=== PATIENT | male | born 1940 | race African-American/Black ===

== ENCOUNTER 2016-12-03 15:53 | Inpatient (IN) | payer OTHER ==
[2016-12-03 15:58] VITALS: BMI 29.7
--- NOTE | 2016-12-03 16:56 | PDOC ---
Attending Attestation - Resident Resident Name: Amie Kirk - ED Attending Attestation I have performed the following: I have examined & evaluated the patient, The case was reviewed & discussed with the resident, I agree w/resident's findings & plan, Exceptions are as noted - HPI HPI: 76 yo M history CAD presents with B/L leg pain for the past ~1 week. He states that the pain was sudden onset, severe, limiting him from walking. He has been using a rolling chair in his house to get around. He denies weakness. He has numbness to the toes of both feet. Denies any trauma. No low back pain, chest pain, SOB. No prior similar symptoms. - Physicial Exam PE: GENERAL: Awake, alert, and fully oriented, in no acute distress HEAD: No signs of trauma EYES: PERRLA, EOMI, sclera anicteric, conjunctiva clear ENT: Auricles normal inspection, hearing grossly normal, nares patent, oropharynx clear without exudates. Moist mucosa NECK: Normal ROM, supple, no lymphadenopathy, JVD, or masses LUNGS: Breath sounds equal, clear to auscultation bilaterally. No wheezes, and no crackles HEART: Regular rate and rhythm, normal S1 and S2, no murmurs, rubs or gallops ABDOMEN: Soft, nontender, normoactive bowel sounds. No guarding, no rebound. No masses EXTREMITIES: Normal range of motion. Lower legs with no visible hair, +multiple varicosities visualized. Feet are tender to palpation, cool to the touch. Faint B/L DP pulses. No clubbing or cyanosis. No erythema. NEUROLOGICAL: Cranial nerves II through XII grossly intact. Normal speech, normal gait SKIN: Warm, Dry, normal turgor, no rashes or lesions noted. - Medical Decision Making Patient with prior CAD, now presents with severe leg pain, unable to ambulate. Noted to have signs of PVD/PAD. Will obtain labs, venous and arterial dopplers.
--- NOTE | 2016-12-03 17:29 | PDOC ---
History of Present Illness - General Chief Complaint: Pain Stated Complaint: BI-LATERAL LEG PAIN Time Seen by Provider: 12/03/16 16:16 History Source: Patient Exam Limitations: No Limitations - History of Present Illness Initial Comments: 12/03/16 17:29 CC: 5 day h/o B/L LE pain and difficulty ambulating Patient is a 76 y.o. male with a PMH of [place] who presents today c/o of a non- qualifiable, /10 constant B/L LE pain. Patient states he went to change his shoes on Monday, sat down and he felt B/L LE pain that has persisted since that time. Patient states he has been using a dining room chair with wheels to ambulate around his house (patient lives alone) and decided to come to the hospital today because the pain became unbearable. Patient denies any known trauma, shortness of breath, chest pain, nausea, vomiting, abdominal pain. Past surgical: s/p cardiac cath @ [facility] (04/2016) Social: (+) nicotine - 10 cigarettes daily, (+) alcohol 2-3 pints hard liquor monthly; (-) marijuana/cocaine/heroin NKDA Patient does not have established PCP Past History - Past Medical History Allergies/Adverse Reactions: Allergies Allergy/AdvReac Type Severity Reaction Status Date / Time No Known Allergies Allergy Verified 12/03/16 15:54 Home Medications: Ambulatory Orders NK [No Known Home Medication] 12/03/16 Diabetes: (BORDERLINE) HTN: (BORDERLINE) Other medical history: PT DENIES. - Psycho/Social/Smoking Cessation Hx Anxiety: No Suicidal Ideation: No Smoking History: Never smoked Have you smoked in the past 12 months: Yes If you are a former smoker, when did you quit?: 04.06.16 Information on smoking cessation initiated: No Hx Alcohol Use: No Drug/Substance Use Hx: No Substance Use Type: None Review of Systems - Review of Systems Constitutional: No: Chills, Diaphoresis, Fever, Unexplained wgt Loss HEENTM: No: Blurred Vision, Double Vision, Tinnitus, Hearing Loss Respiratory: No: Cough, Orthopnea, Shortness of Breath, Hemoptysis Cardiac (ROS): No: Chest Pain, Edema, Irregular Heart Rate, Lightheadedness, Palpitations ABD/GI: No: Constipated, Diarrhea : No: Burning, Dysuria Musculoskeletal: Yes: Muscle Pain, Muscle Weakness. No: Back Pain, Gout, Joint Pain, Neck Pain Psychiatric: No: Anxiety, Depression All Other Systems: Reviewed and Negative *Physical Exam - Vital Signs Last Vital Signs Temp Pulse Resp BP Pulse Ox 98.1 F 84 18 150/74 98 12/03/16 15:55 12/03/16 15:55 12/03/16 15:55 12/03/16 15:55 12/03/16 15:55 - Physical Exam General Appearance: Yes: Nourished, Obese HEENT: positive: EOMI, ESTEPHANIE Neck: positive: Trachea midline, Supple Respiratory/Chest: positive: Lungs Clear, Normal Breath Sounds Cardiovascular: positive: Regular Rate, S1, S2, Irregularly Irregular Gastrointestinal/Abdominal: positive: Flat, Soft Extremity: positive: Other (Weak < 2+ pedal pulses B/L; Cool LE B/L ) Integumentary: positive: Cold Neurologic: positive: Fully Oriented, Alert ED Treatment Course - LABORATORY CBC & Chemistry Diagram: 12/03/16 18:45 12/03/16 18:45 Medical Decision Making - Medical Decision Making 12/03/16 22:02 Patient is a 76 y.o. male with a PMH of MN (04/2016) and limited primary care who presents to our ED c/o 5 day h/o B/L LE pain and inability to ambulate. On PE patient's B/L LE were cool to palpation and showed weak pulses. Initial differential included vascular occlusion vs. disc herniation (less likely given no neurological deficit, no spinal tenderness). As patient had a h/o MN, cardiac work-up was also initiated with Troponin at 0.63 and EKG showing HR 98, A fib with poor R wave progression in the anterior chest leads. Arterial DVT revealed (1) R sided occlusion from proximal superficial femoral artery and (2) L sided occlusion from the distal superficial femoral artery. Patient was given a Heparin bolus and subsequent drip and admitted to inpatient medicine service, telemetry floor. *DC/Admit/Observation/Transfer Diagnosis at time of Disposition: Vascular occlusion - Discharge Dispostion Admit: Yes - Attestations Physician Attestion: 12/03/16 22:42 I, Dr. Amie Kirk, attest all medical decision making reflected in this note is under my auspices.
[2016-12-03] MEDS ORDERED: ACETAMINOPHEN 1000 MG/100 ML VIAL (NON FORMULARY) IVPB ONE (17:58)
[2016-12-03 18:52] LABS: BASOPHIL 0.6 % (0-2.0); MCH 30.9 pg (25.7-33.7); MCHC 33.5 g/dl (32.0-35.9); MEAN CELL VOLUME 92.4 fl (80-96); MEAN PLT VOLUME 8.2 fl (7.5-11.1); PLATELET COUNT 375 K/MM3 (134-434); RDW 14.9 % (11.9-15.9); WHITE BLOOD COUNT 10.7 K/mm3 (4.0-10.0)
[2016-12-03 19:18] LABS: ALBUMIN 2.8 g/dl (3.4-5.0); ALK PHOS 75 U/L (45-117); ANION GAP 6 (8-16); BILIRUBIN,TOTAL 0.4 mg/dL (0.2-1.0); CALCIUM 8.7 mg/dL (8.5-10.1); CO2 31 mmol/L (21-32); CREATININE 0.9 mg/dL (0.7-1.3); GLUCOSE,RANDOM 100 mg/dL (74-106); SGOT/AST 17 U/L (15-37); SGPT/ALT 21 U/L (12-78); TOT PROT 7.2 g/dl (6.4-8.2)
[2016-12-03 19:46] LABS: TROPONIN I 0.63 ng/ml (0.00-0.05)
[2016-12-03] MEDS ORDERED: ASPIRIN 325 MG TABLET PO ONE (19:55)
[2016-12-03] MEDS ORDERED: HEPARIN NA (PORCINE) 5,000 UNITS/ML 1ML VIAL SQ ONE (20:45)
[2016-12-03] MEDS ORDERED: ASPIRIN 325 MG TABLET ONE (20:46)
[2016-12-03] MEDS ORDERED: HEPARIN NA (PORCINE) 5,000 UNITS/ML 1ML VIAL ONE (20:50)
[2016-12-03] MEDS ORDERED: HEPARIN NA (PORCINE) 5,000 UNITS/ML 1ML VIAL IVPUSH PRN (21:10)
[2016-12-03] MEDS ORDERED: HEPARIN INFUSION - 500 ML IVPB ONE (22:01)
[2016-12-03] MEDS ORDERED: ACETAMINOPHEN INJECTION 100 ML IVPB ONE (22:01)
[2016-12-03] MEDS: HEPARIN - 25,000 UNIT in SODIUM CHLORIDE 495 ML IV SCH (22:22)
--- NOTE | 2016-12-04 00:02 | HP ---
CHIEF COMPLAINT: R leg pain PCP: Nia HISTORY OF PRESENT ILLNESS: Pt is a 76M with PMH ischemic cardiomyopathy (moderate global hypokinesis & EF 38% by echo), cardiac cath, afib who presents to ED with constant 10/10 nonradiating intense pain of the right leg from the knee to the ankle which completely prevents him from walking. Pain is not associated with time of day and has not improved with home or hospital therapy including IV tylenol, and dilaudid. Pt has a recent admission ER course was notable for: (1) leukocytosis, pos trop, LE U/S, CXR, (2)Heparin protocol, IV tylenol, ASA (3) Recent Travel: denies PAST MEDICAL HISTORY: Migraine, Hydrocele, Hernia, ischemic cardiomyopathy (moderate global hypokinesis & EF 38% by echo), cardiac cath, afib PAST SURGICAL HISTORY: as above Social History: Smokin cigarettes/day Alcohol: 1 quart vodka every 2 weeks Drugs: denies Family History: NC in father at 60 Allergies No Known Allergies Allergy (Verified 12/03/16 15:54) HOME MEDICATIONS: Home Medications Medication Instructions Recorded NK [No Known Home Medication] 12/03/16 REVIEW OF SYSTEMS CONSTITUTIONAL: Absent: fever, chills, diaphoresis, generalized weakness, malaise, loss of appetite, weight change HEENT: Absent: rhinorrhea, nasal congestion, throat pain, throat swelling, difficulty swallowing, mouth swelling, ear pain, eye pain, visual changes CARDIOVASCULAR: Absent: chest pain, syncope, palpitations, irregular heart rate, lightheadedness , peripheral edema RESPIRATORY: Absent: cough, shortness of breath, dyspnea with exertion, orthopnea, wheezing, stridor, hemoptysis GASTROINTESTINAL: Absent: abdominal pain, abdominal distension, nausea, vomiting, diarrhea, constipation, melena, hematochezia GENITOURINARY: Absent: dysuria, frequency, urgency, hesitancy, hematuria, flank pain, genital pain MUSCULOSKELETAL: right leg pain Absent: myalgia, arthralgia, joint swelling, back pain, neck pain SKIN: Absent: rash, itching, pallor HEMATOLOGIC/IMMUNOLOGIC: Absent: easy bleeding, easy bruising, lymphadenopathy, frequent infections ENDOCRINE: Absent: unexplained weight gain, unexplained weight loss, heat intolerance, cold intolerance NEUROLOGIC: right big toe tingling Absent: headache, focal weakness or paresthesias, dizziness, unsteady gait, seizure, mental status changes, bladder or bowel incontinence PSYCHIATRIC: Absent: anxiety, depression, suicidal or homicidal ideation, hallucinations. PHYSICAL EXAMINATION Vital Signs - 24 hr 12/03/16 23:38 Temperature 98.3 F Pulse Rate [ 80 Apical] Respiratory 20 Rate Blood Pressure 142/76 [Left Arm] O2 Sat by Pulse 100 Oximetry (%) GENERAL: Awake, alert, and fully oriented, in no acute distress. HEAD: Normal with no signs of trauma. EYES: Pupils equal, round and reactive to light, extraocular movements intact, sclera anicteric, conjunctiva clear. No lid lag. EARS, NOSE, THROAT: nares patent, oropharynx clear without exudates. Moist mucous membranes. NECK: Normal range of motion, supple without lymphadenopathy, JVD, or masses. LUNGS: Breath sounds equal, clear to auscultation bilaterally. No wheezes, and no crackles. No accessory muscle use. HEART: Regular rate and rhythm, normal S1 and S2 without murmur, rub or gallop. ABDOMEN: Soft, nontender, not distended, normoactive bowel sounds, no guarding, no rebound, no masses. No hepatomegaly or splenomegaly. MUSCULOSKELETAL: Normal range of motion at all joints. No bony deformities or tenderness. No CVA tenderness. UPPER EXTREMITIES: 2+ pulses, warm, well-perfused. No cyanosis. No clubbing. No peripheral edema. LOWER EXTREMITIES: pain on palpation of RLE. 1+ pulses, cool, slow capillary refill. No calf tenderness. No peripheral edema. NEUROLOGICAL: Cranial nerves II-XII intact. Normal speech. Normal gait. PSYCHIATRIC: Cooperative. Good eye contact. Appropriate mood and affect. SKIN: Warm, dry, normal turgor, no rashes or lesions noted, normal capillary refill. ASSESSMENT/PLAN: Pt is a 76M with PMH ischemic cardiomyopathy (moderate global hypokinesis & EF 38% by echo), cardiac cath, afib who presents to ED with constant 10/10 nonradiating intense pain of the right leg from the knee to the ankle which completely prevents him from walking. #Leg arterial occlusion -cold feet, diminished distal pulses -pending U/S -Heparin -Morphine -ASA -Vascular consult #Afib -Unknown duration -Cardio consult -on AC with Heparin -Echo result from Apr: moderate global hypokinesis, EF 38% #HTN -Diovan #FEN -not on fluid -lytes wnl -chol/fat controlled diet #dispo : admit to inpt tele for afib and vascular disease Kevan Sutherland MD PGY-1 Visit type - Emergency Visit Emergency Visit: No - New Patient This patient is new to me today: No - Critical Care Critical Care patient: No
[2016-12-04] MEDS: morphine CARPU-JECT 4 MG/1 ML DISP.SYRIN IVPUSH PRN ×2 (01:33→07:51)
--- NOTE | 2016-12-04 04:54 | PN ---
Teaching Attending Note Name of Resident: Kevan Sutherland ATTENDING PHYSICIAN STATEMENT I saw and evaluated the patient. I reviewed the resident's note and discussed the case with the resident. I agree with the resident's findings and plan as documented. SUBJECTIVE: 76 year old male that presents to the ED on 12/03/16 c/o inability to ambulate and secondary to right lower extremity pain that has started 2-3 days ago and now has increased in intensity to 10/10 now. It is constant and exacerbated by walking . He denies prior episodes of pain like this before. His medical history is significant for most recent hospitalization in April 2016 due to acute diastolic congestive heart failure and NSTEMI secondary to uncontrolled a flutter. At that time he underwent cardiac SHANE with cardioversion and was planned for discharge on oral anticoagulants due to high CHADS. However patient denies taking anticoagulants at this time. Initial workup during this ER visit revealed decreased LE pulses and dopplers confirmed R sided occlusion from proximal superficial femoral artery + L sided occlusion from the distal superficial femoral artery. Patient was given a Heparin bolus and subsequent drip and admitted to inpatient medicine service, telemetry. PMH A Flutter CHF HTN Smoking PAST SURGICAL HISTORY: SHANE / cardioversion Social History: Smoking: Smoke for 62 years, 1/2 ppd Alcohol: 3-4 x /month, Drugs: pt denies Family History: mother in her late 60s d/t cancer, had asthma father in his 60s, [place] brother young in a fire 2 sisters alive and well Allergies No Known Allergies Allergy (Verified 04/12/16 00:59) OBJECTIVE: Vital Signs Temperature 97.9 F 12/04/16 02:00 Pulse Rate 84 12/04/16 02:00 Respiratory Rate 20 12/04/16 02:00 Blood Pressure 118/75 12/04/16 02:00 O2 Sat by Pulse Oximetry (%) 96 12/04/16 00:24 EARS, NOSE, THROAT: nares patent, oropharynx clear without exudates. Moist mucous membranes. NECK: Normal range of motion, supple without lymphadenopathy, JVD, or masses. LUNGS: Breath sounds equal, clear to auscultation bilaterally. No wheezes, and no crackles. No accessory muscle use. HEART:irregular ABDOMEN: Soft, nontender, not distended, normoactive bowel sounds, no guarding, no rebound, no masses UPPER EXTREMITIES: 2+ pulses, warm, well-perfused. No cyanosis. No clubbing. No peripheral edema. LOWER EXTREMITIES: pain on palpation of RLE. 1+ pulses, cool, slow capillary refill. CBC, BMP 12/03/16 18:45 12/03/16 18:45 EKG - a flutter ECHO - 04/26 - severe LV hypertrophy, moderately reduced systolic function ASSESSMENT AND PLAN: 1. Acute limb ischemia - likely secondary to arterial embolus secondary to ongoing atrial flutter /afib, lack of anticoagulation therapy and possibly formation of an atrial thrombus . Peripheral arterial thrombosis is less likely . - Heparin drip was initiated in ED and will continue - reperfusion per vascular surgery ( was contacted by ER as per ED resident ) will follow - Pain control provided - ECHO 2. NSTEMI / elevated troponin - this is likely to A flutter/possible atrial thrombus however CAD/ischemia can not be excluded completely . Patient has no chest pain . Rate is controlled. There is a very low yield in " trending troponins' as it would not change the management , however it will be ordered per hospital policy . - ECHO to be repeated - cardiology evaluation - heparin drip - telemetry - coreg 3. A flutter / A fib - rate controlled. - Will need lifelong coag ( probable [id number] score between 4-5)
--- NOTE | 2016-12-04 08:17 | PN ---
Progress Note (short form) - Note Progress Note: Chief Complaint: Events noted, notes reviewed, acute onset bilateral leg discomfort with evidence of vascular occlusion, denies any chest pain or dyspnea , atypical atrial flutter/atrial fibrillation noted History of Present Illness: Seen and examined on telemetry. Full consult dictated - Current Medication List Current Medications Aspirin (Ecotrin -) 81 mg PO DAILY [facility] Carvedilol (Coreg -) 6.25 mg PO BID [facility] Heparin Sodium (Porcine) (Heparin -) 5,000 unit IVPUSH PRN PRN PRN Reason: Heparin Heparin Sodium (Porcine) 25, (000 unit/ Sodium Chloride) 500 mls @ 16 mls/hr IV TITR CHELLY; 800 UNIT/HR PRN Reason: Protocol Last Admin: 12/03/16 22:22 Dose: 16 mls/hr Morphine Sulfate (Morphine Injection -) 2 mg IVPUSH Q4H PRN PRN Reason: PAIN Last Admin: 12/04/16 07:51 Dose: 2 mg Valsartan (Diovan -) 80 mg PO DAILY [facility] Review of Systems Constitutional: denies: Chills Cardiovascular: As noted above Respiratory: denies: Cough or Sputum Production Gastrointestinal: denies: Nausea, Vomiting, Diarrhea, Constipation or Abdominal Pain Musculoskeletal: reports: Bilateral Leg Discomfort Neurological: denies: Dizziness or Headache - Objective Vital Signs: Last Vital Signs Temp Pulse Resp BP Pulse Ox 97.6 F 75 20 144/91 96 12/04/16 06:00 12/04/16 06:00 12/04/16 06:00 12/04/16 06:00 12/04/16 00:24 Intake & Output 12/01/16 12/02/16 12/03/16 12/04/16 23:59 23:59 23:59 23:59 Intake Total 112 Balance 112 Weight 225 lb 215 lb 0.8 oz Neck: Supple Negative JVD No Bruit Cardiovascular: S1 S2 Irregularly Irregular Grade 2/6 Systolic Murmur Chest: Clear to A&P Bilaterally Gastrointestinal: Soft Benign Normal Bowel Sounds Ext: No Edema No Palpable Distal Pulses 1+ Bilateral femoral Pulses Labs: CBC, BMP 12/03/16 18:45 Hepatic Panel Total Bilirubin 0.4 mg/dL (0.2-1.0) D 12/03/16 18:45 AST 17 U/L (15-37) D 12/03/16 18:45 ALT 21 U/L (12-78) D 12/03/16 18:45 Alkaline Phosphatase 75 U/L (45-117) D 12/03/16 18:45 Albumin 2.8 g/dl (3.4-5.0) L 12/03/16 18:45 Troponin, BNP 12/03/16 12/04/16 18:45 03:50 Troponin I 0.63 H* D 0.58 H Assessment/Plan ASSESSMENT: 1. Bilateral leg discomfort with evidence of vascular occlusion, most likely embolic disease related to PAF with [id number] score of 6 on Heparin currently , on no therapy at home, poor compliance with therapy administration and medical F/U 2. CAD with evidence of demand ischemic injury, non obstructive CAD on [facility] coronary angiogrpahy angina pectoris 3. LV systolic/diastolic dysfunction related to apical hypertrophic cardio- myopathy, chronic class I-II NYHA classification, compensated/euvolemic 4. Paroxysmal atypical atrial flutter/atrial tachycardia post cardioversion [id number] score of 6, recurrent arrhythmia, will require skilled nursing A/C 5. HTN 6. History of CKD 7. Poor compliance with medical therapy administration and medical F/U 8. Tobacco abuse PLAN: 1. Continue Heparin pending vascular evaluation and intervention and will require skilled nursing A/C with Coumadin or NOAC's considering the above noted presentation and [id number] score 6 2. Continue Carvedilol and titrate as tolerated 3. Continue Diovan and titrate as tolerated 4. Continue ASA 5. Add Lipitor 6. Recommend urgent vascular evaluation Dr. Nathalia Rico contacted and will evaluate the patient for urgent angiography and possible intervention 7. Counselled smoking cessation and abstinence 8. Echocardiography to evaluate LV size and function Discussed in detail with the patient Mabel Rolle MD
[2016-12-04 08:34] LABS: ALBUMIN 2.4 g/dl (3.4-5.0); ALK PHOS 65 U/L (45-117); ANION GAP 10 (8-16); BILIRUBIN,TOTAL 0.5 mg/dL (0.2-1.0); CO2 25 mmol/L (21-32); CREATININE 0.9 mg/dL (0.7-1.3); GLUCOSE,RANDOM 94 mg/dL (74-106); MAGNESIUM 2.1 mg/dL (1.8-2.4); PHOSPHOROUS 4.1 mg/dL (2.5-4.9); SGOT/AST 15 U/L (15-37); SGPT/ALT 17 U/L (12-78); TOT PROT 6.1 g/dl (6.4-8.2)
[2016-12-04] MEDS: ASPIRIN COATED 81 MG TABLET.EC PO SCH (10:51)
[2016-12-04] MEDS: CARVEDILOL 6.25 MG TABLET (FP) PO SCH ×2 (10:51→21:17)
[2016-12-04] MEDS: VALSARTAN 80 MG TABLET (UD) PO SCH (10:51)
--- NOTE | 2016-12-04 11:13 | PN ---
Physical Exam: SUBJECTIVE: Patient seen and examined. He has pain in his right lower leg, but it is less severe. OBJECTIVE: Vital Signs Period Temp Pulse Resp BP Sys/Ariza Pulse Ox Last 24 Hr 97.6 F-98.7 F 75-84 20-20 104-144/59-91 96-100 GENERAL: The patient is awake, alert, and fully oriented, in no acute distress. LUNGS: Breath sounds equal, clear to auscultation bilaterally, no wheezes, no crackles, no accessory muscle use. HEART: Irregularly irregular, (+) 2/6 systolic murmur. ABDOMEN: Soft, nontender, nondistended, normoactive bowel sounds, no guarding, no rebound, no hepatosplenomegaly, no masses. EXTREMITIES: No edema. RLE cool from mid calf distally and right foot is cold. LLE cool from distal calf to foot. PULSES: 1+ femoral B/L. B/L popliteal and B/L DP not palpable. Laboratory Results - last 24 hr 12/04/16 12/04/16 12/04/16 03:50 06:30 10:26 PTT (Actin FS) 32.3 D Sodium 140 Potassium 4.2 Chloride 105 Carbon Dioxide 25 Anion Gap 10 BUN 17 Creatinine 0.9 Creat Clearance w eGFR > 60 Random Glucose 94 Calcium 8.0 L Phosphorus 4.1 D Magnesium 2.1 Total Bilirubin 0.5 D AST 15 ALT 17 Alkaline Phosphatase 65 Troponin I 0.58 H Total Protein 6.1 L Albumin 2.4 L Active Medications Generic Name Dose Route Start Last Admin Trade Name Freq PRN Reason Stop Dose Admin Aspirin 81 mg 12/04/16 10:00 12/04/16 10:51 Ecotrin - PO 81 mg DAILY CHELLY Administration Carvedilol 6.25 mg 12/04/16 10:00 12/04/16 10:51 Coreg - PO 6.25 mg BID CHELLY Administration Heparin Sodium (Porcine) 5,000 unit 12/03/16 21:10 Heparin - IVPUSH PRN PRN Heparin Heparin Sodium (Porcine) 25, 500 mls @ 16 mls/hr 12/03/16 21:15 12/03/16 22:22 000 unit/ Sodium Chloride IV 16 mls/hr TITR CHELLY Administration Protocol 800 UNIT/HR Morphine Sulfate 2 mg 12/03/16 23:29 12/04/16 07:51 Morphine Injection - IVPUSH 2 mg Q4H PRN Administration PAIN Valsartan 80 mg 12/04/16 10:00 12/04/16 10:51 Diovan - PO 80 mg DAILY CHELLY Administration ASSESSMENT/PLAN: This is a 76 year old man with a history of hypertrophic cardiomyopathy, non- obstructive CAD, chronic systolic/diastolic HF, HTN, PAF who presented to the ER with right leg pain. 1. RLE pain secondary to PAD, possible thromboembolic disease - Vascular surgery consult appreciated - Continue heparin IV - CTA of aorta with LE runoff ordered 2. Paroxysmal atrial fibrillation/flutter - Patient now reports he did not start taking Eliquis secondary to ongoing dental work - Continue Coreg, heparin IV - Will need long-term anticoagulation - will hold off on starting oral medication in case surgery is needed 3. CAD, non-obstructive - Continue aspirin, Coreg - Lipitor started 4. Chronic systolic and diastolic heart failure - Stable - Continue Coreg, Diovan 5. Hypertrophic cardiomyopathy 6. HTN - Continue Coreg, Diovan 7. Nicotine dependence - Discussed smoking cessation Visit type - Emergency Visit Emergency Visit: Yes ED Registration Date: 12/03/16 Care time: The patient presented to the Emergency Department on the above date and was hospitalized for further evaluation of their emergent condition. - New Patient This patient is new to me today: Yes Date on this admission: 12/04/16 - Critical Care Critical Care patient: No - Discharge Referral Referred to [facility] Med P.C.: No
--- NOTE | 2016-12-04 11:22 | CONSULT ---
Consult - Past Surgical History Past Surgical History: Yes: Hernia Repair - Alcohol/Substance Use Hx Alcohol Use: Yes (SOCIALLY) History of Substance Use: reports: None - Smoking History Smoking history: Current every day smoker Have you smoked in the past 12 months: Yes Aproximately how many cigarettes per day: 10 If you are a former smoker, when did you quit?: 04.06.16 Home Medications - Allergies Allergies/Adverse Reactions: Allergies Allergy/AdvReac Type Severity Reaction Status Date / Time No Known Allergies Allergy Verified 12/03/16 15:54 - Home Medications Home Medications: Ambulatory Orders NK [No Known Home Medication] 12/03/16 Physical Exam Vital Signs: Vital Signs Temperature 97.6 F 12/04/16 06:00 Pulse Rate 75 12/04/16 06:00 Respiratory Rate 20 12/04/16 06:00 Blood Pressure 144/91 12/04/16 06:00 O2 Sat by Pulse Oximetry (%) 96 12/04/16 00:24 Labs: CBC, BMP 12/04/16 06:30 Assessment/Plan Vascular Surgery Patient is a 76 y.o. male with a PMH of [place] who presented with pain in both legs since last monday. Pt went ahead and placed nury cerda to his legs to make them feel better. He has afib, but does not take any meds for it -- because he has extensive dental work being done. He has a script for eliquis, but he never took it. Pt is a big time smoker - smoking 1/2 a pack a day for 60 years. Past surgical: s/p cardiac cath @ [facility] (04/2016) Social: (+) nicotine - 10 cigarettes daily, (+) alcohol 2-3 pints hard liquor monthly; (-) marijuana/cocaine/heroin NKDA Patient does not have established PCP Past History - Past Medical History Allergies/Adverse Reactions: Allergies Allergy/AdvReac Type Severity Reaction Status Date / Time No Known Allergies Allergy Verified 12/03/16 15:54 Home Medications: Ambulatory Orders NK [No Known Home Medication] 12/03/16 Diabetes: (BORDERLINE) HTN: (BORDERLINE) Other medical history: PT DENIES. - Psycho/Social/Smoking Cessation Hx Anxiety: No Suicidal Ideation: No Smoking History: Never smoked Have you smoked in the past 12 months: Yes If you are a former smoker, when did you quit?: 04.06.16 Information on smoking cessation initiated: No Hx Alcohol Use: No Drug/Substance Use Hx: No Substance Use Type: None PE Head - NC/AT Lung - CTA Bl Heart - RRR abd - soft,nt,nd ext - warm to distal calf, then cool. No mottling. Palpable femoral pulses. Motor and sensory intact in both limbs. A/P Acute on chronic PAD 1. Will order CTA 2. Cont IV heparin. Garrett Rico DO
[2016-12-04] MEDS ORDERED: HEPARIN NA (PORCINE) 5,000 UNITS/ML 1ML VIAL ONE (12:07)
--- NOTE | 2016-12-04 14:32 | CONS ---
DATE OF CONSULTATION: 12/04/2016 Consultation requested by hospitalist. CHIEF COMPLAINT: Bilateral leg discomfort, evaluation of cardiac arrhythmia, elevated troponin I level. A 76-year-old male of descent, with known history of coronary artery disease, nonobstructive coronary artery disease on coronary angiography April 20, 2016, angina pectoris, systolic/diastolic left ventricular dysfunction with chronic class 1 to 2 [place] [employer] classification left ventricular failure, apical hypertrophic cardiomyopathy on the above-noted cardiac catheterization, paroxysmal atypical atrial flutter, atrial tachycardia, post cardioversion, hypertensive cardiovascular disease, chronic kidney disease, who apparently took it upon himself to discontinue all therapies including anticoagulation therapy, who presented to [facility] with 4 to 5 days of bilateral leg discomfort, right greater than the left. Patient reported sudden onset of bilateral leg discomfort as noted above and, in addition, coldness. Patient was unable to ambulate. Upon arrival to the emergency room, patient was noted to have cold legs, right greater than the left, with absent distal pulses. Vascular evaluation included duplex examination, which revealed evidence of arterial occlusion bilaterally. Patient denied any chest discomfort. Patient reports dyspnea with moderate physical exertion. Patient denies any orthopnea, paroxysmal nocturnal dyspnea, or peripheral edema. Patient denies any palpitation, dizziness, lightheadedness, or syncope. Patient, in addition, in the emergency room was noted to have evidence of atrial fibrillation/atypical atrial flutter. PAST MEDICAL HISTORY: Nonobstructive coronary artery disease, angina pectoris, systolic/diastolic left ventricular dysfunction, apical hypertrophic cardiomyopathy with chronic class 1 to 2 [place] [employer] classification left ventricular failure, paroxysmal atypical atrial flutter, atrial tachycardia post cardioversion, CHADS-VASc score of 5 to 6, hypertensive cardiovascular disease, history of chronic kidney disease, hernia repair, hydrocele repair. SOCIAL HISTORY: A smoker. FAMILY HISTORY: Positive coronary artery disease. ALLERGIES: None reported. MEDICAL THERAPY AT HOME: None. As noted above, patient discontinued all therapies. REVIEW OF SYSTEMS: Head and Neck: Denies headache, photophobia, blurring of vision. Respiratory: No cough or sputum production. Cardiovascular: As noted above. Gastrointestinal: Denies nausea, vomiting, diarrhea, abdominal discomfort. Genitourinary: No symptoms reported. Musculoskeletal: Bilateral leg discomfort. PHYSICAL EXAMINATION: Vital Signs: Blood pressure is 144/91 mmHg. Pulse rate is 75 beats per minute, irregularly irregular. Head and Neck: Pupils equal, react to light and accommodation. Extraocular muscles are intact. Anicteric sclerae. Negative JVD. No bruit appreciated. Chest: Clear to auscultation and percussion. Cardiovascular: S1, S2 irregularly irregular. Grade 2/6 systolic apical murmur. Abdomen: Soft, benign. Normoactive bowel sound. Extremities: No edema. No palpable distal pulses. 1+ bilateral femoral pulses. No calf tenderness. EKG reveals atypical atrial flutter, atrial tachycardia, with left axis deviation, poor R-wave progression, and nonspecific interventricular conduction delay. Chest x-ray report was noted. Vascular studies completed. Report not available, but from the emergency room note, evidence of bilateral occlusion. CBC revealed white cell count 10.7, hemoglobin 14.4, platelet count 375. Basic metabolic profile revealed sodium 140, potassium 4.2, BUN 17, creatinine 0.7, glucose 94. CPK 282. Troponin I 0.63, repeat 0.58. ASSESSMENT: 1. Bilateral leg discomfort with evidence of bilateral vascular occlusion, most likely embolic disease related to the above-noted paroxysmal atrial flutter/fibrillation, CHADS-VASc score of 6, currently on heparin therapy, on no therapy at home. Poor compliance with therapy administration and medical followup. 2. Coronary artery disease with evidence of most likely related to the above-noted arrhythmia. History of nonobstructive coronary artery disease on right and left heart cardiac catheterization and coronary angiography, angina pectoris. 3. Left ventricular systolic/diastolic dysfunction, apical hypertrophic cardiomyopathy, with chronic class 1 to 2 [place] [employer] classification left ventricular failure, compensated/euvolemic. 4. Paroxysmal apical atrial flutter, atrial tachycardia, post cardioversion, CHADS-VASc score of 6, recurrent arrhythmia. Patient will require long-term anticoagulation. 5. Hypertensive cardiovascular disease. 6. History of chronic kidney disease. 7. Poor compliance with medical therapy administration and medical followup. 8. History of tobacco abuse. PLAN: 1. Continuation of heparin therapy, pending vascular evaluation and intervention, and will require long-term anticoagulation with Coumadin or new oral anticoagulation agent, considering the above-noted presentation and CHADS-VASc score of 6. 2. Carvedilol and titration of dosage as tolerated. 3. Diovan and titration of dosage as tolerated. 4. Aspirin. 5. Statin therapy. 6. Recommend urgent vascular evaluation. Dr. Nathalia Rico was contacted and spoken to. He will evaluate the patient for urgent angiography and possible intervention. 7. Patient was strongly counseled smoking cessation. 8. Echocardiography for evaluation of left ventricular systolic function. Thank you for the kind referral. TRACY JOSE M.D. [id number]
[2016-12-04] MEDS: HEPARIN NA (PORCINE) 5,000 UNITS/ML 1ML VIAL IVPUSH PRN (20:00)
[2016-12-04] MEDS ORDERED: morphine CARPU-JECT 2 MG/1 ML DISP.SYRIN ONE (20:19)
[2016-12-04] MEDS: morphine CARPU-JECT 2 MG/1 ML DISP.SYRIN IVPUSH PRN (20:26)
--- NOTE | 2016-12-04 20:33 | EKG ---
Test Reason : Blood Pressure : / mmHG Vent. Rate : 098 BPM Atrial Rate : 091 BPM P-R Int : 000 ms QRS Dur : 100 ms QT Int : 368 ms P-R-T Axes : 000 -64 107 degrees QTc Int : 469 ms POOR DATA QUALITY, INTERPRETATION MAY BE ADVERSELY AFFECTED ATRIAL FIBRILLATION LEFT AXIS DEVIATION INFERIOR INFARCT (CITED ON OR BEFORE 12-APR-2016) ANTERIOR INFARCT (CITED ON OR BEFORE 12-APR-2016) ABNORMAL ECG WHEN COMPARED WITH ECG OF 14-APR-2016 11:20, ATRIAL FIBRILLATION HAS REPLACED SINUS RHYTHM QUESTIONABLE CHANGE IN INITIAL FORCES OF LATERAL LEADS NONSPECIFIC T WAVE ABNORMALITY, WORSE IN LATERAL LEADS Confirmed by MILY TROTTER MD ([id number]) on 12/04/2016 8:33:28 PM Referred By: Confirmed By:MILY TROTTER MD
[2016-12-04] MEDS: HEPARIN - 25,000 UNIT in SODIUM CHLORIDE 495 ML IV SCH (21:17)
[2016-12-04] MEDS: ATORVASTATIN CA 40 MG TABLET (FP) PO SCH (21:17)
[2016-12-05] MEDS: morphine CARPU-JECT 2 MG/1 ML DISP.SYRIN IVPUSH PRN ×4 (01:04→20:44)
[2016-12-05] MEDS: HEPARIN - 25,000 UNIT in SODIUM CHLORIDE 495 ML IV SCH ×6 (02:02→23:36)
[2016-12-05] MEDS: HEPARIN NA (PORCINE) 5,000 UNITS/ML 1ML VIAL IVPUSH PRN ×3 (03:18→17:38)
[2016-12-05 07:18] LABS: MCH 30.6 pg (25.7-33.7); MCHC 33.1 g/dl (32.0-35.9); MEAN CELL VOLUME 92.4 fl (80-96); MEAN PLT VOLUME 9.2 fl (7.5-11.1); PLATELET COUNT 303 K/MM3 (134-434); RDW 14.8 % (11.9-15.9)
[2016-12-05 07:44] LABS: ANION GAP 8 (8-16); CALCIUM 7.9 mg/dL (8.5-10.1); CO2 27 mmol/L (21-32); CREATININE 0.8 mg/dL (0.7-1.3); GLUCOSE,RANDOM 90 mg/dL (74-106)
--- NOTE | 2016-12-05 08:52 | PN ---
Progress Note (short form) - Note Progress Note: VAscular Surgery awaiting official cTa read Looking at it - right sfa closed from origin, reconstitutes in tibial arteries. Left sfa closed in its mid portion and reconstitutes in tibial arteries. Will need angiogram, possible open thrombectomy. Garrett Rico DO
[2016-12-05] MEDS: CARVEDILOL 6.25 MG TABLET (FP) PO SCH ×2 (09:30→21:34)
[2016-12-05] MEDS: VALSARTAN 80 MG TABLET (UD) PO SCH (09:30)
--- NOTE | 2016-12-05 10:54 | PN ---
Progress Note, Physician Chief Complaint: Events noted Complains of left lower extremity pain History of Present Illness: Patient was seen and examined. Awake and alert. Chart was reviewed Denies chest pain, SOB or palpitations As outlined regarding lower extremity pain - Current Medication List Current Medications: Active Medications Aspirin (Ecotrin -) 81 mg PO DAILY [facility] Last Admin: 12/04/16 10:51 Dose: 81 mg Atorvastatin Calcium (Lipitor -) 40 mg PO HS [facility] Last Admin: 12/04/16 21:17 Dose: 40 mg Carvedilol (Coreg -) 6.25 mg PO BID [facility] Last Admin: 12/05/16 09:30 Dose: 6.25 mg Heparin Sodium (Porcine) (Heparin -) 5,000 unit IVPUSH PRN PRN PRN Reason: Heparin Last Admin: 12/04/16 12:12 Dose: 5,000 unit Heparin Sodium (Porcine) (Heparin -) 1,000 unit IVPUSH PRN PRN PRN Reason: Heparin Last Admin: 12/05/16 08:36 Dose: 1,000 unit Heparin Sodium (Porcine) 25, (000 unit/ Sodium Chloride) 500 mls @ 16 mls/hr IV TITR CHELLY; 800 UNIT/HR PRN Reason: Protocol Last Admin: 12/05/16 08:36 Dose: 25 mls/hr Morphine Sulfate (Morphine Injection -) 2 mg IVPUSH Q4H PRN PRN Reason: PAIN Last Admin: 12/05/16 08:40 Dose: 2 mg Pneumococcal 13-Valent Conj Vacc (Prevnar 13 Syringe -) 0.5 ml IM .ONCE ONE Stop: 12/05/16 11:01 Valsartan (Diovan -) 80 mg PO DAILY [facility] Last Admin: 12/05/16 09:30 Dose: 80 mg - Objective Vital Signs: Vital Signs Temperature 98.1 F 12/05/16 05:40 Pulse Rate 96 H 12/05/16 05:40 Respiratory Rate 20 12/05/16 05:40 Blood Pressure 125/63 12/05/16 05:40 O2 Sat by Pulse Oximetry (%) 97 12/04/16 21:00 Neck: Yes: Supple Cardiovascular: Yes: Regular Rate and Rhythm, Murmur (2/6 SM), S1, S2 Respiratory: Yes: CTA Bilaterally Gastrointestinal: Yes: Normal Bowel Sounds, Soft. No: Tenderness Extremities: Yes: Calf Tenderness, Cool Edema: No Additional Findings/Remarks: Review of Systems Constitutional: denies: Chills Cardiovascular: As noted above Respiratory: denies: Cough or Sputum Production Gastrointestinal: denies: Nausea, Vomiting, Diarrhea, Constipation or Abdominal Pain Musculoskeletal: reports: Bilateral Leg Discomfort Neurological: denies: Dizziness or Headache Labs: CBC, BMP 12/05/16 05:35 12/05/16 05:35 Problem List - Problems (1) Coronary artery disease Code(s): I25.10 - ATHSCL HEART DISEASE OF [place] CORONARY ARTERY W/O ANG PCTRS (2) Hypertrophic cardiomyopathy Code(s): I42.2 - OTHER HYPERTROPHIC CARDIOMYOPATHY (3) Vascular occlusion Code(s): I99.8 - OTHER DISORDER OF CIRCULATORY SYSTEM (4) Atrial flutter Code(s): I48.92 - UNSPECIFIED ATRIAL FLUTTER Qualifiers: Atrial flutter type: atypical Qualified Code(s): I48.4 - Atypical atrial flutter (5) HTN (hypertension) Code(s): I10 - ESSENTIAL (PRIMARY) HYPERTENSION Qualifiers: Hypertension type: essential hypertension Qualified Code(s): I10 - Essential (primary) hypertension (6) Left ventricular systolic dysfunction Code(s): I51.9 - HEART DISEASE, UNSPECIFIED Assessment/Plan 1. Bilateral leg discomfort with evidence of vascular occlusion (occlusion of SFA bilaterally) likely embolic disease related to PAF with [id number] score of 6 on Heparin currently, on no therapy at home, poor compliance 2. CAD with evidence of demand ischemic injury, non obstructive CAD on coronary angiogrpahy angina pectoris 3. LV systolic/diastolic dysfunction related to apical hypertrophic cardiomyopathy, chronic class I-II NYHA classification, compensated/euvolemic 4. Paroxysmal atypical atrial flutter/atrial tachycardia post cardioversion [id number] score of 6, recurrent arrhythmia, will require mcfp A/C 5. HTN 6. History of CKD 7. Poor compliance with medical therapy administration and medical F/U 8. Tobacco abuse PLAN: 1. Continue Heparin pending vascular evaluation and intervention and will require mcfp A/C with Coumadin or NOAC's considering the above noted presentation and [id number] score 6 2. Further vascular evaluation with angiography as per Vascular Surgery and possible thrombectomy 3. Continue Carvedilol and Diovan and titrate as tolerated 4. Continue ASA 5. Continue Lipitor 6. Counselled smoking cessation and abstinence 7. Echocardiography to evaluate LV size and function Further plans are to follow Eliel Sam MD
[2016-12-05] MEDS ORDERED: PNEUMOC 13-VAL CONJ-DIP CRM/PF 0.5 ML DISP.SYRIN IM ONE (11:00)
[2016-12-05] MEDS: ASPIRIN COATED 81 MG TABLET.EC PO SCH (11:53)
--- NOTE | 2016-12-05 18:18 | PN ---
Physical Exam: SUBJECTIVE: Patient seen and examined, EMR consulted. pt reports that pain is worse is worse today compared to yesterday, and still is located from right knee down to toes. He states that he is unable to walk due to the pain. He denies SOB, chest pain, dizziness, nausea, and emesis. OBJECTIVE: Vital Signs Period Temp Pulse Resp BP Sys/Ariza Pulse Ox Last 24 Hr 98 F-98.9 F 86-109 18-20 98-130/52-86 97-98 GENERAL: The patient is awake, alert, and fully oriented, in mild distress. HEAD: Normal with no signs of trauma. EYES: PERRL, extraocular movements intact, sclera anicteric, conjunctiva clear. No ptosis. ENT: Ears normal, nares patent, oropharynx clear without exudates, moist mucous membranes. NECK: Trachea midline, full range of motion, supple. LUNGS: Breath sounds equal, clear to auscultation bilaterally, no wheezes, no crackles, no accessory muscle use. HEART: Regular rate and rhythm, S1, S2 without murmur, rub or gallop. ABDOMEN: Soft, nontender, nondistended, normoactive bowel sounds, no guarding, no rebound, no hepatosplenomegaly, no masses. EXTREMITIES: right lower leg is colder than left leg. posterior tibial and dorsalis pedis pulses were not palpated in both feet. sensation is intact b/l, motor strength is 4/5 on the right leg, 5/5 on the left leg. Extremely tender to palpation from knee to toes on right leg. NEUROLOGICAL: Cranial nerves II through XII grossly intact. Normal speech, gait not observed. PSYCH: Normal mood, normal affect. Laboratory Results - last 24 hr 12/04/16 12/05/16 12/05/16 17:56 01:40 05:35 WBC 9.0 RBC 4.11 Hgb 12.6 D Hct 38.0 MCV 92.4 MCH 30.6 MCHC 33.1 RDW 14.8 Plt Count 303 MPV 9.2 D PTT (Actin FS) 43.0 H D 43.5 H Sodium Potassium Chloride Carbon Dioxide Anion Gap BUN Creatinine Random Glucose Calcium Troponin I 12/05/16 12/05/16 12/05/16 05:35 05:35 15:10 WBC RBC Hgb Hct MCV MCH MCHC RDW Plt Count MPV PTT (Actin FS) 48.2 H 42.1 H Sodium 139 Potassium 4.5 Chloride 104 Carbon Dioxide 27 Anion Gap 8 BUN 14 Creatinine 0.8 Random Glucose 90 Calcium 7.9 L Troponin I 0.50 H Active Medications Generic Name Dose Route Start Last Admin Trade Name Freq PRN Reason Stop Dose Admin Aspirin 81 mg 12/04/16 10:00 12/05/16 11:53 Ecotrin - PO 81 mg DAILY CHELLY Administration Atorvastatin Calcium 40 mg 12/04/16 22:00 12/04/16 21:17 Lipitor - PO 40 mg HS CHELLY Administration Carvedilol 6.25 mg 12/04/16 10:00 12/05/16 09:30 Coreg - PO 6.25 mg BID CHELLY Administration Heparin Sodium (Porcine) 5,000 unit 12/03/16 21:10 12/04/16 12:12 Heparin - IVPUSH 5,000 unit PRN PRN Administration Heparin Heparin Sodium (Porcine) 1,000 unit 12/04/16 19:54 12/05/16 17:38 Heparin - IVPUSH 1,000 unit PRN PRN Administration Heparin Heparin Sodium (Porcine) 25, 500 mls @ 16 mls/hr 12/03/16 21:15 12/05/16 17:38 000 unit/ Sodium Chloride IV 27 mls/hr TITR CHELLY Administration Protocol 800 UNIT/HR Morphine Sulfate 2 mg 12/04/16 20:20 12/05/16 17:42 Morphine Injection - IVPUSH 2 mg Q4H PRN Administration PAIN Valsartan 80 mg 12/04/16 10:00 12/05/16 09:30 Diovan - PO 80 mg DAILY [facility] Administration ASSESSMENT/PLAN: 76 year old man with a history of hypertrophic cardiomyopathy, non-obstructive CAD, chronic systolic/diastolic HF, HTN, PAF who presented to the ER with right leg pain likely secondary to thromboembolic disease. #RLE pain secondary to PAD, possible thromboembolic disease -CTA of aorta with LE runoff - Vascular surgery consult appreciated, awaiting official CTA read by radiology. Will need angiogram, possible thrombectomy romeo. - Continue heparin IV #Paroxysmal atrial fibrillation/flutter - Patient now reports he did not start taking Eliquis secondary to ongoing dental work -troponin trended down to 0.5 from 0.63 - Continue Coreg 6.25mg PO BID and valsartan 80mg PO qd - Will need long-term anticoagulation - will hold off on starting oral medication in case surgery is needed #CAD, non-obstructive - Continue aspirin 81, Coreg 6.25mg BID, atorvastatin 40mg qd #Chronic systolic and diastolic heart failure - Stable - Continue Coreg 6.25mg PO BID and valsartan 80mg PO qd #Hypertrophic cardiomyopathy -Coreg 6.25mg PO BID and valsartan 80mg PO qd #HTN - Continue Coreg 6.25mg PO BID and valsartan 80mg PO qd #Nicotine dependence - Discussed smoking cessation #FEN/GI -not on fluids -electrolytes wnl #Dispo -pending vascular -- Jono Huynh MD PGY1 Problem List - Problems (1) Coronary artery disease Code(s): I25.10 - ATHSCL HEART DISEASE OF [place] CORONARY ARTERY W/O ANG PCTRS (2) Heart failure Code(s): I50.9 - HEART FAILURE, UNSPECIFIED (3) Hypertrophic cardiomyopathy Code(s): I42.2 - OTHER HYPERTROPHIC CARDIOMYOPATHY (4) Nicotine dependence Code(s): F17.200 - NICOTINE DEPENDENCE, UNSPECIFIED, UNCOMPLICATED Visit type - Emergency Visit Emergency Visit: Yes ED Registration Date: 12/03/16 Care time: The patient presented to the Emergency Department on the above date and was hospitalized for further evaluation of their emergent condition. - New Patient This patient is new to me today: Yes Date on this admission: 12/05/16 - Critical Care Critical Care patient: No
--- NOTE | 2016-12-05 19:53 | PN ---
Teaching Attending Note Name of Resident: Jono Huynh ATTENDING PHYSICIAN STATEMENT I saw and evaluated the patient. I reviewed the resident's note and discussed the case with the resident. I agree with the resident's findings and plan as documented. SUBJECTIVE: no fever or chills, cont to have pain in R LE . no CP or SOB OBJECTIVE: NAD CV: RRR LUngs: CTAB ext: TTP to R cald , cold skin from knee down R > L. DP 0 on R , 1+ on L . nl sensation to light touch, nl range of motion in LE . no erythema A/P This is a 76 year old man with a history of hypertrophic cardiomyopathy, non- obstructive CAD, chronic systolic/diastolic HF, HTN, PAF who presented to the ER with right leg pain 1- RLE pain, due to arterial occlusion ( thrombus vs embolus ) . CTA prelim report withpossible thrombus in R common femoral artery and decreased flow on both sides. - ocnt heparin - NPO after mid night for angiogram and thrmbectomy - case d/w Dr. Rico by team 2- A fib : - cont heparin gtt - needs buttermaker AC, will discuss his options after procedure - cont coreg 3- CAD: cont ASA and statin 4- h/o chronic S/D heart failure . Euvolemic . cont to monitor . cont blanca
--- NOTE | 2016-12-05 20:03 | PN ---
Progress Note (short form) - Note Progress Note: Vascular Surgery Pt seen and examined. CTA still not read offiicially Will plan for open thrombectomy of bl lower ext romeo. Please optimize. Garrett Rico DO
[2016-12-05] MEDS: ATORVASTATIN CA 40 MG TABLET (FP) PO SCH (21:34)
[2016-12-06] MEDS: morphine CARPU-JECT 2 MG/1 ML DISP.SYRIN IVPUSH PRN (01:54)
[2016-12-06 08:22] LABS: MCH 30.6 pg (25.7-33.7); MEAN CELL VOLUME 92.6 fl (80-96); MEAN PLT VOLUME 8.9 fl (7.5-11.1); PLATELET COUNT 344 K/MM3 (134-434); RDW 14.7 % (11.9-15.9)
[2016-12-06] MEDS: HEPARIN NA (PORCINE) 5,000 UNITS/ML 1ML VIAL IVPUSH PRN (09:35)
[2016-12-06] MEDS: HEPARIN - 25,000 UNIT in SODIUM CHLORIDE 495 ML IV SCH (09:35)
[2016-12-06 09:36] LABS: ANION GAP 6 (8-16); CO2 27 mmol/L (21-32); GLUCOSE,RANDOM 80 mg/dL (74-106)
[2016-12-06 09:37] LABS: CREATININE 0.8 mg/dL (0.7-1.3); MAGNESIUM 2.1 mg/dL (1.8-2.4); PHOSPHOROUS 3.5 mg/dL (2.5-4.9)
[2016-12-06] MEDS: CARVEDILOL 6.25 MG TABLET (FP) PO SCH ×2 (09:37→22:44)
[2016-12-06] MEDS: ASPIRIN COATED 81 MG TABLET.EC PO SCH (09:37)
[2016-12-06] MEDS: VALSARTAN 80 MG TABLET (UD) PO SCH (09:37)
[2016-12-06] MEDS ORDERED: HYDROmorphone HCL CARPU-JECT 1 MG/1 ML DISP.SYRIN IVPB ONE (10:20)
--- NOTE | 2016-12-06 11:33 | PN ---
Progress Note, Physician Chief Complaint: Events noted Complains of right lower extremity pain History of Present Illness: Patient was seen and examined. Awake and alert. Chart was reviewed Denies chest pain, SOB or palpitations As outlined regarding lower extremity pain Await angiography - Current Medication List Current Medications: Active Medications Aspirin (Ecotrin -) 81 mg PO DAILY [facility] Last Admin: 12/06/16 09:37 Dose: 81 mg Atorvastatin Calcium (Lipitor -) 40 mg PO HS [facility] Last Admin: 12/05/16 21:34 Dose: 40 mg Carvedilol (Coreg -) 6.25 mg PO BID [facility] Last Admin: 12/06/16 09:37 Dose: 6.25 mg Heparin Sodium (Porcine) (Heparin -) 5,000 unit IVPUSH PRN PRN PRN Reason: Heparin Last Admin: 12/04/16 12:12 Dose: 5,000 unit Heparin Sodium (Porcine) (Heparin -) 1,000 unit IVPUSH PRN PRN PRN Reason: Heparin Last Admin: 12/06/16 09:35 Dose: 1,000 unit Heparin Sodium (Porcine) 25, (000 unit/ Sodium Chloride) 500 mls @ 16 mls/hr IV TITR CHELLY; 800 UNIT/HR PRN Reason: Protocol Last Admin: 12/06/16 09:35 Dose: 29 mls/hr Morphine Sulfate (Morphine Injection -) 2 mg IVPUSH Q4H PRN PRN Reason: PAIN Last Admin: 12/06/16 01:54 Dose: 2 mg Valsartan (Diovan -) 80 mg PO DAILY [facility] Last Admin: 12/06/16 09:37 Dose: 80 mg - Objective Vital Signs: Vital Signs Temperature 98.6 F 12/06/16 09:45 Pulse Rate 80 12/06/16 09:45 Respiratory Rate 18 12/06/16 09:45 Blood Pressure 120/86 12/06/16 09:45 O2 Sat by Pulse Oximetry (%) 96 12/05/16 20:11 Neck: Yes: Supple Cardiovascular: Yes: Regular Rate and Rhythm, S1, S2 Respiratory: Yes: CTA Bilaterally Gastrointestinal: Yes: Normal Bowel Sounds, Soft. No: Tenderness Edema: No Additional Findings/Remarks: Review of Systems Constitutional: denies: Chills Cardiovascular: As noted above Respiratory: denies: Cough or Sputum Production Gastrointestinal: denies: Nausea, Vomiting, Diarrhea, Constipation or Abdominal Pain Musculoskeletal: reports: Bilateral Leg Discomfort Neurological: denies: Dizziness or Headache Labs: CBC, BMP 12/06/16 06:05 12/06/16 06:05 Problem List - Problems (1) Coronary artery disease Code(s): I25.10 - ATHSCL HEART DISEASE OF [place] CORONARY ARTERY W/O ANG PCTRS (2) Hypertrophic cardiomyopathy Code(s): I42.2 - OTHER HYPERTROPHIC CARDIOMYOPATHY (3) Vascular occlusion Code(s): I99.8 - OTHER DISORDER OF CIRCULATORY SYSTEM (4) Atrial flutter Code(s): I48.92 - UNSPECIFIED ATRIAL FLUTTER Qualifiers: Atrial flutter type: atypical Qualified Code(s): I48.4 - Atypical atrial flutter (5) HTN (hypertension) Code(s): I10 - ESSENTIAL (PRIMARY) HYPERTENSION Qualifiers: Hypertension type: essential hypertension Qualified Code(s): I10 - Essential (primary) hypertension (6) Left ventricular systolic dysfunction Code(s): I51.9 - HEART DISEASE, UNSPECIFIED Assessment/Plan 1. Bilateral leg discomfort with evidence of vascular occlusion (occlusion of SFA bilaterally) likely embolic disease related to PAF with [id number] score of 6 on Heparin currently, on no therapy at home, poor compliance 2. CAD with evidence of demand ischemic injury, non obstructive CAD on coronary angiogrpahy angina pectoris 3. LV systolic/diastolic dysfunction related to apical hypertrophic cardiomyopathy, chronic class I-II NYHA classification, compensated/euvolemic. Cannot rule out infiltrative cardiomyopathy 4. Paroxysmal atypical atrial flutter/atrial tachycardia post cardioversion [id number] score of 6, recurrent arrhythmia, will require residential A/C 5. HTN 6. History of CKD 7. Poor compliance with medical therapy administration and medical F/U 8. Tobacco abuse PLAN: 1. Continue Heparin pending vascular evaluation and intervention and will require residential A/C with Coumadin or NOAC considering the above noted presentation and [id number] score 6 2. Further vascular evaluation with angiography as per Vascular Surgery and possible thrombectomy 3. Continue Carvedilol and Diovan and titrate as tolerated 4. Continue ASA 5. Continue Lipitor 6. Counselled smoking cessation and abstinence 7. Echocardiography report reviewed. Further plans are to follow Eliel Sam MD
--- NOTE | 2016-12-06 14:51 | PN ---
Physical Exam: SUBJECTIVE: Patient seen and examined, EMR consulted. Overnight, pt had several episodes of non-sustained V-tach and PVCs, but nurse reports that pt was asymptomatic. Vascular note from yesterday appreciated. Pt still reports the same severity of right leg pain. He denies chest pain, SOB, or any other symptom. OBJECTIVE: Vital Signs Period Temp Pulse Resp BP Sys/Ariza Pulse Ox Last 24 Hr 97.6 F-98.6 F 71-107 18-20 104-129/59-94 96-96 GENERAL: The patient is awake, alert, and fully oriented, in no acute distress. HEAD: Normal with no signs of trauma. EYES: PERRL, extraocular movements intact, sclera anicteric, conjunctiva clear. No ptosis. ENT: Ears normal, nares patent, oropharynx clear without exudates, moist mucous membranes. NECK: Trachea midline, full range of motion, supple. LUNGS: Breath sounds equal, clear to auscultation bilaterally, no wheezes, no crackles, no accessory muscle use. HEART: irregularly irregular, no murmurs, rubs, or gallops ABDOMEN: Soft, nontender, nondistended, normoactive bowel sounds, no guarding, no rebound, no hepatosplenomegaly, no masses. EXTREMITIES: RLE and LLE are warmer compared to yesterday overall. Decreased temperature palpated at mid calf and distal. Sensation and motor strength is intact in both. NEUROLOGICAL: Cranial nerves II through XII grossly intact. Normal speech, gait not observed. PSYCH: Normal mood, normal affect. SKIN: Warm, dry, normal turgor, no rashes or lesions noted Laboratory Results - last 24 hr 12/05/16 12/05/16 12/06/16 15:10 21:54 06:05 WBC 9.0 RBC 4.14 Hgb 12.7 Hct 38.4 MCV 92.6 MCH 30.6 MCHC 33.0 RDW 14.7 Plt Count 344 MPV 8.9 PTT (Actin FS) 42.1 H 70.0 H D Sodium Potassium Chloride Carbon Dioxide Anion Gap BUN Creatinine Random Glucose Calcium Phosphorus Magnesium 12/06/16 12/06/16 06:05 06:05 WBC RBC Hgb Hct MCV MCH MCHC RDW Plt Count MPV PTT (Actin FS) 49.0 H Sodium 138 Potassium 4.7 Chloride 105 Carbon Dioxide 27 Anion Gap 6 L BUN 13 Creatinine 0.8 Random Glucose 80 Calcium 8.0 L Phosphorus 3.5 Magnesium 2.1 Active Medications Generic Name Dose Route Start Last Admin Trade Name Nkechi PRN Reason Stop Dose Admin Aspirin 81 mg 12/04/16 10:00 12/06/16 09:37 Ecotrin - PO 81 mg DAILY [facility] Administration Atorvastatin Calcium 40 mg 12/04/16 22:00 12/05/16 21:34 Lipitor - PO 40 mg HS [facility] Administration Carvedilol 6.25 mg 12/04/16 10:00 12/06/16 09:37 Coreg - PO 6.25 mg BID [facility] Administration Heparin Sodium (Porcine) 5,000 unit 12/03/16 21:10 12/04/16 12:12 Heparin - IVPUSH 5,000 unit PRN PRN Administration Heparin Heparin Sodium (Porcine) 1,000 unit 12/04/16 19:54 12/06/16 09:35 Heparin - IVPUSH 1,000 unit PRN PRN Administration Heparin Heparin Sodium (Porcine) 25, 500 mls @ 16 mls/hr 12/03/16 21:15 12/06/16 09:35 000 unit/ Sodium Chloride IV 29 mls/hr TITR [facility] Administration Protocol 800 UNIT/HR Morphine Sulfate 2 mg 12/04/16 20:20 12/06/16 01:54 Morphine Injection - IVPUSH 2 mg Q4H PRN Administration PAIN Valsartan 80 mg 12/04/16 10:00 12/06/16 09:37 Diovan - PO 80 mg DAILY [facility] Administration Echo: shows severe LVH, severe left atrial enlargement, moderate MR, moderate TR. ASSESSMENT/PLAN: 76 year old man with a history of hypertrophic cardiomyopathy, non-obstructive CAD, chronic systolic/diastolic HF, HTN, PAF who presented to the ER with right leg pain likely secondary to thromboembolic disease. #RLE pain secondary to PAD, possible thromboembolic disease -CTA of aorta with LE runoff - Vascular surgery consult appreciated, awaiting official CTA read by radiology, will need angiogram, pt made NPO last night for thrombectomy today. - Continue heparin IV #Paroxysmal atrial fibrillation/flutter - Patient reported that he did not start taking Eliquis secondary to ongoing dental work -troponin trended down to 0.5 from 0.63 - Continue Coreg 6.25mg PO BID and valsartan 80mg PO qd - Will need long-term anticoagulation - will hold off on starting oral medication until after surgery. #CAD, non-obstructive - Continue aspirin 81, Coreg 6.25mg BID, atorvastatin 40mg qd #Chronic systolic and diastolic heart failure - Stable - Continue Coreg 6.25mg PO BID and valsartan 80mg PO qd #Hypertrophic cardiomyopathy -Coreg 6.25mg PO BID and valsartan 80mg PO qd #HTN - Continue Coreg 6.25mg PO BID and valsartan 80mg PO qd #Nicotine dependence - Discussed smoking cessation #FEN/GI -not on fluids -electrolytes wnl #Dispo -pending thrombectomy by vascular -- Jono Huynh MD PGY1 Problem List - Problems (1) Coronary artery disease Code(s): I25.10 - ATHSCL HEART DISEASE OF [place] CORONARY ARTERY W/O ANG PCTRS (2) Heart failure Code(s): I50.9 - HEART FAILURE, UNSPECIFIED (3) Hypertrophic cardiomyopathy Code(s): I42.2 - OTHER HYPERTROPHIC CARDIOMYOPATHY (4) Nicotine dependence Code(s): F17.200 - NICOTINE DEPENDENCE, UNSPECIFIED, UNCOMPLICATED Visit type - Emergency Visit Emergency Visit: Yes ED Registration Date: 12/03/16 Care time: The patient presented to the Emergency Department on the above date and was hospitalized for further evaluation of their emergent condition. - New Patient This patient is new to me today: No - Critical Care Critical Care patient: No
--- NOTE | 2016-12-06 15:01 | PN ---
Teaching Attending Note Name of Resident: Jono Huynh ATTENDING PHYSICIAN STATEMENT I saw and evaluated the patient. I reviewed the resident's note and discussed the case with the resident. I agree with the resident's findings and plan as documented. SUBJECTIVE: no fever ro chills, LE pain is better compared to yesterday OBJECTIVE: NAD CV: RRR Lungs: CTAB ext: TTP to R calf , warm skin on legs and slightly cold on feet today. DP absent on both sides A/P This is a 76 year old man with a history of hypertrophic cardiomyopathy, non- obstructive CAD, chronic systolic/diastolic HF, HTN, PAF who presented to the ER with right leg pain 1- RLE pain, due to arterial occlusion ( thrombus vs embolus ) . CTA prelim report with possible thrombus in R common femoral artery and decreased flow on both sides. - COnt heparin - angiogram and thrmbectomy today - intermediate AC choice to be d/w pt. will call pharmacy to figure out insurance coverage 2- A fib : - cont heparin gtt - needs technician terminal and repeater AC, will discuss his options after procedure - cont coreg 3- CAD: cont ASA and statin 4- h/o chronic S/D heart failure . Euvolemic . echo reviewed, cont to monitor . cont diovan HLOC
[2016-12-06] MEDS ORDERED: HEPARIN NA (PORCINE) 5,000 UNITS/ML 1ML VIAL ONE ×2 (15:36→18:50)
[2016-12-06] MEDS ORDERED: LIDOCAINE HCL 1%, 10 MG/ML (20ML VIAL) ONE (15:36)
[2016-12-06] MEDS ORDERED: MIDAZOLAM HCL 2 MG/2 ML SINGLE DOSE VIAL ONE ×2 (16:02→16:05)
[2016-12-06] MEDS ORDERED: ceFAZolin SODIUM 1 GM VIAL ONE (16:05)
[2016-12-06] MEDS ORDERED: PROPOFOL 20 ML ONE (16:11)
[2016-12-06] MEDS ORDERED: ceFAZolin SODIUM 1 GM VIAL IVPB ONE (16:20)
[2016-12-06] MEDS ORDERED: PHENYLEPHRINE HCL 10 MG/1 ML SINGLE DOSE VIAL ONE (16:32)
[2016-12-06] MEDS ORDERED: HEPARIN INFUSION - 500 ML IVPB ONE (18:50)
--- NOTE | 2016-12-06 18:52 | OP ---
Operative Note - Note: Operative Date: 12/06/16 Pre-Operative Diagnosis: bilateral lower extremity ischemia Operation: Open thrombectomy bilateral iliac artery, sfa, popliteal artery, tibial artery, with bilateral lower extremity angiogram Findings: embolus bilateral lower ext Embolus sent to pathology Post-Operative Diagnosis: Same as Pre-op Surgeon: Garrett Rico Anesthesia: General Estimated Blood Loss (mls): 200 Operative Report Dictated: Yes
[2016-12-06] MEDS ORDERED: HEPARIN NA (PORCINE) 5,000 UNITS/ML 1ML VIAL IVPUSH PRN ×3 (18:53→18:54)
[2016-12-06] MEDS ORDERED: HEPARIN - 25,000 UNIT in SODIUM CHLORIDE 495 ML IV SCH (19:00)
[2016-12-06] MEDS ORDERED: HYDROmorphone HCL CARPU-JECT 2 MG/1 ML DISP.SYRIN ONE (19:10)
[2016-12-06] MEDS: HYDROmorphone HCL CARPU-JECT 1 MG/1 ML DISP.SYRIN IVPUSH PRN ×4 (19:12→19:42)
[2016-12-06] MEDS ORDERED: morphine CARPU-JECT 2 MG/1 ML DISP.SYRIN IVPUSH PRN (20:01)
[2016-12-06] MEDS ORDERED: HYDROmorphone HCL CARPU-JECT 1 MG/1 ML DISP.SYRIN IVPB PRN ×2 (20:24→20:25)
[2016-12-06] MEDS ORDERED: ATORVASTATIN CA 40 MG TABLET (FP) PO SCH (22:00)
--- NOTE | 2016-12-06 22:07 | CONSULT ---
Consult Consult Specialty:: Pulmonary critical care Referred by:: Dr. Rico Reason for Consultation:: s/p bilateral thrombectomy - History of Present Illness History of Present Illness: 76 year old male with h/o [place] (04/2016), HTN, PAF not on AC who presented to ED on 12/03 ? LE pain and inability to ambulate for the past 5 days. Was found to have bilateral femoral artery occlusion, now s/p bilateral open thrombectomy and angiogram. Admitted to ICU for monitoring. Pt initially presented on 12/03 ? severe LE pain for the past 5 days. As per notes states he was given a prescription for AC (Eliquis) back in april however didnt take it given extensive dental work. Initial work up in ER revealed decreased LE pulses and dopplers confirmed R sided occlusion from proximal superficial femoral artery and L sided occlusion from the distal superficial femoral artery. He was started on heparin drip and admitted to telemetry service with vascular surgery following. Today underwent open thrombectomy of bilateral iliac artery, sfa, popliteal artery, tibial artery with bilateral lower extremity angiogram. He is now admitted to ICU for post-op monitoring. Active Medications Aspirin (Ecotrin -) 81 mg PO DAILY [facility] Atorvastatin Calcium (Lipitor -) 40 mg PO HS [facility] Carvedilol (Coreg -) 6.25 mg PO BID [facility] Heparin Sodium (Porcine) (Heparin -) 5,000 unit IVPUSH PRN PRN PRN Reason: Heparin Last Admin: 12/06/16 19:00 Dose: 5,000 unit Heparin Sodium (Porcine) (Heparin -) 1,000 unit IVPUSH PRN PRN PRN Reason: Heparin Hydromorphone HCl (Dilaudid Injection -) 1 mg IVPB Q6H PRN PRN Reason: PAIN Heparin Sodium (Porcine) 25, (000 unit/ Sodium Chloride) 500 mls @ 20 mls/hr IV TITR CHELLY; 1,000 UNIT/HR PRN Reason: Protocol Valsartan (Diovan -) 80 mg PO DAILY [facility] - Past Medical History Cardio/Vascular: Yes: AFIB, HTN, [place] - Past Surgical History Past Surgical History: Yes: Hernia Repair - Alcohol/Substance Use Hx Alcohol Use: Yes (SOCIALLY) History of Substance Use: reports: None - Smoking History Smoking history: Current every day smoker Have you smoked in the past 12 months: Yes Aproximately how many cigarettes per day: 10 If you are a former smoker, when did you quit?: 12.28.16 Home Medications - Allergies Allergies/Adverse Reactions: Allergies Allergy/AdvReac Type Severity Reaction Status Date / Time No Known Allergies Allergy Verified 12/03/16 15:54 - Home Medications Home Medications: Ambulatory Orders NK [No Known Home Medication] 12/03/16 Physical Exam Vital Signs: Vital Signs Temperature 97.9 F 12/06/16 21:40 Pulse Rate 78 12/06/16 21:40 Respiratory Rate 18 12/06/16 21:51 Blood Pressure 111/62 12/06/16 21:40 O2 Sat by Pulse Oximetry (%) 100 12/06/16 21:51 Cardiovascular: Yes: Pulse Irregular Respiratory: Yes: CTA Bilaterally Gastrointestinal: Yes: Normal Bowel Sounds, Abdomen, Obese Extremities: Yes: Calf Tenderness (Tenderness below the knee), Cool (L cooler than R) Peripheral Pulses WNL: No Neurological: Yes: Alert, Oriented Labs: CBC, BMP 12/06/16 06:05 12/06/16 06:05 Laboratory Results - last 24 hr 12/05/16 12/06/16 12/06/16 21:54 06:05 06:05 WBC 9.0 RBC 4.14 Hgb 12.7 Hct 38.4 MCV 92.6 MCH 30.6 MCHC 33.0 RDW 14.7 Plt Count 344 MPV 8.9 PTT (Actin FS) 70.0 H D 49.0 H Sodium Potassium Chloride Carbon Dioxide Anion Gap BUN Creatinine Random Glucose Calcium Phosphorus Magnesium 12/06/16 06:05 WBC RBC Hgb Hct MCV MCH MCHC RDW Plt Count MPV PTT (Actin FS) Sodium 138 Potassium 4.7 Chloride 105 Carbon Dioxide 27 Anion Gap 6 L BUN 13 Creatinine 0.8 Random Glucose 80 Calcium 8.0 L Phosphorus 3.5 Magnesium 2.1 Problem List - Problems (1) Heart failure Code(s): I50.9 - HEART FAILURE, UNSPECIFIED (2) Hypertrophic cardiomyopathy Code(s): I42.2 - OTHER HYPERTROPHIC CARDIOMYOPATHY (3) Nicotine dependence Code(s): F17.200 - NICOTINE DEPENDENCE, UNSPECIFIED, UNCOMPLICATED (4) Vascular occlusion Code(s): I99.8 - OTHER DISORDER OF CIRCULATORY SYSTEM (5) Atrial flutter Code(s): I48.92 - UNSPECIFIED ATRIAL FLUTTER Qualifiers: Atrial flutter type: atypical Qualified Code(s): I48.4 - Atypical atrial flutter (6) HTN (hypertension) Code(s): I10 - ESSENTIAL (PRIMARY) HYPERTENSION Qualifiers: Hypertension type: essential hypertension Qualified Code(s): I10 - Essential (primary) hypertension (7) NSTEMI (non-ST elevated myocardial infarction) Code(s): I21.4 - NON-ST ELEVATION (NSTEMI) MYOCARDIAL INFARCTION Assessment/Plan Assessment: 76 year old male with h/o [place] (04/2016), HTN, PAF not on AC who presented to ED on 12/03 with LE pain and inability to ambulate for the past 5 days. Was found to have bilateral femoral artery occlusion, now s/p bilateral open thrombectomy and angiogram. Admitted to ICU for monitoring. PLAN: -vascular surgery following -pain meds prn -continue heparin drip -cont aspirin -frequent vascular checks -cont antiHTN meds
[2016-12-07 06:50] LABS: ANION GAP 9 (8-16); CALCIUM 7.7 mg/dL (8.5-10.1); CO2 26 mmol/L (21-32); GLUCOSE,RANDOM 100 mg/dL (74-106)
--- NOTE | 2016-12-07 08:07 | PN ---
Progress Note (short form) - Note Progress Note: POD #1 Alert. Doing well. C/o incisional (groins) tenderness. Pain controlled well via PRN meds. States the pain in his feet has greatly diminished s/p surgery. On Heparin gtt . Denies n/v/f/c, CP or SOB. Last Vital Signs Temp Pulse Resp BP Pulse Ox 98.2 F 84 16 108/78 100 12/07/16 06:00 12/07/16 06:00 12/07/16 06:00 12/07/16 06:00 12/06/16 21:51 CBC, BMP 12/06/16 06:05 12/07/16 05:20 PE Gen: alert. nad. Abd: soft. NT. ND. LE: b/l groin incisions intact. Minimal oozing to rt dressing. No hematoma b/l. Feet/toes warm b/l. Dopplerable PT/DP b/l. Mild edema to LE b/l (most likely from re-perfusion). Problem List - Problems (1) Vascular occlusion Assessment/Plan: POD #1 s/p Open thrombectomy b/l iliac artery, sfa, popliteal artery,tibial artery, with b/l lower extremity angiogram Cont Hep gtt Cont ICU management Downgrade to floor at ICU discretion Code(s): I99.8 - OTHER DISORDER OF CIRCULATORY SYSTEM
--- NOTE | 2016-12-07 08:28 | PN ---
Progress Note, Physician Chief Complaint: Pt. comfortable, pain controlled, no anesthesia complications. - Current Medication List Current Medications: Active Medications Aspirin (Ecotrin -) 81 mg PO DAILY [facility] Atorvastatin Calcium (Lipitor -) 40 mg PO HS [facility] Last Admin: 12/06/16 22:44 Dose: 40 mg Carvedilol (Coreg -) 6.25 mg PO BID [facility]LLY Last Admin: 12/06/16 22:44 Dose: 6.25 mg Heparin Sodium (Porcine) (Heparin -) 5,000 unit IVPUSH PRN PRN PRN Reason: Heparin Last Admin: 12/06/16 19:00 Dose: 5,000 unit Heparin Sodium (Porcine) (Heparin -) 1,000 unit IVPUSH PRN PRN PRN Reason: Heparin Hydromorphone HCl (Dilaudid Injection -) 1 mg IVPB Q6H PRN PRN Reason: PAIN Heparin Sodium (Porcine) 25, (000 unit/ Sodium Chloride) 500 mls @ 20 mls/hr IV TITR CHELLY; 1,000 UNIT/HR PRN Reason: Protocol Last Admin: 12/06/16 18:55 Dose: 20 mls/hr Valsartan (Diovan -) 80 mg PO DAILY [facility] - Objective Vital Signs: Vital Signs Temperature 98.2 F 12/07/16 06:00 Pulse Rate 84 12/07/16 06:00 Respiratory Rate 16 12/07/16 06:00 Blood Pressure 108/78 12/07/16 06:00 O2 Sat by Pulse Oximetry (%) 100 12/06/16 21:51 Constitutional: Yes: Well Nourished, No Distress, Calm Neurological: Yes: WNL, Alert, Oriented ...Motor Strength: WNL Labs: CBC, BMP 12/06/16 06:05 12/07/16 05:20 Assessment/Plan POD#1 s/p Bilateral lower extremity open embolectomy. Doing well. D/C from anesthesia care.
--- NOTE | 2016-12-07 08:47 | PN ---
Physical Exam: SUBJECTIVE: Patient seen and examined by me - No complaints. No major events overnight. Denies fever, chills, CLAROS, vision changes, lightheadness, CP, SOB, abdominal pain, weakness. - Endorses mild tenderness in R foot. BL leg pain much improved post-procedure. BL LE well-perfused w/ 2+ pulses - Plan for transfer to med-surg today. - Further management per surgical team. - Hypotensive to high 80s in AM during rounds. Coreg held. 1L NS given. OBJECTIVE: Intake & Output 12/04/16 12/05/16 12/06/16 12/07/16 23:59 23:59 23:59 23:59 Intake Total 1202 1379 1674 180 Output Total 225 220 7912 400 Balance 352 429 274 -220 Weight 97.545 kg Vital Signs Period Temp Pulse Resp BP Sys/Ariza Pulse Ox Last 24 Hr 97.9 F-98.6 F 71-90 16-22 90-126/44-90 96-100 GENERAL: The patient is awake, alert, and fully oriented, in no acute distress. HEAD: Normal with no signs of trauma. Alopecia EYES: PERRL, extraocular movements intact, sclera anicteric, conjunctiva clear. No ptosis. ENT: Ears normal, nares patent, oropharynx clear without exudates, moist mucous membranes. NECK: Trachea midline, full range of motion, supple. LUNGS: Breath sounds equal, clear to auscultation bilaterally, no wheezes, no crackles, no accessory muscle use. HEART: Regular rate and rhythm, S1, S2 without murmur, rub or gallop. ABDOMEN: Soft, nontender, nondistended, normoactive bowel sounds, no guarding, no rebound, no hepatosplenomegaly, no masses. EXTREMITIES: 2+ DP, PT pulses BL. Extremities warm and well perfused NEUROLOGICAL: Cranial nerves II through XII grossly intact. Normal speech, gait not observed. Preserved sensation BL in LEs. 5/5 strength in both legs. PSYCH: Normal mood, normal affect. : Bilateral inguinal dressings at arterial puncture sites. No evidence of significant hemorrhage, hematoma or drainage. Laboratory Results - last 24 hr CBC, BMP 12/06/16 06:05 12/07/16 05:20 12/06/16 12/07/16 12/07/16 06:05 01:00 05:20 PTT (Actin FS) 65.5 H D Sodium 138 139 Potassium 4.7 5.2 H Chloride 105 104 Carbon Dioxide 27 26 Anion Gap 6 L 9 BUN 13 17 D Creatinine 0.8 1.0 D Random Glucose 80 100 D Calcium 8.0 L 7.7 L Phosphorus 3.5 Magnesium 2.1 Laboratory Results - last 24 hr 12/06/16 12/07/16 12/07/16 06:05 01:00 05:20 PTT (Actin FS) 65.5 H D Sodium 138 139 Potassium 4.7 5.2 H Chloride 105 104 Carbon Dioxide 27 26 Anion Gap 6 L 9 BUN 13 17 D Creatinine 0.8 1.0 D Random Glucose 80 100 D Calcium 8.0 L 7.7 L Phosphorus 3.5 Magnesium 2.1 Active Medications Generic Name Dose Route Start Last Admin Trade Name Freq PRN Reason Stop Dose Admin Aspirin 81 mg 12/07/16 10:00 Ecotrin - PO DAILY [facility] Atorvastatin Calcium 40 mg 12/06/16 22:00 12/06/16 22:44 Lipitor - PO 40 mg HS [facility] Administration Carvedilol 6.25 mg 12/06/16 22:00 12/06/16 22:44 Coreg - PO 6.25 mg BID [facility]LLY Administration Heparin Sodium (Porcine) 5,000 unit 12/06/16 18:53 12/06/16 19:00 Heparin - IVPUSH 5,000 unit PRN PRN Administration Heparin Heparin Sodium (Porcine) 1,000 unit 12/06/16 18:54 Heparin - IVPUSH PRN PRN Heparin Hydromorphone HCl 1 mg 12/06/16 20:25 Dilaudid Injection - IVPB Q6H PRN PAIN Heparin Sodium (Porcine) 25, 500 mls @ 20 mls/hr 12/06/16 19:00 12/06/16 18:55 000 unit/ Sodium Chloride IV 20 mls/hr TITR [facility] Administration Protocol 1,000 UNIT/HR Valsartan 80 mg 12/07/16 10:00 Diovan - PO DAILY [facility] CTA- Abdomen (12/06): IMPRESSION: Occlusive clot seen throughout the right and left SFA's, popliteal and infrapopliteal arteries with minimal flow seen in the distal right leg via the right peroneal artery and on the left via the posterior tibial artery. No appreciable flow seen to the right and left feet. Findings are suspicious for emboli versus in situ thrombi. Aneurysmal dilatation of the right and left common iliac arteries. Eccentric noncalcified thrombi in the infrarenal abdominal aorta with suggestion of ulcerated plaque. Occluded AURELIO with restitution flow in the AURELIO branches via the SMA branches. Celiac trunk and SMA with a branches are grossly patent. Renal arteries are widely patent and no renal infarcts seen. Evaluation of the spleen for infarcts is limited due to heterogeneous phase of enhancement. Splenic artery is grossly patent. 1 cm right lung base focal atelectasis versus pleural-based nodule. Follow-up CT of the chest in 3 months is suggested. Small to moderate pericardial effusion. Correlation with echocardiography is suggested. Diffuse colonic diverticulosis most extensive in the descending and sigmoid colon. Dilated CBD up to 1 cm but with no intrahepatic biliary ductal dilatation. Correlation with LFTs and bilirubin level is needed. If clinically indicated further evaluation with MRCP may be obtained. Small left inguinal fat-containing hernia with small amount of fluid in the left inguinal canal and bilateral hydrocele. Correlation with clinical history is needed. If clinically indicated further evaluation with scrotal ultrasound may be obtained. 1 cm left renal lesion measuring around 40 Hounsfield unit. This can be further evaluated with MRI without and with gadolinium. Echo (12/05): Normal LV size, severe LV concentric hypertrophy, mild LV hypokinesis. L atrium dilated. Moderate MR and TR. Mild pulm valve regurgitation. BL LE Arterial duplex (12/03): Evaluation of the right leg demonstrates no definite flow within right superficial femoral artery at the level of the proximal, mid and distal thirds. There is also no definite flow at the level of the right popliteal or posterior tibial arteries. Evaluation of the left leg demonstrates no definite flow within the distal third of the superficial femoral artery. There is also no definite flow within the popliteal or posterior tibial arteries. Impression: Bilateral arterial occlusion is seen as discussed above. ASSESSMENT/PLAN: 76 yo male w/ h/o [place] (Apr 2016), HTN, PAF (currently not on AC), who came to ED on 12/03 w/ persistent LE pain and inability to ambulate. Discovered to have bilateral femoral arterial occlusions on arterial duplex and confirmed with CTA of Ab/LEs. Now s/p bilateral thrombectomy and angiogram, currently admitted to the ICU for post-op monitoring. Pt doing well, with no complaints, endorsing significant improvement in bilateral LE pain. Still endorses mild residual pain in R foot. LEs warm and well-perfused with palpable pulses. Remaining PE unremarkable. Good pain control with Dilaudid 1mg IV Q6H. Pt hypotensive during morning rounds, coreg held, bolused 1L NS. Will trend vitals. Plan for transfer to med-surg for further care. #Neuro Dilaudid 1mg IV Q6h for pain control #Cardiac Coreg held due to hypotension. Valsartan 80 PO daily Statin 40mg PO Vascular surgery following Q4h pulse checks #Pulm O2 support with 2L NC Monitor sats Titrate to >94% sat #Heme ASA 81 mg PO Heparin gtt OOB today in PM if vascular surgery approves #Renal PO fluids Daily lytes #PPx Heparin gtt for DVT ppx FEN Fluid: Bolus 1L NS Electrolytes: Monitor lytes w/ daily BMP Nutrition: Cardiac diet Dispo: Transfer to med-surg for further management. Plan per vascular surgery team. Marco Gallo, PGY1 Plan discussed with attending, Dr. Klein Visit type - Emergency Visit Emergency Visit: No - New Patient This patient is new to me today: Yes Date on this admission: 12/07/16 - Critical Care Critical Care patient: Yes Total Critical Care Time (in minutes): 35 Critical Care Statement: The care of this patient involved high complexity decision making to prevent further life threatening deterioration of the patient 's condition and/or to evaluate & treat vital organ system(s) failure or risk of failure.
[2016-12-07] MEDS: CARVEDILOL 6.25 MG TABLET (FP) PO SCH (09:21)
[2016-12-07] MEDS ORDERED: VALSARTAN 80 MG TABLET (UD) PO SCH (10:00)
[2016-12-07] MEDS ORDERED: ASPIRIN COATED 81 MG TABLET.EC PO SCH (10:00)
[2016-12-07] MEDS ORDERED: SODIUM CHLORIDE 1,000 ML IV STA (10:50)
--- NOTE | 2016-12-07 10:51 | PN ---
Physical Exam: SUBJECTIVE: Patient seen and examined, EMR consulted. Pt underwent a b/l thrombectomy yesterday afternoon. Overnight resident performed a post-op check on pt, and found the pt to be stable with groin incision sites showing no signs of infection. No acute events overnight. Pt reports no more leg pain. He states that he just feels "like something was done to his feet." He denies SOB, chest pain, nausea, emesis, and lightheadedness. He endorses having an appetite, and states that he is urinating ok without dysuria. OBJECTIVE: Vital Signs Period Temp Pulse Resp BP Sys/Ariza Pulse Ox Last 24 Hr 97.9 F-98.7 F 71-90 16-22 86-126/44-90 97-100 GENERAL: The patient is awake, alert, and fully oriented, in no acute distress. HEAD: Normal with no signs of trauma. EYES: PERRL, extraocular movements intact, sclera anicteric, conjunctiva clear. No ptosis. ENT: Ears normal, nares patent, oropharynx clear without exudates, moist mucous membranes. NECK: Trachea midline, full range of motion, supple. LUNGS: Breath sounds equal, clear to auscultation bilaterally, no wheezes, no crackles, no accessory muscle use. HEART: Regular rate and rhythm, S1, S2 without murmur, rub or gallop. ABDOMEN: Soft, nontender, nondistended, normoactive bowel sounds, no guarding, no rebound, no hepatosplenomegaly, no masses. EXTREMITIES: bandages over both groins, non-tender to palpation. Both legs are warm to touch, feet are slightly cold but markedly warmer than yesterday. Sensory and motor function is intact in both feet and legs. Distal pulses were difficult to palpate, doppler not used. NEUROLOGICAL: Cranial nerves II through XII grossly intact. Normal speech, gait not observed. PSYCH: Normal mood, normal affect. SKIN: Warm, dry, normal turgor, no rashes or lesions noted Laboratory Results - last 24 hr 12/07/16 12/07/16 01:00 05:20 PTT (Actin FS) 65.5 H D Sodium 139 Potassium 5.2 H Chloride 104 Carbon Dioxide 26 Anion Gap 9 BUN 17 D Creatinine 1.0 D Random Glucose 100 D Calcium 7.7 L Active Medications Generic Name Dose Route Start Last Admin Trade Name Nkechi PRN Reason Stop Dose Admin Aspirin 81 mg 12/07/16 10:00 12/07/16 09:21 Ecotrin - PO 81 mg DAILY CHELLY Administration Atorvastatin Calcium 40 mg 12/06/16 22:00 12/06/16 22:44 Lipitor - PO 40 mg HS CHELLY Administration Carvedilol 6.25 mg 12/06/16 22:00 12/07/16 09:21 Coreg - PO 6.25 mg BID CHELLY Administration Heparin Sodium (Porcine) 5,000 unit 12/06/16 18:53 12/06/16 19:00 Heparin - IVPUSH 5,000 unit PRN PRN Administration Heparin Heparin Sodium (Porcine) 1,000 unit 12/06/16 18:54 Heparin - IVPUSH PRN PRN Heparin Hydromorphone HCl 1 mg 12/06/16 20:25 12/07/16 09:20 Dilaudid Injection - IVPB 1 mg Q6H PRN Administration PAIN Heparin Sodium (Porcine) 25, 500 mls @ 20 mls/hr 12/06/16 19:00 12/06/16 18:55 000 unit/ Sodium Chloride IV 20 mls/hr TITR CHELLY Administration Protocol 1,000 UNIT/HR Valsartan 80 mg 12/07/16 10:00 12/07/16 09:21 Diovan - PO 80 mg DAILY CHELLY Administration ASSESSMENT/PLAN: 76 year old man with a history of hypertrophic cardiomyopathy, non-obstructive CAD, chronic systolic/diastolic HF, HTN, PAF who presented to the ER with right leg pain found to be 2/2 PAD/thromboembolic disease, s/p b/l leg thrombectomy, currently stable and improving. #RLE pain secondary to PAD/thromboembolic disease - s/p b/l thrombectomy on 12/06 - pain control with dilaudid 1mg IV q6h PRN - Continue heparin IV - discussed risks, benefits, and different aspects of various AC drugs with pt. After considering all options, pt amenable to starting xarelto. - will touch base with vascular about best choice of AC and when to D/C pt #Paroxysmal atrial fibrillation/flutter - Patient reported that he did not start taking Eliquis secondary to ongoing dental work - Continue Coreg 6.25mg PO BID and valsartan 80mg PO qd - AC discussed with pt, will touch base with vascular as well #CAD, non-obstructive - Continue aspirin 81, Coreg 6.25mg BID, atorvastatin 40mg qd #Chronic systolic and diastolic heart failure - Stable - Continue Coreg 6.25mg PO BID and valsartan 80mg PO qd #Hypertrophic cardiomyopathy -Coreg 6.25mg PO BID and valsartan 80mg PO qd #HTN - Continue Coreg 6.25mg PO BID and valsartan 80mg PO qd #Nicotine dependence - Discussed smoking cessation #FEN/GI -not on fluids -electrolytes wnl -diabetic diet -not on GI ppx #Dispo -pending vascular -- Jono Huynh MD PGY1 Problem List - Problems (1) Coronary artery disease Code(s): I25.10 - ATHSCL HEART DISEASE OF [place] CORONARY ARTERY W/O ANG PCTRS (2) Heart failure Code(s): I50.9 - HEART FAILURE, UNSPECIFIED (3) Hypertrophic cardiomyopathy Code(s): I42.2 - OTHER HYPERTROPHIC CARDIOMYOPATHY (4) Nicotine dependence Code(s): F17.200 - NICOTINE DEPENDENCE, UNSPECIFIED, UNCOMPLICATED Visit type - Emergency Visit Emergency Visit: Yes ED Registration Date: 12/03/16 Care time: The patient presented to the Emergency Department on the above date and was hospitalized for further evaluation of their emergent condition. - New Patient This patient is new to me today: No - Critical Care Critical Care patient: No
[2016-12-07] MEDS ORDERED: INSULIN (NOVOLOG) ASPART 100 UNITS/ML 10ML VIAL ONE (11:36)
--- NOTE | 2016-12-07 11:48 | PN ---
Teaching Attending Note Name of Resident: Marco Gallo ATTENDING PHYSICIAN STATEMENT I saw and evaluated the patient. I reviewed the resident's note and discussed the case with the resident. I agree with the resident's findings and plan as documented. SUBJECTIVE: Pt seen and examined in the ICU. Denies pain, shortness of breath or chest pain. OBJECTIVE: Last Vital Signs Temp Pulse Resp BP Pulse Ox 98.7 F 80 18 86/68 100 12/07/16 10:00 12/07/16 10:00 12/07/16 10:00 12/07/16 10:00 12/07/16 08:42 Intake & Output 12/04/16 12/05/16 12/06/16 12/07/16 23:59 23:59 23:59 23:59 Intake Total 1202 1379 1674 180 Output Total 923 630 1043 400 Balance 352 429 274 -220 Weight 215 lb 0.8 oz Gen: NAD at rest Heart: RRR Lung: decreased breath sounds at the bases Abd: soft, nontender Ext: no edema, +DP CBC, BMP 12/06/16 06:05 12/07/16 05:20 Active Medications Aspirin (Ecotrin -) 81 mg PO DAILY [facility]LLY Last Admin: 12/07/16 09:21 Dose: 81 mg Atorvastatin Calcium (Lipitor -) 40 mg PO HS [facility] Last Admin: 12/06/16 22:44 Dose: 40 mg Carvedilol (Coreg -) 6.25 mg PO BID [facility] Last Admin: 12/07/16 09:21 Dose: 6.25 mg Heparin Sodium (Porcine) (Heparin -) 5,000 unit IVPUSH PRN PRN PRN Reason: Heparin Last Admin: 12/06/16 19:00 Dose: 5,000 unit Heparin Sodium (Porcine) (Heparin -) 1,000 unit IVPUSH PRN PRN PRN Reason: Heparin Hydromorphone HCl (Dilaudid Injection -) 1 mg IVPB Q6H PRN PRN Reason: PAIN Last Admin: 12/07/16 09:20 Dose: 1 mg Heparin Sodium (Porcine) 25, (000 unit/ Sodium Chloride) 500 mls @ 20 mls/hr IV TITR CHELLY; 1,000 UNIT/HR PRN Reason: Protocol Last Admin: 12/06/16 18:55 Dose: 20 mls/hr Sodium Chloride (Normal Saline -) 1,000 mls @ 1,000 mls/hr IV ASDIR STA Stop: 12/07/16 11:49 Last Admin: 12/07/16 11:14 Dose: 1,000 mls/hr Valsartan (Diovan -) 80 mg PO DAILY [facility] Last Admin: 12/07/16 09:21 Dose: 80 mg ASSESSMENT AND PLAN: SFA Occlusion/Emboli s/p angiogram/bilateral open thrombectomy Paroxysmal Atrial Fibrillation CAD LV Diastolic/Systolic Dysfunction HTN CKD Smoker - continue anticoagulation - pulse checks - ASA - smoking cessation - OOB when ok with surgery - can monitor on floor
--- NOTE | 2016-12-07 12:01 | PN ---
Progress Note, Physician Chief Complaint: Events noted Post bilateral thrombectomy Hemodynamically stable History of Present Illness: Patient was seen and examined. Awake and alert. Chart was reviewed Denies chest pain, SOB or palpitations Lower extremity warm - Current Medication List Current Medications: Active Medications Aspirin (Ecotrin -) 81 mg PO DAILY [facility] Last Admin: 12/07/16 09:21 Dose: 81 mg Atorvastatin Calcium (Lipitor -) 40 mg PO HS [facility] Last Admin: 12/06/16 22:44 Dose: 40 mg Carvedilol (Coreg -) 6.25 mg PO BID [facility] Last Admin: 12/07/16 09:21 Dose: 6.25 mg Heparin Sodium (Porcine) (Heparin -) 5,000 unit IVPUSH PRN PRN PRN Reason: Heparin Last Admin: 12/06/16 19:00 Dose: 5,000 unit Heparin Sodium (Porcine) (Heparin -) 1,000 unit IVPUSH PRN PRN PRN Reason: Heparin Hydromorphone HCl (Dilaudid Injection -) 1 mg IVPB Q6H PRN PRN Reason: PAIN Last Admin: 12/07/16 09:20 Dose: 1 mg Heparin Sodium (Porcine) 25, (000 unit/ Sodium Chloride) 500 mls @ 20 mls/hr IV TITR CHELLY; 1,000 UNIT/HR PRN Reason: Protocol Last Admin: 12/06/16 18:55 Dose: 20 mls/hr Valsartan (Diovan -) 80 mg PO DAILY [facility] Last Admin: 12/07/16 09:21 Dose: 80 mg - Objective Vital Signs: Vital Signs Temperature 98.7 F 12/07/16 10:00 Pulse Rate 88 12/07/16 11:47 Respiratory Rate 18 12/07/16 11:47 Blood Pressure 93/60 12/07/16 11:47 O2 Sat by Pulse Oximetry (%) 100 12/07/16 08:42 Neck: Yes: Supple Cardiovascular: Yes: Pulse Irregular, S1, S2 Respiratory: Yes: CTA Bilaterally Gastrointestinal: Yes: Normal Bowel Sounds, Soft. No: Tenderness Edema: No Additional Findings/Remarks: Review of Systems Constitutional: denies: Chills Cardiovascular: As noted above Respiratory: denies: Cough or Sputum Production Gastrointestinal: denies: Nausea, Vomiting, Diarrhea, Constipation or Abdominal Pain Musculoskeletal: reports: Bilateral Leg Discomfort Neurological: denies: Dizziness or Headache Labs: CBC, BMP 12/06/16 06:05 12/07/16 05:20 Problem List - Problems (1) Coronary artery disease Code(s): I25.10 - ATHSCL HEART DISEASE OF [place] CORONARY ARTERY W/O ANG PCTRS (2) Hypertrophic cardiomyopathy Code(s): I42.2 - OTHER HYPERTROPHIC CARDIOMYOPATHY (3) Vascular occlusion Code(s): I99.8 - OTHER DISORDER OF CIRCULATORY SYSTEM (4) Atrial flutter Code(s): I48.92 - UNSPECIFIED ATRIAL FLUTTER Qualifiers: Atrial flutter type: atypical Qualified Code(s): I48.4 - Atypical atrial flutter (5) HTN (hypertension) Code(s): I10 - ESSENTIAL (PRIMARY) HYPERTENSION Qualifiers: Hypertension type: essential hypertension Qualified Code(s): I10 - Essential (primary) hypertension (6) Left ventricular systolic dysfunction Code(s): I51.9 - HEART DISEASE, UNSPECIFIED Assessment/Plan 1. Bilateral leg discomfort with evidence of vascular occlusion (occlusion of SFA bilaterally) likely embolic disease related to PAF with [id number] score of 6 on Heparin currently, on no therapy at home, poor compliance s/p angiogram + bilateral thrombectomy 2. CAD with evidence of demand ischemic injury, non obstructive CAD on coronary angiogrpahy angina pectoris 3. LV systolic/diastolic dysfunction, cannot rule out infiltrative cardiomyopathy, chronic class I-II NYHA classification, compensated/euvolemic. 4. Paroxysmal atypical atrial flutter/atrial tachycardia post cardioversion [id number] score of 6, recurrent arrhythmia, will require exterminator helper A/C 5. HTN 6. History of CKD 7. Poor compliance with medical therapy administration and medical F/U 8. Tobacco abuse PLAN: 1. Continue Heparin and will require exterminator helper A/C with Coumadin or NOAC considering the above noted presentation and [id number] score 6 2. Vascular surgery follow up 3. Continue Carvedilol and Diovan and titrate as tolerated 4. Continue ASA 5. Continue Lipitor 6. Counselled smoking cessation and abstinence 7. Further cardiac evaluation can be done as outpatient Further plans are to follow Eliel Sam MD
[2016-12-07] MEDS ORDERED: PROPOFOL 100 ML ONE (13:08)
[2016-12-07] MEDS ORDERED: SODIUM CHLORIDE 1,000 ML IV SCH (13:30)
--- NOTE | 2016-12-07 13:55 | PN ---
Teaching Attending Note Name of Resident: Jono Huynh ATTENDING PHYSICIAN STATEMENT I saw and evaluated the patient. I reviewed the resident's note and discussed the case with the resident. I agree with the resident's findings and plan as documented. SUBJECTIVE: Patient is comfortable with no acute distress, no shortness of breath, no nausea or vomiting, no further lower extremity pain. OBJECTIVE: Vital Signs Temperature 98.8 F 12/07/16 13:20 Pulse Rate 85 12/07/16 13:20 Respiratory Rate 18 12/07/16 13:20 Blood Pressure 88/62 12/07/16 13:20 O2 Sat by Pulse Oximetry (%) 100 12/07/16 08:42 CBCD WBC 9.0 K/mm3 (4.0-10.0) 12/06/16 06:05 RBC 4.14 M/mm3 (4.00-5.60) 12/06/16 06:05 Hgb 12.7 GM/dL (11.7-16.9) 12/06/16 06:05 Hct 38.4 % (35.4-49) 12/06/16 06:05 MCV 92.6 fl (80-96) 12/06/16 06:05 MCHC 33.0 g/dl (32.0-35.9) 12/06/16 06:05 RDW 14.7 % (11.9-15.9) 12/06/16 06:05 Plt Count 344 K/MM3 (134-434) 12/06/16 06:05 MPV 8.9 fl (7.5-11.1) 12/06/16 06:05 CMP Sodium 139 mmol/L (136-145) 12/07/16 05:20 Potassium 5.2 mmol/L (3.5-5.1) H 12/07/16 05:20 Chloride 104 mmol/L (98-107) 12/07/16 05:20 Carbon Dioxide 26 mmol/L (21-32) 12/07/16 05:20 Anion Gap 9 (8-16) 12/07/16 05:20 BUN 17 mg/dL (7-18) D 12/07/16 05:20 Creatinine 1.0 mg/dL (0.7-1.3) D 12/07/16 05:20 Creat Clearance w eGFR > 60 (>60) 12/04/16 06:30 Random Glucose 100 mg/dL (74-106) D 12/07/16 05:20 Calcium 7.7 mg/dL (8.5-10.1) L 12/07/16 05:20 Total Bilirubin 0.5 mg/dL (0.2-1.0) D 12/04/16 06:30 AST 15 U/L (15-37) 12/04/16 06:30 ALT 17 U/L (12-78) 12/04/16 06:30 Alkaline Phosphatase 65 U/L (45-117) 12/04/16 06:30 Total Protein 6.1 g/dl (6.4-8.2) L 12/04/16 06:30 Albumin 2.4 g/dl (3.4-5.0) L 12/04/16 06:30 CARDIAC ENZYMES Creatine Kinase 282 IU/L (39-308) 12/03/16 18:45 Troponin I 0.50 ng/ml (0.00-0.05) H 12/05/16 05:35 Current Medications Generic Name Dose Route Start Last Admin Trade Name Freq PRN Reason Stop Dose Admin Aspirin 81 mg 12/07/16 10:00 12/07/16 09:21 Ecotrin - PO 81 mg DAILY CHELLY Administration Atorvastatin Calcium 40 mg 12/06/16 22:00 12/06/16 22:44 Lipitor - PO 40 mg HS CHELLY Administration Carvedilol 6.25 mg 12/06/16 22:00 12/07/16 09:21 Coreg - PO 6.25 mg BID CHELLY Administration Heparin Sodium (Porcine) 5,000 unit 12/06/16 18:53 12/06/16 19:00 Heparin - IVPUSH 5,000 unit PRN PRN Administration Heparin Heparin Sodium (Porcine) 1,000 unit 12/06/16 18:54 Heparin - IVPUSH PRN PRN Heparin Hydromorphone HCl 1 mg 12/06/16 20:25 12/07/16 09:20 Dilaudid Injection - IVPB 1 mg Q6H PRN Administration PAIN Heparin Sodium (Porcine) 25, 500 mls @ 20 mls/hr 12/06/16 19:00 12/06/16 18:55 000 unit/ Sodium Chloride IV 20 mls/hr TITR CHELLY Administration Protocol 1,000 UNIT/HR Sodium Chloride 1,000 mls @ 75 mls/hr 12/07/16 13:30 Normal Saline - IV ASDIR CHELLY Valsartan 80 mg 12/07/16 10:00 12/07/16 09:21 Diovan - PO 80 mg DAILY CHELLY Administration Home Medications Medication Instructions Recorded NK [No Known Home Medication] 12/03/16 PE: palpable pulses of lower extremities, warm to touch. rest of PE per resident's note CTA report with possible thrombus in R common femoral artery and decreased flow on both sides. ASSESSMENT AND PLAN: This is a 76 year old man with a history of hypertrophic cardiomyopathy, non- obstructive CAD, chronic systolic/diastolic HF, HTN, PAF who presented to the ER with right leg pain # Acute arterial occlusion of Right lower extremity s/p b/l thrombectomy (12/06) by Vascular DrGloria Rico , on Heparin drip. patient needs care home AC , will need to check with his pharmacy which NOac will be covered , ON IV dilaudid prn. # A fib : cont heparin gtt , on coreg continue, needs care home AC # CAD: cont ASA and statin # Hx of chronic Systolic and diastolic heart failure . Euvolemic . echo reviewed, cont to monitor . cont diovan DVT PX: heparin drip
[2016-12-07] MEDS ORDERED: HEPARIN NA (PORCINE) 5,000 UNITS/ML 1ML VIAL IVPUSH PRN ×4 (19:28)
[2016-12-07] MEDS: HYDROmorphone HCL CARPU-JECT 1 MG/1 ML DISP.SYRIN IVPB PRN (21:08)
[2016-12-07] MEDS: ATORVASTATIN CA 40 MG TABLET (FP) PO SCH (21:08)
[2016-12-07] MEDS: HEPARIN - 25,000 UNIT in SODIUM CHLORIDE 495 ML IV SCH (21:09)
[2016-12-08] MEDS: HYDROmorphone HCL CARPU-JECT 1 MG/1 ML DISP.SYRIN IVPB PRN ×4 (03:40→22:23)
[2016-12-08 07:07] LABS: MCHC 33.1 g/dl (32.0-35.9); MEAN CELL VOLUME 93.7 fl (80-96); MEAN PLT VOLUME 9.6 fl (7.5-11.1); PLATELET COUNT 307 K/MM3 (134-434); RDW 14.8 % (11.9-15.9); WHITE BLOOD COUNT 10.6 K/mm3 (4.0-10.0)
[2016-12-08 07:24] LABS: ANION GAP 9 (8-16); CALCIUM 7.7 mg/dL (8.5-10.1); CO2 25 mmol/L (21-32); GLUCOSE,RANDOM 99 mg/dL (74-106)
[2016-12-08] MEDS: ASPIRIN COATED 81 MG TABLET.EC PO SCH (09:16)
[2016-12-08] MEDS: HEPARIN - 25,000 UNIT in SODIUM CHLORIDE 495 ML IV SCH (09:24)
[2016-12-08] MEDS: VALSARTAN 80 MG TABLET (UD) PO SCH (10:00)
--- NOTE | 2016-12-08 10:23 | PN ---
Progress Note, Physician Chief Complaint: Events noted Post bilateral thrombectomy Hemodynamically stable History of Present Illness: Patient was seen and examined. Awake and alert. Chart was reviewed Denies chest pain, SOB or palpitations - Current Medication List Current Medications: Active Medications Aspirin (Ecotrin -) 81 mg PO DAILY [facility] Last Admin: 12/08/16 09:16 Dose: 81 mg Atorvastatin Calcium (Lipitor -) 40 mg PO HS [facility] Last Admin: 12/07/16 21:08 Dose: 40 mg Heparin Sodium (Porcine) (Heparin -) 5,000 unit IVPUSH PRN PRN PRN Reason: Heparin Last Admin: 12/08/16 09:25 Dose: 5,000 unit Heparin Sodium (Porcine) (Heparin -) 1,000 unit IVPUSH PRN PRN PRN Reason: Heparin Hydromorphone HCl (Dilaudid Injection -) 1 mg IVPB Q6H PRN PRN Reason: PAIN Last Admin: 12/08/16 09:31 Dose: 1 mg Heparin Sodium (Porcine) 25, (000 unit/ Sodium Chloride) 500 mls @ 20 mls/hr IV TITR CHELLY; 1,000 UNIT/HR PRN Reason: Protocol Last Admin: 12/08/16 09:24 Dose: 23 mls/hr Valsartan (Diovan -) 80 mg PO DAILY [facility] - Objective Vital Signs: Vital Signs Temperature 98 F 12/08/16 06:30 Pulse Rate 75 12/08/16 06:30 Respiratory Rate 17 12/08/16 06:30 Blood Pressure 121/55 12/08/16 06:30 O2 Sat by Pulse Oximetry (%) 100 12/07/16 19:30 Cardiovascular: Yes: Pulse Irregular, S1, S2 Respiratory: Yes: CTA Bilaterally Gastrointestinal: Yes: Normal Bowel Sounds, Soft. No: Tenderness Edema: No Additional Findings/Remarks: Review of Systems Constitutional: denies: Chills Cardiovascular: As noted above Respiratory: denies: Cough or Sputum Production Gastrointestinal: denies: Nausea, Vomiting, Diarrhea, Constipation or Abdominal Pain Musculoskeletal: reports: Bilateral Leg Discomfort Neurological: denies: Dizziness or Headache Labs: CBC, BMP 12/08/16 05:20 12/08/16 05:20 Problem List - Problems (1) Coronary artery disease Code(s): I25.10 - ATHSCL HEART DISEASE OF [place] CORONARY ARTERY W/O ANG PCTRS Qualifiers: Coronary Disease-Associated Artery/Lesion type: [place] artery [place] vs. transplanted heart: [place] heart Associated angina: without angina Qualified Code(s): I25.10 - Atherosclerotic heart disease of [place] coronary artery without angina pectoris (2) Hypertrophic cardiomyopathy Code(s): I42.2 - OTHER HYPERTROPHIC CARDIOMYOPATHY (3) Vascular occlusion Code(s): I99.8 - OTHER DISORDER OF CIRCULATORY SYSTEM (4) Atrial flutter Code(s): I48.92 - UNSPECIFIED ATRIAL FLUTTER Qualifiers: Atrial flutter type: atypical Qualified Code(s): I48.4 - Atypical atrial flutter (5) HTN (hypertension) Code(s): I10 - ESSENTIAL (PRIMARY) HYPERTENSION Qualifiers: Hypertension type: essential hypertension Qualified Code(s): I10 - Essential (primary) hypertension (6) Left ventricular systolic dysfunction Code(s): I51.9 - HEART DISEASE, UNSPECIFIED Assessment/Plan 1. Bilateral leg discomfort with evidence of vascular occlusion (occlusion of SFA bilaterally) likely embolic disease related to persistent AF with [id number] score of 6 on Heparin currently, on no therapy at home, poor compliance s/p angiogram + bilateral thrombectomy 2. CAD with evidence of demand ischemic injury, non obstructive CAD on coronary angiogrpahy angina pectoris 3. LV systolic/diastolic dysfunction, cannot rule out infiltrative cardiomyopathy, chronic class I-II NYHA classification, compensated/euvolemic. 4. Paroxysmal atypical atrial flutter/atrial tachycardia post cardioversion [id number] score of 6, recurrent arrhythmia, will require aviation medicine specialist A/C 5. HTN 6. History of CKD 7. Poor compliance with medical therapy administration and medical F/U 8. Tobacco abuse PLAN: 1. Continue Heparin and will require aviation medicine specialist A/C with Coumadin or NOAC considering the above noted presentation and [id number] score 6. Consider Eliquis 2. Vascular surgery follow up 3. Continue Carvedilol and Diovan and titrate as tolerated 4. Continue ASA 5. Continue Lipitor 6. Counselled smoking cessation and abstinence 7. Further cardiac evaluation can be done as outpatient Further plans are to follow Eliel Sam MD
[2016-12-08] MEDS ORDERED: APIXABAN 5 MG TABLET PO SCH ×2 (10:45)
--- NOTE | 2016-12-08 12:20 | PATH ---
Surgical Pathology Report Patient Name: CHRISTINE PILLAI [facility]. Rec. #: [id number] /Age/Gender: 1940 (Age: 76) / M Account: [id number] Location: [facility] PEDS/ADOL Taken: 12/06/2016 Received: 12/07/2016 Reported: 12/08/2016 Physicians: Garrett Rico Specimen(s) Received EMBOLUS Clinical History Vascular occlusion Final Diagnosis BLOOD VESSEL, SITE UNSPECIFIED, THROMBECTOMY: CLOTTED BLOOD. Electronically Signed Vitaly Gonzalez M.D. Gross Description Received in formalin labeled "embolus," is an 8.0 x 6.2 x 1.3 cm aggregate of multiple fragments of red-brown blood clot. Automobile Damage Appraiser sections are submitted in one cassette. /12/07/201612/07/2016
--- NOTE | 2016-12-08 13:01 | PN ---
Progress Note (short form) - Note Progress Note: Vascular Surgery Pt seen and examined. Bl lower ext warm. Minimal pain. Pt needs PT to ambulate Pt on xarelto for AC Garrett brewer DO
[2016-12-08] MEDS ORDERED: PT OWN MED DRAWER 7, Y5N ONE (14:39)
--- NOTE | 2016-12-08 14:39 | PN ---
Physical Exam: SUBJECTIVE: Patient seen and examined, EMR consulted. Overnight pt had mild groin pain at site of thrombectomy procedure, was given 1mg dilaudid IV and pain resolved. Pt reports no complaints this am, and he denies SOB, chest pain, or leg pain. He does endorse some new right ankle swelling. Pt states that he has not walked yet. OBJECTIVE: Vital Signs Period Temp Pulse Resp BP Sys/Ariza Pulse Ox Last 24 Hr 98 F-99.6 F 75-98 16-20 94-146/37-87 98-100 GENERAL: The patient is awake, alert, and fully oriented, in no acute distress. HEAD: Normal with no signs of trauma. EYES: PERRL, extraocular movements intact, sclera anicteric, conjunctiva clear. No ptosis. ENT: Ears normal, nares patent, oropharynx clear without exudates, moist mucous membranes. NECK: Trachea midline, full range of motion, supple. LUNGS: Breath sounds equal, clear to auscultation bilaterally, no wheezes, no crackles, no accessory muscle use. HEART: Regular rate and rhythm, S1, S2 without murmur, rub or gallop. ABDOMEN: Soft, nontender, nondistended, normoactive bowel sounds, no guarding, no rebound, no hepatosplenomegaly, no masses. EXTREMITIES: b/l approximately 8cm groin incisions closed with pancho are clean , dry, and intact without erythema or other signs of infection. both legs are warm to touch with intact motor and sensory function. Right foot and ankle demonstrates 1+ pitting edema. b/l 1+ dorsalis pedis pulses palpated. NEUROLOGICAL: Cranial nerves II through XII grossly intact. Normal speech, gait not observed. PSYCH: Normal mood, normal affect. SKIN: Warm, dry, normal turgor, no rashes or lesions noted Laboratory Results - last 24 hr 12/08/16 12/08/16 12/08/16 05:20 05:20 05:20 WBC 10.6 H RBC 3.78 L Hgb 11.7 Hct 35.4 MCV 93.7 MCH 31.0 MCHC 33.1 RDW 14.8 Plt Count 307 MPV 9.6 PTT (Actin FS) 34.4 D Sodium 139 Potassium 4.8 Chloride 105 Carbon Dioxide 25 Anion Gap 9 BUN 22 H D Creatinine 1.0 Random Glucose 99 Calcium 7.7 L Active Medications Generic Name Dose Route Start Last Admin Trade Name Enricoq PRN Reason Stop Dose Admin Aspirin 81 mg 12/08/16 10:00 12/08/16 09:16 Ecotrin - PO 81 mg DAILY CHELLY Administration Atorvastatin Calcium 40 mg 12/07/16 22:00 12/07/16 21:08 Lipitor - PO 40 mg HS CHELLY Administration Heparin Sodium (Porcine) 5,000 unit 12/07/16 19:28 12/08/16 09:25 Heparin - IVPUSH 5,000 unit PRN PRN Administration Heparin Heparin Sodium (Porcine) 1,000 unit 12/07/16 19:28 Heparin - IVPUSH PRN PRN Heparin Hydromorphone HCl 1 mg 12/07/16 19:28 12/08/16 09:31 Dilaudid Injection - IVPB 1 mg Q6H PRN Administration PAIN Heparin Sodium (Porcine) 25, 500 mls @ 20 mls/hr 12/07/16 19:28 12/08/16 09:24 000 unit/ Sodium Chloride IV 23 mls/hr TITR CHELLY Administration Protocol 1,000 UNIT/HR Rivaroxaban 20 mg 12/08/16 14:00 Xarelto - PO DAILY [facility] Valsartan 80 mg 12/08/16 10:00 Diovan - PO DAILY [facility] ASSESSMENT/PLAN: 76 year old man with a history of hypertrophic cardiomyopathy, non-obstructive CAD, chronic systolic/diastolic HF, HTN, PAF who presented to the ER with right leg pain found to be 2/2 PAD/thromboembolic disease, post-op day #2 s/p b/l leg thrombectomy, currently stable and improving. #RLE pain secondary to PAD/thromboembolic disease - s/p b/l thrombectomy on 12/06 - pain control with dilaudid 1mg IV q6h PRN - cardio agrees that xarelto is a suitable option for pt - heparin IV discontinued, xarelto started - awaiting prior authorization for xarelto to discharge pt home on it - f/u PT evaluation #Paroxysmal atrial fibrillation/flutter - Patient reported that he did not start taking Eliquis secondary to ongoing dental work - Continue Coreg 6.25mg PO BID and valsartan 80mg PO qd - xarelto started #CAD, non-obstructive - Continue aspirin 81, Coreg 6.25mg BID, atorvastatin 40mg qd #Chronic systolic and diastolic heart failure - Stable - Continue Coreg 6.25mg PO BID and valsartan 80mg PO qd #Hypertrophic cardiomyopathy -Coreg 6.25mg PO BID and valsartan 80mg PO qd #HTN - Continue Coreg 6.25mg PO BID and valsartan 80mg PO qd #Nicotine dependence - Discussed smoking cessation #FEN/GI -not on fluids -electrolytes wnl -diabetic diet -not on GI ppx #Dispo -pending PT lisha prior authorization -- Jono Huynh MD PGY1 Problem List - Problems (1) Coronary artery disease Code(s): I25.10 - ATHSCL HEART DISEASE OF [place] CORONARY ARTERY W/O ANG PCTRS Qualifiers: Coronary Disease-Associated Artery/Lesion type: [place] artery [place] vs. transplanted heart: [place] heart Associated angina: without angina Qualified Code(s): I25.10 - Atherosclerotic heart disease of [place] coronary artery without angina pectoris (2) Heart failure Code(s): I50.9 - HEART FAILURE, UNSPECIFIED (3) Hypertrophic cardiomyopathy Code(s): I42.2 - OTHER HYPERTROPHIC CARDIOMYOPATHY (4) Nicotine dependence Code(s): F17.200 - NICOTINE DEPENDENCE, UNSPECIFIED, UNCOMPLICATED Visit type - Emergency Visit Emergency Visit: Yes ED Registration Date: 12/03/16 Care time: The patient presented to the Emergency Department on the above date and was hospitalized for further evaluation of their emergent condition. - New Patient This patient is new to me today: No - Critical Care Critical Care patient: No
[2016-12-08] MEDS: RIVAROXABAN 20 MG TABLET PO SCH (15:14)
--- NOTE | 2016-12-08 18:41 | PN ---
Teaching Attending Note Name of Resident: Jono Huynh ATTENDING PHYSICIAN STATEMENT I saw and evaluated the patient. I reviewed the resident's note and discussed the case with the resident. I agree with the resident's findings and plan as documented. SUBJECTIVE: Patient is feeling better. no fever or chills. OBJECTIVE: Vital Signs Temperature 98.7 F 12/08/16 16:00 Pulse Rate 92 H 12/08/16 16:00 Respiratory Rate 17 12/08/16 16:00 Blood Pressure 99/58 12/08/16 16:00 O2 Sat by Pulse Oximetry (%) 98 12/08/16 10:00 CBCD WBC 10.6 K/mm3 (4.0-10.0) H 12/08/16 05:20 RBC 3.78 M/mm3 (4.00-5.60) L 12/08/16 05:20 Hgb 11.7 GM/dL (11.7-16.9) 12/08/16 05:20 Hct 35.4 % (35.4-49) 12/08/16 05:20 MCV 93.7 fl (80-96) 12/08/16 05:20 MCHC 33.1 g/dl (32.0-35.9) 12/08/16 05:20 RDW 14.8 % (11.9-15.9) 12/08/16 05:20 Plt Count 307 K/MM3 (134-434) 12/08/16 05:20 MPV 9.6 fl (7.5-11.1) 12/08/16 05:20 CMP Sodium 139 mmol/L (136-145) 12/08/16 05:20 Potassium 4.8 mmol/L (3.5-5.1) 12/08/16 05:20 Chloride 105 mmol/L (98-107) 12/08/16 05:20 Carbon Dioxide 25 mmol/L (21-32) 12/08/16 05:20 Anion Gap 9 (8-16) 12/08/16 05:20 BUN 22 mg/dL (7-18) H D 12/08/16 05:20 Creatinine 1.0 mg/dL (0.7-1.3) 12/08/16 05:20 Creat Clearance w eGFR > 60 (>60) 12/04/16 06:30 Random Glucose 99 mg/dL (74-106) 12/08/16 05:20 Calcium 7.7 mg/dL (8.5-10.1) L 12/08/16 05:20 Total Bilirubin 0.5 mg/dL (0.2-1.0) D 12/04/16 06:30 AST 15 U/L (15-37) 12/04/16 06:30 ALT 17 U/L (12-78) 12/04/16 06:30 Alkaline Phosphatase 65 U/L (45-117) 12/04/16 06:30 Total Protein 6.1 g/dl (6.4-8.2) L 12/04/16 06:30 Albumin 2.4 g/dl (3.4-5.0) L 12/04/16 06:30 CARDIAC ENZYMES Creatine Kinase 282 IU/L (39-308) 12/03/16 18:45 Troponin I 0.50 ng/ml (0.00-0.05) H 12/05/16 05:35 Current Medications Generic Name Dose Route Start Last Admin Trade Name Nkechi PRN Reason Stop Dose Admin Aspirin 81 mg 12/08/16 10:00 12/08/16 09:16 Ecotrin - PO 81 mg DAILY CHELLY Administration Atorvastatin Calcium 40 mg 12/07/16 22:00 12/07/16 21:08 Lipitor - PO 40 mg HS CHELLY Administration Heparin Sodium (Porcine) 5,000 unit 12/07/16 19:28 12/08/16 09:25 Heparin - IVPUSH 5,000 unit PRN PRN Administration Heparin Heparin Sodium (Porcine) 1,000 unit 12/07/16 19:28 Heparin - IVPUSH PRN PRN Heparin Hydromorphone HCl 1 mg 12/07/16 19:28 12/08/16 16:19 Dilaudid Injection - IVPB 1 mg Q6H PRN Administration PAIN Heparin Sodium (Porcine) 25, 500 mls @ 20 mls/hr 12/07/16 19:28 12/08/16 09:24 000 unit/ Sodium Chloride IV 23 mls/hr TITR CHELLY Administration Protocol 1,000 UNIT/HR Rivaroxaban 20 mg 12/08/16 14:00 12/08/16 15:14 Xarelto - PO 20 mg DAILY [facility] Administration Valsartan 80 mg 12/08/16 10:00 12/08/16 10:00 Diovan - PO Not Given DAILY [facility] Home Medications Medication Instructions Recorded Rivaroxaban [Xarelto -] 20 mg PO DAILY #30 tablet 12/08/16 PE: palpable pulses of lower extremities, warm to touch. Bl pancho of LEs site is clean rest of PE per resident's note CTA report with possible thrombus in R common femoral artery and decreased flow on both sides. ASSESSMENT AND PLAN: This is a 76 year old man with a history of hypertrophic cardiomyopathy, non- obstructive CAD, chronic systolic/diastolic HF, HTN, PAF who presented to the ER with right leg pain # Acute arterial occlusion of Right lower extremity s/p b/l thrombectomy (12/06) by Vascular Dr.Nirav Rico , will discontinue Heparin drip and start the patient on Xarelto ,patient needs mcc AC. As per Vascular to send the patient on Xarelto , his insurance covers Xarelto. # A fib : on Xarelto discontinue heparin drip , on coreg continue, needs mcc AC # CAD: cont ASA and statin # Hx of chronic Systolic and diastolic heart failure . Euvolemic . echo reviewed, cont to monitor . cont diovan DVT PX: Xarelto
[2016-12-08] MEDS: ATORVASTATIN CA 40 MG TABLET (FP) PO SCH (22:24)
[2016-12-09] MEDS: HYDROmorphone HCL CARPU-JECT 1 MG/1 ML DISP.SYRIN IVPB PRN ×2 (06:42→17:07)
--- NOTE | 2016-12-09 10:21 | PN ---
Progress Note, Physician Chief Complaint: Events noted Post bilateral thrombectomy Hemodynamically stable Not in distress History of Present Illness: Patient was seen and examined. Awake and alert. Chart was reviewed Denies chest pain, SOB or palpitations - Current Medication List Current Medications: Active Medications Aspirin (Ecotrin -) 81 mg PO DAILY [facility] Last Admin: 12/08/16 09:16 Dose: 81 mg Atorvastatin Calcium (Lipitor -) 40 mg PO HS [facility] Last Admin: 12/08/16 22:24 Dose: 40 mg Carvedilol (Coreg -) 6.25 mg PO BID [facility] Hydromorphone HCl (Dilaudid Injection -) 1 mg IVPB Q6H PRN PRN Reason: PAIN Last Admin: 12/09/16 06:42 Dose: 1 mg Rivaroxaban (Xarelto -) 20 mg PO DAILY [facility] Last Admin: 12/08/16 15:14 Dose: 20 mg Valsartan (Diovan -) 80 mg PO DAILY [facility] Last Admin: 12/08/16 10:00 Dose: Not Given - Objective Vital Signs: Vital Signs Temperature 97.7 F 12/09/16 06:00 Pulse Rate 85 12/09/16 06:00 Respiratory Rate 18 12/09/16 06:00 Blood Pressure 99/65 12/09/16 06:00 O2 Sat by Pulse Oximetry (%) 92 L 12/08/16 21:00 Neck: Yes: Supple Cardiovascular: Yes: Pulse Irregular, S1, S2 Respiratory: Yes: CTA Bilaterally Gastrointestinal: Yes: Normal Bowel Sounds, Soft. No: Tenderness Edema: No Additional Findings/Remarks: Review of Systems Constitutional: denies: Chills Cardiovascular: As noted above Respiratory: denies: Cough or Sputum Production Gastrointestinal: denies: Nausea, Vomiting, Diarrhea, Constipation or Abdominal Pain Musculoskeletal: reports: Bilateral Leg Discomfort - improved Neurological: denies: Dizziness or Headache Labs: CBC, BMP 12/08/16 05:20 12/08/16 05:20 Problem List - Problems (1) Coronary artery disease Code(s): I25.10 - ATHSCL HEART DISEASE OF [place] CORONARY ARTERY W/O ANG PCTRS Qualifiers: Coronary Disease-Associated Artery/Lesion type: [place] artery [place] vs. transplanted heart: [place] heart Associated angina: without angina Qualified Code(s): I25.10 - Atherosclerotic heart disease of [place] coronary artery without angina pectoris (2) Hypertrophic cardiomyopathy Code(s): I42.2 - OTHER HYPERTROPHIC CARDIOMYOPATHY (3) Vascular occlusion Code(s): I99.8 - OTHER DISORDER OF CIRCULATORY SYSTEM (4) Atrial flutter Code(s): I48.92 - UNSPECIFIED ATRIAL FLUTTER Qualifiers: Atrial flutter type: atypical Qualified Code(s): I48.4 - Atypical atrial flutter (5) HTN (hypertension) Code(s): I10 - ESSENTIAL (PRIMARY) HYPERTENSION Qualifiers: Hypertension type: essential hypertension Qualified Code(s): I10 - Essential (primary) hypertension (6) Left ventricular systolic dysfunction Code(s): I51.9 - HEART DISEASE, UNSPECIFIED Assessment/Plan 1. Bilateral leg discomfort with evidence of vascular occlusion (occlusion of SFA bilaterally) likely embolic disease related to persistent AF with [id number] score of 6 on no therapy at home, poor compliance s/p angiogram + bilateral thrombectomy now on Xarelto 2. CAD with evidence of demand ischemic injury, non obstructive CAD on coronary angiogrpahy angina pectoris 3. LV systolic/diastolic dysfunction, cannot rule out infiltrative cardiomyopathy, chronic class I-II NYHA classification, compensated/euvolemic. 4. Paroxysmal atypical atrial flutter/atrial tachycardia post cardioversion [id number] score of 6, recurrent arrhythmia (AF) 5. HTN 6. History of CKD 7. Poor compliance with medical therapy administration and medical F/U 8. Tobacco abuse PLAN: 1. Currently on Xarelto (as he wants once a day regimen for compliance) considering the above noted presentation and [id number] score 6. 2. Vascular surgery follow up - post op care 3. Continue Carvedilol and Diovan and titrate as tolerated 4. Continue ASA 5. Continue Lipitor 6. Counselled smoking cessation and abstinence 7. Further cardiac evaluation can be done as outpatient Further plans are to follow Eliel Sam MD
[2016-12-09] MEDS ORDERED: PT OWN MED DRAWER 7, Y5N ONE (10:53)
[2016-12-09] MEDS: ASPIRIN COATED 81 MG TABLET.EC PO SCH (10:54)
[2016-12-09] MEDS: VALSARTAN 80 MG TABLET (UD) PO SCH (10:55)
[2016-12-09] MEDS: CARVEDILOL 6.25 MG TABLET (FP) PO SCH ×2 (10:55→21:10)
[2016-12-09] MEDS: RIVAROXABAN 20 MG TABLET PO SCH (10:55)
--- NOTE | 2016-12-09 16:21 | PN ---
Physical Exam: SUBJECTIVE: Patient seen and examined. Pt was able to walk about 30 feet with PT yesterday without pain. No acute events overnight. Pt reports no new complaints. He denies SOB, chest pain, or leg pain. He states that his feet are still slightly swollen since the procedure. OBJECTIVE: Vital Signs Period Temp Pulse Resp BP Sys/Ariza Pulse Ox Last 24 Hr 97.7 F-99.3 F 78-115 16-20 95-137/50-80 92 GENERAL: The patient is awake, alert, and fully oriented, in no acute distress. HEAD: Normal with no signs of trauma. EYES: PERRL, extraocular movements intact, sclera anicteric, conjunctiva clear. No ptosis. ENT: Ears normal, nares patent, oropharynx clear without exudates, moist mucous membranes. NECK: Trachea midline, full range of motion, supple. LUNGS: Breath sounds equal, clear to auscultation bilaterally, no wheezes, no crackles, no accessory muscle use. HEART: Regular rate and rhythm, S1, S2 without murmur, rub or gallop. ABDOMEN: Soft, nontender, nondistended, normoactive bowel sounds, no guarding, no rebound, no hepatosplenomegaly, no masses. B/l groin incision sites are about 8cm with pancho, are clean, dry, and intact without signs of infection. EXTREMITIES: B/l lower extremities are warm to touch without tenderness to palpation. motor function and sensory function are normal. dorsalis pedis pulses 1+ b/l. NEUROLOGICAL: Cranial nerves II through XII grossly intact. Normal speech, gait not observed. PSYCH: Normal mood, normal affect. SKIN: Warm, dry, normal turgor, no rashes or lesions noted Laboratory Results - last 24 hr 12/08/16 12/09/16 14:45 07:00 PTT (Actin FS) 36.1 H 35.0 H Active Medications Generic Name Dose Route Start Last Admin Trade Name Freq PRN Reason Stop Dose Admin Aspirin 81 mg 12/08/16 10:12/09/16 10:54 Ecotrin - PO 81 mg DAILY CHELLY Administration Atorvastatin Calcium 40 mg 12/07/16 22:00 12/08/16 22:24 Lipitor - PO 40 mg HS CHELLY Administration Carvedilol 6.25 mg 12/09/16 10:00 12/09/16 10:55 Coreg - PO 6.25 mg BID CHELLY Administration Enoxaparin Sodium 100 mg 12/10/16 09:00 Lovenox - SQ BID [facility] Hydromorphone HCl 1 mg 12/07/16 19:28 12/09/16 06:42 Dilaudid Injection - IVPB 1 mg Q6H PRN Administration PAIN Valsartan 80 mg 12/08/16 10:00 12/09/16 10:55 Diovan - PO 80 mg DAILY [facility] Administration Warfarin Sodium 5 mg 12/09/16 18:00 Coumadin - PO DAILY@1800 [facility] ASSESSMENT/PLAN: 76 year old man with a history of hypertrophic cardiomyopathy, non-obstructive CAD, chronic systolic/diastolic HF, HTN, PAF who presented to the ER with right leg pain found to be 2/2 PAD/thromboembolic disease, post-op day #3 s/p b/l leg thrombectomy, currently stable and improving. #RLE pain secondary to PAD/thromboembolic disease - s/p b/l thrombectomy on 12/06 - pain control with dilaudid 1mg IV q6h PRN - pt's insurance does not cover xarelto or other NOACs at [facility] for [facility], so coumadin will be used for long-term AC. -consulted with cardio. coumadin 5mg started tonight and lovenox 1mg/kg BID started romeo morning. -serial INRs until therapeutic INR - f/u PT evaluation #Paroxysmal atrial fibrillation/flutter - Patient reported that he did not start taking Eliquis secondary to ongoing dental work - Continue Coreg 6.25mg PO BID and valsartan 80mg PO qd #CAD, non-obstructive - Continue aspirin 81, Coreg 6.25mg BID, atorvastatin 40mg qd #Chronic systolic and diastolic heart failure - Stable - Continue Coreg 6.25mg PO BID and valsartan 80mg PO qd #Hypertrophic cardiomyopathy -Coreg 6.25mg PO BID and valsartan 80mg PO qd #HTN - Continue Coreg 6.25mg PO BID and valsartan 80mg PO qd #Nicotine dependence - Discussed smoking cessation #FEN/GI -not on fluids -electrolytes wnl -diabetic diet -not on GI ppx #Dispo -pending PT eval and obtaining therapeutic INR for d/c on coumadin -- Jono Huynh MD PGY1 Problem List - Problems (1) Coronary artery disease Code(s): I25.10 - ATHSCL HEART DISEASE OF [place] CORONARY ARTERY W/O ANG PCTRS Qualifiers: Coronary Disease-Associated Artery/Lesion type: [place] artery [place] vs. transplanted heart: [place] heart Associated angina: without angina Qualified Code(s): I25.10 - Atherosclerotic heart disease of [place] coronary artery without angina pectoris (2) Heart failure Code(s): I50.9 - HEART FAILURE, UNSPECIFIED (3) Hypertrophic cardiomyopathy Code(s): I42.2 - OTHER HYPERTROPHIC CARDIOMYOPATHY (4) Nicotine dependence Code(s): F17.200 - NICOTINE DEPENDENCE, UNSPECIFIED, UNCOMPLICATED Visit type - Emergency Visit Emergency Visit: Yes ED Registration Date: 12/03/16 Care time: The patient presented to the Emergency Department on the above date and was hospitalized for further evaluation of their emergent condition. - New Patient This patient is new to me today: No - Critical Care Critical Care patient: No
--- NOTE | 2016-12-09 17:47 | PN ---
Teaching Attending Note Name of Resident: Jono Huynh ATTENDING PHYSICIAN STATEMENT I saw and evaluated the patient. I reviewed the resident's note and discussed the case with the resident. I agree with the resident's findings and plan as documented. SUBJECTIVE: Feeling better, legs are improving. OBJECTIVE: Vital Signs Temperature 98.9 F 12/09/16 14:00 Pulse Rate 93 H 12/09/16 15:35 Respiratory Rate 20 12/09/16 15:35 Blood Pressure 118/53 12/09/16 15:35 O2 Sat by Pulse Oximetry (%) 92 L 12/08/16 21:00 CBCD WBC 10.6 K/mm3 (4.0-10.0) H 12/08/16 05:20 RBC 3.78 M/mm3 (4.00-5.60) L 12/08/16 05:20 Hgb 11.7 GM/dL (11.7-16.9) 12/08/16 05:20 Hct 35.4 % (35.4-49) 12/08/16 05:20 MCV 93.7 fl (80-96) 12/08/16 05:20 MCHC 33.1 g/dl (32.0-35.9) 12/08/16 05:20 RDW 14.8 % (11.9-15.9) 12/08/16 05:20 Plt Count 307 K/MM3 (134-434) 12/08/16 05:20 MPV 9.6 fl (7.5-11.1) 12/08/16 05:20 CMP Sodium 139 mmol/L (136-145) 12/08/16 05:20 Potassium 4.8 mmol/L (3.5-5.1) 12/08/16 05:20 Chloride 105 mmol/L (98-107) 12/08/16 05:20 Carbon Dioxide 25 mmol/L (21-32) 12/08/16 05:20 Anion Gap 9 (8-16) 12/08/16 05:20 BUN 22 mg/dL (7-18) H D 12/08/16 05:20 Creatinine 1.0 mg/dL (0.7-1.3) 12/08/16 05:20 Creat Clearance w eGFR > 60 (>60) 12/04/16 06:30 Random Glucose 99 mg/dL (74-106) 12/08/16 05:20 Calcium 7.7 mg/dL (8.5-10.1) L 12/08/16 05:20 Total Bilirubin 0.5 mg/dL (0.2-1.0) D 12/04/16 06:30 AST 15 U/L (15-37) 12/04/16 06:30 ALT 17 U/L (12-78) 12/04/16 06:30 Alkaline Phosphatase 65 U/L (45-117) 12/04/16 06:30 Total Protein 6.1 g/dl (6.4-8.2) L 12/04/16 06:30 Albumin 2.4 g/dl (3.4-5.0) L 12/04/16 06:30 CARDIAC ENZYMES Creatine Kinase 282 IU/L (39-308) 12/03/16 18:45 Troponin I 0.50 ng/ml (0.00-0.05) H 12/05/16 05:35 Current Medications Generic Name Dose Route Start Last Admin Trade Name Nkechi PRN Reason Stop Dose Admin Aspirin 81 mg 12/08/16 10:00 12/09/16 10:54 Ecotrin - PO 81 mg DAILY [facility] Administration Atorvastatin Calcium 40 mg 12/07/16 22:00 12/08/16 22:24 Lipitor - PO 40 mg HS [facility] Administration Carvedilol 6.25 mg 12/09/16 10:00 12/09/16 10:55 Coreg - PO 6.25 mg BID [facility] Administration Enoxaparin Sodium 100 mg 12/10/16 09:00 Lovenox - SQ BID@0900,2100 [facility] Hydromorphone HCl 1 mg 12/07/16 19:28 12/09/16 17:07 Dilaudid Injection - IVPB 1 mg Q6H PRN Administration PAIN Valsartan 80 mg 12/08/16 10:00 12/09/16 10:55 Diovan - PO 80 mg DAILY [facility] Administration Warfarin Sodium 5 mg 12/09/16 18:00 Coumadin - PO DAILY@1800 [facility] Home Medications Medication Instructions Recorded Rivaroxaban [Xarelto -] 20 mg PO DAILY #30 tablet 12/08/16 PE: palpable pulses of lower extremities, warm to touch. Bl pancho of LEs site is clean rest of PE per resident's note CTA report with possible thrombus in R common femoral artery and decreased flow on both sides. ASSESSMENT AND PLAN: This is a 76 year old man with a history of hypertrophic cardiomyopathy, non- obstructive CAD, chronic systolic/diastolic HF, HTN, PAF who presented to the ER with right leg pain # Acute arterial occlusion of Right lower extremity s/p b/l thrombectomy (12/06) by Vascular Dr.Nirav Rico , will discontinue Heparin drip and start the patient on Coumadin with Lovenox bridging now since insurance is not covering the Xarelto ,patient needs long term care administrator AC. As per Vascular to send the patient home on coumadin, Lovenox to bridge # A fib : on Coumadin/lovenox , coreg continue, needs halfway AC # CAD: cont ASA and statin # Hx of chronic Systolic and diastolic heart failure . Euvolemic . echo reviewed, cont to monitor . cont diovan DVT PX: lovenox, coumadin
[2016-12-09] MEDS ORDERED: WARFARIN NA 5 MG TABLET (UD) PO SCH (18:00)
[2016-12-09] MEDS ORDERED: WARFARIN NA 5 MG TABLET (UD) PO ONE (18:00)
[2016-12-09] MEDS: ATORVASTATIN CA 40 MG TABLET (FP) PO SCH (21:10)
[2016-12-10] MEDS: HYDROmorphone HCL CARPU-JECT 1 MG/1 ML DISP.SYRIN IVPB PRN ×3 (00:23→15:36)
[2016-12-10 08:58] LABS: INR 1.44 (0.82-1.09)
[2016-12-10] MEDS: CARVEDILOL 6.25 MG TABLET (FP) PO SCH ×2 (09:16→21:19)
[2016-12-10] MEDS: ASPIRIN COATED 81 MG TABLET.EC PO SCH (09:16)
[2016-12-10] MEDS: ENOXAPARIN NA (PORCINE) 100 MG/1 ML DISP.SYRIN SQ SCH ×2 (09:16→21:19)
[2016-12-10] MEDS: VALSARTAN 80 MG TABLET (UD) PO SCH (09:17)
--- NOTE | 2016-12-10 10:50 | PN ---
Progress Note, Physician Chief Complaint: Events noted Post bilateral thrombectomy Hemodynamically stable Not in distress History of Present Illness: Patient was seen and examined. Awake and alert. Chart was reviewed Denies chest pain, SOB or palpitations - Current Medication List Current Medications: Active Medications Aspirin (Ecotrin -) 81 mg PO DAILY [facility] Last Admin: 12/10/16 09:16 Dose: 81 mg Atorvastatin Calcium (Lipitor -) 40 mg PO HS [facility] Last Admin: 12/09/16 21:10 Dose: 40 mg Carvedilol (Coreg -) 6.25 mg PO BID [facility] Last Admin: 12/10/16 09:16 Dose: 6.25 mg Enoxaparin Sodium (Lovenox -) 100 mg SQ BID@0900,2100 [facility] Last Admin: 12/10/16 09:16 Dose: 100 mg Hydromorphone HCl (Dilaudid Injection -) 1 mg IVPB Q6H PRN PRN Reason: PAIN Last Admin: 12/10/16 08:22 Dose: 1 mg Valsartan (Diovan -) 80 mg PO DAILY [facility] Last Admin: 12/10/16 09:17 Dose: 80 mg Warfarin Sodium (Coumadin -) 5 mg PO DAILY@1800 [facility] Last Admin: 12/09/16 18:20 Dose: 5 mg - Objective Vital Signs: Vital Signs Temperature 98.6 F 12/10/16 10:00 Pulse Rate 87 12/10/16 10:00 Respiratory Rate 20 12/10/16 10:00 Blood Pressure 116/75 12/10/16 10:00 O2 Sat by Pulse Oximetry (%) 92 L 12/08/16 21:00 Neck: Yes: Supple Cardiovascular: Yes: Pulse Irregular, S1, S2 Respiratory: Yes: CTA Bilaterally Gastrointestinal: Yes: Normal Bowel Sounds, Soft. No: Tenderness Edema: Yes Edema: RLE: Trace Additional Findings/Remarks: Review of Systems Constitutional: denies: Chills Cardiovascular: As noted above Respiratory: denies: Cough or Sputum Production Gastrointestinal: denies: Nausea, Vomiting, Diarrhea, Constipation or Abdominal Pain Musculoskeletal: reports: Bilateral Leg Discomfort - improved Neurological: denies: Dizziness or Headache Labs: INR, PTT INR 1.44 (0.82-1.09) H D 12/10/16 06:00 Problem List - Problems (1) Coronary artery disease Code(s): I25.10 - ATHSCL HEART DISEASE OF [place] CORONARY ARTERY W/O ANG PCTRS Qualifiers: Coronary Disease-Associated Artery/Lesion type: [place] artery [place] vs. transplanted heart: [place] heart Associated angina: without angina Qualified Code(s): I25.10 - Atherosclerotic heart disease of [place] coronary artery without angina pectoris (2) Hypertrophic cardiomyopathy Code(s): I42.2 - OTHER HYPERTROPHIC CARDIOMYOPATHY (3) Vascular occlusion Code(s): I99.8 - OTHER DISORDER OF CIRCULATORY SYSTEM (4) Atrial flutter Code(s): I48.92 - UNSPECIFIED ATRIAL FLUTTER Qualifiers: Atrial flutter type: atypical Qualified Code(s): I48.4 - Atypical atrial flutter (5) HTN (hypertension) Code(s): I10 - ESSENTIAL (PRIMARY) HYPERTENSION Qualifiers: Hypertension type: essential hypertension Qualified Code(s): I10 - Essential (primary) hypertension (6) Left ventricular systolic dysfunction Code(s): I51.9 - HEART DISEASE, UNSPECIFIED Assessment/Plan 1. Bilateral leg discomfort with evidence of vascular occlusion (occlusion of SFA bilaterally) likely embolic disease related to persistent AF with [id number] score of 6 on no therapy at home, poor compliance s/p angiogram + bilateral thrombectomy now on Xarelto 2. CAD with evidence of demand ischemic injury, non obstructive CAD on coronary angiogrpahy angina pectoris 3. LV systolic/diastolic dysfunction, cannot rule out infiltrative cardiomyopathy, chronic class I-II NYHA classification, compensated/euvolemic. 4. Paroxysmal atypical atrial flutter/atrial tachycardia post cardioversion [id number] score of 6, recurrent arrhythmia (AF) 5. HTN 6. History of CKD 7. Poor compliance with medical therapy administration and medical F/U 8. Tobacco abuse PLAN: 1. Currently on Xarelto (as he wants once a day regimen for compliance) considering the above noted presentation and [id number] score 6. 2. Vascular surgery follow up - Conitnue post op care 3. Continue Carvedilol and Diovan and titrate as tolerated 4. Continue ASA 5. Continue Lipitor 6. Counselled smoking cessation and abstinence 7. Further cardiac evaluation can be done as outpatient Further plans are to follow Eliel Sam MD
--- NOTE | 2016-12-10 17:13 | PN ---
Progress Note (short form) - Note Progress Note: Patient is doing better, with no acute distress, legs are better Vital Signs Temperature 97.5 F L 12/10/16 14:00 Pulse Rate 80 12/10/16 14:00 Respiratory Rate 18 12/10/16 14:00 Blood Pressure 137/95 12/10/16 14:00 O2 Sat by Pulse Oximetry (%) 96 12/10/16 09:00 GENERAL: The patient is awake, alert, and fully oriented, in no acute distress. HEAD: Normal with no signs of trauma. EYES: PERRL, extraocular movements intact, sclera anicteric, conjunctiva clear. ENT: Ears normal, oropharynx clear without exudates, moist mucous membranes. NECK: Trachea midline, full range of motion, supple. LUNGS: Breath sounds equal, clear to auscultation bilaterally, no wheezes, no crackles, no accessory muscle use. HEART: Regular rate and rhythm, S1, S2 without murmur, rub or gallop. ABDOMEN: Soft, nontender, nondistended, normoactive bowel sounds, no guarding, no rebound, no hepatosplenomegaly, no masses. EXTREMITIES: b/l approximately 8cm groin incisions closed with pancho are clean , dry, and intact without erythema or other signs of infection. both legs are warm to touch with intact motor and sensory function. pulses are POsitive NEUROLOGICAL: Cranial nerves II through XII grossly intact. Normal speech, gait not observed. PSYCH: Normal mood, normal affect. SKIN: Warm, dry, normal turgor, no rashes or lesions noted CBCD WBC 10.6 K/mm3 (4.0-10.0) H 12/08/16 05:20 RBC 3.78 M/mm3 (4.00-5.60) L 12/08/16 05:20 Hgb 11.7 GM/dL (11.7-16.9) 12/08/16 05:20 Hct 35.4 % (35.4-49) 12/08/16 05:20 MCV 93.7 fl (80-96) 12/08/16 05:20 MCHC 33.1 g/dl (32.0-35.9) 12/08/16 05:20 RDW 14.8 % (11.9-15.9) 12/08/16 05:20 Plt Count 307 K/MM3 (134-434) 12/08/16 05:20 MPV 9.6 fl (7.5-11.1) 12/08/16 05:20 CMP Sodium 139 mmol/L (136-145) 12/08/16 05:20 Potassium 4.8 mmol/L (3.5-5.1) 12/08/16 05:20 Chloride 105 mmol/L (98-107) 12/08/16 05:20 Carbon Dioxide 25 mmol/L (21-32) 12/08/16 05:20 Anion Gap 9 (8-16) 12/08/16 05:20 BUN 22 mg/dL (7-18) H D 12/08/16 05:20 Creatinine 1.0 mg/dL (0.7-1.3) 12/08/16 05:20 Creat Clearance w eGFR > 60 (>60) 12/04/16 06:30 Random Glucose 99 mg/dL (74-106) 12/08/16 05:20 Calcium 7.7 mg/dL (8.5-10.1) L 12/08/16 05:20 Total Bilirubin 0.5 mg/dL (0.2-1.0) D 12/04/16 06:30 AST 15 U/L (15-37) 12/04/16 06:30 ALT 17 U/L (12-78) 12/04/16 06:30 Alkaline Phosphatase 65 U/L (45-117) 12/04/16 06:30 Total Protein 6.1 g/dl (6.4-8.2) L 12/04/16 06:30 Albumin 2.4 g/dl (3.4-5.0) L 12/04/16 06:30 CARDIAC ENZYMES Creatine Kinase 282 IU/L (39-308) 12/03/16 18:45 Troponin I 0.50 ng/ml (0.00-0.05) H 12/05/16 05:35 Current Medications Generic Name Dose Route Start Last Admin Trade Name Freq PRN Reason Stop Dose Admin Aspirin 81 mg 12/08/16 10:00 12/10/16 09:16 Ecotrin - PO 81 mg DAILY [facility] Administration Atorvastatin Calcium 40 mg 12/07/16 22:00 12/09/16 21:10 Lipitor - PO 40 mg HS [facility] Administration Carvedilol 6.25 mg 12/09/16 10:00 12/10/16 09:16 Coreg - PO 6.25 mg BID [facility] Administration Enoxaparin Sodium 100 mg 12/10/16 09:00 12/10/16 09:16 Lovenox - SQ 100 mg BID@0900,2100 [facility] Administration Hydromorphone HCl 1 mg 12/07/16 19:28 12/10/16 15:36 Dilaudid Injection - IVPB 1 mg Q6H PRN Administration PAIN Valsartan 80 mg 12/08/16 10:00 12/10/16 09:17 Diovan - PO 80 mg DAILY [facility] Administration Warfarin Sodium 7.5 mg 12/10/16 18:00 Coumadin - PO 12/10/16 18:01 ONCE@1800 [facility] Medication Instructions Recorded Rivaroxaban [Xarelto -] 20 mg PO DAILY #30 tablet 12/08/16 INR 1.44 CTA report with possible thrombus in R common femoral artery and decreased flow on both sides. ASSESSMENT AND PLAN: This is a 76 year old man with a history of hypertrophic cardiomyopathy, non- obstructive CAD, chronic systolic/diastolic HF, HTN, PAF who presented to the ER with right leg pain # Acute arterial occlusion of Right lower extremity s/p b/l thrombectomy (12/06) by Vascular Dr.Nirav Rico , will discontinue Heparin drip and start the patient on coumadin with bridgening Lovenox ,patient needs nursing home AC. As per Vascular to send the patient on coumadin # A fib : on coumadin 7.5mg tonight, PT/INR daily discontinue heparin drip , on coreg continue, needs nursing home AC # CAD: cont ASA and statin # Hx of chronic Systolic and diastolic heart failure . Euvolemic . echo reviewed, cont to monitor . cont diovan DVT PX: Visit type - Emergency Visit Emergency Visit: Yes ED Registration Date: 12/03/16 Care time: The patient presented to the Emergency Department on the above date and was hospitalized for further evaluation of their emergent condition. - New Patient This patient is new to me today: No - Critical Care Critical Care patient: No
[2016-12-10] MEDS ORDERED: WARFARIN NA 7.5 MG TABLET (FP) PO ONE (18:00)
[2016-12-10] MEDS ORDERED: HYDROmorphone HCL CARPU-JECT 1 MG/1 ML DISP.SYRIN IVPB ONE (21:00)
[2016-12-10] MEDS: ATORVASTATIN CA 40 MG TABLET (FP) PO SCH (21:19)
[2016-12-11] MEDS ORDERED: HYDROmorphone HCL CARPU-JECT 1 MG/1 ML DISP.SYRIN IVPB ONE (04:00)
[2016-12-11 08:00] LABS: INR 1.42 (0.82-1.09); PROTHROMBIN TIME (PATIENT) 15.7 SEC (9.98-11.88)
[2016-12-11] MEDS: ASPIRIN COATED 81 MG TABLET.EC PO SCH (09:12)
[2016-12-11] MEDS: CARVEDILOL 6.25 MG TABLET (FP) PO SCH ×2 (09:12→21:48)
[2016-12-11] MEDS: VALSARTAN 80 MG TABLET (UD) PO SCH (09:12)
[2016-12-11] MEDS: ENOXAPARIN NA (PORCINE) 100 MG/1 ML DISP.SYRIN SQ SCH ×2 (09:12→21:47)
--- NOTE | 2016-12-11 10:19 | PN ---
Progress Note, Physician Chief Complaint: Hemodynamically stable Not in distress History of Present Illness: Patient was seen and examined. Awake and alert. Chart was reviewed Denies chest pain, SOB or palpitations - Current Medication List Current Medications: Active Medications Aspirin (Ecotrin -) 81 mg PO DAILY [facility] Last Admin: 12/11/16 09:12 Dose: 81 mg Atorvastatin Calcium (Lipitor -) 40 mg PO HS [facility] Last Admin: 12/10/16 21:19 Dose: 40 mg Carvedilol (Coreg -) 6.25 mg PO BID [facility] Last Admin: 12/11/16 09:12 Dose: 6.25 mg Enoxaparin Sodium (Lovenox -) 100 mg SQ BID@0900,2100 [facility] Last Admin: 12/11/16 09:12 Dose: 100 mg Valsartan (Diovan -) 80 mg PO DAILY [facility] Last Admin: 12/11/16 09:12 Dose: 80 mg - Objective Vital Signs: Vital Signs Temperature 97.8 F 12/11/16 09:20 Pulse Rate 70 12/11/16 09:20 Respiratory Rate 16 12/11/16 09:20 Blood Pressure 100/69 12/11/16 09:20 O2 Sat by Pulse Oximetry (%) 98 12/10/16 20:40 Cardiovascular: Yes: Pulse Irregular, S1, S2 Respiratory: Yes: CTA Bilaterally Gastrointestinal: Yes: Normal Bowel Sounds, Soft. No: Tenderness Edema: Yes Edema: RLE: Trace Additional Findings/Remarks: Review of Systems Constitutional: denies: Chills Cardiovascular: As noted above Respiratory: denies: Cough or Sputum Production Gastrointestinal: denies: Nausea, Vomiting, Diarrhea, Constipation or Abdominal Pain Musculoskeletal: reports: Bilateral Leg Discomfort - improved Neurological: denies: Dizziness or Headache Labs: INR, PTT INR 1.42 (0.82-1.09) H 12/11/16 06:30 Problem List - Problems (1) Coronary artery disease Code(s): I25.10 - ATHSCL HEART DISEASE OF [place] CORONARY ARTERY W/O ANG PCTRS Qualifiers: Coronary Disease-Associated Artery/Lesion type: [place] artery [place] vs. transplanted heart: [place] heart Associated angina: without angina Qualified Code(s): I25.10 - Atherosclerotic heart disease of [place] coronary artery without angina pectoris (2) Hypertrophic cardiomyopathy Code(s): I42.2 - OTHER HYPERTROPHIC CARDIOMYOPATHY (3) Vascular occlusion Code(s): I99.8 - OTHER DISORDER OF CIRCULATORY SYSTEM (4) Atrial flutter Code(s): I48.92 - UNSPECIFIED ATRIAL FLUTTER Qualifiers: Atrial flutter type: atypical Qualified Code(s): I48.4 - Atypical atrial flutter (5) HTN (hypertension) Code(s): I10 - ESSENTIAL (PRIMARY) HYPERTENSION Qualifiers: Hypertension type: essential hypertension Qualified Code(s): I10 - Essential (primary) hypertension (6) Left ventricular systolic dysfunction Code(s): I51.9 - HEART DISEASE, UNSPECIFIED Assessment/Plan 1. Bilateral leg discomfort with evidence of vascular occlusion (occlusion of SFA bilaterally) likely embolic disease related to persistent AF with [id number] score of 6 on no therapy at home, poor compliance s/p angiogram + bilateral thrombectomy on Xarelto 2. CAD with evidence of demand ischemic injury, non obstructive CAD on coronary angiogrpahy angina pectoris 3. LV systolic/diastolic dysfunction, cannot rule out infiltrative cardiomyopathy, chronic class I-II NYHA classification, compensated/euvolemic. 4. Paroxysmal atypical atrial flutter/atrial tachycardia post cardioversion [id number] score of 6, recurrent arrhythmia (AF) 5. HTN 6. History of CKD 7. Poor compliance with medical therapy administration and medical F/U 8. Tobacco abuse PLAN: 1. Currently on Xarelto (as he wants once a day regimen for compliance) considering the above noted presentation and [id number] score 6. 2. Vascular surgery follow up - Conitnue post op care 3. Continue Carvedilol and Diovan and titrate as tolerated 4. Continue ASA 5. Continue Lipitor 6. Counselled smoking cessation and abstinence 7. Further cardiac evaluation can be done as outpatient - consider synchronized cardioversion at some point, but can be done as outpatient Further plans are to follow Eliel Sam MD
[2016-12-11] MEDS: WARFARIN NA 10 MG TABLET (FP) PO SCH (17:06)
--- NOTE | 2016-12-11 19:00 | PN ---
Progress Note (short form) - Note Progress Note: Comfortable with no acute distress. Temperature 100 F H 12/11/16 17:43 Pulse Rate 90 12/11/16 17:43 Respiratory Rate 20 12/11/16 17:43 Blood Pressure 164/110 12/11/16 17:43 O2 Sat by Pulse Oximetry (%) 98 12/11/16 09:00 GENERAL: The patient is awake, alert, and fully oriented, in no acute distress. HEAD: Normal with no signs of trauma. EYES: PERRL, extraocular movements intact, sclera anicteric, conjunctiva clear. ENT: Ears normal, oropharynx clear without exudates, moist mucous membranes. NECK: Trachea midline, full range of motion, supple. LUNGS: Breath sounds equal, clear to auscultation bilaterally, no wheezes, no crackles, no accessory muscle use. HEART: Regular rate and rhythm, S1, S2 positive, [place] 1/6, rub or gallop. ABDOMEN: Soft, nontender, nondistended, normoactive bowel sounds, no guarding, no rebound, no hepatosplenomegaly, no masses. EXTREMITIES: b/l approximately 8cm groin incisions closed with pancho are clean , dry, and intact without erythema or other signs of infection. both legs are warm to touch with intact motor and sensory function. pulses are POsitive NEUROLOGICAL: Cranial nerves II through XII grossly intact. Normal speech, gait not observed. PSYCH: Normal mood, normal affect. SKIN: Warm, dry, normal turgor, no rashes or lesions noted CBCD WBC 10.6 K/mm3 (4.0-10.0) H 12/08/16 05:20 RBC 3.78 M/mm3 (4.00-5.60) L 12/08/16 05:20 Hgb 11.7 GM/dL (11.7-16.9) 12/08/16 05:20 Hct 35.4 % (35.4-49) 12/08/16 05:20 MCV 93.7 fl (80-96) 12/08/16 05:20 MCHC 33.1 g/dl (32.0-35.9) 12/08/16 05:20 RDW 14.8 % (11.9-15.9) 12/08/16 05:20 Plt Count 307 K/MM3 (134-434) 12/08/16 05:20 MPV 9.6 fl (7.5-11.1) 12/08/16 05:20 CMP Sodium 139 mmol/L (136-145) 12/08/16 05:20 Potassium 4.8 mmol/L (3.5-5.1) 12/08/16 05:20 Chloride 105 mmol/L (98-107) 12/08/16 05:20 Carbon Dioxide 25 mmol/L (21-32) 12/08/16 05:20 Anion Gap 9 (8-16) 12/08/16 05:20 BUN 22 mg/dL (7-18) H D 12/08/16 05:20 Creatinine 1.0 mg/dL (0.7-1.3) 12/08/16 05:20 Creat Clearance w eGFR > 60 (>60) 12/04/16 06:30 Random Glucose 99 mg/dL (74-106) 12/08/16 05:20 Calcium 7.7 mg/dL (8.5-10.1) L 12/08/16 05:20 Total Bilirubin 0.5 mg/dL (0.2-1.0) D 12/04/16 06:30 AST 15 U/L (15-37) 12/04/16 06:30 ALT 17 U/L (12-78) 12/04/16 06:30 Alkaline Phosphatase 65 U/L (45-117) 12/04/16 06:30 Total Protein 6.1 g/dl (6.4-8.2) L 12/04/16 06:30 Albumin 2.4 g/dl (3.4-5.0) L 12/04/16 06:30 CARDIAC ENZYMES Creatine Kinase 282 IU/L (39-308) 12/03/16 18:45 Troponin I 0.50 ng/ml (0.00-0.05) H 12/05/16 05:35 Current Medications Generic Name Dose Route Start Last Admin Trade Name [place] PRN Reason Stop Dose Admin Aspirin 81 mg 12/08/16 10:00 12/11/16 09:12 Ecotrin - PO 81 mg DAILY [facility] Administration Atorvastatin Calcium 40 mg 12/07/16 22:00 12/10/16 21:19 Lipitor - PO 40 mg HS [facility] Administration Carvedilol 6.25 mg 12/09/16 10:00 12/11/16 09:12 Coreg - PO 6.25 mg BID [facility] Administration Enoxaparin Sodium 100 mg 12/10/16 09:00 12/11/16 09:12 Lovenox - SQ 100 mg BID@0900,2100 [facility] Administration Tramadol HCl 25 mg 12/11/16 14:41 Ultram - PO Q6H PRN PAIN Valsartan 80 mg 12/08/16 10:00 12/11/16 09:12 Diovan - PO 80 mg DAILY [facility] Administration Warfarin Sodium 10 mg 12/11/16 18:00 12/11/16 17:06 Coumadin - PO 10 mg DAILY@1800 [facility] Administration INR 1.44-->1.42 today CTA report with possible thrombus in R common femoral artery and decreased flow on both sides. ASSESSMENT AND PLAN: This is a 76 year old man with a history of hypertrophic cardiomyopathy, non- obstructive CAD, chronic systolic/diastolic HF, HTN, PAF who presented to the ER with right leg pain # Acute arterial occlusion of Right lower extremity s/p b/l thrombectomy (12/06) by Vascular DrGloria Rico , will discontinue Heparin drip and start the patient on coumadin with bridgening Lovenox ,patient needs half-way AC. As per Vascular to send the patient home on coumadin # A fib : on coumadin 10mg tonight on Lovenox as well , PT/INR daily discontinue heparin drip , on coreg continue, needs half-way AC # CAD: cont ASA and statin # Hx of chronic Systolic and diastolic heart failure . Euvolemic . echo reviewed, cont to monitor . cont diovan DVT PX: Coumadin PT coumadin 10mg tonight daily PT/INR Visit type - Emergency Visit Emergency Visit: Yes ED Registration Date: 12/03/16 Care time: The patient presented to the Emergency Department on the above date and was hospitalized for further evaluation of their emergent condition. - New Patient This patient is new to me today: No - Critical Care Critical Care patient: No
[2016-12-11] MEDS: ATORVASTATIN CA 40 MG TABLET (FP) PO SCH (21:48)
[2016-12-11] MEDS: traMADol HCL 50 MG TABLET PO PRN (21:48)
[2016-12-11] MEDS ORDERED: PT OWN MED DRAWER 7, Y5N ONE (21:57)
[2016-12-12] MEDS: traMADol HCL 50 MG TABLET PO PRN ×2 (04:07→21:56)
[2016-12-12] MEDS: ENOXAPARIN NA (PORCINE) 100 MG/1 ML DISP.SYRIN SQ SCH ×2 (09:27→21:56)
[2016-12-12] MEDS: ASPIRIN COATED 81 MG TABLET.EC PO SCH (09:28)
[2016-12-12] MEDS: VALSARTAN 80 MG TABLET (UD) PO SCH (09:32)
[2016-12-12] MEDS: CARVEDILOL 6.25 MG TABLET (FP) PO SCH ×2 (09:32→21:56)
[2016-12-12 09:42] LABS: INR 1.86 (0.82-1.09); PROTHROMBIN TIME (PATIENT) 20.7 SEC (9.98-11.88)
--- NOTE | 2016-12-12 11:35 | PN ---
Progress Note, Physician Chief Complaint: Hemodynamically stable Not in distress History of Present Illness: Patient was seen and examined. Awake and alert. Chart was reviewed Denies chest pain, SOB or palpitations - Current Medication List Current Medications: Active Medications Aspirin (Ecotrin -) 81 mg PO DAILY [facility] Last Admin: 12/12/16 09:28 Dose: 81 mg Atorvastatin Calcium (Lipitor -) 40 mg PO HS [facility] Last Admin: 12/11/16 21:48 Dose: 40 mg Carvedilol (Coreg -) 6.25 mg PO BID [facility] Last Admin: 12/12/16 09:32 Dose: Not Given Enoxaparin Sodium (Lovenox -) 100 mg SQ BID@0900,2100 [facility] Last Admin: 12/12/16 09:27 Dose: 100 mg Tramadol HCl (Ultram -) 25 mg PO Q6H PRN PRN Reason: PAIN Last Admin: 12/12/16 04:07 Dose: 25 mg Valsartan (Diovan -) 80 mg PO DAILY [facility] Last Admin: 12/12/16 09:32 Dose: Not Given Warfarin Sodium (Coumadin -) 10 mg PO DAILY@1800 [facility] Last Admin: 12/11/16 17:06 Dose: 10 mg - Objective Vital Signs: Vital Signs Temperature 98.5 F 12/12/16 05:00 Pulse Rate 67 12/12/16 10:05 Respiratory Rate 16 12/12/16 05:00 Blood Pressure 105/56 12/12/16 05:00 O2 Sat by Pulse Oximetry (%) 95 12/12/16 10:05 Neck: Yes: Supple Cardiovascular: Yes: Pulse Irregular, S1, S2 Respiratory: Yes: CTA Bilaterally Gastrointestinal: Yes: Normal Bowel Sounds, Soft. No: Tenderness Edema: No Additional Findings/Remarks: Review of Systems Constitutional: denies: Chills Cardiovascular: As noted above Respiratory: denies: Cough or Sputum Production Gastrointestinal: denies: Nausea, Vomiting, Diarrhea, Constipation or Abdominal Pain Musculoskeletal: reports: Bilateral Leg Discomfort - improved Neurological: denies: Dizziness or Headache Labs: INR, PTT INR 1.86 (0.82-1.09) H D 12/12/16 06:00 Problem List - Problems (1) Coronary artery disease Code(s): I25.10 - ATHSCL HEART DISEASE OF [place] CORONARY ARTERY W/O ANG PCTRS Qualifiers: Coronary Disease-Associated Artery/Lesion type: [place] artery [place] vs. transplanted heart: [place] heart Associated angina: without angina Qualified Code(s): I25.10 - Atherosclerotic heart disease of [place] coronary artery without angina pectoris (2) Hypertrophic cardiomyopathy Code(s): I42.2 - OTHER HYPERTROPHIC CARDIOMYOPATHY (3) Vascular occlusion Code(s): I99.8 - OTHER DISORDER OF CIRCULATORY SYSTEM (4) Atrial flutter Code(s): I48.92 - UNSPECIFIED ATRIAL FLUTTER Qualifiers: Atrial flutter type: atypical Qualified Code(s): I48.4 - Atypical atrial flutter (5) HTN (hypertension) Code(s): I10 - ESSENTIAL (PRIMARY) HYPERTENSION Qualifiers: Hypertension type: essential hypertension Qualified Code(s): I10 - Essential (primary) hypertension (6) Left ventricular systolic dysfunction Code(s): I51.9 - HEART DISEASE, UNSPECIFIED Assessment/Plan 1. Bilateral leg discomfort with evidence of vascular occlusion (occlusion of SFA bilaterally) likely embolic disease related to persistent AF with [id number] score of 6 on no therapy at home, poor compliance s/p angiogram + bilateral thrombectomy on Xarelto 2. CAD with evidence of demand ischemic injury, non obstructive CAD on coronary angiogrpahy angina pectoris 3. LV systolic/diastolic dysfunction, cannot rule out infiltrative cardiomyopathy, chronic class I-II NYHA classification, compensated/euvolemic. 4. Paroxysmal atypical atrial flutter/atrial tachycardia post cardioversion [id number] score of 6, recurrent arrhythmia (AF) 5. HTN 6. History of CKD 7. Poor compliance with medical therapy administration and medical F/U 8. Tobacco abuse PLAN: 1. Currently on Xarelto (as he wants once a day regimen for compliance) considering the above noted presentation and [id number] score 6. 2. Post op care 3. Continue Carvedilol and Diovan and titrate as tolerated 4. Continue ASA 5. Continue Lipitor 6. Counselled smoking cessation and abstinence 7. Further cardiac evaluation can be done as outpatient - consider synchronized cardioversion at some point, but can be done as outpatient Further plans are to follow Eliel Sam MD
[2016-12-12] MEDS: WARFARIN NA 10 MG TABLET (FP) PO SCH (17:12)
--- NOTE | 2016-12-12 17:18 | PN ---
Progress Note (short form) - Note Progress Note: Comfortable with no acute distress, no shortness of breath Temperature 98.7 F 12/12/16 14:00 Pulse Rate 81 12/12/16 14:00 Respiratory Rate 18 12/12/16 14:00 Blood Pressure 106/68 12/12/16 14:00 O2 Sat by Pulse Oximetry (%) 95 12/12/16 10:05 GENERAL: The patient is awake, alert, and fully oriented, in no acute distress. HEAD: Normal with no signs of trauma. EYES: PERRL, extraocular movements intact, sclera anicteric, conjunctiva clear. ENT: Ears normal, oropharynx clear without exudates, moist mucous membranes. NECK: Trachea midline, full range of motion, supple. LUNGS: Breath sounds equal, clear to auscultation bilaterally, no wheezes, no crackles, no accessory muscle use. HEART: Regular rate and rhythm, S1, S2 without murmur, rub or gallop. ABDOMEN: Soft, nontender, nondistended, normoactive bowel sounds, no guarding, no rebound, no hepatosplenomegaly, no masses. EXTREMITIES: b/l approximately 8cm groin incisions closed with pancho are clean , dry, and intact without erythema or other signs of infection. both legs are warm to touch with intact motor and sensory function. pulses are POsitive NEUROLOGICAL: Cranial nerves II through XII grossly intact. Normal speech, gait not observed. PSYCH: Normal mood, normal affect. SKIN: Warm, dry, normal turgor, no rashes or lesions noted CBCD WBC 10.6 K/mm3 (4.0-10.0) H 12/08/16 05:20 RBC 3.78 M/mm3 (4.00-5.60) L 12/08/16 05:20 Hgb 11.7 GM/dL (11.7-16.9) 12/08/16 05:20 Hct 35.4 % (35.4-49) 12/08/16 05:20 MCV 93.7 fl (80-96) 12/08/16 05:20 MCHC 33.1 g/dl (32.0-35.9) 12/08/16 05:20 RDW 14.8 % (11.9-15.9) 12/08/16 05:20 Plt Count 307 K/MM3 (134-434) 12/08/16 05:20 MPV 9.6 fl (7.5-11.1) 12/08/16 05:20 CMP Sodium 139 mmol/L (136-145) 12/08/16 05:20 Potassium 4.8 mmol/L (3.5-5.1) 12/08/16 05:20 Chloride 105 mmol/L (98-107) 12/08/16 05:20 Carbon Dioxide 25 mmol/L (21-32) 12/08/16 05:20 Anion Gap 9 (8-16) 12/08/16 05:20 BUN 22 mg/dL (7-18) H D 12/08/16 05:20 Creatinine 1.0 mg/dL (0.7-1.3) 12/08/16 05:20 Creat Clearance w eGFR > 60 (>60) 12/04/16 06:30 Random Glucose 99 mg/dL (74-106) 12/08/16 05:20 Calcium 7.7 mg/dL (8.5-10.1) L 12/08/16 05:20 Total Bilirubin 0.5 mg/dL (0.2-1.0) D 12/04/16 06:30 AST 15 U/L (15-37) 12/04/16 06:30 ALT 17 U/L (12-78) 12/04/16 06:30 Alkaline Phosphatase 65 U/L (45-117) 12/04/16 06:30 Total Protein 6.1 g/dl (6.4-8.2) L 12/04/16 06:30 Albumin 2.4 g/dl (3.4-5.0) L 12/04/16 06:30 CARDIAC ENZYMES Creatine Kinase 282 IU/L (39-308) 12/03/16 18:45 Troponin I 0.50 ng/ml (0.00-0.05) H 12/05/16 05:35 Current Medications Generic Name Dose Route Start Last Admin Trade Name Freq PRN Reason Stop Dose Admin Aspirin 81 mg 12/08/16 10:00 12/12/16 09:28 Ecotrin - PO 81 mg DAILY CHELLY Administration Atorvastatin Calcium 40 mg 12/07/16 22:00 12/11/16 21:48 Lipitor - PO 40 mg HS CHELLY Administration Carvedilol 6.25 mg 12/09/16 10:00 12/12/16 09:32 Coreg - PO Not Given BID [facility] Enoxaparin Sodium 100 mg 12/10/16 09:00 12/12/16 09:27 Lovenox - SQ 100 mg BID@0900,2100 CHELLY Administration Tramadol HCl 25 mg 12/11/16 14:41 12/12/16 04:07 Ultram - PO 25 mg Q6H PRN Administration PAIN Valsartan 80 mg 12/08/16 10:00 12/12/16 09:32 Diovan - PO Not Given DAILY [facility] Warfarin Sodium 10 mg 12/11/16 18:00 12/12/16 17:12 Coumadin - PO 10 mg DAILY@1800 CHELLY Administration INR 1.44-->1.42 -->1.86 today CTA report with possible thrombus in R common femoral artery and decreased flow on both sides. ASSESSMENT AND PLAN: This is a 76 year old man with a history of hypertrophic cardiomyopathy, non- obstructive CAD, chronic systolic/diastolic HF, HTN, PAF who presented to the ER with right leg pain # Acute arterial occlusion of Right lower extremity s/p b/l thrombectomy (12/06) by Vascular Dr.Nirav Rico ,On lovenox sq and coumadin 10mg daily to bridge Lovenox with coumadin ,patient needs chcf AC. As per Vascular to send the patient on coumadin # A fib : on coumadin 10mg tonight, PT/INR daily off heparin drip , on coreg continue, needs chcf AC # CAD: cont ASA and statin # Hx of chronic Systolic and diastolic heart failure . Euvolemic . echo reviewed, cont to monitor . cont diovan DVT PX: Coumadin Visit type - Emergency Visit Emergency Visit: Yes ED Registration Date: 12/03/16 Care time: The patient presented to the Emergency Department on the above date and was hospitalized for further evaluation of their emergent condition. - New Patient This patient is new to me today: No - Critical Care Critical Care patient: No
[2016-12-12] MEDS: ATORVASTATIN CA 40 MG TABLET (FP) PO SCH (21:56)
[2016-12-13 07:02] LABS: MCH 30.9 pg (25.7-33.7); MCHC 33.6 g/dl (32.0-35.9); MEAN CELL VOLUME 91.9 fl (80-96); MEAN PLT VOLUME 8.4 fl (7.5-11.1); PLATELET COUNT 353 K/MM3 (134-434); RDW 14.8 % (11.9-15.9); WHITE BLOOD COUNT 8.5 K/mm3 (4.0-10.0)
--- NOTE | 2016-12-13 07:23 | PN ---
Progress Note (short form) - Note Progress Note: Chief Complaint: Events noted, notes reviewed, denies any leg discomfort, denies any chest pain or dyspnea, atypical atrial flutter/atrial fibrillation on A/C History of Present Illness: Seen and examined on telemetry. Events noted, notes reviewed, denies any leg discomfort, denies any chest pain or dyspnea, atypical atrial flutter/atrial fibrillation on A/C - Current Medication List Current Medications Aspirin (Ecotrin -) 81 mg PO DAILY [facility] Last Admin: 12/12/16 09:28 Dose: 81 mg Atorvastatin Calcium (Lipitor -) 40 mg PO HS [facility] Last Admin: 12/12/16 21:56 Dose: 40 mg Carvedilol (Coreg -) 6.25 mg PO BID [facility] Last Admin: 12/12/16 21:56 Dose: 6.25 mg Enoxaparin Sodium (Lovenox -) 100 mg SQ BID@0900,2100 [facility] Last Admin: 12/12/16 21:56 Dose: 100 mg Tramadol HCl (Ultram -) 25 mg PO Q6H PRN PRN Reason: PAIN Last Admin: 12/12/16 21:56 Dose: 25 mg Valsartan (Diovan -) 80 mg PO DAILY [facility] Last Admin: 12/12/16 09:32 Dose: Not Given Warfarin Sodium (Coumadin -) 10 mg PO DAILY@1800 [facility] Last Admin: 12/12/16 17:12 Dose: 10 mg Review of Systems Constitutional: denies: Chills Cardiovascular: As noted above Respiratory: denies: Cough or Sputum Production Gastrointestinal: denies: Nausea, Vomiting, Diarrhea, Constipation or Abdominal Pain Musculoskeletal: denies: Leg Discomfort Neurological: denies: Dizziness or Headache - Objective Vital Signs: Last Vital Signs Temp Pulse Resp BP Pulse Ox 98.1 F 83 16 110/63 95 12/13/16 06:00 12/13/16 06:00 12/13/16 06:00 12/13/16 06:00 12/12/16 21:00 Intake & Output 12/10/16 12/11/16 12/12/16 12/13/16 23:59 23:59 23:59 23:59 Intake Total 860 320 850 150 Output Total 2200 2750 2450 150 Balance -1340 -2430 -1600 0 Weight 223 lb 6.4 oz Neck: Supple Negative JVD No Bruit Cardiovascular: S1 S2 Irregularly Irregular Grade 2/6 Systolic Murmur Chest: Clear to A&P Bilaterally Gastrointestinal: Soft Benign Normal Bowel Sounds Ext: No Edema 1+ Bilateral femoral Pulses Labs: Blood test from this AM pending Assessment/Plan ASSESSMENT: 1. Bilateral leg discomfort with evidence of vascular occlusion, bilateral SFA occlusion post thrombectomy, most likely embolic disease related to PAF with [id number] score of 6 on Lovenox/Coumadin, history of poor compliance with therapy administration and medical F/U 2. CAD with evidence of demand ischemic injury, non obstructive CAD on R&c coronary angiogrpahy angina pectoris 3. LV systolic/diastolic dysfunction related to apical hypertrophic cardio- myopathy, chronic class I-II NYHA classification, compensated/euvolemic 4. Paroxysmal atypical atrial flutter/atrial tachycardia post cardioversion [id number] score of 6, recurrent arrhythmia, will require long term care administrator A/C 5. HTN 6. History of CKD 7. Poor compliance with medical therapy administration and medical F/U 8. Tobacco abuse PLAN: 1. Continue Lovenox/Coumadin and patient will require long term care administrator A/C (NOAC's deferred related to cost issue) considering the above noted presentation and [id number] score 6 2. Continue Carvedilol 3. Continue Diovan 4. Continue ASA in conjunction with Coumadin 5. Continue Lipitor 6. Counselled smoking cessation and abstinence 7. Plan to D/C home once INR is therapeutic, between 2-3 and advised F/U in the office, will consider outpatient DCCV for the above noted atrial arrhythmia after 3-4 weeks of adequate A/C Discussed in detail with the patient Mabel Rolle MD
[2016-12-13 07:28] LABS: ALBUMIN 2.3 g/dl (3.4-5.0); ANION GAP 6 (8-16); CALCIUM 8.3 mg/dL (8.5-10.1); CO2 30 mmol/L (21-32); GLUCOSE,RANDOM 94 mg/dL (74-106); PHOSPHOROUS 3.8 mg/dL (2.5-4.9); SGOT/AST 13 U/L (15-37)
[2016-12-13 07:30] LABS: ALK PHOS 65 U/L (45-117); BILIRUBIN,TOTAL 0.3 mg/dL (0.2-1.0); CREATININE 0.9 mg/dL (0.7-1.3); SGPT/ALT 20 U/L (12-78); TOT PROT 6.1 g/dl (6.4-8.2)
[2016-12-13 08:47] LABS: INR 2.71 (0.82-1.09); PROTHROMBIN TIME (PATIENT) 30.4 SEC (9.98-11.88)
[2016-12-13 08:48] VITALS: TEMP 98.7
[2016-12-13] MEDS: ENOXAPARIN NA (PORCINE) 100 MG/1 ML DISP.SYRIN SQ SCH (09:13)
[2016-12-13] MEDS: VALSARTAN 80 MG TABLET (UD) PO SCH (09:13)
[2016-12-13] MEDS: CARVEDILOL 6.25 MG TABLET (FP) PO SCH (09:13)
[2016-12-13] MEDS: ASPIRIN COATED 81 MG TABLET.EC PO SCH (09:13)
[2016-12-13] MEDS ORDERED: WARFARIN NA 5 MG TABLET (UD) PO SCH (09:19)
--- NOTE | 2016-12-13 14:00 | DS ---
Physical Exam: SUBJECTIVE: Patient seen and examined. No acute events overnight. This am, pt reports no complaints. The swelling in his feet has decreased after elevating his legs while lying down. He reports that he has been walking down the halls unassisted without any pain or problems. He denies SOB, chest pain, n/v/d/c, or dysuria. OBJECTIVE: Vital Signs Period Temp Pulse Resp BP Sys/Ariza Pulse Ox Last 24 Hr 98.1 F-98.7 F 71-92 16-18 106-118/62-73 95-98 PHYSICAL EXAM GENERAL: The patient is awake, alert, and fully oriented, in no acute distress. HEAD: Normal with no signs of trauma. EYES: PERRL, extraocular movements intact, sclera anicteric, conjunctiva clear. ENT: Ears normal, nares patent, oropharynx clear without exudates, moist mucous membranes. NECK: Trachea midline, full range of motion, supple. LUNGS: Breath sounds equal, clear to auscultation bilaterally, no wheezes, no crackles, no accessory muscle use. HEART: irregularly irregular without murmur, rub or gallop. ABDOMEN: Soft, nontender, nondistended, normoactive bowel sounds, no guarding, no rebound, no hepatosplenomegaly, no masses. EXTREMITIES: 1+ pulses, warm, well-perfused, 1+ edema in b/l ankles. NEUROLOGICAL: Cranial nerves II through XII grossly intact. Normal speech, gait not observed. PSYCH: Normal mood, normal affect. SKIN: Warm, dry, normal turgor, no rashes or lesions noted. LABS Laboratory Results - last 24 hr 12/13/16 12/13/16 12/13/16 06:30 06:30 06:30 WBC 8.5 RBC 3.84 L Hgb 11.9 Hct 35.3 L MCV 91.9 MCH 30.9 MCHC 33.6 RDW 14.8 Plt Count 353 MPV 8.4 D INR PTT (Actin FS) 38.9 H Sodium 141 Potassium 4.8 Chloride 105 Carbon Dioxide 30 Anion Gap 6 L BUN 16 D Creatinine 0.9 Creat Clearance w eGFR > 60 Random Glucose 94 Calcium 8.3 L Phosphorus 3.8 Magnesium 2.0 Total Bilirubin 0.3 D AST 13 L ALT 20 Alkaline Phosphatase 65 Total Protein 6.1 L Albumin 2.3 L 12/13/16 08:38 WBC RBC Hgb Hct MCV MCH MCHC RDW Plt Count MPV INR 2.71 H D PTT (Actin FS) Sodium Potassium Chloride Carbon Dioxide Anion Gap BUN Creatinine Creat Clearance w eGFR Random Glucose Calcium Phosphorus Magnesium Total Bilirubin AST ALT Alkaline Phosphatase Total Protein Albumin HOSPITAL COURSE: 76M w/ hx of p-afib, HTN, CAD, CHF, and hypertrophic cardiomyopathy who presented with right leg pain, was found to have b/l significant PAD/ thromboembolic disease, and underwent a b/l thrombectomy with marked improvement. Pt was to be transitioned to a NOAC, but his insurance did not cover it. Instead, pt was bridged to coumadin with lovenox. Today, pt's INR is therapeutic at 2.71, he has no complaints, his vitals are stable, he is able to ambulate without leg pain, and he is stable for discharge. Pt is being sent home on coumadin 5mg with an appointment in the [facility] coumadin clinic on 12/16/2016 and referrals to a PCP and manager of creative services. Date of Admission:12/03/16 Date of Discharge: 12/13/16 <Jono Huynh - Last Filed: 12/13/16 13:49> Physical Exam: SUBJECTIVE: Patient seen and examined Correction his appointment is at [facility] on 12/15/2016. [facility] Minutes to complete discharge: 50 <Danya Knowles - Last Filed: 12/15/16 08:44> Discharge Summary Reason For Visit: VASCULAR OCCLUSION Current Active Problems Chronic thromboembolic disease (Acute) Nicotine dependence (Acute) Vascular occlusion (Acute) Coronary artery disease (Chronic) HTN (hypertension) (Chronic) Hypertrophic cardiomyopathy (Chronic) Paroxysmal atrial fibrillation (Chronic) Peripheral arterial disease (Chronic) - Home Medications Comprehensive Discharge Medication List: Ambulatory Orders Aspirin Coated [Ecotrin -] 81 mg PO DAILY #30 tab 12/13/16 Atorvastatin Ca [Lipitor] 40 mg PO HS #30 tablet 12/13/16 Cane 1 each MC ONCE #1 each 12/13/16 Carvedilol [Coreg -] 6.25 mg PO BID #60 tablet 12/13/16 Valsartan [Diovan] 80 mg PO DAILY #30 tablet 12/13/16 Warfarin Na [Coumadin -] 5 mg PO DAILY@1800 #30 tablet 12/13/16 <Jono Huynh - Last Filed: 12/13/16 13:49> - Home Medications Comprehensive Discharge Medication List: Ambulatory Orders Aspirin Coated [Ecotrin -] 81 mg PO DAILY #30 tab 12/13/16 Atorvastatin Ca [Lipitor] 40 mg PO HS #30 tablet 12/13/16 Cane 1 each MC ONCE #1 each 12/13/16 Carvedilol [Coreg -] 6.25 mg PO BID #60 tablet 12/13/16 Valsartan [Diovan] 80 mg PO DAILY #30 tablet 12/13/16 Warfarin Na [Coumadin -] 5 mg PO DAILY@1800 #30 tablet 12/13/16 <Danya Knowles - Last Filed: 12/15/16 08:44> Condition: Improved - Instructions Diet, Activity, Other Instructions: You were found to have arterial clots in both legs, and you received a procedure called a thrombectomy to remove those clots. Because of your peripheral arterial disease and atrial fibrillation, you need half-way anticoagulation, and you were started on coumadin. You need to follow up with the coumadin clinic at [facility] to check your INR which tells us that your coumadin dosage is therapeutic. Your appointment is on 12/16 at 9am, and it is located at [address] [place] [address], 4th floor, room 460, [place] [address] ([phone]) Follow up with your new PCP, Dr. Brown on 12/15/2016 at 12pm at [facility], [address] [place] [address] ([phone]). Please see Dr. Oliver Mcginnis, a manager of creative services, within 2 weeks. Referrals: Oliver Mcginnis MD [Staff Physician] - Kesha Aguila MD [Staff Physician] - Disposition: HOME Problem List - Problems (1) Coronary artery disease Code(s): I25.10 - ATHSCL HEART DISEASE OF COUNCIL CORONARY ARTERY W/O ANG PCTRS Qualifiers: Coronary Disease-Associated Artery/Lesion type: [place] artery [place] vs. transplanted heart: [place] heart Associated angina: without angina Qualified Code(s): I25.10 - Atherosclerotic heart disease of [place] coronary artery without angina pectoris (2) Heart failure Code(s): I50.9 - HEART FAILURE, UNSPECIFIED (3) Hypertrophic cardiomyopathy Code(s): I42.2 - OTHER HYPERTROPHIC CARDIOMYOPATHY (4) Nicotine dependence Code(s): F17.200 - NICOTINE DEPENDENCE, UNSPECIFIED, UNCOMPLICATED <Jono Huynh - Last Filed: 12/13/16 13:49> This patient is new to me today: No Emergency Visit: Yes ED Registration Date: 12/03/16 Care time: The patient presented to the Emergency Department on the above date and was hospitalized for further evaluation of their emergent condition. Critical Care patient: No - Discharge Referral Referred to [facility] Med P.C.: No Physician Referral: Camden Kramer MD ([facility]) <Jono Huynh - Last Filed: 12/13/16 13:49>
[2016-12-13 14:35] VITALS: BP 117/60; PULSE 71
--- NOTE | 2016-12-13 17:05 | PN ---
Teaching Attending Note Name of Resident: Jono Huynh ATTENDING PHYSICIAN STATEMENT I saw and evaluated the patient. I reviewed the resident's note and discussed the case with the resident. I agree with the resident's findings and plan as documented. SUBJECTIVE: OBJECTIVE: Vital Signs Temperature 98.7 F 12/13/16 14:34 Pulse Rate 71 12/13/16 14:34 Respiratory Rate 18 12/13/16 14:34 Blood Pressure 117/60 12/13/16 14:34 O2 Sat by Pulse Oximetry (%) 95 12/13/16 10:37 CBCD WBC 8.5 K/mm3 (4.0-10.0) 12/13/16 06:30 RBC 3.84 M/mm3 (4.00-5.60) L 12/13/16 06:30 Hgb 11.9 GM/dL (11.7-16.9) 12/13/16 06:30 Hct 35.3 % (35.4-49) L 12/13/16 06:30 MCV 91.9 fl (80-96) 12/13/16 06:30 MCHC 33.6 g/dl (32.0-35.9) 12/13/16 06:30 RDW 14.8 % (11.9-15.9) 12/13/16 06:30 Plt Count 353 K/MM3 (134-434) 12/13/16 06:30 MPV 8.4 fl (7.5-11.1) D 12/13/16 06:30 CMP Sodium 141 mmol/L (136-145) 12/13/16 06:30 Potassium 4.8 mmol/L (3.5-5.1) 12/13/16 06:30 Chloride 105 mmol/L (98-107) 12/13/16 06:30 Carbon Dioxide 30 mmol/L (21-32) 12/13/16 06:30 Anion Gap 6 (8-16) L 12/13/16 06:30 BUN 16 mg/dL (7-18) D 12/13/16 06:30 Creatinine 0.9 mg/dL (0.7-1.3) 12/13/16 06:30 Creat Clearance w eGFR > 60 (>60) 12/13/16 06:30 Random Glucose 94 mg/dL (74-106) 12/13/16 06:30 Calcium 8.3 mg/dL (8.5-10.1) L 12/13/16 06:30 Total Bilirubin 0.3 mg/dL (0.2-1.0) D 12/13/16 06:30 AST 13 U/L (15-37) L 12/13/16 06:30 ALT 20 U/L (12-78) 12/13/16 06:30 Alkaline Phosphatase 65 U/L (45-117) 12/13/16 06:30 Total Protein 6.1 g/dl (6.4-8.2) L 12/13/16 06:30 Albumin 2.3 g/dl (3.4-5.0) L 12/13/16 06:30 CARDIAC ENZYMES Creatine Kinase 282 IU/L (39-308) 12/03/16 18:45 Troponin I 0.50 ng/ml (0.00-0.05) H 12/05/16 05:35 Home Medications Medication Instructions Recorded Aspirin Coated [Ecotrin -] 81 mg PO DAILY #30 tab 12/13/16 Atorvastatin Ca [Lipitor] 40 mg PO HS #30 tablet 12/13/16 Cane 1 each MC ONCE #1 each 12/13/16 Carvedilol [Coreg -] 6.25 mg PO BID #60 tablet 12/13/16 Valsartan [Diovan] 80 mg PO DAILY #30 tablet 12/13/16 Warfarin Na [Coumadin -] 5 mg PO DAILY@1800 #30 tablet 12/13/16 INR 1.44-->1.42 -->1.86 today CTA report with possible thrombus in R common femoral artery and decreased flow on both sides. 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 As per Vascular to send the patient on coumadin # A fib : on coumadin 10mg tonight, PT/INR daily off heparin drip , on coreg continue, needs fdc AC # CAD: cont ASA and statin # Hx of chronic Systolic and diastolic heart failure . Euvolemic . echo reviewed, cont to monitor . cont diovan DVT PX: Coumadin
--- NOTE | 2016-12-22 09:44 | OP ---
DATE OF OPERATION: 12/06/2016 PREOPERATIVE DIAGNOSIS: Bilateral lower extremity ischemia. POSTOPERATIVE DIAGNOSIS: Bilateral lower extremity ischemia. PROCEDURES: Open thrombectomy, bilateral iliac arteries, superficial femoral artery, popliteal artery, tibial artery, with bilateral lower extremity angiogram. FINDINGS: Embolus, bilateral lower extremities. Embolus sent to Pathology. SURGEON: Garrett Quiñonez DO ANESTHESIA: General. ESTIMATED BLOOD LOSS: 200 mL. INDICATIONS FOR PROCEDURE: The patient is a 76-year-old male who comes in with about a 7-to-8-day history of bilateral lower extremity pain upon walking. He claims that last Monday, he started developing some pain in his leg and that now the pain is worse, that he cannot walk anymore. He decided to come in to the hospital. Vascular Surgery was consulted. The patient was seen and examined. The patient had bilateral lower extremities that were warm, but cool below the knee. The patient had good motor and sensory function intact. It was decided that the patient would need a CTA. A CTA was performed showing that the patient has bilateral SFA disease with occlusions. The patient had an EKG performed showing that the patient does have active atrial fibrillation and the patient is not on any medications for the atrial fibrillation. It was highly suspected that the patient has bilateral lower extremity embolus from his heart and it was decided that he would need open thrombectomy. The patient understood that he would be getting two transverse incisions in each groin and we will try to get all of the clot out. The patient was consented for the procedure, understanding all risks, benefits and alternatives. DESCRIPTION OF PROCEDURE: He was then brought to the operating room. Once in the operating room, he was laid on the operating table in a supine manner and the bilateral lower extremities were prepped and draped in a sterile surgical manner and we prepped all the way up to the belly button. We then went ahead and started on the right side. Under ultrasound guidance, we then marked off our common femoral artery bifurcation and it was marked and a transverse incision was drawn above and below that efrain. We then went ahead and made a 7-cm incision using a 15 blade. The patient did receive general anesthesia. Once we made the incision, Bovie electrocautery was used and we were able to go through all the subcutaneous tissue and get down into the femoral sheath. The femoral sheath was then dissected and we dissected out our common femoral artery, SFA, profunda and vessel loops were placed around it. We then went ahead and administered 5000 units of IV heparin. We then went ahead and got proximal and distal control on our arteries. Using a number-11 blade, we made a transverse incision on the common femoral artery. We then went ahead and used a number 3 Avinash and placed the Avinash down to the knee under fluoroscopy, and when we brought the Avinash back, there was a tremendous amount of embolus and clot that was removed. We did this with three passes and then there was good backbleeding in our SFA. We opened our profunda and the profunda had good backbleeding. We then went ahead and placed a number 3 Avinash up in the iliac arteries and we were able to open the inflow as clot was removed. We then went ahead and placed a short 6-Honduran sheath into the common femoral artery and shot an angiogram of the right lower extremity showing that the patient had good blood flow down into the foot. At this point, we went ahead and using 6-0 Prolene double-arm, we did a running stitch and closed our arteriotomy. Once closed, we then opened the distal artery first and then the proximal artery and there was a good pulse in our artery. At this point, we put some wet gauze into the groin. We went ahead and moved over to the left groin and in the same manner, using ultrasound guidance, we then marked our common femoral artery bifurcation and using a skin marker, we were able to draw a vertical incision. Using a 15-blade, we then made a 7-cm incision in the left groin. Bovie electrocautery was used to control hemostasis. Using Bovie electrocautery, we were able to dissect all the way down to the femoral sheath. The femoral sheath was then dissected and we isolated the common femoral artery, the femoral artery and the SFA using vessel loops. We then went ahead and gave an additional 2000 units of IV heparin. We then went ahead and got proximal and distal control on our arteries. At this point, we then went ahead and made a transverse incision using a number-11 blade on the common femoral artery. In the same manner, we went ahead and used a number 3 Avinash and we were able to place it down under fluoroscopy all the way into the tibial vessels such as the peroneal artery and the posterior tibial artery, as well. We were able to perform thrombectomy of the tibials, the popliteal, the SFA and all the clot was removed. Multiple passes were made and we had good backbleeding in the SFA then. We then went ahead and used our number 3 Avinash and placed it up into the iliac arteries and we were able to remove embolus and clot from there, as well, and now we had good inflow. At this point, we placed a short 6-Honduran sheath into the arteriotomy and shot an angiogram of the left lower extremity and there was good flow into the foot and the blood vessels were patent. At this point, we went ahead and using a 6-0 Prolene double-arm, we made a running stitch and we closed our arteriotomy. We then opened the distal artery first and then the proximal artery and there was no bleeding. We then irrigated both groin incisions copiously. We then used 3-0 Vicryl and the subcutaneous tissue was approximated in an interrupted manner for both groins and the skin was closed with skin pancho. The areas were then dried, 4 x 4's and Tegaderms were placed. The patient tolerated the procedure with no complications. At the end of the procedure, the patient had good dopplerable DP and PT pulses. The patient was transferred to PACU in stable condition and was started on IV heparin. GARRETT QUIÑONEZ DO [id number]
== END 2016-12-13 15:12 | disposition home or self-care (01) | DRG 271 ==
LOC: JER 15:53 → JERBED 22:48 → J4W 12-04 00:12 → JICU 12-06 21:20 → J2W 12-07 17:45 → J4S 12-08 06:39
PROVIDERS: ADMIT Specialist; ATTEND Internal Medicine
PROC: 04CS0ZZ Extirpation of Matter from Left Posterior Tibial Artery, Open Approach (ICD-10-PCS; 2016-12-06)
PROC: 04CN0ZZ Extirpation of Matter from Left Popliteal Artery, Open Approach (ICD-10-PCS; 2016-12-06)
PROC: B40GYZZ Plain Radiography of Left Lower Extremity Arteries using Other Contrast (ICD-10-PCS; 2016-12-06)
PROC: B40FYZZ Plain Radiography of Right Lower Extremity Arteries using Other Contrast (ICD-10-PCS; 2016-12-06)
PROC: 04CF0ZZ Extirpation of Matter from Left Internal Iliac Artery, Open Approach (ICD-10-PCS; principal; 2016-12-06 16:30)
PROC: 04C Lower Arteries, Extirpation (ICD-10-PCS; 2016-12-06 16:30)
DX: I74.3 Embolism and thrombosis of arteries of the lower extremities (principal); I48.4 Atypical atrial flutter; I13.0 Hypertensive heart and chronic kidney disease with heart failure and stage 1 through stage 4 chronic kidney disease, or unspecified chronic kidney disease; I50.42 Chronic combined systolic (congestive) and diastolic (congestive) heart failure; I42.2 Other hypertrophic cardiomyopathy; I73.9 Peripheral vascular disease, unspecified; I25.10 Atherosclerotic heart disease of native coronary artery without angina pectoris; I25.2 Old myocardial infarction; I25.5 Ischemic cardiomyopathy; G43.909 Migraine, unspecified, not intractable, without status migrainosus; F17.210 Nicotine dependence, cigarettes, uncomplicated; N18.9 Chronic kidney disease, unspecified; Z91.14 Patient's other noncompliance with medication regimen; I48.0 Paroxysmal atrial fibrillation
CPT/HCPCS: 36415; 71020-TC; 75635-TC; 76000-TC; 80048; 80053; 82553; 83735; 84100; 84484; 85025; 85027; 85610; 85730; 88304-TC; 90670; 93005; 93010; 93306-TC; 93925-TC; 93970-TC; 94760; 97116-GP; 97161-GP; 99283-25; J1644

== ENCOUNTER 2017-04-02 19:40 | Inpatient (IN) | payer OTHER ==
--- NOTE | 2017-04-02 20:39 | PDOC ---
History of Present Illness <Lazarus Mills - Last Filed: 04/02/17 22:31> - General History Source: Patient Exam Limitations: No Limitations - History of Present Illness Initial Comments: 04/02/17 22:59 The patient is a 76 year old M hx NSTEMI, AF on coumadin, HTN, CAD, CHF, HOCM, chronic thromboembolic disease, who presents to the emergency department with allergic reaction. He reports he ate amhar[place] food from a new restaurant prior to the onset of his symptoms. Patient has bilateral swelling of the eyes after which he developed shortness of breath and activated EMS. PD arrived on the scene first and gave epi at 7:25p. EMS then transported pt to ED. Patient reports he consumed a pint and half of alcohol today. He denies any recent fevers, chills, headache or dizziness. He denies any recent nausea, vomit, diarrhea or constipation. He denies any recent chest pain. He denies any recent dysuria, frequency, urgency or hematuria. Allergies: NKA Past surgical history: None reported. Social History: Denies recreational drug use. Primary Care Physician: Dr. Kesha Barney <Mahogany Olson - Last Filed: 04/02/17 23:01> - General Stated Complaint: ALLERGIC REACTION Time Seen by Provider: 04/02/17 19:58 Past History - Past Medical History Anemia: No Asthma: No Cancer: No Cardiac Disorders: Yes (PAROXYSMAL A.FIBRILLATION/A.FLUTTER) CVA: No COPD: No CHF: No Dementia: No Diabetes: Yes (BORDERLINE) GI Disorders: No Disorders: No HTN: Yes (BORDERLINE) Hypercholesterolemia: Yes Liver Disease: No Seizures: No Thyroid Disease: No - Surgical History Abdominal Surgery: Yes (HERNIA REPAIR) Cardiac Surgery: Yes (CARDIAC CATHERIZATION/CORONARY ANGIOGRAPHY) Cholecystectomy: No Lung Surgery: No Neurologic Surgery: No Orthopedic Surgery: No - Suicide/Smoking/Psychosocial Hx Smoking History: Current every day smoker Have you smoked in the past 12 months: Yes Number of Cigarettes Smoked Daily: 10 If you are a former smoker, when did you quit?: 16 Hx Alcohol Use: Yes (SOCIALLY) Drug/Substance Use Hx: No Substance Use Type: None Hx Substance Use Treatment: No <Lazarus Mills - Last Filed: 04/02/17 22:31> <Mahogany Olson - Last Filed: 04/02/17 23:01> - Past Medical History Allergies/Adverse Reactions: Allergies Allergy/AdvReac Type Severity Reaction Status Date / Time No Known Allergies Allergy Verified 12/03/16 15:54 Home Medications: Ambulatory Orders Aspirin Coated [Ecotrin -] 81 mg PO DAILY #30 tab 12/13/16 Atorvastatin Ca [Lipitor] 40 mg PO HS #30 tablet 12/13/16 Carvedilol [Coreg -] 6.25 mg PO BID #60 tablet 12/13/16 Valsartan [Diovan] 80 mg PO DAILY #30 tablet 12/13/16 Warfarin Sodium [Jantoven] 6 mg PO DAILY 01/30/17 Review of Systems - Review of Systems Able to Perform ROS?: Yes Comments:: 04/02/17 23:00 GENERAL/CONSTITUTIONAL: No fever or chills. No weakness. HEAD, EYES, EARS, NOSE AND THROAT: +Bilateral eye swelling. No change in vision. No ear pain or discharge. No sore throat. GASTROINTESTINAL: No nausea, vomiting, diarrhea or constipation. GENITOURINARY: No dysuria, frequency, or change in urination. CARDIOVASCULAR: +Shortness of breath. No chest pain. RESPIRATORY: No cough, wheezing, or hemoptysis. MUSCULOSKELETAL: No joint or muscle swelling or pain. No neck or back pain. SKIN: No rash NEUROLOGIC: No headache, vertigo, loss of consciousness, or change in strength/ sensation. ENDOCRINE: No increased thirst. No abnormal weight change. HEMATOLOGIC/LYMPHATIC: No anemia, easy bleeding, or history of blood clots. ALLERGIC/IMMUNOLOGIC: +Allergic Reaction. All Other Systems: Reviewed and Negative <Mahogany Olson - Last Filed: 04/02/17 23:01> *Physical Exam - Vital Signs Last Vital Signs Temp Pulse Resp BP Pulse Ox 98.3 F 103 H 18 136/93 100 04/02/17 20:10 04/02/17 20:10 04/02/17 20:10 04/02/17 20:10 04/02/17 20:10 - Physical Exam Comments: 04/02/17 23:00 GENERAL: Alert in resp distress HEAD: No signs of trauma EYES: +Significant bilateral eyelid watery edema. ENT: +Mild glossal edema. Malampati II NECK: Normal ROM, supple, no lymphadenopathy, JVD, or masses LUNGS: moderate air movement, diffuse wheezing, increased WOB HEART: +Tachycardic. +Irregularly irregular heart rate of 110. Normal S1 and S2 , no murmurs, rubs or gallops ABDOMEN: Soft, nontender, normoactive bowel sounds. No guarding, no rebound. No masses EXTREMITIES: Normal range of motion, no edema. No clubbing or cyanosis. No cords , erythema, or tenderness BACK: No midline spinal tenderness in cervical/thoracic/lumbar region NEUROLOGICAL: Cranial nerves grossly intact, negative pronator drift, 5/5 strength in all 4 extremities, normal sensation to light touch in all 4 extremities. SKIN: Warm, Dry, normal turgor, +erythematous edematous wheals to sternum and forehead <Mahogany Olson - Last Filed: 04/02/17 23:01> ED Treatment Course - LABORATORY CBC & Chemistry Diagram: 04/02/17 20:42 04/02/17 20:42 - RADIOLOGY Radiology Studies Ordered: Category Date Time Status CHEST X-RAY PORTABLE* [RAD] Stat Radiology 04/02/17 20:01 Ordered <Lazarus Mills - Last Filed: 04/02/17 22:31> - LABORATORY CBC & Chemistry Diagram: 04/02/17 20:42 04/02/17 20:42 - ADDITIONAL ORDERS Additional order review: Laboratory Results 04/02/17 04/02/17 04/02/17 20:42 20:42 20:42 PT with INR 82.80 H INR 7.33 H* D PTT (Actin FS) Sodium Potassium Chloride Carbon Dioxide Anion Gap BUN Creatinine Creat Clearance w eGFR Random Glucose Calcium Magnesium Cancelled Total Bilirubin AST ALT Alkaline Phosphatase Troponin I Cancelled B-Natriuretic Peptide Total Protein Albumin Alcohol, Quantitative < 5.0 Blood Type Antibody Screen 04/02/17 04/02/17 04/02/17 20:42 20:42 20:42 PT with INR INR PTT (Actin FS) Sodium 143 Potassium 4.4 Chloride 112 H Carbon Dioxide 24 Anion Gap 7 L BUN 13 Creatinine 1.1 D Creat Clearance w eGFR > 60 Random Glucose 122 H D Calcium 7.6 L Magnesium 1.9 Total Bilirubin 0.2 D AST 16 D ALT 18 Alkaline Phosphatase 92 D Troponin I 0.59 H B-Natriuretic Peptide Cancelled 2326.12 H Total Protein 6.3 L Albumin 3.0 L D Alcohol, Quantitative Blood Type B POSITIVE Antibody Screen Negative 04/02/17 20:42 PT with INR INR PTT (Actin FS) 46.6 H Sodium Potassium Chloride Carbon Dioxide Anion Gap BUN Creatinine Creat Clearance w eGFR Random Glucose Calcium Magnesium Total Bilirubin AST ALT Alkaline Phosphatase Troponin I B-Natriuretic Peptide Total Protein Albumin Alcohol, Quantitative Blood Type Antibody Screen 04/02/17 20:42 RBC 4.46 MCV 92.8 MCHC 32.7 RDW 15.2 MPV 8.7 Neutrophils % 74.8 Lymphocytes % 18.7 Monocytes % 5.6 Eosinophils % 0.5 Basophils % 0.4 - Medications Given in the ED: ED Medications Discontinued Medications Generic Name Dose Route Start Last Admin Trade Name Freq PRN Reason Stop Dose Admin Aspirin 325 mg 04/02/17 22:22 04/02/17 22:44 Asa - PO 04/02/17 22:23 325 mg ONCE ONE Administration <Mahogany Olson - Last Filed: 04/02/17 23:01> Medical Decision Making - Critical Care Time Total Critical Care Time (minutes): 60 Critical Care Statement: The care of this patient involved high complexity decision making to prevent further life threatening deterioration of the patient 's condition and/or to evaluate & treat vital organ system(s) failure or risk of failure. - Medical Decision Making 04/02/17 20:47 76-year-old male with multiple medical problems presents with anaphylaxis status post epi. On arrival to the emergency department patient received steroids, Benadryl, Pepcid and fluids and placed on the monitor. Patient initially satting 100%, but given wheezing, respiratory distress and increased work of breathing, will give nebs and keep epi at the bedside as well as airway equipment.We'll also order a chest x-ray and send labs. 04/02/17 22:50 Lung sounds much improved after nebs and period of observation. The patient reports improvement in his shortness of breath. Lungs sound much more clear with only mild wheezing now. Labs remarkable for troponin of 0.6, upon review of EMR the patient frequently has an elevated troponin however epinephrine may have contributed to this. Patient also has an elevated BNP and chest x-ray concerning for CHF. Will admit the patient for further observation and management. Discussed the case with the admitting nurse practitioner. Case discussed in detail with admitting physician Dr. Martinez including history, physical exam and ancillary studies. Admitting physician has assumed care for the patient, will follow all pending diagnostics and will complete the evaluation and treatment. <Lazarus Mills - Last Filed: 04/02/17 22:31> *DC/Admit/Observation/Transfer - Discharge Dispostion Admit: Yes - Attestations Physician Attestion: 04/02/17 22:53 I, Dr. Lazarus Mills MD, attest that this document has been prepared under my direction and personally reviewed by me in its entirety. I further attest, that it accurately reflects all work, treatment, procedures and medical decision -making performed by me. <Lazarus Mills - Last Filed: 04/02/17 22:31> - Attestations Scribe Attestion: 04/02/17 23:01 Documentation prepared by Mahogany Olson, acting as medical laboratory technical officer for Lazarus Mills MD. <Mahogany Olson - Last Filed: 04/02/17 23:01> Diagnosis at time of Disposition: Anaphylaxis, NSTEMI (non-ST elevated myocardial infarction), Pulmonary vascular congestion - Discharge Dispostion Condition at time of disposition: Stable - Referrals Referrals: Kesha Aguila MD [Primary Care Provider] - - Patient Instructions - Post Discharge Activity
[2017-04-02 20:40] VITALS: BMI 30.3
[2017-04-02 21:13] LABS: BASO % 0.4 % (0-2.0); EOS % 0.5 % (0-4.5); HEMATOCRIT 41.4 % (35.4-49); HEMOGLOBIN 13.6 GM/dL (11.7-16.9); LYMPH % 18.7 % (8-40); MCH 30.4 pg (25.7-33.7); MCHC 32.7 g/dl (32.0-35.9); MEAN CELL VOLUME 92.8 fl (80-96); MEAN PLT VOLUME 8.7 fl (7.5-11.1); MONO % 5.6 % (3.8-10.2); NEUT % 74.8 % (42.8-82.8); PLATELET COUNT 232 K/MM3 (134-434); RBC 4.46 M/mm3 (4.00-5.60); RDW 15.2 % (11.9-15.9); WHITE BLOOD COUNT 9.2 K/mm3 (4.0-10.0)
[2017-04-02 21:30] LABS: PROTHROMBIN TIME (PATIENT) 82.8 SEC (9.98-11.88)
[2017-04-02 21:33] LABS: INR 7.33 (0.82-1.09)
[2017-04-02 21:41] LABS: ALK PHOS 92 U/L (45-117); ANION GAP 7 (8-16); BILIRUBIN,TOTAL 0.2 mg/dL (0.2-1.0); BLOOD UREA NITROGEN 13 mg/dL (7-18); CALCIUM 7.6 mg/dL (8.5-10.1); CHLORIDE 112 mmol/L (98-107); CO2 24 mmol/L (21-32); CREATININE 1.1 mg/dL (0.7-1.3); GLUCOSE,RANDOM 122 mg/dL (74-106); POTASSIUM 4.4 mmol/L (3.5-5.1); SGOT/AST 16 U/L (15-37); SGPT/ALT 18 U/L (12-78); SODIUM 143 mmol/L (136-145); TOT PROT 6.3 g/dl (6.4-8.2)
[2017-04-02 22:00] LABS: N-TERMINAL BNP 2326.12 pg/ml (5-450)
[2017-04-02 22:11] LABS: MAGNESIUM 1.9 mg/dL (1.8-2.4)
[2017-04-02] MEDS ORDERED: ASPIRIN 325 MG TABLET PO ONE (22:22)
--- NOTE | 2017-04-03 02:43 | HP ---
CHIEF COMPLAINT: Swollen Eyes, SOB PCP: Dr. Simba Steward HISTORY OF PRESENT ILLNESS: This is a 76 y/o man with a PMHx of Paroxysmal Afib (on Coumadin), Diabetes Mellitus, Ischemic Cardiomyopathy, Alcohol Abuse. Who presents to the ED with anaphylaxis after eating [place] Food- shrimp and boneless spare ribs. Patient reports having itchy eyes, and after rubbing them he noted both eyes were swollen. Patient reports having tongue and lip swelling. he called EMS, on their arrival he was given Epinehrine x1 enroute, Patient also reports being constipated then having foul smelling stools. Patient does not recall having baseline Colonoscopy. Patient denies fever, chills, dizziness, CP, N/V/D, dysuria. ER course was notable for: (1) Supratherapeutic INR 7.33 (2) NSTEMI- Troponin I 0.59 (less then baseline) (3) Anaphylaxis Protocol- Solumederol, Pepcid, Benadryl given in ED Recent Travel: None PAST MEDICAL HISTORY: See HPI PAST SURGICAL HISTORY: Hernia Repair Social History: Smoking: Cigarettes < 10/PPD greater than 60+ yrs Alcohol: Hx Alcohol Abuse- pt reports drinking socially Drugs: None Family History: Father: [place] age 60 Mother: Stroke Allergies No Known Allergies Allergy (Verified 12/03/16 15:54) HOME MEDICATIONS: Home Medications Medication Instructions Recorded Aspirin Coated [Ecotrin -] 81 mg PO DAILY #30 tab 12/13/16 Atorvastatin Ca [Lipitor] 40 mg PO HS #30 tablet 12/13/16 Carvedilol [Coreg -] 6.25 mg PO BID #60 tablet 12/13/16 Valsartan [Diovan] 80 mg PO DAILY #30 tablet 12/13/16 Warfarin Sodium [Jantoven] 6 mg PO DAILY 01/30/17 REVIEW OF SYSTEMS CONSTITUTIONAL: generalized weakness, malaise, loss of appetite, Absent: fever, chills, diaphoresis, weight change HEENT: swollen eyes, throat/tonsilar swelling Absent: rhinorrhea, nasal congestion, throat pain, throat swelling, difficulty swallowing, mouth swelling, ear pain, eye pain, visual changes CARDIOVASCULAR: Absent: chest pain, syncope, palpitations, irregular heart rate, lightheadedness , peripheral edema RESPIRATORY: Absent: cough, shortness of breath, dyspnea with exertion, orthopnea, wheezing, stridor, hemoptysis GASTROINTESTINAL: Absent: abdominal pain, abdominal distension, nausea, vomiting, diarrhea, constipation, melena, hematochezia GENITOURINARY: Absent: dysuria, frequency, urgency, hesitancy, hematuria, flank pain, genital pain MUSCULOSKELETAL: Absent: myalgia, arthralgia, joint swelling, back pain, neck pain SKIN: Absent: rash, itching, pallor HEMATOLOGIC/IMMUNOLOGIC: Absent: easy bleeding, easy bruising, lymphadenopathy, frequent infections ENDOCRINE: Absent: unexplained weight gain, unexplained weight loss, heat intolerance, cold intolerance NEUROLOGIC: Absent: headache, focal weakness or paresthesias, dizziness, unsteady gait, seizure, mental status changes, bladder or bowel incontinence PSYCHIATRIC: Absent: anxiety, depression, suicidal or homicidal ideation, hallucinations. PHYSICAL EXAMINATION Vital Signs - 24 hr 04/02/17 04/02/17 20:10 22:33 Temperature 98.3 F 97.8 F Pulse Rate 103 H Pulse Rate [ 66 Left Radial] Respiratory 18 18 Rate Blood Pressure 136/93 Blood Pressure 141/86 [Left Arm] O2 Sat by Pulse 100 100 Oximetry (%) GENERAL: Asleep but arousable, and fully oriented, in no acute distress. HEAD: Normal with no signs of trauma. EYES: Pupils equal, round and reactive to light, extraocular movements intact, sclera anicteric, conjunctiva injected. No lid lag. EARS, NOSE, THROAT: Ears normal, nares patent, oropharynx clear without exudates. Dry mucous membranes. NECK: Normal range of motion, supple without lymphadenopathy, JVD, or masses. LUNGS: Scattered diffuse wheeze bilaterally. no crackles. No accessory muscle use. HEART: Regular rate and rhythm, normal S1 and S2 without murmur, rub or gallop. ABDOMEN: Soft, nontender, not distended, normoactive bowel sounds, no guarding, no rebound, no masses. No hepatomegaly or splenomegaly. MUSCULOSKELETAL: Normal range of motion at all joints. No bony deformities or tenderness. No CVA tenderness. UPPER EXTREMITIES: 2+ pulses, warm, well-perfused. No cyanosis. No clubbing. No peripheral edema. LOWER EXTREMITIES: 2+ pulses, warm, well-perfused. No calf tenderness. +1 L>R peripheral edema. NEUROLOGICAL: Cranial nerves II-XII intact. Normal speech. Gait not observed. PSYCHIATRIC: Cooperative. Good eye contact. Appropriate mood and affect. SKIN: Warm, dry, normal turgor, no rashes or lesions noted, normal capillary refill. Laboratory Results - last 24 hr 04/02/17 04/02/17 04/02/17 20:42 20:42 20:42 WBC 9.2 RBC 4.46 Hgb 13.6 D Hct 41.4 D MCV 92.8 MCH 30.4 MCHC 32.7 RDW 15.2 Plt Count 232 D MPV 8.7 Neutrophils % 74.8 Lymphocytes % 18.7 Monocytes % 5.6 Eosinophils % 0.5 Basophils % 0.4 PT with INR INR PTT (Actin FS) 46.6 H Sodium 143 Potassium 4.4 Chloride 112 H Carbon Dioxide 24 Anion Gap 7 L BUN 13 Creatinine 1.1 D Creat Clearance w eGFR > 60 Random Glucose 122 H D Calcium 7.6 L Magnesium 1.9 Total Bilirubin 0.2 D AST 16 D ALT 18 Alkaline Phosphatase 92 D Troponin I 0.59 H B-Natriuretic Peptide 2326.12 H Total Protein 6.3 L Albumin 3.0 L D Alcohol, Quantitative Blood Type Antibody Screen 04/02/17 04/02/17 04/02/17 20:42 20:42 20:42 WBC RBC Hgb Hct MCV MCH MCHC RDW Plt Count MPV Neutrophils % Lymphocytes % Monocytes % Eosinophils % Basophils % PT with INR 82.80 H INR 7.33 H* D PTT (Actin FS) Sodium Potassium Chloride Carbon Dioxide Anion Gap BUN Creatinine Creat Clearance w eGFR Random Glucose Calcium Magnesium Total Bilirubin AST ALT Alkaline Phosphatase Troponin I B-Natriuretic Peptide Cancelled Total Protein Albumin Alcohol, Quantitative Blood Type B POSITIVE Antibody Screen Negative 04/02/17 04/02/17 20:42 20:42 WBC RBC Hgb Hct MCV MCH MCHC RDW Plt Count MPV Neutrophils % Lymphocytes % Monocytes % Eosinophils % Basophils % PT with INR INR PTT (Actin FS) Sodium Potassium Chloride Carbon Dioxide Anion Gap BUN Creatinine Creat Clearance w eGFR Random Glucose Calcium Magnesium Cancelled Total Bilirubin AST ALT Alkaline Phosphatase Troponin I Cancelled B-Natriuretic Peptide Total Protein Albumin Alcohol, Quantitative < 5.0 Blood Type Antibody Screen ASSESSMENT/PLAN: This is a 76 y/o man with a PMHx of Paroxysmal Afib/Flutter (on Coumadin), DM, Ischemic Cardiomyopathy, Alcohol Abuse. Placed in Tele Observation Anaphylaxis, NSTEMI. Plan: 1. Anaphylaxis- Possibly from Shrimp vs Sparerib ingestion vs Ethanol Abuse. Patient received Epinephrine, Solumederol, Pepcid, Benadryl, per protocol. Continue Benadryl, Pepcid, Prednisone, Continue Cardiac monitoring, O2, 2. NSTEMI- Serial Enzymes, Appreciate Cardiology Consult, Asa, EKG - Afib rate controlled. RBBB, Lateral infarct, age undetermined. 3. Supratherapeutic INR- Possibly due to Chronic Alcohol Abuse. Will Hold Coumadin, patient is not actively bleeding, no need for Vit K at this time, serial INRs. 4. A-Fib- Hold Coumadin secondary to Supratherapeutic INR, EKG- Afib rate controlled 5. Ischemic Cardiomyopathy- Continue home meds, continue to monitor and treat with interventions accordingly 6. Diabetes Mellitus- BGMs, Hold ISS secondary to NPO, for anaphylaxis will adjust when meals resumed. 7. Alcohol Abuse- ETOH level- pending, Alcohol cessation discussed with patient who is not amendable. CIWAr- 1, Librium prn 8. FEN- NS@42ml/hr, Replete lytes prn, NPO 9. DVT Prophylaxis- SCDs, no ACs- Supratherapeutic INR Code Status: Full Code Dispo: Observation Problem List - Problem (1) Anaphylaxis Code(s): T78.2XXA - ANAPHYLACTIC SHOCK, UNSPECIFIED, INITIAL ENCOUNTER (2) NSTEMI (non-ST elevated myocardial infarction) Code(s): I21.4 - NON-ST ELEVATION (NSTEMI) MYOCARDIAL INFARCTION (3) Left ventricular systolic dysfunction Code(s): I51.9 - HEART DISEASE, UNSPECIFIED (4) Coronary artery disease Code(s): I25.10 - ATHSCL HEART DISEASE OF [place] CORONARY ARTERY W/O ANG PCTRS Qualifiers: Coronary Disease-Associated Artery/Lesion type: [place] artery [place] vs. transplanted heart: [place] heart Associated angina: without angina Qualified Code(s): I25.10 - Atherosclerotic heart disease of [place] coronary artery without angina pectoris (5) HTN (hypertension) Code(s): I10 - ESSENTIAL (PRIMARY) HYPERTENSION Qualifiers: Hypertension type: essential hypertension Qualified Code(s): I10 - Essential (primary) hypertension (6) Hypertrophic cardiomyopathy Code(s): I42.2 - OTHER HYPERTROPHIC CARDIOMYOPATHY (7) Paroxysmal atrial fibrillation Code(s): I48.0 - PAROXYSMAL ATRIAL FIBRILLATION (8) DVT prophylaxis Code(s): YFP8205 - Visit type - Emergency Visit Emergency Visit: Yes ED Registration Date: 04/02/17 Care time: The patient presented to the Emergency Department on the above date and was hospitalized for further evaluation of their emergent condition. - New Patient This patient is new to me today: Yes Date on this admission: 04/03/17
[2017-04-03] MEDS ORDERED: methylPREDNISolone NA SUCC 125 MG/2 ML VIAL IVPUSH ONE (06:36)
[2017-04-03] MEDS ORDERED: SODIUM CHLORIDE 1,000 ML IV SCH (08:00)
[2017-04-03 08:36] LABS: BASO % 0.1 % (0-2.0); EOS % 0.1 % (0-4.5); HEMATOCRIT 41.7 % (35.4-49); HEMOGLOBIN 13.4 GM/dL (11.7-16.9); LYMPH % 7.6 % (8-40); MCHC 32.2 g/dl (32.0-35.9); MEAN CELL VOLUME 93.1 fl (80-96); MEAN PLT VOLUME 8.8 fl (7.5-11.1); MONO % 0.6 % (3.8-10.2); NEUT % 91.6 % (42.8-82.8); PLATELET COUNT 206 K/MM3 (134-434); RBC 4.48 M/mm3 (4.00-5.60); RDW 15.3 % (11.9-15.9); WHITE BLOOD COUNT 10.9 K/mm3 (4.0-10.0)
[2017-04-03 08:59] LABS: PROTHROMBIN TIME (PATIENT) 83.3 SEC (9.98-11.88)
[2017-04-03 09:03] LABS: MAGNESIUM 1.8 mg/dL (1.8-2.4); PHOSPHOROUS 2.5 mg/dL (2.5-4.9)
[2017-04-03 09:05] LABS: ANION GAP 12 (8-16); BLOOD UREA NITROGEN 17 mg/dL (7-18); CALCIUM 8.2 mg/dL (8.5-10.1); CHLORIDE 111 mmol/L (98-107); CO2 20 mmol/L (21-32); CREATININE 1.3 mg/dL (0.7-1.3); GLUCOSE,RANDOM 234 mg/dL (74-106); POTASSIUM 4.5 mmol/L (3.5-5.1); SODIUM 143 mmol/L (136-145)
[2017-04-03 09:06] LABS: INR 7.37 (0.82-1.09)
--- NOTE | 2017-04-03 12:02 | HOSP ---
Subjective - Review of Symptoms Events since last encounter: Patient stated that after eating [place] food started to develop swelling of the eyes with itchiness. He had food from this place before but had different food this time. Vital Signs Temperature 97.8 F 04/02/17 22:33 Pulse Rate 66 04/02/17 22:33 Respiratory Rate 18 04/02/17 22:33 Blood Pressure 141/86 04/02/17 22:33 O2 Sat by Pulse Oximetry (%) 100 04/02/17 22:33 GENERAL: The patient is awake, alert, and fully oriented, in no acute distress. HEAD: Normal with no signs of trauma. EYES: PERRL, extraocular movements intact, sclera anicteric, conjunctiva clear. eyelids are swollen bl, able to see the cornea bl ENT: Ears normal, oropharynx clear without exudates, moist mucous membranes. NECK: Trachea midline, full range of motion, supple. LUNGS: Breath sounds equal, clear to auscultation bilaterally, no wheezes, no crackles, no accessory muscle use. HEART: Regular rate and rhythm, S1, S2 , DINORAH 2/6. ABDOMEN: Soft, nontender, nondistended, normoactive bowel sounds, no guarding, no rebound, no hepatosplenomegaly, no mass APPRECIATED. EXTREMITIES: pulses are positive NEUROLOGICAL: Cranial nerves II through XII grossly intact. Normal speech, gait not observed. PSYCH: Normal mood, normal affect. SKIN: Warm, dry, normal turgor, no rashes or lesions noted CBCD WBC 10.9 K/mm3 (4.0-10.0) H 04/03/17 08:15 RBC 4.48 M/mm3 (4.00-5.60) 04/03/17 08:15 Hgb 13.4 GM/dL (11.7-16.9) 04/03/17 08:15 Hct 41.7 % (35.4-49) 04/03/17 08:15 MCV 93.1 fl (80-96) 04/03/17 08:15 MCHC 32.2 g/dl (32.0-35.9) 04/03/17 08:15 RDW 15.3 % (11.9-15.9) 04/03/17 08:15 Plt Count 206 K/MM3 (134-434) 04/03/17 08:15 MPV 8.8 fl (7.5-11.1) 04/03/17 08:15 CMP Sodium 143 mmol/L (136-145) 04/03/17 08:15 Potassium 4.5 mmol/L (3.5-5.1) 04/03/17 08:15 Chloride 111 mmol/L (98-107) H 04/03/17 08:15 Carbon Dioxide 20 mmol/L (21-32) L 04/03/17 08:15 Anion Gap 12 (8-16) 04/03/17 08:15 BUN 17 mg/dL (7-18) D 04/03/17 08:15 Creatinine 1.3 mg/dL (0.7-1.3) 04/03/17 08:15 Creat Clearance w eGFR > 60 (>60) 04/02/17 20:42 Random Glucose 234 mg/dL (74-106) H D 04/03/17 08:15 Calcium 8.2 mg/dL (8.5-10.1) L 04/03/17 08:15 Total Bilirubin 0.2 mg/dL (0.2-1.0) D 04/02/17 20:42 AST 16 U/L (15-37) D 04/02/17 20:42 ALT 18 U/L (12-78) 04/02/17 20:42 Alkaline Phosphatase 92 U/L (45-117) D 04/02/17 20:42 Total Protein 6.3 g/dl (6.4-8.2) L 04/02/17 20:42 Albumin 3.0 g/dl (3.4-5.0) L D 04/02/17 20:42 CARDIAC ENZYMES Troponin I 0.64 ng/ml (0.00-0.05) H* 04/03/17 08:15 Current Medications Generic Name Dose Route Start Last Admin Trade Name Freq PRN Reason Stop Dose Admin Aspirin 81 mg 04/03/17 10:00 Asa - PO DAILY [facility] Atorvastatin Calcium 40 mg 04/03/17 22:00 Lipitor - PO HS CHELLY Carvedilol 6.25 mg 04/03/17 22:00 Coreg - PO BID CHELLY Diphenhydramine HCl 12.5 mg 04/03/17 06:34 Benadryl Injection - IVPUSH Q4H PRN FOR ITCHING Famotidine 20 mg in 12 mls @ 144 mls/hr 04/03/17 10:00 Pepcid 20 Mg/12 Ml Push IVPUSH BID CHELLY Sodium Chloride 1,000 mls @ 42 mls/hr 04/03/17 08:00 Normal Saline - IV ASDIR CHELLY Prednisone 60 mg 04/04/17 10:00 Deltasone - PO DAILY CHELLY Valsartan 80 mg 04/03/17 12:00 Diovan - PO DAILY [facility] Home Medications Medication Instructions Recorded Aspirin Coated [Ecotrin -] 81 mg PO DAILY #30 tab 12/13/16 Atorvastatin Ca [Lipitor] 40 mg PO HS #30 tablet 12/13/16 Carvedilol [Coreg -] 6.25 mg PO BID #60 tablet 12/13/16 Valsartan [Diovan] 80 mg PO DAILY #30 tablet 12/13/16 Warfarin Sodium [Jantoven] 6 mg PO DAILY 01/30/17 PE: eyes are less swollen today rest PE per resident's note A/P: This is a 76 year old man with a history of hypertrophic cardiomyopathy, non- obstructive CAD, chronic systolic/diastolic HF, HTN, PAF who presented to the ER with right leg pain #Anaphylaxis- resolving. acute reaction post eating [place] food can't r/o food allergy, follow with Systems Engineering Manager upon discharge, to have allergy testing. on steroid, benadryl, and pepcid. eyes less swollen, no SOB UPON discharge please give prescriptions for Epipen, zantac, prednisone 40mg( 5 day supply), and benadryl #demand ischemia:trops: 0.59 --> 0.66 --> 0.64, cardio consult appreciated. Will consider DCCV after 3-4 weeks of AC continue ASA, carvedilol, valsartan, lipitor #Supratherapeutic INR continue to hold coumadin 7.37-->6.19, daily PT/INR # A-Fib rate controlled #Diabetes Mellitus on BGMs, ISS #Alcohol Abuse counselled DVT Px: Coumadin supratherapeutic INR Physical Examination Vital Signs: Vital Signs Temperature 97.8 F 04/02/17 22:33 Pulse Rate 66 04/02/17 22:33 Respiratory Rate 18 04/02/17 22:33 Blood Pressure 141/86 04/02/17 22:33 O2 Sat by Pulse Oximetry (%) 100 04/02/17 22:33 Labs: CBC, BMP 04/03/17 08:15 04/03/17 08:15
[2017-04-03] MEDS: FAMOTIDINE IV 20 MG/12 ML VIAL IVPUSH SCH ×2 (13:53→21:36)
[2017-04-03] MEDS: VALSARTAN 80 MG TABLET (UD) PO SCH (13:53)
[2017-04-03] MEDS: ASPIRIN 81 MG CHEWABLE TABLETS PO SCH (13:53)
[2017-04-03] MEDS ORDERED: VALSARTAN 80 MG TABLET (UD) ONE (13:56)
[2017-04-03] MEDS ORDERED: CARVEDILOL 12.5 MG TABLET (FP) ONE (13:56)
--- NOTE | 2017-04-03 15:26 | EKG ---
Test Reason : Blood Pressure : / mmHG Vent. Rate : 092 BPM Atrial Rate : 129 BPM P-R Int : 000 ms QRS Dur : 144 ms QT Int : 434 ms P-R-T Axes : 000 256 -23 degrees QTc Int : 536 ms SUSPECT ARM LEAD REVERSAL, INTERPRETATION ASSUMES NO REVERSAL ATRIAL FIBRILLATION RIGHT BUNDLE BRANCH BLOCK POSSIBLE LATERAL INFARCT (CITED ON OR BEFORE 12-APR-2016) ABNORMAL ECG WHEN COMPARED WITH ECG OF 03-DEC-2016 21:03, RIGHT BUNDLE BRANCH BLOCK IS NOW PRESENT CRITERIA FOR INFERIOR INFARCT ARE NO LONGER PRESENT QUESTIONABLE CHANGE IN INITIAL FORCES OF ANTEROLATERAL LEADS Confirmed by YOLA NJ MD ([id number]) on 04/03/2017 3:25:55 PM Referred By: Confirmed By:YOLA NJ MD
--- NOTE | 2017-04-03 16:37 | CON.CARD ---
Consult Consult Specialty:: Cardiology Referred by:: Hospitalist Medicine Reason for Consultation:: Afib - History of Present Illness Chief Complaint: Food allergy History of Present Illness: This is a 76 y/o man with a PMHx of Persistent Afib [id number] with peripheral arterial embolism (on Coumadin), Diabetes Mellitus, Apical Hypertrophic Cardiomyopathy, Alcohol Abuse, nonobstructive CAD who presents to the ED with anaphylaxis after eating [place] Food- shrimp and boneless spare ribs. Patient reports having itchy eyes, and after rubbing them he noted both eyes were swollen. Patient reports having tongue and lip swelling, called EMS, on their arrival he was given Epinehrine x1 enroute, and anaphylaxis protocol in ER, noted to have supratherapeutic INR 7.33. He is asymptomatic from cardiovascular standpoint and denies chest pain, dyspnea, near or true syncope, orthopnea, PND, LE edema or change in exercise capacity. - History Source History Provided By: Patient Limitations to Obtaining History: No Limitations - Past Medical History Cardio/Vascular: Yes: AFIB, HTN, [place] - Past Surgical History Past Surgical History: Yes: Hernia Repair - Alcohol/Substance Use Hx Alcohol Use: Yes (SOCIALLY) History of Substance Use: reports: None - Smoking History Smoking history: Current every day smoker Have you smoked in the past 12 months: Yes Aproximately how many cigarettes per day: 10 If you are a former smoker, when did you quit?: 04.06.16 Home Medications - Allergies Allergies/Adverse Reactions: Allergies Allergy/AdvReac Type Severity Reaction Status Date / Time No Known Allergies Allergy Verified 12/03/16 15:54 - Home Medications Home Medications: Ambulatory Orders Aspirin Coated [Ecotrin -] 81 mg PO DAILY #30 tab 12/13/16 Atorvastatin Ca [Lipitor] 40 mg PO HS #30 tablet 12/13/16 Carvedilol [Coreg -] 6.25 mg PO BID #60 tablet 12/13/16 Valsartan [Diovan] 80 mg PO DAILY #30 tablet 12/13/16 Warfarin Sodium [Jantoven] 6 mg PO DAILY 01/30/17 Review of Systems Unable to obtain ROS, reason: Eye lid sweliing Vital Signs: Vital Signs Temperature 97.8 F 04/02/17 22:33 Pulse Rate 81 04/03/17 14:27 Respiratory Rate 18 04/03/17 14:27 Blood Pressure 138/72 04/03/17 14:27 O2 Sat by Pulse Oximetry (%) 100 04/03/17 14:27 Constitutional: Yes: No Distress, Calm Neck: Yes: Supple Respiratory: Yes: Regular, Diminished Gastrointestinal: Yes: Normal Bowel Sounds, Soft Cardiovascular: Yes: Pulse Irregular JVD: No Carotid Bruit: No Heart Sounds: Yes: S1, S2 Murmur: Yes: Systolic Murmur, Grade 1 Edema: No - Other Data Labs, Other Data: CBC, BMP 04/03/17 08:15 04/03/17 08:15 INR, PTT INR 7.37 (0.82-1.09) H* 04/03/17 08:15 Troponin, BNP 04/02/17 04/02/17 04/02/17 20:42 20:42 20:42 Troponin I 0.59 H Cancelled B-Natriuretic Peptide 2326.12 H Cancelled 04/03/17 04/03/17 05:00 08:15 Troponin I 0.66 H* 0.64 H* B-Natriuretic Peptide Troponin, BNP 04/02/17 04/02/17 04/02/17 20:42 20:42 20:42 Troponin I 0.59 H Cancelled B-Natriuretic Peptide 2326.12 H Cancelled 04/03/17 04/03/17 05:00 08:15 Troponin I 0.66 H* 0.64 H* B-Natriuretic Peptide Afib @ 92 RBBB Problem List - Problems (1) Demand ischemia Code(s): I24.8 - OTHER FORMS OF ACUTE ISCHEMIC HEART DISEASE (2) Anaphylaxis Code(s): T78.2XXA - ANAPHYLACTIC SHOCK, UNSPECIFIED, INITIAL ENCOUNTER Qualifiers: Encounter type: initial encounter Qualified Code(s): T78.2XXA - Anaphylactic shock, unspecified, initial encounter (3) Chronic thromboembolic disease Code(s): I74.9 - EMBOLISM AND THROMBOSIS OF UNSPECIFIED ART[place] (4) Coronary artery disease Code(s): I25.10 - ATHSCL HEART DISEASE OF [place] CORONARY ARTERY W/O ANG PCTRS Qualifiers: Coronary Disease-Associated Artery/Lesion type: [place] artery [place] vs. transplanted heart: [place] heart Associated angina: without angina Qualified Code(s): I25.10 - Atherosclerotic heart disease of [place] coronary artery without angina pectoris (5) HTN (hypertension) Code(s): I10 - ESSENTIAL (PRIMARY) HYPERTENSION Qualifiers: Hypertension type: essential hypertension Qualified Code(s): I10 - Essential (primary) hypertension (6) Hypertrophic cardiomyopathy Code(s): I42.2 - OTHER HYPERTROPHIC CARDIOMYOPATHY (7) Peripheral arterial disease Code(s): I73.9 - PERIPHERAL VASCULAR DISEASE, UNSPECIFIED (8) Anticoagulant long-term use Code(s): Z79.01 - ASSISTED (CURRENT) USE OF ANTICOAGULANTS (9) Persistent atrial fibrillation Code(s): I48.1 - PERSISTENT ATRIAL FIBRILLATION (10) Diastolic dysfunction without heart failure Code(s): I51.9 - HEART DISEASE, UNSPECIFIED Assessment/Plan R&LHc at [facility] 04/20/2016 showing nonobstructive CAD, severe LV apical hypertrophic cardiomyopathy, mildly elevated right sided pressures, 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 1. Food anaphylaxis resolved 2. H/o bilateral SFA occlusion post thrombectomy, most likely embolic disease related to afib with [id number] score of 6, history of poor compliance with therapy administration and medical F/U 3. CAD with evidence of demand ischemic injury, non obstructive CAD on R&LHc coronary angiogrpahy angina pectoris 4. LV diastolic dysfunction related to apical hypertrophic cardiomyopathy, chronic class I-II NYHA classification, compensated/euvolemic 5. Persistent atrial fibrillation [id number] score of 6, with supratherapeutic INR 6. HTN 7. Poor compliance with medical therapy administration and medical F/U 8. Tobacco abuse PLAN: 1. Hold coumadin per INR and [id number] score 6 2. Continue Carvedilol 6.25 bid 3. Continue Diovan 80 qd 4. Continue ASA in conjunction with Coumadin 5. Continue Lipitor 40 qhs 6. Counselled smoking cessation and abstinence 7. Will consider outpatient DCCV for the above noted atrial arrhythmia after 3- 4 weeks of adequate A/C if able to arrange transportation 8. Thank you for consultative opportunity
[2017-04-03] MEDS ORDERED: CARVEDILOL 3.125 MG TABLET (FP) ONE (21:27)
[2017-04-03] MEDS ORDERED: ATORVASTATIN CA 80 MG TABLET (FP) ONE (21:28)
[2017-04-03] MEDS ORDERED: FAMOTIDINE 20 MG/50 ML IVPB 20 MG/50 ML MG IVPB ONE (21:29)
[2017-04-03] MEDS: ATORVASTATIN CA 40 MG TABLET (FP) PO SCH (21:35)
[2017-04-03] MEDS ORDERED: ATORVASTATIN CA 40 MG TABLET (FP) ONE (21:35)
[2017-04-03] MEDS: CARVEDILOL 6.25 MG TABLET (FP) PO SCH (21:36)
[2017-04-04 06:54] LABS: BASO % 0.2 % (0-2.0); EOS % 0.1 % (0-4.5); HEMATOCRIT 36.2 % (35.4-49); LYMPH % 15.3 % (8-40); MCH 30.7 pg (25.7-33.7); MCHC 33.1 g/dl (32.0-35.9); MEAN CELL VOLUME 92.6 fl (80-96); MEAN PLT VOLUME 9.1 fl (7.5-11.1); MONO % 6.5 % (3.8-10.2); NEUT % 77.9 % (42.8-82.8); PLATELET COUNT 214 K/MM3 (134-434); RBC 3.91 M/mm3 (4.00-5.60); RDW 15.2 % (11.9-15.9); WHITE BLOOD COUNT 11.8 K/mm3 (4.0-10.0)
[2017-04-04 07:22] LABS: CHLORIDE 110 mmol/L (98-107); POTASSIUM 4.8 mmol/L (3.5-5.1); SODIUM 143 mmol/L (136-145)
[2017-04-04 07:26] LABS: ALBUMIN 2.8 g/dl (3.4-5.0); ALK PHOS 76 U/L (45-117); ANION GAP 9 (8-16); BILIRUBIN,TOTAL 0.2 mg/dL (0.2-1.0); BLOOD UREA NITROGEN 21 mg/dL (7-18); CALCIUM 8.1 mg/dL (8.5-10.1); CO2 24 mmol/L (21-32); CREATININE 0.9 mg/dL (0.7-1.3); GLUCOSE,RANDOM 106 mg/dL (74-106); MAGNESIUM 1.9 mg/dL (1.8-2.4); PHOSPHOROUS 2.7 mg/dL (2.5-4.9); SGOT/AST 22 U/L (15-37); SGPT/ALT 22 U/L (12-78); TOT PROT 5.7 g/dl (6.4-8.2)
[2017-04-04] MEDS ORDERED: PT OWN MED DRAWER 7, Y5N ONE ×2 (08:33→18:55)
[2017-04-04 08:39] LABS: INR 6.19 (0.82-1.09)
--- NOTE | 2017-04-04 08:50 | PN ---
Progress Note (short form) - Note Progress Note: Chief Complaint: Events noted, notes reviewed, denies any chest pain or dyspnea , atrial flutter/atrial fibrillation persists rate controlled on A/C History of Present Illness: Seen and examined on telemetry. Events noted, notes reviewed, denies any chest pain or dyspnea, atrial flutter/atrial fibrillation persists rate controlled on A/C R&c coronary angiography performed 04/20/2016 revealed non-obstructive CAD, severe LV apical hypertrophic cardiomyopathy, mildly elevated right sided pressures/study is consistent with apical hypertrophy (spade-like) variant of hypertrophic cardiomyopathy - Current Medication List Current Medications Aspirin (Asa -) 81 mg PO DAILY [facility] Last Admin: 04/03/17 13:53 Dose: 81 mg Atorvastatin Calcium (Lipitor -) 40 mg PO HS [facility] Last Admin: 04/03/17 21:35 Dose: 40 mg Carvedilol (Coreg -) 6.25 mg PO BID [facility] Last Admin: 04/03/17 21:36 Dose: 6.25 mg Diphenhydramine HCl (Benadryl Injection -) 12.5 mg IVPUSH Q4H PRN PRN Reason: FOR ITCHING Famotidine (Pepcid 20 Mg/12 Ml Push) 20 mg in 12 mls @ 144 mls/hr IVPUSH BID [facility] Last Admin: 04/03/17 21:36 Dose: 144 mls/hr Sodium Chloride (Normal Saline -) 1,000 mls @ 42 mls/hr IV ASDIR [facility] Prednisone (Deltasone -) 60 mg PO DAILY [facility] Valsartan (Diovan -) 80 mg PO DAILY [facility] Last Admin: 04/03/17 13:53 Dose: 80 mg Review of Systems Constitutional: denies: Chills Cardiovascular: As noted above Respiratory: denies: Cough or Sputum Production Gastrointestinal: denies: Nausea, Vomiting, Diarrhea, Constipation or Abdominal Pain Musculoskeletal: No Symptoms Reported Neurological: denies: Dizziness or Headache - Objective Vital Signs: Last Vital Signs Temp Pulse Resp BP Pulse Ox 98.1 F 74 18 101/60 98 04/04/17 05:50 04/04/17 05:50 04/04/17 05:50 04/04/17 05:50 04/03/17 23:50 Intake & Output 04/01/17 04/02/17 04/03/17 04/04/17 23:59 23:59 23:59 23:59 Weight 230 lb 230 lb Neck: Supple Negative JVD No Bruit Cardiovascular: S1 S2 Irregularly Irregular Grade 2/6 Systolic Murmur Chest: Clear to A&P Bilaterally Gastrointestinal: Soft Benign Normal Bowel Sounds Ext: No Edema 1+ Bilateral femoral Pulses Labs: CBC, BMP 04/04/17 06:40 04/04/17 06:40 Assessment/Plan ASSESSMENT: 1. Food anaphylaxis resolved 2. History of bilateral SFA occlusion post thrombectomy, most likely embolic disease related to persistent atrial fibrillation with [id number] score of 6, history of poor compliance with therapy administration and medical F/U 3. CAD with evidence of demand ischemic injury, non obstructive CAD on R&LHc coronary angiogrpahy angina pectoris 4. LV diastolic dysfunction related to apical hypertrophic cardiomyopathy, chronic class I-II NYHA classification, compensated/euvolemic 5. Persistent atrial fibrillation [id number] score of 6 on Coumadin therapy, with supra-therapeutic INR 6. HTN 7. Poor compliance with medical therapy administration and medical F/U 8. Tobacco abuse PLAN: 1. Hold Coumadin as per INR and resume once INR is appropriate, therapy to be continued unless it is absolutely contraindicated considering his [id number] score of 6 2. Continue Carvedilol 3. Continue Diovan 4. Continue ASA in conjunction with Coumadin and close monitoring of CBC and INR 5. Continue Lipitor 6. Patient counselled smoking cessation and abstinence 7. Will consider outpatient DCCV for the above noted atrial arrhythmia after 3- 4 weeks of adequate A/C Discussed in detail with the patient Mabel Rolle MD
[2017-04-04] MEDS: VALSARTAN 80 MG TABLET (UD) PO SCH (09:34)
[2017-04-04] MEDS: predniSONE 20 MG TABLET (UD) PO SCH (09:34)
[2017-04-04] MEDS: ASPIRIN 81 MG CHEWABLE TABLETS PO SCH (09:34)
[2017-04-04] MEDS: CARVEDILOL 6.25 MG TABLET (FP) PO SCH ×2 (09:35→21:10)
[2017-04-04] MEDS: FAMOTIDINE IV 20 MG/12 ML VIAL IVPUSH SCH ×2 (09:39→21:10)
--- NOTE | 2017-04-04 15:37 | PN ---
Physical Exam: SUBJECTIVE: Patient seen and examined. No acute events overnight. Pt reports that his eyes are less swollen. He denies SOB, swollen tongue, pruritis, or any other subjective complaints. OBJECTIVE: Vital Signs Period Temp Pulse Resp BP Sys/Ariza Pulse Ox Last 24 Hr 97.5 F-98.1 F 64-74 18-18 101-139/60-87 98-99 GENERAL: elderly pleasant male, sitting up in NAD, AAOx3 HEENT: eyelids still swollen but decreased from yesterday, tongue and lips normal in size NECK: Trachea midline, full range of motion, supple. LUNGS: Breath sounds equal, clear to auscultation bilaterally, no wheezes, no crackles, no accessory muscle use. HEART: Regular rate and rhythm, S1, S2 without murmur, rub or gallop. ABDOMEN: Soft, nontender, nondistended, normoactive bowel sounds, no guarding, no rebound, no hepatosplenomegaly, no masses. EXTREMITIES: 2+ pulses, warm, well-perfused, no edema. NEUROLOGICAL: Cranial nerves II through XII grossly intact. Normal speech, gait not observed. PSYCH: Normal mood, normal affect. SKIN: Warm, dry, normal turgor, no rashes or lesions noted Laboratory Results - last 24 hr 04/04/17 04/04/17 04/04/17 05:47 06:40 06:40 WBC 11.8 H RBC 3.91 L Hgb 12.0 D Hct 36.2 MCV 92.6 MCH 30.7 MCHC 33.1 RDW 15.2 Plt Count 214 MPV 9.1 Neutrophils % 77.9 Lymphocytes % 15.3 D Monocytes % 6.5 D Eosinophils % 0.1 Basophils % 0.2 PT with INR INR Sodium 143 Potassium 4.8 Chloride 110 H Carbon Dioxide 24 Anion Gap 9 BUN 21 H D Creatinine 0.9 D Creat Clearance w eGFR > 60 POC Glucometer 113 Random Glucose 106 D Calcium 8.1 L Phosphorus 2.7 Magnesium 1.9 Total Bilirubin 0.2 AST 22 D ALT 22 D Alkaline Phosphatase 76 Total Protein 5.7 L Albumin 2.8 L 04/04/17 06:40 WBC RBC Hgb Hct MCV MCH MCHC RDW Plt Count MPV Neutrophils % Lymphocytes % Monocytes % Eosinophils % Basophils % PT with INR 70.00 H INR 6.19 H* Sodium Potassium Chloride Carbon Dioxide Anion Gap BUN Creatinine Creat Clearance w eGFR POC Glucometer Random Glucose Calcium Phosphorus Magnesium Total Bilirubin AST ALT Alkaline Phosphatase Total Protein Albumin Active Medications Generic Name Dose Route Start Last Admin Trade Name Enricoq PRN Reason Stop Dose Admin Aspirin 81 mg 04/03/17 10:00 04/04/17 09:34 Asa - PO 81 mg DAILY [facility] Administration Atorvastatin Calcium 40 mg 04/03/17 22:00 04/03/17 21:35 Lipitor - PO 40 mg HS [facility] Administration Carvedilol 6.25 mg 04/03/17 22:00 04/04/17 09:35 Coreg - PO 6.25 mg BID [facility] Administration Diphenhydramine HCl 12.5 mg 04/03/17 06:34 Benadryl Injection - IVPUSH Q4H PRN FOR ITCHING Famotidine 20 mg in 12 mls @ 144 mls/hr 04/03/17 10:00 04/04/17 09:39 Pepcid 20 Mg/12 Ml Push IVPUSH 144 mls/hr BID [facility] Administration Sodium Chloride 1,000 mls @ 42 mls/hr 04/03/17 08:00 04/04/17 08:06 Normal Saline - IV 42 mls/hr ASDIR [facility] Administration Prednisone 60 mg 04/04/17 10:00 04/04/17 09:34 Deltasone - PO 60 mg DAILY [facility] Administration Valsartan 80 mg 04/03/17 12:00 04/04/17 09:34 Diovan - PO 80 mg DAILY [facility] Administration ASSESSMENT/PLAN: 76M w/ hx of Paroxysmal Afib/Flutter (on Coumadin), DM, Ischemic Cardiomyopathy , and Alcohol Abuse who presented with SOB and swollen eyes after eating [place] food, found to have anaphylaxis, demand ischemia, and supratherapeutic INR. #Anaphylaxis- resolving. eyes less swollen, no SOB -likely from [place] food -continue Benadryl, Pepcid, Prednisone -Continue cardiac monitoring -discharge with prescriptions for epipen, zantac, 5 day supply of prednisone 40mg, and benadryl #demand ischemia -trops: 0.59 --> 0.66 --> 0.64 -cardio on board, recs appreciated. Will consider DCCV after 3-4 weeks of AC -continue ASA, carvedilol, valsartan, lipitor #Supratherapeutic INR -Possibly due to Chronic Alcohol Abuse -INR of 6.19 down from 7.37 -continue to hold coumadin until therapeutic INR -trend INR 4. A-Fib -Afib rate controlled #Diabetes Mellitus -BGMs -ISS #Alcohol Abuse -counselled #FEN/ppx - NS@42ml/hr - electrolytes wnl - sodium controlled diet - famotidine - pt has supratherapeutic INR on coumadin Code Status: Full Code -Jono Huynh MD PGY1 Visit type - Emergency Visit Emergency Visit: Yes ED Registration Date: 04/03/17 Care time: The patient presented to the Emergency Department on the above date and was hospitalized for further evaluation of their emergent condition. - New Patient This patient is new to me today: Yes Date on this admission: 04/04/17 - Critical Care Critical Care patient: No
[2017-04-04] MEDS: INSULIN SLIDING SCALE (NOVOLOG) 1 VIAL SQ SCH ×2 (16:55→21:15)
[2017-04-04] MEDS: ATORVASTATIN CA 40 MG TABLET (FP) PO SCH (21:10)
--- NOTE | 2017-04-04 23:22 | PN ---
Teaching Attending Note Name of Resident: Jono Huynh ATTENDING PHYSICIAN STATEMENT I saw and evaluated the patient. I reviewed the resident's note and discussed the case with the resident. I agree with the resident's findings and plan as documented. SUBJECTIVE: Patient feels better today. eyes are better. OBJECTIVE: Vital Signs Temperature 98.1 F 04/04/17 19:57 Pulse Rate 93 H 04/04/17 19:57 Respiratory Rate 18 04/04/17 19:58 Blood Pressure 117/68 04/04/17 19:57 O2 Sat by Pulse Oximetry (%) 99 04/04/17 19:58 CBCD WBC 11.8 K/mm3 (4.0-10.0) H 04/04/17 06:40 RBC 3.91 M/mm3 (4.00-5.60) L 04/04/17 06:40 Hgb 12.0 GM/dL (11.7-16.9) D 04/04/17 06:40 Hct 36.2 % (35.4-49) 04/04/17 06:40 MCV 92.6 fl (80-96) 04/04/17 06:40 MCHC 33.1 g/dl (32.0-35.9) 04/04/17 06:40 RDW 15.2 % (11.9-15.9) 04/04/17 06:40 Plt Count 214 K/MM3 (134-434) 04/04/17 06:40 MPV 9.1 fl (7.5-11.1) 04/04/17 06:40 CMP Sodium 143 mmol/L (136-145) 04/04/17 06:40 Potassium 4.8 mmol/L (3.5-5.1) 04/04/17 06:40 Chloride 110 mmol/L (98-107) H 04/04/17 06:40 Carbon Dioxide 24 mmol/L (21-32) 04/04/17 06:40 Anion Gap 9 (8-16) 04/04/17 06:40 BUN 21 mg/dL (7-18) H D 04/04/17 06:40 Creatinine 0.9 mg/dL (0.7-1.3) D 04/04/17 06:40 Creat Clearance w eGFR > 60 (>60) 04/04/17 06:40 Random Glucose 106 mg/dL (74-106) D 04/04/17 06:40 Calcium 8.1 mg/dL (8.5-10.1) L 04/04/17 06:40 Total Bilirubin 0.2 mg/dL (0.2-1.0) 04/04/17 06:40 AST 22 U/L (15-37) D 04/04/17 06:40 ALT 22 U/L (12-78) D 04/04/17 06:40 Alkaline Phosphatase 76 U/L (45-117) 04/04/17 06:40 Total Protein 5.7 g/dl (6.4-8.2) L 04/04/17 06:40 Albumin 2.8 g/dl (3.4-5.0) L 04/04/17 06:40 CARDIAC ENZYMES Troponin I 0.64 ng/ml (0.00-0.05) H* 04/03/17 08:15 Current Medications Generic Name Dose Route Start Last Admin Trade Name Freq PRN Reason Stop Dose Admin Aspirin 81 mg 04/03/17 10:00 04/04/17 09:34 Asa - PO 81 mg DAILY [facility] Administration Atorvastatin Calcium 40 mg 04/03/17 22:00 04/04/17 21:10 Lipitor - PO 40 mg HS [facility] Administration Carvedilol 6.25 mg 04/03/17 22:00 04/04/17 21:10 Coreg - PO 6.25 mg BID [facility] Administration Diphenhydramine HCl 12.5 mg 04/03/17 06:34 Benadryl Injection - IVPUSH Q4H PRN FOR ITCHING Famotidine 20 mg in 12 mls @ 144 mls/hr 04/03/17 10:00 04/04/17 21:10 Pepcid 20 Mg/12 Ml Push IVPUSH 144 mls/hr BID [facility] Administration Sodium Chloride 1,000 mls @ 42 mls/hr 04/03/17 08:00 04/04/17 08:06 Normal Saline - IV 42 mls/hr ASDIR [facility] Administration Insulin Aspart 1 vial 04/04/17 16:30 04/04/17 21:15 Novolog Vial Sliding Scale - SQ 2 units ACHS [facility] Administration Protocol Prednisone 60 mg 04/04/17 10:00 04/04/17 09:34 Deltasone - PO 60 mg DAILY [facility] Administration Valsartan 80 mg 04/03/17 12:00 04/04/17 09:34 Diovan - PO 80 mg DAILY [facility] Administration Home Medications Medication Instructions Recorded Aspirin Coated [Ecotrin -] 81 mg PO DAILY #30 tab 12/13/16 Atorvastatin Ca [Lipitor] 40 mg PO HS #30 tablet 12/13/16 Carvedilol [Coreg -] 6.25 mg PO BID #60 tablet 12/13/16 Valsartan [Diovan] 80 mg PO DAILY #30 tablet 12/13/16 Warfarin Sodium [Jantoven] 6 mg PO DAILY 01/30/17 Laboratory Tests 04/02/17 04/02/17 04/03/17 20:42 20:42 08:15 INR 7.33 H* D 7.37 H* PTT (Actin FS) 46.6 H 04/04/17 06:40 INR 6.19 H* PTT (Actin FS) PE: eyes are less swollen today rest PE per resident's note ASSESSMENT AND PLAN: This is a 76 year old man with a history of hypertrophic cardiomyopathy, non- obstructive CAD, chronic systolic/diastolic HF, HTN, PAF who presented to the ER with right leg pain #Anaphylaxis- resolving. acute reaction post eating [place] food can't r/o food allergy, follow with Coffee Taster upon discharge, to have allergy testing. on steroid, benadryl, and pepcid. eyes less swollen, no SOB UPON discharge please give prescriptions for Epipen, zantac, prednisone 40mg( 5 day supply), and benadryl #demand ischemia:trops: 0.59 --> 0.66 --> 0.64, cardio consult appreciated. Will consider DCCV after 3-4 weeks of AC continue ASA, carvedilol, valsartan, lipitor #Supratherapeutic INR continue to hold coumadin 7.37-->6.19, daily PT/INR # A-Fib rate controlled on coumadin with supratherapeutic INR , will trend it down #Diabetes Mellitus on BGMs, ISS #Alcohol Abuse counselled DVT Px: Coumadin supratherapeutic INR
[2017-04-05] MEDS: INSULIN SLIDING SCALE (NOVOLOG) 1 VIAL SQ SCH ×2 (06:32→11:55)
[2017-04-05 07:49] LABS: INR 3.27 (0.82-1.09); PROTHROMBIN TIME (PATIENT) 36.9 SEC (9.98-11.88)
[2017-04-05 07:52] LABS: HEMATOCRIT 40.5 % (35.4-49); HEMOGLOBIN 12.9 GM/dL (11.7-16.9); MCH 29.7 pg (25.7-33.7); MCHC 31.9 g/dl (32.0-35.9); MEAN CELL VOLUME 92.9 fl (80-96); PLATELET COUNT 229 K/MM3 (134-434); RBC 4.36 M/mm3 (4.00-5.60); RDW 15.2 % (11.9-15.9); WHITE BLOOD COUNT 12.3 K/mm3 (4.0-10.0)
[2017-04-05 08:12] LABS: ANION GAP 10 (8-16); BLOOD UREA NITROGEN 24 mg/dL (7-18); CALCIUM 8.3 mg/dL (8.5-10.1); CHLORIDE 109 mmol/L (98-107); CO2 25 mmol/L (21-32); GLUCOSE,RANDOM 97 mg/dL (74-106); POTASSIUM 4.7 mmol/L (3.5-5.1); SODIUM 144 mmol/L (136-145)
[2017-04-05] MEDS ORDERED: PT OWN MED DRAWER 7, Y5N ONE (09:36)
[2017-04-05] MEDS: ASPIRIN 81 MG CHEWABLE TABLETS PO SCH (09:41)
[2017-04-05] MEDS: VALSARTAN 80 MG TABLET (UD) PO SCH (09:41)
[2017-04-05] MEDS: CARVEDILOL 6.25 MG TABLET (FP) PO SCH (09:41)
[2017-04-05] MEDS: predniSONE 20 MG TABLET (UD) PO SCH (09:42)
--- NOTE | 2017-04-05 10:09 | PN ---
Progress Note, Physician History of Present Illness: Facial swelling resolved, remains in rate-controlled afib. INR decreasing. - Current Medication List Current Medications: Active Medications Aspirin (Asa -) 81 mg PO DAILY [facility] Last Admin: 04/05/17 09:41 Dose: 81 mg Atorvastatin Calcium (Lipitor -) 40 mg PO HS [facility] Last Admin: 04/04/17 21:10 Dose: 40 mg Carvedilol (Coreg -) 6.25 mg PO BID [facility] Last Admin: 04/05/17 09:41 Dose: 6.25 mg Diphenhydramine HCl (Benadryl Injection -) 12.5 mg IVPUSH Q4H PRN PRN Reason: FOR ITCHING Famotidine (Pepcid 20 Mg/12 Ml Push) 20 mg in 12 mls @ 144 mls/hr IVPUSH BID [facility] Last Admin: 04/04/17 21:10 Dose: 144 mls/hr Sodium Chloride (Normal Saline -) 1,000 mls @ 42 mls/hr IV ASDIR [facility] Last Admin: 04/04/17 08:06 Dose: 42 mls/hr Insulin Aspart (Novolog Vial Sliding Scale -) 1 vial SQ ACHS [facility] PRN Reason: Protocol Last Admin: 04/05/17 06:32 Dose: Not Given Prednisone (Deltasone -) 60 mg PO DAILY [facility] Last Admin: 04/05/17 09:42 Dose: 60 mg Valsartan (Diovan -) 80 mg PO DAILY [facility] Last Admin: 04/05/17 09:41 Dose: 80 mg - Objective Vital Signs: Vital Signs Temperature 97.7 F 04/05/17 06:00 Pulse Rate 69 04/05/17 06:00 Respiratory Rate 19 04/05/17 06:00 Blood Pressure 134/74 04/05/17 06:00 O2 Sat by Pulse Oximetry (%) 99 04/05/17 00:00 Constitutional: Yes: No Distress, Calm Neck: Yes: Supple Cardiovascular: Yes: Pulse Irregular Respiratory: Yes: Regular, CTA Bilaterally Gastrointestinal: Yes: Normal Bowel Sounds, Soft Edema: No Labs: CBC, BMP 04/05/17 05:05 04/05/17 05:05 INR, PTT INR 3.27 (0.82-1.09) H D 04/05/17 05:05 - ....Imaging EKG: Report Reviewed (Tele: Rate-controlled afib) Problem List - Problems (1) Demand ischemia Code(s): I24.8 - OTHER FORMS OF ACUTE ISCHEMIC HEART DISEASE (2) Anaphylaxis Code(s): T78.2XXA - ANAPHYLACTIC SHOCK, UNSPECIFIED, INITIAL ENCOUNTER Qualifiers: Encounter type: initial encounter Qualified Code(s): T78.2XXA - Anaphylactic shock, unspecified, initial encounter (3) Chronic thromboembolic disease Code(s): I74.9 - EMBOLISM AND THROMBOSIS OF UNSPECIFIED ARTERY (4) Coronary artery disease Code(s): I25.10 - ATHSCL HEART DISEASE OF [place] CORONARY ARTERY W/O ANG PCTRS Qualifiers: Coronary Disease-Associated Artery/Lesion type: [place] artery [place] vs. transplanted heart: [place] heart Associated angina: without angina Qualified Code(s): I25.10 - Atherosclerotic heart disease of [place] coronary artery without angina pectoris (5) HTN (hypertension) Code(s): I10 - ESSENTIAL (PRIMARY) HYPERTENSION Qualifiers: Hypertension type: essential hypertension Qualified Code(s): I10 - Essential (primary) hypertension (6) Hypertrophic cardiomyopathy Code(s): I42.2 - OTHER HYPERTROPHIC CARDIOMYOPATHY (7) Peripheral arterial disease Code(s): I73.9 - PERIPHERAL VASCULAR DISEASE, UNSPECIFIED (8) Anticoagulant long-term use Code(s): Z79.01 - FORMS DESIGNER (CURRENT) USE OF ANTICOAGULANTS (9) Persistent atrial fibrillation Code(s): I48.1 - PERSISTENT ATRIAL FIBRILLATION (10) Diastolic dysfunction without heart failure Code(s): I51.9 - HEART DISEASE, UNSPECIFIED Assessment/Plan R&LHc at [facility] 04/20/2016 showing nonobstructive CAD, severe LV apical hypertrophic cardiomyopathy, mildly elevated right sided pressures, Mynx deployed right 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 1. Food anaphylaxis resolved 2. History of bilateral SFA occlusion post thrombectomy, most likely embolic disease related to persistent atrial fibrillation with [id number] score of 6, history of poor compliance with therapy administration and medical F/U 3. CAD with evidence of demand ischemic injury, non obstructive CAD on R&LHc coronary angiogrpahy angina pectoris 4. LV diastolic dysfunction related to apical hypertrophic cardiomyopathy, chronic class I-II NYHA classification, compensated/euvolemic 5. Persistent atrial fibrillation [id number] score of 6 on Coumadin therapy, with supratherapeutic INR 6. HTN 7. Poor compliance with medical therapy administration and medical F/U 8. Tobacco abuse PLAN: 1. Resume coumadin tomorrow per INR 2-3 given [id number] score 6 2. Continue Carvedilol 6.25 bid 3. Continue Diovan 80 qd 4. Continue ASA 81 qd in conjunction with Coumadin 5. Continue Lipitor 40 qhs 6. Counselled smoking cessation and abstinence 7. Will consider outpatient DCCV for the above noted atrial arrhythmia after 3- 4 weeks of adequate A/C 8. May d/c with f/u with Dr. Sam [phone]
[2017-04-05 10:58] VITALS: BP 117/72; PULSE 76; TEMP 97.6
[2017-04-05] MEDS ORDERED: diphenhydrAMINE HCL 25 MG CAPSULE (FP) PO PRN (11:46)
[2017-04-05] MEDS: FAMOTIDINE IV 20 MG/12 ML VIAL IVPUSH SCH (11:55)
--- NOTE | 2017-04-05 15:59 | PN ---
Teaching Attending Note Name of Resident: Jono Huynh ATTENDING PHYSICIAN STATEMENT I saw and evaluated the patient. I reviewed the resident's note and discussed the case with the resident. I agree with the resident's findings and plan as documented. SUBJECTIVE: No fever or chills, denies SOB or swelling in mouth or throat. OBJECTIVE: NAD CV: irreg irreg Lung s: ACTB ext: no edema HEENT: no facial swelling , no edema in oropharynx, tongue or ubvula ASSESSMENT AND PLAN: Pleasant 76 y/o man with h/o CAD, chronic heart failure, , hypertrophic cardiomyopathy , HTN, A fib who presented with swelling in face and was found to have an allergic reaction 1- Allergic reaction possible angioedema vs anaphylaxis . possible reaction to ARB. dc valsartan cont steroids , H1, and H2 blockers x 1 more week provide with epi-pen allergy testing as out pt pt was instructed not to take ARB or ACEI as outpt 2- A fib : - cont AC - possible cardioversion as out pt - INR 3.2, will resume coumadin at a lower dose tonight . PCP called and confirmed that pt dose was increased to 9 mg from 6 . he was advised to take 6 q PM and INR in 2 days ( Monday , ) to be faxed to PC P - cont coreg 3- CAD , with trop leak: cont ASa and BB 4- HTN: cont BB and start norvasc in place of Valsartan 5- dc home . f/u with card, PCP , director learning.
[2017-04-05] MEDS ORDERED: WARFARIN NA 2 MG TABLET (UD) PO SCH (18:00)
--- NOTE | 2017-04-06 06:35 | DS ---
Physical Exam: SUBJECTIVE: Patient seen and examined No acute events overnight. Pt reports that his eyes are no longer swollen. He denies SOB, swollen tongue, pruritis, or any other subjective complaints. OBJECTIVE: Vital Signs Period Temp Pulse Resp BP Sys/Ariza Pulse Ox Last 24 Hr 97.6 F 76 18-19 117/72 99 PHYSICAL EXAM GENERAL: elderly pleasant male, sitting up in NAD, AAOx3 HEENT: eyelid swelling almost completely resolved, tongue and lips normal in size NECK: Trachea midline, full range of motion, supple. LUNGS: mild expiratory rhonchi HEART: Regular rate and rhythm, S1, S2 without murmur, rub or gallop. ABDOMEN: Soft, nontender, nondistended, normoactive bowel sounds, no guarding, no rebound, no hepatosplenomegaly, no masses. EXTREMITIES: 2+ pulses, warm, well-perfused, no edema. NEUROLOGICAL: Cranial nerves II through XII grossly intact. Normal speech, gait not observed. PSYCH: Normal mood, normal affect. SKIN: Warm, dry, normal turgor, no rashes or lesions noted LABS Laboratory Results - last 24 hr 04/05/17 04/05/17 04/05/17 05:05 05:05 05:05 WBC 12.3 H RBC 4.36 Hgb 12.9 Hct 40.5 MCV 92.9 MCH 29.7 MCHC 31.9 L RDW 15.2 Plt Count 229 MPV 9.0 PT with INR 36.90 H INR 3.27 H D Sodium 144 Potassium 4.7 Chloride 109 H Carbon Dioxide 25 Anion Gap 10 BUN 24 H Creatinine 1.0 POC Glucometer Random Glucose 97 Calcium 8.3 L 04/05/17 11:29 WBC RBC Hgb Hct MCV MCH MCHC RDW Plt Count MPV PT with INR INR Sodium Potassium Chloride Carbon Dioxide Anion Gap BUN Creatinine POC Glucometer 98 Random Glucose Calcium HOSPITAL COURSE: Date of Admission:04/03/17 Date of Discharge: 04/06/17 76M w/ hx of Paroxysmal Afib/Flutter (on Coumadin), DM, Ischemic Cardiomyopathy , and Alcohol Abuse who presented with SOB and swollen eyes after eating tajik food, found to have anaphylaxis, demand ischemia, and supratherapeutic INR. His anaphylaxis was treated with benadryl, Pepcid, Prednisone, and his symptoms resolved. His troponins peaked at 0.66. He was seen by cardio who stated that they will consider DCCV after 3-4 weeks of AC. Pt's coumadin dose was held and restarted at 6mg once INR came down. Today, pt has normal vitals, no subjective complaints, markedly improved physical exam, and is ready for discharge home. Pt instructed to continue taking benadryl, ranitidine, and prednisone for 1 more week, was given an epi- pen for the future, and told to f/u with an welfare aide. Pt instructed to avoid tajik food, and to stop taking ACEI and ARBs in future. Pt restarted on coumadin 6mg, and given a script for INR check in 2 days and told to f/u with PCP. Pt also given a glucometer and lancets, told to check his sugar levels after he finishes his prednisone, and told to go back to his PCP if his sugar levels are elevated. -Jono Huynh MD PGY1 Minutes to complete discharge: 37 Discharge Summary Reason For Visit: ANAPHYLAXIS, SC, PULMONARY VENOUS CONGES Condition: Improved - Instructions Diet, Activity, Other Instructions: You presented to the hospital with shortness of breath and swollen eyes after eating tajik food and were found to have anaphylaxis (severe allergic reaction ) and a very high INR (coumadin level). You were treated with prednisone, famotidine, and benadryl, and your eye swelling and breathing improved. Your coumadin medication was held, and your INR has decreased to an almost normal level. Continue taking all previous medications except: 1. Stop taking valsartan. Do not take any aniket inhibitors or angiotensin receptor blockers including valsartan, losartan, lisinopril, and meds from the same family 2. Start taking norvasc 10mg once a day for your hypertension 3. Continue taking benadryl 25mg twice a day for 7 days for your anaphylaxis 4. Continue taking ranitidine 150mg twice a day for 7 days for your anaphylaxis 5. Continue taking prednisone 60mg once a day for 7 days for your anaphylaxis. After that, take 40mg once a day for 3 days followed by 20mg once a day for 3 days. 6. Use an epipen if you develop any similar allergic symptoms in the future. 7. Stop taking 9mg of coumadin. Start taking 6mg of coumadin tonight . Please get your INR checked in 2 days and fax results to your PCP, Dr. Shelby. your dose might need to be changed depending on next I NR Followups: 1. Please follow up with your PCP within one week. 2. Please follow up with an welfare aide, Dr. Del Castillo, to evaluate you for any specific allergies. Avoid: Romansh food as it might have caused your anaphylactic reaction. If you develop any shortness of breath, chest pain, or any other concerning symptoms, return to the ED. Referrals: Liat Del Castillo MD [Staff Physician] - Eliel Sam MD [Staff Physician] - Kesha Aguila MD [Primary Care Provider] - Disposition: HOME - Home Medications Comprehensive Discharge Medication List: Ambulatory Orders Aspirin Coated [Ecotrin -] 81 mg PO DAILY #30 tab 12/13/16 Atorvastatin Ca [Lipitor] 40 mg PO HS #30 tablet 12/13/16 Carvedilol [Coreg -] 6.25 mg PO BID #60 tablet 12/13/16 Amlodipine Besylate [Norvasc -] 10 mg PO DAILY #30 tablet 04/05/17 Diphenhydramine HCl [Benadryl Capsule -] 25 mg PO Q12H PRN #14 capsule 04/05/17 Epinephrine [Epipen] 0.3 mg IJ ONCE #1 auto.injct 04/05/17 Lancets 1 each MC TID #20 each 04/05/17 Miscellaneous Drug Not In Syst [Outpatient Lab Test] 1 each MC ASDIR #1 misc Miscellaneous Medical Supply [Glucometer Device] 1 each SQ ASDIR #1 kit Miscellaneous Medical Supply [Glucometer Test Strips #50] 1 each SQ ASDIR #1 box 04/05/17 Prednisone 10 mg PO DAILY #17 tablet 04/05/17 Ranitidine HCl 150 mg PO BID #14 tablet 04/05/17 Warfarin Sodium [Coumadin] 6 mg PO DAILY #14 tablet 04/05/17 This patient is new to me today: No Emergency Visit: Yes ED Registration Date: 04/03/17 Care time: The patient presented to the Emergency Department on the above date and was hospitalized for further evaluation of their emergent condition. Critical Care patient: No - Discharge Referral Referred to [facility] Med P.C.: No
[2017-04-06] MEDS ORDERED: amLODIPine BESYLATE 10 MG TABLET (FP) PO SCH (10:00)
== END 2017-04-05 16:39 | disposition home or self-care (01) | DRG 916 ==
LOC: JER 19:40 → JERBED 22:53 → UNDOADMOB 23:00 → OBSVTOIN 04-03 11:58 → J4W 04-03 23:43
PROVIDERS: ADMIT Internal Medicine; ATTEND Internal Medicine
DX: T78.09XA Anaphylactic reaction due to other food products, initial encounter (principal); I48.92 Unspecified atrial flutter; I48.1 Persistent atrial fibrillation; I24.8 Other forms of acute ischemic heart disease; I50.32 Chronic diastolic (congestive) heart failure; E11.9 Type 2 diabetes mellitus without complications; I25.5 Ischemic cardiomyopathy; I25.10 Atherosclerotic heart disease of native coronary artery without angina pectoris; F10.10 Alcohol abuse, uncomplicated; I11.0 Hypertensive heart disease with heart failure; R79.1 Abnormal coagulation profile; F17.210 Nicotine dependence, cigarettes, uncomplicated
CPT/HCPCS: 36415; 71010-TC; 80048; 80053; 80061; 80307; 83036; 83721; 83735; 83880; 84100; 84484; 85025; 85027; 85610; 85730; 86850; 86900; 86901; 93005; 93010; 99285-25; G0378

== ENCOUNTER 2017-09-01 20:48 | Inpatient (IN) | payer OTHER ==
[2017-09-01] MEDS ORDERED: morphine CARPU-JECT 4 MG/1 ML DISP.SYRIN IVPUSH ONE (22:34)
--- NOTE | 2017-09-01 22:57 | PDOC ---
History of Present Illness - General History Source: Patient Exam Limitations: No Limitations - History of Present Illness Initial Comments: 09/01/17 23:51 The patient is a 77 year old male, with a significant PMH of alcohol abuse, NSTEMI, AF on coumadin, HTN, CAD, CHF, HOCM, and chronic thromboembolic disease who presents to the emergency department with pain to the left side of his body for the past three days. The patient reports the pain radiates from his toes on his left foot up to his left underarm. The patient is complaining of associated numbness and tingling to his left toes. The patient endorses difficulty ambulating secondary to his pain. Patient is argumentative and easily aggitated during examination. The patient denies chest pain, shortness of breath, headache and dizziness. Denies fever, chills, nausea, vomit, diarrhea and constipation. Denies dysuria, frequency, urgency and hematuria. Allergies: NKA Past surgical: s/p cardiac cath @ [facility] (04/2016) Social: (+) nicotine - 10 cigarettes daily, (+) alcohol 2-3 pints hard liquor monthly; (-) marijuana/cocaine/heroin <Oly Nieves - Last Filed: 09/02/17 04:03> <Bebe Gillespie - Last Filed: 09/02/17 07:52> - General Chief Complaint: Pain Stated Complaint: WEAKNESS Time Seen by Provider: 09/01/17 22:09 Past History <Oly Nieves - Last Filed: 09/02/17 04:03> - Past Medical History Anemia: No Asthma: No Cancer: No Cardiac Disorders: Yes (PAROXYSMAL A.FIBRILLATION/A.FLUTTER) CVA: No COPD: No CHF: No Dementia: No Diabetes: Yes (BORDERLINE) GI Disorders: No Disorders: No HTN: Yes (BORDERLINE) Hypercholesterolemia: Yes Liver Disease: No Seizures: No Thyroid Disease: No - Surgical History Abdominal Surgery: Yes (HERNIA REPAIR) Cardiac Surgery: Yes (CARDIAC CATHERIZATION/CORONARY ANGIOGRAPHY) Cholecystectomy: No Lung Surgery: No Neurologic Surgery: No Orthopedic Surgery: No - Suicide/Smoking/Psychosocial Hx Smoking History: Never smoked Have you smoked in the past 12 months: No Number of Cigarettes Smoked Daily: 10 If you are a former smoker, when did you quit?: 04.06.16 Information on smoking cessation initiated: No Hx Alcohol Use: No Drug/Substance Use Hx: No Substance Use Type: None Hx Substance Use Treatment: No <Bebe Gillespie - Last Filed: 09/02/17 07:52> - Past Medical History Allergies/Adverse Reactions: Allergies Allergy/AdvReac Type Severity Reaction Status Date / Time valsartan Allergy Severe Verified 09/01/17 21:18 Home Medications: Ambulatory Orders Aspirin [Aspirin EC] 81 mg PO DAILY 09/01/17 Atorvastatin Calcium 40 mg PO DAILY 09/01/17 Carvedilol 6.25 mg PO DAILY 09/01/17 Warfarin Sodium 6 mg PO DAILY 09/01/17 Review of Systems - Review of Systems Able to Perform ROS?: Yes Comments:: 09/01/17 23:52 See HPI. All other systems reviewed and unremarkable. <Oly Nieves - Last Filed: 09/02/17 04:03> *Physical Exam - Vital Signs Last Vital Signs Temp Pulse Resp BP Pulse Ox 97.8 F 82 18 104/60 97 09/01/17 21:14 09/01/17 21:14 09/01/17 21:14 09/01/17 21:14 09/01/17 21:14 - Physical Exam Comments: 09/02/17 04:03 " General Physical Exam: NAD EOMI, ESTEPHANIE MMM, OP WNL NCAT, no midline cervical tenderness RRR, nl s1/s2, no m/r/g (+) Diffuse crackles. no w/r/r Soft, NTND (+) LLE cooler than right. (+) FROM of ankles and toes (+) 1+ pitting edema of the BL lower extremities. WWP, no rash Neuro grossly intact, gait WNL, moving all 4 A&O x 3, mood/affect WNL. " <Oly Nieves - Last Filed: 09/02/17 04:03> - Vital Signs Last Vital Signs Temp Pulse Resp BP Pulse Ox 97.8 F 82 18 104/60 97 09/01/17 21:14 09/01/17 21:14 09/01/17 21:14 09/01/17 21:14 09/01/17 21:14 <Bebe Gillespie - Last Filed: 09/02/17 07:52> ED Treatment Course - LABORATORY CBC & Chemistry Diagram: 09/01/17 22:50 09/01/17 22:50 - ADDITIONAL ORDERS Additional order review: Laboratory Results 09/01/17 09/01/17 09/01/17 22:50 22:50 22:50 PT with INR 44.90 H INR 3.97 H Sodium 139 Potassium 4.8 Chloride 104 Carbon Dioxide 26 Anion Gap 9 BUN 16 D Creatinine 1.7 H D Random Glucose 92 Calcium 8.0 L Urine Color Yellow Urine Appearance Clear Urine pH 7.0 D Ur Specific [place] 1.019 Urine Protein 2+ H Urine Glucose (UA) Negative Urine Ketones Negative Urine Blood Negative Urine Nitrite Negative Urine Bilirubin Negative Urine Urobilinogen 4.0 e.u/dl Ur Leukocyte Esterase Negative Urine WBC (Auto) 2 Urine RBC (Auto) 5 Urine Mucus Rare 09/01/17 22:50 RBC 4.01 MCV 93.4 MCHC 33.1 RDW 15.0 MPV 8.7 Neutrophils % 76.0 Lymphocytes % 11.3 D Monocytes % 12.0 H D Eosinophils % 0.2 D Basophils % 0.5 - Medications Given in the ED: ED Medications Discontinued Medications Generic Name Dose Route Start Last Admin Trade Name Freq PRN Reason Stop Dose Admin Morphine Sulfate 4 mg 09/01/17 22:34 09/01/17 23:09 Morphine Injection - IVPUSH 09/01/17 22:35 4 mg ONCE ONE Administration <Oly Nieves - Last Filed: 09/02/17 04:03> - LABORATORY CBC & Chemistry Diagram: 09/01/17 22:50 09/01/17 22:50 - RADIOLOGY Radiology Studies Ordered: Category Date Time Status CHEST PA & LAT [RAD] Stat Radiology 09/01/17 22:33 Ordered <Bebe Gillespie - Last Filed: 09/02/17 07:52> Medical Decision Making - Medical Decision Making 09/02/17 02:07 77yoM hx of etoh abuse, ICM, NSTEMI, prior artieral thromboembolic disease to lower extremities presnets w/ L side pain from axilla to toes, tingling to toes on L. Prior presentations always w/ elevated troponins. - labs - ekg - pain control -reeval Laboratory Tests 09/01/17 09/01/17 09/01/17 22:50 22:50 22:50 WBC 10.8 H Hgb 12.4 Hct 37.5 Plt Count 320 D INR 3.97 H Creatinine 1.7 H D Calcium 8.0 L Troponin I B-Natriuretic Peptide Alcohol, Quantitative 09/01/17 09/01/17 22:50 22:50 WBC Hgb Hct Plt Count INR Creatinine Calcium Troponin I 0.37 H D B-Natriuretic Peptide 7675.8 H Alcohol, Quantitative < 5.0 Troponin lower than usual. BNP higher than usual Cr c/w MELITA. Pt w/ cardiac stretch and MELITA. plan for admission pt is still pending UA, CXR. 09/02/17 02:09 <Bebe Gillespie - Last Filed: 09/02/17 07:52> *DC/Admit/Observation/Transfer - Attestations Scribe Attestion: 09/01/17 23:52 Documentation prepared by Oly Nieves, acting as medical physicist for Bebe Gillespie MD. <Oly Nieves - Last Filed: 09/02/17 04:03> - Discharge Dispostion Decision to Admit order: Yes <Bebe Gillespie - Last Filed: 09/02/17 07:52> - Discharge Dispostion Condition at time of disposition: Fair - Referrals Referrals: ON STAFF,NOT [Primary Care Provider] - - Patient Instructions - Post Discharge Activity
[2017-09-01] MEDS ORDERED: morphine SULFATE 4 MG/ML VIAL ONE (23:04)
[2017-09-01 23:05] LABS: BASO % 0.5 % (0-2.0); EOS % 0.2 % (0-4.5); HEMATOCRIT 37.5 % (35.4-49); HEMOGLOBIN 12.4 GM/dL (11.7-16.9); LYMPH % 11.3 % (8-40); MCH 30.9 pg (25.7-33.7); MCHC 33.1 g/dl (32.0-35.9); MEAN CELL VOLUME 93.4 fl (80-96); MEAN PLT VOLUME 8.7 fl (7.5-11.1); PLATELET COUNT 320 K/MM3 (134-434); RBC 4.01 M/mm3 (4.00-5.60); WHITE BLOOD COUNT 10.8 K/mm3 (4.0-10.0)
[2017-09-01 23:19] LABS: URINE APPEARANCE CLEAR; URINE BILIRUBIN NEGATIVE (<2.0 mg/dL); URINE BLOOD NEGATIVE (NEGATIVE); URINE COLOR YELLOW; URINE GLUCOSE (UA) NEGATIVE (NEGATIVE); URINE KETONE NEGATIVE (NEGATIVE); URINE LEUK ESTERASE NEGATIVE (NEGATIVE); URINE NITRITE NEGATIVE (NEGATIVE); URINE UROBILINOGEN 4.0 E.U/dl mg/dL (0.2-1.0)
[2017-09-01 23:25] LABS: INR 3.97 (0.82-1.09); PROTHROMBIN TIME (PATIENT) 44.9 SEC (9.7-13.0); URINE PROTEIN 2+ (NEGATIVE)
[2017-09-01 23:30] LABS: ANION GAP 9 (8-16); BLOOD UREA NITROGEN 16 mg/dL (7-18); CHLORIDE 104 mmol/L (98-107); CO2 26 mmol/L (21-32); CREATININE 1.7 mg/dL (0.7-1.3); GLUCOSE,RANDOM 92 mg/dL (74-106); SODIUM 139 mmol/L (136-145)
[2017-09-01 23:33] LABS: POTASSIUM 4.8 mmol/L (3.5-5.1)
[2017-09-01 23:34] LABS: URINE MUCUS RARE
[2017-09-01 23:57] LABS: N-TERMINAL BNP 7675.8 pg/ml (5-450)
[2017-09-02] MEDS ORDERED: FUROSEMIDE 40 MG/4 ML INJECTABLE VIAL IVPUSH ONE (04:03)
[2017-09-02] MEDS ORDERED: FUROSEMIDE 40 MG/4 ML INJECTABLE VIAL ONE (04:15)
[2017-09-02 05:06] LABS: N-TERMINAL BNP 8969.4 pg/ml (5-450)
--- NOTE | 2017-09-02 05:57 | HP ---
CHIEF COMPLAINT: Left foot pain PCP: Not on Staff HISTORY OF PRESENT ILLNESS: Patient is a 77 year old male with a PMHx of Alcohol abuse, HTN, CAD, ischemic cardiomyopathy, Afib on coumadin, PAD who presented complaining of severe foot pain associated with leg swelling that started three days ago and significantly increased last evening to the point he was unable to tolerate the pain. Patient reports a constant 10/10 radiating to his toes with intense pain preventing him from walking. Patient otherwise denies chest pain, palpitations, shortness of breath, fever, chills, hematuria, dysuria, headache. ER course was notable for: Patient in the ED found to have MELITA of 1.7 from baseline 1.0 Recent Travel: Denies PAST MEDICAL HISTORY: Alcohol abuse, HTN, CAD, ischemic cardiomyopathy, Afib on coumadin, PVD PAST SURGICAL HISTORY: s/p cardiac cath @ [facility] (04/2016) Social History: Smokin cigarettes/day Alcohol: 2-3 pints of hard liquor Drugs: Denies Family History: Non-Contributory Allergies: valsartan Allergy (Severe, Verified 09/01/17 21:18) HOME MEDICATIONS: Home Medications Medication Instructions Recorded Aspirin [Aspirin EC] 81 mg PO DAILY 09/01/17 Atorvastatin Calcium 40 mg PO DAILY 09/01/17 Carvedilol 6.25 mg PO DAILY 09/01/17 Warfarin Sodium 6 mg PO DAILY 09/01/17 REVIEW OF SYSTEMS CONSTITUTIONAL: Absent: fever, chills, diaphoresis, generalized weakness, malaise, loss of appetite, weight change HEENT: Absent: rhinorrhea, nasal congestion, throat pain, throat swelling, difficulty swallowing, mouth swelling, ear pain, eye pain, visual changes CARDIOVASCULAR: Absent: chest pain, syncope, palpitations, irregular heart rate, lightheadedness , peripheral edema RESPIRATORY: Absent: cough, shortness of breath, dyspnea with exertion, orthopnea, wheezing, stridor, hemoptysis GASTROINTESTINAL: Absent: abdominal pain, abdominal distension, nausea, vomiting, diarrhea, constipation, melena, hematochezia GENITOURINARY: Absent: dysuria, frequency, urgency, hesitancy, hematuria, flank pain, genital pain MUSCULOSKELETAL: Left leg pain Absent: myalgia, arthralgia, joint swelling, back pain, neck pain SKIN: Erythema of the left foot Absent: rash, itching, pallor HEMATOLOGIC/IMMUNOLOGIC: Absent: easy bleeding, easy bruising, lymphadenopathy, frequent infections ENDOCRINE: Absent: unexplained weight gain, unexplained weight loss, heat intolerance, cold intolerance NEUROLOGIC: Absent: headache, focal weakness or paresthesias, dizziness, unsteady gait, seizure, mental status changes, bladder or bowel incontinence PSYCHIATRIC: Absent: anxiety, depression, suicidal or homicidal ideation, hallucinations. PHYSICAL EXAMINATION Vital Signs - 24 hr 09/01/17 21:14 Temperature 97.8 F Pulse Rate 82 Respiratory 18 Rate Blood Pressure 104/60 O2 Sat by Pulse 97 Oximetry (%) GENERAL: Awake, alert, and fully oriented, in no mild painful distress. HEAD: Normal with no signs of trauma. EYES: Pupils equal, round and reactive to light, extraocular movements intact, sclera anicteric, conjunctiva clear. ENT: Moist mucous membranes. NECK: No JVD LUNGS: Breath sounds equal, clear to auscultation bilaterally. No wheezes, and no crackles. No accessory muscle use. HEART: Regular rate and irregularly irregular rhythm, normal S1 and S2 with 2/6 Systolic Murmur ABDOMEN: Soft, nontender, not distended, normoactive bowel sounds, no guarding. MUSCULOSKELETAL: No CVA tenderness. LOWER EXTREMITIES: Erythema of medial aspect in the dorsal aspect of the left foot. LLE cooler than right. 1+ pulses of left posterior tibial. 2+ pulses of right posterior tibial. Unable to assess pulses of left dp due to severe TTP. No peripheral edema. NEUROLOGICAL: Cranial nerves II-XII intact. Normal speech. Motor strength 5/5 bilaterally with sensory intact. PSYCHIATRIC: Cooperative. Good eye contact. Appropriate mood and affect. Laboratory Results - last 24 hr CBC, BMP 09/01/17 22:50 09/01/17 22:50 Laboratory Tests 09/01/17 09/01/17 09/02/17 22:50 22:50 04:25 INR 3.97 H PTT (Actin FS) 38.6 H Troponin I 0.39 H B-Natriuretic Peptide 8969.40 H ASSESSMENT/PLAN: Patient is a 77 year old male who presented to the ED with severe left foot pain , swelling, and erythema. Patient found to have MELITA with Bilateral LE duplex pending. Patient admitted for further monitoring and management. LLE Pain -Possible Cellulitis rule out Limb Ischemia -B/L Duplex of LE -Xray of the foot ordered -Unable to do CTA due to MELITA -Vascular consult placed -IV Ceftriaxone 1gm ordered daily -IV NS @83mls/hr -CK levels ordered -Morphine 2mg IVP Q4H PRN for pain control Supratherapeutic INR -INR 3.97 -Repeat INR -Hold Warfarin PAD with History of Right LLE Arterial Occlusion -Continue home ASA 81mg daily -Continue Lipitor 40mg hs MELITA -Likely pre-renal -1.7 today from 1.0 on 03/2017 -IV Fluids with NS @83mls/hr -Urine electrolytes ordered -Hold nephrotoxic meds -Renally dose medications -Continue to monitor BMP Paroxysmal atypical atrial flutter/atrial tachycardia -S/P cardioversion -[id number] score of 6 on detention AC -Will hold Warfarin due to supratherapeutic Warfarin -Monitor INR -Continue Carvedilol 6.25mg daily CAD -Continue ASA 81mg -Continue Coreg 6.25mg -Continue Lipitor 40mg LV systolic/diastolic dysfunction with Chronic Hypertrophic Cardiomyopathy Class I-II NYHA classification -Continue Coreg 6.25mg -Will need to confirm med rec as patient was on Valsartan previous admissions. However, patient currently MELITA and will not resume. HTN -Continue Coreg 6.25mg PO daily -Continue to monitor BP Alcohol Abuse -CIWA 0 -In no praveena rhodes -Will continue to monitor for any alcohol withdrawal symptoms Nicotine dependence -Nicotine Patch 17mg td daily F/E/N -IV NS @83mlshr -Electrolytes wnl -NPO incase for vascular procedure Prophylaxis -High risk. Supratherapeutic INR. Hold warfarin -No GI required Disposition -Full code -Duplex pending Visit type - Emergency Visit Emergency Visit: Yes ED Registration Date: 09/02/17 Care time: The patient presented to the Emergency Department on the above date and was hospitalized for further evaluation of their emergent condition. - New Patient This patient is new to me today: Yes Date on this admission: 09/02/17 - Critical Care Critical Care patient: No Hospitalist Screening - Colonoscopy Questionnaire Colonoscopy Questionnaire: Colonoscopy Questionnaire - Patient: 50 - 75 years old and never had a screening colonoscopy: Unknown History of colon or rectal polyps, or CA: Unknown History of IBD, Crohn's disease or UC: Unknown History of abdominal radiation therapy as a child: Unknown - Relative: 1 with colon or rectal CA, or polyps at age 60 or younger: Unknown Colon or rectal CA diagnosed at age 45 or younger: Unknown Multiple relatives with colon or rectal CA: Unknown - Outcome: Screening Result: Negative Screen
--- NOTE | 2017-09-02 06:14 | PN ---
Teaching Attending Note Name of Resident: Mandy Aldana ATTENDING PHYSICIAN STATEMENT I saw and evaluated the patient. I reviewed the resident's note and discussed the case with the resident. I agree with the resident's findings and plan as documented. SUBJECTIVE: OBJECTIVE: ASSESSMENT AND PLAN: this is a 77 y/o male patient presented to the ER with leg swelling and pain in the left leg, according to the patient this tends to occur from time to time, he stated that the pain can be worse and more swelling than today. patient was noted to have MELITA with his symptoms. being admitted for med/surg for the management of the lower ext pain possible cellulits vs chronic limb ischemia. plan: patient with suprathrepeutic INR - hold warfarin for today repeat INR tomorrow doppler of the lower ext X-Ray of the foot vascular consult Creatinine Kinase level start ceftriaxone daily IVF hydration for MELITA c/w medication
[2017-09-02] MEDS: SODIUM CHLORIDE 1,000 ML IV SCH ×2 (06:32→11:58)
[2017-09-02] MEDS ORDERED: ACETAMINOPHEN 325 MG TABLET (FP) PO ONE (08:18)
[2017-09-02] MEDS ORDERED: ACETAMINOPHEN 325 MG TABLET (FP) ONE (08:25)
[2017-09-02 08:51] LABS: HEMATOCRIT 36.4 % (35.4-49); MCH 30.6 pg (25.7-33.7); MEAN CELL VOLUME 92.8 fl (80-96); MEAN PLT VOLUME 8.2 fl (7.5-11.1); PLATELET COUNT 293 K/MM3 (134-434); RBC 3.92 M/mm3 (4.00-5.60); RDW 15.1 % (11.9-15.9); WHITE BLOOD COUNT 14.5 K/mm3 (4.0-10.0)
--- NOTE | 2017-09-02 08:53 | EKG ---
Test Reason : Blood Pressure : / mmHG Vent. Rate : 093 BPM Atrial Rate : 322 BPM P-R Int : 000 ms QRS Dur : 142 ms QT Int : 418 ms P-R-T Axes : 000 252 047 degrees QTc Int : 519 ms SUSPECT ARM LEAD REVERSAL, INTERPRETATION ASSUMES NO REVERSAL ATRIAL FLUTTER WITH VARIABLE A-V BLOCK RIGHT BUNDLE BRANCH BLOCK ABNORMAL ECG WHEN COMPARED WITH ECG OF 02-APR-2017 21:35, ATRIAL FLUTTER HAS REPLACED ATRIAL FIBRILLATION BORDERLINE CRITERIA FOR LATERAL INFARCT ARE NO LONGER PRESENT NONSPECIFIC T WAVE ABNORMALITY NO LONGER EVIDENT IN ANTERIOR LEADS Confirmed by DC WEBB, ESTEBAN ([id number]) on 09/02/2017 8:53:48 AM Referred By: Confirmed By:ESTEBAN IRWIN MD
[2017-09-02 09:06] LABS: PROTHROMBIN TIME (PATIENT) 46.9 SEC (9.7-13.0)
[2017-09-02 09:10] LABS: INR 4.15 (0.82-1.09)
[2017-09-02 09:18] LABS: ANION GAP 7 (8-16); BLOOD UREA NITROGEN 18 mg/dL (7-18); CALCIUM 7.5 mg/dL (8.5-10.1); CHLORIDE 108 mmol/L (98-107); CO2 25 mmol/L (21-32); GLUCOSE,RANDOM 86 mg/dL (74-106); POTASSIUM 4.3 mmol/L (3.5-5.1); SODIUM 140 mmol/L (136-145)
[2017-09-02 09:21] LABS: CREATININE 1.9 mg/dL (0.7-1.3)
[2017-09-02] MEDS ORDERED: CARVEDILOL 3.125 MG TABLET (FP) ONE (09:26)
[2017-09-02] MEDS ORDERED: ATORVASTATIN CA 40 MG TABLET (FP) ONE (09:27)
[2017-09-02] MEDS ORDERED: CEFTRIAXONE 1 GM/50 ML BAG ONE (09:27)
[2017-09-02] MEDS ORDERED: ASPIRIN COATED 81 MG TABLET.EC ONE (09:27)
[2017-09-02] MEDS: ATORVASTATIN CA 40 MG TABLET (FP) PO SCH (09:43)
[2017-09-02] MEDS: CARVEDILOL 6.25 MG TABLET (FP) PO SCH (09:43)
[2017-09-02] MEDS: ASPIRIN COATED 81 MG TABLET.EC PO SCH (09:43)
[2017-09-02] MEDS ORDERED: CEFTRIAXONE 1 GM in DEXTROSE 5%-WATER - 50 ML IVPB SCH (10:00)
[2017-09-02] MEDS: NICOTINE 14 MG/24 HOURS TOPICAL PATCH TD SCH (11:41)
[2017-09-02] MEDS ORDERED: WARFARIN NA 3 MG TABLET PO SCH (18:00)
--- NOTE | 2017-09-02 18:39 | HOSP ---
Subjective - Review of Symptoms Subjective: evaluated pt who is complaining of L foot pain. progressively worsening over the past week. worse on exertion. noted some swelling and came to the ER. states medications have been changing frequently and get confused with his medications but states he take coumadin 1.5mg MWF and 1mg on the rest of the days. Current Medications Generic Name Dose Route Start Last Admin Trade Name Nkechi PRN Reason Stop Dose Admin Aspirin 81 mg 09/02/17 10:00 09/02/17 09:43 Ecotrin - PO 81 mg DAILY CHELLY Administration Atorvastatin Calcium 40 mg 09/02/17 10:00 09/02/17 09:43 Lipitor - PO 40 mg DAILY CHELLY Administration Carvedilol 6.25 mg 09/02/17 10:00 09/02/17 09:43 Coreg - PO 6.25 mg DAILY CHELLY Administration Ceftriaxone Sodium 1 gm/ 50 mls @ 200 mls/hr 09/02/17 10:00 09/02/17 09:43 Dextrose IVPB 200 mls/hr DAILY CHELLY Administration Protocol Sodium Chloride 1,000 mls @ 100 mls/hr 09/02/17 18:30 Normal Saline - IV ASDIR CHELLY Morphine Sulfate 2 mg 09/02/17 06:38 Morphine Sulfate IVPUSH Q4H PRN PAIN LEVEL 4 - 6 Nicotine 14 mg 09/02/17 10:00 09/02/17 11:41 Nicoderm Patch - TD Not Given DAILY CHELLY Last Vital Signs Temp Pulse Resp BP Pulse Ox 98.7 F 97 H 20 122/77 98 09/02/17 18:05 09/02/17 18:05 09/02/17 18:05 09/02/17 18:05 09/02/17 14:05 General NAD Extremities L foot is exquisitely tender to light touch, both feet are cold. unable to appreciate pulses on either foot. R groin pulse palpable. L groin barely palpable CBCD WBC 14.5 K/mm3 (4.0-10.0) H D 09/02/17 08:25 RBC 3.92 M/mm3 (4.00-5.60) L 09/02/17 08:25 Hgb 12.0 GM/dL (11.7-16.9) 09/02/17 08:25 Hct 36.4 % (35.4-49) 09/02/17 08:25 MCV 92.8 fl (80-96) 09/02/17 08:25 MCHC 33.0 g/dl (32.0-35.9) 09/02/17 08:25 RDW 15.1 % (11.9-15.9) 09/02/17 08:25 Plt Count 293 K/MM3 (134-434) 09/02/17 08:25 MPV 8.2 fl (7.5-11.1) 09/02/17 08:25 CMP Sodium 140 mmol/L (136-145) 09/02/17 08:25 Potassium 4.3 mmol/L (3.5-5.1) 09/02/17 08:25 Chloride 108 mmol/L (98-107) H 09/02/17 08:25 Carbon Dioxide 25 mmol/L (21-32) 09/02/17 08:25 Anion Gap 7 (8-16) L 09/02/17 08:25 BUN 18 mg/dL (7-18) 09/02/17 08:25 Creatinine 1.9 mg/dL (0.7-1.3) H 09/02/17 08:25 Calcium 7.5 mg/dL (8.5-10.1) L 09/02/17 08:25 A/P 77yo M with PMH continuous ETOH abuse, HTN, CAD, Afib on coumadin, PAD s/p B /L thrombectomy 2016 presented to the ER for L foot pain 1. Acute L foot pain- concern for ischemia. foot is cold, tender without pulse on doppler. unable to obtain CTA due to MELITA. will obtain arterial and vascular doppler. pt has supratherapeutic INR. spoke with Dr Rico who is aware and will see patient int he AM. was started on Ceftriaxone for suspected cellulitis but have low suspicion at this time. will cont for the time being 2. MELITA- normal baseline kidney function. will increase IVF, monitor respiratory status closely. check Ulytes, Ucr 3. Elevated troponin- likely due to MELITA. flat trend of troponin 0.37, 0.35. no cardiac workup indicated at this time 4. Supratherapeutic INR- will hold coumadin. monitor INR daily. start heparin gtt once <2 if surgery is necessary 5. SIRS- with possible cellulitis (Tm 100.6 with leukocytosis). likely reactive however will treat at this time. switch ceftriaxone to clindamycin. monitor. consider stopping if there is ischemia 6. DVT ppx- elevated INR Physical Examination Vital Signs: Vital Signs Temperature 98.7 F 09/02/17 18:05 Pulse Rate 97 H 09/02/17 18:05 Respiratory Rate 20 09/02/17 18:05 Blood Pressure 122/77 09/02/17 18:05 O2 Sat by Pulse Oximetry (%) 98 09/02/17 14:05 Labs: CBC, BMP 09/02/17 08:25 09/02/17 08:25
[2017-09-02] MEDS: ACETAMINOPHEN 325 MG TABLET (FP) PO PRN (21:29)
[2017-09-02 21:55] LABS: BASO % 0.6 % (0-2.0); EOS % 0.3 % (0-4.5); HEMATOCRIT 34.2 % (35.4-49); HEMOGLOBIN 11.3 GM/dL (11.7-16.9); LYMPH % 10.1 % (8-40); MCH 30.6 pg (25.7-33.7); MCHC 32.9 g/dl (32.0-35.9); MEAN CELL VOLUME 92.7 fl (80-96); MEAN PLT VOLUME 8.5 fl (7.5-11.1); PLATELET COUNT 308 K/MM3 (134-434); RBC 3.69 M/mm3 (4.00-5.60); RDW 15.2 % (11.9-15.9); WHITE BLOOD COUNT 14.3 K/mm3 (4.0-10.0)
[2017-09-02 22:21] LABS: ALBUMIN 2.2 g/dl (3.4-5.0); ANION GAP 7 (8-16); BILIRUBIN,TOTAL 0.6 mg/dL (0.2-1.0); BLOOD UREA NITROGEN 22 mg/dL (7-18); CALCIUM 7.3 mg/dL (8.5-10.1); CHLORIDE 108 mmol/L (98-107); CO2 25 mmol/L (21-32); CREATININE 1.9 mg/dL (0.7-1.3); GLUCOSE,RANDOM 85 mg/dL (74-106); POTASSIUM 4.2 mmol/L (3.5-5.1); SGOT/AST 85 U/L (15-37); SGPT/ALT 70 U/L (12-78); SODIUM 140 mmol/L (136-145)
[2017-09-02 22:22] LABS: ALK PHOS 73 U/L (45-117)
[2017-09-02 22:30] LABS: PROTHROMBIN TIME (PATIENT) 55.2 SEC (9.7-13.0)
[2017-09-02 22:33] LABS: ACTIVATED PTT 39.9 SECONDS (26.9-34.4)
[2017-09-02 22:36] LABS: INR 4.88 (0.82-1.09)
[2017-09-03] MEDS: CLINDAMYCIN 300 MG PREMIX IVPB 300 MG/50 ML BAG IVPB SCH ×4 (01:19→17:48)
[2017-09-03] MEDS: SODIUM CHLORIDE 1,000 ML IV SCH ×4 (01:19→20:44)
[2017-09-03] MEDS: ACETAMINOPHEN 325 MG TABLET (FP) PO PRN ×2 (02:31→16:48)
[2017-09-03 07:50] LABS: BASO % 0.3 % (0-2.0); EOS % 0.2 % (0-4.5); HEMATOCRIT 32.7 % (35.4-49); LYMPH % 8.4 % (8-40); MCH 31.2 pg (25.7-33.7); MCHC 33.5 g/dl (32.0-35.9); MEAN CELL VOLUME 93.2 fl (80-96); MEAN PLT VOLUME 8.5 fl (7.5-11.1); NEUT % 79.1 % (42.8-82.8); PLATELET COUNT 266 K/MM3 (134-434); RBC 3.51 M/mm3 (4.00-5.60); RDW 15.3 % (11.9-15.9); WHITE BLOOD COUNT 14.7 K/mm3 (4.0-10.0)
[2017-09-03 08:10] LABS: PROTHROMBIN TIME (PATIENT) 57.4 SEC (9.7-13.0)
[2017-09-03 08:22] LABS: INR 5.08 (0.82-1.09)
--- NOTE | 2017-09-03 08:41 | PN ---
Teaching Attending Note Name of Resident: Jazzmine Forde ATTENDING PHYSICIAN STATEMENT I saw and evaluated the patient. I reviewed the resident's note and discussed the case with the resident. I agree with the resident's findings and plan as documented. SUBJECTIVE:states L foot pain is better than yesterday. refuses to walk on it in fear of causing pain. denies CP, SOB, fever, chills, cough, N/V/C/D OBJECTIVE: Last Vital Signs Temp Pulse Resp BP Pulse Ox 98.9 F 97 H 20 113/61 95 09/03/17 06:00 09/03/17 06:00 09/03/17 06:00 09/03/17 06:00 09/02/17 21:00 Refused my physical exam as he was already examined today General NAD ASSESSMENT AND PLAN: 77yo M with PMH continuous ETOH abuse, HTN, CAD, Afib on coumadin, PAD s/p B/L thrombectomy 2016 presented to the ER for L foot pain 1. Acute L foot pain- concern for ischemia.awaiting arterial dopplers. will need CTA once renal function improves. spoke with vascular surgery and no intervention at this time awaiting imaging studies and for INR to trend down. will keep Clinda for cellulitis although low suspicion. 2. SEpsis due to suspected cellulitis- Tm 101.1. sepsis workup sent. will f/u. possible cellulitis on admission and on clindamycin will cont for now until Cx reported. will likely stop in 24-48H if no repeat fevers and leukcoytosis improves. 3. MELITA- normal baseline kidney function. Fena 0.24. slow trend down. will monitor for now. if no improvement by tomorrow will consider nephro consult. cont IVF for hydration 4. Elevated troponin- likely due to MELITA. flat trend of troponin 0.37, 0.35. no cardiac workup indicated at this time 5. Supratherapeutic INR- he last took medications day of admission (monday) took 9mg. INR trending up. will cont hold at this time. will wait on giving vitamin K in setting of afib 6. DVT ppx- elevated INR
--- NOTE | 2017-09-03 08:47 | PN ---
Progress Note (short form) - Note Progress Note: Vascular surgery Pt seen and examined. Complains of left lower ext pain for over a month. The pain is off and on. Last november pt had bl lower ext open thrombectomy due to embolus. Pt was in afib. Pt now on AC with INR of 5. Cr is 1.9 yest. On physical exam bl lower ext with motor and sensory intact. Pt sitting up in bed having breakfast. Both legs are warm. No palpable pulses. Will get doppler to check pulses. Pt will need imaging - pt being hydrated to bring Cr down. Once normal can do angiogram or cta. Also INR is 5, will need to bring down before any intervention. Left leg is stable. will follow Garrett brewer DO
[2017-09-03 08:59] LABS: CHLORIDE 110 mmol/L (98-107); POTASSIUM 4.2 mmol/L (3.5-5.1); SODIUM 142 mmol/L (136-145)
[2017-09-03 09:13] LABS: ANION GAP 10 (8-16); BLOOD UREA NITROGEN 22 mg/dL (7-18); CALCIUM 7.1 mg/dL (8.5-10.1); CO2 22 mmol/L (21-32); CREATININE 1.8 mg/dL (0.7-1.3); GLUCOSE,RANDOM 78 mg/dL (74-106)
[2017-09-03] MEDS: CARVEDILOL 6.25 MG TABLET (FP) PO SCH (10:23)
[2017-09-03] MEDS: ATORVASTATIN CA 40 MG TABLET (FP) PO SCH (10:23)
[2017-09-03] MEDS: ASPIRIN COATED 81 MG TABLET.EC PO SCH (10:24)
[2017-09-03] MEDS: NICOTINE 14 MG/24 HOURS TOPICAL PATCH TD SCH (10:24)
[2017-09-03 11:42] LABS: URINE APPEARANCE CLEAR; URINE BILIRUBIN NEGATIVE (<2.0 mg/dL); URINE BLOOD 1+ (NEGATIVE); URINE COLOR YELLOW; URINE GLUCOSE (UA) NEGATIVE (NEGATIVE); URINE KETONE TRACE (NEGATIVE); URINE LEUK ESTERASE NEGATIVE (NEGATIVE); URINE NITRITE NEGATIVE (NEGATIVE); URINE PROTEIN 1+ (NEGATIVE); URINE UROBILINOGEN 4.0 E.U/dl mg/dL (0.2-1.0)
[2017-09-03 11:44] LABS: URINE BACTERIA FEW /hpf (NONE SEEN); URINE MUCUS RARE
--- NOTE | 2017-09-03 14:01 | PN ---
Physical Exam: SUBJECTIVE: Patient seen and examined at home. Overnight, pt febrile to 101 F - received Tylenol x 1. Today, pt eating breakfast, states that the pain in his L foot is the same as yesterday. Denies CLAROS, fever, chills, SOB, chest pain or pressure, or changes in urinary or bowel function. OBJECTIVE: Vital Signs Period Temp Pulse Resp BP Sys/Ariza Pulse Ox Last 24 Hr 98.7 F-101.1 F 90-101 18-20 110-123/61-77 95-98 GENERAL: Pleasant. awake, alert, and fully oriented, in no acute distress. HEAD: Normal with no signs of trauma. EYES: PERRL, extraocular movements intact, sclera anicteric, conjunctiva clear. ENT: Ears normal, nares patent, oropharynx clear without exudates, moist mucous membranes NECK: Trachea midline, supple. LUNGS: decreased breath sounds, clear to auscultation bilaterally, no wheezes, no crackles, no accessory muscle use. HEART: Regular rate and rhythm, S1, S2 without murmur, rub or gallop. ABDOMEN: Soft, nontender, nondistended, normoactive bowel sounds, no guarding LOWER EXTREMITIES: unable to appreciate dp or pt pulses in lower extremities. + cool, without edema. +L foot-mottled with discoloration, diffusely TTP - increased in forefoot. Difficult to assess ROM and motor strength d/t foot pain NEUROLOGICAL: Cranial nerves II through XII grossly intact. Normal speech. Gait not observed PSYCH: Normal mood, normal affect. SKIN: Warm, dry, normal turgor, no rashes or lesions noted Laboratory Results - last 24 hr 09/02/17 09/02/17 09/02/17 13:25 21:19 21:19 WBC 14.3 H RBC 3.69 L Hgb 11.3 L Hct 34.2 L MCV 92.7 MCH 30.6 MCHC 32.9 RDW 15.2 Plt Count 308 MPV 8.5 Neutrophils % 76.0 Lymphocytes % 10.1 Monocytes % 13.0 H Eosinophils % 0.3 Basophils % 0.6 Nucleated RBC % 0 PT with INR 55.20 H INR 4.88 H* PTT (Actin FS) 39.9 H Sodium Ur Random Sodium 61 Ur Random Potassium 87.1 Ur Random Chloride 84 Urine Creatinine 345.0 09/02/17 09/02/17 09/03/17 21:19 21:19 06:00 WBC 14.7 H RBC 3.51 L Hgb 11.0 L Hct 32.7 L MCV 93.2 MCH 31.2 MCHC 33.5 RDW 15.3 Plt Count 266 MPV 8.5 Neutrophils % 79.1 Lymphocytes % 8.4 Monocytes % 12.0 H Eosinophils % 0.2 Basophils % 0.3 Nucleated RBC % 0 Sodium 140 Potassium 4.2 Chloride 108 H Carbon Dioxide 25 Anion Gap 7 L BUN 22 H D Creatinine 1.9 H Creat Clearance w eGFR 34.37 Random Glucose 85 Lactic Acid 1.0 Calcium 7.3 L Total Bilirubin 0.6 D AST 85 H D ALT 70 D Alkaline Phosphatase 73 Total Protein 6.0 L Albumin 2.2 L D Urine Color Urine Creatinine 09/03/17 09/03/17 09/03/17 06:00 06:00 10:30 Nucleated RBC % PT with INR 57.40 H INR 5.08 H* PTT (Actin FS) Sodium 142 Potassium 4.2 Chloride 110 H Carbon Dioxide 22 Anion Gap 10 BUN 22 H Creatinine 1.8 H Creat Clearance w eGFR Random Glucose 78 Lactic Acid Calcium 7.1 L Albumin Urine Color Yellow Urine Appearance Clear Urine pH 6.0 Ur Specific [place] 1.021 Urine Protein 1+ H Urine Glucose (UA) Negative Urine Ketones Trace H Urine Blood 1+ H Urine Nitrite Negative Urine Bilirubin Negative Urine Urobilinogen 4.0 e.u/dl Ur Leukocyte Esterase Negative Urine WBC (Auto) 3 Urine RBC (Auto) 9 Urine Bacteria Few Urine Mucus Rare Active Medications Generic Name Dose Route Start Last Admin Trade Name Nkechi PRN Reason Stop Dose Admin Acetaminophen 650 mg 09/02/17 20:32 09/03/17 02:31 Tylenol - PO 650 mg Q6H PRN Administration FEVER Aspirin 81 mg 09/02/17 10:00 09/03/17 10:24 Ecotrin - PO 81 mg DAILY CHELLY Administration Atorvastatin Calcium 40 mg 09/02/17 10:00 09/03/17 10:23 Lipitor - PO 40 mg DAILY CHELLY Administration Carvedilol 6.25 mg 09/02/17 10:00 09/03/17 10:23 Coreg - PO 6.25 mg DAILY CHELLY Administration Sodium Chloride 1,000 mls @ 100 mls/hr 09/02/17 18:30 09/03/17 01:32 Normal Saline - IV 100 mls/hr ASDIR CHELLY Administration Clindamycin Phosphate 300 mg in 50 mls @ 100 mls/hr 09/03/17 02:00 09/03/17 10:23 Cleocin 300 Mg Premix Ivpb IVPB 100 mls/hr Q8H-IV CHELLY Administration Protocol Morphine Sulfate 2 mg 09/02/17 06:38 Morphine Sulfate IVPUSH Q4H PRN PAIN LEVEL 4 - 6 Nicotine 14 mg 09/02/17 10:00 09/03/17 10:24 Nicoderm Patch - TD Not Given DAILY CHELLY IMAGING -09/02/17: Duplex, arterial duplex lower ext: no evidence of DVT in both lower extremities. compared to prior b/l lower extremity duplex arterial US from , in the RLE there is now normal triphasic waveform in the common femoral artery, superficial femoral, popliteal, posterior tibial a. atheromatous plaques are present throughout. in the LLE, there is normal triphasic waveform in L common femoral a. there is no definite flow within the L superficial femoral, popliteal, and posterior tibial a. consistent with occlusion. diffuse atheromatous plaques are present throughout. -09/02/17: CXR: since prior study 09/02/17, new congestive changes with persistently elevated L hemidiaphragm and some bibasilar atelctatic/ infiltrative changes with the L more affected than the R. there may be some L fluid. correlation recommended. -09/02/17: L foot XR: pes planus deformity, exostosis/degenertive change of navicular bone. bunion formation of 1st MTP with extenive arthritic changes. the toes are partially flexed with arthritic changes. no sign of calcaneal spurring. blastic changes are not seen. there appears to be a hypodene/cystic change at the base of the proximal phalynx of the 2nd metatarsal. correlation recommended. if symptoms persist, further imaging and ortho consultation may be needed. Microbiology -09/03/17: urine cx- pending -09/03/17: blood cx - pending ASSESSMENT/PLAN: 77 y/o M with PMH alcohol abuse, HTN, CAD, afib (on coumadin), PAD s/p thrombectomy 2016, who presented to the ED with acute L foot pain. Pt admitted for acute L foot pain, r/o ischemia. #Acute L foot pain, r/o ischemia -pt without palpable pt, dp pulses in lower extremities -duplex, arterial duplex lower extremities: no definite flow within the L superficial femoral, popliteal, posterior tibial a -consistent with occlusion -will get CTA once MELITA resolves and INR trends down; currently Cr 1.8 (from 1.9) , INR 5.08 -Vascular- Dr. Rico; no intervention until above #Possible cellulitis -currently with white count (14.7 from 14.3), trending up. with mild tachy 97HR -continue clinda 300mg q8h (Today is Day 1) -F/u ucx, blood cx #MELITA likely 2/2 prerenal -FEna 0.2 -Continue IVF 100 cc/hr -Continue to monitor; once normalizes can undergo CTA #Supratherapeutic INR -Has been trending up; 4.88>5.08 -expect will take 2-3 days before comes down -will not use vit K at this time as no sign active bleeding, and INR not >9 -additionally, as pt with afib do not want to reverse quickly or will increase chance of clot #F/E/N Encourage PO intake Continue to follow lytes Low Na controlled diet #PPX -Supratherapeutic INR #Dispo -cont'd monitoring on med surg -await normalization INR, MELITA before CTA and vascular intervention. Visit type - Emergency Visit Emergency Visit: No - New Patient This patient is new to me today: Yes Date on this admission: 09/03/17 - Critical Care Critical Care patient: No
[2017-09-03] MEDS ORDERED: PT OWN MED DRAWER 7, Y5N ONE (16:47)
[2017-09-03] MEDS: morphine SULFATE 4 MG/ML VIAL IVPUSH PRN (19:28)
[2017-09-04] MEDS: CLINDAMYCIN 300 MG PREMIX IVPB 300 MG/50 ML BAG IVPB SCH (01:05)
[2017-09-04] MEDS: morphine SULFATE 4 MG/ML VIAL IVPUSH PRN ×3 (01:13→23:52)
[2017-09-04] MEDS: ACETAMINOPHEN 325 MG TABLET (FP) PO PRN (02:32)
[2017-09-04 07:45] LABS: BASO % 0.3 % (0-2.0); EOS % 0.9 % (0-4.5); HEMATOCRIT 30.4 % (35.4-49); LYMPH % 10.7 % (8-40); MCH 30.7 pg (25.7-33.7); MEAN CELL VOLUME 93.2 fl (80-96); MEAN PLT VOLUME 8.9 fl (7.5-11.1); NEUT % 77.1 % (42.8-82.8); PLATELET COUNT 264 K/MM3 (134-434); RBC 3.26 M/mm3 (4.00-5.60); RDW 15.3 % (11.9-15.9)
[2017-09-04 07:51] LABS: CHLORIDE 110 mmol/L (98-107); POTASSIUM 4.4 mmol/L (3.5-5.1); SODIUM 141 mmol/L (136-145)
[2017-09-04 08:00] LABS: ANION GAP 8 (8-16); BLOOD UREA NITROGEN 21 mg/dL (7-18); CO2 23 mmol/L (21-32); CREATININE 1.6 mg/dL (0.7-1.3); GLUCOSE,RANDOM 86 mg/dL (74-106)
--- NOTE | 2017-09-04 08:44 | PN ---
Progress Note (short form) - Note Progress Note: continues to haev L foot pain but controlled iwth pain medication. denies Cp, SOB, fever, chills, N/V/C/D or cough Current Medications Generic Name Dose Route Start Last Admin Trade Name Freq PRN Reason Stop Dose Admin Acetaminophen 650 mg 09/02/17 20:32 09/04/17 02:32 Tylenol - PO 650 mg Q6H PRN Administration FEVER Aspirin 81 mg 09/02/17 10:00 09/03/17 10:24 Ecotrin - PO 81 mg DAILY CHELLY Administration Atorvastatin Calcium 40 mg 09/02/17 10:00 09/03/17 10:23 Lipitor - PO 40 mg DAILY CHELLY Administration Carvedilol 6.25 mg 09/02/17 10:00 09/03/17 10:23 Coreg - PO 6.25 mg DAILY CHELLY Administration Sodium Chloride 1,000 mls @ 100 mls/hr 09/02/17 18:30 09/03/17 20:44 Normal Saline - IV Not Given ASDIR CHELLY Clindamycin Phosphate 300 mg in 50 mls @ 100 mls/hr 09/03/17 02:00 09/04/17 01:05 Cleocin 300 Mg Premix Ivpb IVPB 100 mls/hr Q8H-IV CHELLY Administration Protocol Morphine Sulfate 2 mg 09/02/17 06:38 09/04/17 01:13 Morphine Sulfate IVPUSH 2 mg Q4H PRN Administration PAIN LEVEL 4 - 6 Nicotine 14 mg 09/02/17 10:00 09/03/17 10:24 Nicoderm Patch - TD Not Given DAILY [facility] Last Vital Signs Temp Pulse Resp BP Pulse Ox 99.4 F 90 20 106/62 98 09/04/17 06:00 09/04/17 06:00 09/04/17 06:00 09/04/17 06:00 09/03/17 21:00 General NAD CV S1 S2+ Lungs CTA B/L no wheezng/rales/rhonchi Abdomen soft NT/ND obese Extremities LLE cool, unable to palpate pulse, tender foot CBCD WBC 12.0 K/mm3 (4.0-10.0) H 09/04/17 07:00 RBC 3.26 M/mm3 (4.00-5.60) L 09/04/17 07:00 Hgb 10.0 GM/dL (11.7-16.9) L 09/04/17 07:00 Hct 30.4 % (35.4-49) L 09/04/17 07:00 MCV 93.2 fl (80-96) 09/04/17 07:00 MCHC 33.0 g/dl (32.0-35.9) 09/04/17 07:00 RDW 15.3 % (11.9-15.9) 09/04/17 07:00 Plt Count 264 K/MM3 (134-434) 09/04/17 07:00 MPV 8.9 fl (7.5-11.1) 09/04/17 07:00 CMP Sodium 141 mmol/L (136-145) 09/04/17 07:00 Potassium 4.4 mmol/L (3.5-5.1) 09/04/17 07:00 Chloride 110 mmol/L (98-107) H 09/04/17 07:00 Carbon Dioxide 23 mmol/L (21-32) 09/04/17 07:00 Anion Gap 8 (8-16) 09/04/17 07:00 BUN 21 mg/dL (7-18) H 09/04/17 07:00 Creatinine 1.6 mg/dL (0.7-1.3) H 09/04/17 07:00 Creat Clearance w eGFR 34.37 (>60) 09/02/17 21:19 Calcium 7.0 mg/dL (8.5-10.1) L 09/04/17 07:00 Total Bilirubin 0.6 mg/dL (0.2-1.0) D 09/02/17 21:19 AST 85 U/L (15-37) H D 09/02/17 21:19 ALT 70 U/L (12-78) D 09/02/17 21:19 Alkaline Phosphatase 73 U/L (45-117) 09/02/17 21:19 Total Protein 6.0 g/dl (6.4-8.2) L 09/02/17 21:19 Albumin 2.2 g/dl (3.4-5.0) L D 09/02/17 21:19 ASSESSMENT AND PLAN: 77yo M with PMH continuous ETOH abuse, HTN, CAD, Afib on coumadin, PAD s/p B/L thrombectomy 2016 presented to the ER for L foot pain 1. Acute L foot pain- arterial doppler showing obstruction in superficial femoral. popliteal and posterior tibial. INR supratherapeutic yesterday awaiting todays labs. will need intervention by Vascular. will await plans. 2. SEpsis due to suspected cellulitis- afebrile. low suspicon for cellulitis. will d/c abx. monitor off abx. 3. MELITA- normal baseline kidney function. Fena 0.24. slowly trend down. monitor breathing status while on IVF. avoid nephrotoxic medications 4. Elevated troponin- likely due to MELITA. flat trend of troponin 0.37, 0.35. no cardiac workup indicated at this time 5. Supratherapeutic INR- he last took medications day of admission (monday) took 9mg. awaiting INR level today. concern giving vitamin K. consider hematology workup to determine why pt is developing blockage while anticoagulated. will need to call PMD to evaluate if has had periods of subtherapeutic iNR. 6. DVT ppx- elevated INR Visit type - Emergency Visit Emergency Visit: Yes ED Registration Date: 09/02/17 Care time: The patient presented to the Emergency Department on the above date and was hospitalized for further evaluation of their emergent condition. - New Patient This patient is new to me today: No - Critical Care Critical Care patient: No - Discharge Referral Referred to [facility] Med P.C.: No
[2017-09-04 09:28] LABS: PROTHROMBIN TIME (PATIENT) 48.4 SEC (9.7-13.0)
[2017-09-04 09:45] LABS: INR 4.28 (0.82-1.09)
[2017-09-04] MEDS: ATORVASTATIN CA 40 MG TABLET (FP) PO SCH (10:14)
[2017-09-04] MEDS: ASPIRIN COATED 81 MG TABLET.EC PO SCH (10:14)
[2017-09-04] MEDS: NICOTINE 14 MG/24 HOURS TOPICAL PATCH TD SCH ×2 (10:14→10:25)
[2017-09-04] MEDS: CARVEDILOL 6.25 MG TABLET (FP) PO SCH (10:14)
--- NOTE | 2017-09-04 12:33 | PN ---
Progress Note (short form) - Note Progress Note: Vascular Surgery Arterial study reviewed. Left leg occlusion of sfa. Cr is 1.6 INR - 4.28 Pt will probably need angiogram of left lower ext. Cont to hydrate to bring Cr down. INR coming down . Garrett Rico DO
[2017-09-04] MEDS: SODIUM CHLORIDE 1,000 ML IV SCH (15:26)
[2017-09-05] MEDS: SODIUM CHLORIDE 1,000 ML IV SCH ×3 (01:54→18:17)
[2017-09-05] MEDS: morphine SULFATE 4 MG/ML VIAL IVPUSH PRN ×2 (06:44→20:09)
[2017-09-05 08:22] LABS: BASO % 0.3 % (0-2.0); EOS % 0.9 % (0-4.5); HEMATOCRIT 31.7 % (35.4-49); HEMOGLOBIN 10.4 GM/dL (11.7-16.9); LYMPH % 14.2 % (8-40); MCH 30.7 pg (25.7-33.7); MCHC 32.8 g/dl (32.0-35.9); MEAN CELL VOLUME 93.5 fl (80-96); MEAN PLT VOLUME 8.6 fl (7.5-11.1); MONO % 11.1 % (3.8-10.2); NEUT % 73.5 % (42.8-82.8); PLATELET COUNT 287 K/MM3 (134-434); RBC 3.39 M/mm3 (4.00-5.60); RDW 15.7 % (11.9-15.9); WHITE BLOOD COUNT 9.2 K/mm3 (4.0-10.0)
[2017-09-05 08:39] LABS: INR 2.58 (0.82-1.09); PROTHROMBIN TIME (PATIENT) 29.1 SEC (9.7-13.0)
[2017-09-05 08:51] LABS: CHLORIDE 109 mmol/L (98-107); POTASSIUM 4.4 mmol/L (3.5-5.1); SODIUM 141 mmol/L (136-145)
[2017-09-05 09:04] LABS: ANION GAP 8 (8-16); BLOOD UREA NITROGEN 18 mg/dL (7-18); CALCIUM 7.4 mg/dL (8.5-10.1); CO2 24 mmol/L (21-32); CREATININE 1.5 mg/dL (0.7-1.3); GLUCOSE,RANDOM 84 mg/dL (74-106)
[2017-09-05] MEDS: ATORVASTATIN CA 40 MG TABLET (FP) PO SCH (09:24)
[2017-09-05] MEDS: ASPIRIN COATED 81 MG TABLET.EC PO SCH (09:24)
[2017-09-05] MEDS: CARVEDILOL 6.25 MG TABLET (FP) PO SCH (09:25)
[2017-09-05] MEDS: NICOTINE 14 MG/24 HOURS TOPICAL PATCH TD SCH (09:25)
--- NOTE | 2017-09-05 12:05 | PN ---
Progress Note (short form) - Note Progress Note: VAscular Surgery Pt seen and examined. INR is 2.58. Please start IV heparin once INR falls below 2. Creatinine today is 1.5. Slowly coming down. Once both values are normal, will proceed for angiogram. Garrett Rico DO
--- NOTE | 2017-09-05 16:01 | PN ---
Physical Exam: SUBJECTIVE: Patient seen and examined at bedside. Overnight, pt received morphine for lower extremity pain. This AM, pt drowsy and confused, unaware of his location. Otherwise denies CLAROS, fever, chills, SOB, or changes in urinary or bowel function. OBJECTIVE: Vital Signs Period Temp Pulse Resp BP Sys/Ariza Pulse Ox Last 24 Hr 97.8 F-98.9 F 64-102 16-20 133-139/63-78 96 GENERAL: The patient is sitting comfortably in bed. AAOx2 (self, time). In no acute distress HEAD: Normal with no signs of trauma. EYES: PERRL, extraocular movements intact, sclera anicteric, conjunctiva clear. ENT: Ears normal, nares patent, oropharynx clear without exudates, moist mucous membranes. NECK: Trachea midline, supple. LUNGS: Breath sounds equal, clear to auscultation bilaterally, no wheezes, no crackles, no accessory muscle use. HEART: Regular rate and rhythm- in sinus, S1, S2 without murmur, rub or gallop. ABDOMEN: Soft, nontender, nondistended, normoactive bowel sounds, no guarding, no rebound EXTREMITIES: no dp, or pt pulses appreciable, +cool to touch, without edema. + LLE- mottled - juan in forefoot. +diffusely TTP NEUROLOGICAL: Cranial nerves II through XII grossly intact. Normal speech PSYCH: Normal mood, normal affect. SKIN: Warm, dry, normal turgor Laboratory Results - last 24 hr 09/05/17 09/05/17 09/05/17 06:43 06:43 06:43 WBC 9.2 RBC 3.39 L Hgb 10.4 L Hct 31.7 L MCV 93.5 MCH 30.7 MCHC 32.8 RDW 15.7 Plt Count 287 MPV 8.6 Neutrophils % 73.5 Lymphocytes % 14.2 D Monocytes % 11.1 H Eosinophils % 0.9 Basophils % 0.3 Nucleated RBC % 0 PT with INR 29.10 H INR 2.58 H D Sodium 141 Potassium 4.4 Chloride 109 H Carbon Dioxide 24 Anion Gap 8 BUN 18 Creatinine 1.5 H Random Glucose 84 Calcium 7.4 L Active Medications Generic Name Dose Route Start Last Admin Trade Name Freq PRN Reason Stop Dose Admin Acetaminophen 650 mg 09/02/17 20:32 09/04/17 02:32 Tylenol - PO 650 mg Q6H PRN Administration FEVER Aspirin 81 mg 09/02/17 10:00 09/05/17 09:24 Ecotrin - PO 81 mg DAILY CHELLY Administration Atorvastatin Calcium 40 mg 09/02/17 10:00 09/05/17 09:24 Lipitor - PO 40 mg DAILY CHELLY Administration Carvedilol 6.25 mg 09/02/17 10:00 09/05/17 09:25 Coreg - PO 6.25 mg DAILY CHELLY Administration Sodium Chloride 1,000 mls @ 100 mls/hr 09/02/17 18:30 09/05/17 07:45 Normal Saline - IV 100 mls/hr ASDIR CHELLY Administration Morphine Sulfate 2 mg 09/02/17 06:38 09/05/17 06:44 Morphine Sulfate IVPUSH 2 mg Q4H PRN Administration PAIN LEVEL 4 - 6 Nicotine 14 mg 09/02/17 10:00 09/05/17 09:25 Nicoderm Patch - TD Not Given DAILY [facility] -09/02/17: Duplex, arterial duplex lower ext: no evidence of DVT in both lower extremities. compared to prior b/l lower extremity duplex arterial US from , in the RLE there is now normal triphasic waveform in the common femoral artery, superficial femoral, popliteal, posterior tibial a. atheromatous plaques are present throughout. in the LLE, there is normal triphasic waveform in L common femoral a. there is no definite flow within the L superficial femoral, popliteal, and posterior tibial a. consistent with occlusion. diffuse atheromatous plaques are present throughout. -09/02/17: CXR: since prior study 09/02/17, new congestive changes with persistently elevated L hemidiaphragm and some bibasilar atelctatic/ infiltrative changes with the L more affected than the R. there may be some L fluid. correlation recommended. -09/02/17: L foot XR: pes planus deformity, exostosis/degenerative change of navicular bone. bunion formation of 1st MTP with extenive arthritic changes. the toes are partially flexed with arthritic changes. no sign of calcaneal spurring. blastic changes are not seen. there appears to be a hypodene/cystic change at the base of the proximal phalynx of the 2nd metatarsal. correlation recommended. if symptoms persist, further imaging and ortho consultation may be needed. Microbiology 09/03/17 10:30 Urine - Urine Clean Catch Urine Culture - Final NO GROWTH OBTAINED 09/02/17 21:40 Blood - Peripheral Venous Blood Culture - Preliminary NO GROWTH OBTAINED AFTER 48 HOURS, INCUBATION TO CONTINUE FOR 3 DAYS. 09/02/17 21:19 Blood - Peripheral Venous Blood Culture - Preliminary NO GROWTH OBTAINED AFTER 48 HOURS, INCUBATION TO CONTINUE FOR 3 DAYS. ASSESSMENT/PLAN: 77 y/o M with PMH alcohol abuse, HTN, CAD, afib (on coumadin), PAD s/p thrombectomy 2016, who presented to the ED with acute L foot pain. Pt admitted for acute L foot pain, r/o ischemia. #Acute L foot pain, r/o ischemia -pt without palpable pt, dp pulses in lower extremities -duplex, arterial duplex lower extremities: no definite flow within the L superficial femoral, popliteal, posterior tibial a -consistent with occlusion -will get CTA once MELITA resolves and INR trends down; currently Cr 1.5 (from 1.6) , INR 2.58 -will start hep gtt once INR <2 -Vascular- Dr. Rico #Possible cellulitis -improved white count (9.2-WNL from 12) -received clinda -currently monitoring off abx -ucx, blood cx - NGTD #MELITA likely 2/2 prerenal -FEna 0.2 -Continue IVF 100 cc/hr -Continue to monitor; once normalizes can undergo CTA. -slowly trending down #Supratherapeutic INR- improving -Has improved gradually; currently 2.58. Follow level tomorrow -will not use vit K at this time as no sign active bleeding, and INR not >9 -additionally, as pt with afib do not want to reverse quickly or will increase chance of clot #F/E/N Encourage PO intake Continue to follow lytes Low Na controlled diet #PPX -Supratherapeutic INR #Dispo -cont'd monitoring on med surg -await normalization INR, MELITA before CTA and vascular intervention. Visit type - Emergency Visit Emergency Visit: No - New Patient This patient is new to me today: No - Critical Care Critical Care patient: No
--- NOTE | 2017-09-05 16:44 | PN ---
Teaching Attending Note Name of Resident: Jazzmine Forde ATTENDING PHYSICIAN STATEMENT I saw and evaluated the patient. I reviewed the resident's note and discussed the case with the resident. I agree with the resident's findings and plan as documented. SUBJECTIVE: Pain in left foot is controlled. OBJECTIVE: Vital Signs Period Temp Pulse Resp BP Sys/Ariza Pulse Ox Last 24 Hr 97.8 F-98.9 F 64-102 16-20 133-139/63-78 96 HEART: Irregular LUNGS: Clear ABDOMEN: Soft, non-tender, non-distended, normal BS EXTREMITIES: Left foot swollen, cold and tender. Right foot cool. Laboratory Results - last 24 hr 09/05/17 09/05/17 09/05/17 06:43 06:43 06:43 WBC 9.2 RBC 3.39 L Hgb 10.4 L Hct 31.7 L MCV 93.5 MCH 30.7 MCHC 32.8 RDW 15.7 Plt Count 287 MPV 8.6 Neutrophils % 73.5 Lymphocytes % 14.2 D Monocytes % 11.1 H Eosinophils % 0.9 Basophils % 0.3 Nucleated RBC % 0 PT with INR 29.10 H INR 2.58 H D Sodium 141 Potassium 4.4 Chloride 109 H Carbon Dioxide 24 Anion Gap 8 BUN 18 Creatinine 1.5 H Random Glucose 84 Calcium 7.4 L Current Medications Generic Name Dose Route Start Last Admin Trade Name Freq PRN Reason Stop Dose Admin Acetaminophen 650 mg 09/02/17 20:32 09/04/17 02:32 Tylenol - PO 650 mg Q6H PRN Administration FEVER Aspirin 81 mg 09/02/17 10:00 09/05/17 09:24 Ecotrin - PO 81 mg DAILY CHELLY Administration Atorvastatin Calcium 40 mg 09/02/17 10:00 09/05/17 09:24 Lipitor - PO 40 mg DAILY CHELLY Administration Carvedilol 6.25 mg 09/02/17 10:00 09/05/17 09:25 Coreg - PO 6.25 mg DAILY CHELLY Administration Sodium Chloride 1,000 mls @ 100 mls/hr 09/02/17 18:30 09/05/17 07:45 Normal Saline - IV 100 mls/hr ASDIR CHELLY Administration Morphine Sulfate 2 mg 09/02/17 06:38 09/05/17 06:44 Morphine Sulfate IVPUSH 2 mg Q4H PRN Administration PAIN LEVEL 4 - 6 Nicotine 14 mg 09/02/17 10:00 09/05/17 09:25 Nicoderm Patch - TD Not Given DAILY [facility] ASSESSMENT AND PLAN: This is a 77 year old man with a history of alcohol abuse, HTN, CAD, atrial fib , PAD who presented to the ED with left foot pain. 1. PAD with left foot ischemia - Arterial duplex shows occlusion of left SFA, popliteal artery, PORCELAIN SLUSHER - Plan for angiogram once INR and creatinine improve 2. SIRS secondary to left foot ischemia - No evidence of sepsis 3. Acute kidney injury - Improving - Continue IV fluid - Continue to monitor creatinine 4. CAD with elevated troponin - No chest pain, SOB - Continue aspirin, Coreg, Lipitor - Cardiology evaluation prior to invasive procedures/surgery 5. Permanent atrial fibrillation - Continue Coreg - Coumadin held secondary to high INR/planned procedure - Start heparin IV drip if when INR < 2.0 6. HTN - Continue Coreg 7. Nicotine dependence - Continue nicotine patch 8. History of alcohol abuse
[2017-09-06] MEDS: morphine SULFATE 4 MG/ML VIAL IVPUSH PRN ×3 (04:20→23:04)
[2017-09-06 07:28] LABS: BASO % 0.4 % (0-2.0); EOS % 0.7 % (0-4.5); HEMATOCRIT 31.1 % (35.4-49); HEMOGLOBIN 10.5 GM/dL (11.7-16.9); LYMPH % 13.5 % (8-40); MCH 31.4 pg (25.7-33.7); MCHC 33.7 g/dl (32.0-35.9); MEAN CELL VOLUME 93.1 fl (80-96); MEAN PLT VOLUME 8.4 fl (7.5-11.1); MONO % 10.6 % (3.8-10.2); NEUT % 74.8 % (42.8-82.8); PLATELET COUNT 321 K/MM3 (134-434); RBC 3.34 M/mm3 (4.00-5.60); RDW 15.4 % (11.9-15.9); WHITE BLOOD COUNT 9.4 K/mm3 (4.0-10.0)
[2017-09-06 07:57] LABS: CHLORIDE 110 mmol/L (98-107); SODIUM 141 mmol/L (136-145)
[2017-09-06 08:08] LABS: ANION GAP 7 (8-16); BLOOD UREA NITROGEN 16 mg/dL (7-18); CALCIUM 7.8 mg/dL (8.5-10.1); CO2 24 mmol/L (21-32); CREATININE 1.3 mg/dL (0.7-1.3); GLUCOSE,RANDOM 90 mg/dL (74-106); MAGNESIUM 2.2 mg/dL (1.8-2.4); PHOSPHOROUS 3.3 mg/dL (2.5-4.9)
--- NOTE | 2017-09-06 09:46 | CON.CARD ---
Consult Consult Specialty:: Cardiology Referred by:: Hospitalist Medicine Reason for Consultation:: Pre-procedural cardiovascular evaluation - History of Present Illness Chief Complaint: Left LE pain and swelling History of Present Illness: This is a 77 y/o man with a PMHx of Persistent Aflutter [id number] with peripheral arterial embolism (on Coumadin) with supratherapeutic INR, Diabetes Mellitus, Apical Hypertrophic Cardiomyopathy, Alcohol Abuse, nonobstructive CAD h/o anaphylaxis after eating [employer]- shrimp and boneless spare ribs presented for intermittent LLE pain. He is asymptomatic from cardiovascular standpoint and denies chest pain, dyspnea, near or true syncope, orthopnea, PND , or edema, exercise capacity limited by left claudication. Noted with INR 5, Cr 1.9, imaging shows left SFA occlusion, without DVT bilaterally. - History Source History Provided By: Patient Limitations to Obtaining History: No Limitations - Past Medical History Cardio/Vascular: Yes: AFIB, HTN, ND - Past Surgical History Past Surgical History: Yes: Hernia Repair - Alcohol/Substance Use Hx Alcohol Use: Yes (Social Drinker) History of Substance Use: reports: None - Smoking History Smoking history: Current some day smoker Have you smoked in the past 12 months: Yes Aproximately how many cigarettes per day: 10 If you are a former smoker, when did you quit?: 04.06.16 Home Medications - Allergies Allergies/Adverse Reactions: Allergies Allergy/AdvReac Type Severity Reaction Status Date / Time valsartan Allergy Severe Verified 09/01/17 21:18 - Home Medications Home Medications: Ambulatory Orders Aspirin [Aspirin EC] 81 mg PO DAILY 09/01/17 Atorvastatin Calcium 40 mg PO DAILY 09/01/17 Carvedilol 6.25 mg PO DAILY 09/01/17 Warfarin Sodium 6 mg PO DAILY 09/01/17 Albuterol Sulfate Inhaler - [Ventolin HFA Inhaler -] 90 mcg PO QID PRN 09/02/17 Fluticasone/Vilanterol [Breo Ellipta 200-25 Mcg INH] 1 each IH DAILY 09/02/17 Ipratropium/Albuterol Sulfate [Combivent Respimat Inhal [place]] 4 gm IH QID 09/02 Review of Systems - Review of Systems Musculoskeletal: reports: Extremity Pain (Left lower extremity) Vital Signs: Vital Signs Temperature 98.2 F 09/06/17 06:59 Pulse Rate 84 09/06/17 06:59 Respiratory Rate 20 09/06/17 06:59 Blood Pressure 113/60 09/06/17 06:59 O2 Sat by Pulse Oximetry (%) 96 09/05/17 21:00 Constitutional: Yes: No Distress, Calm Neck: Yes: Supple Respiratory: Yes: Regular, CTA Bilaterally Gastrointestinal: Yes: Normal Bowel Sounds, Soft Cardiovascular: Yes: Regular Rate and Rhythm JVD: No Carotid Bruit: No Heart Sounds: Yes: S1, S2 Edema: No - Other Data Labs, Other Data: CBC, BMP 09/06/17 06:00 09/06/17 06:00 INR, PTT INR 2.58 (0.82-1.09) H D 09/05/17 06:43 Aflutter @ 93 RBBB Ejection Fraction %: LVEF > or = 40 % Imaging - Results Chest X-ray: Report Reviewed (NAD) Ultrasound: Report Reviewed (Left SFA occlusion, no DVT bilaterally) Problem List - Problems (1) Pre-procedural cardiovascular examination Code(s): Z01.810 - ENCOUNTER FOR PREPROCEDURAL CARDIOVASCULAR EXAMINATION (2) [id number] kidney injury Code(s): N17.9 - ACUTE KIDNEY FAILURE, UNSPECIFIED; N18.9 - CHRONIC KIDNEY DISEASE, UNSPECIFIED Qualifiers: Chronic kidney disease stage: stage 2 (mild) (3) Demand ischemia Code(s): I24.8 - OTHER FORMS OF ACUTE ISCHEMIC HEART DISEASE (4) Anticoagulant long-term use Code(s): Z79.01 - EMPLOYEE BENEFITS MANAGER (CURRENT) USE OF ANTICOAGULANTS (5) Coronary artery disease Code(s): I25.10 - ATHSCL HEART DISEASE OF [place] CORONARY ARTERY W/O ANG PCTRS Qualifiers: Coronary Disease-Associated Artery/Lesion type: [place] artery [place] vs. transplanted heart: [place] heart Associated angina: without angina Qualified Code(s): I25.10 - Atherosclerotic heart disease of [place] coronary artery without angina pectoris (6) Diastolic dysfunction without heart failure Code(s): I51.9 - HEART DISEASE, UNSPECIFIED (7) HTN (hypertension) Code(s): I10 - ESSENTIAL (PRIMARY) HYPERTENSION Qualifiers: Hypertension type: essential hypertension Qualified Code(s): I10 - Essential (primary) hypertension (8) Hypertrophic cardiomyopathy Code(s): I42.2 - OTHER HYPERTROPHIC CARDIOMYOPATHY (9) Peripheral arterial disease Code(s): I73.9 - PERIPHERAL VASCULAR DISEASE, UNSPECIFIED (10) Atrial flutter Code(s): I48.92 - UNSPECIFIED ATRIAL FLUTTER Qualifiers: Atrial flutter type: typical Qualified Code(s): I48.3 - Typical atrial flutter (11) Vascular occlusion Code(s): I99.8 - OTHER DISORDER OF CIRCULATORY SYSTEM Assessment/Plan R&LHc at [facility] 04/20/2016 showing nonobstructive CAD, severe LV apical hypertrophic cardiomyopathy, mildly elevated right sided pressures, Mynx deployed right HYDRO STATION OPERATOR access site. 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 1. PAD with left limb ischemia referable to SFA occlusion 2. History of bilateral SFA occlusion post thrombectomy, most likely embolic disease related to persistent atrial fibrillation with [id number] score of 6, history of poor compliance with therapy administration and medical F/U 3. CAD with demand ischemic injury, non obstructive CAD on R&LHc coronary angiogrpahy angina pectoris 4. LV diastolic dysfunction related to apical hypertrophic cardiomyopathy, chronic class I-II NYHA classification, compensated/euvolemic 5. Persistent atrial flutter [id number] score of 6 on Coumadin therapy, with therapeutic INR 6. HTN 7. Acute on CKD improving 8. Poor compliance with medical therapy administration and medical F/U 9. Tobacco abuse 10. H/o food anaphylaxis PLAN: 1. Given cardiac cath 04/20/2016 showing nonobstructive CAD without new sxs suggestive of acute coronary syndrome, decompensated CHF or malignant arrhythmia , may proceed with endovascular and open peripheral intervention as clinically warranted without further testing once INR and Cr acceptable. 2. Hold coumadin pre-procedure, but resume once post-op hemostasis assured given [id number] score 6, start heparin gtt once INR<2.0 3. Increase Carvedilol 6.25 bid 4. Judicious hydration and hold Diovan 80 qd pending renal fxn stabilization 5. Hold ASA 81 qd pre-procedure, but resume once post-op hemostasis assured 6. Continue Lipitor 40 qhs 7. Counselled smoking cessation and abstinence 8. Will consider outpatient DCCV for the above noted atrial arrhythmia after 3- 4 weeks of adequate A/C 9. Thank you for consultative opportunity
[2017-09-06 11:03] LABS: INR 1.79 (0.82-1.09); PROTHROMBIN TIME (PATIENT) 20.2 SEC (9.7-13.0)
[2017-09-06] MEDS: NICOTINE 14 MG/24 HOURS TOPICAL PATCH TD SCH (11:54)
[2017-09-06] MEDS: ATORVASTATIN CA 40 MG TABLET (FP) PO SCH (11:54)
[2017-09-06] MEDS: ASPIRIN COATED 81 MG TABLET.EC PO SCH (11:54)
[2017-09-06] MEDS: CARVEDILOL 6.25 MG TABLET (FP) PO SCH ×2 (11:56→22:04)
[2017-09-06] MEDS ORDERED: HEPARIN NA (PORCINE) 5,000 UNITS/ML 1ML VIAL IVPUSH PRN (12:01)
[2017-09-06] MEDS ORDERED: HEPARIN - 25,000 UNIT in SODIUM CHLORIDE 495 ML IV SCH (12:15)
--- NOTE | 2017-09-06 15:47 | PN ---
Progress Note (short form) - Note Progress Note: 77M h/o occlusion of the left SFA, seen at bedside. Pt complaining of Left leg pain. CBC, BMP 09/06/17 06:00 09/06/17 06:00 Last Vital Signs Temp Pulse Resp BP Pulse Ox 98.4 F 101 H 18 135/72 96 09/06/17 15:14 09/06/17 15:14 09/06/17 15:14 09/06/17 15:14 09/05/17 21:00 PE: Pt refused physical exam. Problem List - Problems (1) Demand ischemia Assessment/Plan: Plan -INR down to 1.[address] on heparin for anticoagulation. Creat 1.6 -will attempt to schedule pt for angiogram tomorrow or monday. - Will discuss with Dr. Rico Code(s): I24.8 - OTHER FORMS OF ACUTE ISCHEMIC HEART DISEASE
--- NOTE | 2017-09-06 16:07 | PN ---
Teaching Attending Note Name of Resident: Jazzmine Forde ATTENDING PHYSICIAN STATEMENT I saw and evaluated the patient. I reviewed the resident's note and discussed the case with the resident. I agree with the resident's findings and plan as documented. SUBJECTIVE:refused interview and exam ASSESSMENT AND PLAN: 77 y/o man with h/o PAD, CAD, HTN, hypertrophic cardiomyopathy, b/l SFA occlsion s/p thrombectomy, A fib, non compliance and other medical problems who presented with foot painand was found to have L LE arterial occlusion 1- acute Limb ischemia : L SFA , popliteal, and posterior tibial arteries occlusion . unfortunately refused exam -INR 1,.7 . start heparin gtt . - Cr NL. needs angiogram. vascular notified 2- MELITA: likely prerenal, might have some degree of CKD. - cr improved with IVF - monitor and cont IVF 3- A fib : cont coreg and heparin gtt . f/u wit card as out pt 4- CAD: last cath with non obstructive disease . -cont lipitpr , asa and coreg 5-Nicotine dependence : cont patch dispo : OC
[2017-09-06] MEDS: HEPARIN SOD,PORK IN 0.45% NACL 25,000 UNITS/500 ML INFUS.BAG IVPB SCH (16:51)
[2017-09-06] MEDS: SODIUM CHLORIDE 1,000 ML IV SCH ×2 (16:53→22:00)
--- NOTE | 2017-09-06 17:01 | PN ---
Progress Note (short form) - Note Progress Note: Vascular surgery Will do Left lower ext angiogram on monday afternoon. Cont IV heparin. Cr coming down nicely. Garrett Rico DO
--- NOTE | 2017-09-06 18:03 | PN ---
Physical Exam: SUBJECTIVE: Patient seen and examined at bedside. No acute events overnight. This AM, pt lethargic and confused. However, without physical complaint. Denies CLAROS, fever, chills, SOB, chest pain or pressure, or changes in urinary or bowel function. OBJECTIVE: Vital Signs Period Temp Pulse Resp BP Sys/Ariza Pulse Ox Last 24 Hr 98.2 F-98.7 F 84-101 16-20 113-145/60-76 96 GENERAL: The patient is lethargic. AAOx2 (self and place), in no acute distress. HEAD: Normal with no signs of trauma. EYES: PERRL, extraocular movements intact, sclera anicteric, conjunctiva clear. ENT: Ears normal, nares patent, oropharynx clear without exudates, moist mucous membranes. NECK: Trachea midline, supple. LUNGS: Breath sounds equal, clear to auscultation bilaterally, no wheezes, no crackles, no accessory muscle use. HEART: Regular rate and rhythm- sinus, S1, S2 without murmur, rub or gallop. ABDOMEN: Soft, nontender, nondistended, normoactive bowel sounds, no guarding EXTREMITIES: LLE - unable to appreciate dp or pt pulses. Mottled LLE, tender forefoot- unchanged. 1+ pulses dp, pt RLE, however faint. NEUROLOGICAL: Cranial nerves II through XII grossly intact. PSYCH: Confused SKIN: Warm, dry, normal turgor Laboratory Results - last 24 hr 09/06/17 09/06/17 09/06/17 06:00 06:00 09:50 WBC 9.4 RBC 3.34 L Hgb 10.5 L Hct 31.1 L MCV 93.1 MCH 31.4 MCHC 33.7 RDW 15.4 Plt Count 321 MPV 8.4 Neutrophils % 74.8 Lymphocytes % 13.5 Monocytes % 10.6 H Eosinophils % 0.7 Basophils % 0.4 Nucleated RBC % 0 PT with INR 20.20 H INR 1.79 H D Sodium 141 Potassium 5.0 Chloride 110 H Carbon Dioxide 24 Anion Gap 7 L BUN 16 Creatinine 1.3 Random Glucose 90 Calcium 7.8 L Phosphorus 3.3 D Magnesium 2.2 Active Medications Generic Name Dose Route Start Last Admin Trade Name Freq PRN Reason Stop Dose Admin Acetaminophen 650 mg 09/02/17 20:32 09/04/17 02:32 Tylenol - PO 650 mg Q6H PRN Administration FEVER Aspirin 81 mg 09/02/17 10:00 09/06/17 11:54 Ecotrin - PO 81 mg DAILY CHELLY Administration Atorvastatin Calcium 40 mg 09/02/17 10:00 09/06/17 11:54 Lipitor - PO 40 mg DAILY CHELLY Administration Carvedilol 6.25 mg 09/06/17 22:00 Coreg - PO BID CHELLY Heparin Sodium (Porcine) 1,000 unit 09/06/17 12:01 Heparin - IVPUSH PRN PRN Heparin Heparin Sodium (Porcine) 5,000 unit 09/06/17 12:01 Heparin - IVPUSH PRN PRN Heparin Sodium Chloride 1,000 mls @ 100 mls/hr 09/02/17 18:30 09/06/17 16:53 Normal Saline - IV 100 mls/hr ASDIR CHELLY Administration HEPARIN SOD,PORK IN 0.45% NACL 25,000 units in 500 mls @ 20 mls/hr 09/06/17 12 :23 09/06/17 16:51 Heparin-1/2ns 25,000 Units/500 IVPB 1,000 unit/hr TITR CHELLY 20 mls/hr Administration Protocol 1,000 UNIT/HR Morphine Sulfate 2 mg 09/02/17 06:38 09/06/17 12:13 Morphine Sulfate IVPUSH 2 mg Q4H PRN Administration PAIN LEVEL 4 - 6 Nicotine 14 mg 09/02/17 10:00 09/06/17 11:54 Nicoderm Patch - TD 14 mg DAILY CHELLY Administration IMAGING -09/02/17: Duplex, arterial duplex lower ext: no evidence of DVT in both lower extremities. compared to prior b/l lower extremity duplex arterial US from , in the RLE there is now normal triphasic waveform in the common femoral artery, superficial femoral, popliteal, posterior tibial a. atheromatous plaques are present throughout. in the LLE, there is normal triphasic waveform in L common femoral a. there is no definite flow within the L superficial femoral, popliteal, and posterior tibial a. consistent with occlusion. diffuse atheromatous plaques are present throughout. -09/02/17: CXR: since prior study 09/02/17, new congestive changes with persistently elevated L hemidiaphragm and some bibasilar atelctatic/ infiltrative changes with the L more affected than the R. there may be some L fluid. correlation recommended. -09/02/17: L foot XR: pes planus deformity, exostosis/degenerative change of navicular bone. bunion formation of 1st MTP with extenive arthritic changes. the toes are partially flexed with arthritic changes. no sign of calcaneal spurring. blastic changes are not seen. there appears to be a hypodene/cystic change at the base of the proximal phalynx of the 2nd metatarsal. correlation recommended. if symptoms persist, further imaging and ortho consultation may be needed. Microbiology 09/03/17 10:30 Urine - Urine Clean Catch Urine Culture - Final NO GROWTH OBTAINED 09/02/17 21:40 Blood - Peripheral Venous Blood Culture - Preliminary NO GROWTH OBTAINED AFTER 48 HOURS, INCUBATION TO CONTINUE FOR 3 DAYS. 09/02/17 21:19 Blood - Peripheral Venous Blood Culture - Preliminary NO GROWTH OBTAINED AFTER 48 HOURS, INCUBATION TO CONTINUE FOR 3 DAYS. ASSESSMENT/PLAN: 77 y/o M with PMH alcohol abuse, HTN, CAD, afib (on coumadin), PAD s/p thrombectomy 2016, who presented to the ED with acute L foot pain. Pt admitted for acute L foot pain, r/o ischemia. #Acute L foot pain, r/o ischemia -pt without palpable pt, dp pulses in lower extremities -duplex, arterial duplex lower extremities: no definite flow within the L superficial femoral, popliteal, posterior tibial a -consistent with occlusion -INR 1.79; started on hep gtt (09/06/17) -Continue to follow INR, PTT -improving MELITA, recent Cr 1.3 -as per cardio, before procedure hold diovan, coumadin, aspirin 81mg -D/w Dr. Rico; will go for CTA, procedure - Monday afternoon #MELITA likely 2/2 prerenal -FEna 0.2 -Continue IVF 100 cc/hr -Continue to monitor; once normalizes can undergo CTA. -trending down; recent Cr 1.3 #Afib - currently in sinus -continue coreg 6.25mg PO BID -F/u with cardiology as outpt #HLD -Continue lipitor 40mg PO qd -F/u lipid panel #Smoking cessation -Continue nicotine patch 14mg TD daily #Supratherapeutic INR-resolved #Possible cellulitis-resolved -received clinda -currently monitoring off abx -ucx, blood cx - NGTD #F/E/N Encourage PO intake Continue to follow lytes Low Na controlled diet #PPX -DVT: on hep gtt #Dispo -cont'd monitoring on med surg -for vascular intervention - Monday -will need outpatient DC cardioversion 3-4 weeks after on a/c -as well as cardio f/u Visit type - Emergency Visit Emergency Visit: No - New Patient This patient is new to me today: No - Critical Care Critical Care patient: No
[2017-09-07] MEDS: morphine SULFATE 4 MG/ML VIAL IVPUSH PRN ×2 (03:12→17:11)
[2017-09-07 07:09] LABS: CHLORIDE 110 mmol/L (98-107); POTASSIUM 5.4 mmol/L (3.5-5.1); SODIUM 141 mmol/L (136-145)
[2017-09-07 07:20] LABS: ANION GAP 4 (8-16); CALCIUM 7.7 mg/dL (8.5-10.1); CHOLESTEROL 76 mg/dL (50-200); CO2 27 mmol/L (21-32); CREATININE 1.3 mg/dL (0.7-1.3); GLUCOSE,RANDOM 94 mg/dL (74-106); HDL CHOLESTEROL 23 mg/dL (40-60); MAGNESIUM 2.1 mg/dL (1.8-2.4); PHOSPHOROUS 3.5 mg/dL (2.5-4.9); TRIGLYCERIDES 120 mg/dL (35-160)
[2017-09-07 07:29] LABS: BLOOD UREA NITROGEN 14 mg/dL (7-18)
--- NOTE | 2017-09-07 09:15 | PN ---
Progress Note, Physician History of Present Illness: Awaiting LLE angio for left CLI now that INR and Cr acceptable. - Current Medication List Current Medications: Active Medications Acetaminophen (Tylenol -) 650 mg PO Q6H PRN PRN Reason: FEVER Last Admin: 09/04/17 02:32 Dose: 650 mg Aspirin (Ecotrin -) 81 mg PO DAILY [facility] Last Admin: 09/06/17 11:54 Dose: 81 mg Atorvastatin Calcium (Lipitor -) 40 mg PO DAILY [facility] Last Admin: 09/06/17 11:54 Dose: 40 mg Carvedilol (Coreg -) 6.25 mg PO BID [facility] Last Admin: 09/06/17 22:04 Dose: 6.25 mg Heparin Sodium (Porcine) (Heparin -) 1,000 unit IVPUSH PRN PRN PRN Reason: Heparin Heparin Sodium (Porcine) (Heparin -) 5,000 unit IVPUSH PRN PRN PRN Reason: Heparin Sodium Chloride (Normal Saline -) 1,000 mls @ 100 mls/hr IV ASDIR [facility] Last Admin: 09/06/17 22:00 Dose: Not Given HEPARIN SOD,PORK IN 0.45% NACL (Heparin-1/2ns 25,000 Units/500) 25,000 units in 500 mls @ 20 mls/hr IVPB TITR [facility]; Protocol Last Admin: 09/06/17 16:51 Dose: 1,000 unit/hr, 20 mls/hr Morphine Sulfate (Morphine Sulfate) 2 mg IVPUSH Q4H PRN PRN Reason: PAIN LEVEL 4 - 6 Last Admin: 09/07/17 03:12 Dose: 2 mg Nicotine (Nicoderm Patch -) 14 mg TD DAILY [facility] Last Admin: 09/06/17 11:54 Dose: 14 mg - Objective Vital Signs: Vital Signs Temperature 97.9 F 09/07/17 06:00 Pulse Rate 90 09/07/17 06:00 Respiratory Rate 18 09/07/17 06:00 Blood Pressure 110/60 09/07/17 06:00 O2 Sat by Pulse Oximetry (%) 96 09/06/17 21:00 Constitutional: Yes: No Distress, Calm Neck: Yes: Supple Cardiovascular: Yes: Pulse Irregular Respiratory: Yes: Regular, CTA Bilaterally Gastrointestinal: Yes: Normal Bowel Sounds, Soft Edema: No Labs: CBC, BMP 09/06/17 06:00 09/07/17 06:20 INR, PTT INR 1.79 (0.82-1.09) H D 09/06/17 09:50 Problem List - Problems (1) Pre-procedural cardiovascular examination Code(s): Z01.810 - ENCOUNTER FOR PREPROCEDURAL CARDIOVASCULAR EXAMINATION (2) Oignb-yf-vwcuejr kidney injury Code(s): N17.9 - ACUTE KIDNEY FAILURE, UNSPECIFIED; N18.9 - CHRONIC KIDNEY DISEASE, UNSPECIFIED Qualifiers: Chronic kidney disease stage: stage 2 (mild) (3) Demand ischemia Code(s): I24.8 - OTHER FORMS OF ACUTE ISCHEMIC HEART DISEASE (4) Anticoagulant long-term use Code(s): Z79.01 - PHARMACOLOGY PROFESSOR (CURRENT) USE OF ANTICOAGULANTS (5) Coronary artery disease Code(s): I25.10 - ATHSCL HEART DISEASE OF [place] CORONARY ARTERY W/O ANG PCTRS Qualifiers: Coronary Disease-Associated Artery/Lesion type: [place] artery [place] vs. transplanted heart: [place] heart Associated angina: without angina Qualified Code(s): I25.10 - Atherosclerotic heart disease of [place] coronary artery without angina pectoris (6) Diastolic dysfunction without heart failure Code(s): I51.9 - HEART DISEASE, UNSPECIFIED (7) HTN (hypertension) Code(s): I10 - ESSENTIAL (PRIMARY) HYPERTENSION Qualifiers: Hypertension type: essential hypertension Qualified Code(s): I10 - Essential (primary) hypertension (8) Hypertrophic cardiomyopathy Code(s): I42.2 - OTHER HYPERTROPHIC CARDIOMYOPATHY (9) Peripheral arterial disease Code(s): I73.9 - PERIPHERAL VASCULAR DISEASE, UNSPECIFIED (10) Atrial flutter Code(s): I48.92 - UNSPECIFIED ATRIAL FLUTTER Qualifiers: Atrial flutter type: typical Qualified Code(s): I48.3 - Typical atrial flutter (11) Vascular occlusion Code(s): I99.8 - OTHER DISORDER OF CIRCULATORY SYSTEM Assessment/Plan R&LHc at [facility] 04/20/2016 showing nonobstructive CAD, severe LV apical hypertrophic cardiomyopathy, mildly elevated right sided pressures, Mynx deployed right DEMI CHEF access site. 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 1. PAD with left limb ischemia referable to SFA occlusion 2. History of bilateral SFA occlusion post thrombectomy, most likely embolic disease related to persistent atrial fibrillation with [id number] score of 6, history of poor compliance with therapy administration and medical F/U 3. CAD with demand ischemic injury, non [facility] angina pector[facility] 4. LV diastolic dysfunction related to apical hypertrophic cardiomyopathy, chronic class I-II NYHA classification, compensated/euvolemic 5. Persistent atrial flutter [id number] score of 6 on Coumadin therapy, with subtherapeutic INR 6. HTN 7. Acute on CKD improving 8. Poor compliance with medical therapy administration and medical F/U 9. Tobacco abuse 10. H/o food anaphylaxis PLAN: 1. Given cardiac cath 04/20/2016 showing nonobstructive CAD without new sxs suggestive of acute coronary syndrome, decompensated CHF or malignant arrhythmia , may proceed with endovascular and open peripheral intervention as clinically warranted without further testing now that INR and Cr acceptable. 2. Hold coumadin pre-procedure, but resume once post-op hemostasis assured given [id number] score 6, placed on heparin gtt with INR<2.0 3. Continue Carvedilol 6.25 bid 4. Judicious hydration and hold Diovan 80 qd pending renal fxn stabilization 5. Continue ASA 81 qd 6. Continue Lipitor 40 qhs 7. Counselled smoking cessation and abstinence 8. Will consider outpatient DCCV for the above noted atrial arrhythmia after 3- 4 weeks of adequate A/C
[2017-09-07 09:58] LABS: INR 1.46 (0.82-1.09); PROTHROMBIN TIME (PATIENT) 16.5 SEC (9.7-13.0)
[2017-09-07] MEDS: ATORVASTATIN CA 40 MG TABLET (FP) PO SCH (11:10)
[2017-09-07] MEDS: CARVEDILOL 6.25 MG TABLET (FP) PO SCH ×2 (11:10→21:02)
[2017-09-07] MEDS: NICOTINE 14 MG/24 HOURS TOPICAL PATCH TD SCH (11:10)
[2017-09-07] MEDS: ASPIRIN COATED 81 MG TABLET.EC PO SCH (11:10)
--- NOTE | 2017-09-07 12:29 | PN ---
Teaching Attending Note Name of Resident: Jazzmine Forde ATTENDING PHYSICIAN STATEMENT I saw and evaluated the patient. I reviewed the resident's note and discussed the case with the resident. I agree with the resident's findings and plan as documented. patient Refused interview and exam again today ASSESSMENT AND PLAN: 77 y/o man with h/o PAD, CAD, HTN, hypertrophic cardiomyopathy, b/l SFA occlsion s/p thrombectomy, A fib, non compliance and other medical problems who presented with foot pain and was found to have L LE arterial occlusion 1- Acute Limb ischemia : L SFA , popliteal, and posterior tibial arteries occlusion . Continue to refuse exam - INR 1.4. cont heparin gtt - Cr NL. - angio to left LE tomorrow - LDl 51. connt lipitor 2- MELITA: likely prerenal, might have some degree of CKD. - cr improved with IVF. cont 3- A fib : cont coreg and heparin gtt . f/u wit card as out pt 4- CAD: last cath with non obstructive disease . -cont lipitpr , asa and coreg 5-Nicotine dependence : cont patch dispo : HLOC
[2017-09-07 13:11] LABS: ANION GAP 6 (8-16); BLOOD UREA NITROGEN 14 mg/dL (7-18); CALCIUM 7.9 mg/dL (8.5-10.1); CHLORIDE 108 mmol/L (98-107); CO2 26 mmol/L (21-32); GLUCOSE,RANDOM 95 mg/dL (74-106); SODIUM 140 mmol/L (136-145)
[2017-09-07 13:13] LABS: CREATININE 1.2 mg/dL (0.7-1.3)
[2017-09-07] MEDS: HEPARIN NA (PORCINE) 5,000 UNITS/ML 1ML VIAL IVPUSH PRN ×2 (15:05→23:42)
--- NOTE | 2017-09-07 15:49 | PN ---
Physical Exam: SUBJECTIVE: Patient seen and examined at bedside. Overnight, pt with mood swings. As per nurse, pt acting bizarre, ripping out IV and handing it to her. Today, pt continues to be confused. States that his LLE pain is unchanged. Denies CLAROS, fever, chills, SOB, chest pain or pressure, or changes in urinary or bowel function. OBJECTIVE: Vital Signs Period Temp Pulse Resp BP Sys/Ariza Pulse Ox Last 24 Hr 97.9 F-98.2 F 70-96 16-18 110-140/60-84 96 GENERAL: The patient is sitting comfortably. awake, alert, and fully oriented, in no acute distress. HEAD: Normal with no signs of trauma. EYES: PERRL, extraocular movements intact, sclera anicteric, conjunctiva clear. ENT: Ears normal, nares patent, oropharynx clear without exudates, moist mucous membranes. NECK: Trachea midline, supple. LUNGS: Breath sounds equal, clear to auscultation bilaterally, no wheezes, no crackles, no accessory muscle use. HEART: Regular rate and rhythm, S1, S2 without murmur, rub or gallop. ABDOMEN: Soft, nontender, nondistended, normoactive bowel sounds, no guarding, no rebound EXTREMITIES: without palpable LLE pulses, +LLE-mottled, painful forefoot. would not allow ROM NEUROLOGICAL: Cranial nerves II through XII grossly intact. Normal speech PSYCH: confused SKIN: Warm, dry, normal turgor, no rashes or lesions noted Laboratory Results - last 24 hr 09/07/17 09/07/17 09/07/17 06:20 09:15 10:28 PT with INR 16.50 H INR 1.46 H PTT (Actin FS) 41.7 H Sodium 141 Potassium 5.4 H Chloride 110 H Carbon Dioxide 27 Anion Gap 4 L BUN 14 Creatinine 1.3 Random Glucose 94 Calcium 7.7 L Phosphorus 3.5 Magnesium 2.1 Triglycerides 120 D Cholesterol 76 D Total LDL Cholesterol 51 D HDL Cholesterol 23 L D 09/07/17 12:20 PT with INR Sodium 140 Potassium 5.0 Chloride 108 H Carbon Dioxide 26 Anion Gap 6 L BUN 14 Creatinine 1.2 Random Glucose 95 Calcium 7.9 L Phosphorus HDL Cholesterol Active Medications Generic Name Dose Route Start Last Admin Trade Name Freq PRN Reason Stop Dose Admin Acetaminophen 650 mg 09/02/17 20:32 09/04/17 02:32 Tylenol - PO 650 mg Q6H PRN Administration FEVER Aspirin 81 mg 09/02/17 10:00 09/07/17 11:10 Ecotrin - PO 81 mg DAILY [facility] Administration Atorvastatin Calcium 40 mg 09/02/17 10:00 09/07/17 11:10 Lipitor - PO 40 mg DAILY [facility] Administration Carvedilol 6.25 mg 09/06/17 22:00 09/07/17 11:10 Coreg - PO 6.25 mg BID [facility] Administration Heparin Sodium (Porcine) 1,000 unit 09/06/17 12:01 09/07/17 15:05 Heparin - IVPUSH 1,000 unit PRN PRN Administration Heparin Heparin Sodium (Porcine) 5,000 unit 09/06/17 12:01 Heparin - IVPUSH PRN PRN Heparin Sodium Chloride 1,000 mls @ 100 mls/hr 09/02/17 18:30 09/06/17 22:00 Normal Saline - IV Not Given ASDIR [facility] HEPARIN SOD,PORK IN 0.45% NACL 25,000 units in 500 mls @ 20 mls/hr 09/06/17 12 :23 09/06/17 16:51 Heparin-1/2ns 25,000 Units/500 IVPB 1,000 unit/hr TITR CHELLY 20 mls/hr Administration Protocol 1,000 UNIT/HR Morphine Sulfate 2 mg 09/02/17 06:38 09/07/17 03:12 Morphine Sulfate IVPUSH 2 mg Q4H PRN Administration PAIN LEVEL 4 - 6 Nicotine 14 mg 09/02/17 10:00 09/07/17 11:10 Nicoderm Patch - TD Not Given DAILY [facility] IMAGING -09/02/17: Duplex, arterial duplex lower ext: no evidence of DVT in both lower extremities. compared to prior b/l lower extremity duplex arterial US from , in the RLE there is now normal triphasic waveform in the common femoral artery, superficial femoral, popliteal, posterior tibial a. atheromatous plaques are present throughout. in the LLE, there is normal triphasic waveform in L common femoral a. there is no definite flow within the L superficial femoral, popliteal, and posterior tibial a. consistent with occlusion. diffuse atheromatous plaques are present throughout. -09/02/17: CXR: since prior study 09/02/17, new congestive changes with persistently elevated L hemidiaphragm and some bibasilar atelctatic/ infiltrative changes with the L more affected than the R. there may be some L fluid. correlation recommended. -09/02/17: L foot XR: pes planus deformity, exostosis/degenerative change of navicular bone. bunion formation of 1st MTP with extenive arthritic changes. the toes are partially flexed with arthritic changes. no sign of calcaneal spurring. blastic changes are not seen. there appears to be a hypodene/cystic change at the base of the proximal phalynx of the 2nd metatarsal. correlation recommended. if symptoms persist, further imaging and ortho consultation may be needed. Microbiology 09/03/17 10:30 Urine - Urine Clean Catch Urine Culture - Final NO GROWTH OBTAINED 09/02/17 21:40 Blood - Peripheral Venous Blood Culture - Preliminary NO GROWTH OBTAINED AFTER 96 HOURS, INCUBATION TO CONTINUE FOR 1 DAYS. 09/02/17 21:19 Blood - Peripheral Venous Blood Culture - Preliminary NO GROWTH OBTAINED AFTER 96 HOURS, INCUBATION TO CONTINUE FOR 1 DAYS. ASSESSMENT/PLAN: 77 y/o M with PMH alcohol abuse, HTN, CAD, afib (on coumadin), PAD s/p thrombectomy 2016, who presented to the ED with acute L foot pain. Pt admitted for acute L foot pain, r/o ischemia. #Acute L foot pain, r/o ischemia -pt without palpable pt, dp pulses in lower extremities -duplex, arterial duplex lower extremities: no definite flow within the L superficial femoral, popliteal, posterior tibial a -consistent with occlusion -current INR 1.46; on hep gtt (started 09/06/17) -Continue to follow INR, PTT -improving MELITA, recent Cr 1.3 -as per cardio, before procedure hold diovan, coumadin, aspirin 81mg -D/w Dr. Rico; will go for CTA, procedure - Monday afternoon #MELITA likely 2/2 prerenal -FEna 0.2 -Continue IVF 100 cc/hr -Continue to monitor; once normalizes can undergo CTA. -trending down; recent Cr 1.2 #Hyperkalemia- resolving -Initial K 5.4, has improved to 5 -will continue to monitor level #Afib - currently in sinus -continue coreg 6.25mg PO BID -F/u with cardiology as outpt #HLD -Continue lipitor 40mg PO qd #Smoking cessation -Continue nicotine patch 14mg TD daily #Supratherapeutic INR-resolved #Possible cellulitis-resolved -received clinda -currently monitoring off abx -ucx, blood cx - NGTD #F/E/N Encourage PO intake Continue to follow lytes Low Na controlled diet #PPX -DVT: on hep gtt #Dispo -cont'd monitoring on med surg -for vascular intervention - Monday afternoon -will need outpatient DC cardioversion 3-4 weeks after on a/c -as well as cardio f/u Visit type - Emergency Visit Emergency Visit: No - New Patient This patient is new to me today: No - Critical Care Critical Care patient: No
[2017-09-07] MEDS: HEPARIN - 25,000 UNIT in SODIUM CHLORIDE 495 ML IV SCH (17:55)
[2017-09-07] MEDS: SODIUM CHLORIDE 1,000 ML IV SCH (21:02)
[2017-09-08] MEDS: morphine SULFATE 4 MG/ML VIAL IVPUSH PRN (03:33)
[2017-09-08] MEDS: SODIUM CHLORIDE 1,000 ML IV SCH ×3 (04:20→16:35)
[2017-09-08 06:59] LABS: HEMATOCRIT 31.9 % (35.4-49); HEMOGLOBIN 10.6 GM/dL (11.7-16.9); MCH 31.2 pg (25.7-33.7); MCHC 33.1 g/dl (32.0-35.9); MEAN CELL VOLUME 94.1 fl (80-96); MEAN PLT VOLUME 8.5 fl (7.5-11.1); PLATELET COUNT 309 K/MM3 (134-434); RBC 3.39 M/mm3 (4.00-5.60); RDW 15.7 % (11.9-15.9)
[2017-09-08 07:17] LABS: ANION GAP 6 (8-16); BLOOD UREA NITROGEN 15 mg/dL (7-18); CALCIUM 7.9 mg/dL (8.5-10.1); CHLORIDE 110 mmol/L (98-107); CO2 24 mmol/L (21-32); CREATININE 1.2 mg/dL (0.7-1.3); GLUCOSE,RANDOM 83 mg/dL (74-106); SODIUM 140 mmol/L (136-145)
[2017-09-08] MEDS: HEPARIN SOD,PORK IN 0.45% NACL 25,000 UNITS/500 ML INFUS.BAG IVPB SCH (10:05)
[2017-09-08] MEDS: ASPIRIN COATED 81 MG TABLET.EC PO SCH (10:07)
[2017-09-08] MEDS: CARVEDILOL 6.25 MG TABLET (FP) PO SCH ×2 (10:07→21:20)
[2017-09-08] MEDS: ATORVASTATIN CA 40 MG TABLET (FP) PO SCH (10:08)
[2017-09-08] MEDS: NICOTINE 14 MG/24 HOURS TOPICAL PATCH TD SCH ×2 (10:08)
[2017-09-08 10:10] LABS: INR 1.4 (0.82-1.09); PROTHROMBIN TIME (PATIENT) 15.8 SEC (9.7-13.0)
--- NOTE | 2017-09-08 11:13 | PN ---
Progress Note, Physician History of Present Illness: Awaiting LLE angio for left CLI now that INR and Cr acceptable. - Current Medication List Current Medications: Active Medications Acetaminophen (Tylenol -) 650 mg PO Q6H PRN PRN Reason: FEVER Last Admin: 09/04/17 02:32 Dose: 650 mg Aspirin (Ecotrin -) 81 mg PO DAILY [facility] Last Admin: 09/08/17 10:07 Dose: 81 mg Atorvastatin Calcium (Lipitor -) 40 mg PO DAILY [facility] Last Admin: 09/08/17 10:08 Dose: 40 mg Carvedilol (Coreg -) 6.25 mg PO BID [facility] Last Admin: 09/08/17 10:07 Dose: 6.25 mg Heparin Sodium (Porcine) (Heparin -) 1,000 unit IVPUSH PRN PRN PRN Reason: Heparin Last Admin: 09/07/17 23:42 Dose: 1,000 unit Heparin Sodium (Porcine) (Heparin -) 5,000 unit IVPUSH PRN PRN PRN Reason: Heparin Sodium Chloride (Normal Saline -) 1,000 mls @ 100 mls/hr IV ASDIR [facility] Last Admin: 09/08/17 04:20 Dose: 100 mls/hr Heparin Sodium (Porcine) 25, (000 unit/ Sodium Chloride) 500 mls @ 20 mls/hr IV TITR CHELLY; Protocol Last Titration: 09/08/17 07:39 Dose: 1,300 unit/hr, 26 mls/hr Morphine Sulfate (Morphine Sulfate) 2 mg IVPUSH Q4H PRN PRN Reason: PAIN LEVEL 4 - 6 Last Admin: 09/08/17 03:33 Dose: 2 mg Nicotine (Nicoderm Patch -) 14 mg TD DAILY [facility] Last Admin: 09/08/17 10:08 Dose: Not Given - Objective Vital Signs: Vital Signs Temperature 98.8 F 09/08/17 10:00 Pulse Rate 85 09/08/17 10:00 Respiratory Rate 20 09/08/17 10:00 Blood Pressure 138/77 09/08/17 10:00 O2 Sat by Pulse Oximetry (%) 96 09/06/17 21:00 Constitutional: Yes: No Distress, Calm, Thin Neck: Yes: Supple Cardiovascular: Yes: Regular Rate and Rhythm Respiratory: Yes: Regular, CTA Bilaterally Gastrointestinal: Yes: Normal Bowel Sounds, Soft Edema: No Labs: CBC, BMP 09/08/17 06:10 09/08/17 06:10 INR, PTT INR 1.40 (0.82-1.09) H 09/08/17 09:30 Problem List - Problems (1) Pre-procedural cardiovascular examination Code(s): Z01.810 - ENCOUNTER FOR PREPROCEDURAL CARDIOVASCULAR EXAMINATION (2) [id number] kidney injury Code(s): N17.9 - ACUTE KIDNEY FAILURE, UNSPECIFIED; N18.9 - CHRONIC KIDNEY DISEASE, UNSPECIFIED Qualifiers: Chronic kidney disease stage: stage 2 (mild) (3) Demand ischemia Code(s): I24.8 - OTHER FORMS OF ACUTE ISCHEMIC HEART DISEASE (4) Anticoagulant long-term use Code(s): Z79.01 - DETENTION (CURRENT) USE OF ANTICOAGULANTS (5) Coronary artery disease Code(s): I25.10 - ATHSCL HEART DISEASE OF [place] CORONARY ARTERY W/O ANG PCTRS Qualifiers: Coronary Disease-Associated Artery/Lesion type: [place] artery [place] vs. transplanted heart: [place] heart Associated angina: without angina Qualified Code(s): I25.10 - Atherosclerotic heart disease of [place] coronary artery without angina pectoris (6) Diastolic dysfunction without heart failure Code(s): I51.9 - HEART DISEASE, UNSPECIFIED (7) HTN (hypertension) Code(s): I10 - ESSENTIAL (PRIMARY) HYPERTENSION Qualifiers: Hypertension type: essential hypertension Qualified Code(s): I10 - Essential (primary) hypertension (8) Hypertrophic cardiomyopathy Code(s): I42.2 - OTHER HYPERTROPHIC CARDIOMYOPATHY (9) Peripheral arterial disease Code(s): I73.9 - PERIPHERAL VASCULAR DISEASE, UNSPECIFIED (10) Atrial flutter Code(s): I48.92 - UNSPECIFIED ATRIAL FLUTTER Qualifiers: Atrial flutter type: typical Qualified Code(s): I48.3 - Typical atrial flutter (11) Vascular occlusion Code(s): I99.8 - OTHER DISORDER OF CIRCULATORY SYSTEM Assessment/Plan R&LHc at [facility] 04/20/2016 showing nonobstructive CAD, severe LV apical hypertrophic cardiomyopathy, mildly elevated right sided pressures, Mynx deployed right COM WRITER access site. 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 1. PAD with left limb ischemia referable to SFA occlusion 2. History of bilateral SFA occlusion post thrombectomy, most likely embolic disease related to persistent atrial fibrillation with [id number] score of 6, history of poor compliance with therapy administration and medical F/U 3. CAD with demand ischemic injury, non obstructive CAD on R&c coronary angiogrpahy angina pectoris 4. LV diastolic dysfunction related to apical hypertrophic cardiomyopathy, chronic class I-II NYHA classification, compensated/euvolemic 5. Persistent atrial flutter [id number] score of 6 on Coumadin therapy, with subtherapeutic INR 6. HTN 7. Acute on CKD improving 8. Poor compliance with medical therapy administration and medical F/U 9. Tobacco abuse 10. H/o food anaphylaxis PLAN: 1. Given cardiac cath 04/20/2016 showing nonobstructive CAD without new sxs suggestive of acute coronary syndrome, decompensated CHF or malignant arrhythmia , may proceed with endovascular and open peripheral intervention as clinically warranted without further testing now that INR and Cr acceptable. 2. Hold coumadin pre-procedure, but resume once post-op hemostasis assured given [id number] score 6, placed on heparin gtt with INR<2.0 3. Continue Carvedilol 6.25 bid 4. Judicious hydration and hold Diovan 80 qd pending renal fxn stabilization 5. Continue ASA 81 qd 6. Continue Lipitor 40 qhs 7. Counselled smoking cessation and abstinence 8. Will consider outpatient DCCV for the above noted atrial arrhythmia after 3- 4 weeks of adequate A/C
[2017-09-08] MEDS: HEPARIN - 25,000 UNIT in SODIUM CHLORIDE 495 ML IV SCH ×2 (13:57→16:35)
[2017-09-08] MEDS ORDERED: HEPARIN NA (PORCINE) 5,000 UNITS/ML 1ML VIAL ONE (14:02)
[2017-09-08] MEDS ORDERED: LIDOCAINE HCL 1%, 10 MG/ML (20ML VIAL) ONE (14:02)
[2017-09-08] MEDS ORDERED: MIDAZOLAM HCL 2 MG/2 ML SINGLE DOSE VIAL ONE ×2 (14:59)
[2017-09-08] MEDS ORDERED: ceFAZolin SODIUM 1 GM VIAL ONE (15:05)
[2017-09-08] MEDS ORDERED: ceFAZolin SODIUM 1 GM VIAL IVPB ONE (15:06)
--- NOTE | 2017-09-08 15:10 | PN ---
Teaching Attending Note Name of Resident: Jazzmine Forde ATTENDING PHYSICIAN STATEMENT I saw and evaluated the patient. I reviewed the resident's note and discussed the case with the resident. I agree with the resident's findings and plan as documented. Refused my interview and exam today again OBJECTIVE: 77 y/o man with h/o PAD, CAD, HTN, hypertrophic cardiomyopathy, b/l SFA occlsion s/p thrombectomy, A fib, non compliance and other medical problems who presented with foot pain and was found to have L LE arterial occlusion 1- Acute Limb ischemia : L SFA , popliteal, and posterior tibial arteries occlusion . Continue to refuse exam - for Angiogram today - cont lipitor. - when OK with surgery, will resume heparin and bridge to coumadin 2- MELITA: likely prerenal, might have some degree of CKD. - cr improved with IVF. cont for now especially with contrast administration today 3- A fib : cont coreg and heparin gtt . f/u wit card as out pt 4- CAD: last cath with non obstructive disease . -cont lipitpr , asa and coreg 5-Nicotine dependence : cont patch dispo : HLOC
[2017-09-08] MEDS ORDERED: LIDOCAINE HCL 1%, 10 MG/ML (20ML VIAL) INF ONE (15:14)
[2017-09-08] MEDS ORDERED: HEPARIN INFUSION - 25,000 UNITS/500 ML INFUS.BAG IVPB ONE (15:57)
[2017-09-08] MEDS ORDERED: PROPOFOL 20 ML ONE ×2 (16:00→16:40)
[2017-09-08] MEDS ORDERED: ALTEPLASE 50MG 25 MG in SODIUM CHLORIDE 250 ML IVPB ONE ×2 (16:15→17:44)
[2017-09-08] MEDS ORDERED: ONDANSETRON 4 MG/2 ML VIAL IVPUSH PRN ×2 (16:51→17:44)
[2017-09-08] MEDS ORDERED: oxyCODONE HCL 5 MG TABLET PO PRN ×2 (16:51→17:44)
[2017-09-08] MEDS ORDERED: PROMETHAZINE HCL 25 MG/1 ML VIAL IVPB PRN ×2 (16:51→17:44)
[2017-09-08] MEDS ORDERED: LACTATED RINGERS SOLUTION 1,000 ML IV SCH ×2 (17:00→17:44)
--- NOTE | 2017-09-08 17:00 | OP ---
Operative Note - Note: Operative Date: 09/08/17 Pre-Operative Diagnosis: LLE ischemia Operation: Aortogram, LLE angiogram, Thrombolysis Findings: thrombosis LLe Post-Operative Diagnosis: Same as Pre-op Surgeon: Garrett Rico Anesthesia: Fractional Estimated Blood Loss (mls): 150 Operative Report Dictated: Yes
[2017-09-08] MEDS ORDERED: morphine SULFATE 4 MG/ML VIAL IVPUSH PRN (17:44)
[2017-09-08] MEDS ORDERED: ACETAMINOPHEN 325 MG TABLET (FP) PO PRN (17:44)
[2017-09-08] MEDS ORDERED: PT OWN MED DRAWER 7, Y5N ONE (18:51)
--- NOTE | 2017-09-08 18:56 | PN ---
Physical Exam: SUBJECTIVE: Patient seen and examined at bedside. Overnight, pt requesting morphine for pain. This AM, pt with continued LLE pain that is unchanged. Went to OR today with Dr. Rico; pt with extensive clot, received tPA and hep gtt simultaneously while in PACU. Will return to OR tomorrow for continued procedure. OBJECTIVE: Vital Signs Period Temp Pulse Resp BP Sys/Ariza Pulse Ox Last 24 Hr 96.0 F-98.8 F 78-98 12-20 131-160/74-93 96-100 Examination from AM: GENERAL: The patient is awake,confused, in no acute distress. HEAD: Normal with no signs of trauma. EYES: PERRL, extraocular movements intact, sclera anicteric, conjunctiva clear. ENT: Ears normal, nares patent, oropharynx clear without exudates NECK: Trachea midline, supple. LUNGS: Breath sounds equal, clear to auscultation bilaterally HEART: Regular rate and rhythm- in sinus, S1, S2 without murmur, rub or gallop. ABDOMEN: Soft, nontender, nondistended, normoactive bowel sounds EXTREMITIES: non palpable LLE dp pulse, +LLE mottled- increased pain in forefoot NEUROLOGICAL: would not permit assessment PSYCH: Normal mood, normal affect. SKIN: Warm, dry, normal turgor, no rashes or lesions Laboratory Results - last 24 hr 09/07/17 09/08/17 09/08/17 22:30 06:10 06:10 WBC 9.0 RBC 3.39 L Hgb 10.6 L Hct 31.9 L MCV 94.1 MCH 31.2 MCHC 33.1 RDW 15.7 Plt Count 309 MPV 8.5 PT with INR INR PTT (Actin FS) 44.6 H 46.3 H Sodium 09/08/17 09/08/17 09/08/17 06:10 09:30 12:50 RDW PT with INR 15.80 H INR 1.40 H PTT (Actin FS) 55.5 H Sodium 140 Potassium 5.0 Chloride 110 H Carbon Dioxide 24 Anion Gap 6 L BUN 15 Creatinine 1.2 Random Glucose 83 Calcium 7.9 L Active Medications Generic Name Dose Route Start Last Admin Trade Name Freq PRN Reason Stop Dose Admin Acetaminophen 650 mg 09/08/17 17:44 Tylenol - PO Q6H PRN FEVER Aspirin 81 mg 09/09/17 10:00 Ecotrin - PO DAILY [facility] Atorvastatin Calcium 40 mg 09/09/17 22:00 Lipitor - PO HS [facility] Carvedilol 6.25 mg 09/08/17 22:00 Coreg - PO BID [facility] Chlorhexidine Gluconate 1 applic 09/08/17 22:00 Hibiclens For Decolonization - TP HS [facility] Alteplase, Recombinant 25 mg/ 250 mls @ 250 mls/hr 09/08/17 17:44 Sodium Chloride IVPB 09/08/17 18:43 ONCE ONE Lactated Ringer's 1,000 mls @ 75 mls/hr 09/08/17 17:44 Lactated Ringers Solution IV ASDIR [facility] Morphine Sulfate 2 mg 09/08/17 17:44 Morphine Sulfate IVPUSH Q4H PRN PAIN LEVEL 6-10 Mupirocin 1 applic 09/08/17 22:00 Bactroban Ointment (For Decolonization) - NS 09/13/17 21:59 BID [facility] Nicotine 14 mg 09/09/17 10:00 Nicoderm Patch - TD DAILY [facility] Ondansetron HCl 4 mg 09/08/17 17:44 Zofran Injection IVPUSH 09/09/17 03:00 Q6H PRN NAUSEA AND/OR VOMITING Oxycodone HCl 5 mg 09/08/17 17:44 Roxicodone - PO 09/09/17 16:50 Q4H PRN PAIN LEVEL 1-5 Promethazine HCl 12.5 mg 09/08/17 17:44 Phenergan Injection - IVPB 09/09/17 03:00 Q6H PRN NAUSEA-FOR RESCUE AFTER 15 MIN IMAGING -09/02/17: Duplex, arterial duplex lower ext: no evidence of DVT in both lower extremities. compared to prior b/l lower extremity duplex arterial US from , in the RLE there is now normal triphasic waveform in the common femoral artery, superficial femoral, popliteal, posterior tibial a. atheromatous plaques are present throughout. in the LLE, there is normal triphasic waveform in L common femoral a. there is no definite flow within the L superficial femoral, popliteal, and posterior tibial a. consistent with occlusion. diffuse atheromatous plaques are present throughout. -09/02/17: CXR: since prior study 09/02/17, new congestive changes with persistently elevated L hemidiaphragm and some bibasilar atelctatic/ infiltrative changes with the L more affected than the R. there may be some L fluid. correlation recommended. -09/02/17: L foot XR: pes planus deformity, exostosis/degenerative change of navicular bone. bunion formation of 1st MTP with extenive arthritic changes. the toes are partially flexed with arthritic changes. no sign of calcaneal spurring. blastic changes are not seen. there appears to be a hypodene/cystic change at the base of the proximal phalynx of the 2nd metatarsal. correlation recommended. if symptoms persist, further imaging and ortho consultation may be needed. Microbiology 09/03/17 10:30 Urine - Urine Clean Catch Urine Culture - Final NO GROWTH OBTAINED 09/02/17 21:40 Blood - Peripheral Venous Blood Culture - Preliminary NO GROWTH OBTAINED AFTER 96 HOURS, INCUBATION TO CONTINUE FOR 1 DAYS. 09/02/17 21:19 Blood - Peripheral Venous Blood Culture - Preliminary NO GROWTH OBTAINED AFTER 96 HOURS, INCUBATION TO CONTINUE FOR 1 DAYS. ASSESSMENT/PLAN: 77 y/o M with PMH alcohol abuse, HTN, CAD, afib (on coumadin), PAD s/p thrombectomy 2016, who presented to the ED with acute L foot pain. Pt admitted for acute L foot pain, r/o ischemia. #Acute L foot pain, r/o ischemia -PO Day 0 s/p aortogram, LLE angiogram, thrombolysis -extensive clot needed continuation of hep gtt (started 09/06/17) and tPA -to return to OR tomorrow for procedure -when stable and approved by vasc, will bridge with coumadin -Continue to follow INR, PTT -d/w Dr. Rico #MELITA likely 2/2 prerenal -FEna 0.2 -Continue IV LR 75cc/hr -received contrast for procedure #Hyperkalemia- resolved #Afib - currently in sinus -continue coreg 6.25mg PO BID -F/u with cardiology as outpt #HLD -Continue lipitor 40mg PO qd #Smoking cessation -Continue nicotine patch 14mg TD daily #Supratherapeutic INR-resolved #Possible cellulitis-resolved -received clinda -currently monitoring off abx -ucx, blood cx - NGTD #F/E/N LR 75 cc/hr Continue to follow surya NPO for procedure tomorrow #PPX hep gtt/tPA #Dispo -continued monitoring post-op ICU -will need outpatient DC cardioversion 3-4 weeks after on a/c -as well as cardio f/u Visit type - Emergency Visit Emergency Visit: No - New Patient This patient is new to me today: No - Critical Care Critical Care patient: Yes Total Critical Care Time (in minutes): 45 Critical Care Statement: The care of this patient involved high complexity decision making to prevent further life threatening deterioration of the patient 's condition and/or to evaluate & treat vital organ system(s) failure or risk of failure.
[2017-09-08] MEDS: MUPIROCIN 2% TOPICAL OINTMENT FOR DECOLONIZATION NS SCH (21:20)
[2017-09-08] MEDS ORDERED: CHLORHEXIDINE GLUCONATE 4% CLEANSER FOR DECOLONIZATION TP SCH (22:00)
[2017-09-08 23:57] LABS: HEMATOCRIT 30.5 % (35.4-49); HEMOGLOBIN 10.1 GM/dL (11.7-16.9); MCH 30.5 pg (25.7-33.7); MCHC 33.1 g/dl (32.0-35.9); MEAN CELL VOLUME 92.3 fl (80-96); MEAN PLT VOLUME 8.5 fl (7.5-11.1); PLATELET COUNT 306 K/MM3 (134-434); RBC 3.31 M/mm3 (4.00-5.60); RDW 15.6 % (11.9-15.9); WHITE BLOOD COUNT 11.4 K/mm3 (4.0-10.0)
[2017-09-09 00:34] LABS: INR 1.35 (0.82-1.09); PROTHROMBIN TIME (PATIENT) 15.3 SEC (9.7-13.0)
[2017-09-09 00:36] LABS: ACTIVATED PTT 30.2 SECONDS (26.9-34.4)
[2017-09-09 01:07] LABS: ALBUMIN 2.1 g/dl (3.4-5.0); ALK PHOS 113 U/L (45-117); ANION GAP 12 (8-16); BILIRUBIN,TOTAL 0.5 mg/dL (0.2-1.0); BLOOD UREA NITROGEN 16 mg/dL (7-18); CALCIUM 7.9 mg/dL (8.5-10.1); CHLORIDE 110 mmol/L (98-107); CO2 19 mmol/L (21-32); CREATININE 1.1 mg/dL (0.7-1.3); GLUCOSE,RANDOM 70 mg/dL (74-106); SGOT/AST 27 U/L (15-37); SGPT/ALT 42 U/L (12-78); SODIUM 141 mmol/L (136-145); TOT PROT 6.3 g/dl (6.4-8.2)
[2017-09-09 07:48] LABS: HEMOGLOBIN 10.5 GM/dL (11.7-16.9); MCH 30.7 pg (25.7-33.7); MCHC 32.8 g/dl (32.0-35.9); MEAN CELL VOLUME 93.6 fl (80-96); MEAN PLT VOLUME 8.9 fl (7.5-11.1); PLATELET COUNT 257 K/MM3 (134-434); RBC 3.41 M/mm3 (4.00-5.60); RDW 15.8 % (11.9-15.9); WHITE BLOOD COUNT 11.3 K/mm3 (4.0-10.0)
[2017-09-09 07:54] LABS: CHLORIDE 109 mmol/L (98-107); SODIUM 139 mmol/L (136-145)
[2017-09-09] MEDS ORDERED: HEPARIN NA (PORCINE) 5,000 UNITS/ML 1ML VIAL ONE ×2 (08:00→09:09)
[2017-09-09] MEDS ORDERED: LIDOCAINE HCL 1%, 10 MG/ML (20ML VIAL) ONE (08:00)
[2017-09-09 08:11] LABS: ALBUMIN 2.1 g/dl (3.4-5.0); ALK PHOS 109 U/L (45-117); ANION GAP 9 (8-16); BILIRUBIN,TOTAL 0.6 mg/dL (0.2-1.0); BLOOD UREA NITROGEN 16 mg/dL (7-18); CALCIUM 7.6 mg/dL (8.5-10.1); CO2 21 mmol/L (21-32); CREATININE 1.2 mg/dL (0.7-1.3); GLUCOSE,RANDOM 68 mg/dL (74-106); SGPT/ALT 37 U/L (12-78); TOT PROT 6.3 g/dl (6.4-8.2)
--- NOTE | 2017-09-09 08:15 | PN ---
Teaching Attending Note Name of Resident: Mandy Aldana ATTENDING PHYSICIAN STATEMENT I saw and evaluated the patient. I reviewed the resident's note and discussed the case with the resident. I agree with the resident's findings and plan as documented. SUBJECTIVE: No fever or chills, L foot pain is better , denies SOB OBJECTIVE: NAD , cooperative today CV; RRR Lungs: CTAB LE : warm feet. TTP over L forefoot , won't allow L toes exam. DP 1+ on left, non palpable on R. PT not palpable on both sides dry small wound on L dorsal foot ASSESSMENT AND PLAN: 77 y/o man with h/o PAD, CAD, HTN, hypertrophic cardiomyopathy, b/l SFA occlsion s/p thrombectomy, A fib, non compliance and other medical problems who presented with foot pain and was found to have L LE arterial occlusion 1- Acute Limb ischemia: L SFA , popliteal, and posterior tibial arteries occlusion/thrombosis . s/p angio and now on TPA infusion and heprain gtt - cont TPA and heparin and ASA - cont lipitor - vascular f/u 2- MELITA: likely prerenal, might have some degree of CKD. - monitor renal function after IV dye 3- A fib : cont coreg and heparin gtt. f/u wit card as out pt 4- CAD: last cath with non obstructive disease . -cont lipitpr , asa and coreg 5-Nicotine dependence : cont patch dispo : ICU monitoring Critical Care Total Critical Care Time (in minutes): 30 Critical Care Statement: The care of this patient involved high complexity decision making to prevent further life threatening deterioration of the patient 's condition and/or to evaluate & treat vital organ system(s) failure or risk of failure.
[2017-09-09 08:18] LABS: POTASSIUM 5.1 mmol/L (3.5-5.1)
[2017-09-09] MEDS ORDERED: PROMETHAZINE HCL 25 MG/1 ML VIAL IVPUSH PRN ×2 (08:18→10:20)
[2017-09-09] MEDS ORDERED: ONDANSETRON 4 MG/2 ML VIAL IVPUSH PRN ×2 (08:18→10:20)
[2017-09-09 08:19] LABS: SGOT/AST 26 U/L (15-37)
[2017-09-09 08:22] LABS: INR 1.48 (0.82-1.09); PROTHROMBIN TIME (PATIENT) 16.7 SEC (9.7-13.0)
[2017-09-09] MEDS ORDERED: MIDAZOLAM HCL 2 MG/2 ML SINGLE DOSE VIAL ONE (08:28)
[2017-09-09] MEDS ORDERED: PROPOFOL 20 ML ONE (08:29)
[2017-09-09] MEDS ORDERED: LACTATED RINGERS SOLUTION 1,000 ML IV SCH ×2 (08:30→10:20)
[2017-09-09] MEDS ORDERED: SODIUM CHLORIDE 0.9% P/F 10 ML VIAL IJ ONE (09:03)
[2017-09-09] MEDS ORDERED: ceFAZolin SODIUM 1 GM VIAL ONE (09:03)
[2017-09-09] MEDS ORDERED: LIDOCAINE HCL 1%, 10 MG/ML (20ML VIAL) INF ONE ×2 (09:04)
[2017-09-09] MEDS ORDERED: HEPARIN NA (PORCINE) 5,000 UNITS/ML 1ML VIAL SQ ONE ×2 (09:06)
--- NOTE | 2017-09-09 09:23 | PN ---
Physical Exam: SUBJECTIVE: Patient seen and examined by me at bedside. Overnight patient was combative and pulling out his IV lines, as per nurse. Patient states his Left leg pain is better than yesterday but still requires pain control. Otherwise, patient denies fever, chills, nausea, vomiting, chest pain, palpitations, shortness of breath, abdominal pain, acute vision changes, dysuria, hematuria. OBJECTIVE: Vital Signs Period Temp Pulse Resp BP Sys/Ariza Pulse Ox Last 24 Hr 96.0 F-98.8 F 76-98 12-20 122-160/71-106 96-100 GENERAL: The patient is awake,confused, in no acute distress. EYES: Sclera anicteric, conjunctiva clear. LUNGS: Breath sounds equal, clear to auscultation bilaterally HEART: Regular rate and rhythm- in sinus, S1, S2 without murmur, rub or gallop. ABDOMEN: Soft, nontender, nondistended, normoactive bowel sounds EXTREMITIES: non palpable LLE dp pulse or pt, +LLE erythema of the dorsal aspect of the foot with TTP Laboratory Results - last 24 hr CBC, BMP 09/09/17 07:00 09/09/17 07:00 09/09/17 09/09/17 07:00 07:00 INR 1.48 H PTT (Actin FS) 32.2 Fibrinogen 205.0 L D Active Medications Generic Name Dose Route Start Last Admin Trade Name Freq PRN Reason Stop Dose Admin Acetaminophen 650 mg 09/08/17 17:44 09/08/17 21:14 Tylenol - PO 650 mg Q6H PRN Administration FEVER Aspirin 81 mg 09/09/17 10:00 Ecotrin - PO DAILY CHELLY Atorvastatin Calcium 40 mg 09/09/17 22:00 Lipitor - PO HS [facility] Carvedilol 6.25 mg 09/08/17 22:00 09/08/17 21:20 Coreg - PO 6.25 mg BID CHELLY Administration Chlorhexidine Gluconate 1 applic 09/08/17 22:00 09/08/17 21:15 Hibiclens For Decolonization - TP 1 applic HS [facility] Administration Fentanyl 50 mcg 09/09/17 08:18 Sublimaze Injection - IVPUSH [id number] PRN PAIN-PACU ORDER X 4 DOSES ONLY Alteplase, Recombinant 25 mg/ 250 mls @ 10 mls/hr 09/08/17 17:44 09/08/17 21: 20 Sodium Chloride IVPB 09/09/17 18:43 Not Given ONCE ONE Lactated Ringer's 1,000 mls @ 125 mls/hr 09/09/17 08:30 Lactated Ringers Solution IV ASDIR [facility] Morphine Sulfate 2 mg 09/08/17 17:44 09/08/17 22:28 Morphine Sulfate IVPUSH 2 mg Q4H PRN Administration PAIN LEVEL 6-10 Mupirocin 1 applic 09/08/17 22:00 09/08/17 21:20 Bactroban Ointment (For Decolonization) - NS 09/13/17 21:59 1 applic BID [facility] Administration Nicotine 14 mg 09/09/17 10:00 Nicoderm Patch - TD DAILY [facility] Ondansetron HCl 4 mg 09/09/17 08:18 Zofran Injection IVPUSH Q6H PRN NAUSEA AND/OR VOMITING Oxycodone HCl 5 mg 09/08/17 17:44 09/08/17 21:14 Roxicodone - PO 09/09/17 16:50 5 mg Q4H PRN Administration PAIN LEVEL 1-5 Promethazine HCl 12.5 mg 09/09/17 08:18 Phenergan Injection - IVPUSH Q6H PRN NAUSEA-FOR RESCUE AFTER 15 MIN IMAGING -09/02/17: Duplex, arterial duplex lower ext: no evidence of DVT in both lower extremities. compared to prior b/l lower extremity duplex arterial US from , in the RLE there is now normal triphasic waveform in the common femoral artery, superficial femoral, popliteal, posterior tibial a. atheromatous plaques are present throughout. in the LLE, there is normal triphasic waveform in L common femoral a. there is no definite flow within the L superficial femoral, popliteal, and posterior tibial a. consistent with occlusion. diffuse atheromatous plaques are present throughout. -09/02/17: CXR: since prior study 09/02/17, new congestive changes with persistently elevated L hemidiaphragm and some bibasilar atelctatic/ infiltrative changes with the L more affected than the R. there may be some L fluid. correlation recommended. -09/02/17: L foot XR: pes planus deformity, exostosis/degenerative change of navicular bone. bunion formation of 1st MTP with extenive arthritic changes. the toes are partially flexed with arthritic changes. no sign of calcaneal spurring. blastic changes are not seen. there appears to be a hypodene/cystic change at the base of the proximal phalynx of the 2nd metatarsal. correlation recommended. if symptoms persist, further imaging and ortho consultation may be needed. Microbiology 09/03/17 10:30 Urine - Urine Clean Catch Urine Culture - Final NO GROWTH OBTAINED 09/02/17 21:40 Blood - Peripheral Venous Blood Culture - Preliminary NO GROWTH OBTAINED AFTER 96 HOURS, INCUBATION TO CONTINUE FOR 1 DAYS. 09/02/17 21:19 Blood - Peripheral Venous Blood Culture - Preliminary NO GROWTH OBTAINED AFTER 96 HOURS, INCUBATION TO CONTINUE FOR 1 DAYS. ASSESSMENT/PLAN: 77 y/o M with PMH alcohol abuse, HTN, CAD, afib (on coumadin), PAD s/p thrombectomy 2016, who presented to the ED with acute L foot pain. Pt admitted for acute L foot pain, r/o ischemia. #Acute Left Limb Ischemia -PO Day 1 s/p aortogram, LLE angiogram, thrombolysis. -In the OR today for LLE angiogram, SFA angioplasty with stent placement. -Continue with Heparin drip and begin bridging with coumadin tonight with 7.5mg PO -Continue to follow INR, PTT #MELITA likely 2/2 prerenal- Resolved -Discontinue LR due to slightly elevated Potassium. Will give NS @75mls/hr -Continue to monitor BMP #Hyperkalemia- resolved #Afib - currently in sinus -continue coreg 6.25mg PO BID -F/u with cardiology as outpt #HLD -Continue lipitor 40mg PO qd #Smoking cessation -Continue nicotine patch 14mg TD daily #Supratherapeutic INR-resolved #Possible cellulitis-resolved -received clinda -currently monitoring off abx -ucx, blood cx - NGTD #F/E/N NS @75 cc/hr Continue to follow lytes Diabetic sodium controlled diet #PPX hep gtt/tPA #Dispo -S/P LLE angiogram, SFA angioplasty with stent placement. Will need to bridge with heparin and coumadin -Full Code Visit type - Emergency Visit Emergency Visit: Yes ED Registration Date: 09/02/17 Care time: The patient presented to the Emergency Department on the above date and was hospitalized for further evaluation of their emergent condition. - New Patient This patient is new to me today: Yes Date on this admission: 09/09/17 - Critical Care Critical Care patient: Yes Total Critical Care Time (in minutes): 45 Critical Care Statement: The care of this patient involved high complexity decision making to prevent further life threatening deterioration of the patient 's condition and/or to evaluate & treat vital organ system(s) failure or risk of failure.
[2017-09-09] MEDS ORDERED: HEPARIN NA (PORCINE) 5,000 UNITS/ML 1ML VIAL IVPUSH PRN (09:41)
--- NOTE | 2017-09-09 09:44 | OP ---
Operative Note - Note: Operative Date: 09/09/17 Pre-Operative Diagnosis: LLE thrombosis, ischemia Operation: LLE angiogram, SFA angioplasty with stent placement. Findings: PT runoff Post-Operative Diagnosis: Same as Pre-op Surgeon: Garrett Rico Anesthesia: Fractional Estimated Blood Loss (mls): 30 Operative Report Dictated: Yes
[2017-09-09] MEDS ORDERED: ASPIRIN COATED 81 MG TABLET.EC PO SCH (10:00)
[2017-09-09] MEDS ORDERED: NICOTINE 14 MG/24 HOURS TOPICAL PATCH TD SCH (10:00)
[2017-09-09] MEDS ORDERED: oxyCODONE HCL 5 MG TABLET PO PRN (10:20)
[2017-09-09] MEDS ORDERED: ACETAMINOPHEN 325 MG TABLET (FP) PO PRN (10:20)
[2017-09-09] MEDS ORDERED: SODIUM CHLORIDE 1,000 ML IV SCH ×2 (12:30→12:32)
[2017-09-09] MEDS: HEPARIN SOD,PORK IN 0.45% NACL 25,000 UNITS/500 ML INFUS.BAG IVPB SCH (13:22)
--- NOTE | 2017-09-09 15:05 | PN ---
Progress Note, Physician Chief Complaint: Events noted Feels better History of Present Illness: Patient was seen and examined. Awake and alert. Chart was reviewed Denies chest pain, SOB or palpitations Post vascular intervention hemodynamically stable - Current Medication List Current Medications: Active Medications Acetaminophen (Tylenol -) 650 mg PO Q6H PRN PRN Reason: FEVER Aspirin (Ecotrin -) 81 mg PO DAILY [facility] Atorvastatin Calcium (Lipitor -) 40 mg PO HS [facility] Carvedilol (Coreg -) 6.25 mg PO BID [facility] Chlorhexidine Gluconate (Hibiclens For Decolonization -) 1 applic TP HS [facility] Fentanyl (Sublimaze Injection -) 50 mcg IVPUSH [id number] PRN PRN Reason: PAIN-PACU ORDER X 4 DOSES ONLY Heparin Sodium (Porcine) (Heparin -) 1,000 unit IVPUSH PRN PRN PRN Reason: Heparin Heparin Sodium (Porcine) (Heparin -) 5,000 unit IVPUSH PRN PRN PRN Reason: Heparin HEPARIN SOD,PORK IN 0.45% NACL (Heparin-1/2ns 25,000 Units/500) 25,000 units in 500 mls @ 20 mls/hr IVPB TITR [facility]; Protocol Last Admin: 09/09/17 13:22 Dose: 1,000 units/hr, 20 mls/hr Sodium Chloride (Normal Saline -) 1,000 mls @ 100 mls/hr IV ASDIR [facility] Last Admin: 09/09/17 13:19 Dose: 100 mls/hr Morphine Sulfate (Morphine Injection -) 2 mg IVPUSH Q4H PRN PRN Reason: PAIN LEVEL 6-10 Mupirocin (Bactroban Ointment (For Decolonization) -) 1 applic NS BID [facility] Stop: 09/13/17 21:59 Nicotine (Nicoderm Patch -) 14 mg TD DAILY [facility] Ondansetron HCl (Zofran Injection) 4 mg IVPUSH Q6H PRN PRN Reason: NAUSEA AND/OR VOMITING Oxycodone HCl (Roxicodone -) 5 mg PO Q4H PRN PRN Reason: PAIN LEVEL 1-5 Stop: 09/09/17 16:50 Promethazine HCl (Phenergan Injection -) 12.5 mg IVPUSH Q6H PRN PRN Reason: NAUSEA-FOR RESCUE AFTER 15 MIN Warfarin Sodium (Coumadin -) 7.5 mg PO DAILY@1800 [facility]LLY - Objective Vital Signs: Vital Signs Temperature 97.2 F L 09/09/17 12:10 Pulse Rate 103 H 09/09/17 12:10 Respiratory Rate 22 09/09/17 12:10 Blood Pressure 142/92 09/09/17 12:10 O2 Sat by Pulse Oximetry (%) 98 09/09/17 12:10 Eyes: Yes: PERRL HENT: Yes: Atraumatic Neck: Yes: Supple Cardiovascular: Yes: Tachycardia, Pulse Irregular, S1, S2 Respiratory: Yes: Diminished Gastrointestinal: Yes: Normal Bowel Sounds, Soft. No: Tenderness Edema: Yes Labs: CBC, BMP 09/09/17 07:00 09/09/17 07:00 INR, PTT INR 1.48 (0.82-1.09) H 09/09/17 07:00 Fibrinogen 205.0 mg/dL (238-498) L D 09/09/17 07:00 Problem List - Problems (1) [id number] kidney injury Code(s): N17.9 - ACUTE KIDNEY FAILURE, UNSPECIFIED; N18.9 - CHRONIC KIDNEY DISEASE, UNSPECIFIED Qualifiers: Chronic kidney disease stage: stage 2 (mild) (2) Demand ischemia Code(s): I24.8 - OTHER FORMS OF ACUTE ISCHEMIC HEART DISEASE (3) Coronary artery disease Code(s): I25.10 - ATHSCL HEART DISEASE OF [place] CORONARY ARTERY W/O ANG PCTRS Qualifiers: Coronary Disease-Associated Artery/Lesion type: [place] artery [place] vs. transplanted heart: [place] heart Associated angina: without angina Qualified Code(s): I25.10 - Atherosclerotic heart disease of [place] coronary artery without angina pectoris (4) Diastolic dysfunction without heart failure Code(s): I51.9 - HEART DISEASE, UNSPECIFIED (5) HTN (hypertension) Code(s): I10 - ESSENTIAL (PRIMARY) HYPERTENSION Qualifiers: Hypertension type: essential hypertension Qualified Code(s): I10 - Essential (primary) hypertension (6) Hypertrophic cardiomyopathy Code(s): I42.2 - OTHER HYPERTROPHIC CARDIOMYOPATHY (7) Left ventricular systolic dysfunction Code(s): I51.9 - HEART DISEASE, UNSPECIFIED (8) Nicotine dependence Code(s): F17.200 - NICOTINE DEPENDENCE, UNSPECIFIED, UNCOMPLICATED (9) Paroxysmal atrial fibrillation Code(s): I48.0 - PAROXYSMAL ATRIAL FIBRILLATION (10) Peripheral arterial disease Code(s): I73.9 - PERIPHERAL VASCULAR DISEASE, UNSPECIFIED (11) Atrial flutter Code(s): I48.92 - UNSPECIFIED ATRIAL FLUTTER Qualifiers: Atrial flutter type: typical Qualified Code(s): I48.3 - Typical atrial flutter (12) Pulmonary vascular congestion Code(s): R09.89 - OTH SYMPTOMS AND SIGNS INVOLVING THE CIRC AND RESP SYSTEMS Assessment/Plan 1. PAD with left limb ischemia referable to SFA occlusion 2. History of bilateral SFA occlusion post thrombectomy, most likely embolic disease related to persistent atrial fibrillation with [id number] score of 6, history of poor compliance with therapy administration and medical follow up 3. CAD with demand ischemic injury, non obstructive CAD [facility] coronary angiogrpahy angina pectoris 4. LV diastolic dysfunction related to apical hypertrophic cardiomyopathy, chronic class I-II NYHA classification, compensated/euvolemic 5. Persistent atrial flutter [id number] score of 6 on Coumadin therapy, with subtherapeutic INR 6. HTN 7. Acute on CKD improving 8. Poor compliance with medical therapy administration and medical F/U 9. Tobacco abuse PLAN: 1. Continue current medical therapy 2. Resume Coumadin once post-op hemostasis assured given [id number] score 6, placed on heparin gtt bridge 3. Continue Carvedilol 6.25 bid 4. Judicious hydration and hold Diovan 80 qd pending renal function stabilization 5. Continue ASA 81 qd 6. Continue Lipitor 40 qhs 7. Consider outpatient DCCV for the above noted atrial arrhythmia once clinically stabilized. Patient was advised to follow up in office (previously been to office) Further plans are to follow. Patient was seen, counseled and examined for 35 minutes Eliel Sam MD
[2017-09-09] MEDS: HEPARIN NA (PORCINE) 5,000 UNITS/ML 1ML VIAL IVPUSH PRN ×2 (17:06→23:47)
[2017-09-09] MEDS: WARFARIN NA 7.5 MG TABLET (FP) PO SCH (17:39)
[2017-09-09] MEDS: MUPIROCIN 2% TOPICAL OINTMENT FOR DECOLONIZATION NS SCH ×2 (19:43→21:56)
[2017-09-09] MEDS: CARVEDILOL 6.25 MG TABLET (FP) PO SCH ×2 (19:44→21:57)
[2017-09-09] MEDS: ATORVASTATIN CA 40 MG TABLET (FP) PO SCH (21:55)
[2017-09-09] MEDS: CHLORHEXIDINE GLUCONATE 4% CLEANSER FOR DECOLONIZATION TP SCH (21:56)
[2017-09-09] MEDS ORDERED: ATORVASTATIN CA 40 MG TABLET (FP) PO SCH (22:00)
[2017-09-10] MEDS: HEPARIN SOD,PORK IN 0.45% NACL 25,000 UNITS/500 ML INFUS.BAG IVPB SCH ×2 (01:57→11:08)
--- NOTE | 2017-09-10 08:29 | PN ---
Progress Note (short form) - Note Progress Note: Anesthesia Post op Pt seen and examined S:alert and awake O: Vital Signs Temperature 98.3 F 09/09/17 20:52 Pulse Rate 94 H 09/09/17 20:52 Respiratory Rate 20 09/09/17 20:52 Blood Pressure 143/83 09/09/17 20:52 O2 Sat by Pulse Oximetry (%) 97 09/09/17 21:00 CBC, BMP 09/09/17 07:00 09/09/17 07:00 A/P: Current Active Problems Ahahb-ls-wyaslwf kidney injury (Acute) Pre-procedural cardiovascular examination (Acute) s/p Aniogram angioplast left LE Doing well post op Continue current care Castillo Nicholson MD
[2017-09-10 08:42] LABS: HEMATOCRIT 29.2 % (35.4-49); HEMOGLOBIN 9.8 GM/dL (11.7-16.9); MCHC 33.4 g/dl (32.0-35.9); MEAN CELL VOLUME 92.9 fl (80-96); MEAN PLT VOLUME 8.3 fl (7.5-11.1); PLATELET COUNT 282 K/MM3 (134-434); RBC 3.14 M/mm3 (4.00-5.60); RDW 15.4 % (11.9-15.9); WHITE BLOOD COUNT 8.4 K/mm3 (4.0-10.0)
[2017-09-10 09:06] LABS: ANION GAP 7 (8-16); BLOOD UREA NITROGEN 16 mg/dL (7-18); CALCIUM 7.5 mg/dL (8.5-10.1); CHLORIDE 110 mmol/L (98-107); CO2 24 mmol/L (21-32); CREATININE 1.5 mg/dL (0.7-1.3); GLUCOSE,RANDOM 86 mg/dL (74-106); POTASSIUM 4.7 mmol/L (3.5-5.1); SODIUM 141 mmol/L (136-145)
[2017-09-10] MEDS: NICOTINE 14 MG/24 HOURS TOPICAL PATCH TD SCH (09:06)
[2017-09-10] MEDS: CARVEDILOL 6.25 MG TABLET (FP) PO SCH ×2 (09:06→21:40)
[2017-09-10] MEDS: morphine CARPU-JECT 2 MG/1 ML DISP.SYRIN IVPUSH PRN ×2 (09:06→20:20)
[2017-09-10] MEDS: ASPIRIN COATED 81 MG TABLET.EC PO SCH (09:06)
[2017-09-10 09:29] LABS: INR 1.4 (0.82-1.09); PROTHROMBIN TIME (PATIENT) 15.8 SEC (9.7-13.0)
[2017-09-10] MEDS: MUPIROCIN 2% TOPICAL OINTMENT FOR DECOLONIZATION NS SCH ×2 (11:03→21:21)
[2017-09-10] MEDS: HEPARIN NA (PORCINE) 5,000 UNITS/ML 1ML VIAL IVPUSH PRN (11:11)
--- NOTE | 2017-09-10 16:34 | PN ---
Progress Note (short form) - Note Progress Note: Subjective: no fever or chills , pain in L foot but improved Objective: Vital Signs: Last Vital Signs Temp Pulse Resp BP Pulse Ox 98.3 F 110 H 18 121/72 97 09/09/17 20:52 09/10/17 13:00 09/10/17 13:00 09/10/17 13:00 09/10/17 09:00 Laboratory Results - last 24 hr 09/09/17 09/09/17 09/10/17 16:15 21:40 06:00 WBC RBC Hgb Hct MCV MCH MCHC RDW Plt Count MPV PT with INR 15.80 H INR 1.40 H PTT (Actin FS) 46.6 H D 44.2 H Sodium Potassium Chloride Carbon Dioxide Anion Gap BUN Creatinine Random Glucose Calcium 09/10/17 09/10/17 09/10/17 06:30 06:30 06:30 WBC 8.4 RBC 3.14 L Hgb 9.8 L Hct 29.2 L MCV 92.9 MCH 31.0 MCHC 33.4 RDW 15.4 Plt Count 282 MPV 8.3 PT with INR INR PTT (Actin FS) 41.1 H Sodium 141 Potassium 4.7 Chloride 110 H Carbon Dioxide 24 Anion Gap 7 L BUN 16 Creatinine 1.5 H D Random Glucose 86 D Calcium 7.5 L 09/10/17 15:15 WBC RBC Hgb Hct MCV MCH MCHC RDW Plt Count MPV PT with INR INR PTT (Actin FS) 57.3 H D Sodium Potassium Chloride Carbon Dioxide Anion Gap BUN Creatinine Random Glucose Calcium Physical Exam: NAD, cooperative today CV; RRR Lungs: CTAB LE : warm feet. TTP over L forefoot , erythema on anterior dorsal aspect of L fot . DP 1+ on left, 1+ on R . PT not palpable on both sides ASSESSMENT AND PLAN: 77 y/o man with h/o PAD, CAD, HTN, hypertrophic cardiomyopathy, b/l SFA occlsion s/p thrombectomy, A fib, non compliance and other medical problems who presented with foot pain and was found to have L LE arterial occlusion 1- Acute Limb ischemia: L SFA , popliteal, and posterior tibial arteries occlusion/thrombosis. s/p angio and TPA -cont heparin gtt and coumadin bridge - cont ASA - cont lipitor - vascular f/u 2- MELITA: concern for development of JENNY - increase IVF to 125 cc/hr - if renal function cont to worsen then will consult renal 3- A fib : cont coreg and heparin gtt. f/u wit card as out pt 4- CAD: last cath with non obstructive disease . -cont lipitpr , asa and coreg 5-Nicotine dependence : cont patch Dispo: HLOC Visit type - Emergency Visit Emergency Visit: Yes ED Registration Date: 09/02/17 Care time: The patient presented to the Emergency Department on the above date and was hospitalized for further evaluation of their emergent condition. - New Patient This patient is new to me today: No - Critical Care Critical Care patient: No
[2017-09-10] MEDS ORDERED: PT OWN MED DRAWER 7, Y5N ONE (17:54)
[2017-09-10] MEDS: WARFARIN NA 7.5 MG TABLET (FP) PO SCH (18:01)
[2017-09-10] MEDS: SODIUM CHLORIDE 1,000 ML IV SCH (18:37)
[2017-09-10] MEDS: CHLORHEXIDINE GLUCONATE 4% CLEANSER FOR DECOLONIZATION TP SCH (21:21)
[2017-09-10] MEDS: ATORVASTATIN CA 40 MG TABLET (FP) PO SCH (21:40)
[2017-09-11] MEDS: HEPARIN SOD,PORK IN 0.45% NACL 25,000 UNITS/500 ML INFUS.BAG IVPB SCH ×3 (01:00→18:44)
[2017-09-11] MEDS: SODIUM CHLORIDE 1,000 ML IV SCH ×2 (02:30→18:12)
[2017-09-11 08:25] LABS: HEMATOCRIT 30.8 % (35.4-49); HEMOGLOBIN 10.4 GM/dL (11.7-16.9); MCH 31.2 pg (25.7-33.7); MCHC 33.6 g/dl (32.0-35.9); MEAN CELL VOLUME 92.8 fl (80-96); MEAN PLT VOLUME 8.2 fl (7.5-11.1); PLATELET COUNT 333 K/MM3 (134-434); RBC 3.32 M/mm3 (4.00-5.60); RDW 15.7 % (11.9-15.9); WHITE BLOOD COUNT 8.3 K/mm3 (4.0-10.0)
[2017-09-11 08:43] LABS: INR 1.35 (0.82-1.09); PROTHROMBIN TIME (PATIENT) 15.3 SEC (9.7-13.0)
[2017-09-11 09:03] LABS: ANION GAP 5 (8-16); BLOOD UREA NITROGEN 12 mg/dL (7-18); CALCIUM 7.6 mg/dL (8.5-10.1); CHLORIDE 111 mmol/L (98-107); CO2 27 mmol/L (21-32); GLUCOSE,RANDOM 96 mg/dL (74-106); POTASSIUM 4.8 mmol/L (3.5-5.1); SODIUM 143 mmol/L (136-145)
[2017-09-11 09:04] LABS: CREATININE 1.4 mg/dL (0.7-1.3)
[2017-09-11] MEDS ORDERED: PT OWN MED DRAWER 7, Y5N ONE (10:47)
[2017-09-11] MEDS: MUPIROCIN 2% TOPICAL OINTMENT FOR DECOLONIZATION NS SCH ×2 (10:55→22:00)
[2017-09-11] MEDS: CARVEDILOL 6.25 MG TABLET (FP) PO SCH ×2 (10:55→21:59)
[2017-09-11] MEDS: ASPIRIN COATED 81 MG TABLET.EC PO SCH (10:56)
[2017-09-11] MEDS: NICOTINE 14 MG/24 HOURS TOPICAL PATCH TD SCH (10:57)
--- NOTE | 2017-09-11 11:17 | PN ---
Progress Note, Physician History of Present Illness: LLE ischemic discomfort improved post left SFA STEAMFITTER and stent. - Current Medication List Current Medications: Active Medications Acetaminophen (Tylenol -) 650 mg PO Q6H PRN PRN Reason: FEVER Aspirin (Ecotrin -) 81 mg PO DAILY [facility] Last Admin: 09/11/17 10:56 Dose: 81 mg Atorvastatin Calcium (Lipitor -) 40 mg PO HS [facility] Last Admin: 09/10/17 21:40 Dose: 40 mg Carvedilol (Coreg -) 6.25 mg PO BID [facility] Last Admin: 09/11/17 10:55 Dose: 6.25 mg Chlorhexidine Gluconate (Hibiclens For Decolonization -) 1 applic TP HS [facility] Last Admin: 09/10/17 21:21 Dose: Not Given Fentanyl (Sublimaze Injection -) 50 mcg IVPUSH [id number] PRN PRN Reason: PAIN-PACU ORDER X 4 DOSES ONLY Heparin Sodium (Porcine) (Heparin -) 1,000 unit IVPUSH PRN PRN PRN Reason: Heparin Last Admin: 09/10/17 11:11 Dose: 1,000 unit Heparin Sodium (Porcine) (Heparin -) 5,000 unit IVPUSH PRN PRN PRN Reason: Heparin HEPARIN SOD,PORK IN 0.45% NACL (Heparin-1/2ns 25,000 Units/500) 25,000 units in 500 mls @ 20 mls/hr IVPB TITR [facility]; Protocol Last Admin: 09/11/17 09:00 Dose: 1,300 units/hr, 26 mls/hr Sodium Chloride (Normal Saline -) 1,000 mls @ 125 mls/hr IV ASDIR [facility] Last Admin: 09/11/17 02:30 Dose: 125 mls/hr Morphine Sulfate (Morphine Injection -) 2 mg IVPUSH Q4H PRN PRN Reason: PAIN LEVEL 6-10 Last Admin: 09/10/17 20:20 Dose: 2 mg Mupirocin (Bactroban Ointment (For Decolonization) -) 1 applic NS BID [facility] Stop: 09/13/17 21:59 Last Admin: 09/11/17 10:55 Dose: Not Given Nicotine (Nicoderm Patch -) 14 mg TD DAILY [facility] Last Admin: 09/11/17 10:57 Dose: Not Given Ondansetron HCl (Zofran Injection) 4 mg IVPUSH Q6H PRN PRN Reason: NAUSEA AND/OR VOMITING Promethazine HCl (Phenergan Injection -) 12.5 mg IVPUSH Q6H PRN PRN Reason: NAUSEA-FOR RESCUE AFTER 15 MIN Warfarin Sodium (Coumadin -) 7.5 mg PO DAILY@1800 [facility] Last Admin: 09/10/17 18:01 Dose: 7.5 mg - Objective Vital Signs: Vital Signs Temperature 97.6 F 09/11/17 06:00 Pulse Rate 77 09/11/17 06:00 Respiratory Rate 20 09/11/17 06:00 Blood Pressure 152/84 09/11/17 06:00 O2 Sat by Pulse Oximetry (%) 98 09/10/17 21:00 Constitutional: Yes: No Distress, Calm, Thin Neck: Yes: Supple Cardiovascular: Yes: Regular Rate and Rhythm Respiratory: Yes: Regular, Diminished Gastrointestinal: Yes: Normal Bowel Sounds, Soft Edema: No Labs: CBC, BMP 09/11/17 07:42 09/11/17 07:42 INR, PTT INR 1.35 (0.82-1.09) H 09/11/17 07:26 Fibrinogen 205.0 mg/dL (238-498) L D 09/09/17 07:00 Problem List - Problems (1) Bbdxp-fo-frtrmmi kidney injury Code(s): N17.9 - ACUTE KIDNEY FAILURE, UNSPECIFIED; N18.9 - CHRONIC KIDNEY DISEASE, UNSPECIFIED Qualifiers: Chronic kidney disease stage: stage 2 (mild) (2) Demand ischemia Code(s): I24.8 - OTHER FORMS OF ACUTE ISCHEMIC HEART DISEASE (3) Anticoagulant long-term use Code(s): Z79.01 - HALFWAY (CURRENT) USE OF ANTICOAGULANTS (4) Coronary artery disease Code(s): I25.10 - ATHSCL HEART DISEASE OF [place] CORONARY ARTERY W/O ANG PCTRS Qualifiers: Coronary Disease-Associated Artery/Lesion type: [place] artery [place] vs. transplanted heart: [place] heart Associated angina: without angina Qualified Code(s): I25.10 - Atherosclerotic heart disease of [place] coronary artery without angina pectoris (5) Diastolic dysfunction without heart failure Code(s): I51.9 - HEART DISEASE, UNSPECIFIED (6) HTN (hypertension) Code(s): I10 - ESSENTIAL (PRIMARY) HYPERTENSION Qualifiers: Hypertension type: essential hypertension Qualified Code(s): I10 - Essential (primary) hypertension (7) Hypertrophic cardiomyopathy Code(s): I42.2 - OTHER HYPERTROPHIC CARDIOMYOPATHY (8) Peripheral arterial disease Code(s): I73.9 - PERIPHERAL VASCULAR DISEASE, UNSPECIFIED [facility] showing nonobstructive CAD, severe LV apical hypertrophic cardiomyopathy, mildly elevated right sided pressures, Mynx deployed right LITHOGRAPHIC STRIPPER access site. 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 1. PAD with left limb ischemia referable to SFA occlusion s/p STEAMFITTER and stent 2. History of bilateral SFA occlusion post thrombectomy, most likely embolic disease related to persistent atrial fibrillation with [id number] score of 6, history of poor compliance with therapy administration and medical F/U 3. CAD with demand ischemic injury, non obstructive CAD on R&LHc coronary angiogrpahy angina pectoris 4. LV diastolic dysfunction related to apical hypertrophic cardiomyopathy, chronic class I-II NYHA classification, compensated/euvolemic 5. Persistent atrial flutter [id number] score of 6 on Coumadin therapy, with subtherapeutic INR 6. HTN 7. Acute on CKD improving 8. Poor compliance with medical therapy administration and medical F/U 9. Tobacco abuse 10. H/o food anaphylaxis PLAN: 1. Resumed coumadin post-procedure given [id number] score 6, placed on heparin gtt with INR<2.0 2. Continue Carvedilol 6.25 bid 3. Judicious hydration and hold Diovan 80 qd pending renal fxn stabilization 4. Continue ASA 81 qd 5. Continue Lipitor 40 qhs 6. Counselled smoking cessation and abstinence 7. Will consider outpatient DCCV for the above noted atrial arrhythmia after 3- 4 weeks of adequate A/C
[2017-09-11 16:13] VITALS: BMI 28.3
--- NOTE | 2017-09-11 17:49 | PN ---
Teaching Attending Note Name of Resident: Jazzmine Forde ATTENDING PHYSICIAN STATEMENT I saw and evaluated the patient. I reviewed the resident's note and discussed the case with the resident. I agree with the resident's findings and plan as documented. SUBJECTIVE: No fever or chills. No SOB. minimal pain in foot OBJECTIVE: NAD, cooperative today , allowed exam CV; RRR Lungs: CTAB LE : warm feet. TTP over L forefoot , erythema on anterior dorsal aspect of L foot . DP was not felt . PT not palpable on both sides ASSESSMENT AND PLAN: 77 y/o man with h/o PAD, CAD, HTN, hypertrophic cardiomyopathy, b/l SFA occlsion s/p thrombectomy, A fib, non compliance and other medical problems who presented with foot pain and was found to have L LE arterial occlusion 1- Acute Limb ischemia: L SFA , popliteal, and posterior tibial arteries occlusion/thrombosis. s/p angio and TPA - cont heparin gtt and coumadin bridge - cont ASA - cont lipitor - vascular f/u 2- MELITA: concern JENNY - Cont increased IVF 125 cc/hr - Stable renal function . cont to hold ARB 3- A fib: cont coreg and heparin gtt. f/u wit card as out pt 4- CAD: last cath with non obstructive disease . -cont lipitor, asa and coreg 5-Nicotine dependence: cont patch Dispo: OC
[2017-09-11] MEDS: WARFARIN NA 7.5 MG TABLET (FP) PO SCH (18:07)
--- NOTE | 2017-09-11 18:43 | PN ---
Physical Exam: SUBJECTIVE: Patient seen and examined at bedside. Overnight, pt c/o pain, received morphine 2mg x 1 . Continued on heparin gtt. Pt in good spirits. Denies CLAROS, fever, chills, or changes in urinary or bowel function. OBJECTIVE: Vital Signs Period Temp Pulse Resp BP Sys/Ariza Pulse Ox Last 24 Hr 97.4 F-97.6 F 77-91 20-20 143-153/71-89 95-98 GENERAL: The patient is resting comfortably in bed. awake, alert, and fully oriented, in no acute distress. HEAD: Normal with no signs of trauma. EYES: PERRL, extraocular movements intact, sclera anicteric, conjunctiva clear. ENT: Ears normal, nares patent NECK: Trachea midline, supple. LUNGS: Breath sounds equal, clear to auscultation bilaterally, no wheezes, no crackles, no accessory muscle use. HEART: Regular rate and rhythm-in sinus, S1, S2 without murmur, rub or gallop. ABDOMEN: Soft, nontender, nondistended, normoactive bowel sounds, no guarding EXTREMITIES: 1+ dorsalis pedis pulse LLE, with increased erythema and swelling in forefoot. 1+ dorsalis pedis RLE NEUROLOGICAL: Cranial nerves II through XII grossly intact. with decreased ROM in LLE 2/2 pain PSYCH: Positive mood, normal affect. SKIN: Warm, dry, normal turgor Laboratory Results - last 24 hr 09/11/17 09/11/17 09/11/17 07:26 07:42 07:42 WBC 8.3 RBC 3.32 L Hgb 10.4 L Hct 30.8 L MCV 92.8 MCH 31.2 MCHC 33.6 RDW 15.7 Plt Count 333 MPV 8.2 PT with INR 15.30 H INR 1.35 H PTT (Actin FS) 55.6 H Potassium Calcium 09/11/17 07:42 PTT (Actin FS) Sodium 143 Potassium 4.8 Chloride 111 H Carbon Dioxide 27 Anion Gap 5 L BUN 12 D Creatinine 1.4 H Random Glucose 96 Calcium 7.6 L Active Medications Generic Name Dose Route Start Last Admin Trade Name Freq PRN Reason Stop Dose Admin Acetaminophen 650 mg 09/09/17 10:20 Tylenol - PO Q6H PRN FEVER Aspirin 81 mg 09/10/17 10:00 09/11/17 10:56 Ecotrin - PO 81 mg DAILY [facility] Administration Atorvastatin Calcium 40 mg 09/09/17 22:00 09/10/17 21:40 Lipitor - PO 40 mg HS [facility] Administration Carvedilol 6.25 mg 09/09/17 22:00 09/11/17 10:55 Coreg - PO 6.25 mg BID [facility] Administration Chlorhexidine Gluconate 1 applic 09/09/17 22:00 09/10/17 21:21 Hibiclens For Decolonization - TP Not Given HS [facility] Fentanyl 50 mcg 09/09/17 10:20 Sublimaze Injection - IVPUSH [id number] PRN PAIN-PACU ORDER X 4 DOSES ONLY Heparin Sodium (Porcine) 1,000 unit 09/09/17 09:41 09/10/17 11:11 Heparin - IVPUSH 1,000 unit PRN PRN Administration Heparin Heparin Sodium (Porcine) 5,000 unit 09/09/17 09:41 Heparin - IVPUSH PRN PRN Heparin HEPARIN SOD,PORK IN 0.45% NACL 25,000 units in 500 mls @ 20 mls/hr 09/09/17 09 :45 09/11/17 09:00 Heparin-1/2ns 25,000 Units/500 IVPB 1,300 units/hr TITR [facility] 26 mls/hr Administration Protocol 1,000 UNITS/HR Sodium Chloride 1,000 mls @ 125 mls/hr 09/10/17 16:45 09/11/17 18:12 Normal Saline - IV 125 mls/hr ASDIR [facility] Administration Morphine Sulfate 2 mg 09/09/17 10:20 09/10/17 20:20 Morphine Injection - IVPUSH 2 mg Q4H PRN Administration PAIN LEVEL 6-10 Mupirocin 1 applic 09/09/17 22:00 09/11/17 10:55 Bactroban Ointment (For Decolonization) - NS 09/13/17 21:59 Not Given BID [facility] Nicotine 14 mg 09/10/17 10:00 09/11/17 10:57 Nicoderm Patch - TD Not Given DAILY [facility] Ondansetron HCl 4 mg 09/09/17 10:20 Zofran Injection IVPUSH Q6H PRN NAUSEA AND/OR VOMITING Promethazine HCl 12.5 mg 09/09/17 10:20 Phenergan Injection - IVPUSH Q6H PRN NAUSEA-FOR RESCUE AFTER 15 MIN Warfarin Sodium 7.5 mg 09/09/17 18:00 09/11/17 18:07 Coumadin - PO 7.5 mg DAILY@1800 [facility] Administration IMAGING -09/02/17: Duplex, arterial duplex lower ext: no evidence of DVT in both lower extremities. compared to prior b/l lower extremity duplex arterial US from , in the RLE there is now normal triphasic waveform in the common femoral artery, superficial femoral, popliteal, posterior tibial a. atheromatous plaques are present throughout. in the LLE, there is normal triphasic waveform in L common femoral a. there is no definite flow within the L superficial femoral, popliteal, and posterior tibial a. consistent with occlusion. diffuse atheromatous plaques are present throughout. -09/02/17: CXR: since prior study 09/02/17, new congestive changes with persistently elevated L hemidiaphragm and some bibasilar atelctatic/ infiltrative changes with the L more affected than the R. there may be some L fluid. correlation recommended. -09/02/17: L foot XR: pes planus deformity, exostosis/degenerative change of navicular bone. bunion formation of 1st MTP with extenive arthritic changes. the toes are partially flexed with arthritic changes. no sign of calcaneal spurring. blastic changes are not seen. there appears to be a hypodene/cystic change at the base of the proximal phalynx of the 2nd metatarsal. correlation recommended. if symptoms persist, further imaging and ortho consultation may be needed. Microbiology 09/03/17 10:30 Urine - Urine Clean Catch Urine Culture - Final NO GROWTH OBTAINED 09/02/17 21:40 Blood - Peripheral Venous Blood Culture - Final NO GROWTH AFTER 5 DAYS INCUBATION 09/02/17 21:19 Blood - Peripheral Venous Blood Culture - Final NO GROWTH AFTER 5 DAYS INCUBATION ASSESSMENT/PLAN: 77 y/o M with PMH alcohol abuse, HTN, CAD, afib (on coumadin), PAD s/p thrombectomy 2016, who presented to the ED with acute L foot pain. Pt admitted for acute L foot pain, r/o ischemia. #Acute L foot pain, r/o ischemia -s/p tPA, aortogram, LLE angiogram, thrombolysis -extensive clot needed continuation of hep gtt (started 09/06/17) and tPA -on hep gtt, bridging with coumadin 7.5mg PO qd -INR sub-therapeutic 1.35. -Continue asa 81, lipitor 40mg PO qd -Continue to follow INR, PTT -d/w Dr. Rico #MELITA likely 2/2 prerenal -Continue IV NS 125 cc/hr -may be able to decrease tomorrow -received contrast for procedure x 2 #Hyperkalemia- resolved #Afib - currently in sinus -continue coreg 6.25mg PO BID -F/u with cardiology as outpt #HLD -Continue lipitor 40mg PO qd #Smoking cessation -Continue nicotine patch 14mg TD daily #Supratherapeutic INR-resolved #Possible cellulitis-resolved -received clinda -currently monitoring off abx -ucx, blood cx - NGTD #F/E/N IV NS 125 cc/hr Continue to follow lytes diabetic/sodium controlled diet #PPX s/p tPA bridging hep gtt, coumadin #Dispo -continued monitoring med-surg -will need outpatient DC cardioversion 3-4 weeks after on a/c -as well as cardio f/u Visit type - Emergency Visit Emergency Visit: No - New Patient This patient is new to me today: No - Critical Care Critical Care patient: No
[2017-09-11] MEDS: morphine CARPU-JECT 2 MG/1 ML DISP.SYRIN IVPUSH PRN (19:07)
[2017-09-11] MEDS: ATORVASTATIN CA 40 MG TABLET (FP) PO SCH (21:59)
[2017-09-11] MEDS: CHLORHEXIDINE GLUCONATE 4% CLEANSER FOR DECOLONIZATION TP SCH (22:00)
[2017-09-12 07:33] LABS: HEMATOCRIT 29.8 % (35.4-49); HEMOGLOBIN 10.1 GM/dL (11.7-16.9); MCH 31.4 pg (25.7-33.7); MCHC 33.8 g/dl (32.0-35.9); MEAN CELL VOLUME 92.8 fl (80-96); MEAN PLT VOLUME 8.3 fl (7.5-11.1); PLATELET COUNT 321 K/MM3 (134-434); RBC 3.21 M/mm3 (4.00-5.60); RDW 15.5 % (11.9-15.9)
[2017-09-12 08:03] LABS: ANION GAP 6 (8-16); BLOOD UREA NITROGEN 11 mg/dL (7-18); CALCIUM 7.5 mg/dL (8.5-10.1); CHLORIDE 111 mmol/L (98-107); CO2 25 mmol/L (21-32); CREATININE 1.3 mg/dL (0.7-1.3); GLUCOSE,RANDOM 91 mg/dL (74-106); MAGNESIUM 1.9 mg/dL (1.8-2.4); PHOSPHOROUS 3.5 mg/dL (2.5-4.9); POTASSIUM 4.3 mmol/L (3.5-5.1); SODIUM 142 mmol/L (136-145)
[2017-09-12 09:46] LABS: INR 1.65 (0.82-1.09); PROTHROMBIN TIME (PATIENT) 18.7 SEC (9.7-13.0)
--- NOTE | 2017-09-12 10:02 | PN ---
Progress Note, Physician Chief Complaint: Events noted Feels better Not in distress History of Present Illness: Patient was seen and examined. Awake and alert. Chart was reviewed Denies chest pain, SOB or palpitations Post vascular intervention left SFA stent, hemodynamically stable - Current Medication List Current Medications: Active Medications Acetaminophen (Tylenol -) 650 mg PO Q6H PRN PRN Reason: FEVER Aspirin (Ecotrin -) 81 mg PO DAILY [facility] Last Admin: 09/11/17 10:56 Dose: 81 mg Atorvastatin Calcium (Lipitor -) 40 mg PO HS [facility] Last Admin: 09/11/17 21:59 Dose: 40 mg Carvedilol (Coreg -) 6.25 mg PO BID [facility] Last Admin: 09/11/17 21:59 Dose: 6.25 mg Chlorhexidine Gluconate (Hibiclens For Decolonization -) 1 applic TP HS [facility] Last Admin: 09/11/17 22:00 Dose: Not Given Fentanyl (Sublimaze Injection -) 50 mcg IVPUSH [id number] PRN PRN Reason: PAIN-PACU ORDER X 4 DOSES ONLY Heparin Sodium (Porcine) (Heparin -) 1,000 unit IVPUSH PRN PRN PRN Reason: Heparin Last Admin: 09/10/17 11:11 Dose: 1,000 unit Heparin Sodium (Porcine) (Heparin -) 5,000 unit IVPUSH PRN PRN PRN Reason: Heparin HEPARIN SOD,PORK IN 0.45% NACL (Heparin-1/2ns 25,000 Units/500) 25,000 units in 500 mls @ 20 mls/hr IVPB TITR [facility]; Protocol Last Admin: 09/11/17 18:44 Dose: 1,300 units/hr, 26 mls/hr Sodium Chloride (Normal Saline -) 1,000 mls @ 125 mls/hr IV ASDIR [facility] Last Admin: 09/11/17 18:12 Dose: 125 mls/hr Morphine Sulfate (Morphine Injection -) 2 mg IVPUSH Q4H PRN PRN Reason: PAIN LEVEL 6-10 Last Admin: 09/11/17 19:07 Dose: 2 mg Mupirocin (Bactroban Ointment (For Decolonization) -) 1 applic NS BID [facility] Stop: 09/13/17 21:59 Last Admin: 09/11/17 22:00 Dose: Not Given Nicotine (Nicoderm Patch -) 14 mg TD DAILY [facility] Last Admin: 09/11/17 10:57 Dose: Not Given Ondansetron HCl (Zofran Injection) 4 mg IVPUSH Q6H PRN PRN Reason: NAUSEA AND/OR VOMITING Promethazine HCl (Phenergan Injection -) 12.5 mg IVPUSH Q6H PRN PRN Reason: NAUSEA-FOR RESCUE AFTER 15 MIN Warfarin Sodium (Coumadin -) 7.5 mg PO DAILY@1800 [facility] Last Admin: 09/11/17 18:07 Dose: 7.5 mg - Objective Vital Signs: Vital Signs Temperature 98.0 F 09/12/17 06:25 Pulse Rate 98 H 09/12/17 06:25 Respiratory Rate 20 09/12/17 06:25 Blood Pressure 144/98 09/12/17 06:25 O2 Sat by Pulse Oximetry (%) 98 09/11/17 21:00 Eyes: Yes: PERRL HENT: Yes: Atraumatic Neck: Yes: Supple Cardiovascular: Yes: Pulse Irregular, Murmur (SM), S1, S2 Respiratory: Yes: CTA Bilaterally Gastrointestinal: Yes: Normal Bowel Sounds, Soft. No: Tenderness Edema: No Labs: CBC, BMP 09/12/17 06:30 09/12/17 06:20 INR, PTT INR 1.65 (0.82-1.09) H 09/12/17 06:30 Fibrinogen 205.0 mg/dL (238-498) L D 09/09/17 07:00 Problem List - Problems (1) Nxvin-ob-eadihvw kidney injury Code(s): N17.9 - ACUTE KIDNEY FAILURE, UNSPECIFIED; N18.9 - CHRONIC KIDNEY DISEASE, UNSPECIFIED Qualifiers: Chronic kidney disease stage: stage 2 (mild) (2) Demand ischemia Code(s): I24.8 - OTHER FORMS OF ACUTE ISCHEMIC HEART DISEASE (3) Coronary artery disease Code(s): I25.10 - ATHSCL HEART DISEASE OF [place] CORONARY ARTERY W/O ANG PCTRS Qualifiers: Coronary Disease-Associated Artery/Lesion type: [place] artery [place] vs. transplanted heart: [place] heart Associated angina: without angina Qualified Code(s): I25.10 - Atherosclerotic heart disease of [place] coronary artery without angina pectoris (4) Diastolic dysfunction without heart failure Code(s): I51.9 - HEART DISEASE, UNSPECIFIED (5) HTN (hypertension) Code(s): I10 - ESSENTIAL (PRIMARY) HYPERTENSION Qualifiers: Hypertension type: essential hypertension Qualified Code(s): I10 - Essential (primary) hypertension (6) Hypertrophic cardiomyopathy Code(s): I42.2 - OTHER HYPERTROPHIC CARDIOMYOPATHY (7) Left ventricular systolic dysfunction Code(s): I51.9 - HEART DISEASE, UNSPECIFIED (8) Nicotine dependence Code(s): F17.200 - NICOTINE DEPENDENCE, UNSPECIFIED, UNCOMPLICATED (9) Paroxysmal atrial fibrillation Code(s): I48.0 - PAROXYSMAL ATRIAL FIBRILLATION (10) Peripheral arterial disease Code(s): I73.9 - PERIPHERAL VASCULAR DISEASE, UNSPECIFIED (11) Atrial flutter Code(s): I48.92 - UNSPECIFIED ATRIAL FLUTTER Qualifiers: Atrial flutter type: typical Qualified Code(s): I48.3 - Typical atrial flutter (12) Pulmonary vascular congestion Code(s): R09.89 - OTH SYMPTOMS AND SIGNS INVOLVING THE CIRC AND RESP SYSTEMS Assessment/Plan 1. PAD with left limb ischemia referable to SFA occlusion 2. History of bilateral SFA occlusion post thrombectomy, most likely embolic disease related to persistent atrial fibrillation with [id number] score of 6, history of poor compliance with therapy administration and medical follow up 3. CAD with demand ischemic injury, non obstructive CAD [facility] coronary angiogrpahy angina pectoris 4. LV diastolic dysfunction related to apical hypertrophic cardiomyopathy, chronic class I-II NYHA classification, compensated/euvolemic 5. Persistent atrial flutter [id number] score of 6 on Coumadin therapy, with subtherapeutic INR 6. HTN 7. Acute on CKD improving 8. Poor compliance with medical therapy administration and medical F/U 9. Tobacco abuse PLAN: 1. Continue current medical therapy 2. Coumadin per INR 3. Continue Carvedilol 6.25 bid 4. Restart Diovan 80 qd pending renal function stabilization 5. Continue ASA 81 qd 6. Continue Lipitor 40 qhs 7. Consider outpatient DCCV for the above noted atrial arrhythmia once clinically stabilized. Patient was advised to follow up in office (previously been to office) 8. PT Further plans are to follow. Eliel Sam MD
[2017-09-12] MEDS: CARVEDILOL 6.25 MG TABLET (FP) PO SCH ×2 (10:28→21:00)
[2017-09-12] MEDS: ASPIRIN COATED 81 MG TABLET.EC PO SCH (10:28)
[2017-09-12] MEDS: HEPARIN SOD,PORK IN 0.45% NACL 25,000 UNITS/500 ML INFUS.BAG IVPB SCH (10:28)
[2017-09-12] MEDS: NICOTINE 14 MG/24 HOURS TOPICAL PATCH TD SCH (10:29)
[2017-09-12] MEDS: MUPIROCIN 2% TOPICAL OINTMENT FOR DECOLONIZATION NS SCH ×2 (10:29→21:01)
[2017-09-12] MEDS ORDERED: morphine SULFATE 4 MG/ML VIAL IVPUSH PRN (10:37)
[2017-09-12] MEDS ORDERED: SODIUM CHLORIDE 1,000 ML IV SCH (17:44)
--- NOTE | 2017-09-12 17:45 | PN ---
Teaching Attending Note Name of Resident: Jazzmine Forde ATTENDING PHYSICIAN STATEMENT I saw and evaluated the patient. I reviewed the resident's note and discussed the case with the resident. I agree with the resident's findings and plan as documented. SUBJECTIVE: Refused exam and interview ASSESSMENT AND PLAN: 77 y/o man with h/o PAD, CAD, HTN, hypertrophic cardiomyopathy, b/l SFA occlsion s/p thrombectomy, A fib, non compliance and other medical problems who presented with foot pain and was found to have L LE arterial occlusion 1- Acute Limb ischemia: L SFA , popliteal, and posterior tibial arteries occlusion/thrombosis. s/p angio and TPA - cont heparin gtt and coumadin bridge . give 10 mg of coumadin today then 7.5 again tomorrow - cont ASA - cont lipitor - vascular f/u 2- MELITA: concern JENNY - Cr improved - cont to hold ARB for now . - decrease IVF . 3- A fib: cont coreg and heparin gtt. f/u wit card as out pt 4- CAD: last cath with non obstructive disease . -cont lipitor, asa and coreg 5-Nicotine dependence: cont patch Dispo: HLOC
[2017-09-12] MEDS ORDERED: WARFARIN NA 2.5 MG TABLET (FP) PO ONE (18:00)
[2017-09-12] MEDS ORDERED: PT OWN MED DRAWER 7, Y5N ONE (18:54)
[2017-09-12] MEDS: WARFARIN NA 7.5 MG TABLET (FP) PO SCH (18:56)
[2017-09-12] MEDS: SODIUM CHLORIDE 1,000 ML IV SCH (19:31)
--- NOTE | 2017-09-12 20:27 | PN ---
Physical Exam: SUBJECTIVE: Patient seen and examined at bedside. Overnight, pt received morphine for pain. Today, pt in good spirits. States that the erythema in his L foot is improving. With better ROM. Denies CLAROS, fever, chills, SOB, or changes in urinary or bowel function. OBJECTIVE: Vital Signs Period Temp Pulse Resp BP Sys/Ariza Pulse Ox Last 24 Hr 97.8 F-98.2 F 84-104 18-20 138-154/90-102 98-98 GENERAL: The patient is in good spirits. awake, alert, and fully oriented, in no acute distress. HEAD: Normal with no signs of trauma. EYES: PERRL, extraocular movements intact, sclera anicteric, conjunctiva clear. ENT: Ears normal, nares patent, oropharynx clear without exudates, moist mucous membranes. NECK: Trachea midline, supple. LUNGS: Breath sounds equal, clear to auscultation bilaterally, no wheezes, no crackles, no accessory muscle use. HEART: Regular rate and rhythm-in sinus. S1, S2 without murmur, rub or gallop. ABDOMEN: Soft, nontender, nondistended, normoactive bowel sounds, no guarding EXTREMITIES: 1+ dorsalis pedis pulses appreciated b/l. +L foot- improved erythema, ROM. still with dark discoloration, nail changes NEUROLOGICAL: Cranial nerves II through XII grossly intact. PSYCH: Normal mood, normal affect. SKIN: Warm, dry, normal turgor Laboratory Results - last 24 hr 09/12/17 09/12/17 09/12/17 06:20 06:30 06:30 WBC 9.0 RBC 3.21 L Hgb 10.1 L Hct 29.8 L MCV 92.8 MCH 31.4 MCHC 33.8 RDW 15.5 Plt Count 321 MPV 8.3 INR PTT (Actin FS) 62.7 H Sodium 142 Potassium 4.3 Chloride 111 H Carbon Dioxide 25 Anion Gap 6 L BUN 11 Creatinine 1.3 Random Glucose 91 Calcium 7.5 L Phosphorus 3.5 Magnesium 1.9 09/12/17 06:30 MPV PT with INR 18.70 H INR 1.65 H Random Glucose Active Medications Generic Name Dose Route Start Last Admin Trade Name Freq PRN Reason Stop Dose Admin Acetaminophen 650 mg 09/09/17 10:20 Tylenol - PO Q6H PRN FEVER Aspirin 81 mg 09/10/17 10:00 09/12/17 10:28 Ecotrin - PO 81 mg DAILY [facility] Administration Atorvastatin Calcium 40 mg 09/09/17 22:00 09/11/17 21:59 Lipitor - PO 40 mg HS [facility] Administration Carvedilol 6.25 mg 09/09/17 22:00 09/12/17 10:28 Coreg - PO 6.25 mg BID [facility] Administration Chlorhexidine Gluconate 1 applic 09/09/17 22:00 09/11/17 22:00 Hibiclens For Decolonization - TP Not Given HS [facility] Fentanyl 50 mcg 09/09/17 10:20 Sublimaze Injection - IVPUSH [id number] PRN PAIN-PACU ORDER X 4 DOSES ONLY Heparin Sodium (Porcine) 1,000 unit 09/09/17 09:41 09/10/17 11:11 Heparin - IVPUSH 1,000 unit PRN PRN Administration Heparin Heparin Sodium (Porcine) 5,000 unit 09/09/17 09:41 Heparin - IVPUSH PRN PRN Heparin HEPARIN SOD,PORK IN 0.45% NACL 25,000 units in 500 mls @ 20 mls/hr 09/09/17 09 :45 09/12/17 10:28 Heparin-1/2ns 25,000 Units/500 IVPB Not Given TITR [facility] Protocol 1,000 UNITS/HR Sodium Chloride 1,000 mls @ 75 mls/hr 09/12/17 17:44 09/12/17 18:56 Normal Saline - IV 75 mls/hr ASDIR [facility] Administration Morphine Sulfate 2 mg 09/12/17 10:37 Morphine Sulfate IVPUSH Q6H PRN Mupirocin 1 applic 09/09/17 22:00 09/12/17 10:29 Bactroban Ointment (For Decolonization) - NS 09/13/17 21:59 Not Given BID [facility] Nicotine 14 mg 09/10/17 10:00 09/12/17 10:29 Nicoderm Patch - TD Not Given DAILY [facility] Ondansetron HCl 4 mg 09/09/17 10:20 Zofran Injection IVPUSH Q6H PRN NAUSEA AND/OR VOMITING Promethazine HCl 12.5 mg 09/09/17 10:20 Phenergan Injection - IVPUSH Q6H PRN NAUSEA-FOR RESCUE AFTER 15 MIN Warfarin Sodium 7.5 mg 09/09/17 18:00 09/12/17 18:56 Coumadin - PO 7.5 mg DAILY@1800 [facility] Administration IMAGING -09/02/17: Duplex, arterial duplex lower ext: no evidence of DVT in both lower extremities. compared to prior b/l lower extremity duplex arterial US from , in the RLE there is now normal triphasic waveform in the common femoral artery, superficial femoral, popliteal, posterior tibial a. atheromatous plaques are present throughout. in the LLE, there is normal triphasic waveform in L common femoral a. there is no definite flow within the L superficial femoral, popliteal, and posterior tibial a. consistent with occlusion. diffuse atheromatous plaques are present throughout. -09/02/17: CXR: since prior study 09/02/17, new congestive changes with persistently elevated L hemidiaphragm and some bibasilar atelctatic/ infiltrative changes with the L more affected than the R. there may be some L fluid. correlation recommended. -09/02/17: L foot XR: pes planus deformity, exostosis/degenerative change of navicular bone. bunion formation of 1st MTP with extenive arthritic changes. the toes are partially flexed with arthritic changes. no sign of calcaneal spurring. blastic changes are not seen. there appears to be a hypodene/cystic change at the base of the proximal phalynx of the 2nd metatarsal. correlation recommended. if symptoms persist, further imaging and ortho consultation may be needed. Microbiology 09/03/17 10:30 Urine - Urine Clean Catch Urine Culture - Final NO GROWTH OBTAINED 09/02/17 21:40 Blood - Peripheral Venous Blood Culture - Final NO GROWTH AFTER 5 DAYS INCUBATION 09/02/17 21:19 Blood - Peripheral Venous Blood Culture - Final NO GROWTH AFTER 5 DAYS INCUBATION ASSESSMENT/PLAN: 77 y/o M with PMH alcohol abuse, HTN, CAD, afib (on coumadin), PAD s/p thrombectomy 2016, who presented to the ED with acute L foot pain. Pt admitted for acute L foot pain, r/o ischemia. #Acute L foot pain, r/o ischemia -s/p tPA, aortogram, LLE angiogram, thrombolysis -extensive clot needed continuation of hep gtt (started 09/06/17) and tPA -on hep gtt, bridging with coumadin 7.5mg PO qd. -will add additional dose coumadin 2.5mg PO x1 tonight -INR sub-therapeutic 1.65, however gradual trend up -Continue asa 81, lipitor 40mg PO qd -Continue to follow INR, PTT -d/w Dr. Rico #MELITA likely 2/2 prerenal -Continue IV NS 75 cc/hr -received contrast for procedure x 2 -Cr improved 1.3 #Hyperkalemia- resolved #Afib - currently in sinus -continue coreg 6.25mg PO BID -F/u with cardiology as outpt #HLD -Continue lipitor 40mg PO qd #Smoking cessation -Continue nicotine patch 14mg TD daily #Supratherapeutic INR-resolved #Possible cellulitis-resolved -received clinda -currently monitoring off abx -ucx, blood cx - NGTD #F/E/N IV NS 75 cc/hr Continue to follow lytes diabetic/sodium controlled diet #PPX s/p tPA bridging hep gtt, coumadin #Dispo -continued monitoring med-surg . awaiting improvement INR -has been refusing PT -will need outpatient DC cardioversion 3-4 weeks after on a/c -as well as cardio f/u Visit type - Emergency Visit Emergency Visit: No - New Patient This patient is new to me today: No - Critical Care Critical Care patient: No - Discharge Referral Referred to [facility] Med P.C.: No
[2017-09-12] MEDS: CHLORHEXIDINE GLUCONATE 4% CLEANSER FOR DECOLONIZATION TP SCH (21:01)
[2017-09-12] MEDS: ATORVASTATIN CA 40 MG TABLET (FP) PO SCH (21:01)
[2017-09-13 07:00] LABS: CHLORIDE 112 mmol/L (98-107); POTASSIUM 4.7 mmol/L (3.5-5.1); SODIUM 142 mmol/L (136-145)
[2017-09-13 07:28] LABS: HEMATOCRIT 30.1 % (35.4-49); MCH 31.1 pg (25.7-33.7); MCHC 33.4 g/dl (32.0-35.9); MEAN CELL VOLUME 93.3 fl (80-96); MEAN PLT VOLUME 8.6 fl (7.5-11.1); PLATELET COUNT 320 K/MM3 (134-434); RBC 3.23 M/mm3 (4.00-5.60); RDW 15.8 % (11.9-15.9); WHITE BLOOD COUNT 10.4 K/mm3 (4.0-10.0)
[2017-09-13 07:32] LABS: ANION GAP 8 (8-16); BLOOD UREA NITROGEN 13 mg/dL (7-18); CALCIUM 7.9 mg/dL (8.5-10.1); CO2 22 mmol/L (21-32); CREATININE 1.3 mg/dL (0.7-1.3); GLUCOSE,RANDOM 96 mg/dL (74-106)
--- NOTE | 2017-09-13 09:31 | OP ---
DATE OF OPERATION: 09/09/2017 PREOPERATIVE DIAGNOSIS: Left lower extremity ischemia. POSTOPERATIVE DIAGNOSIS: Left lower extremity ischemia. PROCEDURE: Left lower extremity angiogram, superficial femoral artery angioplasty with stent placement. SURGEON: Garrett Quiñonez DO ANESTHESIA: Fractional. BLOOD LOSS: 50 mL. The patient is a 77-year-old male who came in with left lower extremity ischemia. He had restarted thrombolysis the day before and now comes in for a thrombolysis check. Patient's entire foot is nice and warm with palpable DP and PT pulses and it was decided now the patient needs an angiogram and to take the catheters out. Patient was consented for the procedure understanding all risks, benefits and alternatives. He was then taken to the operating room. Once in the operating room he was laid on the operating table in the supine manner and the area of the left and right groin was prepped and draped in a sterile surgical manner. Using Betadine we were able to prep the catheters in a sterile surgical manner. We then went ahead and placed a 0.035 floppy guidewire into our Ekos catheter and the Ekos catheter was removed. We then shot an angiogram of the left lower extremity via hand injection showing that the common femoral artery, the profunda and the SFA are patent. The mid to distal SFA has an 80% stenosis. The distal SFA is patent. The popliteal artery is patent and the patient's main runoff is via his PTRE going right into his foot. At this point we administered 5000 units of IV heparin to the patient. We went ahead and used a 6 x 8 LifeStent, placed a 6 x 8 LifeStent and ballooned it in place using a 5 x 8 Ultraverse balloon. Completion angiogram now showed that the SFA was now patent, there was no recoil and there was good brisk flow down into the foot. At this point we brought our sheath up and over and StarClose device was successfully deployed in the right common femoral artery. Pressure was held for 5 minutes. After there was no bleeding. The area was wet and dried and Dermabond was placed. Patient tolerated the procedure with no complication. Patient transferred to PACU in stable condition where patient has good dopplerable DP and PT pulses. GARRETT QUIÑONEZ DO [employer]/[id number]
[2017-09-13 09:46] LABS: INR 2.27 (0.82-1.09); PROTHROMBIN TIME (PATIENT) 25.6 SEC (9.7-13.0)
[2017-09-13] MEDS: ASPIRIN COATED 81 MG TABLET.EC PO SCH (11:24)
[2017-09-13] MEDS: NICOTINE 14 MG/24 HOURS TOPICAL PATCH TD SCH (11:25)
[2017-09-13] MEDS: MUPIROCIN 2% TOPICAL OINTMENT FOR DECOLONIZATION NS SCH (11:25)
[2017-09-13] MEDS: CARVEDILOL 6.25 MG TABLET (FP) PO SCH ×2 (11:25→21:40)
--- NOTE | 2017-09-13 11:26 | PN ---
Teaching Attending Note Name of Resident: Jazzmine Forde ATTENDING PHYSICIAN STATEMENT I saw and evaluated the patient. I reviewed the resident's note and discussed the case with the resident. I agree with the resident's findings and plan as documented. SUBJECTIVE: Patient is feeling better. No fever or chills, OBJECTIVE: Vital Signs Temperature 97.9 F 09/13/17 06:00 Pulse Rate 83 09/13/17 06:00 Respiratory Rate 20 09/13/17 06:00 Blood Pressure 154/92 09/13/17 06:00 O2 Sat by Pulse Oximetry (%) 98 09/12/17 21:00 CBCD WBC 10.4 K/mm3 (4.0-10.0) H 09/13/17 06:00 RBC 3.23 M/mm3 (4.00-5.60) L 09/13/17 06:00 Hgb 10.0 GM/dL (11.7-16.9) L 09/13/17 06:00 Hct 30.1 % (35.4-49) L 09/13/17 06:00 MCV 93.3 fl (80-96) 09/13/17 06:00 MCHC 33.4 g/dl (32.0-35.9) 09/13/17 06:00 RDW 15.8 % (11.9-15.9) 09/13/17 06:00 Plt Count 320 K/MM3 (134-434) 09/13/17 06:00 MPV 8.6 fl (7.5-11.1) 09/13/17 06:00 CMP Sodium 142 mmol/L (136-145) 09/13/17 06:00 Potassium 4.7 mmol/L (3.5-5.1) 09/13/17 06:00 Chloride 112 mmol/L (98-107) H 09/13/17 06:00 Carbon Dioxide 22 mmol/L (21-32) 09/13/17 06:00 Anion Gap 8 (8-16) 09/13/17 06:00 BUN 13 mg/dL (7-18) 09/13/17 06:00 Creatinine 1.3 mg/dL (0.7-1.3) 09/13/17 06:00 Creat Clearance w eGFR 58.40 (>60) 09/09/17 07:00 Random Glucose 96 mg/dL (74-106) 09/13/17 06:00 Calcium 7.9 mg/dL (8.5-10.1) L 09/13/17 06:00 Total Bilirubin 0.6 mg/dL (0.2-1.0) 09/09/17 07:00 AST 26 U/L (15-37) 09/09/17 07:00 ALT 37 U/L (12-78) 09/09/17 07:00 Alkaline Phosphatase 109 U/L (45-117) 09/09/17 07:00 Total Protein 6.3 g/dl (6.4-8.2) L 09/09/17 07:00 Albumin 2.1 g/dl (3.4-5.0) L 09/09/17 07:00 CARDIAC ENZYMES Creatine Kinase 227 IU/L (39-308) 09/01/17 22:50 Troponin I 0.35 ng/ml (0.00-0.05) H 09/02/17 08:25 Current Medications Generic Name Dose Route Start Last Admin Trade Name Freq PRN Reason Stop Dose Admin Acetaminophen 650 mg 09/09/17 10:20 09/12/17 21:01 Tylenol - PO 650 mg Q6H PRN Administration FEVER Aspirin 81 mg 09/10/17 10:00 09/13/17 11:24 Ecotrin - PO 81 mg DAILY [facility] Administration Atorvastatin Calcium 40 mg 09/09/17 22:00 09/12/17 21:01 Lipitor - PO 40 mg HS [facility] Administration Carvedilol 6.25 mg 09/09/17 22:00 09/13/17 11:25 Coreg - PO 6.25 mg BID [facility] Administration Chlorhexidine Gluconate 1 applic 09/09/17 22:00 09/12/17 21:01 Hibiclens For Decolonization - TP Not Given HS [facility] Fentanyl 50 mcg 09/09/17 10:20 Sublimaze Injection - IVPUSH [id number] PRN PAIN-PACU ORDER X 4 DOSES ONLY Heparin Sodium (Porcine) 1,000 unit 09/09/17 09:41 09/10/17 11:11 Heparin - IVPUSH 1,000 unit PRN PRN Administration Heparin Heparin Sodium (Porcine) 5,000 unit 09/09/17 09:41 Heparin - IVPUSH PRN PRN Heparin HEPARIN SOD,PORK IN 0.45% NACL 25,000 units in 500 mls @ 20 mls/hr 09/09/17 09 :45 09/12/17 10:28 Heparin-1/2ns 25,000 Units/500 IVPB Not Given TITR [facility] Protocol 1,000 UNITS/HR Sodium Chloride 1,000 mls @ 75 mls/hr 09/12/17 17:44 09/12/17 18:56 Normal Saline - IV 75 mls/hr ASDIR [facility] Administration Morphine Sulfate 2 mg 09/12/17 10:37 Morphine Sulfate IVPUSH Q6H PRN PAIN LEVEL 7 - 10 Mupirocin 1 applic 09/09/17 22:00 09/13/17 11:25 Bactroban Ointment (For Decolonization) - NS 09/13/17 21:59 Not Given BID [facility] Nicotine 14 mg 09/10/17 10:00 09/13/17 11:25 Nicoderm Patch - TD Not Given DAILY [facility] Ondansetron HCl 4 mg 09/09/17 10:20 Zofran Injection IVPUSH Q6H PRN NAUSEA AND/OR VOMITING Promethazine HCl 12.5 mg 09/09/17 10:20 Phenergan Injection - IVPUSH Q6H PRN NAUSEA-FOR RESCUE AFTER 15 MIN Warfarin Sodium 7.5 mg 09/09/17 18:00 09/12/17 18:56 Coumadin - PO 7.5 mg DAILY@1800 [facility] Administration Home Medications Medication Instructions Recorded Aspirin [Aspirin EC] 81 mg PO DAILY 09/01/17 Atorvastatin Calcium 40 mg PO DAILY 09/01/17 Carvedilol 6.25 mg PO DAILY 09/01/17 Warfarin Sodium 6 mg PO DAILY 09/01/17 Albuterol Sulfate Inhaler - 90 mcg PO QID PRN 09/02/17 [Ventolin HFA Inhaler -] Fluticasone/Vilanterol [Breo 1 each IH DAILY 09/02/17 Ellipta 200-25 Mcg INH] Ipratropium/Albuterol Sulfate 4 gm IH QID 09/02/17 [Combivent Respimat Inhal [place]] PE: per resident's note ASSESSMENT AND PLAN: Patient is a 77 y/o man with h/o PAD, CAD, HTN, hypertrophic cardiomyopathy, b/ l SFA occlsion s/p thrombectomy, A fib, non compliance who presented with foot pain and was found to have L LE arterial occlusion # Acute Limb ischemia: L SFA , popliteal, and posterior tibial arteries occlusion/thrombosis s/p angio and TPA , On heparin gtt and coumadin bridge , INR 2.29 today , will give 7.5mg today. cont ASA . Lipitor . is on the case # MELITA: Cr improved , continue to hold ARB for now . # A fib: cont coreg and heparin gtt. f/u wit card as out pt # CAD: last cath with non obstructive disease .continue Lipitor/asa and coreg #-Nicotine dependence: cont patch Dispo: HLOC
[2017-09-13] MEDS: HEPARIN SOD,PORK IN 0.45% NACL 25,000 UNITS/500 ML INFUS.BAG IVPB SCH (12:30)
--- NOTE | 2017-09-13 13:52 | PN ---
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 - Current Medication List Current Medications: Active Medications Acetaminophen (Tylenol -) 650 mg PO Q6H PRN PRN Reason: FEVER Last Admin: 09/12/17 21:01 Dose: 650 mg Aspirin (Ecotrin -) 81 mg PO DAILY [facility] Last Admin: 09/13/17 11:24 Dose: 81 mg Atorvastatin Calcium (Lipitor -) 40 mg PO HS [facility] Last Admin: 09/12/17 21:01 Dose: 40 mg Carvedilol (Coreg -) 6.25 mg PO BID [facility] Last Admin: 09/13/17 11:25 Dose: 6.25 mg Chlorhexidine Gluconate (Hibiclens For Decolonization -) 1 applic TP [facility] Last Admin: 09/12/17 21:01 Dose: Not Given Fentanyl (Sublimaze Injection -) 50 mcg IVPUSH [id number] PRN PRN Reason: PAIN-PACU ORDER X 4 DOSES ONLY Heparin Sodium (Porcine) (Heparin -) 1,000 unit IVPUSH PRN PRN PRN Reason: Heparin Last Admin: 09/10/17 11:11 Dose: 1,000 unit Heparin Sodium (Porcine) (Heparin -) 5,000 unit IVPUSH PRN PRN PRN Reason: Heparin HEPARIN SOD,PORK IN 0.45% NACL (Heparin-1/2ns 25,000 Units/500) 25,000 units in 500 mls @ 20 mls/hr IVPB TITR [facility]; Protocol Last Admin: 09/13/17 12:30 Dose: 1,300 units/hr, 26 mls/hr Sodium Chloride (Normal Saline -) 1,000 mls @ 75 mls/hr IV ASDIR [facility] Last Admin: 09/12/17 18:56 Dose: 75 mls/hr Morphine Sulfate (Morphine Sulfate) 2 mg IVPUSH Q6H PRN PRN Reason: PAIN LEVEL 7 - 10 Mupirocin (Bactroban Ointment (For Decolonization) -) 1 applic NS BID [facility] Stop: 09/13/17 21:59 Last Admin: 09/13/17 11:25 Dose: Not Given Nicotine (Nicoderm Patch -) 14 mg TD DAILY [facility] Last Admin: 09/13/17 11:25 Dose: Not Given Ondansetron HCl (Zofran Injection) 4 mg IVPUSH Q6H PRN PRN Reason: NAUSEA AND/OR VOMITING Promethazine HCl (Phenergan Injection -) 12.5 mg IVPUSH Q6H PRN PRN Reason: NAUSEA-FOR RESCUE AFTER 15 MIN Warfarin Sodium (Coumadin -) 7.5 mg PO DAILY@1800 [facility] Last Admin: 09/12/17 18:56 Dose: 7.5 mg - Objective Vital Signs: Vital Signs Temperature 98.6 F 09/13/17 13:17 Pulse Rate 101 H 09/13/17 13:17 Respiratory Rate 18 09/13/17 13:17 Blood Pressure 144/97 09/13/17 13:17 O2 Sat by Pulse Oximetry (%) 98 09/12/17 21:00 Constitutional: Yes: No Distress, Calm Neck: Yes: Supple Cardiovascular: Yes: Regular Rate and Rhythm Respiratory: Yes: Regular, CTA Bilaterally Gastrointestinal: Yes: Normal Bowel Sounds, Soft Edema: Yes Edema: LLE: Trace, RLE: Trace Labs: CBC, BMP 09/13/17 06:00 09/13/17 06:00 INR, PTT INR 2.27 (0.82-1.09) H D 09/13/17 06:00 Fibrinogen 205.0 mg/dL (238-498) L D 09/09/17 07:00 Problem List - Problems (1) [id number] kidney injury Code(s): N17.9 - ACUTE KIDNEY FAILURE, UNSPECIFIED; N18.9 - CHRONIC KIDNEY DISEASE, UNSPECIFIED Qualifiers: Chronic kidney disease stage: stage 2 (mild) (2) Demand ischemia Code(s): I24.8 - OTHER FORMS OF ACUTE ISCHEMIC HEART DISEASE (3) Anticoagulant long-term use Code(s): Z79.01 - GROUP HOME (CURRENT) USE OF ANTICOAGULANTS (4) Coronary artery disease Code(s): I25.10 - ATHSCL HEART DISEASE OF [place] CORONARY ARTERY W/O ANG PCTRS Qualifiers: Coronary Disease-Associated Artery/Lesion type: hoh artery [place] vs. transplanted heart: hoh heart Associated angina: without angina Qualified Code(s): I25.10 - Atherosclerotic heart disease of hoh coronary artery without angina pectoris (5) Diastolic dysfunction without heart failure Code(s): I51.9 - HEART DISEASE, UNSPECIFIED (6) HTN (hypertension) Code(s): I10 - ESSENTIAL (PRIMARY) HYPERTENSION Qualifiers: Hypertension type: essential hypertension Qualified Code(s): I10 - Essential (primary) hypertension (7) Hypertrophic cardiomyopathy Code(s): I42.2 - OTHER HYPERTROPHIC CARDIOMYOPATHY (8) Peripheral arterial disease Code(s): I73.9 - PERIPHERAL VASCULAR DISEASE, UNSPECIFIED Assessment/Plan R&LHc at [facility] 04/20/2016 showing nonobstructive CAD, severe LV apical hypertrophic cardiomyopathy, mildly elevated right sided pressures, Mynx deployed right TAX REPRESENTATIVE access site. 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 1. PAD with left limb ischemia referable to SFA occlusion s/p RIM TURNING MACHINE OPERATOR and stent 2. History of bilateral SFA occlusion post thrombectomy, most likely embolic disease related to persistent atrial fibrillation with [id number] score of 6, history of poor compliance with therapy administration and medical F/U 3. CAD with demand ischemic injury, non obstructive CAD on R&LHc coronary angiogrpahy angina pectoris 4. LV diastolic dysfunction related to apical hypertrophic cardiomyopathy, chronic class I-II NYHA classification, compensated/euvolemic 5. Persistent atrial flutter [id number] score of 6 on Coumadin therapy, with therapeutic INR 6. HTN 7. Acute on CKD improving 8. Poor compliance with medical therapy administration and medical F/U 9. Tobacco abuse PLAN: 1. Coumadin per INR, d/c heparin gtt 2. Continue Carvedilol 6.25 bid 3. Continue ASA 81 qd 4. Continue Lipitor 40 qhs 5. Consider outpatient DCCV for the above noted atrial arrhythmia once clinically stabilized. Patient was advised to follow up in office (previously been to office) 6. D/c planning
--- NOTE | 2017-09-13 14:30 | PN ---
Physical Exam: SUBJECTIVE: Patient seen and examined at bedside. Overnight, pt refusing physical therapy. Today, pt in good spirits. Very pleasant, compliant with physical exam. Denies CLAROS, fever, or chills. OBJECTIVE: Vital Signs Period Temp Pulse Resp BP Sys/Ariza Pulse Ox Last 24 Hr 97.5 F-98.6 F 54-106 18-20 144-154/87-97 98 GENERAL: Very pleasant today. awake, alert, and fully oriented, in no acute distress. HEAD: Normal with no signs of trauma. EYES: PERRL, extraocular movements intact, sclera anicteric, conjunctiva clear. ENT: Ears normal, nares patent, oropharynx clear without exudates NECK: Trachea midline, supple. LUNGS: Breath sounds equal, clear to auscultation bilaterally, no wheezes, no crackles, no accessory muscle use. HEART: Regular rate and rhythm, S1, S2-in sinus without murmur, rub or gallop. ABDOMEN: Soft, nontender, nondistended, normoactive bowel sounds, no guarding, no rebound EXTREMITIES: 1+ dp pulses bilaterally. Improved L foot- less erythema, less edema. 1+ dp pulse more appreciable today . +psoriatic rash medially. NEUROLOGICAL: Cranial nerves II through XII grossly intact. Normal speech PSYCH: Normal mood, normal affect. SKIN: Warm, dry, normal turgor Laboratory Results - last 24 hr 09/13/17 09/13/17 09/13/17 06:00 06:00 06:00 WBC 10.4 H RBC 3.23 L Hgb 10.0 L Hct 30.1 L MCV 93.3 MCH 31.1 MCHC 33.4 RDW 15.8 Plt Count 320 MPV 8.6 PT with INR INR PTT (Actin FS) 71.5 H Sodium 142 Potassium 4.7 Chloride 112 H Carbon Dioxide 22 Anion Gap 8 BUN 13 Creatinine 1.3 Random Glucose 96 Calcium 7.9 L 09/13/17 06:00 MPV PT with INR 25.60 H INR 2.27 H D Creatinine Active Medications Generic Name Dose Route Start Last Admin Trade Name Freq PRN Reason Stop Dose Admin Acetaminophen 650 mg 09/09/17 10:20 09/12/17 21:01 Tylenol - PO 650 mg Q6H PRN Administration FEVER Aspirin 81 mg 09/10/17 10:00 09/13/17 11:24 Ecotrin - PO 81 mg DAILY [facility] Administration Atorvastatin Calcium 40 mg 09/09/17 22:00 09/12/17 21:01 Lipitor - PO 40 mg HS [facility] Administration Carvedilol 6.25 mg 09/09/17 22:00 09/13/17 11:25 Coreg - PO 6.25 mg BID [facility] Administration Chlorhexidine Gluconate 1 applic 09/09/17 22:00 09/12/17 21:01 Hibiclens For Decolonization - TP Not Given HS [facility] Fentanyl 50 mcg 09/09/17 10:20 Sublimaze Injection - IVPUSH [id number] PRN PAIN-PACU ORDER X 4 DOSES ONLY Sodium Chloride 1,000 mls @ 75 mls/hr 09/12/17 17:44 09/12/17 18:56 Normal Saline - IV 75 mls/hr ASDIR [facility] Administration Morphine Sulfate 2 mg 09/12/17 10:37 Morphine Sulfate IVPUSH Q6H PRN PAIN LEVEL 7 - 10 Mupirocin 1 applic 09/09/17 22:00 09/13/17 11:25 Bactroban Ointment (For Decolonization) - NS 09/13/17 21:59 Not Given BID [facility] Nicotine 14 mg 09/10/17 10:00 09/13/17 11:25 Nicoderm Patch - TD Not Given DAILY [facility] Ondansetron HCl 4 mg 09/09/17 10:20 Zofran Injection IVPUSH Q6H PRN NAUSEA AND/OR VOMITING Promethazine HCl 12.5 mg 09/09/17 10:20 Phenergan Injection - IVPUSH Q6H PRN NAUSEA-FOR RESCUE AFTER 15 MIN Warfarin Sodium 7.5 mg 09/09/17 18:00 09/12/17 18:56 Coumadin - PO 7.5 mg DAILY@1800 [facility] Administration IMAGING -09/02/17: Duplex, arterial duplex lower ext: no evidence of DVT in both lower extremities. compared to prior b/l lower extremity duplex arterial US from , in the RLE there is now normal triphasic waveform in the common femoral artery, superficial femoral, popliteal, posterior tibial a. atheromatous plaques are present throughout. in the LLE, there is normal triphasic waveform in L common femoral a. there is no definite flow within the L superficial femoral, popliteal, and posterior tibial a. consistent with occlusion. diffuse atheromatous plaques are present throughout. -09/02/17: CXR: since prior study 09/02/17, new congestive changes with persistently elevated L hemidiaphragm and some bibasilar atelctatic/ infiltrative changes with the L more affected than the R. there may be some L fluid. correlation recommended. -09/02/17: L foot XR: pes planus deformity, exostosis/degenerative change of navicular bone. bunion formation of 1st MTP with extenive arthritic changes. the toes are partially flexed with arthritic changes. no sign of calcaneal spurring. blastic changes are not seen. there appears to be a hypodene/cystic change at the base of the proximal phalynx of the 2nd metatarsal. correlation recommended. if symptoms persist, further imaging and ortho consultation may be needed. Microbiology 09/03/17 10:30 Urine - Urine Clean Catch Urine Culture - Final NO GROWTH OBTAINED 09/02/17 21:40 Blood - Peripheral Venous Blood Culture - Final NO GROWTH AFTER 5 DAYS INCUBATION 09/02/17 21:19 Blood - Peripheral Venous Blood Culture - Final NO GROWTH AFTER 5 DAYS INCUBATION ASSESSMENT/PLAN: 77 y/o M with PMH alcohol abuse, HTN, CAD, afib (on coumadin), PAD s/p thrombectomy 2016, who presented to the ED with acute L foot pain. Pt admitted for acute L foot pain, r/o ischemia. #Acute L foot pain, r/o ischemia -s/p tPA, aortogram, LLE angiogram, thrombolysis -extensive clot needed continuation of hep gtt (started 09/06/17) and tPA -on hep gtt, bridging with coumadin 7.5mg PO qd. -received additional dose coumadin 2.5mg PO yesterday (09/12) -INR improved from 1.65 to 2.27* -will need consistent level, to prevent additional clot develop -Continue asa 81, lipitor 40mg PO qd -Continue to follow INR, PTT -d/w Dr. Rico #MELITA likely 2/2 prerenal -Continue IV NS 75 cc/hr -received contrast for procedure x 2 -Cr improved to 1.3 #Hyperkalemia- resolved #Afib - currently in sinus -continue coreg 6.25mg PO BID -aspirin 81mg PO qd -F/u with cardiology as outpt #HLD -Continue lipitor 40mg PO qd #Smoking cessation -Continue nicotine patch 14mg TD daily #Supratherapeutic INR-resolved #Possible cellulitis-resolved -received clinda -currently monitoring off abx -ucx, blood cx - NGTD #F/E/N IV NS 75 cc/hr Continue to follow lytes diabetic/sodium controlled diet #PPX s/p tPA bridging hep gtt, coumadin #Dispo -continued monitoring med-surg . improved INR, will need consistent stabilization prior to d/c -has been refusing PT -will need to speak to tomorrow about VNS -will need outpatient DC cardioversion 3-4 weeks after on a/c -at home coumadin dose is 6mg -as well as cardio f/u Visit type - Emergency Visit Emergency Visit: No - New Patient This patient is new to me today: No - Critical Care Critical Care patient: No
[2017-09-13] MEDS ORDERED: amLODIPine BESYLATE 5 MG TABLET (FP) PO ONE (18:10)
[2017-09-13] MEDS ORDERED: PT OWN MED DRAWER 7, Y5N ONE (18:32)
[2017-09-13] MEDS: WARFARIN NA 7.5 MG TABLET (FP) PO SCH (18:40)
[2017-09-13] MEDS: CHLORHEXIDINE GLUCONATE 4% CLEANSER FOR DECOLONIZATION TP SCH (21:40)
[2017-09-13] MEDS: ATORVASTATIN CA 40 MG TABLET (FP) PO SCH (21:40)
[2017-09-14 07:57] LABS: BASO % 0.3 % (0-2.0); EOS % 0.3 % (0-4.5); HEMATOCRIT 30.2 % (35.4-49); LYMPH % 17.3 % (8-40); MCHC 33.3 g/dl (32.0-35.9); MEAN PLT VOLUME 8.5 fl (7.5-11.1); MONO % 6.7 % (3.8-10.2); NEUT % 75.4 % (42.8-82.8); PLATELET COUNT 320 K/MM3 (134-434); RBC 3.24 M/mm3 (4.00-5.60); RDW 15.8 % (11.9-15.9); WHITE BLOOD COUNT 11.1 K/mm3 (4.0-10.0)
[2017-09-14 08:12] LABS: CHLORIDE 110 mmol/L (98-107); POTASSIUM 4.6 mmol/L (3.5-5.1); SODIUM 141 mmol/L (136-145)
[2017-09-14 08:23] LABS: ANION GAP 9 (8-16); BLOOD UREA NITROGEN 15 mg/dL (7-18); CALCIUM 8.2 mg/dL (8.5-10.1); CO2 22 mmol/L (21-32); CREATININE 1.3 mg/dL (0.7-1.3); GLUCOSE,RANDOM 88 mg/dL (74-106); MAGNESIUM 1.9 mg/dL (1.8-2.4); PHOSPHOROUS 3.1 mg/dL (2.5-4.9)
[2017-09-14 08:30] LABS: INR 3.27 (0.82-1.09)
--- NOTE | 2017-09-14 09:17 | PN ---
Teaching Attending Note Name of Resident: Jazzmine Forde ATTENDING PHYSICIAN STATEMENT I saw and evaluated the patient. I reviewed the resident's note and discussed the case with the resident. I agree with the resident's findings and plan as documented. SUBJECTIVE: Patient wants to go home. No fever or chills, no shortness of breath. OBJECTIVE: Vital Signs Temperature 99 F 09/14/17 06:00 Pulse Rate 86 09/14/17 06:00 Respiratory Rate 20 09/14/17 06:00 Blood Pressure 119/95 09/14/17 06:00 O2 Sat by Pulse Oximetry (%) 98 09/13/17 21:00 CBCD WBC 11.1 K/mm3 (4.0-10.0) H 09/14/17 06:20 RBC 3.24 M/mm3 (4.00-5.60) L 09/14/17 06:20 Hgb 10.0 GM/dL (11.7-16.9) L 09/14/17 06:20 Hct 30.2 % (35.4-49) L 09/14/17 06:20 MCV 93.0 fl (80-96) 09/14/17 06:20 MCHC 33.3 g/dl (32.0-35.9) 09/14/17 06:20 RDW 15.8 % (11.9-15.9) 09/14/17 06:20 Plt Count 320 K/MM3 (134-434) 09/14/17 06:20 MPV 8.5 fl (7.5-11.1) 09/14/17 06:20 CMP Sodium 141 mmol/L (136-145) 09/14/17 06:20 Potassium 4.6 mmol/L (3.5-5.1) 09/14/17 06:20 Chloride 110 mmol/L (98-107) H 09/14/17 06:20 Carbon Dioxide 22 mmol/L (21-32) 09/14/17 06:20 Anion Gap 9 (8-16) 09/14/17 06:20 BUN 15 mg/dL (7-18) 09/14/17 06:20 Creatinine 1.3 mg/dL (0.7-1.3) 09/14/17 06:20 Creat Clearance w eGFR 58.40 (>60) 09/09/17 07:00 Random Glucose 88 mg/dL (74-106) 09/14/17 06:20 Calcium 8.2 mg/dL (8.5-10.1) L 09/14/17 06:20 Total Bilirubin 0.6 mg/dL (0.2-1.0) 09/09/17 07:00 AST 26 U/L (15-37) 09/09/17 07:00 ALT 37 U/L (12-78) 09/09/17 07:00 Alkaline Phosphatase 109 U/L (45-117) 09/09/17 07:00 Total Protein 6.3 g/dl (6.4-8.2) L 09/09/17 07:00 Albumin 2.1 g/dl (3.4-5.0) L 09/09/17 07:00 CARDIAC ENZYMES Creatine Kinase 227 IU/L (39-308) 09/01/17 22:50 Troponin I 0.35 ng/ml (0.00-0.05) H 09/02/17 08:25 Current Medications Generic Name Dose Route Start Last Admin Trade Name Freq PRN Reason Stop Dose Admin Acetaminophen 650 mg 09/09/17 10:20 09/12/17 21:01 Tylenol - PO 650 mg Q6H PRN Administration FEVER Aspirin 81 mg 09/10/17 10:00 09/13/17 11:24 Ecotrin - PO 81 mg DAILY [facility] Administration Atorvastatin Calcium 40 mg 09/09/17 22:00 09/13/17 21:40 Lipitor - PO 40 mg HS [facility] Administration Carvedilol 6.25 mg 09/09/17 22:00 09/13/17 21:40 Coreg - PO 6.25 mg BID [facility] Administration Chlorhexidine Gluconate 1 applic 09/09/17 22:00 09/13/17 21:40 Hibiclens For Decolonization - TP Not Given HS [facility] Fentanyl 50 mcg 09/09/17 10:20 Sublimaze Injection - IVPUSH [id number] PRN PAIN-PACU ORDER X 4 DOSES ONLY Morphine Sulfate 2 mg 09/12/17 10:37 Morphine Sulfate IVPUSH Q6H PRN PAIN LEVEL 7 - 10 Nicotine 14 mg 09/10/17 10:00 09/13/17 11:25 Nicoderm Patch - TD Not Given DAILY [facility] Ondansetron HCl 4 mg 09/09/17 10:20 Zofran Injection IVPUSH Q6H PRN NAUSEA AND/OR VOMITING Promethazine HCl 12.5 mg 09/09/17 10:20 Phenergan Injection - IVPUSH Q6H PRN NAUSEA-FOR RESCUE AFTER 15 MIN Warfarin Sodium 7.5 mg 09/09/17 18:00 09/13/17 18:40 Coumadin - PO 7.5 mg DAILY@1800 [facility] Administration Home Medications Medication Instructions Recorded Aspirin [Aspirin EC] 81 mg PO DAILY 09/01/17 Atorvastatin Calcium 40 mg PO DAILY 09/01/17 Carvedilol 6.25 mg PO DAILY 09/01/17 Warfarin Sodium 6 mg PO DAILY 09/01/17 Albuterol Sulfate Inhaler - 90 mcg PO QID PRN 09/02/17 [Ventolin HFA Inhaler -] Fluticasone/Vilanterol [Breo 1 each IH DAILY 09/02/17 Ellipta 200-25 Mcg INH] Ipratropium/Albuterol Sulfate 4 gm IH QID 09/02/17 [Combivent Respimat Inhal [place]] Laboratory Tests 04/02/17 04/02/17 04/03/17 20:42 20:42 08:15 INR 7.33 H* D 7.37 H* PTT (Actin FS) 46.6 H 04/04/17 09/11/17 09/12/17 06:40 07:26 06:30 INR 6.19 H* 1.35 H 1.65 H PTT (Actin FS) 09/13/17 09/14/17 06:00 06:20 INR 2.27 H D 3.27 H D PTT (Actin FS) PE: per resident's note ASSESSMENT AND PLAN: Patient is a 77 y/o man with h/o PAD, CAD, HTN, hypertrophic cardiomyopathy, b/ l SFA occlsion s/p thrombectomy, A fib, non compliance who presented with foot pain and was found to have L LE arterial occlusion # Acute Limb ischemia: L SFA , popliteal, and posterior tibial arteries occlusion/thrombosis s/p angio and TPA ,off heparin gtt and INR is 3.27, discussed with , will repeat INR in am , patient will see him in the office and start him on Xarelto since it's covered by his insurance. Patient start the medication if INR below 3.0. Will switch to xarelto since patient has a compliance issue. # MELITA: Cr improved , will continue ARB . # A fib: cont coreg and will place him on Xarelto # CAD: last cath with non obstructive disease .continue Lipitor/asa and coreg #-Nicotine dependence: cont patch patient will follow up with in am , and check his INR if below 3.o will give him an Rx for Xarelto.
[2017-09-14] MEDS: CARVEDILOL 6.25 MG TABLET (FP) PO SCH (10:06)
[2017-09-14] MEDS: NICOTINE 14 MG/24 HOURS TOPICAL PATCH TD SCH (10:06)
[2017-09-14] MEDS: ASPIRIN COATED 81 MG TABLET.EC PO SCH (10:06)
--- NOTE | 2017-09-14 11:48 | PN ---
Progress Note, Physician History of Present Illness: LLE ischemic discomfort improved post left SFA MERCHANDISING LEAD and stent. - Current Medication List Current Medications: Active Medications Acetaminophen (Tylenol -) 650 mg PO Q6H PRN PRN Reason: FEVER Last Admin: 09/12/17 21:01 Dose: 650 mg Aspirin (Ecotrin -) 81 mg PO DAILY [facility] Last Admin: 09/14/17 10:06 Dose: 81 mg Atorvastatin Calcium (Lipitor -) 40 mg PO [facility] Last Admin: 09/13/17 21:40 Dose: 40 mg Carvedilol (Coreg -) 6.25 mg PO BID [facility] Last Admin: 09/14/17 10:06 Dose: 6.25 mg Chlorhexidine Gluconate (Hibiclens For Decolonization -) 1 applic TP [facility] Last Admin: 09/13/17 21:40 Dose: Not Given Fentanyl (Sublimaze Injection -) 50 mcg IVPUSH [id number] PRN PRN Reason: PAIN-PACU ORDER X 4 DOSES ONLY Morphine Sulfate (Morphine Sulfate) 2 mg IVPUSH Q6H PRN PRN Reason: PAIN LEVEL 7 - 10 Nicotine (Nicoderm Patch -) 14 mg TD DAILY [facility] Last Admin: 09/14/17 10:06 Dose: Not Given Ondansetron HCl (Zofran Injection) 4 mg IVPUSH Q6H PRN PRN Reason: NAUSEA AND/OR VOMITING Promethazine HCl (Phenergan Injection -) 12.5 mg IVPUSH Q6H PRN PRN Reason: NAUSEA-FOR RESCUE AFTER 15 MIN Warfarin Sodium (Coumadin -) 7.5 mg PO DAILY@1800 [facility] Last Admin: 09/13/17 18:40 Dose: 7.5 mg - Objective Vital Signs: Vital Signs Temperature 99 F 09/14/17 06:00 Pulse Rate 86 09/14/17 06:00 Respiratory Rate 20 09/14/17 06:00 Blood Pressure 119/95 09/14/17 06:00 O2 Sat by Pulse Oximetry (%) 98 09/13/17 21:00 Constitutional: Yes: No Distress, Calm Neck: Yes: Supple Cardiovascular: Yes: Pulse Irregular Respiratory: Yes: Regular, CTA Bilaterally Gastrointestinal: Yes: Normal Bowel Sounds, Soft Edema: No Labs: CBC, BMP 09/14/17 06:20 09/14/17 06:20 INR, PTT INR 3.27 (0.82-1.09) H D 09/14/17 06:20 Fibrinogen 205.0 mg/dL (238-498) L D 09/09/17 07:00 Problem List - Problems (1) [id number] kidney injury Code(s): N17.9 - ACUTE KIDNEY FAILURE, UNSPECIFIED; N18.9 - CHRONIC KIDNEY DISEASE, UNSPECIFIED Qualifiers: Chronic kidney disease stage: stage 2 (mild) (2) Demand ischemia Code(s): I24.8 - OTHER FORMS OF ACUTE ISCHEMIC HEART DISEASE (3) Anticoagulant long-term use Code(s): Z79.01 - [place] (CURRENT) USE OF ANTICOAGULANTS (4) Coronary artery disease Code(s): I25.10 - ATHSCL HEART DISEASE OF [place] CORONARY ARTERY W/O ANG PCTRS Qualifiers: Coronary Disease-Associated Artery/Lesion type: [place] artery [place] vs. transplanted heart: [place] heart Associated angina: without angina Qualified Code(s): I25.10 - Atherosclerotic heart disease of [place] coronary artery without angina pectoris (5) Diastolic dysfunction without heart failure Code(s): I51.9 - HEART DISEASE, UNSPECIFIED (6) HTN (hypertension) Code(s): I10 - ESSENTIAL (PRIMARY) HYPERTENSION Qualifiers: Hypertension type: essential hypertension Qualified Code(s): I10 - Essential (primary) hypertension (7) Hypertrophic cardiomyopathy Code(s): I42.2 - OTHER HYPERTROPHIC CARDIOMYOPATHY (8) Peripheral arterial disease Code(s): I73.9 - PERIPHERAL VASCULAR DISEASE, UNSPECIFIED Assessment/Plan R&LHc at [facility] 04/20/2016 showing nonobstructive CAD, severe LV apical hypertrophic cardiomyopathy, mildly elevated right sided pressures, Mynx deployed right SET UP INSPECTOR access site. 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 1. PAD with left limb ischemia referable to SFA occlusion s/p MERCHANDISING LEAD and stent 2. History of bilateral SFA occlusion post thrombectomy, most likely embolic disease related to persistent atrial fibrillation with [id number] score of 6, history of poor compliance with therapy administration and medical F/U 3. CAD with demand ischemic injury, non obstructive CAD on R&LHc coronary angiogrpahy angina pectoris 4. LV diastolic dysfunction related to apical hypertrophic cardiomyopathy, chronic class I-II NYHA classification, compensated/euvolemic 5. Persistent atrial flutter [id number] score of 6 on Coumadin therapy, with supratherapeutic INR 6. HTN 7. Acute on CKD improving 8. Poor compliance with medical therapy administration and medical F/U 9. Tobacco abuse PLAN: 1. D/w primary team, plan to change from Coumadin to Xarelto 20 qd once INR<3.0 2. Continue Carvedilol 6.25 bid 3. Continue ASA 81 qd 4. Continue Lipitor 40 qhs 5. Consider outpatient DCCV for the above noted atrial arrhythmia once clinically stabilized. Patient was advised to follow up in office (previously been to office) 6. D/c planning
[2017-09-14 13:47] VITALS: BP 121/63; PULSE 90; TEMP 98.6
--- NOTE | 2017-09-14 15:33 | DS ---
Physical Exam: SUBJECTIVE: Patient seen and examined at bedside. Overnight, pt with elevated BP (154/109) thus received norvasc 5mg PO x 1. Today, pt in good spirits, without complaint. OOB in chair, talking with neighbor. Discharge plan discussed at length with Mr. Patterson, expressed verbal understanding. OBJECTIVE: Vital Signs Period Temp Pulse Resp BP Sys/Ariza Pulse Ox Last 24 Hr 98.3 F-99 F 86-105 18-20 119-154/63-109 98-98 PHYSICAL EXAM GENERAL: The patient is OOB in a chair, awake, alert, and fully oriented, in no acute distress. Talking with neighbor HEAD: Normal with no signs of trauma. EYES: PERRL, extraocular movements intact, sclera anicteric, conjunctiva clear. ENT: Ears normal, nares patent, oropharynx clear without exudates, moist mucous membranes. NECK: Trachea midline, supple. LUNGS: Breath sounds equal, clear to auscultation bilaterally, no wheezes, no crackles, no accessory muscle use. +Increased expiratory phase HEART: Regular rate and rhythm-in sinus , S1, S2 without murmur, rub or gallop. ABDOMEN: Soft, nontender, nondistended, normoactive bowel sounds, no guarding, no rebound EXTREMITIES: 1+ b/l dp pulses. improved edema, erythema in L foot. +psoriatic rash-medial, instep NEUROLOGICAL: Cranial nerves II through XII grossly intact. Able to rosas, invert ankle PSYCH: Positive mood, normal affect. SKIN: Warm, dry, normal turgor LABS PTT TREND 09/01/17 09/02/17 09/02/17 22:50 08:25 21:19 PTT (Actin FS) 38.6 H 41.6 H 39.9 H 09/07/17 09/07/17 09/08/17 10:28 22:30 06:10 PTT (Actin FS) 41.7 H 44.6 H 46.3 H 09/08/17 09/08/17 09/09/17 12:50 23:00 07:00 PTT (Actin FS) 55.5 H 30.2 D 32.2 09/09/17 09/09/17 09/10/17 16:15 21:40 06:30 PTT (Actin FS) 46.6 H D 44.2 H 41.1 H 09/10/17 09/10/17 09/11/17 15:15 16:50 07:42 PTT (Actin FS) 57.3 H D 55.3 H 55.6 H 09/12/17 09/13/17 09/14/17 06:30 06:00 06:20 PTT (Actin FS) 62.7 H 71.5 H 35.2 H D INR TREND 09/01/17 09/02/17 09/02/17 22:50 08:25 21:19 INR 3.97 H 4.15 H* 4.88 H* 09/03/17 09/04/17 09/05/17 06:00 08:55 06:43 INR 5.08 H* 4.28 H* 2.58 H D 09/06/17 09/07/17 09/08/17 09:50 09:15 09:30 INR 1.79 H D 1.46 H 1.40 H 09/09/17 09/10/17 09/11/17 07:00 06:00 07:26 INR 1.48 H 1.40 H 1.35 H 09/12/17 09/13/17 09/14/17 06:30 06:00 06:20 INR 1.65 H 2.27 H D 3.27 H D CBC TREND 09/03/17 09/04/17 09/05/17 06:00 07:00 06:43 WBC 14.7 H 12.0 H 9.2 Hgb 11.0 L 10.0 L 10.4 L Hct 32.7 L 30.4 L 31.7 L RDW Plt Count 266 264 287 09/09/17 09/10/17 09/13/17 07:00 06:30 06:00 WBC 11.3 H 8.4 10.4 H Hgb 10.5 L 9.8 L 10.0 L Hct 32.0 L 29.2 L 30.1 L RDW 15.8 15.8 Plt Count 282 09/14/17 06:20 WBC 11.1 H Hgb 10.0 L Hct 30.2 L RDW 15.8 Plt Count RENAL FUNCTION 09/01/17 09/02/17 09/02/17 22:50 08:25 21:19 BUN 16 D 18 22 H D Creatinine 1.7 H D 1.9 H 1.9 H 0527/18 05/28/18 05/29/18 06:00 07:00 06:43 BUN 22 H 21 H 18 Creatinine 1.8 H 1.6 H 1.5 H 09/07/17 09/07/17 09/08/17 06:20 12:20 06:10 BUN 14 14 15 Creatinine 1.3 1.2 1.2 09/09/17 09/09/17 09/10/17 00:20 07:00 06:30 BUN 16 16 16 Creatinine 1.1 1.2 1.5 H D 09/11/17 09/12/17 09/14/17 07:42 06:20 06:20 BUN 12 D 11 15 Creatinine 1.4 H 1.3 1.3 URINE/MISCELLANEOUS 09/01/17 09/03/17 22:50 10:30 Urine Protein 1+ H Urine Glucose (UA) Negative Urine Ketones Trace H Urine Blood 1+ H Urine Nitrite Negative Ur Leukocyte Esterase Negative Alcohol, Quantitative < 5.0 IMAGING -09/02/17: Duplex, arterial duplex lower ext: no evidence of DVT in both lower extremities. compared to prior b/l lower extremity duplex arterial US from , in the RLE there is now normal triphasic waveform in the common femoral artery, superficial femoral, popliteal, posterior tibial a. atheromatous plaques are present throughout. in the LLE, there is normal triphasic waveform in L common femoral a. there is no definite flow within the L superficial femoral, popliteal, and posterior tibial a. consistent with occlusion. diffuse atheromatous plaques are present throughout. -09/02/17: CXR: since prior study 09/02/17, new congestive changes with persistently elevated L hemidiaphragm and some bibasilar atelctatic/ infiltrative changes with the L more affected than the R. there may be some L fluid. correlation recommended. -09/02/17: L foot XR: pes planus deformity, exostosis/degenerative change of navicular bone. bunion formation of 1st MTP with extenive arthritic changes. the toes are partially flexed with arthritic changes. no sign of calcaneal spurring. blastic changes are not seen. there appears to be a hypodene/cystic change at the base of the proximal phalynx of the 2nd metatarsal. correlation recommended. if symptoms persist, further imaging and ortho consultation may be needed. Microbiology 09/03/17 10:30 Urine - Urine Clean Catch Urine Culture - Final NO GROWTH OBTAINED 09/02/17 21:40 Blood - Peripheral Venous Blood Culture - Final NO GROWTH AFTER 5 DAYS INCUBATION 09/02/17 21:19 Blood - Peripheral Venous Blood Culture - Final NO GROWTH AFTER 5 DAYS INCUBATION Procedures -09/08/17: Pre-operative diagnosis: LLE ischemia. Operation: Aortogram, LLE angiogram, thrombolysis. Findings: Thrombosis LLE. Surgeon: Dr. Garrett Rico -09/09/17: Pre-operative diagnosis: LLE thrombosis, ischemia. Operation: LLE angiogram, SFA Angioplasty with stent placement. Surgeon: Dr. Garrett Rico HOSPITAL COURSE: Date of Admission:09/02/17 Date of Discharge: 09/14/17 Admit diagnosis: Acute L foot pain r/o ischemia 77 y/o male with a PMH of Alcohol abuse, HTN, CAD, ischemic cardiomyopathy, Afib on coumadin 6mg , PAD who presented to the ED c/o severe L foot pain. As per pt, on admission, pain was associated with edema that started three days prior. During this time, he described the pain as 10/10, and radiating to his toes. Pain was so severe that he has had trouble ambulating. Pt admitted for acute L foot pain, r/o ischemia. While pt was hospitalized, he was managed for the following: Acute L foot pain, r/o ischemia While in the hospital, d/t patient's decreased posterior tibial and dorsalis pedis pulses in L foot, as well as erythema and edema in the area, he underwent arterial duplex which revealed: no evidence of DVT in both lower extremities. in the LLE, no definite flow within the L superficial femoral, popliteal, and posterior tibial a. consistent with occlusion. Pt was seen by vascular and medicine teams, and placed on heparin gtt. He also received tPA for thrombolysis , as pt was found to have an extensive clot in LLE. Pt was subsequently bridged with coumadin, 7.5mg PO qd and his INR was followed daily. When supratherapeutic , it was held. On discharge, pt with INR of 3.27. Discussed at length with patient, importance of checking INR tomorrow morning (09/15/17) at hospital on first floor. Given prescription for lab. Pt will check INR and see Dr. Rico for follow-up in order to authorize pick-up of xarelto 20mg qd, which patient will be switched to. Instructions clearly written in packet, discussed with patient, and pharmacy ([facility]) called, d/w pharmacist at length. Pager number given for follow-up. During this time, pt will also continue on aspirin 81mg PO qd, and lipitor 40mg PO qd. Acute kidney injury likely 2/2 prerenal causes During his hospitalization, pt's Creatinine was found to be elevated reaching a max of 1.9. As pt underwent two procedures with contrast, he was given sufficient IVF to avoid contrast induced nephropathy. Initially he was placed on IV NS 125 cc/hr, however this was later reduced to 75 cc/hr. Day prior to discharge, pt removed his IV and was thus encouraged PO intake. His Creatinine improved to 1.3 on d/c. Atrial fibrillation Patient was seen by the cardiology team, and was continued on coreg 6.25mg PO BID, aspirin 81mg PO qd and will need to follow up as an outpatient. Pt will likely need DC conversion 3-4 weeks after he is on anticoagulation. Possible cellulitis, LLE Upon admission, pt was thought to have cellulitis due to his lower extremity's presentation of erythema, edema. He received clindamycin, however it was discontinued shortly after. Urine cx and blood cx were negative for growth. Minutes to complete discharge: 50 Discharge Summary Reason For Visit: PERIPHERAL ARTERIAL DISEASE Current Active Problems Rajpt-qw-euiabgn kidney injury (Acute) Pre-procedural cardiovascular examination (Acute) Vascular occlusion (Acute) Condition: Fair - Instructions Diet, Activity, Other Instructions: You were in the hospital because you had pain in your left foot. You had imaging tests done which showed that you had a clot in your left leg. Specifically, the clot blocked blood flow to the left superficial femoral, popliteal, and posterior tibial arteries in your leg. You had a procedure done with the vascular surgeon, Dr. Rico for this reason to help blood flow. Your visit you were seen by the vascular surgery, medicine, and cardiology teams. Procedures -On September 09, 2017, you had a procedure called a Left leg angiogram, with superficial femoral artery angioplasty with stent placement. this was done with your vascular surgeon, Dr. Rico. Labs VERY IMPORTANT: You must have your INR checked tomorrow (09/15/17). This can be done on the 1st Floor of the hospital in the registration center. If you are unsure, please go to Dr. Rico's office on floor 5. (located at [address]). We will give you a prescription for this. This must be done tomorrow to check your INR level and see if it is high. Medications -You may continue your home medications. -Please note the following important change: -Coumadin/Warfarin has been stopped -continue the following medications: -Aspirin 81mg daily -Lipitor 40mg daily at night -Coreg 6.25mg twice a day -Nicotine patch apply daily -Albuterol and Breo inhalers -You must have your INR checked tomorrow morning. Then you will be started on Xarelto 20 mg daily. This is a new blood thinner medication. However you must NOT start this medication until you have your INR checked tomorrow, and see Dr. Rico. Follow-up -Please follow up with Dr. Garrett Rico tomorrow, 09/15/17 9AM. -You must have your INR checked tomorrow morning -only after you are cleared by Dr. Rico, THEN you will start xarelto 20mg daily. -Please also follow-up with your heart doctor, Dr. Sam in 1 week. He saw you while you were in the hospital. -Please also follow up with Dr. [place] at the [facility] on Monday09/19/17 to follow up. We hope you feel better soon. Good luck Referrals: Lake Denton MD [Staff Physician] - 09/19/17 10:00 am Eliel Sam MD [Staff Physician] - 1 Week Garrett Rico MD [Non Staff, Medical] - 09/15/17 9:00 am Disposition: HOME - Home Medications Comprehensive Discharge Medication List: Ambulatory Orders Aspirin [Aspirin EC] 81 mg PO DAILY 09/01/17 Atorvastatin Calcium 40 mg PO DAILY 09/01/17 Albuterol Sulfate Inhaler - [Ventolin HFA Inhaler -] 90 mcg PO QID PRN 09/02/17 Fluticasone/Vilanterol [Breo Ellipta 200-25 Mcg INH] 1 each IH DAILY 09/02/17 Ipratropium/Albuterol Sulfate [Combivent Respimat 20-100 Mcg] 4 gm IH QID Carvedilol [Coreg -] 6.25 mg PO BID #60 tablet 09/14/17 Miscellaneous Drug Not In Syst [Outpatient Lab Test] 1 each ASDIR #1 misc 10/25 Nicotine Patch [Nicoderm Patch -] 14 mg TD DAILY 30 Days #30 patch 09/14/17 Rivaroxaban [Xarelto -] 20 mg PO DAILY #30 tablet 09/14/17 This patient is new to me today: No Emergency Visit: No Critical Care patient: No - Discharge Referral Referred to [facility] No
== END 2017-09-14 15:57 | disposition home or self-care (01) | DRG 253 ==
LOC: SUPCPDRO 20:48 → JER 20:48 → JERBED 09-02 07:52 → J8W 09-02 10:06 → JICU 09-08 18:36 → J8W 09-09 11:17
PROVIDERS: ADMIT Internal Medicine; ATTEND Internal Medicine
PROC: 3E03317 Introduction of Other Thrombolytic into Peripheral Vein, Percutaneous Approach (ICD-10-PCS; 2017-09-09)
PROC: B40DYZZ Plain Radiography of Aorta and Bilateral Lower Extremity Arteries using Other Contrast (ICD-10-PCS; 2017-09-09)
PROC: 047L3DZ Dilation of Left Femoral Artery with Intraluminal Device, Percutaneous Approach (ICD-10-PCS; principal; 2017-09-09 08:09)
DX: I74.3 Embolism and thrombosis of arteries of the lower extremities (principal); N17.9 Acute kidney failure, unspecified; L03.116 Cellulitis of left lower limb; I48.92 Unspecified atrial flutter; I42.2 Other hypertrophic cardiomyopathy; I73.9 Peripheral vascular disease, unspecified; F10.10 Alcohol abuse, uncomplicated; I25.10 Atherosclerotic heart disease of native coronary artery without angina pectoris; R79.1 Abnormal coagulation profile; I12.9 Hypertensive chronic kidney disease with stage 1 through stage 4 chronic kidney disease, or unspecified chronic kidney disease; N18.9 Chronic kidney disease, unspecified; E87.5 Hyperkalemia; Z72.0 Tobacco use
CPT/HCPCS: 36415; 71045-TC-FY; 73630-TC-LT; 76000-TC-FY; 80048; 80053; 80061; 80307; 81003; 81015; 82436; 82550; 82553; 82570; 83605; 83721; 83735; 83880; 84100; 84133; 84300; 84484; 85025; 85027; 85384; 85610; 85730; 87040; 87086; 93005; 93010; 93926-TC; 93970-TC; 94760; 97161-GP; 99283-25; J1644; J2997; J7030

== ENCOUNTER 2018-01-21 18:29 | Inpatient (IN) | payer OTHER ==
[2018-01-21] MEDS ORDERED: SODIUM CHLORIDE 0.9% 1000 ML INFUS.BAG IV STA (19:24)
--- NOTE | 2018-01-21 19:28 | PDOC ---
Attending Attestation - HPI HPI: 01/21/18 19:40 The patient is a 77 year old male, with a significant past medical history of htn, atrial fibrillation, CAD, PVD (s/p thrombectomy, s/p popliteal stent, currently taking Xarelto and last admitted in November), who presents to the emergency department with weakness and nausea while walking in the store today. He states he has never experienced these symptoms in the past. The patient denies chest pain, shortness of breath, headache and dizziness. The patient denies fever, chills, nausea, vomit, diarrhea and constipation. The patient denies dysuria, frequency, urgency and hematuria. Allergies: Valsartan Past surgical history: multiple vascular Sx Social history: former smoker, reports ETOH use PCP - Dr. Zully Serna - Medical Decision Making 01/21/18 19:40 Documentation prepared by Tuyet Swanson, acting as medical accounts receivable specialist for Destini Sam MD <Tuyet Swanson - Last Filed: 01/21/18 19:40> - Resident Resident Name: Saray Chavarria - ED Attending Attestation I have performed the following: I have examined & evaluated the patient, The case was reviewed & discussed with the resident, I agree w/resident's findings & plan, Exceptions are as noted - Physicial Exam PE: GENERAL: Awake, alert, and fully oriented, in no acute distress HEAD: No signs of trauma EYES: PERRLA, EOMI, sclera anicteric, conjunctiva clear ENT: Auricles normal inspection, hearing grossly normal, nares patent, oropharynx clear without exudates. Dry mucosa NECK: Normal ROM, supple, no lymphadenopathy, JVD, or masses LUNGS: Breath sounds equal, clear to auscultation bilaterally. No wheezes, and no crackles HEART: Regular rate and rhythm, normal S1 and S2, no murmurs, rubs or gallops ABDOMEN: Soft, nontender, normoactive bowel sounds. No guarding, no rebound. No masses EXTREMITIES: Normal range of motion, no edema. No clubbing or cyanosis. No cords, erythema, or tenderness NEUROLOGICAL: Cranial nerves II through XII grossly intact. Normal speech. Motor and sensation intact. SKIN: Cool, Dry, normal turgor, no rashes or lesions noted. - Medical Decision Making Pt found to have hypothermia, unknown etiology. Sepsis protocol initiated, will place under radha hugger. Will plan for admission. <Destini Sam - Last Filed: 01/21/18 21:21>
--- NOTE | 2018-01-21 19:37 | PDOC ---
History of Present Illness - General Chief Complaint: Weakness Stated Complaint: WEAKNESS Time Seen by Provider: 01/21/18 18:56 History Source: Patient Exam Limitations: No Limitations - History of Present Illness Initial Comments: 01/21/18 19:25 This is a 77 YOM with h/o CAD, HTN, HLD, paroxysmal A-fib, MELITA (baseline Cr 1.2) , PVD distal left foot ischemia (admitted here in 11/2017), left popliteal artery stenting with multiple prior occlusions of stent, nonadherence to medications for this, also EtOH use and prior smoker, who p/w new onset nausea and weakness on exertion today which he denies ever having experienced before. He explains that he was shopping in the grocery store and had to stop multiple times because of the weakness. The store management called 911 because they thought he needed medical attention. EMS measured his BP to be hypotensive but he was a/ox4 for them. The patient denies any recent f/c, vomiting, diarrhea, constipation, black/bloody stool, white stool, headache, vision change, SOB, wheezing, cough, chest pain, abdominal pain, dysuria, hematuria, or other symptoms. Past History - Past Medical History Allergies/Adverse Reactions: Allergies Allergy/AdvReac Type Severity Reaction Status Date / Time valsartan Allergy Severe Verified 01/21/18 18:52 Home Medications: Ambulatory Orders Aspirin Coated [Ecotrin -] 81 mg PO DAILY #30 tablet.ec 10/19/17 Atorvastatin Ca [Lipitor] 40 mg PO HS #30 tablet 10/19/17 Carvedilol [Coreg -] 6.25 mg PO BID #60 tablet 10/19/17 Rivaroxaban [Xarelto -] 20 mg PO DAILY@1800 #30 tablet 10/19/17 Aspirin [ASA -] 1 tab PO DAILY 11/27/17 Anemia: No Asthma: Yes Cancer: No Cardiac Disorders: Yes (PAROXYSMAL A.FIBRILLATION/A.FLUTTER) COPD: No Diabetes: Yes (BORDERLINE) HTN: Yes (BORDERLINE) Hypercholesterolemia: Yes - Surgical History Abdominal Surgery: Yes (HERNIA REPAIR) Cardiac Surgery: Yes (CARDIAC CATHERIZATION/CORONARY ANGIOGRAPHY) Orthopedic Surgery: Yes (Bone marrow biopsy) - Immunization History Immunization Up to Date: Yes - Suicide/Smoking/Psychosocial Hx Smoking History: Former smoker Have you smoked in the past 12 months: No Number of Cigarettes Smoked Daily: 10 If you are a former smoker, when did you quit?: 12.28.16 Information on smoking cessation initiated: No 'Breaking Loose' booklet given: 09/02/17 Hx Alcohol Use: No Drug/Substance Use Hx: No Substance Use Type: None Hx Substance Use Treatment: No Review of Systems - Review of Systems Able to Perform ROS?: Yes Comments:: 01/21/18 19:45 GEN: generalized weakness, malaise, no fever, chills, change in activity level, unintentional weight change, loss of appetite, or difficulty sleeping HEENT: no ear pain, congestion, sore throat, rhinorrhea, nosebleed, vision change, or eye pain CV: no chest pain, palpitations, lightheadedess, or syncope RESP: no cough, wheezing, or SOB GI: nausea, no vomiting, diarrhea, constipation, black/bloody stool, abdominal pain, or appetite change : no dysuria, hematuria, frequency, incontinence, retention, pruritis, bleeding, or discharge MSK: weakness, no joint swelling, limping, joint pain, or muscle pain NEURO: no headaches, seizures, or head trauma PSYCH: no insomnia, or depression SKIN: no jaundice, rashes, cuts, bruises, scars, or lesions *Physical Exam - Vital Signs Last Vital Signs Temp Pulse Resp BP Pulse Ox 95.6 F L 79 18 94/64 98 01/21/18 18:49 01/21/18 18:49 01/21/18 18:49 01/21/18 18:49 01/21/18 18:49 01/21/18 19:47 GENERAL: nontoxic appearing, A/Ox4, no acute distress, speaking in full sentences with some speech latency, otherwise answers questions appropriately, + sense of humor HEENT: Poor dentition, PERRLA, EOMI, moist mucous membranes, no posterior pharyngeal erythema, no tonsillar swelling or exudates, no cervical lymphadenopathy NECK: No midline ttp, no spinal stepoff or deformity, full ROM, supple CARDIOVASCULAR: Regular rate and rhythm, normal S1S2, no MGR, capillary refill < 2 seconds, thorax with normal temperature but extremities are cool and clammy ( BLE worse than BUE) Chest wall: Normal appearance, no rash, no bruising, no costal stepoff or deformity, nontender to compression LUNGS/RESPIRATORY: No respiratory distress, normal and symmetric chest movements during respirations, lungs CTA bilaterally, equal breath sounds, no cyanosis, no nail clubbing GI/ABDOMEN: Normal symmetric appearance, normoactive bowel sounds, soft, no tenderness to palpation, no midline pulsatile masses, no palpated organomegaly : No CVA tenderness BACK: No midline ttp or stepoff or deformity of thoracic or lumbar spine EXTREMITIES: DP pulses not palpable, bilateral feet cold but equally so, no LE edema SKIN: Dry, no pallor, no jaundice, no bruising, no rash, no skin breakdown, no cuts, no lesions, no ulcers NEUROLOGICAL: GCS 15, CN II-XII grossly intact, gait not tested, moving all extremities, 5/5 strength proximally and distally, no facial droop, no decreased sensation (including toes with full sensation and able to wiggle all digits) Heart Score/ECG Review #1 01/21/18 19:04 A-fib, rate of 80, with RBBB, no ischemic ST-T changes ED Treatment Course - LABORATORY CBC & Chemistry Diagram: 01/21/18 20:15 01/21/18 20:15 - RADIOLOGY Radiology Studies Ordered: Category Date Time Status CHEST X-RAY PORTABLE* [RAD] Stat Radiology 01/21/18 19:24 Ordered Medical Decision Making - Medical Decision Making Pt p/w nausea, fatigue, generalized weakness; EMS noted hypotension. Initial Vital Signs Temp Pulse Resp BP Pulse Ox 95.6 F L 79 18 94/64 98 01/21/18 18:49 01/21/18 18:49 01/21/18 18:49 01/21/18 18:49 01/21/18 18:49 Exam: As noted in Physical Exam section. DDX IBNLT: sepss, anemia (e.g. from GIB, menorrhagia, other blood loss), hypothyroidism, hyperparathyroidism, Parkinsons disease, CVA, HIV, cancer (juan [employer] neoplasm), medications/drugs (any sedative e.g. EtOH or withdrawal from a stimulant, methyldopa, clonidine, beta blockers, Haldol, prochlorperaine, metocloperamide, long-term steroid use, IFN-alpha), psychiatric (depression, dysthymia, bipolar disorder, adjustment disorder with depressed mood, premenstrual dysphoric disorder). W/U ordered: EKG CXR Labs as noted below TX ordered: IVF EKG: Reviewed; results as noted in ECG Review section. CXR: Nothing acute on my preliminary read. Patient unable to give urine sample at this time. Laboratory Tests 01/21/18 01/21/18 01/21/18 20:15 20:15 20:15 WBC 4.6 RBC 3.83 L Hgb 11.8 Hct 34.5 L D MCV 90.2 MCH 30.8 MCHC 34.1 RDW 16.5 H Plt Count 294 MPV 8.8 Absolute Neuts (auto) 3.4 Neutrophils % 74.2 Lymphocytes % 19.3 Monocytes % 5.7 Eosinophils % 0.4 Basophils % 0.4 Nucleated RBC % 0 PT with INR 37.50 H INR 3.14 H PTT (Actin FS) 31.5 VBG pH 7.40 POC VBG pCO2 29.6 L POC VBG pO2 110.0 H Mixed VBG HCO3 18.2 L Sodium Potassium Chloride Carbon Dioxide Anion Gap BUN Creatinine Creat Clearance w eGFR Random Glucose Lactic Acid Calcium Total Bilirubin AST ALT Alkaline Phosphatase Creatine Kinase CK-MB (CK-2) Troponin I Total Protein Albumin 01/21/18 01/21/18 01/21/18 20:15 20:15 20:15 WBC RBC Hgb Hct MCV MCH MCHC RDW Plt Count MPV Absolute Neuts (auto) Neutrophils % Lymphocytes % Monocytes % Eosinophils % Basophils % Nucleated RBC % PT with INR INR PTT (Actin FS) VBG pH POC VBG pCO2 POC VBG pO2 Mixed VBG HCO3 Sodium 135 L Potassium 4.8 Chloride 110 H Carbon Dioxide 19 L Anion Gap 6 L BUN 31 H Creatinine 2.2 H Creat Clearance w eGFR 29.02 Random Glucose 104 Lactic Acid 1.1 Calcium 10.2 H Total Bilirubin 0.3 AST 19 ALT 14 Alkaline Phosphatase 69 Creatine Kinase 116 CK-MB (CK-2) 4.8 H Troponin I 0.23 H Total Protein 11.0 H Albumin 2.0 L Reassessment: Patient states feels unchanged, mild nausea. Repeat exam unchanged. Patient still unable to give UA sample; now drinking PO fluids as well as IVF. 01/21/18 21:02 The Pt is unsafe for discharge at this time. They require further hospital observation, workup, and treatment. PCP is Dr. Serna; goes to hospitalist now. Microblog sent to [facility] for admission. Blank Decision to Admit order is placed per ED protocol. 01/21/18 23:12 Blank decision to Admit corrected with Dr. Serna's name at Rowena Charles's recommendation. *DC/Admit/Observation/Transfer Diagnosis at time of Disposition: Generalized weakness, Hypoalbuminemia Yowra-hr-kjoilns kidney injury Qualifiers: Acute renal failure type: unspecified Chronic kidney disease stage: unspecified stage Qualified Code(s): N17.9 - Acute kidney failure, unspecified - Discharge Dispostion Condition at time of disposition: Guarded Decision to Admit order: Yes - Referrals Referrals: Zully Serna MD [Primary Care Provider] - - Patient Instructions - Post Discharge Activity
[2018-01-21 20:29] LABS: BASO % 0.4 % (0-2.0); EOS % 0.4 % (0-4.5); HEMATOCRIT 34.5 % (35.4-49); HEMOGLOBIN 11.8 GM/dL (11.7-16.9); LYMPH % 19.3 % (8-40); MCH 30.8 pg (25.7-33.7); MCHC 34.1 g/dl (32.0-35.9); MEAN CELL VOLUME 90.2 fl (80-96); MEAN PLT VOLUME 8.8 fl (7.5-11.1); MONO % 5.7 % (3.8-10.2); NEUT % 74.2 % (42.8-82.8); PLATELET COUNT 294 K/MM3 (134-434); RBC 3.83 M/mm3 (4.00-5.60); RDW 16.5 % (11.9-15.9); WHITE BLOOD COUNT 4.6 K/mm3 (4.0-10.0)
[2018-01-21 20:34] LABS: VENOUS PC02 29.6 mmHg (38-52); VENOUS PH 7.4 (7.32-7.42)
[2018-01-21 20:41] LABS: INR 3.14 (0.83-1.09); PROTHROMBIN TIME (PATIENT) 37.5 SEC (9.7-13.0)
[2018-01-21 20:44] LABS: ACTIVATED PTT 31.5 SECONDS (25.2-36.5)
[2018-01-21 20:54] LABS: ALK PHOS 69 U/L (45-117); ANION GAP 6 MMOL/L (8-16); BILIRUBIN,TOTAL 0.3 mg/dL (0.2-1); BLOOD UREA NITROGEN 31 mg/dL (7-18); CALCIUM 10.2 mg/dL (8.5-10.1); CHLORIDE 110 mmol/L (98-107); CO2 19 mmol/L (21-32); CREATININE 2.2 mg/dL (0.55-1.3); GLUCOSE,RANDOM 104 mg/dL (74-106); POTASSIUM 4.8 mmol/L (3.5-5.1); SGOT/AST 19 U/L (15-37); SGPT/ALT 14 U/L (13-61); SODIUM 135 mmol/L (136-145)
--- NOTE | 2018-01-21 23:24 | HP ---
CHIEF COMPLAINT: Weakness PCP: Dr. Serna HISTORY OF PRESENT ILLNESS: 77 year-old male with a PMH significant for HTN, HLD, CAD, paroxysmal A-fib on Xarelto, PVD with recent left arterial occlusion with stent placement, CKD. Presents to ED today with complaint of nausea and weakness. Patient was shopping in a grocery store and had to stop multiple times because of weakness. Store management called 911. EMS reportedly found patient hypotensive. Patient denies headache, cough, fever, sweats, chills; denies vomiting, diarrhea; denies chest pain, SOB, palpitations. No bleeding episodes. ER course was notable for: (1) T 95.0, repeat 95.6, BP 94/64, p79, RR 18, SpO2 98% room air (2) BUN 31/Cr 2.2 (baseline 1.2) (3) Corrected calcium 11.8 Recent Travel: No PAST MEDICAL HISTORY: Hypertension Hyperlipidemia Coronary artery disease Ischemic cardiomyopathy Paroxysmal atrial fibrillation Peripheral vascular disease PAST SURGICAL HISTORY: Left popliteal artery stenting (11/2017) Social History: Smoking: quit 2015 Alcohol: yes Drugs: denies Family History: Allergies valsartan Allergy (Severe, Verified 01/21/18 18:52) HOME MEDICATIONS: Home Medications Medication Instructions Recorded Aspirin Coated [Ecotrin -] 81 mg PO DAILY #30 tablet.ec 10/19/17 Atorvastatin Ca [Lipitor] 40 mg PO HS #30 tablet 10/19/17 Carvedilol [Coreg -] 6.25 mg PO BID #60 tablet 10/19/17 Rivaroxaban [Xarelto -] 20 mg PO DAILY@1800 #30 tablet 10/19/17 Aspirin [ASA -] 1 tab PO DAILY 11/27/17 REVIEW OF SYSTEMS CONSTITUTIONAL: +Weakness Absent: fever, chills, diaphoresis, generalized weakness, malaise, loss of appetite, weight change HEENT: Absent: rhinorrhea, nasal congestion, throat pain, throat swelling, difficulty swallowing, mouth swelling, ear pain, eye pain, visual changes CARDIOVASCULAR: Absent: chest pain, syncope, palpitations, irregular heart rate, lightheadedness , peripheral edema RESPIRATORY: Absent: cough, shortness of breath, dyspnea with exertion, orthopnea, wheezing, stridor, hemoptysis GASTROINTESTINAL: +Nausea Absent: abdominal pain, abdominal distension, nausea, vomiting, diarrhea, constipation, melena, hematochezia GENITOURINARY: Absent: dysuria, frequency, urgency, hesitancy, hematuria, flank pain, genital pain MUSCULOSKELETAL: Absent: myalgia, arthralgia, joint swelling, back pain, neck pain SKIN: Absent: rash, itching, pallor HEMATOLOGIC/IMMUNOLOGIC: Absent: easy bleeding, easy bruising, lymphadenopathy, frequent infections ENDOCRINE: Absent: unexplained weight gain, unexplained weight loss, heat intolerance, cold intolerance NEUROLOGIC: Absent: headache, focal weakness or paresthesias, dizziness, unsteady gait, seizure, mental status changes, bladder or bowel incontinence PSYCHIATRIC: Absent: anxiety, depression, suicidal or homicidal ideation, hallucinations. PHYSICAL EXAMINATION Vital Signs - 24 hr 01/21/18 01/21/18 18:49 19:00 Temperature 95.6 F L Pulse Rate 79 Respiratory 18 Rate Blood Pressure 94/64 O2 Sat by Pulse 98 100 Oximetry (%) GENERAL: Awake, alert, and fully oriented, in no acute distress. Poor dentition. HEAD: Normal with no signs of trauma. EYES: Pupils equal, round and reactive to light, extraocular movements intact, sclera anicteric, conjunctiva clear. No lid lag. EARS, NOSE, THROAT: Ears normal, nares patent, oropharynx clear without exudates. Moist mucous membranes. NECK: Normal range of motion, supple without lymphadenopathy, JVD, or masses. LUNGS: Breath sounds equal, clear to auscultation bilaterally. No wheezes, and no crackles. No accessory muscle use. HEART: Regular rate and rhythm, normal S1 and S2 without murmur, rub or gallop. ABDOMEN: Soft, nontender, not distended, normoactive bowel sounds, no guarding, no rebound, no masses. No hepatomegaly or splenomegaly. MUSCULOSKELETAL: Normal range of motion at all joints. No bony deformities or tenderness. No CVA tenderness. UPPER EXTREMITIES: 2+ pulses, warm, well-perfused. No cyanosis. No clubbing. No peripheral edema. LOWER EXTREMITIES: 2+ pulses, warm, well-perfused. No calf tenderness. No peripheral edema. NEUROLOGICAL: Cranial nerves II-XII intact. Normal speech. Normal gait. PSYCHIATRIC: Cooperative. Good eye contact. Appropriate mood and affect. Laboratory Results - last 24 hr 01/21/18 01/21/18 01/21/18 20:15 20:15 20:15 WBC 4.6 RBC 3.83 L Hgb 11.8 Hct 34.5 L D MCV 90.2 MCH 30.8 MCHC 34.1 RDW 16.5 H Plt Count 294 MPV 8.8 Absolute Neuts (auto) 3.4 Neutrophils % 74.2 Lymphocytes % 19.3 Monocytes % 5.7 Eosinophils % 0.4 Basophils % 0.4 Nucleated RBC % 0 PT with INR 37.50 H INR 3.14 H PTT (Actin FS) 31.5 VBG pH 7.40 POC VBG pCO2 29.6 L POC VBG pO2 110.0 H Mixed VBG HCO3 18.2 L Sodium Potassium Chloride Carbon Dioxide Anion Gap BUN Creatinine Creat Clearance w eGFR Random Glucose Lactic Acid Calcium Total Bilirubin AST ALT Alkaline Phosphatase Creatine Kinase CK-MB (CK-2) Troponin I Total Protein Albumin Blood Type Antibody Screen 01/21/18 01/21/18 01/21/18 20:15 20:15 20:15 WBC RBC Hgb Hct MCV MCH MCHC RDW Plt Count MPV Absolute Neuts (auto) Neutrophils % Lymphocytes % Monocytes % Eosinophils % Basophils % Nucleated RBC % PT with INR INR PTT (Actin FS) VBG pH POC VBG pCO2 POC VBG pO2 Mixed VBG HCO3 Sodium 135 L Potassium 4.8 Chloride 110 H Carbon Dioxide 19 L Anion Gap 6 L BUN 31 H Creatinine 2.2 H Creat Clearance w eGFR 29.02 Random Glucose 104 Lactic Acid 1.1 Calcium 10.2 H Total Bilirubin 0.3 AST 19 ALT 14 Alkaline Phosphatase 69 Creatine Kinase 116 CK-MB (CK-2) 4.8 H Troponin I Total Protein 11.0 H Albumin 2.0 L Blood Type B POSITIVE Antibody Screen Negative 01/21/18 20:15 WBC RBC Hgb Hct MCV MCH MCHC RDW Plt Count MPV Absolute Neuts (auto) Neutrophils % Lymphocytes % Monocytes % Eosinophils % Basophils % Nucleated RBC % PT with INR INR PTT (Actin FS) VBG pH POC VBG pCO2 POC VBG pO2 Mixed VBG HCO3 Sodium Potassium Chloride Carbon Dioxide Anion Gap BUN Creatinine Creat Clearance w eGFR Random Glucose Lactic Acid Calcium Total Bilirubin AST ALT Alkaline Phosphatase Creatine Kinase CK-MB (CK-2) Troponin I 0.23 H Total Protein Albumin Blood Type Antibody Screen ASSESSMENT/PLAN 77 year-old male with a PMH significant for HTN, HLD, CAD, diastolic HF, persistent afib on Xarelto, PVD with recent left arterial occlusion with stent placement, CKD. Admitted for hypothermia, MELITA. Hypothermia --no other SIRS criteria met --radha culver in ED and temp improved to 97.5 MELITA Azotemia --Cr 2.2 on admission, baseline 1.2 --NS x 3L ordered in ED, ongoing infusion --not on home diuretics, indication of heavy NSAID use on previous admission --renal consult Hypercalcemia --IV fluids Hypertension --presently hypotensive --hold home carvedilol --IV fluids Persistent atrial fibrillation --tele monitoring --daily ECGs --rate controlled but monitor closely while off carvedilol --h/o poor compliance with medications --continue Xarelto Coronary artery disease --R&LHc at [facility] 04/20/2016 showing nonobstructive CAD, severe LV apical hypertrophic cardiomyopathy, mildly elevated right sided pressures --continue ASA, statin Peripheral arterial disease --h/o limb ischemia and embolism --recent stent --US to r/o DVT LV diastolic dysfunction --not on diuretics DVT prophylaxis: on Xarelto Visit type - Emergency Visit Emergency Visit: Yes ED Registration Date: 01/21/18 Care time: The patient presented to the Emergency Department on the above date and was hospitalized for further evaluation of their emergent condition. - New Patient This patient is new to me today: Yes Date on this admission: 01/22/18 - Critical Care Critical Care patient: No
[2018-01-21] MEDS ORDERED: SODIUM CHLORIDE 1,000 ML IV STA (23:34)
[2018-01-22 02:18] VITALS: BMI 25.7
[2018-01-22] MEDS ORDERED: ASPIRIN 81 MG CHEWABLE TABLETS PO SCH (10:00)
--- NOTE | 2018-01-22 10:16 | EKG ---
Test Reason : Blood Pressure : / mmHG Vent. Rate : 080 BPM Atrial Rate : 092 BPM P-R Int : 000 ms QRS Dur : 156 ms QT Int : 448 ms P-R-T Axes : 000 239 026 degrees QTc Int : 516 ms ATRIAL FIBRILLATION RIGHT BUNDLE BRANCH BLOCK SEPTAL INFARCT (CITED ON OR BEFORE 12-APR-2016) SUGGEST LEAD REVERSAL ABNORMAL ECG WHEN COMPARED WITH ECG OF 15-OCT-2017 23:57, UNCHANGED FROM PREVIOUS ECG Confirmed by ENMA WEBB, FOX ([id number]) on 01/22/2018 10:16:32 AM Referred By: Confirmed By:FOX NORWOOD MD
[2018-01-22] MEDS ORDERED: DEXTROSE 5%-NORMAL SALINE 1,000 ML IV SCH (12:00)
--- NOTE | 2018-01-22 12:04 | CONSULT ---
Consult Consult Specialty:: Nephrology ( kailey/ Paul) Referred by:: Dr. stacy Reason for Consultation:: Hypercalcemia - History of Present Illness History of Present Illness: 77 year-old male with a PMH significant for HTN, HLD, CAD, ischemic cardiomyopathy, paroxysmal A-fib on Xarelto, PVD with recent left arterial occlusion with stent placement, CKD, and ETOH abuse. Presented to ED today with complaints of nausea and weakness. Patient was shopping in a grocery store and had to stop multiple times because of weakness. Store management called 911. Patient denies headache, cough, Fever, Sweats, Chills; Denies vomiting, Diarrhea ; Denies chest pain, SOB, Palpitations. - History Source History Provided By: Patient - Past Medical History Cardio/Vascular: Yes: AFIB, HTN, NH Gastrointestinal: No: GI Bleed, Irritable Bowel Disease, Ulcerative Colitis Renal/: No: Renal Inusuff, Cancer, Hematuria, Hemodialysis - Past Surgical History Past Surgical History: Yes: Hernia Repair - Alcohol/Substance Use Hx Alcohol Use: No History of Substance Use: reports: None - Smoking History Smoking history: Former smoker Have you smoked in the past 12 months: No Aproximately how many cigarettes per day: 10 If you are a former smoker, when did you quit?: 04.06.16 Home Medications - Allergies Allergies/Adverse Reactions: Allergies Allergy/AdvReac Type Severity Reaction Status Date / Time valsartan Allergy Severe Verified 01/21/18 18:52 - Home Medications Home Medications: Ambulatory Orders Aspirin Coated [Ecotrin -] 81 mg PO DAILY #30 tablet.ec 10/19/17 Atorvastatin Ca [Lipitor] 40 mg PO HS #30 tablet 10/19/17 Carvedilol [Coreg -] 6.25 mg PO BID #60 tablet 10/19/17 Rivaroxaban [Xarelto -] 20 mg PO DAILY@1800 #30 tablet 10/19/17 Aspirin [ASA -] 1 tab PO DAILY 11/27/17 Review of Systems - Review of Systems Constitutional: reports: Weakness Eyes: denies: Double Vision HENT: denies: Difficult Swallowing Neck: reports: Stiffness. denies: Decreased ROM Respiratory: denies: Exercise Intolerance Gastrointestinal: denies: Abdominal Pain, Bloating, Indigestion Genitourinary: denies: Burning Musculoskeletal: reports: Back Pain, Extremity Pain Neurological: reports: Dizziness Physical Exam Vital Signs: Vital Signs Temperature 98.4 F 01/22/18 05:27 Pulse Rate 73 01/22/18 05:27 Respiratory Rate 18 01/22/18 09:00 Blood Pressure 109/53 L 01/22/18 05:27 O2 Sat by Pulse Oximetry (%) 100 01/22/18 09:00 Constitutional: Yes: No Distress, Anxious Eyes: Yes: Conjunctiva Clear HENT: Yes: Normocephalic Neck: Yes: Trachea Midline Cardiovascular: Yes: Pulse Irregular, S1, S2 Respiratory: Yes: CTA Bilaterally, Diminished Gastrointestinal: Yes: Normal Bowel Sounds, Soft Renal/: No: Anuria, Bladder Distention, CVA Tenderness - Left, CVA Tenderness - Right, Hematuria Edema: No Labs: CBC, BMP 01/21/18 20:15 01/21/18 20:15 Problem List - Problems (1) Hypercalcemia Code(s): E83.52 - HYPERCALCEMIA (2) Paraproteinemia Code(s): D89.2 - HYPERGAMMAGLOBULINEMIA, UNSPECIFIED (3) Generalized weakness Code(s): R53.1 - WEAKNESS (4) Hypoalbuminemia Code(s): E88.09 - OTH DISORDERS OF PLASMA-PROTEIN METABOLISM, NEC (5) Paroxysmal atrial fibrillation Code(s): I48.0 - PAROXYSMAL ATRIAL FIBRILLATION Assessment/Plan 77 year-old male with a PMH significant for HTN, HLD, CAD, ischemic cardiomyopathy, paroxysmal A-fib on Xarelto, PVD with recent left arterial occlusion with stent placement, CKD, and ETOH abuse. Presents to ED today with complaint of nausea and weakness. The patient has Hypercalcemia, the etiology of which needs to be defined. Patient has Hyperproteinemia, Hypoalbuminemia and Hyperglobulinemia, with low anion gap. This along side Hypercalcemia suggests paraproteinemia, (Possible multiple myeloma). Also noted is nemia. Will give cautious IV hydratio. Basic w/u as ordered. Should consider Heme/ Onc eval. Will monitor the Renal/ electrolyte profile with you. Thanks again.
--- NOTE | 2018-01-22 14:32 | CON.CARD ---
Consult Consult Specialty:: Cardiology Referred by:: Hospitalist Reason for Consultation:: Afib h/o thromboembolism, demand ischemia - History of Present Illness Chief Complaint: Nausea, weakness, near syncope History of Present Illness: This is a 77 y/o man with a PMHx of Persistent Afib [id number] with recurrent peripheral arterial embolism due to previous noncompliance with Xarelto due to lack of social support, Diabetes Mellitus, Apical Hypertrophic Cardiomyopathy, Alcohol Abuse, nonobstructive CAD h/o anaphylaxis after eating [place] Food- shrimp and boneless spare ribs presented for weakness, nausea w/o emesis, near without true syncope, flushing without diaphoresis and MELITA. He is asymptomatic from cardiovascular standpoint and denies chest pain, dyspnea, orthopnea, PND, or edema, exercise capacity limited by left claudication. Last seen in office , sxs improving with IV hydration. - History Source History Provided By: Patient Limitations to Obtaining History: No Limitations - Past Medical History Cardio/Vascular: Yes: AFIB, HTN, MA Gastrointestinal: No: GI Bleed, Irritable Bowel Disease, Ulcerative Colitis Renal/: No: Renal Inusuff, Cancer, Hematuria, Hemodialysis - Past Surgical History Past Surgical History: Yes: Hernia Repair - Alcohol/Substance Use Hx Alcohol Use: No History of Substance Use: reports: None - Smoking History Smoking history: Former smoker Have you smoked in the past 12 months: No Aproximately how many cigarettes per day: 10 If you are a former smoker, when did you quit?: 04.06.16 Home Medications - Allergies Allergies/Adverse Reactions: Allergies Allergy/AdvReac Type Severity Reaction Status Date / Time valsartan Allergy Severe Verified 01/21/18 18:52 - Home Medications Home Medications: Ambulatory Orders Aspirin Coated [Ecotrin -] 81 mg PO DAILY #30 tablet.ec 10/19/17 Atorvastatin Ca [Lipitor] 40 mg PO HS #30 tablet 10/19/17 Carvedilol [Coreg -] 6.25 mg PO BID #60 tablet 10/19/17 Rivaroxaban [Xarelto -] 20 mg PO DAILY@1800 #30 tablet 10/19/17 Aspirin [ASA -] 1 tab PO DAILY 11/27/17 Family Disease History - Family Disease History Family History: Unremarkable Review of Systems - Review of Systems Constitutional: reports: Weakness HENT: reports: No Symptoms Neck: reports: No Symptoms Cardiovascular: reports: No Symptoms Respiratory: reports: No Symptoms Gastrointestinal: reports: No Symptoms Genitourinary: reports: No Symptoms Musculoskeletal: reports: No Symptoms Integumentary: reports: No Symptoms Neurological: reports: Dizziness, Incoordination Endocrine: reports: No Symptoms Vital Signs: Vital Signs Temperature 98.4 F 01/22/18 05:27 Pulse Rate 73 01/22/18 05:27 Respiratory Rate 18 01/22/18 09:00 Blood Pressure 109/53 L 01/22/18 05:27 O2 Sat by Pulse Oximetry (%) 100 01/22/18 09:00 Constitutional: Yes: No Distress, Calm Neck: Yes: Supple Respiratory: Yes: Regular, CTA Bilaterally Gastrointestinal: Yes: Normal Bowel Sounds, Soft Cardiovascular: Yes: Regular Rate and Rhythm JVD: No Carotid Bruit: No Heart Sounds: Yes: S1, S2 Murmur: Yes: Systolic Murmur, Grade 2 Edema: No - Other Data Labs, Other Data: CBC, BMP 01/21/18 20:15 01/21/18 20:15 INR, PTT INR 3.14 (0.83-1.09) H 01/21/18 20:15 Troponin, BNP 01/21/18 01/22/18 20:15 12:28 Troponin I 0.23 H 0.21 H Troponin, BNP 01/21/18 01/22/18 20:15 12:28 Troponin I 0.23 H 0.21 H Afib @ 80 RBBB Echo: Report Reviewed Ejection Fraction %: LVEF > or = 40 % Imaging - Results Chest X-ray: Report Reviewed (NAD) Problem List - Problems (1) Tavdd-mi-dfqfyyu kidney injury Code(s): N17.9 - ACUTE KIDNEY FAILURE, UNSPECIFIED; N18.9 - CHRONIC KIDNEY DISEASE, UNSPECIFIED Qualifiers: Acute renal failure type: unspecified Chronic kidney disease stage: unspecified stage Qualified Code(s): N17.9 - Acute kidney failure, unspecified ; N18.9 - Chronic kidney disease, unspecified (2) Hypercalcemia Code(s): E83.52 - HYPERCALCEMIA (3) Demand ischemia Code(s): I24.8 - OTHER FORMS OF ACUTE ISCHEMIC HEART DISEASE (4) Nonadherence to medication Code(s): Z91.14 - PATIENT'S OTHER NONCOMPLIANCE WITH MEDICATION REGIMEN (5) Persistent atrial fibrillation Code(s): I48.1 - PERSISTENT ATRIAL FIBRILLATION (6) Anticoagulant long-term use Code(s): Z79.01 - STRATEGIC SOURCING SPECIALIST (CURRENT) USE OF ANTICOAGULANTS (7) Coronary artery disease Code(s): I25.10 - ATHSCL HEART DISEASE OF [place] CORONARY ARTERY W/O ANG PCTRS Qualifiers: Coronary Disease-Associated Artery/Lesion type: [place] artery [place] vs. transplanted heart: [place] heart Associated angina: without angina Qualified Code(s): I25.10 - Atherosclerotic heart disease of [place] coronary artery without angina pectoris (8) Diastolic dysfunction without heart failure Code(s): I51.9 - HEART DISEASE, UNSPECIFIED (9) Hypertrophic cardiomyopathy Code(s): I42.2 - OTHER HYPERTROPHIC CARDIOMYOPATHY (10) Peripheral arterial disease Code(s): I73.9 - PERIPHERAL VASCULAR DISEASE, UNSPECIFIED (11) Atrial flutter Code(s): I48.92 - UNSPECIFIED ATRIAL FLUTTER Qualifiers: Atrial flutter type: typical Qualified Code(s): I48.3 - Typical atrial flutter (12) Vasovagal near syncope Code(s): R55 - SYNCOPE AND COLLAPSE Assessment/Plan R&LHc at [facility] 04/20/2016 showing nonobstructive CAD, severe LV apical hypertrophic cardiomyopathy, mildly elevated right sided pressures, Mynx deployed right NAPPING MACHINE OPERATOR access site. 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 Echocardiogram: 10/18/2017 Mod cLVH, severe PURVI, mod TR RVSP 50-60 mmHg, mod- severe MR 1. Vasovagal near syncope with typical prodromal sxs 2. Acute on CKD (pre-renal) 3. History of bilateral SFA occlusion post thrombectomy, referable to embolic disease related to persistent atrial fibrillation with [id number] score of 6, history of poor compliance with anticoagulation and medical F/U 4. Non obstructive CAD on R&LHc coronary angiography 5. LV diastolic dysfunction related to apical hypertrophic cardiomyopathy, subendocardial ischemia, compensated/euvolemic 6. Persistent atrial fibrillation [id number] score of 6 on Xarelto 20 qd 8. Labile HTN 9. Poor compliance with medical therapy administration and medical F/U 10. Tobacco abuse 11. Hypercalcemia, paraproteinemia-> possible multiple myeloma PLAN: 1. Continue Xarelto 20 qd, Lipitor 40 qd and d/c concomitant ASA 81 qd, trops downtrending 2. Resume Carvedilol 6.25 bid as hemodynamics tolerate 3. Consider outpatient DCCV for the above noted atrial arrhythmia once clinically stabilized and compliance with anticoagulation is assured. Patient was advised to follow up in office [phone] (previously been to office) 4. Hematology input 5. Judicious IVF with monitor renal recovery 6. Thank you for consultative opportunity
[2018-01-22] MEDS ORDERED: DEXTROSE 5%-NORMAL SALINE 250 ML IV SCH (15:30)
[2018-01-22] MEDS: RIVAROXABAN 20 MG TABLET PO SCH (17:17)
[2018-01-22] MEDS ORDERED: CARVEDILOL 6.25 MG TABLET (FP) PO SCH (22:00)
[2018-01-22] MEDS: ATORVASTATIN CA 40 MG TABLET (FP) PO SCH (22:05)
--- NOTE | 2018-01-23 07:12 | PN ---
Progress Note, Physician Chief Complaint: AWAKE ALERT EVENTS AND NOTES REVIEWED DENIES CHEST PAIN OR SOB LOW BP - Current Medication List Current Medications: Active Medications Atorvastatin Calcium (Lipitor -) 40 mg PO HS [facility] Last Admin: 01/22/18 22:05 Dose: 40 mg Carvedilol (Coreg -) 6.25 mg PO BID [facility] Last Admin: 01/22/18 22:05 Dose: Not Given Dextrose/Sodium Chloride (D5-Ns -) 250 mls @ 250 mls/hr IV ASDIR [facility] Last Admin: 01/22/18 15:30 Dose: 250 mls/hr Rivaroxaban (Xarelto -) 20 mg PO DAILY@1800 [facility] Last Admin: 01/22/18 17:17 Dose: 20 mg - Objective Vital Signs: Vital Signs Temperature 98.4 F 01/23/18 02:00 Pulse Rate 77 01/23/18 02:00 Respiratory Rate 20 01/23/18 02:00 Blood Pressure 102/72 01/23/18 02:00 O2 Sat by Pulse Oximetry (%) 100 01/22/18 21:00 Constitutional: Yes: Mild Distress Eyes: Yes: WNL HENT: Yes: WNL Neck: Yes: WNL Cardiovascular: Yes: Pulse Irregular Respiratory: Yes: WNL Gastrointestinal: Yes: WNL Genitourinary: Yes: WNL Musculoskeletal: Yes: WNL Extremities: Yes: WNL Edema: No Peripheral Pulses WNL: Yes Integumentary: Yes: WNL Wound/Incision: Yes: Clean/Dry Neurological: Yes: WNL ...Motor Strength: WNL Psychiatric: Yes: WNL Labs: CBC, BMP 01/21/18 20:15 INR, PTT INR 3.14 (0.83-1.09) H 01/21/18 20:15 Problem List - Problems (1) History of ETOH abuse Code(s): Z87.898 - PERSONAL HISTORY OF OTHER SPECIFIED CONDITIONS (2) Nfdey-zb-ubvnztj kidney injury Code(s): N17.9 - ACUTE KIDNEY FAILURE, UNSPECIFIED; N18.9 - CHRONIC KIDNEY DISEASE, UNSPECIFIED Qualifiers: Acute renal failure type: unspecified Chronic kidney disease stage: unspecified stage Qualified Code(s): N17.9 - Acute kidney failure, unspecified ; N18.9 - Chronic kidney disease, unspecified (3) Generalized weakness Code(s): R53.1 - WEAKNESS (4) Vasovagal near syncope Code(s): R55 - SYNCOPE AND COLLAPSE (5) Artery occlusion Code(s): I70.90 - UNSPECIFIED ATHEROSCLEROSIS (6) Diastolic dysfunction without heart failure Code(s): I51.9 - HEART DISEASE, UNSPECIFIED (7) Atrial flutter Code(s): I48.92 - UNSPECIFIED ATRIAL FLUTTER Qualifiers: Atrial flutter type: typical Qualified Code(s): I48.3 - Typical atrial flutter Assessment/Plan CARDIO AND RENAL EVAL IVF BOLUS 250CC D5/NS FOR LOW BP HOLD BP MEDS FOR SBP LESS THAN 110MMHG CHECK LABS PT EVAL FALL RISKS ETOH USE HAS BEEN LESS PER PATIENT
[2018-01-23 08:10] LABS: ALBUMIN 1.5 g/dl (3.4-5.0); ALK PHOS 59 U/L (45-117); ANION GAP 7 MMOL/L (8-16); BILIRUBIN,TOTAL 0.2 mg/dL (0.2-1); BLOOD UREA NITROGEN 24 mg/dL (7-18); CALCIUM 9.3 mg/dL (8.5-10.1); CHLORIDE 113 mmol/L (98-107); CO2 21 mmol/L (21-32); CREATININE 1.9 mg/dL (0.55-1.3); GLUCOSE,RANDOM 82 mg/dL (74-106); PHOSPHOROUS 4.3 mg/dL (2.5-4.9); POTASSIUM 4.6 mmol/L (3.5-5.1); SGOT/AST 22 U/L (15-37); SGPT/ALT 17 U/L (13-61); SODIUM 141 mmol/L (136-145); TOT PROT 9.4 g/dl (6.4-8.2)
[2018-01-23] MEDS ORDERED: DEXTROSE 5%-NORMAL SALINE 1,000 ML IV SCH (09:30)
[2018-01-23 11:35] LABS: BASO % 0.6 % (0-2.0); EOS % 1.4 % (0-4.5); HEMATOCRIT 29.1 % (35.4-49); HEMOGLOBIN 9.8 GM/dL (11.7-16.9); LYMPH % 35.7 % (8-40); MCH 30.3 pg (25.7-33.7); MCHC 33.7 g/dl (32.0-35.9); MEAN CELL VOLUME 90.1 fl (80-96); MEAN PLT VOLUME 9.3 fl (7.5-11.1); MONO % 4.7 % (3.8-10.2); NEUT % 57.6 % (42.8-82.8); PLATELET COUNT 242 K/MM3 (134-434); RBC 3.23 M/mm3 (4.00-5.60); RDW 16.8 % (11.9-15.9); WHITE BLOOD COUNT 4.2 K/mm3 (4.0-10.0)
[2018-01-23 13:33] LABS: ROULEAU 2+
--- NOTE | 2018-01-23 16:57 | ECHO ---
Name: CHRISTINE PILLAI Exam:Adult Echocardiogram Study Date: 01/23/2018 10:42 AM Age: 77 yrs Reason For Study: SYNCOPE Height: 73 in Weight: 195 lb BSA: 2.1 m2 MMode/2D Measurements & Calculations IVSd: 1.3 cm Ao root diam: 3.0 cm LVIDd: 5.1 cm LA dimension: 5.6 cm LVIDs: 4.0 cm LVPWd: 1.0 cm EDV(Teich): 123.8 ml TAPSE: 2.2 cm ESV(Teich): 70.0 ml RV S Kristopher: 12.3 cm/sec Doppler Measurements & Calculations MV E max kristopher: 109.0 cm/sec Ao V2 max: 155.0 cm/sec MV A max kristopher: 32.1 cm/sec Ao max P.6 mmHg MV E/A: 3.4 MV dec time: 0.12 sec LV V1 max P.2 mmHg MR max kristopher: 336.0 cm/sec LV V1 max: 74.8 cm/sec MR max P.2 mmHg TR max kristopher: 244.4 cm/sec PI end-d kristopher: 129.2 cm/sec TR max P.3 mmHg Med Peak E' Kristopher: 4.8 cm/sec Med E/e': 22.5 Lat Peak E' Kristopher: 10.1 cm/sec Lat E/e': 10.8 Left Ventricle The left ventricle is normal in size. Mild upper septal hypertrophy. The left ventricle is hyperdynam ic. LVEF = 75%. Diastolic dysfunction, Grade II, consistent with elevated left atrial pressure. Right Ventricle The right ventricle is normal in size and function. Atria The left atrium is severely dilated. Right atrial size is normal. Mitral Valve There is moderate mitral annular calcification. There is moderate mitral valve thickening. There is m oderate to severe mitral regurgitation. Tricuspid Valve The tricuspid valve is not well visualized, but is grossly normal. There is moderate tricuspid regurg itation. Right ventricular systolic pressure is elevated at 34 mmhg. Aortic Valve There is moderate aortic sclerosis.;. Pulmonic Valve The pulmonic valve is not well visualized. Great Vessels The aortic root is normal size. Pericardium/Pleura There is no pericardial effusion. Interpretation Summary The left ventricle is normal in size. Mild upper septal hypertrophy. The left ventricle is hyperdynam ic. LVEF = 75%. The right ventricle is normal in size and function. The left atrium is severely dilated. Right atrial size is normal. There is moderate aortic sclerosis. There is moderate mitral annular calcification. There is moderate mitral valve thickening. There is m oderate to severe mitral regurgitation. The tricuspid valve is not well visualized, but is grossly normal. There is moderate tricuspid regurg itation. MD Gardenia Lombardo 01/23/2018 04:57 PM
--- NOTE | 2018-01-23 17:10 | PN ---
Progress Note, Physician Chief Complaint: AWAKE ALERT DENIES CHEST PAIN LOW BP TODAY - Current Medication List Current Medications: Active Medications Atorvastatin Calcium (Lipitor -) 40 mg PO HS [facility] Last Admin: 01/22/18 22:05 Dose: 40 mg Carvedilol (Coreg -) 3.75 mg PO BID [facility] Dextrose/Sodium Chloride (D5-Ns -) 1,000 mls @ 100 mls/hr IV ASDIR [facility] Last Admin: 01/23/18 10:28 Dose: 100 mls/hr Rivaroxaban (Xarelto -) 20 mg PO DAILY@1800 [facility] Last Admin: 01/22/18 17:17 Dose: 20 mg - Objective Vital Signs: Vital Signs Temperature 98.0 F 01/23/18 14:33 Pulse Rate 72 01/23/18 14:33 Respiratory Rate 20 01/23/18 14:33 Blood Pressure 127/66 01/23/18 14:33 O2 Sat by Pulse Oximetry (%) 100 01/23/18 09:00 Constitutional: Yes: Mild Distress Eyes: Yes: WNL HENT: Yes: WNL Neck: Yes: WNL Cardiovascular: Yes: Pulse Irregular Respiratory: Yes: WNL Gastrointestinal: Yes: WNL Genitourinary: Yes: WNL Musculoskeletal: Yes: WNL Extremities: Yes: WNL Edema: No Peripheral Pulses WNL: Yes Integumentary: Yes: WNL Wound/Incision: Yes: Clean/Dry Neurological: Yes: WNL ...Motor Strength: WNL Psychiatric: Yes: WNL Labs: CBC, BMP 01/23/18 06:00 01/23/18 06:00 INR, PTT INR 3.14 (0.83-1.09) H 01/21/18 20:15 Problem List - Problems (1) History of ETOH abuse Code(s): Z87.898 - PERSONAL HISTORY OF OTHER SPECIFIED CONDITIONS (2) Dyyrv-ap-ienjsmt kidney injury Code(s): N17.9 - ACUTE KIDNEY FAILURE, UNSPECIFIED; N18.9 - CHRONIC KIDNEY DISEASE, UNSPECIFIED Qualifiers: Acute renal failure type: unspecified Chronic kidney disease stage: unspecified stage Qualified Code(s): N17.9 - Acute kidney failure, unspecified ; N18.9 - Chronic kidney disease, unspecified (3) Generalized weakness Code(s): R53.1 - WEAKNESS (4) Vasovagal near syncope Code(s): R55 - SYNCOPE AND COLLAPSE (5) Artery occlusion Code(s): I70.90 - UNSPECIFIED ATHEROSCLEROSIS (6) Diastolic dysfunction without heart failure Code(s): I51.9 - HEART DISEASE, UNSPECIFIED (7) Atrial flutter Code(s): I48.92 - UNSPECIFIED ATRIAL FLUTTER Qualifiers: Atrial flutter type: typical Qualified Code(s): I48.3 - Typical atrial flutter Assessment/Plan CARDIO AND RENAL EVAL COREG REDUCED TO 3.375MG BID HOLD BP MEDS FOR SBP LESS THAN 110MMHG CHECK LABS PT EVAL FALL RISKS ETOH USE HAS BEEN LESS PER PATIENT
[2018-01-23] MEDS: RIVAROXABAN 20 MG TABLET PO SCH (17:43)
--- NOTE | 2018-01-23 18:06 | PN ---
Progress Note (short form) - Note Progress Note: Renal follow up for MELITA Pt seen and examined at the bedside no acute complaints no sob, cp, abd pain, N/V/D Vital Signs Temperature 98.0 F 01/23/18 14:33 Pulse Rate 72 01/23/18 14:33 Respiratory Rate 20 01/23/18 14:33 Blood Pressure 127/66 01/23/18 14:33 O2 Sat by Pulse Oximetry (%) 100 01/23/18 09:00 Intake & Output 01/20/18 01/21/18 01/22/18 01/23/18 23:59 23:59 23:59 23:59 Intake Total 1000 1200 200 Output Total 600 Balance 1000 600 200 Weight 88.677 kg 88.451 kg NAD awake and alert RRR CTA soft NT/ND No Le edema CBC, BMP 01/23/18 06:00 01/23/18 06:00 Laboratory Tests 01/23/18 01/23/18 06:00 06:00 Uric Acid 11.0 H Phosphorus 4.3 PTH Intact Pending Current Medications Atorvastatin Calcium (Lipitor -) 40 mg PO HS [facility] Last Admin: 01/22/18 22:05 Dose: 40 mg Carvedilol (Coreg -) 3.75 mg PO BID [facility] Dextrose/Sodium Chloride (D5-Ns -) 1,000 mls @ 100 mls/hr IV ASDIR [facility] Last Admin: 01/23/18 10:28 Dose: 100 mls/hr Rivaroxaban (Xarelto -) 20 mg PO DAILY@1800 [facility] Last Admin: 01/23/18 17:43 Dose: 20 mg 77 year-old male with a PMH significant for HTN, HLD, CAD, ischemic cardiomyopathy, paroxysmal A-fib on Xarelto, PVD with recent left arterial occlusion with stent placement, CKD, and ETOH abuse Presented with complaint of nausea and weakness. #MELITA #Hypercalcemia #Elevated serum protein levels with anemia #Hypertension Renal function slightly improved Ca levels stable continue isotonic saline at present rate SPEP, PTH pending Heme/Oncology consult BP at goal on coreg alone THank you Will follow Mack Miller DO
[2018-01-23] MEDS: ATORVASTATIN CA 40 MG TABLET (FP) PO SCH (21:53)
[2018-01-24 07:49] LABS: HEMATOCRIT 29.4 % (35.4-49); HEMOGLOBIN 9.5 GM/dL (11.7-16.9); MCH 29.3 pg (25.7-33.7); MCHC 32.4 g/dl (32.0-35.9); MEAN CELL VOLUME 90.5 fl (80-96); MEAN PLT VOLUME 8.7 fl (7.5-11.1); PLATELET COUNT 239 K/MM3 (134-434); RBC 3.25 M/mm3 (4.00-5.60); RDW 16.9 % (11.9-15.9); WHITE BLOOD COUNT 4.3 K/mm3 (4.0-10.0)
[2018-01-24 08:02] LABS: ANION GAP 6 MMOL/L (8-16); BLOOD UREA NITROGEN 20 mg/dL (7-18); CALCIUM 9.4 mg/dL (8.5-10.1); CHLORIDE 113 mmol/L (98-107); CO2 23 mmol/L (21-32); CREATININE 1.6 mg/dL (0.55-1.3); GLUCOSE,RANDOM 105 mg/dL (74-106); MAGNESIUM 1.5 mg/dL (1.8-2.4); POTASSIUM 4.7 mmol/L (3.5-5.1); SODIUM 142 mmol/L (136-145)
[2018-01-24] MEDS ORDERED: CARVEDILOL 6.25 MG TABLET (FP) PO SCH (10:00)
[2018-01-24 13:59] VITALS: BP 105/66; PULSE 81; TEMP 97.8
--- NOTE | 2018-01-24 14:19 | PN ---
Progress Note, Physician History of Present Illness: Weakness, nausea w/o emesis, near without true syncope, flushing without diaphoresis and acute on CKD improving with IV hydration. - Current Medication List Current Medications: Active Medications Atorvastatin Calcium (Lipitor -) 40 mg PO HS [facility] Last Admin: 01/23/18 21:53 Dose: 40 mg Carvedilol (Coreg -) 6.25 mg PO BID [facility] Last Admin: 01/24/18 11:38 Dose: 6.25 mg Dextrose/Sodium Chloride (D5-Ns -) 1,000 mls @ 100 mls/hr IV ASDIR [facility] Last Admin: 01/23/18 10:28 Dose: 100 mls/hr Rivaroxaban (Xarelto -) 20 mg PO DAILY@1800 [facility] Last Admin: 01/23/18 17:43 Dose: 20 mg - Objective Vital Signs: Vital Signs Temperature 97.8 F 01/24/18 13:57 Pulse Rate 81 01/24/18 13:57 Respiratory Rate 18 01/24/18 13:57 Blood Pressure 105/66 01/24/18 13:57 O2 Sat by Pulse Oximetry (%) 97 01/24/18 09:00 Constitutional: Yes: No Distress, Calm, Thin Neck: Yes: Supple Cardiovascular: Yes: Pulse Irregular, Murmur (2/6 SM) Respiratory: Yes: Regular, Diminished, On Nasal O2 Gastrointestinal: Yes: Normal Bowel Sounds, Soft Edema: No Labs: CBC, BMP 01/24/18 06:45 01/24/18 06:30 INR, PTT INR 3.14 (0.83-1.09) H 01/21/18 20:15 Problem List - Problems (1) Bwzdk-oc-vxakveb kidney injury Code(s): N17.9 - ACUTE KIDNEY FAILURE, UNSPECIFIED; N18.9 - CHRONIC KIDNEY DISEASE, UNSPECIFIED Qualifiers: Acute renal failure type: unspecified Chronic kidney disease stage: unspecified stage Qualified Code(s): N17.9 - Acute kidney failure, unspecified ; N18.9 - Chronic kidney disease, unspecified (2) Hypercalcemia Code(s): E83.52 - HYPERCALCEMIA (3) Demand ischemia Code(s): I24.8 - OTHER FORMS OF ACUTE ISCHEMIC HEART DISEASE (4) Nonadherence to medication Code(s): Z91.14 - PATIENT'S OTHER NONCOMPLIANCE WITH MEDICATION REGIMEN (5) Persistent atrial fibrillation Code(s): I48.1 - PERSISTENT ATRIAL FIBRILLATION (6) Anticoagulant long-term use Code(s): Z79.01 - HALF-WAY (CURRENT) USE OF ANTICOAGULANTS (7) Coronary artery disease Code(s): I25.10 - ATHSCL HEART DISEASE OF [place] CORONARY ARTERY W/O ANG PCTRS Qualifiers: Coronary Disease-Associated Artery/Lesion type: [place] artery [place] vs. transplanted heart: [place] heart Associated angina: without angina Qualified Code(s): I25.10 - Atherosclerotic heart disease of [place] coronary artery without angina pectoris (8) Diastolic dysfunction without heart failure Code(s): I51.9 - HEART DISEASE, UNSPECIFIED (9) Hypertrophic cardiomyopathy Code(s): I42.2 - OTHER HYPERTROPHIC CARDIOMYOPATHY (10) Peripheral arterial disease Code(s): I73.9 - PERIPHERAL VASCULAR DISEASE, UNSPECIFIED (11) Atrial flutter Code(s): I48.92 - UNSPECIFIED ATRIAL FLUTTER Qualifiers: Atrial flutter type: typical Qualified Code(s): I48.3 - Typical atrial flutter (12) Vasovagal near syncope Code(s): R55 - SYNCOPE AND COLLAPSE Assessment/Plan R&LHc at [facility] 04/20/2016 showing nonobstructive CAD, severe LV apical hypertrophic cardiomyopathy, mildly elevated right sided pressures, Mynx deployed right RIP/MOULD OPERATOR access site. 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 Echocardiogram: 10/18/2017 Mod cLVH, severe PURVI, mod TR RVSP 50-60 mmHg, mod- severe MR Echocardiogram: 01/23/2018 Normal LV size with hyperdynamic LVEF 75%, mild BSH, normal RV size and fxn, severe LAE, mod-severe MR, mod TR 1. Vasovagal near syncope with typical prodromal sxs 2. Acute on CKD (pre-renal) improving 3. History of bilateral SFA occlusion post thrombectomy, referable to embolic disease related to persistent atrial fibrillation with [id number] score of 6, history of poor compliance with anticoagulation and medical F/U 4. Non obstructive CAD on R&LHc coronary angiography 5. LV diastolic dysfunction related to apical hypertrophic cardiomyopathy, subendocardial ischemia, compensated/euvolemic 6. Persistent atrial fibrillation [id number] score of 6 on Xarelto 20 qd 7. Labile HTN 8. Poor compliance with medical therapy administration and medical F/U 9. Tobacco abuse 10. Hypercalcemia, paraproteinemia-> possible multiple myeloma PLAN: 1. Continue Xarelto 20 qd, Lipitor 40 qd and d/c concomitant ASA 81 qd, trops downtrending 2. Continue Carvedilol 6.25 bid as hemodynamics tolerate 3. Consider outpatient DCCV for the above noted atrial arrhythmia once clinically stabilized and compliance with anticoagulation is assured. Patient was advised to follow up in office [phone] (previously been to office) 4. Hematology input, SPEP, UPEP pending 5. Judicious IVF with monitor renal recovery
--- NOTE | 2018-01-24 16:08 | DS ---
Physical Examination Vital Signs: Vital Signs Temperature 97.8 F 01/24/18 13:57 Pulse Rate 81 01/24/18 13:57 Respiratory Rate 18 01/24/18 13:57 Blood Pressure 105/66 01/24/18 13:57 O2 Sat by Pulse Oximetry (%) 97 01/24/18 09:00 Constitutional: Yes: No Distress Eyes: Yes: WNL HENT: Yes: WNL Neck: Yes: WNL Cardiovascular: Yes: Pulse Irregular Respiratory: Yes: WNL Gastrointestinal: Yes: WNL Renal/: Yes: WNL Musculoskeletal: Yes: WNL Extremities: Yes: WNL Edema: No Peripheral Pulses WNL: Yes Integumentary: Yes: WNL Wound/Incision: Yes: Clean/Dry Neurological: Yes: WNL ...Motor Strength: WNL Psychiatric: Yes: WNL Labs: CBC, BMP 01/24/18 06:45 01/24/18 06:30 Discharge Summary Reason For Visit: ACUTE RENAL FAILURE WEAKNESS Current Active Problems Lknel-qi-thaprxo kidney injury (Acute) Generalized weakness (Acute) History of ETOH abuse (Acute) Hypercalcemia (Acute) Hypoalbuminemia (Acute) Paraproteinemia (Acute) Vasovagal near syncope (Acute) Procedures: Principal: VASCULAR WORKUP Hospital Course: ADMITTED WORKUP NEGATIVE FOR VASCULAR STUDY, CARDIO EVAL COMPLETE, F/U OUTPATIENT Condition: Guarded - Instructions Diet, Activity, Other Instructions: LOW SALT SEE DR HAWTHORNE IN 1 WEEK Referrals: Zully Hawthorne MD [Primary Care Provider] - Disposition: VNS/HOME HEALTH CARE - Home Medications Comprehensive Discharge Medication List: Ambulatory Orders Atorvastatin Ca [Lipitor] 40 mg PO HS #30 tablet 10/19/17 Carvedilol [Coreg -] 6.25 mg PO BID #60 tablet 10/19/17 Rivaroxaban [Xarelto -] 20 mg PO DAILY@1800 #30 tablet 10/19/17 Carvedilol [Coreg -] 6.25 mg PO BID #60 tablet 01/24/18
[2018-01-24] MEDS: RIVAROXABAN 20 MG TABLET PO SCH (17:23)
--- NOTE | 2018-01-24 17:50 | PN ---
Progress Note (short form) - Note Progress Note: Renal follow up for MELITA Pt seen and examined at the bedside no acute complaints no sob, cp, abd pain, N/V/D feels well off IVF Vital Signs Temperature 97.8 F 01/24/18 13:57 Pulse Rate 81 01/24/18 13:57 Respiratory Rate 18 01/24/18 13:57 Blood Pressure 105/66 01/24/18 13:57 O2 Sat by Pulse Oximetry (%) 97 01/24/18 09:00 Intake & Output 01/21/18 01/22/18 01/23/18 01/24/18 23:59 23:59 23:59 23:59 Intake Total 1000 1200 1000 1100 Output Total 600 600 200 Balance 1000 600 400 900 Weight 88.677 kg 88.451 kg NAD awake and alert RRR CTA soft NT/ND No Le edema CBC, BMP 01/24/18 06:45 01/24/18 06:30 Current Medications Atorvastatin Calcium (Lipitor -) 40 mg PO HS [facility] Last Admin: 01/23/18 21:53 Dose: 40 mg Carvedilol (Coreg -) 6.25 mg PO BID [facility] Last Admin: 01/24/18 11:38 Dose: 6.25 mg Dextrose/Sodium Chloride (D5-Ns -) 1,000 mls @ 100 mls/hr IV ASDIR REPLACED [facility] Last Admin: 01/23/18 10:28 Dose: 100 mls/hr Rivaroxaban (Xarelto -) 20 mg PO DAILY@1800 [facility] Last Admin: 01/24/18 17:23 Dose: 20 mg 77 year-old male with a PMH significant for HTN, HLD, CAD, ischemic cardiomyopathy, paroxysmal A-fib on Xarelto, PVD with recent left arterial occlusion with stent placement, CKD, and ETOH abuse Presented with complaint of nausea and weakness. #MELITA #Hypercalcemia #Elevated serum protein levels with anemia #Hypertension Renal function improved Corrected Ca is 11.4 tolerating oral intake SPEP results pending stable for discharge with outpatient follow up if pt is able to tolerate oral diet Mack Miller DO
== END 2018-01-24 18:30 | disposition home health service (06) | DRG 683 ==
LOC: JER 18:29 → JERBED 21:05 → J7W 01-22 01:42
PROVIDERS: ADMIT Family Medicine; ATTEND Family Medicine
DX: N17.9 Acute kidney failure, unspecified (principal); I48.1 Persistent atrial fibrillation; I42.2 Other hypertrophic cardiomyopathy; J45.901 Unspecified asthma with (acute) exacerbation; I48.92 Unspecified atrial flutter; I50.32 Chronic diastolic (congestive) heart failure; I13.0 Hypertensive heart and chronic kidney disease with heart failure and stage 1 through stage 4 chronic kidney disease, or unspecified chronic kidney disease; I25.5 Ischemic cardiomyopathy; Z91.11 Patient's noncompliance with dietary regimen; N18.9 Chronic kidney disease, unspecified; I48.0 Paroxysmal atrial fibrillation; R73.03 Prediabetes; R68.0 Hypothermia, not associated with low environmental temperature; I45.10 Unspecified right bundle-branch block; Z79.01 Long term (current) use of anticoagulants; I25.10 Atherosclerotic heart disease of native coronary artery without angina pectoris; E83.52 Hypercalcemia; E78.5 Hyperlipidemia, unspecified; I73.9 Peripheral vascular disease, unspecified; Z98.61 Coronary angioplasty status; Z87.891 Personal history of nicotine dependence
CPT/HCPCS: 36415; 71045-TC-FY; 80048; 80053; 82310; 82550; 82553; 82570; 82803; 83605; 83735; 83935; 83970; 84100; 84155; 84156; 84165; 84300; 84439; 84443; 84480; 84481; 84484; 84550; 85025; 85027; 85610; 85730; 86850; 86900; 86901; 87040; 93005; 93010; 93306-TC; 93970-TC; 97116-GP; 97161-GP; 99285-25; J7030

== ENCOUNTER 2018-02-06 16:21 | Inpatient (IN) | payer OTHER ==
--- NOTE | 2018-02-06 16:57 | PDOC ---
History of Present Illness - General Chief Complaint: SIRS, Suspected/Possible Stated Complaint: AMS Time Seen by Provider: 02/06/18 16:37 History Source: EMS, Old Records Exam Limitations: Clinical Condition - History of Present Illness Initial Comments: 02/06/18 16:55 Pt is a 77yo m with PMH of Afib (on Xarelto), CAD, CKD, HTN, HLD, PVD with stent placement L foot BIBA for AMS. EMS was called by neighbors because mail had been piling up. EMS entered the home and noticed house was cold and not well kept, pt was laying on his bed with just a jacket on, oriented only to self. EMS noticed pt had a hospital band on from 2 weeks ago. Old records indicate pt was dc from this hospital on January 24. Pt is unable to answer questions. PMD: Kareem PMH: see hpi PSH: Meds: Allergies: valsartan Past History - Past Medical History Allergies/Adverse Reactions: Allergies Allergy/AdvReac Type Severity Reaction Status Date / Time valsartan Allergy Severe Verified 02/06/18 16:47 Home Medications: Ambulatory Orders Atorvastatin Ca [Lipitor] 40 mg PO HS #30 tablet 10/19/17 Rivaroxaban [Xarelto -] 20 mg PO DAILY@1800 #30 tablet 10/19/17 Carvedilol [Coreg -] 6.25 mg PO BID #60 tablet 01/24/18 Anemia: No Asthma: Yes Cancer: No Cardiac Disorders: Yes (PAROXYSMAL A.FIBRILLATION/A.FLUTTER) COPD: No Diabetes: Yes (BORDERLINE) HTN: Yes (BORDERLINE) Hypercholesterolemia: Yes - Surgical History Abdominal Surgery: Yes (HERNIA REPAIR) Cardiac Surgery: Yes (CARDIAC CATHERIZATION/CORONARY ANGIOGRAPHY) Orthopedic Surgery: Yes (Bone marrow biopsy) - Immunization History Immunization Up to Date: Yes - Suicide/Smoking/Psychosocial Hx Smoking History: Former smoker Have you smoked in the past 12 months: No Number of Cigarettes Smoked Daily: 10 If you are a former smoker, when did you quit?: 04.06.16 Information on smoking cessation initiated: No 'Breaking Loose' booklet given: 09/02/17 Hx Alcohol Use: No Drug/Substance Use Hx: No Substance Use Type: None Hx Substance Use Treatment: No Review of Systems - Review of Systems Able to Perform ROS?: No *Physical Exam - Vital Signs Last Vital Signs Temp Pulse Resp BP Pulse Ox 96.8 F L 130 H 20 190/169 H 90 L 02/06/18 16:43 02/06/18 16:43 02/06/18 16:43 02/06/18 16:43 02/06/18 16:43 - Physical Exam General Appearance: Yes: Disheveled, Moderate Distress, Cachetic HEENT: positive: EOMI, ESTEPHANIE, TMs Normal, Pharynx Normal, Hearing Grossly Normal , Other (dry mucousal membranes, bad dentition). negative: Nasal Congestion, Rhinorrhea Neck: positive: Trachea midline, Supple. negative: Carotid bruit, Lymphadenopathy (R), Lymphadenopathy (L) Respiratory/Chest: positive: Decreased Breath Sounds, Other (unable to fully evaluate, pt lying down, not taking in deep breaths when asked to). negative: Respiratory Distress Cardiovascular: positive: Tachycardia, Irregularly Irregular. negative: Edema, JVD, Murmur Vascular Pulses: Carotid (R): 2+, Carotid (L): 2+, Dorsalis-Pedis (R): 1+, Doralis-Pedis (L): 1+ Gastrointestinal/Abdominal: positive: Normal Bowel Sounds, Soft. negative: Distended, Guarding, Rebound, Tenderness, Hernia Male Genitalia: positive: normal genitalia. negative: testicular mass Musculoskeletal: positive: Other (R ankle tender to palpation). negative: CVA Tenderness Extremity: positive: Normal Capillary Refill, Swelling (R foot), Erythema (R ankle). negative: Cyanosis, Delayed Capillary Refill, Pedal Edema Integumentary: positive: Normal Color, Dry, Warm, Erythema (R ankle), Cold. negative: Pale, Clammy, Petechiae, Rash, Bruising Neurologic: positive: carry out clerk II-XII NML intact, Alert, Normal Response, Motor Strength 5/5, Responsive. negative: Fully Oriented (AOx1), Sensory Deficit ED Treatment Course - LABORATORY CBC & Chemistry Diagram: 02/06/18 17:02 02/06/18 18:00 - RADIOLOGY Radiology Studies Ordered: Category Date Time Status HEAD CT WITHOUT CONTRAST [CT] Stat CT Scan 02/06/18 16:37 Ordered CHEST X-RAY PORTABLE* [RAD] Stat Radiology 02/06/18 16:36 Ordered Medical Decision Making - Medical Decision Making 02/06/18 17:10 Pt is a 77yo m with PMH of Afib (on Xarelto), CAD, HTN, HLD, PVD BIBA for AMS. Last known well at discharge on January 24, 2018 Vitals: rectal 96.3, 120s hr, BP 196/165? PE: R foot tenderness, AOx1, responding to commands. Not answering questions. GCS 15 EMS- BGL 95, AOx1, Afib rvr with pvc. DDx: stroke, sepsis, uti, cellulitis elevated hr, low body temp...sirs? workup started. Angel hugger placed. repeat bp 103/86. will give fluids (pt looks dehydrated) CT head ordered. unknown down time. bgl ordered. CT head negative for pathology. Labs significant for Cr 2.8, Trop 0.8, CKMB 13.7, CK 409, Ca10.9, Hgb 10.6 (baseline) UA 2+ blood 4RBC. most likely melita from rhabdo with demand ischemia. Pt started on fluids. Given 3 liters total. Started on vanc and zosyn. R ankle xray done. Xray shows possible consolidation in R mid lung field or just vascularity. Xray ankle no fracture. Will admit pt for melita with rhabdo, cellulitis, afib rvr. Possible artery occlusion from PVD? however low suspicion bc pt can move toes, feels warm, 1+ pulses. *DC/Admit/Observation/Transfer Diagnosis at time of Disposition: MELITA (acute kidney injury), Atrial fibrillation with RVR Hypothermia Qualifiers: Encounter type: initial encounter Qualified Code(s): T68.XXXA - Hypothermia, initial encounter Cellulitis Qualifiers: Site of cellulitis: extremity Site of cellulitis of extremity: lower extremity Laterality: right Qualified Code(s): L03.115 - Cellulitis of right lower limb - Discharge Dispostion Condition at time of disposition: Good Decision to Admit order: Yes - Referrals - Patient Instructions - Post Discharge Activity
[2018-02-06] MEDS ORDERED: SODIUM CHLORIDE 1,000 ML IV STA ×3 (17:01→19:26)
[2018-02-06 17:17] LABS: BASO % 0.2 % (0-2.0); EOS % 0.6 % (0-4.5); HEMATOCRIT 31.6 % (35.4-49); HEMOGLOBIN 10.6 GM/dL (11.7-16.9); LYMPH % 24.4 % (8-40); MCH 30.3 pg (25.7-33.7); MCHC 33.5 g/dl (32.0-35.9); MEAN CELL VOLUME 90.4 fl (80-96); MONO % 4.2 % (3.8-10.2); NEUT % 70.6 % (42.8-82.8); PLATELET COUNT 301 K/MM3 (134-434); RDW 16.5 % (11.9-15.9); WHITE BLOOD COUNT 4.1 K/mm3 (4.0-10.0)
[2018-02-06 17:19] LABS: VENOUS PH 7.38 (7.32-7.42)
[2018-02-06 17:20] LABS: VENOUS PC02 42.3 mmHg (38-52); VENOUS PO2 23.3 mmHg (28-48)
[2018-02-06 17:41] LABS: INR 1.33 (0.83-1.09); PROTHROMBIN TIME (PATIENT) 15.7 SEC (9.7-13.0)
[2018-02-06 17:44] LABS: ACTIVATED PTT 22.3 SECONDS (25.2-36.5)
[2018-02-06 17:51] LABS: URINE APPEARANCE CLEAR; URINE BILIRUBIN NEGATIVE (<2.0 mg/dL); URINE COLOR YELLOW; URINE GLUCOSE (UA) NEGATIVE (NEGATIVE); URINE KETONE NEGATIVE (NEGATIVE); URINE LEUK ESTERASE NEGATIVE (NEGATIVE); URINE NITRITE NEGATIVE (NEGATIVE); URINE PROTEIN NEGATIVE (NEGATIVE); URINE UROBILINOGEN NEGATIVE mg/dL (0.2-1.0)
--- NOTE | 2018-02-06 17:58 | PDOC ---
Attending Attestation - Resident Resident Name: Elli Orellana - ED Attending Attestation I have performed the following: I have examined & evaluated the patient, The case was reviewed & discussed with the resident, I agree w/resident's findings & plan, Exceptions are as noted - HPI HPI: 02/06/18 17:56 77-year-old male brought in by ambulance from his residence. A neighbor saw his mail was collecting outside his residence and became concerned and called for help. EMS reports the patient was found in bed wearing only a sweater and the apartment appeared seem to be unheated. This 77-year-old male had been admitted to our hospital from January 21 the Jan 24 for acute renal failure. Past medical history of A. fib on Xalato, coronary artery disease, chronic kidney failure, peripheral vascular disease, hypertension. 02/06/18 18:02 - Physicial Exam PE: 02/06/18 17:59 Tall, thin 77-year-old male who appears dehydrated and frail. Head normocephalic, atraumatic, no evidence of scalp lacerations. Very dry mucous membranes Neck supple Lungs no crackles appreciated CVS tachycardia Abdomen is flat Extremities there is no edema, he has pain in his feet. Skin tenting due to dehydration. neuro . He is able to move his extremities ,patient is alert only to self - Medical Decision Making 02/06/18 19:29 CAT scan of the head did not show any acute intracranial pathology. EKG is tachycardic with A. fib. His prior history of A. fib UA negative for infection Comparing his renal function tests 11 days ago. He now has acute renal failure with a BUN about 60 and a creatinine of 2.8. He has a positive troponin of 0.8 Impression dehydration/acute renal insufficiency, positive troponin Admitted to telemetry
[2018-02-06 18:00] LABS: EPI CELLS RARE /HPF (FEW); URINE MUCUS RARE
[2018-02-06 18:04] LABS: PLATELET ESTIMATE ADEQUATE
[2018-02-06 19:19] LABS: ALBUMIN 1.4 g/dl (3.4-5.0); ALK PHOS 54 U/L (45-117); ANION GAP 7 MMOL/L (8-16); BILIRUBIN,TOTAL 0.3 mg/dL (0.2-1); CALCIUM 10.9 mg/dL (8.5-10.1); CHLORIDE 115 mmol/L (98-107); CO2 19 mmol/L (21-32); CREATININE 2.8 mg/dL (0.55-1.3); GLUCOSE,RANDOM 97 mg/dL (74-106); POTASSIUM 4.2 mmol/L (3.5-5.1); SGOT/AST 29 U/L (15-37); SGPT/ALT 11 U/L (13-61); SODIUM 140 mmol/L (136-145)
[2018-02-06 19:20] LABS: BLOOD UREA NITROGEN 67 mg/dL (7-18); TOT PROT 12.1 g/dl (6.4-8.2)
[2018-02-06] MEDS ORDERED: VANCOMYCIN 1 GRAM (PRE-DOCKED) 1,000 MG/250 ML BAG IVPB ONE ×2 (20:15→20:29)
[2018-02-06] MEDS ORDERED: PIPERACILLIN/TAZOB 3.375 GM 3.375 GM in DEXTROSE 5%-WATER - 50 ML IVPB ONE (20:15)
[2018-02-06] MEDS ORDERED: PIPERACILLIN/TAZOB 3.375 GM 3.375 GM/50 ML BAG IVPB ONE (20:29)
--- NOTE | 2018-02-06 21:45 | HP ---
CHIEF COMPLAINT: altered mental status PCP: HISTORY OF PRESENT ILLNESS: Patient is not responsive upon my encounter and history obtained from chart review, and discussion with ED resident. Patient is a 77 year old male with history of Afib on xarelto, coronary artery disease, chronic kidney disease, hypertension, hyperlipidemia, peripheral vascular disease s/p arterial stent in left lower extremity, alcohol abuse, and medication noncompliance presents after being found non responsive at home. Patient was noted to be found with hospital band still on his arm. He was sleeping in bed, wearing a sweater. Upon my encounter, he is alert only to name. Believes he is currently in [facility]. Unable to follow commands. ER course was notable for: (1) CT head, Chest Xray (2) UA (3) troponin 0.80 PAST MEDICAL HISTORY: Afib on xarelto, coronary artery disease, chronic kidney disease, hypertension, hyperlipidemia, peripheral vascular disease s/p arterial stent in left lower extremity, alcohol abuse, PAST SURGICAL HISTORY: Social History: Smoking: former smoker Alcohol: history of alcohol abuse Drugs: unable to obtain Family History: unable to obtain Allergies valsartan Allergy (Severe, Verified 02/06/18 16:47) HOME MEDICATIONS: Home Medications Medication Instructions Recorded Atorvastatin Ca [Lipitor] 40 mg PO HS #30 tablet 10/19/17 Carvedilol [Coreg -] 6.25 mg PO BID #60 tablet 10/19/17 Rivaroxaban [Xarelto -] 20 mg PO DAILY@1800 #30 tablet 10/19/17 Carvedilol [Coreg -] 6.25 mg PO BID #60 tablet 01/24/18 REVIEW OF SYSTEMS Unable to obtain due to patient nonresponsiveness. PHYSICAL EXAMINATION Vital Signs - 24 hr 02/06/18 02/06/18 02/06/18 16:36 16:43 17:45 Temperature 96.9 F L 96.8 F L Pulse Rate 140 H Pulse Rate [ 130 H 120 H Apical] Respiratory 20 20 16 Rate Blood Pressure 190/169 H Blood Pressure 103/82 99/43 L [Right Arm] O2 Sat by Pulse 96 96 97 Oximetry (%) 02/06/18 02/06/18 02/06/18 18:36 18:43 19:56 Temperature 97.4 F L Pulse Rate 120 H Pulse Rate [ 110 H 110 H Apical] Respiratory 16 Rate Blood Pressure Blood Pressure 103/68 103/82 [Right Arm] O2 Sat by Pulse 98 100 100 Oximetry (%) 02/06/18 20:14 Temperature 97.6 F Pulse Rate Pulse Rate [ 110 H Apical] Respiratory 18 Rate Blood Pressure Blood Pressure 103/62 [Right Arm] O2 Sat by Pulse 98 Oximetry (%) GENERAL: Thin male, temporal wasting, poorly groomed, with overgrown, dirty finger and toe nails. Somnolent. Alert only to name. HEAD: Normal with no signs of trauma. No Farias's sign appreciated. EYES: Pupils equal, round and reactive to light. Sclera anicteric, conjunctiva clear b/l. Patient unable to comply with extraocular eye movements, however moves both eyes to track. EARS, NOSE, THROAT: Oral mucosa dry, poor dentition, with numerous missing teeth. NECK: Supple without lymphadenopathy LUNGS: Poor inspiratory effort b/l with crackles auscultated in right lower lung base. No wheezing appreciated. Left lung clear to auscultation. HEART: Irregular rate and rhythm. Normal S1 and S2 auscultated without murmur, rub or gallop. ABDOMEN: Soft, nontender, not distended. Hypoactive bowel sounds X4 quadrants. No guarding, no rebound tendernes. No hepatomegaly or splenomegaly palpated or percussed. UPPER EXTREMITIES: 2+ radial pulses b/l, warm, well-perfused. LOWER EXTREMITIES: Unable to appreciated DP pulses B/L. 1+ posterior tibialis pulses appreciated b/l. Right lower extremity erythematous, warm, and swollen, compared to right NEUROLOGICAL: Unable to assess motion, strength as patient not responding to commands. Good muscle tone b/l upper and lower extremities. SKIN: Dry, cracking skin noted in b/l lower extremities, and between toes. Laboratory Results - last 24 hr 02/06/18 02/06/18 02/06/18 17:02 17:02 17:02 WBC 4.1 RBC 3.50 L Hgb 10.6 L Hct 31.6 L MCV 90.4 MCH 30.3 MCHC 33.5 RDW 16.5 H Plt Count 301 D MPV 9.0 Absolute Neuts (auto) 2.9 Neutrophils % 70.6 D Neutrophils % (Manual) 74.0 D Band Neutrophils % 2.0 Lymphocytes % 24.4 D Lymphocytes % (Manual) 18.0 D Monocytes % 4.2 Monocytes % (Manual) 2 L Eosinophils % 0.6 Eosinophils % (Manual) 0.0 D Basophils % 0.2 Basophils % (Manual) 0.0 Myelocytes % (Man) 2 D Nucleated RBC % 2 H Platelet Estimate Adequate PT with INR 15.70 H INR 1.33 H PTT (Actin FS) 22.3 L VBG pH POC VBG pCO2 POC VBG pO2 Mixed VBG HCO3 Sodium Potassium Chloride Carbon Dioxide Anion Gap BUN Creatinine Creat Clearance w eGFR Random Glucose Lactic Acid Calcium Total Bilirubin AST ALT Alkaline Phosphatase Creatine Kinase Creatine Kinase Index CK-MB (CK-2) Troponin I Total Protein Albumin Urine Color Yellow Urine Appearance Clear Urine pH 5.0 Ur Specific Isabella 1.018 Urine Protein Negative Urine Glucose (UA) Negative Urine Ketones Negative Urine Blood 2+ H Urine Nitrite Negative Urine Bilirubin Negative Urine Urobilinogen Negative Ur Leukocyte Esterase Negative Urine WBC (Auto) <1 Urine RBC (Auto) 4 Ur Epithelial Cells Rare Urine Mucus Rare Blood Type Antibody Screen 02/06/18 02/06/18 02/06/18 17:02 17:02 17:02 WBC RBC Hgb Hct MCV MCH MCHC RDW Plt Count MPV Absolute Neuts (auto) Neutrophils % Neutrophils % (Manual) Band Neutrophils % Lymphocytes % Lymphocytes % (Manual) Monocytes % Monocytes % (Manual) Eosinophils % Eosinophils % (Manual) Basophils % Basophils % (Manual) Myelocytes % (Man) Nucleated RBC % Platelet Estimate PT with INR INR PTT (Actin FS) VBG pH 7.38 POC VBG pCO2 42.3 D POC VBG pO2 23.3 L D Mixed VBG HCO3 24.5 Sodium Cancelled Potassium Cancelled Chloride Cancelled Carbon Dioxide Cancelled Anion Gap Cancelled BUN Cancelled Creatinine Cancelled Creat Clearance w eGFR Cancelled Random Glucose Cancelled Lactic Acid 2.0 Calcium Cancelled Total Bilirubin Cancelled AST Cancelled ALT Cancelled Alkaline Phosphatase Cancelled Creatine Kinase Cancelled Creatine Kinase Index CK-MB (CK-2) Cancelled Troponin I Total Protein Cancelled Albumin Cancelled Urine Color Urine Appearance Urine pH Ur Specific Isabella Urine Protein Urine Glucose (UA) Urine Ketones Urine Blood Urine Nitrite Urine Bilirubin Urine Urobilinogen Ur Leukocyte Esterase Urine WBC (Auto) Urine RBC (Auto) Ur Epithelial Cells Urine Mucus Blood Type Antibody Screen 02/06/18 02/06/18 02/06/18 17:02 17:02 18:00 WBC RBC Hgb Hct MCV MCH MCHC RDW Plt Count MPV Absolute Neuts (auto) Neutrophils % Neutrophils % (Manual) Band Neutrophils % Lymphocytes % Lymphocytes % (Manual) Monocytes % Monocytes % (Manual) Eosinophils % Eosinophils % (Manual) Basophils % Basophils % (Manual) Myelocytes % (Man) Nucleated RBC % Platelet Estimate PT with INR INR PTT (Actin FS) VBG pH POC VBG pCO2 POC VBG pO2 Mixed VBG HCO3 Sodium 140 Potassium 4.2 Chloride 115 H Carbon Dioxide 19 L Anion Gap 7 L BUN 67 H Creatinine 2.8 H Creat Clearance w eGFR 21.97 Random Glucose 97 Lactic Acid Calcium 10.9 H Total Bilirubin 0.3 AST 29 ALT 11 L Alkaline Phosphatase 54 Creatine Kinase 409 H Creatine Kinase Index 3.3 CK-MB (CK-2) 13.7 H Troponin I Cancelled 0.80 H* Total Protein 12.1 H Albumin 1.4 L Urine Color Urine Appearance Urine pH Ur Specific Isabella Urine Protein Urine Glucose (UA) Urine Ketones Urine Blood Urine Nitrite Urine Bilirubin Urine Urobilinogen Ur Leukocyte Esterase Urine WBC (Auto) Urine RBC (Auto) Ur Epithelial Cells Urine Mucus Blood Type Cancelled Antibody Screen Cancelled ASSESSMENT/PLAN: Patient is a 77 year old male with history of Afib on xarelto, coronary artery disease, chronic kidney disease, hypertension, hyperlipidemia, peripheral vascular disease s/p arterial stent in left lower extremity, alcohol abuse, and medication noncompliance presents after being found non responsive at home. Altered mental status -Unclear etiology. May be secondary to toxic metabolic encephalopathy as patient has history of alcohol abuse. Uncertain last alcoholic drink. -CT head showed no acute intracranial pathology -IV normal saline at 125mL/ hour -[facility] protocol -Thiamine -Folate -F/U urine toxicology -F/U blood alcohol level Hypercalcemia -Prior admission had begun workup for multiple myeloma (KARISHMA M-spike 4.7) -Patient receiving IV normal saline -Will continue fluids as discussed with nephrology (Dr. Howard). -F/U ionized calcium -Consider hematology-oncology consult Troponinemia -Likely secondary to demand ischemia as patient was dehydrated, hypovolemic -Troponin 0.80. Will trend -EKG showed -F/U cardiology consult (Dr. Hightower) Acute on chronic kidney injury -Cr 2.8 (1.6 on prior discharge earlier this month). Baseline Cr. at approx 1.3 -May be secondary to dehydration -Patient receiving IV normal saline -F/U nephrology consult (Dr. Howard) Afib (CHADSVASC 6) -Reinstate home medication Xarelto 20mg History peripheral vascular disease s/p arterial stent in left lower extremity -Patient's right lower extremity erythematous, with poor pulses -Duplex arterial and venous ultrasound of right lower extremity -F/U official read of xray right lower extremity done in ED -Vascular surgery consult (Dr. Rico) Coronary artery disease -Continue Aspirin 81mg -Continue Lipitor 40mg FEN -IV normal saline at 125mL/ hour -Hypecalcemia. 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 - New Patient This patient is new to me today: Yes Date on this admission: 02/07/18 - Critical Care Critical Care patient: No
--- NOTE | 2018-02-06 21:53 | PN ---
Teaching Attending Note Name of Resident: Tasia Valentin ATTENDING PHYSICIAN STATEMENT I saw and evaluated the patient. I reviewed the resident's note and discussed the case with the resident. I agree with the resident's findings and plan as documented. SUBJECTIVE: Patient is a 77 y/o AAM with a PMH significant for Persistent AFib (on xarelto, Coreg, CHADSVASC 6), PAD (s/p stenting LLE 4 months ago), Alcohol Abuse, suspected myeloma (due to paraproteinemia and M spike, SPEP/UPEP results not yet found), hypertrophic CM (apical), diastolic dysfunction, Nonobstructive CAD (2017 cath done at [facility]), tobacco abuse, multiple admissions to our service in the past year. His history has been complicated by documented noncompliance. He presents today via EMS with altered mental status after being found down at his home by EMS after his neighbor found mail piling up, etc. He was brought to the ER and was arousable and following commands but not answering questions appropriately and is altered and cannot provide any acurate history; I am told he was still wearing his wristband from his last discharge. He was found to be hypothermic and tachycardic with a marked hypercalcemia and an MELITA. This is similar to his prior presentation when he was found to be hypercalcemic ( discharged with Ca of 11 corrected) and hypothermic. ER was concerned for possible cellulitis given the findings on his lower extremity (R) with redness and covered him broadly, recieved fluids. Being admitted to the medicine service. Thank you for allowing us to take part in the ongoing care of your patient. 10 sys ROS couldn't be completed due to mentation Social history significant for h/o EtOH abuse, tobacco abuse FH could not be confirmed with patient PMH and PSH discussed OBJECTIVE: VS, labs, and imaging all personally reviewed NAD, resting in bed, confused, orientated to self Tachycardic with irregular rhythm no isabela mgr Lungs CTAB with sym expansion NT ND +BS x4 quads CN2-12 grossly intact, no FND, altered, follows basic commands but easily confused, no confabulation Normal muscle tone, reddish discoloration over distal RLE, near global onchyomycosis CXR today without any obvious disease Old vascular studies reviewed; he does have diffuse athrosclerotic plaques throughout his RLE 6 months ago KARISHMA M-spike 01/22 @ 4.7 with elevated serum protein and low albumin; I haven't been able to find the results of SPEP and UPEP Troponin, CK, and CKMB are elevated today ASSESSMENT AND PLAN: Patient is a 77 y/o AAM with stated PMH who presents to ER with AMS after being found down at home; he is being admitted to medicine for a variety of reasons including AMS, hypercalcemia, elevated troponin, NAGMA, tachycardia, profound dehydration, MELITA. 1) AMS -Likely multifactoral; must r/o EtOH intoxication so checking EtOH level. Checking EtOH level. Placing on CIWA. Giving thiamine/folate. Hypercalcemia likely could be playing a role so we will treat. -No FND but was not excellent neuro exam due to underlying AMS. If he improves will reattempt as he has been off of his Xarelto likely given his elevated CHADSVASC2 he is a stroke risk; if any concern for CVA will consult neurology and obtain MRI, etc. He is moving all 4 extemities now without any obvious CN defects or sensory changes; CT negative. -Neuro checks, seizure precautions. -Some difficulty swallowing on his own with bedside swallow; plan on swallow study in AM. Assist with PO medications. 2) Hypercalcemia -Corrects to 13 range given albumin; recurring problem. Concern for multiple myeloma in the past given M-Olegario. SPEP and UPEP documented as pending; was unable to find the results at this juncture but will continue to search/request OP records. -Consulting nephrology; hydrating with NS @ 125cc/hr -Monitor Calcium levels; check ionized calcium. 3) PAD, likely worsening -Known severe PAD s/p LLE stenting now with RLE skin changes suspect for worsening PAD. Checking ultrasound of RLE to see if worsening disease; if it is then will plan to consult vascular. He does have palpable pulses, etc. 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 Has had this issue before. Nephrology has been consulted and will defer management to their service ultimately. Monitor BMP and UOP. 5) Elevated Troponin -Trend and monitor on telemetry; consult CV. No date for last stress test; was cathed in 2017 at [facility] but do not have the report (was aparently R and L heart cath). We will obtain the old records and followup with CV recommendations. 6) Hypertrophic CM -Known; nonacute. Careful management with fluids and control BP. OP followup with CV. 7) Diastolic Dysfunction -Per above 8) Nonobstructing CAD -Consider adding ASA prior to DC -Continue statin, BB -Positive troponin likely demand, but please refer to that section for further details. 9) Tobacco Abuse -Watch Engine Operator when clinically appropriate 10) Alcohol Abuse -Unknown last drink; some notes say he was actually using less than he was in the past. We will check an alcohol level and place on CIWA. Thiamine and folate to be given to avoid any Wernicke-Korsakoff 11) Suspected MM -Elucidate the status of SPEP/UPEP and involve oncology if need be; need to obtain old records. 12) Persistent Afib with RVR -Known dx with CV=6; noncompliant with tx. Placing back on home meds. Tachycardia observed not likely sepsis-more likely him not using his BB and fluid depletion. Titrate BB as needed. -Please refer to #1 regarding AMS and CVA risk 13) RLE Reddness -RO worsening PAD 14) Hypoalbuminemia -Chronic; will plan to monitor CMP and check prealbumin. Full Code
[2018-02-06] MEDS: THIAMINE HCL 100 MG TABLET (FP) PO SCH (22:30)
[2018-02-06] MEDS: FOLIC ACID 1 MG TABLET (FP) PO SCH (22:30)
[2018-02-06] MEDS: RIVAROXABAN 20 MG TABLET PO STA (22:30)
[2018-02-07] MEDS: THIAMINE HCL 100 MG TABLET (FP) PO SCH ×2 (00:54→11:36)
[2018-02-07] MEDS: RIVAROXABAN 20 MG TABLET PO STA (00:55)
[2018-02-07] MEDS: FOLIC ACID 1 MG TABLET (FP) PO SCH ×3 (01:08→11:36)
[2018-02-07 01:12] LABS: BASO % 0.3 % (0-2.0); HEMATOCRIT 29.2 % (35.4-49); HEMOGLOBIN 9.7 GM/dL (11.7-16.9); LYMPH % 28.1 % (8-40); MCHC 33.1 g/dl (32.0-35.9); MEAN CELL VOLUME 90.7 fl (80-96); MONO % 8.6 % (3.8-10.2); PLATELET COUNT 236 K/MM3 (134-434); RBC 3.22 M/mm3 (4.00-5.60); RDW 16.6 % (11.9-15.9); WHITE BLOOD COUNT 3.7 K/mm3 (4.0-10.0)
[2018-02-07] MEDS: SODIUM CHLORIDE 1,000 ML IV SCH ×2 (01:14→21:45)
[2018-02-07 01:35] LABS: ALBUMIN 1.4 g/dl (3.4-5.0); ALK PHOS 53 U/L (45-117); ANION GAP 4 MMOL/L (8-16); BILIRUBIN,TOTAL 0.4 mg/dL (0.2-1); BLOOD UREA NITROGEN 66 mg/dL (7-18); CALCIUM 10.6 mg/dL (8.5-10.1); CHLORIDE 114 mmol/L (98-107); CO2 23 mmol/L (21-32); GLUCOSE,RANDOM 94 mg/dL (74-106); POTASSIUM 4.2 mmol/L (3.5-5.1); SGOT/AST 30 U/L (15-37); SGPT/ALT 10 U/L (13-61); SODIUM 142 mmol/L (136-145); TOT PROT 11.4 g/dl (6.4-8.2)
[2018-02-07] MEDS ORDERED: chlordiazePOXIDE HCL 25 MG CAPSULE PO PRN (02:25)
[2018-02-07] MEDS ORDERED: SODIUM CHLORIDE 250 ML IV STA (02:27)
[2018-02-07 03:24] LABS: ANISOCYTOSIS 2+; MACROCYTOSIS 0; PLATELET ESTIMATE NORMAL
[2018-02-07] MEDS: chlordiazePOXIDE HCL 25 MG CAPSULE PO SCH ×3 (05:35→17:12)
[2018-02-07 06:47] LABS: BASO % 0.4 % (0-2.0); EOS % 1.1 % (0-4.5); HEMATOCRIT 26.7 % (35.4-49); HEMOGLOBIN 8.8 GM/dL (11.7-16.9); MCH 29.8 pg (25.7-33.7); MCHC 32.9 g/dl (32.0-35.9); MEAN CELL VOLUME 90.6 fl (80-96); MEAN PLT VOLUME 8.7 fl (7.5-11.1); MONO % 4.4 % (3.8-10.2); NEUT % 59.1 % (42.8-82.8); PLATELET COUNT 219 K/MM3 (134-434); RBC 2.95 M/mm3 (4.00-5.60); RDW 16.2 % (11.9-15.9); WHITE BLOOD COUNT 3.4 K/mm3 (4.0-10.0)
[2018-02-07 07:35] LABS: ALBUMIN 1.3 g/dl (3.4-5.0); ALK PHOS 50 U/L (45-117); ANION GAP 5 MMOL/L (8-16); BILIRUBIN,TOTAL 0.3 mg/dL (0.2-1); BLOOD UREA NITROGEN 65 mg/dL (7-18); CALCIUM 10.6 mg/dL (8.5-10.1); CHLORIDE 118 mmol/L (98-107); CO2 21 mmol/L (21-32); GLUCOSE,RANDOM 78 mg/dL (74-106); MAGNESIUM 2.4 mg/dL (1.8-2.4); POTASSIUM 4.3 mmol/L (3.5-5.1); SGOT/AST 31 U/L (15-37); SGPT/ALT 10 U/L (13-61); SODIUM 143 mmol/L (136-145); TOT PROT 10.7 g/dl (6.4-8.2)
--- NOTE | 2018-02-07 08:01 | PN ---
Progress Note, Physician Chief Complaint: EVENTS AND NOTES REVIEWED PATIENT IN BED UNABLE TO FOLLOW COMMANDS CONFUSED - Current Medication List Current Medications: Active Medications Chlordiazepoxide HCl (Librium -) 50 mg PO [id number] [facility] Stop: 02/07/18 23:01 Last Admin: 02/07/18 05:35 Dose: 50 mg Chlordiazepoxide HCl (Librium -) 25 mg PO [id number] [facility] Stop: 02/08/18 23:01 Chlordiazepoxide HCl (Librium -) 15 mg PO [id number] [facility] Stop: 02/09/18 23:01 Chlordiazepoxide HCl (Librium -) 25 mg PO Q4H PRN PRN Reason: WITHDRAWAL(CONT SUBST) Stop: 02/10/18 02:24 Chlordiazepoxide HCl (Librium -) 10 mg PO [id number] [facility] Stop: 02/10/18 23:01 Folic Acid (Folic Acid -) 1 mg PO DAILY [facility] Last Admin: 02/07/18 01:09 Dose: 1 mg Sodium Chloride (Normal Saline -) 1,000 mls @ 125 mls/hr IV ASDIR [facility] Last Admin: 02/07/18 01:14 Dose: 125 mls/hr Thiamine HCl (Vitamin B1 -) 100 mg PO DAILY [facility] Last Admin: 02/07/18 00:54 Dose: 100 mg - Objective Vital Signs: Vital Signs Temperature 97.3 F L 02/07/18 05:44 Pulse Rate 106 H 02/07/18 05:44 Respiratory Rate 18 02/07/18 05:44 Blood Pressure 111/58 L 02/07/18 05:44 O2 Sat by Pulse Oximetry (%) 94 L 02/07/18 00:15 Constitutional: Yes: Mild Distress Eyes: Yes: Other HENT: Yes: WNL Neck: Yes: WNL Cardiovascular: Yes: Pulse Irregular Respiratory: Yes: CTA Bilaterally, On Nasal O2 Gastrointestinal: Yes: Normal Bowel Sounds, Soft Genitourinary: Yes: Incontinence Musculoskeletal: Yes: Muscle Weakness Extremities: Yes: WNL Edema: No Peripheral Pulses WNL: Yes Integumentary: Yes: WNL Wound/Incision: Yes: Clean/Dry Neurological: Yes: Confusion ...Motor Strength: LLE, RLE Psychiatric: Yes: Other Labs: CBC, BMP 02/07/18 06:00 02/07/18 06:00 INR, PTT INR 1.33 (0.83-1.09) H 02/06/18 17:02 Problem List - Problems (1) MELITA (acute kidney injury) Code(s): N17.9 - ACUTE KIDNEY FAILURE, UNSPECIFIED (2) Atrial fibrillation with RVR Code(s): I48.91 - UNSPECIFIED ATRIAL FIBRILLATION (3) Hyperlipidemia Code(s): E78.5 - HYPERLIPIDEMIA, UNSPECIFIED Qualifiers: Hyperlipidemia type: pure hypercholesterolemia Qualified Code(s): E78.00 - Pure hypercholesterolemia, unspecified; E78.0 - Pure hypercholesterolemia (4) Hypothermia Code(s): T68.XXXA - HYPOTHERMIA, INITIAL ENCOUNTER Qualifiers: Encounter type: initial encounter Qualified Code(s): T68.XXXA - Hypothermia , initial encounter (5) Jdqtu-by-ntfhlss kidney injury Code(s): N17.9 - ACUTE KIDNEY FAILURE, UNSPECIFIED; N18.9 - CHRONIC KIDNEY DISEASE, UNSPECIFIED Qualifiers: Acute renal failure type: unspecified Chronic kidney disease stage: unspecified stage Qualified Code(s): N17.9 - Acute kidney failure, unspecified ; N18.9 - Chronic kidney disease, unspecified (6) Generalized weakness Code(s): R53.1 - WEAKNESS (7) History of ETOH abuse Code(s): Z87.898 - PERSONAL HISTORY OF OTHER SPECIFIED CONDITIONS (8) Hypercalcemia Code(s): E83.52 - HYPERCALCEMIA (9) Hypertrophic cardiomyopathy Code(s): I42.2 - OTHER HYPERTROPHIC CARDIOMYOPATHY (10) Toxic metabolic encephalopathy Code(s): G92 - TOXIC ENCEPHALOPATHY (11) Sepsis Code(s): A41.9 - SEPSIS, UNSPECIFIED ORGANISM Assessment/Plan SUSPECT HYPERCALCEMIA WITH UNDERLINE SEPSIS ID CONSULT IV ABX RENAL WORKUP/IVF IV THIAMINE/FOLIC ACID/MVI PT EVAL NEURO CHECKS OOB TO CHAIR/FALL PRECATIONS NEUROLOG WORKUP CT HEAD NEG X 1
--- NOTE | 2018-02-07 09:35 | CON.CARD ---
Consult Consult Specialty:: Cardiology Referred by:: Hospitalist Medicine Reason for Consultation:: afib h/o thromboembolism - History of Present Illness Chief Complaint: Altered mental status History of Present Illness: This is a 77 y/o man with a PMHx of Persistent Afib [id number] with recurrent peripheral arterial embolism due to previous noncompliance with Xarelto due to lack of social support, Diabetes Mellitus, Apical Hypertrophic Cardiomyopathy, Alcohol Abuse, nonobstructive CAD h/o anaphylaxis after eating [place] Food- shrimp and boneless spare ribs, suspected myeloma (due to paraproteinemia and M spike, SPEP/UPEP results not yet found), recent admission for vasovagal near syncope and MELITA presented with altered mental status after being found down at his home by EMS after his neighbor found mail piling up, etc. He was brought to the ER and was arousable and following commands but not answering questions appropriately and is altered and cannot provide any acurate history; I am told he was still wearing his wristband from his last discharge. He was found to be hypothermic and tachycardic with a marked hypercalcemia and MELITA. This is similar to his prior presentation when he was found to be hypercalcemic ( discharged with Ca of 11 corrected) and hypothermic. ER was concerned for possible cellulitis given the findings on his lower extremity (R) with redness and covered him broadly, recieved fluids. Cannot provide history. - History Source History Provided By: Medical Record Limitations to Obtaining History: Clinical Condition - Past Medical History Cardio/Vascular: Yes: AFIB, HTN, [place] - Past Surgical History Past Surgical History: Yes: Hernia Repair - Alcohol/Substance Use Hx Alcohol Use: Yes History of Substance Use: reports: None - Smoking History Smoking history: Former smoker Have you smoked in the past 12 months: No Aproximately how many cigarettes per day: 10 If you are a former smoker, when did you quit?: 04.06.16 Home Medications - Allergies Allergies/Adverse Reactions: Allergies Allergy/AdvReac Type Severity Reaction Status Date / Time valsartan Allergy Severe Verified 02/06/18 16:47 - Home Medications Home Medications: Ambulatory Orders Atorvastatin Ca [Lipitor] 40 mg PO HS #30 tablet 10/19/17 Rivaroxaban [Xarelto -] 20 mg PO DAILY@1800 #30 tablet 10/19/17 Carvedilol [Coreg -] 6.25 mg PO BID #60 tablet 01/24/18 Vital Signs: Vital Signs Temperature 96.5 F L 02/07/18 09:31 Pulse Rate 100 H 02/07/18 09:31 Respiratory Rate 20 02/07/18 09:31 Blood Pressure 118/64 02/07/18 09:31 O2 Sat by Pulse Oximetry (%) 94 L 02/07/18 00:15 Constitutional: Yes: No Distress, Calm, Thin Neck: Yes: Supple Respiratory: Yes: Regular, Diminished, On Nasal O2 Gastrointestinal: Yes: Soft, Hypoactive Bowel Sounds Cardiovascular: Yes: Tachycardia, Pulse Irregular JVD: No Carotid Bruit: No Heart Sounds: Yes: S1, S2 Murmur: Yes: Systolic Murmur, Grade 2 Edema: No - Other Data Labs, Other Data: CBC, BMP 02/07/18 06:00 02/07/18 06:00 INR, PTT INR 1.33 (0.83-1.09) H 02/06/18 17:02 Troponin, BNP 02/06/18 02/06/18 02/07/18 17:02 18:00 00:55 Troponin I Cancelled 0.80 H* 0.74 H* 02/07/18 06:00 Troponin I 0.77 H* Troponin, BNP 02/06/18 02/06/18 02/07/18 17:02 18:00 00:55 Troponin I Cancelled 0.80 H* 0.74 H* 02/07/18 06:00 Troponin I 0.77 H* EKG: Afib @ 124 Imaging - Results Chest X-ray: Report Reviewed (NAD) Cat Scan: Report Reviewed (HCT: No bleed) Problem List - Problems (1) Atrial fibrillation with RVR Code(s): I48.91 - UNSPECIFIED ATRIAL FIBRILLATION (2) Vvyqo-cx-xpfodea kidney injury Code(s): N17.9 - ACUTE KIDNEY FAILURE, UNSPECIFIED; N18.9 - CHRONIC KIDNEY DISEASE, UNSPECIFIED Qualifiers: Acute renal failure type: unspecified Chronic kidney disease stage: unspecified stage Qualified Code(s): N17.9 - Acute kidney failure, unspecified ; N18.9 - Chronic kidney disease, unspecified (3) Demand ischemia Code(s): I24.8 - OTHER FORMS OF ACUTE ISCHEMIC HEART DISEASE (4) Hypercalcemia Code(s): E83.52 - HYPERCALCEMIA (5) Nonadherence to medication Code(s): Z91.14 - PATIENT'S OTHER NONCOMPLIANCE WITH MEDICATION REGIMEN (6) Paraproteinemia Code(s): D89.2 - HYPERGAMMAGLOBULINEMIA, UNSPECIFIED (7) Anticoagulant long-term use Code(s): Z79.01 - SHELTER (CURRENT) USE OF ANTICOAGULANTS (8) Chronic thromboembolic disease Code(s): I74.9 - EMBOLISM AND THROMBOSIS OF UNSPECIFIED ARTERY (9) Coronary artery disease Code(s): I25.10 - ATHSCL HEART DISEASE OF [place] CORONARY ARTERY W/O ANG PCTRS Qualifiers: Coronary Disease-Associated Artery/Lesion type: [place] artery [place] vs. transplanted heart: [place] heart Associated angina: without angina Qualified Code(s): I25.10 - Atherosclerotic heart disease of [place] coronary artery without angina pectoris (10) Diastolic dysfunction without heart failure Code(s): I51.9 - HEART DISEASE, UNSPECIFIED (11) HTN (hypertension) Code(s): I10 - ESSENTIAL (PRIMARY) HYPERTENSION Qualifiers: Hypertension type: essential hypertension Qualified Code(s): I10 - Essential (primary) hypertension (12) Hypertrophic cardiomyopathy Code(s): I42.2 - OTHER HYPERTROPHIC CARDIOMYOPATHY (13) Hyperlipidemia Code(s): E78.5 - HYPERLIPIDEMIA, UNSPECIFIED Qualifiers: Hyperlipidemia type: pure hypercholesterolemia Qualified Code(s): E78.00 - Pure hypercholesterolemia, unspecified; E78.0 - Pure hypercholesterolemia Assessment/Plan R&LHc at [facility] 04/20/2016 showing nonobstructive CAD, severe LV apical hypertrophic cardiomyopathy, mildly elevated right sided pressures, Mynx deployed right [employer]POR[employer] access site. 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 Echocardiogram: 10/18/2017 Mod cLVH, severe PURVI, mod TR RVSP 50-60 mmHg, mod- severe MR Echocardiogram: 01/23/2018 Normal LV size with hyperdynamic LVEF 75%, mild BSH, normal RV size and fxn, severe LAE, mod-severe MR, mod TR 1. Toxic metabolic encephelopathy, r/o CVA while off NOAC, r/o sepsis 2. Acute on CKD (pre-renal) 3. Hypercalcemia, paraproteinemia-> possible multiple myeloma 3. History of bilateral SFA occlusion post thrombectomy, referable to embolic disease related to persistent atrial fibrillation with [id number] score of 6, history of poor compliance with anticoagulation and medical F/U 4. Non obstructive CAD on R&c coronary angiography with demand ischemia 5. LV diastolic dysfunction related to apical hypertrophic cardiomyopathy, subendocardial ischemia, compensated/euvolemic 6. Persistent atrial fibrillation [id number] score of 6 on Xarelto 20 qd 7. Labile HTN 8. Poor compliance with medical therapy administration and medical F/U 9. Tobacco abuse 10. ETOH dependence PLAN: 1. Continue Lipitor 40 qd and decrease Xarelto 15 qd (renal dosing), trops downtrending 2. Continue Carvedilol 6.25 bid as hemodynamics tolerate 3. Hematology input, SPEP, UPEP pending 4. Judicious IVF with monitor renal recovery, renal input pending 5. Empiric abx course pending C&S, undergoing Librum detox 6. Thank you for consultative opportunity
--- NOTE | 2018-02-07 09:58 | CONSULT ---
Admitting History and Physical - Primary Care Physician PCP: Mary Dickey - Admission History of Present Illness: Patient is a 77 year old male with history of Afib on xarelto, coronary artery disease, chronic kidney disease, hypertension, hyperlipidemia, peripheral vascular disease s/p arterial stent in left lower extremity, alcohol abuse, and medication noncompliance presents after being found non responsive at home. CT head showed no acute intracranial pathology Hypercalcemia -workup for suspected multiple myeloma \ This is my first consult with this pt. History Source: Medical Record Limitations to Obtaining History: Clinical Condition - Past Medical History Cardiovascular: Yes: AFIB, HTN, [place] - Past Surgical History Past Surgical History: Yes: Hernia Repair - Smoking History Smoking history: Former smoker Have you smoked in the past 12 months: No Aproximately how many cigarettes per day: 10 If you are a former smoker, when did you quit?: 04.06.16 - Alcohol/Substance Use Hx Alcohol Use: Yes History of Substance Use: reports: None History - Admission Reason For Visit: ACUTE KIDNEY INJURY/CELLULITIS/HYPOTHERMIA - Diagnostics X-ray: Report Reviewed CT Scan: Report Reviewed - General Mental Status: Confused (Phonating. Occasional unintelligible words. Poor eye contact. Eyes open but not visually tracking.), Flat Affect Attention: Profound Impairment Ability to Follow Directions: Poor - Hearing Hearing: Normal Hearing Aide: No With Patient: No Speech Evaluation - Communication Primary Language: [place] Communication: Yes: Non-Communicable Oral Expression Ability: Yes: Non-Verbal (vocal, occasional unintelligible words ) - Speech Production Able to Make Needs Known: Yes: Severely Impaired Intelligibility: Yes: Severely Impaired - Speech Characteristics Voice Loudness: Mildly Soft/Quiet Voice Pitch: Yes: Normal Voice Phonatory-based Quality: Yes: Normal Speech Pattern: Impaired Nasal Resonance: Normal - Language/Auditory Comprehension Observation: Able to respond to yes/no queries: No, Comprehends Conversational Speech: No - Language/Verbal Expression Able to Respond to Simple Queries: Yes: Severely Impaired Able to Communicate Wants and Needs: Yes: Severely Impaired Functional Communication Status: Yes: Severely Impaired - Swallow Evaluation/Bedside Assessment Current Nutritional Intake: NPO Oral Secretions: Yes: WFL Dentition: Yes: Adequate Facial Symmetry at Rest: Symmetrical Laryngeal Movement: Labored,delay initiation Labial Seal: Impaired Bilaterally Oral Prep Time: Increased A-P Transit: Impaired Timing of Swallow: Delayed Coughing/Throat Clear: No Change in Voice: No Recommendations - Speech Evaluation, Impression/Plan Impression: Eyes open, phonating, not visually tracking or establishing eye contact. Close lips around spoon with applesauce but no posterior transit of the bolus. Delayed swallow eliocited with sip of thin water without responsive cough. Presently at high risk of aspiration due to severe cognitive deficits, awake but unaware of environment around him. - Dysphagia Impressions/Plan Swallowing Skills: Impaired Dysphagia Impressions: Risk of Aspiration *Silent aspiration: cannot be R/O at bedside - Recommendations Diet Consistency: NPO, Other (NPO including medication, if possible. If neccessary, crush meds and give in small amount of nectar thick.) Liquids: NPO
[2018-02-07] MEDS ORDERED: FOLIC ACID INJECTION - 1 MG, THIAMINE HCL 100 MG, MULTIVIT INJECTION ADULT 10 ML in SOD... IVPB ONE (10:45)
[2018-02-07] MEDS: CARVEDILOL 6.25 MG TABLET (FP) PO SCH ×2 (11:36→21:43)
--- NOTE | 2018-02-07 11:39 | PN ---
Progress Note (short form) - Note Progress Note: ID Consult dictated Altered mental status ? secondary to hypercalcemia Ca++ 10.6 with albumin 1.3 R/O toxic metabolic encephalopathy Renal failure Lactic acidosis Await c/s Obtain flu swab Empiric ceftriaxone + stat dose vancomycin
[2018-02-07] MEDS ORDERED: PT OWN MED DRAWER 7, Y5N ONE (11:58)
--- NOTE | 2018-02-07 12:03 | EKG ---
Test Reason : Blood Pressure : / mmHG Vent. Rate : 124 BPM Atrial Rate : 089 BPM P-R Int : 000 ms QRS Dur : 148 ms QT Int : 390 ms P-R-T Axes : 000 254 068 degrees QTc Int : 560 ms ATRIAL FIBRILLATION WITH RAPID VENTRICULAR RESPONSE WITH PREMATURE VENTRICULAR OR ABERRANTLY CONDUCTED COMPLEXES RIGHT BUNDLE BRANCH BLOCK ABNORMAL ECG WHEN COMPARED WITH ECG OF 21-JAN-2018 19:04, VENT. RATE HAS INCREASED BY 44 BPM CRITERIA FOR SEPTAL INFARCT ARE NO LONGER PRESENT Confirmed by ESTEBAN IRWIN MD ([id number]) on 02/07/2018 12:02:48 PM Referred By: Confirmed By:ESTEBAN IRWIN MD
--- NOTE | 2018-02-07 12:16 | CONSULT ---
Consult - text type - Consultation Consultation Note: Renal Consult for MELITA This is a 77 year old gentleman with hx of CKD, Afib on A/C, CAD, CKD, Hypertension, Hyperlipidemia, PVD who presented with AMS/Confusion and found to have MELITA. Pt was brought into the ER by EMS after his neighbors became concerned about him. Pt is awake but lethargic. Making urine in diaper as per nurse. Denies any pain, sob, N/V/D or dysuria. CT head was negative. On Statin at home as per EMR records. No REYNOLD/ARB noted. Unknown if pt was using NSAIDs. No recent contrast exposure. PMHx: as above Allergies: NKDA Family Hx: NC Social Hx: no T/A/D ROS: as per HPI, limited by clinical status Home Medications Medication Instructions Recorded Atorvastatin Ca [Lipitor] 40 mg PO HS #30 tablet 10/19/17 Rivaroxaban [Xarelto -] 20 mg PO DAILY@1800 #30 tablet 10/19/17 Carvedilol [Coreg -] 6.25 mg PO BID #60 tablet 01/24/18 Vital Signs Temperature 96.5 F L 02/07/18 09:31 Pulse Rate 100 H 02/07/18 09:31 Respiratory Rate 20 02/07/18 09:31 Blood Pressure 118/64 02/07/18 09:31 O2 Sat by Pulse Oximetry (%) 94 L 02/07/18 00:15 Intake & Output 02/04/18 02/05/18 02/06/18 02/07/18 23:59 23:59 23:59 23:59 Intake Total 2250 2625 Output Total 300 Balance 1950 2625 Weight 72.575 kg 75.296 kg NAD lethargic but responsive to questions RRR, no M/R CTA, no rales or wheeze soft NT/ND, no bladder distension no LE edema, clubbing or cyanosis CBC, BMP 02/07/18 06:00 02/07/18 06:00 Laboratory Tests 02/06/18 02/07/18 02/07/18 18:00 00:55 06:00 Creatinine 2.8 H 3.0 H 3.0 H Current Medications Atorvastatin Calcium (Lipitor -) 40 mg PO HS [facility] Carvedilol (Coreg -) 6.25 mg PO BID [facility] Last Admin: 02/07/18 11:36 Dose: Not Given Chlordiazepoxide HCl (Librium -) 50 mg PO [id number] [facility] Stop: 02/07/18 23:01 Last Admin: 02/07/18 11:37 Dose: Not Given Chlordiazepoxide HCl (Librium -) 25 mg PO [id number] [facility] Stop: 02/08/18 23:01 Chlordiazepoxide HCl (Librium -) 15 mg PO [id number] [facility] Stop: 02/09/18 23:01 Chlordiazepoxide HCl (Librium -) 25 mg PO Q4H PRN PRN Reason: WITHDRAWAL(CONT SUBST) Stop: 02/10/18 02:24 Chlordiazepoxide HCl (Librium -) 10 mg PO [id number] [facility] Stop: 02/10/18 23:01 Folic Acid (Folic Acid -) 1 mg PO DAILY [facility] Last Admin: 02/07/18 11:36 Dose: Not Given Sodium Chloride (Normal Saline -) 1,000 mls @ 125 mls/hr IV ASDIR [facility] Last Admin: 02/07/18 01:14 Dose: 125 mls/hr Folic Acid 1 mg/ Thiamine HCl 100 mg/ Multivitamins/Minerals 10 ml/ Sodium Chloride 1,000 mls @ 125 mls/hr IVPB ONCE ONE Stop: 02/07/18 18:44 Ceftriaxone Sodium 1 gm/ (Dextrose) 50 mls @ 100 mls/hr IVPB DAILY [facility]; Protocol Vancomycin HCl (Vancomycin (Pre-Docked)) 1,000 mg in 250 mls @ 166.667 mls/hr IVPB Q24H [facility]; Protocol Rivaroxaban (Xarelto -) 15 mg PO DAILY@1800 [facility] Thiamine HCl (Vitamin B1 -) 100 mg PO DAILY [facility] Last Admin: 02/07/18 11:36 Dose: Not Given 77 year old gentleman with hx of CKD, Afib on A/C, CAD, CKD, Hypertension, Hyperlipidemia, PVD who presented with AMS/Confusion and found to have MELITA. #MELITA r/o pigment injury vs. obstruction vs. ATN #AMS of unclear etiology #? hx of ETOH abuse #Anemia #Hypercalcemia Check Urine studies for FeNa, UPCR Check Kidney and Bladder US to r/o obstruction Check CPK levels to r/o rhabodmyolysis Corrected Ca a 12.7, continue IVF, check PTH levels Check iron stuides and trend cbc, no acute need for transfusion at this time Check Methanol levels, ethylene gylcol levels, LDH, Haptoglobin continue supportive care no acute need for ASSISTANT SUPERINTENDENT FOR CURRICULUM Trend renal function and electrolytes dose all meds for CrCl < 15 Thank you Will follow Mack Miller DO
[2018-02-07] MEDS ORDERED: DEXTROSE 5%-WATER - 50 ML IVPB ONE (12:27)
[2018-02-07] MEDS ORDERED: cefTRIAXone SODIUM 1 GM VIAL ONE (12:27)
[2018-02-07] MEDS: CEFTRIAXONE 1 GM in DEXTROSE 5%-WATER - 50 ML IVPB SCH (12:35)
--- NOTE | 2018-02-07 13:03 | CONS ---
DATE OF CONSULTATION: 02/07/2018 HISTORY OF PRESENT ILLNESS: The patient is a 77-year-old male evaluated for possible sepsis. He was recently admitted to [facility] where he was undergoing evaluation for possible multiple myeloma. At that time, he was found to have hypercalcemia. He was now admitted to the hospital on February 06, 2018, after being found at home confused. EMS was called as neighbors noted that he had a large amount of mail accumulating at his residence. They found him at home in bed, confused. He was brought to the emergency room where he was noted to be hypothermic, tachycardic, and in acute renal failure. He was also noted to have a serum calcium at 10.6 with an albumin of 1.3. Concern was raised over the possibility of possible sepsis in light of altered mental status, hypothermia, and leukopenia. At the present time, he is awake, but he is confused. He offers no complaints. No reports of shaking chills, labored breathing, cough, sputum production, vomiting, diarrhea, or grossly purulent urine. PAST MEDICAL HISTORY: Atrial fibrillation, coronary artery disease, hyperlipidemia, hypertension, peripheral vascular disease, possible multiple myeloma. PAST SURGICAL HISTORY: Status post left lower extremity stent. ALLERGIES: To VALSARTAN. MEDICATIONS: Include Lipitor, Coreg, Xarelto. SOCIAL HISTORY: He resides at home, is a former smoker. SYSTEMS REVIEW: Neurologic: Positive for altered mental status. Cardiac: Positive for atrial fibrillation. No chest pain or palpitations. Respiratory: Negative for labored breathing or cough. Gastrointestinal: Negative for vomiting or diarrhea. Genitourinary: Positive for renal failure. LABORATORY DATA: White count 3.4, 59% neutrophils, 35% lymphocytes, 4% monocytes, hematocrit 26.7, platelet count 219. BUN 65, creatinine 3.0, lactic acid 2.4. Blood and urine cultures are pending. Urinalysis less than 1 white cell. Chest x-ray negative for acute infiltrate. PHYSICAL EXAMINATION: General: He is awake, but he is confused, supine in bed. Vital signs: Temperature 96.5, blood pressure 118/64, pulse 100 and regular, respirations 20 per minute. HEENT: Sclerae anicteric. Heart: Heart sounds S1, S2. Lungs: Grossly clear. Poor inspiratory effort. Abdomen: Soft. No tenderness elicited. No mass, rebound, or rigidity. Extremities: 1+ edema. There is hyperemia of the distal right lower extremity. However, it is not warm or tender to touch. IMPRESSION: 1. Altered mental status, possible secondary to hypercalcemia. 2. Rule out toxic metabolic encephalopathy. 3. Renal failure. 4. Lactic acidosis. PLAN: Will obtain influenza swab in light of leukopenia to rule out influenza, obtain blood cultures, empiric antibiotic coverage in this patient with renal failure with ceftriaxone and stat dose vancomycin, would treat hypercalcemia as corrected value likely much higher than the reported value of 10.6, await culture results. Will follow. Thank you for the kind referral. ORVILLE BONDS M.D. MACIEJ/[id number]
[2018-02-07 13:38] LABS: LDH 325 U/L (87-246)
--- NOTE | 2018-02-07 14:26 | CON.NEURO ---
Consult Consult Specialty:: NEUROLOGY-DEVEN [facility]BB Reason for Consultation:: Altered Mental Status - History of Present Illness History of Present Illness: his is a 77 y/o man with a PMHx of Persistent Afib [id number] with recurrent peripheral arterial embolism due to previous noncompliance with Xarelto due to lack of social support, Diabetes Mellitus, Apical Hypertrophic Cardiomyopathy, Alcohol Abuse, nonobstructive CAD h/o anaphylaxis after eating [place] Food- shrimp and boneless spare ribs, suspected myeloma (due to paraproteinemia and M spike, SPEP/UPEP results not yet found), recent admission for vasovagal near syncope and MELITA presented with altered mental status after being found down at his home by EMS after his neighbor found mail piling up, etc. He was brought to the ER and was arousable and following commands but not answering questions appropriately and is altered and cannot provide any acurate history; I am told he was still wearing his wristband from his last discharge. He was found to be hypothermic and tachycardic with a marked hypercalcemia and MELIAT. This is similar to his prior presentation when he was found to be hypercalcemic ( discharged with Ca of 11 corrected) and hypothermic. ER was concerned for possible cellulitis given the findings on his lower extremity (R) with redness and covered him broadly, recieved fluids. Cannot provide history, responds better today than yesterday, he turns head towards examiner, follows simple commands. - Past Medical History Cardio/Vascular: Yes: AFIB, HTN, AL - Past Surgical History Past Surgical History: Yes: Hernia Repair - Alcohol/Substance Use Hx Alcohol Use: Yes History of Substance Use: reports: None - Smoking History Smoking history: Former smoker Have you smoked in the past 12 months: No Aproximately how many cigarettes per day: 10 If you are a former smoker, when did you quit?: 04.06.16 Home Medications - Allergies Allergies/Adverse Reactions: Allergies Allergy/AdvReac Type Severity Reaction Status Date / Time valsartan Allergy Severe Verified 02/06/18 16:47 - Home Medications Home Medications: Ambulatory Orders Atorvastatin Ca [Lipitor] 40 mg PO HS #30 tablet 10/19/17 Rivaroxaban [Xarelto -] 20 mg PO DAILY@1800 #30 tablet 10/19/17 Carvedilol [Coreg -] 6.25 mg PO BID #60 tablet 01/24/18 Physical Exam-Neuro Vital Signs: Vital Signs Temperature 96.5 F L 02/07/18 09:31 Pulse Rate 100 H 02/07/18 09:31 Respiratory Rate 20 02/07/18 09:31 Blood Pressure 118/64 02/07/18 09:31 O2 Sat by Pulse Oximetry (%) 94 L 02/07/18 09:00 Labs: CBC, BMP 02/07/18 06:00 02/07/18 06:00 INR, PTT INR 1.33 (0.83-1.09) H 02/06/18 17:02 - Neuro Exam Level Of Consciousness: Yes: Stuporous (Opens eyes to loud voice, turns head towards examiner, follows 1 step commands) Eyes: Yes: PERRL Speech: Garbled Mini Mental Exam: Stuporous DTR's: 1+ Left Bicep, 1+ Right Bicep, 1+ Left Tricep, 1+ Right Tricep, 1+ Left Brachioradialis, 1+ Right Brachioradialis Babinski: Absent Response to light touch: Normal (Withdraws both arms more than legs to pain, unable to test brest of sensory modalities) Motor Strength: 1/5: Left Leg, Right Leg, 5/5: Left Arm, Right Arm Gait: Deferred Imaging - Results Cat Scan: Report Reviewed (Without acute abn.) Assessment/Plan This is a 77 year old gentleman with hx of CKD, Afib on A/C, CAD, CKD, Hypertension, Hyperlipidemia, PVD who presented with AMS/Confusion and found to have MELITA. Pt was brought into the ER by EMS after his neighbors became concerned about him. Pt is awake but lethargic, follows c1 step commands, he has 1/5 strength in both legs. He appears to be encephalopathic due to metabolic abn. ?infection.Pt. is moving arms well but legs are weak, likely due to gen. weakness/encephalopathic state but if weakness persists with improved metabolic state need to consider bilat frontal lobe ischemia. Will follow patient and will repeat CT head tomorroiw if not improved. Thank you, Ladi Kuo MD
--- NOTE | 2018-02-07 14:42 | PN ---
Progress Note (short form) - Note Progress Note: surgery 77yo male well known to the vascular surgery team with pmhx of CKD, Afib on A/C , CAD, CKD, Hypertension, Hyperlipidemia, recurrent peripheral arterial embolism due to previous noncompliance with Xarelto with previous history of b/ l LE angioplasty/thrombectomy/thrombolysis with stent Left LE 08/2017, Diabetes Mellitus, Apical Hypertrophic Cardiomyopathy, Alcohol Abuse who presented with AMS/Confusion and found to have MELITA. Patient rousble but does not respond to questions. Vital Signs Temp 96.5 F L 02/07/18 09:31 Pulse 100 H 02/07/18 09:31 Resp 20 02/07/18 09:31 BP 118/64 02/07/18 09:31 Pulse Ox 94 L 02/07/18 09:00 Intake & Output 02/06/18 02/07/18 02/07/18 23:59 11:59 23:59 Intake Total 2250 2625 Output Total 300 Balance 1950 2625 Weight 160 lb 166 lb Intake: IV 2000 2625 Normal Saline - 1,000 ml 1000 @ 1000 mls/hr IV ASDIR STA Rx#:[id number] Normal Saline - 1,000 ml 1000 @ 1000 mls/hr IV ASDIR [facility] Rx#:[id number] Normal Saline - 250 ml @ 2625 250 mls/hr IV ASDIR [facility] Rx#:[id number] IVPB 250 Output: Urine 300 Straight Cath 300 Other: Voiding Method Diaper # Unmeasured Voids Void 2 Bowel Movement No Height 5 ft 1 in 6 ft Body Mass Index (BMI) 30.2 22.5 Weight Measurement Method Patient Lift Scale Weight Measurement Method Estimated by Staff CBC, BMP 02/07/18 06:00 02/07/18 06:00 B/L LE arterial Dopplers revealed interval development of prominently dimished flow of the right superficial femoral, popliteal and posterior tibial artery. PE: Patient rousable but does not respond to questions. Unlabored resp on RA Right LE with palpable popliteal pulse, mild erythema/ early cellulitis over ankle and foot. No lesions or evidence of skin breakdown. Leg and foot warm to touch with dopplerable PT at bedside. COmpartments soft, supple and tender to palpation throughout Left LE warm to touch, compartments soft, supple and tender to palpation throughout. Dopplerable DP and PT pulse (Afib noted) Problem List - Problems (1) Peripheral arterial disease Assessment/Plan: 77 yo with PAD in the setting of multiple co-morbidities and non-compliance with dopplerable pulses, no evidence for vascular intervention at this time. 1) Continue Anticoagulation with Xarelto as ordered 2) OOB as tolerated 3) F/U AMS work up 4) Vascular to follow Evaluation and plan discussed with Dr Rico. Code(s): I73.9 - PERIPHERAL VASCULAR DISEASE, UNSPECIFIED
[2018-02-07] MEDS ORDERED: RIVAROXABAN 15 MG TABLET PO SCH (18:00)
[2018-02-07] MEDS: VANCOMYCIN 1 GRAM (PRE-DOCKED) 1,000 MG/250 ML BAG IVPB SCH (21:43)
[2018-02-07] MEDS ORDERED: ATORVASTATIN CA 40 MG TABLET (FP) PO SCH (22:00)
[2018-02-08] MEDS: SODIUM CHLORIDE 1,000 ML IV SCH (00:01)
[2018-02-08] MEDS: chlordiazePOXIDE HCL 25 MG CAPSULE PO SCH (00:05)
[2018-02-08] MEDS ORDERED: chlordiazePOXIDE HCL 25 MG CAPSULE PO SCH (05:00)
--- NOTE | 2018-02-08 05:42 | PN ---
Progress Note (short form) - Note Progress Note: PATIENT FAILED SWALLOW EVAL REPEAT TEST WHEN MORE ALERT CHANGING MEDS TO IV Problem List - Problems (1) MELITA (acute kidney injury) Code(s): N17.9 - ACUTE KIDNEY FAILURE, UNSPECIFIED (2) Atrial fibrillation with RVR Code(s): I48.91 - UNSPECIFIED ATRIAL FIBRILLATION (3) Hyperlipidemia Code(s): E78.5 - HYPERLIPIDEMIA, UNSPECIFIED Qualifiers: Hyperlipidemia type: pure hypercholesterolemia Qualified Code(s): E78.00 - Pure hypercholesterolemia, unspecified; E78.0 - Pure hypercholesterolemia (4) Hypothermia Code(s): T68.XXXA - HYPOTHERMIA, INITIAL ENCOUNTER Qualifiers: Encounter type: initial encounter Qualified Code(s): T68.XXXA - Hypothermia , initial encounter (5) Iydra-df-ydvwuau kidney injury Code(s): N17.9 - ACUTE KIDNEY FAILURE, UNSPECIFIED; N18.9 - CHRONIC KIDNEY DISEASE, UNSPECIFIED Qualifiers: Acute renal failure type: unspecified Chronic kidney disease stage: unspecified stage Qualified Code(s): N17.9 - Acute kidney failure, unspecified ; N18.9 - Chronic kidney disease, unspecified (6) Generalized weakness Code(s): R53.1 - WEAKNESS (7) History of ETOH abuse Code(s): Z87.898 - PERSONAL HISTORY OF OTHER SPECIFIED CONDITIONS (8) Hypercalcemia Code(s): E83.52 - HYPERCALCEMIA (9) Hypertrophic cardiomyopathy Code(s): I42.2 - OTHER HYPERTROPHIC CARDIOMYOPATHY (10) Toxic metabolic encephalopathy Code(s): G92 - TOXIC ENCEPHALOPATHY (11) Sepsis Code(s): A41.9 - SEPSIS, UNSPECIFIED ORGANISM
[2018-02-08] MEDS ORDERED: HEPARIN NA (PORCINE) 5,000 UNITS/ML 1ML VIAL IVPUSH PRN ×2 (05:44)
[2018-02-08] MEDS ORDERED: ACETAMINOPHEN 650 MG SUPP.RECT PR PRN (05:44)
[2018-02-08 06:45] LABS: HEMATOCRIT 25.5 % (35.4-49); HEMOGLOBIN 8.3 GM/dL (11.7-16.9); MCH 29.4 pg (25.7-33.7); MCHC 32.4 g/dl (32.0-35.9); MEAN CELL VOLUME 90.7 fl (80-96); MEAN PLT VOLUME 8.7 fl (7.5-11.1); PLATELET COUNT 199 K/MM3 (134-434); RBC 2.81 M/mm3 (4.00-5.60); RDW 16.2 % (11.9-15.9); WHITE BLOOD COUNT 3.3 K/mm3 (4.0-10.0)
[2018-02-08] MEDS: HEPARIN INFUSION - 25,000 UNITS/500 ML INFUS.BAG IVPB SCH (07:04)
[2018-02-08] MEDS: METOPROLOL TARTRATE 5 MG/5 ML VIAL IVPUSH SCH ×3 (07:11→22:07)
--- NOTE | 2018-02-08 08:09 | PN ---
Progress Note (short form) - Note Progress Note: Vascular Surgery: PT with altered mental status. Vital Signs Period Temp Pulse Resp BP Sys/Ariza Pulse Ox Last 24 Hr 96.5 F-97.6 F 85-104 18-20 100-119/54-65 94-94 GEN: Arousable and responds to pain Lower ext: bilateral DP pulses and feet warm. CBC, BMP 02/08/18 06:00 02/07/18 06:00 A/p: 77 yo male admitted with AMS with a history of PVD No evidence of acute ischemia, pt placed on IV heparin because he isn't able to eat because of his altered mental status. Follow PTT as per protocol for IV heparin
--- NOTE | 2018-02-08 09:44 | PN ---
Progress Note, Physician History of Present Illness: Sensorium still altered, oral intake held, switched to IV meds. - Current Medication List Current Medications: Active Medications Acetaminophen (Tylenol Suppository -) 650 mg [place] Q6H PRN PRN Reason: FEVER Atorvastatin Calcium (Lipitor -) 40 mg PO HS [facility] Last Admin: 02/07/18 21:44 Dose: Not Given Heparin Sodium (Porcine) (Heparin -) 1,000 unit IVPUSH PRN PRN PRN Reason: Heparin Heparin Sodium (Porcine) (Heparin -) 5,000 unit IVPUSH PRN PRN PRN Reason: Heparin Sodium Chloride (Normal Saline -) 1,000 mls @ 125 mls/hr IV ASDIR [facility] Last Admin: 02/08/18 00:01 Dose: 125 mls/hr Ceftriaxone Sodium 1 gm/ (Dextrose) 50 mls @ 100 mls/hr IVPB DAILY [facility]; Protocol Last Admin: 02/07/18 12:35 Dose: 100 mls/hr Vancomycin HCl (Vancomycin (Pre-Docked)) 1,000 mg in 250 mls @ 166.667 mls/hr IVPB Q24H [facility]; Protocol Last Admin: 02/07/18 21:43 Dose: 166.667 mls/hr Heparin Sodium/Dextrose (Heparin Infusion -) 25,000 units in 500 mls @ 16 mls/ hr IVPB TITR [facility]; Protocol Last Admin: 02/08/18 07:04 Dose: 800 unit/hr, 16 mls/hr Metoprolol Tartrate (Lopressor Injection -) 5 mg IVPUSH Q8H [facility] Last Admin: 02/08/18 07:11 Dose: 5 mg Thiamine HCl (Vitamin B1 -) 100 mg PO DAILY [facility] Last Admin: 02/07/18 11:36 Dose: Not Given - Objective Vital Signs: Vital Signs Temperature 97.8 F 02/08/18 08:45 Pulse Rate 94 H 02/08/18 08:45 Respiratory Rate 20 02/08/18 08:45 Blood Pressure 112/53 L 02/08/18 08:45 O2 Sat by Pulse Oximetry (%) 94 L 02/07/18 21:00 Constitutional: Yes: No Distress, Calm, Thin Neck: Yes: Supple Cardiovascular: Yes: Pulse Irregular, Murmur (2/6 SM) Respiratory: Yes: Regular, Diminished, On Nasal O2 Gastrointestinal: Yes: Soft, Hypoactive Bowel Sounds Edema: No Labs: CBC, BMP 02/08/18 06:00 INR, PTT INR 1.33 (0.83-1.09) H 02/06/18 17:02 - ....Imaging Ultrasound: Report Reviewed (No hydro) EKG: Report Reviewed (Tele: Maria Luz rosales KINDRA) Problem List - Problems (1) Atrial fibrillation with RVR Code(s): I48.91 - UNSPECIFIED ATRIAL FIBRILLATION (2) Hixsu-aa-[id number] kidney injury Code(s): N17.9 - ACUTE KIDNEY FAILURE, UNSPECIFIED; N18.9 - CHRONIC KIDNEY DISEASE, UNSPECIFIED Qualifiers: Acute renal failure type: unspecified Chronic kidney disease stage: unspecified stage Qualified Code(s): N17.9 - Acute kidney failure, unspecified ; N18.9 - Chronic kidney disease, unspecified (3) Demand ischemia Code(s): I24.8 - OTHER FORMS OF ACUTE ISCHEMIC HEART DISEASE (4) Hypercalcemia Code(s): E83.52 - HYPERCALCEMIA (5) Nonadherence to medication Code(s): Z91.14 - PATIENT'S OTHER NONCOMPLIANCE WITH MEDICATION REGIMEN (6) Paraproteinemia Code(s): D89.2 - HYPERGAMMAGLOBULINEMIA, UNSPECIFIED (7) Anticoagulant long-term use Code(s): Z79.01 - MARINE ENGINE MECHANIC (CURRENT) USE OF ANTICOAGULANTS (8) Chronic thromboembolic disease Code(s): I74.9 - EMBOLISM AND THROMBOSIS OF UNSPECIFIED ARTERY (9) Coronary artery disease Code(s): I25.10 - ATHSCL HEART DISEASE OF [place] CORONARY ARTERY W/O ANG PCTRS Qualifiers: Coronary Disease-Associated Artery/Lesion type: [place] artery [place] vs. transplanted heart: [place] heart Associated angina: without angina Qualified Code(s): I25.10 - Atherosclerotic heart disease of [place] coronary artery without angina pectoris (10) Diastolic dysfunction without heart failure Code(s): I51.9 - HEART DISEASE, UNSPECIFIED (11) HTN (hypertension) Code(s): I10 - ESSENTIAL (PRIMARY) HYPERTENSION Qualifiers: Hypertension type: essential hypertension Qualified Code(s): I10 - Essential (primary) hypertension (12) Hypertrophic cardiomyopathy Code(s): I42.2 - OTHER HYPERTROPHIC CARDIOMYOPATHY (13) Hyperlipidemia Code(s): E78.5 - HYPERLIPIDEMIA, UNSPECIFIED Qualifiers: Hyperlipidemia type: pure hypercholesterolemia Qualified Code(s): E78.00 - Pure hypercholesterolemia, unspecified; E78.0 - Pure hypercholesterolemia Assessment/Plan R&LHc at [facility] 04/20/2016 showing nonobstructive CAD, severe LV apical hypertrophic cardiomyopathy, mildly elevated right sided pressures, Mynx deployed right RUG WEAVER access site. 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 Echocardiogram: 10/18/2017 Mod cLVH, severe PURVI, mod TR RVSP 50-60 mmHg, mod- severe MR Echocardiogram: 01/23/2018 Normal LV size with hyperdynamic LVEF 75%, mild BSH, normal RV size and fxn, severe LAE, mod-severe MR, mod TR 1. Toxic metabolic encephelopathy, r/o CVA while off NOAC, r/o sepsis 2. Acute on CKD (pre-renal) 3. Hypercalcemia, paraproteinemia-> possible multiple myeloma 3. History of bilateral SFA occlusion post thrombectomy, referable to embolic disease related to persistent atrial fibrillation with [id number] score of 6, history of poor compliance with anticoagulation and medical F/U 4. Non obstructive CAD on R&LHc coronary angiography with demand ischemia 5. LV diastolic dysfunction related to apical hypertrophic cardiomyopathy, subendocardial ischemia, compensated/euvolemic 6. Persistent atrial fibrillation [id number] score of 6 on Xarelto 20 qd 7. Labile HTN 8. Poor compliance with medical therapy administration and medical F/U 9. Tobacco abuse 10. ETOH dependence PLAN: 1. Heparin gtt for now while off Xarelto 15 qd (renal dosing) 2. IV Lopressor as hemodynamics tolerate 3. Hematology input, SPEP, UPEP pending 4. Judicious IVF with monitor renal recovery, renal input appreciated, check PTH , ruled out obstructive uropathy 5. Empiric abx course pending C&S
[2018-02-08] MEDS: THIAMINE HCL 100 MG TABLET (FP) PO SCH (09:46)
[2018-02-08] MEDS ORDERED: cefTRIAXone SODIUM 1 GM VIAL ONE (09:47)
[2018-02-08] MEDS ORDERED: PT OWN MED DRAWER 7, Y5N ONE (09:47)
[2018-02-08] MEDS ORDERED: DEXTROSE 5%-WATER - 50 ML IVPB ONE (09:47)
[2018-02-08] MEDS: CEFTRIAXONE 1 GM in DEXTROSE 5%-WATER - 50 ML IVPB SCH (09:51)
[2018-02-08 09:55] LABS: ALBUMIN 1.2 g/dl (3.4-5.0); ALK PHOS 46 U/L (45-117); ANION GAP 8 MMOL/L (8-16); BILIRUBIN,TOTAL 0.4 mg/dL (0.2-1); BLOOD UREA NITROGEN 60 mg/dL (7-18); CALCIUM 10.3 mg/dL (8.5-10.1); CHLORIDE 120 mmol/L (98-107); CO2 19 mmol/L (21-32); CREATININE 2.8 mg/dL (0.55-1.3); GLUCOSE,RANDOM 64 mg/dL (74-106); POTASSIUM 4.2 mmol/L (3.5-5.1); SGOT/AST 64 U/L (15-37); SGPT/ALT 14 U/L (13-61); SODIUM 147 mmol/L (136-145); TOT PROT 10.7 g/dl (6.4-8.2)
--- NOTE | 2018-02-08 12:42 | PN ---
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 Pt is lethargic but responds to his name with slight improved sensorium. Stil not establishing eye contact/visually tracking. Vision? Attempted to respond to questions a little more today eg NO but limited and repeatedly falls back to sleep. Swallow reassessed with poor bilabial closure or oral transit. However, swallow was brisk with sip of water. My concern is risk of aspiration due to impaired mental status. Defer PO for now. Consider Clinimix if not medically contraindicated?
--- NOTE | 2018-02-08 13:17 | PN ---
Progress Note, Physician Chief Complaint: The patient seen in the bed. Quite lethargic and confused. IV fluids infusing. History of Present Illness: This is a 77 year old gentleman with hx of CKD, Afib on A/C, CAD, CKD, Hypertension, Hyperlipidemia, PVD who presented with AMS/Confusion and found to have MELITA. The patient was seen to have hypercalcemia. Etiology to be determined. Urine output not measured. - Current Medication List Current Medications: Active Medications Acetaminophen (Tylenol Suppository -) 650 mg [place] Q6H PRN PRN Reason: FEVER Atorvastatin Calcium (Lipitor -) 40 mg PO HS [facility] Last Admin: 02/07/18 21:44 Dose: Not Given Heparin Sodium (Porcine) (Heparin -) 1,000 unit IVPUSH PRN PRN PRN Reason: Heparin Heparin Sodium (Porcine) (Heparin -) 5,000 unit IVPUSH PRN PRN PRN Reason: Heparin Sodium Chloride (Normal Saline -) 1,000 mls @ 125 mls/hr IV ASDIR [facility] Last Admin: 02/08/18 00:01 Dose: 125 mls/hr Ceftriaxone Sodium 1 gm/ (Dextrose) 50 mls @ 100 mls/hr IVPB DAILY [facility]; Protocol Last Admin: 02/08/18 09:51 Dose: 100 mls/hr Vancomycin HCl (Vancomycin (Pre-Docked)) 1,000 mg in 250 mls @ 166.667 mls/hr IVPB Q24H [facility]; Protocol Last Admin: 02/07/18 21:43 Dose: 166.667 mls/hr Heparin Sodium/Dextrose (Heparin Infusion -) 25,000 units in 500 mls @ 16 mls/ hr IVPB TITR [facility]; Protocol Last Admin: 02/08/18 07:04 Dose: 800 unit/hr, 16 mls/hr Metoprolol Tartrate (Lopressor Injection -) 5 mg IVPUSH Q8H [facility] Last Admin: 02/08/18 07:11 Dose: 5 mg Thiamine HCl (Vitamin B1 -) 100 mg PO DAILY [facility] Last Admin: 02/08/18 09:46 Dose: Not Given - Objective Vital Signs: Vital Signs Temperature 97.8 F 02/08/18 08:45 Pulse Rate 94 H 02/08/18 08:45 Respiratory Rate 20 02/08/18 08:45 Blood Pressure 112/53 L 02/08/18 08:45 O2 Sat by Pulse Oximetry (%) 94 L 02/07/18 21:00 Constitutional: Yes: No Distress, Pallor Eyes: Yes: Conjunctiva Clear HENT: Yes: Atraumatic Neck: Yes: Trachea Midline Cardiovascular: Yes: S1, S2 Respiratory: Yes: Diminished, Poor Air Entry Gastrointestinal: Yes: Soft Edema: No Neurological: Yes: Confusion, Lethargy Labs: CBC, BMP 02/08/18 06:00 02/08/18 06:00 INR, PTT INR 1.33 (0.83-1.09) H 02/06/18 17:02 Assessment/Plan This is a 77 year old gentleman with hx of CKD, Afib on A/C, CAD, CKD, Hypertension, Hyperlipidemia, PVD who presented with AMS/Confusion and found to have MELITA. The patient has Hypercalcemia, Hypoalbuminemia, and Anemia. A triad of these findings should alert one to rule out paraproteinemia. Malignant Hypercalcemia needs to be ruled out. ? heme / Onc eval. Tendency for Hypernatremia. Will start on IV 1/2 NS infusion. Will monitor the renal/ electrolyte profile. Thank you. Juliann New MD
[2018-02-08] MEDS: DEXTROSE 5%-0.45% SALINE 1,000 ML IV SCH (14:36)
--- NOTE | 2018-02-08 16:18 | PN ---
Progress Note, Physician Chief Complaint: confusion History of Present Illness: 77 y/o man with a PMHx of Persistent Afib [id number] with recurrent peripheral arterial embolism due to previous noncompliance with Xarelto due to lack of social support, Diabetes Mellitus, Apical Hypertrophic Cardiomyopathy, Alcohol Abuse, nonobstructive CAD h/o anaphylaxis after eating [place] Food- shrimp and boneless spare ribs, suspected myeloma (due to paraproteinemia and M spike, SPEP/UPEP results not yet found), recent admission for vasovagal near syncope and MELITA presented with altered mental status after being found down at his home by EMS after his neighbor found mail piling up, etc. He was brought to the ER and was arousable and following commands but not answering questions appropriately and is altered and cannot provide any acurate history; I am told he was still wearing his wristband from his last discharge. He was found to be hypothermic and tachycardic with a marked hypercalcemia and MELITA. This is similar to his prior presentation when he was found to be hypercalcemic ( discharged with Ca of 11 corrected) and hypothermic. His Ca is even more off this time. - Current Medication List Current Medications: Active Medications Acetaminophen (Tylenol Suppository -) 650 mg [place] Q6H PRN PRN Reason: FEVER Atorvastatin Calcium (Lipitor -) 40 mg PO HS [facility] Last Admin: 02/07/18 21:44 Dose: Not Given Heparin Sodium (Porcine) (Heparin -) 1,000 unit IVPUSH PRN PRN PRN Reason: Heparin Heparin Sodium (Porcine) (Heparin -) 5,000 unit IVPUSH PRN PRN PRN Reason: Heparin Last Admin: 02/08/18 15:15 Dose: 5,000 unit Ceftriaxone Sodium 1 gm/ (Dextrose) 50 mls @ 100 mls/hr IVPB DAILY [facility]; Protocol Last Admin: 02/08/18 09:51 Dose: 100 mls/hr Vancomycin HCl (Vancomycin (Pre-Docked)) 1,000 mg in 250 mls @ 166.667 mls/hr IVPB Q24H [facility]; Protocol Last Admin: 02/07/18 21:43 Dose: 166.667 mls/hr Heparin Sodium/Dextrose (Heparin Infusion -) 25,000 units in 500 mls @ 16 mls/ hr IVPB TITR [facility]; Protocol Last Titration: 02/08/18 15:16 Dose: 950 unit/hr, 19 mls/hr Dextrose/Sodium Chloride (D5-1/2ns -) 1,000 mls @ 125 mls/hr IV ASDIR [facility] Last Admin: 02/08/18 14:36 Dose: 125 mls/hr Metoprolol Tartrate (Lopressor Injection -) 5 mg IVPUSH Q8H [facility] Last Admin: 02/08/18 14:37 Dose: 5 mg Thiamine HCl (Vitamin B1 -) 100 mg PO DAILY [facility] Last Admin: 02/08/18 09:46 Dose: Not Given - Objective Vital Signs: Vital Signs Temperature 96.8 F L 02/08/18 14:34 Pulse Rate 95 H 02/08/18 14:37 Respiratory Rate 20 02/08/18 14:34 Blood Pressure 111/55 L 02/08/18 14:37 O2 Sat by Pulse Oximetry (%) 94 L 02/07/18 21:00 Neurological: Yes: Other (Lying in bed, eyes closed but will open to vigorous stimulation though difficult to maintain arousal. he me appears symmetric in his face. Moves limbs symmetrically though doesn't follow commands consistently.) Labs: CBC, BMP 02/08/18 06:00 02/08/18 06:00 INR, PTT INR 1.33 (0.83-1.09) H 02/06/18 17:02 Problem List - Problems (1) MELITA (acute kidney injury) Code(s): N17.9 - ACUTE KIDNEY FAILURE, UNSPECIFIED (2) Atrial fibrillation with RVR Code(s): I48.91 - UNSPECIFIED ATRIAL FIBRILLATION (3) Cellulitis Code(s): L03.90 - CELLULITIS, UNSPECIFIED Qualifiers: Site of cellulitis: extremity Site of cellulitis of extremity: lower extremity Laterality: right Qualified Code(s): L03.115 - Cellulitis of right lower limb (4) Hyperlipidemia Code(s): E78.5 - HYPERLIPIDEMIA, UNSPECIFIED Qualifiers: Hyperlipidemia type: pure hypercholesterolemia Qualified Code(s): E78.00 - Pure hypercholesterolemia, unspecified; E78.0 - Pure hypercholesterolemia (5) Hypothermia Code(s): T68.XXXA - HYPOTHERMIA, INITIAL ENCOUNTER Qualifiers: Encounter type: initial encounter Qualified Code(s): T68.XXXA - Hypothermia , initial encounter (6) Sepsis Code(s): A41.9 - SEPSIS, UNSPECIFIED ORGANISM (7) Toxic metabolic encephalopathy Code(s): G92 - TOXIC ENCEPHALOPATHY (8) Nojje-ab-ekudubx kidney injury Code(s): N17.9 - ACUTE KIDNEY FAILURE, UNSPECIFIED; N18.9 - CHRONIC KIDNEY DISEASE, UNSPECIFIED Qualifiers: Acute renal failure type: unspecified Chronic kidney disease stage: unspecified stage Qualified Code(s): N17.9 - Acute kidney failure, unspecified ; N18.9 - Chronic kidney disease, unspecified Assessment/Plan This still looks like metabolic encephalopathy much more than structural. As calcium corrects, will watch for improvement and if none seen consider repeat imaging.
[2018-02-08 16:31] LABS: METHANOL, BLOOD Negative % (0.000-0.010)
--- NOTE | 2018-02-08 16:38 | PN ---
Progress Note, Physician History of Present Illness: Lethargic Poorly responsive Afebrile Leukopenic Blood c/s prelim no growth Flu swab negative - Current Medication List Current Medications: Active Medications Acetaminophen (Tylenol Suppository -) 650 mg RI Q6H PRN PRN Reason: FEVER Atorvastatin Calcium (Lipitor -) 40 mg PO HS [facility] Last Admin: 02/07/18 21:44 Dose: Not Given Heparin Sodium (Porcine) (Heparin -) 1,000 unit IVPUSH PRN PRN PRN Reason: Heparin Heparin Sodium (Porcine) (Heparin -) 5,000 unit IVPUSH PRN PRN PRN Reason: Heparin Last Admin: 02/08/18 15:15 Dose: 5,000 unit Ceftriaxone Sodium 1 gm/ (Dextrose) 50 mls @ 100 mls/hr IVPB DAILY [facility]; Protocol Last Admin: 02/08/18 09:51 Dose: 100 mls/hr Vancomycin HCl (Vancomycin (Pre-Docked)) 1,000 mg in 250 mls @ 166.667 mls/hr IVPB Q24H [facility]; Protocol Last Admin: 02/07/18 21:43 Dose: 166.667 mls/hr Heparin Sodium/Dextrose (Heparin Infusion -) 25,000 units in 500 mls @ 16 mls/ hr IVPB TITR [facility]; Protocol Last Titration: 02/08/18 15:16 Dose: 950 unit/hr, 19 mls/hr Dextrose/Sodium Chloride (D5-1/2ns -) 1,000 mls @ 125 mls/hr IV ASDIR [facility] Last Admin: 02/08/18 14:36 Dose: 125 mls/hr Metoprolol Tartrate (Lopressor Injection -) 5 mg IVPUSH Q8H [facility] Last Admin: 02/08/18 14:37 Dose: 5 mg Thiamine HCl (Vitamin B1 -) 100 mg PO DAILY [facility] Last Admin: 02/08/18 09:46 Dose: Not Given - Objective Vital Signs: Vital Signs Temperature 96.8 F L 02/08/18 14:34 Pulse Rate 95 H 02/08/18 14:37 Respiratory Rate 20 02/08/18 14:34 Blood Pressure 111/55 L 02/08/18 14:37 O2 Sat by Pulse Oximetry (%) 94 L 02/07/18 21:00 Constitutional: Yes: No Distress Eyes: Yes: Conjunctiva Clear Cardiovascular: Yes: Regular Rate and Rhythm, S1, S2 Respiratory: Yes: Diminished Gastrointestinal: Yes: Normal Bowel Sounds, Soft. No: Tenderness Edema: No Labs: CBC, BMP 02/08/18 06:00 02/08/18 06:00 INR, PTT INR 1.33 (0.83-1.09) H 02/06/18 17:02 Assessment/Plan ? Toxic metabolic encephalopathy Hypercalcemia Leukopenia Renal failure Await c/s Continue empiric ceftriaxone
--- NOTE | 2018-02-08 21:40 | PN ---
Progress Note, Physician Chief Complaint: AWAKE CONFUSED A&O X 0 - Current Medication List Current Medications: Active Medications Acetaminophen (Tylenol Suppository -) 650 mg GA Q6H PRN PRN Reason: FEVER Atorvastatin Calcium (Lipitor -) 40 mg PO HS [facility] Last Admin: 02/07/18 21:44 Dose: Not Given Heparin Sodium (Porcine) (Heparin -) 1,000 unit IVPUSH PRN PRN PRN Reason: Heparin Heparin Sodium (Porcine) (Heparin -) 5,000 unit IVPUSH PRN PRN PRN Reason: Heparin Last Admin: 02/08/18 15:15 Dose: 5,000 unit Ceftriaxone Sodium 1 gm/ (Dextrose) 50 mls @ 100 mls/hr IVPB DAILY [facility]; Protocol Last Admin: 02/08/18 09:51 Dose: 100 mls/hr Vancomycin HCl (Vancomycin (Pre-Docked)) 1,000 mg in 250 mls @ 166.667 mls/hr IVPB Q24H [facility]; Protocol Last Admin: 02/07/18 21:43 Dose: 166.667 mls/hr Heparin Sodium/Dextrose (Heparin Infusion -) 25,000 units in 500 mls @ 16 mls/ hr IVPB TITR [facility]; Protocol Last Titration: 02/08/18 15:16 Dose: 950 unit/hr, 19 mls/hr Dextrose/Sodium Chloride (D5-1/2ns -) 1,000 mls @ 125 mls/hr IV ASDIR [facility] Last Admin: 02/08/18 14:36 Dose: 125 mls/hr Metoprolol Tartrate (Lopressor Injection -) 5 mg IVPUSH Q8H [facility] Last Admin: 02/08/18 14:37 Dose: 5 mg Thiamine HCl (Vitamin B1 -) 100 mg PO DAILY [facility] Last Admin: 02/08/18 09:46 Dose: Not Given - Objective Vital Signs: Vital Signs Temperature 97.2 F L 02/08/18 17:39 Pulse Rate 89 02/08/18 17:39 Respiratory Rate 18 02/08/18 17:39 Blood Pressure 123/77 02/08/18 17:39 O2 Sat by Pulse Oximetry (%) 94 L 02/08/18 09:00 Constitutional: Yes: Mild Distress Eyes: Yes: Other HENT: Yes: WNL Neck: Yes: WNL Cardiovascular: Yes: WNL Respiratory: Yes: WNL Gastrointestinal: Yes: Soft, Other Genitourinary: Yes: Incontinence Musculoskeletal: Yes: Muscle Weakness Extremities: Yes: WNL Edema: Yes Edema: LLE: Trace, RLE: Trace Peripheral Pulses WNL: Yes Integumentary: Yes: WNL Wound/Incision: Yes: Clean/Dry Neurological: Yes: Confusion, Pre-Existing Deficit, Weakness ...Motor Strength: LLE, RLE Psychiatric: Yes: Agitated Labs: CBC, BMP 02/08/18 06:00 02/08/18 06:00 INR, PTT INR 1.33 (0.83-1.09) H 02/06/18 17:02 Problem List - Problems (1) MELITA (acute kidney injury) Code(s): N17.9 - ACUTE KIDNEY FAILURE, UNSPECIFIED (2) Atrial fibrillation with RVR Code(s): I48.91 - UNSPECIFIED ATRIAL FIBRILLATION (3) Hyperlipidemia Code(s): E78.5 - HYPERLIPIDEMIA, UNSPECIFIED Qualifiers: Hyperlipidemia type: pure hypercholesterolemia Qualified Code(s): E78.00 - Pure hypercholesterolemia, unspecified; E78.0 - Pure hypercholesterolemia (4) Hypothermia Code(s): T68.XXXA - HYPOTHERMIA, INITIAL ENCOUNTER Qualifiers: Encounter type: initial encounter Qualified Code(s): T68.XXXA - Hypothermia , initial encounter (5) [id number]-[id number] kidney injury Code(s): N17.9 - ACUTE KIDNEY FAILURE, UNSPECIFIED; N18.9 - CHRONIC KIDNEY DISEASE, UNSPECIFIED Qualifiers: Acute renal failure type: unspecified Chronic kidney disease stage: unspecified stage Qualified Code(s): N17.9 - Acute kidney failure, unspecified ; N18.9 - Chronic kidney disease, unspecified (6) Generalized weakness Code(s): R53.1 - WEAKNESS (7) History of ETOH abuse Code(s): Z87.898 - PERSONAL HISTORY OF OTHER SPECIFIED CONDITIONS (8) Hypercalcemia Code(s): E83.52 - HYPERCALCEMIA (9) Hypertrophic cardiomyopathy Code(s): I42.2 - OTHER HYPERTROPHIC CARDIOMYOPATHY (10) Toxic metabolic encephalopathy Code(s): G92 - TOXIC ENCEPHALOPATHY (11) Sepsis Code(s): A41.9 - SEPSIS, UNSPECIFIED ORGANISM Assessment/Plan NEUROLOGY WORKUP IN PROGRESS WILL NEED LP PER NEURO DYSPHAGIA NPO OOB TO CHAIR WITH ASSIST PT EVAL CORRECT CA+ RENAL EVAL SPEECH PATHOLOGY IVF CANGE MEDS TO IV ON HEPARIN IV STOP ELIQUIS FOR NOW UNTIL ABLE TO SWALLOW
[2018-02-08] MEDS: VANCOMYCIN 1 GRAM (PRE-DOCKED) 1,000 MG/250 ML BAG IVPB SCH (21:43)
[2018-02-09] MEDS: DEXTROSE 5%-0.45% SALINE 1,000 ML IV SCH (01:59)
[2018-02-09] MEDS ORDERED: chlordiazePOXIDE 5 MG CAPSULE PO SCH (05:00)
[2018-02-09] MEDS: HEPARIN INFUSION - 25,000 UNITS/500 ML INFUS.BAG IVPB SCH (05:56)
[2018-02-09] MEDS: METOPROLOL TARTRATE 5 MG/5 ML VIAL IVPUSH SCH ×3 (05:56→22:04)
[2018-02-09] MEDS ORDERED: FOLIC ACID INJECTION - 1 MG, THIAMINE HCL 100 MG, MULTIVIT INJECTION ADULT 10 ML in SOD... IVPB ONE (08:39)
--- NOTE | 2018-02-09 08:40 | PN ---
Progress Note, Physician Chief Complaint: AWAKE CONFUSED STILL NO NEW EVENTS OVERNIGHT - Current Medication List Current Medications: Active Medications Acetaminophen (Tylenol Suppository -) 650 mg [place] Q6H PRN PRN Reason: FEVER Atorvastatin Calcium (Lipitor -) 40 mg PO HS [facility] Last Admin: 02/07/18 21:44 Dose: Not Given Heparin Sodium (Porcine) (Heparin -) 1,000 unit IVPUSH PRN PRN PRN Reason: Heparin Heparin Sodium (Porcine) (Heparin -) 5,000 unit IVPUSH PRN PRN PRN Reason: Heparin Last Admin: 02/08/18 15:15 Dose: 5,000 unit Ceftriaxone Sodium 1 gm/ (Dextrose) 50 mls @ 100 mls/hr IVPB DAILY [facility]; Protocol Last Admin: 02/08/18 09:51 Dose: 100 mls/hr Vancomycin HCl (Vancomycin (Pre-Docked)) 1,000 mg in 250 mls @ 166.667 mls/hr IVPB Q24H [facility]; Protocol Last Admin: 02/08/18 21:43 Dose: 166.667 mls/hr Heparin Sodium/Dextrose (Heparin Infusion -) 25,000 units in 500 mls @ 16 mls/ hr IVPB TITR [facility]; Protocol Last Admin: 02/09/18 05:56 Dose: 950 unit/hr, 19 mls/hr Folic Acid 1 mg/ Thiamine HCl 100 mg/ Multivitamins/Minerals 10 ml/ Sodium Chloride 1,000 mls @ 125 mls/hr IVPB ONCE ONE Stop: 02/09/18 16:38 Amino Acids (Clinimix -) 1,000 mls @ 84 mls/hr IV Q12H [facility] Metoprolol Tartrate (Lopressor Injection -) 5 mg IVPUSH Q8H [facility] Last Admin: 02/09/18 05:56 Dose: 5 mg Thiamine HCl (Vitamin B1 -) 100 mg PO DAILY [facility] Last Admin: 02/08/18 09:46 Dose: Not Given - Objective Vital Signs: Vital Signs Temperature 98.0 F 02/09/18 05:55 Pulse Rate 87 02/09/18 05:56 Respiratory Rate 18 02/09/18 05:55 Blood Pressure 130/83 02/09/18 05:56 O2 Sat by Pulse Oximetry (%) 99 02/08/18 21:00 Constitutional: Yes: Mild Distress Eyes: Yes: Other Cardiovascular: Yes: Pulse Irregular Respiratory: Yes: On Nasal O2, Rhonchi Genitourinary: Yes: Incontinence Musculoskeletal: Yes: Muscle Weakness Extremities: Yes: Other Edema: No Peripheral Pulses WNL: Yes Integumentary: Yes: WNL Wound/Incision: Yes: Clean/Dry Neurological: Yes: Confusion, Weakness, Other ...Motor Strength: LLE, RLE Psychiatric: Yes: Agitated, Other Labs: CBC, BMP 02/08/18 06:00 INR, PTT INR 1.33 (0.83-1.09) H 02/06/18 17:02 Problem List - Problems (1) MELITA (acute kidney injury) Code(s): N17.9 - ACUTE KIDNEY FAILURE, UNSPECIFIED (2) Atrial fibrillation with RVR Code(s): I48.91 - UNSPECIFIED ATRIAL FIBRILLATION (3) Hyperlipidemia Code(s): E78.5 - HYPERLIPIDEMIA, UNSPECIFIED Qualifiers: Hyperlipidemia type: pure hypercholesterolemia Qualified Code(s): E78.00 - Pure hypercholesterolemia, unspecified; E78.0 - Pure hypercholesterolemia (4) Hypothermia Code(s): T68.XXXA - HYPOTHERMIA, INITIAL ENCOUNTER Qualifiers: Encounter type: initial encounter Qualified Code(s): T68.XXXA - Hypothermia , initial encounter (5) [id number] kidney injury Code(s): N17.9 - ACUTE KIDNEY FAILURE, UNSPECIFIED; N18.9 - CHRONIC KIDNEY DISEASE, UNSPECIFIED Qualifiers: Acute renal failure type: unspecified Chronic kidney disease stage: unspecified stage Qualified Code(s): N17.9 - Acute kidney failure, unspecified ; N18.9 - Chronic kidney disease, unspecified (6) Generalized weakness Code(s): R53.1 - WEAKNESS (7) History of ETOH abuse Code(s): Z87.898 - PERSONAL HISTORY OF OTHER SPECIFIED CONDITIONS (8) Hypercalcemia Code(s): E83.52 - HYPERCALCEMIA (9) Hypertrophic cardiomyopathy Code(s): I42.2 - OTHER HYPERTROPHIC CARDIOMYOPATHY (10) Toxic metabolic encephalopathy Code(s): G92 - TOXIC ENCEPHALOPATHY (11) Sepsis Code(s): A41.9 - SEPSIS, UNSPECIFIED ORGANISM Assessment/Plan NPO STILL UNTIL MORE ALERT NEUROLOGICALLY CLINIMIX STARTED MONITOR CA+ LEVELS PT EVAL IV BANAN BAG FOR POSSIBLE WERNICKES ENCEPHALOPATHY VERSUS TOXIC METABOLIC ENCEPHALOPATHY NEURO AND CARDIO EVAL HEPARIN IV FOR AC AFIB SWALLOW EVAL
[2018-02-09] MEDS: AMINO ACIDS 4.25%/D5W 1,000 ML IV SCH ×2 (09:00→22:04)
[2018-02-09] MEDS ORDERED: DEXTROSE 5%-WATER - 50 ML IVPB ONE (09:47)
[2018-02-09] MEDS ORDERED: cefTRIAXone SODIUM 1 GM VIAL ONE (09:47)
[2018-02-09 10:15] LABS: ALBUMIN 1.3 g/dl (3.4-5.0); ALK PHOS 59 U/L (45-117); ANION GAP 7 MMOL/L (8-16); BILIRUBIN,TOTAL 0.3 mg/dL (0.2-1); BLOOD UREA NITROGEN 51 mg/dL (7-18); CALCIUM 10.3 mg/dL (8.5-10.1); CHLORIDE 116 mmol/L (98-107); CO2 20 mmol/L (21-32); CREATININE 2.8 mg/dL (0.55-1.3); GLUCOSE,RANDOM 131 mg/dL (74-106); POTASSIUM 4.3 mmol/L (3.5-5.1); SGOT/AST 64 U/L (15-37); SGPT/ALT 17 U/L (13-61); SODIUM 143 mmol/L (136-145); TOT PROT 12.1 g/dl (6.4-8.2)
--- NOTE | 2018-02-09 10:19 | PN ---
Progress Note, SCARRER - Note Progress Note: Selected Entries 02/08/18 02/08/18 02/08/18 01:42 05:39 08:45 Supper Temperature 97.6 F 97.4 F L 97.8 F 02/08/18 02/08/18 02/08/18 14:34 17:39 23:15 Supper NPO Temperature 96.8 F L 97.2 F L 02/09/18 02/09/18 02:00 05:55 Supper Temperature 98.3 F 98.0 F Laboratory Tests 02/07/18 02/08/18 00:55 06:00 WBC 3.7 L 3.3 L Immediately arousable to his name. Speaking but imprecise with impaired intelligibilty. Following commands to lift arm. Right arm seems weaker than left but difficult to determine. Upper airway congestion/ cough. Continue NPO for now. Monitor neuro/Pulmonary status. Elevate HOB/Suction, if neccessary/Mouth care.
[2018-02-09] MEDS: CEFTRIAXONE 1 GM in DEXTROSE 5%-WATER - 50 ML IVPB SCH (10:47)
[2018-02-09] MEDS: THIAMINE HCL 100 MG TABLET (FP) PO SCH (10:49)
--- NOTE | 2018-02-09 12:09 | PN ---
Progress Note, Physician History of Present Illness: Sensorium still altered, oral intake held, continuing on IV meds and Clinimix. - Current Medication List Current Medications: Active Medications Acetaminophen (Tylenol Suppository -) 650 mg SD Q6H PRN PRN Reason: FEVER Atorvastatin Calcium (Lipitor -) 40 mg PO HS [facility] Last Admin: 02/07/18 21:44 Dose: Not Given Heparin Sodium (Porcine) (Heparin -) 1,000 unit IVPUSH PRN PRN PRN Reason: Heparin Heparin Sodium (Porcine) (Heparin -) 5,000 unit IVPUSH PRN PRN PRN Reason: Heparin Last Admin: 02/08/18 15:15 Dose: 5,000 unit Ceftriaxone Sodium 1 gm/ (Dextrose) 50 mls @ 100 mls/hr IVPB DAILY [facility]; Protocol Last Admin: 02/09/18 10:47 Dose: 100 mls/hr Vancomycin HCl (Vancomycin (Pre-Docked)) 1,000 mg in 250 mls @ 166.667 mls/hr IVPB Q24H [facility]; Protocol Last Admin: 02/08/18 21:43 Dose: 166.667 mls/hr Heparin Sodium/Dextrose (Heparin Infusion -) 25,000 units in 500 mls @ 16 mls/ hr IVPB TITR [facility]; Protocol Last Titration: 02/09/18 11:30 Dose: 950 unit/hr, 19 mls/hr Folic Acid 1 mg/ Thiamine HCl 100 mg/ Multivitamins/Minerals 10 ml/ Sodium Chloride 1,000 mls @ 125 mls/hr IVPB ONCE ONE Stop: 02/09/18 16:38 Amino Acids (Clinimix -) 1,000 mls @ 84 mls/hr IV Q12H [facility] Last Admin: 02/09/18 09:00 Dose: 84 mls/hr Metoprolol Tartrate (Lopressor Injection -) 5 mg IVPUSH Q8H [facility] Last Admin: 02/09/18 05:56 Dose: 5 mg Thiamine HCl (Vitamin B1 -) 100 mg PO DAILY [facility] Last Admin: 02/09/18 10:49 Dose: Not Given - Objective Vital Signs: Vital Signs Temperature 97.4 F L 02/09/18 10:00 Pulse Rate 114 H 02/09/18 10:00 Respiratory Rate 18 02/09/18 10:00 Blood Pressure 129/60 02/09/18 10:00 O2 Sat by Pulse Oximetry (%) 99 02/08/18 21:00 Constitutional: Yes: No Distress, Calm, Thin Neck: Yes: Supple Cardiovascular: Yes: Regular Rate and Rhythm Respiratory: Yes: Regular, Diminished, On Nasal O2 Gastrointestinal: Yes: Soft, Hypoactive Bowel Sounds Edema: No Labs: CBC, BMP 02/08/18 06:00 02/09/18 08:00 INR, PTT INR 1.33 (0.83-1.09) H 02/06/18 17:02 - ....Imaging EKG: Report Reviewed (Rate-controlled afib) Problem List - Problems (1) Atrial fibrillation with RVR Code(s): I48.91 - UNSPECIFIED ATRIAL FIBRILLATION (2) Djypg-ym-[id number] kidney injury Code(s): N17.9 - ACUTE KIDNEY FAILURE, UNSPECIFIED; N18.9 - CHRONIC KIDNEY DISEASE, UNSPECIFIED Qualifiers: Acute renal failure type: unspecified Chronic kidney disease stage: unspecified stage Qualified Code(s): N17.9 - Acute kidney failure, unspecified ; N18.9 - Chronic kidney disease, unspecified (3) Demand ischemia Code(s): I24.8 - OTHER FORMS OF ACUTE ISCHEMIC HEART DISEASE (4) Hypercalcemia Code(s): E83.52 - HYPERCALCEMIA (5) Nonadherence to medication Code(s): Z91.14 - PATIENT'S OTHER NONCOMPLIANCE WITH MEDICATION REGIMEN (6) Paraproteinemia Code(s): D89.2 - HYPERGAMMAGLOBULINEMIA, UNSPECIFIED (7) Anticoagulant long-term use Code(s): Z79.01 - [employer]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 transplanted heart: [place] heart Associated angina: without angina Qualified Code(s): I25.10 - Atherosclerotic heart disease of [place] coronary artery without angina pectoris (10) Diastolic dysfunction without heart failure Code(s): I51.9 - HEART DISEASE, UNSPECIFIED (11) HTN (hypertension) Code(s): I10 - ESSENTIAL (PRIMARY) HYPERTENSION Qualifiers: Hypertension type: essential hypertension Qualified Code(s): I10 - Essential (primary) hypertension (12) Hypertrophic cardiomyopathy Code(s): I42.2 - OTHER HYPERTROPHIC CARDIOMYOPATHY (13) Hyperlipidemia Code(s): E78.5 - HYPERLIPIDEMIA, UNSPECIFIED Qualifiers: Hyperlipidemia type: pure hypercholesterolemia Qualified Code(s): E78.00 - Pure hypercholesterolemia, unspecified; E78.0 - Pure hypercholesterolemia Assessment/Plan R&LHc at [facility] 04/20/2016 showing nonobstructive CAD, severe LV apical hypertrophic cardiomyopathy, mildly elevated right sided pressures, Mynx deployed right CONDUCTOR AND ENGINEER access site. 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 Echocardiogram: 10/18/2017 Mod cLVH, severe PURVI, mod TR RVSP 50-60 mmHg, mod- severe MR Echocardiogram: 01/23/2018 Normal LV size with hyperdynamic LVEF 75%, mild BSH, normal RV size and fxn, severe LAE, mod-severe MR, mod TR 1. Toxic metabolic encephelopathy, r/o CVA while off NOAC, r/o sepsis 2. Acute on CKD (pre-renal) 3. Hypercalcemia, paraproteinemia-> possible multiple myeloma 3. History of bilateral SFA occlusion post thrombectomy, referable to embolic disease related to persistent atrial fibrillation with [id number] score of 6, history of poor compliance with anticoagulation and medical F/U 4. Non obstructive CAD on R&LHc coronary angiography with demand ischemia 5. LV diastolic dysfunction related to apical hypertrophic cardiomyopathy, subendocardial ischemia, compensated/euvolemic 6. Persistent atrial fibrillation [id number] score of 6 on Xarelto 20 qd 7. Labile HTN 8. Poor compliance with medical therapy administration and medical F/U 9. Tobacco abuse 10. ETOH dependence PLAN: 1. Heparin gtt for now while off Xarelto 15 qd (renal dosing) 2. IV Lopressor as hemodynamics tolerate 3. Hematology input, SPEP, UPEP pending 4. Judicious Clinimix with monitor renal recovery, renal input appreciated, check PTH, ruled out obstructive uropathy 5. Empiric abx course pending C&S 6. NGT for enteral feeds if prolonged NPO
--- NOTE | 2018-02-09 15:28 | PN ---
Progress Note, Physician Chief Complaint: confusion History of Present Illness: 77 y/o man with a PMHx of Persistent Afib [id number] with recurrent peripheral arterial embolism due to previous noncompliance with Xarelto due to lack of social support, Diabetes Mellitus, Apical Hypertrophic Cardiomyopathy, Alcohol Abuse, nonobstructive CAD h/o anaphylaxis after eating [employer]- shrimp and boneless spare ribs, suspected myeloma (due to paraproteinemia and M spike, SPEP/UPEP results not yet found), recent admission for vasovagal near syncope and MELITA presented with altered mental status after being found down at his home by EMS after his neighbor found mail piling up, etc. He was brought to the ER and was arousable and following commands but not answering questions appropriately and is altered and cannot provide any acurate history; I am told he was still wearing his wristband from his last discharge. He was found to be hypothermic and tachycardic with a marked hypercalcemia and MELITA. This is similar to his prior presentation when he was found to be hypercalcemic ( discharged with Ca of 11 corrected) and hypothermic. His Ca is even more off this time. - Current Medication List Current Medications: Active Medications Acetaminophen (Tylenol Suppository -) 650 mg RI Q6H PRN PRN Reason: FEVER Heparin Sodium (Porcine) (Heparin -) 1,000 unit IVPUSH PRN PRN PRN Reason: Heparin Heparin Sodium (Porcine) (Heparin -) 5,000 unit IVPUSH PRN PRN PRN Reason: Heparin Last Admin: 02/08/18 15:15 Dose: 5,000 unit Ceftriaxone Sodium 1 gm/ (Dextrose) 50 mls @ 100 mls/hr IVPB DAILY [facility]; Protocol Last Admin: 02/09/18 10:47 Dose: 100 mls/hr Vancomycin HCl (Vancomycin (Pre-Docked)) 1,000 mg in 250 mls @ 166.667 mls/hr IVPB Q24H [facility]; Protocol Last Admin: 02/08/18 21:43 Dose: 166.667 mls/hr Heparin Sodium/Dextrose (Heparin Infusion -) 25,000 units in 500 mls @ 16 mls/ hr IVPB TITR [facility]; Protocol Last Titration: 02/09/18 11:30 Dose: 950 unit/hr, 19 mls/hr Folic Acid 1 mg/ Thiamine HCl 100 mg/ Multivitamins/Minerals 10 ml/ Sodium Chloride 1,000 mls @ 125 mls/hr IVPB ONCE ONE Stop: 02/09/18 16:38 Last Admin: 02/09/18 13:40 Dose: 125 mls/hr Amino Acids (Clinimix -) 1,000 mls @ 84 mls/hr IV Q12H [facility] Last Admin: 02/09/18 09:00 Dose: 84 mls/hr Metoprolol Tartrate (Lopressor Injection -) 5 mg IVPUSH Q8H [facility] Last Admin: 02/09/18 05:56 Dose: 5 mg Thiamine HCl (Vitamin B1 -) 100 mg PO DAILY [facility] Last Admin: 02/09/18 10:49 Dose: Not Given - Objective Vital Signs: Vital Signs Temperature 97.8 F 02/09/18 14:09 Pulse Rate 110 H 02/09/18 14:09 Respiratory Rate 18 02/09/18 14:09 Blood Pressure 125/92 02/09/18 14:09 O2 Sat by Pulse Oximetry (%) 99 02/08/18 21:00 Neurological: Yes: Other (confused, moves extremities equally) Labs: CBC, BMP 02/08/18 06:00 02/09/18 08:00 INR, PTT INR 1.33 (0.83-1.09) H 02/06/18 17:02 Problem List - Problems (1) MELITA (acute kidney injury) Code(s): N17.9 - ACUTE KIDNEY FAILURE, UNSPECIFIED (2) Atrial fibrillation with RVR Code(s): I48.91 - UNSPECIFIED ATRIAL FIBRILLATION (3) Cellulitis Code(s): L03.90 - CELLULITIS, UNSPECIFIED Qualifiers: Site of cellulitis: extremity Site of cellulitis of extremity: lower extremity Laterality: right Qualified Code(s): L03.115 - Cellulitis of right lower limb (4) Hyperlipidemia Code(s): E78.5 - HYPERLIPIDEMIA, UNSPECIFIED Qualifiers: Hyperlipidemia type: pure hypercholesterolemia Qualified Code(s): E78.00 - Pure hypercholesterolemia, unspecified; E78.0 - Pure hypercholesterolemia (5) Hypothermia Code(s): T68.XXXA - HYPOTHERMIA, INITIAL ENCOUNTER Qualifiers: Encounter type: initial encounter Qualified Code(s): T68.XXXA - Hypothermia , initial encounter (6) Sepsis Code(s): A41.9 - SEPSIS, UNSPECIFIED ORGANISM (7) Toxic metabolic encephalopathy Code(s): G92 - TOXIC ENCEPHALOPATHY (8) Eyiia-il-aamysaq kidney injury Code(s): N17.9 - ACUTE KIDNEY FAILURE, UNSPECIFIED; N18.9 - CHRONIC KIDNEY DISEASE, UNSPECIFIED Qualifiers: Acute renal failure type: unspecified Chronic kidney disease stage: unspecified stage Qualified Code(s): N17.9 - Acute kidney failure, unspecified ; N18.9 - Chronic kidney disease, unspecified Assessment/Plan This still looks like metabolic encephalopathy much more than structural. As calcium corrects, will watch for improvement and if none seen consider repeat imaging.
--- NOTE | 2018-02-09 16:16 | PN ---
Progress Note (short form) - Note Progress Note: Renal follow up for Hypercalcemia/MELITA Pt seen and examined at the bedside awake but lethagic and not answering questions Corrected Ca ~12 this am on Clinimix IV Vital Signs Temperature 97.8 F 02/09/18 14:09 Pulse Rate 110 H 02/09/18 14:09 Respiratory Rate 18 02/09/18 14:09 Blood Pressure 125/92 02/09/18 14:09 O2 Sat by Pulse Oximetry (%) 99 02/09/18 09:00 Intake & Output 02/06/18 02/07/18 02/08/18 02/09/18 23:59 23:59 23:59 23:59 Intake Total 2250 4375 1700 2300 Output Total 300 Balance 1950 4375 1700 2300 Weight 72.575 kg 75.296 kg NAD lethargic RRR CTA no LE edema CBC, BMP 02/08/18 06:00 02/09/18 08:00 Current Medications Acetaminophen (Tylenol Suppository -) 650 mg DC Q6H PRN PRN Reason: FEVER Heparin Sodium (Porcine) (Heparin -) 1,000 unit IVPUSH PRN PRN PRN Reason: Heparin Heparin Sodium (Porcine) (Heparin -) 5,000 unit IVPUSH PRN PRN PRN Reason: Heparin Last Admin: 02/08/18 15:15 Dose: 5,000 unit Ceftriaxone Sodium 1 gm/ (Dextrose) 50 mls @ 100 mls/hr IVPB DAILY [facility]; Protocol Last Admin: 02/09/18 10:47 Dose: 100 mls/hr Vancomycin HCl (Vancomycin (Pre-Docked)) 1,000 mg in 250 mls @ 166.667 mls/hr IVPB Q24H [facility]; Protocol Last Admin: 02/08/18 21:43 Dose: 166.667 mls/hr Heparin Sodium/Dextrose (Heparin Infusion -) 25,000 units in 500 mls @ 16 mls/ hr IVPB TITR [facility]; Protocol Last Titration: 02/09/18 11:30 Dose: 950 unit/hr, 19 mls/hr Folic Acid 1 mg/ Thiamine HCl 100 mg/ Multivitamins/Minerals 10 ml/ Sodium Chloride 1,000 mls @ 125 mls/hr IVPB ONCE ONE Stop: 02/09/18 16:38 Last Admin: 02/09/18 13:40 Dose: 125 mls/hr Amino Acids (Clinimix -) 1,000 mls @ 84 mls/hr IV Q12H [facility] Last Admin: 02/09/18 09:00 Dose: 84 mls/hr Metoprolol Tartrate (Lopressor Injection -) 5 mg IVPUSH Q8H [facility] Last Admin: 02/09/18 05:56 Dose: 5 mg Thiamine HCl (Vitamin B1 -) 100 mg PO DAILY [facility] Last Admin: 02/09/18 10:49 Dose: Not Given 77 year old gentleman with hx of CKD, Afib on A/C, CAD, CKD, Hypertension, Hyperlipidemia, PVD who presented with AMS/Confusion and found to have MELITA. #MELITA (FeNa was 2.1% indicating tubular injury, US showed no stones or obstruction) #AMS of unclear etiology (metabolic encephalopathy) #Anemia #Hypercalcemia of Malignancy (PTH is low) US showed no obstruction Renal function w/o improvement despite IVF Ca remains unchanged (corrected ~12) On IVF (Clinimix), Trend Ca Check stat BMP now given confusion Check PTHrp and Vit D levels Likely hypercalcemia of malignancy if Ca does not improve will need to treat with Calcitonin (no bisphosphates given MELITA) no acute indiction for SUPPLY CH[employer] TECH but if Ca levels and mental status does not improve may need to consider Trend renal function and electrolytes dose all meds for CrCl < 15 Mack Miller DO
[2018-02-09 19:42] LABS: ANION GAP 7 MMOL/L (8-16); BLOOD UREA NITROGEN 44 mg/dL (7-18); CALCIUM 8.7 mg/dL (8.5-10.1); CHLORIDE 121 mmol/L (98-107); CO2 16 mmol/L (21-32); CREATININE 2.2 mg/dL (0.55-1.3); GLUCOSE,RANDOM 130 mg/dL (74-106); SODIUM 144 mmol/L (136-145)
[2018-02-09] MEDS: VANCOMYCIN 1 GRAM (PRE-DOCKED) 1,000 MG/250 ML BAG IVPB SCH (22:04)
[2018-02-10] MEDS ORDERED: chlordiazePOXIDE HCL 10 MG CAPSULE PO SCH (05:00)
[2018-02-10] MEDS: METOPROLOL TARTRATE 5 MG/5 ML VIAL IVPUSH SCH ×3 (05:46→21:20)
[2018-02-10] MEDS: HEPARIN INFUSION - 25,000 UNITS/500 ML INFUS.BAG IVPB SCH (05:49)
--- NOTE | 2018-02-10 08:48 | PN ---
Progress Note (short form) - Note Progress Note: Renal follow up for Hypercalcemia/MELITA Pt seen and examined at the bedside remains lethargic opens eyes to verbal stimuli but not answering questions no overnight events on IVF Vital Signs Temperature 97.7 F 02/10/18 02:00 Pulse Rate 89 02/10/18 05:46 Respiratory Rate 20 02/10/18 02:00 Blood Pressure 113/57 L 02/10/18 05:46 O2 Sat by Pulse Oximetry (%) 99 02/09/18 21:00 Intake & Output 02/07/18 02/08/18 02/09/18 02/10/18 23:59 23:59 23:59 23:59 Intake Total 4375 1700 2300 478 Balance 4375 1700 2300 478 Weight 75.296 kg NAD Dry MM Neck supple RRR Dec BS, no rales no LE edema CBC, BMP 02/09/18 17:45 Laboratory Tests 02/06/18 02/06/18 02/07/18 17:02 18:00 06:00 Calcium 10.6 H Creatine Kinase 409 H Ur Specific [place] 1.018 Urine Blood 2+ H Urine WBC (Auto) <1 Urine RBC (Auto) 4 KARISHMA M-Olegario 02/09/18 02/09/18 08:00 17:45 Calcium 8.7 Creatine Kinase Ur Specific [place] Urine Blood Urine WBC (Auto) Urine RBC (Auto) KARISHMA M-Olegario Pending Current Medications Acetaminophen (Tylenol Suppository -) 650 mg [place] Q6H PRN PRN Reason: FEVER Heparin Sodium (Porcine) (Heparin -) 1,000 unit IVPUSH PRN PRN PRN Reason: Heparin Heparin Sodium (Porcine) (Heparin -) 5,000 unit IVPUSH PRN PRN PRN Reason: Heparin Last Admin: 02/08/18 15:15 Dose: 5,000 unit Ceftriaxone Sodium 1 gm/ (Dextrose) 50 mls @ 100 mls/hr IVPB DAILY [facility]; Protocol Last Admin: 02/09/18 10:47 Dose: 100 mls/hr Vancomycin HCl (Vancomycin (Pre-Docked)) 1,000 mg in 250 mls @ 166.667 mls/hr IVPB Q24H [facility]; Protocol Last Admin: 02/09/18 22:04 Dose: 166.667 mls/hr Heparin Sodium/Dextrose (Heparin Infusion -) 25,000 units in 500 mls @ 16 mls/ hr IVPB TITR [facility]; Protocol Last Admin: 02/10/18 05:49 Dose: 950 unit/hr, 19 mls/hr Amino Acids (Clinimix -) 1,000 mls @ 84 mls/hr IV Q12H [facility] Last Admin: 02/09/18 22:04 Dose: Not Given Metoprolol Tartrate (Lopressor Injection -) 5 mg IVPUSH Q8H [facility] Last Admin: 02/10/18 05:46 Dose: 5 mg Thiamine HCl (Vitamin B1 -) 100 mg PO DAILY ON LICENSE OF [facility] Last Admin: 02/09/18 10:49 Dose: Not Given 77 year old gentleman with hx of CKD, Afib on A/C, CAD, CKD, Hypertension, Hyperlipidemia, PVD who presented with AMS/Confusion and found to have MELITA. #MELITA (FeNa was 2.1% indicating tubular injury, US showed no stones or obstruction) #AMS of unclear etiology (metabolic encephalopathy) #Anemia #Hypercalcemia of Malignancy (PTH is low) Todays labs pending renal function unchanged as of yesterday Corrected Ca as of yesterday evening was 11.1, unlikely that alone would cause AMS to this degree will trend renal function and electrolytes if no change in MS can consider [employer] to access for clinical improvement Mack Miller DO
[2018-02-10 08:49] LABS: HEMATOCRIT 26.8 % (35.4-49); HEMOGLOBIN 9.3 GM/dL (11.7-16.9); MCH 31.8 pg (25.7-33.7); MCHC 34.8 g/dl (32.0-35.9); MEAN CELL VOLUME 91.4 fl (80-96); MEAN PLT VOLUME 9.3 fl (7.5-11.1); PLATELET COUNT 235 K/MM3 (134-434); RBC 2.94 M/mm3 (4.00-5.60); RDW 16.4 % (11.9-15.9); WHITE BLOOD COUNT 3.9 K/mm3 (4.0-10.0)
[2018-02-10 09:43] LABS: ANION GAP 6 MMOL/L (8-16); BLOOD UREA NITROGEN 47 mg/dL (7-18); CHLORIDE 116 mmol/L (98-107); CO2 21 mmol/L (21-32); CREATININE 2.5 mg/dL (0.55-1.3); GLUCOSE,RANDOM 106 mg/dL (74-106); POTASSIUM 4.6 mmol/L (3.5-5.1); SODIUM 142 mmol/L (136-145)
[2018-02-10] MEDS ORDERED: cefTRIAXone SODIUM 1 GM VIAL ONE (09:43)
[2018-02-10] MEDS ORDERED: DEXTROSE 5%-WATER - 50 ML IVPB ONE (09:43)
[2018-02-10] MEDS: AMINO ACIDS 4.25%/D5W 1,000 ML IV SCH (09:58)
[2018-02-10] MEDS: THIAMINE HCL 100 MG TABLET (FP) PO SCH (09:59)
[2018-02-10] MEDS: CEFTRIAXONE 1 GM in DEXTROSE 5%-WATER - 50 ML IVPB SCH (09:59)
--- NOTE | 2018-02-10 10:01 | PN ---
Progress Note, Physician - Current Medication List Current Medications: Active Medications Acetaminophen (Tylenol Suppository -) 650 mg [place] Q6H PRN PRN Reason: FEVER Heparin Sodium (Porcine) (Heparin -) 1,000 unit IVPUSH PRN PRN PRN Reason: Heparin Heparin Sodium (Porcine) (Heparin -) 5,000 unit IVPUSH PRN PRN PRN Reason: Heparin Last Admin: 02/08/18 15:15 Dose: 5,000 unit Ceftriaxone Sodium 1 gm/ (Dextrose) 50 mls @ 100 mls/hr IVPB DAILY [facility]; Protocol Last Admin: 02/10/18 09:59 Dose: 100 mls/hr Vancomycin HCl (Vancomycin (Pre-Docked)) 1,000 mg in 250 mls @ 166.667 mls/hr IVPB Q24H [facility]; Protocol Last Admin: 02/09/18 22:04 Dose: 166.667 mls/hr Heparin Sodium/Dextrose (Heparin Infusion -) 25,000 units in 500 mls @ 16 mls/ hr IVPB TITR [facility]; Protocol Last Admin: 02/10/18 05:49 Dose: 950 unit/hr, 19 mls/hr Amino Acids (Clinimix -) 1,000 mls @ 84 mls/hr IV Q12H [facility] Last Admin: 02/10/18 09:58 Dose: 84 mls/hr Metoprolol Tartrate (Lopressor Injection -) 5 mg IVPUSH Q8H [facility] Last Admin: 02/10/18 05:46 Dose: 5 mg Thiamine HCl (Vitamin B1 -) 100 mg PO DAILY [facility] Last Admin: 02/10/18 09:59 Dose: Not Given - Objective Vital Signs: Vital Signs Temperature 97.7 F 02/10/18 02:00 Pulse Rate 89 02/10/18 05:46 Respiratory Rate 20 02/10/18 02:00 Blood Pressure 113/57 L 02/10/18 05:46 O2 Sat by Pulse Oximetry (%) 99 02/09/18 21:00 Labs: CBC, BMP 02/10/18 06:10 02/10/18 08:47 INR, PTT INR 1.33 (0.83-1.09) H 02/06/18 17:02 Problem List - Problems (1) Toxic metabolic encephalopathy Assessment/Plan: -Unclear etiology. May be secondary to toxic metabolic encephalopathy as patient has history of alcohol abuse. Uncertain last alcoholic drink. -CT head showed no acute intracranial pathology -IVF-Clinimex -Thiamine -Folate Code(s): G92 - TOXIC ENCEPHALOPATHY (2) Cellulitis Assessment/Plan: -Ceftriaxone Code(s): L03.90 - CELLULITIS, UNSPECIFIED Qualifiers: Site of cellulitis: extremity Site of cellulitis of extremity: lower extremity Laterality: right Qualified Code(s): L03.115 - Cellulitis of right lower limb (3) Sepsis Assessment/Plan: Microbiology 02/06/18 17:02 Blood - Peripheral Venous Blood Culture - Preliminary NO GROWTH OBTAINED AFTER 72 HOURS, INCUBATION TO CONTINUE FOR 2 DAYS. 02/06/18 17:02 Blood - Peripheral Venous Blood Culture - Preliminary NO GROWTH OBTAINED AFTER 72 HOURS, INCUBATION TO CONTINUE FOR 2 DAYS. 02/06/18 17:02 Urine - Urine - Catheterized Urine Culture - Final NO GROWTH OBTAINED 02/07/18 19:15 Nasopharyngeal Swab Influenza Types A,B Antigen - Final 02/07/18 19:15 Nasopharyngeal Swab - Final Code(s): A41.9 - SEPSIS, UNSPECIFIED ORGANISM (4) Artery occlusion Assessment/Plan: -Patient's right lower extremity erythematous, with poor pulses -Duplex arterial and venous ultrasound of right lower extremity -Vascular surgery consult (Dr. Rico) Code(s): I70.90 - UNSPECIFIED ATHEROSCLEROSIS (5) Hypercalcemia Assessment/Plan: -Prior admission had begun workup for multiple myeloma (KARISHMA M-spike 4.7) -Patient receiving IVF -Will continue fluids as discussed with nephrology (Dr. Howard). -F/U ionized calcium -Consider hematology-oncology consult Code(s): E83.52 - HYPERCALCEMIA (6) Paroxysmal atrial fibrillation Assessment/Plan: -Heparin drip -tele Code(s): I48.0 - PAROXYSMAL ATRIAL FIBRILLATION (7) MELITA (acute kidney injury) Assessment/Plan: -Cr 2.8 (1.6 on prior discharge earlier this month). Baseline Cr. at approx 1.3 -May be secondary to dehydration -Patient receiving IV -F/U nephrology consult (Dr. Howard) Code(s): N17.9 - ACUTE KIDNEY FAILURE, UNSPECIFIED Assessment/Plan Patient is a 77 year old male with history of Afib on xarelto, coronary artery disease, chronic kidney disease, hypertension, hyperlipidemia, peripheral vascular disease s/p arterial stent in left lower extremity, alcohol abuse, and medication noncompliance presents after being found non responsive at home. Altered mental status -Unclear etiology. May be secondary to toxic metabolic encephalopathy as patient has history of alcohol abuse. Uncertain last alcoholic drink. -CT head showed no acute intracranial pathology -IV normal saline at 125mL/ hour -[facility] protocol -Thiamine -Folate -F/U urine toxicology -F/U blood alcohol level Hypercalcemia -Prior admission had begun workup for multiple myeloma (KARISHMA M-spike 4.7) -Patient receiving IV normal saline -Will continue fluids as discussed with nephrology (Dr. Howard). -F/U ionized calcium -Consider hematology-oncology consult Troponinemia -Likely secondary to demand ischemia as patient was dehydrated, hypovolemic -Troponin 0.80. Will trend -EKG showed -F/U cardiology consult (Dr. Hightower) Acute on chronic kidney injury -Cr 2.8 (1.6 on prior discharge earlier this month). Baseline Cr. at approx 1.3 -May be secondary to dehydration -Patient receiving IV normal saline -F/U nephrology consult (Dr. Howard) Afib (CHADSVASC 6) -Reinstate home medication Xarelto 20mg History peripheral vascular disease s/p arterial stent in left lower extremity -Patient's right lower extremity erythematous, with poor pulses -Duplex arterial and venous ultrasound of right lower extremity -F/U official read of xray right lower extremity done in ED -Vascular surgery consult (Dr. Rico) Coronary artery disease -Continue Aspirin 81mg -Continue Lipitor 40mg
[2018-02-10] MEDS: VANCOMYCIN 1 GRAM (PRE-DOCKED) 1,000 MG/250 ML BAG IVPB SCH (20:12)
[2018-02-11] MEDS: AMINO ACIDS 4.25%/D5W 1,000 ML IV SCH ×3 (05:33→21:32)
[2018-02-11] MEDS: HEPARIN INFUSION - 25,000 UNITS/500 ML INFUS.BAG IVPB SCH (05:33)
[2018-02-11] MEDS: METOPROLOL TARTRATE 5 MG/5 ML VIAL IVPUSH SCH ×3 (05:34→21:32)
[2018-02-11 07:35] LABS: BASO % 0.6 % (0-2.0); EOS % 1.4 % (0-4.5); HEMATOCRIT 27.3 % (35.4-49); HEMOGLOBIN 9.3 GM/dL (11.7-16.9); LYMPH % 26.8 % (8-40); MCH 31.6 pg (25.7-33.7); MEAN PLT VOLUME 8.7 fl (7.5-11.1); MONO % 4.6 % (3.8-10.2); NEUT % 66.6 % (42.8-82.8); PLATELET COUNT 203 K/MM3 (134-434); RBC 2.93 M/mm3 (4.00-5.60); RDW 16.6 % (11.9-15.9); WHITE BLOOD COUNT 3.2 K/mm3 (4.0-10.0)
--- NOTE | 2018-02-11 08:08 | PN ---
Progress Note (short form) - Note Progress Note: Renal follow up for Hypercalcemia/MELITA Pt seen and examined at the bedside still remains lethargic opens eyes to verbal stimuli but not talking no overnight events on IVF Vital Signs Temperature 98.6 F 02/11/18 05:30 Pulse Rate 94 H 02/11/18 05:34 Respiratory Rate 22 H 02/11/18 05:30 Blood Pressure 121/76 02/11/18 05:34 O2 Sat by Pulse Oximetry (%) 98 02/10/18 20:59 Intake & Output 02/08/18 02/09/18 02/10/18 02/11/18 23:59 23:59 23:59 22:59 Intake Total 1700 2300 1856 1236 Balance 1700 2300 1856 1236 NAD Lethargic RRR Dec BS no rales no LE edema CBC, BMP 02/11/18 06:30 02/11/18 06:30 Laboratory Tests 02/11/18 06:30 Calcium 10.2 H Phosphorus 4.5 Magnesium 1.8 Acetaminophen (Tylenol Suppository -) 650 mg [place] Q6H PRN PRN Reason: FEVER Heparin Sodium (Porcine) (Heparin -) 1,000 unit IVPUSH PRN PRN PRN Reason: Heparin Heparin Sodium (Porcine) (Heparin -) 5,000 unit IVPUSH PRN PRN PRN Reason: Heparin Last Admin: 02/08/18 15:15 Dose: 5,000 unit Ceftriaxone Sodium 1 gm/ (Dextrose) 50 mls @ 100 mls/hr IVPB DAILY [facility]; Protocol Last Admin: 02/10/18 09:59 Dose: 100 mls/hr Vancomycin HCl (Vancomycin (Pre-Docked)) 1,000 mg in 250 mls @ 166.667 mls/hr IVPB Q24H [facility]; Protocol Last Admin: 02/10/18 20:12 Dose: 166.667 mls/hr Heparin Sodium/Dextrose (Heparin Infusion -) 25,000 units in 500 mls @ 16 mls/ hr IVPB TITR [facility]; Protocol Last Admin: 02/11/18 05:33 Dose: 950 unit/hr, 19 mls/hr Amino Acids (Clinimix -) 1,000 mls @ 84 mls/hr IV Q12H [facility] Last Admin: 02/11/18 05:33 Dose: 84 mls/hr Metoprolol Tartrate (Lopressor Injection -) 5 mg IVPUSH Q8H [facility] Last Admin: 02/11/18 05:34 Dose: 5 mg Thiamine HCl (Vitamin B1 -) 100 mg PO DAILY [facility] Last Admin: 02/10/18 09:59 Dose: Not Given 77 year old gentleman with hx of CKD, Afib on A/C, CAD, CKD, Hypertension, Hyperlipidemia, PVD who presented with AMS/Confusion and found to have MELITA. #MELITA (FeNa was 2.1% indicating tubular injury, US showed no stones or obstruction) #AMS of unclear etiology (metabolic encephalopathy) #Anemia #Hypercalcemia of Malignancy (PTH is low) #Hyperdense lesion on US of the kidney Renal function w/o significant improvement despite IVF for several days no hydronephrosis seen on US but pt with mild urinary retention, will insert francois today and monitor clinical response Corrected Ca today is 12.6, given continues AMS/Lethargy will give IM calcitonin today and monitor serum Ca continue IVF for now Continue Abx as per ID supportive care no acute indication for [employer] but Ca is not responsive to medical management may need to consider [employer] Mack Miller DO
[2018-02-11 08:37] LABS: ANION GAP 4 MMOL/L (8-16); BLOOD UREA NITROGEN 54 mg/dL (7-18); CALCIUM 10.2 mg/dL (8.5-10.1); CHLORIDE 112 mmol/L (98-107); CO2 20 mmol/L (21-32); CREATININE 2.3 mg/dL (0.55-1.3); GLUCOSE,RANDOM 108 mg/dL (74-106); MAGNESIUM 1.8 mg/dL (1.8-2.4); PHOSPHOROUS 4.5 mg/dL (2.5-4.9); POTASSIUM 4.1 mmol/L (3.5-5.1); SODIUM 137 mmol/L (136-145)
[2018-02-11] MEDS ORDERED: DEXTROSE 5%-WATER - 50 ML IVPB ONE (08:59)
[2018-02-11] MEDS ORDERED: cefTRIAXone SODIUM 1 GM VIAL ONE (08:59)
[2018-02-11] MEDS: CEFTRIAXONE 1 GM in DEXTROSE 5%-WATER - 50 ML IVPB SCH (09:27)
[2018-02-11] MEDS: THIAMINE HCL 100 MG TABLET (FP) PO SCH (09:28)
[2018-02-11 10:44] LABS: CORRECTED WBC 2.88 K/mm3
[2018-02-11 10:57] LABS: ROULEAU 2+
[2018-02-11] MEDS: CALCITONIN - SALMON SYNTHETIC 400 UNIT/2 ML VIAL SQ SCH ×2 (11:48→22:03)
--- NOTE | 2018-02-11 12:30 | PN ---
Progress Note, Physician History of Present Illness: STILL LETHARGIC - Current Medication List Current Medications: Active Medications Acetaminophen (Tylenol Suppository -) 650 mg [place] Q6H PRN PRN Reason: FEVER Calcitonin (Miacalcin Injection -) 300 unit SQ BID [facility] Stop: 02/11/18 22:01 Last Admin: 02/11/18 11:48 Dose: 300 unit Heparin Sodium (Porcine) (Heparin -) 1,000 unit IVPUSH PRN PRN PRN Reason: Heparin Heparin Sodium (Porcine) (Heparin -) 5,000 unit IVPUSH PRN PRN PRN Reason: Heparin Last Admin: 02/08/18 15:15 Dose: 5,000 unit Ceftriaxone Sodium 1 gm/ (Dextrose) 50 mls @ 100 mls/hr IVPB DAILY [facility]; Protocol Last Admin: 02/11/18 09:27 Dose: 100 mls/hr Vancomycin HCl (Vancomycin (Pre-Docked)) 1,000 mg in 250 mls @ 166.667 mls/hr IVPB Q24H [facility]; Protocol Last Admin: 02/10/18 20:12 Dose: 166.667 mls/hr Heparin Sodium/Dextrose (Heparin Infusion -) 25,000 units in 500 mls @ 16 mls/ hr IVPB TITR [facility]; Protocol Last Admin: 02/11/18 05:33 Dose: 950 unit/hr, 19 mls/hr Amino Acids (Clinimix -) 1,000 mls @ 84 mls/hr IV Q12H [facility] Last Admin: 02/11/18 09:27 Dose: 84 mls/hr Metoprolol Tartrate (Lopressor Injection -) 5 mg IVPUSH Q8H [facility] Last Admin: 02/11/18 05:34 Dose: 5 mg Thiamine HCl (Vitamin B1 -) 100 mg PO DAILY [facility] Last Admin: 02/11/18 09:28 Dose: Not Given - Objective Vital Signs: Vital Signs Temperature 98.1 F 02/11/18 09:48 Pulse Rate 90 02/11/18 09:48 Respiratory Rate 20 02/11/18 09:48 Blood Pressure 133/79 02/11/18 09:48 O2 Sat by Pulse Oximetry (%) 98 02/10/18 20:59 Cardiovascular: Yes: S1, S2 Respiratory: Yes: Diminished, On Nasal O2, Rhonchi Gastrointestinal: Yes: Normal Bowel Sounds, Soft Neurological: Yes: Lethargy, Weakness Labs: CBC, BMP 02/11/18 06:30 02/11/18 06:30 INR, PTT INR 1.33 (0.83-1.09) H 02/06/18 17:02 Problem List - Problems (1) Toxic metabolic encephalopathy Code(s): G92 - TOXIC ENCEPHALOPATHY (2) Cellulitis Code(s): L03.90 - CELLULITIS, UNSPECIFIED Qualifiers: Site of cellulitis: extremity Site of cellulitis of extremity: lower extremity Laterality: right Qualified Code(s): L03.115 - Cellulitis of right lower limb (3) Sepsis Code(s): A41.9 - SEPSIS, UNSPECIFIED ORGANISM (4) Artery occlusion Code(s): I70.90 - UNSPECIFIED ATHEROSCLEROSIS (5) Hypercalcemia Code(s): E83.52 - HYPERCALCEMIA (6) Paroxysmal atrial fibrillation Code(s): I48.0 - PAROXYSMAL ATRIAL FIBRILLATION (7) MELITA (acute kidney injury) Code(s): N17.9 - ACUTE KIDNEY FAILURE, UNSPECIFIED Assessment/Plan Patient is a 77 year old male with history of Afib on xarelto, coronary artery disease, chronic kidney disease, hypertension, hyperlipidemia, peripheral vascular disease s/p arterial stent in left lower extremity, alcohol abuse, and medication noncompliance presents after being found non responsive at home. Altered mental status -Unclear etiology. May be secondary to toxic metabolic encephalopathy as patient has history of alcohol abuse. Uncertain last alcoholic drink. -CT head showed no acute intracranial pathology--REPEAT TODAY NO CHANGE -IVF -Thiamine -Folate -nEYROLOGY fOLLOW UP -eeg Hypercalcemia -Prior admission had begun workup for multiple myeloma (KARISHMA M-spike 4.7) -Patient receiving IV normal saline -Will continue fluids as discussed with nephrology (Dr. Howard). -F/U ionized calcium -hematology-oncology consult Troponinemia -Likely secondary to demand ischemia as patient was dehydrated, hypovolemic -Troponin 0.80. -EKG showed -F/U cardiology consult (Dr. Hightower) Acute on chronic kidney injury -Cr 2.8 (1.6 on prior discharge earlier this month). Baseline Cr. at approx 1.3 -May be secondary to dehydration -Patient receiving IV normal saline -F/U nephrology consult (Dr. Howard) Afib (CHADSVASC 6) -Reinstate home medication Xarelto 20mg History peripheral vascular disease s/p arterial stent in left lower extremity -Patient's right lower extremity erythematous, with poor pulses -Duplex arterial--PAD - and venous ultrasound of right lower extremity-NEG FOR DVT -Vascular surgery consult (Dr. Rico) Coronary artery disease -Continue Aspirin 81mg -Continue Lipitor 40mg
--- NOTE | 2018-02-11 15:32 | PN ---
Progress Note, Physician History of Present Illness: Sensorium still altered, oral intake held, continuing on IV meds and Clinimix. - Current Medication List Current Medications: Active Medications Acetaminophen (Tylenol Suppository -) 650 mg [place] Q6H PRN PRN Reason: FEVER Calcitonin (Miacalcin Injection -) 300 unit SQ BID [facility] Stop: 02/11/18 22:01 Last Admin: 02/11/18 11:48 Dose: 300 unit Heparin Sodium (Porcine) (Heparin -) 1,000 unit IVPUSH PRN PRN PRN Reason: Heparin Heparin Sodium (Porcine) (Heparin -) 5,000 unit IVPUSH PRN PRN PRN Reason: Heparin Last Admin: 02/08/18 15:15 Dose: 5,000 unit Ceftriaxone Sodium 1 gm/ (Dextrose) 50 mls @ 100 mls/hr IVPB DAILY [facility]; Protocol Last Admin: 02/11/18 09:27 Dose: 100 mls/hr Vancomycin HCl (Vancomycin (Pre-Docked)) 1,000 mg in 250 mls @ 166.667 mls/hr IVPB Q24H [facility]; Protocol Last Admin: 02/10/18 20:12 Dose: 166.667 mls/hr Heparin Sodium/Dextrose (Heparin Infusion -) 25,000 units in 500 mls @ 16 mls/ hr IVPB TITR [facility]; Protocol Last Admin: 02/11/18 05:33 Dose: 950 unit/hr, 19 mls/hr Amino Acids (Clinimix -) 1,000 mls @ 84 mls/hr IV Q12H [facility] Last Admin: 02/11/18 09:27 Dose: 84 mls/hr Metoprolol Tartrate (Lopressor Injection -) 5 mg IVPUSH Q8H [facility] Last Admin: 02/11/18 14:22 Dose: 5 mg Thiamine HCl (Vitamin B1 -) 100 mg PO DAILY [facility] Last Admin: 02/11/18 09:28 Dose: Not Given - Objective Vital Signs: Vital Signs Temperature 98.2 F 02/11/18 13:30 Pulse Rate 92 H 02/11/18 14:22 Respiratory Rate 18 02/11/18 13:30 Blood Pressure 114/65 02/11/18 14:22 O2 Sat by Pulse Oximetry (%) 97 02/11/18 09:00 Constitutional: Yes: No Distress, Calm, Cachectic, Thin Neck: Yes: Supple Cardiovascular: Yes: Pulse Irregular, Murmur (2/6 SM) Respiratory: Yes: Regular, Diminished, On Nasal O2 Gastrointestinal: Yes: Soft, Hypoactive Bowel Sounds Edema: No Neurological: Yes: Lethargy Labs: CBC, BMP 02/11/18 06:30 02/11/18 06:30 INR, PTT INR 1.33 (0.83-1.09) H 02/06/18 17:02 - ....Imaging EKG: Report Reviewed (Tele: Rate-controlled afib) Problem List - Problems (1) Atrial fibrillation with RVR Code(s): I48.91 - UNSPECIFIED ATRIAL FIBRILLATION (2) [id number] kidney injury Code(s): N17.9 - ACUTE KIDNEY FAILURE, UNSPECIFIED; N18.9 - CHRONIC KIDNEY DISEASE, UNSPECIFIED Qualifiers: Acute renal failure type: unspecified Chronic kidney disease stage: unspecified stage Qualified Code(s): N17.9 - Acute kidney failure, unspecified ; N18.9 - Chronic kidney disease, unspecified (3) Demand ischemia Code(s): I24.8 - OTHER FORMS OF ACUTE ISCHEMIC HEART DISEASE (4) Hypercalcemia Code(s): E83.52 - HYPERCALCEMIA (5) Nonadherence to medication Code(s): Z91.14 - PATIENT'S OTHER NONCOMPLIANCE WITH MEDICATION REGIMEN (6) Paraproteinemia Code(s): D89.2 - HYPERGAMMAGLOBULINEMIA, UNSPECIFIED (7) Anticoagulant long-term use Code(s): Z79.01 - SNF (CURRENT) USE OF ANTICOAGULANTS (8) Chronic thromboembolic disease Code(s): I74.9 - EMBOLISM AND THROMBOSIS OF UNSPECIFIED ARTERY (9) Coronary artery disease Code(s): I25.10 - ATHSCL HEART DISEASE OF [place] CORONARY ARTERY W/O ANG PCTRS Qualifiers: Coronary Disease-Associated Artery/Lesion type: [place] artery [place] vs. transplanted heart: [place] heart Associated angina: without angina Qualified Code(s): I25.10 - Atherosclerotic heart disease of [place] coronary artery without angina pectoris (10) Diastolic dysfunction without heart failure Code(s): I51.9 - HEART DISEASE, UNSPECIFIED (11) HTN (hypertension) Code(s): I10 - ESSENTIAL (PRIMARY) HYPERTENSION Qualifiers: Hypertension type: essential hypertension Qualified Code(s): I10 - Essential (primary) hypertension (12) Hypertrophic cardiomyopathy Code(s): I42.2 - OTHER HYPERTROPHIC CARDIOMYOPATHY (13) Hyperlipidemia Code(s): E78.5 - HYPERLIPIDEMIA, UNSPECIFIED Qualifiers: Hyperlipidemia type: pure hypercholesterolemia Qualified Code(s): E78.00 - Pure hypercholesterolemia, unspecified; E78.0 - Pure hypercholesterolemia Assessment/Plan R&LHc at [facility] 04/20/2016 showing nonobstructive CAD, severe LV apical hypertrophic cardiomyopathy, mildly elevated right sided pressures, Mynx deployed right [employer] access site. 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 Echocardiogram: 10/18/2017 Mod cLVH, severe PURVI, mod TR RVSP 50-60 mmHg, mod- severe MR Echocardiogram: 01/23/2018 Normal LV size with hyperdynamic LVEF 75%, mild BSH, normal RV size and fxn, severe LAE, mod-severe MR, mod TR 1. Toxic metabolic encephelopathy, r/o CVA while off NOAC, r/o sepsis 2. Acute on CKD (pre-renal) resolving 3. Hypercalcemia, paraproteinemia-> possible multiple myeloma 4. History of bilateral SFA occlusion post thrombectomy, referable to embolic disease related to persistent atrial fibrillation with [id number] score of 6, history of poor compliance with anticoagulation and medical F/U 5. Non obstructive CAD on R&LHc coronary angiography with demand ischemia 6. LV diastolic dysfunction related to apical hypertrophic cardiomyopathy, subendocardial ischemia, compensated/euvolemic 7. Persistent atrial fibrillation [id number] score of 6 on Xarelto 20 qd 8. Labile HTN 9. Poor compliance with medical therapy administration and medical F/U 10. Tobacco abuse 11. ETOH dependence PLAN: 1. Heparin gtt for now while off Xarelto 15 qd (renal dosing) 2. IV Lopressor as hemodynamics tolerate 3. Hematology input, SPEP, UPEP pending 4. Judicious Clinimix with monitor renal recovery, renal input appreciated, check PTH, ruled out obstructive uropathy 5. Empiric abx course pending C&S 6. NGT for enteral feeds if prolonged NPO 7. Calcitonin per renal
[2018-02-11] MEDS: VANCOMYCIN 1 GRAM (PRE-DOCKED) 1,000 MG/250 ML BAG IVPB SCH (20:13)
[2018-02-12] MEDS: HEPARIN INFUSION - 25,000 UNITS/500 ML INFUS.BAG IVPB SCH ×2 (01:35→05:56)
[2018-02-12] MEDS: METOPROLOL TARTRATE 5 MG/5 ML VIAL IVPUSH SCH ×3 (05:55→22:38)
[2018-02-12] MEDS: AMINO ACIDS 4.25%/D5W 1,000 ML IV SCH ×2 (05:56→10:06)
[2018-02-12 07:29] LABS: BASO % 0.5 % (0-2.0); EOS % 1.1 % (0-4.5); MCH 32.1 pg (25.7-33.7); MCHC 35.8 g/dl (32.0-35.9); MEAN CELL VOLUME 89.7 fl (80-96); NEUT % 70.4 % (42.8-82.8); PLATELET COUNT 217 K/MM3 (134-434); RBC 2.79 M/mm3 (4.00-5.60); RDW 15.7 % (11.9-15.9); WHITE BLOOD COUNT 4.4 K/mm3 (4.0-10.0)
[2018-02-12 08:28] LABS: ALK PHOS 62 U/L (45-117); ANION GAP 7 MMOL/L (8-16); BILIRUBIN,TOTAL 0.3 mg/dL (0.2-1); BLOOD UREA NITROGEN 55 mg/dL (7-18); CALCIUM 9.5 mg/dL (8.5-10.1); CHLORIDE 110 mmol/L (98-107); CO2 19 mmol/L (21-32); GLUCOSE,RANDOM 104 mg/dL (74-106); MAGNESIUM 1.8 mg/dL (1.8-2.4); PHOSPHOROUS 3.5 mg/dL (2.5-4.9); POTASSIUM 4.1 mmol/L (3.5-5.1); SGOT/AST 39 U/L (15-37); SGPT/ALT 17 U/L (13-61); SODIUM 136 mmol/L (136-145); TOT PROT 10.9 g/dl (6.4-8.2)
[2018-02-12] MEDS ORDERED: cefTRIAXone SODIUM 1 GM VIAL ONE (09:54)
[2018-02-12] MEDS ORDERED: DEXTROSE 5%-WATER - 50 ML IVPB ONE ×2 (09:54→18:37)
[2018-02-12] MEDS: CEFTRIAXONE 1 GM in DEXTROSE 5%-WATER - 50 ML IVPB SCH (10:06)
[2018-02-12] MEDS: THIAMINE HCL 100 MG TABLET (FP) PO SCH (10:07)
--- NOTE | 2018-02-12 10:14 | PN ---
Progress Note, Physician History of Present Illness: Sensorium still altered, somnolent, oral intake held, continuing on IV meds and Clinimix. - Current Medication List Current Medications: Active Medications Acetaminophen (Tylenol Suppository -) 650 mg [place] Q6H PRN PRN Reason: FEVER Heparin Sodium (Porcine) (Heparin -) 1,000 unit IVPUSH PRN PRN PRN Reason: Heparin Heparin Sodium (Porcine) (Heparin -) 5,000 unit IVPUSH PRN PRN PRN Reason: Heparin Last Admin: 02/08/18 15:15 Dose: 5,000 unit Ceftriaxone Sodium 1 gm/ (Dextrose) 50 mls @ 100 mls/hr IVPB DAILY [facility]; Protocol Last Admin: 02/12/18 10:06 Dose: 100 mls/hr Vancomycin HCl (Vancomycin (Pre-Docked)) 1,000 mg in 250 mls @ 166.667 mls/hr IVPB Q24H [facility]; Protocol Last Admin: 02/11/18 20:13 Dose: 166.667 mls/hr Heparin Sodium/Dextrose (Heparin Infusion -) 25,000 units in 500 mls @ 16 mls/ hr IVPB TITR [facility]; Protocol Last Admin: 02/12/18 05:56 Dose: Not Given Amino Acids (Clinimix -) 1,000 mls @ 84 mls/hr IV Q12H [facility] Last Admin: 02/12/18 10:06 Dose: Not Given Metoprolol Tartrate (Lopressor Injection -) 5 mg IVPUSH Q8H [facility] Last Admin: 02/12/18 05:55 Dose: 5 mg Thiamine HCl (Vitamin B1 -) 100 mg PO DAILY [facility] Last Admin: 02/12/18 10:07 Dose: Not Given - Objective Vital Signs: Vital Signs Temperature 98.9 F 02/12/18 06:04 Pulse Rate 101 H 02/12/18 06:04 Respiratory Rate 18 02/12/18 06:04 Blood Pressure 133/79 02/12/18 06:04 O2 Sat by Pulse Oximetry (%) 98 02/11/18 21:00 Constitutional: Yes: No Distress, Calm, Thin Neck: Yes: Supple Cardiovascular: Yes: Pulse Irregular Respiratory: Yes: Regular, Diminished, On Nasal O2 Gastrointestinal: Yes: Soft, Hypoactive Bowel Sounds Edema: No Labs: CBC, BMP 02/12/18 06:35 02/12/18 06:35 INR, PTT INR 1.33 (0.83-1.09) H 02/06/18 17:02 - ....Imaging EKG: Report Reviewed (Tele: Rate-controlled afib) Problem List - Problems (1) Atrial fibrillation with RVR Code(s): I48.91 - UNSPECIFIED ATRIAL FIBRILLATION (2) Apmpq-bp-ltrmite kidney injury Code(s): N17.9 - ACUTE KIDNEY FAILURE, UNSPECIFIED; N18.9 - CHRONIC KIDNEY DISEASE, UNSPECIFIED Qualifiers: Acute renal failure type: unspecified Chronic kidney disease stage: unspecified stage Qualified Code(s): N17.9 - Acute kidney failure, unspecified ; N18.9 - Chronic kidney disease, unspecified (3) Demand ischemia Code(s): I24.8 - OTHER FORMS OF ACUTE ISCHEMIC HEART DISEASE (4) Hypercalcemia Code(s): E83.52 - HYPERCALCEMIA (5) Nonadherence to medication Code(s): Z91.14 - PATIENT'S OTHER NONCOMPLIANCE WITH MEDICATION REGIMEN (6) Paraproteinemia Code(s): D89.2 - HYPERGAMMAGLOBULINEMIA, UNSPECIFIED (7) Anticoagulant long-term use Code(s): Z79.01 - SENIOR CARE (CURRENT) USE OF ANTICOAGULANTS (8) Chronic thromboembolic disease Code(s): I74.9 - EMBOLISM AND THROMBOSIS OF UNSPECIFIED ARTERY (9) Coronary artery disease Code(s): I25.10 - ATHSCL HEART DISEASE OF [place] CORONARY ARTERY W/O ANG PCTRS Qualifiers: Coronary Disease-Associated Artery/Lesion type: [place] artery [place] vs. transplanted heart: [place] heart Associated angina: without angina Qualified Code(s): I25.10 - Atherosclerotic heart disease of [place] coronary artery without angina pectoris (10) Diastolic dysfunction without heart failure Code(s): I51.9 - HEART DISEASE, UNSPECIFIED (11) HTN (hypertension) Code(s): I10 - ESSENTIAL (PRIMARY) HYPERTENSION Qualifiers: Hypertension type: essential hypertension Qualified Code(s): I10 - Essential (primary) hypertension (12) Hypertrophic cardiomyopathy Code(s): I42.2 - OTHER HYPERTROPHIC CARDIOMYOPATHY (13) Hyperlipidemia Code(s): E78.5 - HYPERLIPIDEMIA, UNSPECIFIED Qualifiers: Hyperlipidemia type: pure hypercholesterolemia Qualified Code(s): E78.00 - Pure hypercholesterolemia, unspecified; E78.0 - Pure hypercholesterolemia Assessment/Plan R&LHc at [facility] 04/20/2016 showing nonobstructive CAD, severe LV apical hypertrophic cardiomyopathy, mildly elevated right sided pressures, Mynx deployed right [employer] [place] [employer] access site. 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 Echocardiogram: 10/18/2017 Mod cLVH, severe PURVI, mod TR RVSP 50-60 mmHg, mod- severe MR Echocardiogram: 01/23/2018 Normal LV size with hyperdynamic LVEF 75%, mild BSH, normal RV size and fxn, severe LAE, mod-severe MR, mod TR 1. Toxic metabolic encephelopathy, r/o CVA while off NOAC, r/o sepsis 2. Acute on CKD (pre-renal) resolving 3. Hypercalcemia, paraproteinemia-> possible multiple myeloma 4. History of bilateral SFA occlusion post thrombectomy, referable to embolic disease related to persistent atrial fibrillation with [id number] score of 6, history of poor compliance with anticoagulation and medical F/U 5. Non obstructive CAD on R&LHc coronary angiography with demand ischemia 6. LV diastolic dysfunction related to apical hypertrophic cardiomyopathy, subendocardial ischemia, compensated/euvolemic 7. Persistent atrial fibrillation [id number] score of 6 on Xarelto 20 qd 8. Labile HTN 9. Poor compliance with medical therapy administration and medical F/U 10. Tobacco abuse 11. ETOH dependence PLAN: 1. Heparin gtt for now while off Xarelto 15 qd (renal dosing) 2. IV Lopressor as hemodynamics tolerate 3. Hematology input, SPEP, UPEP pending 4. Judicious Clinimix with monitor renal recovery, renal input appreciated, check PTH, ruled out obstructive uropathy 5. Empiric abx course pending C&S 6. NGT for enteral feeds as prolonged NPO 7. Calcitonin per renal
--- NOTE | 2018-02-12 10:43 | CONSULT ---
Consult Consult Specialty:: Heme/Onc Referred by:: Dr. Serna Reason for Consultation:: Hypercalcemia - History of Present Illness Chief Complaint: sent to hospital for MELITA History of Present Illness: 77M PMH of A fb CAD CKD HTn HLD PVD s/p arterial stent history of alcohol abuse presents to the hospital after neighbors found patient down. Patiet was recently discharged form the hospital and was found with hospital wristband on per chart. Patient is awake but not responding and history could not be taken. Heme/Onc consulted for hypercalcemia and concern for multiple myelom. Patient had an observed M spike on last admission and hyperproteinemia on SPEP. patient also presents with acute on chronic kidney injury. FeNa 2.1% consistent with tubular injury. Hypercalcemia treated with calcitonin by nephrology - History Source History Provided By: Medical Record Limitations to Obtaining History: Unresponsive - Past Medical History Cardio/Vascular: Yes: AFIB, HTN, OK Renal/: Yes: Renal Failure, Renal Inusuff Additional Medical History: peripheral arterial diseases/p stent in LLE - Past Surgical History Past Surgical History: Yes: Hernia Repair - Alcohol/Substance Use Hx Alcohol Use: Yes History of Substance Use: reports: None - Smoking History Smoking history: Former smoker Have you smoked in the past 12 months: No Aproximately how many cigarettes per day: 10 If you are a former smoker, when did you quit?: 04.06.16 Home Medications - Allergies Allergies/Adverse Reactions: Allergies Allergy/AdvReac Type Severity Reaction Status Date / Time valsartan Allergy Severe Verified 02/06/18 16:47 - Home Medications Home Medications: Ambulatory Orders Atorvastatin Ca [Lipitor] 40 mg PO HS #30 tablet 10/19/17 Rivaroxaban [Xarelto -] 20 mg PO DAILY@1800 #30 tablet 10/19/17 Carvedilol [Coreg -] 6.25 mg PO BID #60 tablet 01/24/18 Family Disease History - Family Disease History Family History: Unable to Obtain Review of Systems Findings/Remarks: Patient altered and unresponsive Physical Exam Vital Signs: Vital Signs Temperature 98.9 F 02/12/18 06:04 Pulse Rate 101 H 02/12/18 06:04 Respiratory Rate 18 02/12/18 06:04 Blood Pressure 133/79 02/12/18 06:04 O2 Sat by Pulse Oximetry (%) 98 02/11/18 21:00 Constitutional: Yes: Other (lying in bed. mouth breathing. eyes open. does not respond to verbal stimuli. Responds to painful stimulus.) Eyes: Yes: PERRL, Other (senile arcus blaterally) HENT: Yes: Atraumatic, Normocephalic, Other (dry mouth) Neck: Yes: Supple, Trachea Midline. No: Lymphadenopathy Cardiovascular: Yes: Pulse Irregular Respiratory: Yes: CTA Bilaterally Gastrointestinal: Yes: Normal Bowel Sounds, Soft Musculoskeletal: Yes: Other (no inguinal lymphadenopathy) Edema: No Neurological: Yes: Other (sensation in tact given grimacing when touching all extremities. able to move arms sponatenously. Moves lower extremities-moves his legs away from painful stimuli. Does not follow commands. Lying in bed with eyes spontaneously opening and closing.) Labs: CBC, BMP 02/12/18 06:35 02/12/18 06:35 Imaging - Results Chest X-ray: Report Reviewed, Image Reviewed X-ray: Report Reviewed, Image Reviewed Cat Scan: Report Reviewed, Image Reviewed Ultrasound: Report Reviewed Assessment/Plan 77M with multiple medical problems presents to the hospital after being found down by neighbors found to have MELITA and hypercalcemia with altered mental status. Problem List: Altered mental status toxic metabolic encephalopathy Hypercalcemia likely from malignancy MELITA on CKD History of alcohol abuse HTN HLD CAD Afib diastolic dysfunction troponinemia Hypertrophic cardiomypoathy (apical) Plan: concern for multiple myeloma given hypercalcemia worsening renal failure and hyperproteinemia on last SPEP Corrected calcium today is 11.9-treated with calcitonin by npehrology no bisphosphonates given kidney failure SPEP sent Will send UPEP Will send [place]/lambda light chains Will send immunoglobulins IgG IgA IgM Will order bone (metastatic) survey and if negative will get Bone scan. Of note Bone scan may not show any lesions if it is from multiple myeloma but will sold solid tumors Can consider MRI of C/T/L spine if patient stops moving lower extremities or concern for lytic lesions of the spine. At this time the patient is moving his lower extremities so will hold off for now. PTH, PTHrP, Vit D pending SPEP pending Will follow - thak you for this consult
--- NOTE | 2018-02-12 11:13 | PN ---
Progress Note (short form) - Note Progress Note: Renal follow up for Hypercalcemia/MELITA Pt seen and examined at the bedside awakens to verbal stimuli but lethagic no noticable change in MS from yesterday to today no overnight events on Clinimix no fever, chills pt is non-oliguric and voiding with catheter Vital Signs Temperature 98.9 F 02/12/18 06:04 Pulse Rate 101 H 02/12/18 06:04 Respiratory Rate 18 02/12/18 06:04 Blood Pressure 133/79 02/12/18 06:04 O2 Sat by Pulse Oximetry (%) 98 02/11/18 21:00 Intake & Output 02/10/18 02/11/18 02/11/18 02/12/18 00:59 00:59 23:59 23:59 Intake Total 1318 Output Total 1800 Balance -482 NAD neck supple RRR DEc BS, no overt rales No Le edema no bladder distension CBC, BMP 02/12/18 06:35 02/12/18 06:35 Laboratory Tests 02/12/18 02/12/18 06:35 06:35 MCV 89.7 Calcium 9.5 Phosphorus 3.5 Magnesium 1.8 Albumin 1.0 L Current Medications Acetaminophen (Tylenol Suppository -) 650 mg [place] Q6H PRN PRN Reason: FEVER Heparin Sodium (Porcine) (Heparin -) 1,000 unit IVPUSH PRN PRN PRN Reason: Heparin Heparin Sodium (Porcine) (Heparin -) 5,000 unit IVPUSH PRN PRN PRN Reason: Heparin Last Admin: 02/08/18 15:15 Dose: 5,000 unit Ceftriaxone Sodium 1 gm/ (Dextrose) 50 mls @ 100 mls/hr IVPB DAILY [facility]; Protocol Last Admin: 02/12/18 10:06 Dose: 100 mls/hr Vancomycin HCl (Vancomycin (Pre-Docked)) 1,000 mg in 250 mls @ 166.667 mls/hr IVPB Q24H [facility]; Protocol Last Admin: 02/11/18 20:13 Dose: 166.667 mls/hr Heparin Sodium/Dextrose (Heparin Infusion -) 25,000 units in 500 mls @ 16 mls/ hr IVPB TITR [facility]; Protocol Last Admin: 02/12/18 05:56 Dose: Not Given Amino Acids (Clinimix -) 1,000 mls @ 84 mls/hr IV Q12H [facility] Last Admin: 02/12/18 10:06 Dose: Not Given Metoprolol Tartrate (Lopressor Injection -) 5 mg IVPUSH Q8H [facility] Last Admin: 02/12/18 05:55 Dose: 5 mg Thiamine HCl (Vitamin B1 -) 100 mg PO DAILY [facility] Last Admin: 02/12/18 10:07 Dose: Not Given 77 year old gentleman with hx of CKD, Afib on A/C, CAD, CKD, Hypertension, Hyperlipidemia, PVD who presented with AMS/Confusion and found to have MELITA. #MELITA (FeNa was 2.1% indicating tubular injury, US showed no stones or obstruction) #AMS of unclear etiology (metabolic encephalopathy) #Anemia #Hypercalcemia of Malignancy (PTH is low) #Hyperdense lesion on US of the kidney Renal function with mild improvement thus far Pt is non-oliguric with catheter in place do no suspect that renal insufficiency to this degree would be cause in mental status changes Corrected Ca today is 11.9, s/p calcitionin x 2 yesterday no change in MS with mild improvement in Ca high suspicion for malignancy given hypercalcemia with low pth, elevated protein levels Oncology to see pt today SPEP is pending prognosis remains guarded Check CXR today Mack Miller DO
--- NOTE | 2018-02-12 11:33 | PN ---
Progress Note, Physician Chief Complaint: AMS Unresponsiveness History of Present Illness: NAD still lethargic, unarousable - Current Medication List Current Medications: Active Medications Acetaminophen (Tylenol Suppository -) 650 mg [place] Q6H PRN PRN Reason: FEVER Heparin Sodium (Porcine) (Heparin -) 1,000 unit IVPUSH PRN PRN PRN Reason: Heparin Heparin Sodium (Porcine) (Heparin -) 5,000 unit IVPUSH PRN PRN PRN Reason: Heparin Last Admin: 02/08/18 15:15 Dose: 5,000 unit Ceftriaxone Sodium 1 gm/ (Dextrose) 50 mls @ 100 mls/hr IVPB DAILY [facility]; Protocol Last Admin: 02/12/18 10:06 Dose: 100 mls/hr Vancomycin HCl (Vancomycin (Pre-Docked)) 1,000 mg in 250 mls @ 166.667 mls/hr IVPB Q24H [facility]; Protocol Last Admin: 02/11/18 20:13 Dose: 166.667 mls/hr Heparin Sodium/Dextrose (Heparin Infusion -) 25,000 units in 500 mls @ 16 mls/ hr IVPB TITR [facility]; Protocol Last Admin: 02/12/18 05:56 Dose: Not Given Amino Acids (Clinimix -) 1,000 mls @ 84 mls/hr IV Q12H [facility] Last Admin: 02/12/18 10:06 Dose: Not Given Metoprolol Tartrate (Lopressor Injection -) 5 mg IVPUSH Q8H [facility] Last Admin: 02/12/18 05:55 Dose: 5 mg Thiamine HCl (Vitamin B1 -) 100 mg PO DAILY [facility] Last Admin: 02/12/18 10:07 Dose: Not Given - Objective Vital Signs: Vital Signs Temperature 98.9 F 02/12/18 06:04 Pulse Rate 101 H 02/12/18 06:04 Respiratory Rate 18 02/12/18 06:04 Blood Pressure 133/79 02/12/18 06:04 O2 Sat by Pulse Oximetry (%) 98 02/11/18 21:00 Constitutional: Yes: Well Nourished, No Distress, Calm Cardiovascular: Yes: Pulse Irregular Respiratory: Yes: Regular Gastrointestinal: Yes: Normal Bowel Sounds, Soft Musculoskeletal: Yes: WNL Extremities: Yes: WNL Edema: No Peripheral Pulses WNL: Yes Neurological: Yes: Lethargy Labs: CBC, BMP 02/12/18 06:35 02/12/18 06:35 INR, PTT INR 1.33 (0.83-1.09) H 02/06/18 17:02 Problem List - Problems (1) MELITA (acute kidney injury) Assessment/Plan: -Nephrology on board -IVF -Cr Improving -monitor trend -U/S renal/bladder unremarkable Code(s): N17.9 - ACUTE KIDNEY FAILURE, UNSPECIFIED (2) Atrial fibrillation with RVR Assessment/Plan: -On heparin drip -rate controlled -cardiology on board -Tele monitor Code(s): I48.91 - UNSPECIFIED ATRIAL FIBRILLATION (3) Sepsis Assessment/Plan: -upon admission -ID on board -Cultures: Microbiology 02/06/18 17:02 Blood - Peripheral Venous Blood Culture - Final NO GROWTH AFTER 5 DAYS INCUBATION 02/06/18 17:02 Blood - Peripheral Venous Blood Culture - Final NO GROWTH AFTER 5 DAYS INCUBATION 02/06/18 17:02 Urine - Urine - Catheterized Urine Culture - Final NO GROWTH OBTAINED 02/07/18 19:15 Nasopharyngeal Swab Influenza Types A,B Antigen - Final 02/07/18 19:15 Nasopharyngeal Swab - Final -On IV ceftriaxone Code(s): A41.9 - SEPSIS, UNSPECIFIED ORGANISM (4) Toxic metabolic encephalopathy Code(s): G92 - TOXIC ENCEPHALOPATHY (5) Altered mental status Assessment/Plan: -CT head x 2 negative -Seen by Neurology -MRI brain? -Cultures so far negative -Still on IVF Code(s): R41.82 - ALTERED MENTAL STATUS, UNSPECIFIED (6) Anemia Assessment/Plan: chronic, at baseline -Check stool OB -Iron profile, B12, thyroid profile Code(s): D64.9 - ANEMIA, UNSPECIFIED
--- NOTE | 2018-02-12 11:57 | PN ---
Progress Note, GERIATRICIAN - Note Progress Note: On 02/09 Pt was immediately arousable to his name. Speaking but imprecise with impaired intelligibility. Following commands to lift arm. Right arm seems weaker than left but difficult to determine. Upper airway congestion/ cough. Today, more lethargic, non vocal/non verbal, eyes open at times but poor eye contact. Mouth breathing. Oral dryness. Pulling foot away from me when assessing. Head CT 02/11 no acute stroke Laboratory Tests 02/12/18 06:35 WBC 4.4 f/u Neurology. Consider NGT feedings?
[2018-02-12 14:18] LABS: ANISOCYTOSIS 1+; CORRECTED WBC 3.96 K/mm3; MACROCYTOSIS 0; PLATELET ESTIMATE NORMAL; ROULEAU 1+
[2018-02-12] MEDS ORDERED: FUROSEMIDE 100 MG/10 ML INJECTABLE VIAL IVPB ONE (16:19)
[2018-02-12] MEDS ORDERED: FUROSEMIDE 40 MG/4 ML INJECTABLE VIAL ONE (16:19)
--- NOTE | 2018-02-12 16:36 | RAPID ---
<Rock Cunningham - Last Filed: 02/13/18 16:11> Physical Examination Vital Signs: Vital Signs Temperature 99.2 F 02/12/18 14:00 Pulse Rate 104 H 02/12/18 14:00 Respiratory Rate 21 H 02/12/18 14:00 Blood Pressure 125/82 02/12/18 14:00 O2 Sat by Pulse Oximetry (%) 94 L 02/12/18 09:00 Labs: CBC, BMP 02/12/18 06:35 02/12/18 06:35 Rapid Response - Rapid Response Assessment: At 16:14 rapid response was called for Pt. that was already non-repsonsive on admission but now found to be desaturating. Pt. was on Clinimix 84ml/hr. V/S at that time BP: 145/88 HR:147, O2 sat 87%. Pt. was bag masked until Anesthesia arrived. Pt. intubated at 16:31. 80mg Lasix was pushed. ABG, CXR, EKG, Trops ordered. Pt. already on Ceftriaxone and Vancomycin. PE. Lungs were bibasilar crackles before intubation, and tachycardic. After intubation bilateral breath sounds were heard. Pt. after intubation VS BP: 84/52 HR: 100, O2: 94. Pt. transferred to ICU. <Nas Gerard - Last Filed: 02/13/18 16:20> Physical Examination Vital Signs: Findings/Remarks: of notw when arrived to room, patient was unresponsive . it was reported by RN that patient was not responsive since admission . Labs: CBC, BMP 02/13/18 05:30 02/13/18 05:30 Critical Care Total Critical Care Time (in minutes): 40 Critical Care Statement: The care of this patient involved high complexity decision making to prevent further life threatening deterioration of the patient 's condition and/or to evaluate & treat vital organ system(s) failure or risk of failure.
--- NOTE | 2018-02-12 16:48 | PROC ---
Intubation - Intubation Reason for Intubation: Respiratory Insufficiency Time of Intubation: 16:20 Intubation Method: orotracheal Blade used: Mac (3) Tube Size (cm): 8.0 Tube position @ lip (cm): 21 Tube position confirmed by: Direct visualization, CO2 detector, Chest x-ray ( CXR pending), Breath sounds Breath Sounds after Intubation: left greater than right (but improved after adjustment of tube) Post Intubation Xray: Yes (pending) Remarks: Anesthesiology STAT Called re. pt. with respiratory deterioration. Pt. also with decreased responsiveness and reported suspicion of aspiration . Admitted with respiratory compromise and decreased mental status. Pt. positioned in bed. BMV assumed, SpO2 improved to 100% with assistance. Propofol 50mg IV, followed by Succinylcholine 100mg IV. MAC 3 with grade 2 view after copious secretions suctioned. ETT passed with ease. Color change seen with carboximeter. VSS.
--- NOTE | 2018-02-12 16:52 | CONSULT ---
Consult - text type - Consultation Consultation Note: This is a 77 year old gentleman with hx of CKD, Afib on A/C, CAD, CKD, Hypertension, Hyperlipidemia, PVD who presented with AMS/Confusion and found to have MELITA. Pt was brought into the ER by EMS after his neighbors became concerned about him. CT head was negative Being managed for hypercalcemia/MELITA/? pneumonia He was desaturating and in resp. disteress and was intubated PMHx: as above Allergies: NKDA Home Medications Medication Instructions Recorded Atorvastatin Ca [Lipitor] 40 mg PO HS #30 tablet 10/19/17 Rivaroxaban [Xarelto -] 20 mg PO DAILY@1800 #30 tablet 10/19/17 Carvedilol [Coreg -] 6.25 mg PO BID #60 tablet 01/24/18 Last Vital Signs Temp Pulse Resp BP Pulse Ox 98.1 F 106 H 18 96/70 100 02/12/18 20:00 02/12/18 20:00 02/12/18 20:35 02/12/18 20:00 02/12/18 17:26 Intubated Unresponsive CTA, no rales or wheeze soft NT/ND no LE edema, clubbing or cyanosis Abnormal Lab Results 02/12/18 02/12/18 02/12/18 06:35 06:35 06:35 RBC 2.79 L Hgb 9.0 L Hct 25.0 L RDW Monocytes % Monocytes % (Manual) Myelocytes % (Man) Nucleated RBC % 9 H Metamyelocytes 4 H D PT with INR INR PTT (Actin FS) 64.4 H ABG pH ABG pO2 at Pt Temp ABG HCO3 ABG O2 Sat (Measured) ABG Base Excess Sodium Chloride 110 H Carbon Dioxide 19 L Anion Gap 7 L BUN 55 H Creatinine 2.0 H Random Glucose Lactic Acid Phosphorus Ferritin AST 39 H Troponin I Total Protein 10.9 H Albumin 1.0 L 02/12/18 02/12/18 02/12/18 12:55 16:36 16:40 RBC 3.04 L Hgb 9.7 L Hct 27.8 L RDW 16.0 H Monocytes % 2.9 L Monocytes % (Manual) 0 L D Myelocytes % (Man) 3 H D Nucleated RBC % 8 H Metamyelocytes PT with INR INR PTT (Actin FS) ABG pH ABG pO2 at Pt Temp ABG HCO3 ABG O2 Sat (Measured) ABG Base Excess Sodium Chloride Carbon Dioxide Anion Gap BUN Creatinine Random Glucose Lactic Acid 2.1 H Phosphorus Ferritin 610.5 H AST Troponin I Total Protein Albumin 02/12/18 02/12/18 02/12/18 16:40 16:40 18:00 RBC Hgb Hct RDW Monocytes % Monocytes % (Manual) Myelocytes % (Man) Nucleated RBC % Metamyelocytes PT with INR 18.60 H INR 1.57 H PTT (Actin FS) 64.8 H ABG pH 7.29 L ABG pO2 at Pt Temp 323.0 H* ABG HCO3 17.8 L ABG O2 Sat (Measured) 99.4 H ABG Base Excess -7.7 L Sodium 132 L Chloride 108 H Carbon Dioxide 19 L Anion Gap 5 L BUN 59 H Creatinine 2.2 H Random Glucose 143 H Lactic Acid Phosphorus 5.1 H Ferritin AST 48 H Troponin I 0.55 H Total Protein 12.2 H Albumin 1.2 L Active Medications Generic Name Dose Route Start Last Admin Trade Name Freq PRN Reason Stop Dose Admin Acetaminophen 650 mg 02/08/18 05:44 02/12/18 18:10 Tylenol Suppository - MA 650 mg Q6H PRN Administration FEVER Heparin Sodium (Porcine) 1,000 unit 02/08/18 05:44 Heparin - IVPUSH PRN PRN Heparin Heparin Sodium (Porcine) 5,000 unit 02/08/18 05:44 02/08/18 15:15 Heparin - IVPUSH 5,000 unit PRN PRN Administration Heparin Ceftriaxone Sodium 1 gm/ 50 mls @ 100 mls/hr 02/07/18 11:45 02/12/18 10:06 Dextrose IVPB 100 mls/hr DAILY [facility] Administration Protocol Vancomycin HCl 1,000 mg in 250 mls @ 166.667 mls/hr 02/07/18 20:00 02/12/18 20:25 Vancomycin (Pre-Docked) IVPB 166.667 mls/hr Q24H [facility] Administration Protocol Heparin Sodium/Dextrose 25,000 units in 500 mls @ 16 mls/hr 02/08/18 05:45 05:56 Heparin Infusion - IVPB Not Given TITR [facility] Protocol 800 UNIT/HR Metoprolol Tartrate 5 mg 02/08/18 05:45 02/12/18 13:15 Lopressor Injection - IVPUSH 5 mg Q8H [facility] Administration Thiamine HCl 100 mg 02/06/18 22:12 02/12/18 10:07 Vitamin B1 - PO Not Given DAILY [facility] A/P 77 year old gentleman with hx of CKD, Afib on A/C, CAD, CKD, Hypertension, Hyperlipidemia, PVD who presented with AMS/Confusion and found to have MELITA. acute desaturation Clinical picture concerning for paraproteinemia check SFLCA/Quant. Imunoglobulins/SIFE/UPEP zometa for hypercalcemia concern for hyperviscosity causing altered mental status Total protein 12/albumin [address] Walker. PAtient has no family listed on chart will arrange for plasmaexchange Discussed with [facility] and house staff
[2018-02-12 17:02] LABS: BASO % 0.3 % (0-2.0); HEMATOCRIT 27.8 % (35.4-49); HEMOGLOBIN 9.7 GM/dL (11.7-16.9); LYMPH % 32.7 % (8-40); MCH 31.8 pg (25.7-33.7); MCHC 34.8 g/dl (32.0-35.9); MEAN CELL VOLUME 91.5 fl (80-96); MEAN PLT VOLUME 8.7 fl (7.5-11.1); MONO % 2.9 % (3.8-10.2); NEUT % 63.1 % (42.8-82.8); PLATELET COUNT 254 K/MM3 (134-434); RBC 3.04 M/mm3 (4.00-5.60); WHITE BLOOD COUNT 5.1 K/mm3 (4.0-10.0)
--- NOTE | 2018-02-12 17:22 | PN ---
Teaching Attending Note Name of Resident: Sebastián Oneil ATTENDING PHYSICIAN STATEMENT I saw and evaluated the patient. I reviewed the resident's note and discussed the case with the resident. I agree with the resident's findings and plan as documented. SUBJECTIVE: Patient seen and examined in the ICU. Clinical deterioration on the medical floor requiring intubation and mechanical ventilation. No pressors. Suspicion of hyperviscosity syndrome. Intake & Output 02/10/18 02/11/18 02/11/18 02/12/18 00:59 00:59 23:59 23:59 Intake Total 1318 Output Total 2600 Balance -1282 Last Vital Signs Temp Pulse Resp BP Pulse Ox 98.8 F 106 H 24 H 134/87 95 02/12/18 17:05 02/12/18 17:05 02/12/18 17:21 02/12/18 17:05 02/12/18 17:21 Active Medications Acetaminophen (Tylenol Suppository -) 650 mg ND Q6H PRN PRN Reason: FEVER Heparin Sodium (Porcine) (Heparin -) 1,000 unit IVPUSH PRN PRN PRN Reason: Heparin Heparin Sodium (Porcine) (Heparin -) 5,000 unit IVPUSH PRN PRN PRN Reason: Heparin Last Admin: 02/08/18 15:15 Dose: 5,000 unit Ceftriaxone Sodium 1 gm/ (Dextrose) 50 mls @ 100 mls/hr IVPB DAILY [facility]; Protocol Last Admin: 02/12/18 10:06 Dose: 100 mls/hr Vancomycin HCl (Vancomycin (Pre-Docked)) 1,000 mg in 250 mls @ 166.667 mls/hr IVPB Q24H [facility]; Protocol Last Admin: 02/11/18 20:13 Dose: 166.667 mls/hr Heparin Sodium/Dextrose (Heparin Infusion -) 25,000 units in 500 mls @ 16 mls/ hr IVPB TITR [facility]; Protocol Last Admin: 02/12/18 05:56 Dose: Not Given Amino Acids (Clinimix -) 1,000 mls @ 84 mls/hr IV Q12H [facility] Last Admin: 02/12/18 10:06 Dose: Not Given Metoprolol Tartrate (Lopressor Injection -) 5 mg IVPUSH Q8H [facility] Last Admin: 02/12/18 13:15 Dose: 5 mg Thiamine HCl (Vitamin B1 -) 100 mg PO DAILY [facility] Last Admin: 02/12/18 10:07 Dose: Not Given Constitutional: Yes: Intubated and sedated Cardiovascular: Yes: Pulse Irregular, AFib Respiratory: Yes: Intubated and sedated Gastrointestinal: Yes: Normal Bowel Sounds, Soft Musculoskeletal: Yes: WNL Extremities: Yes: WNL Edema: No Peripheral Pulses WNL: Yes Neurological: Yes: Sedated Labs: Laboratory Results - last 24 hr 02/07/18 02/12/18 02/12/18 13:00 06:35 06:35 WBC 4.4 Corrected WBC (auto) 3.96 RBC 2.79 L Hgb 9.0 L Hct 25.0 L MCV 89.7 MCH 32.1 MCHC 35.8 RDW 15.7 Plt Count 217 MPV 9.0 Absolute Neuts (auto) 3.1 Neutrophils % 70.4 Neutrophils % (Manual) 50.5 Band Neutrophils % 6.2 Lymphocytes % 24.0 Lymphocytes % (Manual) 28.9 Monocytes % 4.0 Monocytes % (Manual) 7 Eosinophils % 1.1 Eosinophils % (Manual) 1.1 Basophils % 0.5 Basophils % (Manual) 0.0 Myelocytes % (Man) 1 Promyelocytes % (Man) 0 Blast Cells % (Manual) 0 Nucleated RBC % 9 H Metamyelocytes 4 H D Hypochromia 0 Platelet Estimate Normal Platelet Comment Present Polychromasia 1+ Poikilocytosis 1+ Anisocytosis 1+ Microcytosis 1+ Macrocytosis 0 Rouleaux 1+ PT with INR INR PTT (Actin FS) 64.4 H Sodium Potassium Chloride Carbon Dioxide Anion Gap BUN Creatinine Creat Clearance w eGFR Random Glucose Lactic Acid Calcium Phosphorus Magnesium Ferritin Total Bilirubin AST ALT Alkaline Phosphatase Total Protein Albumin Vitamin B12 Ethylene Glycol None detected 02/12/18 02/12/18 02/12/18 06:35 12:55 16:36 WBC Corrected WBC (auto) RBC Hgb Hct MCV MCH MCHC RDW Plt Count MPV Absolute Neuts (auto) Neutrophils % Neutrophils % (Manual) Band Neutrophils % Lymphocytes % Lymphocytes % (Manual) Monocytes % Monocytes % (Manual) Eosinophils % Eosinophils % (Manual) Basophils % Basophils % (Manual) Myelocytes % (Man) Promyelocytes % (Man) Blast Cells % (Manual) Nucleated RBC % Metamyelocytes Hypochromia Platelet Estimate Platelet Comment Polychromasia Poikilocytosis Anisocytosis Microcytosis Macrocytosis Rouleaux PT with INR INR PTT (Actin FS) Sodium 136 Potassium 4.1 Chloride 110 H Carbon Dioxide 19 L Anion Gap 7 L BUN 55 H Creatinine 2.0 H Creat Clearance w eGFR 32.39 Random Glucose 104 Lactic Acid 2.1 H Calcium 9.5 Phosphorus 3.5 Magnesium 1.8 Ferritin 610.5 H Total Bilirubin 0.3 AST 39 H ALT 17 Alkaline Phosphatase 62 Total Protein 10.9 H Albumin 1.0 L Vitamin B12 431 Ethylene Glycol 02/12/18 02/12/18 16:40 16:40 WBC 5.1 Corrected WBC (auto) RBC 3.04 L Hgb 9.7 L Hct 27.8 L MCV 91.5 MCH 31.8 MCHC 34.8 RDW 16.0 H Plt Count 254 MPV 8.7 Absolute Neuts (auto) 3.2 Neutrophils % 63.1 Neutrophils % (Manual) Band Neutrophils % Lymphocytes % 32.7 D Lymphocytes % (Manual) Monocytes % 2.9 L Monocytes % (Manual) Eosinophils % 1.0 Eosinophils % (Manual) Basophils % 0.3 Basophils % (Manual) Myelocytes % (Man) Promyelocytes % (Man) Blast Cells % (Manual) Nucleated RBC % 8 H Metamyelocytes Hypochromia Platelet Estimate Platelet Comment Polychromasia Poikilocytosis Anisocytosis Microcytosis Macrocytosis Rouleaux PT with INR 18.60 H INR 1.57 H PTT (Actin FS) 64.8 H Sodium Potassium Chloride Carbon Dioxide Anion Gap BUN Creatinine Creat Clearance w eGFR Random Glucose Lactic Acid Calcium Phosphorus Magnesium Ferritin Total Bilirubin AST ALT Alkaline Phosphatase Total Protein Albumin Vitamin B12 Ethylene Glycol Problem List Acute Respiratory Failure R/O Aspiration MELITA (acute kidney injury) R/O Hyperviscosity Atrial Fibrillation with RVR R/O Sepsis AMS Anemia PLAN: AC Mode of vent Check ABG Follow Calcium: will be given Zometa AC Strict I & O D/C Clinimix Daily sedation vacation ABX coverage Rate control May need Plasmapheresis Dr Walker Critical care time spent in reviewing chart, evaluating patient and formulating plan - 36 minutes.
[2018-02-12 17:24] LABS: INR 1.57 (0.83-1.09); PROTHROMBIN TIME (PATIENT) 18.6 SEC (9.7-13.0)
[2018-02-12 17:26] LABS: ACTIVATED PTT 64.8 SECONDS (25.2-36.5)
[2018-02-12 18:02] LABS: ALBUMIN 1.2 g/dl (3.4-5.0); ALK PHOS 74 U/L (45-117); ANION GAP 5 MMOL/L (8-16); BILIRUBIN,TOTAL 0.2 mg/dL (0.2-1); BLOOD UREA NITROGEN 59 mg/dL (7-18); CALCIUM 9.4 mg/dL (8.5-10.1); CHLORIDE 108 mmol/L (98-107); CO2 19 mmol/L (21-32); CREATININE 2.2 mg/dL (0.55-1.3); GLUCOSE,RANDOM 143 mg/dL (74-106); MAGNESIUM 1.8 mg/dL (1.8-2.4); PHOSPHOROUS 5.1 mg/dL (2.5-4.9); POTASSIUM 5.1 mmol/L (3.5-5.1); SGOT/AST 48 U/L (15-37); SGPT/ALT 19 U/L (13-61); SODIUM 132 mmol/L (136-145); TOT PROT 12.2 g/dl (6.4-8.2)
[2018-02-12] MEDS ORDERED: PIPERACILLIN/TAZOB 2.25 GM 2.25 GM in DEXTROSE 5%-WATER - 50 ML IVPB ONE (18:06)
--- NOTE | 2018-02-12 18:07 | CONSULT ---
Consultation: CONSULT REQUEST: We have been asked to medically evaluate this patient for respiratory inssuficiency and oxygen desaturation. HISTORY OF PRESENT ILLNESS: Patient is intubated and not alert. History obtained from chart review. 77 yo m w a hx of A-Fib w RVR, Acute on chronic kidney injury, CAD w stents, hypercalcemia, medication non-adherence, paraproteinemia, thromboembolic disease , diastolic heart dysfunction without failure, HTN, HLD, hypertrophic cardiomyopathy is here after a rapid response. He was on the floors when it was noticed that he has respiratory insufficiency and was desaturating. REVIEW OF SYSTEMS: Unable to obtain due to clinical condition. PHYSICAL EXAMINATION Vital Signs - 24 hr 02/11/18 02/11/18 02/12/18 21:00 21:32 02:00 Temperature 97.9 F Pulse Rate 85 90 Respiratory 18 18 Rate Blood Pressure 147/76 107/71 O2 Sat by Pulse 98 Oximetry (%) 02/12/18 02/12/18 02/12/18 05:55 06:04 09:00 Temperature 98.9 F Pulse Rate 101 H 101 H Respiratory 18 21 H Rate Blood Pressure 133/79 133/79 O2 Sat by Pulse 94 L Oximetry (%) 02/12/18 02/12/18 02/12/18 10:00 13:15 14:00 Temperature 99 F 99.2 F Pulse Rate 91 H 104 H 104 H Respiratory 21 H 21 H Rate Blood Pressure 111/72 125/82 125/82 O2 Sat by Pulse Oximetry (%) 02/12/18 02/12/18 02/12/18 17:05 17:21 17:26 Temperature 98.8 F Pulse Rate 106 H Respiratory 26 H 24 H Rate Blood Pressure 134/87 O2 Sat by Pulse 95 100 Oximetry (%) GENERAL: Intubated in respiratory distress. HEAD: Normal with no signs of trauma. EYES: Pupils equal, round and reactive to light, sclera anicteric, conjunctiva clear. EARS, NOSE, THROAT: Ears normal, nares patent, oropharynx clear without exudates. Moist mucous membranes. NECK: Supple without lymphadenopathy, no JVD, or masses. LUNGS: Diffuse wheezes and rales bilaterally in both lung rodriguez. Abdominal breathing and significant accessory muscle use. HEART: tachycardic rate and irregular rhythm. ABDOMEN: Soft, normoactive bowel sounds, no guarding, no rebound, no masses. No hepatomegaly or splenomegaly. MUSCULOSKELETAL: Normal range of motion at all joints. No bony deformities or tenderness. UPPER EXTREMITIES: 2+ pulses, warm, well-perfused. No cyanosis. No clubbing. Cap refill <2 seconds. No peripheral edema. LOWER EXTREMITIES: 2+ pulses, warm, well-perfused. No calf tenderness. No peripheral edema. NEUROLOGICAL: Normoreflexic. ESTEPHANIE. SKIN: Warm, diaphoretic, normal turgor, no rashes or lesions noted. Laboratory Results - last 24 hr 02/07/18 02/12/18 02/12/18 13:00 06:35 06:35 WBC 4.4 Corrected WBC (auto) 3.96 RBC 2.79 L Hgb 9.0 L Hct 25.0 L MCV 89.7 MCH 32.1 MCHC 35.8 RDW 15.7 Plt Count 217 MPV 9.0 Absolute Neuts (auto) 3.1 Neutrophils % 70.4 Neutrophils % (Manual) 50.5 Band Neutrophils % 6.2 Lymphocytes % 24.0 Lymphocytes % (Manual) 28.9 Monocytes % 4.0 Monocytes % (Manual) 7 Eosinophils % 1.1 Eosinophils % (Manual) 1.1 Basophils % 0.5 Basophils % (Manual) 0.0 Myelocytes % (Man) 1 Promyelocytes % (Man) 0 Blast Cells % (Manual) 0 Nucleated RBC % 9 H Metamyelocytes 4 H D Hypochromia 0 Platelet Estimate Normal Platelet Comment Present Polychromasia 1+ Poikilocytosis 1+ Anisocytosis 1+ Microcytosis 1+ Macrocytosis 0 Rouleaux 1+ PT with INR INR PTT (Actin FS) 64.4 H Sodium Potassium Chloride Carbon Dioxide Anion Gap BUN Creatinine Creat Clearance w eGFR Random Glucose Lactic Acid Calcium Phosphorus Magnesium Ferritin Total Bilirubin AST ALT Alkaline Phosphatase Total Protein Albumin Vitamin B12 Ethylene Glycol None detected 02/12/18 02/12/18 02/12/18 06:35 12:55 16:36 WBC Corrected WBC (auto) RBC Hgb Hct MCV MCH MCHC RDW Plt Count MPV Absolute Neuts (auto) Neutrophils % Neutrophils % (Manual) Band Neutrophils % Lymphocytes % Lymphocytes % (Manual) Monocytes % Monocytes % (Manual) Eosinophils % Eosinophils % (Manual) Basophils % Basophils % (Manual) Myelocytes % (Man) Promyelocytes % (Man) Blast Cells % (Manual) Nucleated RBC % Metamyelocytes Hypochromia Platelet Estimate Platelet Comment Polychromasia Poikilocytosis Anisocytosis Microcytosis Macrocytosis Rouleaux PT with INR INR PTT (Actin FS) Sodium 136 Potassium 4.1 Chloride 110 H Carbon Dioxide 19 L Anion Gap 7 L BUN 55 H Creatinine 2.0 H Creat Clearance w eGFR 32.39 Random Glucose 104 Lactic Acid 2.1 H Calcium 9.5 Phosphorus 3.5 Magnesium 1.8 Ferritin 610.5 H Total Bilirubin 0.3 AST 39 H ALT 17 Alkaline Phosphatase 62 Total Protein 10.9 H Albumin 1.0 L Vitamin B12 431 Ethylene Glycol 02/12/18 02/12/18 16:40 16:40 WBC 5.1 Corrected WBC (auto) RBC 3.04 L Hgb 9.7 L Hct 27.8 L MCV 91.5 MCH 31.8 MCHC 34.8 RDW 16.0 H Plt Count 254 MPV 8.7 Absolute Neuts (auto) 3.2 Neutrophils % 63.1 Neutrophils % (Manual) Band Neutrophils % Lymphocytes % 32.7 D Lymphocytes % (Manual) Monocytes % 2.9 L Monocytes % (Manual) Eosinophils % 1.0 Eosinophils % (Manual) Basophils % 0.3 Basophils % (Manual) Myelocytes % (Man) Promyelocytes % (Man) Blast Cells % (Manual) Nucleated RBC % 8 H Metamyelocytes Hypochromia Platelet Estimate Platelet Comment Polychromasia Poikilocytosis Anisocytosis Microcytosis Macrocytosis Rouleaux PT with INR 18.60 H INR 1.57 H PTT (Actin FS) 64.8 H Sodium Potassium Chloride Carbon Dioxide Anion Gap BUN Creatinine Creat Clearance w eGFR Random Glucose Lactic Acid Calcium Phosphorus Magnesium Ferritin Total Bilirubin AST ALT Alkaline Phosphatase Total Protein Albumin Vitamin B12 Ethylene Glycol Active Medications Generic Name Dose Route Start Last Admin Trade Name Freq PRN Reason Stop Dose Admin Acetaminophen 650 mg 02/08/18 05:44 Tylenol Suppository - [place] Q6H PRN FEVER Heparin Sodium (Porcine) 1,000 unit 02/08/18 05:44 Heparin - IVPUSH PRN PRN Heparin Heparin Sodium (Porcine) 5,000 unit 02/08/18 05:44 02/08/18 15:15 Heparin - IVPUSH 5,000 unit PRN PRN Administration Heparin Ceftriaxone Sodium 1 gm/ 50 mls @ 100 mls/hr 02/07/18 11:45 02/12/18 10:06 Dextrose IVPB 100 mls/hr DAILY [facility] Administration Protocol Vancomycin HCl 1,000 mg in 250 mls @ 166.667 mls/hr 02/07/18 20:00 02/11/18 20:13 Vancomycin (Pre-Docked) IVPB 166.667 mls/hr Q24H [facility] Administration Protocol Heparin Sodium/Dextrose 25,000 units in 500 mls @ 16 mls/hr 02/08/18 05:45 05:56 Heparin Infusion - IVPB Not Given TITR [facility] Protocol 800 UNIT/HR Amino Acids 1,000 mls @ 84 mls/hr 02/09/18 08:45 02/12/18 10:06 Clinimix - IV Not Given Q12H [facility] Metoprolol Tartrate 5 mg 02/08/18 05:45 02/12/18 13:15 Lopressor Injection - IVPUSH 5 mg Q8H [facility] Administration Thiamine HCl 100 mg 02/06/18 22:12 02/12/18 10:07 Vitamin B1 - PO Not Given DAILY [facility] ASSESSMENT/PLAN: Assessment: 77 yo m w a hx of A-Fib w RVR, Acute on chronic kidney injury, CAD w stents, hypercalcemia, medication non-adherence, paraproteinemia, thromboembolic disease, diastolic heart dysfunction without failure, HTN, HLD, hypertrophic cardiomyopathy is here after a rapid response. He was on the floors when it was noticed that he has respiratory insufficiency and was desaturating. - He has been receiving vancomycin and Ceftriaxone. - Temperature rectally is 101 He is tachycardic, has diffuse rales/rhonchi and wheezes, and a very irregular tachycardic rhythm. Highest on the DD includes PNA vs other infection vs PNA resistant to vanc and ceftriaxone vs heart failure vs pulmonary edema vs Afib w RVR. Plan: ID consult, Step up Abx coverage to zosyn, Chest Xray, blood + urine cultures, lasix, Acetaminophen for fever and then re-assess. Plan: ID: - Rectal temp of 101 despite ceftriaxone and vancomycin. - Rales/Ronchi/wheezes heard on Lung auscultation - CXR shows pulmonary infiltrate, possible PNA vs empyema vs paramnemonic effusion - Stepping up Abx coverage to zosyn - Will call Dr. Pace Cardio: - Afib w RVR: Patient is receiving metoprolol 5 mg Q8H - diastolic dysfunction + hypertrophic cardiomyopathy - CAD with multiple stents Pulm: - Intubated - b/l diffuse wheezes/ronchi/rales - infiltrate on CXR: Will step up Abx to Zosyn - Received 80 Mg lasix today Renal: - Acute on Chronic kidney injury - BUN: 59 Cr:2.2. possibly Pre-renal etiology. Neuro: - Patient is not alert or oriented. He responds to painful stimuli. - Head CT showed no acute pathology Heme/Onc: - Patient has hypercalcemia - Paraproteinemia - Possible Multiple Myeloma: SPEP and UPEP sent. Pending results. Endo: - Hypercalcemia - Glucose wnl - Parathyroid hormone sent F/E/N: F: No standing fluids due to fluid overload in lungs E: Hypercalcemia. Will replete lytes PRN. N: Patient was receiving Clinimix. Will DC for now and make patient NPO during acute febrile illness/exacerbation Code Status: Full Code Dispo: We will continue to follow the patient. Thank you for this consultative opportunity. Visit type - Emergency Visit Emergency Visit: Yes ED Registration Date: 02/06/18 Care time: The patient presented to the Emergency Department on the above date and was hospitalized for further evaluation of their emergent condition. - New Patient This patient is new to me today: Yes Date on this admission: 02/12/18 - Critical Care Critical Care patient: Yes Total Critical Care Time (in minutes): 36 Critical Care Statement: The care of this patient involved high complexity decision making to prevent further life threatening deterioration of the patient 's condition and/or to evaluate & treat vital organ system(s) failure or risk of failure.
[2018-02-12 18:32] LABS: PLATELET ESTIMATE ADEQUATE
[2018-02-12 18:33] LABS: ARTERIAL BLOOD GAS BASE EXCESS -7.7 meq/l (-2-2); ARTERIAL BLOOD GAS PCO2 38.4 mmHg (35-45); ARTERIAL BLOOD GAS pH 7.29 (7.35-7.45)
[2018-02-12 18:34] LABS: ALLENS TEST POSITIVE; ARTERIAL BLD GAS O2 SATURATION 99.4 % (90-98.9)
[2018-02-12] MEDS ORDERED: PIPERACILLIN/TAZOBACTAM 2.25 GM VIAL IVPB ONE (18:37)
[2018-02-12] MEDS: VANCOMYCIN 1 GRAM (PRE-DOCKED) 1,000 MG/250 ML BAG IVPB SCH (20:25)
[2018-02-12] MEDS ORDERED: ZOLEDRONIC ACID 3 MG in SODIUM CHLORIDE 100 ML IVPB ONE (21:04)
[2018-02-12] MEDS ORDERED: PT OWN MED DRAWER 7, Y5N ONE (21:17)
[2018-02-12] MEDS ORDERED: ALBUMIN HUMAN 5% 500 ML IV SOLUTION IVPB ONE (22:45)
[2018-02-13 00:36] LABS: URINE APPEARANCE SLCLOUDY; URINE BILIRUBIN NEGATIVE (<2.0 mg/dL); URINE COLOR LTYELLOW; URINE GLUCOSE (UA) NEGATIVE (NEGATIVE); URINE KETONE NEGATIVE (NEGATIVE); URINE LEUK ESTERASE NEGATIVE (NEGATIVE); URINE NITRITE NEGATIVE (NEGATIVE); URINE PROTEIN NEGATIVE (NEGATIVE); URINE UROBILINOGEN NEGATIVE mg/dL (0.2-1.0)
[2018-02-13 00:38] LABS: EPI CELLS RARE /HPF (FEW); URINE BACTERIA FEW /hpf (NONE SEEN); URINE HYALINE CAST 17 /lpf; URINE MUCUS RARE
[2018-02-13] MEDS ORDERED: ALBUMIN HUMAN 5% 250 ML IV SOLUTION IVPB ONE (02:15)
[2018-02-13] MEDS: METOPROLOL TARTRATE 5 MG/5 ML VIAL IVPUSH SCH ×5 (05:45→21:40)
[2018-02-13] MEDS: HEPARIN INFUSION - 25,000 UNITS/500 ML INFUS.BAG IVPB SCH (05:47)
[2018-02-13 06:07] LABS: SERUM IRON SATURATION 29 % (15-55); TOTAL IRON BINDING CAPACITY 173 ug/dL (250-450); UIBC 123 ug/dL (111-343)
[2018-02-13 06:11] LABS: BASO % 0.3 % (0-2.0); EOS % 0.8 % (0-4.5); HEMATOCRIT 27.3 % (35.4-49); HEMOGLOBIN 9.5 GM/dL (11.7-16.9); LYMPH % 23.2 % (8-40); MCH 31.2 pg (25.7-33.7); MCHC 34.7 g/dl (32.0-35.9); MEAN CELL VOLUME 89.9 fl (80-96); MEAN PLT VOLUME 9.2 fl (7.5-11.1); MONO % 4.9 % (3.8-10.2); NEUT % 70.8 % (42.8-82.8); PLATELET COUNT 156 K/MM3 (134-434); RBC 3.04 M/mm3 (4.00-5.60); RDW 16.1 % (11.9-15.9)
[2018-02-13 06:32] LABS: INR 1.81 (0.83-1.09); PROTHROMBIN TIME (PATIENT) 21.5 SEC (9.7-13.0)
--- NOTE | 2018-02-13 06:37 | PN ---
Progress Note (short form) - Note Progress Note: Chief Complaint: Events noted, notes reviewed, remains intubated, remains in atrial fibrillation on A/C with Heparin History of Present Illness: Seen and examined in the ICU. Events noted, notes reviewed, remains intubated, remains in atrial fibrillation on A/C with Heparin [facility] coronary angiography performed 04/20/2016 revealed non-obstructive CAD, severe LV apical hypertrophic cardiomyopathy, mildly elevated right sided pressures/study is consistent with apical hypertrophy (spade-like) variant of hypertrophic cardiomyopathy Echocardiography dated 10/18/2017 Mod cLVH, severe PURVI, moderate TR RVSP 50-60 mmHg, moderate-severe MR Echocardiography dated 01/23/2018 Normal LV size with hyperdynamic LVEF 75%, mild BSH, normal RV size and function, severe LAE, moderate-severe MR, mod TR - Current Medication List Current Medications Acetaminophen (Tylenol Suppository -) 650 mg [place] Q6H PRN PRN Reason: FEVER Last Admin: 02/12/18 18:10 Dose: 650 mg Diphenhydramine HCl (Benadryl Injection -) 25 mg IVPB ONCE PRN PRN Reason: DURING PLASMAPHERESIS Stop: 02/13/18 08:00 Heparin Sodium (Porcine) (Heparin -) 1,000 unit IVPUSH PRN PRN PRN Reason: Heparin Heparin Sodium (Porcine) (Heparin -) 5,000 unit IVPUSH PRN PRN PRN Reason: Heparin Last Admin: 02/08/18 15:15 Dose: 5,000 unit Ceftriaxone Sodium 1 gm/ (Dextrose) 50 mls @ 100 mls/hr IVPB DAILY [facility]; Protocol Last Admin: 02/12/18 10:06 Dose: 100 mls/hr Vancomycin HCl (Vancomycin (Pre-Docked)) 1,000 mg in 250 mls @ 166.667 mls/hr IVPB Q24H [facility]; Protocol Last Admin: 02/12/18 20:25 Dose: 166.667 mls/hr Heparin Sodium/Dextrose (Heparin Infusion -) 25,000 units in 500 mls @ 16 mls/ hr IVPB TITR [facility]; Protocol Last Admin: 02/13/18 05:47 Dose: 950 unit/hr, 19 mls/hr Metoprolol Tartrate (Lopressor Injection -) 5 mg IVPUSH TID [facility] Last Admin: 02/13/18 06:55 Dose: 5 mg Thiamine HCl (Vitamin B1 -) 100 mg PO DAILY [facility] Last Admin: 02/12/18 10:07 Dose: Not Given Review of Systems Unable to obtain - Objective Vital Signs: Last Vital Signs Temp Pulse Resp BP Pulse Ox 98.4 F 100 H 18 126/80 99 02/13/18 06:00 02/13/18 06:55 02/13/18 06:00 02/13/18 06:55 02/13/18 02:46 Intake & Output 02/11/18 02/11/18 02/12/18 02/13/18 00:59 23:59 23:59 23:59 Intake Total 1744 209 Output Total 3100 900 Balance -1356 -691 Weight 178 lb 12.8 oz Neck: Supple Negative JVD No Bruit Cardiovascular: S1 S2 Irregularly Irregular Grade 2/6 Systolic Murmur Apical Chest: Scattered Rhonchi Bilaterally Gastrointestinal: Soft Benign Normal Bowel Sounds Ext: No Edema 1+ Bilateral femoral Pulses Labs: CBC, BMP 02/13/18 05:30 BMP pending INR, PTT INR 1.81 (0.83-1.09) H 02/13/18 05:30 Hepatic Panel Total Bilirubin 0.2 mg/dL (0.2-1) 02/12/18 16:40 AST 48 U/L (15-37) H 02/12/18 16:40 ALT 19 U/L (13-61) 02/12/18 16:40 Alkaline Phosphatase 74 U/L (45-117) 02/12/18 16:40 Albumin 1.2 g/dl (3.4-5.0) L 02/12/18 16:40 Assessment/Plan ASSESSMENT: 1. Acute hypoxic respiratory failure, possible pneumonia other differential diagnosis includes possible PTE 2. Toxic metabolic encephelopathy, rule out CVA while off DOAC, possible sepsis syndrome 3. Acute on CKD 4. Hypercalcemia, paraproteinemia, possible multiple myeloma 5. 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 CAD with evidence of demand ischemic injury, non obstructive CAD on [facility] coronary angiogrpahy angina pectoris 7. 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 Persistent atrial fibrillation [id number] score of 6 currently on Heparin therapy 9. HTN 10. Poor compliance with medical therapy administration and medical F/U 11. Tobacco abuse PLAN: 1. Continue Heparin pending extubation at which point resume Xarelto, therapy to be continued indefinitely unless it is absolutely contraindicated considering his [id number] score of 6 2. Continue IV Lopressor and initiate PO/NGT therapy at 25 mg twice daily 3. Antibiotics as per the primary team 4. Ventilator management as per the ICU team Mabel Rolle MD
[2018-02-13 07:20] LABS: ARTERIAL BLOOD GAS PCO2 28.9 mmHg (35-45); ARTERIAL BLOOD GAS pH 7.35 (7.35-7.45)
[2018-02-13 07:21] LABS: ARTERIAL BLD GAS O2 SATURATION 98.8 % (90-98.9); ARTERIAL BLOOD GAS BASE EXCESS -8.6 meq/l (-2-2)
[2018-02-13 07:38] LABS: ALLENS TEST POSITIVE
[2018-02-13 07:58] LABS: ALBUMIN 3.3 g/dl (3.4-5.0); ALK PHOS 39 U/L (45-117); ANION GAP 10 MMOL/L (8-16); BILIRUBIN,TOTAL 0.7 mg/dL (0.2-1); BLOOD UREA NITROGEN 61 mg/dL (7-18); CALCIUM 9.6 mg/dL (8.5-10.1); CHLORIDE 113 mmol/L (98-107); CO2 15 mmol/L (21-32); CREATININE 2.2 mg/dL (0.55-1.3); GLUCOSE,RANDOM 74 mg/dL (74-106); MAGNESIUM 1.7 mg/dL (1.8-2.4); PHOSPHOROUS 5.4 mg/dL (2.5-4.9); POTASSIUM 4.5 mmol/L (3.5-5.1); SGOT/AST 41 U/L (15-37); SGPT/ALT 17 U/L (13-61); SODIUM 139 mmol/L (136-145); TOT PROT 8.3 g/dl (6.4-8.2)
--- NOTE | 2018-02-13 08:40 | PN ---
Progress Note (short form) - Note Progress Note: Patient seen and examined Evets of last evening noted Underwent apheresis. Nurses describe some lower extremity movement , but I have not witnessed this. Remains somewhat obtunded Last Vital Signs Temp Pulse Resp BP Pulse Ox 98.4 F 87 22 H 112/71 99 02/13/18 06:00 02/13/18 08:00 02/13/18 08:14 02/13/18 08:00 02/13/18 08:13 HEENT: [place], EOM Intact Oropharynx: intubated Cor: atrial fib Lungs: scattered rhonchi Abd: Soft, Normal bowel sounds, No organomegaly Ext:No significant edema Skin: No rashes, Integument intact, heel pads CBC, BMP 02/13/18 05:30 02/13/18 05:30 INR, PTT INR 1.81 (0.83-1.09) H 02/13/18 05:30 Abnormal Lab Results 02/09/18 02/12/18 02/12/18 08:00 06:35 12:55 RBC Hgb Hct RDW Monocytes % Monocytes % (Manual) Myelocytes % (Man) Nucleated RBC % Metamyelocytes 4 H D PT with INR INR PTT (Actin FS) ABG pH ABG pCO2 at Pt Temp ABG pO2 at Pt Temp ABG HCO3 ABG O2 Sat (Measured) ABG O2 Content ABG Base Excess Sodium Chloride Carbon Dioxide Anion Gap BUN Creatinine Random Glucose Lactic Acid Phosphorus Magnesium TIBC 173 L Ferritin AST Alkaline Phosphatase Troponin I Total Protein Total Protein (PEP) 11.9 H Albumin Albumin (PEP) 2.3 L Globulin 9.6 H Albumin/Globulin Ratio 0.2 L Urine Blood KARISHMA M-Olegario 6.8 H 02/12/18 02/12/18 02/12/18 12:55 16:36 16:40 RBC 3.04 L Hgb 9.7 L Hct 27.8 L RDW 16.0 H Monocytes % 2.9 L Monocytes % (Manual) 0 L D Myelocytes % (Man) 3 H D Nucleated RBC % 8 H Metamyelocytes PT with INR INR PTT (Actin FS) ABG pH ABG pCO2 at Pt Temp ABG pO2 at Pt Temp ABG HCO3 ABG O2 Sat (Measured) ABG O2 Content ABG Base Excess Sodium Chloride Carbon Dioxide Anion Gap BUN Creatinine Random Glucose Lactic Acid 2.1 H Phosphorus Magnesium TIBC Ferritin 610.5 H AST Alkaline Phosphatase Troponin I Total Protein Total Protein (PEP) Albumin Albumin (PEP) Globulin Albumin/Globulin Ratio Urine Blood [facility] M-Olegario 02/12/18 02/12/18 02/12/18 16:40 16:40 18:00 RBC Hgb Hct RDW Monocytes % Monocytes % (Manual) Myelocytes % (Man) Nucleated RBC % Metamyelocytes PT with INR 18.60 H INR 1.57 H PTT (Actin FS) 64.8 H ABG pH 7.29 L ABG pCO2 at Pt Temp ABG pO2 at Pt Temp 323.0 H* ABG HCO3 17.8 L ABG O2 Sat (Measured) 99.4 H ABG O2 Content ABG Base Excess -7.7 L Sodium 132 L Chloride 108 H Carbon Dioxide 19 L Anion Gap 5 L BUN 59 H Creatinine 2.2 H Random Glucose 143 H Lactic Acid Phosphorus 5.1 H Magnesium TIBC Ferritin AST 48 H Alkaline Phosphatase Troponin I 0.55 H Total Protein 12.2 H Total Protein (PEP) Albumin 1.2 L Albumin (PEP) Globulin Albumin/Globulin Ratio Urine Blood [facility] M-Olegario 02/12/18 02/13/18 02/13/18 23:04 05:30 05:30 RBC 3.04 L Hgb 9.5 L Hct 27.3 L RDW 16.1 H Monocytes % Monocytes % (Manual) Myelocytes % (Man) Nucleated RBC % 11 H* Metamyelocytes PT with INR INR PTT (Actin FS) ABG pH ABG pCO2 at Pt Temp ABG pO2 at Pt Temp ABG HCO3 ABG O2 Sat (Measured) ABG O2 Content ABG Base Excess Sodium Chloride 113 H Carbon Dioxide 15 L Anion Gap BUN 61 H Creatinine 2.2 H Random Glucose Lactic Acid Phosphorus 5.4 H Magnesium 1.7 L TIBC Ferritin AST 41 H Alkaline Phosphatase 39 L Troponin I Total Protein 8.3 H Total Protein (PEP) Albumin 3.3 L Albumin (PEP) Globulin Albumin/Globulin Ratio Urine Blood 2+ H KARISHMA M-Olegario 02/13/18 02/13/18 05:30 06:00 RBC Hgb Hct RDW Monocytes % Monocytes % (Manual) Myelocytes % (Man) Nucleated RBC % Metamyelocytes PT with INR 21.50 H INR 1.81 H PTT (Actin FS) ABG pH ABG pCO2 at Pt Temp 28.9 L D ABG pO2 at Pt Temp 158.0 H* D ABG HCO3 15.5 L ABG O2 Sat (Measured) ABG O2 Content 14.8 L ABG Base Excess -8.6 L Sodium Chloride Carbon Dioxide Anion Gap BUN Creatinine Random Glucose Lactic Acid Phosphorus Magnesium TIBC Ferritin AST Alkaline Phosphatase Troponin I Total Protein Total Protein (PEP) Albumin Albumin (PEP) Globulin Albumin/Globulin Ratio Urine Blood KARISHMA M-Olegario Current Medications Generic Name Dose Route Start Last Admin Trade Name Freq PRN Reason Stop Dose Admin Acetaminophen 650 mg 02/08/18 05:44 02/12/18 18:10 Tylenol Suppository - MO 650 mg Q6H PRN Administration FEVER Heparin Sodium (Porcine) 1,000 unit 02/08/18 05:44 Heparin - IVPUSH PRN PRN Heparin Heparin Sodium (Porcine) 5,000 unit 02/08/18 05:44 02/08/18 15:15 Heparin - IVPUSH 5,000 unit PRN PRN Administration Heparin Ceftriaxone Sodium 1 gm/ 50 mls @ 100 mls/hr 02/07/18 11:45 02/12/18 10:06 Dextrose IVPB 100 mls/hr DAILY [facility] Administration Protocol Vancomycin HCl 1,000 mg in 250 mls @ 166.667 mls/hr 02/07/18 20:00 02/12/18 20:25 Vancomycin (Pre-Docked) IVPB 166.667 mls/hr Q24H [facility] Administration Protocol Heparin Sodium/Dextrose 25,000 units in 500 mls @ 16 mls/hr 02/08/18 05:45 05:47 Heparin Infusion - IVPB 950 unit/hr TITR [facility] 19 mls/hr Administration Protocol 800 UNIT/HR Magnesium Sulfate 2 gm 02/13/18 08:45 Magnesium Sulfate IVPB 02/13/18 08:46 ONCE ONE Metoprolol Tartrate 5 mg 02/13/18 06:45 02/13/18 06:55 Lopressor Injection - IVPUSH 5 mg TID [facility] Administration Thiamine HCl 100 mg 02/06/18 22:12 02/12/18 10:07 Vitamin B1 - PO Not Given DAILY [facility] Impression: Acute hypoxic respiratory failure s/p intubation Obtundation ? sepsis with ? aspiration and pulmonary infiltrates on antibiotics MELITA/CKD PVD- sp thrombectomy Atrial fibrillation LV diastolic dysfunction Hypercalcemia- treated with zometa ? HYPERVISCOSITY as etiology for obtundation with superimposed hypercalcemia and sepsis contributing Plan: I have contacted the blood center and arranged for a second apheresis tomorrow. In interim- antibiotics per ID, Heparin for Atrial fib Monitor Mag, Phos, Ca++, lytes Consider catheter for apheresis ( will need to hold a/c for this) The left shift with normoblasts in the peripheral blood can be seen in severe hypoxemia, overwhelming sepsis or an infiltrative bone marrow disorder. Awaiting protein studies and light chain studies for possible diagnosis of myeloma.
[2018-02-13] MEDS ORDERED: cefTRIAXone SODIUM 1 GM VIAL ONE (08:43)
[2018-02-13] MEDS ORDERED: DEXTROSE 5%-WATER - 50 ML IVPB ONE ×4 (08:43→20:34)
[2018-02-13] MEDS ORDERED: MAGNESIUM SULF 50% (8.12 MEQ/2 ML-1 GM VIAL) IVPB ONE (08:45)
[2018-02-13] MEDS: THIAMINE HCL 100 MG TABLET (FP) PO SCH (09:03)
[2018-02-13] MEDS: CEFTRIAXONE 1 GM in DEXTROSE 5%-WATER - 50 ML IVPB SCH (09:03)
[2018-02-13 09:54] LABS: ANISOCYTOSIS 0; MACROCYTOSIS 0
[2018-02-13 10:23] LABS: CORRECTED WBC 4.34 K/mm3; WHITE BLOOD COUNT 4.9 K/mm3 (4.0-10.0)
[2018-02-13 10:24] LABS: PLATELET ESTIMATE ADEQUATE
--- NOTE | 2018-02-13 10:50 | PN ---
Progress Note, Physician History of Present Illness: Transferred to ICU after Rapid Response Intubated on mechanical ventilation Opens eyes to calling name Komal thompson 101.2 Apheresis performed - Current Medication List Current Medications: Active Medications Acetaminophen (Tylenol Suppository -) 650 mg NC Q6H PRN PRN Reason: FEVER Last Admin: 02/12/18 18:10 Dose: 650 mg Heparin Sodium (Porcine) (Heparin -) 1,000 unit IVPUSH PRN PRN PRN Reason: Heparin Heparin Sodium (Porcine) (Heparin -) 5,000 unit IVPUSH PRN PRN PRN Reason: Heparin Last Admin: 02/08/18 15:15 Dose: 5,000 unit Ceftriaxone Sodium 1 gm/ (Dextrose) 50 mls @ 100 mls/hr IVPB DAILY [facility]; Protocol Last Admin: 02/13/18 09:03 Dose: 100 mls/hr Vancomycin HCl (Vancomycin (Pre-Docked)) 1,000 mg in 250 mls @ 166.667 mls/hr IVPB Q24H [facility]; Protocol Last Admin: 02/12/18 20:25 Dose: 166.667 mls/hr Heparin Sodium/Dextrose (Heparin Infusion -) 25,000 units in 500 mls @ 16 mls/ hr IVPB TITR [facility]; Protocol Last Admin: 02/13/18 05:47 Dose: 950 unit/hr, 19 mls/hr Metoprolol Tartrate (Lopressor Injection -) 5 mg IVPUSH TID [facility] Last Admin: 02/13/18 06:55 Dose: 5 mg Thiamine HCl (Vitamin B1 -) 100 mg PO DAILY [facility] Last Admin: 02/13/18 09:03 Dose: Not Given - Objective Vital Signs: Vital Signs Temperature 98.6 F 02/13/18 10:03 Pulse Rate 85 02/13/18 10:03 Respiratory Rate 21 H 02/13/18 10:03 Blood Pressure 119/70 02/13/18 10:03 O2 Sat by Pulse Oximetry (%) 99 02/13/18 08:13 Constitutional: Yes: No Distress Cardiovascular: Yes: Regular Rate and Rhythm, S1, S2 Respiratory: Yes: Mechanically Ventilated Gastrointestinal: Yes: Normal Bowel Sounds, Soft. No: Tenderness Edema: No Labs: CBC, BMP 02/13/18 05:30 02/13/18 05:30 INR, PTT INR 1.81 (0.83-1.09) H 02/13/18 05:30 Fibrinogen 246.0 mg/dL (238-498) 02/13/18 05:30 Assessment/Plan Respiratory failure RLL pneumonia Toxic metabolic encephalopathy Hypercalcemia Renal failure Suspected myeloma Repeat BC obtained Obtain suctioned sputum c/s Broaden antimicrobial coverage- zosyn
--- NOTE | 2018-02-13 11:38 | PN ---
Progress Note (short form) - Note Progress Note: Renal follow up for Hypercalcemia/MELITA Pt seen and examined in the ICU chart reviewed, yesterday afternoons events noted s/p plasmapharesis last night pt on vent now, responsive to physical stimuli but not following instructions making urine via francois Vital Signs Temperature 98.6 F 02/13/18 10:03 Pulse Rate 85 02/13/18 10:03 Respiratory Rate 21 H 02/13/18 10:03 Blood Pressure 119/70 02/13/18 10:03 O2 Sat by Pulse Oximetry (%) 99 02/13/18 08:13 Intake & Output 02/11/18 02/11/18 02/12/18 02/13/18 00:59 23:59 23:59 23:59 Intake Total 1744 209 Output Total 3100 900 Balance -1356 -621 Weight 81.102 kg NAD on vent via ET tube neck supple, no JVD RRR, No M/R Dec BS, no rales soft NT/ND no LE edema francois in place CBC, BMP 02/13/18 05:30 02/13/18 05:30 Current Medications Acetaminophen (Tylenol Suppository -) 650 mg SD Q6H PRN PRN Reason: FEVER Last Admin: 02/12/18 18:10 Dose: 650 mg Heparin Sodium (Porcine) (Heparin -) 1,000 unit IVPUSH PRN PRN PRN Reason: Heparin Heparin Sodium (Porcine) (Heparin -) 5,000 unit IVPUSH PRN PRN PRN Reason: Heparin Last Admin: 02/08/18 15:15 Dose: 5,000 unit Vancomycin HCl (Vancomycin (Pre-Docked)) 1,000 mg in 250 mls @ 166.667 mls/hr IVPB Q24H [facility]; Protocol Last Admin: 02/12/18 20:25 Dose: 166.667 mls/hr Heparin Sodium/Dextrose (Heparin Infusion -) 25,000 units in 500 mls @ 16 mls/ hr IVPB TITR [facility]; Protocol Last Admin: 02/13/18 05:47 Dose: 950 unit/hr, 19 mls/hr Piperacillin Sod/Tazobactam (Sod 2.25 gm/ Dextrose) 50 mls @ 100 mls/hr IVPB Q8H-IV [facility]; Protocol Metoprolol Tartrate (Lopressor Injection -) 5 mg IVPUSH TID [facility] Last Admin: 02/13/18 06:55 Dose: 5 mg Thiamine HCl (Vitamin B1 -) 100 mg PO DAILY [facility] Last Admin: 02/13/18 09:03 Dose: Not Given 77 year old gentleman with hx of CKD, Afib on A/C, CAD, CKD, Hypertension, Hyperlipidemia, PVD who presented with AMS/Confusion and found to have MELITA. #MELITA (FeNa was 2.1% indicating tubular injury, US showed no stones or obstruction, UA w/o protein but UPCR ~0.5 indicating non-albumin proteinuria) #AMS of unclear etiology (metabolic encephalopathy) #Anemia #Hypercalcemia of Malignancy (PTH is low) #Hyperdense lesion on US of the kidney #Normal anion gap metabolic acidosis Renal function unchanged, pt is non-oliguric at the present time pt appears to be evolemic keep MAP > 65 s/p Zometa yesterday for hypercalcmeia continue plasmapharesis for suspected hyperviscosity Trend serum bicarb Q12h, ususally pt develop metabolic alkalosis with pharesis continue supportive care Mack Miller DO
--- NOTE | 2018-02-13 11:47 | PN ---
Teaching Attending Note Name of Resident: Sebastián Oneil ATTENDING PHYSICIAN STATEMENT I saw and evaluated the patient. I reviewed the resident's note and discussed the case with the resident. I agree with the resident's findings and plan as documented. SUBJECTIVE: Patient seen and examined in the ICU. Remains intubated and sedated. S/P Plasmapheresis last night. Today appears to be grimacing to pain. Intake & Output 02/11/18 02/11/18 02/12/18 02/13/18 00:59 23:59 23:59 23:59 Intake Total 1744 209 Output Total 3100 900 Balance -1356 -691 Weight 178 lb 12.8 oz Last Vital Signs Temp Pulse Resp BP Pulse Ox 98.6 F 85 21 H 119/70 99 02/13/18 10:03 02/13/18 10:03 02/13/18 10:03 02/13/18 10:03 02/13/18 08:13 Active Medications Acetaminophen (Tylenol Suppository -) 650 mg SC Q6H PRN PRN Reason: FEVER Last Admin: 02/12/18 18:10 Dose: 650 mg Heparin Sodium (Porcine) (Heparin -) 1,000 unit IVPUSH PRN PRN PRN Reason: Heparin Heparin Sodium (Porcine) (Heparin -) 5,000 unit IVPUSH PRN PRN PRN Reason: Heparin Last Admin: 02/08/18 15:15 Dose: 5,000 unit Vancomycin HCl (Vancomycin (Pre-Docked)) 1,000 mg in 250 mls @ 166.667 mls/hr IVPB Q24H CHELLY; Protocol Last Admin: 02/12/18 20:25 Dose: 166.667 mls/hr Heparin Sodium/Dextrose (Heparin Infusion -) 25,000 units in 500 mls @ 16 mls/ hr IVPB TITR CHELLY; Protocol Last Admin: 02/13/18 05:47 Dose: 950 unit/hr, 19 mls/hr Piperacillin Sod/Tazobactam (Sod 2.25 gm/ Dextrose) 50 mls @ 100 mls/hr IVPB Q8H-IV CHELLY; Protocol Metoprolol Tartrate (Lopressor Injection -) 5 mg IVPUSH TID CHELLY Last Admin: 02/13/18 06:55 Dose: 5 mg Thiamine HCl (Vitamin B1 -) 100 mg PO DAILY CHELLY Last Admin: 02/13/18 09:03 Dose: Not Given Constitutional: Yes: Intubated and sedated Cardiovascular: Yes: Pulse Irregular, AFib Respiratory: Yes: Intubated and sedated Gastrointestinal: Yes: Normal Bowel Sounds, Soft Musculoskeletal: Yes: WNL Extremities: Yes: WNL Edema: No Peripheral Pulses WNL: Yes Neurological: Yes: Sedated Labs: Laboratory Results - last 24 hr 02/07/18 02/09/18 02/12/18 13:00 08:00 06:35 WBC Corrected WBC (auto) 3.96 RBC Hgb Hct MCV MCH MCHC RDW Plt Count MPV Absolute Neuts (auto) Neutrophils % Neutrophils % (Manual) 50.5 Band Neutrophils % 6.2 Lymphocytes % Lymphocytes % (Manual) 28.9 Monocytes % Monocytes % (Manual) 7 Eosinophils % Eosinophils % (Manual) 1.1 Basophils % Basophils % (Manual) 0.0 Myelocytes % (Man) 1 Promyelocytes % (Man) 0 Blast Cells % (Manual) 0 Nucleated RBC % Metamyelocytes 4 H D Hypochromia 0 Platelet Estimate Normal Platelet Comment Present Polychromasia 1+ Poikilocytosis 1+ Anisocytosis 1+ Microcytosis 1+ Macrocytosis 0 Rouleaux 1+ PT with INR INR PTT (Actin FS) Fibrinogen Anticoagulation Therapy Puncture Site ABG pH ABG pCO2 at Pt Temp ABG pO2 at Pt Temp ABG HCO3 ABG O2 Sat (Measured) ABG O2 Content ABG Base Excess Vinny Test O2 Delivery Device Oxygen Flow Rate Vent Mode Vent Rate Mechanical Rate PEEP Pressure Support Vent Sodium Potassium Chloride Carbon Dioxide Anion Gap BUN Creatinine Creat Clearance w eGFR Random Glucose Lactic Acid Calcium Phosphorus Magnesium Iron TIBC Iron Saturation Ferritin Total Bilirubin AST ALT Alkaline Phosphatase Troponin I Total Protein Total Protein (PEP) 11.9 H Albumin Albumin (PEP) 2.3 L Globulin 9.6 H Albumin/Globulin Ratio 0.2 L Beta Globulins 1.0 Vitamin B12 TSH Urine Color Urine Appearance Urine pH Ur Specific [place] Urine Protein Urine Glucose (UA) Urine Ketones Urine Blood Urine Nitrite Urine Bilirubin Urine Urobilinogen Ur Leukocyte Esterase Urine WBC (Auto) Urine RBC (Auto) Ur Epithelial Cells Urine Bacteria Hyaline Casts Urine Mucus Ethylene Glycol None detected KARISHMA M-Olegario 6.8 H Blood Type Antibody Screen 02/12/18 02/12/18 02/12/18 12:55 12:55 16:36 WBC Corrected WBC (auto) RBC Hgb Hct MCV MCH MCHC RDW Plt Count MPV Absolute Neuts (auto) Neutrophils % Neutrophils % (Manual) Band Neutrophils % Lymphocytes % Lymphocytes % (Manual) Monocytes % Monocytes % (Manual) Eosinophils % Eosinophils % (Manual) Basophils % Basophils % (Manual) Myelocytes % (Man) Promyelocytes % (Man) Blast Cells % (Manual) Nucleated RBC % Metamyelocytes Hypochromia Platelet Estimate Platelet Comment Polychromasia Poikilocytosis Anisocytosis Microcytosis Macrocytosis Rouleaux PT with INR INR PTT (Actin FS) Fibrinogen Anticoagulation Therapy Puncture Site ABG pH ABG pCO2 at Pt Temp ABG pO2 at Pt Temp ABG HCO3 ABG O2 Sat (Measured) ABG O2 Content ABG Base Excess Vinny Test O2 Delivery Device Oxygen Flow Rate Vent Mode Vent Rate Mechanical Rate PEEP Pressure Support Vent Sodium Potassium Chloride Carbon Dioxide Anion Gap BUN Creatinine Creat Clearance w eGFR Random Glucose Lactic Acid 2.1 H Calcium Phosphorus Magnesium Iron 50 TIBC 173 L Iron Saturation 29 Ferritin 610.5 H Total Bilirubin AST ALT Alkaline Phosphatase Troponin I Total Protein Total Protein (PEP) Albumin Albumin (PEP) Globulin Albumin/Globulin Ratio Beta Globulins Vitamin B12 431 TSH Urine Color Urine Appearance Urine pH Ur Specific [place] Urine Protein Urine Glucose (UA) Urine Ketones Urine Blood Urine Nitrite Urine Bilirubin Urine Urobilinogen Ur Leukocyte Esterase Urine WBC (Auto) Urine RBC (Auto) Ur Epithelial Cells Urine Bacteria Hyaline Casts Urine Mucus Ethylene Glycol KARISHMA M-Olegario Blood Type Antibody Screen 02/12/18 02/12/18 02/12/18 16:40 16:40 16:40 WBC 5.1 Corrected WBC (auto) RBC 3.04 L Hgb 9.7 L Hct 27.8 L MCV 91.5 MCH 31.8 MCHC 34.8 RDW 16.0 H Plt Count 254 MPV 8.7 Absolute Neuts (auto) 3.2 Neutrophils % 63.1 Neutrophils % (Manual) 50.0 Band Neutrophils % 11.0 Lymphocytes % 32.7 D Lymphocytes % (Manual) 30.0 Monocytes % 2.9 L Monocytes % (Manual) 0 L D Eosinophils % 1.0 Eosinophils % (Manual) 0.0 D Basophils % 0.3 Basophils % (Manual) 0.0 Myelocytes % (Man) 3 H D Promyelocytes % (Man) Blast Cells % (Manual) Nucleated RBC % 8 H Metamyelocytes 2 D Hypochromia Platelet Estimate Adequate Platelet Comment Polychromasia Poikilocytosis Anisocytosis Microcytosis Macrocytosis Rouleaux PT with INR INR PTT (Actin FS) Fibrinogen Anticoagulation Therapy Puncture Site ABG pH ABG pCO2 at Pt Temp ABG pO2 at Pt Temp ABG HCO3 ABG O2 Sat (Measured) ABG O2 Content ABG Base Excess Vinny Test O2 Delivery Device Oxygen Flow Rate Vent Mode Vent Rate Mechanical Rate PEEP Pressure Support Vent Sodium 132 L Potassium 5.1 Chloride 108 H Carbon Dioxide 19 L Anion Gap 5 L BUN 59 H Creatinine 2.2 H Creat Clearance w eGFR 29.02 Random Glucose 143 H Lactic Acid Calcium 9.4 Phosphorus 5.1 H Magnesium 1.8 Iron TIBC Iron Saturation Ferritin Total Bilirubin 0.2 AST 48 H ALT 19 Alkaline Phosphatase 74 Troponin I 0.55 H Total Protein 12.2 H Total Protein (PEP) Albumin 1.2 L Albumin (PEP) Globulin Albumin/Globulin Ratio Beta Globulins Vitamin B12 TSH Urine Color Urine Appearance Urine pH Ur Specific [place] Urine Protein Urine Glucose (UA) Urine Ketones Urine Blood Urine Nitrite Urine Bilirubin Urine Urobilinogen Ur Leukocyte Esterase Urine WBC (Auto) Urine RBC (Auto) Ur Epithelial Cells Urine Bacteria Hyaline Casts Urine Mucus Ethylene Glycol KARISHMA M-Olegario Blood Type B POSITIVE Antibody Screen Negative 02/12/18 02/12/18 02/12/18 16:40 18:00 23:04 WBC Corrected WBC (auto) RBC Hgb Hct MCV MCH MCHC RDW Plt Count MPV Absolute Neuts (auto) Neutrophils % Neutrophils % (Manual) Band Neutrophils % Lymphocytes % Lymphocytes % (Manual) Monocytes % Monocytes % (Manual) Eosinophils % Eosinophils % (Manual) Basophils % Basophils % (Manual) Myelocytes % (Man) Promyelocytes % (Man) Blast Cells % (Manual) Nucleated RBC % Metamyelocytes Hypochromia Platelet Estimate Platelet Comment Polychromasia Poikilocytosis Anisocytosis Microcytosis Macrocytosis Rouleaux PT with INR 18.60 H INR 1.57 H PTT (Actin FS) 64.8 H Fibrinogen Anticoagulation Therapy No Result Required. Puncture Site Right radial ABG pH 7.29 L ABG pCO2 at Pt Temp 38.4 ABG pO2 at Pt Temp 323.0 H* ABG HCO3 17.8 L ABG O2 Sat (Measured) 99.4 H ABG O2 Content 15.0 ABG Base Excess -7.7 L Vinny Test Positive O2 Delivery Device No Result Required. Oxygen Flow Rate 100 Vent Mode Vo/ac Vent Rate 12 Mechanical Rate No Result Required. PEEP 8.0 Pressure Support Vent No Result Required. Sodium Potassium Chloride Carbon Dioxide Anion Gap BUN Creatinine Creat Clearance w eGFR Random Glucose Lactic Acid Calcium Phosphorus Magnesium Iron TIBC Iron Saturation Ferritin Total Bilirubin AST ALT Alkaline Phosphatase Troponin I Total Protein Total Protein (PEP) Albumin Albumin (PEP) Globulin Albumin/Globulin Ratio Beta Globulins Vitamin B12 TSH Urine Color Ltyellow Urine Appearance Slcloudy Urine pH 5.0 Ur Specific [place] 1.010 Urine Protein Negative Urine Glucose (UA) Negative Urine Ketones Negative Urine Blood 2+ H Urine Nitrite Negative Urine Bilirubin Negative Urine Urobilinogen Negative Ur Leukocyte Esterase Negative Urine WBC (Auto) 5 Urine RBC (Auto) 9 Ur Epithelial Cells Rare Urine Bacteria Few Hyaline Casts 17 Urine Mucus Rare Ethylene Glycol KARISHMA M-Olegario Blood Type Antibody Screen 02/13/18 02/13/18 02/13/18 05:30 05:30 05:30 WBC 4.9 Corrected WBC (auto) 4.34 RBC 3.04 L Hgb 9.5 L Hct 27.3 L MCV 89.9 MCH 31.2 MCHC 34.7 RDW 16.1 H Plt Count 156 D MPV 9.2 Absolute Neuts (auto) 2.9 Neutrophils % 70.8 Neutrophils % (Manual) 53.0 Band Neutrophils % 7.0 Lymphocytes % 23.2 D Lymphocytes % (Manual) 31.0 Monocytes % 4.9 Monocytes % (Manual) 2 L D Eosinophils % 0.8 Eosinophils % (Manual) 2.0 D Basophils % 0.3 Basophils % (Manual) 0.0 Myelocytes % (Man) 2 D Promyelocytes % (Man) 0 Blast Cells % (Manual) 0 Nucleated RBC % 13 H* Metamyelocytes 3 H D Hypochromia 0 Platelet Estimate Adequate Platelet Comment Polychromasia 0 Poikilocytosis 0 Anisocytosis 0 Microcytosis 0 Macrocytosis 0 Rouleaux PT with INR INR PTT (Actin FS) 76.8 H Fibrinogen Anticoagulation Therapy Puncture Site ABG pH ABG pCO2 at Pt Temp ABG pO2 at Pt Temp ABG HCO3 ABG O2 Sat (Measured) ABG O2 Content ABG Base Excess Vinny Test O2 Delivery Device Oxygen Flow Rate Vent Mode Vent Rate Mechanical Rate PEEP Pressure Support Vent Sodium 139 Potassium 4.5 Chloride 113 H Carbon Dioxide 15 L Anion Gap 10 BUN 61 H Creatinine 2.2 H Creat Clearance w eGFR 29.02 Random Glucose 74 Lactic Acid Calcium 9.6 Phosphorus 5.4 H Magnesium 1.7 L Iron TIBC Iron Saturation Ferritin Total Bilirubin 0.7 AST 41 H ALT 17 Alkaline Phosphatase 39 L Troponin I Total Protein 8.3 H Total Protein (PEP) Albumin 3.3 L Albumin (PEP) Globulin Albumin/Globulin Ratio Beta Globulins Vitamin B12 TSH 1.94 D Urine Color Urine Appearance Urine pH Ur Specific [place] Urine Protein Urine Glucose (UA) Urine Ketones Urine Blood Urine Nitrite Urine Bilirubin Urine Urobilinogen Ur Leukocyte Esterase Urine WBC (Auto) Urine RBC (Auto) Ur Epithelial Cells Urine Bacteria Hyaline Casts Urine Mucus Ethylene Glycol KARISHMA M-Olegario Blood Type Antibody Screen 02/13/18 02/13/18 02/13/18 05:30 05:30 06:00 WBC Corrected WBC (auto) RBC Hgb Hct MCV MCH MCHC RDW Plt Count MPV Absolute Neuts (auto) Neutrophils % Neutrophils % (Manual) Band Neutrophils % Lymphocytes % Lymphocytes % (Manual) Monocytes % Monocytes % (Manual) Eosinophils % Eosinophils % (Manual) Basophils % Basophils % (Manual) Myelocytes % (Man) Promyelocytes % (Man) Blast Cells % (Manual) Nucleated RBC % Metamyelocytes Hypochromia Platelet Estimate Platelet Comment Polychromasia Poikilocytosis Anisocytosis Microcytosis Macrocytosis Rouleaux PT with INR 21.50 H INR 1.81 H PTT (Actin FS) Fibrinogen 246.0 Anticoagulation Therapy No Result Required. Puncture Site Right radial ABG pH 7.35 ABG pCO2 at Pt Temp 28.9 L D ABG pO2 at Pt Temp 158.0 H* D ABG HCO3 15.5 L ABG O2 Sat (Measured) 98.8 ABG O2 Content 14.8 L ABG Base Excess -8.6 L Ivnny Test Positive O2 Delivery Device Vent Oxygen Flow Rate 40% Vent Mode No Result Required. Vent Rate 12 Mechanical Rate No Result Required. PEEP 5.0 Pressure Support Vent 500 Sodium Potassium Chloride Carbon Dioxide Anion Gap BUN Creatinine Creat Clearance w eGFR Random Glucose Lactic Acid Calcium Phosphorus Magnesium Iron TIBC Iron Saturation Ferritin Total Bilirubin AST ALT Alkaline Phosphatase Troponin I Total Protein Total Protein (PEP) Albumin Albumin (PEP) Globulin Albumin/Globulin Ratio Beta Globulins Vitamin B12 TSH Urine Color Urine Appearance Urine pH Ur Specific [place] Urine Protein Urine Glucose (UA) Urine Ketones Urine Blood Urine Nitrite Urine Bilirubin Urine Urobilinogen Ur Leukocyte Esterase Urine WBC (Auto) Urine RBC (Auto) Ur Epithelial Cells Urine Bacteria Hyaline Casts Urine Mucus Ethylene Glycol KARISHMA M-Olegario Blood Type Antibody Screen 02/13/18 08:00 WBC Corrected WBC (auto) RBC Hgb Hct MCV MCH MCHC RDW Plt Count MPV Absolute Neuts (auto) Neutrophils % Neutrophils % (Manual) Band Neutrophils % Lymphocytes % Lymphocytes % (Manual) Monocytes % Monocytes % (Manual) Eosinophils % Eosinophils % (Manual) Basophils % Basophils % (Manual) Myelocytes % (Man) Promyelocytes % (Man) Blast Cells % (Manual) Nucleated RBC % Metamyelocytes Hypochromia Platelet Estimate Platelet Comment Polychromasia Poikilocytosis Anisocytosis Microcytosis Macrocytosis Rouleaux PT with INR INR PTT (Actin FS) Fibrinogen Anticoagulation Therapy Puncture Site ABG pH ABG pCO2 at Pt Temp ABG pO2 at Pt Temp ABG HCO3 ABG O2 Sat (Measured) ABG O2 Content ABG Base Excess Vinny Test O2 Delivery Device Oxygen Flow Rate Vent Mode Vent Rate Mechanical Rate PEEP Pressure Support Vent Sodium Potassium Chloride Carbon Dioxide Anion Gap BUN Creatinine Creat Clearance w eGFR Random Glucose Lactic Acid 0.9 Calcium Phosphorus Magnesium Iron TIBC Iron Saturation Ferritin Total Bilirubin AST ALT Alkaline Phosphatase Troponin I Total Protein Total Protein (PEP) Albumin Albumin (PEP) Globulin Albumin/Globulin Ratio Beta Globulins Vitamin B12 TSH Urine Color Urine Appearance Urine pH Ur Specific [place] Urine Protein Urine Glucose (UA) Urine Ketones Urine Blood Urine Nitrite Urine Bilirubin Urine Urobilinogen Ur Leukocyte Esterase Urine WBC (Auto) Urine RBC (Auto) Ur Epithelial Cells Urine Bacteria Hyaline Casts Urine Mucus Ethylene Glycol KARISHMA M-Olegario Blood Type Antibody Screen Problem List Acute Respiratory Failure R/O Aspiration MELITA (acute kidney injury) R/O Hyperviscosity Atrial Fibrillation with RVR R/O Sepsis AMS Anemia (?) Apical PTX PLAN: AC Mode of vent PEEP 0 for now AC Strict I & O Monitor CXR Daily sedation vacation ABX coverage Rate control Plasmapheresis per Heme Start enteral feeds Dr Walker Critical care time spent in reviewing chart, evaluating patient and formulating plan - 36 minutes.
--- NOTE | 2018-02-13 12:06 | EKG ---
Test Reason : Blood Pressure : / mmHG Vent. Rate : 087 BPM Atrial Rate : 288 BPM P-R Int : 000 ms QRS Dur : 146 ms QT Int : 404 ms P-R-T Axes : 000 270 070 degrees QTc Int : 486 ms ATRIAL FIBRILLATION RIGHT BUNDLE BRANCH BLOCK SEPTAL INFARCT , AGE UNDETERMINED POSSIBLE LATERAL INFARCT , AGE UNDETERMINED ABNORMAL ECG Confirmed by MD SHEILA, ROSALBA ([id number]) on 02/13/2018 12:05:52 PM Referred By: JAYNE MCCLOUD Confirmed By:ROSALBA SOSA MD
[2018-02-13] MEDS ORDERED: PIPERACILLIN/TAZOBACTAM 2.25 GM VIAL IVPB ONE ×3 (12:22→20:34)
[2018-02-13] MEDS: PIPERACILLIN/TAZOB 2.25 GM 2.25 GM in DEXTROSE 5%-WATER - 50 ML IVPB SCH ×3 (12:25→17:25)
--- NOTE | 2018-02-13 13:41 | PN ---
Physical Exam: SUBJECTIVE: Patient seen and examined at bedside. He remains intubated and sedated. He received plasmapharesis overnight. Yesterday he had an elevated rectal temp to 101 despite being on vanc and ceftriaxone. His Abx coverage was escalated to Zosyn. OBJECTIVE: Vital Signs Period Temp Pulse Resp BP Sys/Ariza Pulse Ox Last 24 Hr 98.1 F-101.2 F 85-110 14-26 96-134/70-87 95-100 GENERAL: Intubated and sedated. HEAD: Normal with no signs of trauma. EYES: Pupils equal, round and reactive to light, sclera anicteric, conjunctiva clear. EARS, NOSE, THROAT: Ears normal, nares patent, oropharynx clear without exudates. Moist mucous membranes. NECK: Supple without lymphadenopathy, no JVD, or masses. LUNGS: Diffuse wheezes and rales bilaterally in both lung rodriguez. No accessory muscle use. HEART: regular rate and irregular rhythm. ABDOMEN: Soft, normoactive bowel sounds, no guarding, no rebound, no masses. No hepatomegaly or splenomegaly. MUSCULOSKELETAL: Normal range of motion at all joints. No bony deformities or tenderness. UPPER EXTREMITIES: 2+ pulses, warm, well-perfused. No cyanosis. No clubbing. Cap refill <2 seconds. No peripheral edema. LOWER EXTREMITIES: 2+ pulses, warm, well-perfused. No calf tenderness. No peripheral edema. NEUROLOGICAL: Normoreflexic. ESTEPHANIE. SKIN: Warm, diaphoretic, normal turgor, no rashes or lesions noted. Laboratory Results - last 24 hr 02/07/18 02/09/18 02/12/18 13:00 08:00 06:35 WBC Corrected WBC (auto) 3.96 RBC Hgb Hct MCV MCH MCHC RDW Plt Count MPV Absolute Neuts (auto) Neutrophils % Neutrophils % (Manual) 50.5 Band Neutrophils % 6.2 Lymphocytes % Lymphocytes % (Manual) 28.9 Monocytes % Monocytes % (Manual) 7 Eosinophils % Eosinophils % (Manual) 1.1 Basophils % Basophils % (Manual) 0.0 Myelocytes % (Man) 1 Promyelocytes % (Man) 0 Blast Cells % (Manual) 0 Nucleated RBC % Metamyelocytes 4 H D Hypochromia 0 Platelet Estimate Normal Platelet Comment Present Polychromasia 1+ Poikilocytosis 1+ Anisocytosis 1+ Microcytosis 1+ Macrocytosis 0 Rouleaux 1+ PT with INR INR PTT (Actin FS) Fibrinogen Anticoagulation Therapy Puncture Site ABG pH ABG pCO2 at Pt Temp ABG pO2 at Pt Temp ABG HCO3 ABG O2 Sat (Measured) ABG O2 Content ABG Base Excess Vinny Test O2 Delivery Device Oxygen Flow Rate Vent Mode Vent Rate Mechanical Rate PEEP Pressure Support Vent Sodium Potassium Chloride Carbon Dioxide Anion Gap BUN Creatinine Creat Clearance w eGFR Random Glucose Lactic Acid Calcium Phosphorus Magnesium Iron TIBC Iron Saturation Ferritin Total Bilirubin AST ALT Alkaline Phosphatase Troponin I Total Protein Total Protein (PEP) 11.9 H Albumin Albumin (PEP) 2.3 L Globulin 9.6 H Albumin/Globulin Ratio 0.2 L Beta Globulins 1.0 Vitamin B12 TSH Urine Color Urine Appearance Urine pH Ur Specific Lynn Urine Protein Urine Glucose (UA) Urine Ketones Urine Blood Urine Nitrite Urine Bilirubin Urine Urobilinogen Ur Leukocyte Esterase Urine WBC (Auto) Urine RBC (Auto) Ur Epithelial Cells Urine Bacteria Hyaline Casts Urine Mucus Ethylene Glycol None detected KARISHMA M-Olegario 6.8 H Blood Type Antibody Screen 02/12/18 02/12/18 02/12/18 12:55 12:55 16:36 WBC Corrected WBC (auto) RBC Hgb Hct MCV MCH MCHC RDW Plt Count MPV Absolute Neuts (auto) Neutrophils % Neutrophils % (Manual) Band Neutrophils % Lymphocytes % Lymphocytes % (Manual) Monocytes % Monocytes % (Manual) Eosinophils % Eosinophils % (Manual) Basophils % Basophils % (Manual) Myelocytes % (Man) Promyelocytes % (Man) Blast Cells % (Manual) Nucleated RBC % Metamyelocytes Hypochromia Platelet Estimate Platelet Comment Polychromasia Poikilocytosis Anisocytosis Microcytosis Macrocytosis Rouleaux PT with INR INR PTT (Actin FS) Fibrinogen Anticoagulation Therapy Puncture Site ABG pH ABG pCO2 at Pt Temp ABG pO2 at Pt Temp ABG HCO3 ABG O2 Sat (Measured) ABG O2 Content ABG Base Excess Vinny Test O2 Delivery Device Oxygen Flow Rate Vent Mode Vent Rate Mechanical Rate PEEP Pressure Support Vent Sodium Potassium Chloride Carbon Dioxide Anion Gap BUN Creatinine Creat Clearance w eGFR Random Glucose Lactic Acid 2.1 H Calcium Phosphorus Magnesium Iron 50 TIBC 173 L Iron Saturation 29 Ferritin 610.5 H Total Bilirubin AST ALT Alkaline Phosphatase Troponin I Total Protein Total Protein (PEP) Albumin Albumin (PEP) Globulin Albumin/Globulin Ratio Beta Globulins Vitamin B12 431 TSH Urine Color Urine Appearance Urine pH Ur Specific Lynn Urine Protein Urine Glucose (UA) Urine Ketones Urine Blood Urine Nitrite Urine Bilirubin Urine Urobilinogen Ur Leukocyte Esterase Urine WBC (Auto) Urine RBC (Auto) Ur Epithelial Cells Urine Bacteria Hyaline Casts Urine Mucus Ethylene Glycol KARISHMA M-Olegario Blood Type Antibody Screen 02/12/18 02/12/18 02/12/18 16:40 16:40 16:40 WBC 5.1 Corrected WBC (auto) RBC 3.04 L Hgb 9.7 L Hct 27.8 L MCV 91.5 MCH 31.8 MCHC 34.8 RDW 16.0 H Plt Count 254 MPV 8.7 Absolute Neuts (auto) 3.2 Neutrophils % 63.1 Neutrophils % (Manual) 50.0 Band Neutrophils % 11.0 Lymphocytes % 32.7 D Lymphocytes % (Manual) 30.0 Monocytes % 2.9 L Monocytes % (Manual) 0 L D Eosinophils % 1.0 Eosinophils % (Manual) 0.0 D Basophils % 0.3 Basophils % (Manual) 0.0 Myelocytes % (Man) 3 H D Promyelocytes % (Man) Blast Cells % (Manual) Nucleated RBC % 8 H Metamyelocytes 2 D Hypochromia Platelet Estimate Adequate Platelet Comment Polychromasia Poikilocytosis Anisocytosis Microcytosis Macrocytosis Rouleaux PT with INR INR PTT (Actin FS) Fibrinogen Anticoagulation Therapy Puncture Site ABG pH ABG pCO2 at Pt Temp ABG pO2 at Pt Temp ABG HCO3 ABG O2 Sat (Measured) ABG O2 Content ABG Base Excess Vinny Test O2 Delivery Device Oxygen Flow Rate Vent Mode Vent Rate Mechanical Rate PEEP Pressure Support Vent Sodium 132 L Potassium 5.1 Chloride 108 H Carbon Dioxide 19 L Anion Gap 5 L BUN 59 H Creatinine 2.2 H Creat Clearance w eGFR 29.02 Random Glucose 143 H Lactic Acid Calcium 9.4 Phosphorus 5.1 H Magnesium 1.8 Iron TIBC Iron Saturation Ferritin Total Bilirubin 0.2 AST 48 H ALT 19 Alkaline Phosphatase 74 Troponin I 0.55 H Total Protein 12.2 H Total Protein (PEP) Albumin 1.2 L Albumin (PEP) Globulin Albumin/Globulin Ratio Beta Globulins Vitamin B12 TSH Urine Color Urine Appearance Urine pH Ur Specific Lynn Urine Protein Urine Glucose (UA) Urine Ketones Urine Blood Urine Nitrite Urine Bilirubin Urine Urobilinogen Ur Leukocyte Esterase Urine WBC (Auto) Urine RBC (Auto) Ur Epithelial Cells Urine Bacteria Hyaline Casts Urine Mucus Ethylene Glycol KARISHMA M-Olegario Blood Type B POSITIVE Antibody Screen Negative 02/12/18 02/12/18 02/12/18 16:40 18:00 23:04 WBC Corrected WBC (auto) RBC Hgb Hct MCV MCH MCHC RDW Plt Count MPV Absolute Neuts (auto) Neutrophils % Neutrophils % (Manual) Band Neutrophils % Lymphocytes % Lymphocytes % (Manual) Monocytes % Monocytes % (Manual) Eosinophils % Eosinophils % (Manual) Basophils % Basophils % (Manual) Myelocytes % (Man) Promyelocytes % (Man) Blast Cells % (Manual) Nucleated RBC % Metamyelocytes Hypochromia Platelet Estimate Platelet Comment Polychromasia Poikilocytosis Anisocytosis Microcytosis Macrocytosis Rouleaux PT with INR 18.60 H INR 1.57 H PTT (Actin FS) 64.8 H Fibrinogen Anticoagulation Therapy No Result Required. Puncture Site Right radial ABG pH 7.29 L ABG pCO2 at Pt Temp 38.4 ABG pO2 at Pt Temp 323.0 H* ABG HCO3 17.8 L ABG O2 Sat (Measured) 99.4 H ABG O2 Content 15.0 ABG Base Excess -7.7 L Vinny Test Positive O2 Delivery Device No Result Required. Oxygen Flow Rate 100 Vent Mode Vo/ac Vent Rate 12 Mechanical Rate No Result Required. PEEP 8.0 Pressure Support Vent No Result Required. Sodium Potassium Chloride Carbon Dioxide Anion Gap BUN Creatinine Creat Clearance w eGFR Random Glucose Lactic Acid Calcium Phosphorus Magnesium Iron TIBC Iron Saturation Ferritin Total Bilirubin AST ALT Alkaline Phosphatase Troponin I Total Protein Total Protein (PEP) Albumin Albumin (PEP) Globulin Albumin/Globulin Ratio Beta Globulins Vitamin B12 TSH Urine Color Ltyellow Urine Appearance Slcloudy Urine pH 5.0 Ur Specific Lynn 1.010 Urine Protein Negative Urine Glucose (UA) Negative Urine Ketones Negative Urine Blood 2+ H Urine Nitrite Negative Urine Bilirubin Negative Urine Urobilinogen Negative Ur Leukocyte Esterase Negative Urine WBC (Auto) 5 Urine RBC (Auto) 9 Ur Epithelial Cells Rare Urine Bacteria Few Hyaline Casts 17 Urine Mucus Rare Ethylene Glycol KARISHMA M-Olegario Blood Type Antibody Screen 02/13/18 02/13/18 02/13/18 05:30 05:30 05:30 WBC 4.9 Corrected WBC (auto) 4.34 RBC 3.04 L Hgb 9.5 L Hct 27.3 L MCV 89.9 MCH 31.2 MCHC 34.7 RDW 16.1 H Plt Count 156 D MPV 9.2 Absolute Neuts (auto) 2.9 Neutrophils % 70.8 Neutrophils % (Manual) 53.0 Band Neutrophils % 7.0 Lymphocytes % 23.2 D Lymphocytes % (Manual) 31.0 Monocytes % 4.9 Monocytes % (Manual) 2 L D Eosinophils % 0.8 Eosinophils % (Manual) 2.0 D Basophils % 0.3 Basophils % (Manual) 0.0 Myelocytes % (Man) 2 D Promyelocytes % (Man) 0 Blast Cells % (Manual) 0 Nucleated RBC % 13 H* Metamyelocytes 3 H D Hypochromia 0 Platelet Estimate Adequate Platelet Comment Polychromasia 0 Poikilocytosis 0 Anisocytosis 0 Microcytosis 0 Macrocytosis 0 Rouleaux PT with INR INR PTT (Actin FS) 76.8 H Fibrinogen Anticoagulation Therapy Puncture Site ABG pH ABG pCO2 at Pt Temp ABG pO2 at Pt Temp ABG HCO3 ABG O2 Sat (Measured) ABG O2 Content ABG Base Excess Vinny Test O2 Delivery Device Oxygen Flow Rate Vent Mode Vent Rate Mechanical Rate PEEP Pressure Support Vent Sodium 139 Potassium 4.5 Chloride 113 H Carbon Dioxide 15 L Anion Gap 10 BUN 61 H Creatinine 2.2 H Creat Clearance w eGFR 29.02 Random Glucose 74 Lactic Acid Calcium 9.6 Phosphorus 5.4 H Magnesium 1.7 L Iron TIBC Iron Saturation Ferritin Total Bilirubin 0.7 AST 41 H ALT 17 Alkaline Phosphatase 39 L Troponin I Total Protein 8.3 H Total Protein (PEP) Albumin 3.3 L Albumin (PEP) Globulin Albumin/Globulin Ratio Beta Globulins Vitamin B12 TSH 1.94 D Urine Color Urine Appearance Urine pH Ur Specific Lynn Urine Protein Urine Glucose (UA) Urine Ketones Urine Blood Urine Nitrite Urine Bilirubin Urine Urobilinogen Ur Leukocyte Esterase Urine WBC (Auto) Urine RBC (Auto) Ur Epithelial Cells Urine Bacteria Hyaline Casts Urine Mucus Ethylene Glycol KARISHMA M-Olegario Blood Type Antibody Screen 02/13/18 02/13/18 02/13/18 05:30 05:30 06:00 WBC Corrected WBC (auto) RBC Hgb Hct MCV MCH MCHC RDW Plt Count MPV Absolute Neuts (auto) Neutrophils % Neutrophils % (Manual) Band Neutrophils % Lymphocytes % Lymphocytes % (Manual) Monocytes % Monocytes % (Manual) Eosinophils % Eosinophils % (Manual) Basophils % Basophils % (Manual) Myelocytes % (Man) Promyelocytes % (Man) Blast Cells % (Manual) Nucleated RBC % Metamyelocytes Hypochromia Platelet Estimate Platelet Comment Polychromasia Poikilocytosis Anisocytosis Microcytosis Macrocytosis Rouleaux PT with INR 21.50 H INR 1.81 H PTT (Actin FS) Fibrinogen 246.0 Anticoagulation Therapy No Result Required. Puncture Site Right radial ABG pH 7.35 ABG pCO2 at Pt Temp 28.9 L D ABG pO2 at Pt Temp 158.0 H* D ABG HCO3 15.5 L ABG O2 Sat (Measured) 98.8 ABG O2 Content 14.8 L ABG Base Excess -8.6 L Vinny Test Positive O2 Delivery Device Vent Oxygen Flow Rate 40% Vent Mode No Result Required. Vent Rate 12 Mechanical Rate No Result Required. PEEP 5.0 Pressure Support Vent 500 Sodium Potassium Chloride Carbon Dioxide Anion Gap BUN Creatinine Creat Clearance w eGFR Random Glucose Lactic Acid Calcium Phosphorus Magnesium Iron TIBC Iron Saturation Ferritin Total Bilirubin AST ALT Alkaline Phosphatase Troponin I Total Protein Total Protein (PEP) Albumin Albumin (PEP) Globulin Albumin/Globulin Ratio Beta Globulins Vitamin B12 TSH Urine Color Urine Appearance Urine pH Ur Specific Lynn Urine Protein Urine Glucose (UA) Urine Ketones Urine Blood Urine Nitrite Urine Bilirubin Urine Urobilinogen Ur Leukocyte Esterase Urine WBC (Auto) Urine RBC (Auto) Ur Epithelial Cells Urine Bacteria Hyaline Casts Urine Mucus Ethylene Glycol KARISHMA M-Olegario Blood Type Antibody Screen 02/13/18 08:00 WBC Corrected WBC (auto) RBC Hgb Hct MCV MCH MCHC RDW Plt Count MPV Absolute Neuts (auto) Neutrophils % Neutrophils % (Manual) Band Neutrophils % Lymphocytes % Lymphocytes % (Manual) Monocytes % Monocytes % (Manual) Eosinophils % Eosinophils % (Manual) Basophils % Basophils % (Manual) Myelocytes % (Man) Promyelocytes % (Man) Blast Cells % (Manual) Nucleated RBC % Metamyelocytes Hypochromia Platelet Estimate Platelet Comment Polychromasia Poikilocytosis Anisocytosis Microcytosis Macrocytosis Rouleaux PT with INR INR PTT (Actin FS) Fibrinogen Anticoagulation Therapy Puncture Site ABG pH ABG pCO2 at Pt Temp ABG pO2 at Pt Temp ABG HCO3 ABG O2 Sat (Measured) ABG O2 Content ABG Base Excess Vinny Test O2 Delivery Device Oxygen Flow Rate Vent Mode Vent Rate Mechanical Rate PEEP Pressure Support Vent Sodium Potassium Chloride Carbon Dioxide Anion Gap BUN Creatinine Creat Clearance w eGFR Random Glucose Lactic Acid 0.9 Calcium Phosphorus Magnesium Iron TIBC Iron Saturation Ferritin Total Bilirubin AST ALT Alkaline Phosphatase Troponin I Total Protein Total Protein (PEP) Albumin Albumin (PEP) Globulin Albumin/Globulin Ratio Beta Globulins Vitamin B12 TSH Urine Color Urine Appearance Urine pH Ur Specific Lynn Urine Protein Urine Glucose (UA) Urine Ketones Urine Blood Urine Nitrite Urine Bilirubin Urine Urobilinogen Ur Leukocyte Esterase Urine WBC (Auto) Urine RBC (Auto) Ur Epithelial Cells Urine Bacteria Hyaline Casts Urine Mucus Ethylene Glycol KARISHMA M-Olegario Blood Type Antibody Screen Active Medications Generic Name Dose Route Start Last Admin Trade Name Freq PRN Reason Stop Dose Admin Acetaminophen 650 mg 02/08/18 05:44 02/12/18 18:10 Tylenol Suppository - [place] 650 mg Q6H PRN Administration FEVER Heparin Sodium (Porcine) 1,000 unit 02/08/18 05:44 Heparin - IVPUSH PRN PRN Heparin Heparin Sodium (Porcine) 5,000 unit 02/08/18 05:44 02/08/18 15:15 Heparin - IVPUSH 5,000 unit PRN PRN Administration Heparin Vancomycin HCl 1,000 mg in 250 mls @ 166.667 mls/hr 02/07/18 20:00 02/12/18 20:25 Vancomycin (Pre-Docked) IVPB 166.667 mls/hr Q24H CHELLY Administration Protocol Heparin Sodium/Dextrose 25,000 units in 500 mls @ 16 mls/hr 02/08/18 05:45 12:14 Heparin Infusion - IVPB 900 unit/hr TITR CHELLY 18 mls/hr Titration Protocol 800 UNIT/HR Piperacillin Sod/Tazobactam 50 mls @ 100 mls/hr 02/13/18 11:00 02/13/18 12:48 Sod 2.25 gm/ Dextrose IVPB 100 mls/hr Q8H-IV CHELLY Administration Protocol Metoprolol Tartrate 5 mg 02/13/18 06:45 02/13/18 06:55 Lopressor Injection - IVPUSH 5 mg TID CHELLY Administration Thiamine HCl 100 mg 02/06/18 22:12 02/13/18 09:03 Vitamin B1 - PO Not Given DAILY CHELLY ASSESSMENT/PLAN: Assessment: Patient was febrile yesterday so we escalated the Abx coverage to Zosyn. CXR showed a small apical pneumothorax - We turned off the PEEP on the vent. The question remains whether his respiratory insufficiency yesterday occurred secondary to an infectious process likely from the lung or whether this is cardio/pulmonary in origin. Patient will continue to receive plasmapharesis and antibiotics. We will do daily sedation vacations to assess his mental status. Plan: ID: - Rectal temp of 101 despite ceftriaxone and vancomycin. - Rales/Ronchi/wheezes heard on Lung auscultation - CXR shows pulmonary infiltrate, possible PNA vs empyema vs paramnemonic effusion - Stepping up Abx coverage to zosyn - ID on board Cardio: - Afib w RVR: Patient is receiving metoprolol 5 mg Q8H - diastolic dysfunction + hypertrophic cardiomyopathy - CAD with multiple stents Pulm: - Intubated - Patient has a small apical pneumothorax. Will Trend w serial Xrays. No invasive treatment indicated at the present time. - b/l diffuse wheezes/ronchi - infiltrate on CXR: Will step up Abx to Zosyn - No lasix today Renal: - Acute on Chronic kidney injury - BUN: 61 Cr:2.2. possibly Pre-renal etiology. Unchanged much since yesterday. - Renal consulted and on board. - Patient received plasmapharesis overnight. Will continue to receive for hyperviscosity. Neuro: - Patient is not alert or oriented. He responds to painful stimuli. - Head CT showed no acute pathology Heme/Onc: - Patient received plasmapharesis today. Will get again tomorrow. - Patient has hypercalcemia - Paraproteinemia - Possible Multiple Myeloma: SPEP and UPEP sent. Pending results. Endo: - Hypercalcemia - Glucose wnl - Parathyroid hormone WNL - parathyroid hormone like protein pending. F/E/N: F: No standing fluids due to fluid overload in lungs E: Mag low. Repleted. N: We inserted an NG tube and will give patient tube feeds. Code Status: Full Code Dispo: Patient will continue to receive ICU level care Visit type - Emergency Visit Emergency Visit: Yes ED Registration Date: 02/06/18 Care time: The patient presented to the Emergency Department on the above date and was hospitalized for further evaluation of their emergent condition. - New Patient This patient is new to me today: No - Critical Care Critical Care patient: Yes Total Critical Care Time (in minutes): 36 Critical Care Statement: The care of this patient involved high complexity decision making to prevent further life threatening deterioration of the patient 's condition and/or to evaluate & treat vital organ system(s) failure or risk of failure.
--- NOTE | 2018-02-13 17:31 | PN ---
Progress Note, Physician Chief Complaint: AMS Unresponsiveness History of Present Illness: Intubated yesterday On mechanical vent Underwent apheresis. - Current Medication List Current Medications: Active Medications Acetaminophen (Tylenol Suppository -) 650 mg UT Q6H PRN PRN Reason: FEVER Last Admin: 02/12/18 18:10 Dose: 650 mg Acetaminophen (Ofirmev Injection -) 1,000 mg IVPB Q6H PRN PRN Reason: FEVER Heparin Sodium (Porcine) (Heparin -) 1,000 unit IVPUSH PRN PRN PRN Reason: Heparin Heparin Sodium (Porcine) (Heparin -) 5,000 unit IVPUSH PRN PRN PRN Reason: Heparin Last Admin: 02/08/18 15:15 Dose: 5,000 unit Vancomycin HCl (Vancomycin (Pre-Docked)) 1,000 mg in 250 mls @ 166.667 mls/hr IVPB Q24H CHELLY; Protocol Last Admin: 02/12/18 20:25 Dose: 166.667 mls/hr Heparin Sodium/Dextrose (Heparin Infusion -) 25,000 units in 500 mls @ 16 mls/ hr IVPB TITR CHELLY; Protocol Last Titration: 02/13/18 12:14 Dose: 900 unit/hr, 18 mls/hr Piperacillin Sod/Tazobactam (Sod 2.25 gm/ Dextrose) 50 mls @ 100 mls/hr IVPB Q8H-IV CHELLY; Protocol Last Admin: 02/13/18 17:25 Dose: 100 mls/hr Metoprolol Tartrate (Lopressor Injection -) 5 mg IVPUSH TID [facility] Last Admin: 02/13/18 14:42 Dose: 5 mg Thiamine HCl (Vitamin B1 -) 100 mg PO DAILY [facility] Last Admin: 02/13/18 09:03 Dose: Not Given - Objective Vital Signs: Vital Signs Temperature 99.7 F H 02/13/18 14:36 Pulse Rate 95 H 02/13/18 16:00 Respiratory Rate 25 H 02/13/18 16:00 Blood Pressure 116/64 02/13/18 16:00 O2 Sat by Pulse Oximetry (%) 99 02/13/18 08:13 Constitutional: Yes: Well Nourished, No Distress, Calm Cardiovascular: Yes: Regular Rate and Rhythm Respiratory: Yes: Mechanically Ventilated Genitourinary: Yes: Brenner Present Edema: No Peripheral Pulses WNL: Yes Neurological: Yes: Other (sedated) Labs: CBC, BMP 02/13/18 05:30 02/13/18 05:30 INR, PTT INR 1.81 (0.83-1.09) H 02/13/18 05:30 Fibrinogen 246.0 mg/dL (238-498) 02/13/18 05:30 Problem List - Problems (1) MELITA (acute kidney injury) Assessment/Plan: -Nephrology on board -IVF -Cr Improving -monitor trend -U/S renal/bladder unremarkable Code(s): N17.9 - ACUTE KIDNEY FAILURE, UNSPECIFIED (2) Atrial fibrillation with RVR Assessment/Plan: -On heparin drip -rate controlled -cardiology on board -Tele monitor Code(s): I48.91 - UNSPECIFIED ATRIAL FIBRILLATION (3) Sepsis Assessment/Plan: -upon admission -ID on board -Cultures: Microbiology 02/06/18 17:02 Blood - Peripheral Venous Blood Culture - Final NO GROWTH AFTER 5 DAYS INCUBATION 02/06/18 17:02 Blood - Peripheral Venous Blood Culture - Final NO GROWTH AFTER 5 DAYS INCUBATION 02/06/18 17:02 Urine - Urine - Catheterized Urine Culture - Final NO GROWTH OBTAINED 02/07/18 19:15 Nasopharyngeal Swab Influenza Types A,B Antigen - Final 02/07/18 19:15 Nasopharyngeal Swab - Final -On IV Zosyn and Vanco Code(s): A41.9 - SEPSIS, UNSPECIFIED ORGANISM (4) Toxic metabolic encephalopathy Code(s): G92 - TOXIC ENCEPHALOPATHY (5) Altered mental status Assessment/Plan: -CT head x 2 negative -Seen by Neurology -Cultures so far negative -Still on IVF Code(s): R41.82 - ALTERED MENTAL STATUS, UNSPECIFIED (6) Anemia Assessment/Plan: chronic, at baseline -Check stool OB-pending -Iron profile, B12, thyroid profile unremarkable Code(s): D64.9 - ANEMIA, UNSPECIFIED Assessment/Plan see problem list
[2018-02-13] MEDS: ACETAMINOPHEN 1000 MG/100 ML VIAL (NON FORMULARY) IVPB PRN (17:45)
[2018-02-13 19:08] LABS: ANION GAP 10 MMOL/L (8-16); BLOOD UREA NITROGEN 60 mg/dL (7-18); CALCIUM 9.6 mg/dL (8.5-10.1); CHLORIDE 113 mmol/L (98-107); CO2 16 mmol/L (21-32); CREATININE 2.4 mg/dL (0.55-1.3); GLUCOSE,RANDOM 83 mg/dL (74-106); POTASSIUM 4.5 mmol/L (3.5-5.1); SODIUM 139 mmol/L (136-145)
[2018-02-13] MEDS: VANCOMYCIN 1 GRAM (PRE-DOCKED) 1,000 MG/250 ML BAG IVPB SCH (20:37)
[2018-02-14] MEDS: ACETAMINOPHEN 1000 MG/100 ML VIAL (NON FORMULARY) IVPB PRN ×2 (00:35→13:41)
[2018-02-14] MEDS: PIPERACILLIN/TAZOB 2.25 GM 2.25 GM in DEXTROSE 5%-WATER - 50 ML IVPB SCH ×3 (02:09→18:17)
[2018-02-14] MEDS: METOPROLOL TARTRATE 5 MG/5 ML VIAL IVPUSH SCH ×3 (05:55→21:29)
[2018-02-14] MEDS: HEPARIN INFUSION - 25,000 UNITS/500 ML INFUS.BAG IVPB SCH (05:55)
[2018-02-14 06:24] LABS: BASO % 0.5 % (0-2.0); CORRECTED WBC 3.54 K/mm3; EOS % 1.7 % (0-4.5); HEMATOCRIT 27.9 % (35.4-49); HEMOGLOBIN 9.1 GM/dL (11.7-16.9); MCH 29.4 pg (25.7-33.7); MCHC 32.7 g/dl (32.0-35.9); MEAN CELL VOLUME 89.7 fl (80-96); MEAN PLT VOLUME 9.3 fl (7.5-11.1); MONO % 4.8 % (3.8-10.2); PLATELET COUNT 148 K/MM3 (134-434); RBC 3.11 M/mm3 (4.00-5.60)
[2018-02-14] MEDS ORDERED: ALBUMIN HUMAN 5% 500 ML IV SOLUTION IVPB ONE (07:00)
[2018-02-14 07:14] LABS: ARTERIAL BLD GAS O2 SATURATION 96.4 % (90-98.9); ARTERIAL BLOOD GAS BASE EXCESS -6.6 meq/l (-2-2); ARTERIAL BLOOD GAS PCO2 32.4 mmHg (35-45); ARTERIAL BLOOD GAS PO2 97.9 mmHg (70-100); ARTERIAL BLOOD GAS pH 7.35 (7.35-7.45)
[2018-02-14 07:51] LABS: ALBUMIN 2.3 g/dl (3.4-5.0); ALK PHOS 86 U/L (45-117); ANION GAP 8 MMOL/L (8-16); BILIRUBIN,TOTAL 0.4 mg/dL (0.2-1); BLOOD UREA NITROGEN 58 mg/dL (7-18); CHLORIDE 111 mmol/L (98-107); CO2 18 mmol/L (21-32); CREATININE 2.4 mg/dL (0.55-1.3); GLUCOSE,RANDOM 128 mg/dL (74-106); MAGNESIUM 2.2 mg/dL (1.8-2.4); PHOSPHOROUS 5.1 mg/dL (2.5-4.9); POTASSIUM 4.1 mmol/L (3.5-5.1); SGOT/AST 123 U/L (15-37); SGPT/ALT 49 U/L (13-61); SODIUM 137 mmol/L (136-145); TOT PROT 9.2 g/dl (6.4-8.2)
[2018-02-14 08:06] LABS: IGA IMMUNOGLOBULIN 13 mg/dL (61-437); IGM IMMUNOGLOBULIN <5 mg/dL (15-143)
[2018-02-14 08:06] LABS: IGA IMMUNOGLOBULIN 7 mg/dL (61-437); IGM IMMUNOGLOBULIN <5 mg/dL (15-143)
[2018-02-14] MEDS ORDERED: PIPERACILLIN/TAZOBACTAM 2.25 GM VIAL IVPB ONE ×2 (09:16→17:40)
[2018-02-14] MEDS ORDERED: DEXTROSE 5%-WATER - 50 ML IVPB ONE ×2 (09:17→17:40)
[2018-02-14] MEDS: THIAMINE HCL 100 MG TABLET (FP) PO SCH (09:23)
--- NOTE | 2018-02-14 10:03 | PN ---
Progress Note (short form) - Note Progress Note: Patient seen and examined at bedside in the ICU Intubated and sedated failed IV access for pharesis. [facility] to return later today after access achieved Spiked fever last night on ABx for RLL pneumonia Vital Signs Temp 99.4 F 02/14/18 08:00 Pulse 95 H 02/14/18 08:00 Resp 18 02/14/18 08:08 BP 108/68 02/14/18 08:00 Pulse Ox 100 02/14/18 07:14 Intake & Output 02/13/18 02/13/18 02/14/18 11:59 23:59 11:59 Intake Total 209 880 496 Output Total 900 1500 400 Balance -691 -620 96 Weight 81.102 kg 81.391 kg Intake: IV 209 200 216 HEPARIN INFUSION - 25,000 209 200 216 units In 500 ml @ 800 UNIT/HR 16 mls/hr IVPB TITR [facility] Rx#:[id number] IVPB 650 50 Tube Feeding 20 150 Tube Irrigant 10 80 Output: Urine 900 1500 400 Brenner 900 1500 400 Other: Voiding Method Indwelling Catheter Indwelling Catheter Indwelling Catheter Bowel Movement No Yes # Bowel Movements 1 Body Mass Index (BMI) 24.1 Weight Measurement Method Built in Bedscale Built in Bedscale PE: Lying in bed intubated opens eyes to name. yesterday was able to very weakly squeeze my hand with his left Dry mucous membranes. Poor dentition PERRL Irregular No murmur soft non tender non distended no lower extremity edema 02/13/18 02/13/18 02/14/18 05:30 17:50 05:30 WBC 4.9 4.0 Corrected WBC (auto) 4.34 3.54 RBC 3.11 L Hgb 9.1 L Hct 27.9 L MCV 89.7 MCHC 32.7 RDW 16.0 H Plt Count 148 Neutrophils % 79.0 Lymphocytes % 14.0 D Monocytes % 4.8 Eosinophils % 1.7 D Basophils % 0.5 Sodium 139 Potassium 4.5 Chloride 113 H Carbon Dioxide 16 L Anion Gap 10 BUN 60 H Creatinine 2.4 H 02/14/18 05:30 WBC Corrected WBC (auto) RBC Hgb Hct MCV MCHC RDW Plt Count Neutrophils % Lymphocytes % Monocytes % Eosinophils % Basophils % Sodium 137 Potassium 4.1 Chloride 111 H Carbon Dioxide 18 L Anion Gap 8 BUN 58 H Creatinine 2.4 H 02/12/18 19:45 Blood Culture - Preliminary Blood - Peripheral Venous NO GROWTH OBTAINED AFTER 24 HOURS, INCUBATION TO CONTINUE FOR 4 DAYS. 02/12/18 19:20 Blood Culture - Preliminary Blood - Peripheral Venous NO GROWTH OBTAINED AFTER 24 HOURS, INCUBATION TO CONTINUE FOR 4 DAYS. 02/13/18 14:30 Gram Stain - Pending Sputum - Endotrachea Suction/Ventilator Sputum Culture - Pending 02/13/18 14:30 Legionella Antigen - Pending Urine - Urine Brenner Streptococcus pneumoniae Antigen (M - Pending 02/06/18 17:02 Blood Culture - Final Blood - Peripheral Venous NO GROWTH AFTER 5 DAYS INCUBATION 02/06/18 17:02 Blood Culture - Final Blood - Peripheral Venous NO GROWTH AFTER 5 DAYS INCUBATION 02/06/18 17:02 Urine Culture - Final Urine - Urine - Catheterized NO GROWTH OBTAINED 02/07/18 19:15 Influenza Types A,B Antigen - Final Nasopharyngeal Swab - Final 77M with multiple medical problems presents to the hospital after being found down by neighbors found to have MELITA and hypercalcemia with altered mental status. 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 Pharesis to be done today will establish central line access with a shiley SPEP noted total protein and globulins elevated [place]/lambda light chains-pending M spike elevated elevated at 6.8 previously 4.7 Will send immunoglobulins IgG IgA IgM-IgG elevated rest of immunoglobulins pending bone (metastatic) survey and if negative will get Bone scan.- when acute issues resolved Of note Bone scan may not show any lesions if it is from multiple myeloma but will sold solid tumors Can consider MRI of C/T/L spine if patient stops moving lower extremities or concern for lytic lesions of the spine. At this time the patient is moving his lower extremities so will hold off for now. PTH, PTHrP pending Vit D pending low ABx per ID Thank you for this consult
--- NOTE | 2018-02-14 10:23 | PN ---
Progress Note, Physician Chief Complaint: PATIENT ASLEEP COMFIRTABLE CONFUSED STILL - Current Medication List Current Medications: Active Medications Acetaminophen (Tylenol Suppository -) 650 mg ME Q6H PRN PRN Reason: FEVER Last Admin: 02/12/18 18:10 Dose: 650 mg Acetaminophen (Ofirmev Injection -) 1,000 mg IVPB Q6H PRN PRN Reason: FEVER Last Admin: 02/14/18 00:35 Dose: 1,000 mg Heparin Sodium (Porcine) (Heparin -) 1,000 unit IVPUSH PRN PRN PRN Reason: Heparin Heparin Sodium (Porcine) (Heparin -) 5,000 unit IVPUSH PRN PRN PRN Reason: Heparin Last Admin: 02/08/18 15:15 Dose: 5,000 unit Vancomycin HCl (Vancomycin (Pre-Docked)) 1,000 mg in 250 mls @ 166.667 mls/hr IVPB Q24H [facility]; Protocol Last Admin: 02/13/18 20:37 Dose: 166.667 mls/hr Heparin Sodium/Dextrose (Heparin Infusion -) 25,000 units in 500 mls @ 16 mls/ hr IVPB TITR [facility]; Protocol Last Titration: 02/14/18 07:08 Dose: 0 unit/hr, 0 mls/hr Piperacillin Sod/Tazobactam (Sod 2.25 gm/ Dextrose) 50 mls @ 100 mls/hr IVPB Q8H-IV [facility]; Protocol Last Admin: 02/14/18 09:22 Dose: 100 mls/hr Metoprolol Tartrate (Lopressor Injection -) 5 mg IVPUSH TID [facility] Last Admin: 02/14/18 05:55 Dose: 5 mg Thiamine HCl (Vitamin B1 -) 100 mg PO DAILY [facility] Last Admin: 02/14/18 09:23 Dose: 100 mg - Objective Vital Signs: Vital Signs Temperature 99.4 F 02/14/18 08:00 Pulse Rate 95 H 02/14/18 08:00 Respiratory Rate 16 02/14/18 10:10 Blood Pressure 108/68 02/14/18 08:00 O2 Sat by Pulse Oximetry (%) 100 02/14/18 07:14 Constitutional: Yes: Mild Distress Eyes: Yes: WNL HENT: Yes: WNL Neck: Yes: WNL Cardiovascular: Yes: Pulse Irregular Respiratory: Yes: Diminished, On Nasal O2 Gastrointestinal: Yes: Soft Genitourinary: Yes: Incontinence Musculoskeletal: Yes: Muscle Weakness Edema: Yes Integumentary: Yes: Other Neurological: Yes: Confusion, Pre-Existing Deficit ...Motor Strength: LLE, RLE Psychiatric: Yes: Other Labs: CBC, BMP 02/14/18 05:30 02/14/18 05:30 INR, PTT INR 1.81 (0.83-1.09) H 02/13/18 05:30 Fibrinogen 246.0 mg/dL (238-498) 02/13/18 05:30 Problem List - Problems (1) MELITA (acute kidney injury) Code(s): N17.9 - ACUTE KIDNEY FAILURE, UNSPECIFIED (2) Atrial fibrillation with RVR Code(s): I48.91 - UNSPECIFIED ATRIAL FIBRILLATION (3) Hyperlipidemia Code(s): E78.5 - HYPERLIPIDEMIA, UNSPECIFIED Qualifiers: Hyperlipidemia type: pure hypercholesterolemia Qualified Code(s): E78.00 - Pure hypercholesterolemia, unspecified; E78.0 - Pure hypercholesterolemia (4) Hypothermia Code(s): T68.XXXA - HYPOTHERMIA, INITIAL ENCOUNTER Qualifiers: Encounter type: initial encounter Qualified Code(s): T68.XXXA - Hypothermia , initial encounter (5) Cefmm-wo-gyvnsdv kidney injury Code(s): N17.9 - ACUTE KIDNEY FAILURE, UNSPECIFIED; N18.9 - CHRONIC KIDNEY DISEASE, UNSPECIFIED Qualifiers: Acute renal failure type: unspecified Chronic kidney disease stage: unspecified stage Qualified Code(s): N17.9 - Acute kidney failure, unspecified ; N18.9 - Chronic kidney disease, unspecified (6) Generalized weakness Code(s): R53.1 - WEAKNESS (7) History of ETOH abuse Code(s): Z87.898 - PERSONAL HISTORY OF OTHER SPECIFIED CONDITIONS (8) Hypercalcemia Code(s): E83.52 - HYPERCALCEMIA (9) Hypertrophic cardiomyopathy Code(s): I42.2 - OTHER HYPERTROPHIC CARDIOMYOPATHY (10) Toxic metabolic encephalopathy Code(s): G92 - TOXIC ENCEPHALOPATHY (11) Sepsis Code(s): A41.9 - SEPSIS, UNSPECIFIED ORGANISM Assessment/Plan TOXIC METABOLIC ENCEPHALOPATHY NEURO AND CARDIO EVAL HEPARIN IV FOR AC AFIB SWALLOW EVAL WITH DYSPHAGIA PRECAUTIONS MONITOR RENAL FUNCTION STILL WEAK/AT FALL RISKS NEURO CHECKS PT/SNF WHEN EATING AND MORE MEDICALLY STABLE FREQUENT TURNING
[2018-02-14 11:18] LABS: ACANTHOCYTES 0; ANISOCYTOSIS 0; HELMET CELLS 0; HOWELL-JOLLY BODIES 0; MACROCYTOSIS 0; OVALOCYTE 0; ROULEAU 0; SICKELED CELLS 0; TARGET CELLS 0; TEAR DROP CELLS 0; TOXIC GRANULATION 0
--- NOTE | 2018-02-14 11:24 | PN ---
Progress Note (short form) - Note Progress Note: Renal follow up for Hypercalcemia/MELITA Pt seen and examined in the ICU Vital Signs Temperature 99.4 F 02/14/18 08:00 Pulse Rate 96 H 02/14/18 10:00 Respiratory Rate 16 02/14/18 10:10 Blood Pressure 123/89 02/14/18 10:00 O2 Sat by Pulse Oximetry (%) 100 02/14/18 07:14 Intake & Output 02/11/18 02/12/18 02/13/18 02/14/18 23:59 23:59 23:59 23:59 Intake Total 1744 1089 496 Output Total 3100 2400 400 Balance -1356 -1311 96 Weight 81.102 kg 81.391 kg CBC, BMP 02/14/18 05:30 02/14/18 05:30 Laboratory Tests 02/12/18 02/13/18 02/14/18 23:04 05:30 05:30 MCV 89.7 Phosphorus Magnesium 1.7 L Albumin 3.3 L Urine Protein Negative Urine Blood 2+ H 02/14/18 05:30 MCV Phosphorus 5.1 H Magnesium 2.2 Albumin 2.3 L Urine Protein Urine Blood Current Medications Acetaminophen (Tylenol Suppository -) 650 mg MN Q6H PRN PRN Reason: FEVER Last Admin: 02/12/18 18:10 Dose: 650 mg Acetaminophen (Ofirmev Injection -) 1,000 mg IVPB Q6H PRN PRN Reason: FEVER Last Admin: 02/14/18 00:35 Dose: 1,000 mg Heparin Sodium (Porcine) (Heparin -) 1,000 unit IVPUSH PRN PRN PRN Reason: Heparin Heparin Sodium (Porcine) (Heparin -) 5,000 unit IVPUSH PRN PRN PRN Reason: Heparin Last Admin: 02/08/18 15:15 Dose: 5,000 unit Vancomycin HCl (Vancomycin (Pre-Docked)) 1,000 mg in 250 mls @ 166.667 mls/hr IVPB Q24H [facility]; Protocol Last Admin: 02/13/18 20:37 Dose: 166.667 mls/hr Heparin Sodium/Dextrose (Heparin Infusion -) 25,000 units in 500 mls @ 16 mls/ hr IVPB TITR [facility]; Protocol Last Titration: 02/14/18 07:08 Dose: 0 unit/hr, 0 mls/hr Piperacillin Sod/Tazobactam (Sod 2.25 gm/ Dextrose) 50 mls @ 100 mls/hr IVPB Q8H-IV [facility]; Protocol Last Admin: 02/14/18 09:22 Dose: 100 mls/hr Metoprolol Tartrate (Lopressor Injection -) 5 mg IVPUSH TID [facility] Last Admin: 02/14/18 05:55 Dose: 5 mg Thiamine HCl (Vitamin B1 -) 100 mg PO DAILY [facility] Last Admin: 02/14/18 09:23 Dose: 100 mg 77 year old gentleman with hx of CKD, Afib on A/C, CAD, CKD, Hypertension, Hyperlipidemia, PVD who presented with AMS/Confusion and found to have MELITA. #MELITA (FeNa was 2.1% indicating tubular injury, US showed no stones or obstruction, UA w/o protein but UPCR ~0.5 indicating non-albumin proteinuria) #AMS of unclear etiology (metabolic encephalopathy) #Anemia #Hypercalcemia of Malignancy (PTH is low) #Hyperdense lesion on US of the kidney #Normal anion gap metabolic acidosis Mack Miller DO
[2018-02-14 11:39] LABS: PLATELET ESTIMATE ADEQUATE
--- NOTE | 2018-02-14 11:40 | PN ---
Progress Note, Physician History of Present Illness: Intubated on mechanical ventilation Opens eyes to calling name Remains febrile Repeat BC no growth - Current Medication List Current Medications: Active Medications Acetaminophen (Tylenol Suppository -) 650 mg VT Q6H PRN PRN Reason: FEVER Last Admin: 02/12/18 18:10 Dose: 650 mg Acetaminophen (Ofirmev Injection -) 1,000 mg IVPB Q6H PRN PRN Reason: FEVER Last Admin: 02/14/18 00:35 Dose: 1,000 mg Heparin Sodium (Porcine) (Heparin -) 1,000 unit IVPUSH PRN PRN PRN Reason: Heparin Heparin Sodium (Porcine) (Heparin -) 5,000 unit IVPUSH PRN PRN PRN Reason: Heparin Last Admin: 02/08/18 15:15 Dose: 5,000 unit Vancomycin HCl (Vancomycin (Pre-Docked)) 1,000 mg in 250 mls @ 166.667 mls/hr IVPB Q24H [facility]; Protocol Last Admin: 02/13/18 20:37 Dose: 166.667 mls/hr Heparin Sodium/Dextrose (Heparin Infusion -) 25,000 units in 500 mls @ 16 mls/ hr IVPB TITR [facility]; Protocol Last Titration: 02/14/18 07:08 Dose: 0 unit/hr, 0 mls/hr Piperacillin Sod/Tazobactam (Sod 2.25 gm/ Dextrose) 50 mls @ 100 mls/hr IVPB Q8H-IV [facility]; Protocol Last Admin: 02/14/18 09:22 Dose: 100 mls/hr Fentanyl 500 mcg/ Dextrose 100 mls @ 5 mls/hr IVPB TITR [facility] Metoprolol Tartrate (Lopressor Injection -) 5 mg IVPUSH TID [facility] Last Admin: 02/14/18 05:55 Dose: 5 mg Thiamine HCl (Vitamin B1 -) 100 mg PO DAILY [facility] Last Admin: 02/14/18 09:23 Dose: 100 mg - Objective Vital Signs: Vital Signs Temperature 99.4 F 02/14/18 08:00 Pulse Rate 96 H 02/14/18 10:00 Respiratory Rate 16 02/14/18 10:10 Blood Pressure 123/89 02/14/18 10:00 O2 Sat by Pulse Oximetry (%) 100 02/14/18 07:14 Constitutional: Yes: No Distress Cardiovascular: Yes: Regular Rate and Rhythm, S1, S2 Respiratory: Yes: Mechanically Ventilated Gastrointestinal: Yes: Normal Bowel Sounds, Soft. No: Tenderness Edema: No Labs: CBC, BMP 02/14/18 05:30 02/14/18 05:30 INR, PTT INR 1.81 (0.83-1.09) H 02/13/18 05:30 Fibrinogen 246.0 mg/dL (238-498) 02/13/18 05:30 Assessment/Plan Respiratory failure RLL pneumonia Toxic metabolic encephalopathy Hypercalcemia Renal failure Suspected myeloma Repeat BC pending Suctioned sputum c/s, urine legionella ag obtained Continue broad spectrum antimicrobial coverage- zosyn
[2018-02-14] MEDS ORDERED: fentaNYL CITRATE 250 MCG/5 ML VIAL ONE (11:54)
[2018-02-14] MEDS: FENTANYL INJECTION 500 MCG in DEXTROSE 5%-WATER - 90 ML IVPB SCH (11:59)
--- NOTE | 2018-02-14 12:18 | PN ---
Teaching Attending Note Name of Resident: Sebastián Oneil ATTENDING PHYSICIAN STATEMENT I saw and evaluated the patient. I reviewed the resident's note and discussed the case with the resident. I agree with the resident's findings and plan as documented. SUBJECTIVE: Pt seen and examined in the ICU. Remains intubated, poorly responsive off sedation. Tachypneic on volume assist control. OBJECTIVE: Vital Signs Period Temp Pulse Resp BP Sys/Ariza Pulse Ox Last 24 Hr 99.4 F-101.8 F 78-119 14-26 95-123/64-89 99-100 Intake & Output 02/11/18 02/12/18 02/13/18 02/14/18 23:59 23:59 23:59 23:59 Intake Total 1744 1089 496 Output Total 3100 2400 400 Balance -1356 -1311 96 Weight 81.102 kg 81.391 kg Gen: intubated, poorly responsive, tachypneic Heart: tachycardic, irregular Lung: decreased breath sounds at the bases Abd: soft, nontender Ext: no edema CBC, BMP 02/14/18 05:30 02/14/18 05:30 Active Medications Acetaminophen (Tylenol Suppository -) 650 mg VA Q6H PRN PRN Reason: FEVER Last Admin: 02/12/18 18:10 Dose: 650 mg Acetaminophen (Ofirmev Injection -) 1,000 mg IVPB Q6H PRN PRN Reason: FEVER Last Admin: 02/14/18 00:35 Dose: 1,000 mg Heparin Sodium (Porcine) (Heparin -) 1,000 unit IVPUSH PRN PRN PRN Reason: Heparin Heparin Sodium (Porcine) (Heparin -) 5,000 unit IVPUSH PRN PRN PRN Reason: Heparin Last Admin: 02/08/18 15:15 Dose: 5,000 unit Vancomycin HCl (Vancomycin (Pre-Docked)) 1,000 mg in 250 mls @ 166.667 mls/hr IVPB Q24H [facility]; Protocol Last Admin: 02/13/18 20:37 Dose: 166.667 mls/hr Heparin Sodium/Dextrose (Heparin Infusion -) 25,000 units in 500 mls @ 16 mls/ hr IVPB TITR [facility]; Protocol Last Titration: 02/14/18 07:08 Dose: 0 unit/hr, 0 mls/hr Piperacillin Sod/Tazobactam (Sod 2.25 gm/ Dextrose) 50 mls @ 100 mls/hr IVPB Q8H-IV [facility]; Protocol Last Admin: 02/14/18 09:22 Dose: 100 mls/hr Fentanyl 500 mcg/ Dextrose 100 mls @ 5 mls/hr IVPB TITR [facility]; Protocol Last Admin: 02/14/18 11:59 Dose: 25 mcg/hr, 5 mls/hr Metoprolol Tartrate (Lopressor Injection -) 5 mg IVPUSH Q8H [facility] Pantoprazole Sodium (Protonix Iv) 40 mg IVPUSH DAILY [facility] Thiamine HCl (Vitamin B1 -) 100 mg PO DAILY [facility] Last Admin: 02/14/18 09:23 Dose: 100 mg ASSESSMENT AND PLAN: Acute Hypoxic Respiratory Failure Altered Mental Status Pneumonia r/o Multiple Myeloma Hypercalcemia Acute on Chronic Renal Failure Metabolic Acidosis LV Diastolic Dysfunction Atrial Fibrillation CAD +Troponins likely Demand Ischemia PAD Hyperlipidemia HTN - continue antibiotics - f/u cultures - plasmapharesis per oncology, will place catheter - f/u blood viscosity - f/u pending serologies - s/p Zometa, monitor calcium level - rate control - continue anticoagulation - minimize sedation to assess mental status but start low dose fentanyl given labored breathing - not a candidate for weaning at this time - enteral feeds - DVT/GI prophylaxis - continue ICU monitoring critical care time spent in reviewing chart, evaluating patient and formulating plan 35 min
--- NOTE | 2018-02-14 13:03 | PROC ---
Central Line Insertion Indication: Poor Venous Access Risks and Benefits Explained: Yes Consent on Chart: Yes Central Line: Dialysis Cath, Tri Lumen Anesthesia: 1% Lidocaine Sterile Technique: Yes Ultrasound Guided Assistance: Yes Position: Right Internal Jugular Post Insertion: Yes: Bilateral Chest Expansion, Chest X-Ray Ordered Sterile Dressing Applied: Yes
--- NOTE | 2018-02-14 13:08 | PN ---
Progress Note (short form) - Note Progress Note: Renal follow up for Hypercalcemia/MELITA Pt seen and examined in the ICU on vent no overnight event making urine Vital Signs Temperature 99.4 F 02/14/18 08:00 Pulse Rate 96 H 02/14/18 10:00 Respiratory Rate 16 02/14/18 10:10 Blood Pressure 123/89 02/14/18 10:00 O2 Sat by Pulse Oximetry (%) 100 02/14/18 07:14 Intake & Output 02/11/18 02/12/18 02/13/18 02/14/18 23:59 23:59 23:59 23:59 Intake Total 1744 1089 496 Output Total 3100 2400 400 Balance -1356 -1311 96 Weight 81.102 kg 81.391 kg NAD on vent via ET Tube RRR Dec BS, Course BS No Le edema CBC, BMP 02/14/18 05:30 02/14/18 05:30 Laboratory Tests 02/12/18 02/13/18 02/14/18 23:04 05:30 05:30 MCV 89.7 Phosphorus Magnesium 1.7 L Albumin 3.3 L Urine Protein Negative Urine Blood 2+ H 02/14/18 05:30 MCV Phosphorus 5.1 H Magnesium 2.2 Albumin 2.3 L Urine Protein Urine Blood Current Medications Acetaminophen (Tylenol Suppository -) 650 mg ND Q6H PRN PRN Reason: FEVER Last Admin: 02/12/18 18:10 Dose: 650 mg Acetaminophen (Ofirmev Injection -) 1,000 mg IVPB Q6H PRN PRN Reason: FEVER Last Admin: 02/14/18 00:35 Dose: 1,000 mg Heparin Sodium (Porcine) (Heparin -) 1,000 unit IVPUSH PRN PRN PRN Reason: Heparin Heparin Sodium (Porcine) (Heparin -) 5,000 unit IVPUSH PRN PRN PRN Reason: Heparin Last Admin: 02/08/18 15:15 Dose: 5,000 unit Vancomycin HCl (Vancomycin (Pre-Docked)) 1,000 mg in 250 mls @ 166.667 mls/hr IVPB Q24H [facility]; Protocol Last Admin: 02/13/18 20:37 Dose: 166.667 mls/hr Heparin Sodium/Dextrose (Heparin Infusion -) 25,000 units in 500 mls @ 16 mls/ hr IVPB TITR [facility]; Protocol Last Titration: 02/14/18 07:08 Dose: 0 unit/hr, 0 mls/hr Piperacillin Sod/Tazobactam (Sod 2.25 gm/ Dextrose) 50 mls @ 100 mls/hr IVPB Q8H-IV [facility]; Protocol Last Admin: 02/14/18 09:22 Dose: 100 mls/hr Metoprolol Tartrate (Lopressor Injection -) 5 mg IVPUSH TID [facility] Last Admin: 02/14/18 05:55 Dose: 5 mg Thiamine HCl (Vitamin B1 -) 100 mg PO DAILY [facility] Last Admin: 02/14/18 09:23 Dose: 100 mg 77 year old gentleman with hx of CKD, Afib on A/C, CAD, CKD, Hypertension, Hyperlipidemia, PVD who presented with AMS/Confusion and found to have MELITA. #MELITA (FeNa was 2.1% indicating tubular injury, US showed no stones or obstruction, UA w/o protein but UPCR ~0.5 indicating non-albumin proteinuria) #AMS of unclear etiology (metabolic encephalopathy) #Anemia #Hypercalcemia of Malignancy (PTH is low) #Hyperdense lesion on US of the kidney #Normal anion gap metabolic acidosis Renal function unchanged and pt is making urine no volume overload, metabolic acidosis to warrent [facility] continue plasmaexchange as per Heme Trend renal function and electrolytes keep MAP > 65 Hgb stable, GI follow up f/u pathology regarding biopsy from EGD Urology consult for Renal Lesion Trend serum bicarb goal > 20 Mack Miller DO
[2018-02-14] MEDS: PANTOPRAZOLE SODIUM 40 MG VIAL IVPUSH SCH (13:16)
--- NOTE | 2018-02-14 14:58 | PN ---
Physical Exam: SUBJECTIVE: Patient seen and examined at bedside. He remains intubated and sedated. A central line was placed in the Right IJ for access and so that plasmapharesis can take place. He spiked a fever overnight which responded to tylenol. OBJECTIVE: Vital Signs Period Temp Pulse Resp BP Sys/Ariza Pulse Ox Last 24 Hr 99.4 F-101.8 F 78-119 14-26 95-123/64-89 99-100 GENERAL: Intubated and sedated. HEAD: Normal with no signs of trauma. EYES: Pupils equal, round and reactive to light, sclera anicteric, conjunctiva clear. EARS, NOSE, THROAT: Ears normal, nares patent, oropharynx clear without exudates. Moist mucous membranes. NECK: Supple without lymphadenopathy, no JVD, or masses. LUNGS: Diffuse wheezes and rales bilaterally in both lung rodriguez. No accessory muscle use. HEART: regular rate and irregular rhythm. ABDOMEN: Soft, normoactive bowel sounds, no guarding, no rebound, no masses. No hepatomegaly or splenomegaly. MUSCULOSKELETAL: Normal range of motion at all joints. No bony deformities or tenderness. UPPER EXTREMITIES: 2+ pulses, warm, well-perfused. No cyanosis. No clubbing. Cap refill <2 seconds. No peripheral edema. LOWER EXTREMITIES: 2+ pulses, warm, well-perfused. No calf tenderness. No peripheral edema. NEUROLOGICAL: Normoreflexic. ESTEPHANIE. SKIN: Warm, diaphoretic, normal turgor, no rashes or lesions noted. Laboratory Results - last 24 hr 02/12/18 02/12/18 02/13/18 21:45 21:45 05:30 WBC Corrected WBC (auto) RBC Hgb Hct MCV MCH MCHC RDW Plt Count MPV Absolute Neuts (auto) Neutrophils % Neutrophils % (Manual) Band Neutrophils % Lymphocytes % Lymphocytes % (Manual) Monocytes % Monocytes % (Manual) Eosinophils % Eosinophils % (Manual) Basophils % Basophils % (Manual) Myelocytes % (Man) Promyelocytes % (Man) Blast Cells % (Manual) Nucleated RBC % Metamyelocytes Hypochromia Toxic Granulation Dohle Bodies Platelet Estimate Polychromasia Poikilocytosis Basophilic Stippling Anisocytosis Microcytosis Macrocytosis Spherocytes Sickle Cells Target Cells Tear Drop Cells Ovalocytes Stomatocytes Helmet Cells Foote-Orick Bodies [place] Rings Rose Marie Cells Acanthocytes (Spur) Rouleaux Fragmented RBCs Schistocytes PTT (Actin FS) Puncture Site ABG pH ABG pCO2 at Pt Temp ABG pO2 at Pt Temp ABG HCO3 ABG O2 Sat (Measured) ABG O2 Content ABG Base Excess Vinny Test Oxygen Flow Rate Vent Rate PEEP Sodium Potassium Chloride Carbon Dioxide Anion Gap BUN Creatinine Creat Clearance w eGFR Random Glucose Lactic Acid Calcium Phosphorus Magnesium Total Bilirubin AST ALT Alkaline Phosphatase Total Protein Albumin Vancomycin Pre-Dose IgG 6954 H 6294 H 3159 H IgA 13 L 7 L IgM <5 L <5 L 02/13/18 02/13/18 02/13/18 05:30 17:50 17:50 WBC Corrected WBC (auto) RBC Hgb Hct MCV MCH MCHC RDW Plt Count MPV Absolute Neuts (auto) Neutrophils % Neutrophils % (Manual) Band Neutrophils % Lymphocytes % Lymphocytes % (Manual) Monocytes % Monocytes % (Manual) Eosinophils % Eosinophils % (Manual) Basophils % Basophils % (Manual) Myelocytes % (Man) Promyelocytes % (Man) Blast Cells % (Manual) Nucleated RBC % Metamyelocytes Hypochromia Toxic Granulation Dohle Bodies Platelet Estimate Polychromasia Poikilocytosis Basophilic Stippling Anisocytosis Microcytosis Macrocytosis Spherocytes Sickle Cells Target Cells Tear Drop Cells Ovalocytes Stomatocytes Helmet Cells Foote-Orick Bodies [place] Rings Xenia Cells Acanthocytes (Spur) Rouleaux Fragmented RBCs Schistocytes PTT (Actin FS) Puncture Site ABG pH ABG pCO2 at Pt Temp ABG pO2 at Pt Temp ABG HCO3 ABG O2 Sat (Measured) ABG O2 Content ABG Base Excess Vinny Test Oxygen Flow Rate Vent Rate PEEP Sodium 139 Potassium 4.5 Chloride 113 H Carbon Dioxide 16 L Anion Gap 10 BUN 60 H Creatinine 2.4 H Creat Clearance w eGFR 26.25 Random Glucose 83 Lactic Acid Calcium 9.6 Phosphorus Magnesium Total Bilirubin AST ALT Alkaline Phosphatase Total Protein Albumin Vancomycin Pre-Dose 23.0 IgG 3009 H IgA IgM 02/13/18 02/14/18 02/14/18 17:50 05:30 05:30 WBC 4.0 Corrected WBC (auto) 3.54 RBC 3.11 L Hgb 9.1 L Hct 27.9 L MCV 89.7 MCH 29.4 MCHC 32.7 RDW 16.0 H Plt Count 148 MPV 9.3 Absolute Neuts (auto) 3.1 Neutrophils % 79.0 Neutrophils % (Manual) 68.4 D Band Neutrophils % 5.3 Lymphocytes % 14.0 D Lymphocytes % (Manual) 12.6 D Monocytes % 4.8 Monocytes % (Manual) 6 D Eosinophils % 1.7 D Eosinophils % (Manual) 1.1 Basophils % 0.5 Basophils % (Manual) 0.0 Myelocytes % (Man) 2 Promyelocytes % (Man) 0 Blast Cells % (Manual) 0 Nucleated RBC % 13 H* Metamyelocytes 2 D Hypochromia 0 Toxic Granulation 0 Dohle Bodies 0 Platelet Estimate Adequate Polychromasia 0 Poikilocytosis 0 Basophilic Stippling 0 Anisocytosis 0 Microcytosis 0 Macrocytosis 0 Spherocytes 0 Sickle Cells 0 Target Cells 0 Tear Drop Cells 0 Ovalocytes 0 Stomatocytes 0 Helmet Cells 0 Foote-Orick Bodies 0 [place]et Rings 0 Xenia Cells 0 Acanthocytes (Spur) 0 Rouleaux 0 Fragmented RBCs 0 Schistocytes 0 PTT (Actin FS) 93.0 H Puncture Site ABG pH ABG pCO2 at Pt Temp ABG pO2 at Pt Temp ABG HCO3 ABG O2 Sat (Measured) ABG O2 Content ABG Base Excess Vinny Test Oxygen Flow Rate Vent Rate PEEP Sodium Potassium Chloride Carbon Dioxide Anion Gap BUN Creatinine Creat Clearance w eGFR Random Glucose Lactic Acid 1.3 Calcium Phosphorus Magnesium Total Bilirubin AST ALT Alkaline Phosphatase Total Protein Albumin Vancomycin Pre-Dose IgG IgA IgM 02/14/18 02/14/18 05:30 06:00 WBC Corrected WBC (auto) RBC Hgb Hct MCV MCH MCHC RDW Plt Count MPV Absolute Neuts (auto) Neutrophils % Neutrophils % (Manual) Band Neutrophils % Lymphocytes % Lymphocytes % (Manual) Monocytes % Monocytes % (Manual) Eosinophils % Eosinophils % (Manual) Basophils % Basophils % (Manual) Myelocytes % (Man) Promyelocytes % (Man) Blast Cells % (Manual) Nucleated RBC % Metamyelocytes Hypochromia Toxic Granulation Dohle Bodies Platelet Estimate Polychromasia Poikilocytosis Basophilic Stippling Anisocytosis Microcytosis Macrocytosis Spherocytes Sickle Cells Target Cells Tear Drop Cells Ovalocytes Stomatocytes Helmet Cells Foote-Orick Bodies [place] Rings Rose Marie Cells Acanthocytes (Spur) Rouleaux Fragmented RBCs Schistocytes PTT (Actin FS) Puncture Site Right radial ABG pH 7.35 ABG pCO2 at Pt Temp 32.4 L ABG pO2 at Pt Temp 97.9 D ABG HCO3 17.5 L ABG O2 Sat (Measured) 96.4 ABG O2 Content 16.4 ABG Base Excess -6.6 L Vinny Test No Result Required. Oxygen Flow Rate 30 Vent Rate 12 PEEP 0.0 Sodium 137 Potassium 4.1 Chloride 111 H Carbon Dioxide 18 L Anion Gap 8 BUN 58 H Creatinine 2.4 H Creat Clearance w eGFR 26.25 Random Glucose 128 H Lactic Acid Calcium 9.0 Phosphorus 5.1 H Magnesium 2.2 Total Bilirubin 0.4 AST 123 H ALT 49 Alkaline Phosphatase 86 Total Protein 9.2 H Albumin 2.3 L Vancomycin Pre-Dose IgG IgA IgM Active Medications Generic Name Dose Route Start Last Admin Trade Name Freq PRN Reason Stop Dose Admin Acetaminophen 650 mg 02/08/18 05:44 02/12/18 18:10 Tylenol Suppository - [place] 650 mg Q6H PRN Administration FEVER Acetaminophen 1,000 mg 02/13/18 17:04 02/14/18 13:41 Ofirmev Injection - IVPB 1,000 mg Q6H PRN Administration FEVER Heparin Sodium (Porcine) 1,000 unit 02/08/18 05:44 Heparin - IVPUSH PRN PRN Heparin Heparin Sodium (Porcine) 5,000 unit 02/08/18 05:44 02/08/18 15:15 Heparin - IVPUSH 5,000 unit PRN PRN Administration Heparin Vancomycin HCl 1,000 mg in 250 mls @ 166.667 mls/hr 02/07/18 20:00 02/13/18 20:37 Vancomycin (Pre-Docked) IVPB 166.667 mls/hr Q24H CHELLY Administration Protocol Heparin Sodium/Dextrose 25,000 units in 500 mls @ 16 mls/hr 02/08/18 05:45 07:08 Heparin Infusion - IVPB 0 unit/hr TITR CHELLY 0 mls/hr Titration Protocol 800 UNIT/HR Piperacillin Sod/Tazobactam 50 mls @ 100 mls/hr 02/13/18 11:00 02/14/18 09:22 Sod 2.25 gm/ Dextrose IVPB 100 mls/hr Q8H-IV CHELLY Administration Protocol Fentanyl 500 mcg/ Dextrose 100 mls @ 5 mls/hr 02/14/18 11:45 02/14/18 11:59 IVPB 25 mcg/hr TITR CHELLY 5 mls/hr Administration Protocol 25 MCG/HR Metoprolol Tartrate 5 mg 02/14/18 12:00 02/14/18 13:18 Lopressor Injection - IVPUSH 5 mg Q8H CHELLY Administration Pantoprazole Sodium 40 mg 02/14/18 12:00 02/14/18 13:16 Protonix Iv IVPUSH 40 mg DAILY CHELLY Administration Thiamine HCl 100 mg 02/06/18 22:12 02/14/18 09:23 Vitamin B1 - PO 100 mg DAILY CHELLY Administration ASSESSMENT/PLAN: Assessment: Patient was febrile yesterday so we escalated the Abx coverage to Zosyn. CXR showed a small apical pneumothorax - We turned off the PEEP on the vent. The question remains whether his respiratory insufficiency yesterday occurred secondary to an infectious process likely from the lung or whether this is cardio/pulmonary in origin. Patient will continue to receive plasmapharesis and antibiotics. We will do daily sedation vacations to assess his mental status. Will continue to trend pneumothorax with serial Xrays. If Pneumo expands we will place a chest tube. Plan: ID: - Rales/Ronchi/wheezes heard on Lung auscultation - CXR shows pulmonary infiltrate, possible PNA vs empyema vs paramnemonic effusion - Abx coverage to zosyn - ID on board Cardio: - Afib w RVR: Patient is receiving metoprolol 5 mg Q8H - diastolic dysfunction + hypertrophic cardiomyopathy - CAD with multiple stents - Cardio consulted and on board. Pulm: - Intubated - Patient has a small apical pneumothorax. Will Trend w serial Xrays. - +/- chest tube - b/l diffuse wheezes/ronchi - infiltrate on CXR: Will step up Abx to Zosyn - No lasix today Renal: - Acute on Chronic kidney injury - BUN: 58 Cr:2.4. possibly Pre-renal etiology. Unchanged much since yesterday. - Renal consulted and on board. - Patient receiving plasmapharesis now. Neuro: - Patient is not alert or oriented. He responds to painful stimuli. - Head CT showed no acute pathology Heme/Onc: - Patient received plasmapharesis today. Will get again tomorrow. - Patient has hypercalcemia - Paraproteinemia - Possible Multiple Myeloma, SPEP and UPEP suggestive. + M spike. Endo: - Hypercalcemia - Glucose wnl - Parathyroid hormone WNL - parathyroid hormone like protein pending. F/E/N: F: No standing fluids due to fluid overload in lungs E: Mag low. Repleted. N: tube feeds. Code Status: Full Code Dispo: Patient will continue to receive ICU level care Visit type - Emergency Visit Emergency Visit: Yes ED Registration Date: 02/06/18 Care time: The patient presented to the Emergency Department on the above date and was hospitalized for further evaluation of their emergent condition. - New Patient This patient is new to me today: No - Critical Care Critical Care patient: Yes Total Critical Care Time (in minutes): 36 Critical Care Statement: The care of this patient involved high complexity decision making to prevent further life threatening deterioration of the patient 's condition and/or to evaluate & treat vital organ system(s) failure or risk of failure.
[2018-02-14] MEDS ORDERED: MAGNESIUM SULF 50% (8.12 MEQ/2 ML-1 GM VIAL) IVPB ONE (15:30)
[2018-02-14 17:04] LABS: BASO % 0.3 % (0-2.0); EOS % 1.4 % (0-4.5); HEMATOCRIT 28.5 % (35.4-49); HEMOGLOBIN 9.5 GM/dL (11.7-16.9); LYMPH % 20.5 % (8-40); MCH 30.2 pg (25.7-33.7); MCHC 33.5 g/dl (32.0-35.9); MEAN CELL VOLUME 90.2 fl (80-96); MEAN PLT VOLUME 9.2 fl (7.5-11.1); MONO % 3.4 % (3.8-10.2); NEUT % 74.4 % (42.8-82.8); PLATELET COUNT 130 K/MM3 (134-434); RBC 3.16 M/mm3 (4.00-5.60); RDW 15.7 % (11.9-15.9); WHITE BLOOD COUNT 4.5 K/mm3 (4.0-10.0)
[2018-02-14 17:19] LABS: INR 2.07 (0.83-1.09); PROTHROMBIN TIME (PATIENT) 24.6 SEC (9.7-13.0)
[2018-02-14 17:33] LABS: ANISOCYTOSIS 1+; PLATELET ESTIMATE DECREASED
[2018-02-14 17:42] LABS: ACTIVATED PTT 186.4 SECONDS (25.2-36.5)
[2018-02-14 17:48] LABS: CREATININE 2.1 mg/dL (0.55-1.3)
[2018-02-14 17:49] LABS: ALBUMIN 3.6 g/dl (3.4-5.0)
[2018-02-14] MEDS ORDERED: SODIUM CHLORIDE 250 ML IV STA ×2 (17:49→18:03)
--- NOTE | 2018-02-14 18:20 | PN ---
Progress Note, Physician History of Present Illness: Poorly responsive off sedation on vent, undergoing apheresis for possible hyperviscosity syndrome. - Current Medication List Current Medications: Active Medications Acetaminophen (Tylenol Suppository -) 650 mg NV Q6H PRN PRN Reason: FEVER Last Admin: 02/12/18 18:10 Dose: 650 mg Acetaminophen (Ofirmev Injection -) 1,000 mg IVPB Q6H PRN PRN Reason: FEVER Last Admin: 02/14/18 13:41 Dose: 1,000 mg Heparin Sodium (Porcine) (Heparin -) 1,000 unit IVPUSH PRN PRN PRN Reason: Heparin Heparin Sodium (Porcine) (Heparin -) 5,000 unit IVPUSH PRN PRN PRN Reason: Heparin Last Admin: 02/08/18 15:15 Dose: 5,000 unit Heparin Sodium (Porcine) (Hep-Lock -) 5 ml IVPUSH PRN PRN PRN Reason: Heparin Vancomycin HCl (Vancomycin (Pre-Docked)) 1,000 mg in 250 mls @ 166.667 mls/hr IVPB Q24H CHELLY; Protocol Last Admin: 02/13/18 20:37 Dose: 166.667 mls/hr Heparin Sodium/Dextrose (Heparin Infusion -) 25,000 units in 500 mls @ 16 mls/ hr IVPB TITR CHELLY; Protocol Last Titration: 02/14/18 13:00 Dose: 800 unit/hr, 16 mls/hr Piperacillin Sod/Tazobactam (Sod 2.25 gm/ Dextrose) 50 mls @ 100 mls/hr IVPB Q8H-IV CHELLY; Protocol Last Admin: 02/14/18 18:17 Dose: 100 mls/hr Fentanyl 500 mcg/ Dextrose 100 mls @ 5 mls/hr IVPB TITR CHELLY; Protocol Last Admin: 02/14/18 11:59 Dose: 25 mcg/hr, 5 mls/hr Sodium Chloride (Normal Saline -) 250 mls @ 250 mls/hr IV ASDIR STA Stop: 02/14/18 18:48 Last Admin: 02/14/18 18:16 Dose: 250 mls/hr Sodium Chloride (Normal Saline -) 250 mls @ 250 mls/hr IV ASDIR STA Stop: 02/14/18 19:02 Metoprolol Tartrate (Lopressor Injection -) 5 mg IVPUSH Q8H CHELLY Last Admin: 02/14/18 13:18 Dose: 5 mg Pantoprazole Sodium (Protonix Iv) 40 mg IVPUSH DAILY [facility] Last Admin: 02/14/18 13:16 Dose: 40 mg Thiamine HCl (Vitamin B1 -) 100 mg PO DAILY [facility] Last Admin: 02/14/18 09:23 Dose: 100 mg - Objective Vital Signs: Vital Signs Temperature 99.4 F 02/14/18 08:00 Pulse Rate 91 H 02/14/18 14:00 Respiratory Rate 17 02/14/18 15:20 Blood Pressure 92/58 L 02/14/18 14:00 O2 Sat by Pulse Oximetry (%) 100 02/14/18 07:14 Cardiovascular: Yes: Pulse Irregular Respiratory: Yes: Intubated, Mechanically Ventilated, Rhonchi Gastrointestinal: Yes: Soft, Hypoactive Bowel Sounds Edema: No Neurological: Yes: Unresponsive Labs: CBC, BMP 02/14/18 16:20 02/14/18 16:20 INR, PTT INR 2.07 (0.83-1.09) H 02/14/18 16:20 Fibrinogen 134.0 mg/dL (238-498) L D 02/14/18 16:20 Problem List - Problems (1) Atrial fibrillation with RVR Code(s): I48.91 - UNSPECIFIED ATRIAL FIBRILLATION (2) Ijlfz-tp-haotviv kidney injury Code(s): N17.9 - ACUTE KIDNEY FAILURE, UNSPECIFIED; N18.9 - CHRONIC KIDNEY DISEASE, UNSPECIFIED Qualifiers: Acute renal failure type: unspecified Chronic kidney disease stage: unspecified stage Qualified Code(s): N17.9 - Acute kidney failure, unspecified ; N18.9 - Chronic kidney disease, unspecified (3) Demand ischemia Code(s): I24.8 - OTHER FORMS OF ACUTE ISCHEMIC HEART DISEASE (4) Hypercalcemia Code(s): E83.52 - HYPERCALCEMIA (5) Nonadherence to medication Code(s): Z91.14 - PATIENT'S OTHER NONCOMPLIANCE WITH MEDICATION REGIMEN (6) Paraproteinemia Code(s): D89.2 - HYPERGAMMAGLOBULINEMIA, UNSPECIFIED (7) Anticoagulant long-term use Code(s): Z79.01 - SPECTRAL SCIENTIST (CURRENT) USE OF ANTICOAGULANTS (8) Chronic thromboembolic disease Code(s): I74.9 - EMBOLISM AND THROMBOSIS OF UNSPECIFIED ARTERY (9) Coronary artery disease Code(s): I25.10 - ATHSCL HEART DISEASE OF [place] CORONARY ARTERY W/O ANG PCTRS Qualifiers: Coronary Disease-Associated Artery/Lesion type: [place] artery [place] vs. transplanted heart: [place] heart Associated angina: without angina Qualified Code(s): I25.10 - Atherosclerotic heart disease of [place] coronary artery without angina pectoris (10) Diastolic dysfunction without heart failure Code(s): I51.9 - HEART DISEASE, UNSPECIFIED (11) HTN (hypertension) Code(s): I10 - ESSENTIAL (PRIMARY) HYPERTENSION Qualifiers: Hypertension type: essential hypertension Qualified Code(s): I10 - Essential (primary) hypertension (12) Hypertrophic cardiomyopathy Code(s): I42.2 - OTHER HYPERTROPHIC CARDIOMYOPATHY (13) Hyperlipidemia Code(s): E78.5 - HYPERLIPIDEMIA, UNSPECIFIED Qualifiers: Hyperlipidemia type: pure hypercholesterolemia Qualified Code(s): E78.00 - Pure hypercholesterolemia, unspecified; E78.0 - Pure hypercholesterolemia Assessment/Plan R&LHc at [facility] 04/20/2016 showing nonobstructive CAD, severe LV apical hypertrophic cardiomyopathy, mildly elevated right sided pressures, Mynx deployed right [employer] access site. 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 Echocardiogram: 10/18/2017 Mod cLVH, severe PURVI, mod TR RVSP 50-60 mmHg, mod- severe MR Echocardiogram: 01/23/2018 Normal LV size with hyperdynamic LVEF 75%, mild BSH, normal RV size and fxn, severe LAE, mod-severe MR, mod TR 1. Acute hypoxic respiratory failure, possible pneumonia other differential diagnosis includes possible PTE 2. Toxic metabolic encephelopathy, possible hyperviscosity syndrome, sepsis 2. Acute on CKD (pre-renal) 3. Hypercalcemia, paraproteinemia-> possible multiple myeloma 4. History of bilateral SFA occlusion post thrombectomy, referable to embolic disease related to persistent atrial fibrillation with [id number] score of 6, history of poor compliance with anticoagulation and medical F/U 5. Non obstructive CAD on R&LHc coronary angiography with demand ischemia 6. LV diastolic dysfunction related to apical hypertrophic cardiomyopathy, subendocardial ischemia, compensated/euvolemic 7. Persistent atrial fibrillation [id number] score of 6 on Xarelto 20 qd 8. Labile HTN 9. Poor compliance with medical therapy administration and medical F/U 10. Tobacco abuse 11. ETOH dependence PLAN: 1. Heparin gtt for now while off Xarelto 15 qd (renal dosing) 2. IV Lopressor as hemodynamics tolerate 3. Plasmapharesis per hematology input 4. s/p Zometa, monitor calcium level, check PTH, ruled out obstructive uropathy 5. Empiric abx course pending C&S 6. NGT for enteral feeds as prolonged NPO 7. Ventilator management
[2018-02-14 18:47] LABS: ALK PHOS 51 U/L (45-117); ANION GAP 12 MMOL/L (8-16); BILIRUBIN,TOTAL 0.5 mg/dL (0.2-1); BLOOD UREA NITROGEN 55 mg/dL (7-18); CALCIUM 7.7 mg/dL (8.5-10.1); CHLORIDE 114 mmol/L (98-107); CO2 17 mmol/L (21-32); GLUCOSE,RANDOM 87 mg/dL (74-106); MAGNESIUM 1.9 mg/dL (1.8-2.4); PHOSPHOROUS 3.6 mg/dL (2.5-4.9); POTASSIUM 4.2 mmol/L (3.5-5.1); SGOT/AST 53 U/L (15-37); SGPT/ALT 31 U/L (13-61); SODIUM 143 mmol/L (136-145); TOT PROT 7.2 g/dl (6.4-8.2)
[2018-02-14] MEDS: VANCOMYCIN 1 GRAM (PRE-DOCKED) 1,000 MG/250 ML BAG IVPB SCH (21:32)
[2018-02-15 00:11] LABS: FREE KAPPA,SERUM 2808.8 mg/L (3.3-19.4)
[2018-02-15] MEDS: PIPERACILLIN/TAZOB 2.25 GM 2.25 GM in DEXTROSE 5%-WATER - 50 ML IVPB SCH ×3 (01:33→17:01)
[2018-02-15] MEDS: ACETAMINOPHEN 1000 MG/100 ML VIAL (NON FORMULARY) IVPB PRN (01:55)
[2018-02-15] MEDS: METOPROLOL TARTRATE 5 MG/5 ML VIAL IVPUSH SCH ×3 (05:37→21:02)
[2018-02-15 05:55] LABS: BASO % 0.2 % (0-2.0); EOS % 1.7 % (0-4.5); HEMATOCRIT 27.2 % (35.4-49); LYMPH % 20.9 % (8-40); MCH 29.7 pg (25.7-33.7); MCHC 33.1 g/dl (32.0-35.9); MEAN CELL VOLUME 89.9 fl (80-96); MEAN PLT VOLUME 9.1 fl (7.5-11.1); MONO % 3.8 % (3.8-10.2); NEUT % 73.4 % (42.8-82.8); PLATELET COUNT 117 K/MM3 (134-434); RBC 3.03 M/mm3 (4.00-5.60); RDW 16.4 % (11.9-15.9); WHITE BLOOD COUNT 4.8 K/mm3 (4.0-10.0)
[2018-02-15 06:17] LABS: ALBUMIN 2.9 g/dl (3.4-5.0); ALK PHOS 91 U/L (45-117); ANION GAP 7 MMOL/L (8-16); BILIRUBIN,TOTAL 0.4 mg/dL (0.2-1); BLOOD UREA NITROGEN 52 mg/dL (7-18); CALCIUM 7.6 mg/dL (8.5-10.1); CHLORIDE 114 mmol/L (98-107); CO2 19 mmol/L (21-32); CREATININE 2.2 mg/dL (0.55-1.3); GLUCOSE,RANDOM 110 mg/dL (74-106); PHOSPHOROUS 3.1 mg/dL (2.5-4.9); POTASSIUM 4.4 mmol/L (3.5-5.1); SGOT/AST 74 U/L (15-37); SGPT/ALT 41 U/L (13-61); SODIUM 140 mmol/L (136-145); TOT PROT 7.5 g/dl (6.4-8.2)
[2018-02-15] MEDS ORDERED: HEPARIN NA (PORCINE) 5,000 UNITS/ML 1ML VIAL IVPUSH PRN ×2 (06:38)
[2018-02-15 06:52] LABS: ARTERIAL BLD GAS O2 SATURATION 97.9 % (90-98.9); ARTERIAL BLOOD GAS BASE EXCESS -8.7 meq/l (-2-2); ARTERIAL BLOOD GAS PCO2 32.2 mmHg (35-45); ARTERIAL BLOOD GAS pH 7.32 (7.35-7.45)
[2018-02-15 07:24] LABS: ALLENS TEST POSITIVE
[2018-02-15] MEDS ORDERED: PIPERACILLIN/TAZOBACTAM 2.25 GM VIAL IVPB ONE ×3 (07:24→20:59)
[2018-02-15] MEDS ORDERED: DEXTROSE 5%-WATER - 50 ML IVPB ONE ×3 (07:25→20:59)
[2018-02-15] MEDS ORDERED: fentaNYL CITRATE 250 MCG/5 ML VIAL ONE (07:26)
[2018-02-15] MEDS: FENTANYL INJECTION 500 MCG in DEXTROSE 5%-WATER - 90 ML IVPB SCH ×2 (07:58→20:57)
[2018-02-15] MEDS: THIAMINE HCL 100 MG TABLET (FP) PO SCH (09:01)
[2018-02-15] MEDS: PANTOPRAZOLE SODIUM 40 MG VIAL IVPUSH SCH (09:01)
[2018-02-15] MEDS: HEPARIN INFUSION - 25,000 UNITS/500 ML INFUS.BAG IVPB SCH ×2 (09:39→16:35)
[2018-02-15 10:22] LABS: ACANTHOCYTES 0; ANISOCYTOSIS 0; HELMET CELLS 0; HOWELL-JOLLY BODIES 0; MACROCYTOSIS 0; OVALOCYTE 0; PLATELET ESTIMATE DECREASED; ROULEAU 0; SICKELED CELLS 0; TARGET CELLS 0; TEAR DROP CELLS 0; TOXIC GRANULATION 0
--- NOTE | 2018-02-15 10:39 | PN ---
Progress Note (short form) - Note Progress Note: Patient seen and examined at bedside in the ICU Intubated and sedated s/p Right IJ Trialysis catheter for apharesis Tmax 100.5 at 2pm yesterday 100.1 overnight Vital Signs Temp 96.8 F L 02/15/18 10:13 Pulse 90 02/15/18 10:13 Resp 13 02/15/18 10:13 BP 101/64 02/15/18 10:13 Pulse Ox 100 02/15/18 08:59 Intake & Output 02/14/18 02/14/18 02/15/18 11:59 23:59 11:59 Intake Total 496 1591 1061 Output Total 400 1250 850 Balance 96 341 211 Weight 81.391 kg 80.853 kg Intake: IV 216 661 126 HEPARIN INFUSION - 25,000 216 126 91 units In 500 ml @ 800 UNIT/HR 16 mls/hr IVPB TITR CEHLLY Rx#:[id number] Normal Saline - 250 ml @ 250 250 mls/hr IV ASDIR STA Rx#:[id number] Normal Saline - 250 ml @ 250 250 mls/hr IV ASDIR STA Rx#:[id number] Sublimaze Injection - 500 35 35 Mcg In D5w - 90 ml @ 25 MCG/HR 5 mls/hr IVPB TITR CHELLY Rx#:[id number] IVPB 50 450 250 Tube Feeding 150 360 315 Tube Irrigant 80 120 370 Output: Urine 400 1250 850 Brenner 400 1250 850 Other: Voiding Method Indwelling Catheter Indwelling Catheter Indwelling Catheter Bowel Movement Yes No # Bowel Movements 1 Weight Measurement Method [facility] PE: Lying in bed intubated opens eyes to name. Able to turn head to the direction that his name is being called. Spontaneously moving his arms Dry mucous membranes. Poor dentition PERRL senile arcus bilaterally Irregular No murmur soft non tender non distended no lower extremity edema 02/14/18 02/14/18 02/14/18 16:20 16:20 16:20 WBC 4.5 RBC 3.16 L Hgb 9.5 L Hct 28.5 L MCV 90.2 MCHC 33.5 RDW 15.7 Plt Count 130 L Neutrophils % 74.4 Lymphocytes % 20.5 D Monocytes % 3.4 L Eosinophils % 1.4 Basophils % 0.3 INR 2.07 H Sodium 143 Potassium 4.2 Chloride 114 H Carbon Dioxide 17 L Anion Gap 12 BUN 55 H Creatinine 2.1 H 02/15/18 02/15/18 05:30 05:30 WBC 4.8 RBC 3.03 L Hgb 9.0 L Hct 27.2 L MCV 89.9 MCHC 33.1 RDW 16.4 H Plt Count 117 L Neutrophils % 73.4 Lymphocytes % 20.9 Monocytes % 3.8 Eosinophils % 1.7 Basophils % 0.2 INR Sodium 140 Potassium 4.4 Chloride 114 H Carbon Dioxide 19 L Anion Gap 7 L BUN 52 H Creatinine 2.2 H 02/12/18 19:45 Blood Culture - Preliminary Blood - Peripheral Venous NO GROWTH OBTAINED AFTER 48 HOURS, INCUBATION TO CONTINUE FOR 3 DAYS. 02/12/18 19:20 Blood Culture - Preliminary Blood - Peripheral Venous NO GROWTH OBTAINED AFTER 48 HOURS, INCUBATION TO CONTINUE FOR 3 DAYS. 02/13/18 14:30 Gram Stain - Final Sputum - Endotrachea Suction/Ventilator Sputum Culture - Pending 02/13/18 14:30 Legionella Antigen - Final Urine - Urine Brenner Streptococcus pneumoniae Antigen (M - Final 02/06/18 17:02 Blood Culture - Final Blood - Peripheral Venous NO GROWTH AFTER 5 DAYS INCUBATION 02/06/18 17:02 Blood Culture - Final Blood - Peripheral Venous NO GROWTH AFTER 5 DAYS INCUBATION 02/06/18 17:02 Urine Culture - Final Urine - Urine - Catheterized NO GROWTH OBTAINED 02/07/18 19:15 Influenza Types A,B Antigen - Final Nasopharyngeal Swab - Final 77M with multiple medical problems presents to the hospital after being found down by neighbors found to have MELITA and hypercalcemia with altered mental status. Problem List: Altered mental status toxic metabolic encephalopathy Hypercalcemia likely from malignancy MELITA on CKD History of alcohol abuse HTN HLD CAD Afib diastolic dysfunction troponinemia Hypertrophic cardiomypoathy (apical) sepsis secondary to RLL pneumonia acute hypoxemic respiratory failure Vitamin D deficiency Plan: concern for multiple myeloma given hypercalcemia worsening renal failure and hyperproteinemia on last SPEP Calcium WNL today Patient has apharesis done yesterday for a total of 2 pharesis SPEP noted total protein and globulins elevated [place]/lambda light chains-noted [place]/Lambda ratio > 100 consistent with Multiple myeloma M spike elevated elevated at 6.8 previously 4.7 Will send immunoglobulins IgG IgA IgM-IgG again today. Baseline Immunoglobulins done at time of rapid repsonse second set shows decreased of IgG from abou7 grams to about 3 grams after first pharesis. will send third set now to see trend. Will send ammonia level to r/o another cause of altered mental status bone (metastatic) survey and if negative will get Bone scan.- when acute issues resolved Of note Bone scan may not show any lesions if it is from multiple myeloma but will sold solid tumors Can consider MRI of C/T/L spine if patient stops moving lower extremities or concern for lytic lesions of the spine. At this time the patient is moving his lower extremities so will hold off for now. PTH-borderline low appropriate given hypercalcemia, PTHrP low Vit D low ABx per ID Thank you for this consult
--- NOTE | 2018-02-15 11:33 | PN ---
Progress Note (short form) - Note Progress Note: Renal follow up for Hypercalcemia/MELITA Pt seen and examined in the ICU on vent off sedation reponds to physical stimuli no overnight events last plasmaphareiss was yesterday Vital Signs Temperature 96.8 F L 02/15/18 10:13 Pulse Rate 90 02/15/18 10:13 Respiratory Rate 13 02/15/18 10:13 Blood Pressure 101/64 02/15/18 10:13 O2 Sat by Pulse Oximetry (%) 100 02/15/18 08:59 Intake & Output 02/12/18 02/13/18 02/14/18 02/15/18 23:59 23:59 23:59 23:59 Intake Total 1744 1089 2087 1061 Output Total 3100 2400 1650 850 Balance -1356 -1311 437 211 Weight 81.102 kg 81.391 kg 80.853 kg NAD on vent via ET Tube RRR Dec BS, Course BS No Le edema CBC, BMP 02/15/18 05:30 02/15/18 05:30 Laboratory Tests 02/15/18 05:30 Calcium 7.6 L Albumin 2.9 L Current Medications Acetaminophen (Tylenol Suppository -) 650 mg MS Q6H PRN PRN Reason: FEVER Last Admin: 02/12/18 18:10 Dose: 650 mg Heparin Sodium (Porcine) (Hep-Lock -) 5 ml IVPUSH PRN PRN PRN Reason: Heparin Heparin Sodium (Porcine) (Heparin -) 1,000 unit IVPUSH PRN PRN PRN Reason: Heparin Heparin Sodium (Porcine) (Heparin -) 5,000 unit IVPUSH PRN PRN PRN Reason: Heparin Vancomycin HCl (Vancomycin (Pre-Docked)) 1,000 mg in 250 mls @ 166.667 mls/hr IVPB Q24H [facility]; Protocol Last Admin: 02/14/18 21:32 Dose: 166.667 mls/hr Piperacillin Sod/Tazobactam (Sod 2.25 gm/ Dextrose) 50 mls @ 100 mls/hr IVPB Q8H-IV [facility]; Protocol Last Admin: 02/15/18 09:01 Dose: 100 mls/hr Fentanyl 500 mcg/ Dextrose 100 mls @ 5 mls/hr IVPB TITR [facility]; Protocol Last Admin: 02/15/18 07:58 Dose: 25 mcg/hr, 5 mls/hr Heparin Sodium/Dextrose (Heparin Infusion -) 25,000 units in 500 mls @ 20 mls/ hr IVPB TITR [facility]; Protocol Last Admin: 02/15/18 09:39 Dose: Not Given Metoprolol Tartrate (Lopressor Injection -) 5 mg IVPUSH Q8H [facility] Last Admin: 02/15/18 05:37 Dose: Not Given Pantoprazole Sodium (Protonix Iv) 40 mg IVPUSH DAILY [facility] Last Admin: 02/15/18 09:01 Dose: 40 mg Thiamine HCl (Vitamin B1 -) 100 mg PO DAILY [facility] Last Admin: 02/15/18 09:01 Dose: 100 mg 77 year old gentleman with hx of CKD, Afib on A/C, CAD, CKD, Hypertension, Hyperlipidemia, PVD who presented with AMS/Confusion and found to have MELITA. #MELITA ATN vs. 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 tubular injury, US showed no stones or obstruction, UA w/o protein but UPCR ~0.5 indicating non- albumin proteinuria) #AMS of unclear etiology (metabolic encephalopathy) #Anemia #Hypercalcemia of Malignancy (PTH is low) #Hyperdense lesion on US of the kidney #Normal anion gap metabolic acidosis Renal function stable at pt is non-oliguric no overt acidosis, hyperkalemia or fluid overload continue plasmapharesis as per Heme serum Ca is now improved supportive care Mack Miller DO
--- NOTE | 2018-02-15 12:51 | PN ---
Teaching Attending Note Name of Resident: Sebastián Oneil ATTENDING PHYSICIAN STATEMENT I saw and evaluated the patient. I reviewed the resident's note and discussed the case with the resident. I agree with the resident's findings and plan as documented. SUBJECTIVE: Patient seen and examined in the ICU. Remains intubated and sedated. Tolerating Plasmapheresis (last was yesterday). Appears to be grimacing to pain. Intake & Output 02/12/18 02/13/18 02/14/18 02/15/18 23:59 23:59 23:59 23:59 Intake Total 1744 1089 2087 1061 Output Total 3100 2400 1650 850 Balance -1356 -1311 437 211 Weight 178 lb 12.8 oz 179 lb 7 oz 178 lb 4 oz Last Vital Signs Temp Pulse Resp BP Pulse Ox 96.8 F L 90 13 101/64 100 02/15/18 10:13 02/15/18 10:13 02/15/18 10:13 02/15/18 10:13 02/15/18 08:59 Active Medications Acetaminophen (Tylenol Suppository -) 650 mg MS Q6H PRN PRN Reason: FEVER Last Admin: 02/12/18 18:10 Dose: 650 mg Heparin Sodium (Porcine) (Hep-Lock -) 5 ml IVPUSH PRN PRN PRN Reason: Heparin Heparin Sodium (Porcine) (Heparin -) 1,000 unit IVPUSH PRN PRN PRN Reason: Heparin Heparin Sodium (Porcine) (Heparin -) 5,000 unit IVPUSH PRN PRN PRN Reason: Heparin Vancomycin HCl (Vancomycin (Pre-Docked)) 1,000 mg in 250 mls @ 166.667 mls/hr IVPB Q24H [facility]; Protocol Last Admin: 02/14/18 21:32 Dose: 166.667 mls/hr Piperacillin Sod/Tazobactam (Sod 2.25 gm/ Dextrose) 50 mls @ 100 mls/hr IVPB Q8H-IV [facility]; Protocol Last Admin: 02/15/18 09:01 Dose: 100 mls/hr Fentanyl 500 mcg/ Dextrose 100 mls @ 5 mls/hr IVPB TITR [facility]; Protocol Last Admin: 02/15/18 07:58 Dose: 25 mcg/hr, 5 mls/hr Heparin Sodium/Dextrose (Heparin Infusion -) 25,000 units in 500 mls @ 20 mls/ hr IVPB TITR [facility]; Protocol Last Admin: 02/15/18 09:39 Dose: Not Given Metoprolol Tartrate (Lopressor Injection -) 5 mg IVPUSH Q8H [facility] Last Admin: 02/15/18 05:37 Dose: Not Given Pantoprazole Sodium (Protonix Iv) 40 mg IVPUSH DAILY [facility] Last Admin: 02/15/18 09:01 Dose: 40 mg Thiamine HCl (Vitamin B1 -) 100 mg PO DAILY [facility] Last Admin: 02/15/18 09:01 Dose: 100 mg Constitutional: Yes: Intubated and sedated Cardiovascular: Yes: Pulse Irregular, AFib Respiratory: Yes: Intubated and sedated Gastrointestinal: Yes: Normal Bowel Sounds, Soft Musculoskeletal: Yes: WNL Extremities: Yes: WNL Edema: No Peripheral Pulses WNL: Yes Neurological: Yes: Sedated Labs: Laboratory Results - last 24 hr 02/10/18 02/12/18 02/13/18 06:10 16:25 05:30 WBC RBC Hgb Hct MCV MCH MCHC RDW Plt Count MPV Absolute Neuts (auto) Total Counted Neutrophils % Neutrophils % (Manual) Band Neutrophils % Lymphocytes % Lymphocytes % (Manual) Monocytes % Monocytes % (Manual) Eosinophils % Eosinophils % (Manual) Basophils % Basophils % (Manual) Myelocytes % (Man) Promyelocytes % (Man) Blast Cells % (Manual) Nucleated RBC % Metamyelocytes Hypochromia Toxic Granulation Dohle Bodies Platelet Estimate Platelet Comment Polychromasia Poikilocytosis Basophilic Stippling Anisocytosis Microcytosis Macrocytosis Spherocytes Sickle Cells Target Cells Tear Drop Cells Ovalocytes Stomatocytes Helmet Cells [place] Bodies Commodore Rings Rose Marie Cells Acanthocytes (Spur) Rouleaux Fragmented RBCs Schistocytes PT with INR INR PTT (Actin FS) Fibrinogen Anticoagulation Therapy Puncture Site ABG pH ABG pCO2 at Pt Temp ABG pO2 at Pt Temp ABG HCO3 ABG O2 Sat (Measured) ABG O2 Content ABG Base Excess Vinny Test O2 Delivery Device Oxygen Flow Rate Vent Mode Vent Rate Mechanical Rate PEEP Pressure Support Vent Sodium Potassium Chloride Carbon Dioxide Anion Gap BUN Creatinine Creat Clearance w eGFR Random Glucose Calcium Phosphorus Magnesium Total Bilirubin AST ALT Alkaline Phosphatase Ammonia Troponin I Total Protein Albumin PTH Related Protein < 2.0 IgG Cancelled IgA IgM Free [place] LC, Quant 2808.8 H Free Lambda LC, Quant 6.4 Free [place]/Lambda Ratio 438.88 H 02/14/18 02/14/18 02/14/18 16:20 16:20 16:20 WBC 4.5 RBC 3.16 L Hgb 9.5 L Hct 28.5 L MCV 90.2 MCH 30.2 MCHC 33.5 RDW 15.7 Plt Count 130 L MPV 9.2 Absolute Neuts (auto) 3.3 Total Counted 100 Neutrophils % 74.4 Neutrophils % (Manual) 73.0 Band Neutrophils % 9.0 Lymphocytes % 20.5 D Lymphocytes % (Manual) 22.0 D Monocytes % 3.4 L Monocytes % (Manual) 7 Eosinophils % 1.4 Eosinophils % (Manual) Basophils % 0.3 Basophils % (Manual) Myelocytes % (Man) Promyelocytes % (Man) Blast Cells % (Manual) Nucleated RBC % 4 H Metamyelocytes 2 Hypochromia 1+ Toxic Granulation Dohle Bodies Platelet Estimate Decreased Platelet Comment No clumping noted Polychromasia 1+ Poikilocytosis Basophilic Stippling Anisocytosis 1+ Microcytosis Macrocytosis Spherocytes Sickle Cells Target Cells Tear Drop Cells Ovalocytes Stomatocytes Helmet Cells [place] Bodies Commodore Rings Gabbs Cells Acanthocytes (Spur) Rouleaux Fragmented RBCs Schistocytes PT with INR 24.60 H INR 2.07 H PTT (Actin FS) 186.4 H Fibrinogen 134.0 L D Anticoagulation Therapy Puncture Site ABG pH ABG pCO2 at Pt Temp ABG pO2 at Pt Temp ABG HCO3 ABG O2 Sat (Measured) ABG O2 Content ABG Base Excess Vinny Test O2 Delivery Device Oxygen Flow Rate Vent Mode Vent Rate Mechanical Rate PEEP Pressure Support Vent Sodium Potassium Chloride Carbon Dioxide Anion Gap BUN Creatinine Creat Clearance w eGFR Random Glucose Calcium Phosphorus Magnesium Total Bilirubin AST ALT Alkaline Phosphatase Ammonia Troponin I Total Protein Albumin PTH Related Protein IgG IgA IgM Free [place] LC, Quant Free Lambda LC, Quant Free [place]/Lambda Ratio 02/14/18 02/14/18 02/15/18 16:20 18:45 02:40 WBC RBC Hgb Hct MCV MCH MCHC RDW Plt Count MPV Absolute Neuts (auto) Total Counted Neutrophils % Neutrophils % (Manual) Band Neutrophils % Lymphocytes % Lymphocytes % (Manual) Monocytes % Monocytes % (Manual) Eosinophils % Eosinophils % (Manual) Basophils % Basophils % (Manual) Myelocytes % (Man) Promyelocytes % (Man) Blast Cells % (Manual) Nucleated RBC % Metamyelocytes Hypochromia Toxic Granulation Dohle Bodies Platelet Estimate Platelet Comment Polychromasia Poikilocytosis Basophilic Stippling Anisocytosis Microcytosis Macrocytosis Spherocytes Sickle Cells Target Cells Tear Drop Cells Ovalocytes Stomatocytes Helmet Cells [place] Bodies Commodore Rings Gabbs Cells Acanthocytes (Spur) Rouleaux Fragmented RBCs Schistocytes PT with INR INR PTT (Actin FS) 103.0 H 73.9 H Fibrinogen Anticoagulation Therapy Puncture Site ABG pH ABG pCO2 at Pt Temp ABG pO2 at Pt Temp ABG HCO3 ABG O2 Sat (Measured) ABG O2 Content ABG Base Excess Vinny Test O2 Delivery Device Oxygen Flow Rate Vent Mode Vent Rate Mechanical Rate PEEP Pressure Support Vent Sodium 143 Potassium 4.2 Chloride 114 H Carbon Dioxide 17 L Anion Gap 12 BUN 55 H Creatinine 2.1 H Creat Clearance w eGFR 30.62 Random Glucose 87 Calcium 7.7 L Phosphorus 3.6 Magnesium 1.9 Total Bilirubin 0.5 AST 53 H ALT 31 Alkaline Phosphatase 51 Ammonia Troponin I Total Protein 7.2 Albumin 3.6 PTH Related Protein IgG IgA IgM Free [place] LC, Quant Free Lambda LC, Quant Free [place]/Lambda Ratio 02/15/18 02/15/18 02/15/18 05:30 05:30 05:30 WBC 4.8 RBC 3.03 L Hgb 9.0 L Hct 27.2 L MCV 89.9 MCH 29.7 MCHC 33.1 RDW 16.4 H Plt Count 117 L MPV 9.1 Absolute Neuts (auto) 3.5 Total Counted Neutrophils % 73.4 Neutrophils % (Manual) 72.6 Band Neutrophils % 3.2 Lymphocytes % 20.9 Lymphocytes % (Manual) 11.6 D Monocytes % 3.8 Monocytes % (Manual) 3 L Eosinophils % 1.7 Eosinophils % (Manual) 4.2 D Basophils % 0.2 Basophils % (Manual) 1.0 D Myelocytes % (Man) 0 D Promyelocytes % (Man) 0 Blast Cells % (Manual) 0 Nucleated RBC % 5 H Metamyelocytes 1 D Hypochromia 0 Toxic Granulation 0 Dohle Bodies 0 Platelet Estimate Decreased Platelet Comment Polychromasia 0 Poikilocytosis 0 Basophilic Stippling 0 Anisocytosis 0 Microcytosis 0 Macrocytosis 0 Spherocytes 0 Sickle Cells 0 Target Cells 0 Tear Drop Cells 0 Ovalocytes 0 Stomatocytes 0 Helmet Cells 0 [place] Bodies 0 Commodore Rings 0 Gabbs Cells 0 Acanthocytes (Spur) 0 Rouleaux 0 Fragmented RBCs 0 Schistocytes 0 PT with INR INR PTT (Actin FS) Fibrinogen Anticoagulation Therapy Puncture Site ABG pH ABG pCO2 at Pt Temp ABG pO2 at Pt Temp ABG HCO3 ABG O2 Sat (Measured) ABG O2 Content ABG Base Excess Vinny Test O2 Delivery Device Oxygen Flow Rate Vent Mode Vent Rate Mechanical Rate PEEP Pressure Support Vent Sodium 140 Potassium 4.4 Chloride 114 H Carbon Dioxide 19 L Anion Gap 7 L BUN 52 H Creatinine 2.2 H Creat Clearance w eGFR 29.02 Random Glucose 110 H Calcium 7.6 L Phosphorus 3.1 Magnesium 2.0 Total Bilirubin 0.4 AST 74 H ALT 41 Alkaline Phosphatase 91 Ammonia Troponin I 0.28 H Total Protein 7.5 Albumin 2.9 L PTH Related Protein IgG IgA IgM Free [place] LC, Quant Free Lambda LC, Quant Free [place]/Lambda Ratio 02/15/18 02/15/18 02/15/18 05:30 06:00 10:51 WBC RBC Hgb Hct MCV MCH MCHC RDW Plt Count MPV Absolute Neuts (auto) Total Counted Neutrophils % Neutrophils % (Manual) Band Neutrophils % Lymphocytes % Lymphocytes % (Manual) Monocytes % Monocytes % (Manual) Eosinophils % Eosinophils % (Manual) Basophils % Basophils % (Manual) Myelocytes % (Man) Promyelocytes % (Man) Blast Cells % (Manual) Nucleated RBC % Metamyelocytes Hypochromia Toxic Granulation Dohle Bodies Platelet Estimate Platelet Comment Polychromasia Poikilocytosis Basophilic Stippling Anisocytosis Microcytosis Macrocytosis Spherocytes Sickle Cells Target Cells Tear Drop Cells Ovalocytes Stomatocytes Helmet Cells [place] Bodies Commodore Rings Rose Marie Cells Acanthocytes (Spur) Rouleaux Fragmented RBCs Schistocytes PT with INR INR PTT (Actin FS) 70.3 H Fibrinogen Anticoagulation Therapy No Result Required. Puncture Site Right radial ABG pH 7.32 L ABG pCO2 at Pt Temp 32.2 L ABG pO2 at Pt Temp 110.0 H ABG HCO3 16.2 L ABG O2 Sat (Measured) 97.9 ABG O2 Content 7.6 L* ABG Base Excess -8.7 L Vinny Test Positive O2 Delivery Device No Result Required. Oxygen Flow Rate Yes Vent Mode No Result Required. Vent Rate No Result Required. Mechanical Rate No Result Required. PEEP 0.0 Pressure Support Vent No Result Required. Sodium Potassium Chloride Carbon Dioxide Anion Gap BUN Creatinine Creat Clearance w eGFR Random Glucose Calcium Phosphorus Magnesium Total Bilirubin AST ALT Alkaline Phosphatase Ammonia 91.13 H Troponin I Total Protein Albumin PTH Related Protein IgG IgA IgM Free [place] LC, Quant Free Lambda LC, Quant Free [place]/Lambda Ratio 02/15/18 02/15/18 10:51 10:51 WBC RBC Hgb Hct MCV MCH MCHC RDW Plt Count MPV Absolute Neuts (auto) Total Counted Neutrophils % Neutrophils % (Manual) Band Neutrophils % Lymphocytes % Lymphocytes % (Manual) Monocytes % Monocytes % (Manual) Eosinophils % Eosinophils % (Manual) Basophils % Basophils % (Manual) Myelocytes % (Man) Promyelocytes % (Man) Blast Cells % (Manual) Nucleated RBC % Metamyelocytes Hypochromia Toxic Granulation Dohle Bodies Platelet Estimate Platelet Comment Polychromasia Poikilocytosis Basophilic Stippling Anisocytosis Microcytosis Macrocytosis Spherocytes Sickle Cells Target Cells Tear Drop Cells Ovalocytes Stomatocytes Helmet Cells [place] Bodies Commodore Rings Rose Marie Cells Acanthocytes (Spur) Rouleaux Fragmented RBCs Schistocytes PT with INR INR PTT (Actin FS) Fibrinogen Anticoagulation Therapy Puncture Site ABG pH ABG pCO2 at Pt Temp ABG pO2 at Pt Temp ABG HCO3 ABG O2 Sat (Measured) ABG O2 Content ABG Base Excess Vinny Test O2 Delivery Device Oxygen Flow Rate Vent Mode Vent Rate Mechanical Rate PEEP Pressure Support Vent Sodium Potassium Chloride Carbon Dioxide Anion Gap BUN Creatinine Creat Clearance w eGFR Random Glucose Calcium Phosphorus Magnesium Total Bilirubin AST ALT Alkaline Phosphatase Ammonia Troponin I Total Protein Albumin PTH Related Protein IgG Cancelled Cancelled IgA Cancelled IgM Cancelled Free [place] LC, Quant Free Lambda LC, Quant Free [place]/Lambda Ratio Problem List Acute Respiratory Failure R/O Aspiration MELITA (acute kidney injury) R/O Hyperviscosity Atrial Fibrillation with RVR R/O Sepsis AMS Anemia (?) Apical PTX: does not appear to have a PTX on CXR today PLAN: AC Mode of vent Would add PEEP 5 cm H2O AC Strict I & O Monitor CXR Daily sedation vacation ABX coverage Rate control Plasmapheresis per Heme Start enteral feeds Dr Walker Critical care time spent in reviewing chart, evaluating patient and formulating plan - 36 minutes.
[2018-02-15] MEDS ORDERED: BENZOIN/ALOE VERA/STORAX/TOLU 58 ML BOTTLE ONE (14:44)
--- NOTE | 2018-02-15 17:29 | PN ---
Physical Exam: SUBJECTIVE: Patient seen and examined at bedside. He had a few runs of V-Tach overnight but reverts to irregular sinus. There was no pneumothorax seen on CXR today. We took the patient off sedation today to assess his mental status. He opens his eyes, and turns towards people entering the room. No fevers overnight. OBJECTIVE: Vital Signs Period Temp Pulse Resp BP Sys/Ariza Pulse Ox Last 24 Hr 96.8 F-100.1 F 80-120 12-26 80-116/49-80 100-100 GENERAL: Intubated and not sedated. patient is awake but not alert. HEAD: Normal with no signs of trauma. EYES: Pupils equal, round and reactive to light, sclera anicteric, conjunctiva clear. EARS, NOSE, THROAT: Ears normal, nares patent, oropharynx clear without exudates. Moist mucous membranes. NECK: Supple without lymphadenopathy, no JVD, or masses. LUNGS: Diffuse wheezes bilaterally in both lung rodriguez. No accessory muscle use. HEART: regular rate and irregular rhythm. ABDOMEN: Soft, normoactive bowel sounds, no guarding, no rebound, no masses. No hepatomegaly or splenomegaly. MUSCULOSKELETAL: No bony deformities. UPPER EXTREMITIES: 2+ pulses, warm, well-perfused. No cyanosis. No clubbing. Cap refill <2 seconds. No peripheral edema. LOWER EXTREMITIES: 2+ pulses, warm, well-perfused. No peripheral edema. NEUROLOGICAL: Normoreflexic. ESTEPHANIE. SKIN: Warm, diaphoretic, normal turgor, no rashes or lesions noted. Laboratory Results - last 24 hr 02/10/18 02/12/18 02/13/18 06:10 16:25 05:30 WBC RBC Hgb Hct MCV MCH MCHC RDW Plt Count MPV Absolute Neuts (auto) Total Counted Neutrophils % Neutrophils % (Manual) Band Neutrophils % Lymphocytes % Lymphocytes % (Manual) Monocytes % Monocytes % (Manual) Eosinophils % Eosinophils % (Manual) Basophils % Basophils % (Manual) Myelocytes % (Man) Promyelocytes % (Man) Blast Cells % (Manual) Nucleated RBC % Metamyelocytes Hypochromia Toxic Granulation Dohle Bodies Platelet Estimate Platelet Comment Polychromasia Poikilocytosis Basophilic Stippling Anisocytosis Microcytosis Macrocytosis Spherocytes Sickle Cells Target Cells Tear Drop Cells Ovalocytes Stomatocytes Helmet Cells Foote-Lemitar Bodies Drybranch Rings Linch Cells Acanthocytes (Spur) Rouleaux Fragmented RBCs Schistocytes PT with INR INR PTT (Actin FS) Fibrinogen Anticoagulation Therapy Puncture Site ABG pH ABG pCO2 at Pt Temp ABG pO2 at Pt Temp ABG HCO3 ABG O2 Sat (Measured) ABG O2 Content ABG Base Excess Vinny Test O2 Delivery Device Oxygen Flow Rate Vent Mode Vent Rate Mechanical Rate PEEP Pressure Support Vent Sodium Potassium Chloride Carbon Dioxide Anion Gap BUN Creatinine Creat Clearance w eGFR Random Glucose Calcium Phosphorus Magnesium Total Bilirubin AST ALT Alkaline Phosphatase Ammonia Troponin I Total Protein Albumin PTH Related Protein < 2.0 IgG Cancelled IgA IgM Free [place] LC, Quant 2808.8 H Free Lambda LC, Quant 6.4 Free [place]/Lambda Ratio 438.88 H 02/14/18 02/14/18 02/14/18 16:20 16:20 16:20 WBC RBC Hgb Hct MCV MCH MCHC RDW Plt Count MPV Absolute Neuts (auto) Total Counted 100 Neutrophils % Neutrophils % (Manual) 73.0 Band Neutrophils % 9.0 Lymphocytes % Lymphocytes % (Manual) 22.0 D Monocytes % Monocytes % (Manual) 7 Eosinophils % Eosinophils % (Manual) Basophils % Basophils % (Manual) Myelocytes % (Man) Promyelocytes % (Man) Blast Cells % (Manual) Nucleated RBC % Metamyelocytes 2 Hypochromia 1+ Toxic Granulation Dohle Bodies Platelet Estimate Decreased Platelet Comment No clumping noted Polychromasia 1+ Poikilocytosis Basophilic Stippling Anisocytosis 1+ Microcytosis Macrocytosis Spherocytes Sickle Cells Target Cells Tear Drop Cells Ovalocytes Stomatocytes Helmet Cells Foote-Lemitar Bodies Drybranch Rings Rose Marie Cells Acanthocytes (Spur) Rouleaux Fragmented RBCs Schistocytes PT with INR 24.60 H INR 2.07 H PTT (Actin FS) 186.4 H Fibrinogen 134.0 L D Anticoagulation Therapy Puncture Site ABG pH ABG pCO2 at Pt Temp ABG pO2 at Pt Temp ABG HCO3 ABG O2 Sat (Measured) ABG O2 Content ABG Base Excess Vinny Test O2 Delivery Device Oxygen Flow Rate Vent Mode Vent Rate Mechanical Rate PEEP Pressure Support Vent Sodium Potassium Chloride Carbon Dioxide Anion Gap BUN Creatinine Creat Clearance w eGFR Random Glucose Calcium Phosphorus Magnesium Total Bilirubin AST ALT Alkaline Phosphatase Ammonia Troponin I Total Protein Albumin PTH Related Protein IgG IgA IgM Free [place] LC, Quant Free Lambda LC, Quant Free [place]/Lambda Ratio 02/14/18 02/14/18 02/15/18 16:20 18:45 02:40 WBC RBC Hgb Hct MCV MCH MCHC RDW Plt Count MPV Absolute Neuts (auto) Total Counted Neutrophils % Neutrophils % (Manual) Band Neutrophils % Lymphocytes % Lymphocytes % (Manual) Monocytes % Monocytes % (Manual) Eosinophils % Eosinophils % (Manual) Basophils % Basophils % (Manual) Myelocytes % (Man) Promyelocytes % (Man) Blast Cells % (Manual) Nucleated RBC % Metamyelocytes Hypochromia Toxic Granulation Dohle Bodies Platelet Estimate Platelet Comment Polychromasia Poikilocytosis Basophilic Stippling Anisocytosis Microcytosis Macrocytosis Spherocytes Sickle Cells Target Cells Tear Drop Cells Ovalocytes Stomatocytes Helmet Cells Foote-Lemitar Bodies Drybranch Rings Rose Marie Cells Acanthocytes (Spur) Rouleaux Fragmented RBCs Schistocytes PT with INR INR PTT (Actin FS) 103.0 H 73.9 H Fibrinogen Anticoagulation Therapy Puncture Site ABG pH ABG pCO2 at Pt Temp ABG pO2 at Pt Temp ABG HCO3 ABG O2 Sat (Measured) ABG O2 Content ABG Base Excess Vinny Test O2 Delivery Device Oxygen Flow Rate Vent Mode Vent Rate Mechanical Rate PEEP Pressure Support Vent Sodium 143 Potassium 4.2 Chloride 114 H Carbon Dioxide 17 L Anion Gap 12 BUN 55 H Creatinine 2.1 H Creat Clearance w eGFR 30.62 Random Glucose 87 Calcium 7.7 L Phosphorus 3.6 Magnesium 1.9 Total Bilirubin 0.5 AST 53 H ALT 31 Alkaline Phosphatase 51 Ammonia Troponin I Total Protein 7.2 Albumin 3.6 PTH Related Protein IgG IgA IgM Free [place] LC, Quant Free Lambda LC, Quant Free [place]/Lambda Ratio 02/15/18 02/15/18 02/15/18 05:30 05:30 05:30 WBC 4.8 RBC 3.03 L Hgb 9.0 L Hct 27.2 L MCV 89.9 MCH 29.7 MCHC 33.1 RDW 16.4 H Plt Count 117 L MPV 9.1 Absolute Neuts (auto) 3.5 Total Counted Neutrophils % 73.4 Neutrophils % (Manual) 72.6 Band Neutrophils % 3.2 Lymphocytes % 20.9 Lymphocytes % (Manual) 11.6 D Monocytes % 3.8 Monocytes % (Manual) 3 L Eosinophils % 1.7 Eosinophils % (Manual) 4.2 D Basophils % 0.2 Basophils % (Manual) 1.0 D Myelocytes % (Man) 0 D Promyelocytes % (Man) 0 Blast Cells % (Manual) 0 Nucleated RBC % 5 H Metamyelocytes 1 D Hypochromia 0 Toxic Granulation 0 Dohle Bodies 0 Platelet Estimate Decreased Platelet Comment Polychromasia 0 Poikilocytosis 0 Basophilic Stippling 0 Anisocytosis 0 Microcytosis 0 Macrocytosis 0 Spherocytes 0 Sickle Cells 0 Target Cells 0 Tear Drop Cells 0 Ovalocytes 0 Stomatocytes 0 Helmet Cells 0 Foote-Lemitar Bodies 0 Drybranch Rings 0 Linch Cells 0 Acanthocytes (Spur) 0 Rouleaux 0 Fragmented RBCs 0 Schistocytes 0 PT with INR INR PTT (Actin FS) Fibrinogen Anticoagulation Therapy Puncture Site ABG pH ABG pCO2 at Pt Temp ABG pO2 at Pt Temp ABG HCO3 ABG O2 Sat (Measured) ABG O2 Content ABG Base Excess Vinny Test O2 Delivery Device Oxygen Flow Rate Vent Mode Vent Rate Mechanical Rate PEEP Pressure Support Vent Sodium 140 Potassium 4.4 Chloride 114 H Carbon Dioxide 19 L Anion Gap 7 L BUN 52 H Creatinine 2.2 H Creat Clearance w eGFR 29.02 Random Glucose 110 H Calcium 7.6 L Phosphorus 3.1 Magnesium 2.0 Total Bilirubin 0.4 AST 74 H ALT 41 Alkaline Phosphatase 91 Ammonia Troponin I 0.28 H Total Protein 7.5 Albumin 2.9 L PTH Related Protein IgG IgA IgM Free [place] LC, Quant Free Lambda LC, Quant Free [place]/Lambda Ratio 02/15/18 02/15/18 02/15/18 05:30 06:00 10:51 WBC RBC Hgb Hct MCV MCH MCHC RDW Plt Count MPV Absolute Neuts (auto) Total Counted Neutrophils % Neutrophils % (Manual) Band Neutrophils % Lymphocytes % Lymphocytes % (Manual) Monocytes % Monocytes % (Manual) Eosinophils % Eosinophils % (Manual) Basophils % Basophils % (Manual) Myelocytes % (Man) Promyelocytes % (Man) Blast Cells % (Manual) Nucleated RBC % Metamyelocytes Hypochromia Toxic Granulation Dohle Bodies Platelet Estimate Platelet Comment Polychromasia Poikilocytosis Basophilic Stippling Anisocytosis Microcytosis Macrocytosis Spherocytes Sickle Cells Target Cells Tear Drop Cells Ovalocytes Stomatocytes Helmet Cells Foote-Lemitar Bodies Drybranch Rings Rose Marie Cells Acanthocytes (Spur) Rouleaux Fragmented RBCs Schistocytes PT with INR INR PTT (Actin FS) 70.3 H Fibrinogen Anticoagulation Therapy No Result Required. Puncture Site Right radial ABG pH 7.32 L ABG pCO2 at Pt Temp 32.2 L ABG pO2 at Pt Temp 110.0 H ABG HCO3 16.2 L ABG O2 Sat (Measured) 97.9 ABG O2 Content 7.6 L* ABG Base Excess -8.7 L Vinny Test Positive O2 Delivery Device No Result Required. Oxygen Flow Rate Yes Vent Mode No Result Required. Vent Rate No Result Required. Mechanical Rate No Result Required. PEEP 0.0 Pressure Support Vent No Result Required. Sodium Potassium Chloride Carbon Dioxide Anion Gap BUN Creatinine Creat Clearance w eGFR Random Glucose Calcium Phosphorus Magnesium Total Bilirubin AST ALT Alkaline Phosphatase Ammonia 91.13 H Troponin I Total Protein Albumin PTH Related Protein IgG IgA IgM Free [place] LC, Quant Free Lambda LC, Quant Free [place]/Lambda Ratio 02/15/18 02/15/18 10:51 10:51 WBC RBC Hgb Hct MCV MCH MCHC RDW Plt Count MPV Absolute Neuts (auto) Total Counted Neutrophils % Neutrophils % (Manual) Band Neutrophils % Lymphocytes % Lymphocytes % (Manual) Monocytes % Monocytes % (Manual) Eosinophils % Eosinophils % (Manual) Basophils % Basophils % (Manual) Myelocytes % (Man) Promyelocytes % (Man) Blast Cells % (Manual) Nucleated RBC % Metamyelocytes Hypochromia Toxic Granulation Dohle Bodies Platelet Estimate Platelet Comment Polychromasia Poikilocytosis Basophilic Stippling Anisocytosis Microcytosis Macrocytosis Spherocytes Sickle Cells Target Cells Tear Drop Cells Ovalocytes Stomatocytes Helmet Cells Foote-Lemitar Bodies Drybranch Rings Rose Marie Cells Acanthocytes (Spur) Rouleaux Fragmented RBCs Schistocytes PT with INR INR PTT (Actin FS) Fibrinogen Anticoagulation Therapy Puncture Site ABG pH ABG pCO2 at Pt Temp ABG pO2 at Pt Temp ABG HCO3 ABG O2 Sat (Measured) ABG O2 Content ABG Base Excess Vinny Test O2 Delivery Device Oxygen Flow Rate Vent Mode Vent Rate Mechanical Rate PEEP Pressure Support Vent Sodium Potassium Chloride Carbon Dioxide Anion Gap BUN Creatinine Creat Clearance w eGFR Random Glucose Calcium Phosphorus Magnesium Total Bilirubin AST ALT Alkaline Phosphatase Ammonia Troponin I Total Protein Albumin PTH Related Protein IgG Cancelled Cancelled IgA Cancelled IgM Cancelled Free [place] LC, Quant Free Lambda LC, Quant Free [place]/Lambda Ratio Active Medications Generic Name Dose Route Start Last Admin Trade Name Freq PRN Reason Stop Dose Admin Acetaminophen 650 mg 02/08/18 05:44 02/12/18 18:10 Tylenol Suppository - VT 650 mg Q6H PRN Administration FEVER Heparin Sodium (Porcine) 5 ml 02/14/18 15:26 Hep-Lock - IVPUSH PRN PRN Heparin Heparin Sodium (Porcine) 1,000 unit 02/15/18 06:38 Heparin - IVPUSH PRN PRN Heparin Heparin Sodium (Porcine) 5,000 unit 02/15/18 06:38 Heparin - IVPUSH PRN PRN Heparin Vancomycin HCl 1,000 mg in 250 mls @ 166.667 mls/hr 02/07/18 20:00 02/14/18 21:32 Vancomycin (Pre-Docked) IVPB 166.667 mls/hr Q24H CHELLY Administration Protocol Piperacillin Sod/Tazobactam 50 mls @ 100 mls/hr 02/13/18 11:00 02/15/18 17:01 Sod 2.25 gm/ Dextrose IVPB 100 mls/hr Q8H-IV CHELLY Administration Protocol Fentanyl 500 mcg/ Dextrose 100 mls @ 5 mls/hr 02/14/18 11:45 02/15/18 07:58 IVPB 25 mcg/hr TITR CHELLY 5 mls/hr Administration Protocol 25 MCG/HR Heparin Sodium/Dextrose 25,000 units in 500 mls @ 20 mls/hr 02/15/18 06:45 16:35 Heparin Infusion - IVPB 650 units/hr TITR CHELLY 13 mls/hr Administration Protocol 1,000 UNITS/HR Metoprolol Tartrate 5 mg 02/14/18 12:00 02/15/18 13:00 Lopressor Injection - IVPUSH 5 mg Q8H CHELLY Administration Pantoprazole Sodium 40 mg 02/14/18 12:00 02/15/18 09:01 Protonix Iv IVPUSH 40 mg DAILY CHELLY Administration Thiamine HCl 100 mg 02/06/18 22:12 02/15/18 09:01 Vitamin B1 - PO 100 mg DAILY CHELLY Administration ASSESSMENT/PLAN: Assessment: Patient will continue to receive plasmapharesis and antibiotics. We will do daily sedation vacations to assess his mental status. He experienced multiple runs of V-Tach overnight. Plan: ID: - wheezes heard on Lung auscultation - CXR shows pulmonary infiltrate, possible PNA vs empyema vs paramnemonic effusion - Abx coverage to zosyn and Vanc - ID on board Cardio: - Sporadically goes in and out of V-Tach - Will let Cards know. - Afib w RVR: Patient is receiving metoprolol 5 mg Q8H - diastolic dysfunction + hypertrophic cardiomyopathy - CAD with multiple stents - Cardio consulted and on board. Pulm: - Intubated - No pneumothorax - increasing Peep to 5 - b/l diffuse wheezes - infiltrate on CXR: Will step up Abx to Zosyn and Vanc - No lasix today Renal: - Acute on Chronic kidney injury - BUN: 58 Cr:2.4. possibly Pre-renal etiology. Unchanged much since yesterday. - Renal consulted and on board. - Patient received plasmapharesis yesterday. Neuro: - Patient is not alert or oriented. He responds to painful stimuli. - Head CT showed no acute pathology Heme/Onc: - Patient received plasmapharesis yesterday. Will get again tomorrow. - Patient has hypercalcemia - Paraproteinemia - Possible Multiple Myeloma, SPEP and UPEP suggestive. - [place]/Lambda ratio > 100 consistent with Multiple myeloma - M spike elevated elevated at 6.8 previously 4.7 Endo: - Hypercalcemia - Glucose wnl - Parathyroid hormone WNL - PTH-borderline low appropriate given hypercalcemia, PTHrP low F/E/N: F: No standing fluids due to fluid overload in lungs E: Mag low. Repleted. N: tube feeds. Code Status: Full Code Dispo: Patient will continue to receive ICU level care Visit type - Emergency Visit Emergency Visit: Yes ED Registration Date: 02/06/18 Care time: The patient presented to the Emergency Department on the above date and was hospitalized for further evaluation of their emergent condition. - New Patient This patient is new to me today: No - Critical Care Critical Care patient: Yes Total Critical Care Time (in minutes): 36 Critical Care Statement: The care of this patient involved high complexity decision making to prevent further life threatening deterioration of the patient 's condition and/or to evaluate & treat vital organ system(s) failure or risk of failure.
--- NOTE | 2018-02-15 18:45 | PN ---
Progress Note, Physician Chief Complaint: AMS Unresponsiveness History of Present Illness: Intubated yesterday On mechanical vent Underwent apheresis. - Current Medication List Current Medications: Active Medications Acetaminophen (Tylenol Suppository -) 650 mg ND Q6H PRN PRN Reason: FEVER Last Admin: 02/12/18 18:10 Dose: 650 mg Heparin Sodium (Porcine) (Hep-Lock -) 5 ml IVPUSH PRN PRN PRN Reason: Heparin Heparin Sodium (Porcine) (Heparin -) 1,000 unit IVPUSH PRN PRN PRN Reason: Heparin Heparin Sodium (Porcine) (Heparin -) 5,000 unit IVPUSH PRN PRN PRN Reason: Heparin Vancomycin HCl (Vancomycin (Pre-Docked)) 1,000 mg in 250 mls @ 166.667 mls/hr IVPB Q24H CHELLY; Protocol Last Admin: 02/14/18 21:32 Dose: 166.667 mls/hr Piperacillin Sod/Tazobactam (Sod 2.25 gm/ Dextrose) 50 mls @ 100 mls/hr IVPB Q8H-IV CHELLY; Protocol Last Admin: 02/15/18 17:01 Dose: 100 mls/hr Fentanyl 500 mcg/ Dextrose 100 mls @ 5 mls/hr IVPB TITR CHELLY; Protocol Last Admin: 02/15/18 07:58 Dose: 25 mcg/hr, 5 mls/hr Heparin Sodium/Dextrose (Heparin Infusion -) 25,000 units in 500 mls @ 20 mls/ hr IVPB TITR CHELLY; Protocol Last Admin: 02/15/18 16:35 Dose: 650 units/hr, 13 mls/hr Metoprolol Tartrate (Lopressor Injection -) 5 mg IVPUSH Q8H CHELLY Last Admin: 02/15/18 13:00 Dose: 5 mg Pantoprazole Sodium (Protonix Iv) 40 mg IVPUSH DAILY CHELLY Last Admin: 02/15/18 09:01 Dose: 40 mg Thiamine HCl (Vitamin B1 -) 100 mg PO DAILY CHELLY Last Admin: 02/15/18 09:01 Dose: 100 mg - Objective Vital Signs: Vital Signs Temperature 100 F H 02/15/18 18:00 Pulse Rate 92 H 02/15/18 18:00 Respiratory Rate 17 02/15/18 18:00 Blood Pressure 105/63 02/15/18 18:00 O2 Sat by Pulse Oximetry (%) 100 02/15/18 08:59 Labs: CBC, BMP 02/15/18 05:30 02/15/18 05:30 INR, PTT INR 2.07 (0.83-1.09) H 02/14/18 16:20 Fibrinogen 134.0 mg/dL (238-498) L D 02/14/18 16:20 Problem List - Problems (1) MELITA (acute kidney injury) Code(s): N17.9 - ACUTE KIDNEY FAILURE, UNSPECIFIED (2) Atrial fibrillation with RVR Code(s): I48.91 - UNSPECIFIED ATRIAL FIBRILLATION (3) Sepsis Code(s): A41.9 - SEPSIS, UNSPECIFIED ORGANISM (4) Toxic metabolic encephalopathy Code(s): G92 - TOXIC ENCEPHALOPATHY (5) Altered mental status Code(s): R41.82 - ALTERED MENTAL STATUS, UNSPECIFIED (6) Anemia Code(s): D64.9 - ANEMIA, UNSPECIFIED
[2018-02-15] MEDS: VANCOMYCIN 1 GRAM (PRE-DOCKED) 1,000 MG/250 ML BAG IVPB SCH (21:02)
--- NOTE | 2018-02-15 23:50 | PN ---
Progress Note (short form) - Note Progress Note: Patient seen and examined Feels well Last Vital Signs Temp Pulse Resp BP Pulse Ox 99.6 F 109 H 18 96/56 L 100 02/16/18 02:00 02/16/18 06:06 02/16/18 06:39 02/16/18 06:06 02/15/18 20:33 Cor: RSR, No murmurs, No gallops Lungs: Clear to P&A Abd: Soft, Normal bowel sounds, No organomegaly Ext:No significant edema Labs/Meds reviewed A/P 77 year old gentleman with hx of CKD, Afib on A/C, CAD, CKD, Hypertension, Hyperlipidemia, PVD who presented with AMS/Confusion and found to have MELITA/ hypercalcemia/anemia acute desaturation Clinical picture concerning for paraproteinemia SFLCA --Hurley chains--2000s/ratio 438 IgG > 7grams IgM < 5 ? hyperviscosity due to paraproteinemia serum viscosity pending will repeat session no. 3 pheresis tomorrow monitor coags/fibrinogen/cbc/cmp
[2018-02-16 00:12] LABS: FREE KAPPA,SERUM 3135.8 mg/L (3.3-19.4)
[2018-02-16] MEDS: PIPERACILLIN/TAZOB 2.25 GM 2.25 GM in DEXTROSE 5%-WATER - 50 ML IVPB SCH ×3 (01:47→17:27)
[2018-02-16 06:02] LABS: BASO % 0.3 % (0-2.0); EOS % 1.7 % (0-4.5); HEMOGLOBIN 8.4 GM/dL (11.7-16.9); LYMPH % 22.7 % (8-40); MCH 30.3 pg (25.7-33.7); MCHC 33.8 g/dl (32.0-35.9); MEAN CELL VOLUME 89.8 fl (80-96); MEAN PLT VOLUME 9.4 fl (7.5-11.1); MONO % 2.8 % (3.8-10.2); NEUT % 72.5 % (42.8-82.8); PLATELET COUNT 127 K/MM3 (134-434); RBC 2.78 M/mm3 (4.00-5.60); RDW 16.1 % (11.9-15.9); WHITE BLOOD COUNT 5.2 K/mm3 (4.0-10.0)
[2018-02-16] MEDS: METOPROLOL TARTRATE 5 MG/5 ML VIAL IVPUSH SCH (06:06)
[2018-02-16 06:42] LABS: ARTERIAL BLD GAS O2 SATURATION 97.8 % (90-98.9); ARTERIAL BLOOD GAS BASE EXCESS -6.3 meq/l (-2-2); ARTERIAL BLOOD GAS PCO2 37.7 mmHg (35-45); ARTERIAL BLOOD GAS pH 7.32 (7.35-7.45)
[2018-02-16 06:42] LABS: ALBUMIN 2.4 g/dl (3.4-5.0); ALK PHOS 146 U/L (45-117); ANION GAP 5 MMOL/L (8-16); BILIRUBIN,TOTAL 0.3 mg/dL (0.2-1); BLOOD UREA NITROGEN 47 mg/dL (7-18); CALCIUM 7.2 mg/dL (8.5-10.1); CHLORIDE 113 mmol/L (98-107); CO2 22 mmol/L (21-32); CREATININE 2.1 mg/dL (0.55-1.3); GLUCOSE,RANDOM 123 mg/dL (74-106); PHOSPHOROUS 2.1 mg/dL (2.5-4.9); POTASSIUM 4.1 mmol/L (3.5-5.1); SGOT/AST 62 U/L (15-37); SGPT/ALT 45 U/L (13-61); SODIUM 140 mmol/L (136-145); TOT PROT 8.2 g/dl (6.4-8.2)
[2018-02-16] MEDS: HEPARIN INFUSION - 25,000 UNITS/500 ML INFUS.BAG IVPB SCH (06:48)
[2018-02-16 06:49] LABS: ALLENS TEST POSITIVE
[2018-02-16 07:02] LABS: INR 1.28 (0.83-1.09); PROTHROMBIN TIME (PATIENT) 15.2 SEC (9.7-13.0)
[2018-02-16] MEDS ORDERED: SODIUM PHOSPHATE - 15 MM in SODIUM CHLORIDE 250 ML IVPB ONE (07:08)
--- NOTE | 2018-02-16 07:31 | PN ---
Progress Note, Physician Chief Complaint: INTUBATED SEDATED EVENTS AND NOTES REVIEWED - Current Medication List Current Medications: Active Medications Acetaminophen (Tylenol Suppository -) 650 mg WA Q6H PRN PRN Reason: FEVER Last Admin: 02/12/18 18:10 Dose: 650 mg Heparin Sodium (Porcine) (Hep-Lock -) 5 ml IVPUSH PRN PRN PRN Reason: Heparin Heparin Sodium (Porcine) (Heparin -) 1,000 unit IVPUSH PRN PRN PRN Reason: Heparin Heparin Sodium (Porcine) (Heparin -) 5,000 unit IVPUSH PRN PRN PRN Reason: Heparin Vancomycin HCl (Vancomycin (Pre-Docked)) 1,000 mg in 250 mls @ 166.667 mls/hr IVPB Q24H CHELLY; Protocol Last Admin: 02/15/18 21:02 Dose: 166.667 mls/hr Piperacillin Sod/Tazobactam (Sod 2.25 gm/ Dextrose) 50 mls @ 100 mls/hr IVPB Q8H-IV CHELLY; Protocol Last Admin: 02/16/18 01:47 Dose: 100 mls/hr Fentanyl 500 mcg/ Dextrose 100 mls @ 5 mls/hr IVPB TITR CHELLY; Protocol Last Admin: 02/15/18 20:57 Dose: Not Given Heparin Sodium/Dextrose (Heparin Infusion -) 25,000 units in 500 mls @ 20 mls/ hr IVPB TITR CHELLY; Protocol Last Admin: 02/16/18 06:48 Dose: Not Given Sodium Phosphate 15 mm/ Sodium (Chloride) 255 mls @ 62.5 mls/hr IVPB ONCE ONE Stop: 02/16/18 11:12 Metoprolol Tartrate (Lopressor Injection -) 5 mg IVPUSH Q8H [facility] Last Admin: 02/16/18 06:06 Dose: Not Given Pantoprazole Sodium (Protonix Iv) 40 mg IVPUSH DAILY [facility] Last Admin: 02/15/18 09:01 Dose: 40 mg Thiamine HCl (Vitamin B1 -) 100 mg PO DAILY [facility] Last Admin: 02/15/18 09:01 Dose: 100 mg - Objective Vital Signs: Vital Signs Temperature 99.6 F 02/16/18 02:00 Pulse Rate 109 H 02/16/18 06:06 Respiratory Rate 18 02/16/18 06:39 Blood Pressure 96/56 L 02/16/18 06:06 O2 Sat by Pulse Oximetry (%) 100 02/15/18 20:33 Constitutional: Yes: Other Cardiovascular: Yes: Tachycardia Respiratory: Yes: Mechanically Ventilated Gastrointestinal: Yes: Soft Genitourinary: Yes: Brenner Present Musculoskeletal: Yes: Muscle Weakness Extremities: Yes: Other Edema: Yes Integumentary: Yes: WNL Wound/Incision: Yes: Dressing Dry and Intact Neurological: Yes: Pre-Existing Deficit ...Motor Strength: LLE, RLE Psychiatric: Yes: Other Labs: CBC, BMP 02/16/18 05:30 02/16/18 05:30 INR, PTT INR 1.28 (0.83-1.09) H 02/16/18 05:30 Fibrinogen 134.0 mg/dL (238-498) L D 02/14/18 16:20 Problem List - Problems (1) MELITA (acute kidney injury) Code(s): N17.9 - ACUTE KIDNEY FAILURE, UNSPECIFIED (2) Atrial fibrillation with RVR Code(s): I48.91 - UNSPECIFIED ATRIAL FIBRILLATION (3) Hyperlipidemia Code(s): E78.5 - HYPERLIPIDEMIA, UNSPECIFIED Qualifiers: Hyperlipidemia type: pure hypercholesterolemia Qualified Code(s): E78.00 - Pure hypercholesterolemia, unspecified; E78.0 - Pure hypercholesterolemia (4) Hypothermia Code(s): T68.XXXA - HYPOTHERMIA, INITIAL ENCOUNTER Qualifiers: Encounter type: initial encounter Qualified Code(s): T68.XXXA - Hypothermia , initial encounter (5) Lxogz-iv-yoyctac kidney injury Code(s): N17.9 - ACUTE KIDNEY FAILURE, UNSPECIFIED; N18.9 - CHRONIC KIDNEY DISEASE, UNSPECIFIED Qualifiers: Acute renal failure type: unspecified Chronic kidney disease stage: unspecified stage Qualified Code(s): N17.9 - Acute kidney failure, unspecified ; N18.9 - Chronic kidney disease, unspecified (6) Generalized weakness Code(s): R53.1 - WEAKNESS (7) History of ETOH abuse Code(s): Z87.898 - PERSONAL HISTORY OF OTHER SPECIFIED CONDITIONS (8) Hypercalcemia Code(s): E83.52 - HYPERCALCEMIA (9) Hypertrophic cardiomyopathy Code(s): I42.2 - OTHER HYPERTROPHIC CARDIOMYOPATHY (10) Toxic metabolic encephalopathy Code(s): G92 - TOXIC ENCEPHALOPATHY (11) Sepsis Code(s): A41.9 - SEPSIS, UNSPECIFIED ORGANISM Assessment/Plan INTUBATED AND SEDATED WEAN OFF TOLERATED TOXIC METABOLIC ENCEPHALOPATHY NEURO AND CARDIO EVAL HEPARIN IV FOR AC AFIB SWALLOW EVAL WITH DYSPHAGIA PRECAUTIONS MONITOR RENAL FUNCTION STILL WEAK/AT FALL RISKS NEURO CHECKS PT/SNF WHEN EATING AND MORE MEDICALLY STABLE FREQUENT TURNING
[2018-02-16 08:06] LABS: IGA IMMUNOGLOBULIN 13 mg/dL (61-437); IGM IMMUNOGLOBULIN 6 mg/dL (15-143)
[2018-02-16] MEDS ORDERED: PIPERACILLIN/TAZOBACTAM 2.25 GM VIAL IVPB ONE ×3 (09:20→21:59)
[2018-02-16] MEDS ORDERED: DEXTROSE 5%-WATER - 50 ML IVPB ONE ×3 (09:21→21:59)
[2018-02-16] MEDS: THIAMINE HCL 100 MG TABLET (FP) PO SCH (09:26)
[2018-02-16] MEDS: PANTOPRAZOLE SODIUM 40 MG VIAL IVPUSH SCH (09:26)
--- NOTE | 2018-02-16 09:48 | PN ---
Progress Note (short form) - Note Progress Note: Patient seen and examined Remains intubated Lethargic, non responsive , with withdrawl to painful stimuli Last Vital Signs Temp Pulse Resp BP Pulse Ox 99.6 F 104 H 18 96/59 L 98 02/16/18 02:00 02/16/18 08:00 02/16/18 08:54 02/16/18 08:00 02/16/18 08:54 HEENT: [place], EOM Intact,arcus Oropharynx: ET tube Cor: irregular Lungs: Clear to P&A Abd: Soft, Normal bowel sounds, No organomegaly Ext:No significant edemaheel pads Skin: No rashes, Integument intact CBC, BMP 02/16/18 05:30 02/16/18 05:30 Current Medications Generic Name Dose Route Start Last Admin Trade Name Freq PRN Reason Stop Dose Admin Acetaminophen 650 mg 02/08/18 05:44 02/12/18 18:10 Tylenol Suppository - SD 650 mg Q6H PRN Administration FEVER Allopurinol 100 mg 02/16/18 10:00 Zyloprim - PO BID [facility] Heparin Sodium (Porcine) 5 ml 02/14/18 15:26 Hep-Lock - IVPUSH PRN PRN Heparin Heparin Sodium (Porcine) 1,000 unit 02/15/18 06:38 Heparin - IVPUSH PRN PRN Heparin Heparin Sodium (Porcine) 5,000 unit 02/15/18 06:38 Heparin - IVPUSH PRN PRN Heparin Vancomycin HCl 1,000 mg in 250 mls @ 166.667 mls/hr 02/07/18 20:00 02/15/18 21:02 Vancomycin (Pre-Docked) IVPB 166.667 mls/hr Q24H [facility] Administration Protocol Piperacillin Sod/Tazobactam 50 mls @ 100 mls/hr 02/13/18 11:00 02/16/18 09:26 Sod 2.25 gm/ Dextrose IVPB 100 mls/hr Q8H-IV [facility] Administration Protocol Fentanyl 500 mcg/ Dextrose 100 mls @ 5 mls/hr 02/14/18 11:45 02/15/18 20:57 IVPB Not Given TITR [facility] Protocol 25 MCG/HR Heparin Sodium/Dextrose 25,000 units in 500 mls @ 20 mls/hr 02/15/18 06:45 06:48 Heparin Infusion - IVPB Not Given TITR [facility] Protocol 1,000 UNITS/HR Sodium Phosphate 15 mm/ Sodium 255 mls @ 62.5 mls/hr 02/16/18 07:08 Chloride IVPB 02/16/18 11:12 ONCE ONE Lactulose 20 gm 02/16/18 09:38 Cephulac (Oral Use) PO 02/16/18 09:39 TID STA Metoprolol Tartrate 5 mg 02/14/18 12:00 02/16/18 06:06 Lopressor Injection - IVPUSH Not Given Q8H [facility] Pantoprazole Sodium 40 mg 02/14/18 12:00 02/16/18 09:26 Protonix Iv IVPUSH 40 mg DAILY [facility] Administration Thiamine HCl 100 mg 02/06/18 22:12 02/16/18 09:26 Vitamin B1 - PO 100 mg DAILY [facility] Administration Impression: Patient fulfills new criteria for multiple myeloma with free kappa/ free lambda light chain ratio of 432 (>100 is diagnostic of myeloma) Patient has had decrease in paraprotein IgG from > 6700---> 3100 with pheresis High free kappa levels may be contributing to renal insufficiency Unusual unexplained phenomenon of myeloma and hypercalcemia with elevated blood level of ammonia not associated with liver disease. ( Patients ammonia level is 91) Plan Continue pheresis -Lowereing of IgG noted. IgG is typically monomeric and unusually associated with hyperviscosity. Await results The pheresis may be contributing to treating myeloma kidney. Will plan to begin decadron next few days after initiation of allopurinol. Will begin lactulose for elevated ammonia.
[2018-02-16 10:00] LABS: URIC ACID 6.4 mg/dL (2.6-7.2)
[2018-02-16] MEDS: ALLOPURINOL 100 MG TABLET (FP) PO SCH ×2 (10:41→22:00)
[2018-02-16] MEDS: LACTULOSE 20 GM/30 ML UDC (FOR ORAL USE ONLY) PO SCH ×3 (10:41→22:02)
[2018-02-16 11:33] LABS: ANISOCYTOSIS 1+; MACROCYTOSIS 0; PLATELET ESTIMATE NORMAL
--- NOTE | 2018-02-16 11:48 | PN ---
Teaching Attending Note Name of Resident: Sebastián Oneil ATTENDING PHYSICIAN STATEMENT I saw and evaluated the patient. I reviewed the resident's note and discussed the case with the resident. I agree with the resident's findings and plan as documented. SUBJECTIVE: Patient seen and examined in the ICU. Remains intubated and sedated. RN for Plasmapheresis at the bedside. Minimally responsive to pain. Intake & Output 02/13/18 02/14/18 02/15/18 02/16/18 23:59 23:59 23:59 23:59 Intake Total 1089 2087 1792 1126 Output Total 2400 1650 1800 600 Balance -1311 437 -8 526 Weight 178 lb 12.8 oz 179 lb 7 oz 178 lb 4 oz 177 lb 1 oz Last Vital Signs Temp Pulse Resp BP Pulse Ox 99.6 F 104 H 21 H 96/59 L 98 02/16/18 02:00 02/16/18 08:00 02/16/18 11:16 02/16/18 08:00 02/16/18 08:54 Active Medications Acetaminophen (Tylenol Suppository -) 650 mg HI Q6H PRN PRN Reason: FEVER Last Admin: 02/12/18 18:10 Dose: 650 mg Albumin Human (Albutein) 162.5 gm IVPB ONCE ONE Stop: 02/16/18 12:01 Allopurinol (Zyloprim -) 100 mg PO BID [facility] Last Admin: 02/16/18 10:41 Dose: 100 mg Diphenhydramine HCl (Benadryl Injection -) 25 mg IVPB ONCE PRN PRN Reason: DURING PLASMAPHERESIS Heparin Sodium (Porcine) (Hep-Lock -) 5 ml IVPUSH PRN PRN PRN Reason: Heparin Heparin Sodium (Porcine) (Heparin -) 1,000 unit IVPUSH PRN PRN PRN Reason: Heparin Heparin Sodium (Porcine) (Heparin -) 5,000 unit IVPUSH PRN PRN PRN Reason: Heparin Vancomycin HCl (Vancomycin (Pre-Docked)) 1,000 mg in 250 mls @ 166.667 mls/hr IVPB Q24H [facility]; Protocol Last Admin: 02/15/18 21:02 Dose: 166.667 mls/hr Piperacillin Sod/Tazobactam (Sod 2.25 gm/ Dextrose) 50 mls @ 100 mls/hr IVPB Q8H-IV [facility]; Protocol Last Admin: 02/16/18 09:26 Dose: 100 mls/hr Fentanyl 500 mcg/ Dextrose 100 mls @ 5 mls/hr IVPB TITR [facility]; Protocol Last Admin: 02/15/18 20:57 Dose: Not Given Heparin Sodium/Dextrose (Heparin Infusion -) 25,000 units in 500 mls @ 20 mls/ hr IVPB TITR [facility]; Protocol Last Admin: 02/16/18 06:48 Dose: Not Given Lactulose (Cephulac (Oral Use)) 20 gm PO TID [facility] Last Admin: 02/16/18 10:41 Dose: 20 gm Metoprolol Tartrate (Lopressor Injection -) 5 mg IVPUSH Q8H [facility] Last Admin: 02/16/18 06:06 Dose: Not Given Pantoprazole Sodium (Protonix Iv) 40 mg IVPUSH DAILY [facility] Last Admin: 02/16/18 09:26 Dose: 40 mg Thiamine HCl (Vitamin B1 -) 100 mg PO DAILY [facility] Last Admin: 02/16/18 09:26 Dose: 100 mg Constitutional: Yes: Intubated and sedated Cardiovascular: Yes: Pulse Irregular, AFib Respiratory: Yes: Intubated and sedated Gastrointestinal: Yes: Normal Bowel Sounds, Soft Musculoskeletal: Yes: WNL Extremities: Yes: WNL Edema: No Peripheral Pulses WNL: Yes Neurological: Yes: Sedated Labs: Laboratory Results - last 24 hr 02/12/18 02/12/18 02/15/18 16:25 21:45 10:51 WBC RBC Hgb Hct MCV MCH MCHC RDW Plt Count MPV Absolute Neuts (auto) Neutrophils % Lymphocytes % Monocytes % Eosinophils % Basophils % Nucleated RBC % PT with INR INR PTT (Actin FS) Fibrinogen Puncture Site ABG pH ABG pCO2 at Pt Temp ABG pO2 at Pt Temp ABG HCO3 ABG O2 Sat (Measured) ABG O2 Content ABG Base Excess Vinny Test O2 Delivery Device Oxygen Flow Rate Vent Rate PEEP Pressure Support Vent Sodium Potassium Chloride Carbon Dioxide Anion Gap BUN Creatinine Creat Clearance w eGFR Random Glucose Lactic Acid Uric Acid Calcium Phosphorus Magnesium Total Bilirubin AST ALT Alkaline Phosphatase Troponin I B-Natriuretic Peptide Total Protein Albumin IgG 6770 H Cancelled IgA 13 L Cancelled IgM 6 L Cancelled Free [place] LC, Quant 3135.8 H Free Lambda LC, Quant 5.7 Free [place]/Lambda Ratio 550.14 H Blood Type Antibody Screen 02/15/18 02/16/18 02/16/18 10:51 05:30 05:30 WBC 5.2 RBC 2.78 L Hgb 8.4 L Hct 25.0 L MCV 89.8 MCH 30.3 MCHC 33.8 RDW 16.1 H Plt Count 127 L MPV 9.4 Absolute Neuts (auto) 3.8 Neutrophils % 72.5 Lymphocytes % 22.7 Monocytes % 2.8 L Eosinophils % 1.7 Basophils % 0.3 Nucleated RBC % 4 H PT with INR INR PTT (Actin FS) Fibrinogen Puncture Site ABG pH ABG pCO2 at Pt Temp ABG pO2 at Pt Temp ABG HCO3 ABG O2 Sat (Measured) ABG O2 Content ABG Base Excess Vinny Test O2 Delivery Device Oxygen Flow Rate Vent Rate PEEP Pressure Support Vent Sodium 140 Potassium 4.1 Chloride 113 H Carbon Dioxide 22 Anion Gap 5 L BUN 47 H Creatinine 2.1 H Creat Clearance w eGFR 30.62 Random Glucose 123 H Lactic Acid Uric Acid 6.4 Calcium 7.2 L Phosphorus 2.1 L Magnesium 2.0 Total Bilirubin 0.3 AST 62 H ALT 45 Alkaline Phosphatase 146 H Troponin I 0.27 H B-Natriuretic Peptide 7658.0 H Total Protein 8.2 Albumin 2.4 L IgG Cancelled IgA IgM Free [place] LC, Quant Free Lambda LC, Quant Free [place]/Lambda Ratio Blood Type Antibody Screen 02/16/18 02/16/18 02/16/18 05:30 05:30 05:30 WBC RBC Hgb Hct MCV MCH MCHC RDW Plt Count MPV Absolute Neuts (auto) Neutrophils % Lymphocytes % Monocytes % Eosinophils % Basophils % Nucleated RBC % PT with INR 15.20 H INR 1.28 H PTT (Actin FS) Fibrinogen 293.0 D Puncture Site ABG pH ABG pCO2 at Pt Temp ABG pO2 at Pt Temp ABG HCO3 ABG O2 Sat (Measured) ABG O2 Content ABG Base Excess Vinny Test O2 Delivery Device Oxygen Flow Rate Vent Rate PEEP Pressure Support Vent Sodium Potassium Chloride Carbon Dioxide Anion Gap BUN Creatinine Creat Clearance w eGFR Random Glucose Lactic Acid 0.7 Uric Acid Calcium Phosphorus Magnesium Total Bilirubin AST ALT Alkaline Phosphatase Troponin I B-Natriuretic Peptide Total Protein Albumin IgG IgA IgM Free [place] LC, Quant Free Lambda LC, Quant Free [place]/Lambda Ratio Blood Type Antibody Screen 02/16/18 02/16/18 02/16/18 05:30 05:30 06:15 WBC RBC Hgb Hct MCV MCH MCHC RDW Plt Count MPV Absolute Neuts (auto) Neutrophils % Lymphocytes % Monocytes % Eosinophils % Basophils % Nucleated RBC % PT with INR INR PTT (Actin FS) 62.0 H Fibrinogen Puncture Site Right radial ABG pH 7.32 L ABG pCO2 at Pt Temp 37.7 ABG pO2 at Pt Temp 110.0 H ABG HCO3 18.7 L ABG O2 Sat (Measured) 97.8 ABG O2 Content 12.1 L ABG Base Excess -6.3 L Vinny Test Positive O2 Delivery Device Vent Oxygen Flow Rate 30 Vent Rate 12 PEEP 5.0 Pressure Support Vent 500 Sodium Potassium Chloride Carbon Dioxide Anion Gap BUN Creatinine Creat Clearance w eGFR Random Glucose Lactic Acid Uric Acid Cancelled Calcium Phosphorus Magnesium Total Bilirubin AST ALT Alkaline Phosphatase Troponin I B-Natriuretic Peptide Total Protein Albumin IgG IgA IgM Free [place] LC, Quant Free Lambda LC, Quant Free [place]/Lambda Ratio Blood Type Antibody Screen 02/16/18 09:11 WBC RBC Hgb Hct MCV MCH MCHC RDW Plt Count MPV Absolute Neuts (auto) Neutrophils % Lymphocytes % Monocytes % Eosinophils % Basophils % Nucleated RBC % PT with INR INR PTT (Actin FS) Fibrinogen Puncture Site ABG pH ABG pCO2 at Pt Temp ABG pO2 at Pt Temp ABG HCO3 ABG O2 Sat (Measured) ABG O2 Content ABG Base Excess Vinny Test O2 Delivery Device Oxygen Flow Rate Vent Rate PEEP Pressure Support Vent Sodium Potassium Chloride Carbon Dioxide Anion Gap BUN Creatinine Creat Clearance w eGFR Random Glucose Lactic Acid Uric Acid Calcium Phosphorus Magnesium Total Bilirubin AST ALT Alkaline Phosphatase Troponin I B-Natriuretic Peptide Total Protein Albumin IgG IgA IgM Free [place] LC, Quant Free Lambda LC, Quant Free [place]/Lambda Ratio Blood Type B POSITIVE Antibody Screen Negative Problem List Acute Respiratory Failure Suspected Aspiration MELITA (acute kidney injury) R/O Hyperviscosity Atrial Fibrillation with RVR R/O Sepsis AMS Anemia (?) Apical PTX: does not appear to have a PTX on CXR today PLAN: AC Mode of vent PEEP 5 cm H2O AC Strict I & O Monitor CXR Daily sedation vacation ABX coverage Rate control Plasmapheresis per Heme Enteral feeds Dr Walker Critical care time spent in reviewing chart, evaluating patient and formulating plan - 36 minutes.
--- NOTE | 2018-02-16 11:49 | PN ---
Progress Note, Physician History of Present Illness: Intubated on mechanical ventilation Opens eyes to calling name Low grade temp Receiving pheresis Repeat BC no growth - Current Medication List Current Medications: Active Medications Acetaminophen (Tylenol Suppository -) 650 mg ME Q6H PRN PRN Reason: FEVER Last Admin: 02/12/18 18:10 Dose: 650 mg Albumin Human (Albutein) 162.5 gm IVPB ONCE ONE Stop: 02/16/18 12:01 Allopurinol (Zyloprim -) 100 mg PO BID [facility] Last Admin: 02/16/18 10:41 Dose: 100 mg Diphenhydramine HCl (Benadryl Injection -) 25 mg IVPB ONCE PRN PRN Reason: DURING PLASMAPHERESIS Heparin Sodium (Porcine) (Hep-Lock -) 5 ml IVPUSH PRN PRN PRN Reason: Heparin Heparin Sodium (Porcine) (Heparin -) 1,000 unit IVPUSH PRN PRN PRN Reason: Heparin Heparin Sodium (Porcine) (Heparin -) 5,000 unit IVPUSH PRN PRN PRN Reason: Heparin Vancomycin HCl (Vancomycin (Pre-Docked)) 1,000 mg in 250 mls @ 166.667 mls/hr IVPB Q24H [facility]; Protocol Last Admin: 02/15/18 21:02 Dose: 166.667 mls/hr Piperacillin Sod/Tazobactam (Sod 2.25 gm/ Dextrose) 50 mls @ 100 mls/hr IVPB Q8H-IV [facility]; Protocol Last Admin: 02/16/18 09:26 Dose: 100 mls/hr Fentanyl 500 mcg/ Dextrose 100 mls @ 5 mls/hr IVPB TITR [facility]; Protocol Last Admin: 02/15/18 20:57 Dose: Not Given Heparin Sodium/Dextrose (Heparin Infusion -) 25,000 units in 500 mls @ 20 mls/ hr IVPB TITR [facility]; Protocol Last Admin: 02/16/18 06:48 Dose: Not Given Lactulose (Cephulac (Oral Use)) 20 gm PO TID [facility] Last Admin: 02/16/18 10:41 Dose: 20 gm Metoprolol Tartrate (Lopressor Injection -) 5 mg IVPUSH Q8H [facility] Last Admin: 02/16/18 06:06 Dose: Not Given Pantoprazole Sodium (Protonix Iv) 40 mg IVPUSH DAILY [facility] Last Admin: 02/16/18 09:26 Dose: 40 mg Thiamine HCl (Vitamin B1 -) 100 mg PO DAILY [facility] Last Admin: 02/16/18 09:26 Dose: 100 mg - Objective Vital Signs: Vital Signs Temperature 99.6 F 02/16/18 02:00 Pulse Rate 104 H 02/16/18 08:00 Respiratory Rate 21 H 02/16/18 11:16 Blood Pressure 96/59 L 02/16/18 08:00 O2 Sat by Pulse Oximetry (%) 98 02/16/18 08:54 Constitutional: Yes: No Distress Eyes: Yes: Conjunctiva Clear Cardiovascular: Yes: Regular Rate and Rhythm, S1, S2 Respiratory: Yes: Mechanically Ventilated Gastrointestinal: Yes: Normal Bowel Sounds, Soft. No: Tenderness Edema: No Labs: CBC, BMP 02/16/18 05:30 02/16/18 05:30 INR, PTT INR 1.28 (0.83-1.09) H 02/16/18 05:30 Fibrinogen 293.0 mg/dL (238-498) D 02/16/18 05:30 Assessment/Plan Respiratory failure RLL pneumonia Toxic metabolic encephalopathy Hypercalcemia Renal failure Suspected myeloma Hyperviscosity syndrome Continue broad spectrum antimicrobial coverage- zosyn Ventilatory support Apheresis
[2018-02-16] MEDS ORDERED: ALBUMIN HUMAN 5% 500 ML IV SOLUTION IVPB ONE (12:00)
--- NOTE | 2018-02-16 12:24 | PN ---
Progress Note, Physician Chief Complaint: The patient seen in the ICU. Intubated,a nd vent supported. Poorly responsive, except for minimal response to calling names. Maintains good urine output. IV fluids well tolerated. History of Present Illness: This is a 77 year old gentleman with hx of CKD, Afib on A/C, CAD, CKD, Hypertension, Hyperlipidemia, PVD who presented with AMS/Confusion and found to have MELITA. - Current Medication List Current Medications: Active Medications Acetaminophen (Tylenol Suppository -) 650 mg CA Q6H PRN PRN Reason: FEVER Last Admin: 02/12/18 18:10 Dose: 650 mg Allopurinol (Zyloprim -) 100 mg PO BID [facility] Last Admin: 02/16/18 10:41 Dose: 100 mg Diphenhydramine HCl (Benadryl Injection -) 25 mg IVPB ONCE PRN PRN Reason: DURING PLASMAPHERESIS Heparin Sodium (Porcine) (Hep-Lock -) 5 ml IVPUSH PRN PRN PRN Reason: Heparin Heparin Sodium (Porcine) (Heparin -) 1,000 unit IVPUSH PRN PRN PRN Reason: Heparin Heparin Sodium (Porcine) (Heparin -) 5,000 unit IVPUSH PRN PRN PRN Reason: Heparin Vancomycin HCl (Vancomycin (Pre-Docked)) 1,000 mg in 250 mls @ 166.667 mls/hr IVPB Q24H [facility]; Protocol Last Admin: 02/15/18 21:02 Dose: 166.667 mls/hr Piperacillin Sod/Tazobactam (Sod 2.25 gm/ Dextrose) 50 mls @ 100 mls/hr IVPB Q8H-IV [facility]; Protocol Last Admin: 02/16/18 09:26 Dose: 100 mls/hr Fentanyl 500 mcg/ Dextrose 100 mls @ 5 mls/hr IVPB TITR [facility]; Protocol Last Admin: 02/15/18 20:57 Dose: Not Given Heparin Sodium/Dextrose (Heparin Infusion -) 25,000 units in 500 mls @ 20 mls/ hr IVPB TITR [facility]; Protocol Last Admin: 02/16/18 06:48 Dose: Not Given Lactulose (Cephulac (Oral Use)) 20 gm PO TID [facility] Last Admin: 02/16/18 10:41 Dose: 20 gm Metoprolol Tartrate (Lopressor Injection -) 5 mg IVPUSH Q8H [facility] Last Admin: 02/16/18 06:06 Dose: Not Given Pantoprazole Sodium (Protonix Iv) 40 mg IVPUSH DAILY [facility] Last Admin: 02/16/18 09:26 Dose: 40 mg Thiamine HCl (Vitamin B1 -) 100 mg PO DAILY [facility] Last Admin: 02/16/18 09:26 Dose: 100 mg - Objective Vital Signs: Vital Signs Temperature 99.6 F 02/16/18 10:00 Pulse Rate 116 H 02/16/18 12:00 Respiratory Rate 18 02/16/18 12:00 Blood Pressure 118/70 02/16/18 12:00 O2 Sat by Pulse Oximetry (%) 98 02/16/18 08:54 Constitutional: Yes: Pallor, Other (Poorly responsive) Eyes: Yes: Conjunctiva Clear HENT: Yes: Atraumatic Neck: Yes: Trachea Midline Cardiovascular: Yes: Pulse Irregular, S1, S2 Respiratory: Yes: CTA Bilaterally, Diminished, Mechanically Ventilated Gastrointestinal: Yes: Normal Bowel Sounds, Soft Edema: No Neurological: Yes: Unresponsive Labs: CBC, BMP 02/16/18 05:30 02/16/18 05:30 INR, PTT INR 1.28 (0.83-1.09) H 02/16/18 05:30 Fibrinogen 293.0 mg/dL (238-498) D 02/16/18 05:30 Problem List - Problems (1) Multiple myeloma Code(s): C90.00 - MULTIPLE MYELOMA NOT HAVING ACHIEVED REMISSION (2) MELITA (acute kidney injury) Code(s): N17.9 - ACUTE KIDNEY FAILURE, UNSPECIFIED (3) Altered mental status Code(s): R41.82 - ALTERED MENTAL STATUS, UNSPECIFIED (4) Anemia Code(s): D64.9 - ANEMIA, UNSPECIFIED (5) Atrial fibrillation with RVR Code(s): I48.91 - UNSPECIFIED ATRIAL FIBRILLATION (6) Cellulitis Code(s): L03.90 - CELLULITIS, UNSPECIFIED Qualifiers: Site of cellulitis: extremity Site of cellulitis of extremity: lower extremity Laterality: right Qualified Code(s): L03.115 - Cellulitis of right lower limb (7) Hyperlipidemia Code(s): E78.5 - HYPERLIPIDEMIA, UNSPECIFIED Qualifiers: Hyperlipidemia type: pure hypercholesterolemia Qualified Code(s): E78.00 - Pure hypercholesterolemia, unspecified; E78.0 - Pure hypercholesterolemia (8) Sepsis Code(s): A41.9 - SEPSIS, UNSPECIFIED ORGANISM (9) Hypercalcemia Code(s): E83.52 - HYPERCALCEMIA Assessment/Plan This is a 77 year old gentleman with hx of CKD, Afib on A/C, CAD, CKD, Hypertension, Hyperlipidemia, PVD who presented with AMS/Confusion and found to have MELITA. The patient has IgG Myeloma, getting plasmapheresis. Serum Calcium in much better range. Renal functions slowly improving. The patient's mental status remains essentially unchanged, and not easily explained. ? Anoxic encephalopathy Discussed with Dr. Mcginnis. Concur with the current management. Will follow with you. Thank you. Little New MD
--- NOTE | 2018-02-16 12:58 | PN ---
Physical Exam: SUBJECTIVE: Patient seen and examined at bedside. He had sporadic runs of V- Tach overnight again. He remains intubated but not sedated. He is receiving fentanyl for pain control. Patient has no meaningful communication. Patient is receiving plasmapharesis today. Sister Clara Mobley: [phone] - She is in [place] - She says they use to speak on a monthly basis. Last time they spoke was in the summer time. OBJECTIVE: Vital Signs Period Temp Pulse Resp BP Sys/Ariza Pulse Ox Last 24 Hr 98.7 F-100.6 F 82-120 14-26 90-119/56-80 98-100 GENERAL: The patient is awake but not alert or oriented. He does not speak or squeeze my hands. HEAD: Normal with no signs of trauma. EYES: PERRL, sclera anicteric. ENT: Ears normal, nares patent, moist mucous membranes. NECK: Trachea midline. LUNGS: bilateral diffuse rhonchi HEART: tachycardic rate and irregular rhythm. S1, S2 without murmur, rub or gallop. ABDOMEN: Soft, nondistended, normoactive bowel sounds, no masses. EXTREMITIES: 2+ pulses, warm, well-perfused, no edema. NEUROLOGICAL: Cannot assess due to clinical condition. SKIN: Warm, dry, normal turgor. Scattered ulcers on both legs and feet. Laboratory Results - last 24 hr 02/12/18 02/12/18 02/16/18 16:25 21:45 05:30 WBC 5.2 RBC 2.78 L Hgb 8.4 L Hct 25.0 L MCV 89.8 MCH 30.3 MCHC 33.8 RDW 16.1 H Plt Count 127 L MPV 9.4 Absolute Neuts (auto) 3.8 Neutrophils % 72.5 Neutrophils % (Manual) 74.2 Band Neutrophils % 2.1 Lymphocytes % 22.7 Lymphocytes % (Manual) 16.5 D Monocytes % 2.8 L Monocytes % (Manual) 3 L Eosinophils % 1.7 Eosinophils % (Manual) 3.1 Basophils % 0.3 Basophils % (Manual) 0.0 Myelocytes % (Man) 0 Promyelocytes % (Man) 0 Blast Cells % (Manual) 0 Nucleated RBC % 4 H Metamyelocytes 1 Hypochromia 0 Platelet Estimate Normal Polychromasia 1+ Poikilocytosis 0 Anisocytosis 1+ Microcytosis 1+ Macrocytosis 0 PT with INR INR PTT (Actin FS) Fibrinogen Puncture Site ABG pH ABG pCO2 at Pt Temp ABG pO2 at Pt Temp ABG HCO3 ABG O2 Sat (Measured) ABG O2 Content ABG Base Excess Vinny Test O2 Delivery Device Oxygen Flow Rate Vent Rate PEEP Pressure Support Vent Sodium Potassium Chloride Carbon Dioxide Anion Gap BUN Creatinine Creat Clearance w eGFR Random Glucose Lactic Acid Uric Acid Calcium Phosphorus Magnesium Total Bilirubin AST ALT Alkaline Phosphatase Troponin I B-Natriuretic Peptide Total Protein Albumin IgG 6770 H IgA 13 L IgM 6 L Free [place] LC, Quant 3135.8 H Free Lambda LC, Quant 5.7 Free [place]/Lambda Ratio 550.14 H Blood Type Antibody Screen 02/16/18 02/16/18 02/16/18 05:30 05:30 05:30 WBC RBC Hgb Hct MCV MCH MCHC RDW Plt Count MPV Absolute Neuts (auto) Neutrophils % Neutrophils % (Manual) Band Neutrophils % Lymphocytes % Lymphocytes % (Manual) Monocytes % Monocytes % (Manual) Eosinophils % Eosinophils % (Manual) Basophils % Basophils % (Manual) Myelocytes % (Man) Promyelocytes % (Man) Blast Cells % (Manual) Nucleated RBC % Metamyelocytes Hypochromia Platelet Estimate Polychromasia Poikilocytosis Anisocytosis Microcytosis Macrocytosis PT with INR 15.20 H INR 1.28 H PTT (Actin FS) Fibrinogen Puncture Site ABG pH ABG pCO2 at Pt Temp ABG pO2 at Pt Temp ABG HCO3 ABG O2 Sat (Measured) ABG O2 Content ABG Base Excess Vinny Test O2 Delivery Device Oxygen Flow Rate Vent Rate PEEP Pressure Support Vent Sodium 140 Potassium 4.1 Chloride 113 H Carbon Dioxide 22 Anion Gap 5 L BUN 47 H Creatinine 2.1 H Creat Clearance w eGFR 30.62 Random Glucose 123 H Lactic Acid 0.7 Uric Acid 6.4 Calcium 7.2 L Phosphorus 2.1 L Magnesium 2.0 Total Bilirubin 0.3 AST 62 H ALT 45 Alkaline Phosphatase 146 H Troponin I 0.27 H B-Natriuretic Peptide 7658.0 H Total Protein 8.2 Albumin 2.4 L IgG IgA IgM Free [place] LC, Quant Free Lambda LC, Quant Free [place]/Lambda Ratio Blood Type Antibody Screen 02/16/18 02/16/18 02/16/18 05:30 05:30 05:30 WBC RBC Hgb Hct MCV MCH MCHC RDW Plt Count MPV Absolute Neuts (auto) Neutrophils % Neutrophils % (Manual) Band Neutrophils % Lymphocytes % Lymphocytes % (Manual) Monocytes % Monocytes % (Manual) Eosinophils % Eosinophils % (Manual) Basophils % Basophils % (Manual) Myelocytes % (Man) Promyelocytes % (Man) Blast Cells % (Manual) Nucleated RBC % Metamyelocytes Hypochromia Platelet Estimate Polychromasia Poikilocytosis Anisocytosis Microcytosis Macrocytosis PT with INR INR PTT (Actin FS) 62.0 H Fibrinogen 293.0 D Puncture Site ABG pH ABG pCO2 at Pt Temp ABG pO2 at Pt Temp ABG HCO3 ABG O2 Sat (Measured) ABG O2 Content ABG Base Excess Vinny Test O2 Delivery Device Oxygen Flow Rate Vent Rate PEEP Pressure Support Vent Sodium Potassium Chloride Carbon Dioxide Anion Gap BUN Creatinine Creat Clearance w eGFR Random Glucose Lactic Acid Uric Acid Cancelled Calcium Phosphorus Magnesium Total Bilirubin AST ALT Alkaline Phosphatase Troponin I B-Natriuretic Peptide Total Protein Albumin IgG IgA IgM Free [place] LC, Quant Free Lambda LC, Quant Free [place]/Lambda Ratio Blood Type Antibody Screen 02/16/18 02/16/18 06:15 09:11 WBC RBC Hgb Hct MCV MCH MCHC RDW Plt Count MPV Absolute Neuts (auto) Neutrophils % Neutrophils % (Manual) Band Neutrophils % Lymphocytes % Lymphocytes % (Manual) Monocytes % Monocytes % (Manual) Eosinophils % Eosinophils % (Manual) Basophils % Basophils % (Manual) Myelocytes % (Man) Promyelocytes % (Man) Blast Cells % (Manual) Nucleated RBC % Metamyelocytes Hypochromia Platelet Estimate Polychromasia Poikilocytosis Anisocytosis Microcytosis Macrocytosis PT with INR INR PTT (Actin FS) Fibrinogen Puncture Site Right radial ABG pH 7.32 L ABG pCO2 at Pt Temp 37.7 ABG pO2 at Pt Temp 110.0 H ABG HCO3 18.7 L ABG O2 Sat (Measured) 97.8 ABG O2 Content 12.1 L ABG Base Excess -6.3 L Vinny Test Positive O2 Delivery Device Vent Oxygen Flow Rate 30 Vent Rate 12 PEEP 5.0 Pressure Support Vent 500 Sodium Potassium Chloride Carbon Dioxide Anion Gap BUN Creatinine Creat Clearance w eGFR Random Glucose Lactic Acid Uric Acid Calcium Phosphorus Magnesium Total Bilirubin AST ALT Alkaline Phosphatase Troponin I B-Natriuretic Peptide Total Protein Albumin IgG IgA IgM Free [place] LC, Quant Free Lambda LC, Quant Free [place]/Lambda Ratio Blood Type B POSITIVE Antibody Screen Negative Active Medications Generic Name Dose Route Start Last Admin Trade Name Freq PRN Reason Stop Dose Admin Acetaminophen 650 mg 02/08/18 05:44 02/12/18 18:10 Tylenol Suppository - ID 650 mg Q6H PRN Administration FEVER Allopurinol 100 mg 02/16/18 10:00 02/16/18 10:41 Zyloprim - PO 100 mg BID CHELLY Administration Diphenhydramine HCl 25 mg 02/16/18 12:00 Benadryl Injection - IVPB ONCE PRN DURING PLASMAPHERESIS Heparin Sodium (Porcine) 5 ml 02/14/18 15:26 Hep-Lock - IVPUSH PRN PRN Heparin Heparin Sodium (Porcine) 1,000 unit 02/15/18 06:38 Heparin - IVPUSH PRN PRN Heparin Heparin Sodium (Porcine) 5,000 unit 02/15/18 06:38 Heparin - IVPUSH PRN PRN Heparin Vancomycin HCl 1,000 mg in 250 mls @ 166.667 mls/hr 02/07/18 20:00 02/15/18 21:02 Vancomycin (Pre-Docked) IVPB 166.667 mls/hr Q24H CHELLY Administration Protocol Piperacillin Sod/Tazobactam 50 mls @ 100 mls/hr 02/13/18 11:00 02/16/18 09:26 Sod 2.25 gm/ Dextrose IVPB 100 mls/hr Q8H-IV CHELLY Administration Protocol Fentanyl 500 mcg/ Dextrose 100 mls @ 5 mls/hr 02/14/18 11:45 02/15/18 20:57 IVPB Not Given TITR CHELLY Protocol 25 MCG/HR Heparin Sodium/Dextrose 25,000 units in 500 mls @ 20 mls/hr 02/15/18 06:45 06:48 Heparin Infusion - IVPB Not Given TITR [facility]LLY Protocol 1,000 UNITS/HR Lactulose 20 gm 02/16/18 09:38 02/16/18 10:41 Cephulac (Oral Use) PO 20 gm TID CHELLY Administration Metoprolol Tartrate 5 mg 02/14/18 12:00 02/16/18 06:06 Lopressor Injection - IVPUSH Not Given Q8H CHELLY Pantoprazole Sodium 40 mg 02/14/18 12:00 02/16/18 09:26 Protonix Iv IVPUSH 40 mg DAILY [facility] Administration Thiamine HCl 100 mg 02/06/18 22:12 02/16/18 09:26 Vitamin B1 - PO 100 mg DAILY CHELLY Administration ASSESSMENT/PLAN: Assessment: Patient receiving plasmapharesis currently. During sedation vacation today patient's mental status was unimpressive. He was not alert, oriented, or responsive. He experienced multiple runs of V-Tach overnight. Consulted Cards who recommended re-starting patient on PO Lopressor 25 mg BID. Got hold of the patient's Sister Clara Mobley: [phone] to discuss goals of care. Plan: ID: - Rhonchi heard on Lung auscultation - CXR shows pulmonary infiltrate, possible PNA vs empyema vs paramnemonic effusion - Abx coverage with zosyn and Vanc - ID on board Cardio: - Sporadically goes in and out of V-Tach - Will let Cards know. - Cards recommends restarting Lopressor 25 mg BID PO - Afib w RVR: Patient is receiving metoprolol 5 mg PRN - diastolic dysfunction + hypertrophic cardiomyopathy - CAD with multiple stents - Cardio consulted and on board. Pulm: - Intubated - No pneumothorax - increasing Peep to 5 - b/l diffuse rhonchi - infiltrate on CXR: Abx- Zosyn and Vanc - No lasix today Renal: - Acute on Chronic kidney injury - BUN: 47 Cr:2.1. possibly Pre-renal etiology. Unchanged much since yesterday. - Renal consulted and on board. - Patient receiving plasmapharesis today. Neuro: - Patient is not alert or oriented. He responds to painful stimuli. - Head CT showed no acute pathology Heme/Onc: - Patient receiving plasmapharesis today. - Patient has hypercalcemia - Paraproteinemia - Probable Multiple Myeloma, SPEP and UPEP suggestive. - Patient fulfills new criteria for multiple myeloma with free kappa/ free lambda light chain ratio of 432 (>100 is diagnostic of myeloma) - [place]/Lambda ratio > 100 consistent with Multiple myeloma - M spike elevated elevated at 6.8 previously 4.7 Endo: - Hypercalcemia - Glucose wnl - Parathyroid hormone WNL - PTH-borderline low appropriate given hypercalcemia, PTHrP low F/E/N: F: No standing fluids due to fluid overload in lungs E: Will replete lytes PRN N: tube feeds. Code Status: Full Code Dispo: Patient will continue to receive ICU level care Visit type - Emergency Visit Emergency Visit: Yes ED Registration Date: 02/06/18 Care time: The patient presented to the Emergency Department on the above date and was hospitalized for further evaluation of their emergent condition. - New Patient This patient is new to me today: No - Critical Care Critical Care patient: Yes Total Critical Care Time (in minutes): 36 Critical Care Statement: The care of this patient involved high complexity decision making to prevent further life threatening deterioration of the patient 's condition and/or to evaluate & treat vital organ system(s) failure or risk of failure.
[2018-02-16] MEDS: METOPROLOL TARTRATE 25 MG TABLET (FP) PO SCH ×2 (13:37→22:00)
[2018-02-16] MEDS ORDERED: PT OWN MED DRAWER 7, Y5N ONE (13:39)
[2018-02-16] MEDS ORDERED: fentaNYL CITRATE 250 MCG/5 ML VIAL ONE (13:47)
[2018-02-16] MEDS: FENTANYL INJECTION 500 MCG in DEXTROSE 5%-WATER - 90 ML IVPB SCH (14:04)
--- NOTE | 2018-02-16 14:52 | PN ---
Progress Note, Physician History of Present Illness: Poorly responsive off sedation on vent, underwent apheresis for possible hyperviscosity syndrome, rapid afib resumed on lopressor and heparin gtt. - Current Medication List Current Medications: Active Medications Acetaminophen (Tylenol Suppository -) 650 mg DE Q6H PRN PRN Reason: FEVER Last Admin: 02/12/18 18:10 Dose: 650 mg Allopurinol (Zyloprim -) 100 mg PO BID CHELLY Last Admin: 02/16/18 10:41 Dose: 100 mg Diphenhydramine HCl (Benadryl Injection -) 25 mg IVPB ONCE PRN PRN Reason: DURING PLASMAPHERESIS Heparin Sodium (Porcine) (Hep-Lock -) 5 ml IVPUSH PRN PRN PRN Reason: Heparin Heparin Sodium (Porcine) (Heparin -) 1,000 unit IVPUSH PRN PRN PRN Reason: Heparin Heparin Sodium (Porcine) (Heparin -) 5,000 unit IVPUSH PRN PRN PRN Reason: Heparin Vancomycin HCl (Vancomycin (Pre-Docked)) 1,000 mg in 250 mls @ 166.667 mls/hr IVPB Q24H CHELLY; Protocol Last Admin: 02/15/18 21:02 Dose: 166.667 mls/hr Piperacillin Sod/Tazobactam (Sod 2.25 gm/ Dextrose) 50 mls @ 100 mls/hr IVPB Q8H-IV CHELLY; Protocol Last Admin: 02/16/18 09:26 Dose: 100 mls/hr Fentanyl 500 mcg/ Dextrose 100 mls @ 5 mls/hr IVPB TITR CHELLY; Protocol Last Admin: 02/16/18 14:04 Dose: 50 mcg/hr, 10 mls/hr Heparin Sodium/Dextrose (Heparin Infusion -) 25,000 units in 500 mls @ 20 mls/ hr IVPB TITR CHELLY; Protocol Last Admin: 02/16/18 06:48 Dose: Not Given Lactulose (Cephulac (Oral Use)) 20 gm PO TID CHELLY Last Admin: 02/16/18 13:37 Dose: 20 gm Metoprolol Tartrate (Lopressor -) 25 mg PO BID CHELLY Last Admin: 02/16/18 13:37 Dose: 25 mg Metoprolol Tartrate (Lopressor Injection -) 5 mg IVPUSH Q8H PRN PRN Reason: TACHYCARDIA Pantoprazole Sodium (Protonix Iv) 40 mg IVPUSH DAILY [facility] Last Admin: 02/16/18 09:26 Dose: 40 mg Thiamine HCl (Vitamin B1 -) 100 mg PO DAILY [facility] Last Admin: 02/16/18 09:26 Dose: 100 mg - Objective Vital Signs: Vital Signs Temperature 99.2 F 02/16/18 14:00 Pulse Rate 108 H 02/16/18 14:00 Respiratory Rate 18 02/16/18 14:00 Blood Pressure 119/82 02/16/18 14:00 O2 Sat by Pulse Oximetry (%) 98 02/16/18 08:54 Cardiovascular: Yes: Tachycardia, Pulse Irregular, Murmur (2/6 SM) Respiratory: Yes: Intubated, Mechanically Ventilated, Rhonchi Gastrointestinal: Yes: Normal Bowel Sounds, Soft Edema: No Labs: CBC, BMP 02/16/18 05:30 02/16/18 05:30 INR, PTT INR 1.28 (0.83-1.09) H 02/16/18 05:30 Fibrinogen 293.0 mg/dL (238-498) D 02/16/18 05:30 - ....Imaging Chest X-ray: Report Reviewed (Left base infiltrate) EKG: Report Reviewed (Tele: Rate-controlled afib) Problem List - Problems (1) Atrial fibrillation with RVR Code(s): I48.91 - UNSPECIFIED ATRIAL FIBRILLATION (2) [id number] kidney injury Code(s): N17.9 - ACUTE KIDNEY FAILURE, UNSPECIFIED; N18.9 - CHRONIC KIDNEY DISEASE, UNSPECIFIED Qualifiers: Acute renal failure type: unspecified Chronic kidney disease stage: unspecified stage Qualified Code(s): N17.9 - Acute kidney failure, unspecified ; N18.9 - Chronic kidney disease, unspecified (3) Demand ischemia Code(s): I24.8 - OTHER FORMS OF ACUTE ISCHEMIC HEART DISEASE (4) Hypercalcemia Code(s): E83.52 - HYPERCALCEMIA (5) Nonadherence to medication Code(s): Z91.14 - PATIENT'S OTHER NONCOMPLIANCE WITH MEDICATION REGIMEN (6) Paraproteinemia Code(s): D89.2 - HYPERGAMMAGLOBULINEMIA, UNSPECIFIED (7) Anticoagulant long-term use Code(s): Z79.01 - [employer] (CURRENT) USE OF ANTICOAGULANTS (8) Chronic thromboembolic disease Code(s): I74.9 - EMBOLISM AND THROMBOSIS OF UNSPECIFIED ARTERY (9) Coronary artery disease Code(s): I25.10 - ATHSCL HEART DISEASE OF [place] CORONARY ARTERY W/O ANG PCTRS Qualifiers: Coronary Disease-Associated Artery/Lesion type: [place] artery [place] vs. transplanted heart: [place] heart Associated angina: without angina Qualified Code(s): I25.10 - Atherosclerotic heart disease of [place] coronary artery without angina pectoris (10) Diastolic dysfunction without heart failure Code(s): I51.9 - HEART DISEASE, UNSPECIFIED (11) HTN (hypertension) Code(s): I10 - ESSENTIAL (PRIMARY) HYPERTENSION Qualifiers: Hypertension type: essential hypertension Qualified Code(s): I10 - Essential (primary) hypertension (12) Hypertrophic cardiomyopathy Code(s): I42.2 - OTHER HYPERTROPHIC CARDIOMYOPATHY (13) Hyperlipidemia Code(s): E78.5 - HYPERLIPIDEMIA, UNSPECIFIED Qualifiers: Hyperlipidemia type: pure hypercholesterolemia Qualified Code(s): E78.00 - Pure hypercholesterolemia, unspecified; E78.0 - Pure hypercholesterolemia (14) Multiple myeloma Code(s): C90.00 - MULTIPLE MYELOMA NOT HAVING ACHIEVED REMISSION Qualifiers: Multiple myeloma remission status: not in remission Qualified Code(s): C90.00 - Multiple myeloma not having achieved remission Assessment/Plan R&LHc at [facility] 04/20/2016 showing nonobstructive CAD, severe LV apical hypertrophic cardiomyopathy, mildly elevated right sided pressures, Mynx deployed right [employer]CH access site. 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 Echocardiogram: 10/18/2017 Mod cLVH, severe PURVI, mod TR RVSP 50-60 mmHg, mod- severe MR Echocardiogram: 01/23/2018 Normal LV size with hyperdynamic LVEF 75%, mild BSH, normal RV size and fxn, severe LAE, mod-severe MR, mod TR 1. Acute hypoxic respiratory failure, susoected asoiration pneumonia other differential diagnosis includes possible PTE 2. Toxic metabolic encephelopathy, possible hyperviscosity syndrome, sepsis 2. Acute on CKD (suspect myeloma kidney) 3. Hypercalcemia, paraproteinemia-> confirmed multiple myeloma, hyperviscosity syndrome 4. History of bilateral SFA occlusion post thrombectomy, referable to embolic disease related to persistent atrial fibrillation with [id number] score of 6, history of poor compliance with anticoagulation and medical F/U 5. Non obstructive CAD on R&LHc coronary angiography with demand ischemia 6. LV diastolic dysfunction related to apical hypertrophic cardiomyopathy, subendocardial ischemia, compensated/euvolemic 7. Persistent atrial fibrillation with RVR [id number] score of 6 on heparin gtt 8. Labile HTN 9. Poor compliance with medical therapy administration and medical F/U 10. Tobacco abuse 11. ETOH dependence PLAN: 1. Heparin gtt for now while off Xarelto 15 qd (renal dosing) 2. Resume Lopressor 25 bid as hemodynamics tolerate 3. Plasmapharesis per hematology input 4. s/p Zometa, monitor calcium level, ruled out obstructive uropathy 5. Empiric abx course pending C&S 6. Enteral feeds, lactulose for hyperammonemia, monitor ammonia levels 7. Ventilator management
[2018-02-16] MEDS: VANCOMYCIN 1 GRAM (PRE-DOCKED) 1,000 MG/250 ML BAG IVPB SCH (22:00)
[2018-02-17 00:08] LABS: TOTAL PROTEIN, URINE 39.3 mg/dL (Not Estab.)
[2018-02-17] MEDS ORDERED: fentaNYL CITRATE 250 MCG/5 ML VIAL ONE ×2 (00:47→20:45)
[2018-02-17] MEDS ORDERED: DEXTROSE 5%-WATER - 50 ML IVPB ONE ×3 (02:50→17:44)
[2018-02-17] MEDS ORDERED: PIPERACILLIN/TAZOBACTAM 2.25 GM VIAL IVPB ONE ×3 (02:50→17:44)
[2018-02-17] MEDS: PIPERACILLIN/TAZOB 2.25 GM 2.25 GM in DEXTROSE 5%-WATER - 50 ML IVPB SCH ×3 (02:52→18:09)
[2018-02-17] MEDS: HEPARIN INFUSION - 25,000 UNITS/500 ML INFUS.BAG IVPB SCH (04:07)
[2018-02-17] MEDS: LACTULOSE 20 GM/30 ML UDC (FOR ORAL USE ONLY) PO SCH ×3 (05:27→22:31)
[2018-02-17 06:16] LABS: BASO % 0.4 % (0-2.0); EOS % 1.9 % (0-4.5); HEMATOCRIT 24.3 % (35.4-49); HEMOGLOBIN 7.9 GM/dL (11.7-16.9); LYMPH % 17.5 % (8-40); MCH 29.4 pg (25.7-33.7); MCHC 32.7 g/dl (32.0-35.9); MEAN CELL VOLUME 89.9 fl (80-96); MEAN PLT VOLUME 9.5 fl (7.5-11.1); MONO % 2.9 % (3.8-10.2); NEUT % 77.3 % (42.8-82.8); PLATELET COUNT 118 K/MM3 (134-434); RDW 16.3 % (11.9-15.9)
[2018-02-17 06:33] LABS: ARTERIAL BLD GAS O2 SATURATION 94.1 % (90-98.9); ARTERIAL BLOOD GAS BASE EXCESS -7.8 meq/l (-2-2); ARTERIAL BLOOD GAS PCO2 39.2 mmHg (35-45); ARTERIAL BLOOD GAS PO2 75.3 mmHg (70-100); ARTERIAL BLOOD GAS pH 7.28 (7.35-7.45)
[2018-02-17 06:47] LABS: ALK PHOS 116 U/L (45-117); ANION GAP 6 MMOL/L (8-16); BILIRUBIN,TOTAL 0.2 mg/dL (0.2-1); BLOOD UREA NITROGEN 43 mg/dL (7-18); CHLORIDE 115 mmol/L (98-107); CO2 19 mmol/L (21-32); CREATININE 2.1 mg/dL (0.55-1.3); GLUCOSE,RANDOM 112 mg/dL (74-106); PHOSPHOROUS 2.7 mg/dL (2.5-4.9); POTASSIUM 4.2 mmol/L (3.5-5.1); SGOT/AST 51 U/L (15-37); SGPT/ALT 37 U/L (13-61); SODIUM 140 mmol/L (136-145); TOT PROT 7.2 g/dl (6.4-8.2)
[2018-02-17 06:55] LABS: CALCIUM 6.6 mg/dL (8.5-10.1)
[2018-02-17 07:09] LABS: ALLENS TEST POSITIVE
[2018-02-17] MEDS ORDERED: CALCIUM GLUCONATE 10% - 1,000 MG/10 ML VIAL IVPB ONE (07:32)
[2018-02-17 08:04] LABS: ACANTHOCYTES 1+; ANISOCYTOSIS 2+; PLATELET ESTIMATE SLT DECREASE
--- NOTE | 2018-02-17 08:16 | PN ---
Progress Note, Physician Chief Complaint: INTUBATED STILL IN ICU NO NEW EVENTS OVERNIGHT - Current Medication List Current Medications: Active Medications Acetaminophen (Tylenol Suppository -) 650 mg [place] Q6H PRN PRN Reason: FEVER Last Admin: 02/12/18 18:10 Dose: 650 mg Allopurinol (Zyloprim -) 100 mg PO BID [facility] Last Admin: 02/16/18 22:00 Dose: 100 mg Diphenhydramine HCl (Benadryl Injection -) 25 mg IVPB ONCE PRN PRN Reason: DURING PLASMAPHERESIS Heparin Sodium (Porcine) (Hep-Lock -) 5 ml IVPUSH PRN PRN PRN Reason: Heparin Heparin Sodium (Porcine) (Heparin -) 1,000 unit IVPUSH PRN PRN PRN Reason: Heparin Heparin Sodium (Porcine) (Heparin -) 5,000 unit IVPUSH PRN PRN PRN Reason: Heparin Vancomycin HCl (Vancomycin (Pre-Docked)) 1,000 mg in 250 mls @ 166.667 mls/hr IVPB Q24H [facility]LLY; Protocol Last Admin: 02/16/18 22:00 Dose: 166.667 mls/hr Piperacillin Sod/Tazobactam (Sod 2.25 gm/ Dextrose) 50 mls @ 100 mls/hr IVPB Q8H-IV CHELLY; Protocol Last Admin: 02/17/18 02:52 Dose: 100 mls/hr Fentanyl 500 mcg/ Dextrose 100 mls @ 5 mls/hr IVPB TITR CHELLY; Protocol Last Admin: 02/16/18 14:04 Dose: 50 mcg/hr, 10 mls/hr Heparin Sodium/Dextrose (Heparin Infusion -) 25,000 units in 500 mls @ 20 mls/ hr IVPB TITR CHELLY; Protocol Last Admin: 02/17/18 04:07 Dose: 650 units/hr, 13 mls/hr Lactulose (Cephulac (Oral Use)) 20 gm PO TID CHELLY Last Admin: 02/17/18 05:27 Dose: 20 gm Metoprolol Tartrate (Lopressor -) 25 mg PO BID [facility] Last Admin: 02/16/18 22:00 Dose: 25 mg Metoprolol Tartrate (Lopressor Injection -) 5 mg IVPUSH Q8H PRN PRN Reason: TACHYCARDIA Pantoprazole Sodium (Protonix Iv) 40 mg IVPUSH DAILY [facility] Last Admin: 02/16/18 09:26 Dose: 40 mg Thiamine HCl (Vitamin B1 -) 100 mg PO DAILY [facility] Last Admin: 02/16/18 09:26 Dose: 100 mg - Objective Vital Signs: Vital Signs Temperature 99.9 F H 02/17/18 06:00 Pulse Rate 92 H 02/17/18 08:00 Respiratory Rate 16 02/17/18 08:00 Blood Pressure 98/60 02/17/18 08:00 O2 Sat by Pulse Oximetry (%) 98 02/16/18 20:48 Eyes: Yes: Other HENT: Yes: WNL Neck: Yes: WNL Cardiovascular: Yes: Pulse Irregular Respiratory: Yes: Diminished, Mechanically Ventilated Gastrointestinal: Yes: Normal Bowel Sounds, Soft Genitourinary: Yes: [place] Present Musculoskeletal: Yes: Muscle Weakness Extremities: Yes: Other Edema: Yes Integumentary: Yes: WNL Wound/Incision: Yes: Dressing Dry and Intact Neurological: Yes: Confusion, Pre-Existing Deficit ...Motor Strength: LLE, RLE Psychiatric: Yes: Other Labs: CBC, BMP 02/17/18 05:30 02/17/18 05:30 INR, PTT INR 1.28 (0.83-1.09) H 02/16/18 05:30 Fibrinogen 293.0 mg/dL (238-498) D 02/16/18 05:30 Problem List - Problems (1) MELITA (acute kidney injury) Code(s): N17.9 - ACUTE KIDNEY FAILURE, UNSPECIFIED (2) Atrial fibrillation with RVR Code(s): I48.91 - UNSPECIFIED ATRIAL FIBRILLATION (3) Hyperlipidemia Code(s): E78.5 - HYPERLIPIDEMIA, UNSPECIFIED Qualifiers: Hyperlipidemia type: pure hypercholesterolemia Qualified Code(s): E78.00 - Pure hypercholesterolemia, unspecified; E78.0 - Pure hypercholesterolemia (4) Hypothermia Code(s): T68.XXXA - HYPOTHERMIA, INITIAL ENCOUNTER Qualifiers: Encounter type: initial encounter Qualified Code(s): T68.XXXA - Hypothermia , initial encounter (5) [id number] kidney injury Code(s): N17.9 - ACUTE KIDNEY FAILURE, UNSPECIFIED; N18.9 - CHRONIC KIDNEY DISEASE, UNSPECIFIED Qualifiers: Acute renal failure type: unspecified Chronic kidney disease stage: unspecified stage Qualified Code(s): N17.9 - Acute kidney failure, unspecified ; N18.9 - Chronic kidney disease, unspecified (6) Generalized weakness Code(s): R53.1 - WEAKNESS (7) History of ETOH abuse Code(s): Z87.898 - PERSONAL HISTORY OF OTHER SPECIFIED CONDITIONS (8) Hypercalcemia Code(s): E83.52 - HYPERCALCEMIA (9) Hypertrophic cardiomyopathy Code(s): I42.2 - OTHER HYPERTROPHIC CARDIOMYOPATHY (10) Toxic metabolic encephalopathy Code(s): G92 - TOXIC ENCEPHALOPATHY (11) Sepsis Code(s): A41.9 - SEPSIS, UNSPECIFIED ORGANISM (12) Respiratory failure Code(s): J96.90 - RESPIRATORY FAILURE, UNSP, UNSP W HYPOXIA OR HYPERCAPNIA Assessment/Plan INTUBATED AND SEDATED WEAN OFF TOLERATED TOXIC METABOLIC ENCEPHALOPATHY NEURO AND CARDIO EVAL HEPARIN IV FOR AC AFIB SWALLOW EVAL WITH DYSPHAGIA PRECAUTIONS MONITOR RENAL FUNCTION STILL WEAK/AT FALL RISKS NEURO CHECKS PT/SNF WHEN EATING AND MORE MEDICALLY STABLE FREQUENT TURNING
[2018-02-17] MEDS: METOPROLOL TARTRATE 25 MG TABLET (FP) PO SCH ×2 (09:09→22:31)
[2018-02-17] MEDS: THIAMINE HCL 100 MG TABLET (FP) PO SCH (09:09)
[2018-02-17] MEDS: ALLOPURINOL 100 MG TABLET (FP) PO SCH ×2 (09:09→22:32)
[2018-02-17] MEDS: PANTOPRAZOLE SODIUM 40 MG VIAL IVPUSH SCH (09:09)
--- NOTE | 2018-02-17 09:40 | PN ---
Progress Note, Physician Chief Complaint: Events noted Remains on mechanical ventilation History of Present Illness: Patient was seen and examined in ICU. Remains on vent support. Chart was reviewed - Current Medication List Current Medications: Active Medications Acetaminophen (Tylenol Suppository -) 650 mg [place] Q6H PRN PRN Reason: FEVER Last Admin: 02/12/18 18:10 Dose: 650 mg Allopurinol (Zyloprim -) 100 mg PO BID CHELLY Last Admin: 02/17/18 09:09 Dose: 100 mg Diphenhydramine HCl (Benadryl Injection -) 25 mg IVPB ONCE PRN PRN Reason: DURING PLASMAPHERESIS Heparin Sodium (Porcine) (Hep-Lock -) 5 ml IVPUSH PRN PRN PRN Reason: Heparin Heparin Sodium (Porcine) (Heparin -) 1,000 unit IVPUSH PRN PRN PRN Reason: Heparin Heparin Sodium (Porcine) (Heparin -) 5,000 unit IVPUSH PRN PRN PRN Reason: Heparin Vancomycin HCl (Vancomycin (Pre-Docked)) 1,000 mg in 250 mls @ 166.667 mls/hr IVPB Q24H [facility]; Protocol Last Admin: 02/16/18 22:00 Dose: 166.667 mls/hr Piperacillin Sod/Tazobactam (Sod 2.25 gm/ Dextrose) 50 mls @ 100 mls/hr IVPB Q8H-IV CHELLY; Protocol Last Admin: 02/17/18 09:09 Dose: 100 mls/hr Fentanyl 500 mcg/ Dextrose 100 mls @ 5 mls/hr IVPB TITR CHE[facility]; Protocol Last Admin: 02/16/18 14:04 Dose: 50 mcg/hr, 10 mls/hr Heparin Sodium/Dextrose (Heparin Infusion -) 25,000 units in 500 mls @ 20 mls/ hr IVPB TITR CHE[facility]; Protocol Last Admin: 02/17/18 04:07 Dose: 650 units/hr, 13 mls/hr Lactulose (Cephulac (Oral Use)) 20 gm PO TID [facility] Last Admin: 02/17/18 05:27 Dose: 20 gm Metoprolol Tartrate (Lopressor -) 25 mg PO BID [facility] Last Admin: 02/17/18 09:09 Dose: 25 mg Metoprolol Tartrate (Lopressor Injection -) 5 mg IVPUSH Q8H PRN PRN Reason: TACHYCARDIA Pantoprazole Sodium (Protonix Iv) 40 mg IVPUSH DAILY [facility] Last Admin: 02/17/18 09:09 Dose: 40 mg Thiamine HCl (Vitamin B1 -) 100 mg PO DAILY [facility] Last Admin: 02/17/18 09:09 Dose: 100 mg - Objective Vital Signs: Vital Signs Temperature 99.9 F H 02/17/18 06:00 Pulse Rate 92 H 02/17/18 08:00 Respiratory Rate 16 02/17/18 08:00 Blood Pressure 98/60 02/17/18 08:00 O2 Sat by Pulse Oximetry (%) 98 02/16/18 20:48 Cardiovascular: Yes: Pulse Irregular, S1, S2 Respiratory: Yes: Mechanically Ventilated Gastrointestinal: Yes: Normal Bowel Sounds, Soft. No: Tenderness Edema: No Labs: CBC, BMP 02/17/18 05:30 02/17/18 05:30 INR, PTT INR 1.28 (0.83-1.09) H 02/16/18 05:30 Fibrinogen 293.0 mg/dL (238-498) D 02/16/18 05:30 - ....Imaging Chest X-ray: Report Reviewed (ET tube in place and congestive changes) Problem List - Problems (1) Anemia Code(s): D64.9 - ANEMIA, UNSPECIFIED (2) Hyperlipidemia Code(s): E78.5 - HYPERLIPIDEMIA, UNSPECIFIED Qualifiers: Hyperlipidemia type: pure hypercholesterolemia Qualified Code(s): E78.00 - Pure hypercholesterolemia, unspecified; E78.0 - Pure hypercholesterolemia (3) Multiple myeloma Code(s): C90.00 - MULTIPLE MYELOMA NOT HAVING ACHIEVED REMISSION Qualifiers: Multiple myeloma remission status: not in remission Qualified Code(s): C90.00 - Multiple myeloma not having achieved remission (4) Respiratory failure Code(s): J96.90 - RESPIRATORY FAILURE, UNSP, UNSP W HYPOXIA OR HYPERCAPNIA (5) Sepsis Code(s): A41.9 - SEPSIS, UNSPECIFIED ORGANISM (6) Toxic metabolic encephalopathy Code(s): G92 - TOXIC ENCEPHALOPATHY (7) Tjwkj-wf-slnejmt kidney injury Code(s): N17.9 - ACUTE KIDNEY FAILURE, UNSPECIFIED; N18.9 - CHRONIC KIDNEY DISEASE, UNSPECIFIED Qualifiers: Acute renal failure type: unspecified Chronic kidney disease stage: unspecified stage Qualified Code(s): N17.9 - Acute kidney failure, unspecified ; N18.9 - Chronic kidney disease, unspecified (8) Demand ischemia Code(s): I24.8 - OTHER FORMS OF ACUTE ISCHEMIC HEART DISEASE (9) History of ETOH abuse Code(s): Z87.898 - PERSONAL HISTORY OF OTHER SPECIFIED CONDITIONS (10) Nonadherence to medication Code(s): Z91.14 - PATIENT'S OTHER NONCOMPLIANCE WITH MEDICATION REGIMEN (11) Paraproteinemia Code(s): D89.2 - HYPERGAMMAGLOBULINEMIA, UNSPECIFIED (12) Persistent atrial fibrillation Code(s): I48.1 - PERSISTENT ATRIAL FIBRILLATION (13) Chronic thromboembolic disease Code(s): I74.9 - EMBOLISM AND THROMBOSIS OF UNSPECIFIED ARTERY (14) Coronary artery disease Code(s): I25.10 - ATHSCL HEART DISEASE OF [place] CORONARY ARTERY W/O ANG PCTRS Qualifiers: Coronary Disease-Associated Artery/Lesion type: [place] artery [place] vs. transplanted heart: [place] heart Associated angina: without angina Qualified Code(s): I25.10 - Atherosclerotic heart disease of [place] coronary artery without angina pectoris (15) Diastolic dysfunction without heart failure Code(s): I51.9 - HEART DISEASE, UNSPECIFIED (16) HTN (hypertension) Code(s): I10 - ESSENTIAL (PRIMARY) HYPERTENSION Qualifiers: Hypertension type: essential hypertension Qualified Code(s): I10 - Essential (primary) hypertension (17) Hypertrophic cardiomyopathy Code(s): I42.2 - OTHER HYPERTROPHIC CARDIOMYOPATHY (18) Left ventricular systolic dysfunction Code(s): I51.9 - HEART DISEASE, UNSPECIFIED Assessment/Plan 1. Acute hypoxic respiratory failure, suspect aspiration pneumonia 2. Toxic metabolic encephalopathy, possible hyperviscosity syndrome and sepsis 2. Acute on CKD 3. Hypercalcemia, paraproteinemia confirmed multiple myeloma, hyperviscosity syndrome 4. History of bilateral SFA occlusion post thrombectomy, referable to embolic disease related to persistent atrial fibrillation 5. Non obstructive CAD on R&L heart cath/coronary angiography with demand ischemia 6. LV diastolic dysfunction related to apical hypertrophic cardiomyopathy, subendocardial ischemia, compensated/euvolemic 7. Persistent atrial fibrillation with RVR [id number] score of 6 on heparin gtt 8. Labile HTN 9. Poor compliance with medical therapy administration and medical F/U 10. ETOH dependence PLAN: 1. Heparin drip for now while off Xarelto 15 qd (renal dosing) 2. Resume Lopressor 25 bid as hemodynamics tolerate 3. Plasmapharesis per hematology input 4. Empiric antibiotic course 5. Enteral feeds, lactulose for hyperammonemia and monitor ammonia levels 6. Ventilator management as per Critical Care team Guarded Eliel Sam MD
--- NOTE | 2018-02-17 10:11 | PN ---
Teaching Attending Note Name of Resident: Sebastián Oneil ATTENDING PHYSICIAN STATEMENT I saw and evaluated the patient. I reviewed the resident's note and discussed the case with the resident. I agree with the resident's findings and plan as documented. SUBJECTIVE: Patient seen and examined in the ICU. Remains intubated. Off sedation and very poor mental status. Intermittently grimacing to pain. No pressors. CXR: no gross change in LLL infiltrate and effusion Intake & Output 02/14/18 02/15/18 02/16/18 02/17/18 23:59 23:59 23:59 23:59 Intake Total 2087 1792 2958 561 Output Total 1650 1800 1450 750 Balance 437 -8 1508 -189 Weight 179 lb 7 oz 178 lb 4 oz 177 lb 1 oz 180 lb 1 oz Last Vital Signs Temp Pulse Resp BP Pulse Ox 98.1 F 83 14 96/60 98 02/17/18 10:00 02/17/18 10:00 02/17/18 10:00 02/17/18 10:00 02/16/18 20:48 Active Medications Acetaminophen (Tylenol Suppository -) 650 mg OH Q6H PRN PRN Reason: FEVER Last Admin: 02/12/18 18:10 Dose: 650 mg Allopurinol (Zyloprim -) 100 mg PO BID CHELLY Last Admin: 02/17/18 09:09 Dose: 100 mg Diphenhydramine HCl (Benadryl Injection -) 25 mg IVPB ONCE PRN PRN Reason: DURING PLASMAPHERESIS Heparin Sodium (Porcine) (Hep-Lock -) 5 ml IVPUSH PRN PRN PRN Reason: Heparin Heparin Sodium (Porcine) (Heparin -) 1,000 unit IVPUSH PRN PRN PRN Reason: Heparin Heparin Sodium (Porcine) (Heparin -) 5,000 unit IVPUSH PRN PRN PRN Reason: Heparin Vancomycin HCl (Vancomycin (Pre-Docked)) 1,000 mg in 250 mls @ 166.667 mls/hr IVPB Q24H [facility]; Protocol Last Admin: 02/16/18 22:00 Dose: 166.667 mls/hr Piperacillin Sod/Tazobactam (Sod 2.25 gm/ Dextrose) 50 mls @ 100 mls/hr IVPB Q8H-IV [facility]; Protocol Last Admin: 02/17/18 09:09 Dose: 100 mls/hr Fentanyl 500 mcg/ Dextrose 100 mls @ 5 mls/hr IVPB TITR CHELLY; Protocol Last Admin: 02/16/18 14:04 Dose: 50 mcg/hr, 10 mls/hr Heparin Sodium/Dextrose (Heparin Infusion -) 25,000 units in 500 mls @ 20 mls/ hr IVPB TITR CHELLY; Protocol Last Admin: 02/17/18 04:07 Dose: 650 units/hr, 13 mls/hr Lactulose (Cephulac (Oral Use)) 20 gm PO TID [facility] Last Admin: 02/17/18 05:27 Dose: 20 gm Metoprolol Tartrate (Lopressor -) 25 mg PO BID [facility] Last Admin: 02/17/18 09:09 Dose: 25 mg Metoprolol Tartrate (Lopressor Injection -) 5 mg IVPUSH Q8H PRN PRN Reason: TACHYCARDIA Pantoprazole Sodium (Protonix Iv) 40 mg IVPUSH DAILY [facility] Last Admin: 02/17/18 09:09 Dose: 40 mg Thiamine HCl (Vitamin B1 -) 100 mg PO DAILY [facility] Last Admin: 02/17/18 09:09 Dose: 100 mg Constitutional: Yes: Intubated, not sedated, minimally responsive Cardiovascular: Yes: Pulse Irregular, AFib Respiratory: Yes: Intubated and sedated, basilar rhonhci Left > Right Gastrointestinal: Yes: Normal Bowel Sounds, Soft Musculoskeletal: Yes: WNL Extremities: Yes: WNL Edema: No Peripheral Pulses WNL: Yes Neurological: Yes: Minimally responsive Labs: Laboratory Results - last 24 hr 02/12/18 02/16/18 02/16/18 10:32 05:30 09:11 WBC RBC Hgb Hct MCV MCH MCHC RDW Plt Count MPV Absolute Neuts (auto) Total Counted Neutrophils % Neutrophils % (Manual) 74.2 Band Neutrophils % 2.1 Lymphocytes % Lymphocytes % (Manual) 16.5 D Monocytes % Monocytes % (Manual) 3 L Eosinophils % Eosinophils % (Manual) 3.1 Basophils % Basophils % (Manual) 0.0 Myelocytes % (Man) 0 Promyelocytes % (Man) 0 Blast Cells % (Manual) 0 Nucleated RBC % Metamyelocytes 1 Hypochromia 0 Platelet Estimate Normal Platelet Comment Polychromasia 1+ Poikilocytosis 0 Anisocytosis 1+ Microcytosis 1+ Macrocytosis 0 Acanthocytes (Spur) Fragmented RBCs PTT (Actin FS) Puncture Site ABG pH ABG pCO2 at Pt Temp ABG pO2 at Pt Temp ABG HCO3 ABG O2 Sat (Measured) ABG O2 Content ABG Base Excess Vinny Test O2 Delivery Device Oxygen Flow Rate Vent Rate Mechanical Rate PEEP Pressure Support Vent Sodium Potassium Chloride Carbon Dioxide Anion Gap BUN Creatinine Creat Clearance w eGFR Random Glucose Uric Acid Calcium Phosphorus Magnesium Total Bilirubin AST ALT Alkaline Phosphatase Total Protein Albumin Oefqb-4-Txzgvgwbs (%) 1.5 Igfqk-3-Slgvobzba (%) 5.5 Beta Globulins (%) 11.4 Gamma Globulins (%) 64.9 M-Olegario % Comment: Urine Total Protein 39.3 Urine PEP Interpret 16.7 Ref Test Comments Blood Type B POSITIVE Antibody Screen Negative 02/17/18 02/17/18 02/17/18 05:30 05:30 05:30 WBC 5.0 RBC 2.70 L Hgb 7.9 L Hct 24.3 L MCV 89.9 MCH 29.4 MCHC 32.7 RDW 16.3 H Plt Count 118 L MPV 9.5 Absolute Neuts (auto) 3.9 Total Counted 100 Neutrophils % 77.3 Neutrophils % (Manual) 70.0 Band Neutrophils % 6.0 Lymphocytes % 17.5 D Lymphocytes % (Manual) 20.0 D Monocytes % 2.9 L Monocytes % (Manual) Eosinophils % 1.9 Eosinophils % (Manual) Basophils % 0.4 Basophils % (Manual) Myelocytes % (Man) Promyelocytes % (Man) Blast Cells % (Manual) Nucleated RBC % 7 H Metamyelocytes 1 Hypochromia 1+ Platelet Estimate Slt decrease Platelet Comment No clotting detected Polychromasia 2+ Poikilocytosis Anisocytosis 2+ Microcytosis Macrocytosis Acanthocytes (Spur) 1+ Fragmented RBCs Occasional PTT (Actin FS) 81.9 H Puncture Site ABG pH ABG pCO2 at Pt Temp ABG pO2 at Pt Temp ABG HCO3 ABG O2 Sat (Measured) ABG O2 Content ABG Base Excess Vinny Test O2 Delivery Device Oxygen Flow Rate Vent Rate Mechanical Rate PEEP Pressure Support Vent Sodium 140 Potassium 4.2 Chloride 115 H Carbon Dioxide 19 L Anion Gap 6 L BUN 43 H Creatinine 2.1 H Creat Clearance w eGFR 30.62 Random Glucose 112 H Uric Acid 6.0 Calcium 6.6 L* Phosphorus 2.7 Magnesium 2.0 Total Bilirubin 0.2 AST 51 H ALT 37 Alkaline Phosphatase 116 Total Protein 7.2 Albumin 3.0 L Ficjk-8-Hsmrktjtf (%) Wewqh-4-Fxfylmzkz (%) Beta Globulins (%) Gamma Globulins (%) M-Olegario % Urine Total Protein Urine PEP Interpret Ref Test Comments Blood Type Antibody Screen 02/17/18 06:05 WBC RBC Hgb Hct MCV MCH MCHC RDW Plt Count MPV Absolute Neuts (auto) Total Counted Neutrophils % Neutrophils % (Manual) Band Neutrophils % Lymphocytes % Lymphocytes % (Manual) Monocytes % Monocytes % (Manual) Eosinophils % Eosinophils % (Manual) Basophils % Basophils % (Manual) Myelocytes % (Man) Promyelocytes % (Man) Blast Cells % (Manual) Nucleated RBC % Metamyelocytes Hypochromia Platelet Estimate Platelet Comment Polychromasia Poikilocytosis Anisocytosis Microcytosis Macrocytosis Acanthocytes (Spur) Fragmented RBCs PTT (Actin FS) Puncture Site Right radial ABG pH 7.28 L ABG pCO2 at Pt Temp 39.2 ABG pO2 at Pt Temp 75.3 D ABG HCO3 17.8 L ABG O2 Sat (Measured) 94.1 ABG O2 Content 10.8 L ABG Base Excess -7.8 L Vinny Test Positive O2 Delivery Device Mech vent Oxygen Flow Rate 30% Vent Rate 14 Mechanical Rate Yes PEEP 5.0 Pressure Support Vent 500 Sodium Potassium Chloride Carbon Dioxide Anion Gap BUN Creatinine Creat Clearance w eGFR Random Glucose Uric Acid Calcium Phosphorus Magnesium Total Bilirubin AST ALT Alkaline Phosphatase Total Protein Albumin Vkgmq-7-Yetntupmd (%) Nfudb-9-Aadpagzrh (%) Beta Globulins (%) Gamma Globulins (%) M-Olegario % Urine Total Protein Urine PEP Interpret Ref Test Comments Blood Type Antibody Screen Problem List Acute Respiratory Failure Suspected Aspiration MELITA (acute kidney injury) Low suspicion for Hyperviscosity Atrial Fibrillation with RVR AMS Anemia No PTX on CXR PLAN: AC Mode of vent PEEP 5 cm H2O Continue AC Strict I & O Monitor CXR Monitor off sedation ABX coverage Rate control Plasmapheresis per Heme Enteral feeds SBTs as tolerated: Need to discuss GOC with family as he may need a Trach Dr Walker Critical care time spent in reviewing chart, evaluating patient and formulating plan - 36 minutes.
--- NOTE | 2018-02-17 11:07 | PN ---
Physical Exam: SUBJECTIVE: Patient seen and examined at bedside. He is intubated and not sedated. Despite no sedation he is barely responsive. He does not respond to sound or sternal rub. He does respond to R sided briggs pressure. Spoke with his sister at length yesterday. Will continue to speak with her regarding goals of care. Sister Clara Mobley: [phone] - She is in [place] - She says they use to speak on a monthly basis. Last time they spoke was in the summer time. OBJECTIVE: Vital Signs Period Temp Pulse Resp BP Sys/Ariza Pulse Ox Last 24 Hr 98.1 F-99.9 F 68-116 13-21 93-119/59-82 98 GENERAL: The patient is not sedated, not awake, not alert, and not oriented. HEAD: Normal with no signs of trauma. EYES: PERRL, sclera anicteric, conjunctiva clear. ENT: Ears normal, nares patent, moist mucous membranes NECK: Trachea midline. LUNGS: bilateral rhonchi HEART: Regular rate and rhythm, S1, S2 without murmur, rub or gallop. ABDOMEN: Soft, nondistended. EXTREMITIES: 2+ pulses, warm, well-perfused, no edema, scattered ulcers. NEUROLOGICAL: Cannot assess SKIN: Warm, dry, normal turgor, scattered ulcers on the legs Laboratory Results - last 24 hr 02/12/18 02/16/18 02/16/18 10:32 05:30 09:11 WBC RBC Hgb Hct MCV MCH MCHC RDW Plt Count MPV Absolute Neuts (auto) Total Counted Neutrophils % Neutrophils % (Manual) 74.2 Band Neutrophils % 2.1 Lymphocytes % Lymphocytes % (Manual) 16.5 D Monocytes % Monocytes % (Manual) 3 L Eosinophils % Eosinophils % (Manual) 3.1 Basophils % Basophils % (Manual) 0.0 Myelocytes % (Man) 0 Promyelocytes % (Man) 0 Blast Cells % (Manual) 0 Nucleated RBC % Metamyelocytes 1 Hypochromia 0 Platelet Estimate Normal Platelet Comment Polychromasia 1+ Poikilocytosis 0 Anisocytosis 1+ Microcytosis 1+ Macrocytosis 0 Acanthocytes (Spur) Fragmented RBCs PTT (Actin FS) Puncture Site ABG pH ABG pCO2 at Pt Temp ABG pO2 at Pt Temp ABG HCO3 ABG O2 Sat (Measured) ABG O2 Content ABG Base Excess Vinny Test O2 Delivery Device Oxygen Flow Rate Vent Rate Mechanical Rate PEEP Pressure Support Vent Sodium Potassium Chloride Carbon Dioxide Anion Gap BUN Creatinine Creat Clearance w eGFR Random Glucose Uric Acid Calcium Phosphorus Magnesium Total Bilirubin AST ALT Alkaline Phosphatase Total Protein Albumin Wjjcr-4-Bodharptq (%) 1.5 Ldvjn-4-Ucqflzygf (%) 5.5 Beta Globulins (%) 11.4 Gamma Globulins (%) 64.9 M-Olegario % Comment: Urine Total Protein 39.3 Urine PEP Interpret 16.7 Ref Test Comments Blood Type B POSITIVE Antibody Screen Negative 02/17/18 02/17/18 02/17/18 05:30 05:30 05:30 WBC 5.0 RBC 2.70 L Hgb 7.9 L Hct 24.3 L MCV 89.9 MCH 29.4 MCHC 32.7 RDW 16.3 H Plt Count 118 L MPV 9.5 Absolute Neuts (auto) 3.9 Total Counted 100 Neutrophils % 77.3 Neutrophils % (Manual) 70.0 Band Neutrophils % 6.0 Lymphocytes % 17.5 D Lymphocytes % (Manual) 20.0 D Monocytes % 2.9 L Monocytes % (Manual) Eosinophils % 1.9 Eosinophils % (Manual) Basophils % 0.4 Basophils % (Manual) Myelocytes % (Man) Promyelocytes % (Man) Blast Cells % (Manual) Nucleated RBC % 7 H Metamyelocytes 1 Hypochromia 1+ Platelet Estimate Slt decrease Platelet Comment No clotting detected Polychromasia 2+ Poikilocytosis Anisocytosis 2+ Microcytosis Macrocytosis Acanthocytes (Spur) 1+ Fragmented RBCs Occasional PTT (Actin FS) 81.9 H Puncture Site ABG pH ABG pCO2 at Pt Temp ABG pO2 at Pt Temp ABG HCO3 ABG O2 Sat (Measured) ABG O2 Content ABG Base Excess Vinny Test O2 Delivery Device Oxygen Flow Rate Vent Rate Mechanical Rate PEEP Pressure Support Vent Sodium 140 Potassium 4.2 Chloride 115 H Carbon Dioxide 19 L Anion Gap 6 L BUN 43 H Creatinine 2.1 H Creat Clearance w eGFR 30.62 Random Glucose 112 H Uric Acid 6.0 Calcium 6.6 L* Phosphorus 2.7 Magnesium 2.0 Total Bilirubin 0.2 AST 51 H ALT 37 Alkaline Phosphatase 116 Total Protein 7.2 Albumin 3.0 L Sindn-7-Nvlgocgqm (%) Twjcf-5-Kngxovzrl (%) Beta Globulins (%) Gamma Globulins (%) M-Olegario % Urine Total Protein Urine PEP Interpret Ref Test Comments Blood Type Antibody Screen 02/17/18 06:05 WBC RBC Hgb Hct MCV MCH MCHC RDW Plt Count MPV Absolute Neuts (auto) Total Counted Neutrophils % Neutrophils % (Manual) Band Neutrophils % Lymphocytes % Lymphocytes % (Manual) Monocytes % Monocytes % (Manual) Eosinophils % Eosinophils % (Manual) Basophils % Basophils % (Manual) Myelocytes % (Man) Promyelocytes % (Man) Blast Cells % (Manual) Nucleated RBC % Metamyelocytes Hypochromia Platelet Estimate Platelet Comment Polychromasia Poikilocytosis Anisocytosis Microcytosis Macrocytosis Acanthocytes (Spur) Fragmented RBCs PTT (Actin FS) Puncture Site Right radial ABG pH 7.28 L ABG pCO2 at Pt Temp 39.2 ABG pO2 at Pt Temp 75.3 D ABG HCO3 17.8 L ABG O2 Sat (Measured) 94.1 ABG O2 Content 10.8 L ABG Base Excess -7.8 L Vinny Test Positive O2 Delivery Device Mech vent Oxygen Flow Rate 30% Vent Rate 14 Mechanical Rate Yes PEEP 5.0 Pressure Support Vent 500 Sodium Potassium Chloride Carbon Dioxide Anion Gap BUN Creatinine Creat Clearance w eGFR Random Glucose Uric Acid Calcium Phosphorus Magnesium Total Bilirubin AST ALT Alkaline Phosphatase Total Protein Albumin Usnlj-1-Zgyaikqlj (%) Dlzoa-8-Fvmxkaohn (%) Beta Globulins (%) Gamma Globulins (%) M-Olegario % Urine Total Protein Urine PEP Interpret Ref Test Comments Blood Type Antibody Screen Active Medications Generic Name Dose Route Start Last Admin Trade Name Nkechi PRN Reason Stop Dose Admin Acetaminophen 650 mg 02/08/18 05:44 02/12/18 18:10 Tylenol Suppository - [place] 650 mg Q6H PRN Administration FEVER Allopurinol 100 mg 02/16/18 10:00 02/17/18 09:09 Zyloprim - PO 100 mg BID [facility]LLY Administration Diphenhydramine HCl 25 mg 02/16/18 12:00 Benadryl Injection - IVPB ONCE PRN DURING PLASMAPHERESIS Heparin Sodium (Porcine) 5 ml 02/14/18 15:26 Hep-Lock - IVPUSH PRN PRN Heparin Heparin Sodium (Porcine) 1,000 unit 02/15/18 06:38 Heparin - IVPUSH PRN PRN Heparin Heparin Sodium (Porcine) 5,000 unit 02/15/18 06:38 Heparin - IVPUSH PRN PRN Heparin Vancomycin HCl 1,000 mg in 250 mls @ 166.667 mls/hr 02/07/18 20:00 02/16/18 22:00 Vancomycin (Pre-Docked) IVPB 166.667 mls/hr Q24H [facility] Administration Protocol Piperacillin Sod/Tazobactam 50 mls @ 100 mls/hr 02/13/18 11:00 02/17/18 09:09 Sod 2.25 gm/ Dextrose IVPB 100 mls/hr Q8H-IV [facility] Administration Protocol Fentanyl 500 mcg/ Dextrose 100 mls @ 5 mls/hr 02/14/18 11:45 02/16/18 14:04 IVPB 50 mcg/hr TITR [facility] 10 mls/hr Administration Protocol 25 MCG/HR Heparin Sodium/Dextrose 25,000 units in 500 mls @ 20 mls/hr 02/15/18 06:45 04:07 Heparin Infusion - IVPB 650 units/hr TITR [facility] 13 mls/hr Administration Protocol 1,000 UNITS/HR Lactulose 20 gm 02/16/18 09:38 02/17/18 05:27 Cephulac (Oral Use) PO 20 gm TID [facility] Administration Metoprolol Tartrate 25 mg 02/16/18 13:15 02/17/18 09:09 Lopressor - PO 25 mg BID [facility] Administration Metoprolol Tartrate 5 mg 02/16/18 13:04 Lopressor Injection - IVPUSH Q8H PRN TACHYCARDIA Pantoprazole Sodium 40 mg 02/14/18 12:00 02/17/18 09:09 Protonix Iv IVPUSH 40 mg DAILY [facility] Administration Thiamine HCl 100 mg 02/06/18 22:12 02/17/18 09:09 Vitamin B1 - PO 100 mg DAILY [facility] Administration ASSESSMENT/PLAN: Assessment: During sedation vacation today patient's mental status was unimpressive. He was not alert, oriented, or responsive. He experienced multiple runs of V-Tach overnight. Consulted Cards who recommended re-starting patient on PO Lopressor 25 mg BID. Got hold of the patient's Sister Clara Mobley: [phone] to discuss goals of care. Will discuss his DNR/DNI status. Speak about possible Trach tube. Plan: ID: - Rhonchi heard on Lung auscultation - CXR shows pulmonary infiltrate, possible PNA vs empyema vs paramnemonic effusion - Abx coverage with zosyn and Vanc - ID on board Cardio: - Sporadically goes in and out of V-Tach - Cards recommends restarting Lopressor 25 mg BID PO - Afib w RVR: Patient is receiving metoprolol 5 mg PRN - diastolic dysfunction + hypertrophic cardiomyopathy - CAD with multiple stents - Cardio consulted and on board. Pulm: - Intubated - No pneumothorax - increasing Peep to 5 - b/l diffuse rhonchi - infiltrate on CXR: Abx- Zosyn and Vanc - No lasix today Renal: - Acute on Chronic kidney injury - BUN: 43 Cr:2.1. possibly Pre-renal etiology. Unchanged much since yesterday. - Renal consulted and on board. - Patient received plasmapharesis yesterday. Neuro: - Patient is not alert or oriented. He responds to painful stimuli. - Head CT showed no acute pathology Heme/Onc: - Patient received plasmapharesis yesterday. - Patient has hypocalcemia today - Will replete. - Paraproteinemia - Probable Multiple Myeloma, SPEP and UPEP suggestive. - Patient fulfills new criteria for multiple myeloma with free kappa/ free lambda light chain ratio of 432 (>100 is diagnostic of myeloma) - [place]/Lambda ratio > 100 consistent with Multiple myeloma - M spike elevated elevated at 6.8 previously 4.7 Endo: - Hypocalcemia - Glucose wnl - Parathyroid hormone WNL - PTH-borderline low appropriate given hypercalcemia, PTHrP low F/E/N: F: No standing fluids due to fluid overload in lungs E: Will replete lytes PRN N: tube feeds. Code Status: Full Code Dispo: Patient will continue to receive ICU level care Visit type - Emergency Visit Emergency Visit: Yes ED Registration Date: 02/06/18 Care time: The patient presented to the Emergency Department on the above date and was hospitalized for further evaluation of their emergent condition. - New Patient This patient is new to me today: No - Critical Care Critical Care patient: Yes Total Critical Care Time (in minutes): 36 Critical Care Statement: The care of this patient involved high complexity decision making to prevent further life threatening deterioration of the patient 's condition and/or to evaluate & treat vital organ system(s) failure or risk of failure.
--- NOTE | 2018-02-17 11:10 | PN ---
Progress Note, Physician History of Present Illness: Intubated on mechanical ventilation Opens eyes to calling name Low grade temWBC WNL Sputum c/s NLF - Current Medication List Current Medications: Active Medications Acetaminophen (Tylenol Suppository -) 650 mg OR Q6H PRN PRN Reason: FEVER Last Admin: 02/12/18 18:10 Dose: 650 mg Allopurinol (Zyloprim -) 100 mg PO BID [facility] Last Admin: 02/17/18 09:09 Dose: 100 mg Diphenhydramine HCl (Benadryl Injection -) 25 mg IVPB ONCE PRN PRN Reason: DURING PLASMAPHERESIS Heparin Sodium (Porcine) (Hep-Lock -) 5 ml IVPUSH PRN PRN PRN Reason: Heparin Heparin Sodium (Porcine) (Heparin -) 1,000 unit IVPUSH PRN PRN PRN Reason: Heparin Heparin Sodium (Porcine) (Heparin -) 5,000 unit IVPUSH PRN PRN PRN Reason: Heparin Vancomycin HCl (Vancomycin (Pre-Docked)) 1,000 mg in 250 mls @ 166.667 mls/hr IVPB Q24H [facility]; Protocol Last Admin: 02/16/18 22:00 Dose: 166.667 mls/hr Piperacillin Sod/Tazobactam (Sod 2.25 gm/ Dextrose) 50 mls @ 100 mls/hr IVPB Q8H-IV [facility]; Protocol Last Admin: 02/17/18 09:09 Dose: 100 mls/hr Fentanyl 500 mcg/ Dextrose 100 mls @ 5 mls/hr IVPB TITR [facility]; Protocol Last Admin: 02/16/18 14:04 Dose: 50 mcg/hr, 10 mls/hr Heparin Sodium/Dextrose (Heparin Infusion -) 25,000 units in 500 mls @ 20 mls/ hr IVPB TITR [facility]; Protocol Last Admin: 02/17/18 04:07 Dose: 650 units/hr, 13 mls/hr Lactulose (Cephulac (Oral Use)) 20 gm PO TID [facility] Last Admin: 02/17/18 05:27 Dose: 20 gm Metoprolol Tartrate (Lopressor -) 25 mg PO BID [facility] Last Admin: 02/17/18 09:09 Dose: 25 mg Metoprolol Tartrate (Lopressor Injection -) 5 mg IVPUSH Q8H PRN PRN Reason: TACHYCARDIA Pantoprazole Sodium (Protonix Iv) 40 mg IVPUSH DAILY [facility] Last Admin: 02/17/18 09:09 Dose: 40 mg Thiamine HCl (Vitamin B1 -) 100 mg PO DAILY [facility] Last Admin: 02/17/18 09:09 Dose: 100 mg - Objective Vital Signs: Vital Signs Temperature 98.1 F 02/17/18 10:00 Pulse Rate 83 02/17/18 10:00 Respiratory Rate 14 02/17/18 10:00 Blood Pressure 96/60 02/17/18 10:00 O2 Sat by Pulse Oximetry (%) 98 02/16/18 20:48 Constitutional: Yes: No Distress Eyes: Yes: Conjunctiva Clear Cardiovascular: Yes: Regular Rate and Rhythm, S1, S2 Respiratory: Yes: Mechanically Ventilated Gastrointestinal: Yes: Normal Bowel Sounds, Soft. No: Tenderness Edema: No Labs: CBC, BMP 02/17/18 05:30 02/17/18 05:30 INR, PTT INR 1.28 (0.83-1.09) H 02/16/18 05:30 Fibrinogen 293.0 mg/dL (238-498) D 02/16/18 05:30 Assessment/Plan Respiratory failure RLL pneumonia Toxic metabolic encephalopathy Hypercalcemia Renal failure Myeloma Hyperviscosity syndrome Continue broad spectrum antimicrobial coverage- zosyn Ventilatory support Apheresis
--- NOTE | 2018-02-17 12:09 | PN ---
Progress Note (short form) - Note Progress Note: Patient seen and examined Remains intubated Lethargic, non responsive , with withdrawl to painful stimuli Vital Signs Period Temp Pulse Resp BP Sys/Ariza Pulse Ox Last 24 Hr 98.1 F-99.9 F 68-108 13-20 93-119/59-82 98 HEENT: [place], EOM Intact,arcus Oropharynx: ET tube Cor: irregular Lungs: Clear to P&A Abd: Soft, Normal bowel sounds, No organomegaly Ext:No significant edemaheel pads Skin: No rashes, Integument intact CBC, BMP 02/17/18 05:30 02/17/18 05:30 Active Medications Generic Name Dose Route Start Last Admin Trade Name Freq PRN Reason Stop Dose Admin Acetaminophen 650 mg 02/08/18 05:44 02/12/18 18:10 Tylenol Suppository - LA 650 mg Q6H PRN Administration FEVER Allopurinol 100 mg 02/16/18 10:00 02/17/18 09:09 Zyloprim - PO 100 mg BID [facility] Administration Diphenhydramine HCl 25 mg 02/16/18 12:00 Benadryl Injection - IVPB ONCE PRN DURING PLASMAPHERESIS Heparin Sodium (Porcine) 5 ml 02/14/18 15:26 Hep-Lock - IVPUSH PRN PRN Heparin Heparin Sodium (Porcine) 1,000 unit 02/15/18 06:38 Heparin - IVPUSH PRN PRN Heparin Heparin Sodium (Porcine) 5,000 unit 02/15/18 06:38 Heparin - IVPUSH PRN PRN Heparin Vancomycin HCl 1,000 mg in 250 mls @ 166.667 mls/hr 02/07/18 20:00 02/16/18 22:00 Vancomycin (Pre-Docked) IVPB 166.667 mls/hr Q24H [facility] Administration Protocol Piperacillin Sod/Tazobactam 50 mls @ 100 mls/hr 02/13/18 11:00 02/17/18 09:09 Sod 2.25 gm/ Dextrose IVPB 100 mls/hr Q8H-IV [facility] Administration Protocol Fentanyl 500 mcg/ Dextrose 100 mls @ 5 mls/hr 02/14/18 11:45 02/16/18 14:04 IVPB 50 mcg/hr TITR [facility] 10 mls/hr Administration Protocol 25 MCG/HR Heparin Sodium/Dextrose 25,000 units in 500 mls @ 20 mls/hr 02/15/18 06:45 04:07 Heparin Infusion - IVPB 650 units/hr TITR [facility] 13 mls/hr Administration Protocol 1,000 UNITS/HR Lactulose 20 gm 02/16/18 09:38 02/17/18 05:27 Cephulac (Oral Use) PO 20 gm TID [facility] Administration Metoprolol Tartrate 25 mg 02/16/18 13:15 02/17/18 09:09 Lopressor - PO 25 mg BID [facility] Administration Metoprolol Tartrate 5 mg 02/16/18 13:04 Lopressor Injection - IVPUSH Q8H PRN TACHYCARDIA Pantoprazole Sodium 40 mg 02/14/18 12:00 02/17/18 09:09 Protonix Iv IVPUSH 40 mg DAILY [facility] Administration Thiamine HCl 100 mg 02/06/18 22:12 02/17/18 09:09 Vitamin B1 - PO 100 mg DAILY [facility] Administration Impression: Patient fulfills new criteria for multiple myeloma with free kappa/ free lambda light chain ratio of 432 (>100 is diagnostic of myeloma) Patient has had decrease in paraprotein IgG from > 6700---> 3100 with pheresis High free kappa levels may be contributing to renal insufficiency Unusual unexplained phenomenon of myeloma and hypercalcemia with elevated blood level of ammonia not associated with liver disease. ( Patients ammonia level is 91) Plan Continue pheresis -Lowereing of IgG noted. IgG is typically monomeric and unusually associated with hyperviscosity. Await results The pheresis may be contributing to treating myeloma kidney. Start dexamethasone 10 mg iv (equivalent to prednisone 60) q day along with PPI will also recommned acyclovir iv prophylaxis (even though mostly associated with bortezomib treatment) Will begin lactulose for elevated ammonia.
--- NOTE | 2018-02-17 12:20 | PN ---
Progress Note, Physician Chief Complaint: The patient seen in the ICU. Intubated, and vent supported. Patient remains poorly responsive. Maintains good urine output. IV fluids well tolerated. History of Present Illness: This is a 77 year old gentleman with hx of CKD, Afib on A/C, CAD, CKD, Hypertension, Hyperlipidemia, PVD who presented with AMS/Confusion and found to have MELITA. The patient is intubated and supported by mechanical vent. In ICU. Poorly responsive - Current Medication List Current Medications: Active Medications Acetaminophen (Tylenol Suppository -) 650 mg NM Q6H PRN PRN Reason: FEVER Last Admin: 02/12/18 18:10 Dose: 650 mg Allopurinol (Zyloprim -) 100 mg PO BID [facility] Last Admin: 02/17/18 09:09 Dose: 100 mg Diphenhydramine HCl (Benadryl Injection -) 25 mg IVPB ONCE PRN PRN Reason: DURING PLASMAPHERESIS Heparin Sodium (Porcine) (Hep-Lock -) 5 ml IVPUSH PRN PRN PRN Reason: Heparin Heparin Sodium (Porcine) (Heparin -) 1,000 unit IVPUSH PRN PRN PRN Reason: Heparin Heparin Sodium (Porcine) (Heparin -) 5,000 unit IVPUSH PRN PRN PRN Reason: Heparin Vancomycin HCl (Vancomycin (Pre-Docked)) 1,000 mg in 250 mls @ 166.667 mls/hr IVPB Q24H [facility]; Protocol Last Admin: 02/16/18 22:00 Dose: 166.667 mls/hr Piperacillin Sod/Tazobactam (Sod 2.25 gm/ Dextrose) 50 mls @ 100 mls/hr IVPB Q8H-IV [facility]; Protocol Last Admin: 02/17/18 09:09 Dose: 100 mls/hr Fentanyl 500 mcg/ Dextrose 100 mls @ 5 mls/hr IVPB TITR [facility]; Protocol Last Admin: 02/16/18 14:04 Dose: 50 mcg/hr, 10 mls/hr Heparin Sodium/Dextrose (Heparin Infusion -) 25,000 units in 500 mls @ 20 mls/ hr IVPB TITR [facility]; Protocol Last Admin: 02/17/18 04:07 Dose: 650 units/hr, 13 mls/hr Lactulose (Cephulac (Oral Use)) 20 gm PO TID [facility] Last Admin: 02/17/18 05:27 Dose: 20 gm Metoprolol Tartrate (Lopressor -) 25 mg PO BID [facility] Last Admin: 02/17/18 09:09 Dose: 25 mg Metoprolol Tartrate (Lopressor Injection -) 5 mg IVPUSH Q8H PRN PRN Reason: TACHYCARDIA Pantoprazole Sodium (Protonix Iv) 40 mg IVPUSH DAILY [facility] Last Admin: 02/17/18 09:09 Dose: 40 mg Thiamine HCl (Vitamin B1 -) 100 mg PO DAILY [facility] Last Admin: 02/17/18 09:09 Dose: 100 mg - Objective Vital Signs: Vital Signs Temperature 98.1 F 02/17/18 10:00 Pulse Rate 83 02/17/18 10:00 Respiratory Rate 16 02/17/18 11:43 Blood Pressure 96/60 02/17/18 10:00 O2 Sat by Pulse Oximetry (%) 98 02/16/18 20:48 Neck: Yes: Trachea Midline Cardiovascular: Yes: Tachycardia, S1, S2 Respiratory: Yes: Diminished, Mechanically Ventilated, Rales, Rhonchi Gastrointestinal: Yes: Normal Bowel Sounds Genitourinary: Yes: Brenner Present. No: CVA Tenderness - Left, CVA Tenderness - Right Edema: No Neurological: Yes: Unresponsive Labs: CBC, BMP 02/17/18 05:30 02/17/18 05:30 INR, PTT INR 1.28 (0.83-1.09) H 02/16/18 05:30 Fibrinogen 293.0 mg/dL (238-498) D 02/16/18 05:30 Problem List - Problems (1) Multiple myeloma Code(s): C90.00 - MULTIPLE MYELOMA NOT HAVING ACHIEVED REMISSION Qualifiers: Qualified Code(s): C90.00 - Multiple myeloma not having achieved remission (2) MELITA (acute kidney injury) Code(s): N17.9 - ACUTE KIDNEY FAILURE, UNSPECIFIED (3) Altered mental status Code(s): R41.82 - ALTERED MENTAL STATUS, UNSPECIFIED (4) Anemia Code(s): D64.9 - ANEMIA, UNSPECIFIED (5) Atrial fibrillation with RVR Code(s): I48.91 - UNSPECIFIED ATRIAL FIBRILLATION (6) Cellulitis Code(s): L03.90 - CELLULITIS, UNSPECIFIED Qualifiers: Qualified Code(s): L03.115 - Cellulitis of right lower limb (7) Hyperlipidemia Code(s): E78.5 - HYPERLIPIDEMIA, UNSPECIFIED Qualifiers: Qualified Code(s): E78.00 - Pure hypercholesterolemia, unspecified; E78.0 - Pure hypercholesterolemia (8) Sepsis Code(s): A41.9 - SEPSIS, UNSPECIFIED ORGANISM (9) Hypercalcemia Code(s): E83.52 - HYPERCALCEMIA Assessment/Plan This is a 77 year old gentleman with hx of CKD, Afib on A/C, CAD, CKD, Hypertension, Hyperlipidemia, PVD who presented with AMS/Confusion and found to have MELITA. The patient has IgG Myeloma, getting plasmapheresis. Serum Calcium had dropped to 6.6. Received Calcium supplements today. Renal functions stable. The patient's mental status remains essentially unchanged, and not easily explained. ? Anoxic encephalopathy Discussed with Dr. Mcginnis. Concur with the current management. Will monitor the renal/ elctrolyte profile. Thank you. Juliann New MD
[2018-02-17] MEDS: DEXAMETHASONE SOD PHOSPHATE 10 MG/1 ML VIAL IVPUSH SCH ×2 (13:05→22:31)
[2018-02-17] MEDS: FENTANYL INJECTION 500 MCG in DEXTROSE 5%-WATER - 90 ML IVPB SCH ×2 (13:10→22:41)
[2018-02-17] MEDS ORDERED: ACETAMINOPHEN 325 MG TABLET (FP) ONE (14:13)
[2018-02-17] MEDS: VANCOMYCIN 1 GRAM (PRE-DOCKED) 1,000 MG/250 ML BAG IVPB SCH (19:52)
[2018-02-18] MEDS: CHLORHEXIDINE GLUCONATE 0.12% 15ML CUP MM SCH ×3 (00:34→21:20)
[2018-02-18] MEDS ORDERED: DEXTROSE 5%-WATER - 50 ML IVPB ONE ×2 (02:37→09:30)
[2018-02-18] MEDS ORDERED: PIPERACILLIN/TAZOBACTAM 2.25 GM VIAL IVPB ONE ×2 (02:37→09:30)
[2018-02-18] MEDS: PIPERACILLIN/TAZOB 2.25 GM 2.25 GM in DEXTROSE 5%-WATER - 50 ML IVPB SCH ×2 (02:42→09:43)
[2018-02-18] MEDS ORDERED: fentaNYL CITRATE 250 MCG/5 ML VIAL ONE ×2 (04:21→14:13)
[2018-02-18] MEDS: LACTULOSE 20 GM/30 ML UDC (FOR ORAL USE ONLY) PO SCH ×3 (06:10→21:30)
[2018-02-18 06:12] LABS: ARTERIAL BLD GAS O2 SATURATION 99.3 % (90-98.9); ARTERIAL BLOOD GAS BASE EXCESS -9.2 meq/l (-2-2); ARTERIAL BLOOD GAS PCO2 45.4 mmHg (35-45); ARTERIAL BLOOD GAS pH 7.21 (7.35-7.45)
[2018-02-18] MEDS: FENTANYL INJECTION 500 MCG in DEXTROSE 5%-WATER - 90 ML IVPB SCH ×2 (06:15→15:34)
[2018-02-18 06:37] LABS: ALLENS TEST POSITIVE
[2018-02-18 06:40] LABS: BASO % 0.4 % (0-2.0); EOS % 0.3 % (0-4.5); HEMATOCRIT 23.7 % (35.4-49); HEMOGLOBIN 7.9 GM/dL (11.7-16.9); LYMPH % 17.5 % (8-40); MCH 30.1 pg (25.7-33.7); MCHC 33.2 g/dl (32.0-35.9); MEAN CELL VOLUME 90.6 fl (80-96); MEAN PLT VOLUME 9.2 fl (7.5-11.1); MONO % 2.3 % (3.8-10.2); NEUT % 79.5 % (42.8-82.8); PLATELET COUNT 134 K/MM3 (134-434); RBC 2.62 M/mm3 (4.00-5.60); WHITE BLOOD COUNT 8.3 K/mm3 (4.0-10.0)
[2018-02-18 06:49] LABS: INR 1.36 (0.83-1.09); PROTHROMBIN TIME (PATIENT) 16.1 SEC (9.7-13.0)
[2018-02-18 08:01] LABS: ALBUMIN 2.6 g/dl (3.4-5.0); ALK PHOS 145 U/L (45-117); ANION GAP 9 MMOL/L (8-16); BILIRUBIN,TOTAL 0.7 mg/dL (0.2-1); BLOOD UREA NITROGEN 52 mg/dL (7-18); CHLORIDE 114 mmol/L (98-107); CO2 19 mmol/L (21-32); CREATININE 2.7 mg/dL (0.55-1.3); GLUCOSE,RANDOM 174 mg/dL (74-106); MAGNESIUM 2.4 mg/dL (1.8-2.4); PHOSPHOROUS 3.8 mg/dL (2.5-4.9); POTASSIUM 4.8 mmol/L (3.5-5.1); SGOT/AST 54 U/L (15-37); SGPT/ALT 45 U/L (13-61); SODIUM 141 mmol/L (136-145); TOT PROT 8.2 g/dl (6.4-8.2)
[2018-02-18 08:15] LABS: CALCIUM 6.5 mg/dL (8.5-10.1)
--- NOTE | 2018-02-18 08:39 | PN ---
Progress Note, Physician Chief Complaint: AMS Unresponsiveness Respiratory failure History of Present Illness: remains Intubated On mechanical vent remains sedated - Current Medication List Current Medications: Active Medications Acetaminophen (Tylenol Suppository -) 650 mg IA Q6H PRN PRN Reason: FEVER Last Admin: 02/12/18 18:10 Dose: 650 mg Acetaminophen (Tylenol -) 650 mg PO Q6H PRN PRN Reason: PAIN LEVEL 1 - 3 Allopurinol (Zyloprim -) 100 mg PO BID [facility] [place] Last Admin: 02/17/18 22:32 Dose: 100 mg Calcium Gluconate (Calcium Gluconate 10% -) 1,000 mg IVPB ONCE ONE Stop: 02/18/18 08:25 Chlorhexidine Gluconate (Peridex -) 15 ml MM BID [facility] [place] Last Admin: 02/18/18 00:34 Dose: 15 ml Dexamethasone Sodium Phosphate (Decadron Injection -) 10 mg IVPUSH BID [facility] Last Admin: 02/17/18 22:31 Dose: 10 mg Diphenhydramine HCl (Benadryl Injection -) 25 mg IVPB ONCE PRN PRN Reason: DURING PLASMAPHERESIS Heparin Sodium (Porcine) (Hep-Lock -) 5 ml IVPUSH PRN PRN PRN Reason: Heparin Heparin Sodium (Porcine) (Heparin -) 1,000 unit IVPUSH PRN PRN PRN Reason: Heparin Heparin Sodium (Porcine) (Heparin -) 5,000 unit IVPUSH PRN PRN PRN Reason: Heparin Vancomycin HCl (Vancomycin (Pre-Docked)) 1,000 mg in 250 mls @ 166.667 mls/hr IVPB Q24H [facility]; Protocol Last Admin: 02/17/18 19:52 Dose: 166.667 mls/hr Piperacillin Sod/Tazobactam (Sod 2.25 gm/ Dextrose) 50 mls @ 100 mls/hr IVPB Q8H-IV [facility]; Protocol Last Admin: 02/18/18 02:42 Dose: 100 mls/hr Fentanyl 500 mcg/ Dextrose 100 mls @ 5 mls/hr IVPB TITR [facility]; Protocol Last Admin: 02/18/18 06:15 Dose: 100 mcg/hr, 20 mls/hr Heparin Sodium/Dextrose (Heparin Infusion -) 25,000 units in 500 mls @ 20 mls/ hr IVPB TITR [facility]; Protocol Last Admin: 02/17/18 04:07 Dose: 650 units/hr, 13 mls/hr Lactulose (Cephulac (Oral Use)) 20 gm PO TID [facility] [place] Last Admin: 02/18/18 06:10 Dose: 20 gm Metoprolol Tartrate (Lopressor -) 25 mg PO BID [facility] [place] Last Admin: 02/17/18 22:31 Dose: 25 mg Metoprolol Tartrate (Lopressor Injection -) 5 mg IVPUSH Q8H PRN PRN Reason: TACHYCARDIA Pantoprazole Sodium (Protonix Iv) 40 mg IVPUSH DAILY [facility] [place] Last Admin: 02/17/18 09:09 Dose: 40 mg Thiamine HCl (Vitamin B1 -) 100 mg PO DAILY [facility] [place] Last Admin: 02/17/18 09:09 Dose: 100 mg - Objective Vital Signs: Vital Signs Temperature 98.7 F 02/18/18 06:00 Pulse Rate 69 02/18/18 08:00 Respiratory Rate 14 02/18/18 08:00 Blood Pressure 85/61 L 02/18/18 08:00 O2 Sat by Pulse Oximetry (%) 98 02/17/18 22:00 Constitutional: Yes: Well Nourished, No Distress, Calm Cardiovascular: Yes: Regular Rate and Rhythm Respiratory: Yes: Mechanically Ventilated, Rhonchi Gastrointestinal: Yes: Normal Bowel Sounds, Soft Genitourinary: Yes: Brenner Present Musculoskeletal: Yes: WNL Extremities: Yes: WNL Edema: No Peripheral Pulses WNL: Yes Neurological: Yes: Other (sedated) Labs: CBC, BMP 02/18/18 06:00 02/18/18 06:00 INR, PTT INR 1.36 (0.83-1.09) H 02/18/18 06:00 Fibrinogen 290.0 mg/dL (238-498) 02/18/18 06:00 Problem List - Problems (1) MELITA (acute kidney injury) Assessment/Plan: -Nephrology on board -Cr stable -monitor trend -U/S renal/bladder unremarkable Code(s): N17.9 - ACUTE KIDNEY FAILURE, UNSPECIFIED (2) Atrial fibrillation with RVR Assessment/Plan: -On heparin drip -rate controlled -cardiology on board -Tele monitor Code(s): I48.91 - UNSPECIFIED ATRIAL FIBRILLATION (3) Sepsis Assessment/Plan: -upon admission -ID on board -Cultures: Microbiology 02/12/18 19:45 Blood - Peripheral Venous Blood Culture - Final NO GROWTH AFTER 5 DAYS INCUBATION 02/12/18 19:20 Blood - Peripheral Venous Blood Culture - Final NO GROWTH AFTER 5 DAYS INCUBATION 02/13/18 14:30 Sputum - Endotrachea Suction/Ventilator Gram Stain - Final 02/13/18 14:30 Sputum - Endotrachea Suction/Ventilator Sputum Culture - Preliminary Non Lactose Fermenting Gnb 02/13/18 14:30 Urine - Urine Brenner Legionella Antigen - Final 02/13/18 14:30 Urine - Urine Brenner Streptococcus pneumoniae Antigen (M - Final 02/06/18 17:02 Blood - Peripheral Venous Blood Culture - Final NO GROWTH AFTER 5 DAYS INCUBATION 02/06/18 17:02 Blood - Peripheral Venous Blood Culture - Final NO GROWTH AFTER 5 DAYS INCUBATION 02/06/18 17:02 Urine - Urine - Catheterized Urine Culture - Final NO GROWTH OBTAINED 02/07/18 19:15 Nasopharyngeal Swab Influenza Types A,B Antigen - Final 02/07/18 19:15 Nasopharyngeal Swab - Final -On IV Zosyn and Vanco Code(s): A41.9 - SEPSIS, UNSPECIFIED ORGANISM (4) Toxic metabolic encephalopathy Code(s): G92 - TOXIC ENCEPHALOPATHY (5) Altered mental status Assessment/Plan: -CT head x 2 negative -Seen by Neurology -multifactorial Code(s): R41.82 - ALTERED MENTAL STATUS, UNSPECIFIED (6) Anemia Assessment/Plan: chronic, at baseline -Check stool OB-pending -Iron profile, B12, thyroid profile unremarkable -monitor trend -Transfuse only if Hg <7.0 to avoid fluid overload as he is chronically anemic Code(s): D64.9 - ANEMIA, UNSPECIFIED
[2018-02-18] MEDS ORDERED: CALCIUM GLUCONATE 10% - 1,000 MG/10 ML VIAL IVPB ONE (09:00)
--- NOTE | 2018-02-18 09:43 | PN ---
Progress Note, Physician Chief Complaint: The patient seen in the ICU. has profuse diarrhea. Possibly related to the Lactulose. Intubated, and vent supported. Patient remains poorly responsive. Very minimal response to pain. Maintains good urine output. IV fluids well tolerated. History of Present Illness: This is a 77 year old gentleman with hx of CKD, Afib on A/C, CAD, CKD, Hypertension, Hyperlipidemia, PVD who presented with AMS/Confusion and found to have MELITA. The patient is intubated and supported by mechanical vent. In ICU. Poorly responsive - Current Medication List Current Medications: Active Medications Acetaminophen (Tylenol Suppository -) 650 mg SC Q6H PRN PRN Reason: FEVER Last Admin: 02/12/18 18:10 Dose: 650 mg Acetaminophen (Tylenol -) 650 mg PO Q6H PRN PRN Reason: PAIN LEVEL 1 - 3 Allopurinol (Zyloprim -) 100 mg PO BID [facility] Last Admin: 02/17/18 22:32 Dose: 100 mg Chlorhexidine Gluconate (Peridex -) 15 ml MM BID [facility] Last Admin: 02/18/18 00:34 Dose: 15 ml Cholecalciferol (Vitamin D3 -) 1,000 unit PO DAILY [facility] Dexamethasone Sodium Phosphate (Decadron Injection -) 10 mg IVPUSH BID [facility] Last Admin: 02/17/18 22:31 Dose: 10 mg Diphenhydramine HCl (Benadryl Injection -) 25 mg IVPB ONCE PRN PRN Reason: DURING PLASMAPHERESIS Ergocalciferol (Drisdol Oral Solution -) 8,000 units PO DAILY [facility] Stop: 02/24/18 08:37 Heparin Sodium (Porcine) (Hep-Lock -) 5 ml IVPUSH PRN PRN PRN Reason: Heparin Heparin Sodium (Porcine) (Heparin -) 1,000 unit IVPUSH PRN PRN PRN Reason: Heparin Heparin Sodium (Porcine) (Heparin -) 5,000 unit IVPUSH PRN PRN PRN Reason: Heparin Vancomycin HCl (Vancomycin (Pre-Docked)) 1,000 mg in 250 mls @ 166.667 mls/hr IVPB Q24H [facility]; Protocol Last Admin: 02/17/18 19:52 Dose: 166.667 mls/hr Piperacillin Sod/Tazobactam (Sod 2.25 gm/ Dextrose) 50 mls @ 100 mls/hr IVPB Q8H-IV [facility]; Protocol Last Admin: 02/18/18 02:42 Dose: 100 mls/hr Fentanyl 500 mcg/ Dextrose 100 mls @ 5 mls/hr IVPB TITR [facility]; Protocol Last Admin: 02/18/18 06:15 Dose: 100 mcg/hr, 20 mls/hr Heparin Sodium/Dextrose (Heparin Infusion -) 25,000 units in 500 mls @ 20 mls/ hr IVPB TITR [facility]; Protocol Last Admin: 02/17/18 04:07 Dose: 650 units/hr, 13 mls/hr Lactulose (Cephulac (Oral Use)) 20 gm PO TID [facility] Last Admin: 02/18/18 06:10 Dose: 20 gm Metoprolol Tartrate (Lopressor -) 25 mg PO BID [facility] Last Admin: 02/17/18 22:31 Dose: 25 mg Metoprolol Tartrate (Lopressor Injection -) 5 mg IVPUSH Q8H PRN PRN Reason: TACHYCARDIA Pantoprazole Sodium (Protonix Iv) 40 mg IVPUSH DAILY [facility] Last Admin: 02/17/18 09:09 Dose: 40 mg Thiamine HCl (Vitamin B1 -) 100 mg PO DAILY [facility] Last Admin: 02/17/18 09:09 Dose: 100 mg - Objective Vital Signs: Vital Signs Temperature 98.7 F 02/18/18 06:00 Pulse Rate 69 02/18/18 08:00 Respiratory Rate 14 02/18/18 08:00 Blood Pressure 85/61 L 02/18/18 08:00 O2 Sat by Pulse Oximetry (%) 98 02/18/18 08:45 Constitutional: Yes: Pallor Cardiovascular: Yes: Tachycardia, S1, S2 Respiratory: Yes: CTA Bilaterally, Diminished, Rhonchi Gastrointestinal: Yes: Hyperactive Bowel Sounds. No: Palpable Mass Edema: No Neurological: Yes: Unresponsive Labs: CBC, BMP 02/18/18 06:00 02/18/18 06:00 INR, PTT INR 1.36 (0.83-1.09) H 02/18/18 06:00 Fibrinogen 290.0 mg/dL (238-498) 02/18/18 06:00 Problem List - Problems (1) Multiple myeloma Code(s): C90.00 - MULTIPLE MYELOMA NOT HAVING ACHIEVED REMISSION Qualifiers: Multiple myeloma remission status: not in remission Qualified Code(s): C90.00 - Multiple myeloma not having achieved remission (2) MELITA (acute kidney injury) Code(s): N17.9 - ACUTE KIDNEY FAILURE, UNSPECIFIED (3) Altered mental status Code(s): R41.82 - ALTERED MENTAL STATUS, UNSPECIFIED (4) Anemia Code(s): D64.9 - ANEMIA, UNSPECIFIED (5) Atrial fibrillation with RVR Code(s): I48.91 - UNSPECIFIED ATRIAL FIBRILLATION (6) Cellulitis Code(s): L03.90 - CELLULITIS, UNSPECIFIED Qualifiers: Site of cellulitis: extremity Site of cellulitis of extremity: lower extremity Laterality: right Qualified Code(s): L03.115 - Cellulitis of right lower limb (7) Hyperlipidemia Code(s): E78.5 - HYPERLIPIDEMIA, UNSPECIFIED Qualifiers: Hyperlipidemia type: pure hypercholesterolemia Qualified Code(s): E78.00 - Pure hypercholesterolemia, unspecified; E78.0 - Pure hypercholesterolemia (8) Sepsis Code(s): A41.9 - SEPSIS, UNSPECIFIED ORGANISM (9) Hypercalcemia Code(s): E83.52 - HYPERCALCEMIA Assessment/Plan This is a 77 year old gentleman with hx of CKD, Afib on A/C, CAD, CKD, Hypertension, Hyperlipidemia, PVD who presented with AMS/Confusion and found to have MELITA. The patient has IgG Myeloma, treated with Plasmapheresis. Serum Calcium had dropped to 6.5. Received Calcium supplements today also. has progressive hyperchloremic Metabolic acidosis, most leikely related to the diarrhea. if Sodium Bicarb supplements are given, should consider large amounts of Calcium supplemets, to avoid sudden and severe hypocalcemia, to avoid tetany and seizure. The patient's mental status not easily explained. ? Anoxic encephalopathy Will monitor the renal/ elctrolyte profile. Thank you. Juliann New MD
[2018-02-18] MEDS: THIAMINE HCL 100 MG TABLET (FP) PO SCH (09:44)
[2018-02-18] MEDS: METOPROLOL TARTRATE 25 MG TABLET (FP) PO SCH ×2 (09:44→21:30)
[2018-02-18] MEDS: ALLOPURINOL 100 MG TABLET (FP) PO SCH ×2 (09:44→21:20)
[2018-02-18] MEDS ORDERED: PT OWN MED DRAWER 7, Y5N ONE ×3 (09:46→20:56)
[2018-02-18] MEDS: DEXAMETHASONE SOD PHOSPHATE 10 MG/1 ML VIAL IVPUSH SCH ×2 (09:47→21:19)
[2018-02-18] MEDS: PANTOPRAZOLE SODIUM 40 MG VIAL IVPUSH SCH (09:48)
--- NOTE | 2018-02-18 10:04 | PN ---
Teaching Attending Note Name of Resident: Shun Quick ATTENDING PHYSICIAN STATEMENT I saw and evaluated the patient. I reviewed the resident's note and discussed the case with the resident. I agree with the resident's findings and plan as documented. SUBJECTIVE: Patient seen and examined in the ICU. Remains intubated. Off sedation and minimally responsive. Intermittently grimacing to pain. No pressors. CXR: poor film quality / left base excluded Intake & Output 02/15/18 02/16/18 02/17/18 02/18/18 23:59 23:59 23:59 23:59 Intake Total 1792 2958 1630 1292 Output Total 1800 1450 1225 175 Balance -8 4960 337 6216 Weight 178 lb 4 oz 177 lb 1 oz 180 lb 1 oz 182 lb 3 oz Last Vital Signs Temp Pulse Resp BP Pulse Ox 98.7 F 45 L 14 85/61 L 100 02/18/18 06:00 02/18/18 09:42 02/18/18 09:40 02/18/18 08:00 02/18/18 09:42 Active Medications Acetaminophen (Tylenol Suppository -) 650 mg [place] Q6H PRN PRN Reason: FEVER Last Admin: 02/12/18 18:10 Dose: 650 mg Acetaminophen (Tylenol -) 650 mg PO Q6H PRN PRN Reason: PAIN LEVEL 1 - 3 Allopurinol (Zyloprim -) 100 mg PO BID [facility] Last Admin: 02/18/18 09:44 Dose: 100 mg Chlorhexidine Gluconate (Peridex -) 15 ml MM BID [facility] Last Admin: 02/18/18 09:44 Dose: 15 ml Cholecalciferol (Vitamin D3 -) 1,000 unit PO DAILY [facility] Dexamethasone Sodium Phosphate (Decadron Injection -) 10 mg IVPUSH BID [facility] Last Admin: 02/18/18 09:47 Dose: 10 mg Diphenhydramine HCl (Benadryl Injection -) 25 mg IVPB ONCE PRN PRN Reason: DURING PLASMAPHERESIS Ergocalciferol (Drisdol Oral Solution -) 8,000 units PO DAILY [facility] Stop: 02/24/18 08:37 Heparin Sodium (Porcine) (Hep-Lock -) 5 ml IVPUSH PRN PRN PRN Reason: Heparin Heparin Sodium (Porcine) (Heparin -) 1,000 unit IVPUSH PRN PRN PRN Reason: Heparin Heparin Sodium (Porcine) (Heparin -) 5,000 unit IVPUSH PRN PRN PRN Reason: Heparin Vancomycin HCl (Vancomycin (Pre-Docked)) 1,000 mg in 250 mls @ 166.667 mls/hr IVPB Q24H [facility]; Protocol Last Admin: 02/17/18 19:52 Dose: 166.667 mls/hr Piperacillin Sod/Tazobactam (Sod 2.25 gm/ Dextrose) 50 mls @ 100 mls/hr IVPB Q8H-IV [facility]; Protocol Last Admin: 02/18/18 09:43 Dose: 100 mls/hr Fentanyl 500 mcg/ Dextrose 100 mls @ 5 mls/hr IVPB TITR [facility]; Protocol Last Admin: 02/18/18 06:15 Dose: 100 mcg/hr, 20 mls/hr Heparin Sodium/Dextrose (Heparin Infusion -) 25,000 units in 500 mls @ 20 mls/ hr IVPB TITR [facility]; Protocol Last Titration: 02/18/18 09:57 Dose: 500 units/hr, 10 mls/hr Lactulose (Cephulac (Oral Use)) 20 gm PO TID [facility] Last Admin: 02/18/18 06:10 Dose: 20 gm Metoprolol Tartrate (Lopressor -) 25 mg PO BID [facility] Last Admin: 02/18/18 09:44 Dose: 25 mg Metoprolol Tartrate (Lopressor Injection -) 5 mg IVPUSH Q8H PRN PRN Reason: TACHYCARDIA Pantoprazole Sodium (Protonix Iv) 40 mg IVPUSH DAILY [facility] Last Admin: 02/18/18 09:48 Dose: 40 mg Thiamine HCl (Vitamin B1 -) 100 mg PO DAILY [facility] Last Admin: 02/18/18 09:44 Dose: 100 mg Constitutional: Yes: Intubated, not sedated, minimally responsive Cardiovascular: Yes: Pulse Irregular, AFib Respiratory: Yes: Intubated and sedated, basilar rhonhci Left > Right Gastrointestinal: Yes: Normal Bowel Sounds, Soft Musculoskeletal: Yes: WNL Extremities: Yes: WNL Edema: No Peripheral Pulses WNL: Yes Neurological: Yes: Minimally responsive Labs: Laboratory Results - last 24 hr 02/16/18 02/18/18 02/18/18 05:30 06:00 06:00 WBC RBC Hgb Hct MCV MCH MCHC RDW Plt Count MPV Absolute Neuts (auto) Neutrophils % Lymphocytes % Monocytes % Eosinophils % Basophils % Nucleated RBC % PT with INR 16.10 H INR 1.36 H PTT (Actin FS) 87.7 H Fibrinogen Puncture Site ABG pH ABG pCO2 at Pt Temp ABG pO2 at Pt Temp ABG HCO3 ABG O2 Sat (Measured) ABG O2 Content ABG Base Excess Vinny Test O2 Delivery Device Oxygen Flow Rate Vent Mode Vent Rate Mechanical Rate PEEP Pressure Support Vent Sodium Potassium Chloride Carbon Dioxide Anion Gap BUN Creatinine Creat Clearance w eGFR Random Glucose Lactic Acid Calcium Phosphorus Magnesium Total Bilirubin AST ALT Alkaline Phosphatase Troponin I Total Protein Albumin IgG 3581 H 02/18/18 02/18/18 02/18/18 06:00 06:00 06:00 WBC 8.3 RBC 2.62 L Hgb 7.9 L Hct 23.7 L MCV 90.6 MCH 30.1 MCHC 33.2 RDW 17.0 H Plt Count 134 MPV 9.2 Absolute Neuts (auto) 6.6 Neutrophils % 79.5 Lymphocytes % 17.5 Monocytes % 2.3 L Eosinophils % 0.3 D Basophils % 0.4 Nucleated RBC % 2 H PT with INR INR PTT (Actin FS) Fibrinogen 290.0 Puncture Site ABG pH ABG pCO2 at Pt Temp ABG pO2 at Pt Temp ABG HCO3 ABG O2 Sat (Measured) ABG O2 Content ABG Base Excess Vinny Test O2 Delivery Device Oxygen Flow Rate Vent Mode Vent Rate Mechanical Rate PEEP Pressure Support Vent Sodium 141 Potassium 4.8 Chloride 114 H Carbon Dioxide 19 L Anion Gap 9 BUN 52 H Creatinine 2.7 H Creat Clearance w eGFR 22.91 Random Glucose 174 H Lactic Acid Calcium 6.5 L* Phosphorus 3.8 Magnesium 2.4 Total Bilirubin 0.7 AST 54 H ALT 45 Alkaline Phosphatase 145 H Troponin I 0.19 H Total Protein 8.2 Albumin 2.6 L IgG 02/18/18 02/18/18 06:00 06:00 WBC RBC Hgb Hct MCV MCH MCHC RDW Plt Count MPV Absolute Neuts (auto) Neutrophils % Lymphocytes % Monocytes % Eosinophils % Basophils % Nucleated RBC % PT with INR INR PTT (Actin FS) Fibrinogen Puncture Site Right radial ABG pH 7.21 L* ABG pCO2 at Pt Temp 45.4 H ABG pO2 at Pt Temp 390.0 H* D ABG HCO3 17.6 L ABG O2 Sat (Measured) 99.3 H ABG O2 Content 13.3 L ABG Base Excess -9.2 L Vinny Test Positive O2 Delivery Device Vent Oxygen Flow Rate 100% Vent Mode A/c Vent Rate 14 Mechanical Rate Yes PEEP 5.0 Pressure Support Vent 500 Sodium Potassium Chloride Carbon Dioxide Anion Gap BUN Creatinine Creat Clearance w eGFR Random Glucose Lactic Acid 0.7 Calcium Phosphorus Magnesium Total Bilirubin AST ALT Alkaline Phosphatase Troponin I Total Protein Albumin IgG Problem List Acute Respiratory Failure Suspected Aspiration MELITA (acute kidney injury) Low suspicion for Hyperviscosity Atrial Fibrillation with RVR AMS Anemia No PTX on CXR PLAN: AC Mode of vent PEEP 5 cm H2O Continue AC Strict I & O Monitor CXR Monitor off sedation ABX coverage Rate control Plasmapheresis per Heme Enteral feeds SBTs as tolerated: Need to discuss GOC with family as he may need a Trach versus compassionate extubation Dr Walker Critical care time spent in reviewing chart, evaluating patient and formulating plan - 36 minutes.
--- NOTE | 2018-02-18 10:32 | PN ---
Progress Note, Physician Chief Complaint: Events noted Remains on mechanical ventilation History of Present Illness: Patient was seen and examined in ICU. Remains on vent support. Chart was reviewed - Current Medication List Current Medications: Active Medications Acetaminophen (Tylenol Suppository -) 650 mg [place] Q6H PRN PRN Reason: FEVER Last Admin: 02/12/18 18:10 Dose: 650 mg Acetaminophen (Tylenol -) 650 mg PO Q6H PRN PRN Reason: PAIN LEVEL 1 - 3 Allopurinol (Zyloprim -) 100 mg PO BID [facility] Last Admin: 02/18/18 09:44 Dose: 100 mg Chlorhexidine Gluconate (Peridex -) 15 ml MM BID [facility] Last Admin: 02/18/18 09:44 Dose: 15 ml Cholecalciferol (Vitamin D3 -) 1,000 unit PO DAILY [facility] Dexamethasone Sodium Phosphate (Decadron Injection -) 10 mg IVPUSH BID [facility] Last Admin: 02/18/18 09:47 Dose: 10 mg Diphenhydramine HCl (Benadryl Injection -) 25 mg IVPB ONCE PRN PRN Reason: DURING PLASMAPHERESIS Ergocalciferol (Drisdol Oral Solution -) 8,000 units PO DAILY [facility] Stop: 02/24/18 08:37 Heparin Sodium (Porcine) (Hep-Lock -) 5 ml IVPUSH PRN PRN PRN Reason: Heparin Heparin Sodium (Porcine) (Heparin -) 1,000 unit IVPUSH PRN PRN PRN Reason: Heparin Heparin Sodium (Porcine) (Heparin -) 5,000 unit IVPUSH PRN PRN PRN Reason: Heparin Vancomycin HCl (Vancomycin (Pre-Docked)) 1,000 mg in 250 mls @ 166.667 mls/hr IVPB Q24H [facility]; Protocol Last Admin: 02/17/18 19:52 Dose: 166.667 mls/hr Piperacillin Sod/Tazobactam (Sod 2.25 gm/ Dextrose) 50 mls @ 100 mls/hr IVPB Q8H-IV [facility]; Protocol Last Admin: 02/18/18 09:43 Dose: 100 mls/hr Fentanyl 500 mcg/ Dextrose 100 mls @ 5 mls/hr IVPB TITR [facility]; Protocol Last Admin: 02/18/18 06:15 Dose: 100 mcg/hr, 20 mls/hr Heparin Sodium/Dextrose (Heparin Infusion -) 25,000 units in 500 mls @ 20 mls/ hr IVPB TITR [facility]; Protocol Last Titration: 02/18/18 09:57 Dose: 500 units/hr, 10 mls/hr Lactulose (Cephulac (Oral Use)) 20 gm PO TID [facility] Last Admin: 02/18/18 06:10 Dose: 20 gm Metoprolol Tartrate (Lopressor -) 25 mg PO BID [facility] Last Admin: 02/18/18 09:44 Dose: 25 mg Metoprolol Tartrate (Lopressor Injection -) 5 mg IVPUSH Q8H PRN PRN Reason: TACHYCARDIA Pantoprazole Sodium (Protonix Iv) 40 mg IVPUSH DAILY [facility] Last Admin: 02/18/18 09:48 Dose: 40 mg Thiamine HCl (Vitamin B1 -) 100 mg PO DAILY [facility] Last Admin: 02/18/18 09:44 Dose: 100 mg - Objective Vital Signs: Vital Signs Temperature 98.4 F 02/18/18 10:00 Pulse Rate 70 02/18/18 10:00 Respiratory Rate 14 02/18/18 10:00 Blood Pressure 90/60 02/18/18 10:00 O2 Sat by Pulse Oximetry (%) 100 02/18/18 09:42 HENT: Yes: Atraumatic Neck: Yes: Supple Cardiovascular: Yes: Pulse Irregular, S1, S2 Respiratory: Yes: Diminished, Mechanically Ventilated Gastrointestinal: Yes: Normal Bowel Sounds, Soft. No: Tenderness Edema: No Labs: CBC, BMP 02/18/18 06:00 02/18/18 06:00 INR, PTT INR 1.36 (0.83-1.09) H 02/18/18 06:00 Fibrinogen 290.0 mg/dL (238-498) 02/18/18 06:00 - ....Imaging Chest X-ray: Pending Problem List - Problems (1) Anemia Code(s): D64.9 - ANEMIA, UNSPECIFIED (2) Atrial fibrillation with RVR Code(s): I48.91 - UNSPECIFIED ATRIAL FIBRILLATION (3) Hyperlipidemia Code(s): E78.5 - HYPERLIPIDEMIA, UNSPECIFIED Qualifiers: Hyperlipidemia type: pure hypercholesterolemia Qualified Code(s): E78.00 - Pure hypercholesterolemia, unspecified; E78.0 - Pure hypercholesterolemia (4) Multiple myeloma Code(s): C90.00 - MULTIPLE MYELOMA NOT HAVING ACHIEVED REMISSION Qualifiers: Multiple myeloma remission status: not in remission Qualified Code(s): C90.00 - Multiple myeloma not having achieved remission (5) Toxic metabolic encephalopathy Code(s): G92 - TOXIC ENCEPHALOPATHY (6) [id number] kidney injury Code(s): N17.9 - ACUTE KIDNEY FAILURE, UNSPECIFIED; N18.9 - CHRONIC KIDNEY DISEASE, UNSPECIFIED Qualifiers: Acute renal failure type: unspecified Chronic kidney disease stage: unspecified stage Qualified Code(s): N17.9 - Acute kidney failure, unspecified ; N18.9 - Chronic kidney disease, unspecified (7) Demand ischemia Code(s): I24.8 - OTHER FORMS OF ACUTE ISCHEMIC HEART DISEASE (8) History of ETOH abuse Code(s): Z87.898 - PERSONAL HISTORY OF OTHER SPECIFIED CONDITIONS (9) Paraproteinemia Code(s): D89.2 - HYPERGAMMAGLOBULINEMIA, UNSPECIFIED (10) Persistent atrial fibrillation Code(s): I48.1 - PERSISTENT ATRIAL FIBRILLATION (11) Chronic thromboembolic disease Code(s): I74.9 - EMBOLISM AND THROMBOSIS OF UNSPECIFIED ARTERY (12) Coronary artery disease Code(s): I25.10 - ATHSCL HEART DISEASE OF [place] CORONARY ARTERY W/O ANG PCTRS Qualifiers: Coronary Disease-Associated Artery/Lesion type: [place] artery [place] vs. transplanted heart: [place] heart Associated angina: without angina Qualified Code(s): I25.10 - Atherosclerotic heart disease of [place] coronary artery without angina pectoris (13) Diastolic dysfunction without heart failure Code(s): I51.9 - HEART DISEASE, UNSPECIFIED (14) HTN (hypertension) Code(s): I10 - ESSENTIAL (PRIMARY) HYPERTENSION Qualifiers: Hypertension type: essential hypertension Qualified Code(s): I10 - Essential (primary) hypertension (15) Hypertrophic cardiomyopathy Code(s): I42.2 - OTHER HYPERTROPHIC CARDIOMYOPATHY (16) Left ventricular systolic dysfunction Code(s): I51.9 - HEART DISEASE, UNSPECIFIED Assessment/Plan 1. Acute hypoxic respiratory failure, suspect aspiration pneumonia 2. Toxic metabolic encephalopathy, possible hyperviscosity syndrome and sepsis 2. Acute on CKD 3. Hypercalcemia, paraproteinemia confirmed multiple myeloma, hyperviscosity syndrome 4. History of bilateral SFA occlusion post thrombectomy, referable to embolic disease related to persistent atrial fibrillation 5. Non obstructive CAD on R&L heart cath/coronary angiography with demand ischemia 6. LV diastolic dysfunction related to apical hypertrophic cardiomyopathy, subendocardial ischemia, compensated/euvolemic 7. Persistent atrial fibrillation with RVR [id number] score of 6 on heparin gtt 8. Labile HTN 9. Poor compliance with medical therapy administration and medical F/U 10. ETOH dependence PLAN: 1. Heparin drip for now while off Xarelto 15 qd (renal dosing) 2. Lopressor 25 BID as hemodynamics tolerate 3. Plasmapharesis per hematology input 4. Empiric antibiotic course 5. Enteral feeds, monitor ammonia levels 6. Ventilator management as per Critical Care team Guarded Eliel Sam MD
[2018-02-18 10:52] LABS: ANISOCYTOSIS 2+; MACROCYTOSIS 1+; PLATELET ESTIMATE DECREASED; TEAR DROP CELLS 1+
--- NOTE | 2018-02-18 11:08 | PN ---
Progress Note (short form) - Note Progress Note: Patient seen and examined Remains intubated Lethargic, non responsive , with withdrawl to painful stimuli Vital Signs Period Temp Pulse Resp BP Sys/Ariza Pulse Ox Last 24 Hr 98.4 F-102 F 45-122 14-27 85-125/60-75 98-100 Oropharynx: ET tube Ext:No significant edemaheel pads Skin: No rashes, Integument intact CBC, BMP 02/18/18 06:00 02/18/18 06:00 Active Medications Generic Name Dose Route Start Last Admin Trade Name Freq PRN Reason Stop Dose Admin Acetaminophen 650 mg 02/08/18 05:44 02/12/18 18:10 Tylenol Suppository - IN 650 mg Q6H PRN Administration FEVER Acetaminophen 650 mg 02/17/18 14:09 Tylenol - PO Q6H PRN PAIN LEVEL 1 - 3 Allopurinol 100 mg 02/16/18 10:00 02/18/18 09:44 Zyloprim - PO 100 mg BID [facility] Administration Chlorhexidine Gluconate 15 ml 02/17/18 23:45 02/18/18 09:44 Peridex - MM 15 ml BID [facility] Administration Cholecalciferol 1,000 unit 02/25/18 10:00 Vitamin D3 - PO DAILY [facility] Dexamethasone Sodium Phosphate 10 mg 02/17/18 12:15 02/18/18 09:47 Decadron Injection - IVPUSH 10 mg BID [facility] Administration Diphenhydramine HCl 25 mg 02/16/18 12:00 Benadryl Injection - IVPB ONCE PRN DURING PLASMAPHERESIS Ergocalciferol 8,000 units 02/18/18 10:00 Drisdol Oral Solution - PO 02/24/18 08:37 DAILY [facility] Heparin Sodium (Porcine) 5 ml 02/14/18 15:26 Hep-Lock - IVPUSH PRN PRN Heparin Heparin Sodium (Porcine) 1,000 unit 02/15/18 06:38 Heparin - IVPUSH PRN PRN Heparin Heparin Sodium (Porcine) 5,000 unit 02/15/18 06:38 Heparin - IVPUSH PRN PRN Heparin Vancomycin HCl 1,000 mg in 250 mls @ 166.667 mls/hr 02/07/18 20:00 02/17/18 19:52 Vancomycin (Pre-Docked) IVPB 166.667 mls/hr Q24H [facility] Administration Protocol Piperacillin Sod/Tazobactam 50 mls @ 100 mls/hr 02/13/18 11:00 02/18/18 09:43 Sod 2.25 gm/ Dextrose IVPB 100 mls/hr Q8H-IV [facility] Administration Protocol Fentanyl 500 mcg/ Dextrose 100 mls @ 5 mls/hr 02/14/18 11:45 02/18/18 06:15 IVPB 100 mcg/hr TITR [facility] 20 mls/hr Administration Protocol 25 MCG/HR Heparin Sodium/Dextrose 25,000 units in 500 mls @ 20 mls/hr 02/15/18 06:45 09:57 Heparin Infusion - IVPB 500 units/hr TITR [facility] 10 mls/hr Titration Protocol 1,000 UNITS/HR Lactulose 20 gm 02/16/18 09:38 02/18/18 06:10 Cephulac (Oral Use) PO 20 gm TID [facility] Administration Metoprolol Tartrate 25 mg 02/16/18 13:15 02/18/18 09:44 Lopressor - PO 25 mg BID [facility] Administration Metoprolol Tartrate 5 mg 02/16/18 13:04 Lopressor Injection - IVPUSH Q8H PRN TACHYCARDIA Pantoprazole Sodium 40 mg 02/14/18 12:00 02/18/18 09:48 Protonix Iv IVPUSH 40 mg DAILY [facility] Administration Thiamine HCl 100 mg 02/06/18 22:12 02/18/18 09:44 Vitamin B1 - PO 100 mg DAILY [facility] Administration Impression: Patient fulfills new criteria for multiple myeloma with free kappa/ free lambda light chain ratio of 432 (>100 is diagnostic of myeloma) Patient has had decrease in paraprotein IgG from > 6700---> 3100 with pheresis High free kappa levels may be contributing to renal insufficiency Unusual unexplained phenomenon of myeloma and hypercalcemia with elevated blood level of ammonia not associated with liver disease. ( Patients ammonia level is 91) Plan More plasmapheresis is unlikely to be helpful IgG is typically monomeric and unusually associated with hyperviscosity. Await results Started dexamethasone 10 mg iv (equivalent to prednisone 60) q day along with PPI. Continue for 4 days as pulse dex and see whether there is improvement if not probably had anoxic brain injury will also recommned acyclovir iv prophylaxis (even though mostly associated with bortezomib treatment)
--- NOTE | 2018-02-18 11:10 | PN ---
Progress Note, Physician History of Present Illness: Intubated on mechanical ventilation Opens eyes to tactile stimulus but does not make eye contact Temp 102 yesterday Sputum c/s (R) xanthomonas - Current Medication List Current Medications: Active Medications Acetaminophen (Tylenol Suppository -) 650 mg [place] Q6H PRN PRN Reason: FEVER Last Admin: 02/12/18 18:10 Dose: 650 mg Acetaminophen (Tylenol -) 650 mg PO Q6H PRN PRN Reason: PAIN LEVEL 1 - 3 Allopurinol (Zyloprim -) 100 mg PO BID [facility] Last Admin: 02/18/18 09:44 Dose: 100 mg Chlorhexidine Gluconate (Peridex -) 15 ml MM BID [facility] Last Admin: 02/18/18 09:44 Dose: 15 ml Cholecalciferol (Vitamin D3 -) 1,000 unit PO DAILY [facility] Dexamethasone Sodium Phosphate (Decadron Injection -) 10 mg IVPUSH BID [facility] Last Admin: 02/18/18 09:47 Dose: 10 mg Diphenhydramine HCl (Benadryl Injection -) 25 mg IVPB ONCE PRN PRN Reason: DURING PLASMAPHERESIS Ergocalciferol (Drisdol Oral Solution -) 8,000 units PO DAILY [facility] Stop: 02/24/18 08:37 Heparin Sodium (Porcine) (Hep-Lock -) 5 ml IVPUSH PRN PRN PRN Reason: Heparin Heparin Sodium (Porcine) (Heparin -) 1,000 unit IVPUSH PRN PRN PRN Reason: Heparin Heparin Sodium (Porcine) (Heparin -) 5,000 unit IVPUSH PRN PRN PRN Reason: Heparin Vancomycin HCl (Vancomycin (Pre-Docked)) 1,000 mg in 250 mls @ 166.667 mls/hr IVPB Q24H [facility]; Protocol Last Admin: 02/17/18 19:52 Dose: 166.667 mls/hr Piperacillin Sod/Tazobactam (Sod 2.25 gm/ Dextrose) 50 mls @ 100 mls/hr IVPB Q8H-IV [facility]; Protocol Last Admin: 02/18/18 09:43 Dose: 100 mls/hr Fentanyl 500 mcg/ Dextrose 100 mls @ 5 mls/hr IVPB TITR [facility]; Protocol Last Admin: 02/18/18 06:15 Dose: 100 mcg/hr, 20 mls/hr Heparin Sodium/Dextrose (Heparin Infusion -) 25,000 units in 500 mls @ 20 mls/ hr IVPB TITR [facility]; Protocol Last Titration: 02/18/18 09:57 Dose: 500 units/hr, 10 mls/hr Lactulose (Cephulac (Oral Use)) 20 gm PO TID [facility] Last Admin: 02/18/18 06:10 Dose: 20 gm Metoprolol Tartrate (Lopressor -) 25 mg PO BID [facility] Last Admin: 02/18/18 09:44 Dose: 25 mg Metoprolol Tartrate (Lopressor Injection -) 5 mg IVPUSH Q8H PRN PRN Reason: TACHYCARDIA Pantoprazole Sodium (Protonix Iv) 40 mg IVPUSH DAILY [facility] Last Admin: 02/18/18 09:48 Dose: 40 mg Thiamine HCl (Vitamin B1 -) 100 mg PO DAILY [facility] Last Admin: 02/18/18 09:44 Dose: 100 mg - Objective Vital Signs: Vital Signs Temperature 98.4 F 02/18/18 10:00 Pulse Rate 70 02/18/18 10:00 Respiratory Rate 14 02/18/18 10:00 Blood Pressure 90/60 02/18/18 10:00 O2 Sat by Pulse Oximetry (%) 100 02/18/18 09:42 Constitutional: Yes: No Distress Eyes: Yes: Conjunctiva Clear Cardiovascular: Yes: Regular Rate and Rhythm, S1, S2 Respiratory: Yes: Mechanically Ventilated Gastrointestinal: Yes: Normal Bowel Sounds, Soft. No: Tenderness Edema: No Labs: CBC, BMP 02/18/18 06:00 02/18/18 06:00 INR, PTT INR 1.36 (0.83-1.09) H 02/18/18 06:00 Fibrinogen 290.0 mg/dL (238-498) 02/18/18 06:00 Assessment/Plan Respiratory failure RLL pneumonia Toxic metabolic encephalopathy Hypercalcemia Renal failure Myeloma Hyperviscosity syndrome Will switch antibiotic to cover sputum isolate, adjusted for renal failure Avoid quinolone with prolonged QT Ventilatory support
--- NOTE | 2018-02-18 12:14 | PN ---
Physical Exam: SUBJECTIVE: Patient seen and examined patient on bed off from sedation didn't respond to pain full stimuli but opened his eyes a little bit on sternal rub. OBJECTIVE: Vital Signs Period Temp Pulse Resp BP Sys/Ariza Pulse Ox Last 24 Hr 98.4 F-102 F 45-122 14-27 85-125/60-75 98-100 GENERAL: intubated, not on sedation, HEAD: Normal with no signs of trauma. EYES: PERRL, sclera anicteric, conjunctiva clear. NECK: Trachea midline. LUNGS: bilateral rhonchi HEART: Regular rate and rhythm, S1, S2 normal ABDOMEN: Soft, nondistended. EXTREMITIES: 2+ pulses, warm, well-perfused, no edema, scattered ulcers. SKIN: Warm, dry, Laboratory Results - last 24 hr 02/16/18 02/18/18 02/18/18 05:30 06:00 06:00 WBC RBC Hgb Hct MCV MCH MCHC RDW Plt Count MPV Absolute Neuts (auto) Neutrophils % Neutrophils % (Manual) Band Neutrophils % Lymphocytes % Lymphocytes % (Manual) Monocytes % Monocytes % (Manual) Eosinophils % Eosinophils % (Manual) Basophils % Basophils % (Manual) Myelocytes % (Man) Promyelocytes % (Man) Blast Cells % (Manual) Nucleated RBC % Metamyelocytes Hypochromia Platelet Estimate Polychromasia Poikilocytosis Anisocytosis Microcytosis Macrocytosis Spherocytes Tear Drop Cells [place] Cells PT with INR 16.10 H INR 1.36 H PTT (Actin FS) 87.7 H Fibrinogen Puncture Site ABG pH ABG pCO2 at Pt Temp ABG pO2 at Pt Temp ABG HCO3 ABG O2 Sat (Measured) ABG O2 Content ABG Base Excess Vinny Test O2 Delivery Device Oxygen Flow Rate Vent Mode Vent Rate Mechanical Rate PEEP Pressure Support Vent Sodium Potassium Chloride Carbon Dioxide Anion Gap BUN Creatinine Creat Clearance w eGFR Random Glucose Lactic Acid Calcium Phosphorus Magnesium Total Bilirubin AST ALT Alkaline Phosphatase Troponin I Total Protein Albumin IgG 3581 H 02/18/18 02/18/18 02/18/18 06:00 06:00 06:00 WBC 8.3 RBC 2.62 L Hgb 7.9 L Hct 23.7 L MCV 90.6 MCH 30.1 MCHC 33.2 RDW 17.0 H Plt Count 134 MPV 9.2 Absolute Neuts (auto) 6.6 Neutrophils % 79.5 Neutrophils % (Manual) 76.8 Band Neutrophils % 3.0 Lymphocytes % 17.5 Lymphocytes % (Manual) 11.1 D Monocytes % 2.3 L Monocytes % (Manual) 3 L Eosinophils % 0.3 D Eosinophils % (Manual) 3.1 Basophils % 0.4 Basophils % (Manual) 0.0 Myelocytes % (Man) 1 D Promyelocytes % (Man) 0 Blast Cells % (Manual) 0 Nucleated RBC % 2 H Metamyelocytes 0 D Hypochromia 0 Platelet Estimate Decreased Polychromasia 2+ Poikilocytosis 0 Anisocytosis 2+ Microcytosis 1+ Macrocytosis 1+ Spherocytes 2+ Tear Drop Cells 1+ [place] Cells 1+ PT with INR INR PTT (Actin FS) Fibrinogen 290.0 Puncture Site ABG pH ABG pCO2 at Pt Temp ABG pO2 at Pt Temp ABG HCO3 ABG O2 Sat (Measured) ABG O2 Content ABG Base Excess Vinny Test O2 Delivery Device Oxygen Flow Rate Vent Mode Vent Rate Mechanical Rate PEEP Pressure Support Vent Sodium 141 Potassium 4.8 Chloride 114 H Carbon Dioxide 19 L Anion Gap 9 BUN 52 H Creatinine 2.7 H Creat Clearance w eGFR 22.91 Random Glucose 174 H Lactic Acid Calcium 6.5 L* Phosphorus 3.8 Magnesium 2.4 Total Bilirubin 0.7 AST 54 H ALT 45 Alkaline Phosphatase 145 H Troponin I 0.19 H Total Protein 8.2 Albumin 2.6 L IgG 02/18/18 02/18/18 06:00 06:00 WBC RBC Hgb Hct MCV MCH MCHC RDW Plt Count MPV Absolute Neuts (auto) Neutrophils % Neutrophils % (Manual) Band Neutrophils % Lymphocytes % Lymphocytes % (Manual) Monocytes % Monocytes % (Manual) Eosinophils % Eosinophils % (Manual) Basophils % Basophils % (Manual) Myelocytes % (Man) Promyelocytes % (Man) Blast Cells % (Manual) Nucleated RBC % Metamyelocytes Hypochromia Platelet Estimate Polychromasia Poikilocytosis Anisocytosis Microcytosis Macrocytosis Spherocytes Tear Drop Cells [place] Cells PT with INR INR PTT (Actin FS) Fibrinogen Puncture Site Right radial ABG pH 7.21 L* ABG pCO2 at Pt Temp 45.4 H ABG pO2 at Pt Temp 390.0 H* D ABG HCO3 17.6 L ABG O2 Sat (Measured) 99.3 H ABG O2 Content 13.3 L ABG Base Excess -9.2 L Vinny Test Positive O2 Delivery Device Vent Oxygen Flow Rate 100% Vent Mode A/c Vent Rate 14 Mechanical Rate Yes PEEP 5.0 Pressure Support Vent 500 Sodium Potassium Chloride Carbon Dioxide Anion Gap BUN Creatinine Creat Clearance w eGFR Random Glucose Lactic Acid 0.7 Calcium Phosphorus Magnesium Total Bilirubin AST ALT Alkaline Phosphatase Troponin I Total Protein Albumin IgG Active Medications Generic Name Dose Route Start Last Admin Trade Name Freq PRN Reason Stop Dose Admin Acetaminophen 650 mg 02/08/18 05:44 02/12/18 18:10 Tylenol Suppository - [place] 650 mg Q6H PRN Administration FEVER Acetaminophen 650 mg 02/17/18 14:09 Tylenol - PO Q6H PRN PAIN LEVEL 1 - 3 Allopurinol 100 mg 02/16/18 10:00 02/18/18 09:44 Zyloprim - PO 100 mg BID [facility] Administration Chlorhexidine Gluconate 15 ml 02/17/18 23:45 02/18/18 09:44 Peridex - MM 15 ml BID [facility] Administration Cholecalciferol 1,000 unit 02/25/18 10:00 Vitamin D3 - PO DAILY [facility] Dexamethasone Sodium Phosphate 10 mg 02/17/18 12:15 02/18/18 09:47 Decadron Injection - IVPUSH 10 mg BID [facility] Administration Diphenhydramine HCl 25 mg 02/16/18 12:00 Benadryl Injection - IVPB ONCE PRN DURING PLASMAPHERESIS Ergocalciferol 8,000 units 02/18/18 10:00 Drisdol Oral Solution - PO 02/24/18 08:37 DAILY [facility] Heparin Sodium (Porcine) 5 ml 02/14/18 15:26 Hep-Lock - IVPUSH PRN PRN Heparin Heparin Sodium (Porcine) 1,000 unit 02/15/18 06:38 Heparin - IVPUSH PRN PRN Heparin Heparin Sodium (Porcine) 5,000 unit 02/15/18 06:38 Heparin - IVPUSH PRN PRN Heparin Fentanyl 500 mcg/ Dextrose 100 mls @ 5 mls/hr 02/14/18 11:45 02/18/18 09:00 IVPB 25 mcg/hr TITR [facility] 5 mls/hr Titration Protocol 25 MCG/HR Heparin Sodium/Dextrose 25,000 units in 500 mls @ 20 mls/hr 02/15/18 06:45 09:57 Heparin Infusion - IVPB 500 units/hr TITR [facility] 10 mls/hr Titration Protocol 1,000 UNITS/HR Ceftazidime 1 gm/ Dextrose 50 mls @ 200 mls/hr 02/18/18 12:00 IVPB DAILY [facility] Protocol Lactulose 20 gm 02/16/18 09:38 02/18/18 06:10 Cephulac (Oral Use) PO 20 gm TID [facility] Administration Metoprolol Tartrate 25 mg 02/16/18 13:15 02/18/18 09:44 Lopressor - PO 25 mg BID [facility] Administration Metoprolol Tartrate 5 mg 02/16/18 13:04 Lopressor Injection - IVPUSH Q8H PRN TACHYCARDIA Pantoprazole Sodium 40 mg 02/14/18 12:00 02/18/18 09:48 Protonix Iv IVPUSH 40 mg DAILY [facility] Administration Thiamine HCl 100 mg 02/06/18 22:12 02/18/18 09:44 Vitamin B1 - PO 100 mg DAILY [facility] Administration ASSESSMENT/PLAN: Problem List Low suspicion for Hyperviscosity Atrial Fibrillation with RVR AMS Acute Respiratory Failure Suspected Aspiration MELITA (acute kidney injury) Anemia No PTX on CXR PLAN: On ventilator support AC mode- PEEP 5 cm H2O Monitor vitals monitor intake - output repeat cxr in am repeat abg in am Monitor off sedation ABX coverage as per ID Rate control Plasmapheresis per Heme Enteral feeds protonix for gi prophylaxis Visit type - Emergency Visit Emergency Visit: Yes ED Registration Date: 02/06/18 Care time: The patient presented to the Emergency Department on the above date and was hospitalized for further evaluation of their emergent condition. - New Patient This patient is new to me today: Yes Date on this admission: 02/19/18 - Critical Care Critical Care patient: Yes Total Critical Care Time (in minutes): 45 Critical Care Statement: The care of this patient involved high complexity decision making to prevent further life threatening deterioration of the patient 's condition and/or to evaluate & treat vital organ system(s) failure or risk of failure.
[2018-02-18] MEDS ORDERED: PROPOFOL 1,000,000 MCG/100 ML VIAL ONE (14:13)
[2018-02-18] MEDS: HEPARIN INFUSION - 25,000 UNITS/500 ML INFUS.BAG IVPB SCH (15:31)
[2018-02-18] MEDS: PROPOFOL 1,000,000 MCG/100 ML VIAL IVPB SCH (15:35)
[2018-02-18] MEDS: ERGOCALCIFEROL 8,000 UNITS/ML DROPSBTL PO SCH ×2 (16:45→17:13)
[2018-02-18] MEDS: CEFTAZIDIME PENTAHYDRATE 1 GM in DEXTROSE 5%-WATER - 50 ML IVPB SCH (17:12)
[2018-02-19] MEDS ORDERED: fentaNYL CITRATE 250 MCG/5 ML VIAL ONE ×2 (04:33→23:40)
[2018-02-19 06:02] LABS: BASO % 0.2 % (0-2.0); EOS % 0.1 % (0-4.5); HEMATOCRIT 20.8 % (35.4-49); LYMPH % 13.2 % (8-40); MCHC 33.6 g/dl (32.0-35.9); MEAN CELL VOLUME 89.2 fl (80-96); MEAN PLT VOLUME 9.4 fl (7.5-11.1); MONO % 3.9 % (3.8-10.2); NEUT % 82.6 % (42.8-82.8); PLATELET COUNT 143 K/MM3 (134-434); RBC 2.33 M/mm3 (4.00-5.60); RDW 16.9 % (11.9-15.9); WHITE BLOOD COUNT 8.3 K/mm3 (4.0-10.0)
[2018-02-19] MEDS: FENTANYL INJECTION 500 MCG in DEXTROSE 5%-WATER - 90 ML IVPB SCH ×2 (06:26→21:04)
[2018-02-19] MEDS: LACTULOSE 20 GM/30 ML UDC (FOR ORAL USE ONLY) PO SCH ×3 (06:26→21:17)
[2018-02-19 06:31] LABS: ALBUMIN 2.3 g/dl (3.4-5.0); ALK PHOS 127 U/L (45-117); ANION GAP 7 MMOL/L (8-16); BILIRUBIN,TOTAL 0.2 mg/dL (0.2-1); BLOOD UREA NITROGEN 67 mg/dL (7-18); CHLORIDE 112 mmol/L (98-107); CO2 20 mmol/L (21-32); CREATININE 2.8 mg/dL (0.55-1.3); GLUCOSE,RANDOM 180 mg/dL (74-106); POTASSIUM 4.5 mmol/L (3.5-5.1); SGOT/AST 39 U/L (15-37); SGPT/ALT 45 U/L (13-61); SODIUM 139 mmol/L (136-145); TOT PROT 8.3 g/dl (6.4-8.2)
[2018-02-19 06:51] LABS: CALCIUM 6.4 mg/dL (8.5-10.1)
[2018-02-19] MEDS ORDERED: CALCIUM GLUCONATE 10% - 1,000 MG/10 ML VIAL IVPB ONE (08:14)
[2018-02-19 08:26] LABS: MAGNESIUM 2.5 mg/dL (1.8-2.4); PHOSPHOROUS 3.5 mg/dL (2.5-4.9)
[2018-02-19] MEDS ORDERED: PT OWN MED DRAWER 7, Y5N ONE (09:01)
[2018-02-19] MEDS: PROPOFOL 1,000,000 MCG/100 ML VIAL IVPB SCH ×2 (09:17→21:05)
[2018-02-19] MEDS: PANTOPRAZOLE SODIUM 40 MG VIAL IVPUSH SCH (09:18)
[2018-02-19] MEDS: CHLORHEXIDINE GLUCONATE 0.12% 15ML CUP MM SCH ×2 (09:18→21:17)
[2018-02-19] MEDS: ERGOCALCIFEROL 8,000 UNITS/ML DROPSBTL PO SCH (09:19)
[2018-02-19] MEDS: DEXAMETHASONE SOD PHOSPHATE 10 MG/1 ML VIAL IVPUSH SCH ×2 (09:20→21:17)
[2018-02-19] MEDS: METOPROLOL TARTRATE 25 MG TABLET (FP) PO SCH ×2 (09:21→21:17)
[2018-02-19] MEDS: ALLOPURINOL 100 MG TABLET (FP) PO SCH ×2 (09:22→21:17)
[2018-02-19] MEDS: THIAMINE HCL 100 MG TABLET (FP) PO SCH (09:22)
[2018-02-19] MEDS: CEFTAZIDIME PENTAHYDRATE 1 GM in DEXTROSE 5%-WATER - 50 ML IVPB SCH (09:30)
--- NOTE | 2018-02-19 09:49 | PN ---
Progress Note, Physician - Current Medication List Current Medications: Active Medications Acetaminophen (Tylenol Suppository -) 650 mg NC Q6H PRN PRN Reason: FEVER Last Admin: 02/12/18 18:10 Dose: 650 mg Acetaminophen (Tylenol -) 650 mg PO Q6H PRN PRN Reason: PAIN LEVEL 1 - 3 Allopurinol (Zyloprim -) 100 mg PO BID [facility] Last Admin: 02/19/18 09:22 Dose: 100 mg Chlorhexidine Gluconate (Peridex -) 15 ml MM BID [facility] Last Admin: 02/19/18 09:18 Dose: 15 ml Cholecalciferol (Vitamin D3 -) 1,000 unit PO DAILY [facility] Dexamethasone Sodium Phosphate (Decadron Injection -) 10 mg IVPUSH BID [facility] Last Admin: 02/19/18 09:20 Dose: 10 mg Diphenhydramine HCl (Benadryl Injection -) 25 mg IVPB ONCE PRN PRN Reason: DURING PLASMAPHERESIS Ergocalciferol (Drisdol Oral Solution -) 8,000 units PO DAILY [facility] Stop: 02/24/18 08:37 Last Admin: 02/19/18 09:19 Dose: 8,000 units Heparin Sodium (Porcine) (Hep-Lock -) 5 ml IVPUSH PRN PRN PRN Reason: Heparin Heparin Sodium (Porcine) (Heparin -) 1,000 unit IVPUSH PRN PRN PRN Reason: Heparin Heparin Sodium (Porcine) (Heparin -) 5,000 unit IVPUSH PRN PRN PRN Reason: Heparin Fentanyl 500 mcg/ Dextrose 100 mls @ 5 mls/hr IVPB TITR [facility]; Protocol Last Admin: 02/19/18 06:26 Dose: 25 mcg/hr, 5 mls/hr Heparin Sodium/Dextrose (Heparin Infusion -) 25,000 units in 500 mls @ 20 mls/ hr IVPB TITR [facility]; Protocol Last Admin: 02/18/18 15:31 Dose: 500 units/hr, 10 mls/hr Ceftazidime 1 gm/ Dextrose 50 mls @ 200 mls/hr IVPB DAILY [facility]; Protocol Last Admin: 02/19/18 09:30 Dose: 200 mls/hr Propofol (Diprivan -) 1,000,000 mcg in 100 mls @ 2.479 mls/hr IVPB TITR [facility]; Protocol Last Admin: 02/19/18 09:17 Dose: 7 mcg/kg/min, 3.471 mls/hr Lactulose (Cephulac (Oral Use)) 20 gm PO TID [facility] Last Admin: 02/19/18 06:26 Dose: 20 gm Metoprolol Tartrate (Lopressor -) 25 mg PO BID [facility] Last Admin: 02/19/18 09:21 Dose: Not Given Metoprolol Tartrate (Lopressor Injection -) 5 mg IVPUSH Q8H PRN PRN Reason: TACHYCARDIA Pantoprazole Sodium (Protonix Iv) 40 mg IVPUSH DAILY [facility] Last Admin: 02/19/18 09:18 Dose: 40 mg Thiamine HCl (Vitamin B1 -) 100 mg PO DAILY [facility] Last Admin: 02/19/18 09:22 Dose: 100 mg - Objective Vital Signs: Vital Signs Temperature 98.2 F 02/19/18 06:00 Pulse Rate 84 02/19/18 08:29 Respiratory Rate 14 02/19/18 08:42 Blood Pressure 106/66 02/19/18 08:00 O2 Sat by Pulse Oximetry (%) 97 02/19/18 08:42 Cardiovascular: Yes: S1 Respiratory: Yes: Mechanically Ventilated Gastrointestinal: Yes: Normal Bowel Sounds, Soft Neurological: Yes: Unresponsive (on sedation) Labs: CBC, BMP 02/19/18 05:30 02/19/18 05:30 INR, PTT INR 1.36 (0.83-1.09) H 02/18/18 06:00 Fibrinogen 290.0 mg/dL (238-498) 02/18/18 06:00 Problem List - Problems (1) Toxic metabolic encephalopathy Code(s): G92 - TOXIC ENCEPHALOPATHY (2) Cellulitis Code(s): L03.90 - CELLULITIS, UNSPECIFIED Qualifiers: Site of cellulitis: extremity Site of cellulitis of extremity: lower extremity Laterality: right Qualified Code(s): L03.115 - Cellulitis of right lower limb (3) Sepsis Code(s): A41.9 - SEPSIS, UNSPECIFIED ORGANISM (4) Artery occlusion Code(s): I70.90 - UNSPECIFIED ATHEROSCLEROSIS (5) Hypercalcemia Code(s): E83.52 - HYPERCALCEMIA (6) Paroxysmal atrial fibrillation Code(s): I48.0 - PAROXYSMAL ATRIAL FIBRILLATION (7) MELITA (acute kidney injury) Code(s): N17.9 - ACUTE KIDNEY FAILURE, UNSPECIFIED Assessment/Plan - Problems (1) MELITA (acute kidney injury) Assessment/Plan: -Nephrology on board -Cr stable -monitor trend -U/S renal/bladder unremarkable Code(s): N17.9 - ACUTE KIDNEY FAILURE, UNSPECIFIED (2) Atrial fibrillation with RVR Assessment/Plan: -On heparin drip -rate controlled -cardiology on board -Tele monitor Code(s): I48.91 - UNSPECIFIED ATRIAL FIBRILLATION (3) Sepsis Assessment/Plan: -upon admission -ID on board -Cultures: Microbiology 02/12/18 19:45 Blood - Peripheral Venous Blood Culture - Final NO GROWTH AFTER 5 DAYS INCUBATION 02/12/18 19:20 Blood - Peripheral Venous Blood Culture - Final NO GROWTH AFTER 5 DAYS INCUBATION 02/13/18 14:30 Sputum - Endotrachea Suction/Ventilator Gram Stain - Final 02/13/18 14:30 Sputum - Endotrachea Suction/Ventilator Sputum Culture - Preliminary Non Lactose Fermenting Gnb 02/13/18 14:30 Urine - Urine Brenner Legionella Antigen - Final 02/13/18 14:30 Urine - Urine Brenner Streptococcus pneumoniae Antigen (M - Final 02/06/18 17:02 Blood - Peripheral Venous Blood Culture - Final NO GROWTH AFTER 5 DAYS INCUBATION 02/06/18 17:02 Blood - Peripheral Venous Blood Culture - Final NO GROWTH AFTER 5 DAYS INCUBATION 02/06/18 17:02 Urine - Urine - Catheterized Urine Culture - Final NO GROWTH OBTAINED 02/07/18 19:15 Nasopharyngeal Swab Influenza Types A,B Antigen - Final 02/07/18 19:15 Nasopharyngeal Swab - Final -On IV Zosyn and Vanco Code(s): A41.9 - SEPSIS, UNSPECIFIED ORGANISM (4) Toxic metabolic encephalopathy Code(s): G92 - TOXIC ENCEPHALOPATHY (5) Altered mental status Assessment/Plan: -CT head x 2 negative -Seen by Neurology -multifactorial Code(s): R41.82 - ALTERED MENTAL STATUS, UNSPECIFIED (6) Anemia Assessment/Plan: chronic, at baseline -Check stool OB-pending -Iron profile, B12, thyroid profile unremarkable -monitor trend -Transfuse only if Hg <7.0 to avoid fluid overload as he is chronically anemic Code(s): D64.9 - ANEMIA, UNSPECIFIED
--- NOTE | 2018-02-19 10:02 | PN ---
Progress Note, Physician History of Present Illness: Poorly responsive off sedation on vent, rate-controlled afib resumed on lopressor and heparin gtt. - Current Medication List Current Medications: Active Medications Acetaminophen (Tylenol Suppository -) 650 mg [place] Q6H PRN PRN Reason: FEVER Last Admin: 02/12/18 18:10 Dose: 650 mg Acetaminophen (Tylenol -) 650 mg PO Q6H PRN PRN Reason: PAIN LEVEL 1 - 3 Allopurinol (Zyloprim -) 100 mg PO BID [facility] Last Admin: 02/19/18 09:22 Dose: 100 mg Chlorhexidine Gluconate (Peridex -) 15 ml MM BID [facility] Last Admin: 02/19/18 09:18 Dose: 15 ml Cholecalciferol (Vitamin D3 -) 1,000 unit PO DAILY [facility] Dexamethasone Sodium Phosphate (Decadron Injection -) 10 mg IVPUSH BID [facility] Last Admin: 02/19/18 09:20 Dose: 10 mg Diphenhydramine HCl (Benadryl Injection -) 25 mg IVPB ONCE PRN PRN Reason: DURING PLASMAPHERESIS Ergocalciferol (Drisdol Oral Solution -) 8,000 units PO DAILY [facility] Stop: 02/24/18 08:37 Last Admin: 02/19/18 09:19 Dose: 8,000 units Heparin Sodium (Porcine) (Hep-Lock -) 5 ml IVPUSH PRN PRN PRN Reason: Heparin Heparin Sodium (Porcine) (Heparin -) 1,000 unit IVPUSH PRN PRN PRN Reason: Heparin Heparin Sodium (Porcine) (Heparin -) 5,000 unit IVPUSH PRN PRN PRN Reason: Heparin Fentanyl 500 mcg/ Dextrose 100 mls @ 5 mls/hr IVPB TITR [facility]; Protocol Last Admin: 02/19/18 06:26 Dose: 25 mcg/hr, 5 mls/hr Heparin Sodium/Dextrose (Heparin Infusion -) 25,000 units in 500 mls @ 20 mls/ hr IVPB TITR [facility]; Protocol Last Admin: 02/18/18 15:31 Dose: 500 units/hr, 10 mls/hr Ceftazidime 1 gm/ Dextrose 50 mls @ 200 mls/hr IVPB DAILY [facility]; Protocol Last Admin: 02/19/18 09:30 Dose: 200 mls/hr Propofol (Diprivan -) 1,000,000 mcg in 100 mls @ 2.479 mls/hr IVPB TITR [facility]; Protocol Last Admin: 02/19/18 09:17 Dose: 7 mcg/kg/min, 3.471 mls/hr Lactulose (Cephulac (Oral Use)) 20 gm PO TID [facility] Last Admin: 02/19/18 06:26 Dose: 20 gm Metoprolol Tartrate (Lopressor -) 25 mg PO BID [facility] Last Admin: 02/19/18 09:21 Dose: Not Given Metoprolol Tartrate (Lopressor Injection -) 5 mg IVPUSH Q8H PRN PRN Reason: TACHYCARDIA Pantoprazole Sodium (Protonix Iv) 40 mg IVPUSH DAILY [facility] Last Admin: 02/19/18 09:18 Dose: 40 mg Thiamine HCl (Vitamin B1 -) 100 mg PO DAILY [facility] Last Admin: 02/19/18 09:22 Dose: 100 mg - Objective Vital Signs: Vital Signs Temperature 98.2 F 02/19/18 06:00 Pulse Rate 84 02/19/18 08:29 Respiratory Rate 14 02/19/18 08:42 Blood Pressure 106/66 02/19/18 08:00 O2 Sat by Pulse Oximetry (%) 97 02/19/18 08:42 Constitutional: Yes: No Distress, Calm Neck: Yes: Supple Cardiovascular: Yes: Pulse Irregular, Murmur (2/6 SM) Respiratory: Yes: Intubated, Mechanically Ventilated, Rhonchi Gastrointestinal: Yes: Normal Bowel Sounds, Soft Edema: No Labs: CBC, BMP 02/19/18 05:30 02/19/18 05:30 INR, PTT INR 1.36 (0.83-1.09) H 02/18/18 06:00 Fibrinogen 290.0 mg/dL (238-498) 02/18/18 06:00 - ....Imaging Chest X-ray: Report Reviewed (Stable changes) EKG: Report Reviewed (Tele: Afib) Problem List - Problems (1) Atrial fibrillation with RVR Code(s): I48.91 - UNSPECIFIED ATRIAL FIBRILLATION (2) [id number] kidney injury Code(s): N17.9 - ACUTE KIDNEY FAILURE, UNSPECIFIED; N18.9 - CHRONIC KIDNEY DISEASE, UNSPECIFIED Qualifiers: Acute renal failure type: unspecified Chronic kidney disease stage: unspecified stage Qualified Code(s): N17.9 - Acute kidney failure, unspecified ; N18.9 - Chronic kidney disease, unspecified (3) Demand ischemia Code(s): I24.8 - OTHER FORMS OF ACUTE ISCHEMIC HEART DISEASE (4) Hypercalcemia Code(s): E83.52 - HYPERCALCEMIA (5) Nonadherence to medication Code(s): Z91.14 - PATIENT'S OTHER NONCOMPLIANCE WITH MEDICATION REGIMEN (6) Paraproteinemia Code(s): D89.2 - HYPERGAMMAGLOBULINEMIA, UNSPECIFIED (7) Anticoagulant long-term use Code(s): Z79.01 - [facility]FP (CURRENT) USE OF ANTICOAGULANTS (8) Chronic thromboembolic disease Code(s): I74.9 - EMBOLISM AND THROMBOSIS OF UNSPECIFIED ARTERY (9) Coronary artery disease Code(s): I25.10 - ATHSCL HEART DISEASE OF [place] CORONARY ARTERY W/O ANG PCTRS Qualifiers: Coronary Disease-Associated Artery/Lesion type: [place] artery [place] vs. transplanted heart: [place] heart Associated angina: without angina Qualified Code(s): I25.10 - Atherosclerotic heart disease of [place] coronary artery without angina pectoris (10) Diastolic dysfunction without heart failure Code(s): I51.9 - HEART DISEASE, UNSPECIFIED (11) HTN (hypertension) Code(s): I10 - ESSENTIAL (PRIMARY) HYPERTENSION Qualifiers: Hypertension type: essential hypertension Qualified Code(s): I10 - Essential (primary) hypertension (12) Hypertrophic cardiomyopathy Code(s): I42.2 - OTHER HYPERTROPHIC CARDIOMYOPATHY (13) Hyperlipidemia Code(s): E78.5 - HYPERLIPIDEMIA, UNSPECIFIED Qualifiers: Hyperlipidemia type: pure hypercholesterolemia Qualified Code(s): E78.00 - Pure hypercholesterolemia, unspecified; E78.0 - Pure hypercholesterolemia (14) Multiple myeloma Code(s): C90.00 - MULTIPLE MYELOMA NOT HAVING ACHIEVED REMISSION Qualifiers: Multiple myeloma remission status: not in remission Qualified Code(s): C90.00 - Multiple myeloma not having achieved remission Assessment/Plan R&LHc at [facility] 04/20/2016 showing nonobstructive CAD, severe LV apical hypertrophic cardiomyopathy, mildly elevated right sided pressures, Mynx deployed right [employer]Y [employer]ISTANT access site. 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 Echocardiogram: 10/18/2017 Mod cLVH, severe PURVI, mod TR RVSP 50-60 mmHg, mod- severe MR Echocardiogram: 01/23/2018 Normal LV size with hyperdynamic LVEF 75%, mild BSH, normal RV size and fxn, severe LAE, mod-severe MR, mod TR 1. Acute hypoxic respiratory failure, suspected aspiration pneumonia 2. Toxic metabolic encephelopathy, possible hyperviscosity syndrome, sepsis 3. Acute on CKD (suspect myeloma kidney) 4. Hypercalcemia, paraproteinemia, anemia-> confirmed multiple myeloma, hyperviscosity syndrome 5. History of bilateral SFA occlusion post thrombectomy, referable to embolic disease related to persistent atrial fibrillation with [id number] score of 6, history of poor compliance with anticoagulation and medical F/U 6. Non obstructive CAD on R&c coronary angiography with demand ischemia 7. LV diastolic dysfunction related to apical hypertrophic cardiomyopathy, subendocardial ischemia, compensated/euvolemic 8. Persistent atrial fibrillation with RVR [id number] score of 6 on heparin gtt 9. Labile HTN 10. Poor compliance with medical therapy administration and medical F/U 11. Tobacco abuse 12. ETOH dependence PLAN: 1. Heparin gtt for now while off Xarelto 15 qd (renal dosing) 2. Lopressor 25 bid as hemodynamics tolerate 3. Post plasmapharesis per hematology input 4. Empiric renal-dosed abx course pending C&S 5. Enteral feeds, lactulose for hyperammonemia, monitor ammonia levels 6. Ventilator management, wean off sedation, considering GOC
--- NOTE | 2018-02-19 10:06 | PN ---
Progress Note, Physician Chief Complaint: The patient seen in the ICU. Still with diarrhea. Possibly related to the Lactulose. Intubated, and vent supported. Patient remains poorly responsive. Minimal response to pain. Maintains good urine output. IV fluids well tolerated. History of Present Illness: This is a 77 year old gentleman with hx of CKD, Afib on A/C, CAD, CKD, Hypertension, Hyperlipidemia, PVD who presented with AMS/Confusion and found to have MELITA. The patient is intubated and supported by mechanical vent. In ICU. Poorly responsive. received plasmapheresis, Calcium supplemets. - Current Medication List Current Medications: Active Medications Acetaminophen (Tylenol Suppository -) 650 mg SD Q6H PRN PRN Reason: FEVER Last Admin: 02/12/18 18:10 Dose: 650 mg Acetaminophen (Tylenol -) 650 mg PO Q6H PRN PRN Reason: PAIN LEVEL 1 - 3 Allopurinol (Zyloprim -) 100 mg PO BID [facility] Last Admin: 02/19/18 09:22 Dose: 100 mg Chlorhexidine Gluconate (Peridex -) 15 ml MM BID [facility] Last Admin: 02/19/18 09:18 Dose: 15 ml Cholecalciferol (Vitamin D3 -) 1,000 unit PO DAILY [facility] Dexamethasone Sodium Phosphate (Decadron Injection -) 10 mg IVPUSH BID [facility] Last Admin: 02/19/18 09:20 Dose: 10 mg Diphenhydramine HCl (Benadryl Injection -) 25 mg IVPB ONCE PRN PRN Reason: DURING PLASMAPHERESIS Ergocalciferol (Drisdol Oral Solution -) 8,000 units PO DAILY [facility] Stop: 02/24/18 08:37 Last Admin: 02/19/18 09:19 Dose: 8,000 units Heparin Sodium (Porcine) (Hep-Lock -) 5 ml IVPUSH PRN PRN PRN Reason: Heparin Heparin Sodium (Porcine) (Heparin -) 1,000 unit IVPUSH PRN PRN PRN Reason: Heparin Heparin Sodium (Porcine) (Heparin -) 5,000 unit IVPUSH PRN PRN PRN Reason: Heparin Fentanyl 500 mcg/ Dextrose 100 mls @ 5 mls/hr IVPB TITR [facility]; Protocol Last Admin: 02/19/18 06:26 Dose: 25 mcg/hr, 5 mls/hr Heparin Sodium/Dextrose (Heparin Infusion -) 25,000 units in 500 mls @ 20 mls/ hr IVPB TITR [facility]; Protocol Last Admin: 02/18/18 15:31 Dose: 500 units/hr, 10 mls/hr Ceftazidime 1 gm/ Dextrose 50 mls @ 200 mls/hr IVPB DAILY [facility]; Protocol Last Admin: 02/19/18 09:30 Dose: 200 mls/hr Propofol (Diprivan -) 1,000,000 mcg in 100 mls @ 2.479 mls/hr IVPB TITR [facility]; Protocol Last Admin: 02/19/18 09:17 Dose: 7 mcg/kg/min, 3.471 mls/hr Lactulose (Cephulac (Oral Use)) 20 gm PO TID [facility] Last Admin: 02/19/18 06:26 Dose: 20 gm Metoprolol Tartrate (Lopressor -) 25 mg PO BID [facility] Last Admin: 02/19/18 09:21 Dose: Not Given Metoprolol Tartrate (Lopressor Injection -) 5 mg IVPUSH Q8H PRN PRN Reason: TACHYCARDIA Pantoprazole Sodium (Protonix Iv) 40 mg IVPUSH DAILY [facility] Last Admin: 02/19/18 09:18 Dose: 40 mg Thiamine HCl (Vitamin B1 -) 100 mg PO DAILY [facility] Last Admin: 02/19/18 09:22 Dose: 100 mg - Objective Vital Signs: Vital Signs Temperature 98.2 F 02/19/18 06:00 Pulse Rate 84 02/19/18 08:29 Respiratory Rate 14 02/19/18 08:42 Blood Pressure 106/66 02/19/18 08:00 O2 Sat by Pulse Oximetry (%) 97 02/19/18 08:42 HENT: Yes: Atraumatic Neck: Yes: Trachea Midline Cardiovascular: Yes: Tachycardia, S1, S2 Respiratory: Yes: CTA Bilaterally, Rhonchi Gastrointestinal: Yes: Soft. No: Distention Neurological: Yes: Unresponsive Labs: CBC, BMP 02/19/18 05:30 02/19/18 05:30 INR, PTT INR 1.36 (0.83-1.09) H 02/18/18 06:00 Fibrinogen 290.0 mg/dL (238-498) 02/18/18 06:00 Problem List - Problems (1) Multiple myeloma Code(s): C90.00 - MULTIPLE MYELOMA NOT HAVING ACHIEVED REMISSION Qualifiers: Multiple myeloma remission status: not in remission Qualified Code(s): C90.00 - Multiple myeloma not having achieved remission (2) MELITA (acute kidney injury) Code(s): N17.9 - ACUTE KIDNEY FAILURE, UNSPECIFIED (3) Altered mental status Code(s): R41.82 - ALTERED MENTAL STATUS, UNSPECIFIED (4) Anemia Code(s): D64.9 - ANEMIA, UNSPECIFIED (5) Atrial fibrillation with RVR Code(s): I48.91 - UNSPECIFIED ATRIAL FIBRILLATION (6) Cellulitis Code(s): L03.90 - CELLULITIS, UNSPECIFIED Qualifiers: Site of cellulitis: extremity Site of cellulitis of extremity: lower extremity Laterality: right Qualified Code(s): L03.115 - Cellulitis of right lower limb (7) Hyperlipidemia Code(s): E78.5 - HYPERLIPIDEMIA, UNSPECIFIED Qualifiers: Hyperlipidemia type: pure hypercholesterolemia Qualified Code(s): E78.00 - Pure hypercholesterolemia, unspecified; E78.0 - Pure hypercholesterolemia (8) Sepsis Code(s): A41.9 - SEPSIS, UNSPECIFIED ORGANISM (9) Hypercalcemia Code(s): E83.52 - HYPERCALCEMIA Assessment/Plan This is a 77 year old gentleman with hx of CKD, Afib on A/C, CAD, CKD, Hypertension, Hyperlipidemia, PVD who presented with AMS/Confusion and found to have MELITA. The patient has IgG Myeloma. Serum Calcium had dropped to 6.5. Received Calcium supplements today also. Has progressive hyperchloremic Metabolic acidosis, most leikely related to the diarrhea. if Sodium Bicarb supplements are given, should consider large amounts of Calcium supplemets, to avoid sudden and severe hypocalcemia, to avoid tetany and seizure. Should consider Discontinuing Lactulose. The patient's mental status not easily explained. ? Most likely Anoxic encephalopathy. Will monitor the renal/ elctrolyte profile. Thank you. Juliann New MD
--- NOTE | 2018-02-19 11:15 | PN ---
Progress Note, Physician History of Present Illness: Intubated on mechanical ventilation Opens eyes to tactile stimulus but does not make eye contact Temps down Afebrile Repeat BC no growth Sputum c/s (R) xanthomonas - Current Medication List Current Medications: Active Medications Acetaminophen (Tylenol Suppository -) 650 mg [place] Q6H PRN PRN Reason: FEVER Last Admin: 02/12/18 18:10 Dose: 650 mg Acetaminophen (Tylenol -) 650 mg PO Q6H PRN PRN Reason: PAIN LEVEL 1 - 3 Allopurinol (Zyloprim -) 100 mg PO BID [facility] Last Admin: 02/19/18 09:22 Dose: 100 mg Chlorhexidine Gluconate (Peridex -) 15 ml MM BID [facility] Last Admin: 02/19/18 09:18 Dose: 15 ml Cholecalciferol (Vitamin D3 -) 1,000 unit PO DAILY [facility] Dexamethasone Sodium Phosphate (Decadron Injection -) 10 mg IVPUSH BID [facility] Last Admin: 02/19/18 09:20 Dose: 10 mg Diphenhydramine HCl (Benadryl Injection -) 25 mg IVPB ONCE PRN PRN Reason: DURING PLASMAPHERESIS Ergocalciferol (Drisdol Oral Solution -) 8,000 units PO DAILY [facility] Stop: 02/24/18 08:37 Last Admin: 02/19/18 09:19 Dose: 8,000 units Heparin Sodium (Porcine) (Hep-Lock -) 5 ml IVPUSH PRN PRN PRN Reason: Heparin Heparin Sodium (Porcine) (Heparin -) 1,000 unit IVPUSH PRN PRN PRN Reason: Heparin Heparin Sodium (Porcine) (Heparin -) 5,000 unit IVPUSH PRN PRN PRN Reason: Heparin Fentanyl 500 mcg/ Dextrose 100 mls @ 5 mls/hr IVPB TITR [facility]; Protocol Last Admin: 02/19/18 06:26 Dose: 25 mcg/hr, 5 mls/hr Heparin Sodium/Dextrose (Heparin Infusion -) 25,000 units in 500 mls @ 20 mls/ hr IVPB TITR [facility]; Protocol Last Admin: 02/18/18 15:31 Dose: 500 units/hr, 10 mls/hr Ceftazidime 1 gm/ Dextrose 50 mls @ 200 mls/hr IVPB DAILY [facility]; Protocol Last Admin: 02/19/18 09:30 Dose: 200 mls/hr Propofol (Diprivan -) 1,000,000 mcg in 100 mls @ 2.479 mls/hr IVPB TITR [facility]; Protocol Last Admin: 02/19/18 09:17 Dose: 7 mcg/kg/min, 3.471 mls/hr Lactulose (Cephulac (Oral Use)) 20 gm PO TID [facility] Last Admin: 02/19/18 06:26 Dose: 20 gm Metoprolol Tartrate (Lopressor -) 25 mg PO BID [facility] Last Admin: 02/19/18 09:21 Dose: Not Given Metoprolol Tartrate (Lopressor Injection -) 5 mg IVPUSH Q8H PRN PRN Reason: TACHYCARDIA Pantoprazole Sodium (Protonix Iv) 40 mg IVPUSH DAILY [facility] Last Admin: 02/19/18 09:18 Dose: 40 mg Thiamine HCl (Vitamin B1 -) 100 mg PO DAILY [facility] Last Admin: 02/19/18 09:22 Dose: 100 mg - Objective Vital Signs: Vital Signs Temperature 98.2 F 02/19/18 06:00 Pulse Rate 84 02/19/18 08:29 Respiratory Rate 14 02/19/18 08:42 Blood Pressure 106/66 02/19/18 08:00 O2 Sat by Pulse Oximetry (%) 97 02/19/18 08:42 Constitutional: Yes: No Distress Cardiovascular: Yes: Regular Rate and Rhythm, S1, S2 Respiratory: Yes: Mechanically Ventilated Gastrointestinal: Yes: Normal Bowel Sounds, Soft. No: Tenderness Edema: Yes Labs: CBC, BMP 02/19/18 05:30 02/19/18 05:30 INR, PTT INR 1.36 (0.83-1.09) H 02/18/18 06:00 Fibrinogen 290.0 mg/dL (238-498) 02/18/18 06:00 Assessment/Plan Respiratory failure RLL pneumonia Toxic metabolic encephalopathy Hypercalcemia Renal failure Myeloma Hyperviscosity syndrome Continue ceftazidime, adjusted for renal failure Ventilatory support
[2018-02-19 11:43] LABS: ANISOCYTOSIS 2+; MACROCYTOSIS 2+; PLATELET ESTIMATE DECREASED; TEAR DROP CELLS 1+
[2018-02-19] MEDS ORDERED: FUROSEMIDE 40 MG/4 ML INJECTABLE VIAL IVPUSH ONE (12:09)
--- NOTE | 2018-02-19 12:27 | PN ---
Teaching Attending Note Name of Resident: Sebastián Oneil ATTENDING PHYSICIAN STATEMENT I saw and evaluated the patient. I reviewed the resident's note and discussed the case with the resident. I agree with the resident's findings and plan as documented. SUBJECTIVE: Pt seen and examined in the ICU. Remains intubated, poorly responsive off sedation. Good tidal volumes on CPAP/PS but some accessory muscle use. OBJECTIVE: Vital Signs Period Temp Pulse Resp BP Sys/Ariza Pulse Ox Last 24 Hr 98.2 F-98.8 F 74-92 12-21 94-117/52-71 97-100 Intake & Output 02/16/18 02/17/18 02/18/18 02/19/18 23:59 23:59 23:59 23:59 Intake Total 2958 1630 2542 1003 Output Total 1450 1225 375 500 Balance 2665 189 6697 503 Weight 80.314 kg 81.675 kg 82.639 kg 83.971 kg Gen: intubated, poorly responsive, tachypneic Heart: RRR Lung: bilateral rhonchi Abd: soft, nontender Ext: no edema CBC, BMP 02/19/18 05:30 02/19/18 05:30 Active Medications Acetaminophen (Tylenol Suppository -) 650 mg [place] Q6H PRN PRN Reason: FEVER Last Admin: 02/12/18 18:10 Dose: 650 mg Acetaminophen (Tylenol -) 650 mg PO Q6H PRN PRN Reason: PAIN LEVEL 1 - 3 Allopurinol (Zyloprim -) 100 mg PO BID [facility] Last Admin: 02/19/18 09:22 Dose: 100 mg Chlorhexidine Gluconate (Peridex -) 15 ml MM BID [facility] Last Admin: 02/19/18 09:18 Dose: 15 ml Cholecalciferol (Vitamin D3 -) 1,000 unit PO DAILY [facility] Dexamethasone Sodium Phosphate (Decadron Injection -) 10 mg IVPUSH BID [facility] Last Admin: 02/19/18 09:20 Dose: 10 mg Diphenhydramine HCl (Benadryl Injection -) 25 mg IVPB ONCE PRN PRN Reason: DURING PLASMAPHERESIS Ergocalciferol (Drisdol Oral Solution -) 8,000 units PO DAILY [facility] Stop: 02/24/18 08:37 Last Admin: 02/19/18 09:19 Dose: 8,000 units Furosemide (Lasix Injection -) 60 mg IVPUSH ONCE ONE Stop: 02/19/18 12:10 Heparin Sodium (Porcine) (Hep-Lock -) 5 ml IVPUSH PRN PRN PRN Reason: Heparin Heparin Sodium (Porcine) (Heparin -) 1,000 unit IVPUSH PRN PRN PRN Reason: Heparin Heparin Sodium (Porcine) (Heparin -) 5,000 unit IVPUSH PRN PRN PRN Reason: Heparin Fentanyl 500 mcg/ Dextrose 100 mls @ 5 mls/hr IVPB TITR [facility]; Protocol Last Admin: 02/19/18 06:26 Dose: 25 mcg/hr, 5 mls/hr Heparin Sodium/Dextrose (Heparin Infusion -) 25,000 units in 500 mls @ 20 mls/ hr IVPB TITR [facility]; Protocol Last Admin: 02/18/18 15:31 Dose: 500 units/hr, 10 mls/hr Ceftazidime 1 gm/ Dextrose 50 mls @ 200 mls/hr IVPB DAILY [facility]; Protocol Last Admin: 02/19/18 09:30 Dose: 200 mls/hr Propofol (Diprivan -) 1,000,000 mcg in 100 mls @ 2.479 mls/hr IVPB TITR [facility]; Protocol Last Admin: 02/19/18 09:17 Dose: 7 mcg/kg/min, 3.471 mls/hr Lactulose (Cephulac (Oral Use)) 20 gm PO TID [facility] Last Admin: 02/19/18 06:26 Dose: 20 gm Metoprolol Tartrate (Lopressor -) 25 mg PO BID [facility] Last Admin: 02/19/18 09:21 Dose: Not Given Metoprolol Tartrate (Lopressor Injection -) 5 mg IVPUSH Q8H PRN PRN Reason: TACHYCARDIA Pantoprazole Sodium (Protonix Iv) 40 mg IVPUSH DAILY [facility] Last Admin: 02/19/18 09:18 Dose: 40 mg Thiamine HCl (Vitamin B1 -) 100 mg PO DAILY [facility] Last Admin: 02/19/18 09:22 Dose: 100 mg ASSESSMENT AND PLAN: Acute Hypoxic Respiratory Failure Altered Mental Status Pneumonia Multiple Myeloma Acute on Chronic Renal Failure Metabolic Acidosis LV Diastolic Dysfunction Atrial Fibrillation CAD +Troponins likely Demand Ischemia PAD Hyperlipidemia HTN - continue antibiotics - decadron per oncology - lasix today - monitor urine output, creatinine - replete lytes - rate control - continue anticoagulation - minimize sedation to assess mental status - spontaneous breathing trials as tolerated but would not extubate until mental status improved - enteral feeds - DVT/GI prophylaxis - continue ICU monitoring critical care time spent in reviewing chart, evaluating patient and formulating plan 35 min
--- NOTE | 2018-02-19 13:17 | PN ---
Progress Note (short form) - Note Progress Note: Patient seen and examined at bedside in the ICU Intubated mental status minimal to no improvement Vital Signs Temperature 98.2 F 02/19/18 06:00 Pulse Rate 84 02/19/18 08:29 Respiratory Rate 13 02/19/18 11:10 Blood Pressure 106/66 02/19/18 08:00 O2 Sat by Pulse Oximetry (%) 97 02/19/18 08:42 Intake & Output 02/18/18 02/19/18 02/19/18 23:59 11:59 23:59 Intake Total 1250 1003 Output Total 200 500 Balance 1050 503 Weight 83.971 kg Intake: IV 190 263 #20 RAC 02/18/18 57 DIPRIVAN - 1,000,000 mcg 10 35 In 100 ml @ 5 MCG/KG/MIN 2.479 mls/hr IVPB TITR [facility] Rx#:[id number] HEPARIN INFUSION - 25,000 120 114 units In 500 ml @ 1,000 UNITS/HR 20 mls/hr IVPB TITR [facility] Rx#:[id number] Sublimaze Injection - 500 60 57 Mcg In D5w - 90 ml @ 25 MCG/HR 5 mls/hr IVPB TITR [facility] Rx#:[id number] IVPB 300 Tube Feeding 540 540 Tube Irrigant 220 200 Output: Urine 200 500 Brenner 200 500 Other: Voiding Method Indwelling Catheter Indwelling Catheter Bowel Movement Yes Yes # Bowel Movements 3 2 Body Mass Index (BMI) 25.0 Weight Measurement Method Built in [facility] PE: Lying in bed intubated. Tries to open eyes to name. Less responsive overall from last Poor dentition PERRL senile arcus bilaterally Irregular No murmur soft non tender non distended 02/14/18 02/14/18 02/14/18 16:20 16:20 16:20 WBC 4.5 RBC 3.16 L Hgb 9.5 L Hct 28.5 L MCV 90.2 MCHC 33.5 RDW 15.7 Plt Count 130 L Neutrophils % 74.4 Lymphocytes % 20.5 D Monocytes % 3.4 L Eosinophils % 1.4 Basophils % 0.3 INR 2.07 H Sodium 143 Potassium 4.2 Chloride 114 H Carbon Dioxide 17 L Anion Gap 12 BUN 55 H Creatinine 2.1 H 02/15/18 02/15/18 05:30 05:30 WBC 4.8 RBC 3.03 L Hgb 9.0 L Hct 27.2 L MCV 89.9 MCHC 33.1 RDW 16.4 H Plt Count 117 L Neutrophils % 73.4 Lymphocytes % 20.9 Monocytes % 3.8 Eosinophils % 1.7 Basophils % 0.2 INR Sodium 140 Potassium 4.4 Chloride 114 H Carbon Dioxide 19 L Anion Gap 7 L BUN 52 H Creatinine 2.2 H 02/12/18 19:45 Blood Culture - Preliminary Blood - Peripheral Venous NO GROWTH OBTAINED AFTER 48 HOURS, INCUBATION TO CONTINUE FOR 3 DAYS. 02/12/18 19:20 Blood Culture - Preliminary Blood - Peripheral Venous NO GROWTH OBTAINED AFTER 48 HOURS, INCUBATION TO CONTINUE FOR 3 DAYS. 02/13/18 14:30 Gram Stain - Final Sputum - Endotrachea Suction/Ventilator Sputum Culture - Pending 02/13/18 14:30 Legionella Antigen - Final Urine - Urine Brenner Streptococcus pneumoniae Antigen (M - Final 02/06/18 17:02 Blood Culture - Final Blood - Peripheral Venous NO GROWTH AFTER 5 DAYS INCUBATION 02/06/18 17:02 Blood Culture - Final Blood - Peripheral Venous NO GROWTH AFTER 5 DAYS INCUBATION 02/06/18 17:02 Urine Culture - Final Urine - Urine - Catheterized NO GROWTH OBTAINED 02/07/18 19:15 Influenza Types A,B Antigen - Final Nasopharyngeal Swab - Final 77M with multiple medical problems presents to the hospital after being found down by neighbors found to have MELITA and hypercalcemia with altered mental status. Problem List: Altered mental status toxic metabolic encephalopathy Hypercalcemia likely from malignancy MELITA on CKD History of alcohol abuse HTN HLD CAD Afib diastolic dysfunction troponinemia Hypertrophic cardiomypoathy (apical) sepsis secondary to RLL pneumonia acute hypoxemic respiratory failure Vitamin D deficiency multiple myeloma Plan: Calcium WNL today Patient s/p pharesis SPEP noted total protein and globulins elevated Luis Lopez/lambda light chains-noted Luis Lopez/Lambda ratio > 100 consistent with Multiple myeloma M spike elevated elevated at 6.8 previously 4.7 . Baseline Immunoglobulins done at time of rapid repsonse second set shows decreased of IgG from about grams to about 3 grams after first pharesis. bone (metastatic) survey and if negative will get Bone scan.- when acute issues resolved Of note Bone scan may not show any lesions if it is from multiple myeloma but will sold solid tumors Can consider MRI of C/T/L spine if patient stops moving lower extremities or concern for lytic lesions of the spine. At this time the patient is moving his lower extremities so will hold off for now. PTH-borderline low appropriate given hypercalcemia, PTHrP low Vit D low ABx per ID replete calcium per ICU Palliative consult to discuss goals of care with family Thank you for this consult
--- NOTE | 2018-02-19 14:16 | PN ---
Physical Exam: SUBJECTIVE: Patient seen and examined at bedside. No acute events overnight. Spoke with Dr. Suero and the Onc team, we will hold plasmapharesis today. Patient remains intubated and despite being off sedation has a poor mental status. Spoke with his sister at length yesterday. Will continue to speak with her regarding goals of care. Sister Clara Mobley: [phone] - She is in [place] - She says they use to speak on a monthly basis. Last time they spoke was in the summer time. OBJECTIVE: Vital Signs Period Temp Pulse Resp BP Sys/Ariza Pulse Ox Last 24 Hr 98.2 F-98.8 F 74-92 12-21 94-117/52-71 97-100 GENERAL: The patient is intubated, not sedated, awake and poorly responsive, not alert, and not oriented. HEAD: Normal with no signs of trauma. EYES: PERRL, sclera anicteric, conjunctiva clear. ENT: Ears normal, nares patent, dry mucous membranes NECK: Trachea midline. LUNGS: bilateral diffuse rhonchi HEART: Regular rate and irregular rhythm. ABDOMEN: Soft, nondistended. EXTREMITIES: 2+ pulses, warm, well-perfused, no edema, scattered ulcers. NEUROLOGICAL: Cannot assess secondary to clinical condition. SKIN: Warm, dry, normal turgor, scattered ulcers on the legs Laboratory Results - last 24 hr 02/16/18 02/18/18 02/19/18 09:11 15:00 05:30 WBC RBC Hgb Hct MCV MCH MCHC RDW Plt Count MPV Absolute Neuts (auto) Neutrophils % Neutrophils % (Manual) Band Neutrophils % Lymphocytes % Lymphocytes % (Manual) Monocytes % Monocytes % (Manual) Eosinophils % Eosinophils % (Manual) Basophils % Basophils % (Manual) Myelocytes % (Man) Promyelocytes % (Man) Blast Cells % (Manual) Nucleated RBC % Metamyelocytes Hypochromia Platelet Estimate Polychromasia Poikilocytosis Basophilic Stippling Anisocytosis Microcytosis Macrocytosis Tear Drop Cells PTT (Actin FS) 75.6 H Sodium Potassium Chloride Carbon Dioxide Anion Gap BUN Creatinine Creat Clearance w eGFR Random Glucose Calcium Phosphorus Magnesium Total Bilirubin AST ALT Alkaline Phosphatase Total Protein Albumin Random Vancomycin 29.7 H Blood Type B POSITIVE Antibody Screen Negative Crossmatch See Detail 02/19/18 02/19/18 02/19/18 05:30 05:30 05:30 WBC 8.3 RBC 2.33 L Hgb 7.0 L Hct 20.8 L MCV 89.2 MCH 30.0 MCHC 33.6 RDW 16.9 H Plt Count 143 MPV 9.4 Absolute Neuts (auto) 6.9 Neutrophils % 82.6 Neutrophils % (Manual) 72.4 Band Neutrophils % 4.1 Lymphocytes % 13.2 D Lymphocytes % (Manual) 16.3 D Monocytes % 3.9 Monocytes % (Manual) 3 L Eosinophils % 0.1 Eosinophils % (Manual) 0.0 D Basophils % 0.2 Basophils % (Manual) 0.0 Myelocytes % (Man) 0 D Promyelocytes % (Man) 0 Blast Cells % (Manual) 0 Nucleated RBC % 2 H Metamyelocytes 3 H D Hypochromia 2+ Platelet Estimate Decreased Polychromasia 2+ Poikilocytosis 0 Basophilic Stippling 2+ Anisocytosis 2+ Microcytosis 1+ Macrocytosis 2+ Tear Drop Cells 1+ PTT (Actin FS) 56.2 H Sodium 139 Potassium 4.5 Chloride 112 H Carbon Dioxide 20 L Anion Gap 7 L BUN 67 H Creatinine 2.8 H Creat Clearance w eGFR 21.97 Random Glucose 180 H Calcium 6.4 L* Phosphorus 3.5 Magnesium 2.5 H Total Bilirubin 0.2 AST 39 H ALT 45 Alkaline Phosphatase 127 H Total Protein 8.3 H Albumin 2.3 L Random Vancomycin Blood Type Antibody Screen Crossmatch Active Medications Generic Name Dose Route Start Last Admin Trade Name Freq PRN Reason Stop Dose Admin Acetaminophen 650 mg 02/08/18 05:44 02/12/18 18:10 Tylenol Suppository - SC 650 mg Q6H PRN Administration FEVER Acetaminophen 650 mg 02/17/18 14:09 Tylenol - PO Q6H PRN PAIN LEVEL 1 - 3 Allopurinol 100 mg 02/16/18 10:00 02/19/18 09:22 Zyloprim - PO 100 mg BID [facility] Administration Chlorhexidine Gluconate 15 ml 02/17/18 23:45 02/19/18 09:18 Peridex - MM 15 ml BID [facility] Administration Cholecalciferol 1,000 unit 02/25/18 10:00 Vitamin D3 - PO DAILY [facility] Dexamethasone Sodium Phosphate 10 mg 02/17/18 12:15 11/12/18 09:20 Decadron Injection - IVPUSH 10 mg BID [facility] Administration Diphenhydramine HCl 25 mg 02/16/18 12:00 Benadryl Injection - IVPB ONCE PRN DURING PLASMAPHERESIS Ergocalciferol 8,000 units 02/18/18 10:00 02/19/18 09:19 Drisdol Oral Solution - PO 02/24/18 08:37 8,000 units DAILY [facility] Administration Heparin Sodium (Porcine) 5 ml 02/14/18 15:26 Hep-Lock - IVPUSH PRN PRN Heparin Heparin Sodium (Porcine) 1,000 unit 02/15/18 06:38 Heparin - IVPUSH PRN PRN Heparin Heparin Sodium (Porcine) 5,000 unit 02/15/18 06:38 Heparin - IVPUSH PRN PRN Heparin Fentanyl 500 mcg/ Dextrose 100 mls @ 5 mls/hr 02/14/18 11:45 02/19/18 06:26 IVPB 25 mcg/hr TITR [facility] 5 mls/hr Administration Protocol 25 MCG/HR Heparin Sodium/Dextrose 25,000 units in 500 mls @ 20 mls/hr 02/15/18 06:45 15:31 Heparin Infusion - IVPB 500 units/hr TITR [facility] 10 mls/hr Administration Protocol 1,000 UNITS/HR Ceftazidime 1 gm/ Dextrose 50 mls @ 200 mls/hr 02/18/18 12:00 02/19/18 09:30 IVPB 200 mls/hr DAILY [facility] Administration Protocol Propofol 1,000,000 mcg in 100 mls @ 2.479 mls/hr 02/18/18 13:45 02/19/18 09: 17 Diprivan - IVPB 7 mcg/kg/min TITR [facility] 3.471 mls/hr Administration Protocol 5 MCG/KG/MIN Lactulose 20 gm 02/16/18 09:38 02/19/18 06:26 Cephulac (Oral Use) PO 20 gm TID [facility] Administration Metoprolol Tartrate 25 mg 02/16/18 13:15 02/19/18 09:21 Lopressor - PO Not Given BID [facility] Metoprolol Tartrate 5 mg 02/16/18 13:04 Lopressor Injection - IVPUSH Q8H PRN TACHYCARDIA Pantoprazole Sodium 40 mg 02/14/18 12:00 02/19/18 09:18 Protonix Iv IVPUSH 40 mg DAILY [facility] Administration Thiamine HCl 100 mg 02/06/18 22:12 02/19/18 09:22 Vitamin B1 - PO 100 mg DAILY [facility] Administration ASSESSMENT/PLAN: Assessment: During sedation vacation today patient's mental status was unimpressive. He was not alert, oriented, or responsive. Got hold of the patient's Sister Clara Mobley: [phone] to discuss goals of care. Will discuss his DNR/DNI status. Speak about possible Trach tube. Patient has a daughter named Swathi Patient also has a son Savage (Named after father) - Unknown how to get in touch with them. Consult placed to palliative care and social services to help locate and get hold of children. - Spoke with Dr. mejia today (Covering for Dr. Kuo) He will come assess the patient tomorrow morning. Plan: ID: - Rhonchi heard on Lung auscultation - CXR shows pulmonary infiltrate, possible PNA vs empyema vs paramnemonic effusion - Abx coverage switched to ceftazidime. - ID on board Cardio: - Sporadically goes in and out of V-Tach - Cards recommends restarting Lopressor 25 mg BID PO - Afib w RVR: Patient is receiving metoprolol 5 mg PRN - diastolic dysfunction + hypertrophic cardiomyopathy - CAD with multiple stents - Cardio consulted and on board. Pulm: - Intubated - Patient has b/l pleural effusions. - Giving 60 of lasix today. - No pneumothorax - b/l diffuse rhonchi - infiltrate on CXR: Abx- ceftazidime Renal: - Acute on Chronic kidney injury - BUN: 67 Cr:2.8. Pre-renal etiology. - Renal consulted and on board. - Not receiving plasmapharesis today. Neuro: - Patient is not alert or oriented. He responds to painful stimuli. - Head CT showed no acute pathology - Spoke with Dr. mejia today (Covering for Dr. Kuo) He will come assess the patient tomorrow morning. Heme/Onc: - Patient's Hb dropped to 7. Transfusing 1 unit of PRBC today. - Patient not receiving plasmapharesis today. - Patient has hypocalcemia today - Will replete. - Paraproteinemia - Probable Multiple Myeloma, SPEP and UPEP suggestive. - Patient fulfills new criteria for multiple myeloma with free kappa/ free lambda light chain ratio of 432 (>100 is diagnostic of myeloma) - Burna/Lambda ratio > 100 consistent with Multiple myeloma - M spike elevated elevated at 6.8 previously 4.7 Endo: - Hypocalcemia - Glucose wnl - Parathyroid hormone WNL - PTH-borderline low appropriate given hypercalcemia, PTHrP low F/E/N: F: No standing fluids due to fluid overload in lungs E: Will replete lytes PRN N: tube feeds. Code Status: Full Code Dispo: Patient will continue to receive ICU level care Visit type - Emergency Visit Emergency Visit: Yes ED Registration Date: 02/06/18 Care time: The patient presented to the Emergency Department on the above date and was hospitalized for further evaluation of their emergent condition. - New Patient This patient is new to me today: No - Critical Care Critical Care patient: Yes Total Critical Care Time (in minutes): 36 Critical Care Statement: The care of this patient involved high complexity decision making to prevent further life threatening deterioration of the patient 's condition and/or to evaluate & treat vital organ system(s) failure or risk of failure.
[2018-02-19 18:49] LABS: BASO % 0.3 % (0-2.0); EOS % 0.2 % (0-4.5); HEMATOCRIT 21.8 % (35.4-49); HEMOGLOBIN 7.4 GM/dL (11.7-16.9); LYMPH % 12.6 % (8-40); MCH 30.3 pg (25.7-33.7); MEAN CELL VOLUME 89.1 fl (80-96); MEAN PLT VOLUME 9.6 fl (7.5-11.1); MONO % 4.5 % (3.8-10.2); NEUT % 82.4 % (42.8-82.8); PLATELET COUNT 161 K/MM3 (134-434); RBC 2.45 M/mm3 (4.00-5.60); RDW 16.4 % (11.9-15.9); WHITE BLOOD COUNT 7.7 K/mm3 (4.0-10.0)
[2018-02-19 19:26] LABS: ALBUMIN 2.2 g/dl (3.4-5.0); ALK PHOS 121 U/L (45-117); ANION GAP 6 MMOL/L (8-16); BILIRUBIN,TOTAL 0.3 mg/dL (0.2-1); BLOOD UREA NITROGEN 74 mg/dL (7-18); CHLORIDE 114 mmol/L (98-107); CO2 20 mmol/L (21-32); CREATININE 2.9 mg/dL (0.55-1.3); GLUCOSE,RANDOM 116 mg/dL (74-106); POTASSIUM 4.6 mmol/L (3.5-5.1); SGOT/AST 48 U/L (15-37); SGPT/ALT 54 U/L (13-61); SODIUM 140 mmol/L (136-145); TOT PROT 8.6 g/dl (6.4-8.2)
[2018-02-19 19:35] LABS: CALCIUM 6.5 mg/dL (8.5-10.1)
[2018-02-19 19:54] LABS: PLATELET ESTIMATE ADEQUATE
[2018-02-19] MEDS: HEPARIN INFUSION - 25,000 UNITS/500 ML INFUS.BAG IVPB SCH (21:03)
--- NOTE | 2018-02-19 22:00 | PN ---
Progress Note (short form) - Note Progress Note: Patient seen and examined Feels well Last Vital Signs Temp Pulse Resp BP Pulse Ox 99.6 F 109 H 18 96/56 L 100 02/16/18 02:00 02/16/18 06:06 02/16/18 06:39 02/16/18 06:06 02/15/18 20:33 Cor: RSR, No murmurs, No gallops Lungs: Clear to P&A Abd: Soft, Normal bowel sounds, No organomegaly Ext:No significant edema Labs/Meds reviewed A/P 77 year old gentleman with hx of CKD, Afib on A/C, CAD, CKD, Hypertension, Hyperlipidemia, PVD who presented with AMS/Confusion and found to have MELITA/ hypercalcemia/anemia acute desaturation Clinical picture concerning for myeloma SFLCA --[place] chains--2000s/ratio 438 IgG > 7grams IgM < 5 ? hyperviscosity due to paraproteinemia serum viscosity pending No improvement in mental status Holding pheresis On dexamethasone 20mg daily since 02/17 palliative care consult neurology follow up
[2018-02-20 05:51] LABS: BASO % 0.2 % (0-2.0); EOS % 0.1 % (0-4.5); HEMATOCRIT 24.4 % (35.4-49); HEMOGLOBIN 8.1 GM/dL (11.7-16.9); LYMPH % 12.5 % (8-40); MCH 29.9 pg (25.7-33.7); MCHC 33.3 g/dl (32.0-35.9); MEAN CELL VOLUME 89.6 fl (80-96); MEAN PLT VOLUME 9.1 fl (7.5-11.1); MONO % 5.1 % (3.8-10.2); NEUT % 82.1 % (42.8-82.8); PLATELET COUNT 177 K/MM3 (134-434); RBC 2.73 M/mm3 (4.00-5.60); RDW 16.3 % (11.9-15.9)
[2018-02-20] MEDS: FENTANYL INJECTION 500 MCG in DEXTROSE 5%-WATER - 90 ML IVPB SCH ×3 (06:32→20:47)
[2018-02-20] MEDS: LACTULOSE 20 GM/30 ML UDC (FOR ORAL USE ONLY) PO SCH ×3 (06:32→21:02)
--- NOTE | 2018-02-20 06:40 | PN ---
Progress Note (short form) - Note Progress Note: Chief Complaint: Events noted, notes reviewed, remains intubated, remains in atrial fibrillation on A/C with Heparin History of Present Illness: Seen and examined in the ICU. Events noted, notes reviewed, remains intubated, remains in atrial fibrillation on A/C with Heparin B-Blockers not administered due to hypotension [facility] performed 04/20/2016 revealed non-obstructive CAD, severe LV apical hypertrophic cardiomyopathy, mildly elevated right sided pressures/study is consistent with apical hypertrophy (spade-like) variant of hypertrophic cardiomyopathy Echocardiography dated 10/18/2017 Mod cLVH, severe PURVI, moderate TR RVSP 50-60 mmHg, moderate-severe MR Echocardiography dated 01/23/2018 Normal LV size with hyperdynamic LVEF 75%, mild BSH, normal RV size and function, severe LAE, moderate-severe MR, mod TR - Current Medication List Current Medications Acetaminophen (Tylenol Suppository -) 650 mg UT Q6H PRN PRN Reason: FEVER Last Admin: 02/12/18 18:10 Dose: 650 mg Acetaminophen (Tylenol -) 650 mg PO Q6H PRN PRN Reason: PAIN LEVEL 1 - 3 Allopurinol (Zyloprim -) 100 mg PO BID [facility] Last Admin: 02/19/18 21:17 Dose: 100 mg Chlorhexidine Gluconate (Peridex -) 15 ml MM BID [facility] Last Admin: 02/19/18 21:17 Dose: 15 ml Cholecalciferol (Vitamin D3 -) 1,000 unit PO DAILY [facility] Dexamethasone Sodium Phosphate (Decadron Injection -) 10 mg IVPUSH BID [facility] Last Admin: 02/19/18 21:17 Dose: 10 mg Diphenhydramine HCl (Benadryl Injection -) 25 mg IVPB ONCE PRN PRN Reason: DURING PLASMAPHERESIS Ergocalciferol (Drisdol Oral Solution -) 8,000 units PO DAILY [facility] Stop: 02/24/18 08:37 Last Admin: 02/19/18 09:19 Dose: 8,000 units Heparin Sodium (Porcine) (Hep-Lock -) 5 ml IVPUSH PRN PRN PRN Reason: Heparin Heparin Sodium (Porcine) (Heparin -) 1,000 unit IVPUSH PRN PRN PRN Reason: Heparin Heparin Sodium (Porcine) (Heparin -) 5,000 unit IVPUSH PRN PRN PRN Reason: Heparin Fentanyl 500 mcg/ Dextrose 100 mls @ 5 mls/hr IVPB TITR [facility]; Protocol Last Admin: 02/20/18 06:32 Dose: 50 mcg/hr, 10 mls/hr Heparin Sodium/Dextrose (Heparin Infusion -) 25,000 units in 500 mls @ 20 mls/ hr IVPB TITR [facility]; Protocol Last Admin: 02/19/18 21:03 Dose: Not Given Ceftazidime 1 gm/ Dextrose 50 mls @ 200 mls/hr IVPB DAILY [facility]; Protocol Last Admin: 02/19/18 09:30 Dose: 200 mls/hr Propofol (Diprivan -) 1,000,000 mcg in 100 mls @ 2.479 mls/hr IVPB TITR [facility]; Protocol Last Admin: 02/19/18 21:05 Dose: Not Given Lactulose (Cephulac (Oral Use)) 20 gm PO TID [facility] Last Admin: 02/20/18 06:32 Dose: 20 gm Metoprolol Tartrate (Lopressor -) 25 mg PO BID [facility] Last Admin: 02/19/18 21:17 Dose: Not Given Metoprolol Tartrate (Lopressor Injection -) 5 mg IVPUSH Q8H PRN PRN Reason: TACHYCARDIA Pantoprazole Sodium (Protonix Iv) 40 mg IVPUSH DAILY [facility] Last Admin: 02/19/18 09:18 Dose: 40 mg Thiamine HCl (Vitamin B1 -) 100 mg PO DAILY [facility] Last Admin: 02/19/18 09:22 Dose: 100 mg Review of Systems Unable to obtain - Objective Vital Signs: Last Vital Signs Temp Pulse Resp BP Pulse Ox 99.2 F 88 14 115/75 100 02/20/18 06:00 02/20/18 06:00 02/20/18 06:00 02/20/18 06:00 02/19/18 19:12 Intake & Output 02/17/18 02/18/18 02/19/18 02/20/18 23:59 23:59 23:59 23:59 Intake Total 1630 2542 2064 986 Output Total 1112 255 4543 300 Balance 405 2167 1064 686 Weight 180 lb 1 oz 182 lb 3 oz 185 lb 2 oz 185 lb Neck: Supple Negative JVD No Bruit Cardiovascular: S1 S2 Irregularly Irregular Grade 2/6 Systolic Murmur Apical Chest: Scattered Rhonchi Bilaterally Gastrointestinal: Soft Benign Normal Bowel Sounds Ext: No Edema 1+ Bilateral femoral Pulses Labs: ABG Results ABG pH 7.21 (7.35-7.45) L* 02/18/18 06:00 ABG pCO2 at Pt Temp 45.4 mmHg (35-45) H 02/18/18 06:00 ABG pO2 at Pt Temp 390.0 mmHg (70-100) H* D 02/18/18 06:00 ABG HCO3 17.6 meq/L (22-26) L 02/18/18 06:00 ABG O2 Sat (Measured) 99.3 % (90-98.9) H 02/18/18 06:00 ABG O2 Content 13.3 % vol (15-22) L 02/18/18 06:00 ABG Base Excess -9.2 meq/l (-2-2) L 02/18/18 06:00 CBC, BMP 02/20/18 05:10 BMP pending from this AM Hepatic Panel Total Bilirubin 0.3 mg/dL (0.2-1) 02/19/18 18:00 AST 48 U/L (15-37) H 02/19/18 18:00 ALT 54 U/L (13-61) 02/19/18 18:00 Alkaline Phosphatase 121 U/L (45-117) H 02/19/18 18:00 Albumin 2.2 g/dl (3.4-5.0) L 02/19/18 18:00 INR, PTT INR 1.36 (0.83-1.09) H 02/18/18 06:00 Fibrinogen 290.0 mg/dL (238-498) 02/18/18 06:00 Assessment/Plan ASSESSMENT: 1. Acute hypoxic respiratory failure, suspected aspiration pneumonia 2. Toxic metabolic encephelopathy, rule out CVA while off DOAC's, probable sepsis syndrome 3. Acute on CKD 4. Paraproteinemia, possible multiple myeloma 5. 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 CAD with evidence of demand ischemic injury, non obstructive CAD on R&[facility] coronary angiogrpahy angina pectoris 7. 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 Persistent atrial fibrillation [id number] score of 6 currently on Heparin therapy 9. HTN 10. Anemia 11. Poor compliance with medical therapy administration and medical F/U 12. Tobacco abuse 13. ETOH dependence PLAN: 1. Continue Heparin with caution and close monitoring of CBC/Hg, maintain Hg equal or > 8.0, pending extubation at which point resume Xarelto, therapy to be continued indefinitely unless it is absolutely contraindicated considering his [id number] score of 6 2. Continue Lopressor via NGT and hold if SBP equal or < 8.0 3. Antibiotics as per the primary team 4. Ventilator management as per the ICU team Mabel Rolle MD
[2018-02-20 07:03] LABS: ARTERIAL BLD GAS O2 SATURATION 96.3 % (90-98.9); ARTERIAL BLOOD GAS PCO2 41.7 mmHg (35-45); ARTERIAL BLOOD GAS PO2 92.8 mmHg (70-100); ARTERIAL BLOOD GAS pH 7.28 (7.35-7.45)
[2018-02-20 07:14] LABS: ALLENS TEST POSITIVE
[2018-02-20 07:55] LABS: ALBUMIN 2.2 g/dl (3.4-5.0); ALK PHOS 129 U/L (45-117); ANION GAP 5 MMOL/L (8-16); BILIRUBIN,TOTAL 0.2 mg/dL (0.2-1); BLOOD UREA NITROGEN 79 mg/dL (7-18); CHLORIDE 113 mmol/L (98-107); CO2 21 mmol/L (21-32); GLUCOSE,RANDOM 148 mg/dL (74-106); MAGNESIUM 2.6 mg/dL (1.8-2.4); PHOSPHOROUS 5.7 mg/dL (2.5-4.9); POTASSIUM 4.7 mmol/L (3.5-5.1); SGOT/AST 77 U/L (15-37); SGPT/ALT 67 U/L (13-61); SODIUM 139 mmol/L (136-145); TOT PROT 9.5 g/dl (6.4-8.2)
[2018-02-20 08:16] LABS: CALCIUM 6.7 mg/dL (8.5-10.1)
--- NOTE | 2018-02-20 08:37 | PN ---
Physical Exam: SUBJECTIVE: Patient seen and examined at bedside. He remains intubated and sedated. The sedation was stopped at 8:30 AM for a sedation vacation and so we can assess his mental status. No acute events overnight. - Slight worsening of Kidney function today. BUN: 79, Cr: 3.0 During the patient's sedation vacation yesterday he was on CPAP mode of the vent for ~ 5 hours without any respiratory difficulty and was consistently pulling tidal volumes greater than 700 and he was not tachypneic. We did not extubate him because we do not have a good grasp on his mental status and capabilities. Neurology was consulted yesterday and will come and visit the patient today. Palliative care consulted yesterday. I spoke with hsi sister Pauly antony who states that the patient has a son and daughter in the area. I placed a health and social care teacher consult to help obtain information about the son and daughter to try and move forward with a plan for advanced directives for the patient. OBJECTIVE: Vital Signs Period Temp Pulse Resp BP Sys/Ariza Pulse Ox Last 24 Hr 98.6 F-99.2 F 80-100 13-18 84-115/59-78 97-100 GENERAL: The patient is intubated and sedated. HEAD: Normal with no signs of trauma. EYES: PERRL, sclera anicteric, conjunctiva clear. ENT: Ears normal, nares patent, dry mucous membranes NECK: Trachea midline. LUNGS: bilateral diffuse rhonchi HEART: Regular rate and irregular rhythm. ABDOMEN: Soft, nondistended. EXTREMITIES: 2+ pulses, warm, well-perfused, no edema, scattered ulcers. NEUROLOGICAL: Cannot assess secondary to clinical condition. SKIN: Warm, dry, normal turgor, scattered ulcers on the legs Laboratory Results - last 24 hr 02/16/18 02/19/18 02/19/18 09:11 05:30 05:30 WBC RBC Hgb Hct MCV MCH MCHC RDW Plt Count MPV Absolute Neuts (auto) Neutrophils % Neutrophils % (Manual) 72.4 Band Neutrophils % 4.1 Lymphocytes % Lymphocytes % (Manual) 16.3 D Monocytes % Monocytes % (Manual) 3 L Eosinophils % Eosinophils % (Manual) 0.0 D Basophils % Basophils % (Manual) 0.0 Myelocytes % (Man) 0 D Promyelocytes % (Man) 0 Blast Cells % (Manual) 0 Nucleated RBC % Metamyelocytes 3 H D Hypochromia 2+ Platelet Estimate Decreased Polychromasia 2+ Poikilocytosis 0 Basophilic Stippling 2+ Anisocytosis 2+ Microcytosis 1+ Macrocytosis 2+ Tear Drop Cells 1+ PTT (Actin FS) Puncture Site ABG pH ABG pCO2 at Pt Temp ABG pO2 at Pt Temp ABG HCO3 ABG O2 Sat (Measured) ABG O2 Content ABG Base Excess Vinny Test O2 Delivery Device Oxygen Flow Rate Vent Rate Mechanical Rate PEEP Pressure Support Vent Sodium Potassium Chloride Carbon Dioxide Anion Gap BUN Creatinine Creat Clearance w eGFR Random Glucose Calcium Phosphorus 3.5 Magnesium 2.5 H Total Bilirubin AST ALT Alkaline Phosphatase Ammonia Total Protein Albumin Blood Type B POSITIVE Antibody Screen Negative Crossmatch See Detail 02/19/18 02/19/18 02/19/18 18:00 18:00 18:00 WBC 7.7 RBC 2.45 L Hgb 7.4 L Hct 21.8 L MCV 89.1 MCH 30.3 MCHC 34.0 RDW 16.4 H Plt Count 161 MPV 9.6 Absolute Neuts (auto) 6.3 Neutrophils % 82.4 Neutrophils % (Manual) 75.0 Band Neutrophils % 3.0 Lymphocytes % 12.6 Lymphocytes % (Manual) 14.0 Monocytes % 4.5 Monocytes % (Manual) 8 D Eosinophils % 0.2 D Eosinophils % (Manual) Basophils % 0.3 Basophils % (Manual) Myelocytes % (Man) Promyelocytes % (Man) Blast Cells % (Manual) Nucleated RBC % 3 H Metamyelocytes Hypochromia 1+ Platelet Estimate Adequate Polychromasia Poikilocytosis Basophilic Stippling Anisocytosis Microcytosis Macrocytosis Tear Drop Cells PTT (Actin FS) Puncture Site ABG pH ABG pCO2 at Pt Temp ABG pO2 at Pt Temp ABG HCO3 ABG O2 Sat (Measured) ABG O2 Content ABG Base Excess Vinny Test O2 Delivery Device Oxygen Flow Rate Vent Rate Mechanical Rate PEEP Pressure Support Vent Sodium 140 Potassium 4.6 Chloride 114 H Carbon Dioxide 20 L Anion Gap 6 L BUN 74 H Creatinine 2.9 H Creat Clearance w eGFR 21.10 Random Glucose 116 H Calcium 6.5 L* Phosphorus Magnesium Total Bilirubin 0.3 AST 48 H ALT 54 Alkaline Phosphatase 121 H Ammonia 90.40 H Total Protein 8.6 H Albumin 2.2 L Blood Type Antibody Screen Crossmatch 02/20/18 02/20/18 02/20/18 05:10 05:10 05:10 WBC 9.0 RBC 2.73 L Hgb 8.1 L Hct 24.4 L MCV 89.6 MCH 29.9 MCHC 33.3 RDW 16.3 H Plt Count 177 MPV 9.1 Absolute Neuts (auto) 7.4 Neutrophils % 82.1 Neutrophils % (Manual) Band Neutrophils % Lymphocytes % 12.5 Lymphocytes % (Manual) Monocytes % 5.1 Monocytes % (Manual) Eosinophils % 0.1 Eosinophils % (Manual) Basophils % 0.2 Basophils % (Manual) Myelocytes % (Man) Promyelocytes % (Man) Blast Cells % (Manual) Nucleated RBC % 3 H Metamyelocytes Hypochromia Platelet Estimate Polychromasia Poikilocytosis Basophilic Stippling Anisocytosis Microcytosis Macrocytosis Tear Drop Cells PTT (Actin FS) 55.9 H Puncture Site ABG pH ABG pCO2 at Pt Temp ABG pO2 at Pt Temp ABG HCO3 ABG O2 Sat (Measured) ABG O2 Content ABG Base Excess Vinny Test O2 Delivery Device Oxygen Flow Rate Vent Rate Mechanical Rate PEEP Pressure Support Vent Sodium 139 Potassium 4.7 Chloride 113 H Carbon Dioxide 21 Anion Gap 5 L BUN 79 H Creatinine 3.0 H Creat Clearance w eGFR 20.29 Random Glucose 148 H Calcium 6.7 L* Phosphorus 5.7 H Magnesium 2.6 H Total Bilirubin 0.2 AST 77 H ALT 67 H Alkaline Phosphatase 129 H Ammonia Total Protein 9.5 H Albumin 2.2 L Blood Type Antibody Screen Crossmatch 02/20/18 06:00 WBC RBC Hgb Hct MCV MCH MCHC RDW Plt Count MPV Absolute Neuts (auto) Neutrophils % Neutrophils % (Manual) Band Neutrophils % Lymphocytes % Lymphocytes % (Manual) Monocytes % Monocytes % (Manual) Eosinophils % Eosinophils % (Manual) Basophils % Basophils % (Manual) Myelocytes % (Man) Promyelocytes % (Man) Blast Cells % (Manual) Nucleated RBC % Metamyelocytes Hypochromia Platelet Estimate Polychromasia Poikilocytosis Basophilic Stippling Anisocytosis Microcytosis Macrocytosis Tear Drop Cells PTT (Actin FS) Puncture Site Right radial ABG pH 7.28 L ABG pCO2 at Pt Temp 41.7 ABG pO2 at Pt Temp 92.8 D ABG HCO3 18.8 L ABG O2 Sat (Measured) 96.3 ABG O2 Content 11.3 L ABG Base Excess -7.0 L Vinny Test Positive O2 Delivery Device Mech vent Oxygen Flow Rate 40 Vent Rate 14 Mechanical Rate Y PEEP 5.0 Pressure Support Vent 500 Sodium Potassium Chloride Carbon Dioxide Anion Gap BUN Creatinine Creat Clearance w eGFR Random Glucose Calcium Phosphorus Magnesium Total Bilirubin AST ALT Alkaline Phosphatase Ammonia Total Protein Albumin Blood Type Antibody Screen Crossmatch Active Medications Generic Name Dose Route Start Last Admin Trade Name Freq PRN Reason Stop Dose Admin Acetaminophen 650 mg 02/08/18 05:44 02/12/18 18:10 Tylenol Suppository - SD 650 mg Q6H PRN Administration FEVER Acetaminophen 650 mg 02/17/18 14:09 Tylenol - PO Q6H PRN PAIN LEVEL 1 - 3 Allopurinol 100 mg 02/16/18 10:00 02/19/18 21:17 Zyloprim - PO 100 mg BID [facility] Administration Calcium Gluconate 1,000 mg 02/20/18 08:18 Calcium Gluconate 10% - IVPB 02/20/18 08:19 ONCE ONE Chlorhexidine Gluconate 15 ml 02/17/18 23:45 02/19/18 21:17 Peridex - MM 15 ml BID CHELLY Administration Cholecalciferol 1,000 unit 02/25/18 10:00 Vitamin D3 - PO DAILY [facility] Dexamethasone Sodium Phosphate 10 mg 02/17/18 12:15 02/19/18 21:17 Decadron Injection - IVPUSH 10 mg BID [facility] Administration Diphenhydramine HCl 25 mg 02/16/18 12:00 Benadryl Injection - IVPB ONCE PRN DURING PLASMAPHERESIS Ergocalciferol 8,000 units 02/18/18 10:00 02/19/18 09:19 Drisdol Oral Solution - PO 02/24/18 08:37 8,000 units DAILY [facility] Administration Heparin Sodium (Porcine) 5 ml 02/14/18 15:26 Hep-Lock - IVPUSH PRN PRN Heparin Heparin Sodium (Porcine) 1,000 unit 02/15/18 06:38 Heparin - IVPUSH PRN PRN Heparin Heparin Sodium (Porcine) 5,000 unit 02/15/18 06:38 Heparin - IVPUSH PRN PRN Heparin Fentanyl 500 mcg/ Dextrose 100 mls @ 5 mls/hr 02/14/18 11:45 02/20/18 06:32 IVPB 50 mcg/hr TITR CHELLY 10 mls/hr Administration Protocol 25 MCG/HR Heparin Sodium/Dextrose 25,000 units in 500 mls @ 20 mls/hr 02/15/18 06:45 21:03 Heparin Infusion - IVPB Not Given TITR CHELLY Protocol 1,000 UNITS/HR Ceftazidime 1 gm/ Dextrose 50 mls @ 200 mls/hr 02/18/18 12:00 02/19/18 09:30 IVPB 200 mls/hr DAILY [facility] Administration Protocol Propofol 1,000,000 mcg in 100 mls @ 2.479 mls/hr 02/18/18 13:45 02/19/18 21: 05 Diprivan - IVPB Not Given TITR [facility] Protocol 5 MCG/KG/MIN Lactulose 20 gm 02/16/18 09:38 02/20/18 06:32 Cephulac (Oral Use) PO 20 gm TID [facility] Administration Metoprolol Tartrate 5 mg 02/16/18 13:04 Lopressor Injection - IVPUSH Q8H PRN TACHYCARDIA Metoprolol Tartrate 25 mg 02/20/18 10:00 Lopressor - PO BID [facility] Pantoprazole Sodium 40 mg 02/14/18 12:00 02/19/18 09:18 Protonix Iv IVPUSH 40 mg DAILY [facility] Administration Thiamine HCl 100 mg 02/06/18 22:12 02/19/18 09:22 Vitamin B1 - PO 100 mg DAILY [facility] Administration ASSESSMENT/PLAN: Assessment: Not much has changed since yesterday. He was able to tolerate CPAP mode of the vent for 5 hours without any respiratory distress. He was not tachypneic, and was consistently pulling tidal volumes greater than 700. We did not extubate because we couldn't assess his mental status. Patient has a daughter named Swathi Patient also has a son Savage (Named after father) - Unknown how to get in touch with them. - tray worker consult placed. Trying to get hold of children - Neuro consult placed. (Dr. Mejia will come today) - Palliative care consult placed Plan: ID: - Rhonchi heard on Lung auscultation - CXR shows pulmonary infiltrate, possible PNA vs empyema vs paramnemonic effusion - Abx coverage switched to ceftazidime. - ID on board Cardio: - Sporadically goes in and out of V-Tach - Cards recommends restarting Lopressor 25 mg BID PO - Afib w RVR: Patient is receiving metoprolol 5 mg PRN - diastolic dysfunction + hypertrophic cardiomyopathy - CAD with multiple stents - Cardio consulted and on board. Pulm: - Intubated - Patient has b/l pleural effusions. - Giving 60 of lasix today. - No pneumothorax - b/l diffuse rhonchi - infiltrate on CXR: Abx- ceftazidime Renal: - Acute on Chronic kidney injury - BUN: 79 Cr:3.0. Pre-renal etiology. - Renal consulted and on board. Neuro: - Patient is not alert or oriented. He occasionally responds to painful stimuli. - Head CT showed no acute pathology - Dr. mejia (Covering for Dr. Kuo) will come assess the patient. Heme/Onc: - Patient's Hb dropped to 7 two days prior. Transfused 1 unit of PRBC. Today hb up to 8.1 - Will transfuse tp keep hb > 8 - Patient not receiving plasmapharesis today. - Patient has hypocalcemia today - Will replete. - Paraproteinemia - Probable Multiple Myeloma, SPEP and UPEP suggestive. - Patient fulfills new criteria for multiple myeloma with free kappa/ free lambda light chain ratio of 432 (>100 is diagnostic of myeloma) - Picacho/Lambda ratio > 100 consistent with Multiple myeloma - M spike elevated elevated at 6.8 previously 4.7 Endo: - Hypocalcemia - Glucose wnl - Parathyroid hormone WNL - PTH-borderline low appropriate given hypercalcemia, PTHrP low F/E/N: F: No standing fluids due to fluid overload in lungs E: Will replete lytes PRN N: tube feeds. Code Status: Full Code - Continue speaking with family for goals of care. Dispo: Patient will continue to receive ICU level care Visit type - Emergency Visit Emergency Visit: Yes ED Registration Date: 02/06/18 Care time: The patient presented to the Emergency Department on the above date and was hospitalized for further evaluation of their emergent condition. - New Patient This patient is new to me today: No - Critical Care Critical Care patient: Yes Total Critical Care Time (in minutes): 36 Critical Care Statement: The care of this patient involved high complexity decision making to prevent further life threatening deterioration of the patient 's condition and/or to evaluate & treat vital organ system(s) failure or risk of failure.
[2018-02-20] MEDS ORDERED: CALCIUM GLUCONATE 10% - 1,000 MG/10 ML VIAL IVPB ONE (08:45)
--- NOTE | 2018-02-20 09:24 | PN ---
Progress Note, Physician - Current Medication List Current Medications: Active Medications Acetaminophen (Tylenol Suppository -) 650 mg OK Q6H PRN PRN Reason: FEVER Last Admin: 02/12/18 18:10 Dose: 650 mg Acetaminophen (Tylenol -) 650 mg PO Q6H PRN PRN Reason: PAIN LEVEL 1 - 3 Allopurinol (Zyloprim -) 100 mg PO BID [facility] Last Admin: 02/19/18 21:17 Dose: 100 mg Chlorhexidine Gluconate (Peridex -) 15 ml MM BID [facility] Last Admin: 02/19/18 21:17 Dose: 15 ml Cholecalciferol (Vitamin D3 -) 1,000 unit PO DAILY [facility] Dexamethasone Sodium Phosphate (Decadron Injection -) 10 mg IVPUSH BID [facility] Last Admin: 02/19/18 21:17 Dose: 10 mg Diphenhydramine HCl (Benadryl Injection -) 25 mg IVPB ONCE PRN PRN Reason: DURING PLASMAPHERESIS Ergocalciferol (Drisdol Oral Solution -) 8,000 units PO DAILY [facility] Stop: 02/24/18 08:37 Last Admin: 02/19/18 09:19 Dose: 8,000 units Heparin Sodium (Porcine) (Hep-Lock -) 5 ml IVPUSH PRN PRN PRN Reason: Heparin Heparin Sodium (Porcine) (Heparin -) 1,000 unit IVPUSH PRN PRN PRN Reason: Heparin Heparin Sodium (Porcine) (Heparin -) 5,000 unit IVPUSH PRN PRN PRN Reason: Heparin Fentanyl 500 mcg/ Dextrose 100 mls @ 5 mls/hr IVPB TITR CHELLY; Protocol Last Admin: 02/20/18 06:32 Dose: 50 mcg/hr, 10 mls/hr Heparin Sodium/Dextrose (Heparin Infusion -) 25,000 units in 500 mls @ 20 mls/ hr IVPB TITR CHELLY; Protocol Last Admin: 02/19/18 21:03 Dose: Not Given Ceftazidime 1 gm/ Dextrose 50 mls @ 200 mls/hr IVPB DAILY [facility]; Protocol Last Admin: 02/19/18 09:30 Dose: 200 mls/hr Propofol (Diprivan -) 1,000,000 mcg in 100 mls @ 2.479 mls/hr IVPB TITR CHELLY; Protocol Last Admin: 02/19/18 21:05 Dose: Not Given Lactulose (Cephulac (Oral Use)) 20 gm PO TID [facility] Last Admin: 02/20/18 06:32 Dose: 20 gm Metoprolol Tartrate (Lopressor Injection -) 5 mg IVPUSH Q8H PRN PRN Reason: TACHYCARDIA Metoprolol Tartrate (Lopressor -) 25 mg PO BID [facility] Pantoprazole Sodium (Protonix Iv) 40 mg IVPUSH DAILY [facility] Last Admin: 02/19/18 09:18 Dose: 40 mg Thiamine HCl (Vitamin B1 -) 100 mg PO DAILY [facility] Last Admin: 02/19/18 09:22 Dose: 100 mg - Objective Vital Signs: Vital Signs Temperature 99.2 F 02/20/18 06:00 Pulse Rate 88 02/20/18 06:00 Respiratory Rate 16 02/20/18 06:30 Blood Pressure 115/75 02/20/18 06:00 O2 Sat by Pulse Oximetry (%) 100 02/19/18 19:12 Cardiovascular: Yes: S1, S2 Respiratory: Yes: Mechanically Ventilated Gastrointestinal: Yes: Normal Bowel Sounds, Soft Labs: CBC, BMP 02/20/18 05:10 02/20/18 05:10 INR, PTT INR 1.36 (0.83-1.09) H 02/18/18 06:00 Fibrinogen 290.0 mg/dL (238-498) 02/18/18 06:00 Problem List - Problems (1) Toxic metabolic encephalopathy Code(s): G92 - TOXIC ENCEPHALOPATHY (2) Cellulitis Code(s): L03.90 - CELLULITIS, UNSPECIFIED Qualifiers: Site of cellulitis: extremity Site of cellulitis of extremity: lower extremity Laterality: right Qualified Code(s): L03.115 - Cellulitis of right lower limb (3) Sepsis Code(s): A41.9 - SEPSIS, UNSPECIFIED ORGANISM (4) Artery occlusion Code(s): I70.90 - UNSPECIFIED ATHEROSCLEROSIS (5) Hypercalcemia Code(s): E83.52 - HYPERCALCEMIA (6) Paroxysmal atrial fibrillation Code(s): I48.0 - PAROXYSMAL ATRIAL FIBRILLATION (7) MELITA (acute kidney injury) Code(s): N17.9 - ACUTE KIDNEY FAILURE, UNSPECIFIED Assessment/Plan - Problems (1) MELITA (acute kidney injury) Assessment/Plan: -Nephrology on board -Cr stable -monitor trend -U/S renal/bladder unremarkable Code(s): N17.9 - ACUTE KIDNEY FAILURE, UNSPECIFIED (2) Atrial fibrillation with RVR Assessment/Plan: -On heparin drip -rate controlled -cardiology on board -Tele monitor Code(s): I48.91 - UNSPECIFIED ATRIAL FIBRILLATION (3) Sepsis Assessment/Plan: -upon admission -ID on board -Cultures: Microbiology 02/12/18 19:45 Blood - Peripheral Venous Blood Culture - Final NO GROWTH AFTER 5 DAYS INCUBATION 02/12/18 19:20 Blood - Peripheral Venous Blood Culture - Final NO GROWTH AFTER 5 DAYS INCUBATION 02/13/18 14:30 Sputum - Endotrachea Suction/Ventilator Gram Stain - Final 02/13/18 14:30 Sputum - Endotrachea Suction/Ventilator Sputum Culture - Preliminary Non Lactose Fermenting Gnb 02/13/18 14:30 Urine - Urine Brenner Legionella Antigen - Final 02/13/18 14:30 Urine - Urine Brenner Streptococcus pneumoniae Antigen (M - Final 02/06/18 17:02 Blood - Peripheral Venous Blood Culture - Final NO GROWTH AFTER 5 DAYS INCUBATION 02/06/18 17:02 Blood - Peripheral Venous Blood Culture - Final NO GROWTH AFTER 5 DAYS INCUBATION 02/06/18 17:02 Urine - Urine - Catheterized Urine Culture - Final NO GROWTH OBTAINED 02/07/18 19:15 Nasopharyngeal Swab Influenza Types A,B Antigen - Final 02/07/18 19:15 Nasopharyngeal Swab - Final -On IV Zosyn and Vanco Code(s): A41.9 - SEPSIS, UNSPECIFIED ORGANISM (4) Toxic metabolic encephalopathy Code(s): G92 - TOXIC ENCEPHALOPATHY (5) Altered mental status Assessment/Plan: -CT head x 2 negative -Seen by Neurology -multifactorial Code(s): R41.82 - ALTERED MENTAL STATUS, UNSPECIFIED (6) Anemia Assessment/Plan: chronic, at baseline -Check stool OB-pending -Iron profile, B12, thyroid profile unremarkable -monitor trend -Transfuse only if Hg <7.0 to avoid fluid overload as he is chronically anemic Code(s): D64.9 - ANEMIA, UNSPECIFIED
[2018-02-20] MEDS ORDERED: PT OWN MED DRAWER 7, Y5N ONE ×2 (10:44→10:56)
[2018-02-20] MEDS: DEXAMETHASONE SOD PHOSPHATE 10 MG/1 ML VIAL IVPUSH SCH ×2 (10:48→21:02)
[2018-02-20] MEDS: THIAMINE HCL 100 MG TABLET (FP) PO SCH (10:48)
[2018-02-20] MEDS: METOPROLOL TARTRATE 25 MG TABLET (FP) PO SCH ×2 (10:48→21:02)
[2018-02-20] MEDS: CEFTAZIDIME PENTAHYDRATE 1 GM in DEXTROSE 5%-WATER - 50 ML IVPB SCH (10:48)
[2018-02-20] MEDS: ERGOCALCIFEROL 8,000 UNITS/ML DROPSBTL PO SCH (10:58)
[2018-02-20] MEDS: CHLORHEXIDINE GLUCONATE 0.12% 15ML CUP MM SCH ×2 (10:59→21:03)
[2018-02-20] MEDS: ALLOPURINOL 100 MG TABLET (FP) PO SCH ×2 (10:59→21:02)
[2018-02-20] MEDS: PANTOPRAZOLE SODIUM 40 MG VIAL IVPUSH SCH (10:59)
--- NOTE | 2018-02-20 11:10 | PN ---
Teaching Attending Note Name of Resident: Sebastián Oneil ATTENDING PHYSICIAN STATEMENT I saw and evaluated the patient. I reviewed the resident's note and discussed the case with the resident. I agree with the resident's findings and plan as documented. SUBJECTIVE: Pt seen and examined in the ICU. Remains intubated, poorly responsive. Attempts to open eyes when stimulated. OBJECTIVE: Vital Signs Period Temp Pulse Resp BP Sys/Ariza Pulse Ox Last 24 Hr 98.6 F-99.5 F 80-118 -18 84-122/59-85 97-100 Intake & Output 02/17/18 02/18/18 02/19/18 02/20/18 23:59 23:59 23:59 23:59 Intake Total 1630 2542 2064 986 Output Total 5762 237 9221 300 Balance 405 2167 1064 686 Weight 81.675 kg 82.639 kg 83.971 kg 83.915 kg Gen: intubated, poorly responsive Heart: tachycardic, irregular Lung: scattered rhonchi Abd: soft, nontender Ext: no edema CBC, BMP 02/20/18 05:10 02/20/18 05:10 Active Medications Acetaminophen (Tylenol Suppository -) 650 mg UT Q6H PRN PRN Reason: FEVER Last Admin: 02/12/18 18:10 Dose: 650 mg Acetaminophen (Tylenol -) 650 mg PO Q6H PRN PRN Reason: PAIN LEVEL 1 - 3 Allopurinol (Zyloprim -) 100 mg PO BID [facility] Last Admin: 02/20/18 10:59 Dose: 100 mg Chlorhexidine Gluconate (Peridex -) 15 ml MM BID [facility] Last Admin: 02/20/18 10:59 Dose: 15 ml Cholecalciferol (Vitamin D3 -) 1,000 unit PO DAILY [facility] Dexamethasone Sodium Phosphate (Decadron Injection -) 10 mg IVPUSH BID [facility] Last Admin: 02/20/18 10:48 Dose: 10 mg Diphenhydramine HCl (Benadryl Injection -) 25 mg IVPB ONCE PRN PRN Reason: DURING PLASMAPHERESIS Ergocalciferol (Drisdol Oral Solution -) 8,000 units PO DAILY [facility] Stop: 02/24/18 08:37 Last Admin: 02/20/18 10:58 Dose: 8,000 units Heparin Sodium (Porcine) (Hep-Lock -) 5 ml IVPUSH PRN PRN PRN Reason: Heparin Heparin Sodium (Porcine) (Heparin -) 1,000 unit IVPUSH PRN PRN PRN Reason: Heparin Heparin Sodium (Porcine) (Heparin -) 5,000 unit IVPUSH PRN PRN PRN Reason: Heparin Fentanyl 500 mcg/ Dextrose 100 mls @ 5 mls/hr IVPB TITR [facility]; Protocol Last Admin: 02/20/18 06:32 Dose: 50 mcg/hr, 10 mls/hr Heparin Sodium/Dextrose (Heparin Infusion -) 25,000 units in 500 mls @ 20 mls/ hr IVPB TITR [facility]; Protocol Last Admin: 02/19/18 21:03 Dose: Not Given Ceftazidime 1 gm/ Dextrose 50 mls @ 200 mls/hr IVPB DAILY [facility]; Protocol Last Admin: 02/20/18 10:48 Dose: 200 mls/hr Propofol (Diprivan -) 1,000,000 mcg in 100 mls @ 2.479 mls/hr IVPB TITR [facility]; Protocol Last Admin: 02/19/18 21:05 Dose: Not Given Lactulose (Cephulac (Oral Use)) 20 gm PO TID [facility] Last Admin: 02/20/18 06:32 Dose: 20 gm Metoprolol Tartrate (Lopressor Injection -) 5 mg IVPUSH Q8H PRN PRN Reason: TACHYCARDIA Metoprolol Tartrate (Lopressor -) 25 mg PO BID [facility] Last Admin: 02/20/18 10:48 Dose: 25 mg Pantoprazole Sodium (Protonix Iv) 40 mg IVPUSH DAILY [facility] Last Admin: 02/20/18 10:59 Dose: 40 mg Thiamine HCl (Vitamin B1 -) 100 mg PO DAILY [facility] Last Admin: 02/20/18 10:48 Dose: 100 mg ASSESSMENT AND PLAN: Acute Hypoxic Respiratory Failure Altered Mental Status Metabolic Encephalopathy Pneumonia Multiple Myeloma Acute on Chronic Renal Failure Metabolic Acidosis LV Diastolic Dysfunction Atrial Fibrillation CAD +Troponins likely Demand Ischemia PAD Hyperlipidemia HTN - continue antibiotics - decadron per oncology - lasix today - monitor urine output, creatinine - replete lytes - rate control - continue anticoagulation - minimize sedation to assess mental status - spontaneous breathing trials as tolerated but would not extubate until mental status improved - enteral feeds - DVT/GI prophylaxis - continue discussions regarding goals of care, may need tracheostomy - palliative care eval - continue ICU monitoring critical care time spent in reviewing chart, evaluating patient and formulating plan 35 min
--- NOTE | 2018-02-20 13:25 | PN ---
Progress Note (short form) - Note Progress Note: Patient seen and examined at bedside in the ICU Intubated off propofol and fentanyl since 9am tolerating CPAP- no tachycardia or tachypnea on CPAP Vital Signs Temperature 99.8 F H 02/20/18 12:00 Pulse Rate 95 H 02/20/18 12:00 Respiratory Rate 16 02/20/18 12:00 Blood Pressure 110/74 02/20/18 12:00 O2 Sat by Pulse Oximetry (%) 100 02/20/18 10:15 Intake & Output 02/18/18 02/19/18 02/19/18 23:59 11:59 23:59 Intake Total 1250 1003 Output Total 200 500 Balance 1050 503 Weight 83.971 kg Intake: IV 190 263 #20 RAC 02/18/18 57 DIPRIVAN - 1,000,000 mcg 10 35 In 100 ml @ 5 MCG/KG/MIN 2.479 mls/hr IVPB TITR [facility] Rx#:[id number] HEPARIN INFUSION - 25,000 120 114 units In 500 ml @ 1,000 UNITS/HR 20 mls/hr IVPB TITR [facility] Rx#:[id number] Sublimaze Injection - 500 60 57 Mcg In D5w - 90 ml @ 25 MCG/HR 5 mls/hr IVPB TITR [facility] Rx#:[id number] IVPB 300 Tube Feeding 540 540 Tube Irrigant 220 200 Output: Urine 200 500 Brenner 200 500 Other: Voiding Method Indwelling Catheter Indwelling Catheter Bowel Movement Yes Yes # Bowel Movements 3 2 Body Mass Index (BMI) 25.0 Weight Measurement Method Built in [facility] PE: Lying in bed intubated. Tries to open eyes to name. Less responsive from yesterday propofol held Poor dentition PERRL senile arcus bilaterally Irregular No murmur soft non tender non distended 02/19/18 02/19/18 02/20/18 18:00 18:00 05:10 WBC 7.7 9.0 RBC 2.45 L 2.73 L Hgb 7.4 L 8.1 L Hct 21.8 L 24.4 L MCV 89.1 89.6 MCHC 34.0 33.3 RDW 16.4 H 16.3 H Plt Count 161 177 Neutrophils % 82.4 82.1 Lymphocytes % 12.6 12.5 Monocytes % 4.5 5.1 Eosinophils % 0.2 D 0.1 Basophils % 0.3 0.2 Sodium 140 Potassium 4.6 Chloride 114 H Carbon Dioxide 20 L Anion Gap 6 L BUN 74 H Creatinine 2.9 H 02/20/18 05:10 WBC RBC Hgb Hct MCV MCHC RDW Plt Count Neutrophils % Lymphocytes % Monocytes % Eosinophils % Basophils % Sodium 139 Potassium 4.7 Chloride 113 H Carbon Dioxide 21 Anion Gap 5 L BUN 79 H Creatinine 3.0 H 02/17/18 15:00 Blood Culture - Preliminary Blood - Peripheral Venous NO GROWTH OBTAINED AFTER 48 HOURS, INCUBATION TO CONTINUE FOR 3 DAYS. 02/17/18 14:00 Blood Culture - Preliminary Blood - Central Line NO GROWTH OBTAINED AFTER 48 HOURS, INCUBATION TO CONTINUE FOR 3 DAYS. 02/13/18 14:30 Gram Stain - Final Sputum - Endotrachea Suction/Ventilator Sputum Culture - Final Stenotrophomon.(X.)Maltophilia 02/12/18 19:45 Blood Culture - Final Blood - Peripheral Venous NO GROWTH AFTER 5 DAYS INCUBATION 02/12/18 19:20 Blood Culture - Final Blood - Peripheral Venous NO GROWTH AFTER 5 DAYS INCUBATION 02/13/18 14:30 Legionella Antigen - Final Urine - Urine Brenner Streptococcus pneumoniae Antigen (M - Final 02/06/18 17:02 Blood Culture - Final Blood - Peripheral Venous NO GROWTH AFTER 5 DAYS INCUBATION 02/06/18 17:02 Blood Culture - Final Blood - Peripheral Venous NO GROWTH AFTER 5 DAYS INCUBATION 02/06/18 17:02 Urine Culture - Final Urine - Urine - Catheterized NO GROWTH OBTAINED 02/07/18 19:15 Influenza Types A,B Antigen - Final Nasopharyngeal Swab - Final 77M with multiple medical problems presents to the hospital after being found down by neighbors found to have MELITA and hypercalcemia with altered mental status. Problem List: Altered mental status toxic metabolic encephalopathy Hypercalcemia likely from malignancy MELITA on CKD History of alcohol abuse HTN HLD CAD Afib diastolic dysfunction troponinemia Hypertrophic cardiomypoathy (apical) sepsis secondary to RLL pneumonia acute hypoxemic respiratory failure Vitamin D deficiency multiple myeloma Plan: Calcium WNL today Patient s/p pharesis x2 SPEP noted total protein and globulins elevated Bethel/lambda light chains-noted Bethel/Lambda ratio > 100 consistent with Multiple myeloma M spike elevated elevated at 6.8 previously 4.7 . Baseline Immunoglobulins done at time of rapid repsonse second set shows decreased of IgG from about 5 grams to about 3 grams after first pharesis. bone (metastatic) survey and if negative will get Bone scan.- when acute issues resolved Of note Bone scan may not show any lesions if it is from multiple myeloma but will sold solid tumors Can consider MRI of C/T/L spine if patient stops moving lower extremities or concern for lytic lesions of the spine. At this time the patient is moving his lower extremities so will hold off for now. PTH-borderline low appropriate given hypercalcemia, PTHrP low Vit D low ABx per ID replete calcium per ICU Palliative consult to discuss goals of care with family-Pending Thank you for this consult
--- NOTE | 2018-02-20 13:32 | CON.NEURO ---
Consult Consult Specialty:: Neurology Referred by:: Dr. Serna Reason for Consultation:: Unresponsive - History of Present Illness Chief Complaint: Unresponsive History of Present Illness: 77 y/o man with a PMHx of Persistent Afib [id number] with recurrent peripheral arterial embolism due to previous noncompliance with Xarelto due to lack of social support, Diabetes Mellitus, Apical Hypertrophic Cardiomyopathy, Alcohol Abuse, nonobstructive CAD h/o anaphylaxis after eating Persian Food- shrimp and boneless spare ribs, suspected myeloma (due to paraproteinemia and M spike, SPEP/UPEP results not yet found), recent admission for vasovagal near syncope and MELITA presented with altered mental status after being found down at his home by EMS after his neighbor found mail piling up, etc. He was brought to the ER and was arousable and following commands but not answering questions appropriately and is altered and cannot provide any acurate history; I am told he was still wearing his wristband from his last discharge. He was found to be hypothermic and tachycardic with a marked hypercalcemia and MELITA. This is similar to his prior presentation when he was found to be hypercalcemic ( discharged with Ca of 11 corrected) and hypothermic. His Ca is even more off this time. Hospital course significant for confirmation of multiple myeloma diagnosis, respiratory crisis and intubation, and further decline of mental status. Also noted was hypercalcemia and hyperammonemia felt to non-hepatic in origin. Despite lactulose therapy, though, ammonia level has only fallen from 91 to 90. We are now called back because of failure to wake up and in fact worsening mentation. - History Source History Provided By: Medical Record Limitations to Obtaining History: Clinical Condition - Past Medical History Cardio/Vascular: Yes: AFIB, HTN, MN Renal/: Yes: Renal Failure, Renal Inusuff Additional Medical History: peripheral arterial diseases/p stent in LLE - Past Surgical History Past Surgical History: Yes: Hernia Repair - Alcohol/Substance Use Hx Alcohol Use: Yes History of Substance Use: reports: None - Smoking History Smoking history: Former smoker Have you smoked in the past 12 months: No Aproximately how many cigarettes per day: 10 If you are a former smoker, when did you quit?: 04.06.16 Home Medications - Allergies Allergies/Adverse Reactions: Allergies Allergy/AdvReac Type Severity Reaction Status Date / Time valsartan Allergy Severe Verified 02/06/18 16:47 - Home Medications Home Medications: Ambulatory Orders Atorvastatin Ca [Lipitor] 40 mg PO HS #30 tablet 10/19/17 Rivaroxaban [Xarelto -] 20 mg PO DAILY@1800 #30 tablet 10/19/17 Carvedilol [Coreg -] 6.25 mg PO BID #60 tablet 01/24/18 Physical Exam-Neuro Vital Signs: Vital Signs Temperature 99.8 F H 02/20/18 12:00 Pulse Rate 95 H 02/20/18 12:00 Respiratory Rate 16 02/20/18 12:00 Blood Pressure 110/74 02/20/18 12:00 O2 Sat by Pulse Oximetry (%) 100 02/20/18 10:15 Constitutional: Yes: Cachectic, Other (on ventilator) Labs: CBC, BMP 02/20/18 05:10 02/20/18 05:10 INR, PTT INR 1.36 (0.83-1.09) H 02/18/18 06:00 Fibrinogen 290.0 mg/dL (238-498) 02/18/18 06:00 - Neuro Exam Level Of Consciousness: Yes: Comatose Eyes: Yes: ESTEPHANIE (dolls eyes intact, positive corneals bilaterally ) Speech: Other (intubated and unresponsive to vocal or tactile stimuli) Motor Strength: 0/5: Left Arm, Right Arm, Left Leg, Right Leg (no spontaneous movements and none elicited by noxiuos stimuli) Imaging - Results Cat Scan: Report Reviewed, Image Reviewed (02/16 no focal large lesions,) Problem List - Problems (1) MELITA (acute kidney injury) Code(s): N17.9 - ACUTE KIDNEY FAILURE, UNSPECIFIED (2) Atrial fibrillation with RVR Code(s): I48.91 - UNSPECIFIED ATRIAL FIBRILLATION (3) Cellulitis Code(s): L03.90 - CELLULITIS, UNSPECIFIED Qualifiers: Qualified Code(s): L03.115 - Cellulitis of right lower limb (4) Hyperlipidemia Code(s): E78.5 - HYPERLIPIDEMIA, UNSPECIFIED Qualifiers: Qualified Code(s): E78.00 - Pure hypercholesterolemia, unspecified; E78.0 - Pure hypercholesterolemia (5) Hypothermia Code(s): T68.XXXA - HYPOTHERMIA, INITIAL ENCOUNTER Qualifiers: Qualified Code(s): T68.XXXA - Hypothermia, initial encounter (6) Sepsis Code(s): A41.9 - SEPSIS, UNSPECIFIED ORGANISM (7) Toxic metabolic encephalopathy Code(s): G92 - TOXIC ENCEPHALOPATHY (8) [id number]-nomqhxd kidney injury Code(s): N17.9 - ACUTE KIDNEY FAILURE, UNSPECIFIED; N18.9 - CHRONIC KIDNEY DISEASE, UNSPECIFIED Qualifiers: Qualified Code(s): N17.9 - Acute kidney failure, unspecified; N18.9 - Chronic kidney disease, unspecified Assessment/Plan This still looks like metabolic encephalopathy much more than structural. His calcium remains low, and despite lactulose, his ammonia level is still quite high. Would push lactulose to maintain diarrhea, and see if this helps. Thanks.
--- NOTE | 2018-02-20 15:30 | PN ---
Progress Note (short form) - Note Progress Note: Renal follow up for Hypercalcemia/MELITA Pt seen and examined in the ICU remains intubated no change in clinical status making urine via francois Vital Signs Temperature 100.4 F H 02/20/18 14:00 Pulse Rate 95 H 02/20/18 12:00 Respiratory Rate 21 H 02/20/18 14:08 Blood Pressure 126/81 02/20/18 14:00 O2 Sat by Pulse Oximetry (%) 100 02/20/18 10:15 Intake & Output 02/17/18 02/18/18 02/19/18 02/20/18 23:59 23:59 23:59 23:59 Intake Total 1630 2542 2064 986 Output Total 0361 013 0650 300 Balance 405 2167 1064 686 Weight 81.675 kg 82.639 kg 83.971 kg 83.915 kg NAD on vent via ET tube RRR Dec BS, no rales no Le edema CBC, BMP 02/20/18 05:10 02/20/18 05:10 Laboratory Tests 02/20/18 05:10 Calcium 6.7 L* Phosphorus 5.7 H Magnesium 2.6 H Albumin 2.2 L Current Medications Acetaminophen (Tylenol Suppository -) 650 mg AR Q6H PRN PRN Reason: FEVER Last Admin: 02/12/18 18:10 Dose: 650 mg Acetaminophen (Tylenol -) 650 mg PO Q6H PRN PRN Reason: PAIN LEVEL 1 - 3 Allopurinol (Zyloprim -) 100 mg PO BID [facility] Last Admin: 02/20/18 10:59 Dose: 100 mg Chlorhexidine Gluconate (Peridex -) 15 ml MM BID [facility] Last Admin: 02/20/18 10:59 Dose: 15 ml Cholecalciferol (Vitamin D3 -) 1,000 unit PO DAILY [facility] Dexamethasone Sodium Phosphate (Decadron Injection -) 10 mg IVPUSH BID [facility] Last Admin: 02/20/18 10:48 Dose: 10 mg Diphenhydramine HCl (Benadryl Injection -) 25 mg IVPB ONCE PRN PRN Reason: DURING PLASMAPHERESIS Ergocalciferol (Drisdol Oral Solution -) 8,000 units PO DAILY [facility] Stop: 02/24/18 08:37 Last Admin: 02/20/18 10:58 Dose: 8,000 units Heparin Sodium (Porcine) (Hep-Lock -) 5 ml IVPUSH PRN PRN PRN Reason: Heparin Heparin Sodium (Porcine) (Heparin -) 1,000 unit IVPUSH PRN PRN PRN Reason: Heparin Heparin Sodium (Porcine) (Heparin -) 5,000 unit IVPUSH PRN PRN PRN Reason: Heparin Fentanyl 500 mcg/ Dextrose 100 mls @ 5 mls/hr IVPB TITR [facility]; Protocol Last Admin: 02/20/18 06:32 Dose: 50 mcg/hr, 10 mls/hr Heparin Sodium/Dextrose (Heparin Infusion -) 25,000 units in 500 mls @ 20 mls/ hr IVPB TITR [facility]; Protocol Last Admin: 02/19/18 21:03 Dose: Not Given Ceftazidime 1 gm/ Dextrose 50 mls @ 200 mls/hr IVPB DAILY [facility]; Protocol Last Admin: 02/20/18 10:48 Dose: 200 mls/hr Propofol (Diprivan -) 1,000,000 mcg in 100 mls @ 2.479 mls/hr IVPB TITR [facility]; Protocol Last Admin: 02/19/18 21:05 Dose: Not Given Lactulose (Cephulac (Oral Use)) 20 gm PO TID [facility] Last Admin: 02/20/18 06:32 Dose: 20 gm Metoprolol Tartrate (Lopressor Injection -) 5 mg IVPUSH Q8H PRN PRN Reason: TACHYCARDIA Metoprolol Tartrate (Lopressor -) 25 mg PO BID [facility] Last Admin: 02/20/18 10:48 Dose: 25 mg Pantoprazole Sodium (Protonix Iv) 40 mg IVPUSH DAILY [facility] Last Admin: 02/20/18 10:59 Dose: 40 mg Thiamine HCl (Vitamin B1 -) 100 mg PO DAILY [facility] Last Admin: 02/20/18 10:48 Dose: 100 mg 77 year old gentleman with hx of CKD, Afib on A/C, CAD, CKD, Hypertension, Hyperlipidemia, PVD who presented with AMS/Confusion and found to have MELITA. #MELITA ATN vs. 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 tubular injury, US showed no stones or obstruction, UA w/o protein but UPCR ~0.5 indicating non- albumin proteinuria) #AMS of unclear etiology (metabolic encephalopathy) #Anemia #Hypercalcemia of Malignancy (PTH is low) #Hyperdense lesion on US of the kidney #Normal anion gap metabolic acidosis Renal function stable at this time and pt remains non-oliguric at this time no indication for COMPENSATION AND BENEFITS ANALYST at the present time s/p plasmapharesis for hyperviscocity per Heme on IV steroids Prognosis remains poor given lack of improvement in mental status Continue vent support trend renal function and electrolytes daily can consider d/c priscila Jackson DO
[2018-02-20] MEDS ORDERED: ROCURONIUM BROMIDE 50 MG/5 ML VIAL IVPUSH ONE (16:30)
--- NOTE | 2018-02-20 16:45 | PROC ---
Intubation - Intubation Reason for Intubation: Other (Air leak from old ET tube cuff noted, requiring placement of new tube.) Time of Intubation: 16:35 Intubation Method: orotracheal Blade used: bougie Tube Size (cm): 8.0 Tube position @ lip (cm): 24 Tube position confirmed by: CO2 detector, Breath sounds Breath Sounds after Intubation: right greater than left Post Intubation Xray: Yes Remarks: Air leak from ET tube cuff noted, requiring placement of new tube. Anesthesia called to assist w/ reintubation w/ use of bougie. Tube size 8mm inserted to 24cm at the lip. Tube position confirmed by b/l breath sounds (R side >L side) and CO2 detector. CXR ordered.
[2018-02-20] MEDS: PROPOFOL 1,000,000 MCG/100 ML VIAL IVPB SCH (17:00)
[2018-02-20] MEDS: HEPARIN INFUSION - 25,000 UNITS/500 ML INFUS.BAG IVPB SCH (20:47)
[2018-02-21] MEDS ORDERED: fentaNYL CITRATE 250 MCG/5 ML VIAL ONE (01:23)
[2018-02-21] MEDS: FENTANYL INJECTION 500 MCG in DEXTROSE 5%-WATER - 90 ML IVPB SCH ×2 (04:29→11:47)
[2018-02-21] MEDS: LACTULOSE 20 GM/30 ML UDC (FOR ORAL USE ONLY) PO SCH ×3 (05:28→21:25)
[2018-02-21 05:54] LABS: ALLENS TEST POSITIVE; ARTERIAL BLD GAS O2 SATURATION 95.6 % (90-98.9); ARTERIAL BLOOD GAS BASE EXCESS -6.4 meq/l (-2-2); ARTERIAL BLOOD GAS PCO2 35.2 mmHg (35-45); ARTERIAL BLOOD GAS PO2 85.3 mmHg (70-100); ARTERIAL BLOOD GAS pH 7.34 (7.35-7.45)
[2018-02-21 06:13] LABS: BASO % 0.4 % (0-2.0); EOS % 0.1 % (0-4.5); HEMATOCRIT 24.4 % (35.4-49); HEMOGLOBIN 8.1 GM/dL (11.7-16.9); LYMPH % 12.2 % (8-40); MCH 29.9 pg (25.7-33.7); MEAN CELL VOLUME 90.6 fl (80-96); MEAN PLT VOLUME 9.1 fl (7.5-11.1); MONO % 3.1 % (3.8-10.2); NEUT % 84.2 % (42.8-82.8); PLATELET COUNT 199 K/MM3 (134-434); RBC 2.69 M/mm3 (4.00-5.60); RDW 16.9 % (11.9-15.9); WHITE BLOOD COUNT 7.4 K/mm3 (4.0-10.0)
[2018-02-21 07:10] LABS: ALK PHOS 159 U/L (45-117); ANION GAP 8 MMOL/L (8-16); BILIRUBIN,TOTAL 0.3 mg/dL (0.2-1); BLOOD UREA NITROGEN 89 mg/dL (7-18); CHLORIDE 114 mmol/L (98-107); CO2 19 mmol/L (21-32); CREATININE 2.8 mg/dL (0.55-1.3); GLUCOSE,RANDOM 158 mg/dL (74-106); MAGNESIUM 2.7 mg/dL (1.8-2.4); PHOSPHOROUS 5.1 mg/dL (2.5-4.9); POTASSIUM 5.1 mmol/L (3.5-5.1); SGOT/AST 171 U/L (15-37); SGPT/ALT 210 U/L (13-61); SODIUM 142 mmol/L (136-145); TOT PROT 10.1 g/dl (6.4-8.2)
[2018-02-21 07:39] LABS: CALCIUM 6.4 mg/dL (8.5-10.1)
[2018-02-21] MEDS: ACETAMINOPHEN 325 MG TABLET (FP) PO PRN (09:23)
[2018-02-21] MEDS: METOPROLOL TARTRATE 25 MG TABLET (FP) PO SCH (09:24)
[2018-02-21] MEDS: ALLOPURINOL 100 MG TABLET (FP) PO SCH ×2 (09:24→21:25)
[2018-02-21] MEDS: HEPARIN INFUSION - 25,000 UNITS/500 ML INFUS.BAG IVPB SCH (09:24)
[2018-02-21] MEDS: PANTOPRAZOLE SODIUM 40 MG VIAL IVPUSH SCH (09:25)
[2018-02-21] MEDS: CHLORHEXIDINE GLUCONATE 0.12% 15ML CUP MM SCH ×2 (09:25→21:26)
[2018-02-21] MEDS: DEXAMETHASONE SOD PHOSPHATE 10 MG/1 ML VIAL IVPUSH SCH ×2 (09:25→21:26)
[2018-02-21] MEDS: THIAMINE HCL 100 MG TABLET (FP) PO SCH (09:25)
--- NOTE | 2018-02-21 09:41 | PN ---
Progress Note, Physician - Current Medication List Current Medications: Active Medications Acetaminophen (Tylenol Suppository -) 650 mg AR Q6H PRN PRN Reason: FEVER Last Admin: 02/12/18 18:10 Dose: 650 mg Acetaminophen (Tylenol -) 650 mg PO Q6H PRN PRN Reason: PAIN LEVEL 1 - 3 Last Admin: 02/21/18 09:23 Dose: 650 mg Allopurinol (Zyloprim -) 100 mg PO BID [facility] Last Admin: 02/21/18 09:24 Dose: 100 mg Calcium Gluconate (Calcium Gluconate 10% -) 1,000 mg IVPB ONCE ONE Stop: 02/21/18 09:46 Chlorhexidine Gluconate (Peridex -) 15 ml MM BID [facility] Last Admin: 02/21/18 09:25 Dose: 15 ml Cholecalciferol (Vitamin D3 -) 1,000 unit PO DAILY [facility] Dexamethasone Sodium Phosphate (Decadron Injection -) 10 mg IVPUSH BID [facility] Last Admin: 02/21/18 09:25 Dose: 10 mg Diphenhydramine HCl (Benadryl Injection -) 25 mg IVPB ONCE PRN PRN Reason: DURING PLASMAPHERESIS Ergocalciferol (Drisdol Oral Solution -) 8,000 units PO DAILY [facility] Stop: 02/24/18 08:37 Last Admin: 02/20/18 10:58 Dose: 8,000 units Heparin Sodium (Porcine) (Hep-Lock -) 5 ml IVPUSH PRN PRN PRN Reason: Heparin Heparin Sodium (Porcine) (Heparin -) 1,000 unit IVPUSH PRN PRN PRN Reason: Heparin Heparin Sodium (Porcine) (Heparin -) 5,000 unit IVPUSH PRN PRN PRN Reason: Heparin Fentanyl 500 mcg/ Dextrose 100 mls @ 5 mls/hr IVPB TITR [facility]; Protocol Last Admin: 02/21/18 04:29 Dose: 25 mcg/hr, 5 mls/hr Heparin Sodium/Dextrose (Heparin Infusion -) 25,000 units in 500 mls @ 20 mls/ hr IVPB TITR [facility]; Protocol Last Admin: 02/21/18 09:24 Dose: Not Given Ceftazidime 1 gm/ Dextrose 50 mls @ 200 mls/hr IVPB DAILY [facility]; Protocol Last Admin: 02/20/18 10:48 Dose: 200 mls/hr Propofol (Diprivan -) 1,000,000 mcg in 100 mls @ 2.479 mls/hr IVPB TITR [facility]; Protocol Last Admin: 02/20/18 17:00 Dose: 7 mcg/kg/min, 3.471 mls/hr Lactulose (Cephulac (Oral Use)) 20 gm PO TID [facility] Last Admin: 02/21/18 05:28 Dose: 20 gm Metoprolol Tartrate (Lopressor Injection -) 5 mg IVPUSH Q8H PRN PRN Reason: TACHYCARDIA Metoprolol Tartrate (Lopressor -) 50 mg PO BID [facility] Pantoprazole Sodium (Protonix Iv) 40 mg IVPUSH DAILY [facility] Last Admin: 02/21/18 09:25 Dose: 40 mg Thiamine HCl (Vitamin B1 -) 100 mg PO DAILY [facility] Last Admin: 02/21/18 09:25 Dose: 100 mg - Objective Vital Signs: Vital Signs Temperature 100.7 F H 02/21/18 08:00 Pulse Rate 123 H 02/21/18 08:00 Respiratory Rate 19 02/21/18 09:15 Blood Pressure 134/77 02/21/18 08:00 O2 Sat by Pulse Oximetry (%) 98 02/21/18 08:00 Cardiovascular: Yes: S1, S2 Respiratory: Yes: Regular, CTA Bilaterally Gastrointestinal: Yes: Normal Bowel Sounds, Soft Labs: CBC, BMP 02/21/18 05:30 02/21/18 05:30 INR, PTT INR 1.36 (0.83-1.09) H 02/18/18 06:00 Fibrinogen 290.0 mg/dL (238-498) 02/18/18 06:00 Problem List - Problems (1) Toxic metabolic encephalopathy Code(s): G92 - TOXIC ENCEPHALOPATHY (2) Cellulitis Code(s): L03.90 - CELLULITIS, UNSPECIFIED Qualifiers: Site of cellulitis: extremity Site of cellulitis of extremity: lower extremity Laterality: right Qualified Code(s): L03.115 - Cellulitis of right lower limb (3) Sepsis Code(s): A41.9 - SEPSIS, UNSPECIFIED ORGANISM (4) Artery occlusion Code(s): I70.90 - UNSPECIFIED ATHEROSCLEROSIS (5) Hypercalcemia Code(s): E83.52 - HYPERCALCEMIA (6) Paroxysmal atrial fibrillation Code(s): I48.0 - PAROXYSMAL ATRIAL FIBRILLATION (7) MELITA (acute kidney injury) Code(s): N17.9 - ACUTE KIDNEY FAILURE, UNSPECIFIED Assessment/Plan - Problems (1) MELITA (acute kidney injury) Assessment/Plan: -Nephrology on board -Cr stable -monitor trend -U/S renal/bladder unremarkable Code(s): N17.9 - ACUTE KIDNEY FAILURE, UNSPECIFIED (2) Atrial fibrillation with RVR Assessment/Plan: -On heparin drip -rate controlled -cardiology on board -Tele monitor Code(s): I48.91 - UNSPECIFIED ATRIAL FIBRILLATION (3) Sepsis Assessment/Plan: -upon admission -ID on board -Cultures: Microbiology 02/12/18 19:45 Blood - Peripheral Venous Blood Culture - Final NO GROWTH AFTER 5 DAYS INCUBATION 02/12/18 19:20 Blood - Peripheral Venous Blood Culture - Final NO GROWTH AFTER 5 DAYS INCUBATION 02/13/18 14:30 Sputum - Endotrachea Suction/Ventilator Gram Stain - Final 02/13/18 14:30 Sputum - Endotrachea Suction/Ventilator Sputum Culture - Preliminary Non Lactose Fermenting Gnb 02/13/18 14:30 Urine - Urine Brenner Legionella Antigen - Final 02/13/18 14:30 Urine - Urine Brenner Streptococcus pneumoniae Antigen (M - Final 02/06/18 17:02 Blood - Peripheral Venous Blood Culture - Final NO GROWTH AFTER 5 DAYS INCUBATION 02/06/18 17:02 Blood - Peripheral Venous Blood Culture - Final NO GROWTH AFTER 5 DAYS INCUBATION 02/06/18 17:02 Urine - Urine - Catheterized Urine Culture - Final NO GROWTH OBTAINED 02/07/18 19:15 Nasopharyngeal Swab Influenza Types A,B Antigen - Final 02/07/18 19:15 Nasopharyngeal Swab - Final -On IV Zosyn and Vanco Code(s): A41.9 - SEPSIS, UNSPECIFIED ORGANISM (4) Toxic metabolic encephalopathy Code(s): G92 - TOXIC ENCEPHALOPATHY (5) Respiratory Failure Assessment/Plan: -On vent -pulm on case -Trach Code(s): R41.82 - ALTERED MENTAL STATUS, UNSPECIFIED (6) Anemia Assessment/Plan: chronic, at baseline -Check stool OB-pending -Iron profile, B12, thyroid profile unremarkable -monitor trend -Transfuse only if Hg <7.0 to avoid fluid overload as he is chronically anemic Code(s): D64.9 - ANEMIA, UNSPECIFIED
[2018-02-21] MEDS ORDERED: CALCIUM GLUCONATE 10% - 1,000 MG/10 ML VIAL IVPB ONE (09:45)
--- NOTE | 2018-02-21 10:57 | PN ---
Progress Note, Physician History of Present Illness: Poorly responsive on vent, persistent afib with RVR on lopressor and heparin gtt. - Current Medication List Current Medications: Active Medications Acetaminophen (Tylenol Suppository -) 650 mg [place] Q6H PRN PRN Reason: FEVER Last Admin: 02/12/18 18:10 Dose: 650 mg Acetaminophen (Tylenol -) 650 mg PO Q6H PRN PRN Reason: PAIN LEVEL 1 - 3 Last Admin: 02/21/18 09:23 Dose: 650 mg Allopurinol (Zyloprim -) 100 mg PO BID [facility] Last Admin: 02/21/18 09:24 Dose: 100 mg Chlorhexidine Gluconate (Peridex -) 15 ml MM BID [facility] Last Admin: 02/21/18 09:25 Dose: 15 ml Cholecalciferol (Vitamin D3 -) 1,000 unit PO DAILY [facility] Dexamethasone Sodium Phosphate (Decadron Injection -) 10 mg IVPUSH BID [facility] Last Admin: 02/21/18 09:25 Dose: 10 mg Diphenhydramine HCl (Benadryl Injection -) 25 mg IVPB ONCE PRN PRN Reason: DURING PLASMAPHERESIS Ergocalciferol (Drisdol Oral Solution -) 8,000 units PO DAILY [facility] Stop: 02/24/18 08:37 Last Admin: 02/20/18 10:58 Dose: 8,000 units Heparin Sodium (Porcine) (Hep-Lock -) 5 ml IVPUSH PRN PRN PRN Reason: Heparin Heparin Sodium (Porcine) (Heparin -) 1,000 unit IVPUSH PRN PRN PRN Reason: Heparin Heparin Sodium (Porcine) (Heparin -) 5,000 unit IVPUSH PRN PRN PRN Reason: Heparin Fentanyl 500 mcg/ Dextrose 100 mls @ 5 mls/hr IVPB TITR [facility]; Protocol Last Admin: 02/21/18 04:29 Dose: 25 mcg/hr, 5 mls/hr Heparin Sodium/Dextrose (Heparin Infusion -) 25,000 units in 500 mls @ 20 mls/ hr IVPB TITR [facility]; Protocol Last Admin: 02/21/18 09:24 Dose: Not Given Ceftazidime 1 gm/ Dextrose 50 mls @ 200 mls/hr IVPB DAILY [facility]; Protocol Last Admin: 02/20/18 10:48 Dose: 200 mls/hr Propofol (Diprivan -) 1,000,000 mcg in 100 mls @ 2.479 mls/hr IVPB TITR [facility]; Protocol Last Admin: 02/20/18 17:00 Dose: 7 mcg/kg/min, 3.471 mls/hr Lactulose (Cephulac (Oral Use)) 20 gm PO TID [facility] Last Admin: 02/21/18 05:28 Dose: 20 gm Metoprolol Tartrate (Lopressor Injection -) 5 mg IVPUSH Q8H PRN PRN Reason: TACHYCARDIA Metoprolol Tartrate (Lopressor -) 50 mg PO BID [facility] Pantoprazole Sodium (Protonix Iv) 40 mg IVPUSH DAILY [facility] Last Admin: 02/21/18 09:25 Dose: 40 mg Thiamine HCl (Vitamin B1 -) 100 mg PO DAILY [facility] Last Admin: 02/21/18 09:25 Dose: 100 mg - Objective Vital Signs: Vital Signs Temperature 100.9 F H 02/21/18 10:00 Pulse Rate 105 H 02/21/18 10:00 Respiratory Rate 23 H 02/21/18 10:00 Blood Pressure 129/81 02/21/18 10:00 O2 Sat by Pulse Oximetry (%) 98 02/21/18 08:00 Constitutional: Yes: No Distress, Calm Neck: Yes: Supple Cardiovascular: Yes: Tachycardia, Pulse Irregular Respiratory: Yes: Intubated, Mechanically Ventilated Gastrointestinal: Yes: Normal Bowel Sounds, Soft Edema: No Labs: CBC, BMP 02/21/18 05:30 02/21/18 05:30 INR, PTT INR 1.36 (0.83-1.09) H 02/18/18 06:00 Fibrinogen 290.0 mg/dL (238-498) 02/18/18 06:00 - ....Imaging Chest X-ray: Report Reviewed (Dense left base) EKG: Report Reviewed (Tele: Rapid afib) Problem List - Problems (1) Atrial fibrillation with RVR Code(s): I48.91 - UNSPECIFIED ATRIAL FIBRILLATION (2) [id number] kidney injury Code(s): N17.9 - ACUTE KIDNEY FAILURE, UNSPECIFIED; N18.9 - CHRONIC KIDNEY DISEASE, UNSPECIFIED Qualifiers: Acute renal failure type: unspecified Chronic kidney disease stage: unspecified stage Qualified Code(s): N17.9 - Acute kidney failure, unspecified ; N18.9 - Chronic kidney disease, unspecified (3) Demand ischemia Code(s): I24.8 - OTHER FORMS OF ACUTE ISCHEMIC HEART DISEASE (4) Hypercalcemia Code(s): E83.52 - HYPERCALCEMIA (5) Nonadherence to medication Code(s): Z91.14 - PATIENT'S OTHER NONCOMPLIANCE WITH MEDICATION REGIMEN (6) Paraproteinemia Code(s): D89.2 - HYPERGAMMAGLOBULINEMIA, UNSPECIFIED (7) Anticoagulant long-term use Code(s): Z79.01 - REFINERY OPERATOR ASSISTANT (CURRENT) USE OF ANTICOAGULANTS (8) Chronic thromboembolic disease Code(s): I74.9 - EMBOLISM AND THROMBOSIS OF UNSPECIFIED ARTERY (9) Coronary artery disease Code(s): I25.10 - ATHSCL HEART DISEASE OF [place] CORONARY ARTERY W/O ANG PCTRS Qualifiers: Coronary Disease-Associated Artery/Lesion type: [place] artery [place] vs. transplanted heart: [place] heart Associated angina: without angina Qualified Code(s): I25.10 - Atherosclerotic heart disease of [place] coronary artery without angina pectoris (10) Diastolic dysfunction without heart failure Code(s): I51.9 - HEART DISEASE, UNSPECIFIED (11) HTN (hypertension) Code(s): I10 - ESSENTIAL (PRIMARY) HYPERTENSION Qualifiers: Hypertension type: essential hypertension Qualified Code(s): I10 - Essential (primary) hypertension (12) Hypertrophic cardiomyopathy Code(s): I42.2 - OTHER HYPERTROPHIC CARDIOMYOPATHY (13) Hyperlipidemia Code(s): E78.5 - HYPERLIPIDEMIA, UNSPECIFIED Qualifiers: Hyperlipidemia type: pure hypercholesterolemia Qualified Code(s): E78.00 - Pure hypercholesterolemia, unspecified; E78.0 - Pure hypercholesterolemia (14) Multiple myeloma Code(s): C90.00 - MULTIPLE MYELOMA NOT HAVING ACHIEVED REMISSION Qualifiers: Multiple myeloma remission status: not in remission Qualified Code(s): C90.00 - Multiple myeloma not having achieved remission Assessment/Plan R&LHc at [facility] 04/20/2016 showing nonobstructive CAD, severe LV apical hypertrophic cardiomyopathy, mildly elevated right sided pressures, Mynx deployed right BELLPERSON access site. 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 Echocardiogram: 10/18/2017 Mod cLVH, severe PURVI, mod TR RVSP 50-60 mmHg, mod- severe MR Echocardiogram: 01/23/2018 Normal LV size with hyperdynamic LVEF 75%, mild BSH, normal RV size and fxn, severe LAE, mod-severe MR, mod TR 1. Acute hypoxic respiratory failure, suspected aspiration pneumonia 2. Toxic metabolic encephelopathy, possible hyperviscosity syndrome, sepsis 3. Acute on CKD (suspect myeloma kidney) 4. Hypercalcemia, paraproteinemia, anemia-> confirmed multiple myeloma, hyperviscosity syndrome 5. History of bilateral SFA occlusion post thrombectomy, referable to embolic disease related to persistent atrial fibrillation with [id number] score of 6, history of poor compliance with anticoagulation and medical F/U 6. Non obstructive CAD on R&LHc coronary angiography with demand ischemia 7. LV diastolic dysfunction related to apical hypertrophic cardiomyopathy, subendocardial ischemia, compensated/euvolemic 8. Persistent atrial fibrillation with RVR [id number] score of 6 on heparin gtt 9. Labile HTN 10. Poor compliance with medical therapy administration and medical F/U 11. Tobacco abuse 12. ETOH dependence PLAN: 1. Heparin gtt for now while off Xarelto 15 qd (renal dosing) 2. Increased Lopressor 50 bid as hemodynamics tolerate with IV Lopressor as needed for rate-control 3. Empiric renal-dosed abx course pending C&S 4. Enteral feeds, lactulose for hyperammonemia, monitor ammonia levels 5. Ventilator management, wean off sedation, IV steroids with GI protection
--- NOTE | 2018-02-21 10:59 | PN ---
Progress Note (short form) - Note Progress Note: Renal follow up for Hypercalcemia/MELITA Pt seen and examined in the ICU on Vent Febrile this am making urine via francois on 40% FiO2 Vital Signs Temperature 100.9 F H 02/21/18 10:00 Pulse Rate 105 H 02/21/18 10:00 Respiratory Rate 23 H 02/21/18 10:00 Blood Pressure 129/81 02/21/18 10:00 O2 Sat by Pulse Oximetry (%) 98 02/21/18 08:00 Intake & Output 02/18/18 02/19/18 02/20/18 02/21/18 23:59 23:59 23:59 23:59 Intake Total 2542 2064 1377 960 Output Total 375 1000 1000 400 Balance 2167 1064 377 560 Weight 82.639 kg 83.971 kg 83.915 kg 83.518 kg NAD sedated on vent RRR DEc Bs, no rales soft NT/ND no LE edema CBC, BMP 02/21/18 05:30 02/21/18 05:30 Laboratory Tests 02/21/18 05:30 Calcium 6.4 L* Phosphorus 5.1 H Magnesium 2.7 H Albumin 2.0 L Current Medications Acetaminophen (Tylenol Suppository -) 650 mg [place] Q6H PRN PRN Reason: FEVER Last Admin: 02/12/18 18:10 Dose: 650 mg Acetaminophen (Tylenol -) 650 mg PO Q6H PRN PRN Reason: PAIN LEVEL 1 - 3 Last Admin: 02/21/18 09:23 Dose: 650 mg Allopurinol (Zyloprim -) 100 mg PO BID [facility] Last Admin: 02/21/18 09:24 Dose: 100 mg Chlorhexidine Gluconate (Peridex -) 15 ml MM BID [facility] Last Admin: 02/21/18 09:25 Dose: 15 ml Cholecalciferol (Vitamin D3 -) 1,000 unit PO DAILY [facility] Dexamethasone Sodium Phosphate (Decadron Injection -) 10 mg IVPUSH BID [facility] Last Admin: 02/21/18 09:25 Dose: 10 mg Diphenhydramine HCl (Benadryl Injection -) 25 mg IVPB ONCE PRN PRN Reason: DURING PLASMAPHERESIS Ergocalciferol (Drisdol Oral Solution -) 8,000 units PO DAILY [facility] Stop: 02/24/18 08:37 Last Admin: 02/20/18 10:58 Dose: 8,000 units Heparin Sodium (Porcine) (Hep-Lock -) 5 ml IVPUSH PRN PRN PRN Reason: Heparin Heparin Sodium (Porcine) (Heparin -) 1,000 unit IVPUSH PRN PRN PRN Reason: Heparin Heparin Sodium (Porcine) (Heparin -) 5,000 unit IVPUSH PRN PRN PRN Reason: Heparin Fentanyl 500 mcg/ Dextrose 100 mls @ 5 mls/hr IVPB TITR [facility]; Protocol Last Admin: 02/21/18 04:29 Dose: 25 mcg/hr, 5 mls/hr Heparin Sodium/Dextrose (Heparin Infusion -) 25,000 units in 500 mls @ 20 mls/ hr IVPB TITR [facility]; Protocol Last Admin: 02/21/18 09:24 Dose: Not Given Ceftazidime 1 gm/ Dextrose 50 mls @ 200 mls/hr IVPB DAILY [facility]; Protocol Last Admin: 02/20/18 10:48 Dose: 200 mls/hr Propofol (Diprivan -) 1,000,000 mcg in 100 mls @ 2.479 mls/hr IVPB TITR [facility]; Protocol Last Admin: 02/20/18 17:00 Dose: 7 mcg/kg/min, 3.471 mls/hr Lactulose (Cephulac (Oral Use)) 20 gm PO TID [facility] Last Admin: 02/21/18 05:28 Dose: 20 gm Metoprolol Tartrate (Lopressor Injection -) 5 mg IVPUSH Q8H PRN PRN Reason: TACHYCARDIA Metoprolol Tartrate (Lopressor -) 50 mg PO BID [facility] Pantoprazole Sodium (Protonix Iv) 40 mg IVPUSH DAILY [facility] Last Admin: 02/21/18 09:25 Dose: 40 mg Thiamine HCl (Vitamin B1 -) 100 mg PO DAILY [facility] Last Admin: 02/21/18 09:25 Dose: 100 mg 77 year old gentleman with hx of CKD, Afib on A/C, CAD, CKD, Hypertension, Hyperlipidemia, PVD who presented with AMS/Confusion and found to have MELITA. #MELITA ATN vs. 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 tubular injury, US showed no stones or obstruction, UA w/o protein but UPCR ~0.5 indicating non- albumin proteinuria) #AMS (metabolic encephalopathy) #Anemia #Hypercalcemia of Malignancy (PTH is low) #Hyperdense lesion on US of the kidney #Normal anion gap metabolic acidosis Renal function stbale at this time, no indication for GUIDE SETTER Corrected serum Ca is now WNL Oncology following, on IV decadron Trend serum bicarb, if persistently less then 20 would restart oral sodium bicarb Continue vent support prognosis is poor Mack Miller DO
[2018-02-21] MEDS: METOPROLOL TARTRATE 50 MG TABLET (FP) PO SCH ×2 (11:00→21:25)
[2018-02-21] MEDS: ERGOCALCIFEROL 8,000 UNITS/ML DROPSBTL PO SCH (11:00)
[2018-02-21] MEDS: CEFTAZIDIME PENTAHYDRATE 1 GM in DEXTROSE 5%-WATER - 50 ML IVPB SCH (11:00)
[2018-02-21] MEDS ORDERED: PT OWN MED DRAWER 7, Y5N ONE (11:19)
[2018-02-21 11:37] LABS: ACANTHOCYTES 0; ANISOCYTOSIS 0; HELMET CELLS 0; HOWELL-JOLLY BODIES 0; MACROCYTOSIS 0; OVALOCYTE 0; PLATELET ESTIMATE NORMAL; ROULEAU 0; SICKELED CELLS 0; TARGET CELLS 0; TEAR DROP CELLS 0; TOXIC GRANULATION 0
--- NOTE | 2018-02-21 11:45 | PN ---
Teaching Attending Note Name of Resident: Sebastián Oneil ATTENDING PHYSICIAN STATEMENT I saw and evaluated the patient. I reviewed the resident's note and discussed the case with the resident. I agree with the resident's findings and plan as documented. SUBJECTIVE: Pt seen and examined in the ICU. Reintubated yesterday due to cuff leak. Remains poorly responsive off sedation. Febrile overnight. OBJECTIVE: Vital Signs Period Temp Pulse Resp BP Sys/Ariza Pulse Ox Last 24 Hr 99.2 F-100.9 F 87-123 14-23 97-134/68-81 97-98 Intake & Output 02/18/18 02/19/18 02/20/18 02/21/18 23:59 23:59 23:59 23:59 Intake Total 2542 2064 1377 960 Output Total 375 1000 1000 400 Balance 2167 1064 377 560 Weight 82.639 kg 83.971 kg 83.915 kg 83.518 kg Gen: intubated, poorly responsive, tachypneic Heart: irregular Lung: scattered rhonchi Abd: soft, nontender Ext: no edema CBC, BMP 02/21/18 05:30 02/21/18 05:30 Active Medications Acetaminophen (Tylenol Suppository -) 650 mg [place] Q6H PRN PRN Reason: FEVER Last Admin: 02/12/18 18:10 Dose: 650 mg Acetaminophen (Tylenol -) 650 mg PO Q6H PRN PRN Reason: PAIN LEVEL 1 - 3 Last Admin: 02/21/18 09:23 Dose: 650 mg Allopurinol (Zyloprim -) 100 mg PO BID [facility] Last Admin: 02/21/18 09:24 Dose: 100 mg Chlorhexidine Gluconate (Peridex -) 15 ml MM BID [facility] Last Admin: 02/21/18 09:25 Dose: 15 ml Cholecalciferol (Vitamin D3 -) 1,000 unit PO DAILY [facility] Dexamethasone Sodium Phosphate (Decadron Injection -) 10 mg IVPUSH BID [facility] Last Admin: 02/21/18 09:25 Dose: 10 mg Diphenhydramine HCl (Benadryl Injection -) 25 mg IVPB ONCE PRN PRN Reason: DURING PLASMAPHERESIS Ergocalciferol (Drisdol Oral Solution -) 8,000 units PO DAILY [facility] Stop: 02/24/18 08:37 Last Admin: 02/21/18 11:00 Dose: 8,000 units Heparin Sodium (Porcine) (Hep-Lock -) 5 ml IVPUSH PRN PRN PRN Reason: Heparin Heparin Sodium (Porcine) (Heparin -) 1,000 unit IVPUSH PRN PRN PRN Reason: Heparin Heparin Sodium (Porcine) (Heparin -) 5,000 unit IVPUSH PRN PRN PRN Reason: Heparin Fentanyl 500 mcg/ Dextrose 100 mls @ 5 mls/hr IVPB TITR [facility]; Protocol Last Admin: 02/21/18 04:29 Dose: 25 mcg/hr, 5 mls/hr Heparin Sodium/Dextrose (Heparin Infusion -) 25,000 units in 500 mls @ 20 mls/ hr IVPB TITR [facility]; Protocol Last Admin: 02/21/18 09:24 Dose: Not Given Ceftazidime 1 gm/ Dextrose 50 mls @ 200 mls/hr IVPB DAILY [facility]; Protocol Last Admin: 02/21/18 11:00 Dose: 200 mls/hr Propofol (Diprivan -) 1,000,000 mcg in 100 mls @ 2.479 mls/hr IVPB TITR [facility]; Protocol Last Admin: 02/20/18 17:00 Dose: 7 mcg/kg/min, 3.471 mls/hr Lactulose (Cephulac (Oral Use)) 20 gm PO TID [facility] Last Admin: 02/21/18 05:28 Dose: 20 gm Metoprolol Tartrate (Lopressor Injection -) 5 mg IVPUSH Q8H PRN PRN Reason: TACHYCARDIA Metoprolol Tartrate (Lopressor -) 50 mg PO BID [facility] Last Admin: 02/21/18 11:00 Dose: 25 mg Pantoprazole Sodium (Protonix Iv) 40 mg IVPUSH DAILY [facility] Last Admin: 02/21/18 09:25 Dose: 40 mg Thiamine HCl (Vitamin B1 -) 100 mg PO DAILY [facility] Last Admin: 02/21/18 09:25 Dose: 100 mg ASSESSMENT AND PLAN: Acute Hypoxic Respiratory Failure Altered Mental Status Metabolic Encephalopathy Pneumonia Multiple Myeloma Acute on Chronic Renal Failure Metabolic Acidosis LV Diastolic Dysfunction Atrial Fibrillation CAD +Troponins likely Demand Ischemia PAD Hyperlipidemia HTN - continue antibiotics - reculture - d/c central line - decadron per oncology - lasix as needed - monitor urine output, creatinine - rate control - continue anticoagulation - minimize sedation to assess mental status - spontaneous breathing trials as tolerated but would not extubate until mental status improved - enteral feeds - DVT/GI prophylaxis - continue discussions regarding goals of care, will likely need tracheostomy - palliative care eval - continue ICU monitoring critical care time spent in reviewing chart, evaluating patient and formulating plan 35 min
[2018-02-21] MEDS: ENOXAPARIN NA (PORCINE) 80 MG/0.8 ML DISP.SYRIN SQ SCH (12:33)
[2018-02-21] MEDS: PROPOFOL 1,000,000 MCG/100 ML VIAL IVPB SCH ×2 (12:44→21:25)
--- NOTE | 2018-02-21 13:35 | PN ---
Physical Exam: SUBJECTIVE: Patient seen and examined at bedside. There was air leak in his ET tube last night so they took it out and put in a new ET tube with a bougie. Otherwise no acute events overnight. Patient remains to not have a meaningful mental status. Still no word from daughter or son in the area regarding advanced directives and whether or not to do a trach. OBJECTIVE: Vital Signs Period Temp Pulse Resp BP Sys/Ariza Pulse Ox Last 24 Hr 99.2 F-101.6 F 87-123 14-23 97-134/68-81 97-98 GENERAL: The patient is intubated and sedated. HEAD: Normal with no signs of trauma. EYES: PERRL, sclera anicteric, conjunctiva clear. ENT: Ears normal, nares patent, dry mucous membranes NECK: Trachea midline. LUNGS: bilateral diffuse rhonchi HEART: Regular rate and irregular rhythm. ABDOMEN: Soft, nondistended. EXTREMITIES: 2+ pulses, warm, well-perfused, no edema, scattered ulcers. NEUROLOGICAL: Cannot assess secondary to clinical condition. SKIN: Warm, dry, normal turgor, scattered ulcers on the legs Laboratory Results - last 24 hr 02/21/18 02/21/18 02/21/18 05:30 05:30 05:30 WBC 7.4 RBC 2.69 L Hgb 8.1 L Hct 24.4 L MCV 90.6 MCH 29.9 MCHC 33.0 RDW 16.9 H Plt Count 199 MPV 9.1 Absolute Neuts (auto) 6.3 Neutrophils % 84.2 H Neutrophils % (Manual) 78.1 Band Neutrophils % 3.1 Lymphocytes % 12.2 Lymphocytes % (Manual) 11.5 Monocytes % 3.1 L Monocytes % (Manual) 1 L Eosinophils % 0.1 Eosinophils % (Manual) 0.0 Basophils % 0.4 Basophils % (Manual) 0.0 Myelocytes % (Man) 1 Promyelocytes % (Man) 0 Blast Cells % (Manual) 0 Nucleated RBC % 6 H Metamyelocytes 4 H D Hypochromia 0 Toxic Granulation 0 Dohle Bodies 0 Platelet Estimate Normal Platelet Comment Present Polychromasia 0 Poikilocytosis 0 Basophilic Stippling 0 Anisocytosis 0 Microcytosis 0 Macrocytosis 0 Spherocytes 0 Sickle Cells 0 Target Cells 0 Tear Drop Cells 0 Ovalocytes 0 Stomatocytes 0 Helmet Cells 0 Foote-Dorr Bodies 0 Goodman Rings 0 Breeding Cells 0 Acanthocytes (Spur) 0 Rouleaux 0 Fragmented RBCs 0 Schistocytes 0 PTT (Actin FS) 57.6 H Puncture Site ABG pH ABG pCO2 at Pt Temp ABG pO2 at Pt Temp ABG HCO3 ABG O2 Sat (Measured) ABG O2 Content ABG Base Excess Vinny Test O2 Delivery Device Oxygen Flow Rate Vent Mode Vent Rate Mechanical Rate PEEP Pressure Support Vent Sodium 142 Potassium 5.1 Chloride 114 H Carbon Dioxide 19 L Anion Gap 8 BUN 89 H Creatinine 2.8 H Creat Clearance w eGFR 21.97 Random Glucose 158 H Lactic Acid Calcium 6.4 L* Phosphorus 5.1 H Magnesium 2.7 H Total Bilirubin 0.3 AST 171 H ALT 210 H Alkaline Phosphatase 159 H Ammonia Total Protein 10.1 H Albumin 2.0 L 02/21/18 02/21/18 02/21/18 05:30 06:00 09:58 WBC RBC Hgb Hct MCV MCH MCHC RDW Plt Count MPV Absolute Neuts (auto) Neutrophils % Neutrophils % (Manual) Band Neutrophils % Lymphocytes % Lymphocytes % (Manual) Monocytes % Monocytes % (Manual) Eosinophils % Eosinophils % (Manual) Basophils % Basophils % (Manual) Myelocytes % (Man) Promyelocytes % (Man) Blast Cells % (Manual) Nucleated RBC % Metamyelocytes Hypochromia Toxic Granulation Dohle Bodies Platelet Estimate Platelet Comment Polychromasia Poikilocytosis Basophilic Stippling Anisocytosis Microcytosis Macrocytosis Spherocytes Sickle Cells Target Cells Tear Drop Cells Ovalocytes Stomatocytes Helmet Cells Foote-Dorr Bodies Goodman Rings [place] Cells Acanthocytes (Spur) Rouleaux Fragmented RBCs Schistocytes PTT (Actin FS) Puncture Site Left radial ABG pH 7.34 L ABG pCO2 at Pt Temp 35.2 ABG pO2 at Pt Temp 85.3 ABG HCO3 18.3 L ABG O2 Sat (Measured) 95.6 ABG O2 Content 11.3 L ABG Base Excess -6.4 L Vinny Test Positive O2 Delivery Device Mech vent Oxygen Flow Rate 40 Vent Mode A/c Vent Rate 14 Mechanical Rate Yes PEEP 5.0 Pressure Support Vent 500 Sodium Potassium Chloride Carbon Dioxide Anion Gap BUN Creatinine Creat Clearance w eGFR Random Glucose Lactic Acid 1.2 Calcium Phosphorus Magnesium Total Bilirubin AST ALT Alkaline Phosphatase Ammonia 83.50 H Total Protein Albumin Active Medications Generic Name Dose Route Start Last Admin Trade Name Freq PRN Reason Stop Dose Admin Acetaminophen 650 mg 02/08/18 05:44 02/12/18 18:10 Tylenol Suppository - [place] 650 mg Q6H PRN Administration FEVER Acetaminophen 650 mg 02/17/18 14:09 02/21/18 09:23 Tylenol - PO 650 mg Q6H PRN Administration PAIN LEVEL 1 - 3 Allopurinol 100 mg 02/16/18 10:00 02/21/18 09:24 Zyloprim - PO 100 mg BID CHELLY Administration Chlorhexidine Gluconate 15 ml 02/17/18 23:45 02/21/18 09:25 Peridex - MM 15 ml BID CHELLY Administration Cholecalciferol 1,000 unit 02/25/18 10:00 Vitamin D3 - PO DAILY CHELLY Dexamethasone Sodium Phosphate 10 mg 02/17/18 12:15 02/21/18 09:25 Decadron Injection - IVPUSH 10 mg BID CHELLY Administration Diphenhydramine HCl 25 mg 02/16/18 12:00 Benadryl Injection - IVPB ONCE PRN DURING PLASMAPHERESIS Enoxaparin Sodium 80 mg 02/21/18 12:00 02/21/18 12:33 Lovenox - SQ 80 mg DAILY CHELLY Administration Ergocalciferol 8,000 units 02/18/18 10:00 02/21/18 11:00 Drisdol Oral Solution - PO 02/24/18 08:37 8,000 units DAILY CHELLY Administration Heparin Sodium (Porcine) 1,000 unit 02/15/18 06:38 Heparin - IVPUSH PRN PRN Heparin Fentanyl 500 mcg/ Dextrose 100 mls @ 5 mls/hr 02/14/18 11:45 02/21/18 11:47 IVPB Not Given TITR CHELLY Protocol 25 MCG/HR Ceftazidime 1 gm/ Dextrose 50 mls @ 200 mls/hr 02/18/18 12:00 02/21/18 11:00 IVPB 200 mls/hr DAILY CHELLY Administration Protocol Propofol 1,000,000 mcg in 100 mls @ 2.479 mls/hr 02/18/18 13:45 02/21/18 12: 44 Diprivan - IVPB 10 mcg/kg/min TITR CHLELY 4.958 mls/hr Administration Protocol 5 MCG/KG/MIN Lactulose 20 gm 02/16/18 09:38 02/21/18 05:28 Cephulac (Oral Use) PO 20 gm TID CHELLY Administration Metoprolol Tartrate 5 mg 02/16/18 13:04 Lopressor Injection - IVPUSH Q8H PRN TACHYCARDIA Metoprolol Tartrate 50 mg 02/21/18 09:40 02/21/18 11:00 Lopressor - PO 25 mg BID CHELLY Administration Pantoprazole Sodium 40 mg 02/14/18 12:00 02/21/18 09:25 Protonix Iv IVPUSH 40 mg DAILY CHELLY Administration Thiamine HCl 100 mg 02/06/18 22:12 02/21/18 09:25 Vitamin B1 - PO 100 mg DAILY CHELLY Administration ASSESSMENT/PLAN: Assessment: Not much has changed since yesterday. ET tube replaced. Patient has a daughter named Swathi Patient also has a son Savage (Named after father) - Unknown how to get in touch with them. - drop board worker consult placed. Trying to get hold of children - Palliative care on the case Plan: ID: - Rhonchi heard on Lung auscultation - CXR shows pulmonary infiltrate, possible PNA vs empyema vs paramnemonic effusion - Abx coverage switched to ceftazidime. - ID on board Cardio: - Sporadically goes in and out of V-Tach - Cards recommends restarting Lopressor 25 mg BID PO - Afib w RVR: Patient is receiving metoprolol 5 mg PRN - diastolic dysfunction + hypertrophic cardiomyopathy - CAD with multiple stents - Cardio consulted and on board. Pulm: - Intubated - Patient has b/l pleural effusions. - Giving 60 of lasix today. - No pneumothorax - b/l diffuse rhonchi - infiltrate on CXR: Abx- ceftazidime Renal: - Acute on Chronic kidney injury - BUN: 89 Cr:2.8. Pre-renal etiology. - Renal consulted and on board. Neuro: - Patient is not alert or oriented. He occasionally responds to painful stimuli. - Head CT showed no acute pathology - Dr. mejia (Covering for Dr. Kuo) will come assess the patient. - Ammonia elevated - Patient receiving lactulose Heme/Onc: - Hb today was 8.1 - Will transfuse tp keep hb > 8 - Patient not receiving plasmapharesis today. - Patient has hypocalcemia today - Will replete. - Paraproteinemia - Probable Multiple Myeloma, SPEP and UPEP suggestive. - Patient fulfills new criteria for multiple myeloma with free kappa/ free lambda light chain ratio of 432 (>100 is diagnostic of myeloma) - [place]/Lambda ratio > 100 consistent with Multiple myeloma - M spike elevated elevated at 6.8 previously 4.7 Endo: - Hypocalcemia - Glucose wnl - Parathyroid hormone WNL - PTH-borderline low appropriate given hypercalcemia, PTHrP low F/E/N: F: No standing fluids due to fluid overload in lungs E: Will replete lytes PRN N: tube feeds. Code Status: Full Code - Continue speaking with family for goals of care. - Patient will likely need a trach Dispo: Patient will continue to receive ICU level care Visit type - Emergency Visit Emergency Visit: Yes ED Registration Date: 02/06/18 Care time: The patient presented to the Emergency Department on the above date and was hospitalized for further evaluation of their emergent condition. - New Patient This patient is new to me today: No - Critical Care Critical Care patient: Yes Total Critical Care Time (in minutes): 36 Critical Care Statement: The care of this patient involved high complexity decision making to prevent further life threatening deterioration of the patient 's condition and/or to evaluate & treat vital organ system(s) failure or risk of failure.
--- NOTE | 2018-02-21 22:16 | PN ---
Progress Note (short form) - Note Progress Note: PATIENT SEEN AND EXAMINED Remains intubated and poorly responsive Despite plamapheresis, correction of CA++, lactulose for elevated NH3, antibiotics for infection, patients mental status has not appreciably improved. Last Vital Signs Temp Pulse Resp BP Pulse Ox 100.3 F H 92 H 21 H 135/82 98 02/21/18 20:00 02/21/18 22:00 02/21/18 22:00 02/21/18 22:00 02/21/18 20:39 Intubated Lungs relatively clear anteriorly Cor -irregular Abd- soft Ext- no significant edema CBC, BMP 02/21/18 05:30 02/21/18 05:30 Current Medications Generic Name Dose Route Start Last Admin Trade Name Freq PRN Reason Stop Dose Admin Acetaminophen 650 mg 02/08/18 05:44 02/12/18 18:10 Tylenol Suppository - [place] 650 mg Q6H PRN Administration FEVER Acetaminophen 650 mg 02/17/18 14:09 02/21/18 09:23 Tylenol - PO 650 mg Q6H PRN Administration PAIN LEVEL 1 - 3 Allopurinol 100 mg 02/16/18 10:00 02/21/18 21:25 Zyloprim - PO 100 mg BID CHELLY Administration Chlorhexidine Gluconate 15 ml 02/17/18 23:45 02/21/18 21:26 Peridex - MM 15 ml BID CHELLY Administration Cholecalciferol 1,000 unit 02/25/18 10:00 Vitamin D3 - PO DAILY CHELLY Dexamethasone Sodium Phosphate 10 mg 02/17/18 12:15 02/21/18 21:26 Decadron Injection - IVPUSH 10 mg BID CHELLY Administration Diphenhydramine HCl 25 mg 02/16/18 12:00 Benadryl Injection - IVPB ONCE PRN DURING PLASMAPHERESIS Enoxaparin Sodium 80 mg 02/21/18 12:00 02/21/18 12:33 Lovenox - SQ 80 mg DAILY CHELLY Administration Ergocalciferol 8,000 units 02/18/18 10:00 02/21/18 11:00 Drisdol Oral Solution - PO 02/24/18 08:37 8,000 units DAILY CHELLY Administration Heparin Sodium (Porcine) 1,000 unit 02/15/18 06:38 Heparin - IVPUSH PRN PRN Heparin Fentanyl 500 mcg/ Dextrose 100 mls @ 5 mls/hr 02/14/18 11:45 02/21/18 11:47 IVPB Not Given TITR CHELLY Protocol 25 MCG/HR Ceftazidime 1 gm/ Dextrose 50 mls @ 200 mls/hr 02/18/18 12:00 02/21/18 11:00 IVPB 200 mls/hr DAILY CHELLY Administration Protocol Propofol 1,000,000 mcg in 100 mls @ 2.479 mls/hr 02/18/18 13:45 02/21/18 21: 25 Diprivan - IVPB 10 mcg/kg/min TITR CHELLY 4.958 mls/hr Administration Protocol 5 MCG/KG/MIN Lactulose 20 gm 02/16/18 09:38 02/21/18 21:25 Cephulac (Oral Use) PO 20 gm TID CHELLY Administration Metoprolol Tartrate 5 mg 02/16/18 13:04 Lopressor Injection - IVPUSH Q8H PRN TACHYCARDIA Metoprolol Tartrate 50 mg 02/21/18 09:40 02/21/18 21:25 Lopressor - PO 50 mg BID CHELLY Administration Pantoprazole Sodium 40 mg 02/14/18 12:00 02/21/18 09:25 Protonix Iv IVPUSH 40 mg DAILY CHELLY Administration Thiamine HCl 100 mg 02/06/18 22:12 02/21/18 09:25 Vitamin B1 - PO 100 mg DAILY CHELLY Administration Impression: AMS Ventilatory failure Febrile/pneumonia Multiple myeloma MELITA/CKD DVT prophylaxis Completing course of high dose steroids without significant response to therapy. Unless neurology has a treatable cause of mental status changes, Not unreasonable to have discussions re: GOC.
[2018-02-22] MEDS: PROPOFOL 1,000,000 MCG/100 ML VIAL IVPB SCH ×2 (05:38→21:14)
[2018-02-22] MEDS: LACTULOSE 20 GM/30 ML UDC (FOR ORAL USE ONLY) PO SCH ×3 (05:38→21:15)
[2018-02-22 06:12] LABS: BASO % 0.2 % (0-2.0); EOS % 0.1 % (0-4.5); HEMATOCRIT 24.6 % (35.4-49); HEMOGLOBIN 8.2 GM/dL (11.7-16.9); LYMPH % 11.2 % (8-40); MCH 30.1 pg (25.7-33.7); MCHC 33.1 g/dl (32.0-35.9); MEAN CELL VOLUME 90.8 fl (80-96); MEAN PLT VOLUME 8.8 fl (7.5-11.1); MONO % 4.1 % (3.8-10.2); NEUT % 84.4 % (42.8-82.8); PLATELET COUNT 214 K/MM3 (134-434); RBC 2.71 M/mm3 (4.00-5.60); RDW 16.9 % (11.9-15.9); WHITE BLOOD COUNT 8.9 K/mm3 (4.0-10.0)
[2018-02-22 06:27] LABS: INR 1.28 (0.83-1.09); PROTHROMBIN TIME (PATIENT) 15.1 SEC (9.7-13.0)
[2018-02-22 06:28] LABS: ARTERIAL BLD GAS O2 SATURATION 96.3 % (90-98.9); ARTERIAL BLOOD GAS BASE EXCESS -6.4 meq/l (-2-2); ARTERIAL BLOOD GAS PCO2 41.7 mmHg (35-45); ARTERIAL BLOOD GAS pH 7.29 (7.35-7.45)
--- NOTE | 2018-02-22 06:31 | PN ---
Progress Note (short form) - Note Progress Note: Patient's daughter Mark Pillai called. Reports she was unaware her father was hospitalized and that she has not spoken to him in three years due to a fall out after her brother was killed. 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 She states he does not have a and the next of kin would be her. Patient states her dad is full code and is to have everything done. Reports she is very emotional and would be coming in 02/22/18 to speak to the attendings, manager case management, social work, and palliative care team. Patient currently lives in [place] MARK PILLAI TELEPHONE NUMBER : [phone]
[2018-02-22 06:51] LABS: ALLENS TEST POSITIVE
[2018-02-22 07:53] LABS: ALBUMIN 1.9 g/dl (3.4-5.0); ALK PHOS 188 U/L (45-117); ANION GAP 5 MMOL/L (8-16); BILIRUBIN,TOTAL 0.3 mg/dL (0.2-1); BLOOD UREA NITROGEN 98 mg/dL (7-18); CHLORIDE 114 mmol/L (98-107); CO2 22 mmol/L (21-32); CREATININE 2.6 mg/dL (0.55-1.3); GLUCOSE,RANDOM 217 mg/dL (74-106); PHOSPHOROUS 5.4 mg/dL (2.5-4.9); POTASSIUM 5.3 mmol/L (3.5-5.1); SGOT/AST 678 U/L (15-37); SGPT/ALT 604 U/L (13-61); SODIUM 140 mmol/L (136-145); TOT PROT 10.4 g/dl (6.4-8.2)
[2018-02-22 08:37] LABS: CALCIUM 6.5 mg/dL (8.5-10.1)
[2018-02-22] MEDS ORDERED: PT OWN MED DRAWER 7, Y5N ONE (09:27)
[2018-02-22] MEDS: CEFTAZIDIME PENTAHYDRATE 1 GM in DEXTROSE 5%-WATER - 50 ML IVPB SCH (09:39)
[2018-02-22] MEDS: ENOXAPARIN NA (PORCINE) 80 MG/0.8 ML DISP.SYRIN SQ SCH (09:40)
[2018-02-22] MEDS: METOPROLOL TARTRATE 50 MG TABLET (FP) PO SCH ×2 (09:41→21:15)
[2018-02-22] MEDS: ALLOPURINOL 100 MG TABLET (FP) PO SCH ×2 (09:41→21:16)
[2018-02-22] MEDS: DEXAMETHASONE SOD PHOSPHATE 10 MG/1 ML VIAL IVPUSH SCH ×2 (09:41→21:15)
[2018-02-22] MEDS: THIAMINE HCL 100 MG TABLET (FP) PO SCH (09:41)
[2018-02-22] MEDS: PANTOPRAZOLE SODIUM 40 MG VIAL IVPUSH SCH (09:41)
[2018-02-22] MEDS: ERGOCALCIFEROL 8,000 UNITS/ML DROPSBTL PO SCH (09:42)
[2018-02-22] MEDS: CHLORHEXIDINE GLUCONATE 0.12% 15ML CUP MM SCH ×2 (09:42→21:16)
[2018-02-22] MEDS ORDERED: fentaNYL CITRATE 250 MCG/5 ML VIAL ONE (10:02)
--- NOTE | 2018-02-22 10:31 | PN ---
Progress Note, Physician Chief Complaint: patient is sedated and intubated on heparin drip - Current Medication List Current Medications: Active Medications Acetaminophen (Tylenol Suppository -) 650 mg [place] Q6H PRN PRN Reason: FEVER Last Admin: 02/12/18 18:10 Dose: 650 mg Acetaminophen (Tylenol -) 650 mg PO Q6H PRN PRN Reason: PAIN LEVEL 1 - 3 Last Admin: 02/21/18 09:23 Dose: 650 mg Allopurinol (Zyloprim -) 100 mg PO BID [facility] Last Admin: 02/22/18 09:41 Dose: 100 mg Chlorhexidine Gluconate (Peridex -) 15 ml MM BID [facility] Last Admin: 02/22/18 09:42 Dose: 15 ml Cholecalciferol (Vitamin D3 -) 1,000 unit PO DAILY [facility] Dexamethasone Sodium Phosphate (Decadron Injection -) 10 mg IVPUSH BID [facility] Last Admin: 02/22/18 09:41 Dose: 10 mg Diphenhydramine HCl (Benadryl Injection -) 25 mg IVPB ONCE PRN PRN Reason: DURING PLASMAPHERESIS Enoxaparin Sodium (Lovenox -) 80 mg SQ DAILY [facility] Last Admin: 02/22/18 09:40 Dose: 80 mg Ergocalciferol (Drisdol Oral Solution -) 8,000 units PO DAILY [facility] Stop: 02/24/18 08:37 Last Admin: 02/22/18 09:42 Dose: 8,000 units Fentanyl 500 mcg/ Dextrose 100 mls @ 5 mls/hr IVPB TITR [facility]; Protocol Last Admin: 02/21/18 11:47 Dose: Not Given Ceftazidime 1 gm/ Dextrose 50 mls @ 200 mls/hr IVPB DAILY [facility]; Protocol Last Admin: 02/22/18 09:39 Dose: 200 mls/hr Propofol (Diprivan -) 1,000,000 mcg in 100 mls @ 2.479 mls/hr IVPB TITR [facility]; Protocol Last Admin: 02/22/18 05:38 Dose: Not Given Lactulose (Cephulac (Oral Use)) 20 gm PO TID [facility] Last Admin: 02/22/18 05:38 Dose: 20 gm Metoprolol Tartrate (Lopressor Injection -) 5 mg IVPUSH Q8H PRN PRN Reason: TACHYCARDIA Metoprolol Tartrate (Lopressor -) 50 mg PO BID [facility] Last Admin: 02/22/18 09:41 Dose: 50 mg Pantoprazole Sodium (Protonix Iv) 40 mg IVPUSH DAILY [facility] Last Admin: 02/22/18 09:41 Dose: 40 mg Thiamine HCl (Vitamin B1 -) 100 mg PO DAILY [facility] Last Admin: 02/22/18 09:41 Dose: 100 mg - Objective Vital Signs: Vital Signs Temperature 98 F 02/22/18 10:00 Pulse Rate 96 H 02/22/18 10:00 Respiratory Rate 16 02/22/18 10:00 Blood Pressure 118/77 02/22/18 10:00 O2 Sat by Pulse Oximetry (%) 98 02/21/18 20:39 HENT: Yes: Other Neck: Yes: Other (intubated) Cardiovascular: Yes: Regular Rate and Rhythm, S1, S2 Respiratory: Yes: Mechanically Ventilated Gastrointestinal: Yes: Normal Bowel Sounds, Soft Labs: CBC, BMP 02/22/18 05:30 02/22/18 05:30 INR, PTT INR 1.28 (0.83-1.09) H 02/22/18 05:30 Fibrinogen 290.0 mg/dL (238-498) 02/18/18 06:00 Problem List - Problems (1) Elevated LFTs Assessment/Plan: ultrasound of liver noted suggestive of acalculous cholecystitis, will get GI consult Code(s): R94.5 - ABNORMAL RESULTS OF LIVER FUNCTION STUDIES (2) MELITA (acute kidney injury) Assessment/Plan: bun/cr is better from 2.8 to 2.6 serum bicarb is now 22 corrected calcium Code(s): N17.9 - ACUTE KIDNEY FAILURE, UNSPECIFIED (3) Atrial fibrillation with RVR Assessment/Plan: heparin drip cardiac monitor technician rate control with metoprolol Code(s): I48.91 - UNSPECIFIED ATRIAL FIBRILLATION (4) Respiratory failure Assessment/Plan: intubated propofol/fentanyl Code(s): J96.90 - RESPIRATORY FAILURE, UNSP, UNSP W HYPOXIA OR HYPERCAPNIA (5) Toxic metabolic encephalopathy Assessment/Plan: Microbiology 02/21/18 11:20 Urine - Urine Brenner Urine Culture - Final NO GROWTH OBTAINED 02/13/18 14:30 Urine - Urine Brenner Legionella Antigen - Final 02/13/18 14:30 Urine - Urine Brenner Streptococcus pneumoniae Antigen (M - Final 02/13/18 14:30 Sputum - Endotrachea Suction/Ventilator Gram Stain - Final 02/13/18 14:30 Sputum - Endotrachea Suction/Ventilator Sputum Culture - Final Stenotrophomon.(X.)Maltophilia 02/21/18 09:58 Blood - Peripheral Venous Blood Culture - Preliminary NO GROWTH OBTAINED AFTER 24 HOURS, INCUBATION TO CONTINUE FOR 4 DAYS. 02/21/18 09:50 Blood - Peripheral Venous Blood Culture - Preliminary NO GROWTH OBTAINED AFTER 24 HOURS, INCUBATION TO CONTINUE FOR 4 DAYS. 02/17/18 15:00 Blood - Peripheral Venous Blood Culture - Preliminary NO GROWTH OBTAINED AFTER 96 HOURS, INCUBATION TO CONTINUE FOR 1 DAYS. 02/17/18 14:00 Blood - Central Line Blood Culture - Preliminary NO GROWTH OBTAINED AFTER 96 HOURS, INCUBATION TO CONTINUE FOR 1 DAYS. afebrile normal WBC repeat cultures as above on ceftazidime - Code(s): G92 - TOXIC ENCEPHALOPATHY (6) Altered mental status Assessment/Plan: maybe secondary to toxic metabolic encephalopathy neurology consult appreciated on lactulose TID still persistently elevated Nh3 level on steroid as well dexamethasone - no improvement in mental status s/p plasmapheresis dvt ppx lovenox Code(s): R41.82 - ALTERED MENTAL STATUS, UNSPECIFIED
--- NOTE | 2018-02-22 11:48 | PN ---
Progress Note (short form) - Note Progress Note: Renal follow up for Hypercalcemia/MELITA Pt seen and examined at the bedside on Vent via ET tube no overnight events making urine via francois no overt change in clinical status Vital Signs Temperature 98 F 02/22/18 10:00 Pulse Rate 96 H 02/22/18 10:00 Respiratory Rate 16 02/22/18 10:00 Blood Pressure 118/77 02/22/18 10:00 O2 Sat by Pulse Oximetry (%) 98 02/21/18 20:39 Intake & Output 02/19/18 02/20/18 02/21/18 02/22/18 23:59 23:59 23:59 23:59 Intake Total 2064 1377 960 860 Output Total 1000 1000 1325 350 Balance 1064 377 -365 510 Weight 83.971 kg 83.915 kg 83.518 kg 80.938 kg NAD on Vent RRR Dec BS, no rales no LE edema CBC, BMP 02/22/18 05:30 02/22/18 05:30 Current Medications Acetaminophen (Tylenol Suppository -) 650 mg [place] Q6H PRN PRN Reason: FEVER Last Admin: 02/12/18 18:10 Dose: 650 mg Acetaminophen (Tylenol -) 650 mg PO Q6H PRN PRN Reason: PAIN LEVEL 1 - 3 Last Admin: 02/21/18 09:23 Dose: 650 mg Allopurinol (Zyloprim -) 100 mg PO BID [facility] Last Admin: 02/22/18 09:41 Dose: 100 mg Chlorhexidine Gluconate (Peridex -) 15 ml MM BID [facility] Last Admin: 02/22/18 09:42 Dose: 15 ml Cholecalciferol (Vitamin D3 -) 1,000 unit PO DAILY [facility] Dexamethasone Sodium Phosphate (Decadron Injection -) 10 mg IVPUSH BID [facility] Last Admin: 02/22/18 09:41 Dose: 10 mg Diphenhydramine HCl (Benadryl Injection -) 25 mg IVPB ONCE PRN PRN Reason: DURING PLASMAPHERESIS Enoxaparin Sodium (Lovenox -) 80 mg SQ DAILY [facility] Last Admin: 02/22/18 09:40 Dose: 80 mg Ergocalciferol (Drisdol Oral Solution -) 8,000 units PO DAILY [facility] Stop: 02/24/18 08:37 Last Admin: 02/22/18 09:42 Dose: 8,000 units Fentanyl 500 mcg/ Dextrose 100 mls @ 5 mls/hr IVPB TITR [facility]; Protocol Last Admin: 02/21/18 11:47 Dose: Not Given Ceftazidime 1 gm/ Dextrose 50 mls @ 200 mls/hr IVPB DAILY [facility]; Protocol Last Admin: 02/22/18 09:39 Dose: 200 mls/hr Propofol (Diprivan -) 1,000,000 mcg in 100 mls @ 2.479 mls/hr IVPB TITR [facility]; Protocol Last Admin: 02/22/18 05:38 Dose: Not Given Lactulose (Cephulac (Oral Use)) 20 gm PO TID [facility] Last Admin: 02/22/18 05:38 Dose: 20 gm Metoprolol Tartrate (Lopressor Injection -) 5 mg IVPUSH Q8H PRN PRN Reason: TACHYCARDIA Metoprolol Tartrate (Lopressor -) 50 mg PO BID [facility] Last Admin: 02/22/18 09:41 Dose: 50 mg Metronidazole (Flagyl -) 500 mg PO TID [facility] Stop: 02/23/18 13:59 Pantoprazole Sodium (Protonix Iv) 40 mg IVPUSH DAILY [facility] Last Admin: 02/22/18 09:41 Dose: 40 mg Rifaximin (Xifaxan -) 550 mg PO BID [facility] Thiamine HCl (Vitamin B1 -) 100 mg PO DAILY [facility] Last Admin: 02/22/18 09:41 Dose: 100 mg 77 year old gentleman with hx of CKD, Afib on A/C, CAD, CKD, Hypertension, Hyperlipidemia, PVD who presented with AMS/Confusion and found to have MELITA. #MELITA ATN vs. 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 tubular injury, US showed no stones or obstruction, UA w/o protein but UPCR ~0.5 indicating non- albumin proteinuria) #AMS #Newly diagnosed multiple myloma #Anemia #Hypercalcemia of Malignancy (PTH is low) #Hyperdense lesion on US of the kidney #Normal anion gap metabolic acidosis Renal function essentially unchanged, BUN rising but likely due to steroids no acute indication for TRUST MANAGER ASSISTANT at this time continue supportive care, keep MAP > 65 Trend urine output Trend H/H, transfuse as per ICU parameters prognosis is poor Mack Miller DO
--- NOTE | 2018-02-22 11:55 | PN ---
Teaching Attending Note Name of Resident: Sebastián Oneil ATTENDING PHYSICIAN STATEMENT I saw and evaluated the patient. I reviewed the resident's note and discussed the case with the resident. I agree with the resident's findings and plan as documented. SUBJECTIVE: Pt seen and examined in the ICU. Remains intubated, sedated. Febrile overnight with rising LFTs. Abdominal ultrasound showing distended gall bladder with thickened wall. Contact made with daughter yesterday who states she will come visit today. OBJECTIVE: Vital Signs Period Temp Pulse Resp BP Sys/Ariza Pulse Ox Last 24 Hr 98 F-101.6 F 90-110 15- 100-135/71-94 98 Intake & Output 02/19/18 02/20/18 02/21/18 02/22/18 23:59 23:59 23:59 23:59 Intake Total 2064 1377 960 860 Output Total 1000 1000 1325 350 Balance 1064 377 -365 510 Weight 83.971 kg 83.915 kg 83.518 kg 80.938 kg Gen: intubated, sedated Heart: irregular Lung: scattered rhonchi Abd: soft, nontender Ext: no edema CBC, BMP 02/22/18 05:30 02/22/18 05:30 Active Medications Acetaminophen (Tylenol Suppository -) 650 mg [place] Q6H PRN PRN Reason: FEVER Last Admin: 02/12/18 18:10 Dose: 650 mg Acetaminophen (Tylenol -) 650 mg PO Q6H PRN PRN Reason: PAIN LEVEL 1 - 3 Last Admin: 02/21/18 09:23 Dose: 650 mg Allopurinol (Zyloprim -) 100 mg PO BID [facility] Last Admin: 02/22/18 09:41 Dose: 100 mg Chlorhexidine Gluconate (Peridex -) 15 ml MM BID [facility] Last Admin: 02/22/18 09:42 Dose: 15 ml Cholecalciferol (Vitamin D3 -) 1,000 unit PO DAILY [facility] Dexamethasone Sodium Phosphate (Decadron Injection -) 10 mg IVPUSH BID [facility] Last Admin: 02/22/18 09:41 Dose: 10 mg Diphenhydramine HCl (Benadryl Injection -) 25 mg IVPB ONCE PRN PRN Reason: DURING PLASMAPHERESIS Enoxaparin Sodium (Lovenox -) 80 mg SQ DAILY [facility] Last Admin: 02/22/18 09:40 Dose: 80 mg Ergocalciferol (Drisdol Oral Solution -) 8,000 units PO DAILY [facility] Stop: 02/24/18 08:37 Last Admin: 02/22/18 09:42 Dose: 8,000 units Fentanyl 500 mcg/ Dextrose 100 mls @ 5 mls/hr IVPB TITR [facility]; Protocol Last Admin: 02/21/18 11:47 Dose: Not Given Ceftazidime 1 gm/ Dextrose 50 mls @ 200 mls/hr IVPB DAILY [facility]; Protocol Last Admin: 02/22/18 09:39 Dose: 200 mls/hr Propofol (Diprivan -) 1,000,000 mcg in 100 mls @ 2.479 mls/hr IVPB TITR [facility]; Protocol Last Admin: 02/22/18 05:38 Dose: Not Given Lactulose (Cephulac (Oral Use)) 20 gm PO TID [facility] Last Admin: 02/22/18 05:38 Dose: 20 gm Metoprolol Tartrate (Lopressor Injection -) 5 mg IVPUSH Q8H PRN PRN Reason: TACHYCARDIA Metoprolol Tartrate (Lopressor -) 50 mg PO BID [facility] Last Admin: 02/22/18 09:41 Dose: 50 mg Metronidazole (Flagyl -) 500 mg PO TID [facility] Stop: 02/23/18 13:59 Pantoprazole Sodium (Protonix Iv) 40 mg IVPUSH DAILY [facility] Last Admin: 02/22/18 09:41 Dose: 40 mg Rifaximin (Xifaxan -) 550 mg PO BID [facility] Thiamine HCl (Vitamin B1 -) 100 mg PO DAILY [facility] Last Admin: 02/22/18 09:41 Dose: 100 mg ASSESSMENT AND PLAN: Acute Hypoxic Respiratory Failure Altered Mental Status Metabolic Encephalopathy Pneumonia Acalculous Cholecystitis Multiple Myeloma Acute on Chronic Renal Failure Metabolic Acidosis LV Diastolic Dysfunction Atrial Fibrillation CAD +Troponins likely Demand Ischemia PAD Hyperlipidemia HTN - continue antibiotics - f/u cultures - GI eval for cholecystitis - trend LFTs - decadron per oncology - monitor urine output, creatinine - rate control - continue anticoagulation - minimize sedation to assess mental status - spontaneous breathing trials as tolerated but would not extubate until mental status improved - hold enteral feeds - DVT/GI prophylaxis - continue discussions regarding goals of care, will likely need tracheostomy - palliative care on board - continue ICU monitoring - poor overall prognosis critical care time spent in reviewing chart, evaluating patient and formulating plan 35 min
--- NOTE | 2018-02-22 12:13 | PN ---
Progress Note, Physician History of Present Illness: Poorly responsive on vent, rate-controlled persistent afib on lopressor and heparin gtt. - Current Medication List Current Medications: Active Medications Acetaminophen (Tylenol Suppository -) 650 mg [place] Q6H PRN PRN Reason: FEVER Last Admin: 02/12/18 18:10 Dose: 650 mg Acetaminophen (Tylenol -) 650 mg PO Q6H PRN PRN Reason: PAIN LEVEL 1 - 3 Last Admin: 02/21/18 09:23 Dose: 650 mg Allopurinol (Zyloprim -) 100 mg PO BID [facility] Last Admin: 02/22/18 09:41 Dose: 100 mg Chlorhexidine Gluconate (Peridex -) 15 ml MM BID [facility] Last Admin: 02/22/18 09:42 Dose: 15 ml Cholecalciferol (Vitamin D3 -) 1,000 unit PO DAILY [facility] Dexamethasone Sodium Phosphate (Decadron Injection -) 10 mg IVPUSH BID [facility] Last Admin: 02/22/18 09:41 Dose: 10 mg Diphenhydramine HCl (Benadryl Injection -) 25 mg IVPB ONCE PRN PRN Reason: DURING PLASMAPHERESIS Enoxaparin Sodium (Lovenox -) 80 mg SQ DAILY [facility] Last Admin: 02/22/18 09:40 Dose: 80 mg Ergocalciferol (Drisdol Oral Solution -) 8,000 units PO DAILY [facility] Stop: 02/24/18 08:37 Last Admin: 02/22/18 09:42 Dose: 8,000 units Fentanyl 500 mcg/ Dextrose 100 mls @ 5 mls/hr IVPB TITR [facility]; Protocol Last Admin: 02/21/18 11:47 Dose: Not Given Ceftazidime 1 gm/ Dextrose 50 mls @ 200 mls/hr IVPB DAILY [facility]; Protocol Last Admin: 02/22/18 09:39 Dose: 200 mls/hr Propofol (Diprivan -) 1,000,000 mcg in 100 mls @ 2.479 mls/hr IVPB TITR [facility]; Protocol Last Admin: 02/22/18 05:38 Dose: Not Given Lactulose (Cephulac (Oral Use)) 20 gm PO TID [facility] Last Admin: 02/22/18 05:38 Dose: 20 gm Metoprolol Tartrate (Lopressor Injection -) 5 mg IVPUSH Q8H PRN PRN Reason: TACHYCARDIA Metoprolol Tartrate (Lopressor -) 50 mg PO BID [facility] Last Admin: 02/22/18 09:41 Dose: 50 mg Metronidazole (Flagyl -) 500 mg PO TID [facility] Stop: 02/23/18 13:59 Pantoprazole Sodium (Protonix Iv) 40 mg IVPUSH DAILY [facility] Last Admin: 02/22/18 09:41 Dose: 40 mg Rifaximin (Xifaxan -) 550 mg PO BID [facility] Thiamine HCl (Vitamin B1 -) 100 mg PO DAILY [facility] Last Admin: 02/22/18 09:41 Dose: 100 mg - Objective Vital Signs: Vital Signs Temperature 98 F 02/22/18 10:00 Pulse Rate 96 H 02/22/18 10:00 Respiratory Rate 16 02/22/18 10:00 Blood Pressure 118/77 02/22/18 10:00 O2 Sat by Pulse Oximetry (%) 98 02/21/18 20:39 Constitutional: Yes: No Distress, Calm Neck: Yes: Supple Cardiovascular: Yes: Pulse Irregular, Murmur (2/6 SM) Respiratory: Yes: Intubated, Mechanically Ventilated Gastrointestinal: Yes: Normal Bowel Sounds, Soft Edema: No Labs: CBC, BMP 02/22/18 05:30 02/22/18 05:30 INR, PTT INR 1.28 (0.83-1.09) H 02/22/18 05:30 Fibrinogen 290.0 mg/dL (238-498) 02/18/18 06:00 - ....Imaging Chest X-ray: Report Reviewed (Increased ABDELRAHMAN infiltrate) Ultrasound: Report Reviewed (Acalculous cholecystitis) EKG: Report Reviewed (Tele: Afib) Problem List - Problems (1) Atrial fibrillation with RVR Code(s): I48.91 - UNSPECIFIED ATRIAL FIBRILLATION (2) [id number] kidney injury Code(s): N17.9 - ACUTE KIDNEY FAILURE, UNSPECIFIED; N18.9 - CHRONIC KIDNEY DISEASE, UNSPECIFIED Qualifiers: Acute renal failure type: unspecified Chronic kidney disease stage: unspecified stage Qualified Code(s): N17.9 - Acute kidney failure, unspecified ; N18.9 - Chronic kidney disease, unspecified (3) Demand ischemia Code(s): I24.8 - OTHER FORMS OF ACUTE ISCHEMIC HEART DISEASE (4) Hypercalcemia Code(s): E83.52 - HYPERCALCEMIA (5) Nonadherence to medication Code(s): Z91.14 - PATIENT'S OTHER NONCOMPLIANCE WITH MEDICATION REGIMEN (6) Paraproteinemia Code(s): D89.2 - HYPERGAMMAGLOBULINEMIA, UNSPECIFIED (7) Anticoagulant long-term use Code(s): Z79.01 - ACID DIPPER (CURRENT) USE OF ANTICOAGULANTS (8) Chronic thromboembolic disease Code(s): I74.9 - EMBOLISM AND THROMBOSIS OF UNSPECIFIED ARTERY (9) Coronary artery disease Code(s): I25.10 - ATHSCL HEART DISEASE OF [place] CORONARY ARTERY W/O ANG PCTRS Qualifiers: Coronary Disease-Associated Artery/Lesion type: [place] artery [place] vs. transplanted heart: [place] heart Associated angina: without angina Qualified Code(s): I25.10 - Atherosclerotic heart disease of [place] coronary artery without angina pectoris (10) Diastolic dysfunction without heart failure Code(s): I51.9 - HEART DISEASE, UNSPECIFIED (11) HTN (hypertension) Code(s): I10 - ESSENTIAL (PRIMARY) HYPERTENSION Qualifiers: Hypertension type: essential hypertension Qualified Code(s): I10 - Essential (primary) hypertension (12) Hypertrophic cardiomyopathy Code(s): I42.2 - OTHER HYPERTROPHIC CARDIOMYOPATHY (13) Hyperlipidemia Code(s): E78.5 - HYPERLIPIDEMIA, UNSPECIFIED Qualifiers: Hyperlipidemia type: pure hypercholesterolemia Qualified Code(s): E78.00 - Pure hypercholesterolemia, unspecified; E78.0 - Pure hypercholesterolemia (14) Multiple myeloma Code(s): C90.00 - MULTIPLE MYELOMA NOT HAVING ACHIEVED REMISSION Qualifiers: Multiple myeloma remission status: not in remission Qualified Code(s): C90.00 - Multiple myeloma not having achieved remission (15) Acalculous cholecystitis Code(s): K81.9 - CHOLECYSTITIS, UNSPECIFIED Assessment/Plan R&LHc at [facility] 04/20/2016 showing nonobstructive CAD, severe LV apical hypertrophic cardiomyopathy, mildly elevated right sided pressures, Mynx deployed right [employer] access site. 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 Echocardiogram: 10/18/2017 Mod cLVH, severe PURVI, mod TR RVSP 50-60 mmHg, mod- severe MR Echocardiogram: 01/23/2018 Normal LV size with hyperdynamic LVEF 75%, mild BSH, normal RV size and fxn, severe LAE, mod-severe MR, mod TR 1. Acute hypoxic respiratory failure, suspected aspiration pneumonia 2. Toxic metabolic encephelopathy, possible hyperviscosity syndrome, sepsis 3. Acute on CKD (suspect myeloma kidney) 4. Hypercalcemia, paraproteinemia, anemia-> confirmed multiple myeloma, hyperviscosity syndrome 5. History of bilateral SFA occlusion post thrombectomy, referable to embolic disease related to persistent atrial fibrillation with [id number] score of 6, history of poor compliance with anticoagulation and medical F/U 6. Non obstructive CAD on R&LHc coronary angiography with demand ischemia 7. LV diastolic dysfunction related to apical hypertrophic cardiomyopathy, subendocardial ischemia, compensated/euvolemic 8. Persistent atrial fibrillation with RVR [id number] score of 6 on heparin gtt 9. Labile HTN 10. Acalculous Cholecystitis PLAN: 1. Lovenox for now while off Xarelto 15 qd (renal dosing) 2. Continue Lopressor 50 bid as hemodynamics tolerate with IV Lopressor as needed for rate-control 3. Empiric renal-dosed abx course pending C&S 4. Enteral feeds, lactulose for hyperammonemia, monitor ammonia levels 5. Ventilator management, wean off sedation, IV steroids with GI protection 6. Consider cholecystotomy decompression per GI recs
--- NOTE | 2018-02-22 13:41 | PN ---
Physical Exam: SUBJECTIVE: Patient seen and examined at bedside. He remains intubated and sedated. He was febrile ysterday to 101.6. US was performed and showed a thickened gallbladder wall, pericholecystic fluid, which likely represents acalculous cholecystitis. There was also mild dilatation of the CBD but that might be normal for age. Patient's ammonia was elevated today to 97.05 despite being on lactulose. LFTs are also elevated. ALT: 604. AST: 678. Patient's oldest daughter called the hospital and said she did not know that her father was hospitalized. She states she is the next of kin and said she will come visit him in the hospital today. She said he is full code and all supportive measures should be performed. OBJECTIVE: Vital Signs Period Temp Pulse Resp BP Sys/Ariza Pulse Ox Last 24 Hr 98 F-100.7 F 90-110 15-21 100-135/71-94 98 GENERAL: The patient is intubated and sedated. HEAD: Normal with no signs of trauma. EYES: PERRL, sclera anicteric. ENT: Ears normal, nares patent, dry mucous membranes NECK: Trachea midline. LUNGS: bilateral diffuse rhonchi HEART: Tachycardic rate and irregular rhythm. ABDOMEN: Soft, nondistended. EXTREMITIES: 2+ pulses, warm, well-perfused, no edema, scattered ulcers. NEUROLOGICAL: Cannot assess secondary to clinical condition. SKIN: Warm, dry, normal turgor, scattered ulcers on the legs Laboratory Results - last 24 hr 02/12/18 02/16/18 02/21/18 16:00 09:11 12:30 WBC RBC Hgb Hct MCV MCH MCHC RDW Plt Count MPV Absolute Neuts (auto) Neutrophils % Lymphocytes % Monocytes % Eosinophils % Basophils % Nucleated RBC % Blood Viscosity 4.0 H PT with INR INR Anticoagulation Therapy Puncture Site ABG pH ABG pCO2 at Pt Temp ABG pO2 at Pt Temp ABG HCO3 ABG O2 Sat (Measured) ABG O2 Content ABG Base Excess Vinny Test O2 Delivery Device Oxygen Flow Rate Vent Mode Vent Rate Mechanical Rate PEEP Pressure Support Vent Sodium Potassium Chloride Carbon Dioxide Anion Gap BUN Creatinine Creat Clearance w eGFR Random Glucose Lactic Acid Calcium Phosphorus Magnesium Total Bilirubin AST ALT Alkaline Phosphatase Ammonia Troponin I Total Protein Albumin Stool Occult Blood Negative Blood Type B POSITIVE Antibody Screen Negative Crossmatch See Detail 02/22/18 02/22/18 02/22/18 05:30 05:30 05:30 WBC RBC Hgb Hct MCV MCH MCHC RDW Plt Count MPV Absolute Neuts (auto) Neutrophils % Lymphocytes % Monocytes % Eosinophils % Basophils % Nucleated RBC % Blood Viscosity PT with INR 15.10 H INR 1.28 H Anticoagulation Therapy Puncture Site ABG pH ABG pCO2 at Pt Temp ABG pO2 at Pt Temp ABG HCO3 ABG O2 Sat (Measured) ABG O2 Content ABG Base Excess Vinny Test O2 Delivery Device Oxygen Flow Rate Vent Mode Vent Rate Mechanical Rate PEEP Pressure Support Vent Sodium 140 Potassium 5.3 H Chloride 114 H Carbon Dioxide 22 Anion Gap 5 L BUN 98 H Creatinine 2.6 H Creat Clearance w eGFR 23.93 Random Glucose 217 H Lactic Acid Calcium 6.5 L* Phosphorus 5.4 H Magnesium 3.0 H Total Bilirubin 0.3 AST 678 H ALT 604 H Alkaline Phosphatase 188 H Ammonia 97.05 H Troponin I Total Protein 10.4 H Albumin 1.9 L Stool Occult Blood Blood Type Antibody Screen Crossmatch 02/22/18 02/22/18 02/22/18 05:30 05:30 05:30 WBC 8.9 RBC 2.71 L Hgb 8.2 L Hct 24.6 L MCV 90.8 MCH 30.1 MCHC 33.1 RDW 16.9 H Plt Count 214 MPV 8.8 Absolute Neuts (auto) 7.5 Neutrophils % 84.4 H Lymphocytes % 11.2 Monocytes % 4.1 Eosinophils % 0.1 Basophils % 0.2 Nucleated RBC % 10 H Blood Viscosity PT with INR INR Anticoagulation Therapy Puncture Site ABG pH ABG pCO2 at Pt Temp ABG pO2 at Pt Temp ABG HCO3 ABG O2 Sat (Measured) ABG O2 Content ABG Base Excess Vinny Test O2 Delivery Device Oxygen Flow Rate Vent Mode Vent Rate Mechanical Rate PEEP Pressure Support Vent Sodium Potassium Chloride Carbon Dioxide Anion Gap BUN Creatinine Creat Clearance w eGFR Random Glucose Lactic Acid 1.2 Calcium Phosphorus Magnesium Total Bilirubin AST ALT Alkaline Phosphatase Ammonia Troponin I 0.47 H Total Protein Albumin Stool Occult Blood Blood Type Antibody Screen Crossmatch 02/22/18 05:50 WBC RBC Hgb Hct MCV MCH MCHC RDW Plt Count MPV Absolute Neuts (auto) Neutrophils % Lymphocytes % Monocytes % Eosinophils % Basophils % Nucleated RBC % Blood Viscosity PT with INR INR Anticoagulation Therapy No Result Required. Puncture Site Right radial ABG pH 7.29 L ABG pCO2 at Pt Temp 41.7 ABG pO2 at Pt Temp 94.0 ABG HCO3 19.3 L ABG O2 Sat (Measured) 96.3 ABG O2 Content 14.3 L ABG Base Excess -6.4 L Vinny Test Positive O2 Delivery Device Mech vent Oxygen Flow Rate 40 Vent Mode A/c prvc Vent Rate 14 Mechanical Rate No Result Required. PEEP 5.0 Pressure Support Vent 500 Sodium Potassium Chloride Carbon Dioxide Anion Gap BUN Creatinine Creat Clearance w eGFR Random Glucose Lactic Acid Calcium Phosphorus Magnesium Total Bilirubin AST ALT Alkaline Phosphatase Ammonia Troponin I Total Protein Albumin Stool Occult Blood Blood Type Antibody Screen Crossmatch Active Medications Generic Name Dose Route Start Last Admin Trade Name Freq PRN Reason Stop Dose Admin Acetaminophen 650 mg 02/08/18 05:44 02/12/18 18:10 Tylenol Suppository - [place] 650 mg Q6H PRN Administration FEVER Acetaminophen 650 mg 02/17/18 14:09 02/21/18 09:23 Tylenol - PO 650 mg Q6H PRN Administration PAIN LEVEL 1 - 3 Allopurinol 100 mg 02/16/18 10:00 02/22/18 09:41 Zyloprim - PO 100 mg BID [facility] Administration Chlorhexidine Gluconate 15 ml 02/17/18 23:45 02/22/18 09:42 Peridex - MM 15 ml BID [facility] Administration Cholecalciferol 1,000 unit 02/25/18 10:00 Vitamin D3 - PO DAILY [facility] Dexamethasone Sodium Phosphate 10 mg 02/17/18 12:15 02/22/18 09:41 Decadron Injection - IVPUSH 10 mg BID [facility] Administration Diphenhydramine HCl 25 mg 02/16/18 12:00 Benadryl Injection - IVPB ONCE PRN DURING PLASMAPHERESIS Enoxaparin Sodium 80 mg 02/21/18 12:00 02/22/18 09:40 Lovenox - SQ 80 mg DAILY [facility] Administration Ergocalciferol 8,000 units 02/18/18 10:00 02/22/18 09:42 Drisdol Oral Solution - PO 02/24/18 08:37 8,000 units DAILY [facility] Administration Fentanyl 500 mcg/ Dextrose 100 mls @ 5 mls/hr 02/14/18 11:45 02/21/18 11:47 IVPB Not Given TITR [facility] Protocol 25 MCG/HR Ceftazidime 1 gm/ Dextrose 50 mls @ 200 mls/hr 02/18/18 12:00 02/22/18 09:39 IVPB 200 mls/hr DAILY [facility] Administration Protocol Propofol 1,000,000 mcg in 100 mls @ 2.479 mls/hr 02/18/18 13:45 02/22/18 05: 38 Diprivan - IVPB Not Given TITR [facility] Protocol 5 MCG/KG/MIN Lactulose 20 gm 02/16/18 09:38 02/22/18 05:38 Cephulac (Oral Use) PO 20 gm TID [facility] Administration Metoprolol Tartrate 5 mg 02/16/18 13:04 Lopressor Injection - IVPUSH Q8H PRN TACHYCARDIA Metoprolol Tartrate 50 mg 02/21/18 09:40 02/22/18 09:41 Lopressor - PO 50 mg BID [facility] Administration Metronidazole 500 mg 02/22/18 14:00 Flagyl - PO 02/23/18 13:59 TID [facility] Pantoprazole Sodium 40 mg 02/14/18 12:00 02/22/18 09:41 Protonix Iv IVPUSH 40 mg DAILY [facility] Administration Rifaximin 550 mg 02/22/18 22:00 Xifaxan - PO BID [facility] Thiamine HCl 100 mg 02/06/18 22:12 02/22/18 09:41 Vitamin B1 - PO 100 mg DAILY [facility] Administration ASSESSMENT/PLAN: He was febrile yesterday to 101.6. US was performed and showed a thickened gallbladder wall, pericholecystic fluid, which likely represents acalculous cholecystitis. There was also mild dilatation of the CBD but that might be normal for age. Patient's ammonia was elevated today to 97.05 despite being on lactulose. LFTs are also elevated. ALT: 604. AST: 678. Patient's oldest daughter called the hospital and said she did not know that her father was hospitalized. She states she is the next of kin and said she will come visit him in the hospital today. She said he is full code and all supportive measures should be performed. - We have added rifaximin given the elevated ammonia level despite lactulose. - Started patient on Flagyl, in addition to his ceftazidime as a result of his acalculous cholecystitis. - Spoke with ID - they are on board with new ABx additions. - GI consult placed (Dr. Bennett). Spoke with him on phone. Recommendations appreciated. - We will start holding off lovenox tomorrow in case patient needs operation. - Asking oncology how long they want to continue decadron as it is likely contributing to his MELITA. - Palliative care on the case Plan: ID: - Rhonchi heard on Lung auscultation - CXR shows pulmonary infiltrate in the left upper lobe - Abx coverage switched to ceftazidime. - ID on board - Added flagyl for acalculous cholecystitis - Added rifaximin for elevated ammonia level Cardio: - Sporadically goes in and out of V-Tach - Cards recommends restarting Lopressor 25 mg BID PO - Afib w RVR: Patient is receiving metoprolol 5 mg PRN - diastolic dysfunction + hypertrophic cardiomyopathy - CAD with multiple stents - Cardio consulted and on board. Pulm: - Intubated - Patient has b/l pleural effusions. - Giving 60 of lasix today. - No pneumothorax - b/l diffuse rhonchi - infiltrate on CXR: Abx- ceftazidime Renal: - Acute on Chronic kidney injury - BUN: 98 Cr:2.6. Pre-renal etiology. - Renal consulted and on board. Neuro: - Patient is not alert or oriented. - Head CT showed no acute pathology - Neuro consulted and on board. (Dr. Kuo + Dr. mejia) - Ammonia elevated - Patient receiving lactulose - We added rifaximin to the medication regimen today for elevated ammonia. Heme/Onc: - Hb today was 8.2 - Will transfuse tp keep hb > 8 - Patient not receiving plasmapharesis today. - Patient has hypocalcemia today - Will replete. - Paraproteinemia - Patient fulfills new criteria for multiple myeloma with free kappa/ free lambda light chain ratio of 432 (>100 is diagnostic of myeloma) - [place]/Lambda ratio > 100 consistent with Multiple myeloma - M spike elevated elevated at 6.8 previously 4.7 Endo: - Hypocalcemia - Glucose wnl - Parathyroid hormone WNL - PTH-borderline low appropriate given hypercalcemia, PTHrP low Prophylaxis: - Will stop lovenox tomorrow - Protonix F/E/N: F: No standing fluids due to fluid overload in lungs E: Will replete lytes PRN N: tube feeds. Code Status: Full Code - Continue speaking with family for goals of care. - Patient will likely need a trach Dispo: Patient will continue to receive ICU level care Visit type - Emergency Visit Emergency Visit: Yes ED Registration Date: 02/06/18 Care time: The patient presented to the Emergency Department on the above date and was hospitalized for further evaluation of their emergent condition. - New Patient This patient is new to me today: No - Critical Care Critical Care patient: Yes Total Critical Care Time (in minutes): 36 Critical Care Statement: The care of this patient involved high complexity decision making to prevent further life threatening deterioration of the patient 's condition and/or to evaluate & treat vital organ system(s) failure or risk of failure.
[2018-02-22 14:39] LABS: ACANTHOCYTES 0; ANISOCYTOSIS 0; HELMET CELLS 0; HOWELL-JOLLY BODIES 0; MACROCYTOSIS 0; OVALOCYTE 0; PLATELET ESTIMATE NORMAL; ROULEAU 0; SICKELED CELLS 0; TARGET CELLS 0; TEAR DROP CELLS 0; TOXIC GRANULATION 0
[2018-02-22] MEDS: FENTANYL INJECTION 500 MCG in DEXTROSE 5%-WATER - 90 ML IVPB SCH (15:03)
[2018-02-22] MEDS: metroNIDAZOLE 250 MG TABLET PO SCH ×2 (15:03→21:15)
[2018-02-22] MEDS ORDERED: ACETAMINOPHEN 650 MG SUPP.RECT RC PRN (15:54)
[2018-02-22] MEDS: ACETAMINOPHEN 325 MG TABLET (FP) PO PRN (16:36)
--- NOTE | 2018-02-22 17:39 | CON.GI ---
Consult Consult Specialty:: GI Referred by:: Dr Serna - History of Present Illness History of Present Illness: &7 y/o male was asked to be seen because of severe hepatocellular injury. Patient has multiple medical problems including multiple myeloma, hyperviscosity syndrome, metabolic encephalopathy, Respiratory failure, Pneumonia, sepsis CKD was noted to have severe elevation of his liver enzymes. There were no reports of abdomnal pain. The abdominal ultrasound revealed possible acalculaous cholecystits and top normal CBD. - Past Medical History Cardio/Vascular: Yes: AFIB, HTN, [place] Renal/: Yes: Renal Failure, Renal Inusuff Additional Medical History: peripheral arterial diseases/p stent in LLE - Past Surgical History Past Surgical History: Yes: Hernia Repair - Alcohol/Substance Use Hx Alcohol Use: Yes History of Substance Use: reports: None - Smoking History Smoking history: Former smoker Have you smoked in the past 12 months: No Aproximately how many cigarettes per day: 10 If you are a former smoker, when did you quit?: 04.06.16 Home Medications - Allergies Allergies/Adverse Reactions: Allergies Allergy/AdvReac Type Severity Reaction Status Date / Time valsartan Allergy Severe Verified 02/06/18 16:47 - Home Medications Home Medications: Ambulatory Orders Atorvastatin Ca [Lipitor] 40 mg PO HS #30 tablet 10/19/17 Rivaroxaban [Xarelto -] 20 mg PO DAILY@1800 #30 tablet 10/19/17 Carvedilol [Coreg -] 6.25 mg PO BID #60 tablet 01/24/18 Review of Systems Unable to obtain ROS, reason: --intubated Physical Exam-GI Vital Signs: Vital Signs Temperature 98 F 02/22/18 10:00 Pulse Rate 110 H 02/22/18 14:00 Respiratory Rate 17 02/22/18 16:06 Blood Pressure 111/76 02/22/18 14:00 O2 Sat by Pulse Oximetry (%) 98 02/21/18 20:39 Constitutional: Yes: No Distress Eyes: Yes: Conjunctiva Clear HENT: Yes: Atraumatic Neck: Yes: Supple Cardiovascular: Yes: Regular Rate and Rhythm Respiratory: Yes: CTA Bilaterally ...Palpate: Yes: Soft. No: Firm/Rigid, Guarding, Hepatomegaly, Mass, Pulsatile Mass, Splenomegaly, Tenderness Labs: CBC, BMP 02/22/18 05:30 02/22/18 05:30 INR, PTT INR 1.28 (0.83-1.09) H 02/22/18 05:30 Fibrinogen 290.0 mg/dL (238-498) 02/18/18 06:00 Current Medications Generic Name Dose Route Start Last Admin Trade Name Freq PRN Reason Stop Dose Admin Acetaminophen 650 mg 02/17/18 14:09 02/23/18 06:36 Tylenol - PO 650 mg Q6H PRN Administration PAIN LEVEL 1 - 3 Acetaminophen 650 mg 02/22/18 15:54 Tylenol Suppository - RC Q6H PRN FEVER Allopurinol 100 mg 02/16/18 10:00 02/23/18 09:02 Zyloprim - PO 100 mg BID [facility] Administration Chlorhexidine Gluconate 15 ml 02/17/18 23:45 02/23/18 09:03 Peridex - MM 15 ml BID [facility] Administration Cholecalciferol 1,000 unit 02/25/18 10:00 Vitamin D3 - PO DAILY [facility] Dexamethasone Sodium Phosphate 10 mg 02/17/18 12:15 02/23/18 09:03 Decadron Injection - IVPUSH 10 mg BID [facility] Administration Diphenhydramine HCl 25 mg 02/16/18 12:00 Benadryl Injection - IVPB ONCE PRN DURING PLASMAPHERESIS Ergocalciferol 8,000 units 02/18/18 10:00 02/23/18 09:02 Drisdol Oral Solution - PO 02/24/18 08:37 8,000 units DAILY [facility] Administration Fentanyl 500 mcg/ Dextrose 100 mls @ 5 mls/hr 02/14/18 11:45 02/22/18 15:03 IVPB 25 mcg/hr TITR [facility] 5 mls/hr Administration Protocol 25 MCG/HR Ceftazidime 1 gm/ Dextrose 50 mls @ 200 mls/hr 02/18/18 12:00 02/23/18 09:01 IVPB 200 mls/hr DAILY [facility] Administration Protocol Propofol 1,000,000 mcg in 100 mls @ 2.479 mls/hr 02/18/18 13:45 02/22/18 21: 14 Diprivan - IVPB 10 mcg/kg/min TITR [facility] 4.958 mls/hr Administration Protocol 5 MCG/KG/MIN Vancomycin HCl 1,000 mg in 250 mls @ 166.667 mls/hr 02/23/18 11:15 Vancomycin (Pre-Docked) IVPB 02/23/18 12:44 ONCE ONE Protocol Lactulose 20 gm 02/16/18 09:38 02/23/18 05:48 Cephulac (Oral Use) PO 20 gm TID [facility] Administration Metoprolol Tartrate 5 mg 02/16/18 13:04 Lopressor Injection - IVPUSH Q8H PRN TACHYCARDIA Metoprolol Tartrate 75 mg 02/23/18 08:30 02/23/18 09:02 Lopressor - PO 75 mg BID [facility] Administration Metronidazole 500 mg 02/22/18 14:00 02/23/18 05:48 Flagyl - PO 02/23/18 13:59 500 mg TID [facility] Administration Pantoprazole Sodium 40 mg 02/14/18 12:00 02/23/18 09:04 Protonix Iv IVPUSH 40 mg DAILY [facility] Administration Rifaximin 550 mg 02/22/18 22:00 02/23/18 09:02 Xifaxan - PO 550 mg BID [facility] Administration Thiamine HCl 100 mg 02/06/18 22:12 02/23/18 09:02 Vitamin B1 - PO 100 mg DAILY [facility] Administration Problem List - Problems (1) Elevated LFTs Assessment/Plan: most likely secondary to ischemic hepatits which is multifactorial including sepsis, episodes of hypotension and hyperviscosity syndrome R> keep well hydrated keep MAP greater than 60 patieint with poor prognosis Code(s): R94.5 - ABNORMAL RESULTS OF LIVER FUNCTION STUDIES (2) Acalculous cholecystitis Assessment/Plan: R> will need consulation with IR to evaluate as patient is high risk for any procedure Code(s): K81.9 - CHOLECYSTITIS, UNSPECIFIED
--- NOTE | 2018-02-22 19:50 | PN ---
Progress Note, Physician History of Present Illness: Intubated on mechanical ventilation Poorly responsive Temps down Repeat BC no growth Sputum c/s (R) xanthomonas - Current Medication List Current Medications: Active Medications Acetaminophen (Tylenol -) 650 mg PO Q6H PRN PRN Reason: PAIN LEVEL 1 - 3 Last Admin: 02/22/18 16:36 Dose: 650 mg Acetaminophen (Tylenol Suppository -) 650 mg RC Q6H PRN PRN Reason: FEVER Allopurinol (Zyloprim -) 100 mg PO BID [facility] Last Admin: 02/22/18 09:41 Dose: 100 mg Chlorhexidine Gluconate (Peridex -) 15 ml MM BID [facility] Last Admin: 02/22/18 09:42 Dose: 15 ml Cholecalciferol (Vitamin D3 -) 1,000 unit PO DAILY [facility] Dexamethasone Sodium Phosphate (Decadron Injection -) 10 mg IVPUSH BID [facility] Last Admin: 02/22/18 09:41 Dose: 10 mg Diphenhydramine HCl (Benadryl Injection -) 25 mg IVPB ONCE PRN PRN Reason: DURING PLASMAPHERESIS Ergocalciferol (Drisdol Oral Solution -) 8,000 units PO DAILY [facility] Stop: 02/24/18 08:37 Last Admin: 02/22/18 09:42 Dose: 8,000 units Fentanyl 500 mcg/ Dextrose 100 mls @ 5 mls/hr IVPB TITR [facility]; Protocol Last Admin: 02/22/18 15:03 Dose: 25 mcg/hr, 5 mls/hr Ceftazidime 1 gm/ Dextrose 50 mls @ 200 mls/hr IVPB DAILY [facility]; Protocol Last Admin: 02/22/18 09:39 Dose: 200 mls/hr Propofol (Diprivan -) 1,000,000 mcg in 100 mls @ 2.479 mls/hr IVPB TITR [facility]; Protocol Last Admin: 02/22/18 05:38 Dose: Not Given Lactulose (Cephulac (Oral Use)) 20 gm PO TID [facility] Last Admin: 02/22/18 15:03 Dose: 20 gm Metoprolol Tartrate (Lopressor Injection -) 5 mg IVPUSH Q8H PRN PRN Reason: TACHYCARDIA Metoprolol Tartrate (Lopressor -) 50 mg PO BID [facility] Last Admin: 02/22/18 09:41 Dose: 50 mg Metronidazole (Flagyl -) 500 mg PO TID [facility] Stop: 02/23/18 13:59 Last Admin: 02/22/18 15:03 Dose: 500 mg Pantoprazole Sodium (Protonix Iv) 40 mg IVPUSH DAILY [facility] Last Admin: 02/22/18 09:41 Dose: 40 mg Rifaximin (Xifaxan -) 550 mg PO BID [facility] Thiamine HCl (Vitamin B1 -) 100 mg PO DAILY [facility] Last Admin: 02/22/18 09:41 Dose: 100 mg - Objective Vital Signs: Vital Signs Temperature 100.2 F H 02/22/18 16:00 Pulse Rate 109 H 02/22/18 18:00 Respiratory Rate 17 02/22/18 18:35 Blood Pressure 116/66 02/22/18 18:00 O2 Sat by Pulse Oximetry (%) 98 02/21/18 20:39 Constitutional: Yes: No Distress Cardiovascular: Yes: Regular Rate and Rhythm, S1, S2 Respiratory: Yes: Mechanically Ventilated Gastrointestinal: Yes: Normal Bowel Sounds, Soft Labs: CBC, BMP 02/22/18 05:30 02/22/18 05:30 INR, PTT INR 1.28 (0.83-1.09) H 02/22/18 05:30 Fibrinogen 290.0 mg/dL (238-498) 02/18/18 06:00 Assessment/Plan Respiratory failure RLL pneumonia Acalculus Cholecystitis Toxic metabolic encephalopathy Hypercalcemia Renal failure Myeloma Hyperviscosity syndrome Continue ceftazidime/flagyl, adjusted for renal failure Ventilatory support
[2018-02-22] MEDS: RIFAXIMIN 550 MG TABLET (UD) PO SCH (21:16)
[2018-02-23] MEDS: LACTULOSE 20 GM/30 ML UDC (FOR ORAL USE ONLY) PO SCH ×3 (05:48→21:04)
[2018-02-23] MEDS: metroNIDAZOLE 250 MG TABLET PO SCH (05:48)
[2018-02-23] MEDS: ALBUTEROL SO4 0.083% IH SOL 2.5 MG/3 ML VIAL.NEB. NEB SCH ×7 (06:30→18:52)
[2018-02-23] MEDS: ACETAMINOPHEN 325 MG TABLET (FP) PO PRN ×2 (06:36→16:25)
[2018-02-23 06:41] LABS: BASO % 0.4 % (0-2.0); EOS % 0.1 % (0-4.5); HEMATOCRIT 25.9 % (35.4-49); HEMOGLOBIN 8.5 GM/dL (11.7-16.9); MCH 29.7 pg (25.7-33.7); MCHC 32.7 g/dl (32.0-35.9); MEAN CELL VOLUME 90.9 fl (80-96); MEAN PLT VOLUME 9.5 fl (7.5-11.1); MONO % 2.6 % (3.8-10.2); NEUT % 87.9 % (42.8-82.8); PLATELET COUNT 231 K/MM3 (134-434); RBC 2.85 M/mm3 (4.00-5.60); RDW 17.5 % (11.9-15.9)
[2018-02-23 08:05] LABS: ALBUMIN 1.8 g/dl (3.4-5.0); ALK PHOS 163 U/L (45-117); ANION GAP 6 MMOL/L (8-16); BILIRUBIN,TOTAL 0.3 mg/dL (0.2-1); CHLORIDE 120 mmol/L (98-107); CO2 20 mmol/L (21-32); CREATININE 2.9 mg/dL (0.55-1.3); GLUCOSE,RANDOM 128 mg/dL (74-106); MAGNESIUM 3.2 mg/dL (1.8-2.4); PHOSPHOROUS 5.4 mg/dL (2.5-4.9); SGOT/AST 333 U/L (15-37); SGPT/ALT 572 U/L (13-61); SODIUM 145 mmol/L (136-145); TOT PROT 10.8 g/dl (6.4-8.2)
[2018-02-23 08:14] LABS: BLOOD UREA NITROGEN 109 mg/dL (7-18); CALCIUM 6.3 mg/dL (8.5-10.1)
[2018-02-23] MEDS ORDERED: SODIUM POLYSTYRENE SULFONATE 15 GM/60 ML BOTTLE PO ONE (08:45)
--- NOTE | 2018-02-23 08:49 | EKG ---
Test Reason : Blood Pressure : / mmHG Vent. Rate : 096 BPM Atrial Rate : 115 BPM P-R Int : 000 ms QRS Dur : 138 ms QT Int : 322 ms P-R-T Axes : 000 -80 079 degrees QTc Int : 406 ms ATRIAL FIBRILLATION RIGHT BUNDLE BRANCH BLOCK LEFT ANTERIOR FASCICULAR BLOCK BIFASCICULAR BLOCK ABNORMAL ECG Confirmed by ORVILLE HINES MD ([id number]) on 02/23/2018 8:48:48 AM Referred By: Confirmed By:ORVILLE HINES MD
[2018-02-23] MEDS ORDERED: PT OWN MED DRAWER 7, Y5N ONE (08:52)
[2018-02-23] MEDS ORDERED: CALCIUM GLUCONATE 10% - 1,000 MG/10 ML VIAL IVPB ONE (09:00)
[2018-02-23] MEDS: CEFTAZIDIME PENTAHYDRATE 1 GM in DEXTROSE 5%-WATER - 50 ML IVPB SCH (09:01)
[2018-02-23] MEDS: METOPROLOL TARTRATE 50 MG TABLET (FP) PO SCH ×2 (09:02→21:05)
[2018-02-23] MEDS: ERGOCALCIFEROL 8,000 UNITS/ML DROPSBTL PO SCH (09:02)
[2018-02-23] MEDS: THIAMINE HCL 100 MG TABLET (FP) PO SCH (09:02)
[2018-02-23] MEDS: ALLOPURINOL 100 MG TABLET (FP) PO SCH ×2 (09:02→21:07)
[2018-02-23] MEDS: RIFAXIMIN 550 MG TABLET (UD) PO SCH ×2 (09:02→21:08)
[2018-02-23] MEDS: DEXAMETHASONE SOD PHOSPHATE 10 MG/1 ML VIAL IVPUSH SCH (09:03)
[2018-02-23] MEDS: CHLORHEXIDINE GLUCONATE 0.12% 15ML CUP MM SCH ×2 (09:03→21:05)
[2018-02-23] MEDS: PANTOPRAZOLE SODIUM 40 MG VIAL IVPUSH SCH (09:04)
[2018-02-23 10:19] LABS: ANISOCYTOSIS 3+; MACROCYTOSIS 1+; PLATELET ESTIMATE NORMAL; ROULEAU 3+; TARGET CELLS 1+
--- NOTE | 2018-02-23 10:32 | PN ---
Progress Note, Physician History of Present Illness: Intubated on mechanical ventilation Poorly responsive low grade temps Repeat BC no growth Sputum c/s normal cristopher WBC WNL No LFTs today - Current Medication List Current Medications: Active Medications Acetaminophen (Tylenol -) 650 mg PO Q6H PRN PRN Reason: PAIN LEVEL 1 - 3 Last Admin: 02/23/18 06:36 Dose: 650 mg Acetaminophen (Tylenol Suppository -) 650 mg RC Q6H PRN PRN Reason: FEVER Allopurinol (Zyloprim -) 100 mg PO BID [facility] Last Admin: 02/23/18 09:02 Dose: 100 mg Chlorhexidine Gluconate (Peridex -) 15 ml MM BID [facility] Last Admin: 02/23/18 09:03 Dose: 15 ml Cholecalciferol (Vitamin D3 -) 1,000 unit PO DAILY [facility] Dexamethasone Sodium Phosphate (Decadron Injection -) 10 mg IVPUSH BID [facility] Last Admin: 02/23/18 09:03 Dose: 10 mg Diphenhydramine HCl (Benadryl Injection -) 25 mg IVPB ONCE PRN PRN Reason: DURING PLASMAPHERESIS Ergocalciferol (Drisdol Oral Solution -) 8,000 units PO DAILY [facility] Stop: 02/24/18 08:37 Last Admin: 02/23/18 09:02 Dose: 8,000 units Fentanyl 500 mcg/ Dextrose 100 mls @ 5 mls/hr IVPB TITR [facility]; Protocol Last Admin: 02/22/18 15:03 Dose: 25 mcg/hr, 5 mls/hr Ceftazidime 1 gm/ Dextrose 50 mls @ 200 mls/hr IVPB DAILY [facility]; Protocol Last Admin: 02/23/18 09:01 Dose: 200 mls/hr Propofol (Diprivan -) 1,000,000 mcg in 100 mls @ 2.479 mls/hr IVPB TITR [facility]; Protocol Last Admin: 02/22/18 21:14 Dose: 10 mcg/kg/min, 4.958 mls/hr Lactulose (Cephulac (Oral Use)) 20 gm PO TID [facility] Last Admin: 02/23/18 05:48 Dose: 20 gm Metoprolol Tartrate (Lopressor Injection -) 5 mg IVPUSH Q8H PRN PRN Reason: TACHYCARDIA Metoprolol Tartrate (Lopressor -) 75 mg PO BID [facility] Last Admin: 02/23/18 09:02 Dose: 75 mg Metronidazole (Flagyl -) 500 mg PO TID [facility] Stop: 02/23/18 13:59 Last Admin: 02/23/18 05:48 Dose: 500 mg Pantoprazole Sodium (Protonix Iv) 40 mg IVPUSH DAILY [facility] Last Admin: 02/23/18 09:04 Dose: 40 mg Rifaximin (Xifaxan -) 550 mg PO BID [facility] Last Admin: 02/23/18 09:02 Dose: 550 mg Thiamine HCl (Vitamin B1 -) 100 mg PO DAILY [facility] Last Admin: 02/23/18 09:02 Dose: 100 mg - Objective Vital Signs: Vital Signs Temperature 99.6 F 02/23/18 06:00 Pulse Rate 105 H 02/23/18 10:04 Respiratory Rate 15 02/23/18 10:04 Blood Pressure 125/77 02/23/18 08:00 O2 Sat by Pulse Oximetry (%) 99 02/23/18 10:04 Constitutional: Yes: No Distress Cardiovascular: Yes: Regular Rate and Rhythm, S1, S2 Respiratory: Yes: Mechanically Ventilated Gastrointestinal: Yes: Normal Bowel Sounds, Soft. No: Tenderness Labs: CBC, BMP 02/23/18 05:30 02/23/18 07:00 INR, PTT INR 1.28 (0.83-1.09) H 02/22/18 05:30 Fibrinogen 290.0 mg/dL (238-498) 02/18/18 06:00 Assessment/Plan Respiratory failure RLL pneumonia Acalculus Cholecystitis Toxic metabolic encephalopathy Hypercalcemia Renal failure Myeloma Hyperviscosity syndrome Continue ceftazidime/flagyl, adjusted for renal failure Redose vancomycin Ventilatory support Prognosis poor
[2018-02-23 10:42] LABS: WHITE BLOOD COUNT 12.3 K/mm3 (4.0-10.0)
[2018-02-23 10:43] LABS: CORRECTED WBC 10.42 K/mm3
[2018-02-23] MEDS ORDERED: VANCOMYCIN 1 GRAM (PRE-DOCKED) 1,000 MG/250 ML BAG IVPB ONE (11:15)
[2018-02-23] MEDS ORDERED: VANCOMYCIN 1,000 MG in DEXTROSE 5%-WATER - 250 ML IVPB ONE (11:15)
--- NOTE | 2018-02-23 11:57 | PN ---
Progress Note (short form) - Note Progress Note: Renal follow up for Hypercalcemia/MELITA Pt seen and examined in the ICU on the Vent, FiO2 40% sedated making urine via francois Vital Signs Temperature 100.3 F H 02/23/18 10:00 Pulse Rate 105 H 02/23/18 10:04 Respiratory Rate 15 02/23/18 11:47 Blood Pressure 127/83 02/23/18 10:00 O2 Sat by Pulse Oximetry (%) 99 02/23/18 11:47 Intake & Output 02/20/18 02/21/18 02/22/18 02/23/18 23:59 23:59 23:59 23:59 Intake Total 5621 905 0139 130 Output Total 1000 1325 650 800 Balance 377 -365 640 -670 Weight 83.915 kg 83.518 kg 80.938 kg 80.541 kg NAD on Vent via ET tube tachycardic, no M/R Dec Bs, no rales no LE edema CBC, BMP 02/23/18 05:30 02/23/18 07:00 Current Medications Acetaminophen (Tylenol -) 650 mg PO Q6H PRN PRN Reason: PAIN LEVEL 1 - 3 Last Admin: 02/23/18 06:36 Dose: 650 mg Acetaminophen (Tylenol Suppository -) 650 mg RC Q6H PRN PRN Reason: FEVER Allopurinol (Zyloprim -) 100 mg PO BID [facility] Last Admin: 02/23/18 09:02 Dose: 100 mg Chlorhexidine Gluconate (Peridex -) 15 ml MM BID [facility] Last Admin: 02/23/18 09:03 Dose: 15 ml Cholecalciferol (Vitamin D3 -) 1,000 unit PO DAILY [facility] Dexamethasone Sodium Phosphate (Decadron Injection -) 10 mg IVPUSH BID [facility] Last Admin: 02/23/18 09:03 Dose: 10 mg Diphenhydramine HCl (Benadryl Injection -) 25 mg IVPB ONCE PRN PRN Reason: DURING PLASMAPHERESIS Ergocalciferol (Drisdol Oral Solution -) 8,000 units PO DAILY [facility] Stop: 02/24/18 08:37 Last Admin: 02/23/18 09:02 Dose: 8,000 units Fentanyl 500 mcg/ Dextrose 100 mls @ 5 mls/hr IVPB TITR [facility]; Protocol Last Admin: 02/22/18 15:03 Dose: 25 mcg/hr, 5 mls/hr Ceftazidime 1 gm/ Dextrose 50 mls @ 200 mls/hr IVPB DAILY [facility]; Protocol Last Admin: 02/23/18 09:01 Dose: 200 mls/hr Propofol (Diprivan -) 1,000,000 mcg in 100 mls @ 2.479 mls/hr IVPB TITR [facility]; Protocol Last Admin: 02/22/18 21:14 Dose: 10 mcg/kg/min, 4.958 mls/hr Vancomycin HCl (Vancomycin (Pre-Docked)) 1,000 mg in 250 mls @ 166.667 mls/hr IVPB ONCE ONE; Protocol Stop: 02/23/18 12:44 Lactulose (Cephulac (Oral Use)) 20 gm PO TID [facility] Last Admin: 02/23/18 05:48 Dose: 20 gm Metoprolol Tartrate (Lopressor Injection -) 5 mg IVPUSH Q8H PRN PRN Reason: TACHYCARDIA Metoprolol Tartrate (Lopressor -) 75 mg PO BID [facility] Last Admin: 02/23/18 09:02 Dose: 75 mg Metronidazole (Flagyl -) 500 mg PO TID [facility] Stop: 02/23/18 13:59 Last Admin: 02/23/18 05:48 Dose: 500 mg Pantoprazole Sodium (Protonix Iv) 40 mg IVPUSH DAILY [facility] Last Admin: 02/23/18 09:04 Dose: 40 mg Rifaximin (Xifaxan -) 550 mg PO BID [facility] Last Admin: 02/23/18 09:02 Dose: 550 mg Thiamine HCl (Vitamin B1 -) 100 mg PO DAILY [facility] Last Admin: 02/23/18 09:02 Dose: 100 mg 77 year old gentleman with hx of CKD, Afib on A/C, CAD, CKD, Hypertension, Hyperlipidemia, PVD who presented with AMS/Confusion and found to have MELITA. #MELITA ATN vs. 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 tubular injury, US showed no stones or obstruction, UA w/o protein but UPCR ~0.5 indicating non- albumin proteinuria) #AMS #Newly diagnosed multiple myloma #Anemia #Hypercalcemia of Malignancy (PTH is low) #Hyperdense lesion on US of the kidney #Normal anion gap metabolic acidosis #Hyperkalemia (r/o tumor lysis) Renal function stable at this time, BUN high due to steroids no acute need for [employer] at this time K trending up, underlying tumor lysis needs to be ruled out as pt with elevated K, Phos and low Ca s/p kayexalate this am repeat K this afternoon Check uric acid levels to eval for TLS, also check CK levels to r/o propofol infusion syndrome pt is on decadron IV for myloma continue vent support prognosis is poor family meeting to be held today pt is not a candidate for [employer] given significant co-morbid conditions and poor overall prognosis Mack Miller DO
--- NOTE | 2018-02-23 12:16 | PN ---
Progress Note, Physician - Current Medication List Current Medications: Active Medications Acetaminophen (Tylenol -) 650 mg PO Q6H PRN PRN Reason: PAIN LEVEL 1 - 3 Last Admin: 02/23/18 06:36 Dose: 650 mg Acetaminophen (Tylenol Suppository -) 650 mg RC Q6H PRN PRN Reason: FEVER Allopurinol (Zyloprim -) 100 mg PO BID [facility] Last Admin: 02/23/18 09:02 Dose: 100 mg Chlorhexidine Gluconate (Peridex -) 15 ml MM BID [facility] Last Admin: 02/23/18 09:03 Dose: 15 ml Cholecalciferol (Vitamin D3 -) 1,000 unit PO DAILY [facility] Dexamethasone Sodium Phosphate (Decadron Injection -) 10 mg IVPUSH BID [facility] Last Admin: 02/23/18 09:03 Dose: 10 mg Diphenhydramine HCl (Benadryl Injection -) 25 mg IVPB ONCE PRN PRN Reason: DURING PLASMAPHERESIS Ergocalciferol (Drisdol Oral Solution -) 8,000 units PO DAILY [facility] Stop: 02/24/18 08:37 Last Admin: 02/23/18 09:02 Dose: 8,000 units Fentanyl 500 mcg/ Dextrose 100 mls @ 5 mls/hr IVPB TITR [facility]; Protocol Last Admin: 02/22/18 15:03 Dose: 25 mcg/hr, 5 mls/hr Ceftazidime 1 gm/ Dextrose 50 mls @ 200 mls/hr IVPB DAILY [facility]; Protocol Last Admin: 02/23/18 09:01 Dose: 200 mls/hr Propofol (Diprivan -) 1,000,000 mcg in 100 mls @ 2.479 mls/hr IVPB TITR [facility]; Protocol Last Admin: 02/22/18 21:14 Dose: 10 mcg/kg/min, 4.958 mls/hr Vancomycin HCl (Vancomycin (Pre-Docked)) 1,000 mg in 250 mls @ 166.667 mls/hr IVPB ONCE ONE; Protocol Stop: 02/23/18 12:44 Lactulose (Cephulac (Oral Use)) 20 gm PO TID [facility] Last Admin: 02/23/18 05:48 Dose: 20 gm Metoprolol Tartrate (Lopressor Injection -) 5 mg IVPUSH Q8H PRN PRN Reason: TACHYCARDIA Metoprolol Tartrate (Lopressor -) 75 mg PO BID [facility] Last Admin: 02/23/18 09:02 Dose: 75 mg Metronidazole (Flagyl -) 500 mg PO TID [facility] Stop: 02/23/18 13:59 Last Admin: 02/23/18 05:48 Dose: 500 mg Pantoprazole Sodium (Protonix Iv) 40 mg IVPUSH DAILY [facility] Last Admin: 02/23/18 09:04 Dose: 40 mg Rifaximin (Xifaxan -) 550 mg PO BID [facility] Last Admin: 02/23/18 09:02 Dose: 550 mg Thiamine HCl (Vitamin B1 -) 100 mg PO DAILY [facility] Last Admin: 02/23/18 09:02 Dose: 100 mg - Objective Vital Signs: Vital Signs Temperature 100.3 F H 02/23/18 10:00 Pulse Rate 105 H 02/23/18 10:04 Respiratory Rate 16 02/23/18 11:59 Blood Pressure 127/83 02/23/18 10:00 O2 Sat by Pulse Oximetry (%) 99 02/23/18 11:47 Cardiovascular: Yes: S1, S2 Respiratory: Yes: Mechanically Ventilated, Rhonchi Gastrointestinal: Yes: Normal Bowel Sounds, Soft Labs: CBC, BMP 02/23/18 05:30 02/23/18 07:00 INR, PTT INR 1.28 (0.83-1.09) H 02/22/18 05:30 Fibrinogen 290.0 mg/dL (238-498) 02/18/18 06:00 Problem List - Problems (1) Toxic metabolic encephalopathy Code(s): G92 - TOXIC ENCEPHALOPATHY (2) Cellulitis Code(s): L03.90 - CELLULITIS, UNSPECIFIED Qualifiers: Site of cellulitis: extremity Site of cellulitis of extremity: lower extremity Laterality: right Qualified Code(s): L03.115 - Cellulitis of right lower limb (3) Sepsis Code(s): A41.9 - SEPSIS, UNSPECIFIED ORGANISM (4) Artery occlusion Code(s): I70.90 - UNSPECIFIED ATHEROSCLEROSIS (5) Hypercalcemia Code(s): E83.52 - HYPERCALCEMIA (6) Paroxysmal atrial fibrillation Code(s): I48.0 - PAROXYSMAL ATRIAL FIBRILLATION (7) MELITA (acute kidney injury) Code(s): N17.9 - ACUTE KIDNEY FAILURE, UNSPECIFIED Assessment/Plan - Problems (1) Elevated LFTs Assessment/Plan: ultrasound of liver noted suggestive of acalculous cholecystitis, will get GI consult--D/W DR SOUZA PROBABLY ISCHEMIC DOES NOT RECOMMEND DRAINAGE AT THIS TIME Code(s): R94.5 - ABNORMAL RESULTS OF LIVER FUNCTION STUDIES (2) MELITA (acute kidney injury) Assessment/Plan: bun/cr is better from 2.8 to 2.6 serum bicarb is now 22 corrected calcium Code(s): N17.9 - ACUTE KIDNEY FAILURE, UNSPECIFIED (3) Atrial fibrillation with RVR Assessment/Plan: heparin drip quality assurance monitor chassis rate control with metoprolol Code(s): I48.91 - UNSPECIFIED ATRIAL FIBRILLATION (4) Respiratory failure Assessment/Plan: intubated propofol/fentanyl Code(s): J96.90 - RESPIRATORY FAILURE, UNSP, UNSP W HYPOXIA OR HYPERCAPNIA (5) Toxic metabolic encephalopathy Assessment/Plan: Microbiology 02/21/18 11:20 Urine - Urine Brenner Urine Culture - Final NO GROWTH OBTAINED 02/13/18 14:30 Urine - Urine Brenner Legionella Antigen - Final 02/13/18 14:30 Urine - Urine Brenner Streptococcus pneumoniae Antigen (M - Final 02/13/18 14:30 Sputum - Endotrachea Suction/Ventilator Gram Stain - Final 02/13/18 14:30 Sputum - Endotrachea Suction/Ventilator Sputum Culture - Final Stenotrophomon.(X.)Maltophilia 02/21/18 09:58 Blood - Peripheral Venous Blood Culture - Preliminary NO GROWTH OBTAINED AFTER 24 HOURS, INCUBATION TO CONTINUE FOR 4 DAYS. 02/21/18 09:50 Blood - Peripheral Venous Blood Culture - Preliminary NO GROWTH OBTAINED AFTER 24 HOURS, INCUBATION TO CONTINUE FOR 4 DAYS. 02/17/18 15:00 Blood - Peripheral Venous Blood Culture - Preliminary NO GROWTH OBTAINED AFTER 96 HOURS, INCUBATION TO CONTINUE FOR 1 DAYS. 02/17/18 14:00 Blood - Central Line Blood Culture - Preliminary NO GROWTH OBTAINED AFTER 96 HOURS, INCUBATION TO CONTINUE FOR 1 DAYS. afebrile normal WBC repeat cultures as above on ceftazidime - Code(s): G92 - TOXIC ENCEPHALOPATHY (6) Altered mental status Assessment/Plan: maybe secondary to toxic metabolic encephalopathy neurology consult appreciated on lactulose TID still persistently elevated Nh3 level on steroid as well dexamethasone - no improvement in mental status s/p plasmapheresis dvt ppx lovenox Code(s): R41.82 - ALTERED MENTAL STATUS, UNSPECIFIED
[2018-02-23] MEDS: PROPOFOL 1,000,000 MCG/100 ML VIAL IVPB SCH (12:25)
[2018-02-23] MEDS ORDERED: fentaNYL CITRATE 250 MCG/5 ML VIAL ONE (12:28)
[2018-02-23] MEDS: FENTANYL INJECTION 500 MCG in DEXTROSE 5%-WATER - 90 ML IVPB SCH (12:29)
--- NOTE | 2018-02-23 13:52 | PN ---
Teaching Attending Note Name of Resident: Bola Griffith ATTENDING PHYSICIAN STATEMENT I saw and evaluated the patient. I reviewed the resident's note and discussed the case with the resident. I agree with the resident's findings and plan as documented. SUBJECTIVE: Patient seen and examined in the ICU. Remains intubated, sedated on propofol. Intermittent fever. No gross change in overall mental status. OBJECTIVE: Intake & Output 02/20/18 02/21/18 02/22/18 02/23/18 23:59 23:59 23:59 23:59 Intake Total 6440 785 8199 130 Output Total 1000 1325 650 800 Balance 377 -172 640 -670 Weight 185 lb 184 lb 2 oz 178 lb 7 oz 177 lb 9 oz Last Vital Signs Temp Pulse Resp BP Pulse Ox 100.3 F H 117 H 24 H 113/87 99 02/23/18 10:00 02/23/18 12:00 02/23/18 12:00 02/23/18 12:00 02/23/18 11:47 Active Medications Acetaminophen (Tylenol -) 650 mg PO Q6H PRN PRN Reason: PAIN LEVEL 1 - 3 Last Admin: 02/23/18 06:36 Dose: 650 mg Acetaminophen (Tylenol Suppository -) 650 mg RC Q6H PRN PRN Reason: FEVER Allopurinol (Zyloprim -) 100 mg PO BID [facility] Last Admin: 02/23/18 09:02 Dose: 100 mg Chlorhexidine Gluconate (Peridex -) 15 ml MM BID [facility] Last Admin: 02/23/18 09:03 Dose: 15 ml Cholecalciferol (Vitamin D3 -) 1,000 unit PO DAILY [facility] Dexamethasone Sodium Phosphate (Decadron Injection -) 10 mg IVPUSH BID [facility] Last Admin: 02/23/18 09:03 Dose: 10 mg Diphenhydramine HCl (Benadryl Injection -) 25 mg IVPB ONCE PRN PRN Reason: DURING PLASMAPHERESIS Ergocalciferol (Drisdol Oral Solution -) 8,000 units PO DAILY [facility] Stop: 02/24/18 08:37 Last Admin: 02/23/18 09:02 Dose: 8,000 units Fentanyl 500 mcg/ Dextrose 100 mls @ 5 mls/hr IVPB TITR [facility]; Protocol Last Admin: 02/23/18 12:29 Dose: 25 mcg/hr, 5 mls/hr Ceftazidime 1 gm/ Dextrose 50 mls @ 200 mls/hr IVPB DAILY [facility]; Protocol Last Admin: 02/23/18 09:01 Dose: 200 mls/hr Propofol (Diprivan -) 1,000,000 mcg in 100 mls @ 2.479 mls/hr IVPB TITR [facility]; Protocol Last Admin: 02/23/18 12:25 Dose: 10 mcg/kg/min, 4.958 mls/hr Lactulose (Cephulac (Oral Use)) 20 gm PO TID [facility] Last Admin: 02/23/18 05:48 Dose: 20 gm Metoprolol Tartrate (Lopressor Injection -) 5 mg IVPUSH Q8H PRN PRN Reason: TACHYCARDIA Metoprolol Tartrate (Lopressor -) 75 mg PO BID [facility] Last Admin: 02/23/18 09:02 Dose: 75 mg Metronidazole (Flagyl -) 500 mg PO TID [facility] Stop: 02/23/18 13:59 Last Admin: 02/23/18 05:48 Dose: 500 mg Pantoprazole Sodium (Protonix Iv) 40 mg IVPUSH DAILY [facility] Last Admin: 02/23/18 09:04 Dose: 40 mg Rifaximin (Xifaxan -) 550 mg PO BID [facility] Last Admin: 02/23/18 09:02 Dose: 550 mg Thiamine HCl (Vitamin B1 -) 100 mg PO DAILY [facility] Last Admin: 02/23/18 09:02 Dose: 100 mg Gen: intubated, sedated Heart: irregular Lung: scattered rhonchi Abd: soft, nontender Ext: no edema Laboratory Results - last 24 hr 02/22/18 02/23/18 02/23/18 05:30 05:30 05:30 WBC 12.3 H Corrected WBC (auto) 10.42 RBC 2.85 L Hgb 8.5 L Hct 25.9 L MCV 90.9 MCH 29.7 MCHC 32.7 RDW 17.5 H Plt Count 231 MPV 9.5 Absolute Neuts (auto) 8.9 H Neutrophils % 87.9 H Neutrophils % (Manual) 75.0 78.1 Band Neutrophils % 5.2 6.3 Lymphocytes % 9.0 Lymphocytes % (Manual) 14.6 D 6.2 L D Monocytes % 2.6 L Monocytes % (Manual) 3 L D 4 Eosinophils % 0.1 Eosinophils % (Manual) 0.0 0.0 Basophils % 0.4 Basophils % (Manual) 0.0 1.0 D Myelocytes % (Man) 2 D 0 D Promyelocytes % (Man) 0 0 Blast Cells % (Manual) 0 0 Nucleated RBC % 18 H* Metamyelocytes 0 D 4 H D Hypochromia 0 0 Toxic Granulation 0 Dohle Bodies 0 Platelet Estimate Normal Normal Platelet Comment Present Polychromasia 0 3+ Poikilocytosis 0 1+ Basophilic Stippling 0 2+ Anisocytosis 0 3+ Microcytosis 0 3+ Macrocytosis 0 1+ Spherocytes 0 Sickle Cells 0 Target Cells 0 1+ Tear Drop Cells 0 Ovalocytes 0 Stomatocytes 0 Helmet Cells 0 Foote-[place] Bodies 0 [place] Rings 0 [place] Cells 0 Acanthocytes (Spur) 0 Rouleaux 0 3+ Fragmented RBCs 0 Schistocytes 0 Sodium Cancelled Potassium Cancelled Chloride Cancelled Carbon Dioxide Cancelled Anion Gap Cancelled BUN Cancelled Creatinine Cancelled Creat Clearance w eGFR Cancelled Random Glucose Cancelled Lactic Acid Calcium Cancelled Phosphorus Cancelled Magnesium Cancelled Total Bilirubin Cancelled AST Cancelled ALT Cancelled Alkaline Phosphatase Cancelled Troponin I Cancelled Total Protein Cancelled Albumin Cancelled 02/23/18 02/23/18 05:30 07:00 WBC Corrected WBC (auto) RBC Hgb Hct MCV MCH MCHC RDW Plt Count MPV Absolute Neuts (auto) Neutrophils % Neutrophils % (Manual) Band Neutrophils % Lymphocytes % Lymphocytes % (Manual) Monocytes % Monocytes % (Manual) Eosinophils % Eosinophils % (Manual) Basophils % Basophils % (Manual) Myelocytes % (Man) Promyelocytes % (Man) Blast Cells % (Manual) Nucleated RBC % Metamyelocytes Hypochromia Toxic Granulation Dohle Bodies Platelet Estimate Platelet Comment Polychromasia Poikilocytosis Basophilic Stippling Anisocytosis Microcytosis Macrocytosis Spherocytes Sickle Cells Target Cells Tear Drop Cells Ovalocytes Stomatocytes Helmet Cells Foote-Milo Bodies [place] Rings [place] Cells Acanthocytes (Spur) Rouleaux Fragmented RBCs Schistocytes Sodium 145 Potassium 6.0 H Chloride 120 H Carbon Dioxide 20 L Anion Gap 6 L BUN 109 H* Creatinine 2.9 H Creat Clearance w eGFR 21.10 Random Glucose 128 H Lactic Acid 1.2 Calcium 6.3 L* Phosphorus 5.4 H Magnesium 3.2 H Total Bilirubin 0.3 AST 333 H ALT 572 H Alkaline Phosphatase 163 H Troponin I 0.69 H* Total Protein 10.8 H Albumin 1.8 L ASSESSMENT AND PLAN: Acute Hypoxic Respiratory Failure Altered Mental Status Metabolic Encephalopathy Pneumonia Acalculous Cholecystitis Multiple Myeloma Acute on Chronic Renal Failure Metabolic Acidosis LV Diastolic Dysfunction Atrial Fibrillation CAD +Troponins likely Demand Ischemia PAD Hyperlipidemia HTN - continue antibiotics per ID - GI eval for cholecystitis - trend LFTs - monitor urine output, creatinine - rate control - continue anticoagulation - minimize sedation to assess mental status - spontaneous breathing trials as tolerated - DVT/GI prophylaxis - continue discussions regarding goals of care: Compassionate extubation versus Tracheostomy - palliative care involved - continue ICU monitoring - grave overall prognosis Dr Walker Critical care time spent in reviewing chart, evaluating patient and formulating plan 35 min
--- NOTE | 2018-02-23 14:44 | PN ---
Progress Note, Physician History of Present Illness: Poorly responsive on vent, rapid persistent afib on lopressor and heparin gtt. - Current Medication List Current Medications: Active Medications Acetaminophen (Tylenol -) 650 mg PO Q6H PRN PRN Reason: PAIN LEVEL 1 - 3 Last Admin: 02/23/18 06:36 Dose: 650 mg Acetaminophen (Tylenol Suppository -) 650 mg RC Q6H PRN PRN Reason: FEVER Allopurinol (Zyloprim -) 100 mg PO BID [facility] Last Admin: 02/23/18 09:02 Dose: 100 mg Chlorhexidine Gluconate (Peridex -) 15 ml MM BID [facility] Last Admin: 02/23/18 09:03 Dose: 15 ml Cholecalciferol (Vitamin D3 -) 1,000 unit PO DAILY [facility] Dexamethasone Sodium Phosphate (Decadron Injection -) 10 mg IVPUSH BID [facility] Last Admin: 02/23/18 09:03 Dose: 10 mg Diphenhydramine HCl (Benadryl Injection -) 25 mg IVPB ONCE PRN PRN Reason: DURING PLASMAPHERESIS Ergocalciferol (Drisdol Oral Solution -) 8,000 units PO DAILY [facility] Stop: 02/24/18 08:37 Last Admin: 02/23/18 09:02 Dose: 8,000 units Fentanyl 500 mcg/ Dextrose 100 mls @ 5 mls/hr IVPB TITR [facility]; Protocol Last Admin: 02/23/18 12:29 Dose: 25 mcg/hr, 5 mls/hr Ceftazidime 1 gm/ Dextrose 50 mls @ 200 mls/hr IVPB DAILY [facility]; Protocol Last Admin: 02/23/18 09:01 Dose: 200 mls/hr Propofol (Diprivan -) 1,000,000 mcg in 100 mls @ 2.479 mls/hr IVPB TITR [facility]; Protocol Last Admin: 02/23/18 12:25 Dose: 10 mcg/kg/min, 4.958 mls/hr Lactulose (Cephulac (Oral Use)) 20 gm PO TID [facility] Last Admin: 02/23/18 14:39 Dose: 20 gm Metoprolol Tartrate (Lopressor Injection -) 5 mg IVPUSH Q8H PRN PRN Reason: TACHYCARDIA Metoprolol Tartrate (Lopressor -) 75 mg PO BID [facility] Last Admin: 02/23/18 09:02 Dose: 75 mg Pantoprazole Sodium (Protonix Iv) 40 mg IVPUSH DAILY [facility] Last Admin: 02/23/18 09:04 Dose: 40 mg Rifaximin (Xifaxan -) 550 mg PO BID [facility] Last Admin: 02/23/18 09:02 Dose: 550 mg Thiamine HCl (Vitamin B1 -) 100 mg PO DAILY [facility] Last Admin: 02/23/18 09:02 Dose: 100 mg - Objective Vital Signs: Vital Signs Temperature 100.3 F H 02/23/18 10:00 Pulse Rate 117 H 02/23/18 12:00 Respiratory Rate 16 02/23/18 14:38 Blood Pressure 113/87 02/23/18 12:00 O2 Sat by Pulse Oximetry (%) 99 02/23/18 11:47 Constitutional: Yes: No Distress, Calm, Thin Neck: Yes: Supple Cardiovascular: Yes: Tachycardia, Pulse Irregular Respiratory: Yes: Intubated, Mechanically Ventilated Gastrointestinal: Yes: Normal Bowel Sounds, Soft Edema: No Labs: CBC, BMP 02/23/18 05:30 02/23/18 07:00 INR, PTT INR 1.28 (0.83-1.09) H 02/22/18 05:30 Fibrinogen 290.0 mg/dL (238-498) 02/18/18 06:00 - ....Imaging Chest X-ray: Report Reviewed (Improved left hemithorax) EKG: Report Reviewed (Afib @ 96 RBBB), Image Reviewed Problem List - Problems (1) Atrial fibrillation with RVR Code(s): I48.91 - UNSPECIFIED ATRIAL FIBRILLATION (2) [id number] kidney injury Code(s): N17.9 - ACUTE KIDNEY FAILURE, UNSPECIFIED; N18.9 - CHRONIC KIDNEY DISEASE, UNSPECIFIED Qualifiers: Acute renal failure type: unspecified Chronic kidney disease stage: unspecified stage Qualified Code(s): N17.9 - Acute kidney failure, unspecified ; N18.9 - Chronic kidney disease, unspecified (3) Demand ischemia Code(s): I24.8 - OTHER FORMS OF ACUTE ISCHEMIC HEART DISEASE (4) Hypercalcemia Code(s): E83.52 - HYPERCALCEMIA (5) Nonadherence to medication Code(s): Z91.14 - PATIENT'S OTHER NONCOMPLIANCE WITH MEDICATION REGIMEN (6) Paraproteinemia Code(s): D89.2 - HYPERGAMMAGLOBULINEMIA, UNSPECIFIED (7) Anticoagulant long-term use Code(s): Z79.01 - [facility] (CURRENT) USE OF ANTICOAGULANTS (8) Chronic thromboembolic disease Code(s): I74.9 - EMBOLISM AND THROMBOSIS OF UNSPECIFIED ARTERY (9) Coronary artery disease Code(s): I25.10 - ATHSCL HEART DISEASE OF [place] CORONARY ARTERY W/O ANG PCTRS Qualifiers: Coronary Disease-Associated Artery/Lesion type: [place] artery [place] vs. transplanted heart: [place] heart Associated angina: without angina Qualified Code(s): I25.10 - Atherosclerotic heart disease of [place] coronary artery without angina pectoris (10) Diastolic dysfunction without heart failure Code(s): I51.9 - HEART DISEASE, UNSPECIFIED (11) HTN (hypertension) Code(s): I10 - ESSENTIAL (PRIMARY) HYPERTENSION Qualifiers: Hypertension type: essential hypertension Qualified Code(s): I10 - Essential (primary) hypertension (12) Hypertrophic cardiomyopathy Code(s): I42.2 - OTHER HYPERTROPHIC CARDIOMYOPATHY (13) Hyperlipidemia Code(s): E78.5 - HYPERLIPIDEMIA, UNSPECIFIED Qualifiers: Hyperlipidemia type: pure hypercholesterolemia Qualified Code(s): E78.00 - Pure hypercholesterolemia, unspecified; E78.0 - Pure hypercholesterolemia (14) Multiple myeloma Code(s): C90.00 - MULTIPLE MYELOMA NOT HAVING ACHIEVED REMISSION Qualifiers: Multiple myeloma remission status: not in remission Qualified Code(s): C90.00 - Multiple myeloma not having achieved remission (15) Acalculous cholecystitis Code(s): K81.9 - CHOLECYSTITIS, UNSPECIFIED Assessment/Plan R[facility]LHc at [facility] 04/20/2016 showing nonobstructive CAD, severe LV apical hypertrophic cardiomyopathy, mildly elevated right sided pressures, Mynx deployed right [employer] access site. 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 Echocardiogram: 10/18/2017 Mod cLVH, severe PURVI, mod TR RVSP 50-60 mmHg, mod- severe MR Echocardiogram: 01/23/2018 Normal LV size with hyperdynamic LVEF 75%, mild BSH, normal RV size and fxn, severe LAE, mod-severe MR, mod TR 1. Acute hypoxic respiratory failure, suspected aspiration pneumonia 2. Toxic metabolic encephelopathy, possible hyperviscosity syndrome, sepsis 3. Acute on CKD (suspect myeloma kidney) 4. Hypercalcemia, paraproteinemia, anemia-> confirmed multiple myeloma, hyperviscosity syndrome 5. History of bilateral SFA occlusion post thrombectomy, referable to embolic disease related to persistent atrial fibrillation with [id number] score of 6, history of poor compliance with anticoagulation and medical F/U 6. Non obstructive CAD on R&LHc coronary angiography with demand ischemia 7. LV diastolic dysfunction related to apical hypertrophic cardiomyopathy, subendocardial ischemia, compensated/euvolemic 8. Persistent atrial fibrillation with RVR [id number] score of 6 on heparin gtt 9. Labile HTN 10. Acalculous Cholecystitis 11. Ischemic hepatitis PLAN: 1. Lovenox for now while off Xarelto 15 qd (renal dosing) 2. Uptitrated Lopressor 75 bid as hemodynamics tolerate with IV Lopressor as needed for rate-control 3. Empiric renal-dosed abx course pending C&S 4. Enteral feeds, lactulose for hyperammonemia, monitor ammonia levels 5. Ventilator management, wean off sedation, IV steroids with GI protection 6. Consider IR cholecystotomy decompression per GI recs 7. Trend LFTs
--- NOTE | 2018-02-23 14:54 | PN ---
Physical Exam: SUBJECTIVE: Patient seen and examined in the ICU. Remains intubated and sedated. Intermittent fever. No gross change in overall mental status. GOC/ family meeting today w/ daughter. OBJECTIVE: Vital Signs Period Temp Pulse Resp BP Sys/Ariza Pulse Ox Last 24 Hr 98.6 F-100.3 F 92-127 14-24 111-127/66-87 98-99 GENERAL: The patient is intubated and sedated. HEAD: NCAT EYES: sclera anicteric. ENT: Ears normal, nares patent, dry mucous membranes NECK: Trachea midline. LUNGS: bilateral diffuse rhonchi HEART: Tachycardic rate and irregular rhythm. ABDOMEN: Soft, nondistended. EXTREMITIES: 2+ pulses, warm, well-perfused, no edema, scattered ulcers. NEUROLOGICAL: Cannot assess secondary to clinical condition. SKIN: Warm, dry, normal turgor, scattered ulcers on the legs Laboratory Results - last 24 hr 02/22/18 02/23/18 02/23/18 05:30 05:30 05:30 WBC 12.3 H Corrected WBC (auto) 10.42 RBC 2.85 L Hgb 8.5 L Hct 25.9 L MCV 90.9 MCH 29.7 MCHC 32.7 RDW 17.5 H Plt Count 231 MPV 9.5 Absolute Neuts (auto) 8.9 H Neutrophils % 87.9 H Neutrophils % (Manual) 75.0 78.1 Band Neutrophils % 5.2 6.3 Lymphocytes % 9.0 Lymphocytes % (Manual) 14.6 D 6.2 L D Monocytes % 2.6 L Monocytes % (Manual) 3 L D 4 Eosinophils % 0.1 Eosinophils % (Manual) 0.0 0.0 Basophils % 0.4 Basophils % (Manual) 0.0 1.0 D Myelocytes % (Man) 2 D 0 D Promyelocytes % (Man) 0 0 Blast Cells % (Manual) 0 0 Nucleated RBC % 18 H* Metamyelocytes 0 D 4 H D Hypochromia 0 0 Toxic Granulation 0 Dohle Bodies 0 Platelet Estimate Normal Normal Platelet Comment Present Polychromasia 0 3+ Poikilocytosis 0 1+ Basophilic Stippling 0 2+ Anisocytosis 0 3+ Microcytosis 0 3+ Macrocytosis 0 1+ Spherocytes 0 Sickle Cells 0 Target Cells 0 1+ Tear Drop Cells 0 Ovalocytes 0 Stomatocytes 0 Helmet Cells 0 [place] Bodies 0 [place] Rings 0 [place] Cells 0 Acanthocytes (Spur) 0 Rouleaux 0 3+ Fragmented RBCs 0 Schistocytes 0 Sodium Cancelled Potassium Cancelled Chloride Cancelled Carbon Dioxide Cancelled Anion Gap Cancelled BUN Cancelled Creatinine Cancelled Creat Clearance w eGFR Cancelled Random Glucose Cancelled Lactic Acid Calcium Cancelled Phosphorus Cancelled Magnesium Cancelled Total Bilirubin Cancelled AST Cancelled ALT Cancelled Alkaline Phosphatase Cancelled Troponin I Cancelled Total Protein Cancelled Albumin Cancelled 02/23/18 02/23/18 05:30 07:00 WBC Corrected WBC (auto) RBC Hgb Hct MCV MCH MCHC RDW Plt Count MPV Absolute Neuts (auto) Neutrophils % Neutrophils % (Manual) Band Neutrophils % Lymphocytes % Lymphocytes % (Manual) Monocytes % Monocytes % (Manual) Eosinophils % Eosinophils % (Manual) Basophils % Basophils % (Manual) Myelocytes % (Man) Promyelocytes % (Man) Blast Cells % (Manual) Nucleated RBC % Metamyelocytes Hypochromia Toxic Granulation Dohle Bodies Platelet Estimate Platelet Comment Polychromasia Poikilocytosis Basophilic Stippling Anisocytosis Microcytosis Macrocytosis Spherocytes Sickle Cells Target Cells Tear Drop Cells Ovalocytes Stomatocytes Helmet Cells Foote-[place] Bodies [place] Rings [place] Cells Acanthocytes (Spur) Rouleaux Fragmented RBCs Schistocytes Sodium 145 Potassium 6.0 H Chloride 120 H Carbon Dioxide 20 L Anion Gap 6 L BUN 109 H* Creatinine 2.9 H Creat Clearance w eGFR 21.10 Random Glucose 128 H Lactic Acid 1.2 Calcium 6.3 L* Phosphorus 5.4 H Magnesium 3.2 H Total Bilirubin 0.3 AST 333 H ALT 572 H Alkaline Phosphatase 163 H Troponin I 0.69 H* Total Protein 10.8 H Albumin 1.8 L Active Medications Generic Name Dose Route Start Last Admin Trade Name Freq PRN Reason Stop Dose Admin Acetaminophen 650 mg 02/17/18 14:09 02/23/18 06:36 Tylenol - PO 650 mg Q6H PRN Administration PAIN LEVEL 1 - 3 Acetaminophen 650 mg 02/22/18 15:54 Tylenol Suppository - RC Q6H PRN FEVER Allopurinol 100 mg 02/16/18 10:00 02/23/18 09:02 Zyloprim - PO 100 mg BID [facility] Administration Chlorhexidine Gluconate 15 ml 02/17/18 23:45 02/23/18 09:03 Peridex - MM 15 ml BID [facility] Administration Cholecalciferol 1,000 unit 02/25/18 10:00 Vitamin D3 - PO DAILY [facility] Dexamethasone Sodium Phosphate 10 mg 02/17/18 12:15 02/23/18 09:03 Decadron Injection - IVPUSH 10 mg BID [facility] Administration Diphenhydramine HCl 25 mg 02/16/18 12:00 Benadryl Injection - IVPB ONCE PRN DURING PLASMAPHERESIS Ergocalciferol 8,000 units 02/18/18 10:00 02/23/18 09:02 Drisdol Oral Solution - PO 02/24/18 08:37 8,000 units DAILY [facility] Administration Fentanyl 500 mcg/ Dextrose 100 mls @ 5 mls/hr 02/14/18 11:45 02/23/18 12:29 IVPB 25 mcg/hr TITR [facility] 5 mls/hr Administration Protocol 25 MCG/HR Ceftazidime 1 gm/ Dextrose 50 mls @ 200 mls/hr 02/18/18 12:00 02/23/18 09:01 IVPB 200 mls/hr DAILY [facility] Administration Protocol Propofol 1,000,000 mcg in 100 mls @ 2.479 mls/hr 02/18/18 13:45 02/23/18 12: 25 Diprivan - IVPB 10 mcg/kg/min TITR [facility] 4.958 mls/hr Administration Protocol 5 MCG/KG/MIN Lactulose 20 gm 02/16/18 09:38 02/23/18 05:48 Cephulac (Oral Use) PO 20 gm TID [facility] Administration Metoprolol Tartrate 5 mg 02/16/18 13:04 Lopressor Injection - IVPUSH Q8H PRN TACHYCARDIA Metoprolol Tartrate 75 mg 02/23/18 08:30 02/23/18 09:02 Lopressor - PO 75 mg BID [facility] Administration Pantoprazole Sodium 40 mg 02/14/18 12:00 02/23/18 09:04 Protonix Iv IVPUSH 40 mg DAILY [facility] Administration Rifaximin 550 mg 02/22/18 22:00 02/23/18 09:02 Xifaxan - PO 550 mg BID [facility] Administration Thiamine HCl 100 mg 02/06/18 22:12 02/23/18 09:02 Vitamin B1 - PO 100 mg DAILY [facility] Administration ASSESSMENT/PLAN: 77 yo m PMH of A-Fib, Acute on chronic kidney injury, CAD w stents, hypercalcemia, medication non-adherence, paraproteinemia, thromboembolic disease , diastolic heart dysfunction without failure, HTN, HLD, hypertrophic cardiomyopathy is here after a rapid response. He was on the floors when it was noticed that he has respiratory insufficiency and was desaturating, requiring ICU monitoring. GI: metabolic encephalopathy -ammonia was elevated yesterday to 97.05 despite being on lactulose. -LFTs are also elevated but downtrended today. transamintitis most likely secondary to ischemic hepatits which is multifactorial including sepsis, episodes of hypotension and hyperviscosity syndrome. -c/w rifaximin for elevated ammonia level acalculous cholecystitis? US shows thickened gallbladder wall, pericholecystic fluid, suspicious for acalculous cholecystitis. There was also mild dilatation of the CBD but that might be normal for age. -Spoke w/ IR, who feel image does not represent acalculous cholecystitisand does not require any IR drainage -will dc flagyl, ID on board ID: continues to spike fevers - Rhonchi heard on Lung auscultation - CXR shows pulmonary infiltrate in the left upper lobe - c/w ceftazidime. - ID on board - c/w rifaximin for elevated ammonia level -Spoke w/ IR, who feel image does not represent acalculous cholecystitisand does not require any IR drainage -will dc flagyl, ID on board Cardio: - Sporadically goes in and out of V-Tach - increase Lopressor to 75 mg BID PO - Afib w RVR: Patient is receiving IV metoprolol 5 mg PRN - diastolic dysfunction + hypertrophic cardiomyopathy - CAD with multiple stents - Cardio consulted and on board. Pulm: - Intubated - Patient has b/l pleural effusions. - s/p 60 of lasix yesterday. - No pneumothorax - b/l diffuse rhonchi - infiltrate on CXR: Abx- ceftazidime Renal: - Acute on Chronic kidney injury - BUN: 109 Cr:2.9. Pre-renal etiology. - Renal consulted and on board. Neuro: - Patient is not alert or oriented. - Head CT showed no acute pathology - Neuro consulted and on board. (Dr. Kuo + Dr. mejia) - Ammonia elevated - Patient receiving lactulose - c/w rifaximin for elevated ammonia. Heme/Onc: - Hb today was 8.5 - Will transfuse to keep hb > 8 - Patient not receiving plasmapharesis today. - Paraproteinemia - Patient fulfills new criteria for multiple myeloma with free kappa/ free lambda light chain ratio of 432 (>100 is diagnostic of myeloma) - [place]/Lambda ratio > 100 consistent with Multiple myeloma - M spike elevated elevated at 6.8 previously 4.7 -c/w decadron for now per oncology although likely contributing to his MELITA, will reasses after family meeting/GOC Endo: - Parathyroid hormone WNL - PTH-borderline low appropriate given hypercalcemia, PTHrP low Prophylaxis: - heparin gtt - Protonix F/E/N: F: No standing fluids due to fluid overload in lungs E: Will replete lytes PRN N: tube feeds. Code Status: Full Code - GOC/family meeting today w/ daughter. - Patient will likely need a trach Dispo: Patient will continue to receive ICU level care Visit type - Emergency Visit Emergency Visit: Yes ED Registration Date: 02/06/18 Care time: The patient presented to the Emergency Department on the above date and was hospitalized for further evaluation of their emergent condition. - New Patient This patient is new to me today: Yes Date on this admission: 02/23/18 - Critical Care Critical Care patient: Yes Total Critical Care Time (in minutes): 40 Critical Care Statement: The care of this patient involved high complexity decision making to prevent further life threatening deterioration of the patient 's condition and/or to evaluate & treat vital organ system(s) failure or risk of failure.
[2018-02-23] MEDS ORDERED: HEPARIN NA (PORCINE) 5,000 UNITS/ML 1ML VIAL IVPUSH PRN ×2 (15:20)
[2018-02-23] MEDS: HEPARIN - 25,000 UNIT in SODIUM CHLORIDE 495 ML IV SCH (16:35)
[2018-02-23 17:05] LABS: ANION GAP 7 MMOL/L (8-16); CHLORIDE 121 mmol/L (98-107); CO2 17 mmol/L (21-32); GLUCOSE,RANDOM 147 mg/dL (74-106); SODIUM 145 mmol/L (136-145)
[2018-02-23 17:06] LABS: CALCIUM 6.6 mg/dL (8.5-10.1); POTASSIUM 6.1 mmol/L (3.5-5.1)
[2018-02-23 17:08] LABS: BLOOD UREA NITROGEN 118 mg/dL (7-18)
[2018-02-23] MEDS ORDERED: BISMUTH SUBSALICYLATE 262 MG/15 ML BTL PO ONE (17:08)
[2018-02-23] MEDS ORDERED: DEXTROSE 50%-WATER 25 GM/50 ML DISP.SYRIN ONE (17:15)
[2018-02-23 17:46] LABS: URIC ACID 8.4 mg/dL (2.6-7.2)
[2018-02-23] MEDS ORDERED: METOPROLOL TARTRATE 5 MG/5 ML VIAL ONE (17:50)
[2018-02-23] MEDS ORDERED: CALCIUM CHLORIDE 1 GM/10 ML *DISP.SYRIN ONE (17:50)
[2018-02-23] MEDS: INSULIN REGULAR HUMAN 100 UNITS/ML *VIAL IVPUSH ONE ×2 (18:01→18:04)
[2018-02-23] MEDS: DEXTROSE 50%-WATER 25 GM/50 ML DISP.SYRIN IVPUSH ONE ×2 (18:02→18:04)
[2018-02-23] MEDS: SODIUM CHLORIDE 1,000 ML IV SCH ×2 (18:02→18:04)
[2018-02-23] MEDS: SODIUM POLYSTYRENE SULFONATE 15 GM/60 ML BOTTLE PO ONE ×2 (18:02→18:04)
[2018-02-23] MEDS: SODIUM CHLORIDE 250 ML IV STA ×2 (18:02→18:04)
[2018-02-23] MEDS: CALCIUM GLUCONATE 10% - 1,000 MG/10 ML VIAL IVPUSH ONE ×2 (18:03)
[2018-02-23] MEDS ORDERED: ACETAMINOPHEN 1000 MG/100 ML VIAL (NON FORMULARY) IVPB ONE (19:45)
--- NOTE | 2018-02-23 20:13 | PN ---
Progress Note (short form) - Note Progress Note: Patient seen and examined Intubated Unresponsive Last Vital Signs Temp Pulse Resp BP Pulse Ox 101 F H 124 H 17 138/74 99 02/23/18 18:00 02/23/18 18:02 02/23/18 18:32 02/23/18 18:02 02/23/18 11:47 Cor: RSR, No murmurs, No gallops Lungs: Clear to P&A Abd: Soft, Normal bowel sounds, No organomegaly Ext:No significant edema Abnormal Lab Results 02/23/18 02/23/18 02/23/18 05:30 07:00 16:05 WBC 12.3 H RBC 2.85 L Hgb 8.5 L Hct 25.9 L RDW 17.5 H Absolute Neuts (auto) 8.9 H Neutrophils % 87.9 H Lymphocytes % (Manual) 6.2 L D Monocytes % 2.6 L Nucleated RBC % 18 H* Metamyelocytes 4 H D PTT (Actin FS) Potassium 6.0 H 6.1 H* Chloride 120 H 121 H Carbon Dioxide 20 L 17 L Anion Gap 6 L 7 L BUN 109 H* 118 H* Creatinine 2.9 H 3.0 H Random Glucose 128 H 147 H Uric Acid 8.4 H Calcium 6.3 L* 6.6 L* Phosphorus 5.4 H Magnesium 3.2 H AST 333 H ALT 572 H Alkaline Phosphatase 163 H CK-MB (CK-2) 7.3 H Troponin I 0.69 H* 0.71 H* Total Protein 10.8 H Albumin 1.8 L 02/23/18 16:05 WBC RBC Hgb Hct RDW Absolute Neuts (auto) Neutrophils % Lymphocytes % (Manual) Monocytes % Nucleated RBC % Metamyelocytes PTT (Actin FS) 19.2 L Potassium Chloride Carbon Dioxide Anion Gap BUN Creatinine Random Glucose Uric Acid Calcium Phosphorus Magnesium AST ALT Alkaline Phosphatase CK-MB (CK-2) Troponin I Total Protein Albumin A/P 77 year old gentleman with hx of CKD, Afib on A/C, CAD, CKD, Hypertension, Hyperlipidemia, PVD who presented with AMS/Confusion and found to have MELITA/ hypercalcemia/anemia SFLCA --[place] chains--2000s/ratio 438 IgG > 7grams IgM < 5 myeloma renal failure altered mental status fevers overall poor prognosis
[2018-02-23 22:49] LABS: ALBUMIN 1.6 g/dl (3.4-5.0); ALK PHOS 125 U/L (45-117); ANION GAP 7 MMOL/L (8-16); BILIRUBIN,TOTAL 0.4 mg/dL (0.2-1); CHLORIDE 122 mmol/L (98-107); CO2 18 mmol/L (21-32); CREATININE 3.1 mg/dL (0.55-1.3); GLUCOSE,RANDOM 172 mg/dL (74-106); SGOT/AST 168 U/L (15-37); SGPT/ALT 433 U/L (13-61); SODIUM 147 mmol/L (136-145); TOT PROT 9.7 g/dl (6.4-8.2)
[2018-02-23 22:51] LABS: BLOOD UREA NITROGEN 121 mg/dL (7-18); POTASSIUM 6.2 mmol/L (3.5-5.1)
[2018-02-23 22:52] LABS: CALCIUM 6.5 mg/dL (8.5-10.1)
--- NOTE | 2018-02-23 22:58 | PN ---
Progress Note (short form) - Note Progress Note: Potassium rising discussed with dr dejesus and dr garcia started on IV fluid. will give him anti hyperkalemic treatment. albuterol, kaxylate, insulin with d50, guillaume gluconate.
[2018-02-23] MEDS ORDERED: FUROSEMIDE 40 MG/4 ML INJECTABLE VIAL IVPUSH ONE (23:15)
[2018-02-23] MEDS: SODIUM BICARBONATE 8.4% - 75 MEQ in SODIUM CHLORIDE 0.45% 1,000 ML IV SCH (23:25)
[2018-02-24] MEDS: PROPOFOL 1,000,000 MCG/100 ML VIAL IVPB SCH (00:05)
[2018-02-24 06:21] LABS: BASO % 0.4 % (0-2.0); EOS % 0.1 % (0-4.5); HEMATOCRIT 20.7 % (35.4-49); LYMPH % 10.7 % (8-40); MCH 30.2 pg (25.7-33.7); MCHC 33.4 g/dl (32.0-35.9); MEAN CELL VOLUME 90.5 fl (80-96); MONO % 4.4 % (3.8-10.2); NEUT % 84.4 % (42.8-82.8); PLATELET COUNT 212 K/MM3 (134-434); RBC 2.28 M/mm3 (4.00-5.60); RDW 16.8 % (11.9-15.9); WHITE BLOOD COUNT 8.7 K/mm3 (4.0-10.0)
[2018-02-24] MEDS: LACTULOSE 20 GM/30 ML UDC (FOR ORAL USE ONLY) PO SCH ×3 (06:31→21:43)
[2018-02-24 06:33] LABS: ALBUMIN 1.5 g/dl (3.4-5.0); ALK PHOS 114 U/L (45-117); ANION GAP 5 MMOL/L (8-16); BILIRUBIN,TOTAL 0.3 mg/dL (0.2-1); CHLORIDE 123 mmol/L (98-107); CO2 21 mmol/L (21-32); CREATININE 2.9 mg/dL (0.55-1.3); GLUCOSE,RANDOM 115 mg/dL (74-106); POTASSIUM 5.4 mmol/L (3.5-5.1); SGOT/AST 107 U/L (15-37); SGPT/ALT 383 U/L (13-61); SODIUM 150 mmol/L (136-145); TOT PROT 9.8 g/dl (6.4-8.2)
[2018-02-24 06:45] LABS: BLOOD UREA NITROGEN 111 mg/dL (7-18); CALCIUM 6.2 mg/dL (8.5-10.1)
[2018-02-24 06:56] LABS: ARTERIAL BLD GAS O2 SATURATION 98.3 % (90-98.9); ARTERIAL BLOOD GAS BASE EXCESS -2.8 meq/l (-2-2); ARTERIAL BLOOD GAS PCO2 33.8 mmHg (35-45); ARTERIAL BLOOD GAS pH 7.41 (7.35-7.45)
[2018-02-24 06:58] LABS: ALLENS TEST POSITIVE
[2018-02-24 07:14] LABS: HEMOGLOBIN 6.9 GM/dL (11.7-16.9)
--- NOTE | 2018-02-24 07:27 | PN ---
Progress Note (short form) - Note Progress Note: Renal follow up for Hypercalcemia/MELITA Pt seen and examined at the bedside on Vent, sedated making urine via francois no pressers required on IVF Vital Signs Temperature 97.8 F 02/24/18 06:00 Pulse Rate 101 H 02/24/18 07:05 Respiratory Rate 15 02/24/18 07:05 Blood Pressure 96/54 L 02/24/18 06:00 O2 Sat by Pulse Oximetry (%) 99 02/24/18 07:05 Intake & Output 02/21/18 02/22/18 02/23/18 02/24/18 23:59 23:59 23:59 23:59 Intake Total 960 1290 910 800 Output Total 7020 057 5776 500 Balance -365 640 -790 300 Weight 83.518 kg 80.938 kg 80.541 kg 80.541 kg NAD, sedated ET tube in place tachycardic, No M/R Dec Bs soft NT/ND No LE edema francois in place CBC, BMP 02/24/18 05:30 02/24/18 05:30 Laboratory Tests 02/24/18 05:30 Calcium 6.2 L* Phosphorus 5.0 H Magnesium 3.0 H Albumin 1.5 L Current Medications Acetaminophen (Tylenol -) 650 mg PO Q6H PRN PRN Reason: PAIN LEVEL 1 - 3 Last Admin: 02/23/18 16:25 Dose: 650 mg Acetaminophen (Tylenol Suppository -) 650 mg RC Q6H PRN PRN Reason: FEVER Allopurinol (Zyloprim -) 100 mg PO BID [facility] Last Admin: 02/23/18 21:07 Dose: 100 mg Chlorhexidine Gluconate (Peridex -) 15 ml MM BID [facility] Last Admin: 02/23/18 21:05 Dose: 15 ml Cholecalciferol (Vitamin D3 -) 1,000 unit PO DAILY [facility] Diphenhydramine HCl (Benadryl Injection -) 25 mg IVPB ONCE PRN PRN Reason: DURING PLASMAPHERESIS Ergocalciferol (Drisdol Oral Solution -) 8,000 units PO DAILY [facility] Stop: 02/24/18 08:37 Last Admin: 02/23/18 09:02 Dose: 8,000 units Heparin Sodium (Porcine) (Heparin -) 1,000 unit IVPUSH PRN PRN PRN Reason: Heparin Heparin Sodium (Porcine) (Heparin -) 5,000 unit IVPUSH PRN PRN PRN Reason: Heparin Ceftazidime 1 gm/ Dextrose 50 mls @ 200 mls/hr IVPB DAILY [facility]; Protocol Last Admin: 02/23/18 09:01 Dose: 200 mls/hr Heparin Sodium (Porcine) 25, (000 unit/ Sodium Chloride) 500 mls @ 20 mls/hr IV TITR [facility]; Protocol Last Admin: 02/23/18 16:35 Dose: 1,000 unit/hr, 20 mls/hr Sodium Bicarbonate 75 meq/ (Sodium Chloride) 1,075 mls @ 100 mls/hr IV Q10H [facility] Last Admin: 02/23/18 23:25 Dose: 100 mls/hr Lactulose (Cephulac (Oral Use)) 20 gm PO TID [facility] Last Admin: 02/24/18 06:31 Dose: 20 gm Metoprolol Tartrate (Lopressor Injection -) 5 mg IVPUSH Q8H PRN PRN Reason: TACHYCARDIA Metoprolol Tartrate (Lopressor -) 75 mg PO BID [facility] Last Admin: 02/23/18 21:05 Dose: 75 mg Pantoprazole Sodium (Protonix Iv) 40 mg IVPUSH DAILY [facility] Last Admin: 02/23/18 09:04 Dose: 40 mg Rifaximin (Xifaxan -) 550 mg PO BID [facility] Last Admin: 02/23/18 21:08 Dose: 550 mg Thiamine HCl (Vitamin B1 -) 100 mg PO DAILY [facility] Last Admin: 02/23/18 09:02 Dose: 100 mg 77 year old gentleman with hx of CKD, Afib on A/C, CAD, CKD, Hypertension, Hyperlipidemia, PVD who presented with AMS/Confusion and found to have MELITA. #MELITA ATN vs. 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 tubular injury, US showed no stones or obstruction, UA w/o protein but UPCR ~0.5 indicating non- albumin proteinuria) #AMS #Newly diagnosed multiple myloma #Anemia #Hypercalcemia of Malignancy (PTH is low) #Hyperdense lesion on US of the kidney #Normal anion gap metabolic acidosis #Hyperkalemia (r/o tumor lysis) Hyperkalemia mildly improved would continue moderate IVF with bicarb to move K intracellular and increae distal dilivery of sodium to promote potassium excretion Trend serum K, Ca Q6h If corrected Ca < 7.5 would discontinue bicarb Keep MAP > 65 Prognosis is very poor and THREAD SINGER would not signficnatly extend life or improve quality of life given co-morbid conditions Heme Follow up, steroids being held at this time Transfuse PRBC as per ICU protocol Mack Miller DO
--- NOTE | 2018-02-24 08:07 | PN ---
Progress Note (short form) - Note Progress Note: PULM/CCM SUBJECTIVE: Patient seen and examined in the ICU. -Crit slow drop on hep gtt, no overt signs of bleeding -mental status remains poor -family gathering to discuss palliative extubation vs trach, updated but undecided at this time OBJECTIVE: Vital Signs Temp 97.8 F 02/24/18 06:00 Pulse 101 H 02/24/18 07:05 Resp 15 02/24/18 07:05 BP 96/54 L 02/24/18 06:00 Pulse Ox 99 02/24/18 07:05 Intake & Output 02/23/18 02/23/18 02/24/18 11:59 23:59 11:59 Intake Total 130 780 800 Output Total 800 900 500 Balance -670 -120 300 Weight 80.541 kg 80.541 kg Intake: IV 70 410 550 DIPRIVAN - 1,000,000 mcg 35 60 60 In 100 ml @ 5 MCG/KG/MIN 2.479 mls/hr IVPB TITR [facility] Rx#:[id number] Heparin - 25,000 Unit In 40 240 Normal Saline - 495 ml @ 1,000 UNIT/HR 20 mls/hr IV TITR [facility] Rx#: [id number] Normal Saline - 250 ml @ 250 250 250 mls/hr IV ASDIR STA Rx#:[id number] Sublimaze Injection - 500 35 60 Mcg In D5w - 90 ml @ 25 MCG/HR 5 mls/hr IVPB TITR [facility] Rx#:[id number] IVPB 250 250 Tube Irrigant 60 120 Output: Urine 800 900 500 Brenner 800 900 500 Other: Voiding Method Indwelling Catheter Incontinent Bowel Movement Yes No No # Bowel Movements 1 1 Body Mass Index (BMI) 24.1 Weight Measurement Method [facility] Active Medications Acetaminophen (Tylenol -) 650 mg PO Q6H PRN PRN Reason: PAIN LEVEL 1 - 3 Last Admin: 02/23/18 16:25 Dose: 650 mg Acetaminophen (Tylenol Suppository -) 650 mg RC Q6H PRN PRN Reason: FEVER Allopurinol (Zyloprim -) 100 mg PO BID [facility] Last Admin: 02/23/18 21:07 Dose: 100 mg Chlorhexidine Gluconate (Peridex -) 15 ml MM BID [facility] Last Admin: 02/23/18 21:05 Dose: 15 ml Cholecalciferol (Vitamin D3 -) 1,000 unit PO DAILY [facility] Diphenhydramine HCl (Benadryl Injection -) 25 mg IVPB ONCE PRN PRN Reason: DURING PLASMAPHERESIS Ergocalciferol (Drisdol Oral Solution -) 8,000 units PO DAILY [facility] Stop: 02/24/18 08:37 Last Admin: 02/23/18 09:02 Dose: 8,000 units Heparin Sodium (Porcine) (Heparin -) 1,000 unit IVPUSH PRN PRN PRN Reason: Heparin Heparin Sodium (Porcine) (Heparin -) 5,000 unit IVPUSH PRN PRN PRN Reason: Heparin Ceftazidime 1 gm/ Dextrose 50 mls @ 200 mls/hr IVPB DAILY [facility]; Protocol Last Admin: 02/23/18 09:01 Dose: 200 mls/hr Heparin Sodium (Porcine) 25, (000 unit/ Sodium Chloride) 500 mls @ 20 mls/hr IV TITR [facility]; Protocol Last Admin: 02/23/18 16:35 Dose: 1,000 unit/hr, 20 mls/hr Sodium Bicarbonate 75 meq/ (Sodium Chloride) 1,075 mls @ 100 mls/hr IV Q10H [facility] Last Admin: 02/23/18 23:25 Dose: 100 mls/hr Lactulose (Cephulac (Oral Use)) 20 gm PO TID [facility] Last Admin: 02/24/18 06:31 Dose: 20 gm Metoprolol Tartrate (Lopressor Injection -) 5 mg IVPUSH Q8H PRN PRN Reason: TACHYCARDIA Metoprolol Tartrate (Lopressor -) 75 mg PO BID [facility] Last Admin: 02/23/18 21:05 Dose: 75 mg Pantoprazole Sodium (Protonix Iv) 40 mg IVPUSH DAILY [facility] Last Admin: 02/23/18 09:04 Dose: 40 mg Rifaximin (Xifaxan -) 550 mg PO BID [facility] Last Admin: 02/23/18 21:08 Dose: 550 mg Thiamine HCl (Vitamin B1 -) 100 mg PO DAILY [facility] Last Admin: 02/23/18 09:02 Dose: 100 mg Gen: intubated, poorly responsive Heart: irregular Lung: scattered rhonchi Abd: soft, nontender Ext: no edema Laboratory Results - last 24 hr 02/23/18 02/23/1802/23/18 16:05 16:05 22:00 WBC RBC Hgb Hct MCV MCH MCHC RDW Plt Count MPV Absolute Neuts (auto) Neutrophils % Lymphocytes % Monocytes % Eosinophils % Basophils % Nucleated RBC % PTT (Actin FS) 19.2 L Puncture Site ABG pH ABG pCO2 at Pt Temp ABG pO2 at Pt Temp ABG HCO3 ABG O2 Sat (Measured) ABG O2 Content ABG Base Excess Vinny Test Oxygen Flow Rate Vent Mode Vent Rate PEEP Pressure Support Vent Sodium 145 Potassium 6.1 H* Cancelled Chloride 121 H Carbon Dioxide 17 L Anion Gap 7 L BUN 118 H* Creatinine 3.0 H Creat Clearance w eGFR 20.29 Random Glucose 147 H Uric Acid 8.4 H Calcium 6.6 L* Phosphorus Magnesium Total Bilirubin AST ALT Alkaline Phosphatase Ammonia Creatine Kinase 187 Creatine Kinase Index 3.9 CK-MB (CK-2) 7.3 H Troponin I 0.71 H* Total Protein Albumin Blood Type Antibody Screen Crossmatch 02/23/18 02/23/18 02/24/18 22:00 22:00 05:30 WBC 8.7 RBC 2.28 L Hgb 6.9 L* Hct 20.7 L D MCV 90.5 MCH 30.2 MCHC 33.4 RDW 16.8 H Plt Count 212 MPV 9.0 Absolute Neuts (auto) 7.3 Neutrophils % 84.4 H Lymphocytes % 10.7 Monocytes % 4.4 Eosinophils % 0.1 Basophils % 0.4 Nucleated RBC % 4 H PTT (Actin FS) 69.4 H Puncture Site ABG pH ABG pCO2 at Pt Temp ABG pO2 at Pt Temp ABG HCO3 ABG O2 Sat (Measured) ABG O2 Content ABG Base Excess Vinny Test Oxygen Flow Rate Vent Mode Vent Rate PEEP Pressure Support Vent Sodium 147 H Potassium 6.2 H* Chloride 122 H Carbon Dioxide 18 L Anion Gap 7 L BUN 121 H* Creatinine 3.1 H Creat Clearance w eGFR 19.53 Random Glucose 172 H Uric Acid Calcium 6.5 L* Phosphorus Magnesium Total Bilirubin 0.4 AST 168 H ALT 433 H Alkaline Phosphatase 125 H Ammonia Creatine Kinase Creatine Kinase Index CK-MB (CK-2) Troponin I Total Protein 9.7 H Albumin 1.6 L Blood Type Antibody Screen Crossmatch 02/24/18 02/24/18 02/24/18 05:30 05:30 06:15 WBC RBC Hgb Hct MCV MCH MCHC RDW Plt Count MPV Absolute Neuts (auto) Neutrophils % Lymphocytes % Monocytes % Eosinophils % Basophils % Nucleated RBC % PTT (Actin FS) Puncture Site Right radial ABG pH 7.41 ABG pCO2 at Pt Temp 33.8 L ABG pO2 at Pt Temp 118.0 H D ABG HCO3 20.9 L ABG O2 Sat (Measured) 98.3 ABG O2 Content 10.4 L ABG Base Excess -2.8 L Vinny Test Positive Oxygen Flow Rate 40 Vent Mode A/cprvc Vent Rate 14 PEEP 5.0 Pressure Support Vent 500 Sodium 150 H Potassium 5.4 H Chloride 123 H Carbon Dioxide 21 Anion Gap 5 L BUN 111 H* Creatinine 2.9 H Creat Clearance w eGFR 21.10 Random Glucose 115 H Uric Acid Calcium 6.2 L* Phosphorus 5.0 H Magnesium 3.0 H Total Bilirubin 0.3 AST 107 H ALT 383 H Alkaline Phosphatase 114 Ammonia 62.00 H Creatine Kinase Creatine Kinase Index CK-MB (CK-2) Troponin I Total Protein 9.8 H Albumin 1.5 L Blood Type Antibody Screen Crossmatch 02/24/18 08:05 WBC RBC Hgb Hct MCV MCH MCHC RDW Plt Count MPV Absolute Neuts (auto) Neutrophils % Lymphocytes % Monocytes % Eosinophils % Basophils % Nucleated RBC % PTT (Actin FS) Puncture Site ABG pH ABG pCO2 at Pt Temp ABG pO2 at Pt Temp ABG HCO3 ABG O2 Sat (Measured) ABG O2 Content ABG Base Excess Vinny Test Oxygen Flow Rate Vent Mode Vent Rate PEEP Pressure Support Vent Sodium Potassium Chloride Carbon Dioxide Anion Gap BUN Creatinine Creat Clearance w eGFR Random Glucose Uric Acid Calcium Phosphorus Magnesium Total Bilirubin AST ALT Alkaline Phosphatase Ammonia Creatine Kinase Creatine Kinase Index CK-MB (CK-2) Troponin I Total Protein Albumin Blood Type B POSITIVE Antibody Screen Negative Crossmatch See Detail ASSESSMENT AND PLAN: Acute Hypoxic Respiratory Failure Altered Mental Status Metabolic Encephalopathy Pneumonia Acalculous Cholecystitis Multiple Myeloma Acute on Chronic Renal Failure Metabolic Acidosis LV Diastolic Dysfunction Atrial Fibrillation CAD +Troponins likely Demand Ischemia PAD Hyperlipidemia HTN - continue antibiotics per ID - GI eval for cholecystitis, no indication for intervention at this time - trend LFTs - monitor urine output, creatinine - rate control - continue anticoagulation - minimize sedation to assess mental status - spontaneous breathing trials as tolerated - DVT/GI prophylaxis - continue discussions regarding goals of care: Compassionate extubation versus Tracheostomy - palliative care involved - continue ICU monitoring - grave overall prognosis, poor mental status, renal failure, resp failure Sal[facility] 35min CCT
[2018-02-24] MEDS ORDERED: PT OWN MED DRAWER 7, Y5N ONE (09:12)
[2018-02-24] MEDS: THIAMINE HCL 100 MG TABLET (FP) PO SCH (09:13)
[2018-02-24] MEDS: CEFTAZIDIME PENTAHYDRATE 1 GM in DEXTROSE 5%-WATER - 50 ML IVPB SCH (09:13)
[2018-02-24] MEDS: METOPROLOL TARTRATE 50 MG TABLET (FP) PO SCH ×2 (09:13→21:44)
[2018-02-24] MEDS: PANTOPRAZOLE SODIUM 40 MG VIAL IVPUSH SCH (09:13)
[2018-02-24] MEDS: ALLOPURINOL 100 MG TABLET (FP) PO SCH ×2 (09:13→21:45)
[2018-02-24] MEDS: RIFAXIMIN 550 MG TABLET (UD) PO SCH ×2 (09:13→21:44)
[2018-02-24] MEDS: CHLORHEXIDINE GLUCONATE 0.12% 15ML CUP MM SCH ×2 (09:13→21:44)
--- NOTE | 2018-02-24 11:47 | PN ---
Progress Note, Physician History of Present Illness: Poorly responsive on vent, rapid persistent afib overnight on lopressor and heparin gtt. Family by bedside. - Current Medication List Current Medications: Active Medications Acetaminophen (Tylenol -) 650 mg PO Q6H PRN PRN Reason: PAIN LEVEL 1 - 3 Last Admin: 02/23/18 16:25 Dose: 650 mg Acetaminophen (Tylenol Suppository -) 650 mg RC Q6H PRN PRN Reason: FEVER Allopurinol (Zyloprim -) 100 mg PO BID [facility] Last Admin: 02/24/18 09:13 Dose: 100 mg Chlorhexidine Gluconate (Peridex -) 15 ml MM BID [facility] Last Admin: 02/24/18 09:13 Dose: 15 ml Cholecalciferol (Vitamin D3 -) 1,000 unit PO DAILY [facility] Diphenhydramine HCl (Benadryl Injection -) 25 mg IVPB ONCE PRN PRN Reason: DURING PLASMAPHERESIS Heparin Sodium (Porcine) (Heparin -) 1,000 unit IVPUSH PRN PRN PRN Reason: Heparin Heparin Sodium (Porcine) (Heparin -) 5,000 unit IVPUSH PRN PRN PRN Reason: Heparin Ceftazidime 1 gm/ Dextrose 50 mls @ 200 mls/hr IVPB DAILY [facility]; Protocol Last Admin: 02/24/18 09:13 Dose: 200 mls/hr Heparin Sodium (Porcine) 25, (000 unit/ Sodium Chloride) 500 mls @ 20 mls/hr IV TITR [facility]; Protocol Last Admin: 02/23/18 16:35 Dose: 1,000 unit/hr, 20 mls/hr Sodium Bicarbonate 75 meq/ (Sodium Chloride) 1,075 mls @ 100 mls/hr IV Q10H [facility] Last Admin: 02/23/18 23:25 Dose: 100 mls/hr Lactulose (Cephulac (Oral Use)) 20 gm PO TID [facility] Last Admin: 02/24/18 06:31 Dose: 20 gm Metoprolol Tartrate (Lopressor Injection -) 5 mg IVPUSH Q8H PRN PRN Reason: TACHYCARDIA Metoprolol Tartrate (Lopressor -) 75 mg PO BID [facility] Last Admin: 02/24/18 09:13 Dose: Not Given Pantoprazole Sodium (Protonix Iv) 40 mg IVPUSH DAILY [facility] Last Admin: 02/24/18 09:13 Dose: 40 mg Rifaximin (Xifaxan -) 550 mg PO BID [facility] Last Admin: 02/24/18 09:13 Dose: 550 mg Thiamine HCl (Vitamin B1 -) 100 mg PO DAILY [facility] Last Admin: 02/24/18 09:13 Dose: 100 mg - Objective Vital Signs: Vital Signs Temperature 97.6 F 02/24/18 10:00 Pulse Rate 99 H 02/24/18 10:00 Respiratory Rate 16 02/24/18 10:00 Blood Pressure 115/79 02/24/18 10:00 O2 Sat by Pulse Oximetry (%) 100 02/24/18 09:00 Constitutional: Yes: No Distress, Calm, Thin Neck: Yes: Supple Cardiovascular: Yes: Tachycardia, Pulse Irregular Respiratory: Yes: Intubated, Mechanically Ventilated, Rhonchi Gastrointestinal: Yes: Soft, Hypoactive Bowel Sounds Edema: No Labs: CBC, BMP 02/24/18 05:30 02/24/18 05:30 INR, PTT INR 1.28 (0.83-1.09) H 02/22/18 05:30 Fibrinogen 290.0 mg/dL (238-498) 02/18/18 06:00 - ....Imaging Chest X-ray: Report Reviewed (Stable) Problem List - Problems (1) Atrial fibrillation with RVR Code(s): I48.91 - UNSPECIFIED ATRIAL FIBRILLATION (2) [id number] kidney injury Code(s): N17.9 - ACUTE KIDNEY FAILURE, UNSPECIFIED; N18.9 - CHRONIC KIDNEY DISEASE, UNSPECIFIED Qualifiers: Acute renal failure type: unspecified Chronic kidney disease stage: unspecified stage Qualified Code(s): N17.9 - Acute kidney failure, unspecified ; N18.9 - Chronic kidney disease, unspecified (3) Demand ischemia Code(s): I24.8 - OTHER FORMS OF ACUTE ISCHEMIC HEART DISEASE (4) Hypercalcemia Code(s): E83.52 - HYPERCALCEMIA (5) Nonadherence to medication Code(s): Z91.14 - PATIENT'S OTHER NONCOMPLIANCE WITH MEDICATION REGIMEN (6) Paraproteinemia Code(s): D89.2 - HYPERGAMMAGLOBULINEMIA, UNSPECIFIED (7) Anticoagulant long-term use Code(s): Z79.01 - [employer] (CURRENT) USE OF ANTICOAGULANTS (8) Chronic thromboembolic disease Code(s): I74.9 - EMBOLISM AND THROMBOSIS OF UNSPECIFIED ARTERY (9) Coronary artery disease Code(s): I25.10 - ATHSCL HEART DISEASE OF [place] CORONARY ARTERY W/O ANG PCTRS Qualifiers: Coronary Disease-Associated Artery/Lesion type: [place] artery [place] vs. transplanted heart: [place] heart Associated angina: without angina Qualified Code(s): I25.10 - Atherosclerotic heart disease of [place] coronary artery without angina pectoris (10) Diastolic dysfunction without heart failure Code(s): I51.9 - HEART DISEASE, UNSPECIFIED (11) HTN (hypertension) Code(s): I10 - ESSENTIAL (PRIMARY) HYPERTENSION Qualifiers: Hypertension type: essential hypertension Qualified Code(s): I10 - Essential (primary) hypertension (12) Hypertrophic cardiomyopathy Code(s): I42.2 - OTHER HYPERTROPHIC CARDIOMYOPATHY (13) Hyperlipidemia Code(s): E78.5 - HYPERLIPIDEMIA, UNSPECIFIED Qualifiers: Hyperlipidemia type: pure hypercholesterolemia Qualified Code(s): E78.00 - Pure hypercholesterolemia, unspecified; E78.0 - Pure hypercholesterolemia (14) Multiple myeloma Code(s): C90.00 - MULTIPLE MYELOMA NOT HAVING ACHIEVED REMISSION Qualifiers: Multiple myeloma remission status: not in remission Qualified Code(s): C90.00 - Multiple myeloma not having achieved remission (15) Acalculous cholecystitis Code(s): K81.9 - CHOLECYSTITIS, UNSPECIFIED Assessment/Plan R&LHc at [facility] 04/20/2016 showing nonobstructive CAD, severe LV apical hypertrophic cardiomyopathy, mildly elevated right sided pressures, Mynx deployed right FIELD [employer] access site. 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 Echocardiogram: 10/18/2017 Mod cLVH, severe PURVI, mod TR RVSP 50-60 mmHg, mod- severe MR Echocardiogram: 01/23/2018 Normal LV size with hyperdynamic LVEF 75%, mild BSH, normal RV size and fxn, severe LAE, mod-severe MR, mod TR 1. Acute hypoxic respiratory failure, suspected aspiration pneumonia 2. Toxic metabolic encephelopathy, possible hyperviscosity syndrome, sepsis 3. Acute on CKD (suspect myeloma kidney) 4. Hypercalcemia, paraproteinemia, anemia-> confirmed multiple myeloma, hyperviscosity syndrome 5. History of bilateral SFA occlusion post thrombectomy, referable to embolic disease related to persistent atrial fibrillation with [id number] score of 6, history of poor compliance with anticoagulation and medical F/U 6. Non obstructive CAD on R&LHc coronary angiography with demand ischemia 7. LV diastolic dysfunction related to apical hypertrophic cardiomyopathy, subendocardial ischemia, compensated/euvolemic 8. Persistent atrial fibrillation with RVR [id number] score of 6 on heparin gtt 9. Labile HTN 10. Acalculous Cholecystitis 11. Ischemic hepatitis 12. Anemia PLAN: 1. Heparin gtt while off Xarelto 15 qd (renal dosing). transfuse to maintain Hgb >8.0 2. Uptitrated Lopressor 75 bid as hemodynamics tolerate with IV Lopressor as needed for rate-control 3. Empiric renal-dosed abx course pending C&S 4. Enteral feeds, lactulose for hyperammonemia, monitor ammonia levels 5. Ventilator management, wean off sedation, IV steroids with GI protection 6. Consider IR cholecystotomy decompression per GI recs 7. LFTs downtrending 8. Continue discussions regarding goals of care with family: Compassionate extubation versus Tracheostomy
[2018-02-24 12:11] LABS: ANISOCYTOSIS 2+; MACROCYTOSIS 1+; PLATELET ESTIMATE NORMAL; ROULEAU 2+
--- NOTE | 2018-02-24 12:37 | PN ---
Progress Note, Physician Chief Complaint: INTUBATED, SEDATED EVENTS AND NOTES REVIEWED - Current Medication List Current Medications: Active Medications Acetaminophen (Tylenol -) 650 mg PO Q6H PRN PRN Reason: PAIN LEVEL 1 - 3 Last Admin: 02/23/18 16:25 Dose: 650 mg Acetaminophen (Tylenol Suppository -) 650 mg RC Q6H PRN PRN Reason: FEVER Allopurinol (Zyloprim -) 100 mg PO BID [facility] Last Admin: 02/24/18 09:13 Dose: 100 mg Chlorhexidine Gluconate (Peridex -) 15 ml MM BID [facility] Last Admin: 02/24/18 09:13 Dose: 15 ml Cholecalciferol (Vitamin D3 -) 1,000 unit PO DAILY [facility] Diphenhydramine HCl (Benadryl Injection -) 25 mg IVPB ONCE PRN PRN Reason: DURING PLASMAPHERESIS Heparin Sodium (Porcine) (Heparin -) 1,000 unit IVPUSH PRN PRN PRN Reason: Heparin Heparin Sodium (Porcine) (Heparin -) 5,000 unit IVPUSH PRN PRN PRN Reason: Heparin Ceftazidime 1 gm/ Dextrose 50 mls @ 200 mls/hr IVPB DAILY [facility]; Protocol Last Admin: 02/24/18 09:13 Dose: 200 mls/hr Heparin Sodium (Porcine) 25, (000 unit/ Sodium Chloride) 500 mls @ 20 mls/hr IV TITR [facility]; Protocol Last Admin: 02/23/18 16:35 Dose: 1,000 unit/hr, 20 mls/hr Sodium Bicarbonate 75 meq/ (Sodium Chloride) 1,075 mls @ 100 mls/hr IV Q10H [facility] Last Admin: 02/23/18 23:25 Dose: 100 mls/hr Lactulose (Cephulac (Oral Use)) 20 gm PO TID [facility] Last Admin: 02/24/18 06:31 Dose: 20 gm Metoprolol Tartrate (Lopressor Injection -) 5 mg IVPUSH Q8H PRN PRN Reason: TACHYCARDIA Metoprolol Tartrate (Lopressor -) 75 mg PO BID [facility] Last Admin: 02/24/18 09:13 Dose: Not Given Pantoprazole Sodium (Protonix Iv) 40 mg IVPUSH DAILY [facility] Last Admin: 02/24/18 09:13 Dose: 40 mg Rifaximin (Xifaxan -) 550 mg PO BID [facility] Last Admin: 02/24/18 09:13 Dose: 550 mg Thiamine HCl (Vitamin B1 -) 100 mg PO DAILY [facility] Last Admin: 02/24/18 09:13 Dose: 100 mg - Objective Vital Signs: Vital Signs Temperature 97.6 F 02/24/18 10:00 Pulse Rate 98 H 02/24/18 12:00 Respiratory Rate 16 02/24/18 12:00 Blood Pressure 107/77 02/24/18 12:00 O2 Sat by Pulse Oximetry (%) 100 02/24/18 09:00 Constitutional: Yes: Other Cardiovascular: Yes: Pulse Irregular Respiratory: Yes: Mechanically Ventilated Gastrointestinal: Yes: Other Genitourinary: Yes: Brenner Present Musculoskeletal: Yes: Muscle Weakness Extremities: Yes: Other Neurological: Yes: Unresponsive Labs: CBC, BMP 02/24/18 05:30 02/24/18 05:30 INR, PTT INR 1.28 (0.83-1.09) H 02/22/18 05:30 Fibrinogen 290.0 mg/dL (238-498) 02/18/18 06:00 Problem List - Problems (1) MELITA (acute kidney injury) Code(s): N17.9 - ACUTE KIDNEY FAILURE, UNSPECIFIED (2) Atrial fibrillation with RVR Code(s): I48.91 - UNSPECIFIED ATRIAL FIBRILLATION (3) Hyperlipidemia Code(s): E78.5 - HYPERLIPIDEMIA, UNSPECIFIED Qualifiers: Hyperlipidemia type: pure hypercholesterolemia Qualified Code(s): E78.00 - Pure hypercholesterolemia, unspecified; E78.0 - Pure hypercholesterolemia (4) Hypothermia Code(s): T68.XXXA - HYPOTHERMIA, INITIAL ENCOUNTER Qualifiers: Encounter type: initial encounter Qualified Code(s): T68.XXXA - Hypothermia , initial encounter (5) Cszmo-[id number] kidney injury Code(s): N17.9 - ACUTE KIDNEY FAILURE, UNSPECIFIED; N18.9 - CHRONIC KIDNEY DISEASE, UNSPECIFIED Qualifiers: Acute renal failure type: unspecified Chronic kidney disease stage: unspecified stage Qualified Code(s): N17.9 - Acute kidney failure, unspecified ; N18.9 - Chronic kidney disease, unspecified (6) Generalized weakness Code(s): R53.1 - WEAKNESS (7) History of ETOH abuse Code(s): Z87.898 - PERSONAL HISTORY OF OTHER SPECIFIED CONDITIONS (8) Hypercalcemia Code(s): E83.52 - HYPERCALCEMIA (9) Hypertrophic cardiomyopathy Code(s): I42.2 - OTHER HYPERTROPHIC CARDIOMYOPATHY (10) Toxic metabolic encephalopathy Code(s): G92 - TOXIC ENCEPHALOPATHY (11) Sepsis Code(s): A41.9 - SEPSIS, UNSPECIFIED ORGANISM (12) Respiratory failure Code(s): J96.90 - RESPIRATORY FAILURE, UNSP, UNSP W HYPOXIA OR HYPERCAPNIA Assessment/Plan RESP FAILURE INUBATED PULM F/U WEAN OFF TOLERATED IV ABX PER ID MONITOR CARDIAC FUNCTION HEPARIN IV NEURO EVAL
[2018-02-24] MEDS: SODIUM BICARBONATE 8.4% - 75 MEQ in SODIUM CHLORIDE 0.45% 1,000 ML IV SCH ×2 (14:06→20:52)
--- NOTE | 2018-02-24 14:16 | PN ---
Progress Note (short form) - Note Progress Note: remains sedated and intubated anemic, receiving blood transfusion intermittent fevers Vital Signs Period Temp Pulse Resp BP Sys/Ariza Pulse Ox Last 24 Hr 97.6 F-101 F 92-124 14-20 90-138/54-80 96-100 cor-rrr lulngs decreased bs at bases abd soft,nt ext no edema CBC, BMP 02/24/18 05:30 02/24/18 05:30 lfts improved cxray unchanged blood cultures negative 02/21 a/ respiartory failure RLL pneumonia acalculous cholycystitis renal failure multiple myeloma hyperviscosity syndrome continue fortaz/flagyl transfusion today
[2018-02-24 15:19] LABS: ANION GAP 3 MMOL/L (8-16); CHLORIDE 122 mmol/L (98-107); CO2 23 mmol/L (21-32); CREATININE 2.7 mg/dL (0.55-1.3); GLUCOSE,RANDOM 101 mg/dL (74-106); POTASSIUM 5.4 mmol/L (3.5-5.1); SODIUM 148 mmol/L (136-145)
[2018-02-24 15:21] LABS: BLOOD UREA NITROGEN 109 mg/dL (7-18); CALCIUM 6.3 mg/dL (8.5-10.1)
[2018-02-24] MEDS: HEPARIN - 25,000 UNIT in SODIUM CHLORIDE 495 ML IV SCH (15:52)
--- NOTE | 2018-02-24 18:14 | PN ---
Progress Note, Physician Chief Complaint: Altered mental status History of Present Illness: Pt unable to report - Current Medication List Current Medications: Active Medications Acetaminophen (Tylenol -) 650 mg PO Q6H PRN PRN Reason: PAIN LEVEL 1 - 3 Last Admin: 02/23/18 16:25 Dose: 650 mg Acetaminophen (Tylenol Suppository -) 650 mg RC Q6H PRN PRN Reason: FEVER Allopurinol (Zyloprim -) 100 mg PO BID [facility] Last Admin: 02/24/18 09:13 Dose: 100 mg Chlorhexidine Gluconate (Peridex -) 15 ml MM BID [facility] Last Admin: 02/24/18 09:13 Dose: 15 ml Cholecalciferol (Vitamin D3 -) 1,000 unit PO DAILY [facility] Diphenhydramine HCl (Benadryl Injection -) 25 mg IVPB ONCE PRN PRN Reason: DURING PLASMAPHERESIS Heparin Sodium (Porcine) (Heparin -) 1,000 unit IVPUSH PRN PRN PRN Reason: Heparin Heparin Sodium (Porcine) (Heparin -) 5,000 unit IVPUSH PRN PRN PRN Reason: Heparin Ceftazidime 1 gm/ Dextrose 50 mls @ 200 mls/hr IVPB DAILY [facility]; Protocol Last Admin: 02/24/18 09:13 Dose: 200 mls/hr Sodium Bicarbonate 75 meq/ (Sodium Chloride) 1,075 mls @ 100 mls/hr IV Q10H [facility] Last Admin: 02/24/18 14:06 Dose: 100 mls/hr Metronidazole (Flagyl 500mg Premixed Ivpb -) 500 mg in 100 mls @ 100 mls/hr IVPB BID [facility] Last Admin: 02/24/18 15:51 Dose: 100 mls/hr Lactulose (Cephulac (Oral Use)) 20 gm PO TID [facility] Last Admin: 02/24/18 14:06 Dose: 20 gm Metoprolol Tartrate (Lopressor Injection -) 5 mg IVPUSH Q8H PRN PRN Reason: TACHYCARDIA Metoprolol Tartrate (Lopressor -) 75 mg PO BID [facility] Last Admin: 02/24/18 09:13 Dose: Not Given Pantoprazole Sodium (Protonix Iv) 40 mg IVPUSH DAILY [facility] Last Admin: 02/24/18 09:13 Dose: 40 mg Rifaximin (Xifaxan -) 550 mg PO BID [facility] Last Admin: 02/24/18 09:13 Dose: 550 mg Thiamine HCl (Vitamin B1 -) 100 mg PO DAILY [facility] Last Admin: 02/24/18 09:13 Dose: 100 mg - Objective Vital Signs: Vital Signs Temperature 97.8 F 02/24/18 16:00 Pulse Rate 108 H 02/24/18 16:00 Respiratory Rate 14 02/24/18 17:46 Blood Pressure 119/81 02/24/18 16:00 O2 Sat by Pulse Oximetry (%) 100 02/24/18 09:00 Cardiovascular: Yes: WNL, Regular Rate and Rhythm Respiratory: Yes: Intubated, Mechanically Ventilated. No: WNL Gastrointestinal: Yes: Soft, Abdomen, Obese, Hepatomegaly Edema: Yes Neurological: Yes: Unresponsive Labs: CBC, BMP 02/24/18 05:30 02/24/18 14:40 INR, PTT INR 1.28 (0.83-1.09) H 02/22/18 05:30 Fibrinogen 290.0 mg/dL (238-498) 02/18/18 06:00 Problem List - Problems (1) Multiple myeloma Assessment/Plan: 77M with CAD, CKD , Afib on CAC, PVD admitted with altered mental status and found to have anemia, worsening of renal function and hypercalcemia. Found to have IgG kappa myeloma. S/p plasmapheresis and 5 days of dex with no improvement in mental status. Agree with PRBC transfusion Ongoing GOC discussions Code(s): C90.00 - MULTIPLE MYELOMA NOT HAVING ACHIEVED REMISSION Qualifiers: Multiple myeloma remission status: not in remission Qualified Code(s): C90.00 - Multiple myeloma not having achieved remission
[2018-02-25] MEDS: SODIUM BICARBONATE 8.4% - 75 MEQ in SODIUM CHLORIDE 0.45% 1,000 ML IV SCH ×2 (05:55→16:48)
[2018-02-25 05:57] LABS: HEMATOCRIT 26.3 % (35.4-49); HEMOGLOBIN 8.6 GM/dL (11.7-16.9); MCH 29.3 pg (25.7-33.7); MCHC 32.9 g/dl (32.0-35.9); MEAN PLT VOLUME 8.6 fl (7.5-11.1); PLATELET COUNT 210 K/MM3 (134-434); RBC 2.95 M/mm3 (4.00-5.60); RDW 16.3 % (11.9-15.9); WHITE BLOOD COUNT 6.1 K/mm3 (4.0-10.0)
[2018-02-25] MEDS: LACTULOSE 20 GM/30 ML UDC (FOR ORAL USE ONLY) PO SCH ×3 (05:57→22:22)
--- NOTE | 2018-02-25 08:46 | PN ---
Progress Note (short form) - Note Progress Note: Renal follow up for Hypercalcemia/MELITA Pt seen and examined in the ICU on vent via ET tube no overnight events no diarrhea on IVF no pressers Vital Signs Temperature 99.8 F H 02/25/18 06:00 Pulse Rate 116 H 02/25/18 08:20 Respiratory Rate 18 02/25/18 08:20 Blood Pressure 115/59 L 02/25/18 08:00 O2 Sat by Pulse Oximetry (%) 98 02/25/18 08:20 Intake & Output 02/22/18 02/23/18 02/24/18 02/25/18 23:59 23:59 23:59 23:59 Intake Total 1047 606 9153 100 Output Total 650 1700 1600 300 Balance 640 -790 1180 -200 Weight 80.938 kg 80.541 kg 80.541 kg 80.921 kg NAD on Vent via ET tube RRR Dec BS at the lung bases soft NT/ND no LE edema CBC, BMP 02/25/18 05:30 02/24/18 14:40 Current Medications Acetaminophen (Tylenol -) 650 mg PO Q6H PRN PRN Reason: PAIN LEVEL 1 - 3 Last Admin: 02/23/18 16:25 Dose: 650 mg Acetaminophen (Tylenol Suppository -) 650 mg RC Q6H PRN PRN Reason: FEVER Allopurinol (Zyloprim -) 100 mg PO BID [facility] Last Admin: 02/24/18 21:45 Dose: 100 mg Chlorhexidine Gluconate (Peridex -) 15 ml MM BID [facility] Last Admin: 02/24/18 21:44 Dose: 15 ml Cholecalciferol (Vitamin D3 -) 1,000 unit PO DAILY [facility] Diphenhydramine HCl (Benadryl Injection -) 25 mg IVPB ONCE PRN PRN Reason: DURING PLASMAPHERESIS Heparin Sodium (Porcine) (Heparin -) 1,000 unit IVPUSH PRN PRN PRN Reason: Heparin Heparin Sodium (Porcine) (Heparin -) 5,000 unit IVPUSH PRN PRN PRN Reason: Heparin Ceftazidime 1 gm/ Dextrose 50 mls @ 200 mls/hr IVPB DAILY [facility]; Protocol Last Admin: 02/24/18 09:13 Dose: 200 mls/hr Sodium Bicarbonate 75 meq/ (Sodium Chloride) 1,075 mls @ 100 mls/hr IV Q10H [facility] Last Admin: 02/25/18 05:55 Dose: Not Given Metronidazole (Flagyl 500mg Premixed Ivpb -) 500 mg in 100 mls @ 100 mls/hr IVPB BID [facility] Last Admin: 02/24/18 21:43 Dose: 100 mls/hr Lactulose (Cephulac (Oral Use)) 20 gm PO TID [facility] Last Admin: 02/25/18 05:57 Dose: 20 gm Metoprolol Tartrate (Lopressor Injection -) 5 mg IVPUSH Q8H PRN PRN Reason: TACHYCARDIA Metoprolol Tartrate (Lopressor -) 75 mg PO BID [facility] Last Admin: 02/24/18 21:44 Dose: 75 mg Pantoprazole Sodium (Protonix Iv) 40 mg IVPUSH DAILY [facility] Last Admin: 02/24/18 09:13 Dose: 40 mg Rifaximin (Xifaxan -) 550 mg PO BID [facility] Last Admin: 02/24/18 21:44 Dose: 550 mg Thiamine HCl (Vitamin B1 -) 100 mg PO DAILY [facility] Last Admin: 02/24/18 09:13 Dose: 100 mg 77 year old gentleman with hx of CKD, Afib on A/C, CAD, CKD, Hypertension, Hyperlipidemia, PVD who presented with AMS/Confusion and found to have MELITA. #MELITA ATN vs. 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 tubular injury, US showed no stones or obstruction, UA w/o protein but UPCR ~0.5 indicating non- albumin proteinuria) #AMS #Newly diagnosed multiple myloma #Anemia #Hypercalcemia of Malignancy (PTH is low) #Hyperdense lesion on US of the kidney #Normal anion gap metabolic acidosis #Hyperkalemia (r/o tumor lysis) Renal function stable, BUN very high due to steroids Serum potassium stable as of yesterday afternoon, will check BMP this am on Bicab gtt, if serum K < 5 can stop bicarb Hold bicarb gtt if corrected Ca < 7.5 Trend serum K, Ca Q8H Transfuse as per ICU Vent support Prognosis remains very poor Mack Miller DO
--- NOTE | 2018-02-25 08:48 | PN ---
Progress Note (short form) - Note Progress Note: PULM/CCM SUBJECTIVE: Patient seen and examined in the ICU. -more than approp bump to PRBC from yesterday -still with poor mental status -family meeting without clear decision, said will come back today (most feel would not want trach) -cr downtrending slightly, low grade temp, hemodynamically stable OBJECTIVE: Vital Signs Temp 99.8 F H 02/25/18 06:00 Pulse 116 H 02/25/18 08:20 Resp 18 02/25/18 08:20 BP 115/59 L 02/25/18 08:00 Pulse Ox 98 02/25/18 08:20 Intake & Output 02/24/18 02/24/18 02/25/18 11:59 23:59 11:59 Intake Total 800 1980 100 Output Total 500 1100 300 Balance 300 880 -200 Weight 80.541 kg 80.921 kg Intake: IV 550 1360 DIPRIVAN - 1,000,000 mcg 60 In 100 ml @ 5 MCG/KG/MIN 2.479 mls/hr IVPB TITR [facility] Rx#:[id number] Heparin - 25,000 Unit In 240 160 Normal Saline - 495 ml @ 1,000 UNIT/HR 20 mls/hr IV TITR [facility] Rx#: [id number] Normal Saline - 1,000 ml 1200 @ 100 mls/hr IV [facility] Rx#:[id number] Normal Saline - 250 ml @ 250 250 mls/hr IV [facility] Rx#:[id number] IVPB 250 50 Packed Cells 350 Tube Irrigant 220 100 Output: Urine 500 1100 300 Brenner 500 1100 300 Other: Voiding Method Incontinent Incontinent Bowel Movement No Yes Yes Weight Measurement Method Built in Bedscale Built in Bedscale Active Medications Acetaminophen (Tylenol -) 650 mg PO Q6H PRN PRN Reason: PAIN LEVEL 1 - 3 Last Admin: 02/23/18 16:25 Dose: 650 mg Acetaminophen (Tylenol Suppository -) 650 mg RC Q6H PRN PRN Reason: FEVER Allopurinol (Zyloprim -) 100 mg PO BID [facility] Last Admin: 02/24/18 21:45 Dose: 100 mg Chlorhexidine Gluconate (Peridex -) 15 ml MM BID [facility] Last Admin: 02/24/18 21:44 Dose: 15 ml Cholecalciferol (Vitamin D3 -) 1,000 unit PO DAILY [facility] Diphenhydramine HCl (Benadryl Injection -) 25 mg IVPB ONCE PRN PRN Reason: DURING PLASMAPHERESIS Heparin Sodium (Porcine) (Heparin -) 1,000 unit IVPUSH PRN PRN PRN Reason: Heparin Heparin Sodium (Porcine) (Heparin -) 5,000 unit IVPUSH PRN PRN PRN Reason: Heparin Ceftazidime 1 gm/ Dextrose 50 mls @ 200 mls/hr IVPB DAILY [facility]; Protocol Last Admin: 02/24/18 09:13 Dose: 200 mls/hr Sodium Bicarbonate 75 meq/ (Sodium Chloride) 1,075 mls @ 100 mls/hr IV Q10H [facility] Last Admin: 02/25/18 05:55 Dose: Not Given Metronidazole (Flagyl 500mg Premixed Ivpb -) 500 mg in 100 mls @ 100 mls/hr IVPB BID [facility] Last Admin: 02/24/18 21:43 Dose: 100 mls/hr Lactulose (Cephulac (Oral Use)) 20 gm PO TID [facility] Last Admin: 02/25/18 05:57 Dose: 20 gm Metoprolol Tartrate (Lopressor Injection -) 5 mg IVPUSH Q8H PRN PRN Reason: TACHYCARDIA Metoprolol Tartrate (Lopressor -) 75 mg PO BID [facility] Last Admin: 02/24/18 21:44 Dose: 75 mg Pantoprazole Sodium (Protonix Iv) 40 mg IVPUSH DAILY [facility] Last Admin: 02/24/18 09:13 Dose: 40 mg Rifaximin (Xifaxan -) 550 mg PO BID [facility] Last Admin: 02/24/18 21:44 Dose: 550 mg Thiamine HCl (Vitamin B1 -) 100 mg PO DAILY [facility] Last Admin: 02/24/18 09:13 Dose: 100 mg Gen: intubated, poorly responsive Heart: irregular Lung: scattered rhonchi Abd: soft, nontender Ext: no edema Laboratory Results - last 24 hr 02/24/18 02/24/18 02/24/18 05:30 08:05 14:40 WBC RBC Hgb Hct MCV MCH MCHC RDW Plt Count MPV Neutrophils % (Manual) 80.4 Band Neutrophils % 3.1 Lymphocytes % (Manual) 13.4 D Monocytes % (Manual) 1 L Eosinophils % (Manual) 0.0 Basophils % (Manual) 0.0 Myelocytes % (Man) 2 D Promyelocytes % (Man) 0 Blast Cells % (Manual) 0 Metamyelocytes 0 D Hypochromia 0 Platelet Estimate Normal Polychromasia 1+ Poikilocytosis 0 Basophilic Stippling 1+ Anisocytosis 2+ Microcytosis 1+ Macrocytosis 1+ Rouleaux 2+ PTT (Actin FS) Sodium 148 H Potassium 5.4 H Chloride 122 H Carbon Dioxide 23 Anion Gap 3 L BUN 109 H* Creatinine 2.7 H Creat Clearance w eGFR 22.91 Random Glucose 101 Calcium 6.3 L* Blood Type B POSITIVE Antibody Screen Negative Crossmatch See Detail 02/25/18 02/25/18 05:30 05:30 WBC 6.1 RBC 2.95 L Hgb 8.6 L Hct 26.3 L D MCV 89.0 MCH 29.3 MCHC 32.9 RDW 16.3 H Plt Count 210 MPV 8.6 Neutrophils % (Manual) Band Neutrophils % Lymphocytes % (Manual) Monocytes % (Manual) Eosinophils % (Manual) Basophils % (Manual) Myelocytes % (Man) Promyelocytes % (Man) Blast Cells % (Manual) Metamyelocytes Hypochromia Platelet Estimate Polychromasia Poikilocytosis Basophilic Stippling Anisocytosis Microcytosis Macrocytosis Rouleaux PTT (Actin FS) 32.0 Sodium Potassium Chloride Carbon Dioxide Anion Gap BUN Creatinine Creat Clearance w eGFR Random Glucose Calcium Blood Type Antibody Screen Crossmatch ASSESSMENT AND PLAN: Acute Hypoxic Respiratory Failure Altered Mental Status Metabolic Encephalopathy Pneumonia Acalculous Cholecystitis Multiple Myeloma Acute on Chronic Renal Failure Metabolic Acidosis LV Diastolic Dysfunction Atrial Fibrillation CAD +Troponins likely Demand Ischemia PAD Hyperlipidemia HTN - continue antibiotics per ID - trend LFTs - monitor urine output, creatinine - rate control - continue anticoagulation - minimize sedation to assess mental status , rifaxamin and lactulose for any component of HE - spontaneous breathing trials as tolerated, but no mental status to protect airway - DVT/GI prophylaxis - continue discussions regarding goals of care: Compassionate extubation versus Tracheostomy - palliative care involved - continue ICU monitoring - grave overall prognosis, MM with poor mental status, renal failure, resp failure Sal[facility] [id number] 35min CCT
[2018-02-25] MEDS: METOPROLOL TARTRATE 50 MG TABLET (FP) PO SCH ×2 (09:01→22:23)
[2018-02-25] MEDS: THIAMINE HCL 100 MG TABLET (FP) PO SCH (09:01)
--- NOTE | 2018-02-25 09:01 | PN ---
Progress Note (short form) - Note Progress Note: Renal follow up for Hypercalcemia/MELITA Pt seen and examined in the ICU on the Vent no overnight events no diarrhea overnight Vital Signs Temperature 99.8 F H 02/25/18 06:00 Pulse Rate 116 H 02/25/18 08:20 Respiratory Rate 18 02/25/18 08:20 Blood Pressure 115/59 L 02/25/18 08:00 O2 Sat by Pulse Oximetry (%) 98 02/25/18 08:20 Intake & Output 02/22/18 02/23/18 02/24/18 02/25/18 23:59 23:59 23:59 23:59 Intake Total 6486 254 7413 100 Output Total 650 1700 1600 300 Balance 640 -790 1180 -200 Weight 80.938 kg 80.541 kg 80.541 kg 80.921 kg CBC, BMP 02/25/18 05:30 02/24/18 14:40 Current Medications Acetaminophen (Tylenol -) 650 mg PO Q6H PRN PRN Reason: PAIN LEVEL 1 - 3 Last Admin: 02/23/18 16:25 Dose: 650 mg Acetaminophen (Tylenol Suppository -) 650 mg RC Q6H PRN PRN Reason: FEVER Allopurinol (Zyloprim -) 100 mg PO BID [facility] Last Admin: 02/24/18 21:45 Dose: 100 mg Chlorhexidine Gluconate (Peridex -) 15 ml MM BID [facility] Last Admin: 02/24/18 21:44 Dose: 15 ml Cholecalciferol (Vitamin D3 -) 1,000 unit PO DAILY [facility] Diphenhydramine HCl (Benadryl Injection -) 25 mg IVPB ONCE PRN PRN Reason: DURING PLASMAPHERESIS Heparin Sodium (Porcine) (Heparin -) 1,000 unit IVPUSH PRN PRN PRN Reason: Heparin Heparin Sodium (Porcine) (Heparin -) 5,000 unit IVPUSH PRN PRN PRN Reason: Heparin Ceftazidime 1 gm/ Dextrose 50 mls @ 200 mls/hr IVPB DAILY [facility]; Protocol Last Admin: 02/24/18 09:13 Dose: 200 mls/hr Sodium Bicarbonate 75 meq/ (Sodium Chloride) 1,075 mls @ 100 mls/hr IV Q10H [facility] Last Admin: 02/25/18 05:55 Dose: Not Given Metronidazole (Flagyl 500mg Premixed Ivpb -) 500 mg in 100 mls @ 100 mls/hr IVPB BID [facility] Last Admin: 02/24/18 21:43 Dose: 100 mls/hr Lactulose (Cephulac (Oral Use)) 20 gm PO TID [facility] Last Admin: 02/25/18 05:57 Dose: 20 gm Metoprolol Tartrate (Lopressor Injection -) 5 mg IVPUSH Q8H PRN PRN Reason: TACHYCARDIA Metoprolol Tartrate (Lopressor -) 75 mg PO BID [facility] Last Admin: 02/24/18 21:44 Dose: 75 mg Pantoprazole Sodium (Protonix Iv) 40 mg IVPUSH DAILY [facility] Last Admin: 02/24/18 09:13 Dose: 40 mg Rifaximin (Xifaxan -) 550 mg PO BID [facility] Last Admin: 02/24/18 21:44 Dose: 550 mg Thiamine HCl (Vitamin B1 -) 100 mg PO DAILY [facility] Last Admin: 02/24/18 09:13 Dose: 100 mg 77 year old gentleman with hx of CKD, Afib on A/C, CAD, CKD, Hypertension, Hyperlipidemia, PVD who presented with AMS/Confusion and found to have MELITA. #MELITA ATN vs. 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 tubular injury, US showed no stones or obstruction, UA w/o protein but UPCR ~0.5 indicating non- albumin proteinuria) #AMS #Newly diagnosed multiple myloma #Anemia #Hypercalcemia of Malignancy (PTH is low) #Hyperdense lesion on US of the kidney #Normal anion gap metabolic acidosis #Hyperkalemia (r/o tumor lysis) Mack Miller DO
[2018-02-25] MEDS: ALLOPURINOL 100 MG TABLET (FP) PO SCH ×2 (09:02→22:24)
[2018-02-25] MEDS: CHOLECALCIFEROL (VITAMIN D3) 1,000 UNIT TABLET (FP) PO SCH (09:02)
--- NOTE | 2018-02-25 09:09 | PN ---
Progress Note, Physician Chief Complaint: Altered mental status History of Present Illness: Pt unable to report - Current Medication List Current Medications: Active Medications Acetaminophen (Tylenol -) 650 mg PO Q6H PRN PRN Reason: PAIN LEVEL 1 - 3 Last Admin: 02/23/18 16:25 Dose: 650 mg Acetaminophen (Tylenol Suppository -) 650 mg RC Q6H PRN PRN Reason: FEVER Allopurinol (Zyloprim -) 100 mg PO BID [facility] Last Admin: 02/24/18 21:45 Dose: 100 mg Chlorhexidine Gluconate (Peridex -) 15 ml MM BID [facility] Last Admin: 02/24/18 21:44 Dose: 15 ml Cholecalciferol (Vitamin D3 -) 1,000 unit PO DAILY [facility] Diphenhydramine HCl (Benadryl Injection -) 25 mg IVPB ONCE PRN PRN Reason: DURING PLASMAPHERESIS Heparin Sodium (Porcine) (Heparin -) 1,000 unit IVPUSH PRN PRN PRN Reason: Heparin Heparin Sodium (Porcine) (Heparin -) 5,000 unit IVPUSH PRN PRN PRN Reason: Heparin Ceftazidime 1 gm/ Dextrose 50 mls @ 200 mls/hr IVPB DAILY [facility]; Protocol Last Admin: 02/24/18 09:13 Dose: 200 mls/hr Sodium Bicarbonate 75 meq/ (Sodium Chloride) 1,075 mls @ 100 mls/hr IV Q10H [facility] Last Admin: 02/25/18 05:55 Dose: Not Given Metronidazole (Flagyl 500mg Premixed Ivpb -) 500 mg in 100 mls @ 100 mls/hr IVPB BID [facility] Last Admin: 02/24/18 21:43 Dose: 100 mls/hr Lactulose (Cephulac (Oral Use)) 20 gm PO TID [facility] Last Admin: 02/25/18 05:57 Dose: 20 gm Metoprolol Tartrate (Lopressor Injection -) 5 mg IVPUSH Q8H PRN PRN Reason: TACHYCARDIA Metoprolol Tartrate (Lopressor -) 75 mg PO BID [facility] Last Admin: 02/24/18 21:44 Dose: 75 mg Pantoprazole Sodium (Protonix Iv) 40 mg IVPUSH DAILY [facility] Last Admin: 02/24/18 09:13 Dose: 40 mg Rifaximin (Xifaxan -) 550 mg PO BID [facility] Last Admin: 02/24/18 21:44 Dose: 550 mg Thiamine HCl (Vitamin B1 -) 100 mg PO DAILY [facility] Last Admin: 02/24/18 09:13 Dose: 100 mg - Objective Vital Signs: Vital Signs Temperature 99.8 F H 02/25/18 06:00 Pulse Rate 116 H 02/25/18 08:20 Respiratory Rate 18 02/25/18 08:20 Blood Pressure 115/59 L 02/25/18 08:00 O2 Sat by Pulse Oximetry (%) 98 02/25/18 08:20 Cardiovascular: Yes: Regular Rate and Rhythm Respiratory: Yes: Intubated, Mechanically Ventilated Gastrointestinal: Yes: Soft. No: Palpable Mass Edema: No Labs: CBC, BMP 02/25/18 05:30 02/24/18 14:40 INR, PTT INR 1.28 (0.83-1.09) H 02/22/18 05:30 Fibrinogen 290.0 mg/dL (238-498) 02/18/18 06:00 Problem List - Problems (1) Multiple myeloma Assessment/Plan: 77M with CAD, CKD , Afib on CAC, PVD admitted with altered mental status and found to have anemia, worsening of renal function and hypercalcemia. Found to have IgG kappa myeloma. S/p plasmapheresis and 5 days of dex with no improvement in mental status. Responded well to PRBC transfusion yesterday Ongoing GOC discussions Code(s): C90.00 - MULTIPLE MYELOMA NOT HAVING ACHIEVED REMISSION Qualifiers: Multiple myeloma remission status: not in remission Qualified Code(s): C90.00 - Multiple myeloma not having achieved remission
[2018-02-25] MEDS: PANTOPRAZOLE SODIUM 40 MG VIAL IVPUSH SCH (09:15)
[2018-02-25] MEDS: CHLORHEXIDINE GLUCONATE 0.12% 15ML CUP MM SCH ×2 (09:20→22:23)
[2018-02-25] MEDS: CEFTAZIDIME PENTAHYDRATE 1 GM in DEXTROSE 5%-WATER - 50 ML IVPB SCH (10:25)
--- NOTE | 2018-02-25 10:31 | PN ---
Progress Note (short form) - Note Progress Note: unresponsive intubated Vital Signs Period Temp Pulse Resp BP Sys/Ariza Pulse Ox Last 24 Hr 97.8 F-100.4 F 98-120 14-19 100-119/59-81 98-100 cor-rrr lungs decreased bs at bases abd soft,nt ext no edema CBC, BMP 02/25/18 05:30 02/24/18 14:40 Microbiology 02/21/18 09:58 Blood - Peripheral Venous Blood Culture - Preliminary NO GROWTH OBTAINED AFTER 96 HOURS, INCUBATION TO CONTINUE FOR 1 DAYS. 02/21/18 09:50 Blood - Peripheral Venous Blood Culture - Preliminary NO GROWTH OBTAINED AFTER 96 HOURS, INCUBATION TO CONTINUE FOR 1 DAYS. 02/21/18 12:00 Sputum - Endotrachea Suction/Ventilator Gram Stain - Final 02/21/18 12:00 Sputum - Endotrachea Suction/Ventilator Sputum Culture - Preliminary Gram Negative Babatunde Non Lactose Fermenting Gnb 02/17/18 15:00 Blood - Peripheral Venous Blood Culture - Final NO GROWTH AFTER 5 DAYS INCUBATION 02/17/18 14:00 Blood - Central Line Blood Culture - Final NO GROWTH AFTER 5 DAYS INCUBATION 02/21/18 11:20 Urine - Urine Brenner Urine Culture - Final NO GROWTH OBTAINED 02/13/18 14:30 Sputum - Endotrachea Suction/Ventilator Gram Stain - Final 02/13/18 14:30 Sputum - Endotrachea Suction/Ventilator Sputum Culture - Final Stenotrophomon.(X.)Maltophilia 02/12/18 19:45 Blood - Peripheral Venous Blood Culture - Final NO GROWTH AFTER 5 DAYS INCUBATION 02/12/18 19:20 Blood - Peripheral Venous Blood Culture - Final NO GROWTH AFTER 5 DAYS INCUBATION 02/13/18 14:30 Urine - Urine Brenner Legionella Antigen - Final 02/13/18 14:30 Urine - Urine Brenner Streptococcus pneumoniae Antigen (M - Final 02/06/18 17:02 Blood - Peripheral Venous Blood Culture - Final NO GROWTH AFTER 5 DAYS INCUBATION 02/06/18 17:02 Blood - Peripheral Venous Blood Culture - Final NO GROWTH AFTER 5 DAYS INCUBATION 02/06/18 17:02 Urine - Urine - Catheterized Urine Culture - Final NO GROWTH OBTAINED 02/07/18 19:15 Nasopharyngeal Swab Influenza Types A,B Antigen - Final 02/07/18 19:15 Nasopharyngeal Swab - Final lfts improved cxray unchanged blood cultures negative 02/21 a/ respiratory failure-remains intubated RLL pneumonia acalculous cholycystitis renal failure multiple myeloma hyperviscosity syndrome continue fortaz/flagyl overall poor mental status family meetings in progress
--- NOTE | 2018-02-25 10:56 | PN ---
Progress Note, Physician Chief Complaint: INTUBATED ON VENT SUPPORT SEDATED - Current Medication List Current Medications: Active Medications Acetaminophen (Tylenol -) 650 mg PO Q6H PRN PRN Reason: PAIN LEVEL 1 - 3 Last Admin: 02/23/18 16:25 Dose: 650 mg Acetaminophen (Tylenol Suppository -) 650 mg RC Q6H PRN PRN Reason: FEVER Allopurinol (Zyloprim -) 100 mg PO BID [facility] Last Admin: 02/25/18 09:02 Dose: 100 mg Chlorhexidine Gluconate (Peridex -) 15 ml MM BID [facility] Last Admin: 02/24/18 21:44 Dose: 15 ml Cholecalciferol (Vitamin D3 -) 1,000 unit PO DAILY [facility] Last Admin: 02/25/18 09:02 Dose: 1,000 unit Diphenhydramine HCl (Benadryl Injection -) 25 mg IVPB ONCE PRN PRN Reason: DURING PLASMAPHERESIS Heparin Sodium (Porcine) (Heparin -) 1,000 unit IVPUSH PRN PRN PRN Reason: Heparin Heparin Sodium (Porcine) (Heparin -) 5,000 unit IVPUSH PRN PRN PRN Reason: Heparin Ceftazidime 1 gm/ Dextrose 50 mls @ 200 mls/hr IVPB DAILY [facility]; Protocol Last Admin: 02/24/18 09:13 Dose: 200 mls/hr Sodium Bicarbonate 75 meq/ (Sodium Chloride) 1,075 mls @ 100 mls/hr IV Q10H [facility] Last Admin: 02/25/18 05:55 Dose: Not Given Metronidazole (Flagyl 500mg Premixed Ivpb -) 500 mg in 100 mls @ 100 mls/hr IVPB BID [facility] Last Admin: 02/25/18 09:00 Dose: 100 mls/hr Lactulose (Cephulac (Oral Use)) 20 gm PO TID [facility] Last Admin: 02/25/18 05:57 Dose: 20 gm Metoprolol Tartrate (Lopressor Injection -) 5 mg IVPUSH Q8H PRN PRN Reason: TACHYCARDIA Metoprolol Tartrate (Lopressor -) 75 mg PO BID [facility] Last Admin: 02/25/18 09:01 Dose: 75 mg Pantoprazole Sodium (Protonix Iv) 40 mg IVPUSH DAILY [facility] Last Admin: 02/24/18 09:13 Dose: 40 mg Rifaximin (Xifaxan -) 550 mg PO BID [facility] Last Admin: 02/24/18 21:44 Dose: 550 mg Thiamine HCl (Vitamin B1 -) 100 mg PO DAILY [facility] Last Admin: 02/25/18 09:01 Dose: 100 mg - Objective Vital Signs: Vital Signs Temperature 99.8 F H 02/25/18 06:00 Pulse Rate 116 H 02/25/18 08:20 Respiratory Rate 18 02/25/18 08:20 Blood Pressure 115/59 L 02/25/18 08:00 O2 Sat by Pulse Oximetry (%) 98 02/25/18 08:20 Constitutional: Yes: Other Cardiovascular: Yes: Tachycardia Respiratory: Yes: Mechanically Ventilated Gastrointestinal: Yes: Soft Genitourinary: Yes: Brenner Present Musculoskeletal: Yes: Muscle Weakness Integumentary: Yes: Other Wound/Incision: Yes: Dressing Dry and Intact Neurological: Yes: Confusion, Unresponsive Labs: CBC, BMP 02/25/18 05:30 02/24/18 14:40 INR, PTT INR 1.28 (0.83-1.09) H 02/22/18 05:30 Fibrinogen 290.0 mg/dL (238-498) 02/18/18 06:00 Problem List - Problems (1) MELITA (acute kidney injury) Code(s): N17.9 - ACUTE KIDNEY FAILURE, UNSPECIFIED (2) Atrial fibrillation with RVR Code(s): I48.91 - UNSPECIFIED ATRIAL FIBRILLATION (3) Hyperlipidemia Code(s): E78.5 - HYPERLIPIDEMIA, UNSPECIFIED Qualifiers: Hyperlipidemia type: pure hypercholesterolemia Qualified Code(s): E78.00 - Pure hypercholesterolemia, unspecified; E78.0 - Pure hypercholesterolemia (4) Hypothermia Code(s): T68.XXXA - HYPOTHERMIA, INITIAL ENCOUNTER Qualifiers: Encounter type: initial encounter Qualified Code(s): T68.XXXA - Hypothermia , initial encounter (5) Mugvk-gf-lsoinln kidney injury Code(s): N17.9 - ACUTE KIDNEY FAILURE, UNSPECIFIED; N18.9 - CHRONIC KIDNEY DISEASE, UNSPECIFIED Qualifiers: Acute renal failure type: unspecified Chronic kidney disease stage: unspecified stage Qualified Code(s): N17.9 - Acute kidney failure, unspecified ; N18.9 - Chronic kidney disease, unspecified (6) Generalized weakness Code(s): R53.1 - WEAKNESS (7) History of ETOH abuse Code(s): Z87.898 - PERSONAL HISTORY OF OTHER SPECIFIED CONDITIONS (8) Hypercalcemia Code(s): E83.52 - HYPERCALCEMIA (9) Hypertrophic cardiomyopathy Code(s): I42.2 - OTHER HYPERTROPHIC CARDIOMYOPATHY (10) Toxic metabolic encephalopathy Code(s): G92 - TOXIC ENCEPHALOPATHY (11) Sepsis Code(s): A41.9 - SEPSIS, UNSPECIFIED ORGANISM (12) Respiratory failure Code(s): J96.90 - RESPIRATORY FAILURE, UNSP, UNSP W HYPOXIA OR HYPERCAPNIA Assessment/Plan RESP FAILURE INUBATED AWAITING FAMILY DECISION FOR ADVANCED DIRECTIVE. WILL NEED TRACHEOSOTOMY? PULM F/U WEAN OFF TOLERATED IV ABX PER ID MONITOR CARDIAC FUNCTION HEPARIN IV NEURO EVAL
[2018-02-25] MEDS ORDERED: PT OWN MED DRAWER 7, Y5N ONE ×2 (11:31→16:39)
[2018-02-25] MEDS: RIFAXIMIN 550 MG TABLET (UD) PO SCH ×2 (16:48→22:24)
[2018-02-25 18:55] LABS: ANION GAP 5 MMOL/L (8-16); BLOOD UREA NITROGEN 102 mg/dL (7-18); CHLORIDE 124 mmol/L (98-107); CO2 23 mmol/L (21-32); CREATININE 2.7 mg/dL (0.55-1.3); GLUCOSE,RANDOM 88 mg/dL (74-106); POTASSIUM 5.2 mmol/L (3.5-5.1); SODIUM 151 mmol/L (136-145)
[2018-02-25] MEDS ORDERED: DEXTROSE 50%-WATER - 25 GM/50 ML VIAL IVPUSH ONE (21:20)
[2018-02-25] MEDS ORDERED: INSULIN REGULAR HUMAN 100 UNITS/ML *VIAL IVPUSH ONE (21:20)
[2018-02-25] MEDS ORDERED: SODIUM POLYSTYRENE SULFONATE 15 GM/60 ML BOTTLE NGT ONE ×2 (21:22)
[2018-02-25] MEDS ORDERED: DEXTROSE 50%-WATER 25 GM/50 ML DISP.SYRIN ONE (22:04)
[2018-02-26] MEDS: SODIUM BICARBONATE 8.4% - 75 MEQ in SODIUM CHLORIDE 0.45% 1,000 ML IV SCH ×2 (01:15→14:05)
[2018-02-26] MEDS: LACTULOSE 20 GM/30 ML UDC (FOR ORAL USE ONLY) PO SCH ×3 (05:54→21:23)
[2018-02-26 06:16] LABS: HEMOGLOBIN 7.9 GM/dL (11.7-16.9); MCH 29.5 pg (25.7-33.7); MCHC 32.7 g/dl (32.0-35.9); MEAN CELL VOLUME 90.3 fl (80-96); PLATELET COUNT 195 K/MM3 (134-434); RBC 2.66 M/mm3 (4.00-5.60); RDW 16.1 % (11.9-15.9); WHITE BLOOD COUNT 5.3 K/mm3 (4.0-10.0)
[2018-02-26 07:11] LABS: ARTERIAL BLD GAS O2 SATURATION 96.1 % (90-98.9); ARTERIAL BLOOD GAS BASE EXCESS 2.3 meq/l (-2-2); ARTERIAL BLOOD GAS PCO2 29.3 mmHg (35-45); ARTERIAL BLOOD GAS PO2 80.2 mmHg (70-100); ARTERIAL BLOOD GAS pH 7.53 (7.35-7.45)
[2018-02-26 07:23] LABS: ALBUMIN 1.3 g/dl (3.4-5.0); ALK PHOS 84 U/L (45-117); ANION GAP 5 MMOL/L (8-16); BILIRUBIN,TOTAL 0.6 mg/dL (0.2-1); BLOOD UREA NITROGEN 99 mg/dL (7-18); CHLORIDE 124 mmol/L (98-107); CO2 25 mmol/L (21-32); CREATININE 2.5 mg/dL (0.55-1.3); GLUCOSE,RANDOM 85 mg/dL (74-106); PHOSPHOROUS 3.7 mg/dL (2.5-4.9); POTASSIUM 5.1 mmol/L (3.5-5.1); SGOT/AST 52 U/L (15-37); SGPT/ALT 180 U/L (13-61); SODIUM 153 mmol/L (136-145); TOT PROT 9.4 g/dl (6.4-8.2)
[2018-02-26 08:59] LABS: CALCIUM 6.1 mg/dL (8.5-10.1)
[2018-02-26] MEDS: CEFTAZIDIME PENTAHYDRATE 1 GM in DEXTROSE 5%-WATER - 50 ML IVPB SCH (10:00)
[2018-02-26] MEDS: PANTOPRAZOLE SODIUM 40 MG VIAL IVPUSH SCH (10:10)
[2018-02-26] MEDS: RIFAXIMIN 550 MG TABLET (UD) PO SCH ×2 (10:10→21:24)
[2018-02-26] MEDS: ALLOPURINOL 100 MG TABLET (FP) PO SCH ×2 (10:10→21:24)
[2018-02-26] MEDS: METOPROLOL TARTRATE 50 MG TABLET (FP) PO SCH ×2 (10:10→21:23)
[2018-02-26] MEDS: CHOLECALCIFEROL (VITAMIN D3) 1,000 UNIT TABLET (FP) PO SCH (10:10)
[2018-02-26] MEDS: CHLORHEXIDINE GLUCONATE 0.12% 15ML CUP MM SCH ×2 (10:11→21:23)
[2018-02-26] MEDS: THIAMINE HCL 100 MG TABLET (FP) PO SCH (10:11)
--- NOTE | 2018-02-26 10:29 | PN ---
Progress Note, Physician Chief Complaint: patient intubated sedated - Current Medication List Current Medications: Active Medications Acetaminophen (Tylenol -) 650 mg PO Q6H PRN PRN Reason: PAIN LEVEL 1 - 3 Last Admin: 02/23/18 16:25 Dose: 650 mg Acetaminophen (Tylenol Suppository -) 650 mg RC Q6H PRN PRN Reason: FEVER Allopurinol (Zyloprim -) 100 mg PO BID [facility] Last Admin: 02/26/18 10:10 Dose: 100 mg Chlorhexidine Gluconate (Peridex -) 15 ml MM BID [facility] Last Admin: 02/26/18 10:11 Dose: 15 ml Cholecalciferol (Vitamin D3 -) 1,000 unit PO DAILY [facility] Last Admin: 02/26/18 10:10 Dose: 1,000 unit Diphenhydramine HCl (Benadryl Injection -) 25 mg IVPB ONCE PRN PRN Reason: DURING PLASMAPHERESIS Heparin Sodium (Porcine) (Heparin -) 1,000 unit IVPUSH PRN PRN PRN Reason: Heparin Heparin Sodium (Porcine) (Heparin -) 5,000 unit IVPUSH PRN PRN PRN Reason: Heparin Ceftazidime 1 gm/ Dextrose 50 mls @ 200 mls/hr IVPB DAILY [facility]; Protocol Last Admin: 02/25/18 10:25 Dose: 200 mls/hr Sodium Bicarbonate 75 meq/ (Sodium Chloride) 1,075 mls @ 100 mls/hr IV Q10H [facility] Last Admin: 02/26/18 01:15 Dose: Not Given Metronidazole (Flagyl 500mg Premixed Ivpb -) 500 mg in 100 mls @ 100 mls/hr IVPB BID [facility] Last Admin: 02/26/18 10:10 Dose: 100 mls/hr Lactulose (Cephulac (Oral Use)) 20 gm PO TID [facility] Last Admin: 02/26/18 05:54 Dose: 20 gm Metoprolol Tartrate (Lopressor Injection -) 5 mg IVPUSH Q8H PRN PRN Reason: TACHYCARDIA Metoprolol Tartrate (Lopressor -) 75 mg PO BID [facility] Last Admin: 02/26/18 10:10 Dose: 75 mg Pantoprazole Sodium (Protonix Iv) 40 mg IVPUSH DAILY [facility] Last Admin: 02/26/18 10:10 Dose: 40 mg Rifaximin (Xifaxan -) 550 mg PO BID [facility] Last Admin: 02/26/18 10:10 Dose: 550 mg Thiamine HCl (Vitamin B1 -) 100 mg PO DAILY [facility] Last Admin: 02/26/18 10:11 Dose: 100 mg - Objective Vital Signs: Vital Signs Temperature 100 F H 02/26/18 05:55 Pulse Rate 123 H 02/26/18 08:50 Respiratory Rate 16 02/26/18 08:50 Blood Pressure 111/71 02/26/18 08:00 O2 Sat by Pulse Oximetry (%) 98 02/26/18 08:50 Constitutional: Yes: Calm Cardiovascular: Yes: Regular Rate and Rhythm, S1, S2 Respiratory: Yes: Mechanically Ventilated Gastrointestinal: Yes: Normal Bowel Sounds, Soft Labs: CBC, BMP 02/26/18 05:30 02/26/18 05:30 INR, PTT INR 1.28 (0.83-1.09) H 02/22/18 05:30 Fibrinogen 290.0 mg/dL (238-498) 02/18/18 06:00 Problem List - Problems (1) Elevated LFTs Assessment/Plan: ultrasound of liver noted suggestive of acalculous cholecystitis, will get GI consult- noted lft trending down regarding acalculous cholecystits possible iR evaluation for cholecystostomy decopmression currently awaitng family decision regards goals of care Code(s): R94.5 - ABNORMAL RESULTS OF LIVER FUNCTION STUDIES (2) MELITA (acute kidney injury) Assessment/Plan: bun/cr is better from 2.8 to 2.ivf serum bicarb is now 22 corrected calcium Code(s): N17.9 - ACUTE KIDNEY FAILURE, UNSPECIFIED (3) Atrial fibrillation with RVR Assessment/Plan: heparin drip alarm security or surveillance monitor rate control with metoprolol (4) Respiratory failure Assessment/Plan: intubated propofol/fentanyl aviating family decision regarding goals of care possible compassionate weaning vs tracheostomy Code(s): J96.90 - RESPIRATORY FAILURE, UNSP, UNSP W HYPOXIA OR HYPERCAPNIA (5) Toxic metabolic encephalopathy Assessment/Plan: Microbiology 02/21/18 11:20 Urine - Urine Brenner Urine Culture - Final NO GROWTH OBTAINED 02/13/18 14:30 Urine - Urine Brenner Legionella Antigen - Final 02/13/18 14:30 Urine - Urine Brenner Streptococcus pneumoniae Antigen (M - Final 02/13/18 14:30 Sputum - Endotrachea Suction/Ventilator Gram Stain - Final 02/13/18 14:30 Sputum - Endotrachea Suction/Ventilator Sputum Culture - Final Stenotrophomon.(X.)Maltophilia 02/21/18 09:58 Blood - Peripheral Venous Blood Culture - Preliminary NO GROWTH OBTAINED AFTER 24 HOURS, INCUBATION TO CONTINUE FOR 4 DAYS. 02/21/18 09:50 Blood - Peripheral Venous Blood Culture - Preliminary NO GROWTH OBTAINED AFTER 24 HOURS, INCUBATION TO CONTINUE FOR 4 DAYS. 02/17/18 15:00 Blood - Peripheral Venous Blood Culture - Preliminary NO GROWTH OBTAINED AFTER 96 HOURS, INCUBATION TO CONTINUE FOR 1 DAYS. 02/17/18 14:00 Blood - Central Line Blood Culture - Preliminary NO GROWTH OBTAINED AFTER 96 HOURS, INCUBATION TO CONTINUE FOR 1 DAYS. afebrile normal WBC repeat cultures as above on ceftazidime - and flagly temp 101 Code(s): G92 - TOXIC ENCEPHALOPATHY (6) Altered mental status Assessment/Plan: maybe secondary to toxic metabolic encephalopathy neurology consult appreciated on lactulose TID still persistently elevated Nh3 level on steroid as well dexamethasone - no improvement in mental status s/p plasmapheresis dvt ppx lovenox Code(s): R41.82 - ALTERED MENTAL STATUS, UNSPECIFIED
--- NOTE | 2018-02-26 11:11 | PN ---
Progress Note (short form) - Note Progress Note: Renal follow up for Hypercalcemia/MELITA Pt seen and examined in the ICU on the vent, no overnight events Vital Signs Temperature 100 F H 02/26/18 05:55 Pulse Rate 123 H 02/26/18 08:50 Respiratory Rate 16 02/26/18 08:50 Blood Pressure 111/71 02/26/18 08:00 O2 Sat by Pulse Oximetry (%) 98 02/26/18 08:50 Intake & Output 02/23/18 02/24/18 02/25/18 02/26/18 23:59 23:59 23:59 23:59 Intake Total 910 2780 1300 1200 Output Total 1700 1600 1800 300 Balance -790 1180 -500 900 Weight 80.541 kg 80.541 kg 80.921 kg 81.737 kg NAD on vent via ET tube Dec BS no LE edema CBC, BMP 02/26/18 05:30 02/26/18 05:30 Laboratory Tests 02/24/18 02/26/18 14:40 05:30 Creat Clearance w eGFR 22.91 Calcium 6.3 L* 6.1 L* Phosphorus 3.7 Magnesium 3.0 H Albumin 1.3 L Current Medications Acetaminophen (Tylenol -) 650 mg PO Q6H PRN PRN Reason: PAIN LEVEL 1 - 3 Last Admin: 02/23/18 16:25 Dose: 650 mg Acetaminophen (Tylenol Suppository -) 650 mg RC Q6H PRN PRN Reason: FEVER Allopurinol (Zyloprim -) 100 mg PO BID [facility] Last Admin: 02/26/18 10:10 Dose: 100 mg Chlorhexidine Gluconate (Peridex -) 15 ml MM BID [facility] Last Admin: 02/26/18 10:11 Dose: 15 ml Cholecalciferol (Vitamin D3 -) 1,000 unit PO DAILY [facility] Last Admin: 02/26/18 10:10 Dose: 1,000 unit Diphenhydramine HCl (Benadryl Injection -) 25 mg IVPB ONCE PRN PRN Reason: DURING PLASMAPHERESIS Heparin Sodium (Porcine) (Heparin -) 1,000 unit IVPUSH PRN PRN PRN Reason: Heparin Heparin Sodium (Porcine) (Heparin -) 5,000 unit IVPUSH PRN PRN PRN Reason: Heparin Ceftazidime 1 gm/ Dextrose 50 mls @ 200 mls/hr IVPB DAILY [facility]; Protocol Last Admin: 02/25/18 10:25 Dose: 200 mls/hr Sodium Bicarbonate 75 meq/ (Sodium Chloride) 1,075 mls @ 100 mls/hr IV Q10H [facility] Last Admin: 02/26/18 01:15 Dose: Not Given Metronidazole (Flagyl 500mg Premixed Ivpb -) 500 mg in 100 mls @ 100 mls/hr IVPB BID [facility] Last Admin: 02/26/18 10:10 Dose: 100 mls/hr Lactulose (Cephulac (Oral Use)) 20 gm PO TID [facility] Last Admin: 02/26/18 05:54 Dose: 20 gm Metoprolol Tartrate (Lopressor Injection -) 5 mg IVPUSH Q8H PRN PRN Reason: TACHYCARDIA Metoprolol Tartrate (Lopressor -) 75 mg PO BID [facility] Last Admin: 02/26/18 10:10 Dose: 75 mg Pantoprazole Sodium (Protonix Iv) 40 mg IVPUSH DAILY [facility] Last Admin: 02/26/18 10:10 Dose: 40 mg Rifaximin (Xifaxan -) 550 mg PO BID [facility] Last Admin: 02/26/18 10:10 Dose: 550 mg Thiamine HCl (Vitamin B1 -) 100 mg PO DAILY [facility] Last Admin: 02/26/18 10:11 Dose: 100 mg 77 year old gentleman with hx of CKD, Afib on A/C, CAD, CKD, Hypertension, Hyperlipidemia, PVD who presented with AMS/Confusion and found to have MELITA. #MELITA ATN vs. 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 tubular injury, US showed no stones or obstruction, UA w/o protein but UPCR ~0.5 indicating non- albumin proteinuria) #AMS #Newly diagnosed multiple myloma #Anemia #Hypercalcemia of Malignancy (PTH is low) #Hyperdense lesion on US of the kidney #Normal anion gap metabolic acidosis #Hyperkalemia (r/o tumor lysis) Renal function stable at this time pt is non-oliguric serum K is improved, will d/c bicarb gtt start hypotonic saline with dextrose Trend Ca supportive care tube fees as per ICU Prognosis is poor Mack Miller DO
[2018-02-26] MEDS ORDERED: PT OWN MED DRAWER 7, Y5N ONE (11:16)
--- NOTE | 2018-02-26 11:28 | PN ---
Progress Note, Physician History of Present Illness: Poorly responsive on vent, persistent afib on lopressor and heparin gtt. - Current Medication List Current Medications: Active Medications Acetaminophen (Tylenol -) 650 mg PO Q6H PRN PRN Reason: PAIN LEVEL 1 - 3 Last Admin: 02/23/18 16:25 Dose: 650 mg Acetaminophen (Tylenol Suppository -) 650 mg RC Q6H PRN PRN Reason: FEVER Allopurinol (Zyloprim -) 100 mg PO BID [facility] Last Admin: 02/26/18 10:10 Dose: 100 mg Chlorhexidine Gluconate (Peridex -) 15 ml MM BID [facility] Last Admin: 02/26/18 10:11 Dose: 15 ml Cholecalciferol (Vitamin D3 -) 1,000 unit PO DAILY [facility] Last Admin: 02/26/18 10:10 Dose: 1,000 unit Diphenhydramine HCl (Benadryl Injection -) 25 mg IVPB ONCE PRN PRN Reason: DURING PLASMAPHERESIS Heparin Sodium (Porcine) (Heparin -) 1,000 unit IVPUSH PRN PRN PRN Reason: Heparin Heparin Sodium (Porcine) (Heparin -) 5,000 unit IVPUSH PRN PRN PRN Reason: Heparin Ceftazidime 1 gm/ Dextrose 50 mls @ 200 mls/hr IVPB DAILY [facility]; Protocol Last Admin: 02/25/18 10:25 Dose: 200 mls/hr Sodium Bicarbonate 75 meq/ (Sodium Chloride) 1,075 mls @ 100 mls/hr IV Q10H [facility] Last Admin: 02/26/18 01:15 Dose: Not Given Metronidazole (Flagyl 500mg Premixed Ivpb -) 500 mg in 100 mls @ 100 mls/hr IVPB BID [facility] Last Admin: 02/26/18 10:10 Dose: 100 mls/hr Lactulose (Cephulac (Oral Use)) 20 gm PO TID [facility] Last Admin: 02/26/18 05:54 Dose: 20 gm Metoprolol Tartrate (Lopressor Injection -) 5 mg IVPUSH Q8H PRN PRN Reason: TACHYCARDIA Metoprolol Tartrate (Lopressor -) 75 mg PO BID [facility] Last Admin: 02/26/18 10:10 Dose: 75 mg Pantoprazole Sodium (Protonix Iv) 40 mg IVPUSH DAILY [facility] Last Admin: 02/26/18 10:10 Dose: 40 mg Rifaximin (Xifaxan -) 550 mg PO BID [facility] Last Admin: 02/26/18 10:10 Dose: 550 mg Thiamine HCl (Vitamin B1 -) 100 mg PO DAILY [facility] Last Admin: 02/26/18 10:11 Dose: 100 mg - Objective Vital Signs: Vital Signs Temperature 101.1 F H 02/26/18 10:00 Pulse Rate 101 H 02/26/18 10:00 Respiratory Rate 14 02/26/18 10:00 Blood Pressure 114/77 02/26/18 10:00 O2 Sat by Pulse Oximetry (%) 98 02/26/18 10:00 Constitutional: Yes: No Distress, Calm Neck: Yes: Supple Cardiovascular: Yes: Pulse Irregular Respiratory: Yes: Intubated, Mechanically Ventilated Gastrointestinal: Yes: Normal Bowel Sounds, Soft Edema: No Labs: CBC, BMP 02/26/18 05:30 02/26/18 05:30 INR, PTT INR 1.28 (0.83-1.09) H 02/22/18 05:30 Fibrinogen 290.0 mg/dL (238-498) 02/18/18 06:00 - ....Imaging EKG: Report Reviewed (Tele: Afib) Problem List - Problems (1) Atrial fibrillation with RVR Code(s): I48.91 - UNSPECIFIED ATRIAL FIBRILLATION (2) [id number]-[id number] kidney injury Code(s): N17.9 - ACUTE KIDNEY FAILURE, UNSPECIFIED; N18.9 - CHRONIC KIDNEY DISEASE, UNSPECIFIED Qualifiers: Acute renal failure type: unspecified Chronic kidney disease stage: unspecified stage Qualified Code(s): N17.9 - Acute kidney failure, unspecified ; N18.9 - Chronic kidney disease, unspecified (3) Demand ischemia Code(s): I24.8 - OTHER FORMS OF ACUTE ISCHEMIC HEART DISEASE (4) Hypercalcemia Code(s): E83.52 - HYPERCALCEMIA (5) Nonadherence to medication Code(s): Z91.14 - PATIENT'S OTHER NONCOMPLIANCE WITH MEDICATION REGIMEN (6) Paraproteinemia Code(s): D89.2 - HYPERGAMMAGLOBULINEMIA, UNSPECIFIED (7) Anticoagulant long-term use Code(s): Z79.01 - FDC (CURRENT) USE OF ANTICOAGULANTS (8) Chronic thromboembolic disease Code(s): I74.9 - EMBOLISM AND THROMBOSIS OF UNSPECIFIED ARTERY (9) Coronary artery disease Code(s): I25.10 - ATHSCL HEART DISEASE OF [place] CORONARY ARTERY W/O ANG PCTRS Qualifiers: Coronary Disease-Associated Artery/Lesion type: [place] artery [place] vs. transplanted heart: [place] heart Associated angina: without angina Qualified Code(s): I25.10 - Atherosclerotic heart disease of [place] coronary artery without angina pectoris (10) Diastolic dysfunction without heart failure Code(s): I51.9 - HEART DISEASE, UNSPECIFIED (11) HTN (hypertension) Code(s): I10 - ESSENTIAL (PRIMARY) HYPERTENSION Qualifiers: Hypertension type: essential hypertension Qualified Code(s): I10 - Essential (primary) hypertension (12) Hypertrophic cardiomyopathy Code(s): I42.2 - OTHER HYPERTROPHIC CARDIOMYOPATHY (13) Hyperlipidemia Code(s): E78.5 - HYPERLIPIDEMIA, UNSPECIFIED Qualifiers: Hyperlipidemia type: pure hypercholesterolemia Qualified Code(s): E78.00 - Pure hypercholesterolemia, unspecified; E78.0 - Pure hypercholesterolemia (14) Multiple myeloma Code(s): C90.00 - MULTIPLE MYELOMA NOT HAVING ACHIEVED REMISSION Qualifiers: Multiple myeloma remission status: not in remission Qualified Code(s): C90.00 - Multiple myeloma not having achieved remission (15) Acalculous cholecystitis Code(s): K81.9 - CHOLECYSTITIS, UNSPECIFIED Assessment/Plan R&LHc at [facility] 04/20/2016 showing nonobstructive CAD, severe LV apical hypertrophic cardiomyopathy, mildly elevated right sided pressures, Mynx deployed right [employer] access site. 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 Echocardiogram: 10/18/2017 Mod cLVH, severe PURVI, mod TR RVSP 50-60 mmHg, mod- severe MR Echocardiogram: 01/23/2018 Normal LV size with hyperdynamic LVEF 75%, mild BSH, normal RV size and fxn, severe LAE, mod-severe MR, mod TR 1. Acute hypoxic respiratory failure, suspected aspiration pneumonia 2. Toxic metabolic encephelopathy, possible hyperviscosity syndrome, sepsis 3. Acute on CKD (suspect myeloma kidney) 4. Hypercalcemia, paraproteinemia, anemia-> confirmed multiple myeloma, hyperviscosity syndrome 5. History of bilateral SFA occlusion post thrombectomy, referable to embolic disease related to persistent atrial fibrillation with [id number] score of 6, history of poor compliance with anticoagulation and medical F/U 6. Non obstructive CAD on R&LHc coronary angiography with demand ischemia 7. LV diastolic dysfunction related to apical hypertrophic cardiomyopathy, subendocardial ischemia, compensated/euvolemic 8. Persistent atrial fibrillation with RVR [id number] score of 6 on heparin gtt 9. Labile HTN 10. Acalculous Cholecystitis 11. Ischemic hepatitis 12. Anemia 13. Hypernatremia PLAN: 1. Heparin gtt while off Xarelto 15 qd (renal dosing). transfuse to maintain Hgb >8.0 2. Uptitrated Lopressor 75 bid as hemodynamics tolerate with IV Lopressor as needed for rate-control 3. Empiric renal-dosed abx course pending C&S 4. Enteral feeds with free water repletion, lactulose for hyperammonemia, monitor ammonia levels 5. Ventilator management, wean off sedation, GI protection 6. Consider IR cholecystotomy decompression per GI recs 7. LFTs downtrending 8. Continue discussions regarding goals of care with family: Compassionate extubation versus Tracheostomy
--- NOTE | 2018-02-26 11:45 | PN ---
Teaching Attending Note Name of Resident: Bola Griffith ATTENDING PHYSICIAN STATEMENT I saw and evaluated the patient. I reviewed the resident's note and discussed the case with the resident. I agree with the resident's findings and plan as documented. SUBJECTIVE: Patient seen and examined in the ICU. Remains intubated, poorly responsive. No gross change in overall mental status / condition. Family still deciding on GOC. OBJECTIVE: Intake & Output 02/23/18 02/24/18 02/25/18 02/26/18 23:59 23:59 23:59 23:59 Intake Total 910 2780 1300 1200 Output Total 1700 1600 1800 300 Balance -790 1180 -500 900 Weight 177 lb 9 oz 177 lb 9 oz 178 lb 6.4 oz 180 lb 3.2 oz Last Vital Signs Temp Pulse Resp BP Pulse Ox 101.1 F H 101 H 18 114/77 98 02/26/18 10:00 02/26/18 10:00 02/26/18 11:27 02/26/18 10:00 02/26/18 10:00 Active Medications Acetaminophen (Tylenol -) 650 mg PO Q6H PRN PRN Reason: PAIN LEVEL 1 - 3 Last Admin: 02/23/18 16:25 Dose: 650 mg Acetaminophen (Tylenol Suppository -) 650 mg RC Q6H PRN PRN Reason: FEVER Allopurinol (Zyloprim -) 100 mg PO BID [facility] Last Admin: 02/26/18 10:10 Dose: 100 mg Chlorhexidine Gluconate (Peridex -) 15 ml MM BID [facility] Last Admin: 02/26/18 10:11 Dose: 15 ml Cholecalciferol (Vitamin D3 -) 1,000 unit PO DAILY [facility] Last Admin: 02/26/18 10:10 Dose: 1,000 unit Diphenhydramine HCl (Benadryl Injection -) 25 mg IVPB ONCE PRN PRN Reason: DURING PLASMAPHERESIS Heparin Sodium (Porcine) (Heparin -) 1,000 unit IVPUSH PRN PRN PRN Reason: Heparin Heparin Sodium (Porcine) (Heparin -) 5,000 unit IVPUSH PRN PRN PRN Reason: Heparin Ceftazidime 1 gm/ Dextrose 50 mls @ 200 mls/hr IVPB DAILY [facility]; Protocol Last Admin: 02/25/18 10:25 Dose: 200 mls/hr Metronidazole (Flagyl 500mg Premixed Ivpb -) 500 mg in 100 mls @ 100 mls/hr IVPB BID [facility] Last Admin: 02/26/18 10:10 Dose: 100 mls/hr Sodium Chloride (1/2 Normal Saline) 1,000 mls @ 75 mls/hr IV ASDIR [facility] Lactulose (Cephulac (Oral Use)) 20 gm PO TID [facility] Last Admin: 02/26/18 05:54 Dose: 20 gm Metoprolol Tartrate (Lopressor Injection -) 5 mg IVPUSH Q8H PRN PRN Reason: TACHYCARDIA Metoprolol Tartrate (Lopressor -) 75 mg PO BID [facility] Last Admin: 02/26/18 10:10 Dose: 75 mg Pantoprazole Sodium (Protonix Iv) 40 mg IVPUSH DAILY [facility] Last Admin: 02/26/18 10:10 Dose: 40 mg Rifaximin (Xifaxan -) 550 mg PO BID [facility] Last Admin: 02/26/18 10:10 Dose: 550 mg Thiamine HCl (Vitamin B1 -) 100 mg PO DAILY [facility] Last Admin: 02/26/18 10:11 Dose: 100 mg Gen: intubated, poorly responsive Heart: irregular Lung: scattered rhonchi Abd: soft, nontender Ext: no edema Laboratory Results - last 24 hr 02/25/18 02/26/18 02/26/18 18:06 05:30 05:30 WBC 5.3 RBC 2.66 L Hgb 7.9 L Hct 24.0 L MCV 90.3 MCH 29.5 MCHC 32.7 RDW 16.1 H Plt Count 195 MPV 9.0 PTT (Actin FS) 28.8 Puncture Site ABG pH ABG pCO2 at Pt Temp ABG pO2 at Pt Temp ABG HCO3 ABG O2 Sat (Measured) ABG O2 Content ABG Base Excess Vinny Test Oxygen Flow Rate PEEP Sodium 151 H Potassium 5.2 H Chloride 124 H Carbon Dioxide 23 Anion Gap 5 L BUN 102 H Creatinine 2.7 H Creat Clearance w eGFR 22.91 Random Glucose 88 Calcium 6.0 L* Phosphorus Magnesium Total Bilirubin AST ALT Alkaline Phosphatase Total Protein Albumin 02/26/18 02/26/18 05:30 06:00 WBC RBC Hgb Hct MCV MCH MCHC RDW Plt Count MPV PTT (Actin FS) Puncture Site Right radial ABG pH 7.53 H ABG pCO2 at Pt Temp 29.3 L ABG pO2 at Pt Temp 80.2 D ABG HCO3 24.4 ABG O2 Sat (Measured) 96.1 ABG O2 Content 12.3 L ABG Base Excess 2.3 H Vinny Test No Result Required. Oxygen Flow Rate Yes PEEP Sodium 153 H Potassium 5.1 Chloride 124 H Carbon Dioxide 25 Anion Gap 5 L BUN 99 H Creatinine 2.5 H Creat Clearance w eGFR 25.04 Random Glucose 85 Calcium 6.1 L* Phosphorus 3.7 Magnesium 3.0 H Total Bilirubin 0.6 AST 52 H ALT 180 H Alkaline Phosphatase 84 Total Protein 9.4 H Albumin 1.3 L ASSESSMENT AND PLAN: Acute Hypoxic Respiratory Failure Altered Mental Status Metabolic Encephalopathy Pneumonia Acalculous Cholecystitis Multiple Myeloma Acute on Chronic Renal Failure Metabolic Acidosis LV Diastolic Dysfunction Atrial Fibrillation CAD +Troponins likely Demand Ischemia PAD Hyperlipidemia HTN - continue antibiotics per ID - monitor urine output, creatinine - rate control - continue anticoagulation - minimize sedation to assess mental status - spontaneous breathing trials as tolerated - DVT/GI prophylaxis - continue discussions regarding goals of care: Compassionate extubation versus Tracheostomy - palliative care involved - continue ICU monitoring - grave overall prognosis Dr Walker Critical care time spent in reviewing chart, evaluating patient and formulating plan 35 min
--- NOTE | 2018-02-26 12:29 | PN ---
Progress Note, Physician History of Present Illness: Unresponsive on ventilator Febrile 101.1 WBC WNL Cr 2.5 Sputum (R) Xanthomonas - Current Medication List Current Medications: Active Medications Acetaminophen (Tylenol -) 650 mg PO Q6H PRN PRN Reason: PAIN LEVEL 1 - 3 Last Admin: 02/23/18 16:25 Dose: 650 mg Acetaminophen (Tylenol Suppository -) 650 mg RC Q6H PRN PRN Reason: FEVER Allopurinol (Zyloprim -) 100 mg PO BID [facility] Last Admin: 02/26/18 10:10 Dose: 100 mg Chlorhexidine Gluconate (Peridex -) 15 ml MM BID [facility] Last Admin: 02/26/18 10:11 Dose: 15 ml Cholecalciferol (Vitamin D3 -) 1,000 unit PO DAILY [facility] Last Admin: 02/26/18 10:10 Dose: 1,000 unit Diphenhydramine HCl (Benadryl Injection -) 25 mg IVPB ONCE PRN PRN Reason: DURING PLASMAPHERESIS Heparin Sodium (Porcine) (Heparin -) 1,000 unit IVPUSH PRN PRN PRN Reason: Heparin Heparin Sodium (Porcine) (Heparin -) 5,000 unit IVPUSH PRN PRN PRN Reason: Heparin Ceftazidime 1 gm/ Dextrose 50 mls @ 200 mls/hr IVPB DAILY [facility]; Protocol Last Admin: 02/25/18 10:25 Dose: 200 mls/hr Metronidazole (Flagyl 500mg Premixed Ivpb -) 500 mg in 100 mls @ 100 mls/hr IVPB BID [facility] Last Admin: 02/26/18 10:10 Dose: 100 mls/hr Sodium Chloride (1/2 Normal Saline) 1,000 mls @ 75 mls/hr IV ASDIR [facility] Lactulose (Cephulac (Oral Use)) 20 gm PO TID [facility] Last Admin: 02/26/18 05:54 Dose: 20 gm Metoprolol Tartrate (Lopressor Injection -) 5 mg IVPUSH Q8H PRN PRN Reason: TACHYCARDIA Metoprolol Tartrate (Lopressor -) 75 mg PO BID [facility] Last Admin: 02/26/18 10:10 Dose: 75 mg Pantoprazole Sodium (Protonix Iv) 40 mg IVPUSH DAILY [facility] Last Admin: 02/26/18 10:10 Dose: 40 mg Rifaximin (Xifaxan -) 550 mg PO BID [facility] Last Admin: 02/26/18 10:10 Dose: 550 mg Thiamine HCl (Vitamin B1 -) 100 mg PO DAILY [facility] Last Admin: 02/26/18 10:11 Dose: 100 mg - Objective Vital Signs: Vital Signs Temperature 101.1 F H 02/26/18 10:00 Pulse Rate 101 H 02/26/18 10:00 Respiratory Rate 18 02/26/18 11:27 Blood Pressure 114/77 02/26/18 10:00 O2 Sat by Pulse Oximetry (%) 98 02/26/18 10:00 Constitutional: Yes: No Distress Cardiovascular: Yes: Regular Rate and Rhythm, S1, S2 Respiratory: Yes: Mechanically Ventilated Gastrointestinal: Yes: Normal Bowel Sounds, Soft. No: Tenderness Edema: Yes Edema: LLE: 1+, RLE: 1+ Labs: CBC, BMP 02/26/18 05:30 02/26/18 05:30 INR, PTT INR 1.28 (0.83-1.09) H 02/22/18 05:30 Fibrinogen 290.0 mg/dL (238-498) 02/18/18 06:00 Assessment/Plan Respiratory failure RLL pneumonia Acalculus Cholecystitis Toxic metabolic encephalopathy Hypercalcemia Renal failure Myeloma Hyperviscosity syndrome Will reculture in light of fever Substitute levaquin for ceftazidime Redose Vancomycin Ventilatory support Prognosis poor
[2018-02-26] MEDS ORDERED: VANCOMYCIN 1 GRAM (PRE-DOCKED) 1,000 MG/250 ML BAG IVPB ONE (12:35)
--- NOTE | 2018-02-26 12:51 | PN ---
Physical Exam: SUBJECTIVE: Patient seen and examined in the ICU. Remains intubated and sedated. Intermittent fever. No gross change in overall mental status. GOC/ family meeting initiated and ongoing. OBJECTIVE: Vital Signs Period Temp Pulse Resp BP Sys/Ariza Pulse Ox Last 24 Hr 99.8 F-101.1 F 11-129 14-21 105-120/68-78 98-99 GENERAL: The patient is intubated and sedated. HEAD: NCAT EYES: sclera anicteric. ENT: Ears normal, nares patent, dry mucous membranes NECK: Trachea midline. LUNGS: bilateral diffuse rhonchi HEART: Tachycardic rate and irregular rhythm. ABDOMEN: Soft, nondistended. EXTREMITIES: 2+ pulses, warm, well-perfused, no edema, scattered ulcers. NEUROLOGICAL: Cannot assess secondary to clinical condition. SKIN: Warm, dry, normal turgor, scattered ulcers on the legs Laboratory Results - last 24 hr 18 02/26/18 02/26/18 18:06 05:30 05:30 WBC 5.3 RBC 2.66 L Hgb 7.9 L Hct 24.0 L MCV 90.3 MCH 29.5 MCHC 32.7 RDW 16.1 H Plt Count 195 MPV 9.0 PTT (Actin FS) 28.8 Puncture Site ABG pH ABG pCO2 at Pt Temp ABG pO2 at Pt Temp ABG HCO3 ABG O2 Sat (Measured) ABG O2 Content ABG Base Excess Vinny Test Oxygen Flow Rate PEEP Sodium 151 H Potassium 5.2 H Chloride 124 H Carbon Dioxide 23 Anion Gap 5 L BUN 102 H Creatinine 2.7 H Creat Clearance w eGFR 22.91 Random Glucose 88 Calcium 6.0 L* Phosphorus Magnesium Total Bilirubin AST ALT Alkaline Phosphatase Total Protein Albumin 02/26/18 02/26/18 05:30 06:00 WBC RBC Hgb Hct MCV MCH MCHC RDW Plt Count MPV PTT (Actin FS) Puncture Site Right radial ABG pH 7.53 H ABG pCO2 at Pt Temp 29.3 L ABG pO2 at Pt Temp 80.2 D ABG HCO3 24.4 ABG O2 Sat (Measured) 96.1 ABG O2 Content 12.3 L ABG Base Excess 2.3 H Vinny Test No Result Required. Oxygen Flow Rate Yes PEEP Sodium 153 H Potassium 5.1 Chloride 124 H Carbon Dioxide 25 Anion Gap 5 L BUN 99 H Creatinine 2.5 H Creat Clearance w eGFR 25.04 Random Glucose 85 Calcium 6.1 L* Phosphorus 3.7 Magnesium 3.0 H Total Bilirubin 0.6 AST 52 H ALT 180 H Alkaline Phosphatase 84 Total Protein 9.4 H Albumin 1.3 L Active Medications Generic Name Dose Route Start Last Admin Trade Name Freq PRN Reason Stop Dose Admin Acetaminophen 650 mg 02/17/18 14:09 02/23/18 16:25 Tylenol - PO 650 mg Q6H PRN Administration PAIN LEVEL 1 - 3 Acetaminophen 650 mg 02/22/18 15:54 Tylenol Suppository - RC Q6H PRN FEVER Allopurinol 100 mg 02/16/18 10:00 02/26/18 10:10 Zyloprim - PO 100 mg BID [facility] Administration Chlorhexidine Gluconate 15 ml 02/17/18 23:45 02/26/18 10:11 Peridex - MM 15 ml BID [facility] Administration Cholecalciferol 1,000 unit 02/25/18 10:00 02/26/18 10:10 Vitamin D3 - PO 1,000 unit DAILY [facility] Administration Diphenhydramine HCl 25 mg 02/16/18 12:00 Benadryl Injection - IVPB ONCE PRN DURING PLASMAPHERESIS Heparin Sodium (Porcine) 1,000 unit 02/23/18 15:20 Heparin - IVPUSH PRN PRN Heparin Heparin Sodium (Porcine) 5,000 unit 02/23/18 15:20 Heparin - IVPUSH PRN PRN Heparin Metronidazole 500 mg in 100 mls @ 100 mls/hr 02/24/18 14:30 02/26/18 10:10 Flagyl 500mg Premixed Ivpb - IVPB 100 mls/hr BID [facility] Administration Sodium Chloride 1,000 mls @ 75 mls/hr 02/26/18 11:30 1/2 Normal Saline IV ASDIR [facility] Levofloxacin 250 mg in 50 mls @ 50 mls/hr 02/26/18 12:45 Levaquin 250 Mg Premixed Ivpb - IVPB DAILY [facility] Protocol Lactulose 20 gm 02/16/18 09:38 02/26/18 05:54 Cephulac (Oral Use) PO 20 gm TID [facility] Administration Metoprolol Tartrate 5 mg 02/16/18 13:04 Lopressor Injection - IVPUSH Q8H PRN TACHYCARDIA Metoprolol Tartrate 75 mg 02/23/18 08:30 02/26/18 10:10 Lopressor - PO 75 mg BID [facility] Administration Pantoprazole Sodium 40 mg 02/14/18 12:00 02/26/18 10:10 Protonix Iv IVPUSH 40 mg DAILY [facility] Administration Rifaximin 550 mg 02/22/18 22:00 02/26/18 10:10 Xifaxan - PO 550 mg BID [facility] Administration Thiamine HCl 100 mg 02/06/18 22:12 02/26/18 10:11 Vitamin B1 - PO 100 mg DAILY [facility] Administration ASSESSMENT/PLAN: 77 yo m PMH of A-Fib, Acute on chronic kidney injury, CAD w stents, hypercalcemia, medication non-adherence, paraproteinemia, thromboembolic disease , diastolic heart dysfunction without failure, HTN, HLD, hypertrophic cardiomyopathy is here after a rapid response. He was on the floors when it was noticed that he has respiratory insufficiency and was desaturating, requiring ICU monitoring. GOC/family meeting initiated and ongoing. GI: metabolic encephalopathy -ammonia improving w/ lactulose and rifaximin -LFTs are also elevated but downtrending. transamintitis most likely secondary to ischemic hepatits which is multifactorial including sepsis, episodes of hypotension and hyperviscosity syndrome. acalculous cholecystitis? US shows thickened gallbladder wall, pericholecystic fluid, suspicious for acalculous cholecystitis. There was also mild dilatation of the CBD but that might be normal for age. -Spoke w/ IR, who feel image does not represent acalculous cholecystitisand does not require any IR drainage ID: continues to spike fevers - Rhonchi heard on Lung auscultation -RLL pneumonia reculture in light of fever Substitute levaquin for ceftazidime Redose Vancomycin - c/w flagyl. - ID on board - c/w rifaximin for elevated ammonia level Cardio: Afib - Lopressor 75 mg BID PO -IV metoprolol 5 mg PRN - diastolic dysfunction + hypertrophic cardiomyopathy - CAD with multiple stents - Cardio consulted and on board. Heparin gtt while off Xarelto 15 qd (renal dosing). transfuse to maintain Hgb> 8.0 Pulm: - Intubated - Patient has b/l pleural effusions. - No pneumothorax - b/l diffuse rhonchi - infiltrate on CXR: Abx- Substitute levaquin for ceftazidime Redose Vancomycin - c/w flagyl. Renal: - Acute on Chronic kidney injury MEILTA ATN vs. 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 tubular injury, US showed no stones or obstruction, UA w/o protein but UPCR ~0.5 indicating non- albumin proteinuria) - Renal consulted and on board. Hyperkalemia (r/o tumor lysis) serum K is improved, will d/c bicarb gtt start hypotonic saline with dextrose Neuro: - Patient is not alert or oriented. - Head CT showed no acute pathology - Neuro consulted and on board. (Dr. Kuo + Dr. mejia) - Ammonia elevated - Patient receiving lactulose - c/w rifaximin for elevated ammonia. Heme/Onc: - monitor H/H - Will transfuse to keep hb > 8 - Patient not receiving plasmapharesis today. - Paraproteinemia - Patient fulfills new criteria for multiple myeloma with free kappa/ free lambda light chain ratio of 432 (>100 is diagnostic of myeloma) - Boling/Lambda ratio > 100 consistent with Multiple myeloma - M spike elevated elevated at 6.8 previously 4.7 -steroids being held at this time Endo: - Parathyroid hormone WNL - PTH-borderline low appropriate given hypercalcemia, PTHrP low Prophylaxis: - heparin gtt - Protonix F/E/N: F: hypotonic saline with dextrose E: Will replete lytes PRN N: tube feeds. Code Status: Full Code - GOC/family meeting initiated and ongoing. - Compassionate extubation versus Tracheostomy Dispo: Patient will continue to receive ICU level care Visit type - Emergency Visit Emergency Visit: Yes ED Registration Date: 02/06/18 Care time: The patient presented to the Emergency Department on the above date and was hospitalized for further evaluation of their emergent condition. - New Patient This patient is new to me today: Yes Date on this admission: 02/26/18 - Critical Care Critical Care patient: Yes Total Critical Care Time (in minutes): 40 Critical Care Statement: The care of this patient involved high complexity decision making to prevent further life threatening deterioration of the patient 's condition and/or to evaluate & treat vital organ system(s) failure or risk of failure.
[2018-02-26] MEDS: SODIUM CHLORIDE 0.45% 1,000 ML IV SCH (13:39)
[2018-02-26 17:06] LABS: BASO % 0.3 % (0-2.0); EOS % 1.3 % (0-4.5); HEMATOCRIT 24.5 % (35.4-49); HEMOGLOBIN 8.4 GM/dL (11.7-16.9); LYMPH % 11.4 % (8-40); MCH 31.2 pg (25.7-33.7); MCHC 34.4 g/dl (32.0-35.9); MEAN CELL VOLUME 90.5 fl (80-96); MEAN PLT VOLUME 8.7 fl (7.5-11.1); MONO % 1.7 % (3.8-10.2); NEUT % 85.3 % (42.8-82.8); PLATELET COUNT 187 K/MM3 (134-434); RBC 2.71 M/mm3 (4.00-5.60); RDW 16.5 % (11.9-15.9); WHITE BLOOD COUNT 4.9 K/mm3 (4.0-10.0)
--- NOTE | 2018-02-26 18:32 | EKG ---
Test Reason : Blood Pressure : / mmHG Vent. Rate : 100 BPM Atrial Rate : 394 BPM P-R Int : 000 ms QRS Dur : 136 ms QT Int : 364 ms P-R-T Axes : 000 -78 028 degrees QTc Int : 469 ms ATRIAL FIBRILLATION RIGHT BUNDLE BRANCH BLOCK LEFT ANTERIOR FASCICULAR BLOCK BIFASCICULAR BLOCK ABNORMAL ECG WHEN COMPARED WITH ECG OF 23-FEB-2018 08:32, NO SIGNIFICANT CHANGE WAS FOUND Confirmed by FOX NORWOOD MD ([id number]) on 02/26/2018 6:32:44 PM Referred By: Confirmed By:FOX NORWOOD MD
[2018-02-26 19:34] LABS: ANISOCYTOSIS 3+; MACROCYTOSIS 1+; PLATELET ESTIMATE ADEQUATE
[2018-02-27] MEDS: LACTULOSE 20 GM/30 ML UDC (FOR ORAL USE ONLY) PO SCH ×3 (05:48→21:04)
[2018-02-27 06:33] LABS: HEMATOCRIT 23.3 % (35.4-49); HEMOGLOBIN 7.5 GM/dL (11.7-16.9); MCH 29.7 pg (25.7-33.7); MCHC 32.1 g/dl (32.0-35.9); MEAN CELL VOLUME 92.4 fl (80-96); MEAN PLT VOLUME 9.1 fl (7.5-11.1); PLATELET COUNT 167 K/MM3 (134-434); RBC 2.52 M/mm3 (4.00-5.60); RDW 16.1 % (11.9-15.9); WHITE BLOOD COUNT 5.7 K/mm3 (4.0-10.0)
--- NOTE | 2018-02-27 06:49 | PN ---
Progress Note (short form) - Note Progress Note: Chief Complaint: Events noted, notes reviewed, remains intubated, remains in atrial fibrillation off of A/C-Heparin, related to dropping H/H History of Present Illness: Seen and examined in the ICU. Events noted, notes reviewed, remains intubated, remains in atrial fibrillation off of A/C-Heparin, related to dropping H/H Remains on B-Blockers [facility] coronary angiography performed 04/20/2016 revealed non-obstructive CAD, severe LV apical hypertrophic cardiomyopathy, mildly elevated right sided pressures/study is consistent with apical hypertrophy (spade-like) variant of hypertrophic cardiomyopathy Echocardiography dated 10/18/2017 Mod cLVH, severe PURVI, moderate TR RVSP 50-60 mmHg, moderate-severe MR Echocardiography dated 01/23/2018 Normal LV size with hyperdynamic LVEF 75%, mild BSH, normal RV size and function, severe LAE, moderate-severe MR, mod TR - Current Medication List Current Medications Acetaminophen (Tylenol -) 650 mg PO Q6H PRN PRN Reason: PAIN LEVEL 1 - 3 Last Admin: 02/23/18 16:25 Dose: 650 mg Acetaminophen (Tylenol Suppository -) 650 mg RC Q6H PRN PRN Reason: FEVER Allopurinol (Zyloprim -) 100 mg PO BID [facility] Last Admin: 02/26/18 21:24 Dose: 100 mg Chlorhexidine Gluconate (Peridex -) 15 ml MM BID [facility] Last Admin: 02/26/18 21:23 Dose: 15 ml Cholecalciferol (Vitamin D3 -) 1,000 unit PO DAILY [facility] Last Admin: 02/26/18 10:10 Dose: 1,000 unit Diphenhydramine HCl (Benadryl Injection -) 25 mg IVPB ONCE PRN PRN Reason: DURING PLASMAPHERESIS Heparin Sodium (Porcine) (Heparin -) 1,000 unit IVPUSH PRN PRN PRN Reason: Heparin Heparin Sodium (Porcine) (Heparin -) 5,000 unit IVPUSH PRN PRN PRN Reason: Heparin Metronidazole (Flagyl 500mg Premixed Ivpb -) 500 mg in 100 mls @ 100 mls/hr IVPB BID [facility] Last Admin: 02/26/18 21:23 Dose: 100 mls/hr Sodium Chloride (1/2 Normal Saline) 1,000 mls @ 75 mls/hr IV ASDIR [facility] Last Admin: 02/26/18 13:39 Dose: 75 mls/hr Levofloxacin (Levaquin 250 Mg Premixed Ivpb -) 250 mg in 50 mls @ 50 mls/hr IVPB DAILY [facility]; Protocol Last Admin: 02/26/18 13:12 Dose: 50 mls/hr Lactulose (Cephulac (Oral Use)) 20 gm PO TID [facility] Last Admin: 02/27/18 05:48 Dose: 20 gm Metoprolol Tartrate (Lopressor Injection -) 5 mg IVPUSH Q8H PRN PRN Reason: TACHYCARDIA Metoprolol Tartrate (Lopressor -) 75 mg PO BID [facility] Last Admin: 02/26/18 21:23 Dose: 75 mg Pantoprazole Sodium (Protonix Iv) 40 mg IVPUSH DAILY [facility] Last Admin: 02/26/18 10:10 Dose: 40 mg Rifaximin (Xifaxan -) 550 mg PO BID [facility] Last Admin: 02/26/18 21:24 Dose: 550 mg Thiamine HCl (Vitamin B1 -) 100 mg PO DAILY [facility] Last Admin: 02/26/18 10:11 Dose: 100 mg Review of Systems Unable to obtain - Objective Vital Signs: Last Vital Signs Temp Pulse Resp BP Pulse Ox 99.6 F 104 H 19 94/61 98 02/27/18 06:00 02/27/18 06:00 02/27/18 06:00 02/27/18 06:00 02/26/18 20:00 Intake & Output 02/24/18 02/25/18 02/26/18 02/27/18 23:59 23:59 23:59 23:59 Intake Total 2780 1300 2900 2860 Output Total 1600 1800 1500 400 Balance 1180 -500 1400 2460 Weight 177 lb 9 oz 178 lb 6.4 oz 180 lb 3.2 oz 180 lb 3.2 oz Neck: Supple Negative JVD No Bruit Cardiovascular: S1 S2 Irregularly Irregular Grade 2/6 Systolic Murmur Apical Chest: Scattered Rhonchi Bilaterally Gastrointestinal: Soft Benign Normal Bowel Sounds Ext: No Edema 1+ Bilateral femoral Pulses Labs: CBC, BMP 02/27/18 05:30 BMP pending from this AM Hepatic Panel Total Bilirubin 0.6 mg/dL (0.2-1) 02/26/18 05:30 AST 52 U/L (15-37) H 02/26/18 05:30 ALT 180 U/L (13-61) H 02/26/18 05:30 Alkaline Phosphatase 84 U/L (45-117) 02/26/18 05:30 Albumin 1.3 g/dl (3.4-5.0) L 02/26/18 05:30 Assessment/Plan ASSESSMENT: 1. Acute hypoxic respiratory failure, suspected aspiration pneumonia with sepsis syndrome 2. Toxic metabolic encephelopathy, rule out CVA while off A/C 3. Acute on CKD, suspected myeloma kidney 4. Paraproteinemia, hypercalcemia and anemia confirmed multiple myeloma 5. History of bilateral SFA occlusion post thrombectomy, most likely embolic disease related to persistent atrial fibrillation with [id number] score of 6 6. CAD with evidence of demand ischemic injury, non obstructive CAD on [facility] coronary angiogrpahy angina pectoris 7. 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 Persistent atrial fibrillation [id number] score of 6 currently off of Heparin therapy, related to anemia 9. HTN 10. Anemia 11. Acalculous Cholecystitis 12. Ischemic hepatitis PLAN: 1. Heparin on hold related to dropping Hg, transfuse to maintain Hg equal or > 8.0, ideally A/C therapy to be continued indefinitely unless it is absolutely contraindicated considering his [id number] score of 6 2. Continue Lopressor 3. Antibiotics as per the primary team 4. Ventilator management as per the ICU team 5. Overall poor prognosis family to decide regarding compassionate extubation versus tracheostomy Mabel Rolle MD
[2018-02-27 07:25] LABS: ARTERIAL BLD GAS O2 SATURATION 97.9 % (90-98.9); ARTERIAL BLOOD GAS BASE EXCESS -0.3 meq/l (-2-2); ARTERIAL BLOOD GAS PCO2 29.8 mmHg (35-45); ARTERIAL BLOOD GAS PO2 95.7 mmHg (70-100)
[2018-02-27 07:33] LABS: ALLENS TEST POSITIVE
[2018-02-27 08:08] LABS: ALBUMIN 1.2 g/dl (3.4-5.0); ALK PHOS 76 U/L (45-117); ANION GAP 6 MMOL/L (8-16); BILIRUBIN,TOTAL 0.4 mg/dL (0.2-1); BLOOD UREA NITROGEN 92 mg/dL (7-18); CHLORIDE 122 mmol/L (98-107); CO2 23 mmol/L (21-32); CREATININE 2.7 mg/dL (0.55-1.3); GLUCOSE,RANDOM 106 mg/dL (74-106); MAGNESIUM 2.7 mg/dL (1.8-2.4); PHOSPHOROUS 4.1 mg/dL (2.5-4.9); POTASSIUM 5.1 mmol/L (3.5-5.1); SGOT/AST 55 U/L (15-37); SGPT/ALT 126 U/L (13-61); SODIUM 152 mmol/L (136-145); TOT PROT 9.2 g/dl (6.4-8.2)
[2018-02-27 08:22] LABS: CALCIUM 5.6 mg/dL (8.5-10.1)
[2018-02-27] MEDS ORDERED: CALCIUM GLUCONATE 10% - 1,000 MG/10 ML VIAL IVPB ONE (08:50)
--- NOTE | 2018-02-27 09:00 | PN ---
Progress Note, Physician History of Present Illness: Unresponsive on ventilator Low grade temps WBC WNL Repeat BC pending - Current Medication List Current Medications: Active Medications Acetaminophen (Tylenol -) 650 mg PO Q6H PRN PRN Reason: PAIN LEVEL 1 - 3 Last Admin: 02/23/18 16:25 Dose: 650 mg Acetaminophen (Tylenol Suppository -) 650 mg RC Q6H PRN PRN Reason: FEVER Allopurinol (Zyloprim -) 100 mg PO BID [facility] Last Admin: 02/26/18 21:24 Dose: 100 mg Chlorhexidine Gluconate (Peridex -) 15 ml MM BID [facility] Last Admin: 02/26/18 21:23 Dose: 15 ml Cholecalciferol (Vitamin D3 -) 1,000 unit PO DAILY [facility] Last Admin: 02/26/18 10:10 Dose: 1,000 unit Diphenhydramine HCl (Benadryl Injection -) 25 mg IVPB ONCE PRN PRN Reason: DURING PLASMAPHERESIS Heparin Sodium (Porcine) (Heparin -) 1,000 unit IVPUSH PRN PRN PRN Reason: Heparin Heparin Sodium (Porcine) (Heparin -) 5,000 unit IVPUSH PRN PRN PRN Reason: Heparin Metronidazole (Flagyl 500mg Premixed Ivpb -) 500 mg in 100 mls @ 100 mls/hr IVPB BID [facility] Last Admin: 02/26/18 21:23 Dose: 100 mls/hr Sodium Chloride (1/2 Normal Saline) 1,000 mls @ 75 mls/hr IV ASDIR [facility] Last Admin: 02/26/18 13:39 Dose: 75 mls/hr Levofloxacin (Levaquin 250 Mg Premixed Ivpb -) 250 mg in 50 mls @ 50 mls/hr IVPB DAILY [facility]; Protocol Last Admin: 02/26/18 13:12 Dose: 50 mls/hr Lactulose (Cephulac (Oral Use)) 20 gm PO TID [facility] Last Admin: 02/27/18 05:48 Dose: 20 gm Metoprolol Tartrate (Lopressor Injection -) 5 mg IVPUSH Q8H PRN PRN Reason: TACHYCARDIA Metoprolol Tartrate (Lopressor -) 75 mg PO BID [facility] Last Admin: 02/26/18 21:23 Dose: 75 mg Pantoprazole Sodium (Protonix Iv) 40 mg IVPUSH DAILY [facility] Last Admin: 02/26/18 10:10 Dose: 40 mg Rifaximin (Xifaxan -) 550 mg PO BID [facility] Last Admin: 02/26/18 21:24 Dose: 550 mg Thiamine HCl (Vitamin B1 -) 100 mg PO DAILY [facility] Last Admin: 02/26/18 10:11 Dose: 100 mg - Objective Vital Signs: Vital Signs Temperature 99.6 F 02/27/18 06:00 Pulse Rate 111 H 02/27/18 08:00 Respiratory Rate 17 02/27/18 08:00 Blood Pressure 100/63 02/27/18 08:00 O2 Sat by Pulse Oximetry (%) 98 02/26/18 20:00 Constitutional: Yes: No Distress Eyes: Yes: Conjunctiva Clear Cardiovascular: Yes: Regular Rate and Rhythm, S1, S2 Respiratory: Yes: Mechanically Ventilated Gastrointestinal: Yes: Normal Bowel Sounds, Soft. No: Tenderness Edema: Yes Edema: LLE: 1+, RLE: 1+ Labs: CBC, BMP 02/27/18 05:30 02/27/18 05:30 INR, PTT INR 1.28 (0.83-1.09) H 02/22/18 05:30 Fibrinogen 290.0 mg/dL (238-498) 02/18/18 06:00 Assessment/Plan Respiratory failure RLL pneumonia Acalculus Cholecystitis Toxic metabolic encephalopathy Hypercalcemia Renal failure Myeloma Hyperviscosity syndrome Continue levaquin/ flagyl Vancomycin redosed Ventilatory support Prognosis poor
--- NOTE | 2018-02-27 09:37 | PN ---
Progress Note, Physician - Current Medication List Current Medications: Active Medications Acetaminophen (Tylenol -) 650 mg PO Q6H PRN PRN Reason: PAIN LEVEL 1 - 3 Last Admin: 02/23/18 16:25 Dose: 650 mg Acetaminophen (Tylenol Suppository -) 650 mg RC Q6H PRN PRN Reason: FEVER Allopurinol (Zyloprim -) 100 mg PO BID [facility] Last Admin: 02/26/18 21:24 Dose: 100 mg Chlorhexidine Gluconate (Peridex -) 15 ml MM BID [facility] Last Admin: 02/26/18 21:23 Dose: 15 ml Cholecalciferol (Vitamin D3 -) 1,000 unit PO DAILY [facility] Last Admin: 02/26/18 10:10 Dose: 1,000 unit Diphenhydramine HCl (Benadryl Injection -) 25 mg IVPB ONCE PRN PRN Reason: DURING PLASMAPHERESIS Heparin Sodium (Porcine) (Heparin -) 1,000 unit IVPUSH PRN PRN PRN Reason: Heparin Heparin Sodium (Porcine) (Heparin -) 5,000 unit IVPUSH PRN PRN PRN Reason: Heparin Metronidazole (Flagyl 500mg Premixed Ivpb -) 500 mg in 100 mls @ 100 mls/hr IVPB BID [facility] Last Admin: 02/26/18 21:23 Dose: 100 mls/hr Sodium Chloride (1/2 Normal Saline) 1,000 mls @ 75 mls/hr IV ASDIR [facility] Last Admin: 02/26/18 13:39 Dose: 75 mls/hr Levofloxacin (Levaquin 250 Mg Premixed Ivpb -) 250 mg in 50 mls @ 50 mls/hr IVPB DAILY [facility]; Protocol Last Admin: 02/26/18 13:12 Dose: 50 mls/hr Lactulose (Cephulac (Oral Use)) 20 gm PO TID [facility] Last Admin: 02/27/18 05:48 Dose: 20 gm Metoprolol Tartrate (Lopressor Injection -) 5 mg IVPUSH Q8H PRN PRN Reason: TACHYCARDIA Metoprolol Tartrate (Lopressor -) 75 mg PO BID [facility] Last Admin: 02/26/18 21:23 Dose: 75 mg Pantoprazole Sodium (Protonix Iv) 40 mg IVPUSH DAILY [facility] Last Admin: 02/26/18 10:10 Dose: 40 mg Rifaximin (Xifaxan -) 550 mg PO BID [facility] Last Admin: 02/26/18 21:24 Dose: 550 mg Thiamine HCl (Vitamin B1 -) 100 mg PO DAILY [facility] Last Admin: 02/26/18 10:11 Dose: 100 mg - Objective Vital Signs: Vital Signs Temperature 99.6 F 02/27/18 06:00 Pulse Rate 111 H 02/27/18 08:00 Respiratory Rate 17 02/27/18 08:00 Blood Pressure 100/63 02/27/18 08:00 O2 Sat by Pulse Oximetry (%) 98 02/26/18 20:00 Cardiovascular: Yes: S1, S2 Respiratory: Yes: Mechanically Ventilated Gastrointestinal: Yes: Normal Bowel Sounds, Soft Labs: CBC, BMP 02/27/18 05:30 02/27/18 05:30 INR, PTT INR 1.28 (0.83-1.09) H 02/22/18 05:30 Fibrinogen 290.0 mg/dL (238-498) 02/18/18 06:00 Problem List - Problems (1) Toxic metabolic encephalopathy Code(s): G92 - TOXIC ENCEPHALOPATHY (2) Cellulitis Code(s): L03.90 - CELLULITIS, UNSPECIFIED Qualifiers: Site of cellulitis: extremity Site of cellulitis of extremity: lower extremity Laterality: right Qualified Code(s): L03.115 - Cellulitis of right lower limb (3) Sepsis Code(s): A41.9 - SEPSIS, UNSPECIFIED ORGANISM (4) Artery occlusion Code(s): I70.90 - UNSPECIFIED ATHEROSCLEROSIS (5) Hypercalcemia Code(s): E83.52 - HYPERCALCEMIA (6) Paroxysmal atrial fibrillation Code(s): I48.0 - PAROXYSMAL ATRIAL FIBRILLATION (7) MELITA (acute kidney injury) Code(s): N17.9 - ACUTE KIDNEY FAILURE, UNSPECIFIED Assessment/Plan - Problems (1) Elevated LFTs Assessment/Plan: ultrasound of liver noted suggestive of acalculous cholecystitis, will get GI consult- noted lft trending down regarding acalculous cholecystits possible iR evaluation for cholecystostomy decopmression currently awaitng family decision regards goals of care Code(s): R94.5 - ABNORMAL RESULTS OF LIVER FUNCTION STUDIES (2) MELITA (acute kidney injury) Assessment/Plan: bun/cr is better from 2.8 to 2 on .ivf serum bicarb is now 22 corrected calcium Code(s): N17.9 - ACUTE KIDNEY FAILURE, UNSPECIFIED (3) Atrial fibrillation with RVR Assessment/Plan: heparin drip cardiac cath rn rate control with metoprolol (4) Respiratory failure Assessment/Plan: intubated propofol/fentanyl aviating family decision regarding goals of care possible compassionate weaning vs tracheostomy Code(s): J96.90 - RESPIRATORY FAILURE, UNSP, UNSP W HYPOXIA OR HYPERCAPNIA (5) Toxic metabolic encephalopathy Assessment/Plan: Microbiology 02/21/18 11:20 Urine - Urine Brenner Urine Culture - Final NO GROWTH OBTAINED 02/13/18 14:30 Urine - Urine Brenner Legionella Antigen - Final 02/13/18 14:30 Urine - Urine Brenner Streptococcus pneumoniae Antigen (M - Final 02/13/18 14:30 Sputum - Endotrachea Suction/Ventilator Gram Stain - Final 02/13/18 14:30 Sputum - Endotrachea Suction/Ventilator Sputum Culture - Final Stenotrophomon.(X.)Maltophilia 02/21/18 09:58 Blood - Peripheral Venous Blood Culture - Preliminary NO GROWTH OBTAINED AFTER 24 HOURS, INCUBATION TO CONTINUE FOR 4 DAYS. 02/21/18 09:50 Blood - Peripheral Venous Blood Culture - Preliminary NO GROWTH OBTAINED AFTER 24 HOURS, INCUBATION TO CONTINUE FOR 4 DAYS. 02/17/18 15:00 Blood - Peripheral Venous Blood Culture - Preliminary NO GROWTH OBTAINED AFTER 96 HOURS, INCUBATION TO CONTINUE FOR 1 DAYS. 02/17/18 14:00 Blood - Central Line Blood Culture - Preliminary NO GROWTH OBTAINED AFTER 96 HOURS, INCUBATION TO CONTINUE FOR 1 DAYS. afebrile normal WBC repeat cultures as above on ceftazidime - and flagly temp 101 Code(s): G92 - TOXIC ENCEPHALOPATHY (6) Altered mental status Assessment/Plan: maybe secondary to toxic metabolic encephalopathy neurology consult appreciated on lactulose TID still persistently elevated Nh3 level on steroid as well dexamethasone - no improvement in mental status s/p plasmapheresis dvt ppx lovenox Code(s): R41.82 - ALTERED MENTAL STATUS, UNSPECIFIED
[2018-02-27] MEDS: PANTOPRAZOLE SODIUM 40 MG VIAL IVPUSH SCH (09:45)
[2018-02-27] MEDS: CHLORHEXIDINE GLUCONATE 0.12% 15ML CUP MM SCH ×2 (09:47→21:05)
[2018-02-27] MEDS: THIAMINE HCL 100 MG TABLET (FP) PO SCH (09:48)
[2018-02-27] MEDS: METOPROLOL TARTRATE 50 MG TABLET (FP) PO SCH ×2 (09:48→21:05)
[2018-02-27] MEDS: RIFAXIMIN 550 MG TABLET (UD) PO SCH ×2 (09:48→21:05)
[2018-02-27] MEDS: CHOLECALCIFEROL (VITAMIN D3) 1,000 UNIT TABLET (FP) PO SCH (09:48)
[2018-02-27] MEDS: ALLOPURINOL 100 MG TABLET (FP) PO SCH ×2 (09:48→21:05)
--- NOTE | 2018-02-27 10:43 | PN ---
Progress Note (short form) - Note Progress Note: Renal follow up for Hypercalcemia/MELITA Pt seen and examined in the ICU on vent, no overnight events making urine via francois continues to have low grade fevers Vital Signs Temperature 99.6 F 02/27/18 06:00 Pulse Rate 107 H 02/27/18 10:00 Respiratory Rate 14 02/27/18 10:00 Blood Pressure 96/67 02/27/18 10:00 O2 Sat by Pulse Oximetry (%) 98 02/26/18 20:00 Intake & Output 02/24/18 02/25/18 02/26/18 02/27/18 23:59 23:59 23:59 23:59 Intake Total 2780 1300 2900 2860 Output Total 1600 1800 1500 400 Balance 1180 -500 1400 2460 Weight 80.541 kg 80.921 kg 81.737 kg 81.737 kg NAD on vent via ET tube tachycardic dec BS, no rales No bladder distension No LE edema CBC, BMP 02/27/18 05:30 02/27/18 05:30 Laboratory Tests 02/27/18 05:30 Calcium 5.6 L* Phosphorus 4.1 Magnesium 2.7 H Albumin 1.2 L Current Medications Acetaminophen (Tylenol -) 650 mg PO Q6H PRN PRN Reason: PAIN LEVEL 1 - 3 Last Admin: 02/23/18 16:25 Dose: 650 mg Acetaminophen (Tylenol Suppository -) 650 mg RC Q6H PRN PRN Reason: FEVER Allopurinol (Zyloprim -) 100 mg PO BID [facility] Last Admin: 02/27/18 09:48 Dose: 100 mg Chlorhexidine Gluconate (Peridex -) 15 ml MM BID [facility] Last Admin: 02/27/18 09:47 Dose: 15 ml Cholecalciferol (Vitamin D3 -) 1,000 unit PO DAILY [facility] Last Admin: 02/27/18 09:48 Dose: 1,000 unit Diphenhydramine HCl (Benadryl Injection -) 25 mg IVPB ONCE PRN PRN Reason: DURING PLASMAPHERESIS Heparin Sodium (Porcine) (Heparin -) 1,000 unit IVPUSH PRN PRN PRN Reason: Heparin Heparin Sodium (Porcine) (Heparin -) 5,000 unit IVPUSH PRN PRN PRN Reason: Heparin Metronidazole (Flagyl 500mg Premixed Ivpb -) 500 mg in 100 mls @ 100 mls/hr IVPB BID [facility] Last Admin: 02/27/18 09:44 Dose: 100 mls/hr Sodium Chloride (1/2 Normal Saline) 1,000 mls @ 75 mls/hr IV ASDIR [facility] Last Admin: 02/26/18 13:39 Dose: 75 mls/hr Levofloxacin (Levaquin 250 Mg Premixed Ivpb -) 250 mg in 50 mls @ 50 mls/hr IVPB DAILY [facility]; Protocol Last Admin: 02/27/18 09:54 Dose: 50 mls/hr Lactulose (Cephulac (Oral Use)) 20 gm PO TID [facility] Last Admin: 02/27/18 05:48 Dose: 20 gm Metoprolol Tartrate (Lopressor Injection -) 5 mg IVPUSH Q8H PRN PRN Reason: TACHYCARDIA Metoprolol Tartrate (Lopressor -) 75 mg PO BID [facility] Last Admin: 02/27/18 09:48 Dose: Not Given Pantoprazole Sodium (Protonix Iv) 40 mg IVPUSH DAILY [facility] Last Admin: 02/27/18 09:45 Dose: 40 mg Rifaximin (Xifaxan -) 550 mg PO BID [facility] Last Admin: 02/27/18 09:48 Dose: 550 mg Thiamine HCl (Vitamin B1 -) 100 mg PO DAILY [facility] Last Admin: 02/27/18 09:48 Dose: 100 mg 77 year old gentleman with hx of CKD, Afib on A/C, CAD, CKD, Hypertension, Hyperlipidemia, PVD who presented with AMS/Confusion and found to have MELITA. #MELITA ATN vs. 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 tubular injury, US showed no stones or obstruction, UA w/o protein but UPCR ~0.5 indicating non- albumin proteinuria) #AMS #Newly diagnosed multiple myloma #Anemia #Hypercalcemia of Malignancy (PTH is low) #Hyperdense lesion on US of the kidney #Normal anion gap metabolic acidosis #Hyperkalemia (r/o tumor lysis) Renal function stable and pt remains non-oliguric no acute indication for [employer] and pt would not be a good candidate given co- morbid conditions and poor overall prognosis continue supportive care, keep MAP > 65 continue tube feeds (low potassium feeds) can discontinue IVF if pt is tolerating feeds with free water consider increasing free water as pt remains hypernatremic trend renal function and electrolytes Oncology folllow up prognosis is poor Mack Miller DO
--- NOTE | 2018-02-27 11:57 | PN ---
Teaching Attending Note Name of Resident: Bola Griffith ATTENDING PHYSICIAN STATEMENT I saw and evaluated the patient. I reviewed the resident's note and discussed the case with the resident. I agree with the resident's findings and plan as documented. SUBJECTIVE: Patient seen and examined in the ICU. Remains intubated, minimally responsive off sedation. No gross change in overall mental status / condition. Receiving pRBCs. Family still deciding on GOC. OBJECTIVE: Intake & Output 02/24/18 02/25/18 02/26/18 02/27/18 23:59 23:59 23:59 23:59 Intake Total 2780 1300 2900 2860 Output Total 1600 1800 1500 400 Balance 1180 -500 1400 2460 Weight 177 lb 9 oz 178 lb 6.4 oz 180 lb 3.2 oz 180 lb 3.2 oz Last Vital Signs Temp Pulse Resp BP Pulse Ox 99.6 F 107 H 14 96/67 98 02/27/18 06:00 02/27/18 10:00 02/27/18 10:00 02/27/18 10:00 02/26/18 20:00 Active Medications Acetaminophen (Tylenol -) 650 mg PO Q6H PRN PRN Reason: PAIN LEVEL 1 - 3 Last Admin: 02/23/18 16:25 Dose: 650 mg Acetaminophen (Tylenol Suppository -) 650 mg RC Q6H PRN PRN Reason: FEVER Allopurinol (Zyloprim -) 100 mg PO BID [facility] [place] Last Admin: 02/27/18 09:48 Dose: 100 mg Chlorhexidine Gluconate (Peridex -) 15 ml MM BID [facility] [place] Last Admin: 02/27/18 09:47 Dose: 15 ml Cholecalciferol (Vitamin D3 -) 1,000 unit PO DAILY [facility] [place] Last Admin: 02/27/18 09:48 Dose: 1,000 unit Diphenhydramine HCl (Benadryl Injection -) 25 mg IVPB ONCE PRN PRN Reason: DURING PLASMAPHERESIS Heparin Sodium (Porcine) (Heparin -) 1,000 unit IVPUSH PRN PRN PRN Reason: Heparin Heparin Sodium (Porcine) (Heparin -) 5,000 unit IVPUSH PRN PRN PRN Reason: Heparin Metronidazole (Flagyl 500mg Premixed Ivpb -) 500 mg in 100 mls @ 100 mls/hr IVPB BID [facility] Last Admin: 02/27/18 09:44 Dose: 100 mls/hr Sodium Chloride (1/2 Normal Saline) 1,000 mls @ 75 mls/hr IV ASDIR [facility] Last Admin: 02/26/18 13:39 Dose: 75 mls/hr Levofloxacin (Levaquin 250 Mg Premixed Ivpb -) 250 mg in 50 mls @ 50 mls/hr IVPB DAILY [facility] [place]; Protocol Last Admin: 02/27/18 09:54 Dose: 50 mls/hr Lactulose (Cephulac (Oral Use)) 20 gm PO TID [facility] Last Admin: 02/27/18 05:48 Dose: 20 gm Metoprolol Tartrate (Lopressor Injection -) 5 mg IVPUSH Q8H PRN PRN Reason: TACHYCARDIA Metoprolol Tartrate (Lopressor -) 75 mg PO BID [facility] [place] Last Admin: 02/27/18 09:48 Dose: Not Given Pantoprazole Sodium (Protonix Iv) 40 mg IVPUSH DAILY [facility] Last Admin: 02/27/18 09:45 Dose: 40 mg Rifaximin (Xifaxan -) 550 mg PO BID [facility] [place] Last Admin: 02/27/18 09:48 Dose: 550 mg Thiamine HCl (Vitamin B1 -) 100 mg PO DAILY [facility] Last Admin: 02/27/18 09:48 Dose: 100 mg Gen: intubated, minimally responsive Heart: irregular Lung: scattered rhonchi Abd: soft, nontender Ext: no edema Laboratory Results - last 24 hr 02/24/18 02/26/18 02/27/18 08:05 16:00 05:30 WBC 4.9 5.7 RBC 2.71 L 2.52 L Hgb 8.4 L 7.5 L Hct 24.5 L 23.3 L MCV 90.5 92.4 MCH 31.2 29.7 MCHC 34.4 32.1 RDW 16.5 H 16.1 H Plt Count 187 167 MPV 8.7 9.1 Absolute Neuts (auto) 4.2 Neutrophils % 85.3 H Neutrophils % (Manual) 80.0 Band Neutrophils % 4.0 Lymphocytes % 11.4 Lymphocytes % (Manual) 10.0 D Monocytes % 1.7 L Monocytes % (Manual) 6 D Eosinophils % 1.3 D Basophils % 0.3 Nucleated RBC % 3 H Hypochromia 1+ Platelet Estimate Adequate Polychromasia 1+ Anisocytosis 3+ Microcytosis 2+ Macrocytosis 1+ PTT (Actin FS) Anticoagulation Therapy Puncture Site ABG pH ABG pCO2 at Pt Temp ABG pO2 at Pt Temp ABG HCO3 ABG O2 Sat (Measured) ABG O2 Content ABG Base Excess Vinny Test O2 Delivery Device Oxygen Flow Rate Vent Mode Vent Rate Mechanical Rate PEEP Pressure Support Vent Sodium Potassium Chloride Carbon Dioxide Anion Gap BUN Creatinine Creat Clearance w eGFR Random Glucose Calcium Phosphorus Magnesium Total Bilirubin AST ALT Alkaline Phosphatase Total Protein Albumin Blood Type B POSITIVE Antibody Screen Negative Crossmatch See Detail 02/27/18 02/27/18 02/27/18 05:30 05:30 07:00 WBC RBC Hgb Hct MCV MCH MCHC RDW Plt Count MPV Absolute Neuts (auto) Neutrophils % Neutrophils % (Manual) Band Neutrophils % Lymphocytes % Lymphocytes % (Manual) Monocytes % Monocytes % (Manual) Eosinophils % Basophils % Nucleated RBC % Hypochromia Platelet Estimate Polychromasia Anisocytosis Microcytosis Macrocytosis PTT (Actin FS) 28.9 Anticoagulation Therapy No Result Required. Puncture Site Right radial ABG pH 7.50 H ABG pCO2 at Pt Temp 29.8 L ABG pO2 at Pt Temp 95.7 ABG HCO3 22.8 ABG O2 Sat (Measured) 97.9 ABG O2 Content 4.6 L* ABG Base Excess -0.3 Vinny Test Positive O2 Delivery Device Alcprvc Oxygen Flow Rate 40% Vent Mode No Result Required. Vent Rate No Result Required. Mechanical Rate No Result Required. PEEP 5.0 Pressure Support Vent 500 Sodium 152 H Potassium 5.1 Chloride 122 H Carbon Dioxide 23 Anion Gap 6 L BUN 92 H Creatinine 2.7 H Creat Clearance w eGFR 22.91 Random Glucose 106 Calcium 5.6 L* Phosphorus 4.1 Magnesium 2.7 H Total Bilirubin 0.4 AST 55 H ALT 126 H Alkaline Phosphatase 76 Total Protein 9.2 H Albumin 1.2 L Blood Type Antibody Screen Crossmatch ASSESSMENT AND PLAN: Acute Hypoxic Respiratory Failure Altered Mental Status Metabolic Encephalopathy Pneumonia Acalculous Cholecystitis Multiple Myeloma Acute on Chronic Renal Failure Metabolic Acidosis LV Diastolic Dysfunction Atrial Fibrillation CAD +Troponins likely Demand Ischemia PAD Hyperlipidemia HTN - continue antibiotics per ID - monitor urine output, creatinine - rate control - Normal transfusion thresholds - Minimize sedation to assess mental status - spontaneous breathing trials as tolerated - DVT/GI prophylaxis - continue discussions regarding goals of care: Compassionate extubation versus Tracheostomy - palliative care involved - continue ICU monitoring - grave overall prognosis Dr Walker Critical care time spent in reviewing chart, evaluating patient and formulating plan 35 min
--- NOTE | 2018-02-27 12:03 | PN ---
Physical Exam: SUBJECTIVE: Patient seen and examined in the ICU. Remains intubated and sedated. Intermittent fever. No gross change in overall mental status. GOC/ family meeting initiated and ongoing. noted to have intermittent episodes of V- tach. Heparin on hold related to dropping Hg, transfusing 1 u prbc OBJECTIVE: Vital Signs Period Temp Pulse Resp BP Sys/Ariza Pulse Ox Last 24 Hr 99.6 F-100.9 F 104-129 14-19 94-111/59-84 98 GENERAL: The patient is intubated and sedated. HEAD: NCAT EYES: sclera anicteric. ENT: Ears normal, nares patent, dry mucous membranes NECK: Trachea midline. LUNGS: bilateral diffuse rhonchi HEART: Tachycardic rate and irregular rhythm. ABDOMEN: Soft, nondistended. EXTREMITIES: 2+ pulses, warm, well-perfused, no edema, scattered ulcers. NEUROLOGICAL: Cannot assess secondary to clinical condition. SKIN: Warm, dry, normal turgor, scattered ulcers on the legs Laboratory Results - last 24 hr 02/24/18 02/26/18 02/27/18 08:05 16:00 05:30 WBC 4.9 5.7 RBC 2.71 L 2.52 L Hgb 8.4 L 7.5 L Hct 24.5 L 23.3 L MCV 90.5 92.4 MCH 31.2 29.7 MCHC 34.4 32.1 RDW 16.5 H 16.1 H Plt Count 187 167 MPV 8.7 9.1 Absolute Neuts (auto) 4.2 Neutrophils % 85.3 H Neutrophils % (Manual) 80.0 Band Neutrophils % 4.0 Lymphocytes % 11.4 Lymphocytes % (Manual) 10.0 D Monocytes % 1.7 L Monocytes % (Manual) 6 D Eosinophils % 1.3 D Basophils % 0.3 Nucleated RBC % 3 H Hypochromia 1+ Platelet Estimate Adequate Polychromasia 1+ Anisocytosis 3+ Microcytosis 2+ Macrocytosis 1+ PTT (Actin FS) Anticoagulation Therapy Puncture Site ABG pH ABG pCO2 at Pt Temp ABG pO2 at Pt Temp ABG HCO3 ABG O2 Sat (Measured) ABG O2 Content ABG Base Excess Vinny Test O2 Delivery Device Oxygen Flow Rate Vent Mode Vent Rate Mechanical Rate PEEP Pressure Support Vent Sodium Potassium Chloride Carbon Dioxide Anion Gap BUN Creatinine Creat Clearance w eGFR Random Glucose Calcium Phosphorus Magnesium Total Bilirubin AST ALT Alkaline Phosphatase Total Protein Albumin Blood Type B POSITIVE Antibody Screen Negative Crossmatch See Detail 02/27/18 02/27/18 02/27/18 05:30 05:30 07:00 WBC RBC Hgb Hct MCV MCH MCHC RDW Plt Count MPV Absolute Neuts (auto) Neutrophils % Neutrophils % (Manual) Band Neutrophils % Lymphocytes % Lymphocytes % (Manual) Monocytes % Monocytes % (Manual) Eosinophils % Basophils % Nucleated RBC % Hypochromia Platelet Estimate Polychromasia Anisocytosis Microcytosis Macrocytosis PTT (Actin FS) 28.9 Anticoagulation Therapy No Result Required. Puncture Site Right radial ABG pH 7.50 H ABG pCO2 at Pt Temp 29.8 L ABG pO2 at Pt Temp 95.7 ABG HCO3 22.8 ABG O2 Sat (Measured) 97.9 ABG O2 Content 4.6 L* ABG Base Excess -0.3 Vinny Test Positive O2 Delivery Device Alcprvc Oxygen Flow Rate 40% Vent Mode No Result Required. Vent Rate No Result Required. Mechanical Rate No Result Required. PEEP 5.0 Pressure Support Vent 500 Sodium 152 H Potassium 5.1 Chloride 122 H Carbon Dioxide 23 Anion Gap 6 L BUN 92 H Creatinine 2.7 H Creat Clearance w eGFR 22.91 Random Glucose 106 Calcium 5.6 L* Phosphorus 4.1 Magnesium 2.7 H Total Bilirubin 0.4 AST 55 H ALT 126 H Alkaline Phosphatase 76 Total Protein 9.2 H Albumin 1.2 L Blood Type Antibody Screen Crossmatch Active Medications Generic Name Dose Route Start Last Admin Trade Name Freq PRN Reason Stop Dose Admin Acetaminophen 650 mg 02/17/18 14:09 02/23/18 16:25 Tylenol - PO 650 mg Q6H PRN Administration PAIN LEVEL 1 - 3 Acetaminophen 650 mg 02/22/18 15:54 Tylenol Suppository - RC Q6H PRN FEVER Allopurinol 100 mg 02/16/18 10:00 02/27/18 09:48 Zyloprim - PO 100 mg BID [facility] Administration Chlorhexidine Gluconate 15 ml 02/17/18 23:45 02/27/18 09:47 Peridex - MM 15 ml BID [facility] Administration Cholecalciferol 1,000 unit 02/25/18 10:00 02/27/18 09:48 Vitamin D3 - PO 1,000 unit DAILY [facility] Administration Diphenhydramine HCl 25 mg 02/16/18 12:00 Benadryl Injection - IVPB ONCE PRN DURING PLASMAPHERESIS Heparin Sodium (Porcine) 1,000 unit 02/23/18 15:20 Heparin - IVPUSH PRN PRN Heparin Heparin Sodium (Porcine) 5,000 unit 02/23/18 15:20 Heparin - IVPUSH PRN PRN Heparin Metronidazole 500 mg in 100 mls @ 100 mls/hr 02/24/18 14:30 02/27/18 09:44 Flagyl 500mg Premixed Ivpb - IVPB 100 mls/hr BID [facility] Administration Sodium Chloride 1,000 mls @ 75 mls/hr 02/26/18 11:30 02/26/18 13:39 1/2 Normal Saline IV 75 mls/hr ASDIR [facility] Administration Levofloxacin 250 mg in 50 mls @ 50 mls/hr 02/26/18 12:45 02/27/18 09:54 Levaquin 250 Mg Premixed Ivpb - IVPB 50 mls/hr DAILY [facility] Administration Protocol Lactulose 20 gm 02/16/18 09:38 02/27/18 05:48 Cephulac (Oral Use) PO 20 gm TID [facility] Administration Metoprolol Tartrate 5 mg 02/16/18 13:04 Lopressor Injection - IVPUSH Q8H PRN TACHYCARDIA Metoprolol Tartrate 75 mg 02/23/18 08:30 02/27/18 09:48 Lopressor - PO Not Given BID [facility]LLY Pantoprazole Sodium 40 mg 02/14/18 12:00 02/27/18 09:45 Protonix Iv IVPUSH 40 mg DAILY [facility] Administration Rifaximin 550 mg 02/22/18 22:00 02/27/18 09:48 Xifaxan - PO 550 mg BID [facility] Administration Thiamine HCl 100 mg 02/06/18 22:12 02/27/18 09:48 Vitamin B1 - PO 100 mg DAILY [facility] Administration ASSESSMENT/PLAN: 77 yo m PMH of A-Fib, Acute on chronic kidney injury, CAD w stents, hypercalcemia, medication non-adherence, paraproteinemia, thromboembolic disease , diastolic heart dysfunction without failure, HTN, HLD, hypertrophic cardiomyopathy is here after a rapid response. He was on the floors when it was noticed that he has respiratory insufficiency and was desaturating, requiring ICU monitoring. GOC/family meeting initiated and ongoing. GI: metabolic encephalopathy -ammonia improving w/ lactulose and rifaximin -LFTs are also elevated but downtrending. transamintitis most likely secondary to ischemic hepatits which is multifactorial including sepsis, episodes of hypotension and hyperviscosity syndrome. acalculous cholecystitis? US shows thickened gallbladder wall, pericholecystic fluid, suspicious for acalculous cholecystitis. There was also mild dilatation of the CBD but that might be normal for age. -Spoke w/ IR, who feel image does not represent acalculous cholecystitisand does not require any IR drainage ID: continues to spike fevers - Rhonchi heard on Lung auscultation -RLL pneumonia f/u cx off of ceftazidime Vancomycin Redosed - c/w levaquin/flagyl. - ID on board - c/w rifaximin for elevated ammonia level Cardio: Afib -[id number] score of 6 - Lopressor 75 mg BID PO -IV metoprolol 5 mg PRN - diastolic dysfunction + hypertrophic cardiomyopathy - CAD with multiple stents - Cardio consulted and on board. off Xarelto 15 qd (renal dosing) while on heparin gtt. transfuse to maintain Hgb >8.0 Heparin on hold related to dropping Hg, transfusing 1 u prbc - Sporadically goes in and out of V-Tach - noted to have intermittent episodes of V-tach this AM. surya wright, [place] repleted. spoke to cardio nothing to do at this point due to pt extensive cardiac disease. Can give amio if v-tach is sustained and persistent. Pulm: - Intubated - Patient has b/l pleural effusions. - No pneumothorax - b/l diffuse rhonchi - infiltrate on CXR: Abx- Substitute levaquin for ceftazidime Vancomycin Redosed - c/w levaquin/flagyl. Renal: - Acute on Chronic kidney injury MELITA ATN vs. 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 tubular injury, US showed no stones or obstruction, UA w/o protein but UPCR ~0.5 indicating non- albumin proteinuria) - Renal consulted and on board. Hyperkalemia (r/o tumor lysis) serum K is improved, s/p bicarb gtt hypotonic saline with dextrose, can dc IVF if pt is tolerating feeds with free water Neuro: - Patient is not alert or oriented. - Head CT showed no acute pathology - Neuro consulted and on board. (Dr. Kuo + Dr. mejia) - Ammonia elevated - Patient receiving lactulose - c/w rifaximin for elevated ammonia. Heme/Onc: - monitor H/H - Will transfuse to keep hb > 8 - Patient not receiving plasmapharesis today. - Paraproteinemia - Patient fulfills new criteria for multiple myeloma with free kappa/ free lambda light chain ratio of 432 (>100 is diagnostic of myeloma) - [place]/Lambda ratio > 100 consistent with Multiple myeloma - M spike elevated elevated at 6.8 previously 4.7 -steroids being held at this time Endo: - Parathyroid hormone WNL - PTH-borderline low appropriate given hypercalcemia, PTHrP low Prophylaxis: - Heparin on hold related to dropping Hg, transfusing 1 u prbc - Protonix F/E/N: F: hypotonic saline with dextrose, can dc IVF if pt is tolerating feeds with free water E: Will replete lytes PRN N: tube feeds (low potassium feeds). consider increasing free water as pt remains hypernatremic Code Status: Full Code - GOC/family meeting initiated and ongoing. - Compassionate extubation versus Tracheostomy Dispo: Patient will continue to receive ICU level care Visit type - Emergency Visit Emergency Visit: Yes ED Registration Date: 02/06/18 Care time: The patient presented to the Emergency Department on the above date and was hospitalized for further evaluation of their emergent condition. - New Patient This patient is new to me today: Yes Date on this admission: 02/27/18 - Critical Care Critical Care patient: Yes Total Critical Care Time (in minutes): 38 Critical Care Statement: The care of this patient involved high complexity decision making to prevent further life threatening deterioration of the patient 's condition and/or to evaluate & treat vital organ system(s) failure or risk of failure.
--- NOTE | 2018-02-27 13:35 | PN ---
Progress Note (short form) - Note Progress Note: [facility]. Patient remains intubated with minimal sedation, however no gross change in overall mental status. Patient has had intermittent fevers. Overnight patient's hemoglobin dropped to <8.0 and is now receiving 1 unit of PRBC. Ongoing discussion of GOC with family. Vital Signs Temperature 99.6 F 02/27/18 06:00 Pulse Rate 109 H 02/27/18 12:00 Respiratory Rate 14 02/27/18 12:00 Blood Pressure 101/78 02/27/18 12:00 O2 Sat by Pulse Oximetry (%) 98 02/26/18 20:00 GENERAL: Intubated and sedated ENT: Dry mucous membranes LUNGS: bilateral diffuse rhonchi HEART: Tachycardic rate and irregular rhythm. ABDOMEN: Soft, nondistended, normoactive bowel sounds EXTREMITIES: No edema, scattered ulcers. NEUROLOGICAL: Cannot assess secondary to clinical condition. SKIN: Warm, dry, normal turgor, scattered ulcers on the legs Laboratory Results 02/27/18 05:30 02/27/18 05:30 02/27/18 05:30 Calcium 5.6 L* Phosphorus 4.1 Magnesium 2.7 H AST 55 H ALT 126 H Total Protein 9.2 H Albumin 1.2 L Patient is a 77 year old male who presented to the hospital after being found unresponsive by his neighbors. Patient had AMS, MELITA, hypercalcemia and admitted for further monitoring and management. Problem List: Altered mental status Toxic metabolic encephalopathy Hypercalcemia likely from malignancy MELITA on CKD History of alcohol abuse HTN HLD CAD Afib diastolic dysfunction troponinemia Hypertrophic cardiomypoathy (apical) sepsis secondary to RLL pneumonia acute hypoxemic respiratory failure Vitamin D deficiency multiple myeloma Plan: -Patient currently being transfused due to hgb <8 -Continues to have elevated creatinine and now with hypocalcemia -S/p plasmapheresis and 5 days of dex with no improvement in mental status. -SPEP noted total protein and globulins elevated -[place]/Lambda ratio > 100 consistent with Multiple myeloma -ABx per ID -replete calcium per ICU -Palliative consult to discuss goals of care with family
--- NOTE | 2018-02-27 19:25 | PN ---
Progress Note (short form) - Note Progress Note: Chart/hx. reviewed, recent events noted. Pt. is intubated, non-verbal, to painful stimulii vinces minimally. CN- + response to visual threat bilaterally, unable to track examiner. _ bilat.corneal reflexes+cervicocilliarry reflex. No Dol's eye movements elicited as pt. is awake. -Mr. Patterson is responding to visual threat-is able to perceive visual stimulii and brain stem fx. is present. even though he has cerebral function present his prognosis for meaningful neurologic recovery is guarded.
[2018-02-27] MEDS: SODIUM CHLORIDE 0.45% 1,000 ML IV SCH (19:30)
[2018-02-27] MEDS: METOPROLOL TARTRATE 5 MG/5 ML VIAL IVPUSH PRN (19:38)
[2018-02-28 06:25] LABS: BASO % 0.3 % (0-2.0); EOS % 2.6 % (0-4.5); HEMATOCRIT 27.2 % (35.4-49); HEMOGLOBIN 8.8 GM/dL (11.7-16.9); LYMPH % 13.3 % (8-40); MCH 30.1 pg (25.7-33.7); MCHC 32.3 g/dl (32.0-35.9); MEAN CELL VOLUME 93.2 fl (80-96); MEAN PLT VOLUME 9.4 fl (7.5-11.1); MONO % 2.3 % (3.8-10.2); NEUT % 81.5 % (42.8-82.8); PLATELET COUNT 163 K/MM3 (134-434); RBC 2.91 M/mm3 (4.00-5.60); RDW 16.5 % (11.9-15.9); WHITE BLOOD COUNT 5.5 K/mm3 (4.0-10.0)
[2018-02-28] MEDS: LACTULOSE 20 GM/30 ML UDC (FOR ORAL USE ONLY) PO SCH ×3 (06:28→21:56)
[2018-02-28] MEDS: SODIUM CHLORIDE 0.45% 1,000 ML IV SCH (06:28)
[2018-02-28 07:31] LABS: ARTERIAL BLD GAS O2 SATURATION 95.5 % (90-98.9); ARTERIAL BLOOD GAS BASE EXCESS -3.8 meq/l (-2-2); ARTERIAL BLOOD GAS PCO2 30.7 mmHg (35-45); ARTERIAL BLOOD GAS PO2 87.6 mmHg (70-100); ARTERIAL BLOOD GAS pH 7.42 (7.35-7.45)
[2018-02-28 07:34] LABS: ALLENS TEST POSITIVE
[2018-02-28 07:43] LABS: ALBUMIN 1.2 g/dl (3.4-5.0); ALK PHOS 111 U/L (45-117); ANION GAP 5 MMOL/L (8-16); BILIRUBIN,TOTAL 0.4 mg/dL (0.2-1); BLOOD UREA NITROGEN 83 mg/dL (7-18); CHLORIDE 120 mmol/L (98-107); CO2 23 mmol/L (21-32); CREATININE 2.6 mg/dL (0.55-1.3); GLUCOSE,RANDOM 130 mg/dL (74-106); MAGNESIUM 2.6 mg/dL (1.8-2.4); POTASSIUM 5.1 mmol/L (3.5-5.1); SGOT/AST 82 U/L (15-37); SGPT/ALT 114 U/L (13-61); SODIUM 148 mmol/L (136-145); TOT PROT 9.6 g/dl (6.4-8.2)
[2018-02-28 08:15] LABS: CALCIUM 5.9 mg/dL (8.5-10.1)
[2018-02-28] MEDS ORDERED: CALCIUM GLUCONATE 10% - 1,000 MG/10 ML VIAL IVPB ONE (08:45)
[2018-02-28] MEDS: CHLORHEXIDINE GLUCONATE 0.12% 15ML CUP MM SCH ×2 (10:08→21:57)
[2018-02-28] MEDS: PANTOPRAZOLE SODIUM 40 MG VIAL IVPUSH SCH (10:08)
[2018-02-28] MEDS: METOPROLOL TARTRATE 50 MG TABLET (FP) PO SCH ×2 (10:09→21:57)
[2018-02-28] MEDS: CHOLECALCIFEROL (VITAMIN D3) 1,000 UNIT TABLET (FP) PO SCH (10:09)
[2018-02-28] MEDS: RIFAXIMIN 550 MG TABLET (UD) PO SCH ×2 (10:09→21:57)
[2018-02-28] MEDS: THIAMINE HCL 100 MG TABLET (FP) PO SCH (10:09)
[2018-02-28] MEDS: ALLOPURINOL 100 MG TABLET (FP) PO SCH ×2 (10:09→21:59)
--- NOTE | 2018-02-28 11:50 | PN ---
Progress Note, Physician History of Present Illness: Unresponsive on ventilator temps down WBC WNL Repeat BC no growth - Current Medication List Current Medications: Active Medications Acetaminophen (Tylenol -) 650 mg PO Q6H PRN PRN Reason: PAIN LEVEL 1 - 3 Last Admin: 02/23/18 16:25 Dose: 650 mg Acetaminophen (Tylenol Suppository -) 650 mg RC Q6H PRN PRN Reason: FEVER Allopurinol (Zyloprim -) 100 mg PO BID [facility] Last Admin: 02/28/18 10:09 Dose: 100 mg Chlorhexidine Gluconate (Peridex -) 15 ml MM BID [facility] Last Admin: 02/28/18 10:08 Dose: 15 ml Cholecalciferol (Vitamin D3 -) 1,000 unit PO DAILY [facility] Last Admin: 02/28/18 10:09 Dose: 1,000 unit Diphenhydramine HCl (Benadryl Injection -) 25 mg IVPB ONCE PRN PRN Reason: DURING PLASMAPHERESIS Heparin Sodium (Porcine) (Heparin -) 1,000 unit IVPUSH PRN PRN PRN Reason: Heparin Heparin Sodium (Porcine) (Heparin -) 5,000 unit IVPUSH PRN PRN PRN Reason: Heparin Metronidazole (Flagyl 500mg Premixed Ivpb -) 500 mg in 100 mls @ 100 mls/hr IVPB BID [facility] Last Admin: 02/28/18 10:07 Dose: 100 mls/hr Sodium Chloride (1/2 Normal Saline) 1,000 mls @ 75 mls/hr IV ASDIR [facility] Last Admin: 02/28/18 06:28 Dose: 75 mls/hr Levofloxacin (Levaquin 250 Mg Premixed Ivpb -) 250 mg in 50 mls @ 50 mls/hr IVPB DAILY [facility]; Protocol Last Admin: 02/28/18 10:08 Dose: 50 mls/hr Lactulose (Cephulac (Oral Use)) 20 gm PO TID [facility] Last Admin: 02/28/18 06:28 Dose: 20 gm Metoprolol Tartrate (Lopressor Injection -) 5 mg IVPUSH Q8H PRN PRN Reason: TACHYCARDIA Last Admin: 02/27/18 19:38 Dose: 5 mg Metoprolol Tartrate (Lopressor -) 75 mg PO BID [facility] Last Admin: 02/28/18 10:09 Dose: 75 mg Pantoprazole Sodium (Protonix Iv) 40 mg IVPUSH DAILY [facility] Last Admin: 02/28/18 10:08 Dose: 40 mg Rifaximin (Xifaxan -) 550 mg PO BID [facility] Last Admin: 02/28/18 10:09 Dose: 550 mg Thiamine HCl (Vitamin B1 -) 100 mg PO DAILY [facility] Last Admin: 02/28/18 10:09 Dose: 100 mg - Objective Vital Signs: Vital Signs Temperature 98.9 F 02/28/18 10:00 Pulse Rate 114 H 02/28/18 10:00 Respiratory Rate 18 02/28/18 11:27 Blood Pressure 111/72 02/28/18 10:00 O2 Sat by Pulse Oximetry (%) 97 02/28/18 08:45 Constitutional: Yes: No Distress Cardiovascular: Yes: Regular Rate and Rhythm, S1, S2 Respiratory: Yes: Mechanically Ventilated Gastrointestinal: Yes: Normal Bowel Sounds, Soft. No: Tenderness Edema: Yes Labs: CBC, BMP 02/28/18 05:30 02/28/18 05:30 INR, PTT INR 1.28 (0.83-1.09) H 02/22/18 05:30 Fibrinogen 290.0 mg/dL (238-498) 02/18/18 06:00 Assessment/Plan Respiratory failure RLL pneumonia Acalculus Cholecystitis Toxic metabolic encephalopathy Hypercalcemia Renal failure Myeloma Hyperviscosity syndrome Continue levaquin/ flagyl Ventilatory support Prognosis poor
[2018-02-28] MEDS ORDERED: HEPARIN NA (PORCINE) 5,000 UNITS/ML 1ML VIAL IVPUSH PRN ×2 (12:23)
--- NOTE | 2018-02-28 12:33 | PN ---
Teaching Attending Note Name of Resident: Bola Griffith ATTENDING PHYSICIAN STATEMENT I saw and evaluated the patient. I reviewed the resident's note and discussed the case with the resident. I agree with the resident's findings and plan as documented. SUBJECTIVE: Pt seen and examined in the ICU. Remains intubated, poorly responsive off sedation. No pressors. Vented on volume assist control with 40% FiO2. Awaiting decision from family but have been difficult to contact. OBJECTIVE: Vital Signs Period Temp Pulse Resp BP Sys/Ariza Pulse Ox Last 24 Hr 98.7 F-100.1 F 87-136 14-19 81-111/54-74 97-98 Intake & Output 02/25/18 02/26/18 02/27/18 02/28/18 23:59 23:59 23:59 23:59 Intake Total 1300 2900 3900 2140 Output Total 1800 1500 1200 300 Balance -500 1400 2700 1840 Weight 80.921 kg 81.737 kg 81.737 kg 84.051 kg Gen: intubated, poorly responsive Heart: RRR Lung: scattered rhonchi Abd: soft, nontender Ext: no edema CBC, BMP 02/28/18 05:30 02/28/18 05:30 Active Medications Acetaminophen (Tylenol -) 650 mg PO Q6H PRN PRN Reason: PAIN LEVEL 1 - 3 Last Admin: 02/23/18 16:25 Dose: 650 mg Acetaminophen (Tylenol Suppository -) 650 mg RC Q6H PRN PRN Reason: FEVER Allopurinol (Zyloprim -) 100 mg PO BID [facility] Last Admin: 02/28/18 10:09 Dose: 100 mg Chlorhexidine Gluconate (Peridex -) 15 ml MM BID [facility] Last Admin: 02/28/18 10:08 Dose: 15 ml Cholecalciferol (Vitamin D3 -) 1,000 unit PO DAILY [facility] Last Admin: 02/28/18 10:09 Dose: 1,000 unit Diphenhydramine HCl (Benadryl Injection -) 25 mg IVPB ONCE PRN PRN Reason: DURING PLASMAPHERESIS Heparin Sodium (Porcine) (Heparin -) 1,000 unit IVPUSH PRN PRN PRN Reason: Heparin Heparin Sodium (Porcine) (Heparin -) 5,000 unit IVPUSH PRN PRN PRN Reason: Heparin Metronidazole (Flagyl 500mg Premixed Ivpb -) 500 mg in 100 mls @ 100 mls/hr IVPB BID [facility] Last Admin: 02/28/18 10:07 Dose: 100 mls/hr Sodium Chloride (1/2 Normal Saline) 1,000 mls @ 75 mls/hr IV ASDIR [facility] Last Admin: 02/28/18 06:28 Dose: 75 mls/hr Levofloxacin (Levaquin 250 Mg Premixed Ivpb -) 250 mg in 50 mls @ 50 mls/hr IVPB DAILY [facility]; Protocol Last Admin: 02/28/18 10:08 Dose: 50 mls/hr HEPARIN SOD,PORK IN 0.45% NACL (Heparin-1/2ns 25,000 Units/500) 25,000 units in 500 mls @ 20 mls/hr IVPB TITR [facility]; Protocol Lactulose (Cephulac (Oral Use)) 20 gm PO TID [facility] Last Admin: 02/28/18 06:28 Dose: 20 gm Metoprolol Tartrate (Lopressor Injection -) 5 mg IVPUSH Q8H PRN PRN Reason: TACHYCARDIA Last Admin: 02/27/18 19:38 Dose: 5 mg Metoprolol Tartrate (Lopressor -) 75 mg PO BID [facility] Last Admin: 02/28/18 10:09 Dose: 75 mg Pantoprazole Sodium (Protonix Iv) 40 mg IVPUSH DAILY [facility] Last Admin: 02/28/18 10:08 Dose: 40 mg Rifaximin (Xifaxan -) 550 mg PO BID [facility] Last Admin: 02/28/18 10:09 Dose: 550 mg Thiamine HCl (Vitamin B1 -) 100 mg PO DAILY [facility] Last Admin: 02/28/18 10:09 Dose: 100 mg ASSESSMENT AND PLAN: Acute Hypoxic Respiratory Failure Altered Mental Status Metabolic Encephalopathy Pneumonia Acalculous Cholecystitis Multiple Myeloma Acute on Chronic Renal Failure Metabolic Acidosis LV Diastolic Dysfunction Atrial Fibrillation CAD +Troponins likely Demand Ischemia PAD Hyperlipidemia HTN - continue antibiotics per ID - monitor urine output, creatinine - rate control - minimize sedation to assess mental status - spontaneous breathing trials as tolerated but would not extubate unless mental status improved - DVT/GI prophylaxis - continue discussions regarding goals of care, if unable to reach family will need tracheostomy as he is approaching 3 weeks intubated - palliative care input appreciated - continue ICU monitoring - poor overall prognosis for meaningful recovery critical care time spent in reviewing chart, evaluating patient and formulating plan 35 min
[2018-02-28 12:59] LABS: ANISOCYTOSIS 1+; MACROCYTOSIS 1+
--- NOTE | 2018-02-28 14:16 | PN ---
Physical Exam: SUBJECTIVE: Patient seen and examined in the ICU. Remains intubated, poorly responsive off sedation. low grade fever overnight. No gross change in overall mental status. No pressors. GOC/family meeting initiated and ongoing. s/p 1 u prbc OBJECTIVE: Vital Signs Period Temp Pulse Resp BP Sys/Ariza Pulse Ox Last 24 Hr 98.9 F-100.1 F 87-136 14-19 81-111/54-74 97-98 GENERAL: Remains intubated, poorly responsive off sedation HEAD: NCAT EYES: sclera anicteric. ENT: Ears normal, nares patent, dry mucous membranes NECK: Trachea midline. LUNGS: bilateral diffuse rhonchi HEART: Tachycardic rate and irregular rhythm. ABDOMEN: Soft, nondistended. EXTREMITIES: 2+ pulses, warm, well-perfused, no edema, scattered ulcers. NEUROLOGICAL: Cannot assess secondary to clinical condition. SKIN: Warm, dry, normal turgor, scattered ulcers on the legs Laboratory Results - last 24 hr 02/28/18 02/28/18 02/28/18 05:30 05:30 05:30 WBC 5.5 RBC 2.91 L Hgb 8.8 L Hct 27.2 L D MCV 93.2 MCH 30.1 MCHC 32.3 RDW 16.5 H Plt Count 163 MPV 9.4 Absolute Neuts (auto) 4.5 Neutrophils % 81.5 Neutrophils % (Manual) 83.2 H Band Neutrophils % 4.2 Lymphocytes % 13.3 Lymphocytes % (Manual) 9.5 Monocytes % 2.3 L Monocytes % (Manual) 0 L D Eosinophils % 2.6 D Eosinophils % (Manual) 2.1 D Basophils % 0.3 Basophils % (Manual) 0.0 Myelocytes % (Man) 1 D Promyelocytes % (Man) 0 Blast Cells % (Manual) 0 Nucleated RBC % 6 H Metamyelocytes 0 Anisocytosis 1+ Macrocytosis 1+ PTT (Actin FS) 29.1 Puncture Site ABG pH ABG pCO2 at Pt Temp ABG pO2 at Pt Temp ABG HCO3 ABG O2 Sat (Measured) ABG O2 Content ABG Base Excess Vinny Test O2 Delivery Device Oxygen Flow Rate PEEP Sodium 148 H Potassium 5.1 Chloride 120 H Carbon Dioxide 23 Anion Gap 5 L BUN 83 H Creatinine 2.6 H Creat Clearance w eGFR 23.93 Random Glucose 130 H Calcium 5.9 L* Phosphorus 5.0 H Magnesium 2.6 H Total Bilirubin 0.4 AST 82 H ALT 114 H Alkaline Phosphatase 111 Total Protein 9.6 H Albumin 1.2 L 02/28/18 07:20 WBC RBC Hgb Hct MCV MCH MCHC RDW Plt Count MPV Absolute Neuts (auto) Neutrophils % Neutrophils % (Manual) Band Neutrophils % Lymphocytes % Lymphocytes % (Manual) Monocytes % Monocytes % (Manual) Eosinophils % Eosinophils % (Manual) Basophils % Basophils % (Manual) Myelocytes % (Man) Promyelocytes % (Man) Blast Cells % (Manual) Nucleated RBC % Metamyelocytes Anisocytosis Macrocytosis PTT (Actin FS) Puncture Site Right radial ABG pH 7.42 ABG pCO2 at Pt Temp 30.7 L ABG pO2 at Pt Temp 87.6 ABG HCO3 19.5 L ABG O2 Sat (Measured) 95.5 ABG O2 Content 12.5 L ABG Base Excess -3.8 L Vinny Test Positive O2 Delivery Device A-c Oxygen Flow Rate Yes PEEP 10.0 Sodium Potassium Chloride Carbon Dioxide Anion Gap BUN Creatinine Creat Clearance w eGFR Random Glucose Calcium Phosphorus Magnesium Total Bilirubin AST ALT Alkaline Phosphatase Total Protein Albumin Active Medications Generic Name Dose Route Start Last Admin Trade Name Freq PRN Reason Stop Dose Admin Acetaminophen 650 mg 02/17/18 14:09 02/23/18 16:25 Tylenol - PO 650 mg Q6H PRN Administration PAIN LEVEL 1 - 3 Acetaminophen 650 mg 02/22/18 15:54 Tylenol Suppository - RC Q6H PRN FEVER Allopurinol 100 mg 02/16/18 10:00 02/28/18 10:09 Zyloprim - PO 100 mg BID CHELLY Administration Chlorhexidine Gluconate 15 ml 02/17/18 23:45 02/28/18 10:08 Peridex - MM 15 ml BID CHELLY Administration Cholecalciferol 1,000 unit 02/25/18 10:00 02/28/18 10:09 Vitamin D3 - PO 1,000 unit DAILY CHELLY Administration Diphenhydramine HCl 25 mg 02/16/18 12:00 Benadryl Injection - IVPB ONCE PRN DURING PLASMAPHERESIS Heparin Sodium (Porcine) 1,000 unit 02/28/18 12:23 Heparin - IVPUSH PRN PRN Heparin Heparin Sodium (Porcine) 5,000 unit 02/28/18 12:23 Heparin - IVPUSH PRN PRN Heparin Metronidazole 500 mg in 100 mls @ 100 mls/hr 02/24/18 14:30 02/28/18 10:07 Flagyl 500mg Premixed Ivpb - IVPB 100 mls/hr BID CHELLY Administration Sodium Chloride 1,000 mls @ 75 mls/hr 02/26/18 11:30 02/28/18 06:28 1/2 Normal Saline IV 75 mls/hr ASDIR CHELLY Administration Levofloxacin 250 mg in 50 mls @ 50 mls/hr 02/26/18 12:45 02/28/18 10:08 Levaquin 250 Mg Premixed Ivpb - IVPB 50 mls/hr DAILY CHELLY Administration Protocol HEPARIN SOD,PORK IN 0.45% NACL 25,000 units in 500 mls @ 20 mls/hr 02/28/18 13 :00 Heparin-1/2ns 25,000 Units/500 IVPB TITR CHELLY Protocol 1,000 UNITS/HR Lactulose 20 gm 02/16/18 09:38 02/28/18 06:28 Cephulac (Oral Use) PO 20 gm TID CHELLY Administration Metoprolol Tartrate 5 mg 02/16/18 13:04 02/27/18 19:38 Lopressor Injection - IVPUSH 5 mg Q8H PRN Administration TACHYCARDIA Metoprolol Tartrate 75 mg 02/23/18 08:30 02/28/18 10:09 Lopressor - PO 75 mg BID CHELLY Administration Pantoprazole Sodium 40 mg 02/14/18 12:00 02/28/18 10:08 Protonix Iv IVPUSH 40 mg DAILY CHELLY Administration Rifaximin 550 mg 02/22/18 22:00 02/28/18 10:09 Xifaxan - PO 550 mg BID CHELLY Administration Thiamine HCl 100 mg 02/06/18 22:12 02/28/18 10:09 Vitamin B1 - PO 100 mg DAILY CHELLY Administration ASSESSMENT/PLAN: 77 yo m PMH of A-Fib, Acute on chronic kidney injury, CAD w stents, hypercalcemia, medication non-adherence, paraproteinemia, thromboembolic disease , diastolic heart dysfunction without failure, HTN, HLD, hypertrophic cardiomyopathy is here after a rapid response. He was on the floors when it was noticed that he has respiratory insufficiency and was desaturating, requiring ICU monitoring. GOC/family meeting initiated and ongoing. GI: metabolic encephalopathy -ammonia improving w/ lactulose and rifaximin -LFTs are also elevated but downtrending. transamintitis most likely secondary to ischemic hepatits which is multifactorial including sepsis, episodes of hypotension and hyperviscosity syndrome. acalculous cholecystitis? US shows thickened gallbladder wall, pericholecystic fluid, suspicious for acalculous cholecystitis. There was also mild dilatation of the CBD but that might be normal for age. -Spoke w/ IR, who feel image does not represent acalculous cholecystitisand does not require any IR drainage ID: low grade fever overnight. - Rhonchi heard on Lung auscultation -RLL pneumonia bcx 02/26/18 neg off of ceftazidime Vancomycin Redosed 02/26/18 - c/w levaquin/flagyl. - ID on board - c/w rifaximin for elevated ammonia level Cardio: Afib -[id number] score of 6 - Lopressor 75 mg BID PO -IV metoprolol 5 mg PRN - diastolic dysfunction + hypertrophic cardiomyopathy - CAD with multiple stents - Cardio consulted and on board. off Xarelto 15 qd (renal dosing) while on heparin gtt. transfuse to maintain Hgb >8.0 s/p 1 u prbc 02/27/18, H/H improved...will restart heparin gtt w/ close H/H monitoring - Sporadically goes in and out of V-Tach - noted to have intermittent episodes of V-tach this AM. surya nl, Ca repleted. spoke to cardio nothing to do at this point due to pt extensive cardiac disease. Can give amio if v-tach is sustained and persistent. Pulm: - Intubated - Patient has b/l pleural effusions. - No pneumothorax - b/l diffuse rhonchi - infiltrate on CXR: Abx- Substituting levaquin for ceftazidime Vancomycin Redosed 02/26/18 - c/w levaquin/flagyl. Renal: - Acute on Chronic kidney injury MELITA ATN vs. 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 tubular injury, US showed no stones or obstruction, UA w/o protein but UPCR ~0.5 indicating non- albumin proteinuria) - Renal consulted and on board. Hyperkalemia (r/o tumor lysis) serum K is improved, s/p bicarb gtt hypotonic saline, can dc IVF if pt is tolerating feeds with free water Neuro: - Patient is not alert or oriented. Remains intubated, poorly responsive off sedation - Head CT showed no acute pathology - Neuro consulted and on board. (Dr. Kuo + Dr. mejia) - Ammonia elevated - Patient receiving lactulose - c/w rifaximin for elevated ammonia. Heme/Onc: - monitor H/H - Will transfuse to keep hb > 8 - Patient not receiving plasmapharesis today. - Paraproteinemia - Patient fulfills new criteria for multiple myeloma with free kappa/ free lambda light chain ratio of 432 (>100 is diagnostic of myeloma) - [place]/Lambda ratio > 100 consistent with Multiple myeloma - M spike elevated elevated at 6.8 previously 4.7 -steroids being held at this time s/p 1 u prbc 02/27/18, H/H improved...will restart heparin gtt w/ close H/H monitoring Endo: - Parathyroid hormone WNL - PTH-borderline low appropriate given hypercalcemia, PTHrP low Prophylaxis: - s/p 1 u prbc 02/27/18, H/H improved...will restart heparin gtt w/ close H/H monitoring - Protonix F/E/N: F: hypotonic saline, can dc IVF if pt is tolerating feeds with free water E: Will replete lytes PRN N: tube feeds (low potassium feeds). consider increasing free water as pt remains hypernatremic Code Status: Full Code - GOC/family meeting initiated and ongoing. if unable to reach family will need tracheostomy as he is approaching 3 weeks intubated - Compassionate extubation versus Tracheostomy Dispo: Patient will continue to receive ICU level care Visit type - Emergency Visit Emergency Visit: Yes ED Registration Date: 02/06/18 Care time: The patient presented to the Emergency Department on the above date and was hospitalized for further evaluation of their emergent condition. - New Patient This patient is new to me today: Yes Date on this admission: 02/28/18 - Critical Care Critical Care patient: Yes Total Critical Care Time (in minutes): 39 Critical Care Statement: The care of this patient involved high complexity decision making to prevent further life threatening deterioration of the patient 's condition and/or to evaluate & treat vital organ system(s) failure or risk of failure.
--- NOTE | 2018-02-28 15:21 | PN ---
Progress Note, Physician Chief Complaint: REMAINS IN ICU INTUBATED EVENTS AND NOTES REVIEWED - Current Medication List Current Medications: Active Medications Acetaminophen (Tylenol -) 650 mg PO Q6H PRN PRN Reason: PAIN LEVEL 1 - 3 Last Admin: 02/23/18 16:25 Dose: 650 mg Acetaminophen (Tylenol Suppository -) 650 mg RC Q6H PRN PRN Reason: FEVER Allopurinol (Zyloprim -) 100 mg PO BID [facility] Last Admin: 02/28/18 10:09 Dose: 100 mg Chlorhexidine Gluconate (Peridex -) 15 ml MM BID CHELLY Last Admin: 02/28/18 10:08 Dose: 15 ml Cholecalciferol (Vitamin D3 -) 1,000 unit PO DAILY [facility] Last Admin: 02/28/18 10:09 Dose: 1,000 unit Diphenhydramine HCl (Benadryl Injection -) 25 mg IVPB ONCE PRN PRN Reason: DURING PLASMAPHERESIS Heparin Sodium (Porcine) (Heparin -) 1,000 unit IVPUSH PRN PRN PRN Reason: Heparin Heparin Sodium (Porcine) (Heparin -) 5,000 unit IVPUSH PRN PRN PRN Reason: Heparin Metronidazole (Flagyl 500mg Premixed Ivpb -) 500 mg in 100 mls @ 100 mls/hr IVPB BID CHELLY Last Admin: 02/28/18 10:07 Dose: 100 mls/hr Sodium Chloride (1/2 Normal Saline) 1,000 mls @ 75 mls/hr IV ASDIR CHELLY Last Admin: 02/28/18 06:28 Dose: 75 mls/hr Levofloxacin (Levaquin 250 Mg Premixed Ivpb -) 250 mg in 50 mls @ 50 mls/hr IVPB DAILY CHELLY; Protocol Last Admin: 02/28/18 10:08 Dose: 50 mls/hr HEPARIN SOD,PORK IN 0.45% NACL (Heparin-1/2ns 25,000 Units/500) 25,000 units in 500 mls @ 20 mls/hr IVPB TITR CHELLY; Protocol Lactulose (Cephulac (Oral Use)) 20 gm PO TID CHELLY Last Admin: 02/28/18 06:28 Dose: 20 gm Metoprolol Tartrate (Lopressor Injection -) 5 mg IVPUSH Q8H PRN PRN Reason: TACHYCARDIA Last Admin: 02/27/18 19:38 Dose: 5 mg Metoprolol Tartrate (Lopressor -) 75 mg PO BID [facility] Last Admin: 02/28/18 10:09 Dose: 75 mg Pantoprazole Sodium (Protonix Iv) 40 mg IVPUSH DAILY [facility] Last Admin: 02/28/18 10:08 Dose: 40 mg Rifaximin (Xifaxan -) 550 mg PO BID [facility] Last Admin: 02/28/18 10:09 Dose: 550 mg Thiamine HCl (Vitamin B1 -) 100 mg PO DAILY [facility] Last Admin: 02/28/18 10:09 Dose: 100 mg - Objective Vital Signs: Vital Signs Temperature 98.9 F 02/28/18 10:00 Pulse Rate 87 02/28/18 12:00 Respiratory Rate 19 02/28/18 12:00 Blood Pressure 96/67 02/28/18 12:00 O2 Sat by Pulse Oximetry (%) 97 02/28/18 08:45 Constitutional: Yes: Other Cardiovascular: Yes: Pulse Irregular Respiratory: Yes: Diminished, Mechanically Ventilated Gastrointestinal: Yes: Soft Genitourinary: Yes: Brenner Present Musculoskeletal: Yes: Muscle Weakness Integumentary: Yes: Other Neurological: Yes: Unresponsive Labs: CBC, BMP 02/28/18 05:30 02/28/18 05:30 INR, PTT INR 1.28 (0.83-1.09) H 02/22/18 05:30 Fibrinogen 290.0 mg/dL (238-498) 02/18/18 06:00 Problem List - Problems (1) MELITA (acute kidney injury) Code(s): N17.9 - ACUTE KIDNEY FAILURE, UNSPECIFIED (2) Atrial fibrillation with RVR Code(s): I48.91 - UNSPECIFIED ATRIAL FIBRILLATION (3) Hyperlipidemia Code(s): E78.5 - HYPERLIPIDEMIA, UNSPECIFIED Qualifiers: Hyperlipidemia type: pure hypercholesterolemia Qualified Code(s): E78.00 - Pure hypercholesterolemia, unspecified; E78.0 - Pure hypercholesterolemia (4) Hypothermia Code(s): T68.XXXA - HYPOTHERMIA, INITIAL ENCOUNTER Qualifiers: Encounter type: initial encounter Qualified Code(s): T68.XXXA - Hypothermia , initial encounter (5) [id number] kidney injury Code(s): N17.9 - ACUTE KIDNEY FAILURE, UNSPECIFIED; N18.9 - CHRONIC KIDNEY DISEASE, UNSPECIFIED Qualifiers: Acute renal failure type: unspecified Chronic kidney disease stage: unspecified stage Qualified Code(s): N17.9 - Acute kidney failure, unspecified ; N18.9 - Chronic kidney disease, unspecified (6) Generalized weakness Code(s): R53.1 - WEAKNESS (7) History of ETOH abuse Code(s): Z87.898 - PERSONAL HISTORY OF OTHER SPECIFIED CONDITIONS (8) Hypercalcemia Code(s): E83.52 - HYPERCALCEMIA (9) Hypertrophic cardiomyopathy Code(s): I42.2 - OTHER HYPERTROPHIC CARDIOMYOPATHY (10) Toxic metabolic encephalopathy Code(s): G92 - TOXIC ENCEPHALOPATHY (11) Sepsis Code(s): A41.9 - SEPSIS, UNSPECIFIED ORGANISM (12) Respiratory failure Code(s): J96.90 - RESPIRATORY FAILURE, UNSP, UNSP W HYPOXIA OR HYPERCAPNIA Assessment/Plan NOW VENT DEPENDENT INTUBATED FOR MANY DAYS WILL NEED TRACHEOSTOMY. IV ABX CONTINUE PER ID. 02 SUPPORT 40% O2 UNABLE TO WEAN OFF VENT. CARDIO F/U ON HEPARIN IV FOR AC. MONITOR LABS, FREQUENT TURNING AND OFF LOADING TO PREVENT SKIN BREAK DOWN NGT FEEDS, AMINO ACIDS FOR PROTEIN AND PREVENT SKIN ULCERS. ADVANCED DIRECTIVES UNCLEAR, AWAIT FAMILY DECISION AT THIS PROGNOSIS IS POOR FOR A FULL MEANINGFUL RECOVERY LABS DAILY MONITOR ELECTROLYTES. NEURO EVAL MVI/THIAMINE CONTINUE AGREE WITH PULMONARY TO DECREASE SEDATION TO EVALUATE MENTAL STATUS
--- NOTE | 2018-02-28 15:21 | PN ---
Progress Note (short form) - Note Progress Note: Renal follow up for Hypercalcemia/MELITA Pt seen and examined in the ICU on vent, no overnight events no fevers on vent getting IVF and tube feeds Vital Signs Temperature 98.9 F 02/28/18 10:00 Pulse Rate 87 02/28/18 12:00 Respiratory Rate 19 02/28/18 12:00 Blood Pressure 96/67 02/28/18 12:00 O2 Sat by Pulse Oximetry (%) 97 02/28/18 08:45 Intake & Output 02/25/18 02/26/18 02/27/18 02/28/18 23:59 23:59 23:59 23:59 Intake Total 1300 2900 3900 2140 Output Total 1800 1500 1200 300 Balance -500 1400 2700 1840 Weight 80.921 kg 81.737 kg 81.737 kg 84.051 kg NAD on vent via ET tube tachycardic dec BS, no rales No bladder distension No LE edema CBC, BMP 02/28/18 05:30 02/28/18 05:30 Current Medications Acetaminophen (Tylenol -) 650 mg PO Q6H PRN PRN Reason: PAIN LEVEL 1 - 3 Last Admin: 02/23/18 16:25 Dose: 650 mg Acetaminophen (Tylenol Suppository -) 650 mg RC Q6H PRN PRN Reason: FEVER Allopurinol (Zyloprim -) 100 mg PO BID [facility] Last Admin: 02/28/18 10:09 Dose: 100 mg Chlorhexidine Gluconate (Peridex -) 15 ml MM BID [facility] Last Admin: 02/28/18 10:08 Dose: 15 ml Cholecalciferol (Vitamin D3 -) 1,000 unit PO DAILY [facility] Last Admin: 02/28/18 10:09 Dose: 1,000 unit Diphenhydramine HCl (Benadryl Injection -) 25 mg IVPB ONCE PRN PRN Reason: DURING PLASMAPHERESIS Heparin Sodium (Porcine) (Heparin -) 1,000 unit IVPUSH PRN PRN PRN Reason: Heparin Heparin Sodium (Porcine) (Heparin -) 5,000 unit IVPUSH PRN PRN PRN Reason: Heparin Metronidazole (Flagyl 500mg Premixed Ivpb -) 500 mg in 100 mls @ 100 mls/hr IVPB BID [facility] Last Admin: 02/28/18 10:07 Dose: 100 mls/hr Sodium Chloride (1/2 Normal Saline) 1,000 mls @ 75 mls/hr IV ASDIR CHELLY Last Admin: 02/28/18 06:28 Dose: 75 mls/hr Levofloxacin (Levaquin 250 Mg Premixed Ivpb -) 250 mg in 50 mls @ 50 mls/hr IVPB DAILY CHELLY; Protocol Last Admin: 02/28/18 10:08 Dose: 50 mls/hr HEPARIN SOD,PORK IN 0.45% NACL (Heparin-1/2ns 25,000 Units/500) 25,000 units in 500 mls @ 20 mls/hr IVPB TITR CHELLY; Protocol Lactulose (Cephulac (Oral Use)) 20 gm PO TID [facility] Last Admin: 02/28/18 06:28 Dose: 20 gm Metoprolol Tartrate (Lopressor Injection -) 5 mg IVPUSH Q8H PRN PRN Reason: TACHYCARDIA Last Admin: 02/27/18 19:38 Dose: 5 mg Metoprolol Tartrate (Lopressor -) 75 mg PO BID [facility] Last Admin: 02/28/18 10:09 Dose: 75 mg Pantoprazole Sodium (Protonix Iv) 40 mg IVPUSH DAILY [facility] Last Admin: 02/28/18 10:08 Dose: 40 mg Rifaximin (Xifaxan -) 550 mg PO BID [facility] Last Admin: 02/28/18 10:09 Dose: 550 mg Thiamine HCl (Vitamin B1 -) 100 mg PO DAILY [facility] Last Admin: 02/28/18 10:09 Dose: 100 mg 77 year old gentleman with hx of CKD, Afib on A/C, CAD, CKD, Hypertension, Hyperlipidemia, PVD who presented with AMS/Confusion and found to have MELITA. #MELITA ATN vs. 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 tubular injury, US showed no stones or obstruction, UA w/o protein but UPCR ~0.5 indicating non- albumin proteinuria) #AMS #Newly diagnosed multiple myloma #Anemia #Hypercalcemia of Malignancy (PTH is low) #Hyperdense lesion on US of the kidney #Normal anion gap metabolic acidosis #Hyperkalemia (r/o tumor lysis) Renal function stable and pt remains non-oliguric no acute indication for [employer] and pt would not be a good candidate given co- morbid conditions and poor overall prognosis pt on tube feeds, tolerating it well can d/c IVF pt should be getting ~1L of free water daily with tube feeds corrected Ca is WNL trend H/H prognosis is poor Mack Miller DO
--- NOTE | 2018-02-28 16:04 | PN ---
Progress Note, Physician History of Present Illness: Poorly responsive on vent, persistent afib on lopressor and heparin gtt. - Current Medication List Current Medications: Active Medications Acetaminophen (Tylenol -) 650 mg PO Q6H PRN PRN Reason: PAIN LEVEL 1 - 3 Last Admin: 02/23/18 16:25 Dose: 650 mg Acetaminophen (Tylenol Suppository -) 650 mg RC Q6H PRN PRN Reason: FEVER Allopurinol (Zyloprim -) 100 mg PO BID [facility] Last Admin: 02/28/18 10:09 Dose: 100 mg Chlorhexidine Gluconate (Peridex -) 15 ml MM BID [facility] Last Admin: 02/28/18 10:08 Dose: 15 ml Cholecalciferol (Vitamin D3 -) 1,000 unit PO DAILY [facility] Last Admin: 02/28/18 10:09 Dose: 1,000 unit Diphenhydramine HCl (Benadryl Injection -) 25 mg IVPB ONCE PRN PRN Reason: DURING PLASMAPHERESIS Heparin Sodium (Porcine) (Heparin -) 1,000 unit IVPUSH PRN PRN PRN Reason: Heparin Heparin Sodium (Porcine) (Heparin -) 5,000 unit IVPUSH PRN PRN PRN Reason: Heparin Metronidazole (Flagyl 500mg Premixed Ivpb -) 500 mg in 100 mls @ 100 mls/hr IVPB BID [facility] Last Admin: 02/28/18 10:07 Dose: 100 mls/hr Levofloxacin (Levaquin 250 Mg Premixed Ivpb -) 250 mg in 50 mls @ 50 mls/hr IVPB DAILY [facility]; Protocol Last Admin: 02/28/18 10:08 Dose: 50 mls/hr HEPARIN SOD,PORK IN 0.45% NACL (Heparin-1/2ns 25,000 Units/500) 25,000 units in 500 mls @ 20 mls/hr IVPB TITR [facility]; Protocol Lactulose (Cephulac (Oral Use)) 20 gm PO TID [facility] Last Admin: 02/28/18 06:28 Dose: 20 gm Metoprolol Tartrate (Lopressor Injection -) 5 mg IVPUSH Q8H PRN PRN Reason: TACHYCARDIA Last Admin: 02/27/18 19:38 Dose: 5 mg Metoprolol Tartrate (Lopressor -) 75 mg PO BID [facility] Last Admin: 02/28/18 10:09 Dose: 75 mg Pantoprazole Sodium (Protonix Iv) 40 mg IVPUSH DAILY [facility] Last Admin: 02/28/18 10:08 Dose: 40 mg Rifaximin (Xifaxan -) 550 mg PO BID [facility] Last Admin: 02/28/18 10:09 Dose: 550 mg Thiamine HCl (Vitamin B1 -) 100 mg PO DAILY [facility] Last Admin: 02/28/18 10:09 Dose: 100 mg - Objective Vital Signs: Vital Signs Temperature 98.0 F 02/28/18 14:00 Pulse Rate 100 H 02/28/18 14:00 Respiratory Rate 16 02/28/18 14:00 Blood Pressure 94/70 02/28/18 14:00 O2 Sat by Pulse Oximetry (%) 97 02/28/18 08:45 Constitutional: Yes: No Distress, Calm, Thin Neck: Yes: Supple Cardiovascular: Yes: Pulse Irregular Respiratory: Yes: Intubated, Mechanically Ventilated, Rhonchi Gastrointestinal: Yes: Normal Bowel Sounds, Soft Edema: No Labs: CBC, BMP 02/28/18 05:30 02/28/18 05:30 INR, PTT INR 1.28 (0.83-1.09) H 02/22/18 05:30 Fibrinogen 290.0 mg/dL (238-498) 02/18/18 06:00 - ....Imaging EKG: Report Reviewed (Tele: Rate-controlled afib) Problem List - Problems (1) Atrial fibrillation with RVR Code(s): I48.91 - UNSPECIFIED ATRIAL FIBRILLATION (2) [id number] kidney injury Code(s): N17.9 - ACUTE KIDNEY FAILURE, UNSPECIFIED; N18.9 - CHRONIC KIDNEY DISEASE, UNSPECIFIED Qualifiers: Acute renal failure type: unspecified Chronic kidney disease stage: unspecified stage Qualified Code(s): N17.9 - Acute kidney failure, unspecified ; N18.9 - Chronic kidney disease, unspecified (3) Demand ischemia Code(s): I24.8 - OTHER FORMS OF ACUTE ISCHEMIC HEART DISEASE (4) Hypercalcemia Code(s): E83.52 - HYPERCALCEMIA (5) Nonadherence to medication Code(s): Z91.14 - PATIENT'S OTHER NONCOMPLIANCE WITH MEDICATION REGIMEN (6) Paraproteinemia Code(s): D89.2 - HYPERGAMMAGLOBULINEMIA, UNSPECIFIED (7) Anticoagulant long-term use Code(s): Z79.01 - SHELTER (CURRENT) USE OF ANTICOAGULANTS (8) Chronic thromboembolic disease Code(s): I74.9 - EMBOLISM AND THROMBOSIS OF UNSPECIFIED ARTERY (9) Coronary artery disease Code(s): I25.10 - ATHSCL HEART DISEASE OF [place] CORONARY ARTERY W/O ANG PCTRS Qualifiers: Coronary Disease-Associated Artery/Lesion type: [place] artery [place] vs. transplanted heart: [place] heart Associated angina: without angina Qualified Code(s): I25.10 - Atherosclerotic heart disease of [place] coronary artery without angina pectoris (10) Diastolic dysfunction without heart failure Code(s): I51.9 - HEART DISEASE, UNSPECIFIED (11) HTN (hypertension) Code(s): I10 - ESSENTIAL (PRIMARY) HYPERTENSION Qualifiers: Hypertension type: essential hypertension Qualified Code(s): I10 - Essential (primary) hypertension (12) Hypertrophic cardiomyopathy Code(s): I42.2 - OTHER HYPERTROPHIC CARDIOMYOPATHY (13) Hyperlipidemia Code(s): E78.5 - HYPERLIPIDEMIA, UNSPECIFIED Qualifiers: Hyperlipidemia type: pure hypercholesterolemia Qualified Code(s): E78.00 - Pure hypercholesterolemia, unspecified; E78.0 - Pure hypercholesterolemia (14) Multiple myeloma Code(s): C90.00 - MULTIPLE MYELOMA NOT HAVING ACHIEVED REMISSION Qualifiers: Multiple myeloma remission status: not in remission Qualified Code(s): C90.00 - Multiple myeloma not having achieved remission (15) Acalculous cholecystitis Code(s): K81.9 - CHOLECYSTITIS, UNSPECIFIED Assessment/Plan R&LHc at [facility] 04/20/2016 showing nonobstructive CAD, severe LV apical hypertrophic cardiomyopathy, mildly elevated right sided pressures, Mynx deployed right [employer] SAL[employer] access site. 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 Echocardiogram: 10/18/2017 Mod cLVH, severe PURVI, mod TR RVSP 50-60 mmHg, mod- severe MR Echocardiogram: 01/23/2018 Normal LV size with hyperdynamic LVEF 75%, mild BSH, normal RV size and fxn, severe LAE, mod-severe MR, mod TR 1. Acute hypoxic respiratory failure, suspected aspiration pneumonia 2. Toxic metabolic encephelopathy, possible hyperviscosity syndrome, sepsis 3. Acute on CKD (suspect myeloma kidney) 4. Hypercalcemia, paraproteinemia, anemia-> confirmed multiple myeloma, hyperviscosity syndrome 5. History of bilateral SFA occlusion post thrombectomy, referable to embolic disease related to persistent atrial fibrillation with [id number] score of 6, history of poor compliance with anticoagulation and medical F/U 6. Non obstructive CAD on R&LHc coronary angiography with demand ischemia 7. LV diastolic dysfunction related to apical hypertrophic cardiomyopathy, subendocardial ischemia, compensated/euvolemic 8. Persistent atrial fibrillation with RVR [id number] score of 6 on heparin gtt 9. Labile HTN 10. Acalculous Cholecystitis 11. Ischemic hepatitis 12. Anemia 13. Hypernatremia PLAN: 1. Heparin gtt while off Xarelto 15 qd (renal dosing). transfuse to maintain Hgb >8.0 2. Uptitrated Lopressor 75 bid as hemodynamics tolerate with IV Lopressor as needed for rate-control 3. Empiric renal-dosed abx course pending C&S 4. Enteral feeds with free water repletion, lactulose for hyperammonemia, monitor ammonia levels 5. Ventilator management, wean off sedation, GI protection 6. Consider IR cholecystotomy decompression per GI recs 7. LFTs downtrending 8. Continue discussions regarding goals of care with family: Compassionate extubation versus Tracheostomy
[2018-02-28] MEDS ORDERED: PT OWN MED DRAWER 7, Y5N ONE (16:27)
[2018-02-28] MEDS: HEPARIN SOD,PORK IN 0.45% NACL 25,000 UNITS/500 ML INFUS.BAG IVPB SCH (21:55)
[2018-03-01 06:14] LABS: BASO % 0.3 % (0-2.0); HEMATOCRIT 23.8 % (35.4-49); HEMOGLOBIN 7.8 GM/dL (11.7-16.9); LYMPH % 12.9 % (8-40); MCH 30.3 pg (25.7-33.7); MCHC 32.7 g/dl (32.0-35.9); MEAN CELL VOLUME 92.6 fl (80-96); MEAN PLT VOLUME 9.4 fl (7.5-11.1); MONO % 2.2 % (3.8-10.2); NEUT % 81.6 % (42.8-82.8); PLATELET COUNT 129 K/MM3 (134-434); RBC 2.57 M/mm3 (4.00-5.60); RDW 16.1 % (11.9-15.9); WHITE BLOOD COUNT 4.7 K/mm3 (4.0-10.0)
[2018-03-01] MEDS: LACTULOSE 20 GM/30 ML UDC (FOR ORAL USE ONLY) PO SCH ×3 (06:16→21:25)
[2018-03-01 06:40] LABS: ALBUMIN 1.1 g/dl (3.4-5.0); ALK PHOS 110 U/L (45-117); ANION GAP 5 MMOL/L (8-16); BILIRUBIN,TOTAL 0.3 mg/dL (0.2-1); BLOOD UREA NITROGEN 74 mg/dL (7-18); CHLORIDE 120 mmol/L (98-107); CO2 21 mmol/L (21-32); CREATININE 2.4 mg/dL (0.55-1.3); GLUCOSE,RANDOM 105 mg/dL (74-106); MAGNESIUM 2.1 mg/dL (1.8-2.4); PHOSPHOROUS 3.3 mg/dL (2.5-4.9); POTASSIUM 4.8 mmol/L (3.5-5.1); SGOT/AST 62 U/L (15-37); SGPT/ALT 85 U/L (13-61); SODIUM 147 mmol/L (136-145); TOT PROT 8.6 g/dl (6.4-8.2)
[2018-03-01 06:42] LABS: CALCIUM 5.9 mg/dL (8.5-10.1)
[2018-03-01 07:14] LABS: ARTERIAL BLD GAS O2 SATURATION 97.4 % (90-98.9); ARTERIAL BLOOD GAS BASE EXCESS -2.9 meq/l (-2-2); ARTERIAL BLOOD GAS pH 7.46 (7.35-7.45)
[2018-03-01] MEDS ORDERED: CALCIUM GLUCONATE 10% - 1,000 MG/10 ML VIAL IVPB ONE (07:30)
[2018-03-01 07:36] LABS: ALLENS TEST POSITIVE
--- NOTE | 2018-03-01 07:42 | PN ---
Progress Note (short form) - Note Progress Note: Renal follow up for Hypercalcemia/MELITA Pt seen and examined in the ICU remains unresponsive on vent no overnight events making urine via francois on tube feeds Vital Signs Temperature 98.2 F 03/01/18 06:00 Pulse Rate 92 H 03/01/18 06:00 Respiratory Rate 19 03/01/18 07:02 Blood Pressure 97/68 03/01/18 06:00 O2 Sat by Pulse Oximetry (%) 97 02/28/18 08:45 Intake & Output 02/26/18 02/27/18 02/28/18 03/01/18 23:59 23:59 23:59 23:59 Intake Total 2900 3900 2260 1040 Output Total 1500 1200 700 900 Balance 1400 2700 1560 140 Weight 81.737 kg 81.737 kg 84.051 kg 84.051 kg on vent via ET tube RRR, No M/R No rales soft NT/ND no LE edema CBC, BMP 03/01/18 05:30 03/01/18 05:30 Current Medications Acetaminophen (Tylenol -) 650 mg PO Q6H PRN PRN Reason: PAIN LEVEL 1 - 3 Last Admin: 02/23/18 16:25 Dose: 650 mg Acetaminophen (Tylenol Suppository -) 650 mg RC Q6H PRN PRN Reason: FEVER Allopurinol (Zyloprim -) 100 mg PO BID [facility] Last Admin: 02/28/18 21:59 Dose: 100 mg Chlorhexidine Gluconate (Peridex -) 15 ml MM BID [facility] Last Admin: 02/28/18 21:57 Dose: 15 ml Cholecalciferol (Vitamin D3 -) 1,000 unit PO DAILY [facility] Last Admin: 02/28/18 10:09 Dose: 1,000 unit Diphenhydramine HCl (Benadryl Injection -) 25 mg IVPB ONCE PRN PRN Reason: DURING PLASMAPHERESIS Heparin Sodium (Porcine) (Heparin -) 1,000 unit IVPUSH PRN PRN PRN Reason: Heparin Heparin Sodium (Porcine) (Heparin -) 5,000 unit IVPUSH PRN PRN PRN Reason: Heparin Metronidazole (Flagyl 500mg Premixed Ivpb -) 500 mg in 100 mls @ 100 mls/hr IVPB BID [facility] Last Admin: 02/28/18 22:00 Dose: 100 mls/hr Levofloxacin (Levaquin 250 Mg Premixed Ivpb -) 250 mg in 50 mls @ 50 mls/hr IVPB DAILY [facility]; Protocol Last Admin: 02/28/18 10:08 Dose: 50 mls/hr HEPARIN SOD,PORK IN 0.45% NACL (Heparin-1/2ns 25,000 Units/500) 25,000 units in 500 mls @ 20 mls/hr IVPB TITR [facility]; Protocol Last Admin: 02/28/18 21:55 Dose: 1,000 units/hr, 20 mls/hr Lactulose (Cephulac (Oral Use)) 20 gm PO TID [facility] Last Admin: 03/01/18 06:16 Dose: Not Given Metoprolol Tartrate (Lopressor Injection -) 5 mg IVPUSH Q8H PRN PRN Reason: TACHYCARDIA Last Admin: 02/27/18 19:38 Dose: 5 mg Metoprolol Tartrate (Lopressor -) 75 mg PO BID [facility] Last Admin: 02/28/18 21:57 Dose: 75 mg Pantoprazole Sodium (Protonix Iv) 40 mg IVPUSH DAILY [facility] Last Admin: 02/28/18 10:08 Dose: 40 mg Rifaximin (Xifaxan -) 550 mg PO BID [facility] Last Admin: 02/28/18 21:57 Dose: 550 mg Thiamine HCl (Vitamin B1 -) 100 mg PO DAILY [facility] Last Admin: 02/28/18 10:09 Dose: 100 mg 77 year old gentleman with hx of CKD, Afib on A/C, CAD, CKD, Hypertension, Hyperlipidemia, PVD who presented with AMS/Confusion and found to have MELITA. #MELITA ATN vs. 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 tubular injury, US showed no stones or obstruction, UA w/o protein but UPCR ~0.5 indicating non- albumin proteinuria) #AMS #Newly diagnosed multiple myloma #Anemia #Hypercalcemia of Malignancy (PTH is low) #Hyperdense lesion on US of the kidney #Normal anion gap metabolic acidosis #Hyperkalemia (r/o tumor lysis) Renal function stable/slightly improved and pt remains non-oliguric. No indication for [employer]. continue supportive care, keep MAP > 65 continue tube feeds with free water Corrected Ca is WNL Prognosis remains poor family discussions regarding goals of care are on-going Mack Miller DO
--- NOTE | 2018-03-01 08:50 | PN ---
Progress Note (short form) - Note Progress Note: Chief Complaint: Events noted, notes reviewed, remains intubated no change in neurological status, remains in atrial fibrillation on A/C-Heparin History of Present Illness: Seen and examined in the ICU. Events noted, notes reviewed, remains intubated no change in neurological status, remains in atrial fibrillation on A/C-Heparin Remains on B-Blockers [facility] coronary angiography performed 04/20/2016 revealed non-obstructive CAD, severe LV apical hypertrophic cardiomyopathy, mildly elevated right sided pressures/study is consistent with apical hypertrophy (spade-like) variant of hypertrophic cardiomyopathy Echocardiography dated 10/18/2017 Mod cLVH, severe PURVI, moderate TR RVSP 50-60 mmHg, moderate-severe MR Echocardiography dated 01/23/2018 Normal LV size with hyperdynamic LVEF 75%, mild BSH, normal RV size and function, severe LAE, moderate-severe MR, mod TR - Current Medication List Current Medications Acetaminophen (Tylenol -) 650 mg PO Q6H PRN PRN Reason: PAIN LEVEL 1 - 3 Last Admin: 02/23/18 16:25 Dose: 650 mg Acetaminophen (Tylenol Suppository -) 650 mg RC Q6H PRN PRN Reason: FEVER Allopurinol (Zyloprim -) 100 mg PO BID [facility] Last Admin: 02/28/18 21:59 Dose: 100 mg Chlorhexidine Gluconate (Peridex -) 15 ml MM BID [facility] Last Admin: 02/28/18 21:57 Dose: 15 ml Cholecalciferol (Vitamin D3 -) 1,000 unit PO DAILY [facility] Last Admin: 02/28/18 10:09 Dose: 1,000 unit Diphenhydramine HCl (Benadryl Injection -) 25 mg IVPB ONCE PRN PRN Reason: DURING PLASMAPHERESIS Heparin Sodium (Porcine) (Heparin -) 1,000 unit IVPUSH PRN PRN PRN Reason: Heparin Last Admin: 03/01/18 08:03 Dose: 1,000 unit Heparin Sodium (Porcine) (Heparin -) 5,000 unit IVPUSH PRN PRN PRN Reason: Heparin Metronidazole (Flagyl 500mg Premixed Ivpb -) 500 mg in 100 mls @ 100 mls/hr IVPB BID [facility] Last Admin: 02/28/18 22:00 Dose: 100 mls/hr Levofloxacin (Levaquin 250 Mg Premixed Ivpb -) 250 mg in 50 mls @ 50 mls/hr IVPB DAILY [facility]; Protocol Last Admin: 02/28/18 10:08 Dose: 50 mls/hr HEPARIN SOD,PORK IN 0.45% NACL (Heparin-1/2ns 25,000 Units/500) 25,000 units in 500 mls @ 20 mls/hr IVPB TITR [facility]; Protocol Last Titration: 03/01/18 07:50 Dose: 1,100 units/hr, 22 mls/hr Lactulose (Cephulac (Oral Use)) 20 gm PO TID [facility] Last Admin: 03/01/18 06:16 Dose: Not Given Metoprolol Tartrate (Lopressor Injection -) 5 mg IVPUSH Q8H PRN PRN Reason: TACHYCARDIA Last Admin: 02/27/18 19:38 Dose: 5 mg Metoprolol Tartrate (Lopressor -) 75 mg PO BID [facility] Last Admin: 02/28/18 21:57 Dose: 75 mg Pantoprazole Sodium (Protonix Iv) 40 mg IVPUSH DAILY [facility] Last Admin: 02/28/18 10:08 Dose: 40 mg Rifaximin (Xifaxan -) 550 mg PO BID [facility] Last Admin: 02/28/18 21:57 Dose: 550 mg Thiamine HCl (Vitamin B1 -) 100 mg PO DAILY [facility] Last Admin: 02/28/18 10:09 Dose: 100 mg Review of Systems Unable to obtain - Objective Vital Signs: Last Vital Signs Temp Pulse Resp BP Pulse Ox 98.2 F 92 H 19 97/68 97 03/01/18 06:00 03/01/18 06:00 03/01/18 07:02 03/01/18 06:00 02/28/18 08:45 Intake & Output 02/26/18 02/27/18 02/28/18 03/01/18 23:59 23:59 23:59 23:59 Intake Total 2900 3900 2260 1040 Output Total 1500 1200 700 900 Balance 1400 2700 1560 140 Weight 180 lb 3.2 oz 180 lb 3.2 oz 185 lb 4.8 oz 185 lb 4.8 oz Neck: Supple Negative JVD No Bruit Cardiovascular: S1 S2 Irregularly Irregular Grade 2/6 Systolic Murmur Apical Chest: Scattered Rhonchi Bilaterally Gastrointestinal: Soft Benign Normal Bowel Sounds Ext: No Edema Labs: CBC, BMP 03/01/18 05:30 03/01/18 05:30 Assessment/Plan ASSESSMENT: 1. Acute hypoxic respiratory failure, suspected aspiration pneumonia with sepsis syndrome 2. Toxic metabolic encephelopathy, rule out CVA 3. Acute on CKD, suspected myeloma kidney 4. Paraproteinemia, hypercalcemia and anemia confirmed multiple myeloma 5. History of bilateral SFA occlusion post thrombectomy, most likely embolic disease related to persistent atrial fibrillation with [id number] score of 6 6. CAD with evidence of demand ischemic injury, non obstructive CAD on [facility] coronary angiogrpahy angina pectoris 7. 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 Persistent atrial fibrillation [id number] score of 6 currently resumed on Heparin therapy 9. HTN 10. Anemia, dropping H/H 11. Acalculous Cholecystitis 12. Ischemic hepatitis 13. Hypernatremia PLAN: 1. Heparin with caution considering the dropping Hg, transfuse to maintain Hg equal or > 8.0, as outlined in prior notes ideally A/C therapy to be continued indefinitely unless it is absolutely contraindicated considering his [id number] score of 6 2. Continue Lopressor 3. Initiate D5 1/3 NS for the above noted Hypernatremia 4. Antibiotics as per the primary team 5. Ventilator management as per the ICU team 6. As outlined in prior notes overall poor prognosis, family to decide regarding compassionate extubation versus tracheostomy Mabel Rolle MD
[2018-03-01] MEDS: PANTOPRAZOLE SODIUM 40 MG VIAL IVPUSH SCH (09:23)
[2018-03-01] MEDS: ALLOPURINOL 100 MG TABLET (FP) PO SCH ×2 (09:28→21:27)
[2018-03-01] MEDS: CHOLECALCIFEROL (VITAMIN D3) 1,000 UNIT TABLET (FP) PO SCH (09:28)
[2018-03-01] MEDS: THIAMINE HCL 100 MG TABLET (FP) PO SCH (09:28)
[2018-03-01] MEDS: METOPROLOL TARTRATE 50 MG TABLET (FP) PO SCH ×2 (09:31→21:26)
[2018-03-01] MEDS: CHLORHEXIDINE GLUCONATE 0.12% 15ML CUP MM SCH ×2 (09:39→21:27)
[2018-03-01] MEDS: RIFAXIMIN 550 MG TABLET (UD) PO SCH ×2 (09:39→21:26)
--- NOTE | 2018-03-01 09:46 | PN ---
Progress Note, Physician History of Present Illness: Unresponsive on ventilator Afebrile WBC WNL BC no growth - Current Medication List Current Medications: Active Medications Acetaminophen (Tylenol -) 650 mg PO Q6H PRN PRN Reason: PAIN LEVEL 1 - 3 Last Admin: 02/23/18 16:25 Dose: 650 mg Acetaminophen (Tylenol Suppository -) 650 mg RC Q6H PRN PRN Reason: FEVER Allopurinol (Zyloprim -) 100 mg PO BID [facility] Last Admin: 03/01/18 09:28 Dose: 100 mg Chlorhexidine Gluconate (Peridex -) 15 ml MM BID [facility] Last Admin: 03/01/18 09:39 Dose: 15 ml Cholecalciferol (Vitamin D3 -) 1,000 unit PO DAILY [facility] Last Admin: 03/01/18 09:28 Dose: 1,000 unit Diphenhydramine HCl (Benadryl Injection -) 25 mg IVPB ONCE PRN PRN Reason: DURING PLASMAPHERESIS Heparin Sodium (Porcine) (Heparin -) 1,000 unit IVPUSH PRN PRN PRN Reason: Heparin Last Admin: 03/01/18 08:03 Dose: 1,000 unit Heparin Sodium (Porcine) (Heparin -) 5,000 unit IVPUSH PRN PRN PRN Reason: Heparin Metronidazole (Flagyl 500mg Premixed Ivpb -) 500 mg in 100 mls @ 100 mls/hr IVPB BID [facility] Last Admin: 03/01/18 09:23 Dose: 100 mls/hr Levofloxacin (Levaquin 250 Mg Premixed Ivpb -) 250 mg in 50 mls @ 50 mls/hr IVPB DAILY [facility]; Protocol Last Admin: 03/01/18 09:23 Dose: 50 mls/hr HEPARIN SOD,PORK IN 0.45% NACL (Heparin-1/2ns 25,000 Units/500) 25,000 units in 500 mls @ 20 mls/hr IVPB TITR [facility]; Protocol Last Titration: 03/01/18 07:50 Dose: 1,100 units/hr, 22 mls/hr Dextrose/Sodium Chloride (D5-1/3ns -) 500 mls @ 83 mls/hr IV [facility]IR [facility] Lactulose (Cephulac (Oral Use)) 20 gm PO TID [facility] Last Admin: 03/01/18 06:16 Dose: Not Given Metoprolol Tartrate (Lopressor Injection -) 5 mg IVPUSH Q8H PRN PRN Reason: TACHYCARDIA Last Admin: 02/27/18 19:38 Dose: 5 mg Metoprolol Tartrate (Lopressor -) 75 mg PO BID [facility] Last Admin: 03/01/18 09:31 Dose: 75 mg Pantoprazole Sodium (Protonix Iv) 40 mg IVPUSH DAILY [facility] Last Admin: 03/01/18 09:23 Dose: 40 mg Rifaximin (Xifaxan -) 550 mg PO BID [facility] Last Admin: 03/01/18 09:39 Dose: 550 mg Thiamine HCl (Vitamin B1 -) 100 mg PO DAILY [facility] Last Admin: 03/01/18 09:28 Dose: 100 mg - Objective Vital Signs: Vital Signs Temperature 98.2 F 03/01/18 06:00 Pulse Rate 96 H 03/01/18 08:52 Respiratory Rate 14 03/01/18 08:52 Blood Pressure 97/68 03/01/18 06:00 O2 Sat by Pulse Oximetry (%) 98 03/01/18 08:52 Constitutional: Yes: No Distress Cardiovascular: Yes: Regular Rate and Rhythm, S1, S2 Respiratory: Yes: Mechanically Ventilated Gastrointestinal: Yes: Normal Bowel Sounds, Soft. No: Tenderness Edema: Yes Labs: CBC, BMP 03/01/18 05:30 03/01/18 05:30 INR, PTT INR 1.28 (0.83-1.09) H 02/22/18 05:30 Fibrinogen 290.0 mg/dL (238-498) 02/18/18 06:00 Assessment/Plan Respiratory failure RLL pneumonia Acalculus Cholecystitis Toxic metabolic encephalopathy Renal failure Myeloma Hyperviscosity syndrome Continue levaquin/ flagyl Ventilatory support Prognosis poor
[2018-03-01] MEDS: DEXTROSE 5%-1/3 NS - 500 ML IV SCH (09:52)
--- NOTE | 2018-03-01 10:20 | PN ---
Teaching Attending Note Name of Resident: Bola Griffith ATTENDING PHYSICIAN STATEMENT I saw and evaluated the patient. I reviewed the resident's note and discussed the case with the resident. I agree with the resident's findings and plan as documented. SUBJECTIVE: Pt seen and examined in the ICU. Remains intubated, unresponsive off sedation. No fevers recorded. No pressors. Ongoing intermittent discussions with family without decision. OBJECTIVE: Vital Signs Period Temp Pulse Resp BP Sys/Ariza Pulse Ox Last 24 Hr 98.0 F-98.6 F 87-109 14-20 82-100/57-73 98 Intake & Output 02/26/18 02/27/18 02/28/18 03/01/18 23:59 23:59 23:59 23:59 Intake Total 2900 3900 2260 1040 Output Total 1500 1200 700 900 Balance 1400 2700 1560 140 Weight 81.737 kg 81.737 kg 84.051 kg 84.051 kg Gen: intubated, unresponsive Heart: RRR Lung: decreased breath sounds at the bases Abd: soft, nontender Ext: UE edema CBC, BMP 03/01/18 05:30 03/01/18 05:30 Active Medications Acetaminophen (Tylenol -) 650 mg PO Q6H PRN PRN Reason: PAIN LEVEL 1 - 3 Last Admin: 02/23/18 16:25 Dose: 650 mg Acetaminophen (Tylenol Suppository -) 650 mg RC Q6H PRN PRN Reason: FEVER Allopurinol (Zyloprim -) 100 mg PO BID [facility] Last Admin: 03/01/18 09:28 Dose: 100 mg Chlorhexidine Gluconate (Peridex -) 15 ml MM BID [facility] Last Admin: 03/01/18 09:39 Dose: 15 ml Cholecalciferol (Vitamin D3 -) 1,000 unit PO DAILY [facility] Last Admin: 03/01/18 09:28 Dose: 1,000 unit Diphenhydramine HCl (Benadryl Injection -) 25 mg IVPB ONCE PRN PRN Reason: DURING PLASMAPHERESIS Heparin Sodium (Porcine) (Heparin -) 1,000 unit IVPUSH PRN PRN PRN Reason: Heparin Last Admin: 03/01/18 08:03 Dose: 1,000 unit Heparin Sodium (Porcine) (Heparin -) 5,000 unit IVPUSH PRN PRN PRN Reason: Heparin Metronidazole (Flagyl 500mg Premixed Ivpb -) 500 mg in 100 mls @ 100 mls/hr IVPB BID [facility] Last Admin: 03/01/18 09:23 Dose: 100 mls/hr Levofloxacin (Levaquin 250 Mg Premixed Ivpb -) 250 mg in 50 mls @ 50 mls/hr IVPB DAILY [facility]; Protocol Last Admin: 03/01/18 09:23 Dose: 50 mls/hr HEPARIN SOD,PORK IN 0.45% NACL (Heparin-1/2ns 25,000 Units/500) 25,000 units in 500 mls @ 20 mls/hr IVPB TITR [facility]; Protocol Last Titration: 03/01/18 07:50 Dose: 1,100 units/hr, 22 mls/hr Dextrose/Sodium Chloride (D5-1/3ns -) 500 mls @ 83 mls/hr IV ASDIR [facility] Last Admin: 03/01/18 09:52 Dose: 83 mls/hr Lactulose (Cephulac (Oral Use)) 20 gm PO TID [facility] Last Admin: 03/01/18 06:16 Dose: Not Given Metoprolol Tartrate (Lopressor Injection -) 5 mg IVPUSH Q8H PRN PRN Reason: TACHYCARDIA Last Admin: 02/27/18 19:38 Dose: 5 mg Metoprolol Tartrate (Lopressor -) 75 mg PO BID [facility] Last Admin: 03/01/18 09:31 Dose: 75 mg Pantoprazole Sodium (Protonix Iv) 40 mg IVPUSH DAILY [facility] Last Admin: 03/01/18 09:23 Dose: 40 mg Rifaximin (Xifaxan -) 550 mg PO BID [facility] Last Admin: 03/01/18 09:39 Dose: 550 mg Thiamine HCl (Vitamin B1 -) 100 mg PO DAILY [facility] Last Admin: 03/01/18 09:28 Dose: 100 mg ASSESSMENT AND PLAN: Acute Hypoxic Respiratory Failure Altered Mental Status Metabolic Encephalopathy Pneumonia Acalculous Cholecystitis Multiple Myeloma Acute on Chronic Renal Failure Metabolic Acidosis LV Diastolic Dysfunction Atrial Fibrillation CAD +Troponins likely Demand Ischemia PAD Hyperlipidemia HTN - continue antibiotics per ID - monitor urine output, creatinine - rate control - minimize sedation to assess mental status - spontaneous breathing trials as tolerated but would not extubate unless mental status improved - DVT/GI prophylaxis - continue discussions regarding goals of care, if unable to reach family will need tracheostomy as he is approaching 3 weeks intubated - palliative care input appreciated - continue ICU monitoring - poor overall prognosis for meaningful recovery critical care time spent in reviewing chart, evaluating patient and formulating plan 35 min
--- NOTE | 2018-03-01 10:53 | PN ---
Physical Exam: SUBJECTIVE: Patient seen and examined in the ICU. Remains intubated, poorly responsive off sedation. No fevers recorded. No pressors. No gross change in overall mental status. GOC/family meeting initiated and ongoing. OBJECTIVE: Vital Signs Period Temp Pulse Resp BP Sys/Ariza Pulse Ox Last 24 Hr 98.0 F-98.6 F 87-109 14-20 82-100/57-73 98 GENERAL: Remains intubated, poorly responsive off sedation HEAD: NCAT EYES: sclera anicteric. ENT: Ears normal, nares patent, dry mucous membranes NECK: Trachea midline. LUNGS: bilateral diffuse rhonchi HEART: Tachycardic rate and irregular rhythm. ABDOMEN: Soft, nondistended. EXTREMITIES: 2+ pulses, warm, well-perfused, no edema, scattered ulcers. NEUROLOGICAL: Cannot assess secondary to clinical condition. SKIN: Warm, dry, normal turgor, scattered ulcers on the legs Laboratory Results - last 24 hr 02/28/18 02/28/18 03/01/18 05:30 18:00 05:30 WBC RBC Hgb Hct MCV MCH MCHC RDW Plt Count MPV Absolute Neuts (auto) Neutrophils % Neutrophils % (Manual) 83.2 H Band Neutrophils % 4.2 Lymphocytes % Lymphocytes % (Manual) 9.5 Monocytes % Monocytes % (Manual) 0 L D Eosinophils % Eosinophils % (Manual) 2.1 D Basophils % Basophils % (Manual) 0.0 Myelocytes % (Man) 1 D Promyelocytes % (Man) 0 Blast Cells % (Manual) 0 Nucleated RBC % Metamyelocytes 0 Anisocytosis 1+ Macrocytosis 1+ PTT (Actin FS) 48.2 H Puncture Site ABG pH ABG pCO2 at Pt Temp ABG pO2 at Pt Temp ABG HCO3 ABG O2 Sat (Measured) ABG O2 Content ABG Base Excess Vinny Test O2 Delivery Device Oxygen Flow Rate Vent Mode Vent Rate Mechanical Rate PEEP Pressure Support Vent Sodium Potassium Chloride Carbon Dioxide Anion Gap BUN Creatinine Creat Clearance w eGFR Random Glucose Calcium Phosphorus Magnesium Total Bilirubin AST ALT Alkaline Phosphatase Total Protein Albumin Stool Occult Blood Negative Crossmatch 03/01/18 03/01/18 03/01/18 05:30 05:30 06:30 WBC 4.7 RBC 2.57 L Hgb 7.8 L Hct 23.8 L MCV 92.6 MCH 30.3 MCHC 32.7 RDW 16.1 H Plt Count 129 L D MPV 9.4 Absolute Neuts (auto) 3.8 Neutrophils % 81.6 Neutrophils % (Manual) Band Neutrophils % Lymphocytes % 12.9 Lymphocytes % (Manual) Monocytes % 2.2 L Monocytes % (Manual) Eosinophils % 3.0 Eosinophils % (Manual) Basophils % 0.3 Basophils % (Manual) Myelocytes % (Man) Promyelocytes % (Man) Blast Cells % (Manual) Nucleated RBC % 6 H Metamyelocytes Anisocytosis Macrocytosis PTT (Actin FS) Puncture Site Right radial ABG pH 7.46 H ABG pCO2 at Pt Temp 29.0 L ABG pO2 at Pt Temp 102.0 H ABG HCO3 20.2 L ABG O2 Sat (Measured) 97.4 ABG O2 Content 8.4 L* ABG Base Excess -2.9 L Vinny Test Positive O2 Delivery Device Vent Oxygen Flow Rate 40% Vent Mode A/c/prvc Vent Rate 14 Mechanical Rate Yes PEEP 5.0 Pressure Support Vent 500 Sodium 147 H Potassium 4.8 Chloride 120 H Carbon Dioxide 21 Anion Gap 5 L BUN 74 H Creatinine 2.4 H Creat Clearance w eGFR 26.25 Random Glucose 105 Calcium 5.9 L* Phosphorus 3.3 Magnesium 2.1 Total Bilirubin 0.3 AST 62 H ALT 85 H Alkaline Phosphatase 110 Total Protein 8.6 H Albumin 1.1 L Stool Occult Blood Crossmatch 03/01/18 09:40 WBC RBC Hgb Hct MCV MCH MCHC RDW Plt Count MPV Absolute Neuts (auto) Neutrophils % Neutrophils % (Manual) Band Neutrophils % Lymphocytes % Lymphocytes % (Manual) Monocytes % Monocytes % (Manual) Eosinophils % Eosinophils % (Manual) Basophils % Basophils % (Manual) Myelocytes % (Man) Promyelocytes % (Man) Blast Cells % (Manual) Nucleated RBC % Metamyelocytes Anisocytosis Macrocytosis PTT (Actin FS) Puncture Site ABG pH ABG pCO2 at Pt Temp ABG pO2 at Pt Temp ABG HCO3 ABG O2 Sat (Measured) ABG O2 Content ABG Base Excess Vinny Test O2 Delivery Device Oxygen Flow Rate Vent Mode Vent Rate Mechanical Rate PEEP Pressure Support Vent Sodium Potassium Chloride Carbon Dioxide Anion Gap BUN Creatinine Creat Clearance w eGFR Random Glucose Calcium Phosphorus Magnesium Total Bilirubin AST ALT Alkaline Phosphatase Total Protein Albumin Stool Occult Blood Crossmatch See Detail Active Medications Generic Name Dose Route Start Last Admin Trade Name Freq PRN Reason Stop Dose Admin Acetaminophen 650 mg 02/17/18 14:09 02/23/18 16:25 Tylenol - PO 650 mg Q6H PRN Administration PAIN LEVEL 1 - 3 Acetaminophen 650 mg 02/22/18 15:54 Tylenol Suppository - RC Q6H PRN FEVER Allopurinol 100 mg 02/16/18 10:00 03/01/18 09:28 Zyloprim - PO 100 mg BID CHELLY Administration Chlorhexidine Gluconate 15 ml 02/17/18 23:45 03/01/18 09:39 Peridex - MM 15 ml BID CHELLY Administration Cholecalciferol 1,000 unit 02/25/18 10:00 03/01/18 09:28 Vitamin D3 - PO 1,000 unit DAILY CHELLY Administration Diphenhydramine HCl 25 mg 02/16/18 12:00 Benadryl Injection - IVPB ONCE PRN DURING PLASMAPHERESIS Heparin Sodium (Porcine) 1,000 unit 02/28/18 12:23 03/01/18 08:03 Heparin - IVPUSH 1,000 unit PRN PRN Administration Heparin Heparin Sodium (Porcine) 5,000 unit 02/28/18 12:23 Heparin - IVPUSH PRN PRN Heparin Metronidazole 500 mg in 100 mls @ 100 mls/hr 02/24/18 14:30 03/01/18 09:23 Flagyl 500mg Premixed Ivpb - IVPB 100 mls/hr BID CHELLY Administration Levofloxacin 250 mg in 50 mls @ 50 mls/hr 02/26/18 12:45 03/01/18 09:23 Levaquin 250 Mg Premixed Ivpb - IVPB 50 mls/hr DAILY CHELLY Administration Protocol HEPARIN SOD,PORK IN 0.45% NACL 25,000 units in 500 mls @ 20 mls/hr 02/28/18 13 :00 03/01/18 07:50 Heparin-1/2ns 25,000 Units/500 IVPB 1,100 units/hr TITR CHELLY 22 mls/hr Titration Protocol 1,000 UNITS/HR Dextrose/Sodium Chloride 500 mls @ 83 mls/hr 03/01/18 09:15 03/01/18 09:52 D5-1/3ns - IV 83 mls/hr ASDIR CHELLY Administration Lactulose 20 gm 02/16/18 09:38 03/01/18 06:16 Cephulac (Oral Use) PO Not Given TID CHELLY Metoprolol Tartrate 5 mg 02/16/18 13:04 02/27/18 19:38 Lopressor Injection - IVPUSH 5 mg Q8H PRN Administration TACHYCARDIA Metoprolol Tartrate 75 mg 02/23/18 08:30 03/01/18 09:31 Lopressor - PO 75 mg BID CHELLY Administration Pantoprazole Sodium 40 mg 02/14/18 12:00 03/01/18 09:23 Protonix Iv IVPUSH 40 mg DAILY CHELLY Administration Rifaximin 550 mg 02/22/18 22:00 03/01/18 09:39 Xifaxan - PO 550 mg BID CHELLY Administration Thiamine HCl 100 mg 02/06/18 22:12 03/01/18 09:28 Vitamin B1 - PO 100 mg DAILY CHELLY Administration ASSESSMENT/PLAN: 77 yo m PMH of A-Fib, Acute on chronic kidney injury, CAD w stents, hypercalcemia, medication non-adherence, paraproteinemia, thromboembolic disease , diastolic heart dysfunction without failure, HTN, HLD, hypertrophic cardiomyopathy is here after a rapid response. He was on the floors when it was noticed that he has respiratory insufficiency and was desaturating, requiring ICU monitoring. GOC/family meeting initiated and ongoing. GI: metabolic encephalopathy -ammonia improving w/ lactulose and rifaximin -LFTs are also elevated but downtrending. transamintitis most likely secondary to ischemic hepatits which is multifactorial including sepsis, episodes of hypotension and hyperviscosity syndrome. acalculous cholecystitis? US shows thickened gallbladder wall, pericholecystic fluid, suspicious for acalculous cholecystitis. There was also mild dilatation of the CBD but that might be normal for age. -Spoke w/ IR, who feel image does not represent acalculous cholecystitis and does not require any IR drainage ID: No fevers recorded. - Rhonchi heard on Lung auscultation -RLL pneumonia bcx 02/26/18 neg off of ceftazidime Vancomycin Redosed 02/26/18 - c/w levaquin/flagyl. - ID on board - c/w rifaximin for elevated ammonia level Cardio: Afib -[id number] score of 6 - Lopressor 75 mg BID PO -IV metoprolol 5 mg PRN - diastolic dysfunction + hypertrophic cardiomyopathy - CAD with multiple stents - Cardio consulted and on board. off Xarelto 15 qd (renal dosing) while on heparin gtt. transfuse to maintain Hgb >8.0 s/p 1 u prbc 02/27/18, Heparin with caution considering the dropping Hg, transfuse to maintain Hg equal or > 8.0, as outlined in prior notes ideally A/C therapy to be continued indefinitely unless it is absolutely contraindicated considering his [id number] score of 6 - Sporadically goes in and out of V-Tach - Can give amio if v-tach is sustained and persistent. Pulm: - Intubated - Patient has b/l pleural effusions. - No pneumothorax - b/l diffuse rhonchi - infiltrate on CXR: Abx- Substituting levaquin for ceftazidime Vancomycin Redosed 02/26/18 - c/w levaquin/flagyl. Renal: - Acute on Chronic kidney injury MELITA ATN vs. 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 tubular injury, US showed no stones or obstruction, UA w/o protein but UPCR ~0.5 indicating non- albumin proteinuria) - Renal consulted and on board. Hyperkalemia (r/o tumor lysis) serum K is improved, s/p bicarb gtt D5 1/3 NS 83cc/hr Neuro: - Patient is not alert or oriented. Remains intubated, poorly responsive off sedation - Head CT showed no acute pathology - Neuro consulted and on board. (Dr. Kuo + Dr. mejia) - Ammonia elevated - Patient receiving lactulose - c/w rifaximin for elevated ammonia. Heme/Onc: - monitor H/H - Will transfuse to keep hb > 8 - Patient not receiving plasmapharesis today. - Paraproteinemia - Patient fulfills new criteria for multiple myeloma with free kappa/ free lambda light chain ratio of 432 (>100 is diagnostic of myeloma) - [place]/Lambda ratio > 100 consistent with Multiple myeloma - M spike elevated elevated at 6.8 previously 4.7 -steroids being held at this time s/p 1 u prbc 02/27/18, Heparin with caution considering the dropping Hg, transfuse to maintain Hg equal or > 8.0, as outlined in prior notes ideally A/C therapy to be continued indefinitely unless it is absolutely contraindicated considering his [id number] score of 6 -will give another unit prbc for drop in Hgb Endo: - Parathyroid hormone WNL - PTH-borderline low appropriate given hypercalcemia, PTHrP low Prophylaxis: - Heparin with caution considering the dropping Hg, transfuse to maintain Hg equal or > 8.0, as outlined in prior notes ideally A/C therapy to be continued indefinitely unless it is absolutely contraindicated considering his [id number] score of 6 - Protonix F/E/N: F: D5 1/3 NS 83cc/hr E: Will replete lytes PRN N: tube feeds (low potassium feeds). with free water Code Status: Full Code - GOC/family meeting initiated and ongoing. if unable to reach family will need tracheostomy as he is approaching 3 weeks intubated - Compassionate extubation versus Tracheostomy Dispo: Patient will continue to receive ICU level care Visit type - Emergency Visit Emergency Visit: Yes ED Registration Date: 02/06/18 Care time: The patient presented to the Emergency Department on the above date and was hospitalized for further evaluation of their emergent condition. - New Patient This patient is new to me today: Yes Date on this admission: 03/01/18 - Critical Care Critical Care patient: Yes Total Critical Care Time (in minutes): 40 Critical Care Statement: The care of this patient involved high complexity decision making to prevent further life threatening deterioration of the patient 's condition and/or to evaluate & treat vital organ system(s) failure or risk of failure.
--- NOTE | 2018-03-01 12:20 | PN ---
Progress Note, Physician - Current Medication List Current Medications: Active Medications Acetaminophen (Tylenol -) 650 mg PO Q6H PRN PRN Reason: PAIN LEVEL 1 - 3 Last Admin: 02/23/18 16:25 Dose: 650 mg Acetaminophen (Tylenol Suppository -) 650 mg RC Q6H PRN PRN Reason: FEVER Allopurinol (Zyloprim -) 100 mg PO BID [facility] Last Admin: 03/01/18 09:28 Dose: 100 mg Chlorhexidine Gluconate (Peridex -) 15 ml MM BID [facility] Last Admin: 03/01/18 09:39 Dose: 15 ml Cholecalciferol (Vitamin D3 -) 1,000 unit PO DAILY [facility] Last Admin: 03/01/18 09:28 Dose: 1,000 unit Diphenhydramine HCl (Benadryl Injection -) 25 mg IVPB ONCE PRN PRN Reason: DURING PLASMAPHERESIS Heparin Sodium (Porcine) (Heparin -) 1,000 unit IVPUSH PRN PRN PRN Reason: Heparin Last Admin: 03/01/18 08:03 Dose: 1,000 unit Heparin Sodium (Porcine) (Heparin -) 5,000 unit IVPUSH PRN PRN PRN Reason: Heparin Metronidazole (Flagyl 500mg Premixed Ivpb -) 500 mg in 100 mls @ 100 mls/hr IVPB BID [facility] Last Admin: 03/01/18 09:23 Dose: 100 mls/hr Levofloxacin (Levaquin 250 Mg Premixed Ivpb -) 250 mg in 50 mls @ 50 mls/hr IVPB DAILY [facility]; Protocol Last Admin: 03/01/18 09:23 Dose: 50 mls/hr HEPARIN SOD,PORK IN 0.45% NACL (Heparin-1/2ns 25,000 Units/500) 25,000 units in 500 mls @ 20 mls/hr IVPB TITR [facility]; Protocol Last Titration: 03/01/18 07:50 Dose: 1,100 units/hr, 22 mls/hr Dextrose/Sodium Chloride (D5-1/3ns -) 500 mls @ 83 mls/hr IV ASDIR CHELLY Last Admin: 03/01/18 09:52 Dose: 83 mls/hr Lactulose (Cephulac (Oral Use)) 20 gm PO TID [facility] Last Admin: 03/01/18 06:16 Dose: Not Given Metoprolol Tartrate (Lopressor Injection -) 5 mg IVPUSH Q8H PRN PRN Reason: TACHYCARDIA Last Admin: 02/27/18 19:38 Dose: 5 mg Metoprolol Tartrate (Lopressor -) 75 mg PO BID [facility] Last Admin: 03/01/18 09:31 Dose: 75 mg Pantoprazole Sodium (Protonix Iv) 40 mg IVPUSH DAILY [facility] Last Admin: 03/01/18 09:23 Dose: 40 mg Rifaximin (Xifaxan -) 550 mg PO BID [facility] Last Admin: 03/01/18 09:39 Dose: 550 mg Thiamine HCl (Vitamin B1 -) 100 mg PO DAILY [facility] Last Admin: 03/01/18 09:28 Dose: 100 mg - Objective Vital Signs: Vital Signs Temperature 98.4 F 03/01/18 10:00 Pulse Rate 92 H 03/01/18 12:00 Respiratory Rate 18 03/01/18 12:00 Blood Pressure 93/62 03/01/18 12:00 O2 Sat by Pulse Oximetry (%) 98 03/01/18 09:00 Cardiovascular: Yes: S1, S2 Respiratory: Yes: Mechanically Ventilated Gastrointestinal: Yes: Normal Bowel Sounds, Soft Labs: CBC, BMP 03/01/18 05:30 03/01/18 05:30 INR, PTT INR 1.28 (0.83-1.09) H 02/22/18 05:30 Fibrinogen 290.0 mg/dL (238-498) 02/18/18 06:00 Problem List - Problems (1) Toxic metabolic encephalopathy Code(s): G92 - TOXIC ENCEPHALOPATHY (2) Cellulitis Code(s): L03.90 - CELLULITIS, UNSPECIFIED Qualifiers: Site of cellulitis: extremity Site of cellulitis of extremity: lower extremity Laterality: right Qualified Code(s): L03.115 - Cellulitis of right lower limb (3) Sepsis Code(s): A41.9 - SEPSIS, UNSPECIFIED ORGANISM (4) Artery occlusion Code(s): I70.90 - UNSPECIFIED ATHEROSCLEROSIS (5) Hypercalcemia Code(s): E83.52 - HYPERCALCEMIA (6) Paroxysmal atrial fibrillation Code(s): I48.0 - PAROXYSMAL ATRIAL FIBRILLATION (7) MELITA (acute kidney injury) Code(s): N17.9 - ACUTE KIDNEY FAILURE, UNSPECIFIED Assessment/Plan - Problems (1) Anemia Assessment/Plan: Monitor may need prbc (2) MELITA (acute kidney injury) Assessment/Plan: bun/cr is better from 2.8 to 2 on .ivf serum bicarb is now 22 corrected calcium Code(s): N17.9 - ACUTE KIDNEY FAILURE, UNSPECIFIED (3) Atrial fibrillation with RVR Assessment/Plan: heparin drip residential monitor rate control with metoprolol (4) Respiratory failure Assessment/Plan: intubated propofol/fentanyl aviating family decision regarding goals of care possible compassionate weaning vs tracheostomy Code(s): J96.90 - RESPIRATORY FAILURE, UNSP, UNSP W HYPOXIA OR HYPERCAPNIA (5) Toxic metabolic encephalopathy Assessment/Plan: Microbiology Orders 02/24/18 14:30 metroNIDAZOLE 500 MG PREMIXED [Flagyl 500Mg Premixed Ivpb -] 500 mg in 100 ml IVPB BID 02/26/18 12:45 levoFLOXacin 250 MG IVPB [Levaquin 250 mg Premixed Ivpb -] 250 mg in 50 ml IVPB DAILY Microbiology 02/26/18 13:30 Blood Culture - Preliminary Blood - Peripheral Venous NO GROWTH OBTAINED AFTER 48 HOURS, INCUBATION TO CONTINUE FOR 3 DAYS. 02/26/18 13:30 Blood Culture - Preliminary Blood - Peripheral Venous NO GROWTH OBTAINED AFTER 48 HOURS, INCUBATION TO CONTINUE FOR 3 DAYS. Code(s): G92 - TOXIC ENCEPHALOPATHY (6) Altered mental status Assessment/Plan: maybe secondary to toxic metabolic encephalopathy neurology consult appreciated on lactulose TID still persistently elevated Nh3 level on steroid as well dexamethasone - no improvement in mental status s/p plasmapheresis dvt ppx lovenox Code(s): R41.82 - ALTERED MENTAL STATUS, UNSPECIFIED
[2018-03-01] MEDS: HEPARIN SOD,PORK IN 0.45% NACL 25,000 UNITS/500 ML INFUS.BAG IVPB SCH (21:24)
[2018-03-02] MEDS: ACETAMINOPHEN 325 MG TABLET (FP) PO PRN (03:13)
[2018-03-02] MEDS: LACTULOSE 20 GM/30 ML UDC (FOR ORAL USE ONLY) PO SCH ×3 (05:43→21:21)
[2018-03-02 06:02] LABS: BASO % 0.4 % (0-2.0); EOS % 2.4 % (0-4.5); HEMATOCRIT 26.7 % (35.4-49); HEMOGLOBIN 8.8 GM/dL (11.7-16.9); LYMPH % 17.6 % (8-40); MCHC 32.9 g/dl (32.0-35.9); MEAN CELL VOLUME 91.1 fl (80-96); MEAN PLT VOLUME 8.9 fl (7.5-11.1); MONO % 2.6 % (3.8-10.2); PLATELET COUNT 116 K/MM3 (134-434); RBC 2.94 M/mm3 (4.00-5.60); RDW 16.6 % (11.9-15.9); WHITE BLOOD COUNT 3.9 K/mm3 (4.0-10.0)
[2018-03-02 06:50] LABS: ARTERIAL BLD GAS O2 SATURATION 97.2 % (90-98.9); ARTERIAL BLOOD GAS BASE EXCESS -2.9 meq/l (-2-2); ARTERIAL BLOOD GAS PCO2 29.7 mmHg (35-45); ARTERIAL BLOOD GAS PO2 95.4 mmHg (70-100); ARTERIAL BLOOD GAS pH 7.44 (7.35-7.45)
[2018-03-02 07:23] LABS: ALLENS TEST POSITIVE
[2018-03-02 08:11] LABS: ALK PHOS 114 U/L (45-117); ANION GAP 4 MMOL/L (8-16); BILIRUBIN,TOTAL 0.3 mg/dL (0.2-1); BLOOD UREA NITROGEN 63 mg/dL (7-18); CHLORIDE 120 mmol/L (98-107); CO2 21 mmol/L (21-32); CREATININE 2.2 mg/dL (0.55-1.3); GLUCOSE,RANDOM 130 mg/dL (74-106); MAGNESIUM 2.1 mg/dL (1.8-2.4); POTASSIUM 4.5 mmol/L (3.5-5.1); SGOT/AST 62 U/L (15-37); SGPT/ALT 78 U/L (13-61); SODIUM 145 mmol/L (136-145); TOT PROT 8.8 g/dl (6.4-8.2)
[2018-03-02 08:44] LABS: CALCIUM 6.4 mg/dL (8.5-10.1)
--- NOTE | 2018-03-02 08:52 | PN ---
Progress Note (short form) - Note Progress Note: Chief Complaint: Events noted, notes reviewed, remains intubated no change in neurological status, remains in atrial fibrillation on A/C with Heparin History of Present Illness: Seen and examined in the ICU. Events noted, notes reviewed, remains intubated no change in neurological status, remains in atrial fibrillation on A/C with Heparin Remains on B-Blockers [facility] coronary angiography performed 04/20/2016 revealed non-obstructive CAD, severe LV apical hypertrophic cardiomyopathy, mildly elevated right sided pressures/study is consistent with apical hypertrophy (spade-like) variant of hypertrophic cardiomyopathy Echocardiography dated 10/18/2017 Mod cLVH, severe PURVI, moderate TR RVSP 50-60 mmHg, moderate-severe MR Echocardiography dated 01/23/2018 Normal LV size with hyperdynamic LVEF 75%, mild BSH, normal RV size and function, severe LAE, moderate-severe MR, mod TR - Current Medication List Current Medications Acetaminophen (Tylenol -) 650 mg PO Q6H PRN PRN Reason: PAIN LEVEL 1 - 3 Last Admin: 03/02/18 03:13 Dose: 650 mg Acetaminophen (Tylenol Suppository -) 650 mg RC Q6H PRN PRN Reason: FEVER Allopurinol (Zyloprim -) 100 mg PO BID [facility] Last Admin: 03/01/18 21:27 Dose: 100 mg Chlorhexidine Gluconate (Peridex -) 15 ml MM BID [facility] Last Admin: 03/01/18 21:27 Dose: 15 ml Cholecalciferol (Vitamin D3 -) 1,000 unit PO DAILY [facility] Last Admin: 03/01/18 09:28 Dose: 1,000 unit Diphenhydramine HCl (Benadryl Injection -) 25 mg IVPB ONCE PRN PRN Reason: DURING PLASMAPHERESIS Heparin Sodium (Porcine) (Heparin -) 1,000 unit IVPUSH PRN PRN PRN Reason: Heparin Last Admin: 03/01/18 08:03 Dose: 1,000 unit Heparin Sodium (Porcine) (Heparin -) 5,000 unit IVPUSH PRN PRN PRN Reason: Heparin Metronidazole (Flagyl 500mg Premixed Ivpb -) 500 mg in 100 mls @ 100 mls/hr IVPB BID [facility] Last Admin: 03/01/18 21:25 Dose: 100 mls/hr Levofloxacin (Levaquin 250 Mg Premixed Ivpb -) 250 mg in 50 mls @ 50 mls/hr IVPB DAILY [facility]; Protocol Last Admin: 03/01/18 09:23 Dose: 50 mls/hr HEPARIN SOD,PORK IN 0.45% NACL (Heparin-1/2ns 25,000 Units/500) 25,000 units in 500 mls @ 20 mls/hr IVPB TITR [facility]; Protocol Last Titration: 03/02/18 00:29 Dose: 950 units/hr, 19 mls/hr Dextrose/Sodium Chloride (D5-1/3ns -) 500 mls @ 83 mls/hr IV ASDIR [facility] Last Admin: 03/01/18 09:52 Dose: 83 mls/hr Lactulose (Cephulac (Oral Use)) 20 gm PO TID [facility] Last Admin: 03/02/18 05:43 Dose: 20 gm Metoprolol Tartrate (Lopressor Injection -) 5 mg IVPUSH Q8H PRN PRN Reason: TACHYCARDIA Last Admin: 02/27/18 19:38 Dose: 5 mg Metoprolol Tartrate (Lopressor -) 75 mg PO BID [facility] Last Admin: 03/01/18 21:26 Dose: 75 mg Pantoprazole Sodium (Protonix Iv) 40 mg IVPUSH DAILY [facility] Last Admin: 03/01/18 09:23 Dose: 40 mg Rifaximin (Xifaxan -) 550 mg PO BID [facility] Last Admin: 03/01/18 21:26 Dose: 550 mg Thiamine HCl (Vitamin B1 -) 100 mg PO DAILY [facility] Last Admin: 03/01/18 09:28 Dose: 100 mg Review of Systems Unable to obtain - Objective Vital Signs: Last Vital Signs Temp Pulse Resp BP Pulse Ox 100.2 F H 79 21 H 130/68 98 03/02/18 02:00 03/02/18 08:00 03/02/18 08:00 03/02/18 08:00 03/01/18 09:00 Intake & Output 02/27/18 02/28/18 03/01/18 03/02/18 23:59 23:59 23:59 23:59 Intake Total 3900 2260 2050 698 Output Total 6299 226 8486 600 Balance 2700 1560 350 98 Weight 180 lb 3.2 oz 185 lb 4.8 oz 185 lb 4.8 oz Neck: Supple Negative JVD No Bruit Cardiovascular: S1 S2 Irregularly Irregular Grade 2/6 Systolic Murmur Apical Chest: Scattered Rhonchi Bilaterally Gastrointestinal: Soft Benign Normal Bowel Sounds Ext: No Edema Labs: CBC, BMP 03/02/18 05:30 03/02/18 05:30 Assessment/Plan ASSESSMENT: 1. Acute hypoxic respiratory failure, suspected aspiration pneumonia with sepsis syndrome 2. Toxic metabolic encephelopathy, rule out CVA 3. Acute on CKD, suspected myeloma kidney 4. Paraproteinemia confirmed multiple myeloma 5. History of bilateral SFA occlusion post thrombectomy, most likely embolic disease related to persistent atrial fibrillation with [id number] score of 6 6. CAD with evidence of demand ischemic injury, non obstructive CAD on R&c coronary angiogrpahy angina pectoris 7. 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 Persistent atrial fibrillation [id number] score of 6 currently on Heparin therapy 9. HTN 10. Anemia 11. Acalculous Cholecystitis 12. Ischemic hepatitis 13. Hypernatremia, resolved PLAN: 1. Continue Heparin with caution, transfuse to maintain Hg equal or > 8.0, as outlined in prior notes ideally A/C therapy to be continued indefinitely unless it is absolutely contraindicated considering his [id number] score of 6 2. Continue Lopressor 3. Antibiotics as per the primary team 4. Ventilator management as per the ICU team 5. As outlined in prior notes overall poor prognosis, family to decide regarding compassionate extubation versus tracheostomy Mabel Rolle MD
[2018-03-02] MEDS: DEXTROSE 5%-1/3 NS - 500 ML IV SCH (10:00)
[2018-03-02] MEDS: CHOLECALCIFEROL (VITAMIN D3) 1,000 UNIT TABLET (FP) PO SCH (10:01)
[2018-03-02] MEDS: THIAMINE HCL 100 MG TABLET (FP) PO SCH (10:01)
[2018-03-02] MEDS: METOPROLOL TARTRATE 50 MG TABLET (FP) PO SCH ×3 (10:01→21:22)
[2018-03-02] MEDS: ALLOPURINOL 100 MG TABLET (FP) PO SCH ×2 (10:01→21:21)
[2018-03-02] MEDS: RIFAXIMIN 550 MG TABLET (UD) PO SCH ×2 (10:01→21:21)
[2018-03-02] MEDS: PANTOPRAZOLE SODIUM 40 MG VIAL IVPUSH SCH (10:02)
[2018-03-02] MEDS: CHLORHEXIDINE GLUCONATE 0.12% 15ML CUP MM SCH ×2 (10:02→21:22)
--- NOTE | 2018-03-02 10:32 | PN ---
Progress Note, Physician Chief Complaint: The patient seen in the ICU. Poorly responsive. Intubated, and vent supported. Maintains good urine output. Tube feeding in progress. History of Present Illness: This is a 77 year old gentleman with hx of CKD, Afib on A/C, CAD, CKD, Hypertension, Hyperlipidemia, PVD who presented with AMS/Confusion and found to have TIGIST. The patient is intubated and supported by mechanical vent. In ICU. Poorly responsive. Was treated with plasmapheresis, Calcium supplemets. The patient remains in Tigist, non-oliguric, poorly responsive and with guarded prognosis. - Current Medication List Current Medications: Active Medications Acetaminophen (Tylenol -) 650 mg PO Q6H PRN PRN Reason: PAIN LEVEL 1 - 3 Last Admin: 03/02/18 03:13 Dose: 650 mg Acetaminophen (Tylenol Suppository -) 650 mg RC Q6H PRN PRN Reason: FEVER Allopurinol (Zyloprim -) 100 mg PO BID [facility] Last Admin: 03/02/18 10:01 Dose: 100 mg Chlorhexidine Gluconate (Peridex -) 15 ml MM BID [facility] Last Admin: 03/02/18 10:02 Dose: 15 ml Cholecalciferol (Vitamin D3 -) 1,000 unit PO DAILY [facility] Last Admin: 03/02/18 10:01 Dose: 1,000 unit Diphenhydramine HCl (Benadryl Injection -) 25 mg IVPB ONCE PRN PRN Reason: DURING PLASMAPHERESIS Heparin Sodium (Porcine) (Heparin -) 1,000 unit IVPUSH PRN PRN PRN Reason: Heparin Last Admin: 03/01/18 08:03 Dose: 1,000 unit Heparin Sodium (Porcine) (Heparin -) 5,000 unit IVPUSH PRN PRN PRN Reason: Heparin Metronidazole (Flagyl 500mg Premixed Ivpb -) 500 mg in 100 mls @ 100 mls/hr IVPB BID [facility] Last Admin: 03/02/18 10:00 Dose: 100 mls/hr Levofloxacin (Levaquin 250 Mg Premixed Ivpb -) 250 mg in 50 mls @ 50 mls/hr IVPB DAILY [facility]; Protocol Last Admin: 03/02/18 10:01 Dose: 50 mls/hr HEPARIN SOD,PORK IN 0.45% NACL (Heparin-1/2ns 25,000 Units/500) 25,000 units in 500 mls @ 20 mls/hr IVPB TITR [facility]; Protocol Last Titration: 03/02/18 10:14 Dose: 900 units/hr, 18 mls/hr Dextrose/Sodium Chloride (D5-1/3ns -) 500 mls @ 83 mls/hr IV ASDIR [facility] Last Admin: 03/02/18 10:00 Dose: 83 mls/hr Lactulose (Cephulac (Oral Use)) 20 gm PO TID [facility] Last Admin: 03/02/18 05:43 Dose: 20 gm Metoprolol Tartrate (Lopressor Injection -) 5 mg IVPUSH Q8H PRN PRN Reason: TACHYCARDIA Last Admin: 02/27/18 19:38 Dose: 5 mg Metoprolol Tartrate (Lopressor -) 75 mg PO BID [facility] Last Admin: 03/02/18 10:13 Dose: Not Given Pantoprazole Sodium (Protonix Iv) 40 mg IVPUSH DAILY [facility] Last Admin: 03/02/18 10:02 Dose: 40 mg Rifaximin (Xifaxan -) 550 mg PO BID [facility] Last Admin: 03/02/18 10:01 Dose: 550 mg Thiamine HCl (Vitamin B1 -) 100 mg PO DAILY [facility] Last Admin: 03/02/18 10:01 Dose: 100 mg - Objective Vital Signs: Vital Signs Temperature 99.4 F 03/02/18 08:00 Pulse Rate 93 H 03/02/18 08:00 Respiratory Rate 19 03/02/18 09:05 Blood Pressure 100/74 03/02/18 08:00 O2 Sat by Pulse Oximetry (%) 98 03/01/18 09:00 Constitutional: Yes: Cachectic Neck: Yes: Trachea Midline Cardiovascular: Yes: Tachycardia, S1, S2 Respiratory: Yes: Intubated, Mechanically Ventilated Gastrointestinal: Yes: Soft, Other (Orogastic tube feeding in progress.) Neurological: Yes: Unresponsive Labs: CBC, BMP 03/02/18 05:30 03/02/18 05:30 INR, PTT INR 1.28 (0.83-1.09) H 02/22/18 05:30 Fibrinogen 290.0 mg/dL (238-498) 02/18/18 06:00 Problem List - Problems (1) Multiple myeloma Code(s): C90.00 - MULTIPLE MYELOMA NOT HAVING ACHIEVED REMISSION Qualifiers: Multiple myeloma remission status: not in remission Qualified Code(s): C90.00 - Multiple myeloma not having achieved remission (2) TIGIST (acute kidney injury) Code(s): N17.9 - ACUTE KIDNEY FAILURE, UNSPECIFIED (3) Altered mental status Code(s): R41.82 - ALTERED MENTAL STATUS, UNSPECIFIED (4) Anemia Code(s): D64.9 - ANEMIA, UNSPECIFIED (5) Atrial fibrillation with RVR Code(s): I48.91 - UNSPECIFIED ATRIAL FIBRILLATION (6) Cellulitis Code(s): L03.90 - CELLULITIS, UNSPECIFIED Qualifiers: Site of cellulitis: extremity Site of cellulitis of extremity: lower extremity Laterality: right Qualified Code(s): L03.115 - Cellulitis of right lower limb (7) Hyperlipidemia Code(s): E78.5 - HYPERLIPIDEMIA, UNSPECIFIED Qualifiers: Hyperlipidemia type: pure hypercholesterolemia Qualified Code(s): E78.00 - Pure hypercholesterolemia, unspecified; E78.0 - Pure hypercholesterolemia (8) Sepsis Code(s): A41.9 - SEPSIS, UNSPECIFIED ORGANISM (9) Hypercalcemia Code(s): E83.52 - HYPERCALCEMIA Assessment/Plan 77 year old gentleman with hx of CKD, Afib on A/C, CAD, CKD, Hypertension, Hyperlipidemia, PVD who presented with AMS/Confusion and found to have TIGIST. TIGIST ATN vs. 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 tubular injury, US showed no stones or obstruction. AMS Newly diagnosed multiple myloma Anemia Hypercalcemia of Malignancy (PTH is low) Hyperdense lesion on US of the kidney Normal anion gap metabolic acidosis Hyperkalemia (r/o tumor lysis).. Serum K normal now. Overall prognosis remains poor. Will continue the supportive care. Juliann New MD
--- NOTE | 2018-03-02 10:41 | PN ---
Teaching Attending Note Name of Resident: Bola Griffith ATTENDING PHYSICIAN STATEMENT I saw and evaluated the patient. I reviewed the resident's note and discussed the case with the resident. I agree with the resident's findings and plan as documented. SUBJECTIVE: Pt seen and examined in the ICU. Remains intubated, poorly responsive. Low grade temp overnight. OBJECTIVE: Vital Signs Period Temp Pulse Resp BP Sys/Ariza Pulse Ox Last 24 Hr 98.7 F-100.2 F 81-106 15-24 93-109/55-76 Intake & Output 02/27/18 02/28/18 03/01/18 03/02/18 23:59 23:59 23:59 23:59 Intake Total 3900 2260 2050 698 Output Total 0204 685 0139 600 Balance 2700 1560 350 98 Weight 81.737 kg 84.051 kg 84.051 kg Gen: intubated, poorly responsive, tachypneic Heart: RRR Lung: scattered rhonchi Abd: soft, nontender Ext: + edema CBC, BMP 03/02/18 05:30 03/02/18 05:30 Active Medications Acetaminophen (Tylenol -) 650 mg PO Q6H PRN PRN Reason: PAIN LEVEL 1 - 3 Last Admin: 03/02/18 03:13 Dose: 650 mg Acetaminophen (Tylenol Suppository -) 650 mg RC Q6H PRN PRN Reason: FEVER Allopurinol (Zyloprim -) 100 mg PO BID [facility] Last Admin: 03/02/18 10:01 Dose: 100 mg Chlorhexidine Gluconate (Peridex -) 15 ml MM BID [facility] Last Admin: 03/02/18 10:02 Dose: 15 ml Cholecalciferol (Vitamin D3 -) 1,000 unit PO DAILY [facility] Last Admin: 03/02/18 10:01 Dose: 1,000 unit Diphenhydramine HCl (Benadryl Injection -) 25 mg IVPB ONCE PRN PRN Reason: DURING PLASMAPHERESIS Heparin Sodium (Porcine) (Heparin -) 1,000 unit IVPUSH PRN PRN PRN Reason: Heparin Last Admin: 03/01/18 08:03 Dose: 1,000 unit Heparin Sodium (Porcine) (Heparin -) 5,000 unit IVPUSH PRN PRN PRN Reason: Heparin Metronidazole (Flagyl 500mg Premixed Ivpb -) 500 mg in 100 mls @ 100 mls/hr IVPB BID [facility] Last Admin: 03/02/18 10:00 Dose: 100 mls/hr Levofloxacin (Levaquin 250 Mg Premixed Ivpb -) 250 mg in 50 mls @ 50 mls/hr IVPB DAILY [facility]; Protocol Last Admin: 03/02/18 10:01 Dose: 50 mls/hr HEPARIN SOD,PORK IN 0.45% NACL (Heparin-1/2ns 25,000 Units/500) 25,000 units in 500 mls @ 20 mls/hr IVPB TITR [facility]; Protocol Last Titration: 03/02/18 10:14 Dose: 900 units/hr, 18 mls/hr Dextrose/Sodium Chloride (D5-1/3ns -) 500 mls @ 83 mls/hr IV ASDIR [facility] Last Admin: 03/02/18 10:00 Dose: 83 mls/hr Lactulose (Cephulac (Oral Use)) 20 gm PO TID [facility] Last Admin: 03/02/18 05:43 Dose: 20 gm Metoprolol Tartrate (Lopressor Injection -) 5 mg IVPUSH Q8H PRN PRN Reason: TACHYCARDIA Last Admin: 02/27/18 19:38 Dose: 5 mg Metoprolol Tartrate (Lopressor -) 75 mg PO BID [facility] Last Admin: 03/02/18 10:13 Dose: Not Given Pantoprazole Sodium (Protonix Iv) 40 mg IVPUSH DAILY [facility] Last Admin: 03/02/18 10:02 Dose: 40 mg Rifaximin (Xifaxan -) 550 mg PO BID [facility] Last Admin: 03/02/18 10:01 Dose: 550 mg Thiamine HCl (Vitamin B1 -) 100 mg PO DAILY [facility] Last Admin: 03/02/18 10:01 Dose: 100 mg ASSESSMENT AND PLAN: Acute Hypoxic Respiratory Failure Altered Mental Status Metabolic Encephalopathy Pneumonia Acalculous Cholecystitis Multiple Myeloma Acute on Chronic Renal Failure Metabolic Acidosis LV Diastolic Dysfunction Atrial Fibrillation CAD +Troponins likely Demand Ischemia PAD Hyperlipidemia HTN - continue antibiotics - monitor urine output, creatinine - rate control - minimize sedation to assess mental status - spontaneous breathing trials as tolerated but would not extubate unless mental status improved - DVT/GI prophylaxis - continue discussions regarding goals of care, if unable to reach family will need tracheostomy as he is approaching 3 weeks intubated - palliative care input appreciated - continue ICU monitoring - poor overall prognosis for meaningful recovery critical care time spent in reviewing chart, evaluating patient and formulating plan 35 min
--- NOTE | 2018-03-02 10:52 | PN ---
Physical Exam: SUBJECTIVE: Patient seen and examined in the ICU. Remains intubated, poorly responsive off sedation. low grade temp overnight. No pressors. No gross change in overall mental status. GOC/family meeting initiated and ongoing. OBJECTIVE: Vital Signs Period Temp Pulse Resp BP Sys/Ariza Pulse Ox Last 24 Hr 98.7 F-100.2 F 81-106 15-24 93-109/55-76 GENERAL: Remains intubated, poorly responsive off sedation HEAD: NCAT EYES: sclera anicteric. ENT: Ears normal, nares patent, dry mucous membranes NECK: Trachea midline. LUNGS: bilateral diffuse rhonchi HEART: Tachycardic rate and irregular rhythm. ABDOMEN: Soft, nondistended NT EXTREMITIES: 2+ pulses, warm, well-perfused, no edema, scattered ulcers. NEUROLOGICAL: Cannot assess secondary to clinical condition. SKIN: Warm, dry, normal turgor, scattered ulcers on the legs Laboratory Results - last 24 hr 02/24/18 03/01/18 03/01/18 08:05 05:30 09:40 WBC RBC Hgb Hct MCV MCH MCHC RDW Plt Count MPV Absolute Neuts (auto) Total Counted 100 Neutrophils % Neutrophils % (Manual) 84.0 H Band Neutrophils % 2.0 Lymphocytes % Lymphocytes % (Manual) 11.0 Monocytes % Eosinophils % Basophils % Promyelocytes % (Man) 1 Nucleated RBC % Metamyelocytes 2 PTT (Actin FS) Puncture Site ABG pH ABG pCO2 at Pt Temp ABG pO2 at Pt Temp ABG HCO3 ABG O2 Sat (Measured) ABG O2 Content ABG Base Excess Vinny Test O2 Delivery Device Oxygen Flow Rate Vent Mode Vent Rate PEEP Pressure Support Vent Sodium Potassium Chloride Carbon Dioxide Anion Gap BUN Creatinine Creat Clearance w eGFR Random Glucose Calcium Phosphorus Magnesium Total Bilirubin AST ALT Alkaline Phosphatase Total Protein Albumin Blood Type B POSITIVE B POSITIVE Antibody Screen Negative Negative Crossmatch See Detail See Detail 03/01/18 03/01/18 03/02/18 13:41 20:00 05:30 WBC RBC Hgb Hct MCV MCH MCHC RDW Plt Count MPV Absolute Neuts (auto) Total Counted Neutrophils % Neutrophils % (Manual) Band Neutrophils % Lymphocytes % Lymphocytes % (Manual) Monocytes % Eosinophils % Basophils % Promyelocytes % (Man) Nucleated RBC % Metamyelocytes PTT (Actin FS) 90.8 H 83.4 H 85.3 H Puncture Site ABG pH ABG pCO2 at Pt Temp ABG pO2 at Pt Temp ABG HCO3 ABG O2 Sat (Measured) ABG O2 Content ABG Base Excess Vinny Test O2 Delivery Device Oxygen Flow Rate Vent Mode Vent Rate PEEP Pressure Support Vent Sodium Potassium Chloride Carbon Dioxide Anion Gap BUN Creatinine Creat Clearance w eGFR Random Glucose Calcium Phosphorus Magnesium Total Bilirubin AST ALT Alkaline Phosphatase Total Protein Albumin Blood Type Antibody Screen Crossmatch 03/02/18 03/02/18 03/02/18 05:30 05:30 06:00 WBC 3.9 L RBC 2.94 L Hgb 8.8 L Hct 26.7 L MCV 91.1 MCH 30.0 MCHC 32.9 RDW 16.6 H Plt Count 116 L MPV 8.9 Absolute Neuts (auto) 3.0 Total Counted Neutrophils % 77.0 Neutrophils % (Manual) Band Neutrophils % Lymphocytes % 17.6 D Lymphocytes % (Manual) Monocytes % 2.6 L Eosinophils % 2.4 Basophils % 0.4 Promyelocytes % (Man) Nucleated RBC % 5 H Metamyelocytes PTT (Actin FS) Puncture Site Right radial ABG pH 7.44 ABG pCO2 at Pt Temp 29.7 L ABG pO2 at Pt Temp 95.4 ABG HCO3 20.0 L ABG O2 Sat (Measured) 97.2 ABG O2 Content 12.4 L ABG Base Excess -2.9 L Vinny Test Positive O2 Delivery Device Vent Oxygen Flow Rate 40 Vent Mode A/c Vent Rate 14 PEEP 5.0 Pressure Support Vent 400 Sodium 145 Potassium 4.5 Chloride 120 H Carbon Dioxide 21 Anion Gap 4 L BUN 63 H Creatinine 2.2 H Creat Clearance w eGFR 29.02 Random Glucose 130 H Calcium 6.4 L* Phosphorus 3.0 Magnesium 2.1 Total Bilirubin 0.3 AST 62 H ALT 78 H Alkaline Phosphatase 114 Total Protein 8.8 H Albumin 1.0 L Blood Type Antibody Screen Crossmatch Active Medications Generic Name Dose Route Start Last Admin Trade Name Freq PRN Reason Stop Dose Admin Acetaminophen 650 mg 02/17/18 14:09 03/02/18 03:13 Tylenol - PO 650 mg Q6H PRN Administration PAIN LEVEL 1 - 3 Acetaminophen 650 mg 02/22/18 15:54 Tylenol Suppository - RC Q6H PRN FEVER Allopurinol 100 mg 02/16/18 10:00 03/02/18 10:01 Zyloprim - PO 100 mg BID [facility] Administration Chlorhexidine Gluconate 15 ml 02/17/18 23:45 03/02/18 10:02 Peridex - MM 15 ml BID [facility] Administration Cholecalciferol 1,000 unit 02/25/18 10:00 03/02/18 10:01 Vitamin D3 - PO 1,000 unit DAILY [facility] Administration Diphenhydramine HCl 25 mg 02/16/18 12:00 Benadryl Injection - IVPB ONCE PRN DURING PLASMAPHERESIS Heparin Sodium (Porcine) 1,000 unit 02/28/18 12:23 03/01/18 08:03 Heparin - IVPUSH 1,000 unit PRN PRN Administration Heparin Heparin Sodium (Porcine) 5,000 unit 02/28/18 12:23 Heparin - IVPUSH PRN PRN Heparin Metronidazole 500 mg in 100 mls @ 100 mls/hr 02/24/18 14:30 03/02/18 10:00 Flagyl 500mg Premixed Ivpb - IVPB 100 mls/hr BID [facility] Administration Levofloxacin 250 mg in 50 mls @ 50 mls/hr 02/26/18 12:45 03/02/18 10:01 Levaquin 250 Mg Premixed Ivpb - IVPB 50 mls/hr DAILY [facility] Administration Protocol HEPARIN SOD,PORK IN 0.45% NACL 25,000 units in 500 mls @ 20 mls/hr 02/28/18 13 :00 03/02/18 10:14 Heparin-1/2ns 25,000 Units/500 IVPB 900 units/hr TITR [facility] 18 mls/hr Titration Protocol 1,000 UNITS/HR Dextrose/Sodium Chloride 500 mls @ 83 mls/hr 03/01/18 09:15 03/02/18 10:00 D5-1/3ns - IV 83 mls/hr ASDIR [facility] Administration Lactulose 20 gm 02/16/18 09:38 03/02/18 05:43 Cephulac (Oral Use) PO 20 gm TID [facility] Administration Metoprolol Tartrate 5 mg 02/16/18 13:04 02/27/18 19:38 Lopressor Injection - IVPUSH 5 mg Q8H PRN Administration TACHYCARDIA Metoprolol Tartrate 75 mg 02/23/18 08:30 03/02/18 10:13 Lopressor - PO Not Given BID [facility] Pantoprazole Sodium 40 mg 02/14/18 12:00 03/02/18 10:02 Protonix Iv IVPUSH 40 mg DAILY [facility] Administration Rifaximin 550 mg 02/22/18 22:00 03/02/18 10:01 Xifaxan - PO 550 mg BID [facility] Administration Thiamine HCl 100 mg 02/06/18 22:12 03/02/18 10:01 Vitamin B1 - PO 100 mg DAILY [facility] Administration ASSESSMENT/PLAN: 77 yo m PMH of A-Fib, Acute on chronic kidney injury, CAD w stents, hypercalcemia, medication non-adherence, paraproteinemia, thromboembolic disease , diastolic heart dysfunction without failure, HTN, HLD, hypertrophic cardiomyopathy is here after a rapid response. He was on the floors when it was noticed that he has respiratory insufficiency and was desaturating, requiring ICU monitoring. GOC/family meeting initiated and ongoing. GI: metabolic encephalopathy -ammonia improving w/ lactulose and rifaximin -LFTs are also elevated but downtrending. transamintitis most likely secondary to ischemic hepatits which is multifactorial including sepsis, episodes of hypotension and hyperviscosity syndrome. acalculous cholecystitis? US shows thickened gallbladder wall, pericholecystic fluid, suspicious for acalculous cholecystitis. There was also mild dilatation of the CBD but that might be normal for age. -Spoke w/ IR, who feel image does not represent acalculous cholecystitis and does not require any IR drainage ID: No fevers recorded. - Rhonchi heard on Lung auscultation -RLL pneumonia bcx 02/26/18 neg off of ceftazidime Vancomycin Redosed 02/26/18 - c/w levaquin/flagyl. - ID on board - c/w rifaximin for elevated ammonia level Cardio: Afib -[id number] score of 6 - Lopressor 75 mg BID PO -IV metoprolol 5 mg PRN - diastolic dysfunction + hypertrophic cardiomyopathy - CAD with multiple stents - Cardio consulted and on board. off Xarelto 15 qd (renal dosing) while on heparin gtt. transfuse to maintain Hgb >8.0 s/p 1 u prbc 02/27/18, Heparin with caution considering the dropping Hg, transfuse to maintain Hg equal or > 8.0, as outlined in prior notes ideally A/C therapy to be continued indefinitely unless it is absolutely contraindicated considering his [id number] score of 6 - Sporadically goes in and out of V-Tach - Can give amio if v-tach is sustained and persistent. Pulm: - Intubated - Patient has b/l pleural effusions. - No pneumothorax - b/l diffuse rhonchi - infiltrate on CXR: Abx- Substituting levaquin for ceftazidime Vancomycin Redosed 02/26/18 - c/w levaquin/flagyl. Renal: - Acute on Chronic kidney injury MELITA ATN vs. 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 tubular injury, US showed no stones or obstruction, UA w/o protein but UPCR ~0.5 indicating non- albumin proteinuria) - Renal consulted and on board. Hyperkalemia (r/o tumor lysis) serum K is improved, s/p bicarb gtt D5 / NS 83cc/hr Neuro: - Patient is not alert or oriented. Remains intubated, poorly responsive off sedation - Head CT showed no acute pathology - Neuro consulted and on board. (Dr. Kuo + Dr. mejia) - Ammonia elevated - Patient receiving lactulose - c/w rifaximin for elevated ammonia. Heme/Onc: - monitor H/H - Will transfuse to keep hb > 8 - Patient not receiving plasmapharesis today. - Paraproteinemia - Patient fulfills new criteria for multiple myeloma with free kappa/ free lambda light chain ratio of 432 (>100 is diagnostic of myeloma) - Rew/Lambda ratio > 100 consistent with Multiple myeloma - M spike elevated elevated at 6.8 previously 4.7 -steroids being held at this time s/p 1 u prbc 02/27/18, Heparin with caution considering the dropping Hg, transfuse to maintain Hg equal or > 8.0, as outlined in prior notes ideally A/C therapy to be continued indefinitely unless it is absolutely contraindicated considering his [id number] score of 6 -s/p 1 u prbc 03/01/18...Hgb 8.8 Endo: - Parathyroid hormone WNL - PTH-borderline low appropriate given hypercalcemia, PTHrP low Prophylaxis: - Heparin with caution considering the dropping Hg, transfuse to maintain Hg equal or > 8.0, as outlined in prior notes ideally A/C therapy to be continued indefinitely unless it is absolutely contraindicated considering his [id number] score of 6 - Protonix F/E/N: F: D5 1/3 NS 83cc/hr E: Will replete lytes PRN N: tube feeds (low potassium feeds). with free water Code Status: Full Code - GOC/family meeting initiated and ongoing. if unable to reach family will need tracheostomy as he is approaching 3 weeks intubated - Compassionate extubation versus Tracheostomy Dispo: Patient will continue to receive ICU level care Visit type - Emergency Visit Emergency Visit: Yes ED Registration Date: 02/06/18 Care time: The patient presented to the Emergency Department on the above date and was hospitalized for further evaluation of their emergent condition. - New Patient This patient is new to me today: Yes Date on this admission: 03/02/18 - Critical Care Critical Care patient: Yes Total Critical Care Time (in minutes): 37 Critical Care Statement: The care of this patient involved high complexity decision making to prevent further life threatening deterioration of the patient 's condition and/or to evaluate & treat vital organ system(s) failure or risk of failure.
--- NOTE | 2018-03-02 11:18 | PN ---
Progress Note, Physician Chief Complaint: patient intubated low grade temp of 100.2 in icu - Current Medication List Current Medications: Active Medications Acetaminophen (Tylenol -) 650 mg PO Q6H PRN PRN Reason: PAIN LEVEL 1 - 3 Last Admin: 03/02/18 03:13 Dose: 650 mg Acetaminophen (Tylenol Suppository -) 650 mg RC Q6H PRN PRN Reason: FEVER Allopurinol (Zyloprim -) 100 mg PO BID [facility] Last Admin: 03/02/18 10:01 Dose: 100 mg Chlorhexidine Gluconate (Peridex -) 15 ml MM BID [facility] Last Admin: 03/02/18 10:02 Dose: 15 ml Cholecalciferol (Vitamin D3 -) 1,000 unit PO DAILY [facility] Last Admin: 03/02/18 10:01 Dose: 1,000 unit Diphenhydramine HCl (Benadryl Injection -) 25 mg IVPB ONCE PRN PRN Reason: DURING PLASMAPHERESIS Heparin Sodium (Porcine) (Heparin -) 1,000 unit IVPUSH PRN PRN PRN Reason: Heparin Last Admin: 03/01/18 08:03 Dose: 1,000 unit Heparin Sodium (Porcine) (Heparin -) 5,000 unit IVPUSH PRN PRN PRN Reason: Heparin Metronidazole (Flagyl 500mg Premixed Ivpb -) 500 mg in 100 mls @ 100 mls/hr IVPB BID [facility] Last Admin: 03/02/18 10:00 Dose: 100 mls/hr Levofloxacin (Levaquin 250 Mg Premixed Ivpb -) 250 mg in 50 mls @ 50 mls/hr IVPB DAILY [facility]; Protocol Last Admin: 03/02/18 10:01 Dose: 50 mls/hr HEPARIN SOD,PORK IN 0.45% NACL (Heparin-1/2ns 25,000 Units/500) 25,000 units in 500 mls @ 20 mls/hr IVPB TITR [facility]; Protocol Last Titration: 03/02/18 10:14 Dose: 900 units/hr, 18 mls/hr Dextrose/Sodium Chloride (D5-1/3ns -) 500 mls @ 83 mls/hr IV ASDIR [facility] Last Admin: 03/02/18 10:00 Dose: 83 mls/hr Lactulose (Cephulac (Oral Use)) 20 gm PO TID [facility] Last Admin: 03/02/18 05:43 Dose: 20 gm Metoprolol Tartrate (Lopressor Injection -) 5 mg IVPUSH Q8H PRN PRN Reason: TACHYCARDIA Last Admin: 02/27/18 19:38 Dose: 5 mg Metoprolol Tartrate (Lopressor -) 75 mg PO BID [facility] Last Admin: 03/02/18 10:13 Dose: Not Given Pantoprazole Sodium (Protonix Iv) 40 mg IVPUSH DAILY [facility] Last Admin: 03/02/18 10:02 Dose: 40 mg Rifaximin (Xifaxan -) 550 mg PO BID [facility] Last Admin: 03/02/18 10:01 Dose: 550 mg Thiamine HCl (Vitamin B1 -) 100 mg PO DAILY [facility] Last Admin: 03/02/18 10:01 Dose: 100 mg - Objective Vital Signs: Vital Signs Temperature 99.4 F 03/02/18 08:00 Pulse Rate 93 H 03/02/18 08:00 Respiratory Rate 19 03/02/18 09:05 Blood Pressure 100/74 03/02/18 08:00 O2 Sat by Pulse Oximetry (%) 98 03/01/18 09:00 Constitutional: Yes: Calm HENT: Yes: Other (ng tube intubated) Cardiovascular: Yes: Regular Rate and Rhythm, S1, S2 Respiratory: Yes: Mechanically Ventilated, Rhonchi Gastrointestinal: Yes: Normal Bowel Sounds, Soft Labs: CBC, BMP 03/02/18 05:30 03/02/18 05:30 INR, PTT INR 1.28 (0.83-1.09) H 02/22/18 05:30 Fibrinogen 290.0 mg/dL (238-498) 02/18/18 06:00 Problem List - Problems (1) Elevated LFTs Assessment/Plan: ultrasound of liver noted suggestive of acalculous cholecystitis, will get GI consult- noted lft trending down Code(s): R94.5 - ABNORMAL RESULTS OF LIVER FUNCTION STUDIES (2) MELITA (acute kidney injury) Assessment/Plan: MELITA vs ATN- iv calcium- repleted potassium now normal range- hyperkalemia improved ultrasound hyperdense lesion noted in left renal cortex Code(s): N17.9 - ACUTE KIDNEY FAILURE, UNSPECIFIED (3) Atrial fibrillation with RVR Assessment/Plan: heparin drip monitoring manager rate control with metoprolol (4) Respiratory failure Assessment/Plan: intubated propofol/fentanyl aviating family decision regarding goals of care possible compassionate weaning vs tracheostomy Code(s): J96.90 - RESPIRATORY FAILURE, UNSP, UNSP W HYPOXIA OR HYPERCAPNIA (5) Toxic metabolic encephalopathy Assessment/Plan: Microbiology 02/21/18 11:20 Urine - Urine Brenner Urine Culture - Final NO GROWTH OBTAINED 02/13/18 14:30 Urine - Urine Brenner Legionella Antigen - Final 02/13/18 14:30 Urine - Urine Brenner Streptococcus pneumoniae Antigen (M - Final 02/13/18 14:30 Sputum - Endotrachea Suction/Ventilator Gram Stain - Final 02/13/18 14:30 Sputum - Endotrachea Suction/Ventilator Sputum Culture - Final Stenotrophomon.(X.)Maltophilia 02/21/18 09:58 Blood - Peripheral Venous Blood Culture - Preliminary NO GROWTH OBTAINED AFTER 24 HOURS, INCUBATION TO CONTINUE FOR 4 DAYS. 02/21/18 09:50 Blood - Peripheral Venous Blood Culture - Preliminary NO GROWTH OBTAINED AFTER 24 HOURS, INCUBATION TO CONTINUE FOR 4 DAYS. 02/17/18 15:00 Blood - Peripheral Venous Blood Culture - Preliminary NO GROWTH OBTAINED AFTER 96 HOURS, INCUBATION TO CONTINUE FOR 1 DAYS. 02/17/18 14:00 Blood - Central Line Blood Culture - Preliminary NO GROWTH OBTAINED AFTER 96 HOURS, INCUBATION TO CONTINUE FOR 1 DAYS. RLL PNA levaquin/flagyl Code(s): G92 - TOXIC ENCEPHALOPATHY (6) Altered mental status Assessment/Plan: maybe secondary to toxic metabolic encephalopathy- neurology consult appreciated on lactulose TID still persistently elevated Nh3 level s/p dexamethasone - no improvement in mental status s/p plasmapheresis dvt ppx lovenox newly diagnosed Multiple Myeloma- anemia paraproteinemia, Code(s): R41.82 - ALTERED MENTAL STATUS, UNSPECIFIED
[2018-03-02 12:15] LABS: ANISOCYTOSIS 1+; MACROCYTOSIS 0; PLATELET ESTIMATE DECREASED
--- NOTE | 2018-03-02 14:40 | PN ---
Progress Note, Physician History of Present Illness: Unresponsive on ventilator Low grade temp Leukopenic BC no growth - Current Medication List Current Medications: Active Medications Acetaminophen (Tylenol -) 650 mg PO Q6H PRN PRN Reason: PAIN LEVEL 1 - 3 Last Admin: 03/02/18 03:13 Dose: 650 mg Acetaminophen (Tylenol Suppository -) 650 mg RC Q6H PRN PRN Reason: FEVER Allopurinol (Zyloprim -) 100 mg PO BID [facility] Last Admin: 03/02/18 10:01 Dose: 100 mg Chlorhexidine Gluconate (Peridex -) 15 ml MM BID [facility] Last Admin: 03/02/18 10:02 Dose: 15 ml Cholecalciferol (Vitamin D3 -) 1,000 unit PO DAILY [facility] Last Admin: 03/02/18 10:01 Dose: 1,000 unit Diphenhydramine HCl (Benadryl Injection -) 25 mg IVPB ONCE PRN PRN Reason: DURING PLASMAPHERESIS Heparin Sodium (Porcine) (Heparin -) 1,000 unit IVPUSH PRN PRN PRN Reason: Heparin Last Admin: 03/01/18 08:03 Dose: 1,000 unit Heparin Sodium (Porcine) (Heparin -) 5,000 unit IVPUSH PRN PRN PRN Reason: Heparin Metronidazole (Flagyl 500mg Premixed Ivpb -) 500 mg in 100 mls @ 100 mls/hr IVPB BID [facility] Last Admin: 03/02/18 10:00 Dose: 100 mls/hr Levofloxacin (Levaquin 250 Mg Premixed Ivpb -) 250 mg in 50 mls @ 50 mls/hr IVPB DAILY [facility]; Protocol Last Admin: 03/02/18 10:01 Dose: 50 mls/hr HEPARIN SOD,PORK IN 0.45% NACL (Heparin-1/2ns 25,000 Units/500) 25,000 units in 500 mls @ 20 mls/hr IVPB TITR [facility]; Protocol Last Titration: 03/02/18 10:14 Dose: 900 units/hr, 18 mls/hr Dextrose/Sodium Chloride (D5-1/3ns -) 500 mls @ 83 mls/hr IV [facility] Last Admin: 03/02/18 10:00 Dose: 83 mls/hr Lactulose (Cephulac (Oral Use)) 20 gm PO TID [facility] Last Admin: 03/02/18 05:43 Dose: 20 gm Metoprolol Tartrate (Lopressor Injection -) 5 mg IVPUSH Q8H PRN PRN Reason: TACHYCARDIA Last Admin: 02/27/18 19:38 Dose: 5 mg Metoprolol Tartrate (Lopressor -) 75 mg PO BID [facility] Last Admin: 03/02/18 10:13 Dose: Not Given Pantoprazole Sodium (Protonix Iv) 40 mg IVPUSH DAILY [facility] Last Admin: 03/02/18 10:02 Dose: 40 mg Rifaximin (Xifaxan -) 550 mg PO BID [facility] Last Admin: 03/02/18 10:01 Dose: 550 mg Thiamine HCl (Vitamin B1 -) 100 mg PO DAILY [facility] Last Admin: 03/02/18 10:01 Dose: 100 mg - Objective Vital Signs: Vital Signs Temperature 99.4 F 03/02/18 08:00 Pulse Rate 102 H 03/02/18 12:00 Respiratory Rate 20 03/02/18 14:16 Blood Pressure 103/78 03/02/18 12:00 O2 Sat by Pulse Oximetry (%) 99 03/02/18 09:00 Constitutional: Yes: No Distress Eyes: Yes: Conjunctiva Clear Cardiovascular: Yes: Regular Rate and Rhythm, S1, S2 Respiratory: Yes: Mechanically Ventilated Gastrointestinal: Yes: Normal Bowel Sounds, Soft. No: Tenderness Edema: Yes Labs: CBC, BMP 03/02/18 05:30 03/02/18 05:30 INR, PTT INR 1.28 (0.83-1.09) H 02/22/18 05:30 Fibrinogen 290.0 mg/dL (238-498) 02/18/18 06:00 Assessment/Plan Respiratory failure RLL pneumonia Acalculus Cholecystitis Toxic metabolic encephalopathy Renal failure Myeloma Hyperviscosity syndrome Continue levaquin/ flagyl Ventilatory support Prognosis poor
[2018-03-02] MEDS: HEPARIN SOD,PORK IN 0.45% NACL 25,000 UNITS/500 ML INFUS.BAG IVPB SCH (15:20)
[2018-03-02] MEDS ORDERED: PT OWN MED DRAWER 7, Y5N ONE (21:39)
--- NOTE | 2018-03-03 04:31 | PN ---
Progress Note (short form) - Note Progress Note: 2:30 AM Patient has been having loose bowel movements. Rectal tube insert for protection of decubiti ulcers. Noticed bright red blood from mouth, scanty in amount, most likely because patient has been bitting the tube. Fentanyl to be given PRN
[2018-03-03] MEDS: LACTULOSE 20 GM/30 ML UDC (FOR ORAL USE ONLY) PO SCH (05:19)
[2018-03-03 05:56] LABS: BASO % 0.6 % (0-2.0); EOS % 2.2 % (0-4.5); HEMATOCRIT 26.6 % (35.4-49); HEMOGLOBIN 8.7 GM/dL (11.7-16.9); LYMPH % 15.5 % (8-40); MCH 29.9 pg (25.7-33.7); MCHC 32.8 g/dl (32.0-35.9); MEAN CELL VOLUME 91.2 fl (80-96); MEAN PLT VOLUME 9.5 fl (7.5-11.1); NEUT % 78.7 % (42.8-82.8); PLATELET COUNT 118 K/MM3 (134-434); RBC 2.92 M/mm3 (4.00-5.60); RDW 16.5 % (11.9-15.9)
[2018-03-03 06:03] LABS: ALLENS TEST POSITIVE; ARTERIAL BLD GAS O2 SATURATION 96.3 % (90-98.9); ARTERIAL BLOOD GAS BASE EXCESS -3.7 meq/l (-2-2); ARTERIAL BLOOD GAS PCO2 32.9 mmHg (35-45); ARTERIAL BLOOD GAS PO2 88.9 mmHg (70-100)
[2018-03-03 06:49] LABS: ANISOCYTOSIS 1+
[2018-03-03 06:50] LABS: PLATELET ESTIMATE DECREASED
[2018-03-03 07:14] LABS: ALK PHOS 126 U/L (45-117); ANION GAP 3 MMOL/L (8-16); BILIRUBIN,TOTAL 0.3 mg/dL (0.2-1); BLOOD UREA NITROGEN 53 mg/dL (7-18); CHLORIDE 118 mmol/L (98-107); CO2 22 mmol/L (21-32); CREATININE 1.9 mg/dL (0.55-1.3); GLUCOSE,RANDOM 121 mg/dL (74-106); POTASSIUM 4.5 mmol/L (3.5-5.1); SGOT/AST 71 U/L (15-37); SGPT/ALT 71 U/L (13-61); SODIUM 142 mmol/L (136-145)
[2018-03-03 07:18] LABS: CALCIUM 6.5 mg/dL (8.5-10.1)
--- NOTE | 2018-03-03 07:38 | PN ---
Physical Exam: SUBJECTIVE: Patient seen and examined had diarrhoea overnight and rectal tube was inserted. Stool for c diff ordered. pt off sedation. tolerating tube feed. on ventilator support. OBJECTIVE: Vital Signs Period Temp Pulse Resp BP Sys/Ariza Pulse Ox Last 24 Hr 97.4 F-99.4 F 88-108 15-22 100-118/71-81 98-99 GENERAL: Remains intubated, poorly responsive off sedation HEAD: NCAT EYES: sclera anicteric. ENT: Ears normal, nares patent, dry mucous membranes NECK: Trachea midline. LUNGS: bilateral diffuse rhonchi HEART: Tachycardic rate and irregular rhythm. ABDOMEN: Soft, nondistended NT EXTREMITIES: warm, well-perfused, no edema, scattered ulcers. SKIN: Warm, dry, Laboratory Results - last 24 hr 02/24/18 03/02/18 03/02/18 08:05 05:30 05:30 WBC RBC Hgb Hct MCV MCH MCHC RDW Plt Count MPV Absolute Neuts (auto) Total Counted Neutrophils % Neutrophils % (Manual) 76.8 Band Neutrophils % 0.0 Lymphocytes % Lymphocytes % (Manual) 12.6 D Monocytes % Monocytes % (Manual) 1 L D Eosinophils % Eosinophils % (Manual) 5.3 H D Basophils % Basophils % (Manual) 0.0 Myelocytes % (Man) 3 H D Promyelocytes % (Man) 0 Blast Cells % (Manual) 0 Nucleated RBC % Metamyelocytes 1 D Hypochromia 0 Platelet Estimate Decreased Platelet Comment Polychromasia 0 Poikilocytosis 0 Anisocytosis 1+ Microcytosis 1+ Macrocytosis 0 PTT (Actin FS) 85.3 H Puncture Site ABG pH ABG pCO2 at Pt Temp ABG pO2 at Pt Temp ABG HCO3 ABG O2 Sat (Measured) ABG O2 Content ABG Base Excess Vinny Test O2 Delivery Device Oxygen Flow Rate Vent Mode Vent Rate Mechanical Rate PEEP Pressure Support Vent Sodium Potassium Chloride Carbon Dioxide Anion Gap BUN Creatinine Creat Clearance w eGFR Random Glucose Calcium Phosphorus Magnesium Total Bilirubin AST ALT Alkaline Phosphatase Total Protein Albumin Blood Type B POSITIVE Antibody Screen Negative Crossmatch See Detail 03/02/18 03/03/18 03/03/18 05:30 05:15 05:15 WBC 4.0 RBC 2.92 L Hgb 8.7 L Hct 26.6 L MCV 91.2 MCH 29.9 MCHC 32.8 RDW 16.5 H Plt Count 118 L MPV 9.5 Absolute Neuts (auto) 3.1 Total Counted 100 Neutrophils % 78.7 Neutrophils % (Manual) 75.0 Band Neutrophils % 3.0 Lymphocytes % 15.5 Lymphocytes % (Manual) 14.0 Monocytes % 3.0 L Monocytes % (Manual) 2 L D Eosinophils % 2.2 Eosinophils % (Manual) 6.0 H Basophils % 0.6 Basophils % (Manual) Myelocytes % (Man) Promyelocytes % (Man) Blast Cells % (Manual) Nucleated RBC % 6 H Metamyelocytes Hypochromia Platelet Estimate Decreased Platelet Comment No clumping noted Polychromasia Poikilocytosis Anisocytosis 1+ Microcytosis Macrocytosis PTT (Actin FS) 74.1 H Puncture Site ABG pH ABG pCO2 at Pt Temp ABG pO2 at Pt Temp ABG HCO3 ABG O2 Sat (Measured) ABG O2 Content ABG Base Excess Vinny Test O2 Delivery Device Oxygen Flow Rate Vent Mode Vent Rate Mechanical Rate PEEP Pressure Support Vent Sodium 145 Potassium 4.5 Chloride 120 H Carbon Dioxide 21 Anion Gap 4 L BUN 63 H Creatinine 2.2 H Creat Clearance w eGFR 29.02 Random Glucose 130 H Calcium 6.4 L* Phosphorus 3.0 Magnesium 2.1 Total Bilirubin 0.3 AST 62 H ALT 78 H Alkaline Phosphatase 114 Total Protein 8.8 H Albumin 1.0 L Blood Type Antibody Screen Crossmatch 03/03/18 03/03/18 05:15 06:00 WBC RBC Hgb Hct MCV MCH MCHC RDW Plt Count MPV Absolute Neuts (auto) Total Counted Neutrophils % Neutrophils % (Manual) Band Neutrophils % Lymphocytes % Lymphocytes % (Manual) Monocytes % Monocytes % (Manual) Eosinophils % Eosinophils % (Manual) Basophils % Basophils % (Manual) Myelocytes % (Man) Promyelocytes % (Man) Blast Cells % (Manual) Nucleated RBC % Metamyelocytes Hypochromia Platelet Estimate Platelet Comment Polychromasia Poikilocytosis Anisocytosis Microcytosis Macrocytosis PTT (Actin FS) Puncture Site Right radial ABG pH 7.40 ABG pCO2 at Pt Temp 32.9 L ABG pO2 at Pt Temp 88.9 ABG HCO3 20.0 L ABG O2 Sat (Measured) 96.3 ABG O2 Content 12.2 L ABG Base Excess -3.7 L Vinny Test Positive O2 Delivery Device Mech vent Oxygen Flow Rate 40% Vent Mode Ac/ prvc Vent Rate 14 Mechanical Rate Yes PEEP 5.0 Pressure Support Vent 500 Sodium 142 Potassium 4.5 Chloride 118 H Carbon Dioxide 22 Anion Gap 3 L BUN 53 H Creatinine 1.9 H Creat Clearance w eGFR 34.37 Random Glucose 121 H Calcium 6.5 L* Phosphorus 3.0 Magnesium 2.0 Total Bilirubin 0.3 AST 71 H ALT 71 H Alkaline Phosphatase 126 H Total Protein 9.0 H Albumin 1.0 L Blood Type Antibody Screen Crossmatch Active Medications Generic Name Dose Route Start Last Admin Trade Name Freq PRN Reason Stop Dose Admin Acetaminophen 650 mg 02/17/18 14:09 03/02/18 03:13 Tylenol - PO 650 mg Q6H PRN Administration PAIN LEVEL 1 - 3 Allopurinol 100 mg 02/16/18 10:00 03/02/18 21:21 Zyloprim - PO 100 mg BID [facility] Administration Chlorhexidine Gluconate 15 ml 02/17/18 23:45 03/02/18 21:22 Peridex - MM 15 ml BID [facility] Administration Cholecalciferol 1,000 unit 02/25/18 10:00 03/02/18 10:01 Vitamin D3 - PO 1,000 unit DAILY [facility] Administration Diphenhydramine HCl 25 mg 02/16/18 12:00 Benadryl Injection - IVPB ONCE PRN DURING PLASMAPHERESIS Fentanyl 25 mcg 03/02/18 18:07 03/03/18 04:55 Sublimaze Injection - IVPUSH 03/03/18 18:14 25 mcg Q2H PRN Administration PAIN LEVEL 7 - 10 Heparin Sodium (Porcine) 1,000 unit 02/28/18 12:23 03/01/18 08:03 Heparin - IVPUSH 1,000 unit PRN PRN Administration Heparin Heparin Sodium (Porcine) 5,000 unit 02/28/18 12:23 Heparin - IVPUSH PRN PRN Heparin Metronidazole 500 mg in 100 mls @ 100 mls/hr 02/24/18 14:30 03/02/18 21:21 Flagyl 500mg Premixed Ivpb - IVPB 100 mls/hr BID [facility] Administration Levofloxacin 250 mg in 50 mls @ 50 mls/hr 02/26/18 12:45 03/02/18 10:01 Levaquin 250 Mg Premixed Ivpb - IVPB 50 mls/hr DAILY [facility] Administration Protocol HEPARIN SOD,PORK IN 0.45% NACL 25,000 units in 500 mls @ 20 mls/hr 02/28/18 13 :00 03/03/18 06:34 Heparin-1/2ns 25,000 Units/500 IVPB 900 units/hr TITR [facility] 18 mls/hr Titration Protocol 1,000 UNITS/HR Dextrose/Sodium Chloride 500 mls @ 83 mls/hr 03/01/18 09:15 03/02/18 10:00 D5-1/3ns - IV 83 mls/hr [facility] Administration Lactulose 20 gm 02/16/18 09:38 03/03/18 05:19 Cephulac (Oral Use) PO 20 gm TID [facility] Administration Metoprolol Tartrate 5 mg 02/16/18 13:04 02/27/18 19:38 Lopressor Injection - IVPUSH 5 mg Q8H PRN Administration TACHYCARDIA Metoprolol Tartrate 75 mg 02/23/18 08:30 03/02/18 21:22 Lopressor - PO 75 mg BID [facility] Administration Pantoprazole Sodium 40 mg 02/14/18 12:00 03/02/18 10:02 Protonix Iv IVPUSH 40 mg DAILY [facility] Administration Rifaximin 550 mg 02/22/18 22:00 03/02/18 21:21 Xifaxan - PO 550 mg BID [facility] Administration Thiamine HCl 100 mg 02/06/18 22:12 03/02/18 10:01 Vitamin B1 - PO 100 mg DAILY [facility] Administration ASSESSMENT/PLAN: ASSESSMENT AND PLAN: Acute Hypoxic Respiratory Failure Altered Mental Status Metabolic Encephalopathy Pneumonia Multiple Myeloma Acute on Chronic Renal Failure Metabolic Acidosis LV Diastolic Dysfunction Atrial Fibrillation CAD +Troponins likely Demand Ischemia PAD Hyperlipidemia HTN - on ventilator support, off sedation, keep spo2> 90 - antibiotics as per id flagyl and levofloxacin - monitor urine output, creatinine - rate control with metoprolol - spontaneous breathing trials as tolerated but would not extubate unless mental status improved - on pantoprazole for gi frophylaxis - on heparin drip for afib - palliative care input appreciated - continue ICU monitoring - continue tube feed - stool for c diff and wbc ordered - stop lactulose and order ammonia - Stop IV fluid - ID, cardiology, hematology, nephrology, neurology on case Visit type - Emergency Visit Emergency Visit: Yes ED Registration Date: 02/06/18 Care time: The patient presented to the Emergency Department on the above date and was hospitalized for further evaluation of their emergent condition. - New Patient This patient is new to me today: No - Critical Care Critical Care patient: Yes Total Critical Care Time (in minutes): 45 Critical Care Statement: The care of this patient involved high complexity decision making to prevent further life threatening deterioration of the patient 's condition and/or to evaluate & treat vital organ system(s) failure or risk of failure.
--- NOTE | 2018-03-03 08:33 | PN ---
Progress Note (short form) - Note Progress Note: Renal follow up for Hypercalcemia/MELITA on vent via ET Tube no overnight events on NGT feeds with free water no pressers making urine Vital Signs Temperature 98.4 F 03/03/18 06:00 Pulse Rate 110 H 03/03/18 08:00 Respiratory Rate 23 H 03/03/18 08:00 Blood Pressure 90/51 L 03/03/18 08:00 O2 Sat by Pulse Oximetry (%) 98 03/03/18 07:35 Intake & Output 02/28/18 03/01/18 03/02/18 03/03/18 23:59 23:59 23:59 23:59 Intake Total 2260 2050 3267 2352 Output Total 700 1700 1350 500 Balance 2489 883 2095 1852 Weight 84.051 kg 84.051 kg NAD trace edema in b/l UE no LE edema CBC, BMP 03/03/18 05:15 03/03/18 05:15 Current Medications Acetaminophen (Tylenol -) 650 mg PO Q6H PRN PRN Reason: PAIN LEVEL 1 - 3 Last Admin: 03/02/18 03:13 Dose: 650 mg Allopurinol (Zyloprim -) 100 mg PO BID [facility] Last Admin: 03/02/18 21:21 Dose: 100 mg Chlorhexidine Gluconate (Peridex -) 15 ml MM BID [facility] Last Admin: 03/02/18 21:22 Dose: 15 ml Cholecalciferol (Vitamin D3 -) 1,000 unit PO DAILY [facility] Last Admin: 03/02/18 10:01 Dose: 1,000 unit Diphenhydramine HCl (Benadryl Injection -) 25 mg IVPB ONCE PRN PRN Reason: DURING PLASMAPHERESIS Fentanyl (Sublimaze Injection -) 25 mcg IVPUSH Q2H PRN PRN Reason: PAIN LEVEL 7 - 10 Stop: 03/03/18 18:14 Last Admin: 03/03/18 04:55 Dose: 25 mcg Heparin Sodium (Porcine) (Heparin -) 1,000 unit IVPUSH PRN PRN PRN Reason: Heparin Last Admin: 03/01/18 08:03 Dose: 1,000 unit Heparin Sodium (Porcine) (Heparin -) 5,000 unit IVPUSH PRN PRN PRN Reason: Heparin Metronidazole (Flagyl 500mg Premixed Ivpb -) 500 mg in 100 mls @ 100 mls/hr IVPB BID [facility] Last Admin: 03/02/18 21:21 Dose: 100 mls/hr Levofloxacin (Levaquin 250 Mg Premixed Ivpb -) 250 mg in 50 mls @ 50 mls/hr IVPB DAILY [facility]; Protocol Last Admin: 03/02/18 10:01 Dose: 50 mls/hr HEPARIN SOD,PORK IN 0.45% NACL (Heparin-1/2ns 25,000 Units/500) 25,000 units in 500 mls @ 20 mls/hr IVPB TITR [facility]; Protocol Last Titration: 03/03/18 06:34 Dose: 900 units/hr, 18 mls/hr Dextrose/Sodium Chloride (D5-1/3ns -) 500 mls @ 83 mls/hr IV ASDIR [facility] Last Admin: 03/02/18 10:00 Dose: 83 mls/hr Lactulose (Cephulac (Oral Use)) 20 gm PO TID [facility] Last Admin: 03/03/18 05:19 Dose: 20 gm Metoprolol Tartrate (Lopressor Injection -) 5 mg IVPUSH Q8H PRN PRN Reason: TACHYCARDIA Last Admin: 02/27/18 19:38 Dose: 5 mg Metoprolol Tartrate (Lopressor -) 75 mg PO BID [facility] Last Admin: 03/02/18 21:22 Dose: 75 mg Pantoprazole Sodium (Protonix Iv) 40 mg IVPUSH DAILY [facility] Last Admin: 03/02/18 10:02 Dose: 40 mg Rifaximin (Xifaxan -) 550 mg PO BID [facility] Last Admin: 03/02/18 21:21 Dose: 550 mg Thiamine HCl (Vitamin B1 -) 100 mg PO DAILY [facility] Last Admin: 03/02/18 10:01 Dose: 100 mg 77 year old gentleman with hx of CKD, Afib on A/C, CAD, CKD, Hypertension, Hyperlipidemia, PVD who presented with AMS/Confusion and found to have MELITA. #MELITA ATN vs. 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 tubular injury, US showed no stones or obstruction, UA w/o protein but UPCR ~0.5 indicating non- albumin proteinuria) #AMS #Newly diagnosed multiple myloma #Anemia #Hypercalcemia of Malignancy (PTH is low) #Hyperdense lesion on US of the kidney #Normal anion gap metabolic acidosis #Hyperkalemia (r/o tumor lysis) Renal function with gradual improvement thus far, remians non-oliguric continue tube feeds with free water no IVF needed at this time continue vent support goals of care discussions with family on-going by ICU staff prognosis is poor Mack Miller DO
[2018-03-03] MEDS: PANTOPRAZOLE SODIUM 40 MG VIAL IVPUSH SCH (09:14)
[2018-03-03] MEDS: RIFAXIMIN 550 MG TABLET (UD) PO SCH ×2 (09:14→23:06)
[2018-03-03] MEDS: METOPROLOL TARTRATE 50 MG TABLET (FP) PO SCH ×2 (09:14→23:06)
[2018-03-03] MEDS: ALLOPURINOL 100 MG TABLET (FP) PO SCH ×2 (09:14→23:06)
[2018-03-03] MEDS: CHOLECALCIFEROL (VITAMIN D3) 1,000 UNIT TABLET (FP) PO SCH (09:14)
[2018-03-03] MEDS: THIAMINE HCL 100 MG TABLET (FP) PO SCH (09:15)
[2018-03-03] MEDS: CHLORHEXIDINE GLUCONATE 0.12% 15ML CUP MM SCH ×2 (09:15→23:06)
--- NOTE | 2018-03-03 09:20 | PN ---
Progress Note (short form) - Note Progress Note: Chief Complaint: Events noted, notes reviewed, remains intubated no change in neurological status, remains in atrial fibrillation on A/C with Heparin History of Present Illness: Seen and examined in the ICU. 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 Echocardiography dated 10/18/2017 Mod cLVH, severe PURVI, moderate TR RVSP 50-60 mmHg, moderate-severe MR Echocardiography dated 01/23/2018 Normal LV size with hyperdynamic LVEF 75%, mild BSH, normal RV size and function, severe LAE, moderate-severe MR, mod TR - Current Medication List Current Medications Acetaminophen (Tylenol -) 650 mg PO Q6H PRN PRN Reason: PAIN LEVEL 1 - 3 Last Admin: 03/02/18 03:13 Dose: 650 mg Allopurinol (Zyloprim -) 100 mg PO BID [facility] Last Admin: 03/02/18 21:21 Dose: 100 mg Chlorhexidine Gluconate (Peridex -) 15 ml MM BID [facility] Last Admin: 03/02/18 21:22 Dose: 15 ml Cholecalciferol (Vitamin D3 -) 1,000 unit PO DAILY [facility] Last Admin: 03/02/18 10:01 Dose: 1,000 unit Diphenhydramine HCl (Benadryl Injection -) 25 mg IVPB ONCE PRN PRN Reason: DURING PLASMAPHERESIS Fentanyl (Sublimaze Injection -) 25 mcg IVPUSH Q2H PRN PRN Reason: PAIN LEVEL 7 - 10 Stop: 03/03/18 18:14 Last Admin: 03/03/18 04:55 Dose: 25 mcg Heparin Sodium (Porcine) (Heparin -) 1,000 unit IVPUSH PRN PRN PRN Reason: Heparin Last Admin: 03/01/18 08:03 Dose: 1,000 unit Heparin Sodium (Porcine) (Heparin -) 5,000 unit IVPUSH PRN PRN PRN Reason: Heparin Metronidazole (Flagyl 500mg Premixed Ivpb -) 500 mg in 100 mls @ 100 mls/hr IVPB BID [facility] Last Admin: 03/02/18 21:21 Dose: 100 mls/hr Levofloxacin (Levaquin 250 Mg Premixed Ivpb -) 250 mg in 50 mls @ 50 mls/hr IVPB DAILY [facility]; Protocol Last Admin: 03/02/18 10:01 Dose: 50 mls/hr HEPARIN SOD,PORK IN 0.45% NACL (Heparin-1/2ns 25,000 Units/500) 25,000 units in 500 mls @ 20 mls/hr IVPB TITR [facility]; Protocol Last Titration: 03/03/18 06:34 Dose: 900 units/hr, 18 mls/hr Metoprolol Tartrate (Lopressor Injection -) 5 mg IVPUSH Q8H PRN PRN Reason: TACHYCARDIA Last Admin: 02/27/18 19:38 Dose: 5 mg Metoprolol Tartrate (Lopressor -) 75 mg PO BID [facility] Last Admin: 03/02/18 21:22 Dose: 75 mg Pantoprazole Sodium (Protonix Iv) 40 mg IVPUSH DAILY [facility] Last Admin: 03/02/18 10:02 Dose: 40 mg Rifaximin (Xifaxan -) 550 mg PO BID [facility] Last Admin: 03/02/18 21:21 Dose: 550 mg Thiamine HCl (Vitamin B1 -) 100 mg PO DAILY [facility] Last Admin: 03/02/18 10:01 Dose: 100 mg Review of Systems Unable to obtain - Objective Vital Signs: Last Vital Signs Temp Pulse Resp BP Pulse Ox 98.4 F 110 H 23 H 90/51 L 98 03/03/18 06:00 03/03/18 08:00 03/03/18 08:00 03/03/18 08:00 03/03/18 07:35 Intake & Output 02/28/18 03/01/18 03/02/18 03/03/18 23:59 23:59 23:59 23:59 Intake Total 2260 2050 3267 2352 Output Total 700 1700 1350 500 Balance 3875 527 8139 1852 Weight 185 lb 4.8 oz 185 lb 4.8 oz Neck: Supple Negative JVD No Bruit Cardiovascular: S1 S2 Irregularly Irregular Grade 2/6 Systolic Murmur Apical Chest: Scattered Rhonchi Bilaterally Gastrointestinal: Soft Benign Normal Bowel Sounds Ext: No Edema Labs: CBC, BMP 03/03/18 05:15 03/03/18 05:15 Hepatic Panel Total Bilirubin 0.3 mg/dL (0.2-1) 03/03/18 05:15 AST 71 U/L (15-37) H 03/03/18 05:15 ALT 71 U/L (13-61) H 03/03/18 05:15 Alkaline Phosphatase 126 U/L (45-117) H 03/03/18 05:15 Albumin 1.0 g/dl (3.4-5.0) L 03/03/18 05:15 Assessment/Plan ASSESSMENT: 1. Acute hypoxic respiratory failure, suspected aspiration pneumonia with sepsis syndrome 2. Toxic metabolic encephelopathy, rule out CVA 3. Acute on CKD, suspected myeloma kidney 4. Paraproteinemia confirmed multiple myeloma 5. 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 CAD with evidence of demand ischemic injury, non obstructive CAD on [facility] coronary angiogrpahy angina pectoris 7. 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 Persistent atrial fibrillation [id number] score of 6 currently on Heparin therapy 9. HTN 10. Anemia/thrombocytopenia 11. Acalculous Cholecystitis 12. Ischemic hepatitis 13. Hypernatremia, resolved PLAN: 1. Continue Heparin with caution, transfuse to maintain Hg equal or > 8.0, as outlined in prior notes ideally A/C therapy to be continued indefinitely unless it is absolutely contraindicated considering his [id number] score of 6 2. Continue Lopressor, hemodynamics permitting 3. Antibiotics as per the primary team 4. Ventilator management as per the ICU team 5. As outlined in prior notes overall poor prognosis, family to decide regarding compassionate extubation versus tracheostomy Mabel Rolle MD
--- NOTE | 2018-03-03 09:43 | PN ---
Progress Note, Physician History of Present Illness: Unresponsive on ventilator Low grade temp Diarrhea reported. Lactulose stopped BC no growth - Current Medication List Current Medications: Active Medications Acetaminophen (Tylenol -) 650 mg PO Q6H PRN PRN Reason: PAIN LEVEL 1 - 3 Last Admin: 03/02/18 03:13 Dose: 650 mg Allopurinol (Zyloprim -) 100 mg PO BID [facility] Last Admin: 03/03/18 09:14 Dose: 100 mg Chlorhexidine Gluconate (Peridex -) 15 ml MM BID [facility] Last Admin: 03/03/18 09:15 Dose: 15 ml Cholecalciferol (Vitamin D3 -) 1,000 unit PO DAILY [facility] Last Admin: 03/03/18 09:14 Dose: 1,000 unit Diphenhydramine HCl (Benadryl Injection -) 25 mg IVPB ONCE PRN PRN Reason: DURING PLASMAPHERESIS Fentanyl (Sublimaze Injection -) 25 mcg IVPUSH Q2H PRN PRN Reason: PAIN LEVEL 7 - 10 Stop: 03/03/18 18:14 Last Admin: 03/03/18 04:55 Dose: 25 mcg Heparin Sodium (Porcine) (Heparin -) 1,000 unit IVPUSH PRN PRN PRN Reason: Heparin Last Admin: 03/01/18 08:03 Dose: 1,000 unit Heparin Sodium (Porcine) (Heparin -) 5,000 unit IVPUSH PRN PRN PRN Reason: Heparin Metronidazole (Flagyl 500mg Premixed Ivpb -) 500 mg in 100 mls @ 100 mls/hr IVPB BID [facility] Last Admin: 03/03/18 09:14 Dose: 100 mls/hr Levofloxacin (Levaquin 250 Mg Premixed Ivpb -) 250 mg in 50 mls @ 50 mls/hr IVPB DAILY [facility]; Protocol Last Admin: 03/03/18 09:14 Dose: 50 mls/hr HEPARIN SOD,PORK IN 0.45% NACL (Heparin-1/2ns 25,000 Units/500) 25,000 units in 500 mls @ 20 mls/hr IVPB TITR [facility]; Protocol Last Titration: 03/03/18 06:34 Dose: 900 units/hr, 18 mls/hr Metoprolol Tartrate (Lopressor Injection -) 5 mg IVPUSH Q8H PRN PRN Reason: TACHYCARDIA Last Admin: 02/27/18 19:38 Dose: 5 mg Metoprolol Tartrate (Lopressor -) 75 mg PO BID [facility] Last Admin: 03/03/18 09:14 Dose: 75 mg Pantoprazole Sodium (Protonix Iv) 40 mg IVPUSH DAILY [facility] Last Admin: 03/03/18 09:14 Dose: 40 mg Rifaximin (Xifaxan -) 550 mg PO BID [facility] Last Admin: 03/03/18 09:14 Dose: 550 mg Thiamine HCl (Vitamin B1 -) 100 mg PO DAILY [facility] Last Admin: 03/03/18 09:15 Dose: 100 mg - Objective Vital Signs: Vital Signs Temperature 98.4 F 03/03/18 06:00 Pulse Rate 110 H 03/03/18 08:00 Respiratory Rate 22 H 03/03/18 09:14 Blood Pressure 90/51 L 03/03/18 08:00 O2 Sat by Pulse Oximetry (%) 98 03/03/18 07:35 Constitutional: Yes: No Distress Cardiovascular: Yes: Regular Rate and Rhythm, S1, S2 Respiratory: Yes: Mechanically Ventilated Gastrointestinal: Yes: Normal Bowel Sounds, Soft. No: Tenderness Edema: Yes Labs: CBC, BMP 03/03/18 05:15 03/03/18 05:15 INR, PTT INR 1.28 (0.83-1.09) H 02/22/18 05:30 Fibrinogen 290.0 mg/dL (238-498) 02/18/18 06:00 Assessment/Plan Respiratory failure RLL pneumonia Acalculus Cholecystitis Toxic metabolic encephalopathy Renal failure Myeloma Hyperviscosity syndrome Diarrhea Continue levaquin day #5 / flagyl Check C difficile Ventilatory support Prognosis poor
--- NOTE | 2018-03-03 10:15 | PN ---
Teaching Attending Note Name of Resident: Shun Quick ATTENDING PHYSICIAN STATEMENT I saw and evaluated the patient. I reviewed the resident's note and discussed the case with the resident. I agree with the resident's findings and plan as documented. SUBJECTIVE: Pt seen and examined in the ICU. Clinically unchanged, remains intubated, poorly responsive off sedation. No fevers recorded. OBJECTIVE: Vital Signs Period Temp Pulse Resp BP Sys/Ariza Pulse Ox Last 24 Hr 97.4 F-98.4 F 88-110 15-23 90-118/51-81 98-98 Intake & Output 02/28/18 03/01/18 03/02/18 03/03/18 23:59 23:59 23:59 23:59 Intake Total 2260 2050 3267 2352 Output Total 700 1700 1350 500 Balance 2951 267 8677 1852 Weight 84.051 kg 84.051 kg Gen: intubated, poorly responsive Heart: RRR Lung: scattered rhonchi Abd: soft, nontender EXt: + UE edema CBC, BMP 03/03/18 05:15 03/03/18 05:15 Active Medications Acetaminophen (Tylenol -) 650 mg PO Q6H PRN PRN Reason: PAIN LEVEL 1 - 3 Last Admin: 03/02/18 03:13 Dose: 650 mg Allopurinol (Zyloprim -) 100 mg PO BID [facility] Last Admin: 03/03/18 09:14 Dose: 100 mg Chlorhexidine Gluconate (Peridex -) 15 ml MM BID [facility] Last Admin: 03/03/18 09:15 Dose: 15 ml Cholecalciferol (Vitamin D3 -) 1,000 unit PO DAILY [facility] Last Admin: 03/03/18 09:14 Dose: 1,000 unit Diphenhydramine HCl (Benadryl Injection -) 25 mg IVPB ONCE PRN PRN Reason: DURING PLASMAPHERESIS Fentanyl (Sublimaze Injection -) 25 mcg IVPUSH Q2H PRN PRN Reason: PAIN LEVEL 7 - 10 Stop: 03/03/18 18:14 Last Admin: 03/03/18 04:55 Dose: 25 mcg Heparin Sodium (Porcine) (Heparin -) 1,000 unit IVPUSH PRN PRN PRN Reason: Heparin Last Admin: 03/01/18 08:03 Dose: 1,000 unit Heparin Sodium (Porcine) (Heparin -) 5,000 unit IVPUSH PRN PRN PRN Reason: Heparin Metronidazole (Flagyl 500mg Premixed Ivpb -) 500 mg in 100 mls @ 100 mls/hr IVPB BID [facility] Last Admin: 03/03/18 09:14 Dose: 100 mls/hr Levofloxacin (Levaquin 250 Mg Premixed Ivpb -) 250 mg in 50 mls @ 50 mls/hr IVPB DAILY [facility]; Protocol Last Admin: 03/03/18 09:14 Dose: 50 mls/hr HEPARIN SOD,PORK IN 0.45% NACL (Heparin-1/2ns 25,000 Units/500) 25,000 units in 500 mls @ 20 mls/hr IVPB TITR [facility]; Protocol Last Titration: 03/03/18 06:34 Dose: 900 units/hr, 18 mls/hr Metoprolol Tartrate (Lopressor Injection -) 5 mg IVPUSH Q8H PRN PRN Reason: TACHYCARDIA Last Admin: 02/27/18 19:38 Dose: 5 mg Metoprolol Tartrate (Lopressor -) 75 mg PO BID [facility] Last Admin: 03/03/18 09:14 Dose: 75 mg Pantoprazole Sodium (Protonix Iv) 40 mg IVPUSH DAILY [facility] Last Admin: 03/03/18 09:14 Dose: 40 mg Rifaximin (Xifaxan -) 550 mg PO BID [facility] Last Admin: 03/03/18 09:14 Dose: 550 mg Thiamine HCl (Vitamin B1 -) 100 mg PO DAILY [facility] Last Admin: 03/03/18 09:15 Dose: 100 mg ASSESSMENT AND PLAN: Acute Hypoxic Respiratory Failure Altered Mental Status Metabolic Encephalopathy Pneumonia Acalculous Cholecystitis Multiple Myeloma Acute on Chronic Renal Failure Metabolic Acidosis LV Diastolic Dysfunction Atrial Fibrillation CAD +Troponins likely Demand Ischemia PAD Hyperlipidemia HTN - continue antibiotics - monitor urine output, creatinine - rate control - minimize sedation to assess mental status - spontaneous breathing trials as tolerated but would not extubate unless mental status improved - DVT/GI prophylaxis - continue discussions regarding goals of care, if unable to reach family will need tracheostomy as he is approaching 3 weeks intubated - palliative care input appreciated - continue ICU monitoring - poor overall prognosis for meaningful recovery critical care time spent in reviewing chart, evaluating patient and formulating plan 35 min
--- NOTE | 2018-03-03 11:08 | PN ---
Progress Note, Physician - Current Medication List Current Medications: Active Medications Acetaminophen (Tylenol -) 650 mg PO Q6H PRN PRN Reason: PAIN LEVEL 1 - 3 Last Admin: 03/02/18 03:13 Dose: 650 mg Allopurinol (Zyloprim -) 100 mg PO BID [facility] Last Admin: 03/03/18 09:14 Dose: 100 mg Chlorhexidine Gluconate (Peridex -) 15 ml MM BID [facility] Last Admin: 03/03/18 09:15 Dose: 15 ml Cholecalciferol (Vitamin D3 -) 1,000 unit PO DAILY [facility] Last Admin: 03/03/18 09:14 Dose: 1,000 unit Diphenhydramine HCl (Benadryl Injection -) 25 mg IVPB ONCE PRN PRN Reason: DURING PLASMAPHERESIS Fentanyl (Sublimaze Injection -) 25 mcg IVPUSH Q2H PRN PRN Reason: PAIN LEVEL 7 - 10 Stop: 03/03/18 18:14 Last Admin: 03/03/18 04:55 Dose: 25 mcg Heparin Sodium (Porcine) (Heparin -) 1,000 unit IVPUSH PRN PRN PRN Reason: Heparin Last Admin: 03/01/18 08:03 Dose: 1,000 unit Heparin Sodium (Porcine) (Heparin -) 5,000 unit IVPUSH PRN PRN PRN Reason: Heparin Metronidazole (Flagyl 500mg Premixed Ivpb -) 500 mg in 100 mls @ 100 mls/hr IVPB BID [facility] Last Admin: 03/03/18 09:14 Dose: 100 mls/hr Levofloxacin (Levaquin 250 Mg Premixed Ivpb -) 250 mg in 50 mls @ 50 mls/hr IVPB DAILY [facility]; Protocol Last Admin: 03/03/18 09:14 Dose: 50 mls/hr HEPARIN SOD,PORK IN 0.45% NACL (Heparin-1/2ns 25,000 Units/500) 25,000 units in 500 mls @ 20 mls/hr IVPB TITR [facility]; Protocol Last Titration: 03/03/18 06:34 Dose: 900 units/hr, 18 mls/hr Metoprolol Tartrate (Lopressor Injection -) 5 mg IVPUSH Q8H PRN PRN Reason: TACHYCARDIA Last Admin: 02/27/18 19:38 Dose: 5 mg Metoprolol Tartrate (Lopressor -) 75 mg PO BID [facility] Last Admin: 03/03/18 09:14 Dose: 75 mg Pantoprazole Sodium (Protonix Iv) 40 mg IVPUSH DAILY [facility] Last Admin: 03/03/18 09:14 Dose: 40 mg Rifaximin (Xifaxan -) 550 mg PO BID [facility] Last Admin: 03/03/18 09:14 Dose: 550 mg Thiamine HCl (Vitamin B1 -) 100 mg PO DAILY [facility] Last Admin: 03/03/18 09:15 Dose: 100 mg - Objective Vital Signs: Vital Signs Temperature 98.2 F 03/03/18 10:00 Pulse Rate 104 H 03/03/18 10:00 Respiratory Rate 21 H 03/03/18 10:00 Blood Pressure 102/72 03/03/18 10:00 O2 Sat by Pulse Oximetry (%) 98 03/03/18 07:35 Cardiovascular: Yes: S1, S2 Respiratory: Yes: Mechanically Ventilated Gastrointestinal: Yes: Normal Bowel Sounds, Soft Labs: CBC, BMP 03/03/18 05:15 03/03/18 05:15 INR, PTT INR 1.28 (0.83-1.09) H 02/22/18 05:30 Fibrinogen 290.0 mg/dL (238-498) 02/18/18 06:00 Problem List - Problems (1) Toxic metabolic encephalopathy Code(s): G92 - TOXIC ENCEPHALOPATHY (2) Cellulitis Code(s): L03.90 - CELLULITIS, UNSPECIFIED Qualifiers: Site of cellulitis: extremity Site of cellulitis of extremity: lower extremity Laterality: right Qualified Code(s): L03.115 - Cellulitis of right lower limb (3) Sepsis Code(s): A41.9 - SEPSIS, UNSPECIFIED ORGANISM (4) Artery occlusion Code(s): I70.90 - UNSPECIFIED ATHEROSCLEROSIS (5) Hypercalcemia Code(s): E83.52 - HYPERCALCEMIA (6) Paroxysmal atrial fibrillation Code(s): I48.0 - PAROXYSMAL ATRIAL FIBRILLATION (7) MELITA (acute kidney injury) Code(s): N17.9 - ACUTE KIDNEY FAILURE, UNSPECIFIED Assessment/Plan - Problems (1) Elevated LFTs Assessment/Plan: ultrasound of liver noted suggestive of acalculous cholecystitis, will get GI consult- noted lft trending down Code(s): R94.5 - ABNORMAL RESULTS OF LIVER FUNCTION STUDIES (2) MELITA (acute kidney injury) Assessment/Plan: MELITA vs ATN- iv calcium- repleted potassium now normal range- hyperkalemia improved ultrasound hyperdense lesion noted in left renal cortex Code(s): N17.9 - ACUTE KIDNEY FAILURE, UNSPECIFIED (3) Atrial fibrillation with RVR Assessment/Plan: heparin drip cardiac nurse specialist rate control with metoprolol (4) Respiratory failure Assessment/Plan: intubated propofol/fentanyl aviating family decision regarding goals of care possible compassionate weaning vs tracheostomy Code(s): J96.90 - RESPIRATORY FAILURE, UNSP, UNSP W HYPOXIA OR HYPERCAPNIA (5) Toxic metabolic encephalopathy Assessment/Plan: Microbiology 02/21/18 11:20 Urine - Urine Brenner Urine Culture - Final NO GROWTH OBTAINED 02/13/18 14:30 Urine - Urine Brenner Legionella Antigen - Final 02/13/18 14:30 Urine - Urine Brenner Streptococcus pneumoniae Antigen (M - Final 02/13/18 14:30 Sputum - Endotrachea Suction/Ventilator Gram Stain - Final 02/13/18 14:30 Sputum - Endotrachea Suction/Ventilator Sputum Culture - Final Stenotrophomon.(X.)Maltophilia 02/21/18 09:58 Blood - Peripheral Venous Blood Culture - Preliminary NO GROWTH OBTAINED AFTER 24 HOURS, INCUBATION TO CONTINUE FOR 4 DAYS. 02/21/18 09:50 Blood - Peripheral Venous Blood Culture - Preliminary NO GROWTH OBTAINED AFTER 24 HOURS, INCUBATION TO CONTINUE FOR 4 DAYS. 02/17/18 15:00 Blood - Peripheral Venous Blood Culture - Preliminary NO GROWTH OBTAINED AFTER 96 HOURS, INCUBATION TO CONTINUE FOR 1 DAYS. 02/17/18 14:00 Blood - Central Line Blood Culture - Preliminary NO GROWTH OBTAINED AFTER 96 HOURS, INCUBATION TO CONTINUE FOR 1 DAYS. RLL PNA levaquin/flagyl Code(s): G92 - TOXIC ENCEPHALOPATHY (6) Altered mental status Assessment/Plan: maybe secondary to toxic metabolic encephalopathy- neurology consult appreciated on lactulose TID still persistently elevated Nh3 level s/p dexamethasone - no improvement in mental status s/p plasmapheresis dvt ppx lovenox newly diagnosed Multiple Myeloma- anemia paraproteinemia, Code(s): R41.82 - ALTERED MENTAL STATUS, UNSPECIFIED
[2018-03-03] MEDS: HEPARIN SOD,PORK IN 0.45% NACL 25,000 UNITS/500 ML INFUS.BAG IVPB SCH (18:36)
[2018-03-03] MEDS: METOPROLOL TARTRATE 5 MG/5 ML VIAL IVPUSH PRN (18:44)
[2018-03-04 05:51] LABS: HEMATOCRIT 24.9 % (35.4-49); HEMOGLOBIN 8.3 GM/dL (11.7-16.9); MCH 30.2 pg (25.7-33.7); MCHC 33.2 g/dl (32.0-35.9); MEAN CELL VOLUME 91.1 fl (80-96); MEAN PLT VOLUME 9.8 fl (7.5-11.1); PLATELET COUNT 114 K/MM3 (134-434); RBC 2.73 M/mm3 (4.00-5.60); RDW 16.3 % (11.9-15.9); WHITE BLOOD COUNT 4.5 K/mm3 (4.0-10.0)
[2018-03-04] MEDS ORDERED: PT OWN MED DRAWER 7, Y5N ONE ×2 (06:26→08:30)
--- NOTE | 2018-03-04 08:01 | PN ---
Progress Note (short form) - Note Progress Note: Chief Complaint: Events noted, notes reviewed, remains intubated with no change in neurological status, remains in atrial fibrillation on A/C with Heparin History of Present Illness: Seen and examined in the ICU. Events noted, notes reviewed, remains intubated with no change in neurological status, remains in atrial fibrillation on A/C with Heparin [facility] coronary angiography performed 04/20/2016 revealed non-obstructive CAD, severe LV apical hypertrophic cardiomyopathy, mildly elevated right sided pressures/study is consistent with apical hypertrophy (spade-like) variant of hypertrophic cardiomyopathy Echocardiography dated 10/18/2017 Mod cLVH, severe PURVI, moderate TR RVSP 50-60 mmHg, moderate-severe MR Echocardiography dated 01/23/2018 Normal LV size with hyperdynamic LVEF 75%, mild BSH, normal RV size and function, severe LAE, moderate-severe MR, mod TR - Current Medication List Current Medications Acetaminophen (Tylenol -) 650 mg PO Q6H PRN PRN Reason: PAIN LEVEL 1 - 3 Last Admin: 03/02/18 03:13 Dose: 650 mg Allopurinol (Zyloprim -) 100 mg PO BID [facility] Last Admin: 03/03/18 23:06 Dose: 100 mg Chlorhexidine Gluconate (Peridex -) 15 ml MM BID [facility] Last Admin: 03/03/18 23:06 Dose: 15 ml Cholecalciferol (Vitamin D3 -) 1,000 unit PO DAILY [facility] Last Admin: 03/03/18 09:14 Dose: 1,000 unit Diphenhydramine HCl (Benadryl Injection -) 25 mg IVPB ONCE PRN PRN Reason: DURING PLASMAPHERESIS Heparin Sodium (Porcine) (Heparin -) 1,000 unit IVPUSH PRN PRN PRN Reason: Heparin Last Admin: 03/01/18 08:03 Dose: 1,000 unit Heparin Sodium (Porcine) (Heparin -) 5,000 unit IVPUSH PRN PRN PRN Reason: Heparin Metronidazole (Flagyl 500mg Premixed Ivpb -) 500 mg in 100 mls @ 100 mls/hr IVPB BID [facility] Last Admin: 03/03/18 23:06 Dose: 100 mls/hr Levofloxacin (Levaquin 250 Mg Premixed Ivpb -) 250 mg in 50 mls @ 50 mls/hr IVPB DAILY [facility]; Protocol Last Admin: 03/03/18 09:14 Dose: 50 mls/hr HEPARIN SOD,PORK IN 0.45% NACL (Heparin-1/2ns 25,000 Units/500) 25,000 units in 500 mls @ 20 mls/hr IVPB TITR [facility]; Protocol Last Admin: 03/03/18 18:36 Dose: 900 units/hr, 18 mls/hr Lactobacillus Acidophilus (Bacid -) 1 tab PO DAILY [facility] Metoprolol Tartrate (Lopressor Injection -) 5 mg IVPUSH Q8H PRN PRN Reason: TACHYCARDIA Last Admin: 03/03/18 18:44 Dose: 5 mg Metoprolol Tartrate (Lopressor -) 75 mg PO BID [facility] Last Admin: 03/03/18 23:06 Dose: 75 mg Pantoprazole Sodium (Protonix Iv) 40 mg IVPUSH DAILY [facility] Last Admin: 03/03/18 09:14 Dose: 40 mg Rifaximin (Xifaxan -) 550 mg PO BID [facility] Last Admin: 03/03/18 23:06 Dose: 550 mg Thiamine HCl (Vitamin B1 -) 100 mg PO DAILY [facility] Last Admin: 03/03/18 09:15 Dose: 100 mg Review of Systems Unable to obtain - Objective Vital Signs: Last Vital Signs Temp Pulse Resp BP Pulse Ox 97.8 F 88 19 100/62 99 03/04/18 02:00 03/04/18 06:00 03/04/18 06:45 03/04/18 06:00 03/04/18 00:44 Intake & Output 03/01/18 03/02/18 03/03/18 03/04/18 23:59 23:59 23:59 23:59 Intake Total 2050 3267 4075 1416 Output Total 1700 1350 1400 1000 Balance 350 1917 2675 416 Weight 185 lb 4.8 oz 196 lb 13.965 oz Neck: Supple Negative JVD No Bruit Cardiovascular: S1 S2 Irregularly Irregular Grade 2/6 Systolic Murmur Apical Chest: Scattered Rhonchi Bilaterally Gastrointestinal: Soft Benign Normal Bowel Sounds Ext: No Edema Labs: CBC, BMP 03/04/18 05:30 03/03/18 05:15 Assessment/Plan ASSESSMENT: 1. Acute hypoxic respiratory failure, suspected aspiration pneumonia with sepsis syndrome, remains intubated 2. Toxic metabolic encephelopathy, rule out CVA, no change in status 3. Acute on CKD, suspected myeloma kidney 4. Paraproteinemia confirmed multiple myeloma 5. History of bilateral SFA occlusion post thrombectomy, most likely embolic disease related to persistent atrial fibrillation with [id number] score of 6 6. CAD with evidence of demand ischemic injury, non obstructive CAD on R&c coronary angiogrpahy angina pectoris 7. 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 Persistent atrial fibrillation [id number] score of 6 currently on Heparin therapy 9. HTN 10. Anemia/thrombocytopenia 11. Acalculous Cholecystitis 12. Ischemic hepatitis 13. Hypernatremia, resolved PLAN: 1. Continue Heparin with caution, transfuse to maintain Hg equal or > 8.0, as outlined in prior notes ideally A/C therapy to be continued indefinitely unless it is absolutely contraindicated considering his [id number] score of 6 2. Continue Lopressor, hemodynamics permitting 3. Antibiotics as per the primary team 4. Ventilator management as per the ICU team 5. As outlined in prior notes overall poor prognosis (no improvement), family to decide regarding compassionate extubation versus tracheostomy Mabel Rolle MD
[2018-03-04 08:59] LABS: ALBUMIN 1.1 g/dl (3.4-5.0); ALK PHOS 132 U/L (45-117); ANION GAP 6 MMOL/L (8-16); BILIRUBIN,TOTAL 0.3 mg/dL (0.2-1); BLOOD UREA NITROGEN 50 mg/dL (7-18); CHLORIDE 118 mmol/L (98-107); CO2 19 mmol/L (21-32); CREATININE 1.7 mg/dL (0.55-1.3); GLUCOSE,RANDOM 101 mg/dL (74-106); MAGNESIUM 1.9 mg/dL (1.8-2.4); PHOSPHOROUS 3.1 mg/dL (2.5-4.9); POTASSIUM 4.5 mmol/L (3.5-5.1); SGOT/AST 55 U/L (15-37); SGPT/ALT 63 U/L (13-61); SODIUM 143 mmol/L (136-145); TOT PROT 8.9 g/dl (6.4-8.2)
[2018-03-04 09:05] LABS: CALCIUM 6.7 mg/dL (8.5-10.1)
--- NOTE | 2018-03-04 09:07 | PN ---
Progress Note (short form) - Note Progress Note: Renal follow up for Hypercalcemia/MELITA Pt seen and examined in the ICU on Vent, FiO2 40% not responsive no overnight events making urine on tube feeds Vital Signs Temperature 97.8 F 03/04/18 02:00 Pulse Rate 101 H 03/04/18 08:00 Respiratory Rate 23 H 03/04/18 08:00 Blood Pressure 119/80 03/04/18 08:00 O2 Sat by Pulse Oximetry (%) 99 03/04/18 00:44 Intake & Output 03/01/18 03/02/18 03/03/18 03/04/18 23:59 23:59 23:59 23:59 Intake Total 2050 3267 4075 1416 Output Total 1700 1350 1400 1000 Balance 350 1917 2675 416 Weight 84.051 kg 89.3 kg NAD on vent RRR, no M/R CTA soft NT/ND no LE edema CBC, BMP 03/04/18 05:30 03/04/18 05:30 Laboratory Tests 03/01/18 03/03/18 03/04/18 05:30 05:15 05:30 Creat Clearance w eGFR 39.07 Calcium 5.9 L* 6.5 L* 6.7 L* Phosphorus 3.3 3.0 3.1 Magnesium 2.1 2.0 1.9 AST 55 H ALT 63 H Alkaline Phosphatase 132 H Albumin 1.1 L 1.0 L 1.1 L Current Medications Acetaminophen (Tylenol -) 650 mg PO Q6H PRN PRN Reason: PAIN LEVEL 1 - 3 Last Admin: 03/02/18 03:13 Dose: 650 mg Allopurinol (Zyloprim -) 100 mg PO BID [facility] Last Admin: 03/03/18 23:06 Dose: 100 mg Chlorhexidine Gluconate (Peridex -) 15 ml MM BID [facility] Last Admin: 03/03/18 23:06 Dose: 15 ml Cholecalciferol (Vitamin D3 -) 1,000 unit PO DAILY [facility] Last Admin: 03/03/18 09:14 Dose: 1,000 unit Diphenhydramine HCl (Benadryl Injection -) 25 mg IVPB ONCE PRN PRN Reason: DURING PLASMAPHERESIS Heparin Sodium (Porcine) (Heparin -) 1,000 unit IVPUSH PRN PRN PRN Reason: Heparin Last Admin: 03/01/18 08:03 Dose: 1,000 unit Heparin Sodium (Porcine) (Heparin -) 5,000 unit IVPUSH PRN PRN PRN Reason: Heparin Metronidazole (Flagyl 500mg Premixed Ivpb -) 500 mg in 100 mls @ 100 mls/hr IVPB BID [facility] Last Admin: 03/03/18 23:06 Dose: 100 mls/hr Levofloxacin (Levaquin 250 Mg Premixed Ivpb -) 250 mg in 50 mls @ 50 mls/hr IVPB DAILY [facility]; Protocol Last Admin: 03/03/18 09:14 Dose: 50 mls/hr HEPARIN SOD,PORK IN 0.45% NACL (Heparin-1/2ns 25,000 Units/500) 25,000 units in 500 mls @ 20 mls/hr IVPB TITR [facility]; Protocol Last Admin: 03/03/18 18:36 Dose: 900 units/hr, 18 mls/hr Lactobacillus Acidophilus (Bacid -) 1 tab PO DAILY [facility] Metoprolol Tartrate (Lopressor Injection -) 5 mg IVPUSH Q8H PRN PRN Reason: TACHYCARDIA Last Admin: 03/03/18 18:44 Dose: 5 mg Metoprolol Tartrate (Lopressor -) 75 mg PO BID [facility] Last Admin: 03/03/18 23:06 Dose: 75 mg Pantoprazole Sodium (Protonix Iv) 40 mg IVPUSH DAILY [facility] Last Admin: 03/03/18 09:14 Dose: 40 mg Rifaximin (Xifaxan -) 550 mg PO BID [facility] Last Admin: 03/03/18 23:06 Dose: 550 mg Thiamine HCl (Vitamin B1 -) 100 mg PO DAILY [facility] Last Admin: 03/03/18 09:15 Dose: 100 mg 77 year old gentleman with hx of CKD, Afib on A/C, CAD, CKD, Hypertension, Hyperlipidemia, PVD who presented with AMS/Confusion and found to have MELITA. #MELITA ATN vs. 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 tubular injury, US showed no stones or obstruction, UA w/o protein but UPCR ~0.5 indicating non- albumin proteinuria) #AMS #Newly diagnosed multiple myloma #Anemia #Hypercalcemia of Malignancy (PTH is low) #Hyperdense lesion on US of the kidney #Normal anion gap metabolic acidosis #Hyperkalemia (r/o tumor lysis) Renal function stable at this time BP stable, not on pressers tolerating tube feeds trend renal function and electrolytes corrected Ca is now WNL Oncology follow up supportive care prognosis is poor Mack Miller DO
[2018-03-04] MEDS: ALLOPURINOL 100 MG TABLET (FP) PO SCH ×2 (09:17→22:36)
[2018-03-04] MEDS: RIFAXIMIN 550 MG TABLET (UD) PO SCH ×2 (09:17→22:36)
[2018-03-04] MEDS: CHOLECALCIFEROL (VITAMIN D3) 1,000 UNIT TABLET (FP) PO SCH (09:17)
[2018-03-04] MEDS: PANTOPRAZOLE SODIUM 40 MG VIAL IVPUSH SCH (09:17)
[2018-03-04] MEDS: LACTOBACILLUS ACIDOPHILUS 1 TABLET PO SCH (09:17)
[2018-03-04] MEDS: METOPROLOL TARTRATE 50 MG TABLET (FP) PO SCH ×2 (09:17→22:35)
[2018-03-04] MEDS: THIAMINE HCL 100 MG TABLET (FP) PO SCH (09:17)
[2018-03-04] MEDS: CHLORHEXIDINE GLUCONATE 0.12% 15ML CUP MM SCH ×2 (09:18→22:35)
--- NOTE | 2018-03-04 09:48 | PN ---
Progress Note, Physician - Current Medication List Current Medications: Active Medications Acetaminophen (Tylenol -) 650 mg PO Q6H PRN PRN Reason: PAIN LEVEL 1 - 3 Last Admin: 03/02/18 03:13 Dose: 650 mg Allopurinol (Zyloprim -) 100 mg PO BID [facility] Last Admin: 03/04/18 09:17 Dose: 100 mg Chlorhexidine Gluconate (Peridex -) 15 ml MM BID [facility] Last Admin: 03/04/18 09:18 Dose: 15 ml Cholecalciferol (Vitamin D3 -) 1,000 unit PO DAILY [facility] Last Admin: 03/04/18 09:17 Dose: 1,000 unit Diphenhydramine HCl (Benadryl Injection -) 25 mg IVPB ONCE PRN PRN Reason: DURING PLASMAPHERESIS Heparin Sodium (Porcine) (Heparin -) 1,000 unit IVPUSH PRN PRN PRN Reason: Heparin Last Admin: 03/01/18 08:03 Dose: 1,000 unit Heparin Sodium (Porcine) (Heparin -) 5,000 unit IVPUSH PRN PRN PRN Reason: Heparin Metronidazole (Flagyl 500mg Premixed Ivpb -) 500 mg in 100 mls @ 100 mls/hr IVPB BID [facility] Last Admin: 03/04/18 09:17 Dose: 100 mls/hr Levofloxacin (Levaquin 250 Mg Premixed Ivpb -) 250 mg in 50 mls @ 50 mls/hr IVPB DAILY [facility]; Protocol Last Admin: 03/04/18 09:17 Dose: 50 mls/hr HEPARIN SOD,PORK IN 0.45% NACL (Heparin-1/2ns 25,000 Units/500) 25,000 units in 500 mls @ 20 mls/hr IVPB TITR [facility]; Protocol Last Admin: 03/03/18 18:36 Dose: 900 units/hr, 18 mls/hr Lactobacillus Acidophilus (Bacid -) 1 tab PO DAILY [facility] Last Admin: 03/04/18 09:17 Dose: 1 tab Metoprolol Tartrate (Lopressor Injection -) 5 mg IVPUSH Q8H PRN PRN Reason: TACHYCARDIA Last Admin: 03/03/18 18:44 Dose: 5 mg Metoprolol Tartrate (Lopressor -) 75 mg PO BID [facility] Last Admin: 03/04/18 09:17 Dose: 75 mg Pantoprazole Sodium (Protonix Iv) 40 mg IVPUSH DAILY [facility] Last Admin: 03/04/18 09:17 Dose: 40 mg Rifaximin (Xifaxan -) 550 mg PO BID [facility] Last Admin: 03/04/18 09:17 Dose: 550 mg Thiamine HCl (Vitamin B1 -) 100 mg PO DAILY [facility] Last Admin: 03/04/18 09:17 Dose: 100 mg - Objective Vital Signs: Vital Signs Temperature 97.8 F 03/04/18 02:00 Pulse Rate 101 H 03/04/18 08:00 Respiratory Rate 14 03/04/18 09:00 Blood Pressure 119/80 03/04/18 08:00 O2 Sat by Pulse Oximetry (%) 99 03/04/18 00:44 Cardiovascular: Yes: S1, S2 Respiratory: Yes: Mechanically Ventilated Labs: CBC, BMP 03/04/18 05:30 03/04/18 05:30 INR, PTT INR 1.28 (0.83-1.09) H 02/22/18 05:30 Fibrinogen 290.0 mg/dL (238-498) 02/18/18 06:00 Problem List - Problems (1) Toxic metabolic encephalopathy Code(s): G92 - TOXIC ENCEPHALOPATHY (2) Cellulitis Code(s): L03.90 - CELLULITIS, UNSPECIFIED Qualifiers: Site of cellulitis: extremity Site of cellulitis of extremity: lower extremity Laterality: right Qualified Code(s): L03.115 - Cellulitis of right lower limb (3) Sepsis Code(s): A41.9 - SEPSIS, UNSPECIFIED ORGANISM (4) Artery occlusion Code(s): I70.90 - UNSPECIFIED ATHEROSCLEROSIS (5) Hypercalcemia Code(s): E83.52 - HYPERCALCEMIA (6) Paroxysmal atrial fibrillation Code(s): I48.0 - PAROXYSMAL ATRIAL FIBRILLATION (7) MELITA (acute kidney injury) Code(s): N17.9 - ACUTE KIDNEY FAILURE, UNSPECIFIED Assessment/Plan - Problems (1) Elevated LFTs Assessment/Plan: ultrasound of liver noted suggestive of acalculous cholecystitis, will get GI consult- noted lft trending down Code(s): R94.5 - ABNORMAL RESULTS OF LIVER FUNCTION STUDIES (2) MELITA (acute kidney injury) Assessment/Plan: MELITA vs ATN- iv calcium- repleted potassium now normal range- hyperkalemia improved ultrasound hyperdense lesion noted in left renal cortex Code(s): N17.9 - ACUTE KIDNEY FAILURE, UNSPECIFIED (3) Atrial fibrillation with RVR Assessment/Plan: heparin drip child monitor rate control with metoprolol (4) Respiratory failure Assessment/Plan: intubated propofol/fentanyl aviating family decision regarding goals of care possible compassionate weaning vs tracheostomy Code(s): J96.90 - RESPIRATORY FAILURE, UNSP, UNSP W HYPOXIA OR HYPERCAPNIA (5) Toxic metabolic encephalopathy Assessment/Plan: Microbiology 02/21/18 11:20 Urine - Urine Brenner Urine Culture - Final NO GROWTH OBTAINED 02/13/18 14:30 Urine - Urine Brenner Legionella Antigen - Final 02/13/18 14:30 Urine - Urine Brenner Streptococcus pneumoniae Antigen (M - Final 02/13/18 14:30 Sputum - Endotrachea Suction/Ventilator Gram Stain - Final 02/13/18 14:30 Sputum - Endotrachea Suction/Ventilator Sputum Culture - Final Stenotrophomon.(X.)Maltophilia 02/21/18 09:58 Blood - Peripheral Venous Blood Culture - Preliminary NO GROWTH OBTAINED AFTER 24 HOURS, INCUBATION TO CONTINUE FOR 4 DAYS. 02/21/18 09:50 Blood - Peripheral Venous Blood Culture - Preliminary NO GROWTH OBTAINED AFTER 24 HOURS, INCUBATION TO CONTINUE FOR 4 DAYS. 02/17/18 15:00 Blood - Peripheral Venous Blood Culture - Preliminary NO GROWTH OBTAINED AFTER 96 HOURS, INCUBATION TO CONTINUE FOR 1 DAYS. 02/17/18 14:00 Blood - Central Line Blood Culture - Preliminary NO GROWTH OBTAINED AFTER 96 HOURS, INCUBATION TO CONTINUE FOR 1 DAYS. RLL PNA levaquin/flagyl Code(s): G92 - TOXIC ENCEPHALOPATHY (6) Altered mental status Assessment/Plan: maybe secondary to toxic metabolic encephalopathy- neurology consult appreciated on lactulose TID still persistently elevated Nh3 level s/p dexamethasone - no improvement in mental status s/p plasmapheresis dvt ppx lovenox newly diagnosed Multiple Myeloma- anemia paraproteinemia, Code(s): R41.82 - ALTERED MENTAL STATUS, UNSPECIFIED
--- NOTE | 2018-03-04 11:18 | PN ---
Teaching Attending Note Name of Resident: Bola Griffith ATTENDING PHYSICIAN STATEMENT I saw and evaluated the patient. I reviewed the resident's note and discussed the case with the resident. I agree with the resident's findings and plan as documented. SUBJECTIVE: Pt seen and examined in the ICU. Remains intubated, opens eyes to voice. OBJECTIVE: Vital Signs Period Temp Pulse Resp BP Sys/Ariza Pulse Ox Last 24 Hr 97.4 F-97.9 F 83-131 14-40 100-136/62-92 98-99 Intake & Output 03/01/18 03/02/18 03/03/18 03/04/18 23:59 23:59 23:59 23:59 Intake Total 2050 3267 4075 1416 Output Total 1700 1350 1400 1000 Balance 350 1917 2675 416 Weight 84.051 kg 89.3 kg Gen: intubated, poorly responsive Heart: RRR Lung: scattered rhonchi Abd: soft, nontender Ext: + UE edema CBC, BMP 03/04/18 05:30 03/04/18 05:30 Active Medications Acetaminophen (Tylenol -) 650 mg PO Q6H PRN PRN Reason: PAIN LEVEL 1 - 3 Last Admin: 03/02/18 03:13 Dose: 650 mg Allopurinol (Zyloprim -) 100 mg PO BID [facility] Last Admin: 03/04/18 09:17 Dose: 100 mg Chlorhexidine Gluconate (Peridex -) 15 ml MM BID [facility] Last Admin: 03/04/18 09:18 Dose: 15 ml Cholecalciferol (Vitamin D3 -) 1,000 unit PO DAILY [facility] Last Admin: 03/04/18 09:17 Dose: 1,000 unit Diphenhydramine HCl (Benadryl Injection -) 25 mg IVPB ONCE PRN PRN Reason: DURING PLASMAPHERESIS Heparin Sodium (Porcine) (Heparin -) 1,000 unit IVPUSH PRN PRN PRN Reason: Heparin Last Admin: 03/01/18 08:03 Dose: 1,000 unit Heparin Sodium (Porcine) (Heparin -) 5,000 unit IVPUSH PRN PRN PRN Reason: Heparin Metronidazole (Flagyl 500mg Premixed Ivpb -) 500 mg in 100 mls @ 100 mls/hr IVPB BID [facility] Last Admin: 03/04/18 09:17 Dose: 100 mls/hr Levofloxacin (Levaquin 250 Mg Premixed Ivpb -) 250 mg in 50 mls @ 50 mls/hr IVPB DAILY [facility]; Protocol Last Admin: 03/04/18 09:17 Dose: 50 mls/hr HEPARIN SOD,PORK IN 0.45% NACL (Heparin-1/2ns 25,000 Units/500) 25,000 units in 500 mls @ 20 mls/hr IVPB TITR [facility]; Protocol Last Titration: 03/04/18 10:57 Dose: 850 units/hr, 17 mls/hr Lactobacillus Acidophilus (Bacid -) 1 tab PO DAILY [facility] Last Admin: 03/04/18 09:17 Dose: 1 tab Metoprolol Tartrate (Lopressor Injection -) 5 mg IVPUSH Q8H PRN PRN Reason: TACHYCARDIA Last Admin: 03/03/18 18:44 Dose: 5 mg Metoprolol Tartrate (Lopressor -) 75 mg PO BID [facility] Last Admin: 03/04/18 09:17 Dose: 75 mg Pantoprazole Sodium (Protonix Iv) 40 mg IVPUSH DAILY [facility] Last Admin: 03/04/18 09:17 Dose: 40 mg Rifaximin (Xifaxan -) 550 mg PO BID [facility] Last Admin: 03/04/18 09:17 Dose: 550 mg Thiamine HCl (Vitamin B1 -) 100 mg PO DAILY [facility] Last Admin: 03/04/18 09:17 Dose: 100 mg ASSESSMENT AND PLAN: Acute Hypoxic Respiratory Failure Altered Mental Status Metabolic Encephalopathy Pneumonia Acalculous Cholecystitis Multiple Myeloma Acute on Chronic Renal Failure Metabolic Acidosis LV Diastolic Dysfunction Atrial Fibrillation CAD +Troponins likely Demand Ischemia PAD Hyperlipidemia HTN - continue antibiotics - monitor urine output, creatinine - rate control - minimize sedation to assess mental status - spontaneous breathing trials as tolerated but would not extubate unless mental status improved - DVT/GI prophylaxis - continue discussions regarding goals of care, if unable to reach family will need tracheostomy as he is approaching 3 weeks intubated - palliative care input appreciated - continue ICU monitoring - poor overall prognosis for meaningful recovery critical care time spent in reviewing chart, evaluating patient and formulating plan 35 min
--- NOTE | 2018-03-04 11:27 | PN ---
Physical Exam: SUBJECTIVE: Patient seen and examined in the ICU. Remains intubated, poorly responsive off sedation but opens eyes to voice. No pressors. No gross change in overall mental status. GOC/family meeting initiated and ongoing. OBJECTIVE: Vital Signs Period Temp Pulse Resp BP Sys/Ariza Pulse Ox Last 24 Hr 97.4 F-97.9 F 83-131 14-40 100-136/62-92 98-99 GENERAL: Remains intubated, poorly responsive off sedation but opens eyes to voice. HEAD: NCAT EYES: sclera anicteric. ENT: Ears normal, nares patent, dry mucous membranes NECK: Trachea midline. LUNGS: bilateral diffuse rhonchi HEART: Tachycardic rate and irregular rhythm. ABDOMEN: Soft, nondistended NT EXTREMITIES: 2+ pulses, warm, well-perfused, no edema, scattered ulcers. NEUROLOGICAL: Cannot assess secondary to clinical condition. SKIN: Warm, dry, normal turgor, scattered ulcers on the legs Laboratory Results - last 24 hr 03/02/18 03/03/18 03/04/18 16:10 07:45 05:30 WBC 4.5 RBC 2.73 L Hgb 8.3 L Hct 24.9 L MCV 91.1 MCH 30.2 MCHC 33.2 RDW 16.3 H Plt Count 114 L MPV 9.8 PTT (Actin FS) Sodium Potassium Chloride Carbon Dioxide Anion Gap BUN Creatinine Creat Clearance w eGFR Random Glucose Calcium Phosphorus Magnesium Total Bilirubin AST ALT Alkaline Phosphatase Total Protein Albumin Stool Occult Blood Negative Negative 03/04/18 03/04/18 05:30 05:30 WBC RBC Hgb Hct MCV MCH MCHC RDW Plt Count MPV PTT (Actin FS) 81.1 H Sodium 143 Potassium 4.5 Chloride 118 H Carbon Dioxide 19 L Anion Gap 6 L BUN 50 H Creatinine 1.7 H Creat Clearance w eGFR 39.07 Random Glucose 101 Calcium 6.7 L* Phosphorus 3.1 Magnesium 1.9 Total Bilirubin 0.3 AST 55 H ALT 63 H Alkaline Phosphatase 132 H Total Protein 8.9 H Albumin 1.1 L Stool Occult Blood Active Medications Generic Name Dose Route Start Last Admin Trade Name Freq PRN Reason Stop Dose Admin Acetaminophen 650 mg 02/17/18 14:09 03/02/18 03:13 Tylenol - PO 650 mg Q6H PRN Administration PAIN LEVEL 1 - 3 Allopurinol 100 mg 02/16/18 10:00 03/04/18 09:17 Zyloprim - PO 100 mg BID [facility] Administration Chlorhexidine Gluconate 15 ml 02/17/18 23:45 03/04/18 09:18 Peridex - MM 15 ml BID [facility] Administration Cholecalciferol 1,000 unit 02/25/18 10:00 03/04/18 09:17 Vitamin D3 - PO 1,000 unit DAILY [facility] Administration Diphenhydramine HCl 25 mg 02/16/18 12:00 Benadryl Injection - IVPB ONCE PRN DURING PLASMAPHERESIS Heparin Sodium (Porcine) 1,000 unit 02/28/18 12:23 03/01/18 08:03 Heparin - IVPUSH 1,000 unit PRN PRN Administration Heparin Heparin Sodium (Porcine) 5,000 unit 02/28/18 12:23 Heparin - IVPUSH PRN PRN Heparin Metronidazole 500 mg in 100 mls @ 100 mls/hr 02/24/18 14:30 03/04/18 09:17 Flagyl 500mg Premixed Ivpb - IVPB 100 mls/hr BID [facility] Administration Levofloxacin 250 mg in 50 mls @ 50 mls/hr 02/26/18 12:45 03/04/18 09:17 Levaquin 250 Mg Premixed Ivpb - IVPB 50 mls/hr DAILY [facility] Administration Protocol HEPARIN SOD,PORK IN 0.45% NACL 25,000 units in 500 mls @ 20 mls/hr 02/28/18 13 :00 03/04/18 10:57 Heparin-1/2ns 25,000 Units/500 IVPB 850 units/hr TITR [facility] 17 mls/hr Titration Protocol 1,000 UNITS/HR Lactobacillus Acidophilus 1 tab 03/04/18 10:00 03/04/18 09:17 Bacid - PO 1 tab DAILY [facility] Administration Metoprolol Tartrate 5 mg 02/16/18 13:04 03/03/18 18:44 Lopressor Injection - IVPUSH 5 mg Q8H PRN Administration TACHYCARDIA Metoprolol Tartrate 75 mg 02/23/18 08:30 03/04/18 09:17 Lopressor - PO 75 mg BID [facility] Administration Pantoprazole Sodium 40 mg 02/14/18 12:00 03/04/18 09:17 Protonix Iv IVPUSH 40 mg DAILY [facility] Administration Rifaximin 550 mg 02/22/18 22:00 03/04/18 09:17 Xifaxan - PO 550 mg BID [facility] Administration Thiamine HCl 100 mg 02/06/18 22:12 03/04/18 09:17 Vitamin B1 - PO 100 mg DAILY [facility] Administration ASSESSMENT/PLAN: 77 yo m PMH of A-Fib, Acute on chronic kidney injury, CAD w stents, hypercalcemia, medication non-adherence, paraproteinemia, thromboembolic disease , diastolic heart dysfunction without failure, HTN, HLD, hypertrophic cardiomyopathy is here after a rapid response. He was on the floors when it was noticed that he has respiratory insufficiency and was desaturating, requiring ICU monitoring. GOC/family meeting initiated and ongoing. GI: metabolic encephalopathy -ammonia stable in 60s w/ rifaximin, lactulose dcd -LFTs elevated but downtrending. transamintitis most likely secondary to ischemic hepatits which is multifactorial including sepsis, episodes of hypotension and hyperviscosity syndrome. acalculous cholecystitis? US shows thickened gallbladder wall, pericholecystic fluid, suspicious for acalculous cholecystitis. There was also mild dilatation of the CBD but that might be normal for age. -Spoke w/ IR, who feel image does not represent acalculous cholecystitis and does not require any IR drainage ID: No fevers recorded. - Rhonchi heard on Lung auscultation -RLL pneumonia bcx 02/26/18 neg off of ceftazidime Vancomycin Redosed 02/26/18 C diff neg 03/04/18 - c/w levaquin/flagyl. - ID on board - c/w rifaximin for elevated ammonia level Cardio: Afib -[id number] score of 6 - Lopressor 75 mg BID PO -IV metoprolol 5 mg PRN - diastolic dysfunction + hypertrophic cardiomyopathy - CAD with multiple stents - Cardio consulted and on board. off Xarelto 15 qd (renal dosing) while on heparin gtt. transfuse to maintain Hgb >8.0 s/p 1 u prbc 02/27/18, Heparin with caution considering the dropping Hg, transfuse to maintain Hg equal or > 8.0, as outlined in prior notes ideally A/C therapy to be continued indefinitely unless it is absolutely contraindicated considering his [id number] score of 6 - Sporadically goes in and out of V-Tach - Can give amio if v-tach is sustained and persistent. Pulm: - Intubated - Patient has b/l pleural effusions. - No pneumothorax - b/l diffuse rhonchi - infiltrate on CXR: Abx- Substituting levaquin for ceftazidime Vancomycin Redosed 02/26/18 - c/w levaquin/flagyl. Renal: - Acute on Chronic kidney injury MELITA ATN vs. 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 tubular injury, US showed no stones or obstruction, UA w/o protein but UPCR ~0.5 indicating non- albumin proteinuria) - Renal consulted and on board. Hyperkalemia (r/o tumor lysis) serum K is improved, s/p bicarb gtt Neuro: - Patient is not alert or oriented. Remains intubated, poorly responsive off sedation but opens eyes to voice. - Head CT showed no acute pathology - Neuro consulted and on board. (Dr. Kuo + Dr. mejia) -ammonia stable in 60s w/ rifaximin, lactulose dcd Heme/Onc: - monitor H/H - Will transfuse to keep hb > 8 - Patient not receiving plasmapharesis today. - Paraproteinemia - Patient fulfills new criteria for multiple myeloma with free kappa/ free lambda light chain ratio of 432 (>100 is diagnostic of myeloma) - [place]/Lambda ratio > 100 consistent with Multiple myeloma - M spike elevated elevated at 6.8 previously 4.7 -steroids being held at this time s/p 1 u prbc 02/27/18, Heparin with caution considering the dropping Hg, transfuse to maintain Hg equal or > 8.0, as outlined in prior notes ideally A/C therapy to be continued indefinitely unless it is absolutely contraindicated considering his [id number] score of 6 -s/p 1 u prbc 03/01/18...Hgb 8.8....8.3 today Endo: - Parathyroid hormone WNL - PTH-borderline low appropriate given hypercalcemia, PTHrP low Prophylaxis: - Heparin with caution considering the dropping Hg, transfuse to maintain Hg equal or > 8.0, as outlined in prior notes ideally A/C therapy to be continued indefinitely unless it is absolutely contraindicated considering his [id number] score of 6 - Protonix F/E/N: F: no IVF at this time E: Will replete lytes PRN N: tube feeds (low potassium feeds). with free water Code Status: Full Code - GOC/family meeting initiated and ongoing. if unable to reach family will need tracheostomy as he is approaching 3 weeks intubated - Compassionate extubation versus Tracheostomy Dispo: Patient will continue to receive ICU level care Visit type - Emergency Visit Emergency Visit: Yes ED Registration Date: 02/06/18 Care time: The patient presented to the Emergency Department on the above date and was hospitalized for further evaluation of their emergent condition. - New Patient This patient is new to me today: Yes Date on this admission: 03/04/18 - Critical Care Critical Care patient: Yes Total Critical Care Time (in minutes): 38 Critical Care Statement: The care of this patient involved high complexity decision making to prevent further life threatening deterioration of the patient 's condition and/or to evaluate & treat vital organ system(s) failure or risk of failure.
[2018-03-04] MEDS: FENTANYL INJECTION 500 MCG in DEXTROSE 5%-WATER - 90 ML IVPB SCH (19:00)
[2018-03-04] MEDS: HEPARIN SOD,PORK IN 0.45% NACL 25,000 UNITS/500 ML INFUS.BAG IVPB SCH (22:27)
[2018-03-04] MEDS ORDERED: fentaNYL CITRATE 250 MCG/5 ML VIAL ONE (23:00)
[2018-03-05 05:50] LABS: BASO % 0.6 % (0-2.0); HEMATOCRIT 27.7 % (35.4-49); HEMOGLOBIN 9.1 GM/dL (11.7-16.9); LYMPH % 22.9 % (8-40); MCHC 32.9 g/dl (32.0-35.9); MEAN CELL VOLUME 91.2 fl (80-96); MEAN PLT VOLUME 9.7 fl (7.5-11.1); MONO % 5.2 % (3.8-10.2); NEUT % 70.3 % (42.8-82.8); PLATELET COUNT 117 K/MM3 (134-434); RBC 3.04 M/mm3 (4.00-5.60); RDW 15.9 % (11.9-15.9); WHITE BLOOD COUNT 6.1 K/mm3 (4.0-10.0)
[2018-03-05 07:15] LABS: ARTERIAL BLOOD GAS BASE EXCESS -4.4 meq/l (-2-2); ARTERIAL BLOOD GAS PCO2 34.6 mmHg (35-45); ARTERIAL BLOOD GAS pH 7.37 (7.35-7.45)
[2018-03-05 07:24] LABS: ALBUMIN 1.2 g/dl (3.4-5.0); ALK PHOS 131 U/L (45-117); ANION GAP 4 MMOL/L (8-16); BILIRUBIN,TOTAL 0.4 mg/dL (0.2-1); BLOOD UREA NITROGEN 55 mg/dL (7-18); CHLORIDE 115 mmol/L (98-107); CO2 21 mmol/L (21-32); CREATININE 1.8 mg/dL (0.55-1.3); GLUCOSE,RANDOM 121 mg/dL (74-106); MAGNESIUM 1.9 mg/dL (1.8-2.4); PHOSPHOROUS 3.6 mg/dL (2.5-4.9); POTASSIUM 4.9 mmol/L (3.5-5.1); SGOT/AST 59 U/L (15-37); SGPT/ALT 54 U/L (13-61); SODIUM 140 mmol/L (136-145); TOT PROT 9.8 g/dl (6.4-8.2)
[2018-03-05 07:37] LABS: ALLENS TEST POSITIVE
[2018-03-05 07:45] LABS: CALCIUM 6.9 mg/dL (8.5-10.1)
--- NOTE | 2018-03-05 07:53 | PN ---
Physical Exam: SUBJECTIVE: Patient seen and examined in the ICU. Remains intubated, poorly responsive but now on fentanyl gtt. opens eyes to voice. No pressors. No gross change in overall mental status. GOC/family meeting initiated and ongoing. OBJECTIVE: Vital Signs Period Temp Pulse Resp BP Sys/Ariza Pulse Ox Last 24 Hr 97.4 F-99.8 F 83-123 14-23 102-152/50-100 99-99 GENERAL: Remains intubated, poorly responsive off sedation but opens eyes to voice. HEAD: NCAT EYES: sclera anicteric. ENT: Ears normal, nares patent, dry mucous membranes NECK: Trachea midline. LUNGS: bilateral diffuse rhonchi HEART: reg rate and irregular rhythm. ABDOMEN: Soft, nondistended NT EXTREMITIES: 2+ pulses, warm, well-perfused, no edema, scattered ulcers. NEUROLOGICAL: difficult to assess secondary to clinical condition. gag reflex does not appear to be present. opens eyes to voice. corneal reflex+ SKIN: Warm, dry, normal turgor, scattered ulcers on the legs Laboratory Results - last 24 hr 03/01/18 03/04/18 03/04/18 09:40 05:30 05:30 WBC RBC Hgb Hct MCV MCH MCHC RDW Plt Count MPV Absolute Neuts (auto) Neutrophils % Lymphocytes % Monocytes % Eosinophils % Basophils % Nucleated RBC % PTT (Actin FS) 81.1 H Anticoagulation Therapy Puncture Site ABG pH ABG pCO2 at Pt Temp ABG pO2 at Pt Temp ABG HCO3 ABG O2 Sat (Measured) ABG O2 Content ABG Base Excess Vinny Test O2 Delivery Device Oxygen Flow Rate Vent Mode Vent Rate Mechanical Rate PEEP Pressure Support Vent Sodium 143 Potassium 4.5 Chloride 118 H Carbon Dioxide 19 L Anion Gap 6 L BUN 50 H Creatinine 1.7 H Creat Clearance w eGFR 39.07 Random Glucose 101 Calcium 6.7 L* Phosphorus 3.1 Magnesium 1.9 Total Bilirubin 0.3 AST 55 H ALT 63 H Alkaline Phosphatase 132 H Total Protein 8.9 H Albumin 1.1 L Blood Type B POSITIVE Antibody Screen Negative Crossmatch See Detail 03/05/18 03/05/18 03/05/18 05:30 05:30 05:30 WBC 6.1 RBC 3.04 L Hgb 9.1 L Hct 27.7 L MCV 91.2 MCH 30.0 MCHC 32.9 RDW 15.9 Plt Count 117 L MPV 9.7 Absolute Neuts (auto) 4.3 Neutrophils % 70.3 Lymphocytes % 22.9 D Monocytes % 5.2 Eosinophils % 1.0 Basophils % 0.6 Nucleated RBC % 4 H PTT (Actin FS) 66.2 H Anticoagulation Therapy Puncture Site ABG pH ABG pCO2 at Pt Temp ABG pO2 at Pt Temp ABG HCO3 ABG O2 Sat (Measured) ABG O2 Content ABG Base Excess Vinny Test O2 Delivery Device Oxygen Flow Rate Vent Mode Vent Rate Mechanical Rate PEEP Pressure Support Vent Sodium 140 Potassium 4.9 Chloride 115 H Carbon Dioxide 21 Anion Gap 4 L BUN 55 H Creatinine 1.8 H Creat Clearance w eGFR 36.58 Random Glucose 121 H Calcium 6.9 L* Phosphorus 3.6 Magnesium 1.9 Total Bilirubin 0.4 AST 59 H ALT 54 Alkaline Phosphatase 131 H Total Protein 9.8 H Albumin 1.2 L Blood Type Antibody Screen Crossmatch 03/05/18 06:35 WBC RBC Hgb Hct MCV MCH MCHC RDW Plt Count MPV Absolute Neuts (auto) Neutrophils % Lymphocytes % Monocytes % Eosinophils % Basophils % Nucleated RBC % PTT (Actin FS) Anticoagulation Therapy No Result Required. Puncture Site Right radial ABG pH 7.37 ABG pCO2 at Pt Temp 34.6 L ABG pO2 at Pt Temp 115.0 H D ABG HCO3 19.7 L ABG O2 Sat (Measured) 98.0 ABG O2 Content 13.8 L ABG Base Excess -4.4 L Vinny Test Positive O2 Delivery Device Oxy-vent Oxygen Flow Rate 40% Vent Mode Ac Vent Rate No Result Required. Mechanical Rate No Result Required. PEEP 5.0 Pressure Support Vent No Result Required. Sodium Potassium Chloride Carbon Dioxide Anion Gap BUN Creatinine Creat Clearance w eGFR Random Glucose Calcium Phosphorus Magnesium Total Bilirubin AST ALT Alkaline Phosphatase Total Protein Albumin Blood Type Antibody Screen Crossmatch Active Medications Generic Name Dose Route Start Last Admin Trade Name Freq PRN Reason Stop Dose Admin Acetaminophen 650 mg 02/17/18 14:09 03/02/18 03:13 Tylenol - PO 650 mg Q6H PRN Administration PAIN LEVEL 1 - 3 Allopurinol 100 mg 02/16/18 10:00 03/04/18 22:36 Zyloprim - PO 100 mg BID [facility] Administration Chlorhexidine Gluconate 15 ml 02/17/18 23:45 03/04/18 22:35 Peridex - MM 15 ml BID [facility] Administration Cholecalciferol 1,000 unit 02/25/18 10:00 03/04/18 09:17 Vitamin D3 - PO 1,000 unit DAILY [facility] Administration Diphenhydramine HCl 25 mg 02/16/18 12:00 Benadryl Injection - IVPB ONCE PRN DURING PLASMAPHERESIS Fentanyl 50 mcg 03/04/18 20:44 Sublimaze Injection - IVPUSH 03/05/18 20:44 Q1H PRN PAIN Heparin Sodium (Porcine) 1,000 unit 02/28/18 12:23 03/01/18 08:03 Heparin - IVPUSH 1,000 unit PRN PRN Administration Heparin Heparin Sodium (Porcine) 5,000 unit 02/28/18 12:23 Heparin - IVPUSH PRN PRN Heparin Metronidazole 500 mg in 100 mls @ 100 mls/hr 02/24/18 14:30 03/04/18 22:27 Flagyl 500mg Premixed Ivpb - IVPB 100 mls/hr BID [facility] Administration Levofloxacin 250 mg in 50 mls @ 50 mls/hr 02/26/18 12:45 03/04/18 09:17 Levaquin 250 Mg Premixed Ivpb - IVPB 50 mls/hr DAILY [facility] Administration Protocol HEPARIN SOD,PORK IN 0.45% NACL 25,000 units in 500 mls @ 20 mls/hr 02/28/18 13 :00 03/05/18 07:07 Heparin-1/2ns 25,000 Units/500 IVPB 850 units/hr TITR [facility] 17 mls/hr Titration Protocol 1,000 UNITS/HR Fentanyl 500 mcg/ Dextrose 100 mls @ 5 mls/hr 03/04/18 19:00 03/04/18 19:00 IVPB 25 mcg/hr TITR [facility] 5 mls/hr Administration Protocol 25 MCG/HR Lactobacillus Acidophilus 1 tab 03/04/18 10:00 03/04/18 09:17 Bacid - PO 1 tab DAILY [facility] Administration Metoprolol Tartrate 5 mg 02/16/18 13:04 03/03/18 18:44 Lopressor Injection - IVPUSH 5 mg Q8H PRN Administration TACHYCARDIA Metoprolol Tartrate 75 mg 02/23/18 08:30 03/04/18 22:35 Lopressor - PO 75 mg BID [facility] Administration Pantoprazole Sodium 40 mg 02/14/18 12:00 03/04/18 09:17 Protonix Iv IVPUSH 40 mg DAILY [facility] Administration Rifaximin 550 mg 02/22/18 22:00 03/04/18 22:36 Xifaxan - PO 550 mg BID [facility] Administration Thiamine HCl 100 mg 02/06/18 22:12 03/04/18 09:17 Vitamin B1 - PO 100 mg DAILY [facility] Administration ASSESSMENT/PLAN: 77 yo m PMH of A-Fib, Acute on chronic kidney injury, CAD w stents, hypercalcemia, medication non-adherence, paraproteinemia, thromboembolic disease , diastolic heart dysfunction without failure, HTN, HLD, hypertrophic cardiomyopathy is here after a rapid response. He was on the floors when it was noticed that he has respiratory insufficiency and was desaturating, requiring ICU monitoring. GOC/family meeting initiated and ongoing. Plan to have phone conference romeo. GI: metabolic encephalopathy -ammonia stable in 60s w/ rifaximin, s/p lactulose -LFTs elevated but downtrending. transamintitis most likely secondary to ischemic hepatits which is multifactorial including sepsis, episodes of hypotension and hyperviscosity syndrome. acalculous cholecystitis? US shows thickened gallbladder wall, pericholecystic fluid, suspicious for acalculous cholecystitis. There was also mild dilatation of the CBD but that might be normal for age. -Spoke w/ IR, who feel image does not represent acalculous cholecystitis and does not require any IR drainage ID: No fevers recorded. - Rhonchi heard on Lung auscultation -RLL pneumonia bcx 02/26/18 neg off of ceftazidime Vancomycin Redosed 02/26/18 C diff neg 03/04/18 - c/w levaquin/flagyl. - ID on board - c/w rifaximin for elevated ammonia level Cardio: Afib -[id number] score of 6 - Lopressor 75 mg BID PO -IV metoprolol 5 mg PRN - diastolic dysfunction + hypertrophic cardiomyopathy - CAD with multiple stents - Cardio consulted and on board. off Xarelto 15 qd (renal dosing) while on heparin gtt. transfuse to maintain Hgb >8.0 s/p 1 u prbc 02/27/18, Heparin with caution considering the dropping Hg, transfuse to maintain Hg equal or > 8.0, as outlined in prior notes ideally A/C therapy to be continued indefinitely unless it is absolutely contraindicated considering his [id number] score of 6 - Sporadically goes in and out of V-Tach - Can give amio if v-tach is sustained and persistent. Pulm: - Intubated - Patient has b/l pleural effusions. - No pneumothorax - b/l diffuse rhonchi - infiltrate on CXR: Abx- Substituting levaquin for ceftazidime Vancomycin Redosed 02/26/18 - c/w levaquin/flagyl. Renal: - Acute on Chronic kidney injury MELITA ATN vs. 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 tubular injury, US showed no stones or obstruction, UA w/o protein but UPCR ~0.5 indicating non- albumin proteinuria) - Renal consulted and on board. Hyperkalemia (r/o tumor lysis) serum K is improved, s/p bicarb gtt Neuro: - Patient is not alert or oriented. Remains intubated, poorly responsive but now on fentanyl gtt. opens eyes to voice - Head CT showed no acute pathology - Neuro consulted and on board. (Dr. Kuo + Dr. mejia) -ammonia stable in 60s w/ rifaximin, lactulose dcd Heme/Onc: - monitor H/H - Will transfuse to keep hb > 8 - Patient not receiving plasmapharesis today. - Paraproteinemia - Patient fulfills new criteria for multiple myeloma with free kappa/ free lambda light chain ratio of 432 (>100 is diagnostic of myeloma) - Ensley/Lambda ratio > 100 consistent with Multiple myeloma - M spike elevated elevated at 6.8 previously 4.7 -steroids being held at this time s/p 1 u prbc 02/27/18, Heparin with caution considering the dropping Hg, transfuse to maintain Hg equal or > 8.0, as outlined in prior notes ideally A/C therapy to be continued indefinitely unless it is absolutely contraindicated considering his [id number] score of 6 -s/p 1 u prbc 03/01/18...Hgb 8.8....8.3...9.1 today Endo: - Parathyroid hormone WNL - PTH-borderline low appropriate given hypercalcemia, PTHrP low Prophylaxis: - Heparin with caution considering the dropping Hg, transfuse to maintain Hg equal or > 8.0, as outlined in prior notes ideally A/C therapy to be continued indefinitely unless it is absolutely contraindicated considering his [id number] score of 6 - Protonix F/E/N: F: no IVF at this time E: Will replete lytes PRN N: tube feeds (low potassium feeds). with free water Code Status: Full Code - GOC/family meeting initiated and ongoing.Plan to have phone conference romeo. if unable to reach family will need tracheostomy as he is approaching 3 weeks intubated - Compassionate extubation versus Tracheostomy Dispo: Patient will continue to receive ICU level care Visit type - Emergency Visit Emergency Visit: Yes ED Registration Date: 02/06/18 Care time: The patient presented to the Emergency Department on the above date and was hospitalized for further evaluation of their emergent condition. - New Patient This patient is new to me today: Yes Date on this admission: 03/05/18 - Critical Care Critical Care patient: Yes Total Critical Care Time (in minutes): 38 Critical Care Statement: The care of this patient involved high complexity decision making to prevent further life threatening deterioration of the patient 's condition and/or to evaluate & treat vital organ system(s) failure or risk of failure.
[2018-03-05] MEDS: LACTOBACILLUS ACIDOPHILUS 1 TABLET PO SCH (09:00)
[2018-03-05] MEDS: RIFAXIMIN 550 MG TABLET (UD) PO SCH ×2 (09:00→22:07)
[2018-03-05] MEDS: CHOLECALCIFEROL (VITAMIN D3) 1,000 UNIT TABLET (FP) PO SCH (09:00)
[2018-03-05] MEDS: PANTOPRAZOLE SODIUM 40 MG VIAL IVPUSH SCH (09:01)
[2018-03-05] MEDS: THIAMINE HCL 100 MG TABLET (FP) PO SCH (09:01)
[2018-03-05] MEDS: METOPROLOL TARTRATE 50 MG TABLET (FP) PO SCH ×2 (09:01→22:07)
[2018-03-05] MEDS: ALLOPURINOL 100 MG TABLET (FP) PO SCH ×2 (09:01→22:07)
[2018-03-05] MEDS: CHLORHEXIDINE GLUCONATE 0.12% 15ML CUP MM SCH ×2 (09:02→22:07)
--- NOTE | 2018-03-05 10:29 | PN ---
Progress Note, Physician Chief Complaint: STILL INTUBATED AWAITING TRACHEOSTOMY TODAY D/W RESIDENT AWAITING FAMILY CALL BACK FOR CONSENT - Current Medication List Current Medications: Active Medications Acetaminophen (Tylenol -) 650 mg PO Q6H PRN PRN Reason: PAIN LEVEL 1 - 3 Last Admin: 03/02/18 03:13 Dose: 650 mg Allopurinol (Zyloprim -) 100 mg PO BID [facility] Last Admin: 03/05/18 09:01 Dose: 100 mg Chlorhexidine Gluconate (Peridex -) 15 ml MM BID [facility] Last Admin: 03/05/18 09:02 Dose: 15 ml Cholecalciferol (Vitamin D3 -) 1,000 unit PO DAILY [facility] Last Admin: 03/05/18 09:00 Dose: 1,000 unit Diphenhydramine HCl (Benadryl Injection -) 25 mg IVPB ONCE PRN PRN Reason: DURING PLASMAPHERESIS Fentanyl (Sublimaze Injection -) 50 mcg IVPUSH Q1H PRN PRN Reason: PAIN Stop: 03/05/18 20:44 Heparin Sodium (Porcine) (Heparin -) 1,000 unit IVPUSH PRN PRN PRN Reason: Heparin Last Admin: 03/01/18 08:03 Dose: 1,000 unit Heparin Sodium (Porcine) (Heparin -) 5,000 unit IVPUSH PRN PRN PRN Reason: Heparin Metronidazole (Flagyl 500mg Premixed Ivpb -) 500 mg in 100 mls @ 100 mls/hr IVPB BID [facility] Last Admin: 03/05/18 09:01 Dose: 100 mls/hr Levofloxacin (Levaquin 250 Mg Premixed Ivpb -) 250 mg in 50 mls @ 50 mls/hr IVPB DAILY [facility]; Protocol Last Admin: 03/05/18 09:01 Dose: 50 mls/hr HEPARIN SOD,PORK IN 0.45% NACL (Heparin-1/2ns 25,000 Units/500) 25,000 units in 500 mls @ 20 mls/hr IVPB TITR [facility]; Protocol Last Titration: 03/05/18 07:07 Dose: 850 units/hr, 17 mls/hr Fentanyl 500 mcg/ Dextrose 100 mls @ 5 mls/hr IVPB TITR [facility]; Protocol Last Admin: 03/04/18 19:00 Dose: 25 mcg/hr, 5 mls/hr Lactobacillus Acidophilus (Bacid -) 1 tab PO DAILY [facility] Last Admin: 03/05/18 09:00 Dose: 1 tab Metoprolol Tartrate (Lopressor Injection -) 5 mg IVPUSH Q8H PRN PRN Reason: TACHYCARDIA Last Admin: 03/03/18 18:44 Dose: 5 mg Metoprolol Tartrate (Lopressor -) 75 mg PO BID [facility] Last Admin: 03/05/18 09:01 Dose: 75 mg Pantoprazole Sodium (Protonix Iv) 40 mg IVPUSH DAILY [facility] Last Admin: 03/05/18 09:01 Dose: 40 mg Rifaximin (Xifaxan -) 550 mg PO BID [facility] Last Admin: 03/05/18 09:00 Dose: 550 mg Thiamine HCl (Vitamin B1 -) 100 mg PO DAILY [facility] Last Admin: 03/05/18 09:01 Dose: 100 mg - Objective Vital Signs: Vital Signs Temperature 99 F 03/05/18 06:00 Pulse Rate 117 H 03/05/18 08:13 Respiratory Rate 22 H 03/05/18 08:10 Blood Pressure 131/74 03/05/18 08:00 O2 Sat by Pulse Oximetry (%) 99 03/05/18 08:13 Constitutional: Yes: Other HENT: Yes: Other Cardiovascular: Yes: Pulse Irregular Respiratory: Yes: Diminished, Mechanically Ventilated Gastrointestinal: Yes: Distention Genitourinary: Yes: Brenner Present, Incontinence Musculoskeletal: Yes: Muscle Weakness Edema: Yes Neurological: Yes: Unresponsive Labs: CBC, BMP 03/05/18 05:30 03/05/18 05:30 INR, PTT INR 1.28 (0.83-1.09) H 02/22/18 05:30 Fibrinogen 290.0 mg/dL (238-498) 02/18/18 06:00 Problem List - Problems (1) MELITA (acute kidney injury) Code(s): N17.9 - ACUTE KIDNEY FAILURE, UNSPECIFIED (2) Atrial fibrillation with RVR Code(s): I48.91 - UNSPECIFIED ATRIAL FIBRILLATION (3) Hyperlipidemia Code(s): E78.5 - HYPERLIPIDEMIA, UNSPECIFIED Qualifiers: Hyperlipidemia type: pure hypercholesterolemia Qualified Code(s): E78.00 - Pure hypercholesterolemia, unspecified; E78.0 - Pure hypercholesterolemia (4) Hypothermia Code(s): T68.XXXA - HYPOTHERMIA, INITIAL ENCOUNTER Qualifiers: Encounter type: initial encounter Qualified Code(s): T68.XXXA - Hypothermia , initial encounter (5) Qvjhe-nu-[id number] kidney injury Code(s): N17.9 - ACUTE KIDNEY FAILURE, UNSPECIFIED; N18.9 - CHRONIC KIDNEY DISEASE, UNSPECIFIED Qualifiers: Acute renal failure type: unspecified Chronic kidney disease stage: unspecified stage Qualified Code(s): N17.9 - Acute kidney failure, unspecified ; N18.9 - Chronic kidney disease, unspecified (6) Generalized weakness Code(s): R53.1 - WEAKNESS (7) History of ETOH abuse Code(s): Z87.898 - PERSONAL HISTORY OF OTHER SPECIFIED CONDITIONS (8) Hypercalcemia Code(s): E83.52 - HYPERCALCEMIA (9) Hypertrophic cardiomyopathy Code(s): I42.2 - OTHER HYPERTROPHIC CARDIOMYOPATHY (10) Toxic metabolic encephalopathy Code(s): G92 - TOXIC ENCEPHALOPATHY (11) Sepsis Code(s): A41.9 - SEPSIS, UNSPECIFIED ORGANISM (12) Respiratory failure Code(s): J96.90 - RESPIRATORY FAILURE, UNSP, UNSP W HYPOXIA OR HYPERCAPNIA Assessment/Plan NOW VENT DEPENDENT INTUBATED FOR MANY DAYS WILL NEED TRACHEOSTOMY. AWAITING FAMILY CONSENT IV ABX CONTINUE PER ID. 02 SUPPORT 40% O2 UNABLE TO WEAN OFF VENT. CARDIO F/U ON HEPARIN IV FOR AC. MONITOR LABS, FREQUENT TURNING AND OFF LOADING TO PREVENT SKIN BREAK DOWN NGT FEEDS, AMINO ACIDS FOR PROTEIN AND PREVENT SKIN ULCERS. ADVANCED DIRECTIVES UNCLEAR, AWAIT FAMILY DECISION AT THIS PROGNOSIS IS POOR FOR A FULL MEANINGFUL RECOVERY LABS DAILY MONITOR ELECTROLYTES. NEURO EVAL MVI/THIAMINE CONTINUE AGREE WITH PULMONARY TO DECREASE SEDATION TO EVALUATE MENTAL STATUS
--- NOTE | 2018-03-05 10:34 | PN ---
Progress Note (short form) - Note Progress Note: Renal follow up for Hypercalcemia/MELITA Pt seen and examined in the ICU unresponsive on vent FiO2 stable Making urine via francois Vital Signs Temperature 99 F 03/05/18 06:00 Pulse Rate 117 H 03/05/18 08:13 Respiratory Rate 22 H 03/05/18 08:10 Blood Pressure 131/74 03/05/18 08:00 O2 Sat by Pulse Oximetry (%) 99 03/05/18 08:13 Intake & Output 03/02/18 03/03/18 03/04/18 03/05/18 23:59 23:59 23:59 23:59 Intake Total 3267 4075 3310 1404 Output Total 1350 1400 2300 600 Balance 1917 2675 1010 804 Weight 89.3 kg 89.3 kg NAD on vent via ET tube no LE edema + edema in upper extremities CBC, BMP 03/05/18 05:30 03/05/18 05:30 Current Medications Acetaminophen (Tylenol -) 650 mg PO Q6H PRN PRN Reason: PAIN LEVEL 1 - 3 Last Admin: 03/02/18 03:13 Dose: 650 mg Allopurinol (Zyloprim -) 100 mg PO BID [facility] Last Admin: 03/05/18 09:01 Dose: 100 mg Chlorhexidine Gluconate (Peridex -) 15 ml MM BID [facility] Last Admin: 03/05/18 09:02 Dose: 15 ml Cholecalciferol (Vitamin D3 -) 1,000 unit PO DAILY [facility] Last Admin: 03/05/18 09:00 Dose: 1,000 unit Diphenhydramine HCl (Benadryl Injection -) 25 mg IVPB ONCE PRN PRN Reason: DURING PLASMAPHERESIS Fentanyl (Sublimaze Injection -) 50 mcg IVPUSH Q1H PRN PRN Reason: PAIN Stop: 03/05/18 20:44 Heparin Sodium (Porcine) (Heparin -) 1,000 unit IVPUSH PRN PRN PRN Reason: Heparin Last Admin: 03/01/18 08:03 Dose: 1,000 unit Heparin Sodium (Porcine) (Heparin -) 5,000 unit IVPUSH PRN PRN PRN Reason: Heparin Metronidazole (Flagyl 500mg Premixed Ivpb -) 500 mg in 100 mls @ 100 mls/hr IVPB BID [facility] Last Admin: 03/05/18 09:01 Dose: 100 mls/hr Levofloxacin (Levaquin 250 Mg Premixed Ivpb -) 250 mg in 50 mls @ 50 mls/hr IVPB DAILY [facility]; Protocol Last Admin: 03/05/18 09:01 Dose: 50 mls/hr HEPARIN SOD,PORK IN 0.45% NACL (Heparin-1/2ns 25,000 Units/500) 25,000 units in 500 mls @ 20 mls/hr IVPB TITR [facility]; Protocol Last Titration: 03/05/18 07:07 Dose: 850 units/hr, 17 mls/hr Fentanyl 500 mcg/ Dextrose 100 mls @ 5 mls/hr IVPB TITR [facility]; Protocol Last Admin: 03/04/18 19:00 Dose: 25 mcg/hr, 5 mls/hr Lactobacillus Acidophilus (Bacid -) 1 tab PO DAILY [facility] Last Admin: 03/05/18 09:00 Dose: 1 tab Metoprolol Tartrate (Lopressor Injection -) 5 mg IVPUSH Q8H PRN PRN Reason: TACHYCARDIA Last Admin: 03/03/18 18:44 Dose: 5 mg Metoprolol Tartrate (Lopressor -) 75 mg PO BID [facility] Last Admin: 03/05/18 09:01 Dose: 75 mg Pantoprazole Sodium (Protonix Iv) 40 mg IVPUSH DAILY [facility] Last Admin: 03/05/18 09:01 Dose: 40 mg Rifaximin (Xifaxan -) 550 mg PO BID [facility] Last Admin: 03/05/18 09:00 Dose: 550 mg Thiamine HCl (Vitamin B1 -) 100 mg PO DAILY [facility] Last Admin: 03/05/18 09:01 Dose: 100 mg 77 year old gentleman with hx of CKD, Afib on A/C, CAD, CKD, Hypertension, Hyperlipidemia, PVD who presented with AMS/Confusion and found to have MELITA. #MELITA ATN vs. 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 tubular injury, US showed no stones or obstruction, UA w/o protein but UPCR ~0.5 indicating non- albumin proteinuria) #AMS #Newly diagnosed multiple myloma #Anemia #Hypercalcemia of Malignancy (PTH is low) #Hyperdense lesion on US of the kidney #Normal anion gap metabolic acidosis #Hyperkalemia (now resolved) Renal function stable at this time and pt is non-oliguric continue supportive care, tube feeds with free water Trend renal function and electrolytes supportive care prognosis is poor Goals of care discussions with family on-going by ICU team Mack Miller DO
[2018-03-05 12:05] LABS: ANISOCYTOSIS 0; MACROCYTOSIS 0; PLATELET ESTIMATE DECREASED; ROULEAU 2+
--- NOTE | 2018-03-05 12:20 | PN ---
Teaching Attending Note Name of Resident: Bola Griffith ATTENDING PHYSICIAN STATEMENT I saw and evaluated the patient. I reviewed the resident's note and discussed the case with the resident. I agree with the resident's findings and plan as documented. SUBJECTIVE: Pt seen and examined in the ICU. Remains intubated, poorly responsive but now on fentanyl gtt. OBJECTIVE: Vital Signs Period Temp Pulse Resp BP Sys/Ariza Pulse Ox Last 24 Hr 97.5 F-99.8 F 99-123 18-22 118-152/50-100 99-99 Intake & Output 03/02/18 03/03/18 03/04/18 03/05/18 23:59 23:59 23:59 23:59 Intake Total 3267 4075 3310 1404 Output Total 1350 1400 2300 600 Balance 1917 2675 1010 804 Weight 89.3 kg 89.3 kg Gen: intubated, sedated, tachypneic Heart: irregular Lung: scattered rhonchi Abd: soft, nontender Ext:+ UE edema CBC, BMP 03/05/18 05:30 03/05/18 05:30 Active Medications Acetaminophen (Tylenol -) 650 mg PO Q6H PRN PRN Reason: PAIN LEVEL 1 - 3 Last Admin: 03/02/18 03:13 Dose: 650 mg Allopurinol (Zyloprim -) 100 mg PO BID [facility] Last Admin: 03/05/18 09:01 Dose: 100 mg Chlorhexidine Gluconate (Peridex -) 15 ml MM BID [facility] Last Admin: 03/05/18 09:02 Dose: 15 ml Cholecalciferol (Vitamin D3 -) 1,000 unit PO DAILY [facility] Last Admin: 03/05/18 09:00 Dose: 1,000 unit Diphenhydramine HCl (Benadryl Injection -) 25 mg IVPB ONCE PRN PRN Reason: DURING PLASMAPHERESIS Fentanyl (Sublimaze Injection -) 50 mcg IVPUSH Q1H PRN PRN Reason: PAIN Stop: 03/05/18 20:44 Heparin Sodium (Porcine) (Heparin -) 1,000 unit IVPUSH PRN PRN PRN Reason: Heparin Last Admin: 03/01/18 08:03 Dose: 1,000 unit Heparin Sodium (Porcine) (Heparin -) 5,000 unit IVPUSH PRN PRN PRN Reason: Heparin Metronidazole (Flagyl 500mg Premixed Ivpb -) 500 mg in 100 mls @ 100 mls/hr IVPB BID [facility] Last Admin: 03/05/18 09:01 Dose: 100 mls/hr Levofloxacin (Levaquin 250 Mg Premixed Ivpb -) 250 mg in 50 mls @ 50 mls/hr IVPB DAILY [facility]; Protocol Last Admin: 03/05/18 09:01 Dose: 50 mls/hr HEPARIN SOD,PORK IN 0.45% NACL (Heparin-1/2ns 25,000 Units/500) 25,000 units in 500 mls @ 20 mls/hr IVPB TITR [facility]; Protocol Last Titration: 03/05/18 07:07 Dose: 850 units/hr, 17 mls/hr Fentanyl 500 mcg/ Dextrose 100 mls @ 5 mls/hr IVPB TITR [facility]; Protocol Last Admin: 03/04/18 19:00 Dose: 25 mcg/hr, 5 mls/hr Lactobacillus Acidophilus (Bacid -) 1 tab PO DAILY [facility] Last Admin: 03/05/18 09:00 Dose: 1 tab Metoprolol Tartrate (Lopressor Injection -) 5 mg IVPUSH Q8H PRN PRN Reason: TACHYCARDIA Last Admin: 03/03/18 18:44 Dose: 5 mg Metoprolol Tartrate (Lopressor -) 75 mg PO BID [facility] Last Admin: 03/05/18 09:01 Dose: 75 mg Pantoprazole Sodium (Protonix Iv) 40 mg IVPUSH DAILY [facility] Last Admin: 03/05/18 09:01 Dose: 40 mg Rifaximin (Xifaxan -) 550 mg PO BID [facility] Last Admin: 03/05/18 09:00 Dose: 550 mg Thiamine HCl (Vitamin B1 -) 100 mg PO DAILY [facility] Last Admin: 03/05/18 09:01 Dose: 100 mg ASSESSMENT AND PLAN: Acute Hypoxic Respiratory Failure Altered Mental Status Metabolic Encephalopathy Pneumonia Acalculous Cholecystitis Multiple Myeloma Acute on Chronic Renal Failure Metabolic Acidosis LV Diastolic Dysfunction Atrial Fibrillation CAD +Troponins likely Demand Ischemia PAD Hyperlipidemia HTN - continue antibiotics - monitor urine output, creatinine - rate control - minimize sedation to assess mental status - spontaneous breathing trials as tolerated but would not extubate unless mental status improved - DVT/GI prophylaxis - continue discussions regarding goals of care, if unable to reach family will need tracheostomy as he has been intubated for 3 weeks now - palliative care input appreciated - continue ICU monitoring - poor overall prognosis for meaningful recovery critical care time spent in reviewing chart, evaluating patient and formulating plan 35 min
--- NOTE | 2018-03-05 14:34 | PN ---
Progress Note, Physician History of Present Illness: Poorly responsive on vent, persistent afib on lopressor and heparin gtt. - Current Medication List Current Medications: Active Medications Acetaminophen (Tylenol -) 650 mg PO Q6H PRN PRN Reason: PAIN LEVEL 1 - 3 Last Admin: 03/02/18 03:13 Dose: 650 mg Allopurinol (Zyloprim -) 100 mg PO BID [facility] Last Admin: 03/05/18 09:01 Dose: 100 mg Chlorhexidine Gluconate (Peridex -) 15 ml MM BID [facility] Last Admin: 03/05/18 09:02 Dose: 15 ml Cholecalciferol (Vitamin D3 -) 1,000 unit PO DAILY [facility] Last Admin: 03/05/18 09:00 Dose: 1,000 unit Diphenhydramine HCl (Benadryl Injection -) 25 mg IVPB ONCE PRN PRN Reason: DURING PLASMAPHERESIS Fentanyl (Sublimaze Injection -) 50 mcg IVPUSH Q1H PRN PRN Reason: PAIN Stop: 03/05/18 20:44 Heparin Sodium (Porcine) (Heparin -) 1,000 unit IVPUSH PRN PRN PRN Reason: Heparin Last Admin: 03/01/18 08:03 Dose: 1,000 unit Heparin Sodium (Porcine) (Heparin -) 5,000 unit IVPUSH PRN PRN PRN Reason: Heparin Metronidazole (Flagyl 500mg Premixed Ivpb -) 500 mg in 100 mls @ 100 mls/hr IVPB BID [facility] Last Admin: 03/05/18 09:01 Dose: 100 mls/hr Levofloxacin (Levaquin 250 Mg Premixed Ivpb -) 250 mg in 50 mls @ 50 mls/hr IVPB DAILY [facility]; Protocol Last Admin: 03/05/18 09:01 Dose: 50 mls/hr HEPARIN SOD,PORK IN 0.45% NACL (Heparin-1/2ns 25,000 Units/500) 25,000 units in 500 mls @ 20 mls/hr IVPB TITR [facility]; Protocol Last Titration: 03/05/18 07:07 Dose: 850 units/hr, 17 mls/hr Fentanyl 500 mcg/ Dextrose 100 mls @ 5 mls/hr IVPB TITR [facility]; Protocol Last Admin: 03/04/18 19:00 Dose: 25 mcg/hr, 5 mls/hr Lactobacillus Acidophilus (Bacid -) 1 tab PO DAILY [facility] Last Admin: 03/05/18 09:00 Dose: 1 tab Metoprolol Tartrate (Lopressor Injection -) 5 mg IVPUSH Q8H PRN PRN Reason: TACHYCARDIA Last Admin: 03/03/18 18:44 Dose: 5 mg Metoprolol Tartrate (Lopressor -) 75 mg PO BID [facility] Last Admin: 03/05/18 09:01 Dose: 75 mg Pantoprazole Sodium (Protonix Iv) 40 mg IVPUSH DAILY [facility] Last Admin: 03/05/18 09:01 Dose: 40 mg Rifaximin (Xifaxan -) 550 mg PO BID [facility] Last Admin: 03/05/18 09:00 Dose: 550 mg Thiamine HCl (Vitamin B1 -) 100 mg PO DAILY [facility] Last Admin: 03/05/18 09:01 Dose: 100 mg - Objective Vital Signs: Vital Signs Temperature 99 F 03/05/18 06:00 Pulse Rate 86 03/05/18 12:00 Respiratory Rate 17 03/05/18 13:56 Blood Pressure 114/78 03/05/18 12:00 O2 Sat by Pulse Oximetry (%) 99 03/05/18 09:00 Constitutional: Yes: No Distress, Calm Neck: Yes: Supple Cardiovascular: Yes: Pulse Irregular Respiratory: Yes: Intubated, Mechanically Ventilated, Rhonchi Gastrointestinal: Yes: Normal Bowel Sounds, Soft Edema: No Labs: CBC, BMP 03/05/18 05:30 03/05/18 05:30 INR, PTT INR 1.28 (0.83-1.09) H 02/22/18 05:30 Fibrinogen 290.0 mg/dL (238-498) 02/18/18 06:00 - ....Imaging Chest X-ray: Report Reviewed (Stable w/o changes) Problem List - Problems (1) Atrial fibrillation with RVR Code(s): I48.91 - UNSPECIFIED ATRIAL FIBRILLATION (2) [id number] kidney injury Code(s): N17.9 - ACUTE KIDNEY FAILURE, UNSPECIFIED; N18.9 - CHRONIC KIDNEY DISEASE, UNSPECIFIED Qualifiers: Acute renal failure type: unspecified Chronic kidney disease stage: unspecified stage Qualified Code(s): N17.9 - Acute kidney failure, unspecified ; N18.9 - Chronic kidney disease, unspecified (3) Demand ischemia Code(s): I24.8 - OTHER FORMS OF ACUTE ISCHEMIC HEART DISEASE (4) Hypercalcemia Code(s): E83.52 - HYPERCALCEMIA (5) Nonadherence to medication Code(s): Z91.14 - PATIENT'S OTHER NONCOMPLIANCE WITH MEDICATION REGIMEN (6) Paraproteinemia Code(s): D89.2 - HYPERGAMMAGLOBULINEMIA, UNSPECIFIED (7) Anticoagulant long-term use Code(s): Z79.01 - NURSING HOME (CURRENT) USE OF ANTICOAGULANTS (8) Chronic thromboembolic disease Code(s): I74.9 - EMBOLISM AND THROMBOSIS OF UNSPECIFIED ARTERY (9) Coronary artery disease Code(s): I25.10 - ATHSCL HEART DISEASE OF [place] CORONARY ARTERY W/O ANG PCTRS Qualifiers: Coronary Disease-Associated Artery/Lesion type: [place] artery [place] vs. transplanted heart: [place] heart Associated angina: without angina Qualified Code(s): I25.10 - Atherosclerotic heart disease of [place] coronary artery without angina pectoris (10) Diastolic dysfunction without heart failure Code(s): I51.9 - HEART DISEASE, UNSPECIFIED (11) HTN (hypertension) Code(s): I10 - ESSENTIAL (PRIMARY) HYPERTENSION Qualifiers: Hypertension type: essential hypertension Qualified Code(s): I10 - Essential (primary) hypertension (12) Hypertrophic cardiomyopathy Code(s): I42.2 - OTHER HYPERTROPHIC CARDIOMYOPATHY (13) Hyperlipidemia Code(s): E78.5 - HYPERLIPIDEMIA, UNSPECIFIED Qualifiers: Hyperlipidemia type: pure hypercholesterolemia Qualified Code(s): E78.00 - Pure hypercholesterolemia, unspecified; E78.0 - Pure hypercholesterolemia (14) Multiple myeloma Code(s): C90.00 - MULTIPLE MYELOMA NOT HAVING ACHIEVED REMISSION Qualifiers: Multiple myeloma remission status: not in remission Qualified Code(s): C90.00 - Multiple myeloma not having achieved remission (15) Acalculous cholecystitis Code(s): K81.9 - CHOLECYSTITIS, UNSPECIFIED Assessment/Plan R&LHc at [facility] 04/20/2016 showing nonobstructive CAD, severe LV apical hypertrophic cardiomyopathy, mildly elevated right sided pressures, Mynx deployed right [employer] access site. 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 Echocardiogram: 10/18/2017 Mod cLVH, severe PURVI, mod TR RVSP 50-60 mmHg, mod- severe MR Echocardiogram: 01/23/2018 Normal LV size with hyperdynamic LVEF 75%, mild BSH, normal RV size and fxn, severe LAE, mod-severe MR, mod TR 1. Acute hypoxic respiratory failure, suspected aspiration pneumonia with sepsis syndrome, remains intubated 2. Toxic metabolic encephelopathy, rule out CVA, no change in status 3. Acute on CKD, suspected myeloma kidney 4. Paraproteinemia confirmed multiple myeloma 5. History of bilateral SFA occlusion post thrombectomy, most likely embolic disease related to persistent atrial fibrillation with [id number] score of 6 6. CAD with evidence of demand ischemic injury, non obstructive CAD on R&c coronary angiogrpahy angina pectoris 7. 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 Persistent atrial fibrillation [id number] score of 6 currently on Heparin therapy 9. HTN 10. Anemia/thrombocytopenia 11. Acalculous Cholecystitis 12. Ischemic hepatitis 13. Hypernatremia, resolved PLAN: 1. Continue Heparin with caution, transfuse to maintain Hg equal or > 8.0, as outlined in prior notes ideally A/C therapy to be continued indefinitely unless it is absolutely contraindicated considering his [id number] score of 6 2. Continue Lopressor 75 bid, hemodynamics permitting 3. Continue antibiotics as per the primary team 4. Ventilator management as per the ICU team 5. As outlined in prior notes overall poor prognosis (no improvement), family to decide regarding compassionate extubation versus tracheostomy
--- NOTE | 2018-03-05 15:13 | PN ---
Progress Note, Physician History of Present Illness: Unresponsive on ventilator Afebrile C difficile negative - Current Medication List Current Medications: Active Medications Acetaminophen (Tylenol -) 650 mg PO Q6H PRN PRN Reason: PAIN LEVEL 1 - 3 Last Admin: 03/02/18 03:13 Dose: 650 mg Allopurinol (Zyloprim -) 100 mg PO BID [facility] Last Admin: 03/05/18 09:01 Dose: 100 mg Chlorhexidine Gluconate (Peridex -) 15 ml MM BID [facility] Last Admin: 03/05/18 09:02 Dose: 15 ml Cholecalciferol (Vitamin D3 -) 1,000 unit PO DAILY [facility] Last Admin: 03/05/18 09:00 Dose: 1,000 unit Diphenhydramine HCl (Benadryl Injection -) 25 mg IVPB ONCE PRN PRN Reason: DURING PLASMAPHERESIS Fentanyl (Sublimaze Injection -) 50 mcg IVPUSH Q1H PRN PRN Reason: PAIN Stop: 03/05/18 20:44 Heparin Sodium (Porcine) (Heparin -) 1,000 unit IVPUSH PRN PRN PRN Reason: Heparin Last Admin: 03/01/18 08:03 Dose: 1,000 unit Heparin Sodium (Porcine) (Heparin -) 5,000 unit IVPUSH PRN PRN PRN Reason: Heparin Metronidazole (Flagyl 500mg Premixed Ivpb -) 500 mg in 100 mls @ 100 mls/hr IVPB BID [facility] Last Admin: 03/05/18 09:01 Dose: 100 mls/hr Levofloxacin (Levaquin 250 Mg Premixed Ivpb -) 250 mg in 50 mls @ 50 mls/hr IVPB DAILY [facility]; Protocol Last Admin: 03/05/18 09:01 Dose: 50 mls/hr HEPARIN SOD,PORK IN 0.45% NACL (Heparin-1/2ns 25,000 Units/500) 25,000 units in 500 mls @ 20 mls/hr IVPB TITR [facility]; Protocol Last Titration: 03/05/18 07:07 Dose: 850 units/hr, 17 mls/hr Fentanyl 500 mcg/ Dextrose 100 mls @ 5 mls/hr IVPB TITR [facility]; Protocol Last Admin: 03/04/18 19:00 Dose: 25 mcg/hr, 5 mls/hr Lactobacillus Acidophilus (Bacid -) 1 tab PO DAILY [facility] Last Admin: 03/05/18 09:00 Dose: 1 tab Metoprolol Tartrate (Lopressor Injection -) 5 mg IVPUSH Q8H PRN PRN Reason: TACHYCARDIA Last Admin: 03/03/18 18:44 Dose: 5 mg Metoprolol Tartrate (Lopressor -) 75 mg PO BID [facility] Last Admin: 03/05/18 09:01 Dose: 75 mg Pantoprazole Sodium (Protonix Iv) 40 mg IVPUSH DAILY [facility] Last Admin: 03/05/18 09:01 Dose: 40 mg Rifaximin (Xifaxan -) 550 mg PO BID [facility] Last Admin: 03/05/18 09:00 Dose: 550 mg Thiamine HCl (Vitamin B1 -) 100 mg PO DAILY [facility] Last Admin: 03/05/18 09:01 Dose: 100 mg - Objective Vital Signs: Vital Signs Temperature 99 F 03/05/18 06:00 Pulse Rate 86 03/05/18 12:00 Respiratory Rate 17 03/05/18 13:56 Blood Pressure 114/78 03/05/18 12:00 O2 Sat by Pulse Oximetry (%) 99 03/05/18 09:00 Constitutional: Yes: No Distress Cardiovascular: Yes: Regular Rate and Rhythm, S1, S2 Respiratory: Yes: Mechanically Ventilated Gastrointestinal: Yes: Normal Bowel Sounds, Soft. No: Tenderness Edema: Yes Labs: CBC, BMP 03/05/18 05:30 03/05/18 05:30 INR, PTT INR 1.28 (0.83-1.09) H 02/22/18 05:30 Fibrinogen 290.0 mg/dL (238-498) 02/18/18 06:00 Assessment/Plan Respiratory failure RLL pneumonia Acalculus Cholecystitis Toxic metabolic encephalopathy Renal failure Myeloma Hyperviscosity syndrome Diarrhea Continue levaquin / flagyl Ventilatory support Prognosis poor
[2018-03-05] MEDS ORDERED: fentaNYL CITRATE 250 MCG/5 ML VIAL ONE (19:18)
[2018-03-05] MEDS: HEPARIN SOD,PORK IN 0.45% NACL 25,000 UNITS/500 ML INFUS.BAG IVPB SCH (22:03)
[2018-03-05] MEDS: FENTANYL INJECTION 500 MCG in DEXTROSE 5%-WATER - 90 ML IVPB SCH (22:04)
[2018-03-06] MEDS ORDERED: fentaNYL CITRATE 250 MCG/5 ML VIAL ONE ×2 (00:34→17:45)
[2018-03-06 06:24] LABS: ARTERIAL BLD GAS O2 SATURATION 96.3 % (90-98.9); ARTERIAL BLOOD GAS PCO2 46.8 mmHg (35-45); ARTERIAL BLOOD GAS PO2 90.1 mmHg (70-100); ARTERIAL BLOOD GAS pH 7.27 (7.35-7.45)
[2018-03-06 06:30] LABS: ALLENS TEST POSITIVE
[2018-03-06 06:32] LABS: ALBUMIN 1.1 g/dl (3.4-5.0); ALK PHOS 109 U/L (45-117); ANION GAP 2 MMOL/L (8-16); BILIRUBIN,TOTAL 0.3 mg/dL (0.2-1); BLOOD UREA NITROGEN 58 mg/dL (7-18); CHLORIDE 115 mmol/L (98-107); CO2 23 mmol/L (21-32); CREATININE 1.8 mg/dL (0.55-1.3); GLUCOSE,RANDOM 106 mg/dL (74-106); MAGNESIUM 1.7 mg/dL (1.8-2.4); PHOSPHOROUS 4.4 mg/dL (2.5-4.9); SGOT/AST 40 U/L (15-37); SGPT/ALT 40 U/L (13-61); SODIUM 140 mmol/L (136-145); TOT PROT 9.2 g/dl (6.4-8.2)
[2018-03-06 06:42] LABS: BASO % 0.8 % (0-2.0); EOS % 3.6 % (0-4.5); HEMATOCRIT 24.4 % (35.4-49); LYMPH % 18.9 % (8-40); MCH 30.2 pg (25.7-33.7); MCHC 32.7 g/dl (32.0-35.9); MEAN CELL VOLUME 92.4 fl (80-96); MONO % 5.1 % (3.8-10.2); NEUT % 71.6 % (42.8-82.8); PLATELET COUNT 95 K/MM3 (134-434); RBC 2.64 M/mm3 (4.00-5.60); RDW 16.4 % (11.9-15.9); WHITE BLOOD COUNT 4.2 K/mm3 (4.0-10.0)
[2018-03-06] MEDS: HEPARIN SOD,PORK IN 0.45% NACL 25,000 UNITS/500 ML INFUS.BAG IVPB SCH ×2 (06:42→18:42)
--- NOTE | 2018-03-06 07:06 | PN ---
Progress Note (short form) - Note Progress Note: Chief Complaint: Events noted, notes reviewed, remains intubated with overall no change in neurological status, remains in atrial fibrillation on A/C with Heparin History of Present Illness: Seen and examined in the ICU. Events noted, notes reviewed, remains intubated with overall no change in neurological status, remains in atrial fibrillation on A/C with Heparin [facility] coronary angiography performed 04/20/2016 revealed non-obstructive CAD, severe LV apical hypertrophic cardiomyopathy, mildly elevated right sided pressures/study is consistent with apical hypertrophy (spade-like) variant of hypertrophic cardiomyopathy Echocardiography dated 10/18/2017 Mod cLVH, severe PURVI, moderate TR RVSP 50-60 mmHg, moderate-severe MR Echocardiography dated 01/23/2018 Normal LV size with hyperdynamic LVEF 75%, mild BSH, normal RV size and function, severe LAE, moderate-severe MR, mod TR - Current Medication List Current Medications Acetaminophen (Tylenol -) 650 mg PO Q6H PRN PRN Reason: PAIN LEVEL 1 - 3 Last Admin: 03/02/18 03:13 Dose: 650 mg Allopurinol (Zyloprim -) 100 mg PO BID [facility] Last Admin: 03/05/18 22:07 Dose: 100 mg Chlorhexidine Gluconate (Peridex -) 15 ml MM BID [facility] Last Admin: 03/05/18 22:07 Dose: 15 ml Cholecalciferol (Vitamin D3 -) 1,000 unit PO DAILY [facility] Last Admin: 03/05/18 09:00 Dose: 1,000 unit Diphenhydramine HCl (Benadryl Injection -) 25 mg IVPB ONCE PRN PRN Reason: DURING PLASMAPHERESIS Heparin Sodium (Porcine) (Heparin -) 1,000 unit IVPUSH PRN PRN PRN Reason: Heparin Last Admin: 03/01/18 08:03 Dose: 1,000 unit Heparin Sodium (Porcine) (Heparin -) 5,000 unit IVPUSH PRN PRN PRN Reason: Heparin Metronidazole (Flagyl 500mg Premixed Ivpb -) 500 mg in 100 mls @ 100 mls/hr IVPB BID [facility] Last Admin: 03/05/18 22:07 Dose: 100 mls/hr Levofloxacin (Levaquin 250 Mg Premixed Ivpb -) 250 mg in 50 mls @ 50 mls/hr IVPB DAILY [facility]; Protocol Last Admin: 03/05/18 09:01 Dose: 50 mls/hr HEPARIN SOD,PORK IN 0.45% NACL (Heparin-1/2ns 25,000 Units/500) 25,000 units in 500 mls @ 20 mls/hr IVPB TITR [facility]; Protocol Last Admin: 03/06/18 06:42 Dose: 850 units/hr, 17 mls/hr Fentanyl 500 mcg/ Dextrose 100 mls @ 5 mls/hr IVPB TITR [facility]; Protocol Last Titration: 03/06/18 06:44 Dose: 50 mcg/hr, 10 mls/hr Lactobacillus Acidophilus (Bacid -) 1 tab PO DAILY [facility] Last Admin: 03/05/18 09:00 Dose: 1 tab Metoprolol Tartrate (Lopressor Injection -) 5 mg IVPUSH Q8H PRN PRN Reason: TACHYCARDIA Last Admin: 03/03/18 18:44 Dose: 5 mg Metoprolol Tartrate (Lopressor -) 75 mg PO BID [facility] Last Admin: 03/05/18 22:07 Dose: 75 mg Pantoprazole Sodium (Protonix Iv) 40 mg IVPUSH DAILY [facility] Last Admin: 03/05/18 09:01 Dose: 40 mg Rifaximin (Xifaxan -) 550 mg PO BID [facility] Last Admin: 03/05/18 22:07 Dose: 550 mg Thiamine HCl (Vitamin B1 -) 100 mg PO DAILY [facility] Last Admin: 03/05/18 09:01 Dose: 100 mg Review of Systems Unable to obtain - Objective Vital Signs: Last Vital Signs Temp Pulse Resp BP Pulse Ox 99.9 F H 84 14 96/73 99 03/06/18 06:00 03/06/18 06:00 03/06/18 06:42 03/06/18 06:00 03/05/18 20:48 Intake & Output 03/03/18 03/04/18 03/05/18 03/06/18 23:59 23:59 23:59 23:59 Intake Total 4075 3310 3308 1564 Output Total 1400 2300 800 800 Balance 2675 1010 2508 764 Weight 196 lb 13.965 oz 196 lb 13.965 oz 198 lb 8 oz Neck: Supple Negative JVD No Bruit Cardiovascular: S1 S2 Irregularly Irregular Grade 2/6 Systolic Murmur Apical Chest: Scattered Rhonchi Bilaterally Gastrointestinal: Soft Benign Normal Bowel Sounds Ext: No Edema Labs: ABG Results ABG pH 7.27 (7.35-7.45) L 03/06/18 06:00 ABG pCO2 at Pt Temp 46.8 mmHg (35-45) H D 03/06/18 06:00 ABG pO2 at Pt Temp 90.1 mmHg (70-100) D 03/06/18 06:00 ABG HCO3 20.9 meq/L (22-26) L 03/06/18 06:00 ABG O2 Sat (Measured) 96.3 % (90-98.9) 03/06/18 06:00 ABG O2 Content 10.4 % vol (15-22) L 03/06/18 06:00 ABG Base Excess -5.0 meq/l (-2-2) L 03/06/18 06:00 CBC, BMP 03/06/18 05:30 03/06/18 05:30 Assessment/Plan ASSESSMENT: 1. Acute hypoxic respiratory failure, suspected aspiration pneumonia with sepsis syndrome, remains intubated/acidosis this AM/combined 2. Toxic metabolic encephelopathy, rule out CVA, no change in status 3. Acute on CKD, suspected myeloma kidney 4. Paraproteinemia confirmed multiple myeloma 5. History of bilateral SFA occlusion post thrombectomy, most likely embolic disease related to persistent atrial fibrillation with [id number] score of 6 6. CAD with evidence of demand ischemic injury, non obstructive CAD on [facility] coronary angiogrpahy angina pectoris 7. 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 Persistent atrial fibrillation [id number] score of 6 currently on Heparin therapy 9. HTN 10. Anemia/thrombocytopenia 11. Acalculous Cholecystitis 12. Ischemic hepatitis 13. Resolved Hypernatremia PLAN: 1. Evaluation and correction of acidosis 2. Continue Heparin with caution, transfuse to maintain Hg equal or > 8.0, as outlined in prior notes ideally A/C therapy to be continued indefinitely unless it is absolutely contraindicated considering his [id number] score of 6 3. Continue Lopressor, hemodynamics permitting 4. Antibiotics as per the primary team 5. Ventilator management as per the ICU team 6. As outlined in prior notes overall poor prognosis (no improvement), family to decide regarding compassionate extubation versus tracheostomy, consider ethics consult Mabel Rolle MD
[2018-03-06] MEDS ORDERED: MAGNESIUM OXIDE 400 MG TABLET (FP) PO ONE (08:00)
--- NOTE | 2018-03-06 08:52 | PN ---
Progress Note, Physician - Current Medication List Current Medications: Active Medications Acetaminophen (Tylenol -) 650 mg PO Q6H PRN PRN Reason: PAIN LEVEL 1 - 3 Last Admin: 03/02/18 03:13 Dose: 650 mg Allopurinol (Zyloprim -) 100 mg PO BID [facility] Last Admin: 03/05/18 22:07 Dose: 100 mg Chlorhexidine Gluconate (Peridex -) 15 ml MM BID [facility] Last Admin: 03/05/18 22:07 Dose: 15 ml Cholecalciferol (Vitamin D3 -) 1,000 unit PO DAILY [facility] Last Admin: 03/05/18 09:00 Dose: 1,000 unit Diphenhydramine HCl (Benadryl Injection -) 25 mg IVPB ONCE PRN PRN Reason: DURING PLASMAPHERESIS Heparin Sodium (Porcine) (Heparin -) 1,000 unit IVPUSH PRN PRN PRN Reason: Heparin Last Admin: 03/01/18 08:03 Dose: 1,000 unit Heparin Sodium (Porcine) (Heparin -) 5,000 unit IVPUSH PRN PRN PRN Reason: Heparin Metronidazole (Flagyl 500mg Premixed Ivpb -) 500 mg in 100 mls @ 100 mls/hr IVPB BID [facility] Last Admin: 03/05/18 22:07 Dose: 100 mls/hr Levofloxacin (Levaquin 250 Mg Premixed Ivpb -) 250 mg in 50 mls @ 50 mls/hr IVPB DAILY [facility]; Protocol Last Admin: 03/05/18 09:01 Dose: 50 mls/hr HEPARIN SOD,PORK IN 0.45% NACL (Heparin-1/2ns 25,000 Units/500) 25,000 units in 500 mls @ 20 mls/hr IVPB TITR [facility]; Protocol Last Admin: 03/06/18 06:42 Dose: 850 units/hr, 17 mls/hr Fentanyl 500 mcg/ Dextrose 100 mls @ 5 mls/hr IVPB TITR [facility]; Protocol Last Titration: 03/06/18 06:44 Dose: 50 mcg/hr, 10 mls/hr Lactobacillus Acidophilus (Bacid -) 1 tab PO DAILY [facility] Last Admin: 03/05/18 09:00 Dose: 1 tab Metoprolol Tartrate (Lopressor Injection -) 5 mg IVPUSH Q8H PRN PRN Reason: TACHYCARDIA Last Admin: 03/03/18 18:44 Dose: 5 mg Metoprolol Tartrate (Lopressor -) 75 mg PO BID [facility] Last Admin: 03/05/18 22:07 Dose: 75 mg Pantoprazole Sodium (Protonix Iv) 40 mg IVPUSH DAILY [facility] Last Admin: 03/05/18 09:01 Dose: 40 mg Rifaximin (Xifaxan -) 550 mg PO BID [facility] Last Admin: 03/05/18 22:07 Dose: 550 mg Thiamine HCl (Vitamin B1 -) 100 mg PO DAILY [facility] Last Admin: 03/05/18 09:01 Dose: 100 mg - Objective Vital Signs: Vital Signs Temperature 99.9 F H 03/06/18 06:00 Pulse Rate 84 03/06/18 06:00 Respiratory Rate 14 03/06/18 06:42 Blood Pressure 96/73 03/06/18 06:00 O2 Sat by Pulse Oximetry (%) 99 03/05/18 20:48 Cardiovascular: Yes: S1, S2 Respiratory: Yes: Mechanically Ventilated Gastrointestinal: Yes: Normal Bowel Sounds, Soft Labs: CBC, BMP 03/06/18 05:30 03/06/18 05:30 INR, PTT INR 1.28 (0.83-1.09) H 02/22/18 05:30 Fibrinogen 290.0 mg/dL (238-498) 02/18/18 06:00 Problem List - Problems (1) Toxic metabolic encephalopathy Code(s): G92 - TOXIC ENCEPHALOPATHY (2) Cellulitis Code(s): L03.90 - CELLULITIS, UNSPECIFIED Qualifiers: Site of cellulitis: extremity Site of cellulitis of extremity: lower extremity Laterality: right Qualified Code(s): L03.115 - Cellulitis of right lower limb (3) Sepsis Code(s): A41.9 - SEPSIS, UNSPECIFIED ORGANISM (4) Artery occlusion Code(s): I70.90 - UNSPECIFIED ATHEROSCLEROSIS (5) Hypercalcemia Code(s): E83.52 - HYPERCALCEMIA (6) Paroxysmal atrial fibrillation Code(s): I48.0 - PAROXYSMAL ATRIAL FIBRILLATION (7) MELITA (acute kidney injury) Code(s): N17.9 - ACUTE KIDNEY FAILURE, UNSPECIFIED Assessment/Plan - Problems (1) Elevated LFTs Assessment/Plan: ultrasound of liver noted suggestive of acalculous cholecystitis, will get GI consult- noted lft trending down Code(s): R94.5 - ABNORMAL RESULTS OF LIVER FUNCTION STUDIES (2) MELITA (acute kidney injury) Assessment/Plan: MELITA vs ATN- iv calcium- repleted potassium now normal range- hyperkalemia improved ultrasound hyperdense lesion noted in left renal cortex Code(s): N17.9 - ACUTE KIDNEY FAILURE, UNSPECIFIED (3) Atrial fibrillation with RVR Assessment/Plan: heparin drip nurse monitoring rate control with metoprolol (4) Respiratory failure Assessment/Plan: intubated propofol/fentanyl aviating family decision regarding goals of care possible compassionate weaning vs tracheostomy Code(s): J96.90 - RESPIRATORY FAILURE, UNSP, UNSP W HYPOXIA OR HYPERCAPNIA (5) Toxic metabolic encephalopathy Assessment/Plan: Microbiology 02/21/18 11:20 Urine - Urine Brenner Urine Culture - Final NO GROWTH OBTAINED 02/13/18 14:30 Urine - Urine Brenner Legionella Antigen - Final 02/13/18 14:30 Urine - Urine Brenenr Streptococcus pneumoniae Antigen (M - Final 02/13/18 14:30 Sputum - Endotrachea Suction/Ventilator Gram Stain - Final 02/13/18 14:30 Sputum - Endotrachea Suction/Ventilator Sputum Culture - Final Stenotrophomon.(X.)Maltophilia 02/21/18 09:58 Blood - Peripheral Venous Blood Culture - Preliminary NO GROWTH OBTAINED AFTER 24 HOURS, INCUBATION TO CONTINUE FOR 4 DAYS. 02/21/18 09:50 Blood - Peripheral Venous Blood Culture - Preliminary NO GROWTH OBTAINED AFTER 24 HOURS, INCUBATION TO CONTINUE FOR 4 DAYS. 02/17/18 15:00 Blood - Peripheral Venous Blood Culture - Preliminary NO GROWTH OBTAINED AFTER 96 HOURS, INCUBATION TO CONTINUE FOR 1 DAYS. 02/17/18 14:00 Blood - Central Line Blood Culture - Preliminary NO GROWTH OBTAINED AFTER 96 HOURS, INCUBATION TO CONTINUE FOR 1 DAYS. RLL PNA levaquin/flagyl Code(s): G92 - TOXIC ENCEPHALOPATHY (6) Altered mental status Assessment/Plan: maybe secondary to toxic metabolic encephalopathy- neurology consult appreciated on lactulose TID still persistently elevated Nh3 level s/p dexamethasone - no improvement in mental status s/p plasmapheresis dvt ppx lovenox newly diagnosed Multiple Myeloma- anemia paraproteinemia, Code(s): R41.82 - ALTERED MENTAL STATUS, UNSPECIFIED
[2018-03-06] MEDS: LACTOBACILLUS ACIDOPHILUS 1 TABLET PO SCH (10:00)
[2018-03-06] MEDS: PANTOPRAZOLE SODIUM 40 MG VIAL IVPUSH SCH (10:00)
[2018-03-06] MEDS: RIFAXIMIN 550 MG TABLET (UD) PO SCH ×2 (10:00→21:25)
[2018-03-06] MEDS: METOPROLOL TARTRATE 50 MG TABLET (FP) PO SCH ×2 (10:00→21:26)
[2018-03-06] MEDS: THIAMINE HCL 100 MG TABLET (FP) PO SCH (10:00)
[2018-03-06] MEDS: CHOLECALCIFEROL (VITAMIN D3) 1,000 UNIT TABLET (FP) PO SCH (10:00)
[2018-03-06] MEDS: ALLOPURINOL 100 MG TABLET (FP) PO SCH ×2 (10:02→21:25)
[2018-03-06] MEDS: CHLORHEXIDINE GLUCONATE 0.12% 15ML CUP MM SCH ×2 (10:02→21:26)
--- NOTE | 2018-03-06 11:05 | PN ---
Progress Note (short form) - Note Progress Note: Renal follow up for Hypercalcemia/MELITA Pt seen and examined in the ICU on vent, noted to be hpotensive this am making urine via francois on vent, FiO2 is 40% pt sedated Vital Signs Temperature 99.9 F H 03/06/18 06:00 Pulse Rate 86 03/06/18 08:00 Respiratory Rate 14 03/06/18 09:00 Blood Pressure 95/68 03/06/18 08:00 O2 Sat by Pulse Oximetry (%) 99 03/05/18 20:48 Intake & Output 03/03/18 03/04/18 03/05/18 03/06/18 23:59 23:59 23:59 23:59 Intake Total 4075 3310 3308 1564 Output Total 1400 2300 800 800 Balance 2675 1010 2508 764 Weight 89.3 kg 89.3 kg 90.038 kg NAD ET tube in place RRR Dec BS, no rales soft NT/ND no Le edema CBC, BMP 03/06/18 05:30 03/06/18 05:30 Current Medications Acetaminophen (Tylenol -) 650 mg PO Q6H PRN PRN Reason: PAIN LEVEL 1 - 3 Last Admin: 03/02/18 03:13 Dose: 650 mg Allopurinol (Zyloprim -) 100 mg PO BID [facility] Last Admin: 03/06/18 10:02 Dose: 100 mg Chlorhexidine Gluconate (Peridex -) 15 ml MM BID [facility] Last Admin: 03/06/18 10:02 Dose: 15 ml Cholecalciferol (Vitamin D3 -) 1,000 unit PO DAILY [facility] Last Admin: 03/06/18 10:00 Dose: 1,000 unit Diphenhydramine HCl (Benadryl Injection -) 25 mg IVPB ONCE PRN PRN Reason: DURING PLASMAPHERESIS Heparin Sodium (Porcine) (Heparin -) 1,000 unit IVPUSH PRN PRN PRN Reason: Heparin Last Admin: 03/01/18 08:03 Dose: 1,000 unit Heparin Sodium (Porcine) (Heparin -) 5,000 unit IVPUSH PRN PRN PRN Reason: Heparin Metronidazole (Flagyl 500mg Premixed Ivpb -) 500 mg in 100 mls @ 100 mls/hr IVPB BID [facility] Last Admin: 03/06/18 09:59 Dose: 100 mls/hr Levofloxacin (Levaquin 250 Mg Premixed Ivpb -) 250 mg in 50 mls @ 50 mls/hr IVPB DAILY [facility]; Protocol Last Admin: 03/06/18 09:59 Dose: 50 mls/hr HEPARIN SOD,PORK IN 0.45% NACL (Heparin-1/2ns 25,000 Units/500) 25,000 units in 500 mls @ 20 mls/hr IVPB TITR [facility]; Protocol Last Titration: 03/06/18 10:05 Dose: 750 units/hr, 15 mls/hr Fentanyl 500 mcg/ Dextrose 100 mls @ 5 mls/hr IVPB TITR [facility]; Protocol Last Titration: 03/06/18 06:44 Dose: 50 mcg/hr, 10 mls/hr Lactobacillus Acidophilus (Bacid -) 1 tab PO DAILY [facility] Last Admin: 03/06/18 10:00 Dose: 1 tab Metoprolol Tartrate (Lopressor Injection -) 5 mg IVPUSH Q8H PRN PRN Reason: TACHYCARDIA Last Admin: 03/03/18 18:44 Dose: 5 mg Metoprolol Tartrate (Lopressor -) 75 mg PO BID [facility] Last Admin: 03/06/18 10:00 Dose: 75 mg Pantoprazole Sodium (Protonix Iv) 40 mg IVPUSH DAILY [facility] Last Admin: 03/06/18 10:00 Dose: 40 mg Rifaximin (Xifaxan -) 550 mg PO BID [facility] Last Admin: 03/06/18 10:00 Dose: 550 mg Thiamine HCl (Vitamin B1 -) 100 mg PO DAILY [facility] Last Admin: 03/06/18 10:00 Dose: 100 mg 77 year old gentleman with hx of CKD, Afib on A/C, CAD, CKD, Hypertension, Hyperlipidemia, PVD who presented with AMS/Confusion and found to have MELITA. #MELITA ATN vs. 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 tubular injury, US showed no stones or obstruction, UA w/o protein but UPCR ~0.5 indicating non- albumin proteinuria) #AMS #Newly diagnosed multiple myloma #Anemia #Hypercalcemia of Malignancy (PTH is low) #Hyperdense lesion on US of the kidney #Normal anion gap metabolic acidosis #Hyperkalemia (now resolved) Renal function stable and pt is non-oliguric IVF resuscitation in setting of hypotension start standing fluids once MAP improved continue supportive care goals of care being discussed with family by ICU prognosis is poor corrected Ca is now WNHumberto Miller DO
[2018-03-06] MEDS ORDERED: SODIUM CHLORIDE 250 ML IV STA (11:15)
[2018-03-06] MEDS ORDERED: SODIUM CHLORIDE 1,000 ML IV STA (11:55)
--- NOTE | 2018-03-06 12:28 | PN ---
Teaching Attending Note Name of Resident: Bola Griffith ATTENDING PHYSICIAN STATEMENT I saw and evaluated the patient. I reviewed the resident's note and discussed the case with the resident. I agree with the resident's findings and plan as documented. SUBJECTIVE: Pt seen and examined in the ICU. Remains intubated, sedated. Appears more comfortable on sedation. OBJECTIVE: Vital Signs Period Temp Pulse Resp BP Sys/Ariza Pulse Ox Last 24 Hr 99 F-99.9 F 78-103 14-21 74-124/52-89 99-99 Intake & Output 03/03/18 03/04/18 03/05/18 03/06/18 23:59 23:59 23:59 23:59 Intake Total 4075 3310 3308 1564 Output Total 1400 2300 800 800 Balance 2675 1010 2508 764 Weight 89.3 kg 89.3 kg 90.038 kg Gen: intubated, sedated Heart: RRR Lung: decreased breath sounds at the bases Abd: soft, nontender Ext: UE edema CBC, BMP 03/06/18 05:30 03/06/18 05:30 Active Medications Acetaminophen (Tylenol -) 650 mg PO Q6H PRN PRN Reason: PAIN LEVEL 1 - 3 Last Admin: 03/02/18 03:13 Dose: 650 mg Allopurinol (Zyloprim -) 100 mg PO BID [facility] Last Admin: 03/06/18 10:02 Dose: 100 mg Chlorhexidine Gluconate (Peridex -) 15 ml MM BID [facility] Last Admin: 03/06/18 10:02 Dose: 15 ml Cholecalciferol (Vitamin D3 -) 1,000 unit PO DAILY [facility] Last Admin: 03/06/18 10:00 Dose: 1,000 unit Diphenhydramine HCl (Benadryl Injection -) 25 mg IVPB ONCE PRN PRN Reason: DURING PLASMAPHERESIS Heparin Sodium (Porcine) (Heparin -) 1,000 unit IVPUSH PRN PRN PRN Reason: Heparin Last Admin: 03/01/18 08:03 Dose: 1,000 unit Heparin Sodium (Porcine) (Heparin -) 5,000 unit IVPUSH PRN PRN PRN Reason: Heparin Metronidazole (Flagyl 500mg Premixed Ivpb -) 500 mg in 100 mls @ 100 mls/hr IVPB BID [facility] Last Admin: 03/06/18 09:59 Dose: 100 mls/hr Levofloxacin (Levaquin 250 Mg Premixed Ivpb -) 250 mg in 50 mls @ 50 mls/hr IVPB DAILY [facility]; Protocol Last Admin: 03/06/18 09:59 Dose: 50 mls/hr HEPARIN SOD,PORK IN 0.45% NACL (Heparin-1/2ns 25,000 Units/500) 25,000 units in 500 mls @ 20 mls/hr IVPB TITR [facility]; Protocol Last Titration: 03/06/18 10:05 Dose: 750 units/hr, 15 mls/hr Fentanyl 500 mcg/ Dextrose 100 mls @ 5 mls/hr IVPB TITR [facility]; Protocol Last Titration: 03/06/18 06:44 Dose: 50 mcg/hr, 10 mls/hr Sodium Chloride (Normal Saline -) 1,000 mls @ 1,000 mls/hr IV ASDIR [facility] Stop: 03/06/18 12:54 Sodium Chloride (Normal Saline -) 1,000 mls @ 125 mls/hr IV ASDIR [facility] Lactobacillus Acidophilus (Bacid -) 1 tab PO DAILY [facility] Last Admin: 03/06/18 10:00 Dose: 1 tab Metoprolol Tartrate (Lopressor Injection -) 5 mg IVPUSH Q8H PRN PRN Reason: TACHYCARDIA Last Admin: 03/03/18 18:44 Dose: 5 mg Metoprolol Tartrate (Lopressor -) 75 mg PO BID [facility] Last Admin: 03/06/18 10:00 Dose: 75 mg Pantoprazole Sodium (Protonix Iv) 40 mg IVPUSH DAILY [facility] Last Admin: 03/06/18 10:00 Dose: 40 mg Rifaximin (Xifaxan -) 550 mg PO BID [facility] Last Admin: 03/06/18 10:00 Dose: 550 mg Thiamine HCl (Vitamin B1 -) 100 mg PO DAILY [facility] Last Admin: 03/06/18 10:00 Dose: 100 mg ASSESSMENT AND PLAN: Acute Hypoxic Respiratory Failure Altered Mental Status Metabolic Encephalopathy Pneumonia Acalculous Cholecystitis Multiple Myeloma Acute on Chronic Renal Failure Metabolic Acidosis LV Diastolic Dysfunction Atrial Fibrillation CAD +Troponins likely Demand Ischemia PAD Hyperlipidemia HTN - palliative care input appreciated, family meeting today - continue antibiotics - monitor urine output, creatinine - rate control - minimize sedation to assess mental status - spontaneous breathing trials as tolerated but would not extubate unless mental status improved - DVT/GI prophylaxis - continue discussions regarding goals of care, if unable to reach decision will need tracheostomy as he has been intubated for 3 weeks now - continue ICU monitoring - poor overall prognosis for meaningful recovery critical care time spent in reviewing chart, evaluating patient and formulating plan 35 min
[2018-03-06] MEDS: SODIUM CHLORIDE 1,000 ML IV SCH (14:00)
--- NOTE | 2018-03-06 14:19 | PN ---
Physical Exam: SUBJECTIVE: Patient seen and examined in the ICU. Remains intubated, poorly responsive but now on fentanyl gtt. opens eyes to voice. No pressors, although mild hypotensive this morning. No gross change in overall mental status. GOC/ family meeting initiated and ongoing. meeting today OBJECTIVE: Vital Signs Period Temp Pulse Resp BP Sys/Ariza Pulse Ox Last 24 Hr 98.5 F-99.9 F 78-103 14-21 74-124/52-89 99-99 GENERAL: Remains intubated, poorly responsive off sedation but opens eyes to voice. HEAD: NCAT EYES: sclera anicteric. ENT: Ears normal, nares patent, dry mucous membranes NECK: Trachea midline. LUNGS: bilateral diffuse rhonchi HEART: reg rate and irregular rhythm. ABDOMEN: Soft, nondistended NT EXTREMITIES: 2+ pulses, warm, well-perfused, no edema, scattered ulcers. NEUROLOGICAL: difficult to assess secondary to clinical condition. gag reflex does not appear to be present. opens eyes to voice. corneal reflex+ SKIN: Warm, dry, normal turgor, scattered ulcers on the legs Laboratory Results - last 24 hr 03/06/18 03/06/18 03/06/18 05:30 05:30 05:30 WBC 4.2 RBC 2.64 L Hgb 8.0 L Hct 24.4 L MCV 92.4 MCH 30.2 MCHC 32.7 RDW 16.4 H Plt Count 95 L MPV 10.0 Absolute Neuts (auto) 3.0 Neutrophils % 71.6 Lymphocytes % 18.9 Monocytes % 5.1 Eosinophils % 3.6 D Basophils % 0.8 Nucleated RBC % 4 H PTT (Actin FS) 86.8 H Puncture Site ABG pH ABG pCO2 at Pt Temp ABG pO2 at Pt Temp ABG HCO3 ABG O2 Sat (Measured) ABG O2 Content ABG Base Excess Vinny Test O2 Delivery Device Oxygen Flow Rate Vent Mode Vent Rate PEEP Pressure Support Vent Sodium 140 Potassium 5.0 Chloride 115 H Carbon Dioxide 23 Anion Gap 2 L BUN 58 H Creatinine 1.8 H Creat Clearance w eGFR 36.58 Random Glucose 106 Calcium 7.0 L Phosphorus 4.4 Magnesium 1.7 L Total Bilirubin 0.3 AST 40 H ALT 40 Alkaline Phosphatase 109 Total Protein 9.2 H Albumin 1.1 L 03/06/18 06:00 WBC RBC Hgb Hct MCV MCH MCHC RDW Plt Count MPV Absolute Neuts (auto) Neutrophils % Lymphocytes % Monocytes % Eosinophils % Basophils % Nucleated RBC % PTT (Actin FS) Puncture Site Right radial ABG pH 7.27 L ABG pCO2 at Pt Temp 46.8 H D ABG pO2 at Pt Temp 90.1 D ABG HCO3 20.9 L ABG O2 Sat (Measured) 96.3 ABG O2 Content 10.4 L ABG Base Excess -5.0 L Vinny Test Positive O2 Delivery Device Mech vent Oxygen Flow Rate 40 Vent Mode Prvc Vent Rate 14 PEEP 5.0 Pressure Support Vent 500 Sodium Potassium Chloride Carbon Dioxide Anion Gap BUN Creatinine Creat Clearance w eGFR Random Glucose Calcium Phosphorus Magnesium Total Bilirubin AST ALT Alkaline Phosphatase Total Protein Albumin Active Medications Generic Name Dose Route Start Last Admin Trade Name Freq PRN Reason Stop Dose Admin Acetaminophen 650 mg 02/17/18 14:09 03/02/18 03:13 Tylenol - PO 650 mg Q6H PRN Administration PAIN LEVEL 1 - 3 Allopurinol 100 mg 02/16/18 10:00 03/06/18 10:02 Zyloprim - PO 100 mg BID [facility] Administration Chlorhexidine Gluconate 15 ml 02/17/18 23:45 03/06/18 10:02 Peridex - MM 15 ml BID [facility] Administration Cholecalciferol 1,000 unit 02/25/18 10:00 03/06/18 10:00 Vitamin D3 - PO 1,000 unit DAILY [facility] Administration Diphenhydramine HCl 25 mg 02/16/18 12:00 Benadryl Injection - IVPB ONCE PRN DURING PLASMAPHERESIS Heparin Sodium (Porcine) 1,000 unit 02/28/18 12:23 03/01/18 08:03 Heparin - IVPUSH 1,000 unit PRN PRN Administration Heparin Heparin Sodium (Porcine) 5,000 unit 02/28/18 12:23 Heparin - IVPUSH PRN PRN Heparin Metronidazole 500 mg in 100 mls @ 100 mls/hr 02/24/18 14:30 03/06/18 09:59 Flagyl 500mg Premixed Ivpb - IVPB 100 mls/hr BID [facility] Administration Levofloxacin 250 mg in 50 mls @ 50 mls/hr 02/26/18 12:45 03/06/18 09:59 Levaquin 250 Mg Premixed Ivpb - IVPB 50 mls/hr DAILY [facility] Administration Protocol HEPARIN SOD,PORK IN 0.45% NACL 25,000 units in 500 mls @ 20 mls/hr 02/28/18 13 :00 03/06/18 10:05 Heparin-1/2ns 25,000 Units/500 IVPB 750 units/hr TITR [facility] 15 mls/hr Titration Protocol 1,000 UNITS/HR Fentanyl 500 mcg/ Dextrose 100 mls @ 5 mls/hr 03/04/18 19:00 03/06/18 06:44 IVPB 50 mcg/hr TITR [facility] 10 mls/hr Titration Protocol 25 MCG/HR Sodium Chloride 1,000 mls @ 125 mls/hr 03/06/18 12:00 Normal Saline - IV ASDIR [facility] Lactobacillus Acidophilus 1 tab 03/04/18 10:00 03/06/18 10:00 Bacid - PO 1 tab DAILY [facility] Administration Metoprolol Tartrate 5 mg 02/16/18 13:04 03/03/18 18:44 Lopressor Injection - IVPUSH 5 mg Q8H PRN Administration TACHYCARDIA Metoprolol Tartrate 75 mg 02/23/18 08:30 03/06/18 10:00 Lopressor - PO 75 mg BID [facility] Administration Pantoprazole Sodium 40 mg 02/14/18 12:00 03/06/18 10:00 Protonix Iv IVPUSH 40 mg DAILY [facility] Administration Rifaximin 550 mg 02/22/18 22:00 03/06/18 10:00 Xifaxan - PO 550 mg BID [facility] Administration Thiamine HCl 100 mg 02/06/18 22:12 03/06/18 10:00 Vitamin B1 - PO 100 mg DAILY [facility] Administration ASSESSMENT/PLAN: 77 yo m PMH of A-Fib, Acute on chronic kidney injury, CAD w stents, hypercalcemia, medication non-adherence, paraproteinemia, thromboembolic disease , diastolic heart dysfunction without failure, HTN, HLD, hypertrophic cardiomyopathy is here after a rapid response. He was on the floors when it was noticed that he has respiratory insufficiency and was desaturating, requiring ICU monitoring. GOC/family meeting initiated and ongoing. Plan to have phone conference today. GI: metabolic encephalopathy -ammonia stable in 60s w/ rifaximin, s/p lactulose -LFTs elevated but downtrending. transamintitis most likely secondary to ischemic hepatits which is multifactorial including sepsis, episodes of hypotension and hyperviscosity syndrome. acalculous cholecystitis? US shows thickened gallbladder wall, pericholecystic fluid, suspicious for acalculous cholecystitis. There was also mild dilatation of the CBD but that might be normal for age. -Spoke w/ IR, who feel image does not represent acalculous cholecystitis and does not require any IR drainage ID: No fevers recorded. - Rhonchi heard on Lung auscultation -RLL pneumonia bcx 02/26/18 neg off of ceftazidime Vancomycin Redosed 02/26/18 C diff neg 03/04/18 - c/w levaquin/flagyl. - ID on board - c/w rifaximin for elevated ammonia level Cardio: Afib -[id number] score of 6 - Lopressor 75 mg BID PO -IV metoprolol 5 mg PRN - diastolic dysfunction + hypertrophic cardiomyopathy - CAD with multiple stents - Cardio consulted and on board. off Xarelto 15 qd (renal dosing) while on heparin gtt. transfuse to maintain Hgb >8.0 s/p 1 u prbc 02/27/18, Heparin with caution considering the dropping Hg, transfuse to maintain Hg equal or > 8.0, as outlined in prior notes ideally A/C therapy to be continued indefinitely unless it is absolutely contraindicated considering his [id number] score of 6 - Sporadically goes in and out of V-Tach - Can give amio if v-tach is sustained and persistent. Pulm: - Intubated - Patient has b/l pleural effusions. - No pneumothorax - b/l diffuse rhonchi - infiltrate on CXR: Abx- Substituting levaquin for ceftazidime Vancomycin Redosed 02/26/18 - c/w levaquin/flagyl. Renal: - Acute on Chronic kidney injury MELITA ATN vs. 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 tubular injury, US showed no stones or obstruction, UA w/o protein but UPCR ~0.5 indicating non- albumin proteinuria) - Renal consulted and on board. Hyperkalemia (r/o tumor lysis) serum K is improved, s/p bicarb gtt Neuro: - Patient is not alert or oriented. Remains intubated, poorly responsive but now on fentanyl gtt. opens eyes to voice - Head CT showed no acute pathology - Neuro consulted and on board. (Dr. Kuo + Dr. mejia) -ammonia stable in 60s w/ rifaximin, lactulose dcd Heme/Onc: - monitor H/H - Will transfuse to keep hb > 8 - Patient not receiving plasmapharesis today. - Paraproteinemia - Patient fulfills new criteria for multiple myeloma with free kappa/ free lambda light chain ratio of 432 (>100 is diagnostic of myeloma) - [place]/Lambda ratio > 100 consistent with Multiple myeloma - M spike elevated elevated at 6.8 previously 4.7 -steroids being held at this time s/p 1 u prbc 02/27/18 and 1 u prbc 03/01/18, Heparin with caution considering the dropping Hg, transfuse to maintain Hg equal or > 8.0, as outlined in prior notes ideally A/C therapy to be continued indefinitely unless it is absolutely contraindicated considering his [id number] score of 6 Endo: - Parathyroid hormone WNL - PTH-borderline low appropriate given hypercalcemia, PTHrP low Prophylaxis: - Heparin with caution considering the dropping Hg, transfuse to maintain Hg equal or > 8.0, as outlined in prior notes ideally A/C therapy to be continued indefinitely unless it is absolutely contraindicated considering his [id number] score of 6 - Protonix F/E/N: F: mild hypotensive this morning, gave 250cc boluses, start NS 125cc/hr E: Will replete lytes PRN N: tube feeds (low potassium feeds). with free water Code Status: Full Code - GOC/family meeting initiated and ongoing. Plan to have phone conference today. if unable to reach family will need tracheostomy as he is approaching 3 weeks intubated - Compassionate extubation versus Tracheostomy Dispo: Patient will continue to receive ICU level care Visit type - Emergency Visit Emergency Visit: Yes ED Registration Date: 02/06/18 Care time: The patient presented to the Emergency Department on the above date and was hospitalized for further evaluation of their emergent condition. - New Patient This patient is new to me today: Yes Date on this admission: 03/06/18 - Critical Care Critical Care patient: Yes Total Critical Care Time (in minutes): 38 Critical Care Statement: The care of this patient involved high complexity decision making to prevent further life threatening deterioration of the patient 's condition and/or to evaluate & treat vital organ system(s) failure or risk of failure.
[2018-03-06] MEDS: FENTANYL INJECTION 500 MCG in DEXTROSE 5%-WATER - 90 ML IVPB SCH (21:26)
[2018-03-07] MEDS ORDERED: fentaNYL CITRATE 250 MCG/5 ML VIAL ONE (05:53)
[2018-03-07 06:32] LABS: BASO % 0.4 % (0-2.0); EOS % 2.8 % (0-4.5); HEMATOCRIT 20.4 % (35.4-49); LYMPH % 20.8 % (8-40); MCH 30.2 pg (25.7-33.7); MCHC 32.9 g/dl (32.0-35.9); MEAN CELL VOLUME 91.7 fl (80-96); MEAN PLT VOLUME 10.3 fl (7.5-11.1); MONO % 3.3 % (3.8-10.2); NEUT % 72.7 % (42.8-82.8); PLATELET COUNT 84 K/MM3 (134-434); RBC 2.23 M/mm3 (4.00-5.60); RDW 15.5 % (11.9-15.9); WHITE BLOOD COUNT 4.1 K/mm3 (4.0-10.0)
[2018-03-07 07:05] LABS: ARTERIAL BLD GAS O2 SATURATION 98.3 % (90-98.9); ARTERIAL BLOOD GAS PCO2 35.8 mmHg (35-45); ARTERIAL BLOOD GAS pH 7.34 (7.35-7.45)
[2018-03-07 07:54] LABS: HEMOGLOBIN 6.7 GM/dL (11.7-16.9)
[2018-03-07 08:03] LABS: ALBUMIN 0.9 g/dl (3.4-5.0); ALK PHOS 128 U/L (45-117); ANION GAP 4 MMOL/L (8-16); BILIRUBIN,TOTAL 0.3 mg/dL (0.2-1); BLOOD UREA NITROGEN 63 mg/dL (7-18); CHLORIDE 115 mmol/L (98-107); CO2 21 mmol/L (21-32); CREATININE 1.7 mg/dL (0.55-1.3); GLUCOSE,RANDOM 99 mg/dL (74-106); MAGNESIUM 1.9 mg/dL (1.8-2.4); PHOSPHOROUS 4.2 mg/dL (2.5-4.9); POTASSIUM 4.7 mmol/L (3.5-5.1); SGOT/AST 46 U/L (15-37); SGPT/ALT 33 U/L (13-61); SODIUM 140 mmol/L (136-145); TOT PROT 7.9 g/dl (6.4-8.2)
--- NOTE | 2018-03-07 09:24 | PN ---
Progress Note, Physician - Current Medication List Current Medications: Active Medications Acetaminophen (Tylenol -) 650 mg PO Q6H PRN PRN Reason: PAIN LEVEL 1 - 3 Last Admin: 03/02/18 03:13 Dose: 650 mg Allopurinol (Zyloprim -) 100 mg PO BID [facility] Last Admin: 03/06/18 21:25 Dose: 100 mg Chlorhexidine Gluconate (Peridex -) 15 ml MM BID [facility] Last Admin: 03/06/18 21:26 Dose: Not Given Cholecalciferol (Vitamin D3 -) 1,000 unit PO DAILY [facility] Last Admin: 03/06/18 10:00 Dose: 1,000 unit Diphenhydramine HCl (Benadryl Injection -) 25 mg IVPB ONCE PRN PRN Reason: DURING PLASMAPHERESIS Metronidazole (Flagyl 500mg Premixed Ivpb -) 500 mg in 100 mls @ 100 mls/hr IVPB BID [facility] Last Admin: 03/06/18 21:27 Dose: 100 mls/hr Levofloxacin (Levaquin 250 Mg Premixed Ivpb -) 250 mg in 50 mls @ 50 mls/hr IVPB DAILY [facility]; Protocol Last Admin: 03/06/18 09:59 Dose: 50 mls/hr Fentanyl 500 mcg/ Dextrose 100 mls @ 5 mls/hr IVPB TITR [facility]; Protocol Last Titration: 03/07/18 06:00 Dose: 50 mcg/hr, 10 mls/hr Sodium Chloride (Normal Saline -) 1,000 mls @ 125 mls/hr IV ASDIR [facility] Last Admin: 03/06/18 14:00 Dose: 125 mls/hr Lactobacillus Acidophilus (Bacid -) 1 tab PO DAILY [facility] Last Admin: 03/06/18 10:00 Dose: 1 tab Metoprolol Tartrate (Lopressor Injection -) 5 mg IVPUSH Q8H PRN PRN Reason: TACHYCARDIA Last Admin: 03/03/18 18:44 Dose: 5 mg Metoprolol Tartrate (Lopressor -) 75 mg PO BID [facility] Last Admin: 03/06/18 21:26 Dose: Not Given Pantoprazole Sodium (Protonix Iv) 40 mg IVPUSH DAILY [facility] Last Admin: 03/06/18 10:00 Dose: 40 mg Rifaximin (Xifaxan -) 550 mg PO BID [facility] Last Admin: 03/06/18 21:25 Dose: 550 mg Thiamine HCl (Vitamin B1 -) 100 mg PO DAILY [facility] Last Admin: 03/06/18 10:00 Dose: 100 mg - Objective Vital Signs: Vital Signs Temperature 99.2 F 03/07/18 06:00 Pulse Rate 90 03/07/18 06:00 Respiratory Rate 18 03/07/18 06:40 Blood Pressure 89/64 L 03/07/18 06:00 O2 Sat by Pulse Oximetry (%) 100 03/06/18 20:05 Cardiovascular: Yes: S1, S2 Respiratory: Yes: Mechanically Ventilated Gastrointestinal: Yes: Normal Bowel Sounds, Soft Labs: CBC, BMP 03/07/18 05:30 03/07/18 05:30 INR, PTT INR 1.28 (0.83-1.09) H 02/22/18 05:30 Fibrinogen 290.0 mg/dL (238-498) 02/18/18 06:00 Problem List - Problems (1) Toxic metabolic encephalopathy Code(s): G92 - TOXIC ENCEPHALOPATHY (2) Cellulitis Code(s): L03.90 - CELLULITIS, UNSPECIFIED Qualifiers: Site of cellulitis: extremity Site of cellulitis of extremity: lower extremity Laterality: right Qualified Code(s): L03.115 - Cellulitis of right lower limb (3) Sepsis Code(s): A41.9 - SEPSIS, UNSPECIFIED ORGANISM (4) Artery occlusion Code(s): I70.90 - UNSPECIFIED ATHEROSCLEROSIS (5) Hypercalcemia Code(s): E83.52 - HYPERCALCEMIA (6) Paroxysmal atrial fibrillation Code(s): I48.0 - PAROXYSMAL ATRIAL FIBRILLATION (7) MELITA (acute kidney injury) Code(s): N17.9 - ACUTE KIDNEY FAILURE, UNSPECIFIED Assessment/Plan - Problems (1) Elevated LFTs Assessment/Plan: ultrasound of liver noted suggestive of acalculous cholecystitis, will get GI consult- noted lft trending down Code(s): R94.5 - ABNORMAL RESULTS OF LIVER FUNCTION STUDIES (2) MELITA (acute kidney injury) Assessment/Plan: MELITA vs ATN- iv calcium- repleted potassium now normal range- hyperkalemia improved ultrasound hyperdense lesion noted in left renal cortex Code(s): N17.9 - ACUTE KIDNEY FAILURE, UNSPECIFIED (3) Atrial fibrillation with RVR Assessment/Plan: heparin drip --dc due to anemia deck cadet rate control with metoprolol (4) Respiratory failure Assessment/Plan: intubated propofol/fentanyl aviating family decision regarding goals of care possible compassionate weaning vs tracheostomy Code(s): J96.90 - RESPIRATORY FAILURE, UNSP, UNSP W HYPOXIA OR HYPERCAPNIA (5) Toxic metabolic encephalopathy Assessment/Plan: Microbiology 02/21/18 11:20 Urine - Urine Brenner Urine Culture - Final NO GROWTH OBTAINED 02/13/18 14:30 Urine - Urine Brenner Legionella Antigen - Final 02/13/18 14:30 Urine - Urine Brenner Streptococcus pneumoniae Antigen (M - Final 02/13/18 14:30 Sputum - Endotrachea Suction/Ventilator Gram Stain - Final 02/13/18 14:30 Sputum - Endotrachea Suction/Ventilator Sputum Culture - Final Stenotrophomon.(X.)Maltophilia 02/21/18 09:58 Blood - Peripheral Venous Blood Culture - Preliminary NO GROWTH OBTAINED AFTER 24 HOURS, INCUBATION TO CONTINUE FOR 4 DAYS. 02/21/18 09:50 Blood - Peripheral Venous Blood Culture - Preliminary NO GROWTH OBTAINED AFTER 24 HOURS, INCUBATION TO CONTINUE FOR 4 DAYS. 02/17/18 15:00 Blood - Peripheral Venous Blood Culture - Preliminary NO GROWTH OBTAINED AFTER 96 HOURS, INCUBATION TO CONTINUE FOR 1 DAYS. 02/17/18 14:00 Blood - Central Line Blood Culture - Preliminary NO GROWTH OBTAINED AFTER 96 HOURS, INCUBATION TO CONTINUE FOR 1 DAYS. RLL PNA levaquin/flagyl Code(s): G92 - TOXIC ENCEPHALOPATHY (6) Anemia Assessment/Plan: -Hold Heparin Trnsfuse
[2018-03-07] MEDS: CHOLECALCIFEROL (VITAMIN D3) 1,000 UNIT TABLET (FP) PO SCH (10:00)
[2018-03-07] MEDS: ALLOPURINOL 100 MG TABLET (FP) PO SCH ×2 (10:00→21:23)
[2018-03-07] MEDS: RIFAXIMIN 550 MG TABLET (UD) PO SCH ×2 (10:00→21:23)
[2018-03-07] MEDS: LACTOBACILLUS ACIDOPHILUS 1 TABLET PO SCH (10:00)
[2018-03-07] MEDS: THIAMINE HCL 100 MG TABLET (FP) PO SCH (10:00)
[2018-03-07] MEDS: PANTOPRAZOLE SODIUM 40 MG VIAL IVPUSH SCH (10:01)
[2018-03-07] MEDS: CHLORHEXIDINE GLUCONATE 0.12% 15ML CUP MM SCH ×2 (10:02→21:23)
[2018-03-07] MEDS: METOPROLOL TARTRATE 50 MG TABLET (FP) PO SCH ×2 (10:19→21:23)
--- NOTE | 2018-03-07 10:34 | PN ---
Progress Note, Physician History of Present Illness: Unresponsive on ventilator Afebrile wbc wnl Thrombocytopenic C difficile negative - Current Medication List Current Medications: Active Medications Acetaminophen (Tylenol -) 650 mg PO Q6H PRN PRN Reason: PAIN LEVEL 1 - 3 Last Admin: 03/02/18 03:13 Dose: 650 mg Allopurinol (Zyloprim -) 100 mg PO BID [facility] Last Admin: 03/07/18 10:00 Dose: 100 mg Chlorhexidine Gluconate (Peridex -) 15 ml MM BID [facility] Last Admin: 03/07/18 10:02 Dose: 15 ml Cholecalciferol (Vitamin D3 -) 1,000 unit PO DAILY [facility] Last Admin: 03/07/18 10:00 Dose: 1,000 unit Diphenhydramine HCl (Benadryl Injection -) 25 mg IVPB ONCE PRN PRN Reason: DURING PLASMAPHERESIS Metronidazole (Flagyl 500mg Premixed Ivpb -) 500 mg in 100 mls @ 100 mls/hr IVPB BID [facility] Last Admin: 03/06/18 21:27 Dose: 100 mls/hr Levofloxacin (Levaquin 250 Mg Premixed Ivpb -) 250 mg in 50 mls @ 50 mls/hr IVPB DAILY [facility]; Protocol Last Admin: 03/07/18 10:01 Dose: 50 mls/hr Fentanyl 500 mcg/ Dextrose 100 mls @ 5 mls/hr IVPB TITR [facility]; Protocol Last Titration: 03/07/18 06:00 Dose: 50 mcg/hr, 10 mls/hr Sodium Chloride (Normal Saline -) 1,000 mls @ 125 mls/hr IV ASDIR [facility] Last Admin: 03/06/18 14:00 Dose: 125 mls/hr Lactobacillus Acidophilus (Bacid -) 1 tab PO DAILY [facility] Last Admin: 03/07/18 10:00 Dose: 1 tab Metoprolol Tartrate (Lopressor Injection -) 5 mg IVPUSH Q8H PRN PRN Reason: TACHYCARDIA Last Admin: 03/03/18 18:44 Dose: 5 mg Metoprolol Tartrate (Lopressor -) 75 mg PO BID [facility] Last Admin: 03/07/18 10:19 Dose: Not Given Pantoprazole Sodium (Protonix Iv) 40 mg IVPUSH DAILY [facility] Last Admin: 03/07/18 10:01 Dose: 40 mg Rifaximin (Xifaxan -) 550 mg PO BID [facility] Last Admin: 03/07/18 10:00 Dose: 550 mg Thiamine HCl (Vitamin B1 -) 100 mg PO DAILY [facility] Last Admin: 03/07/18 10:00 Dose: 100 mg - Objective Vital Signs: Vital Signs Temperature 99.2 F 03/07/18 06:00 Pulse Rate 90 03/07/18 06:00 Respiratory Rate 18 03/07/18 06:40 Blood Pressure 89/64 L 03/07/18 06:00 O2 Sat by Pulse Oximetry (%) 100 03/07/18 09:00 Constitutional: Yes: No Distress Eyes: Yes: Conjunctiva Clear Cardiovascular: Yes: Regular Rate and Rhythm, S1, S2 Respiratory: Yes: Mechanically Ventilated Gastrointestinal: Yes: Normal Bowel Sounds, Soft. No: Tenderness Edema: Yes Labs: CBC, BMP 03/07/18 05:30 03/07/18 05:30 INR, PTT INR 1.28 (0.83-1.09) H 02/22/18 05:30 Fibrinogen 290.0 mg/dL (238-498) 02/18/18 06:00 Assessment/Plan Respiratory failure RLL pneumonia Acalculus Cholecystitis Toxic metabolic encephalopathy Renal failure Myeloma Hyperviscosity syndrome Diarrhea Continue levaquin / flagyl Ventilatory support Prognosis poor
--- NOTE | 2018-03-07 11:37 | PN ---
Teaching Attending Note Name of Resident: Bola Griffith ATTENDING PHYSICIAN STATEMENT I saw and evaluated the patient. I reviewed the resident's note and discussed the case with the resident. I agree with the resident's findings and plan as documented. SUBJECTIVE: Pt seen and examined in the ICU. Remains intubated, poorly responsive. Hypotensive this AM and H/H low without obvious source of bleeding. Family meeting yesterday without consensus but favoring tracheostomy. OBJECTIVE: Vital Signs Period Temp Pulse Resp BP Sys/Ariza Pulse Ox Last 24 Hr 98.1 F-99.2 F 59-95 14-18 76-96/51-67 99-100 Intake & Output 03/04/18 03/05/18 03/06/18 03/07/18 23:59 23:59 23:59 23:59 Intake Total 3310 3308 3894 2908 Output Total 2300 800 1700 400 Balance 1010 2508 2194 2508 Weight 89.3 kg 89.3 kg 90.038 kg 92.986 kg Gen: intubated, poorly responsive Heart: RRR Lung: scattered rhonchi Abd: soft, nontender Ext: + edema CBC, BMP 03/07/18 05:30 03/07/18 05:30 Active Medications Acetaminophen (Tylenol -) 650 mg PO Q6H PRN PRN Reason: PAIN LEVEL 1 - 3 Last Admin: 03/02/18 03:13 Dose: 650 mg Allopurinol (Zyloprim -) 100 mg PO BID [facility] Last Admin: 03/07/18 10:00 Dose: 100 mg Chlorhexidine Gluconate (Peridex -) 15 ml MM BID [facility] Last Admin: 03/07/18 10:02 Dose: 15 ml Cholecalciferol (Vitamin D3 -) 1,000 unit PO DAILY [facility] Last Admin: 03/07/18 10:00 Dose: 1,000 unit Diphenhydramine HCl (Benadryl Injection -) 25 mg IVPB ONCE PRN PRN Reason: DURING PLASMAPHERESIS Metronidazole (Flagyl 500mg Premixed Ivpb -) 500 mg in 100 mls @ 100 mls/hr IVPB BID [facility] Last Admin: 03/07/18 10:45 Dose: 100 mls/hr Levofloxacin (Levaquin 250 Mg Premixed Ivpb -) 250 mg in 50 mls @ 50 mls/hr IVPB DAILY [facility]; Protocol Last Admin: 03/07/18 10:01 Dose: 50 mls/hr Fentanyl 500 mcg/ Dextrose 100 mls @ 5 mls/hr IVPB TITR [facility]; Protocol Last Titration: 03/07/18 06:00 Dose: 50 mcg/hr, 10 mls/hr Sodium Chloride (Normal Saline -) 1,000 mls @ 125 mls/hr IV ASDIR [facility] Last Admin: 03/06/18 14:00 Dose: 125 mls/hr Lactobacillus Acidophilus (Bacid -) 1 tab PO DAILY [facility] Last Admin: 03/07/18 10:00 Dose: 1 tab Metoprolol Tartrate (Lopressor Injection -) 5 mg IVPUSH Q8H PRN PRN Reason: TACHYCARDIA Last Admin: 03/03/18 18:44 Dose: 5 mg Metoprolol Tartrate (Lopressor -) 75 mg PO BID [facility] Last Admin: 03/07/18 10:19 Dose: Not Given Pantoprazole Sodium (Protonix Iv) 40 mg IVPUSH DAILY [facility] Last Admin: 03/07/18 10:01 Dose: 40 mg Rifaximin (Xifaxan -) 550 mg PO BID [facility] Last Admin: 03/07/18 10:00 Dose: 550 mg Thiamine HCl (Vitamin B1 -) 100 mg PO DAILY [facility] Last Admin: 03/07/18 10:00 Dose: 100 mg ASSESSMENT AND PLAN: Acute Hypoxic Respiratory Failure Altered Mental Status Metabolic Encephalopathy Pneumonia Acalculous Cholecystitis Multiple Myeloma Acute on Chronic Renal Failure Metabolic Acidosis LV Diastolic Dysfunction Atrial Fibrillation CAD +Troponins likely Demand Ischemia PAD Hyperlipidemia HTN Anemia - transfuse PRBC - monitor H/H - if H/H continues to drop, will need CT A/P - continue antibiotics - monitor urine output, creatinine - rate control - minimize sedation to assess mental status - DVT/GI prophylaxis - continue discussions regarding goals of care, if unable to reach decision will need tracheostomy as he has been intubated for over 3 weeks - continue ICU monitoring - poor overall prognosis for meaningful recovery critical care time spent in reviewing chart, evaluating patient and formulating plan 35 min
--- NOTE | 2018-03-07 11:48 | PN ---
Progress Note (short form) - Note Progress Note: Renal follow up for Hypercalcemia/MELITA Pt seen and examined in the ICU on vent, not responsive no overnight events Vital Signs Temperature 98.2 F 03/07/18 10:00 Pulse Rate 95 H 03/07/18 10:00 Respiratory Rate 18 03/07/18 10:00 Blood Pressure 96/67 03/07/18 10:00 O2 Sat by Pulse Oximetry (%) 100 03/07/18 09:00 Intake & Output 03/04/18 03/05/18 03/06/18 03/07/18 23:59 23:59 23:59 23:59 Intake Total 3310 3308 3894 2908 Output Total 2300 800 1700 400 Balance 1010 2508 2194 2508 Weight 89.3 kg 89.3 kg 90.038 kg 92.986 kg NAD no LE edema Making uriine via francois CBC, BMP 03/07/18 05:30 03/07/18 05:30 Laboratory Tests 03/05/18 03/06/18 03/07/18 05:30 05:30 05:30 Calcium 6.9 L* 6.4 L* Phosphorus 3.6 4.4 4.2 Magnesium 1.9 1.7 L 1.9 Albumin 1.2 L 1.1 L 0.9 L Current Medications Acetaminophen (Tylenol -) 650 mg PO Q6H PRN PRN Reason: PAIN LEVEL 1 - 3 Last Admin: 03/02/18 03:13 Dose: 650 mg Allopurinol (Zyloprim -) 100 mg PO BID [facility] Last Admin: 03/07/18 10:00 Dose: 100 mg Chlorhexidine Gluconate (Peridex -) 15 ml MM BID [facility] Last Admin: 03/07/18 10:02 Dose: 15 ml Cholecalciferol (Vitamin D3 -) 1,000 unit PO DAILY [facility] Last Admin: 03/07/18 10:00 Dose: 1,000 unit Diphenhydramine HCl (Benadryl Injection -) 25 mg IVPB ONCE PRN PRN Reason: DURING PLASMAPHERESIS Metronidazole (Flagyl 500mg Premixed Ivpb -) 500 mg in 100 mls @ 100 mls/hr IVPB BID [facility] Last Admin: 03/07/18 10:45 Dose: 100 mls/hr Levofloxacin (Levaquin 250 Mg Premixed Ivpb -) 250 mg in 50 mls @ 50 mls/hr IVPB DAILY [facility]; Protocol Last Admin: 03/07/18 10:01 Dose: 50 mls/hr Fentanyl 500 mcg/ Dextrose 100 mls @ 5 mls/hr IVPB TITR [facility]; Protocol Last Titration: 03/07/18 06:00 Dose: 50 mcg/hr, 10 mls/hr Sodium Chloride (Normal Saline -) 1,000 mls @ 125 mls/hr IV ASDIR [facility] Last Admin: 03/06/18 14:00 Dose: 125 mls/hr Lactobacillus Acidophilus (Bacid -) 1 tab PO DAILY [facility] Last Admin: 03/07/18 10:00 Dose: 1 tab Metoprolol Tartrate (Lopressor Injection -) 5 mg IVPUSH Q8H PRN PRN Reason: TACHYCARDIA Last Admin: 03/03/18 18:44 Dose: 5 mg Metoprolol Tartrate (Lopressor -) 75 mg PO BID [facility] Last Admin: 03/07/18 10:19 Dose: Not Given Pantoprazole Sodium (Protonix Iv) 40 mg IVPUSH DAILY [facility] Last Admin: 03/07/18 10:01 Dose: 40 mg Rifaximin (Xifaxan -) 550 mg PO BID [facility] Last Admin: 03/07/18 10:00 Dose: 550 mg Thiamine HCl (Vitamin B1 -) 100 mg PO DAILY [facility] Last Admin: 03/07/18 10:00 Dose: 100 mg 77 year old gentleman with hx of CKD, Afib on A/C, CAD, CKD, Hypertension, Hyperlipidemia, PVD who presented with AMS/Confusion and found to have MELITA. #MELITA ATN vs. 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 tubular injury, US showed no stones or obstruction, UA w/o protein but UPCR ~0.5 indicating non- albumin proteinuria) #AMS #Newly diagnosed multiple myloma #Anemia #Hypercalcemia of Malignancy (PTH is low) #Hyperdense lesion on US of the kidney #Normal anion gap metabolic acidosis #Hyperkalemia (now resolved) Renal function stable at this time continue supportive care continue tube feeds with free water Trend renal function and electrolytes daily Mack Jackson DO
--- NOTE | 2018-03-07 11:58 | PN ---
Physical Exam: SUBJECTIVE: Patient seen and examined in the ICU. Remains intubated, poorly responsive but now on fentanyl gtt. opens eyes to voice. No gross change in overall mental status. No pressors. Hypotensive this AM and H/H low without obvious source of bleeding. Family meeting yesterday without consensus but favoring tracheostomy. OBJECTIVE: Vital Signs Period Temp Pulse Resp BP Sys/Ariza Pulse Ox Last 24 Hr 98.1 F-99.2 F 59-95 14-18 76-96/51-67 99-100 GENERAL: Remains intubated, poorly responsive off sedation but opens eyes to voice. HEAD: EYES: sclera anicteric. NCAT PERRL ENT: Ears normal, nares patent, dry mucous membranes NECK: Trachea midline. LUNGS: bilateral diffuse rhonchi HEART: reg rate and irregular rhythm. ABDOMEN: Soft, nondistended NT EXTREMITIES: 2+ pulses, warm, well-perfused, no edema, scattered ulcers. NEUROLOGICAL: difficult to assess secondary to clinical condition. gag reflex does not appear to be present. opens eyes to voice. corneal reflex+, +gag reflex SKIN: Warm, dry, normal turgor, scattered ulcers on the legs Laboratory Results - last 24 hr 03/06/18 03/07/18 03/07/18 18:50 05:30 05:30 WBC 4.1 RBC 2.23 L Hgb 6.7 L* Hct 20.4 L D MCV 91.7 MCH 30.2 MCHC 32.9 RDW 15.5 Plt Count 84 L MPV 10.3 Absolute Neuts (auto) 3.0 Neutrophils % 72.7 Lymphocytes % 20.8 Monocytes % 3.3 L Eosinophils % 2.8 Basophils % 0.4 Nucleated RBC % 4 H PTT (Actin FS) 84.4 H Anticoagulation Therapy Puncture Site ABG pH ABG pCO2 at Pt Temp ABG pO2 at Pt Temp ABG HCO3 ABG O2 Sat (Measured) ABG O2 Content ABG Base Excess Vinny Test O2 Delivery Device Oxygen Flow Rate Vent Mode Vent Rate Mechanical Rate PEEP Pressure Support Vent Sodium 140 Potassium 4.7 Chloride 115 H Carbon Dioxide 21 Anion Gap 4 L BUN 63 H Creatinine 1.7 H Creat Clearance w eGFR 39.07 Random Glucose 99 Calcium 6.4 L* Phosphorus 4.2 Magnesium 1.9 Total Bilirubin 0.3 AST 46 H ALT 33 Alkaline Phosphatase 128 H Total Protein 7.9 Albumin 0.9 L Blood Type Antibody Screen Crossmatch 03/07/18 03/07/18 03/07/18 05:30 06:20 08:30 WBC RBC Hgb Hct MCV MCH MCHC RDW Plt Count MPV Absolute Neuts (auto) Neutrophils % Lymphocytes % Monocytes % Eosinophils % Basophils % Nucleated RBC % PTT (Actin FS) 74.7 H Anticoagulation Therapy No Result Required. Puncture Site Right radial ABG pH 7.34 L ABG pCO2 at Pt Temp 35.8 D ABG pO2 at Pt Temp 119.0 H D ABG HCO3 18.7 L ABG O2 Sat (Measured) 98.3 ABG O2 Content 11.0 L ABG Base Excess -6.0 L Vinny Test No Result Required. O2 Delivery Device Mech vent Oxygen Flow Rate 40 Vent Mode A/c Vent Rate 18 Mechanical Rate No Result Required. PEEP 5.0 Pressure Support Vent 500 Sodium Potassium Chloride Carbon Dioxide Anion Gap BUN Creatinine Creat Clearance w eGFR Random Glucose Calcium Phosphorus Magnesium Total Bilirubin AST ALT Alkaline Phosphatase Total Protein Albumin Blood Type B POSITIVE Antibody Screen Negative Crossmatch See Detail Active Medications Generic Name Dose Route Start Last Admin Trade Name Freq PRN Reason Stop Dose Admin Acetaminophen 650 mg 02/17/18 14:09 03/02/18 03:13 Tylenol - PO 650 mg Q6H PRN Administration PAIN LEVEL 1 - 3 Allopurinol 100 mg 02/16/18 10:00 03/07/18 10:00 Zyloprim - PO 100 mg BID [facility] Administration Chlorhexidine Gluconate 15 ml 02/17/18 23:45 03/07/18 10:02 Peridex - MM 15 ml BID [facility] Administration Cholecalciferol 1,000 unit 02/25/18 10:00 03/07/18 10:00 Vitamin D3 - PO 1,000 unit DAILY [facility] Administration Diphenhydramine HCl 25 mg 02/16/18 12:00 Benadryl Injection - IVPB ONCE PRN DURING PLASMAPHERESIS Metronidazole 500 mg in 100 mls @ 100 mls/hr 02/24/18 14:30 03/07/18 10:45 Flagyl 500mg Premixed Ivpb - IVPB 100 mls/hr BID [facility] Administration Levofloxacin 250 mg in 50 mls @ 50 mls/hr 02/26/18 12:45 03/07/18 10:01 Levaquin 250 Mg Premixed Ivpb - IVPB 50 mls/hr DAILY [facility] Administration Protocol Fentanyl 500 mcg/ Dextrose 100 mls @ 5 mls/hr 03/04/18 19:00 03/07/18 06:00 IVPB 50 mcg/hr TITR [facility] 10 mls/hr Titration Protocol 25 MCG/HR Sodium Chloride 1,000 mls @ 125 mls/hr 03/06/18 12:00 03/06/18 14:00 Normal Saline - IV 125 mls/hr ASDIR [facility] Administration Lactobacillus Acidophilus 1 tab 03/04/18 10:00 03/07/18 10:00 Bacid - PO 1 tab DAILY [facility] Administration Metoprolol Tartrate 5 mg 02/16/18 13:04 03/03/18 18:44 Lopressor Injection - IVPUSH 5 mg Q8H PRN Administration TACHYCARDIA Metoprolol Tartrate 75 mg 02/23/18 08:30 03/07/18 10:19 Lopressor - PO Not Given BID [facility] Pantoprazole Sodium 40 mg 02/14/18 12:00 03/07/18 10:01 Protonix Iv IVPUSH 40 mg DAILY [facility] Administration Rifaximin 550 mg 02/22/18 22:00 03/07/18 10:00 Xifaxan - PO 550 mg BID [facility] Administration Thiamine HCl 100 mg 02/06/18 22:12 03/07/18 10:00 Vitamin B1 - PO 100 mg DAILY [facility] Administration ASSESSMENT/PLAN: 77 yo m PMH of A-Fib, Acute on chronic kidney injury, CAD w stents, hypercalcemia, medication non-adherence, paraproteinemia, thromboembolic disease , diastolic heart dysfunction without failure, HTN, HLD, hypertrophic cardiomyopathy is here after a rapid response. He was on the floors when it was noticed that he has respiratory insufficiency and was desaturating, requiring ICU monitoring. GOC/family meeting initiated and ongoing. Plan to have phone conference today. GI: metabolic encephalopathy -ammonia stable in 60s w/ rifaximin, s/p lactulose -LFTs elevated but downtrending. transamintitis most likely secondary to ischemic hepatits which is multifactorial including sepsis, episodes of hypotension and hyperviscosity syndrome. acalculous cholecystitis? US shows thickened gallbladder wall, pericholecystic fluid, suspicious for acalculous cholecystitis. There was also mild dilatation of the CBD but that might be normal for age. -Spoke w/ IR, who feel image does not represent acalculous cholecystitis and does not require any IR drainage ID: No fevers recorded. - Rhonchi heard on Lung auscultation -RLL pneumonia bcx 02/26/18 neg off of ceftazidime Vancomycin Redosed 02/26/18 C diff neg 03/04/18 - c/w levaquin/flagyl. - ID on board - c/w rifaximin for elevated ammonia level Cardio: Afib -[id number] score of 6 - Lopressor 75 mg BID PO -IV metoprolol 5 mg PRN - diastolic dysfunction + hypertrophic cardiomyopathy - CAD with multiple stents - Cardio consulted and on board. off Xarelto 15 qd (renal dosing) while on heparin gtt. transfuse to maintain Hgb >8.0 s/p 1 u prbc 02/27/18, Heparin with caution considering the dropping Hg, transfuse to maintain Hg equal or > 8.0, as outlined in prior notes ideally A/C therapy to be continued indefinitely unless it is absolutely contraindicated considering his [id number] score of 6 - Sporadically goes in and out of V-Tach - Can give amio if v-tach is sustained and persistent. -Hypotensive this AM and H/H low without obvious source of bleeding. will give 2 U prbcs Pulm: - Intubated - Patient has b/l pleural effusions. - No pneumothorax - b/l diffuse rhonchi - infiltrate on CXR: Abx- Substituting levaquin for ceftazidime Vancomycin Redosed 02/26/18 - c/w levaquin/flagyl. Renal: - Acute on Chronic kidney injury MELITA ATN vs. 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 tubular injury, US showed no stones or obstruction, UA w/o protein but UPCR ~0.5 indicating non- albumin proteinuria) - Renal consulted and on board. Hyperkalemia (r/o tumor lysis) serum K is improved, s/p bicarb gtt Neuro: - Patient is not alert or oriented. Remains intubated, poorly responsive but now on fentanyl gtt. opens eyes to voice - Head CT showed no acute pathology - Neuro consulted and on board. (Dr. Kuo + Dr. mejia) -ammonia stable in 60s w/ rifaximin, lactulose dcd Heme/Onc: - monitor H/H - Will transfuse to keep hb > 8 - Patient not receiving plasmapharesis today. - Paraproteinemia - Patient fulfills new criteria for multiple myeloma with free kappa/ free lambda light chain ratio of 432 (>100 is diagnostic of myeloma) - [place]/Lambda ratio > 100 consistent with Multiple myeloma - M spike elevated elevated at 6.8 previously 4.7 -steroids being held at this time s/p 1 u prbc 02/27/18 and 1 u prbc 03/01/18, Heparin with caution considering the dropping Hg, transfuse to maintain Hg equal or > 8.0, as outlined in prior notes ideally A/C therapy to be continued indefinitely unless it is absolutely contraindicated considering his [id number] score of 6 -Hypotensive this AM and H/H low (6.7) without obvious source of bleeding. will give 2 U prbcs and dc heparin -platelets are low and downtrending. will check coags, fibrinogen, and HIT AB - if H/H continues to drop, will need CT A/P Endo: - Parathyroid hormone WNL - PTH-borderline low appropriate given hypercalcemia, PTHrP low Prophylaxis: - Hypotensive this AM and H/H low (6.7) without obvious source of bleeding. will give 2 U prbcs and dc heparin -platelets are low and downtrending. will check coags, fibrinogen, and HIT AB transfuse to maintain Hg equal or > 8.0, as outlined in prior notes ideally A/C therapy to be continued indefinitely unless it is absolutely contraindicated considering his [id number] score of 6 - Protonix F/E/N: F: c/w NS 125cc/hr. H/H low, dc heparin, 2 U prbc E: Will replete lytes PRN N: tube feeds (low potassium feeds). with free water Code Status: Full Code - GOC/family meeting initiated and ongoing. Family meeting yesterday without consensus but favoring tracheostomy. if unable to reach decision will need tracheostomy as he is approaching 3 weeks intubated. See palliative care notes for further explanation. - Compassionate extubation versus Tracheostomy Dispo: Patient will continue to receive ICU level care poor overall prognosis for meaningful recovery Visit type - Emergency Visit Emergency Visit: Yes ED Registration Date: 02/06/18 Care time: The patient presented to the Emergency Department on the above date and was hospitalized for further evaluation of their emergent condition. - New Patient This patient is new to me today: Yes Date on this admission: 03/07/18 - Critical Care Critical Care patient: Yes Total Critical Care Time (in minutes): 38 Critical Care Statement: The care of this patient involved high complexity decision making to prevent further life threatening deterioration of the patient 's condition and/or to evaluate & treat vital organ system(s) failure or risk of failure.
[2018-03-07] MEDS: SODIUM CHLORIDE 1,000 ML IV SCH (12:57)
[2018-03-07 13:27] LABS: CALCIUM 6.4 mg/dL (8.5-10.1)
[2018-03-07 13:43] LABS: INR 1.49 (0.83-1.09); PROTHROMBIN TIME (PATIENT) 17.7 SEC (9.7-13.0)
[2018-03-07 13:46] LABS: ACTIVATED PTT 41.8 SECONDS (25.2-36.5)
[2018-03-07 14:45] LABS: ANISOCYTOSIS 2+; MACROCYTOSIS 1+; PLATELET ESTIMATE DECREASED; ROULEAU 1+; TEAR DROP CELLS 1+
--- NOTE | 2018-03-07 16:51 | PN ---
Progress Note, Physician History of Present Illness: Poorly responsive on vent, persistent afib off lopressor and heparin gtt given hypotension and decrease in Hgb. - Current Medication List Current Medications: Active Medications Acetaminophen (Tylenol -) 650 mg PO Q6H PRN PRN Reason: PAIN LEVEL 1 - 3 Last Admin: 03/02/18 03:13 Dose: 650 mg Allopurinol (Zyloprim -) 100 mg PO BID PENDING SALE TO [facility] Last Admin: 03/07/18 10:00 Dose: 100 mg Chlorhexidine Gluconate (Peridex -) 15 ml MM BID PENDING SALE TO [facility] Last Admin: 03/07/18 10:02 Dose: 15 ml Cholecalciferol (Vitamin D3 -) 1,000 unit PO DAILY [facility]END[facility] TO [facility] Last Admin: 03/07/18 10:00 Dose: 1,000 unit Diphenhydramine HCl (Benadryl Injection -) 25 mg IVPB ONCE PRN PRN Reason: DURING PLASMAPHERESIS Metronidazole (Flagyl 500mg Premixed Ivpb -) 500 mg in 100 mls @ 100 mls/hr IVPB BID PENDING [facility] TO [facility] Last Admin: 03/07/18 10:45 Dose: 100 mls/hr Levofloxacin (Levaquin 250 Mg Premixed Ivpb -) 250 mg in 50 mls @ 50 mls/hr IVPB DAILY [facility]END[facility]ALE TO [facility]; Protocol Last Admin: 03/07/18 10:01 Dose: 50 mls/hr Fentanyl 500 mcg/ Dextrose 100 mls @ 5 mls/hr IVPB TITR PENDING SALE TO [facility]; Protocol Last Titration: 03/07/18 06:00 Dose: 50 mcg/hr, 10 mls/hr Sodium Chloride (Normal Saline -) 1,000 mls @ 125 mls/hr IV ASDIR PENDING SALE TO [facility] Last Admin: 03/07/18 12:57 Dose: 125 mls/hr Lactobacillus Acidophilus (Bacid -) 1 tab PO DAILY PENDING [facility]ALE TO [facility] Last Admin: 03/07/18 10:00 Dose: 1 tab Metoprolol Tartrate (Lopressor Injection -) 5 mg IVPUSH Q8H PRN PRN Reason: TACHYCARDIA Last Admin: 03/03/18 18:44 Dose: 5 mg Metoprolol Tartrate (Lopressor -) 75 mg PO BID PEND[facility] S[facility] TO [facility] Last Admin: 03/07/18 10:19 Dose: Not Given Pantoprazole Sodium (Protonix Iv) 40 mg IVPUSH DAILY PENDING SALE TO [facility] Last Admin: 03/07/18 10:01 Dose: 40 mg Rifaximin (Xifaxan -) 550 mg PO BID PENDING SALE TO [facility] Last Admin: 03/07/18 10:00 Dose: 550 mg Thiamine HCl (Vitamin B1 -) 100 mg PO DAILY PENDING SALE TO [facility] Last Admin: 03/07/18 10:00 Dose: 100 mg - Objective Vital Signs: Vital Signs Temperature 97.2 F L 03/07/18 12:00 Pulse Rate 90 03/07/18 12:00 Respiratory Rate 18 03/07/18 13:25 Blood Pressure 87/56 L 03/07/18 12:00 O2 Sat by Pulse Oximetry (%) 100 03/07/18 09:00 Constitutional: Yes: No Distress, Calm, Thin Neck: Yes: Supple Cardiovascular: Yes: Pulse Irregular Respiratory: Yes: Intubated, Mechanically Ventilated, Rhonchi Gastrointestinal: Yes: Soft, Hypoactive Bowel Sounds Edema: No Labs: CBC, BMP 03/07/18 05:30 03/07/18 05:30 INR, PTT INR 1.49 (0.83-1.09) H 03/07/18 12:50 Fibrinogen 323.0 mg/dL (238-498) 03/07/18 12:50 - ....Imaging EKG: Report Reviewed (Tele: Rate-controlled afob) Problem List - Problems (1) Atrial fibrillation with RVR Code(s): I48.91 - UNSPECIFIED ATRIAL FIBRILLATION (2) [id number] kidney injury Code(s): N17.9 - ACUTE KIDNEY FAILURE, UNSPECIFIED; N18.9 - CHRONIC KIDNEY DISEASE, UNSPECIFIED Qualifiers: Acute renal failure type: unspecified Chronic kidney disease stage: unspecified stage Qualified Code(s): N17.9 - Acute kidney failure, unspecified ; N18.9 - Chronic kidney disease, unspecified (3) Demand ischemia Code(s): I24.8 - OTHER FORMS OF ACUTE ISCHEMIC HEART DISEASE (4) Hypercalcemia Code(s): E83.52 - HYPERCALCEMIA (5) Nonadherence to medication Code(s): Z91.14 - PATIENT'S OTHER NONCOMPLIANCE WITH MEDICATION REGIMEN (6) Paraproteinemia Code(s): D89.2 - HYPERGAMMAGLOBULINEMIA, UNSPECIFIED (7) Anticoagulant long-term use Code(s): Z79.01 - TICKET COUNTER (CURRENT) USE OF ANTICOAGULANTS (8) Chronic thromboembolic disease Code(s): I74.9 - EMBOLISM AND THROMBOSIS OF UNSPECIFIED [place] (9) Coronary artery disease Code(s): I25.10 - ATHSCL HEART DISEASE OF [place] CORONARY ARTERY W/O ANG PCTRS Qualifiers: Coronary Disease-Associated Artery/Lesion type: [place] artery [place] vs. transplanted heart: [place] heart Associated angina: without angina Qualified Code(s): I25.10 - Atherosclerotic heart disease of [place] coronary artery without angina pectoris (10) Diastolic dysfunction without heart failure Code(s): I51.9 - HEART DISEASE, UNSPECIFIED (11) HTN (hypertension) Code(s): I10 - ESSENTIAL (PRIMARY) HYPERTENSION Qualifiers: Hypertension type: essential hypertension Qualified Code(s): I10 - Essential (primary) hypertension (12) Hypertrophic cardiomyopathy Code(s): I42.2 - OTHER HYPERTROPHIC CARDIOMYOPATHY (13) Hyperlipidemia Code(s): E78.5 - HYPERLIPIDEMIA, UNSPECIFIED Qualifiers: Hyperlipidemia type: pure hypercholesterolemia Qualified Code(s): E78.00 - Pure hypercholesterolemia, unspecified; E78.0 - Pure hypercholesterolemia (14) Multiple myeloma Code(s): C90.00 - MULTIPLE MYELOMA NOT HAVING ACHIEVED REMISSION Qualifiers: Multiple myeloma remission status: not in remission Qualified Code(s): C90.00 - Multiple myeloma not having achieved remission (15) Acalculous cholecystitis Code(s): K81.9 - CHOLECYSTITIS, UNSPECIFIED Assessment/Plan R&LHc at [facility] 04/20/2016 showing nonobstructive CAD, severe LV apical hypertrophic cardiomyopathy, mildly elevated right sided pressures, Mynx deployed right COAL TRAM [employer]IVER access site. 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 Echocardiogram: 10/18/2017 Mod cLVH, severe PURVI, mod TR RVSP 50-60 mmHg, mod- severe MR Echocardiogram: 01/23/2018 Normal LV size with hyperdynamic LVEF 75%, mild BSH, normal RV size and fxn, severe LAE, mod-severe MR, mod TR 1. Acute hypoxic respiratory failure, suspected aspiration pneumonia with sepsis syndrome, remains intubated/acidosis this AM/combined 2. Toxic metabolic encephelopathy, rule out CVA, no change in status 3. Acute on CKD, suspected myeloma kidney 4. Paraproteinemia confirmed multiple myeloma 5. History of bilateral SFA occlusion post thrombectomy, most likely embolic disease related to persistent atrial fibrillation with [id number] score of 6 6. CAD with evidence of demand ischemic injury, non obstructive CAD on R[facility] coronary angiogrpahy angina pectoris 7. 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 Persistent atrial fibrillation [id number] score of 6 currently on Heparin therapy 9. HTN 10. Anemia/thrombocytopenia 11. Acalculous Cholecystitis 12. Ischemic hepatitis 13. Resolved Hypernatremia PLAN: 1. Evaluation and correction of acidosis 2. Heparin d/marciano pending hemostasis, transfuse to maintain Hg equal or > 8.0, as outlined in prior notes ideally A/C therapy to be continued indefinitely unless it is absolutely contraindicated considering his [id number] score of 6 3. Resume Lopressor as hemodynamics permit 4. Antibiotics as per the primary team 5. Ventilator management as per the ICU team 6. As outlined in prior notes overall poor prognosis (no improvement), family to decide regarding compassionate extubation versus tracheostomy, consider ethics consult
[2018-03-07] MEDS: FENTANYL INJECTION 500 MCG in DEXTROSE 5%-WATER - 90 ML IVPB SCH (18:34)
[2018-03-07 21:47] LABS: BASO % 0.5 % (0-2.0); EOS % 2.3 % (0-4.5); HEMATOCRIT 22.1 % (35.4-49); HEMOGLOBIN 7.8 GM/dL (11.7-16.9); LYMPH % 16.7 % (8-40); MCH 30.9 pg (25.7-33.7); MCHC 35.1 g/dl (32.0-35.9); MEAN CELL VOLUME 88.2 fl (80-96); MEAN PLT VOLUME 9.8 fl (7.5-11.1); MONO % 4.1 % (3.8-10.2); NEUT % 76.4 % (42.8-82.8); PLATELET COUNT 80 K/MM3 (134-434); RDW 16.3 % (11.9-15.9)
[2018-03-07 23:35] LABS: ANISOCYTOSIS 1+; PLATELET ESTIMATE DECREASED
[2018-03-08] MEDS ORDERED: fentaNYL CITRATE 250 MCG/5 ML VIAL ONE ×2 (00:50→15:52)
[2018-03-08 05:59] LABS: ALLENS TEST POSITIVE; ARTERIAL BLD GAS O2 SATURATION 97.6 % (90-98.9); ARTERIAL BLOOD GAS BASE EXCESS -7.2 meq/l (-2-2); ARTERIAL BLOOD GAS PCO2 34.5 mmHg (35-45); ARTERIAL BLOOD GAS pH 7.33 (7.35-7.45)
[2018-03-08 06:11] LABS: BASO % 0.9 % (0-2.0); HEMATOCRIT 25.4 % (35.4-49); HEMOGLOBIN 8.4 GM/dL (11.7-16.9); LYMPH % 19.6 % (8-40); MCH 29.5 pg (25.7-33.7); MCHC 33.2 g/dl (32.0-35.9); MEAN CELL VOLUME 88.7 fl (80-96); MEAN PLT VOLUME 10.4 fl (7.5-11.1); MONO % 3.4 % (3.8-10.2); NEUT % 74.1 % (42.8-82.8); PLATELET COUNT 76 K/MM3 (134-434); RBC 2.86 M/mm3 (4.00-5.60); RDW 16.6 % (11.9-15.9); WHITE BLOOD COUNT 3.6 K/mm3 (4.0-10.0)
[2018-03-08 06:49] LABS: ALK PHOS 136 U/L (45-117); ANION GAP 5 MMOL/L (8-16); BILIRUBIN,TOTAL 0.3 mg/dL (0.2-1); BLOOD UREA NITROGEN 57 mg/dL (7-18); CHLORIDE 116 mmol/L (98-107); CO2 19 mmol/L (21-32); CREATININE 1.4 mg/dL (0.55-1.3); GLUCOSE,RANDOM 98 mg/dL (74-106); MAGNESIUM 1.6 mg/dL (1.8-2.4); PHOSPHOROUS 3.6 mg/dL (2.5-4.9); POTASSIUM 4.5 mmol/L (3.5-5.1); SGOT/AST 44 U/L (15-37); SGPT/ALT 31 U/L (13-61); SODIUM 140 mmol/L (136-145); TOT PROT 7.6 g/dl (6.4-8.2)
[2018-03-08 07:02] LABS: CALCIUM 6.4 mg/dL (8.5-10.1)
[2018-03-08] MEDS: LACTATED RINGERS SOLUTION 1,000 ML/1,000 ML INFUS.BAG IV SCH (08:48)
[2018-03-08] MEDS ORDERED: MAGNESIUM OXIDE 400 MG TABLET (FP) PO ONE (09:00)
[2018-03-08] MEDS: CHOLECALCIFEROL (VITAMIN D3) 1,000 UNIT TABLET (FP) PO SCH (09:55)
[2018-03-08] MEDS: ALLOPURINOL 100 MG TABLET (FP) PO SCH ×2 (09:55→22:36)
[2018-03-08] MEDS: RIFAXIMIN 550 MG TABLET (UD) PO SCH ×2 (09:55→22:36)
[2018-03-08] MEDS: LACTOBACILLUS ACIDOPHILUS 1 TABLET PO SCH (09:55)
[2018-03-08] MEDS: THIAMINE HCL 100 MG TABLET (FP) PO SCH (09:55)
[2018-03-08] MEDS: PANTOPRAZOLE SODIUM 40 MG VIAL IVPUSH SCH ×2 (09:56→22:36)
[2018-03-08] MEDS: METOPROLOL TARTRATE 50 MG TABLET (FP) PO SCH (09:56)
[2018-03-08] MEDS: CHLORHEXIDINE GLUCONATE 0.12% 15ML CUP MM SCH ×2 (09:57→22:36)
--- NOTE | 2018-03-08 11:42 | PN ---
Progress Note, Physician History of Present Illness: Poorly responsive on vent, persistent afib off lopressor and heparin gtt given hypotension and decrease in Hgb, received 2 U pRBC. - Current Medication List Current Medications: Active Medications Acetaminophen (Tylenol -) 650 mg PO Q6H PRN PRN Reason: PAIN LEVEL 1 - 3 Last Admin: 03/02/18 03:13 Dose: 650 mg Allopurinol (Zyloprim -) 100 mg PO BID [facility] Last Admin: 03/08/18 09:55 Dose: 100 mg Chlorhexidine Gluconate (Peridex -) 15 ml MM BID [facility] Last Admin: 03/08/18 09:57 Dose: 15 ml Cholecalciferol (Vitamin D3 -) 1,000 unit PO DAILY [facility] Last Admin: 03/08/18 09:55 Dose: 1,000 unit Diphenhydramine HCl (Benadryl Injection -) 25 mg IVPB ONCE PRN PRN Reason: DURING PLASMAPHERESIS Metronidazole (Flagyl 500mg Premixed Ivpb -) 500 mg in 100 mls @ 100 mls/hr IVPB BID [facility] Last Admin: 03/08/18 09:55 Dose: 100 mls/hr Levofloxacin (Levaquin 250 Mg Premixed Ivpb -) 250 mg in 50 mls @ 50 mls/hr IVPB DAILY [facility]; Protocol Last Admin: 03/08/18 09:55 Dose: 50 mls/hr Fentanyl 500 mcg/ Dextrose 100 mls @ 5 mls/hr IVPB TITR [facility]; Protocol Last Admin: 03/07/18 18:34 Dose: 50 mcg/hr, 10 mls/hr Lactated Ringer's (Lactated Ringers Solution) 1,000 ml in 1,000 mls @ 125 mls/ hr IV ASDIR [facility] Last Admin: 03/08/18 08:48 Dose: 125 mls/hr Lactobacillus Acidophilus (Bacid -) 1 tab PO DAILY [facility] Last Admin: 03/08/18 09:55 Dose: 1 tab Metoprolol Tartrate (Lopressor Injection -) 5 mg IVPUSH Q8H PRN PRN Reason: TACHYCARDIA Last Admin: 03/03/18 18:44 Dose: 5 mg Metoprolol Tartrate (Lopressor -) 75 mg PO BID [facility] Last Admin: 03/08/18 09:56 Dose: Not Given Pantoprazole Sodium (Protonix Iv) 40 mg IVPUSH DAILY [facility] Last Admin: 03/08/18 09:56 Dose: 40 mg Rifaximin (Xifaxan -) 550 mg PO BID [facility] Last Admin: 03/08/18 09:55 Dose: 550 mg Thiamine HCl (Vitamin B1 -) 100 mg PO DAILY [facility] Last Admin: 03/08/18 09:55 Dose: 100 mg - Objective Vital Signs: Vital Signs Temperature 98.3 F 03/08/18 06:00 Pulse Rate 98 H 03/08/18 10:00 Respiratory Rate 18 03/08/18 10:45 Blood Pressure 96/64 03/08/18 10:00 O2 Sat by Pulse Oximetry (%) 100 03/08/18 10:00 Constitutional: Yes: Thin Neck: Yes: Supple Cardiovascular: Yes: Pulse Irregular Respiratory: Yes: Intubated, Mechanically Ventilated, Rhonchi Gastrointestinal: Yes: Soft, Hypoactive Bowel Sounds Edema: No Labs: CBC, BMP 03/08/18 05:30 03/08/18 05:30 INR, PTT INR 1.49 (0.83-1.09) H 03/07/18 12:50 Fibrinogen 323.0 mg/dL (238-498) 03/07/18 12:50 - ....Imaging Chest X-ray: Report Reviewed (CHF and bilateral effusions) Problem List - Problems (1) Atrial fibrillation with RVR Code(s): I48.91 - UNSPECIFIED ATRIAL FIBRILLATION (2) [id number] kidney injury Code(s): N17.9 - ACUTE KIDNEY FAILURE, UNSPECIFIED; N18.9 - CHRONIC KIDNEY DISEASE, UNSPECIFIED Qualifiers: Acute renal failure type: unspecified Chronic kidney disease stage: unspecified stage Qualified Code(s): N17.9 - Acute kidney failure, unspecified ; N18.9 - Chronic kidney disease, unspecified (3) Demand ischemia Code(s): I24.8 - OTHER FORMS OF ACUTE ISCHEMIC HEART DISEASE (4) Hypercalcemia Code(s): E83.52 - HYPERCALCEMIA (5) Nonadherence to medication Code(s): Z91.14 - PATIENT'S OTHER NONCOMPLIANCE WITH MEDICATION REGIMEN (6) Paraproteinemia Code(s): D89.2 - HYPERGAMMAGLOBULINEMIA, UNSPECIFIED (7) Anticoagulant long-term use Code(s): Z79.01 - SAUSAGE MACHINE 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 transplanted heart: [place] heart Associated angina: without angina Qualified Code(s): I25.10 - Atherosclerotic heart disease of [place] coronary artery without angina pectoris (10) Diastolic dysfunction without heart failure Code(s): I51.9 - HEART DISEASE, UNSPECIFIED (11) HTN (hypertension) Code(s): I10 - ESSENTIAL (PRIMARY) HYPERTENSION Qualifiers: Hypertension type: essential hypertension Qualified Code(s): I10 - Essential (primary) hypertension (12) Hypertrophic cardiomyopathy Code(s): I42.2 - OTHER HYPERTROPHIC CARDIOMYOPATHY (13) Hyperlipidemia Code(s): E78.5 - HYPERLIPIDEMIA, UNSPECIFIED Qualifiers: Hyperlipidemia type: pure hypercholesterolemia Qualified Code(s): E78.00 - Pure hypercholesterolemia, unspecified; E78.0 - Pure hypercholesterolemia (14) Multiple myeloma Code(s): C90.00 - MULTIPLE MYELOMA NOT HAVING ACHIEVED REMISSION Qualifiers: Multiple myeloma remission status: not in remission Qualified Code(s): C90.00 - Multiple myeloma not having achieved remission (15) Acalculous cholecystitis Code(s): K81.9 - CHOLECYSTITIS, UNSPECIFIED Assessment/Plan R&LHc at [facility] 04/20/2016 showing nonobstructive CAD, severe LV apical hypertrophic cardiomyopathy, mildly elevated right sided pressures, Mynx deployed right YACHT HAND access site. 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 Echocardiogram: 10/18/2017 Mod cLVH, severe PURVI, mod TR RVSP 50-60 mmHg, mod- severe MR Echocardiogram: 01/23/2018 Normal LV size with hyperdynamic LVEF 75%, mild BSH, normal RV size and fxn, severe LAE, mod-severe MR, mod TR 1. Acute hypoxic respiratory failure, suspected aspiration pneumonia with sepsis syndrome, remains intubated 2. Toxic metabolic encephelopathy, rule out CVA, no change in status 3. Acute on CKD, suspected myeloma kidney 4. Paraproteinemia confirmed multiple myeloma 5. History of bilateral SFA occlusion post thrombectomy, most likely embolic disease related to persistent atrial fibrillation with [id number] score of 6 6. CAD with evidence of demand ischemic injury, non obstructive CAD on [facility] coronary angiogrpahy angina pectoris 7. 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 Persistent atrial fibrillation [id number] score of 6 currently on Heparin therapy 9. HTN 10. Anemia/thrombocytopenia 11. Acalculous Cholecystitis 12. Ischemic hepatitis 13. Resolved Hypernatremia PLAN: 1. Resume Heparin gtt once Hgb stable pending tracheostomy, transfuse to maintain Hg equal or > 8.0, as outlined in prior notes ideally A/C therapy to be continued indefinitely unless it is absolutely contraindicated considering his [id number] score of 6 2. Resume Lopressor 25 bid as hemodynamics permit 3. Antibiotics as per the primary team 4. Ventilator management as per the ICU team 5. As outlined in prior notes overall poor prognosis (no improvement), family to decide regarding compassionate extubation versus tracheostomy, consider ethics consult
--- NOTE | 2018-03-08 11:46 | PN ---
Physical Exam: SUBJECTIVE: Patient seen and examined in the ICU. Remains intubated, poorly responsive but now on fentanyl gtt. opens eyes to voice. No gross change in overall mental status. No pressors. Off heparin gtt, s/p 2 U prbcs. blood noted in rectal tube. GOC discussion ongoing, favoring tracheostomy, but ideally would like to hear back from Swathi (daughter) who has not been returning our phone calls. The other 3 children are in favor of trache. OBJECTIVE: Vital Signs Period Temp Pulse Resp BP Sys/Ariza Pulse Ox Last 24 Hr 97.2 F-98.8 F 89-106 18-20 81-109/56-95 100-100 GENERAL: Remains intubated, poorly responsive off sedation but opens eyes to voice. HEAD: EYES: sclera anicteric. NCAT PERRL ENT: Ears normal, nares patent, dry mucous membranes NECK: Trachea midline. LUNGS: bilateral diffuse rhonchi HEART: reg rate and irregular rhythm. ABDOMEN: Soft, nondistended NT EXTREMITIES: 2+ pulses, warm, well-perfused, no edema, scattered ulcers. NEUROLOGICAL: difficult to assess secondary to clinical condition. gag reflex does not appear to be present. opens eyes to voice. corneal reflex+, +gag reflex SKIN: Warm, dry, normal turgor, scattered ulcers on the legs Laboratory Results - last 24 hr 03/07/18 03/07/18 03/07/18 05:30 05:30 08:30 WBC RBC Hgb Hct MCV MCH MCHC RDW Plt Count MPV Absolute Neuts (auto) Total Counted Neutrophils % Neutrophils % (Manual) 72.3 Band Neutrophils % 2.0 Lymphocytes % Lymphocytes % (Manual) 15.8 Monocytes % Monocytes % (Manual) 2 L Eosinophils % Eosinophils % (Manual) 4.9 H D Basophils % Basophils % (Manual) 0.0 Myelocytes % (Man) 0 Promyelocytes % (Man) 0 Blast Cells % (Manual) 0 D Nucleated RBC % Metamyelocytes 0 Hypochromia 0 Platelet Estimate Decreased Platelet Comment Present Polychromasia 2+ Poikilocytosis 0 Anisocytosis 2+ Microcytosis 2+ Macrocytosis 1+ Tear Drop Cells 1+ Rouleaux 1+ PT with INR INR PTT (Actin FS) Fibrinogen Puncture Site ABG pH ABG pCO2 at Pt Temp ABG pO2 at Pt Temp ABG HCO3 ABG O2 Sat (Measured) ABG O2 Content ABG Base Excess Vinny Test O2 Delivery Device Oxygen Flow Rate Vent Mode Vent Rate Mechanical Rate PEEP Pressure Support Vent Sodium Potassium Chloride Carbon Dioxide Anion Gap BUN Creatinine Creat Clearance w eGFR Random Glucose Calcium 6.4 L* Phosphorus Magnesium Total Bilirubin AST ALT Alkaline Phosphatase Ammonia Total Protein Albumin Stool Occult Blood Blood Type B POSITIVE Antibody Screen Negative Crossmatch See Detail 03/07/18 03/07/18 03/07/18 12:50 12:50 18:00 WBC RBC Hgb Hct MCV MCH MCHC RDW Plt Count MPV Absolute Neuts (auto) Total Counted Neutrophils % Neutrophils % (Manual) Band Neutrophils % Lymphocytes % Lymphocytes % (Manual) Monocytes % Monocytes % (Manual) Eosinophils % Eosinophils % (Manual) Basophils % Basophils % (Manual) Myelocytes % (Man) Promyelocytes % (Man) Blast Cells % (Manual) Nucleated RBC % Metamyelocytes Hypochromia Platelet Estimate Platelet Comment Polychromasia Poikilocytosis Anisocytosis Microcytosis Macrocytosis Tear Drop Cells Rouleaux PT with INR 17.70 H INR 1.49 H PTT (Actin FS) 41.8 H Fibrinogen 323.0 Puncture Site ABG pH ABG pCO2 at Pt Temp ABG pO2 at Pt Temp ABG HCO3 ABG O2 Sat (Measured) ABG O2 Content ABG Base Excess Vinny Test O2 Delivery Device Oxygen Flow Rate Vent Mode Vent Rate Mechanical Rate PEEP Pressure Support Vent Sodium Potassium Chloride Carbon Dioxide Anion Gap BUN Creatinine Creat Clearance w eGFR Random Glucose Calcium Phosphorus Magnesium Total Bilirubin AST ALT Alkaline Phosphatase Ammonia Total Protein Albumin Stool Occult Blood Negative Blood Type Antibody Screen Crossmatch 03/07/18 03/08/18 03/08/18 21:00 05:30 05:30 WBC 4.0 3.6 L RBC 2.50 L 2.86 L Hgb 7.8 L 8.4 L Hct 22.1 L 25.4 L MCV 88.2 88.7 MCH 30.9 29.5 MCHC 35.1 33.2 RDW 16.3 H 16.6 H Plt Count 80 L 76 L MPV 9.8 10.4 Absolute Neuts (auto) 3.1 2.7 Total Counted 100 Neutrophils % 76.4 74.1 Neutrophils % (Manual) 67.0 Band Neutrophils % 5.0 Lymphocytes % 16.7 19.6 Lymphocytes % (Manual) 16.0 Monocytes % 4.1 3.4 L Monocytes % (Manual) 10 D Eosinophils % 2.3 2.0 Eosinophils % (Manual) 2.0 Basophils % 0.5 0.9 Basophils % (Manual) Myelocytes % (Man) Promyelocytes % (Man) Blast Cells % (Manual) Nucleated RBC % 5 H 4 H Metamyelocytes Hypochromia 1+ Platelet Estimate Decreased Platelet Comment No clumping noted Polychromasia 1+ Poikilocytosis Anisocytosis 1+ Microcytosis 1+ Macrocytosis Tear Drop Cells Rouleaux PT with INR INR PTT (Actin FS) Fibrinogen Puncture Site ABG pH ABG pCO2 at Pt Temp ABG pO2 at Pt Temp ABG HCO3 ABG O2 Sat (Measured) ABG O2 Content ABG Base Excess Vinny Test O2 Delivery Device Oxygen Flow Rate Vent Mode Vent Rate Mechanical Rate PEEP Pressure Support Vent Sodium 140 Potassium 4.5 Chloride 116 H Carbon Dioxide 19 L Anion Gap 5 L BUN 57 H Creatinine 1.4 H Creat Clearance w eGFR 48.89 Random Glucose 98 Calcium 6.4 L* Phosphorus 3.6 Magnesium 1.6 L Total Bilirubin 0.3 AST 44 H ALT 31 Alkaline Phosphatase 136 H Ammonia Total Protein 7.6 Albumin 1.0 L Stool Occult Blood Blood Type Antibody Screen Crossmatch 03/08/18 03/08/18 05:30 06:00 WBC RBC Hgb Hct MCV MCH MCHC RDW Plt Count MPV Absolute Neuts (auto) Total Counted Neutrophils % Neutrophils % (Manual) Band Neutrophils % Lymphocytes % Lymphocytes % (Manual) Monocytes % Monocytes % (Manual) Eosinophils % Eosinophils % (Manual) Basophils % Basophils % (Manual) Myelocytes % (Man) Promyelocytes % (Man) Blast Cells % (Manual) Nucleated RBC % Metamyelocytes Hypochromia Platelet Estimate Platelet Comment Polychromasia Poikilocytosis Anisocytosis Microcytosis Macrocytosis Tear Drop Cells Rouleaux PT with INR INR PTT (Actin FS) Fibrinogen Puncture Site Right radial ABG pH 7.33 L ABG pCO2 at Pt Temp 34.5 L ABG pO2 at Pt Temp 111.0 H ABG HCO3 17.6 L ABG O2 Sat (Measured) 97.6 ABG O2 Content 11.9 L ABG Base Excess -7.2 L Vinny Test Positive O2 Delivery Device Mech vent Oxygen Flow Rate 40% Vent Mode Ac/ prvc Vent Rate 18 Mechanical Rate Yes PEEP 5.0 Pressure Support Vent 500 Sodium Potassium Chloride Carbon Dioxide Anion Gap BUN Creatinine Creat Clearance w eGFR Random Glucose Calcium Phosphorus Magnesium Total Bilirubin AST ALT Alkaline Phosphatase Ammonia 49.00 H Total Protein Albumin Stool Occult Blood Blood Type Antibody Screen Crossmatch Active Medications Generic Name Dose Route Start Last Admin Trade Name Freq PRN Reason Stop Dose Admin Acetaminophen 650 mg 02/17/18 14:09 03/02/18 03:13 Tylenol - PO 650 mg Q6H PRN Administration PAIN LEVEL 1 - 3 Allopurinol 100 mg 02/16/18 10:00 03/08/18 09:55 Zyloprim - PO 100 mg BID [facility] Administration Chlorhexidine Gluconate 15 ml 02/17/18 23:45 03/08/18 09:57 Peridex - MM 15 ml BID [facility] Administration Cholecalciferol 1,000 unit 02/25/18 10:00 03/08/18 09:55 Vitamin D3 - PO 1,000 unit DAILY [facility] Administration Diphenhydramine HCl 25 mg 02/16/18 12:00 Benadryl Injection - IVPB ONCE PRN DURING PLASMAPHERESIS Metronidazole 500 mg in 100 mls @ 100 mls/hr 02/24/18 14:30 03/08/18 09:55 Flagyl 500mg Premixed Ivpb - IVPB 100 mls/hr BID [facility] Administration Levofloxacin 250 mg in 50 mls @ 50 mls/hr 02/26/18 12:45 03/08/18 09:55 Levaquin 250 Mg Premixed Ivpb - IVPB 50 mls/hr DAILY [facility] Administration Protocol Fentanyl 500 mcg/ Dextrose 100 mls @ 5 mls/hr 03/04/18 19:00 03/07/18 18:34 IVPB 50 mcg/hr TITR [facility] 10 mls/hr Administration Protocol 25 MCG/HR Lactated Ringer's 1,000 ml in 1,000 mls @ 125 mls/hr 03/08/18 08:30 03/08/18 08:48 Lactated Ringers Solution IV 125 mls/hr ASDIR [facility] Administration Lactobacillus Acidophilus 1 tab 03/04/18 10:00 03/08/18 09:55 Bacid - PO 1 tab DAILY [facility] Administration Metoprolol Tartrate 5 mg 02/16/18 13:04 03/03/18 18:44 Lopressor Injection - IVPUSH 5 mg Q8H PRN Administration TACHYCARDIA Metoprolol Tartrate 75 mg 02/23/18 08:30 03/08/18 09:56 Lopressor - PO Not Given BID [facility] Pantoprazole Sodium 40 mg 02/14/18 12:00 03/08/18 09:56 Protonix Iv IVPUSH 40 mg DAILY [facility] Administration Rifaximin 550 mg 02/22/18 22:00 03/08/18 09:55 Xifaxan - PO 550 mg BID [facility] Administration Thiamine HCl 100 mg 02/06/18 22:12 03/08/18 09:55 Vitamin B1 - PO 100 mg DAILY [facility] Administration ASSESSMENT/PLAN: 77 yo m PMH of A-Fib, Acute on chronic kidney injury, CAD w stents, hypercalcemia, medication non-adherence, paraproteinemia, thromboembolic disease , diastolic heart dysfunction without failure, HTN, HLD, hypertrophic cardiomyopathy is here after a rapid response. He was on the floors when it was noticed that he has respiratory insufficiency and was desaturating, requiring ICU monitoring. GOC discussion ongoing, favoring tracheostomy, but ideally would like to hear back from Swathi (daughter) who has not been returning our phone calls. The other 3 children are in favor of trache. GI: GIB? Off heparin gtt, s/p 2 U prbcs. blood noted in rectal tube. GI consult metabolic encephalopathy -ammonia downtrending w/ rifaximin, s/p lactulose -LFTs elevated but downtrending. transamintitis most likely secondary to ischemic hepatits which is multifactorial including sepsis, episodes of hypotension and hyperviscosity syndrome. acalculous cholecystitis? US shows thickened gallbladder wall, pericholecystic fluid, suspicious for acalculous cholecystitis. There was also mild dilatation of the CBD but that might be normal for age. -Spoke w/ IR, who feel image does not represent acalculous cholecystitis and does not require any IR drainage ID: No fevers recorded. - Rhonchi heard on Lung auscultation -RLL pneumonia bcx 02/26/18 neg off of ceftazidime Vancomycin Redosed 02/26/18 C diff neg 03/04/18 - c/w levaquin/flagyl. - ID on board - c/w rifaximin for elevated ammonia level Cardio: Afib -[id number] score of 6 - Lopressor 75 mg BID PO -IV metoprolol 5 mg PRN - diastolic dysfunction + hypertrophic cardiomyopathy - CAD with multiple stents - Cardio consulted and on board. off Xarelto 15 qd (renal dosing) while on heparin gtt. transfuse to maintain Hgb >8.0 s/p 1 u prbc 02/27/18 and 1 u prbc 03/01/18, Heparin with caution considering the dropping Hg, transfuse to maintain Hg equal or > 8.0, as outlined in prior notes ideally A/C therapy to be continued indefinitely unless it is absolutely contraindicated considering his [id number] score of 6 - Sporadically goes in and out of V-Tach - Can give amio if v-tach is sustained and persistent. -Off heparin gtt, s/p 2 U prbcs w/ appropriate response. blood noted in rectal tube. send FOBT Pulm: - Intubated -surgery consult for trache - Patient has b/l pleural effusions. - No pneumothorax - b/l diffuse rhonchi - infiltrate on CXR: Abx- Substituting levaquin for ceftazidime Vancomycin Redosed 02/26/18 - c/w levaquin/flagyl. Renal: - Acute on Chronic kidney injury MELITA ATN vs. 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 tubular injury, US showed no stones or obstruction, UA w/o protein but UPCR ~0.5 indicating non- albumin proteinuria) - Renal consulted and on board. Hyperkalemia (r/o tumor lysis) serum K is improved, s/p bicarb gtt Neuro: - Patient is not alert or oriented. Remains intubated, poorly responsive but now on fentanyl gtt. opens eyes to voice - Head CT showed no acute pathology - Neuro consulted and on board. (Dr. Kuo + Dr. mejia) -ammonia stable in 60s w/ rifaximin, lactulose dcd Heme/Onc: - monitor H/H - Will transfuse to keep hb > 8 - Patient not receiving plasmapharesis today. - Paraproteinemia - Patient fulfills new criteria for multiple myeloma with free kappa/ free lambda light chain ratio of 432 (>100 is diagnostic of myeloma) - [place]/Lambda ratio > 100 consistent with Multiple myeloma - M spike elevated elevated at 6.8 previously 4.7 -steroids being held at this time s/p 1 u prbc 02/27/18 and 1 u prbc 03/01/18, Heparin with caution considering the dropping Hg, transfuse to maintain Hg equal or > 8.0, as outlined in prior notes ideally A/C therapy to be continued indefinitely unless it is absolutely contraindicated considering his [id number] score of 6 -Hypotensive this AM and H/H low (6.7) without obvious source of bleeding. will give 2 U prbcs and dc heparin -platelets are low and downtrending. -fibrinogen nl -f/u HIT AB -Off heparin gtt, s/p 2 U prbcs w/ appropriate response. blood noted in rectal tube. send FOBT Endo: - Parathyroid hormone WNL - PTH-borderline low appropriate given hypercalcemia, PTHrP low Prophylaxis: -Off heparin gtt, s/p 2 U prbcs w/ appropriate response. blood noted in rectal tube. send FOBT transfuse to maintain Hg equal or > 8.0, as outlined in prior notes ideally A/C therapy to be continued indefinitely unless it is absolutely contraindicated considering his [id number] score of 6 - Protonix F/E/N: F: LR 125cc E: Will replete lytes PRN N: tube feeds (low potassium feeds). with free water Code Status: Full Code -GOC discussion ongoing, favoring tracheostomy, but ideally would like to hear back from Swathi (daughter) who has not been returning our phone calls. The other 3 children are in favor of trache. if unable to reach decision will need tracheostomy as he is approaching 3 weeks intubated. See palliative care notes for further explanation. - Compassionate extubation versus Tracheostomy Dispo: Patient will continue to receive ICU level care poor overall prognosis for meaningful recovery Visit type - Emergency Visit Emergency Visit: Yes ED Registration Date: 02/06/18 Care time: The patient presented to the Emergency Department on the above date and was hospitalized for further evaluation of their emergent condition. - New Patient This patient is new to me today: Yes Date on this admission: 03/08/18 - Critical Care Critical Care patient: Yes Total Critical Care Time (in minutes): 38 Critical Care Statement: The care of this patient involved high complexity decision making to prevent further life threatening deterioration of the patient 's condition and/or to evaluate & treat vital organ system(s) failure or risk of failure.
--- NOTE | 2018-03-08 12:02 | PN ---
Progress Note, Physician Chief Complaint: AWAITING TRACHEOSTOMY ICU TEAM HAS BEEN CALLING FAMILY FOR CONSENT 3/4 NEXT OF KINS AGREE ON HAVING TRACHEOSTOMY. - Current Medication List Current Medications: Active Medications Acetaminophen (Tylenol -) 650 mg PO Q6H PRN PRN Reason: PAIN LEVEL 1 - 3 Last Admin: 03/02/18 03:13 Dose: 650 mg Allopurinol (Zyloprim -) 100 mg PO BID [facility] Last Admin: 03/08/18 09:55 Dose: 100 mg Chlorhexidine Gluconate (Peridex -) 15 ml MM BID [facility] Last Admin: 03/08/18 09:57 Dose: 15 ml Cholecalciferol (Vitamin D3 -) 1,000 unit PO DAILY [facility] Last Admin: 03/08/18 09:55 Dose: 1,000 unit Diphenhydramine HCl (Benadryl Injection -) 25 mg IVPB ONCE PRN PRN Reason: DURING PLASMAPHERESIS Metronidazole (Flagyl 500mg Premixed Ivpb -) 500 mg in 100 mls @ 100 mls/hr IVPB BID [facility] Last Admin: 03/08/18 09:55 Dose: 100 mls/hr Levofloxacin (Levaquin 250 Mg Premixed Ivpb -) 250 mg in 50 mls @ 50 mls/hr IVPB DAILY [facility]; Protocol Last Admin: 03/08/18 09:55 Dose: 50 mls/hr Fentanyl 500 mcg/ Dextrose 100 mls @ 5 mls/hr IVPB TITR [facility]; Protocol Last Admin: 03/07/18 18:34 Dose: 50 mcg/hr, 10 mls/hr Lactated Ringer's (Lactated Ringers Solution) 1,000 ml in 1,000 mls @ 125 mls/ hr IV ASDIR [facility] Last Admin: 03/08/18 08:48 Dose: 125 mls/hr Lactobacillus Acidophilus (Bacid -) 1 tab PO DAILY [facility] Last Admin: 03/08/18 09:55 Dose: 1 tab Metoprolol Tartrate (Lopressor Injection -) 5 mg IVPUSH Q8H PRN PRN Reason: TACHYCARDIA Last Admin: 03/03/18 18:44 Dose: 5 mg Metoprolol Tartrate (Lopressor -) 25 mg NGT BID [facility] Pantoprazole Sodium (Protonix Iv) 40 mg IVPUSH BID [facility] Rifaximin (Xifaxan -) 550 mg PO BID [facility] Last Admin: 03/08/18 09:55 Dose: 550 mg Thiamine HCl (Vitamin B1 -) 100 mg PO DAILY [facility] Last Admin: 03/08/18 09:55 Dose: 100 mg - Objective Vital Signs: Vital Signs Temperature 98.3 F 03/08/18 06:00 Pulse Rate 98 H 03/08/18 10:00 Respiratory Rate 18 03/08/18 10:45 Blood Pressure 96/64 03/08/18 10:00 O2 Sat by Pulse Oximetry (%) 100 03/08/18 10:00 Constitutional: Yes: Other Cardiovascular: Yes: Pulse Irregular Respiratory: Yes: Diminished, Mechanically Ventilated Gastrointestinal: Yes: Soft ...Rectal Exam: Yes: Other (RECTAL TUBE) Genitourinary: Yes: Brenner Present Musculoskeletal: Yes: Muscle Weakness Extremities: Yes: Other Edema: Yes Neurological: Yes: Unresponsive Labs: CBC, BMP 03/08/18 05:30 03/08/18 05:30 INR, PTT INR 1.49 (0.83-1.09) H 03/07/18 12:50 Fibrinogen 323.0 mg/dL (238-498) 03/07/18 12:50 Problem List - Problems (1) MELITA (acute kidney injury) Code(s): N17.9 - ACUTE KIDNEY FAILURE, UNSPECIFIED (2) Atrial fibrillation with RVR Code(s): I48.91 - UNSPECIFIED ATRIAL FIBRILLATION (3) Hyperlipidemia Code(s): E78.5 - HYPERLIPIDEMIA, UNSPECIFIED Qualifiers: Hyperlipidemia type: pure hypercholesterolemia Qualified Code(s): E78.00 - Pure hypercholesterolemia, unspecified; E78.0 - Pure hypercholesterolemia (4) Hypothermia Code(s): T68.XXXA - HYPOTHERMIA, INITIAL ENCOUNTER Qualifiers: Encounter type: initial encounter Qualified Code(s): T68.XXXA - Hypothermia , initial encounter (5) [id number] kidney injury Code(s): N17.9 - ACUTE KIDNEY FAILURE, UNSPECIFIED; N18.9 - CHRONIC KIDNEY DISEASE, UNSPECIFIED Qualifiers: Acute renal failure type: unspecified Chronic kidney disease stage: unspecified stage Qualified Code(s): N17.9 - Acute kidney failure, unspecified ; N18.9 - Chronic kidney disease, unspecified (6) Generalized weakness Code(s): R53.1 - WEAKNESS (7) History of ETOH abuse Code(s): Z87.898 - PERSONAL HISTORY OF OTHER SPECIFIED CONDITIONS (8) Hypercalcemia Code(s): E83.52 - HYPERCALCEMIA (9) Hypertrophic cardiomyopathy Code(s): I42.2 - OTHER HYPERTROPHIC CARDIOMYOPATHY (10) Toxic metabolic encephalopathy Code(s): G92 - TOXIC ENCEPHALOPATHY (11) Sepsis Code(s): A41.9 - SEPSIS, UNSPECIFIED ORGANISM (12) Respiratory failure Code(s): J96.90 - RESPIRATORY FAILURE, UNSP, UNSP W HYPOXIA OR HYPERCAPNIA Assessment/Plan NOW VENT DEPENDENT INTUBATED FOR MANY DAYS WILL NEED TRACHEOSTOMY. AWAITING FAMILY CONSENT IV ABX CONTINUE PER ID. 02 SUPPORT 40% O2 UNABLE TO WEAN OFF VENT. CARDIO F/U ON HEPARIN IV FOR AC. MONITOR LABS, FREQUENT TURNING AND OFF LOADING TO PREVENT SKIN BREAK DOWN NGT FEEDS, AMINO ACIDS FOR PROTEIN AND PREVENT SKIN ULCERS. ADVANCED DIRECTIVES UNCLEAR, AWAIT FAMILY DECISION AT THIS PROGNOSIS IS POOR FOR A FULL MEANINGFUL RECOVERY LABS DAILY MONITOR ELECTROLYTES. NEURO EVAL MVI/THIAMINE CONTINUE AGREE WITH PULMONARY TO DECREASE SEDATION TO EVALUATE MENTAL STATUS
--- NOTE | 2018-03-08 12:16 | PN ---
Teaching Attending Note Name of Resident: Bola Griffith ATTENDING PHYSICIAN STATEMENT I saw and evaluated the patient. I reviewed the resident's note and discussed the case with the resident. I agree with the resident's findings and plan as documented. SUBJECTIVE: Pt seen and examined in the ICU. Remains intubated, sedated, poorly responsive. Family decision to proceed with tracheostomy, daughter Swathi not answering or returning calls. Transfused 2 units PRBC with appropriate response. OBJECTIVE: Vital Signs Period Temp Pulse Resp BP Sys/Ariza Pulse Ox Last 24 Hr 97.4 F-98.8 F 89-106 18-20 81-109/60-95 100-100 Intake & Output 03/05/18 03/06/18 03/07/18 03/08/18 23:59 23:59 23:59 23:59 Intake Total 3308 3894 5737 1720 Output Total 800 1700 1350 500 Balance 2508 2194 4387 1220 Weight 89.3 kg 90.038 kg 92.986 kg 97.069 kg Gen: intubated, poorly responsive Heart: RRR Lung: scattered rhonchi Abd: soft, nontender Ext: + edema CBC, BMP 03/08/18 05:30 03/08/18 05:30 Active Medications Acetaminophen (Tylenol -) 650 mg PO Q6H PRN PRN Reason: PAIN LEVEL 1 - 3 Last Admin: 03/02/18 03:13 Dose: 650 mg Allopurinol (Zyloprim -) 100 mg PO BID [facility] Last Admin: 03/08/18 09:55 Dose: 100 mg Chlorhexidine Gluconate (Peridex -) 15 ml MM BID [facility] Last Admin: 03/08/18 09:57 Dose: 15 ml Cholecalciferol (Vitamin D3 -) 1,000 unit PO DAILY [facility] Last Admin: 03/08/18 09:55 Dose: 1,000 unit Diphenhydramine HCl (Benadryl Injection -) 25 mg IVPB ONCE PRN PRN Reason: DURING PLASMAPHERESIS Metronidazole (Flagyl 500mg Premixed Ivpb -) 500 mg in 100 mls @ 100 mls/hr IVPB BID [facility] Last Admin: 03/08/18 09:55 Dose: 100 mls/hr Levofloxacin (Levaquin 250 Mg Premixed Ivpb -) 250 mg in 50 mls @ 50 mls/hr IVPB DAILY [facility]; Protocol Last Admin: 03/08/18 09:55 Dose: 50 mls/hr Fentanyl 500 mcg/ Dextrose 100 mls @ 5 mls/hr IVPB TITR [facility]; Protocol Last Admin: 03/07/18 18:34 Dose: 50 mcg/hr, 10 mls/hr Lactated Ringer's (Lactated Ringers Solution) 1,000 ml in 1,000 mls @ 125 mls/ hr IV ASDIR [facility] Last Admin: 03/08/18 08:48 Dose: 125 mls/hr Lactobacillus Acidophilus (Bacid -) 1 tab PO DAILY [facility] Last Admin: 03/08/18 09:55 Dose: 1 tab Metoprolol Tartrate (Lopressor Injection -) 5 mg IVPUSH Q8H PRN PRN Reason: TACHYCARDIA Last Admin: 03/03/18 18:44 Dose: 5 mg Metoprolol Tartrate (Lopressor -) 25 mg NGT BID [facility] Pantoprazole Sodium (Protonix Iv) 40 mg IVPUSH BID [facility] Rifaximin (Xifaxan -) 550 mg PO BID [facility] Last Admin: 03/08/18 09:55 Dose: 550 mg Thiamine HCl (Vitamin B1 -) 100 mg PO DAILY [facility] Last Admin: 03/08/18 09:55 Dose: 100 mg ASSESSMENT AND PLAN: Acute Hypoxic Respiratory Failure Altered Mental Status Metabolic Encephalopathy Pneumonia Acalculous Cholecystitis Multiple Myeloma Acute on Chronic Renal Failure Metabolic Acidosis LV Diastolic Dysfunction Atrial Fibrillation CAD +Troponins likely Demand Ischemia PAD Hyperlipidemia HTN Anemia - monitor H/H - if H/H continues to drop, will need CT A/P - send stool occult blood - continue antibiotics - monitor urine output, creatinine - rate control - minimize sedation to assess mental status - DVT/GI prophylaxis - continue discussions regarding goals of care - consult surgery for tracheostomy - continue ICU monitoring - poor overall prognosis for meaningful recovery critical care time spent in reviewing chart, evaluating patient and formulating plan 35 min
--- NOTE | 2018-03-08 15:44 | PN ---
Progress Note (short form) - Note Progress Note: Renal follow up for Hypercalcemia/MELITA Pt seen and examined in the ICU on vent, no change in clinical status on tube feeds FIO2 40% Vital Signs Temperature 98.3 F 03/08/18 12:00 Pulse Rate 96 H 03/08/18 14:00 Respiratory Rate 18 03/08/18 13:05 Blood Pressure 98/61 03/08/18 14:00 O2 Sat by Pulse Oximetry (%) 100 03/08/18 10:00 Intake & Output 03/05/18 03/06/18 03/07/18 03/08/18 23:59 23:59 23:59 23:59 Intake Total 3308 3894 5737 1720 Output Total 800 1700 1350 1100 Balance 2508 2194 4387 620 Weight 89.3 kg 90.038 kg 92.986 kg 97.069 kg NAD on vent via ET Tube trace edema in sacrum CBC, BMP 03/08/18 05:30 03/08/18 05:30 Current Medications Acetaminophen (Tylenol -) 650 mg PO Q6H PRN PRN Reason: PAIN LEVEL 1 - 3 Last Admin: 03/02/18 03:13 Dose: 650 mg Allopurinol (Zyloprim -) 100 mg PO BID [facility] Last Admin: 03/08/18 09:55 Dose: 100 mg Chlorhexidine Gluconate (Peridex -) 15 ml MM BID [facility] Last Admin: 03/08/18 09:57 Dose: 15 ml Cholecalciferol (Vitamin D3 -) 1,000 unit PO DAILY [facility] Last Admin: 03/08/18 09:55 Dose: 1,000 unit Diphenhydramine HCl (Benadryl Injection -) 25 mg IVPB ONCE PRN PRN Reason: DURING PLASMAPHERESIS Metronidazole (Flagyl 500mg Premixed Ivpb -) 500 mg in 100 mls @ 100 mls/hr IVPB BID [facility] Last Admin: 03/08/18 09:55 Dose: 100 mls/hr Levofloxacin (Levaquin 250 Mg Premixed Ivpb -) 250 mg in 50 mls @ 50 mls/hr IVPB DAILY [facility]; Protocol Last Admin: 03/08/18 09:55 Dose: 50 mls/hr Fentanyl 500 mcg/ Dextrose 100 mls @ 5 mls/hr IVPB TITR [facility]; Protocol Last Admin: 03/07/18 18:34 Dose: 50 mcg/hr, 10 mls/hr Lactated Ringer's (Lactated Ringers Solution) 1,000 ml in 1,000 mls @ 125 mls/ hr IV ASDIR [facility] Last Admin: 03/08/18 08:48 Dose: 125 mls/hr Lactobacillus Acidophilus (Bacid -) 1 tab PO DAILY [facility] Last Admin: 03/08/18 09:55 Dose: 1 tab Metoprolol Tartrate (Lopressor Injection -) 5 mg IVPUSH Q8H PRN PRN Reason: TACHYCARDIA Last Admin: 03/03/18 18:44 Dose: 5 mg Metoprolol Tartrate (Lopressor -) 25 mg NGT BID [facility] Pantoprazole Sodium (Protonix Iv) 40 mg IVPUSH BID [facility] Rifaximin (Xifaxan -) 550 mg PO BID [facility] Last Admin: 03/08/18 09:55 Dose: 550 mg Thiamine HCl (Vitamin B1 -) 100 mg PO DAILY [facility] Last Admin: 03/08/18 09:55 Dose: 100 mg 77 year old gentleman with hx of CKD, Afib on A/C, CAD, CKD, Hypertension, Hyperlipidemia, PVD who presented with AMS/Confusion and found to have MELITA. #MELITA ATN vs. 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 tubular injury, US showed no stones or obstruction, UA w/o protein but UPCR ~0.5 indicating non- albumin proteinuria) #AMS #Newly diagnosed multiple myloma #Anemia #Hypercalcemia of Malignancy (PTH is low) #Hyperdense lesion on US of the kidney #Normal anion gap metabolic acidosis #Hyperkalemia (now resolved) Renal function stable no indication for [employer] continue supportive care continue tube feeds monitor for edema Mack Miller DO
[2018-03-08] MEDS: METOPROLOL TARTRATE 5 MG/5 ML VIAL IVPUSH PRN (16:04)
[2018-03-08] MEDS: FENTANYL INJECTION 500 MCG in DEXTROSE 5%-WATER - 90 ML IVPB SCH (16:05)
[2018-03-08 20:18] LABS: BASO % 0.4 % (0-2.0); EOS % 2.4 % (0-4.5); HEMATOCRIT 25.1 % (35.4-49); HEMOGLOBIN 8.8 GM/dL (11.7-16.9); LYMPH % 16.3 % (8-40); MCHC 35.2 g/dl (32.0-35.9); MEAN CELL VOLUME 88.1 fl (80-96); MEAN PLT VOLUME 10.4 fl (7.5-11.1); MONO % 3.2 % (3.8-10.2); NEUT % 77.7 % (42.8-82.8); PLATELET COUNT 100 K/MM3 (134-434); RBC 2.85 M/mm3 (4.00-5.60); RDW 16.5 % (11.9-15.9); WHITE BLOOD COUNT 4.2 K/mm3 (4.0-10.0)
[2018-03-08] MEDS: METOPROLOL TARTRATE 25 MG TABLET (FP) NGT SCH (22:36)
[2018-03-08 23:00] LABS: ANISOCYTOSIS 1+; PLATELET ESTIMATE DECREASED
[2018-03-09] MEDS ORDERED: fentaNYL CITRATE 250 MCG/5 ML VIAL ONE ×2 (01:35→14:19)
[2018-03-09] MEDS: METOPROLOL TARTRATE 5 MG/5 ML VIAL IVPUSH PRN (04:19)
[2018-03-09] MEDS: FENTANYL INJECTION 500 MCG in DEXTROSE 5%-WATER - 90 ML IVPB SCH ×3 (06:23→21:24)
[2018-03-09 06:33] LABS: BASO % 0.5 % (0-2.0); EOS % 1.8 % (0-4.5); HEMATOCRIT 25.7 % (35.4-49); HEMOGLOBIN 8.4 GM/dL (11.7-16.9); LYMPH % 16.3 % (8-40); MCH 29.2 pg (25.7-33.7); MCHC 32.6 g/dl (32.0-35.9); MEAN CELL VOLUME 89.6 fl (80-96); MEAN PLT VOLUME 10.3 fl (7.5-11.1); MONO % 3.9 % (3.8-10.2); NEUT % 77.5 % (42.8-82.8); PLATELET COUNT 91 K/MM3 (134-434); RBC 2.87 M/mm3 (4.00-5.60); RDW 16.1 % (11.9-15.9); WHITE BLOOD COUNT 3.6 K/mm3 (4.0-10.0)
[2018-03-09 07:00] LABS: ARTERIAL BLD GAS O2 SATURATION 96.1 % (90-98.9); ARTERIAL BLOOD GAS BASE EXCESS -5.5 meq/l (-2-2); ARTERIAL BLOOD GAS PCO2 35.6 mmHg (35-45); ARTERIAL BLOOD GAS PO2 86.9 mmHg (70-100); ARTERIAL BLOOD GAS pH 7.35 (7.35-7.45)
[2018-03-09 07:13] LABS: ALLENS TEST POSITIVE
[2018-03-09 07:31] LABS: ALK PHOS 152 U/L (45-117); ANION GAP 5 MMOL/L (8-16); BILIRUBIN,TOTAL 0.5 mg/dL (0.2-1); BLOOD UREA NITROGEN 48 mg/dL (7-18); CHLORIDE 116 mmol/L (98-107); CO2 20 mmol/L (21-32); CREATININE 1.3 mg/dL (0.55-1.3); GLUCOSE,RANDOM 73 mg/dL (74-106); MAGNESIUM 1.7 mg/dL (1.8-2.4); PHOSPHOROUS 3.6 mg/dL (2.5-4.9); POTASSIUM 4.5 mmol/L (3.5-5.1); SGOT/AST 45 U/L (15-37); SGPT/ALT 32 U/L (13-61); SODIUM 141 mmol/L (136-145); TOT PROT 8.2 g/dl (6.4-8.2)
[2018-03-09 07:35] LABS: CALCIUM 6.6 mg/dL (8.5-10.1)
[2018-03-09] MEDS ORDERED: MAGNESIUM OXIDE 400 MG TABLET (FP) PO ONE (08:30)
--- NOTE | 2018-03-09 10:29 | PN ---
Progress Note, Physician History of Present Illness: Poorly responsive on vent, persistent afib off lopressor and heparin gtt given hypotension and decrease in Hgb, received 2 U pRBC Hgb stable. - Current Medication List Current Medications: Active Medications Acetaminophen (Tylenol -) 650 mg PO Q6H PRN PRN Reason: PAIN LEVEL 1 - 3 Last Admin: 03/02/18 03:13 Dose: 650 mg Allopurinol (Zyloprim -) 100 mg PO BID [facility] Last Admin: 03/08/18 22:36 Dose: 100 mg Chlorhexidine Gluconate (Peridex -) 15 ml MM BID [facility] Last Admin: 03/08/18 22:36 Dose: 15 ml Cholecalciferol (Vitamin D3 -) 1,000 unit PO DAILY [facility] Last Admin: 03/08/18 09:55 Dose: 1,000 unit Diphenhydramine HCl (Benadryl Injection -) 25 mg IVPB ONCE PRN PRN Reason: DURING PLASMAPHERESIS Metronidazole (Flagyl 500mg Premixed Ivpb -) 500 mg in 100 mls @ 100 mls/hr IVPB BID [facility] Last Admin: 03/08/18 22:35 Dose: 100 mls/hr Levofloxacin (Levaquin 250 Mg Premixed Ivpb -) 250 mg in 50 mls @ 50 mls/hr IVPB DAILY [facility]; Protocol Last Admin: 03/08/18 09:55 Dose: 50 mls/hr Fentanyl 500 mcg/ Dextrose 100 mls @ 5 mls/hr IVPB TITR [facility]; Protocol Last Admin: 03/09/18 06:23 Dose: 50 mcg/hr, 10 mls/hr Lactated Ringer's (Lactated Ringers Solution) 1,000 ml in 1,000 mls @ 125 mls/ hr IV ASDIR [facility] Last Admin: 03/08/18 08:48 Dose: 125 mls/hr Lactobacillus Acidophilus (Bacid -) 1 tab PO DAILY [facility] Last Admin: 03/08/18 09:55 Dose: 1 tab Metoprolol Tartrate (Lopressor Injection -) 5 mg IVPUSH Q8H PRN PRN Reason: TACHYCARDIA Last Admin: 03/09/18 04:19 Dose: 5 mg Metoprolol Tartrate (Lopressor -) 25 mg NGT BID [facility] Last Admin: 03/08/18 22:36 Dose: 25 mg Pantoprazole Sodium (Protonix Iv) 40 mg IVPUSH BID [facility] Last Admin: 03/08/18 22:36 Dose: 40 mg Rifaximin (Xifaxan -) 550 mg PO BID [facility] Last Admin: 03/08/18 22:36 Dose: 550 mg Thiamine HCl (Vitamin B1 -) 100 mg PO DAILY [facility] Last Admin: 03/08/18 09:55 Dose: 100 mg - Objective Vital Signs: Vital Signs Temperature 97.8 F 03/09/18 06:00 Pulse Rate 102 H 03/09/18 10:00 Respiratory Rate 18 03/09/18 10:00 Blood Pressure 98/62 03/09/18 10:00 O2 Sat by Pulse Oximetry (%) 100 03/09/18 08:16 Constitutional: Yes: No Distress, Calm, Thin Neck: Yes: Supple Cardiovascular: Yes: Pulse Irregular, Murmur (2/6 SM) Respiratory: Yes: Diminished, Intubated, Mechanically Ventilated Gastrointestinal: Yes: Soft, Hypoactive Bowel Sounds Edema: No Labs: CBC, BMP 03/09/18 05:30 03/09/18 05:30 INR, PTT INR 1.49 (0.83-1.09) H 03/07/18 12:50 Fibrinogen 323.0 mg/dL (238-498) 03/07/18 12:50 - ....Imaging Chest X-ray: Report Reviewed (Stable) Problem List - Problems (1) Atrial fibrillation with RVR Code(s): I48.91 - UNSPECIFIED ATRIAL FIBRILLATION (2) [id number] kidney injury Code(s): N17.9 - ACUTE KIDNEY FAILURE, UNSPECIFIED; N18.9 - CHRONIC KIDNEY DISEASE, UNSPECIFIED Qualifiers: Acute renal failure type: unspecified Chronic kidney disease stage: unspecified stage Qualified Code(s): N17.9 - Acute kidney failure, unspecified ; N18.9 - Chronic kidney disease, unspecified (3) Demand ischemia Code(s): I24.8 - OTHER FORMS OF ACUTE ISCHEMIC HEART DISEASE (4) Hypercalcemia Code(s): E83.52 - HYPERCALCEMIA (5) Nonadherence to medication Code(s): Z91.14 - PATIENT'S OTHER NONCOMPLIANCE WITH MEDICATION REGIMEN (6) Paraproteinemia Code(s): D89.2 - HYPERGAMMAGLOBULINEMIA, UNSPECIFIED (7) Anticoagulant long-term use Code(s): Z79.01 - HALF-WAY (CURRENT) USE OF ANTICOAGULANTS (8) Chronic thromboembolic disease Code(s): I74.9 - EMBOLISM AND THROMBOSIS OF UNSPECIFIED ARTERY (9) Coronary artery disease Code(s): I25.10 - ATHSCL HEART DISEASE OF [place] CORONARY ARTERY W/O ANG PCTRS Qualifiers: Coronary Disease-Associated Artery/Lesion type: [place] artery [place] vs. transplanted heart: [place] heart Associated angina: without angina Qualified Code(s): I25.10 - Atherosclerotic heart disease of [place] coronary artery without angina pectoris (10) Diastolic dysfunction without heart failure Code(s): I51.9 - HEART DISEASE, UNSPECIFIED (11) HTN (hypertension) Code(s): I10 - ESSENTIAL (PRIMARY) HYPERTENSION Qualifiers: Hypertension type: essential hypertension Qualified Code(s): I10 - Essential (primary) hypertension (12) Hypertrophic cardiomyopathy Code(s): I42.2 - OTHER HYPERTROPHIC CARDIOMYOPATHY (13) Hyperlipidemia Code(s): E78.5 - HYPERLIPIDEMIA, UNSPECIFIED Qualifiers: Hyperlipidemia type: pure hypercholesterolemia Qualified Code(s): E78.00 - Pure hypercholesterolemia, unspecified; E78.0 - Pure hypercholesterolemia (14) Multiple myeloma Code(s): C90.00 - MULTIPLE MYELOMA NOT HAVING ACHIEVED REMISSION Qualifiers: Multiple myeloma remission status: not in remission Qualified Code(s): C90.00 - Multiple myeloma not having achieved remission (15) Acalculous cholecystitis Code(s): K81.9 - CHOLECYSTITIS, UNSPECIFIED Assessment/Plan R&LHc at [facility] 04/20/2016 showing nonobstructive CAD, severe LV apical hypertrophic cardiomyopathy, mildly elevated right sided pressures, Mynx deployed right 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 Echocardiogram: 10/18/2017 Mod cLVH, severe PURVI, mod TR RVSP 50-60 mmHg, mod- severe MR Echocardiogram: 01/23/2018 Normal LV size with hyperdynamic LVEF 75%, mild BSH, normal RV size and fxn, severe LAE, mod-severe MR, mod TR 1. Acute hypoxic respiratory failure, suspected aspiration pneumonia with sepsis syndrome, remains intubated 2. Toxic metabolic encephelopathy, rule out CVA, no change in status 3. Acute on CKD, suspected myeloma kidney 4. Paraproteinemia confirmed multiple myeloma 5. History of bilateral SFA occlusion post thrombectomy, most likely embolic disease related to persistent atrial fibrillation with [id number] score of 6 6. CAD with evidence of demand ischemic injury, non obstructive [facility] angina pectoris 7. 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 Persistent atrial fibrillation [id number] score of 6 currently on Heparin therapy 9. HTN 10. Anemia/thrombocytopenia 11. Acalculous Cholecystitis 12. Ischemic hepatitis 13. Resolved Hypernatremia PLAN: 1. Resume Heparin gtt as Hgb stable pending tracheostomy, transfuse to maintain Hg equal or > 8.0, as outlined in prior notes ideally A/C therapy to be continued indefinitely unless it is absolutely contraindicated considering his [id number] score of 6 2. Resume Lopressor 25 bid as hemodynamics permit 3. Antibiotics as per the primary team 4. Ventilator management as per the ICU team, lighten sedation 5. As outlined in prior notes overall poor prognosis (no improvement), family decided on tracheostomy
[2018-03-09 11:08] LABS: ANISOCYTOSIS 2+; MACROCYTOSIS 0; PLATELET ESTIMATE DECREASED; ROULEAU 2+
[2018-03-09] MEDS: CHLORHEXIDINE GLUCONATE 0.12% 15ML CUP MM SCH ×2 (11:49→21:26)
[2018-03-09] MEDS: LACTATED RINGERS SOLUTION 1,000 ML/1,000 ML INFUS.BAG IV SCH (11:49)
[2018-03-09] MEDS: METOPROLOL TARTRATE 25 MG TABLET (FP) NGT SCH ×2 (11:49→21:26)
[2018-03-09] MEDS: LACTOBACILLUS ACIDOPHILUS 1 TABLET PO SCH ×2 (11:49→17:18)
[2018-03-09] MEDS: RIFAXIMIN 550 MG TABLET (UD) PO SCH ×2 (11:51→21:27)
[2018-03-09] MEDS: THIAMINE HCL 100 MG TABLET (FP) PO SCH ×2 (11:51→17:18)
[2018-03-09] MEDS: CHOLECALCIFEROL (VITAMIN D3) 1,000 UNIT TABLET (FP) PO SCH ×2 (11:51→17:18)
[2018-03-09] MEDS: PANTOPRAZOLE SODIUM 40 MG VIAL IVPUSH SCH ×2 (11:51→21:27)
[2018-03-09] MEDS: ALLOPURINOL 100 MG TABLET (FP) PO SCH ×2 (11:52→21:34)
--- NOTE | 2018-03-09 13:05 | PN ---
Progress Note (short form) - Note Progress Note: Patient seen and examined Remains intubated Poorly responsive even to deep pains Last Vital Signs Temp Pulse Resp BP Pulse Ox 97.8 F 102 H 18 98/62 100 03/09/18 06:00 03/09/18 10:00 03/09/18 11:37 03/09/18 10:00 03/09/18 08:16 Intubated Diminished breath sounds Cor- RSR Abd- distended Rectal tube Brenner catheter CBC, BMP 03/09/18 05:30 03/09/18 05:30 INR, PTT INR 1.49 (0.83-1.09) H 03/07/18 12:50 Fibrinogen 323.0 mg/dL (238-498) 03/07/18 12:50 Current Medications Generic Name Dose Route Start Last Admin Trade Name Freq PRN Reason Stop Dose Admin Acetaminophen 650 mg 02/17/18 14:09 03/02/18 03:13 Tylenol - PO 650 mg Q6H PRN Administration PAIN LEVEL 1 - 3 Allopurinol 100 mg 02/16/18 10:00 03/09/18 11:52 Zyloprim - PO Not Given BID [facility] Chlorhexidine Gluconate 15 ml 02/17/18 23:45 03/09/18 11:49 Peridex - MM 15 ml BID [facility] Administration Cholecalciferol 1,000 unit 02/25/18 10:00 03/09/18 11:51 Vitamin D3 - PO Not Given DAILY [facility] Diphenhydramine HCl 25 mg 02/16/18 12:00 Benadryl Injection - IVPB ONCE PRN DURING PLASMAPHERESIS Metronidazole 500 mg in 100 mls @ 100 mls/hr 02/24/18 14:30 03/09/18 11:48 Flagyl 500mg Premixed Ivpb - IVPB 100 mls/hr BID [facility] Administration Levofloxacin 250 mg in 50 mls @ 50 mls/hr 02/26/18 12:45 03/09/18 11:48 Levaquin 250 Mg Premixed Ivpb - IVPB 50 mls/hr DAILY [facility] Administration Protocol Fentanyl 500 mcg/ Dextrose 100 mls @ 5 mls/hr 03/04/18 19:00 03/09/18 06:23 IVPB 50 mcg/hr TITR [facility] 10 mls/hr Administration Protocol 25 MCG/HR Lactated Ringer's 1,000 ml in 1,000 mls @ 125 mls/hr 03/08/18 08:30 03/09/18 11:49 Lactated Ringers Solution IV Not Given ASDIR [facility] Lactobacillus Acidophilus 1 tab 03/04/18 10:00 03/09/18 11:49 Bacid - PO Not Given DAILY [facility] Metoprolol Tartrate 5 mg 02/16/18 13:04 03/09/18 04:19 Lopressor Injection - IVPUSH 5 mg Q8H PRN Administration TACHYCARDIA Metoprolol Tartrate 25 mg 03/08/18 11:54 03/09/18 11:49 Lopressor - NGT Not Given BID [facility] Pantoprazole Sodium 40 mg 03/08/18 22:00 03/09/18 11:51 Protonix Iv IVPUSH 40 mg BID [facility] Administration Rifaximin 550 mg 02/22/18 22:00 03/09/18 11:51 Xifaxan - PO Not Given BID [facility] Thiamine HCl 100 mg 02/06/18 22:12 03/09/18 11:51 Vitamin B1 - PO Not Given DAILY [facility] Impression: Multiple myeloma Respiratory Failure Intubation Sepsis Anemia Coagulopathy Thrombocytopenia Plan: Hold on trach Optimize platelets and coagulation factors prior to trach Would like platelets at 100K and PT< 1.2 Will monitor and would transfuse platelets and FFP prior to procedure to optimization.
--- NOTE | 2018-03-09 13:21 | PN ---
Progress Note, Physician History of Present Illness: Unresponsive on ventilator Afebrile Pancytopenic - Current Medication List Current Medications: Active Medications Acetaminophen (Tylenol -) 650 mg PO Q6H PRN PRN Reason: PAIN LEVEL 1 - 3 Last Admin: 03/02/18 03:13 Dose: 650 mg Allopurinol (Zyloprim -) 100 mg PO BID [facility] Last Admin: 03/09/18 11:52 Dose: Not Given Chlorhexidine Gluconate (Peridex -) 15 ml MM BID [facility] Last Admin: 03/09/18 11:49 Dose: 15 ml Cholecalciferol (Vitamin D3 -) 1,000 unit PO DAILY [facility] Last Admin: 03/09/18 11:51 Dose: Not Given Diphenhydramine HCl (Benadryl Injection -) 25 mg IVPB ONCE PRN PRN Reason: DURING PLASMAPHERESIS Metronidazole (Flagyl 500mg Premixed Ivpb -) 500 mg in 100 mls @ 100 mls/hr IVPB BID [facility] Last Admin: 03/09/18 11:48 Dose: 100 mls/hr Levofloxacin (Levaquin 250 Mg Premixed Ivpb -) 250 mg in 50 mls @ 50 mls/hr IVPB DAILY [facility]; Protocol Last Admin: 03/09/18 11:48 Dose: 50 mls/hr Fentanyl 500 mcg/ Dextrose 100 mls @ 5 mls/hr IVPB TITR [facility]; Protocol Last Admin: 03/09/18 06:23 Dose: 50 mcg/hr, 10 mls/hr Lactated Ringer's (Lactated Ringers Solution) 1,000 ml in 1,000 mls @ 125 mls/ hr IV ASDIR [facility] Last Admin: 03/09/18 11:49 Dose: Not Given Lactobacillus Acidophilus (Bacid -) 1 tab PO DAILY [facility] Last Admin: 03/09/18 11:49 Dose: Not Given Metoprolol Tartrate (Lopressor Injection -) 5 mg IVPUSH Q8H PRN PRN Reason: TACHYCARDIA Last Admin: 03/09/18 04:19 Dose: 5 mg Metoprolol Tartrate (Lopressor -) 25 mg NGT BID [facility] Last Admin: 03/09/18 11:49 Dose: Not Given Pantoprazole Sodium (Protonix Iv) 40 mg IVPUSH BID [facility] Last Admin: 03/09/18 11:51 Dose: 40 mg Rifaximin (Xifaxan -) 550 mg PO BID [facility] Last Admin: 03/09/18 11:51 Dose: Not Given Thiamine HCl (Vitamin B1 -) 100 mg PO DAILY [facility] Last Admin: 03/09/18 11:51 Dose: Not Given - Objective Vital Signs: Vital Signs Temperature 98.5 F 03/09/18 10:00 Pulse Rate 109 H 03/09/18 12:00 Respiratory Rate 18 03/09/18 12:00 Blood Pressure 102/71 03/09/18 12:00 O2 Sat by Pulse Oximetry (%) 100 03/09/18 08:16 Constitutional: Yes: No Distress Cardiovascular: Yes: Regular Rate and Rhythm, S1, S2 Respiratory: Yes: Mechanically Ventilated Gastrointestinal: Yes: Normal Bowel Sounds, Soft. No: Tenderness Edema: Yes Labs: CBC, BMP 03/09/18 05:30 03/09/18 05:30 INR, PTT INR 1.49 (0.83-1.09) H 03/07/18 12:50 Fibrinogen 323.0 mg/dL (238-498) 03/07/18 12:50 Assessment/Plan Respiratory failure RLL pneumonia Acalculus Cholecystitis Toxic metabolic encephalopathy Renal failure Myeloma Hyperviscosity syndrome Diarrhea Pancytopenia Continue levaquin / flagyl For tracheostomy Ventilatory support Prognosis poor
--- NOTE | 2018-03-09 13:22 | PN ---
Teaching Attending Note Name of Resident: Kevan Griffith ATTENDING PHYSICIAN STATEMENT I saw and evaluated the patient. I reviewed the resident's note and discussed the case with the resident. I agree with the resident's findings and plan as documented. SUBJECTIVE: Patient seen and examined in the ICU. Remains intubated, poorly responsive. Family decision to proceed with tracheostomy. Seen by Mehdi this AM, and due to increasing INR, we are going to hold on this elective case. OBJECTIVE: Intake & Output 03/06/18 03/07/18 03/08/18 03/09/18 23:59 23:59 23:59 23:59 Intake Total 3894 5737 3933 1720 Output Total 1700 1350 1400 800 Balance 2194 4387 2533 920 Weight 198 lb 8 oz 205 lb 214 lb 219 lb 5.759 oz Last Vital Signs Temp Pulse Resp BP Pulse Ox 98.5 F 109 H 18 102/71 100 03/09/18 10:00 03/09/18 12:00 03/09/18 12:00 03/09/18 12:00 03/09/18 08:16 Active Medications Acetaminophen (Tylenol -) 650 mg PO Q6H PRN PRN Reason: PAIN LEVEL 1 - 3 Last Admin: 03/02/18 03:13 Dose: 650 mg Allopurinol (Zyloprim -) 100 mg PO BID [facility] Last Admin: 03/09/18 11:52 Dose: Not Given Chlorhexidine Gluconate (Peridex -) 15 ml MM BID [facility] Last Admin: 03/09/18 11:49 Dose: 15 ml Cholecalciferol (Vitamin D3 -) 1,000 unit PO DAILY [facility] Last Admin: 03/09/18 11:51 Dose: Not Given Diphenhydramine HCl (Benadryl Injection -) 25 mg IVPB ONCE PRN PRN Reason: DURING PLASMAPHERESIS Metronidazole (Flagyl 500mg Premixed Ivpb -) 500 mg in 100 mls @ 100 mls/hr IVPB BID [facility] Last Admin: 03/09/18 11:48 Dose: 100 mls/hr Levofloxacin (Levaquin 250 Mg Premixed Ivpb -) 250 mg in 50 mls @ 50 mls/hr IVPB DAILY [facility]; Protocol Last Admin: 03/09/18 11:48 Dose: 50 mls/hr Fentanyl 500 mcg/ Dextrose 100 mls @ 5 mls/hr IVPB TITR [facility]; Protocol Last Admin: 03/09/18 06:23 Dose: 50 mcg/hr, 10 mls/hr Lactated Ringer's (Lactated Ringers Solution) 1,000 ml in 1,000 mls @ 125 mls/ hr IV ASDIR [facility] Last Admin: 03/09/18 11:49 Dose: Not Given Lactobacillus Acidophilus (Bacid -) 1 tab PO DAILY [facility] Last Admin: 03/09/18 11:49 Dose: Not Given Metoprolol Tartrate (Lopressor Injection -) 5 mg IVPUSH Q8H PRN PRN Reason: TACHYCARDIA Last Admin: 03/09/18 04:19 Dose: 5 mg Metoprolol Tartrate (Lopressor -) 25 mg NGT BID [facility] Last Admin: 03/09/18 11:49 Dose: Not Given Pantoprazole Sodium (Protonix Iv) 40 mg IVPUSH BID [facility] Last Admin: 03/09/18 11:51 Dose: 40 mg Rifaximin (Xifaxan -) 550 mg PO BID [facility] Last Admin: 03/09/18 11:51 Dose: Not Given Thiamine HCl (Vitamin B1 -) 100 mg PO DAILY [facility] Last Admin: 03/09/18 11:51 Dose: Not Given Gen: intubated, poorly responsive Heart: RRR Lung: scattered rhonchi Abd: soft, nontender Ext: + edema Laboratory Results - last 24 hr 03/08/18 03/08/18 03/09/18 13:00 19:00 05:30 WBC 4.2 3.6 L RBC 2.85 L 2.87 L Hgb 8.8 L 8.4 L Hct 25.1 L 25.7 L MCV 88.1 89.6 MCH 31.0 29.2 MCHC 35.2 32.6 RDW 16.5 H 16.1 H Plt Count 100 L D 91 L MPV 10.4 10.3 Absolute Neuts (auto) 3.3 2.8 Neutrophils % 77.7 77.5 Neutrophils % (Manual) 64.0 65.6 Band Neutrophils % 18.0 5.2 Lymphocytes % 16.3 16.3 Lymphocytes % (Manual) 12.0 D 16.7 D Monocytes % 3.2 L 3.9 Monocytes % (Manual) 1 L 5 D Eosinophils % 2.4 1.8 Eosinophils % (Manual) 2.0 D 4.2 D Basophils % 0.4 0.5 Basophils % (Manual) 0.0 1.0 D Myelocytes % (Man) 0 Promyelocytes % (Man) 0 Blast Cells % (Manual) 0 Nucleated RBC % 4 H 9 H Metamyelocytes 1 D 0 D Hypochromia 1+ 0 Platelet Estimate Decreased Decreased Platelet Comment No clumping noted Polychromasia 3+ Poikilocytosis 2+ Anisocytosis 1+ 2+ Microcytosis 3+ Macrocytosis 0 Rouleaux 2+ Anticoagulation Therapy Puncture Site ABG pH ABG pCO2 at Pt Temp ABG pO2 at Pt Temp ABG HCO3 ABG O2 Sat (Measured) ABG O2 Content ABG Base Excess Vinny Test O2 Delivery Device Oxygen Flow Rate Vent Mode Vent Rate Mechanical Rate PEEP Pressure Support Vent Sodium Potassium Chloride Carbon Dioxide Anion Gap BUN Creatinine Creat Clearance w eGFR Random Glucose Calcium Phosphorus Magnesium Total Bilirubin AST ALT Alkaline Phosphatase Total Protein Albumin Stool Occult Blood Negative 03/09/18 03/09/18 05:30 06:45 WBC RBC Hgb Hct MCV MCH MCHC RDW Plt Count MPV Absolute Neuts (auto) Neutrophils % Neutrophils % (Manual) Band Neutrophils % Lymphocytes % Lymphocytes % (Manual) Monocytes % Monocytes % (Manual) Eosinophils % Eosinophils % (Manual) Basophils % Basophils % (Manual) Myelocytes % (Man) Promyelocytes % (Man) Blast Cells % (Manual) Nucleated RBC % Metamyelocytes Hypochromia Platelet Estimate Platelet Comment Polychromasia Poikilocytosis Anisocytosis Microcytosis Macrocytosis Rouleaux Anticoagulation Therapy No Result Required. Puncture Site Right radial ABG pH 7.35 ABG pCO2 at Pt Temp 35.6 ABG pO2 at Pt Temp 86.9 D ABG HCO3 19.0 L ABG O2 Sat (Measured) 96.1 ABG O2 Content 12.0 L ABG Base Excess -5.5 L Vinny Test Positive O2 Delivery Device Vent Oxygen Flow Rate 40% Vent Mode No Result Required. Vent Rate 18 Mechanical Rate No Result Required. PEEP 5.0 Pressure Support Vent 500 Sodium 141 Potassium 4.5 Chloride 116 H Carbon Dioxide 20 L Anion Gap 5 L BUN 48 H Creatinine 1.3 Creat Clearance w eGFR 53.25 Random Glucose 73 L Calcium 6.6 L* Phosphorus 3.6 Magnesium 1.7 L Total Bilirubin 0.5 AST 45 H ALT 32 Alkaline Phosphatase 152 H Total Protein 8.2 Albumin 1.0 L Stool Occult Blood ASSESSMENT AND PLAN: Acute Hypoxic Respiratory Failure Altered Mental Status Metabolic Encephalopathy Pneumonia Acalculous Cholecystitis Multiple Myeloma Acute on Chronic Renal Failure Metabolic Acidosis LV Diastolic Dysfunction Atrial Fibrillation CAD +Troponins likely Demand Ischemia PAD Hyperlipidemia HTN Anemia - Correct coagulopathy - monitor H/H - monitor urine output, creatinine - rate control - minimize sedation to assess mental status - DVT/GI prophylaxis - continue discussions regarding goals of care - For Trach on Monday if stable - continue ICU monitoring - poor overall prognosis for meaningful recovery: have recommended to family for compassionate extubation but they have deciding on Trach/PEG Dr Ledezma Critical care time spent in reviewing chart, evaluating patient and formulating plan 35 min
[2018-03-09] MEDS ORDERED: PHYTONADIONE 10 MG/1 ML AMP SQ ONE ×2 (13:29→18:00)
--- NOTE | 2018-03-09 13:48 | PN ---
Progress Note, Physician Chief Complaint: INTUBATED SCHEDULED FOR TRACHEOSTOMY TOMORROW INR IS TO HIGH - Current Medication List Current Medications: Active Medications Acetaminophen (Tylenol -) 650 mg PO Q6H PRN PRN Reason: PAIN LEVEL 1 - 3 Last Admin: 03/02/18 03:13 Dose: 650 mg Allopurinol (Zyloprim -) 100 mg PO BID [facility] Last Admin: 03/09/18 11:52 Dose: Not Given Chlorhexidine Gluconate (Peridex -) 15 ml MM BID [facility] Last Admin: 03/09/18 11:49 Dose: 15 ml Cholecalciferol (Vitamin D3 -) 1,000 unit PO DAILY [facility] Last Admin: 03/09/18 11:51 Dose: Not Given Diphenhydramine HCl (Benadryl Injection -) 25 mg IVPB ONCE PRN PRN Reason: DURING PLASMAPHERESIS Metronidazole (Flagyl 500mg Premixed Ivpb -) 500 mg in 100 mls @ 100 mls/hr IVPB BID [facility] Last Admin: 03/09/18 11:48 Dose: 100 mls/hr Levofloxacin (Levaquin 250 Mg Premixed Ivpb -) 250 mg in 50 mls @ 50 mls/hr IVPB DAILY [facility]; Protocol Last Admin: 03/09/18 11:48 Dose: 50 mls/hr Fentanyl 500 mcg/ Dextrose 100 mls @ 5 mls/hr IVPB TITR [facility]; Protocol Last Admin: 03/09/18 06:23 Dose: 50 mcg/hr, 10 mls/hr Lactated Ringer's (Lactated Ringers Solution) 1,000 ml in 1,000 mls @ 125 mls/ hr IV ASDIR [facility] Last Admin: 03/09/18 11:49 Dose: Not Given Lactobacillus Acidophilus (Bacid -) 1 tab PO DAILY [facility] Last Admin: 03/09/18 11:49 Dose: Not Given Metoprolol Tartrate (Lopressor Injection -) 5 mg IVPUSH Q8H PRN PRN Reason: TACHYCARDIA Last Admin: 03/09/18 04:19 Dose: 5 mg Metoprolol Tartrate (Lopressor -) 25 mg NGT BID [facility] Last Admin: 03/09/18 11:49 Dose: Not Given Pantoprazole Sodium (Protonix Iv) 40 mg IVPUSH BID [facility] Last Admin: 03/09/18 11:51 Dose: 40 mg Phytonadione (Aqua Mephyton Injection -) 5 mg SQ ONCE ONE Stop: 03/09/18 13:30 Rifaximin (Xifaxan -) 550 mg PO BID [facility] Last Admin: 03/09/18 11:51 Dose: Not Given Thiamine HCl (Vitamin B1 -) 100 mg PO DAILY [facility] Last Admin: 03/09/18 11:51 Dose: Not Given - Objective Vital Signs: Vital Signs Temperature 98.5 F 03/09/18 10:00 Pulse Rate 109 H 03/09/18 12:00 Respiratory Rate 18 03/09/18 12:00 Blood Pressure 102/71 03/09/18 12:00 O2 Sat by Pulse Oximetry (%) 100 03/09/18 08:16 Constitutional: Yes: Other Cardiovascular: Yes: Pulse Irregular Respiratory: Yes: Diminished, Mechanically Ventilated Gastrointestinal: Yes: Soft Genitourinary: Yes: Brenner Present Musculoskeletal: Yes: Muscle Weakness Labs: CBC, BMP 03/09/18 05:30 03/09/18 05:30 INR, PTT INR 1.49 (0.83-1.09) H 03/07/18 12:50 Fibrinogen 323.0 mg/dL (238-498) 03/07/18 12:50 Problem List - Problems (1) MELITA (acute kidney injury) Code(s): N17.9 - ACUTE KIDNEY FAILURE, UNSPECIFIED (2) Atrial fibrillation with RVR Code(s): I48.91 - UNSPECIFIED ATRIAL FIBRILLATION (3) Hyperlipidemia Code(s): E78.5 - HYPERLIPIDEMIA, UNSPECIFIED Qualifiers: Hyperlipidemia type: pure hypercholesterolemia Qualified Code(s): E78.00 - Pure hypercholesterolemia, unspecified; E78.0 - Pure hypercholesterolemia (4) Hypothermia Code(s): T68.XXXA - HYPOTHERMIA, INITIAL ENCOUNTER Qualifiers: Encounter type: initial encounter Qualified Code(s): T68.XXXA - Hypothermia , initial encounter (5) Evqox-aq-ersvzph kidney injury Code(s): N17.9 - ACUTE KIDNEY FAILURE, UNSPECIFIED; N18.9 - CHRONIC KIDNEY DISEASE, UNSPECIFIED Qualifiers: Acute renal failure type: unspecified Chronic kidney disease stage: unspecified stage Qualified Code(s): N17.9 - Acute kidney failure, unspecified ; N18.9 - Chronic kidney disease, unspecified (6) Generalized weakness Code(s): R53.1 - WEAKNESS (7) History of ETOH abuse Code(s): Z87.898 - PERSONAL HISTORY OF OTHER SPECIFIED CONDITIONS (8) Hypercalcemia Code(s): E83.52 - HYPERCALCEMIA (9) Hypertrophic cardiomyopathy Code(s): I42.2 - OTHER HYPERTROPHIC CARDIOMYOPATHY (10) Toxic metabolic encephalopathy Code(s): G92 - TOXIC ENCEPHALOPATHY (11) Sepsis Code(s): A41.9 - SEPSIS, UNSPECIFIED ORGANISM (12) Respiratory failure Code(s): J96.90 - RESPIRATORY FAILURE, UNSP, UNSP W HYPOXIA OR HYPERCAPNIA Assessment/Plan NOW VENT DEPENDENT INTUBATED FOR MANY DAYS WILL NEED TRACHEOSTOMY. AWAITING FAMILY CONSENT INR TO BE ADJUSTED WIT HEMATOLGY IV ABX CONTINUE PER ID. 02 SUPPORT 40% O2 UNABLE TO WEAN OFF VENT. CARDIO F/U ON HEPARIN IV FOR AC. MONITOR LABS, FREQUENT TURNING AND OFF LOADING TO PREVENT SKIN BREAK DOWN NGT FEEDS, AMINO ACIDS FOR PROTEIN AND PREVENT SKIN ULCERS. ADVANCED DIRECTIVES UNCLEAR, AWAIT FAMILY DECISION AT THIS PROGNOSIS IS POOR FOR A FULL MEANINGFUL RECOVERY LABS DAILY MONITOR ELECTROLYTES. NEURO EVAL MVI/THIAMINE CONTINUE AGREE WITH PULMONARY TO DECREASE SEDATION TO EVALUATE MENTAL STATUS
--- NOTE | 2018-03-09 14:00 | PN ---
Physical Exam: SUBJECTIVE: Patient seen and examined in the ICU. Remains intubated, poorly responsive but now on fentanyl gtt. opens eyes to voice. No gross change in overall mental status. Family decision to proceed with tracheostomy. Seen by Mehdi this AM, and due to increasing INR, we are going to hold on this elective case. Oliver (son) has been informed OBJECTIVE: Vital Signs Period Temp Pulse Resp BP Sys/Ariza Pulse Ox Last 24 Hr 97.8 F-98.5 F 90-134 18-22 87-112/61-87 95-100 GENERAL: Remains intubated, poorly responsive off sedation but opens eyes to voice. HEENT: NCAT PERRL sclera anicteric. nares patent, dry mucous membranes NECK: Trachea midline. LUNGS: bilateral diffuse rhonchi HEART: reg rate and irregular rhythm. ABDOMEN: Soft, nondistended NT EXTREMITIES: 2+ pulses, warm, well-perfused, no edema, scattered ulcers. NEUROLOGICAL: difficult to assess secondary to clinical condition. gag reflex does not appear to be present. opens eyes to voice. corneal reflex+, +gag reflex SKIN: Warm, dry, normal turgor, scattered ulcers on the legs Laboratory Results - last 24 hr 03/08/18 03/08/18 03/09/18 13:00 19:00 05:30 WBC 4.2 3.6 L RBC 2.85 L 2.87 L Hgb 8.8 L 8.4 L Hct 25.1 L 25.7 L MCV 88.1 89.6 MCH 31.0 29.2 MCHC 35.2 32.6 RDW 16.5 H 16.1 H Plt Count 100 L D 91 L MPV 10.4 10.3 Absolute Neuts (auto) 3.3 2.8 Neutrophils % 77.7 77.5 Neutrophils % (Manual) 64.0 65.6 Band Neutrophils % 18.0 5.2 Lymphocytes % 16.3 16.3 Lymphocytes % (Manual) 12.0 D 16.7 D Monocytes % 3.2 L 3.9 Monocytes % (Manual) 1 L 5 D Eosinophils % 2.4 1.8 Eosinophils % (Manual) 2.0 D 4.2 D Basophils % 0.4 0.5 Basophils % (Manual) 0.0 1.0 D Myelocytes % (Man) 0 Promyelocytes % (Man) 0 Blast Cells % (Manual) 0 Nucleated RBC % 4 H 9 H Metamyelocytes 1 D 0 D Hypochromia 1+ 0 Platelet Estimate Decreased Decreased Platelet Comment No clumping noted Polychromasia 3+ Poikilocytosis 2+ Anisocytosis 1+ 2+ Microcytosis 3+ Macrocytosis 0 Rouleaux 2+ Anticoagulation Therapy Puncture Site ABG pH ABG pCO2 at Pt Temp ABG pO2 at Pt Temp ABG HCO3 ABG O2 Sat (Measured) ABG O2 Content ABG Base Excess Vinny Test O2 Delivery Device Oxygen Flow Rate Vent Mode Vent Rate Mechanical Rate PEEP Pressure Support Vent Sodium Potassium Chloride Carbon Dioxide Anion Gap BUN Creatinine Creat Clearance w eGFR Random Glucose Calcium Phosphorus Magnesium Total Bilirubin AST ALT Alkaline Phosphatase Total Protein Albumin Stool Occult Blood Negative 03/09/18 03/09/18 05:30 06:45 WBC RBC Hgb Hct MCV MCH MCHC RDW Plt Count MPV Absolute Neuts (auto) Neutrophils % Neutrophils % (Manual) Band Neutrophils % Lymphocytes % Lymphocytes % (Manual) Monocytes % Monocytes % (Manual) Eosinophils % Eosinophils % (Manual) Basophils % Basophils % (Manual) Myelocytes % (Man) Promyelocytes % (Man) Blast Cells % (Manual) Nucleated RBC % Metamyelocytes Hypochromia Platelet Estimate Platelet Comment Polychromasia Poikilocytosis Anisocytosis Microcytosis Macrocytosis Rouleaux Anticoagulation Therapy No Result Required. Puncture Site Right radial ABG pH 7.35 ABG pCO2 at Pt Temp 35.6 ABG pO2 at Pt Temp 86.9 D ABG HCO3 19.0 L ABG O2 Sat (Measured) 96.1 ABG O2 Content 12.0 L ABG Base Excess -5.5 L Vinny Test Positive O2 Delivery Device Vent Oxygen Flow Rate 40% Vent Mode No Result Required. Vent Rate 18 Mechanical Rate No Result Required. PEEP 5.0 Pressure Support Vent 500 Sodium 141 Potassium 4.5 Chloride 116 H Carbon Dioxide 20 L Anion Gap 5 L BUN 48 H Creatinine 1.3 Creat Clearance w eGFR 53.25 Random Glucose 73 L Calcium 6.6 L* Phosphorus 3.6 Magnesium 1.7 L Total Bilirubin 0.5 AST 45 H ALT 32 Alkaline Phosphatase 152 H Total Protein 8.2 Albumin 1.0 L Stool Occult Blood Active Medications Generic Name Dose Route Start Last Admin Trade Name Freq PRN Reason Stop Dose Admin Acetaminophen 650 mg 02/17/18 14:09 03/02/18 03:13 Tylenol - PO 650 mg Q6H PRN Administration PAIN LEVEL 1 - 3 Allopurinol 100 mg 02/16/18 10:00 03/09/18 11:52 Zyloprim - PO Not Given BID [facility] Chlorhexidine Gluconate 15 ml 02/17/18 23:45 03/09/18 11:49 Peridex - MM 15 ml BID [facility] Administration Cholecalciferol 1,000 unit 02/25/18 10:00 03/09/18 11:51 Vitamin D3 - PO Not Given DAILY [facility] Diphenhydramine HCl 25 mg 02/16/18 12:00 Benadryl Injection - IVPB ONCE PRN DURING PLASMAPHERESIS Metronidazole 500 mg in 100 mls @ 100 mls/hr 02/24/18 14:30 03/09/18 11:48 Flagyl 500mg Premixed Ivpb - IVPB 100 mls/hr BID [facility] Administration Levofloxacin 250 mg in 50 mls @ 50 mls/hr 02/26/18 12:45 03/09/18 11:48 Levaquin 250 Mg Premixed Ivpb - IVPB 50 mls/hr DAILY [facility] Administration Protocol Fentanyl 500 mcg/ Dextrose 100 mls @ 5 mls/hr 03/04/18 19:00 03/09/18 06:23 IVPB 50 mcg/hr TITR [facility] 10 mls/hr Administration Protocol 25 MCG/HR Lactated Ringer's 1,000 ml in 1,000 mls @ 125 mls/hr 03/08/18 08:30 03/09/18 11:49 Lactated Ringers Solution IV Not Given ASDIR [facility] Lactobacillus Acidophilus 1 tab 03/04/18 10:00 03/09/18 11:49 Bacid - PO Not Given DAILY [facility] Metoprolol Tartrate 5 mg 02/16/18 13:04 03/09/18 04:19 Lopressor Injection - IVPUSH 5 mg Q8H PRN Administration TACHYCARDIA Metoprolol Tartrate 25 mg 03/08/18 11:54 03/09/18 11:49 Lopressor - NGT Not Given BID [facility] Pantoprazole Sodium 40 mg 03/08/18 22:00 03/09/18 11:51 Protonix Iv IVPUSH 40 mg BID [facility] Administration Phytonadione 5 mg 03/09/18 13:29 Aqua Mephyton Injection - SQ 03/09/18 13:30 ONCE ONE Rifaximin 550 mg 02/22/18 22:00 03/09/18 11:51 Xifaxan - PO Not Given BID [facility] Thiamine HCl 100 mg 02/06/18 22:12 03/09/18 11:51 Vitamin B1 - PO Not Given DAILY [facility] ASSESSMENT/PLAN: 77 yo m PMH of A-Fib, Acute on chronic kidney injury, CAD w stents, hypercalcemia, medication non-adherence, paraproteinemia, thromboembolic disease , diastolic heart dysfunction without failure, HTN, HLD, hypertrophic cardiomyopathy is here after a rapid response. He was on the floors when it was noticed that he has respiratory insufficiency and was desaturating, requiring ICU monitoring. GOC discussion ongoing. Family decision to proceed with tracheostomy. Seen by Mehdi this AM, and due to increasing INR, we are going to hold on this elective case. GI: will need PEG placement when gets trache metabolic encephalopathy -ammonia downtrending w/ rifaximin, s/p lactulose -LFTs elevated but downtrending. transamintitis most likely secondary to ischemic hepatits which is multifactorial including sepsis, episodes of hypotension and hyperviscosity syndrome. acalculous cholecystitis? US shows thickened gallbladder wall, pericholecystic fluid, suspicious for acalculous cholecystitis. There was also mild dilatation of the CBD but that might be normal for age. -Spoke w/ IR, who feel image does not represent acalculous cholecystitis and does not require any IR drainage ID: No fevers recorded. - Rhonchi heard on Lung auscultation -RLL pneumonia bcx 02/26/18 neg off of ceftazidime Vancomycin Redosed 02/26/18 C diff neg 03/04/18 - c/w levaquin/flagyl. - ID on board - c/w rifaximin for elevated ammonia level Cardio: Afib -[id number] score of 6 - Lopressor 75 mg BID PO -IV metoprolol 5 mg PRN - diastolic dysfunction + hypertrophic cardiomyopathy - CAD with multiple stents - Cardio consulted and on board. off Xarelto 15 qd (renal dosing) while on heparin gtt. transfuse to maintain Hgb >8.0 s/p 1 u prbc 02/27/18 and 1 u prbc 03/01/18, Heparin with caution considering the dropping Hg, transfuse to maintain Hg equal or > 8.0, as outlined in prior notes ideally A/C therapy to be continued indefinitely unless it is absolutely contraindicated considering his [id number] score of 6 - Sporadically goes in and out of V-Tach - Can give amio if v-tach is sustained and persistent. -Off heparin gtt, s/p 2 U prbcs w/ appropriate response. FOBT neg Pulm: - Intubated -surgery consult for trache - Seen by Mehdi this AM, and due to increasing INR, we are going to hold on this elective case. -For Trach on Monday if stable - Patient has b/l pleural effusions. - No pneumothorax - b/l diffuse rhonchi - infiltrate on CXR: Abx- Substituting levaquin for ceftazidime Vancomycin Redosed 02/26/18 - c/w levaquin/flagyl. Renal: - Acute on Chronic kidney injury MELITA ATN vs. 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 tubular injury, US showed no stones or obstruction, UA w/o protein but UPCR ~0.5 indicating non- albumin proteinuria) - Renal consulted and on board. Hyperkalemia (r/o tumor lysis) serum K is improved, s/p bicarb gtt Neuro: - Patient is not alert or oriented. Remains intubated, poorly responsive but now on fentanyl gtt. opens eyes to voice - Head CT showed no acute pathology - Neuro consulted and on board. (Dr. Kuo + Dr. mejia) -ammonia stable in 60s w/ rifaximin, lactulose dcd Heme/Onc: - monitor H/H - Will transfuse to keep hb > 8 - Patient not receiving plasmapharesis today. - Paraproteinemia - Patient fulfills new criteria for multiple myeloma with free kappa/ free lambda light chain ratio of 432 (>100 is diagnostic of myeloma) - Spaulding/Lambda ratio > 100 consistent with Multiple myeloma - M spike elevated elevated at 6.8 previously 4.7 -steroids being held at this time s/p 1 u prbc 02/27/18 and 1 u prbc 03/01/18, Heparin with caution considering the dropping Hg, transfuse to maintain Hg equal or > 8.0, as outlined in prior notes ideally A/C therapy to be continued indefinitely unless it is absolutely contraindicated considering his [id number] score of 6 -Hypotensive this AM and H/H low (6.7) without obvious source of bleeding. will give 2 U prbcs and dc heparin -platelets are low and downtrending. -fibrinogen nl -f/u HIT AB -Off heparin gtt, s/p 2 U prbcs w/ appropriate response. FOBT neg -Seen by Mehdi this AM, and due to increasing INR, we are going to hold on this elective case. -Optimize platelets and coagulation factors prior to trach. Trach on Monday if stable -Vit K -Would like platelets at 100K and PT< 1.2 -monitor and would transfuse platelets and FFP prior to procedure to optimization. Endo: - Parathyroid hormone WNL - PTH-borderline low appropriate given hypercalcemia, PTHrP low Prophylaxis: -Off heparin gtt, s/p 2 U prbcs w/ appropriate response. FOBT neg transfuse to maintain Hg equal or > 8.0, as outlined in prior notes ideally A/C therapy to be continued indefinitely unless it is absolutely contraindicated considering his [id number] score of 6 - Protonix F/E/N: F: LR 125cc E: Will replete lytes PRN N: tube feeds (low potassium feeds). with free water Code Status: Full Code -GOC discussion ongoing -Family decision to proceed with tracheostomy. See palliative care notes for further explanation. -have recommended to family for compassionate extubation but they have deciding on Trach/PEG Dispo: Patient will continue to receive ICU level care poor overall prognosis for meaningful recovery Family decision to proceed with tracheostomy. Seen by Mehdi this AM, and due to increasing INR, we are going to hold on this elective case. Oliver (son) has been informed Visit type - Emergency Visit Emergency Visit: Yes ED Registration Date: 02/06/18 Care time: The patient presented to the Emergency Department on the above date and was hospitalized for further evaluation of their emergent condition. - New Patient This patient is new to me today: Yes Date on this admission: 03/09/18 - Critical Care Critical Care patient: Yes Total Critical Care Time (in minutes): 38 Critical Care Statement: The care of this patient involved high complexity decision making to prevent further life threatening deterioration of the patient 's condition and/or to evaluate & treat vital organ system(s) failure or risk of failure.
--- NOTE | 2018-03-09 14:54 | PN ---
Progress Note (short form) - Note Progress Note: Renal follow up for Hypercalcemia/MELITA Pt seen and examined in the ICU on vent, no change in clinical status on tube feeds FIO2 40% Vital Signs Temperature 98.3 F 03/08/18 12:00 Pulse Rate 96 H 03/08/18 14:00 Respiratory Rate 18 03/08/18 13:05 Blood Pressure 98/61 03/08/18 14:00 O2 Sat by Pulse Oximetry (%) 100 03/08/18 10:00 Intake & Output 03/05/18 03/06/18 03/07/18 03/08/18 23:59 23:59 23:59 23:59 Intake Total 3308 3894 5737 1720 Output Total 800 1700 1350 1100 Balance 2508 2194 4387 620 Weight 89.3 kg 90.038 kg 92.986 kg 97.069 kg NAD trace sacral edema CBC, BMP 03/08/18 05:30 03/08/18 05:30 Current Medications Acetaminophen (Tylenol -) 650 mg PO Q6H PRN PRN Reason: PAIN LEVEL 1 - 3 Last Admin: 03/02/18 03:13 Dose: 650 mg Allopurinol (Zyloprim -) 100 mg PO BID [facility] Last Admin: 03/08/18 09:55 Dose: 100 mg Chlorhexidine Gluconate (Peridex -) 15 ml MM BID [facility] Last Admin: 03/08/18 09:57 Dose: 15 ml Cholecalciferol (Vitamin D3 -) 1,000 unit PO DAILY [facility] Last Admin: 03/08/18 09:55 Dose: 1,000 unit Diphenhydramine HCl (Benadryl Injection -) 25 mg IVPB ONCE PRN PRN Reason: DURING PLASMAPHERESIS Metronidazole (Flagyl 500mg Premixed Ivpb -) 500 mg in 100 mls @ 100 mls/hr IVPB BID [facility] Last Admin: 03/08/18 09:55 Dose: 100 mls/hr Levofloxacin (Levaquin 250 Mg Premixed Ivpb -) 250 mg in 50 mls @ 50 mls/hr IVPB DAILY [facility]; Protocol Last Admin: 03/08/18 09:55 Dose: 50 mls/hr Fentanyl 500 mcg/ Dextrose 100 mls @ 5 mls/hr IVPB TITR [facility]; Protocol Last Admin: 03/07/18 18:34 Dose: 50 mcg/hr, 10 mls/hr Lactated Ringer's (Lactated Ringers Solution) 1,000 ml in 1,000 mls @ 125 mls/ hr IV ASDIR [facility] Last Admin: 03/08/18 08:48 Dose: 125 mls/hr Lactobacillus Acidophilus (Bacid -) 1 tab PO DAILY [facility] Last Admin: 03/08/18 09:55 Dose: 1 tab Metoprolol Tartrate (Lopressor Injection -) 5 mg IVPUSH Q8H PRN PRN Reason: TACHYCARDIA Last Admin: 03/03/18 18:44 Dose: 5 mg Metoprolol Tartrate (Lopressor -) 25 mg NGT BID [facility] Pantoprazole Sodium (Protonix Iv) 40 mg IVPUSH BID [facility] Rifaximin (Xifaxan -) 550 mg PO BID [facility] Last Admin: 03/08/18 09:55 Dose: 550 mg Thiamine HCl (Vitamin B1 -) 100 mg PO DAILY [facility] Last Admin: 03/08/18 09:55 Dose: 100 mg 77 year old gentleman with hx of CKD, Afib on A/C, CAD, CKD, Hypertension, Hyperlipidemia, PVD who presented with AMS/Confusion and found to have MELITA. #MELITA ATN vs. 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 tubular injury, US showed no stones or obstruction, UA w/o protein but UPCR ~0.5 indicating non- albumin proteinuria) #AMS #Newly diagnosed multiple myloma #Anemia #Hypercalcemia of Malignancy (PTH is low) #Hyperdense lesion on US of the kidney #Normal anion gap metabolic acidosis #Hyperkalemia (now resolved) Renal function stable at this time continue supportive care tube feeds with free water start sodium bicarb daily trend renal function ane electrolytes Mack Miller DO
--- NOTE | 2018-03-09 16:10 | PN ---
Progress Note (short form) - Note Progress Note: Thoracic Surgery: Full consult to follow. Possible tracheostomy on Monday if labs OK.
[2018-03-09] MEDS ORDERED: HEMOQUE TEST 1 EACH EACH ONE (21:07)
[2018-03-10] MEDS: METOPROLOL TARTRATE 5 MG/5 ML VIAL IVPUSH PRN (01:03)
[2018-03-10 06:03] LABS: BASO % 0.5 % (0-2.0); HEMATOCRIT 24.6 % (35.4-49); HEMOGLOBIN 8.1 GM/dL (11.7-16.9); LYMPH % 22.5 % (8-40); MCH 29.6 pg (25.7-33.7); MEAN CELL VOLUME 89.8 fl (80-96); MEAN PLT VOLUME 9.8 fl (7.5-11.1); MONO % 4.1 % (3.8-10.2); NEUT % 71.9 % (42.8-82.8); PLATELET COUNT 109 K/MM3 (134-434); RBC 2.74 M/mm3 (4.00-5.60); RDW 16.2 % (11.9-15.9); WHITE BLOOD COUNT 3.4 K/mm3 (4.0-10.0)
[2018-03-10 06:13] LABS: INR 1.56 (0.83-1.09); PROTHROMBIN TIME (PATIENT) 18.5 SEC (9.7-13.0)
[2018-03-10 06:16] LABS: ACTIVATED PTT 32.7 SECONDS (25.2-36.5)
[2018-03-10 06:41] LABS: ALBUMIN 0.9 g/dl (3.4-5.0); ALK PHOS 129 U/L (45-117); ANION GAP 4 MMOL/L (8-16); BILIRUBIN,TOTAL 0.5 mg/dL (0.2-1); BLOOD UREA NITROGEN 45 mg/dL (7-18); CHLORIDE 116 mmol/L (98-107); CO2 21 mmol/L (21-32); CREATININE 1.2 mg/dL (0.55-1.3); GLUCOSE,RANDOM 60 mg/dL (74-106); MAGNESIUM 1.7 mg/dL (1.8-2.4); PHOSPHOROUS 3.7 mg/dL (2.5-4.9); POTASSIUM 4.9 mmol/L (3.5-5.1); SGOT/AST 35 U/L (15-37); SGPT/ALT 25 U/L (13-61); SODIUM 142 mmol/L (136-145)
[2018-03-10 07:05] LABS: CALCIUM 6.5 mg/dL (8.5-10.1)
[2018-03-10 07:09] LABS: ARTERIAL BLD GAS O2 SATURATION 98.3 % (90-98.9); ARTERIAL BLOOD GAS BASE EXCESS -5.5 meq/l (-2-2); ARTERIAL BLOOD GAS PCO2 32.6 mmHg (35-45); ARTERIAL BLOOD GAS pH 7.37 (7.35-7.45)
[2018-03-10 07:14] LABS: ALLENS TEST POSITIVE
--- NOTE | 2018-03-10 08:12 | CONSULT ---
Consult Consult Specialty:: Thoracic Surgery Referred by:: ICU team Reason for Consultation:: Request tracheostomy - History of Present Illness Chief Complaint: Respiratory failure, failure to thrive History of Present Illness: 77M with MMP, prolonged intubation, also anticoagulated for afib and has PVD. ICU requesting tracheostomy. Has abnormal coagulation factors, platelets, and Multiple Myeloma. - History Source History Provided By: Medical Record, Caregiver - Past Medical History Cardio/Vascular: Yes: AFIB, HTN, MA Renal/: Yes: Renal Failure, Renal Inusuff Additional Medical History: peripheral arterial diseases/p stent in LLE - Past Surgical History Past Surgical History: Yes: Hernia Repair - Alcohol/Substance Use Hx Alcohol Use: Yes History of Substance Use: reports: None - Smoking History Smoking history: Former smoker Have you smoked in the past 12 months: No Aproximately how many cigarettes per day: 10 If you are a former smoker, when did you quit?: 04.06.16 Home Medications - Allergies Allergies/Adverse Reactions: Allergies Allergy/AdvReac Type Severity Reaction Status Date / Time valsartan Allergy Severe Verified 02/06/18 16:47 - Home Medications Home Medications: Ambulatory Orders Atorvastatin Ca [Lipitor] 40 mg PO HS #30 tablet 10/19/17 Rivaroxaban [Xarelto -] 20 mg PO DAILY@1800 #30 tablet 10/19/17 Carvedilol [Coreg -] 6.25 mg PO BID #60 tablet 01/24/18 Family Disease History - Family Disease History Family History: Unremarkable Physical Exam Vital Signs: Vital Signs Temperature 98.1 F 03/10/18 06:00 Pulse Rate 109 H 03/10/18 08:00 Respiratory Rate 18 03/10/18 08:03 Blood Pressure 103/69 03/10/18 08:00 O2 Sat by Pulse Oximetry (%) 100 03/10/18 08:08 Constitutional: Yes: Other (Intubated and sedated) Labs: CBC, BMP 03/10/18 05:30 03/10/18 05:30 Imaging - Results Chest X-ray: Report Reviewed, Image Reviewed Problem List - Problems (1) MELITA (acute kidney injury) Code(s): N17.9 - ACUTE KIDNEY FAILURE, UNSPECIFIED (2) Altered mental status Code(s): R41.82 - ALTERED MENTAL STATUS, UNSPECIFIED (3) Anemia Code(s): D64.9 - ANEMIA, UNSPECIFIED (4) Multiple myeloma Code(s): C90.00 - MULTIPLE MYELOMA NOT HAVING ACHIEVED REMISSION Qualifiers: Multiple myeloma remission status: not in remission Qualified Code(s): C90.00 - Multiple myeloma not having achieved remission (5) Respiratory failure Code(s): J96.90 - RESPIRATORY FAILURE, UNSP, UNSP W HYPOXIA OR HYPERCAPNIA (6) Sepsis Code(s): A41.9 - SEPSIS, UNSPECIFIED ORGANISM (7) Nhnnv-gu-xqoharq kidney injury Code(s): N17.9 - ACUTE KIDNEY FAILURE, UNSPECIFIED; N18.9 - CHRONIC KIDNEY DISEASE, UNSPECIFIED Qualifiers: Acute renal failure type: unspecified Chronic kidney disease stage: unspecified stage Qualified Code(s): N17.9 - Acute kidney failure, unspecified ; N18.9 - Chronic kidney disease, unspecified (8) Persistent atrial fibrillation Code(s): I48.1 - PERSISTENT ATRIAL FIBRILLATION (9) Chronic thromboembolic disease Code(s): I74.9 - EMBOLISM AND THROMBOSIS OF UNSPECIFIED ARTERY (10) Coronary artery disease Code(s): I25.10 - ATHSCL HEART DISEASE OF [place] CORONARY ARTERY W/O ANG PCTRS Qualifiers: Coronary Disease-Associated Artery/Lesion type: [place] artery [place] vs. transplanted heart: [place] heart Associated angina: without angina Qualified Code(s): I25.10 - Atherosclerotic heart disease of [place] coronary artery without angina pectoris Assessment/Plan For tracheostomy on Monday if coagulation factors, platelets, OK and family still wishes to have it done.
--- NOTE | 2018-03-10 08:15 | PN ---
Progress Note (short form) - Note Progress Note: SUBJECTIVE: Patient seen and examined in the ICU. -awaiting trach, npo right now, will f/u -INR slightly elevated, received vit K OBJECTIVE: Vital Signs Temp 98.1 F 03/10/18 06:00 Pulse 109 H 03/10/18 08:00 Resp 18 03/10/18 08:03 BP 103/69 03/10/18 08:00 Pulse Ox 100 03/10/18 08:08 Intake & Output 03/09/18 03/09/18 03/10/18 11:59 23:59 11:59 Intake Total 9273 648 9480 Output Total 800 200 600 Balance 611 016 9295 Weight 99.5 kg 99.5 kg Intake: IV 1620 1620 LACTATED RINGERS SOLUTION 1500 1500 1,000 ml In 1,000 ml @ 125 mls/hr IV ASDIR [facility] Rx#:[id number] Sublimaze Injection - 500 120 120 Mcg In D5w - 90 ml @ 25 MCG/HR 5 mls/hr IVPB TITR [facility] Rx#:[id number] IVPB 100 150 100 Tube Feeding 50 50 Tube Irrigant 250 Output: Urine 800 200 600 Brenner 800 200 600 Other: Voiding Method Indwelling Catheter Indwelling Catheter Indwelling Catheter Bowel Movement Yes Yes Weight Measurement [facility] Active Medications Acetaminophen (Tylenol -) 650 mg PO Q6H PRN PRN Reason: PAIN LEVEL 1 - 3 Last Admin: 03/02/18 03:13 Dose: 650 mg Allopurinol (Zyloprim -) 100 mg PO BID [facility] Last Admin: 03/09/18 21:34 Dose: 100 mg Chlorhexidine Gluconate (Peridex -) 15 ml MM BID [facility] Last Admin: 03/09/18 21:26 Dose: 15 ml Cholecalciferol (Vitamin D3 -) 1,000 unit PO DAILY [facility] Last Admin: 03/09/18 17:18 Dose: 1,000 unit Diphenhydramine HCl (Benadryl Injection -) 25 mg IVPB ONCE PRN PRN Reason: DURING PLASMAPHERESIS Metronidazole (Flagyl 500mg Premixed Ivpb -) 500 mg in 100 mls @ 100 mls/hr IVPB BID [facility] Last Admin: 03/09/18 21:25 Dose: 100 mls/hr Levofloxacin (Levaquin 250 Mg Premixed Ivpb -) 250 mg in 50 mls @ 50 mls/hr IVPB DAILY [facility]; Protocol Last Admin: 03/09/18 11:48 Dose: 50 mls/hr Fentanyl 500 mcg/ Dextrose 100 mls @ 5 mls/hr IVPB TITR [facility]; Protocol Last Admin: 03/09/18 21:24 Dose: Not Given Lactated Ringer's (Lactated Ringers Solution) 1,000 ml in 1,000 mls @ 125 mls/ hr IV ASDIR [facility] Last Admin: 03/09/18 11:49 Dose: Not Given Lactobacillus Acidophilus (Bacid -) 1 tab PO DAILY [facility] Last Admin: 03/09/18 17:18 Dose: 1 tab Metoprolol Tartrate (Lopressor Injection -) 5 mg IVPUSH Q8H PRN PRN Reason: TACHYCARDIA Last Admin: 03/10/18 01:03 Dose: 5 mg Metoprolol Tartrate (Lopressor -) 25 mg NGT BID [facility] Last Admin: 03/09/18 21:26 Dose: Not Given Pantoprazole Sodium (Protonix Iv) 40 mg IVPUSH BID [facility] Last Admin: 03/09/18 21:27 Dose: 40 mg Rifaximin (Xifaxan -) 550 mg PO BID [facility] Last Admin: 03/09/18 21:27 Dose: 550 mg Sodium Bicarbonate (Sodium Bicarbonate -) 650 mg NGT DAILY [facility] Thiamine HCl (Vitamin B1 -) 100 mg PO DAILY [facility] Last Admin: 03/09/18 17:18 Dose: 100 mg Gen: intubated, poorly responsive Heart: RRR, no mr/r/g appreciated Lung: scattered rhonchi, no distress Abd: soft, + BS Ext: + dependent edema Laboratory Results - last 24 hr 03/07/18 03/09/18 03/09/18 12:50 05:30 13:33 WBC RBC Hgb Hct MCV MCH MCHC RDW Plt Count MPV Absolute Neuts (auto) Neutrophils % Neutrophils % (Manual) 65.6 Band Neutrophils % 5.2 Lymphocytes % Lymphocytes % (Manual) 16.7 D Monocytes % Monocytes % (Manual) 5 D Eosinophils % Eosinophils % (Manual) 4.2 D Basophils % Basophils % (Manual) 1.0 D Myelocytes % (Man) 0 Promyelocytes % (Man) 0 Blast Cells % (Manual) 0 Nucleated RBC % 9 H Metamyelocytes 0 D Hypochromia 0 Platelet Estimate Decreased Polychromasia 3+ Poikilocytosis 2+ Anisocytosis 2+ Microcytosis 3+ Macrocytosis 0 Rouleaux 2+ PT with INR INR PTT (Actin FS) Fibrinogen 352.0 Anticoagulation Therapy Puncture Site ABG pH ABG pCO2 at Pt Temp ABG pO2 at Pt Temp ABG HCO3 ABG O2 Sat (Measured) ABG O2 Content ABG Base Excess Vinny Test O2 Delivery Device Oxygen Flow Rate Vent Mode Vent Rate Mechanical Rate PEEP Pressure Support Vent Sodium Potassium Chloride Carbon Dioxide Anion Gap BUN Creatinine Creat Clearance w eGFR Random Glucose Calcium Phosphorus Magnesium Total Bilirubin AST ALT Alkaline Phosphatase Total Protein Albumin Heparin-Ind Plt Ab Scrn 0.226 03/10/18 03/10/18 03/10/18 05:30 05:30 05:30 WBC 3.4 L RBC 2.74 L Hgb 8.1 L Hct 24.6 L MCV 89.8 MCH 29.6 MCHC 33.0 RDW 16.2 H Plt Count 109 L MPV 9.8 Absolute Neuts (auto) 2.5 Neutrophils % 71.9 Neutrophils % (Manual) Band Neutrophils % Lymphocytes % 22.5 D Lymphocytes % (Manual) Monocytes % 4.1 Monocytes % (Manual) Eosinophils % 1.0 Eosinophils % (Manual) Basophils % 0.5 Basophils % (Manual) Myelocytes % (Man) Promyelocytes % (Man) Blast Cells % (Manual) Nucleated RBC % 4 H Metamyelocytes Hypochromia Platelet Estimate Polychromasia Poikilocytosis Anisocytosis Microcytosis Macrocytosis Rouleaux PT with INR 18.50 H INR 1.56 H PTT (Actin FS) 32.7 Fibrinogen Anticoagulation Therapy Puncture Site ABG pH ABG pCO2 at Pt Temp ABG pO2 at Pt Temp ABG HCO3 ABG O2 Sat (Measured) ABG O2 Content ABG Base Excess Vinny Test O2 Delivery Device Oxygen Flow Rate Vent Mode Vent Rate Mechanical Rate PEEP Pressure Support Vent Sodium 142 Potassium 4.9 Chloride 116 H Carbon Dioxide 21 Anion Gap 4 L BUN 45 H Creatinine 1.2 Creat Clearance w eGFR 58.40 Random Glucose 60 L Calcium 6.5 L* Phosphorus 3.7 Magnesium 1.7 L Total Bilirubin 0.5 AST 35 ALT 25 Alkaline Phosphatase 129 H Total Protein 8.0 Albumin 0.9 L Heparin-Ind Plt Ab Scrn 03/10/18 06:30 WBC RBC Hgb Hct MCV MCH MCHC RDW Plt Count MPV Absolute Neuts (auto) Neutrophils % Neutrophils % (Manual) Band Neutrophils % Lymphocytes % Lymphocytes % (Manual) Monocytes % Monocytes % (Manual) Eosinophils % Eosinophils % (Manual) Basophils % Basophils % (Manual) Myelocytes % (Man) Promyelocytes % (Man) Blast Cells % (Manual) Nucleated RBC % Metamyelocytes Hypochromia Platelet Estimate Polychromasia Poikilocytosis Anisocytosis Microcytosis Macrocytosis Rouleaux PT with INR INR PTT (Actin FS) Fibrinogen Anticoagulation Therapy No Result Required. Puncture Site Right radial ABG pH 7.37 ABG pCO2 at Pt Temp 32.6 L ABG pO2 at Pt Temp 119.0 H D ABG HCO3 18.5 L ABG O2 Sat (Measured) 98.3 ABG O2 Content 13.1 L ABG Base Excess -5.5 L Vinny Test Positive O2 Delivery Device Mech vent Oxygen Flow Rate 40% Vent Mode No Result Required. Vent Rate 18 Mechanical Rate No Result Required. PEEP 5.0 Pressure Support Vent 500 Sodium Potassium Chloride Carbon Dioxide Anion Gap BUN Creatinine Creat Clearance w eGFR Random Glucose Calcium Phosphorus Magnesium Total Bilirubin AST ALT Alkaline Phosphatase Total Protein Albumin Heparin-Ind Plt Ab Scrn ASSESSMENT AND PLAN: Acute Hypoxic Respiratory Failure Altered Mental Status Metabolic Encephalopathy Pneumonia Acalculous Cholecystitis Multiple Myeloma Acute on Chronic Renal Failure Metabolic Acidosis LV Diastolic Dysfunction Atrial Fibrillation CAD +Troponins likely Demand Ischemia PAD Hyperlipidemia HTN Anemia - Correct coagulopathy - monitor H/H - monitor urine output, creatinine - rate control - minimize sedation to assess mental status , low dose fent for comfort - DVT/GI prophylaxis - continue discussions regarding goals of care - For Trach on Monday if stable labs - continue ICU monitoring - poor overall prognosis for meaningful recovery: have recommended to family for compassionate extubation but they have deciding on Trach/PEG Saloni ACNP [id number] 35min CCT
--- NOTE | 2018-03-10 08:19 | PN ---
Progress Note, Physician Chief Complaint: FAMILY BEDSIDE NO CHANGES AWAITING TRACHEOSTOMY MONDAY - Current Medication List Current Medications: Active Medications Acetaminophen (Tylenol -) 650 mg PO Q6H PRN PRN Reason: PAIN LEVEL 1 - 3 Last Admin: 03/02/18 03:13 Dose: 650 mg Allopurinol (Zyloprim -) 100 mg PO BID [facility] Last Admin: 03/09/18 21:34 Dose: 100 mg Chlorhexidine Gluconate (Peridex -) 15 ml MM BID [facility] Last Admin: 03/09/18 21:26 Dose: 15 ml Cholecalciferol (Vitamin D3 -) 1,000 unit PO DAILY [facility] Last Admin: 03/09/18 17:18 Dose: 1,000 unit Diphenhydramine HCl (Benadryl Injection -) 25 mg IVPB ONCE PRN PRN Reason: DURING PLASMAPHERESIS Metronidazole (Flagyl 500mg Premixed Ivpb -) 500 mg in 100 mls @ 100 mls/hr IVPB BID [facility] Last Admin: 03/09/18 21:25 Dose: 100 mls/hr Levofloxacin (Levaquin 250 Mg Premixed Ivpb -) 250 mg in 50 mls @ 50 mls/hr IVPB DAILY [facility]; Protocol Last Admin: 03/09/18 11:48 Dose: 50 mls/hr Fentanyl 500 mcg/ Dextrose 100 mls @ 5 mls/hr IVPB TITR [facility]; Protocol Last Admin: 03/09/18 21:24 Dose: Not Given Lactated Ringer's (Lactated Ringers Solution) 1,000 ml in 1,000 mls @ 125 mls/ hr IV ASDIR [facility] Last Admin: 03/09/18 11:49 Dose: Not Given Lactobacillus Acidophilus (Bacid -) 1 tab PO DAILY [facility] Last Admin: 03/09/18 17:18 Dose: 1 tab Metoprolol Tartrate (Lopressor Injection -) 5 mg IVPUSH Q8H PRN PRN Reason: TACHYCARDIA Last Admin: 03/10/18 01:03 Dose: 5 mg Metoprolol Tartrate (Lopressor -) 25 mg NGT BID [facility] Last Admin: 03/09/18 21:26 Dose: Not Given Pantoprazole Sodium (Protonix Iv) 40 mg IVPUSH BID [facility] Last Admin: 03/09/18 21:27 Dose: 40 mg Rifaximin (Xifaxan -) 550 mg PO BID [facility] Last Admin: 03/09/18 21:27 Dose: 550 mg Sodium Bicarbonate (Sodium Bicarbonate -) 650 mg NGT DAILY [facility] Thiamine HCl (Vitamin B1 -) 100 mg PO DAILY [facility] Last Admin: 03/09/18 17:18 Dose: 100 mg - Objective Vital Signs: Vital Signs Temperature 98.1 F 03/10/18 06:00 Pulse Rate 109 H 03/10/18 08:00 Respiratory Rate 18 03/10/18 08:03 Blood Pressure 103/69 03/10/18 08:00 O2 Sat by Pulse Oximetry (%) 100 03/10/18 08:08 Constitutional: Yes: Other Cardiovascular: Yes: Pulse Irregular Respiratory: Yes: Mechanically Ventilated Gastrointestinal: Yes: Soft Genitourinary: Yes: Brenner Present Musculoskeletal: Yes: Muscle Weakness Labs: CBC, BMP 03/10/18 05:30 03/10/18 05:30 INR, PTT INR 1.56 (0.83-1.09) H 03/10/18 05:30 Fibrinogen 352.0 mg/dL (238-498) 03/09/18 13:33 Problem List - Problems (1) MELITA (acute kidney injury) Code(s): N17.9 - ACUTE KIDNEY FAILURE, UNSPECIFIED (2) Atrial fibrillation with RVR Code(s): I48.91 - UNSPECIFIED ATRIAL FIBRILLATION (3) Hyperlipidemia Code(s): E78.5 - HYPERLIPIDEMIA, UNSPECIFIED Qualifiers: Hyperlipidemia type: pure hypercholesterolemia Qualified Code(s): E78.00 - Pure hypercholesterolemia, unspecified; E78.0 - Pure hypercholesterolemia (4) Hypothermia Code(s): T68.XXXA - HYPOTHERMIA, INITIAL ENCOUNTER Qualifiers: Encounter type: initial encounter Qualified Code(s): T68.XXXA - Hypothermia , initial encounter (5) Cacky-[id number]-[id number] kidney injury Code(s): N17.9 - ACUTE KIDNEY FAILURE, UNSPECIFIED; N18.9 - CHRONIC KIDNEY DISEASE, UNSPECIFIED Qualifiers: Acute renal failure type: unspecified Chronic kidney disease stage: unspecified stage Qualified Code(s): N17.9 - Acute kidney failure, unspecified ; N18.9 - Chronic kidney disease, unspecified (6) Generalized weakness Code(s): R53.1 - WEAKNESS (7) History of ETOH abuse Code(s): Z87.898 - PERSONAL HISTORY OF OTHER SPECIFIED CONDITIONS (8) Hypercalcemia Code(s): E83.52 - HYPERCALCEMIA (9) Hypertrophic cardiomyopathy Code(s): I42.2 - OTHER HYPERTROPHIC CARDIOMYOPATHY (10) Toxic metabolic encephalopathy Code(s): G92 - TOXIC ENCEPHALOPATHY (11) Sepsis Code(s): A41.9 - SEPSIS, UNSPECIFIED ORGANISM (12) Respiratory failure Code(s): J96.90 - RESPIRATORY FAILURE, UNSP, UNSP W HYPOXIA OR HYPERCAPNIA Assessment/Plan NOW VENT DEPENDENT INTUBATED FOR MANY DAYS WILL NEED TRACHEOSTOMY. AWAITING INR TO BE ADJUSTED WIT HEMATOLOGY. IV ABX CONTINUE PER ID. 02 SUPPORT 40% O2 UNABLE TO WEAN OFF VENT. CARDIO F/U ON HEPARIN IV FOR AC. MONITOR LABS, FREQUENT TURNING AND OFF LOADING TO PREVENT SKIN BREAK DOWN NGT FEEDS, AMINO ACIDS FOR PROTEIN AND PREVENT SKIN ULCERS. ADVANCED DIRECTIVES UNCLEAR, AWAIT FAMILY DECISION AT THIS PROGNOSIS IS POOR FOR A FULL MEANINGFUL RECOVERY LABS DAILY MONITOR ELECTROLYTES. NEURO EVAL MVI/THIAMINE CONTINUE AGREE WITH PULMONARY TO DECREASE SEDATION TO EVALUATE MENTAL STATUS
[2018-03-10] MEDS ORDERED: PHYTONADIONE 10 MG/1 ML AMP IVPB SCH (08:45)
[2018-03-10] MEDS: LACTATED RINGERS SOLUTION 1,000 ML/1,000 ML INFUS.BAG IV SCH (09:24)
[2018-03-10] MEDS: METOPROLOL TARTRATE 25 MG TABLET (FP) NGT SCH ×2 (09:25→21:19)
[2018-03-10] MEDS: THIAMINE HCL 100 MG TABLET (FP) PO SCH (09:25)
[2018-03-10] MEDS: LACTOBACILLUS ACIDOPHILUS 1 TABLET PO SCH (09:25)
[2018-03-10] MEDS: SODIUM BICARBONATE 650 MG TABLET NGT SCH (09:25)
[2018-03-10] MEDS: ALLOPURINOL 100 MG TABLET (FP) PO SCH ×2 (09:25→21:19)
[2018-03-10] MEDS: CHOLECALCIFEROL (VITAMIN D3) 1,000 UNIT TABLET (FP) PO SCH (09:25)
[2018-03-10] MEDS: RIFAXIMIN 550 MG TABLET (UD) PO SCH ×2 (09:25→21:19)
[2018-03-10] MEDS: PANTOPRAZOLE SODIUM 40 MG VIAL IVPUSH SCH ×2 (09:27→21:18)
[2018-03-10] MEDS: CHLORHEXIDINE GLUCONATE 0.12% 15ML CUP MM SCH ×2 (09:27→21:19)
[2018-03-10 11:41] LABS: ANISOCYTOSIS 1+; MACROCYTOSIS 0; PLATELET ESTIMATE DECREASED; ROULEAU 1+
--- NOTE | 2018-03-10 12:24 | PN ---
Progress Note, Physician Chief Complaint: Events noted Remains on mechanical ventilation History of Present Illness: Patient was seen and examined in ICU. Remains on vent support. Chart was reviewed AF with RVR - Current Medication List Current Medications: Active Medications Acetaminophen (Tylenol -) 650 mg PO Q6H PRN PRN Reason: PAIN LEVEL 1 - 3 Last Admin: 03/02/18 03:13 Dose: 650 mg Allopurinol (Zyloprim -) 100 mg PO BID [facility] Last Admin: 03/10/18 09:25 Dose: 100 mg Chlorhexidine Gluconate (Peridex -) 15 ml MM BID [facility] Last Admin: 03/10/18 09:27 Dose: 15 ml Cholecalciferol (Vitamin D3 -) 1,000 unit PO DAILY [facility] Last Admin: 03/10/18 09:25 Dose: 1,000 unit Diphenhydramine HCl (Benadryl Injection -) 25 mg IVPB ONCE PRN PRN Reason: DURING PLASMAPHERESIS Metronidazole (Flagyl 500mg Premixed Ivpb -) 500 mg in 100 mls @ 100 mls/hr IVPB BID [facility] Last Admin: 03/10/18 09:26 Dose: 100 mls/hr Levofloxacin (Levaquin 250 Mg Premixed Ivpb -) 250 mg in 50 mls @ 50 mls/hr IVPB DAILY [facility]; Protocol Last Admin: 03/10/18 09:26 Dose: 50 mls/hr Fentanyl 500 mcg/ Dextrose 100 mls @ 5 mls/hr IVPB TITR [facility]; Protocol Last Admin: 03/09/18 21:24 Dose: Not Given Lactobacillus Acidophilus (Bacid -) 1 tab PO DAILY [facility] Last Admin: 03/10/18 09:25 Dose: 1 tab Metoprolol Tartrate (Lopressor Injection -) 5 mg IVPUSH Q8H PRN PRN Reason: TACHYCARDIA Last Admin: 03/10/18 01:03 Dose: 5 mg Metoprolol Tartrate (Lopressor -) 25 mg NGT BID [facility] Last Admin: 03/10/18 09:25 Dose: 25 mg Pantoprazole Sodium (Protonix Iv) 40 mg IVPUSH BID [facility] Last Admin: 03/10/18 09:27 Dose: 40 mg Rifaximin (Xifaxan -) 550 mg PO BID [facility] Last Admin: 03/10/18 09:25 Dose: 550 mg Sodium Bicarbonate (Sodium Bicarbonate -) 650 mg NGT DAILY [facility] Last Admin: 03/10/18 09:25 Dose: 650 mg Thiamine HCl (Vitamin B1 -) 100 mg PO DAILY [facility] Last Admin: 03/10/18 09:25 Dose: 100 mg - Objective Vital Signs: Vital Signs Temperature 98.1 F 03/10/18 06:00 Pulse Rate 113 H 03/10/18 08:29 Respiratory Rate 18 03/10/18 11:00 Blood Pressure 103/69 03/10/18 08:00 O2 Sat by Pulse Oximetry (%) 100 03/10/18 08:29 Cardiovascular: Yes: Pulse Irregular, S1, S2 Respiratory: Yes: Diminished, Mechanically Ventilated Gastrointestinal: Yes: Normal Bowel Sounds, Soft. No: Tenderness Edema: No Labs: CBC, BMP 03/10/18 05:30 03/10/18 05:30 INR, PTT INR 1.56 (0.83-1.09) H 03/10/18 05:30 Fibrinogen 352.0 mg/dL (238-498) 03/09/18 13:33 - ....Imaging Chest X-ray: Report Reviewed Problem List - Problems (1) Anemia Code(s): D64.9 - ANEMIA, UNSPECIFIED (2) Hyperlipidemia Code(s): E78.5 - HYPERLIPIDEMIA, UNSPECIFIED Qualifiers: Hyperlipidemia type: pure hypercholesterolemia Qualified Code(s): E78.00 - Pure hypercholesterolemia, unspecified; E78.0 - Pure hypercholesterolemia (3) Multiple myeloma Code(s): C90.00 - MULTIPLE MYELOMA NOT HAVING ACHIEVED REMISSION Qualifiers: Multiple myeloma remission status: not in remission Qualified Code(s): C90.00 - Multiple myeloma not having achieved remission (4) Respiratory failure Code(s): J96.90 - RESPIRATORY FAILURE, UNSP, UNSP W HYPOXIA OR HYPERCAPNIA (5) Sepsis Code(s): A41.9 - SEPSIS, UNSPECIFIED ORGANISM (6) Toxic metabolic encephalopathy Code(s): G92 - TOXIC ENCEPHALOPATHY (7) Athaa-xt-gxvrwjd kidney injury Code(s): N17.9 - ACUTE KIDNEY FAILURE, UNSPECIFIED; N18.9 - CHRONIC KIDNEY DISEASE, UNSPECIFIED Qualifiers: Acute renal failure type: unspecified Chronic kidney disease stage: unspecified stage Qualified Code(s): N17.9 - Acute kidney failure, unspecified ; N18.9 - Chronic kidney disease, unspecified (8) Demand ischemia Code(s): I24.8 - OTHER FORMS OF ACUTE ISCHEMIC HEART DISEASE (9) History of ETOH abuse Code(s): Z87.898 - PERSONAL HISTORY OF OTHER SPECIFIED CONDITIONS (10) Nonadherence to medication Code(s): Z91.14 - PATIENT'S OTHER NONCOMPLIANCE WITH MEDICATION REGIMEN (11) Paraproteinemia Code(s): D89.2 - HYPERGAMMAGLOBULINEMIA, UNSPECIFIED (12) Persistent atrial fibrillation Code(s): I48.1 - PERSISTENT ATRIAL FIBRILLATION (13) Chronic thromboembolic disease Code(s): I74.9 - EMBOLISM AND THROMBOSIS OF UNSPECIFIED ARTERY (14) Coronary artery disease Code(s): I25.10 - ATHSCL HEART DISEASE OF [place] CORONARY ARTERY W/O ANG PCTRS Qualifiers: Coronary Disease-Associated Artery/Lesion type: [place] artery [place] vs. transplanted heart: [place] heart Associated angina: without angina Qualified Code(s): I25.10 - Atherosclerotic heart disease of [place] coronary artery without angina pectoris (15) Diastolic dysfunction without heart failure Code(s): I51.9 - HEART DISEASE, UNSPECIFIED (16) HTN (hypertension) Code(s): I10 - ESSENTIAL (PRIMARY) HYPERTENSION Qualifiers: Hypertension type: essential hypertension Qualified Code(s): I10 - Essential (primary) hypertension (17) Hypertrophic cardiomyopathy Code(s): I42.2 - OTHER HYPERTROPHIC CARDIOMYOPATHY (18) Left ventricular systolic dysfunction Code(s): I51.9 - HEART DISEASE, UNSPECIFIED Assessment/Plan 1. Acute hypoxic respiratory failure, suspected aspiration pneumonia with sepsis syndrome, remains intubated 2. Toxic metabolic encephelopathy, rule out CVA 3. Acute on CKD 4. Paraproteinemia confirmed multiple myeloma 5. History of bilateral SFA occlusion post thrombectomy, most likely embolic disease related to persistent atrial fibrillation with [id number] score of 6 6. CAD with evidence of demand ischemic injury, non obstructive CAD [facility] coronary angiogrpahy angina pectoris 7. 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 Persistent atrial fibrillation [id number] score of 6 9. HTN 10. Anemia/thrombocytopenia 11. Acalculous Cholecystitis 12. Ischemic hepatitis 13. Resolved Hypernatremia PLAN: 1. Consider A/C therapy unless it is absolutely contraindicated considering his [id number] score of 6 and stroke risk 2. Lopressor 25 bid as hemodynamics permit 3. Antibiotics coverage 4. Ventilator management as per the ICU team 5. Await tracheostomy and PEG as per family Guarded Eliel Sam MD
--- NOTE | 2018-03-10 14:20 | PN ---
Progress Note (short form) - Note Progress Note: Covering dr dejesus Problems MELITA presenting as AMS/Confusion CKD, Afib on A/C, CAD, CKD, Hypertension, Hyperlipidemia, PVD #MELITA ATN vs. 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 tubular injury, US showed no stones or obstruction, UA w/o protein but UPCR ~0.5 indicating non-albumin proteinuria) multiple myloma new Anemia Hypercalcemia of Malignancy Hyperdense lesion on US of the kidney Normal anion gap metabolic acidosis Hyperkalemia resolved Current Medications Acetaminophen (Tylenol -) 650 mg PO Q6H PRN PRN Reason: PAIN LEVEL 1 - 3 Last Admin: 03/02/18 03:13 Dose: 650 mg Allopurinol (Zyloprim -) 100 mg PO BID [facility] Last Admin: 03/10/18 09:25 Dose: 100 mg Chlorhexidine Gluconate (Peridex -) 15 ml MM BID [facility] Last Admin: 03/10/18 09:27 Dose: 15 ml Cholecalciferol (Vitamin D3 -) 1,000 unit PO DAILY [facility] Last Admin: 03/10/18 09:25 Dose: 1,000 unit Diphenhydramine HCl (Benadryl Injection -) 25 mg IVPB ONCE PRN PRN Reason: DURING PLASMAPHERESIS Metronidazole (Flagyl 500mg Premixed Ivpb -) 500 mg in 100 mls @ 100 mls/hr IVPB BID [facility] Last Admin: 03/10/18 09:26 Dose: 100 mls/hr Levofloxacin (Levaquin 250 Mg Premixed Ivpb -) 250 mg in 50 mls @ 50 mls/hr IVPB DAILY [facility]; Protocol Last Admin: 03/10/18 09:26 Dose: 50 mls/hr Fentanyl 500 mcg/ Dextrose 100 mls @ 5 mls/hr IVPB TITR [facility]; Protocol Last Admin: 03/09/18 21:24 Dose: Not Given Lactobacillus Acidophilus (Bacid -) 1 tab PO DAILY [facility] Last Admin: 03/10/18 09:25 Dose: 1 tab Metoprolol Tartrate (Lopressor Injection -) 5 mg IVPUSH Q8H PRN PRN Reason: TACHYCARDIA Last Admin: 03/10/18 01:03 Dose: 5 mg Metoprolol Tartrate (Lopressor -) 25 mg NGT BID [facility] Last Admin: 03/10/18 09:25 Dose: 25 mg Pantoprazole Sodium (Protonix Iv) 40 mg IVPUSH BID [facility] Last Admin: 03/10/18 09:27 Dose: 40 mg Rifaximin (Xifaxan -) 550 mg PO BID [facility] Last Admin: 03/10/18 09:25 Dose: 550 mg Sodium Bicarbonate (Sodium Bicarbonate -) 650 mg NGT DAILY [facility] Last Admin: 03/10/18 09:25 Dose: 650 mg Thiamine HCl (Vitamin B1 -) 100 mg PO DAILY [facility] Last Admin: 03/10/18 09:25 Dose: 100 mg Last Vital Signs Temp Pulse Resp BP Pulse Ox 98.1 F 113 H 18 103/69 100 03/10/18 06:00 03/10/18 08:29 03/10/18 13:50 03/10/18 08:00 03/10/18 08:29 CBC, BMP 03/10/18 05:30 03/10/18 05:30 IMP- resp on vent for trach on monday mild prerenal continue to monitor volume and renal function Renal function stable at this time continue supportive care tube feeds with free water start sodium bicarb daily trend renal function ane electrolytes
[2018-03-10] MEDS ORDERED: fentaNYL CITRATE 250 MCG/5 ML VIAL ONE (18:46)
[2018-03-10] MEDS: FENTANYL INJECTION 500 MCG in DEXTROSE 5%-WATER - 90 ML IVPB SCH (18:52)
[2018-03-11 06:50] LABS: INR 1.47 (0.83-1.09); PROTHROMBIN TIME (PATIENT) 17.4 SEC (9.7-13.0)
--- NOTE | 2018-03-11 07:08 | PN ---
Progress Note (short form) - Note Progress Note: SUBJECTIVE: Patient seen and examined in the ICU. -uneventful 24hrs, -awaiting trach monday OBJECTIVE: Vital Signs Temp 98.2 F 03/11/18 06:00 Pulse 108 H 03/11/18 06:15 Resp 18 03/11/18 06:15 BP 111/68 03/11/18 06:00 Pulse Ox 100 03/11/18 06:15 Intake & Output 03/10/18 03/10/18 03/11/18 11:59 23:59 11:59 Intake Total 2685 745 6025 Output Total 196 883 3345 Balance 1170 -250 1510 Weight 99.5 kg 100.879 kg Intake: IV 1620 1620 LACTATED RINGERS SOLUTION 1500 1500 1,000 ml In 1,000 ml @ 125 mls/hr IV ASDIR [facility] Rx#:[id number] Sublimaze Injection - 500 120 120 Mcg In D5w - 90 ml @ 25 MCG/HR 5 mls/hr IVPB TITR [facility] Rx#:[id number] IVPB 100 100 Tube Feeding 50 540 Tube Irrigant 150 300 Output: Urine 509 207 [id number] Brenner [id number] Other: Voiding Method Indwelling Catheter Indwelling Catheter Bowel Movement Yes Yes Yes Weight Measurement Method [facility]ations Acetaminophen (Tylenol -) 650 mg PO Q6H PRN PRN Reason: PAIN LEVEL 1 - 3 Last Admin: 03/02/18 03:13 Dose: 650 mg Allopurinol (Zyloprim -) 100 mg PO BID [facility] Last Admin: 03/10/18 21:19 Dose: 100 mg Chlorhexidine Gluconate (Peridex -) 15 ml MM BID [facility] Last Admin: 03/10/18 21:19 Dose: 15 ml Cholecalciferol (Vitamin D3 -) 1,000 unit PO DAILY [facility] Last Admin: 03/10/18 09:25 Dose: 1,000 unit Diphenhydramine HCl (Benadryl Injection -) 25 mg IVPB ONCE PRN PRN Reason: DURING PLASMAPHERESIS Metronidazole (Flagyl 500mg Premixed Ivpb -) 500 mg in 100 mls @ 100 mls/hr IVPB BID [facility] Last Admin: 03/10/18 21:18 Dose: 100 mls/hr Levofloxacin (Levaquin 250 Mg Premixed Ivpb -) 250 mg in 50 mls @ 50 mls/hr IVPB DAILY [facility]; Protocol Last Admin: 03/10/18 09:26 Dose: 50 mls/hr Fentanyl 500 mcg/ Dextrose 100 mls @ 5 mls/hr IVPB TITR [facility]; Protocol Last Admin: 03/10/18 18:52 Dose: 50 mcg/hr, 10 mls/hr Lactobacillus Acidophilus (Bacid -) 1 tab PO DAILY [facility] Last Admin: 03/10/18 09:25 Dose: 1 tab Metoprolol Tartrate (Lopressor Injection -) 5 mg IVPUSH Q8H PRN PRN Reason: TACHYCARDIA Last Admin: 03/10/18 01:03 Dose: 5 mg Metoprolol Tartrate (Lopressor -) 25 mg NGT BID [facility] Last Admin: 03/10/18 21:19 Dose: 25 mg Pantoprazole Sodium (Protonix Iv) 40 mg IVPUSH BID [facility] Last Admin: 03/10/18 21:18 Dose: 40 mg Rifaximin (Xifaxan -) 550 mg PO BID [facility] Last Admin: 03/10/18 21:19 Dose: 550 mg Sodium Bicarbonate (Sodium Bicarbonate -) 650 mg NGT DAILY [facility] Last Admin: 03/10/18 09:25 Dose: 650 mg Thiamine HCl (Vitamin B1 -) 100 mg PO DAILY [facility] Last Admin: 03/10/18 09:25 Dose: 100 mg Gen: intubated, poorly responsive, slight grimace to noxious Heart: RRR, no mr/r/g appreciated Lung: scattered rhonchi, no distress Abd: soft, + BS Ext: + dependent edema CBC,CMP WBC 3.4 K/mm3 (4.0-10.0) L 03/10/18 05:30 Corrected WBC (auto) 10.42 K/mm3 02/23/18 05:30 RBC 2.74 M/mm3 (4.00-5.60) L 03/10/18 05:30 Hgb 8.1 GM/dL (11.7-16.9) L 03/10/18 05:30 Hct 24.6 % (35.4-49) L 03/10/18 05:30 MCV 89.8 fl (80-96) 03/10/18 05:30 MCH 29.6 pg (25.7-33.7) 03/10/18 05:30 MCHC 33.0 g/dl (32.0-35.9) 03/10/18 05:30 RDW 16.2 % (11.9-15.9) H 03/10/18 05:30 Plt Count 109 K/MM3 (134-434) L 03/10/18 05:30 MPV 9.8 fl (7.5-11.1) 03/10/18 05:30 Absolute Neuts (auto) 2.5 K/mm3 (1.5-8.0) 03/10/18 05:30 Total Counted 100 03/07/18 21:00 Neutrophils % 71.9 % (42.8-82.8) 03/10/18 05:30 Neutrophils % (Manual) 86.7 % (42.8-82.8) H D 03/10/18 05:30 Band Neutrophils % 0.0 % 03/10/18 05:30 Lymphocytes % 22.5 % (8-40) D 03/10/18 05:30 Lymphocytes % (Manual) 10.2 % (8-40) D 03/10/18 05:30 Monocytes % 4.1 % (3.8-10.2) 03/10/18 05:30 Monocytes % (Manual) 3 % (3.8-10.2) L 03/10/18 05:30 Eosinophils % 1.0 % (0-4.5) 03/10/18 05:30 Eosinophils % (Manual) 0.0 % (0-4.5) D 03/10/18 05:30 Basophils % 0.5 % (0-2.0) 03/10/18 05:30 Basophils % (Manual) 0.0 % (0-2.0) 03/10/18 05:30 Myelocytes % (Man) 0 % (0-2) 03/10/18 05:30 Promyelocytes % (Man) 0 % (0-2) 03/10/18 05:30 Blast Cells % (Manual) 0 % (0-0) 03/10/18 05:30 Nucleated RBC % 4 % (0-0) H 03/10/18 05:30 Metamyelocytes 0 % (0-2) 03/10/18 05:30 Manual Slide Review Cancelled 02/11/18 06:30 Hypochromia 0 03/10/18 05:30 Toxic Granulation 0 02/22/18 05:30 Dohle Bodies 0 02/22/18 05:30 Platelet Estimate Decreased 03/10/18 05:30 Platelet Comment No clumping noted 03/08/18 19:00 Polychromasia 1+ 03/10/18 05:30 Poikilocytosis 0 03/10/18 05:30 Basophilic Stippling 1+ 02/24/18 05:30 Anisocytosis 1+ 03/10/18 05:30 Microcytosis 1+ 03/10/18 05:30 Macrocytosis 0 03/10/18 05:30 Spherocytes 1+ 03/05/18 05:30 Sickle Cells 0 02/22/18 05:30 Target Cells 1+ 02/23/18 05:30 Tear Drop Cells 1+ 03/07/18 05:30 Ovalocytes 0 02/22/18 05:30 Stomatocytes 0 02/22/18 05:30 Helmet Cells 0 02/22/18 05:30 [place] Bodies 0 02/22/18 05:30 [place] Rings 0 02/22/18 05:30 [place] Cells 0 02/22/18 05:30 Acanthocytes (Spur) 0 02/22/18 05:30 Rouleaux 1+ 03/10/18 05:30 Fragmented RBCs 0 02/22/18 05:30 Schistocytes 0 02/22/18 05:30 Haptoglobin 198 mg/dL (34-200) 02/07/18 13:00 Blood Viscosity 4.0 cp (1.6-1.9) H 02/12/18 16:00 Sodium 142 mmol/L (136-145) 03/10/18 05:30 Potassium 4.9 mmol/L (3.5-5.1) 03/10/18 05:30 Chloride 116 mmol/L (98-107) H 03/10/18 05:30 Carbon Dioxide 21 mmol/L (21-32) 03/10/18 05:30 Anion Gap 4 MMOL/L (8-16) L 03/10/18 05:30 BUN 45 mg/dL (7-18) H 03/10/18 05:30 Creatinine 1.2 mg/dL (0.55-1.3) 03/10/18 05:30 Creat Clearance w eGFR 58.40 (>60) 03/10/18 05:30 Random Glucose 60 mg/dL (74-106) L 03/10/18 05:30 Lactic Acid 1.2 mmol/L (0.4-2.0) 02/23/18 05:30 Uric Acid 8.4 mg/dL (2.6-7.2) H 02/23/18 16:05 Calcium 6.5 mg/dL (8.5-10.1) L* 03/10/18 05:30 Ionized Calcium 7.4 mg/dL (4.5-5.6) H 02/07/18 06:00 Phosphorus 3.7 mg/dL (2.5-4.9) 03/10/18 05:30 Magnesium 1.7 mg/dL (1.8-2.4) L 03/10/18 05:30 Iron 50 ug/dL (38-169) 02/12/18 12:55 TIBC 173 ug/dL (250-450) L 02/12/18 12:55 Iron Saturation 29 % (15-55) 02/12/18 12:55 Ferritin 610.5 ng/ml (8-388) H 02/12/18 12:55 Total Bilirubin 0.5 mg/dL (0.2-1) 03/10/18 05:30 GGT 396 U/L (5-85) H 02/22/18 12:35 AST 35 U/L (15-37) 03/10/18 05:30 ALT 25 U/L (13-61) 03/10/18 05:30 Alkaline Phosphatase 129 U/L (45-117) H 03/10/18 05:30 Ammonia 49.00 umol/L (11-32) H 03/08/18 05:30 LD Total 325 U/L (87-246) H 02/07/18 00:55 Creatine Kinase 187 IU/L (26-308) 02/23/18 16:05 Creatine Kinase Index 3.9 % (0.0-5.0) 02/23/18 16:05 CK-MB (CK-2) 7.3 ng/mL (0.5-3.6) H 02/23/18 16:05 Troponin I 0.71 ng/ml (0.00-0.05) H* 02/23/18 16:05 B-Natriuretic Peptide 78729.4 pg/ml (5-450) H 02/25/18 05:30 Total Protein 8.0 g/dl (6.4-8.2) 03/10/18 05:30 Total Protein (PEP) 11.9 g/dL (6.0-8.5) H 02/09/18 08:00 Albumin 0.9 g/dl (3.4-5.0) L 03/10/18 05:30 Albumin (PEP) 2.3 gm/dl (2.9-4.4) L 02/09/18 08:00 Globulin 9.6 g/dL (2.2-3.9) H 02/09/18 08:00 Albumin/Globulin Ratio 0.2 (0.7-1.7) L 02/09/18 08:00 Prealbumin 11.8 mg/dl (20-40) L 02/07/18 06:00 Fysvp-2-Etgffplur (%) 1.5 % (.) 02/12/18 10:32 Nawvo-8-Rwmupmveg (%) 5.5 % (.) 02/12/18 10:32 Beta Globulins 1.0 gm/dL (0.7-1.3) 02/09/18 08:00 Beta Globulins (%) 11.4 % (.) 02/12/18 10:32 Gamma Globulins (%) 64.9 % (.) 02/12/18 10:32 M-Olegario % Comment: % (Not Observed) 02/12/18 10:32 Vitamin B12 431 pg/ml (193-986) 02/12/18 12:55 Vit D 1,25-Dihydroxy <5.0 pg/mL (19.9-79.3) L 02/10/18 06:10 TSH 1.94 uIU/ml (0.358-3.74) D 02/13/18 05:30 PTH Intact 15 pg/mL (15-65) 02/07/18 13:00 PTH Related Protein < 2.0 PG/ML (.) 02/10/18 06:10 ASSESSMENT AND PLAN: Acute Hypoxic Respiratory Failure Altered Mental Status Metabolic Encephalopathy Pneumonia Acalculous Cholecystitis Multiple Myeloma Acute on Chronic Renal Failure Metabolic Acidosis LV Diastolic Dysfunction Atrial Fibrillation CAD +Troponins likely Demand Ischemia PAD Hyperlipidemia HTN Anemia - Correct coagulopathy on day of surg - remains on LVQ and metro, to discuss with Dr Pace on monday, appears could come off. - rate control with BB - minimize sedation to assess mental status , low dose fent for comfort - DVT/GI prophylaxis - For Trach on Monday if stable labs - continue ICU monitoring - poor overall prognosis for meaningful recovery--> proceeding with trach/peg on family request. Should work on early placement post procedure. Saloni ACNP 1099 35min CCT
[2018-03-11] MEDS ORDERED: fentaNYL CITRATE 250 MCG/5 ML VIAL ONE ×2 (08:03→18:24)
[2018-03-11] MEDS: FENTANYL INJECTION 500 MCG in DEXTROSE 5%-WATER - 90 ML IVPB SCH ×3 (08:32→21:43)
[2018-03-11] MEDS: LACTOBACILLUS ACIDOPHILUS 1 TABLET PO SCH (09:12)
[2018-03-11] MEDS: SODIUM BICARBONATE 650 MG TABLET NGT SCH (09:13)
[2018-03-11] MEDS: THIAMINE HCL 100 MG TABLET (FP) PO SCH (09:13)
[2018-03-11] MEDS: CHOLECALCIFEROL (VITAMIN D3) 1,000 UNIT TABLET (FP) PO SCH (09:13)
[2018-03-11] MEDS: RIFAXIMIN 550 MG TABLET (UD) PO SCH ×2 (09:13→21:44)
[2018-03-11] MEDS: ALLOPURINOL 100 MG TABLET (FP) PO SCH ×2 (09:13→21:44)
[2018-03-11] MEDS: METOPROLOL TARTRATE 25 MG TABLET (FP) NGT SCH ×2 (09:14→21:44)
[2018-03-11] MEDS: PANTOPRAZOLE SODIUM 40 MG VIAL IVPUSH SCH ×2 (09:15→21:44)
[2018-03-11] MEDS: CHLORHEXIDINE GLUCONATE 0.12% 15ML CUP MM SCH ×2 (09:15→21:44)
--- NOTE | 2018-03-11 12:08 | PN ---
Progress Note, Physician Chief Complaint: FAMILY BEDSIDE NO CHANGES AWAITING TRACHEOSTOMY MONDAY IN ICU UNTIL TRACHEOSTOMY - Current Medication List Current Medications: Active Medications Acetaminophen (Tylenol -) 650 mg PO Q6H PRN PRN Reason: PAIN LEVEL 1 - 3 Last Admin: 03/02/18 03:13 Dose: 650 mg Allopurinol (Zyloprim -) 100 mg PO BID [facility] Last Admin: 03/11/18 09:13 Dose: 100 mg Chlorhexidine Gluconate (Peridex -) 15 ml MM BID [facility] Last Admin: 03/11/18 09:15 Dose: 15 ml Cholecalciferol (Vitamin D3 -) 1,000 unit PO DAILY [facility] Last Admin: 03/11/18 09:13 Dose: 1,000 unit Diphenhydramine HCl (Benadryl Injection -) 25 mg IVPB ONCE PRN PRN Reason: DURING PLASMAPHERESIS Metronidazole (Flagyl 500mg Premixed Ivpb -) 500 mg in 100 mls @ 100 mls/hr IVPB BID [facility] Last Admin: 03/11/18 09:13 Dose: 100 mls/hr Levofloxacin (Levaquin 250 Mg Premixed Ivpb -) 250 mg in 50 mls @ 50 mls/hr IVPB DAILY [facility]; Protocol Last Admin: 03/11/18 09:13 Dose: 50 mls/hr Fentanyl 500 mcg/ Dextrose 100 mls @ 5 mls/hr IVPB TITR [facility]; Protocol Last Admin: 03/11/18 08:32 Dose: 50 mcg/hr, 10 mls/hr Lactobacillus Acidophilus (Bacid -) 1 tab PO DAILY [facility] Last Admin: 03/11/18 09:12 Dose: 1 tab Metoprolol Tartrate (Lopressor Injection -) 5 mg IVPUSH Q8H PRN PRN Reason: TACHYCARDIA Last Admin: 03/10/18 01:03 Dose: 5 mg Metoprolol Tartrate (Lopressor -) 25 mg NGT BID [facility] Last Admin: 03/11/18 09:14 Dose: 25 mg Pantoprazole Sodium (Protonix Iv) 40 mg IVPUSH BID [facility] Last Admin: 03/11/18 09:15 Dose: 40 mg Rifaximin (Xifaxan -) 550 mg PO BID [facility] Last Admin: 03/11/18 09:13 Dose: 550 mg Sodium Bicarbonate (Sodium Bicarbonate -) 650 mg NGT DAILY [facility] Last Admin: 03/11/18 09:13 Dose: 650 mg Thiamine HCl (Vitamin B1 -) 100 mg PO DAILY [facility] Last Admin: 03/11/18 09:13 Dose: 100 mg - Objective Vital Signs: Vital Signs Temperature 98.2 F 03/11/18 06:00 Pulse Rate 102 H 03/11/18 09:35 Respiratory Rate 18 03/11/18 11:15 Blood Pressure 115/78 03/11/18 09:35 O2 Sat by Pulse Oximetry (%) 99 03/11/18 09:00 Constitutional: Yes: Other Cardiovascular: Yes: Pulse Irregular Respiratory: Yes: Intubated Gastrointestinal: Yes: Soft Genitourinary: Yes: Brenner Present Musculoskeletal: Yes: Muscle Weakness Labs: CBC, BMP 03/10/18 05:30 03/10/18 05:30 INR, PTT INR 1.47 (0.83-1.09) H 03/11/18 05:30 Fibrinogen 117.0 mg/dL (238-498) L D 03/10/18 13:45 Problem List - Problems (1) MELITA (acute kidney injury) Code(s): N17.9 - ACUTE KIDNEY FAILURE, UNSPECIFIED (2) Atrial fibrillation with RVR Code(s): I48.91 - UNSPECIFIED ATRIAL FIBRILLATION (3) Hyperlipidemia Code(s): E78.5 - HYPERLIPIDEMIA, UNSPECIFIED Qualifiers: Hyperlipidemia type: pure hypercholesterolemia Qualified Code(s): E78.00 - Pure hypercholesterolemia, unspecified; E78.0 - Pure hypercholesterolemia (4) Hypothermia Code(s): T68.XXXA - HYPOTHERMIA, INITIAL ENCOUNTER Qualifiers: Encounter type: initial encounter Qualified Code(s): T68.XXXA - Hypothermia , initial encounter (5) Kgtsf-fr-qlszhqd kidney injury Code(s): N17.9 - ACUTE KIDNEY FAILURE, UNSPECIFIED; N18.9 - CHRONIC KIDNEY DISEASE, UNSPECIFIED Qualifiers: Acute renal failure type: unspecified Chronic kidney disease stage: unspecified stage Qualified Code(s): N17.9 - Acute kidney failure, unspecified ; N18.9 - Chronic kidney disease, unspecified (6) Generalized weakness Code(s): R53.1 - WEAKNESS (7) History of ETOH abuse Code(s): Z87.898 - PERSONAL HISTORY OF OTHER SPECIFIED CONDITIONS (8) Hypercalcemia Code(s): E83.52 - HYPERCALCEMIA (9) Hypertrophic cardiomyopathy Code(s): I42.2 - OTHER HYPERTROPHIC CARDIOMYOPATHY (10) Toxic metabolic encephalopathy Code(s): G92 - TOXIC ENCEPHALOPATHY (11) Sepsis Code(s): A41.9 - SEPSIS, UNSPECIFIED ORGANISM (12) Respiratory failure Code(s): J96.90 - RESPIRATORY FAILURE, UNSP, UNSP W HYPOXIA OR HYPERCAPNIA Assessment/Plan NOW VENT DEPENDENT INTUBATED FOR MANY DAYS WILL NEED TRACHEOSTOMY. AWAITING MEDICALLY CLEARED FOR TRACHEOSTOMY BENEFIT OUTWEIGHS THE RISK INR TO BE ADJUSTED WIT HEMATOLOGY. IV ABX CONTINUE PER ID. 02 SUPPORT 40% O2 UNABLE TO WEAN OFF VENT. CARDIO F/U ON HEPARIN IV FOR AC. MONITOR LABS, FREQUENT TURNING AND OFF LOADING TO PREVENT SKIN BREAK DOWN NGT FEEDS, AMINO ACIDS FOR PROTEIN AND PREVENT SKIN ULCERS. ADVANCED DIRECTIVES UNCLEAR, AWAIT FAMILY DECISION AT THIS PROGNOSIS IS POOR FOR A FULL MEANINGFUL RECOVERY LABS DAILY MONITOR ELECTROLYTES. NEURO EVAL MVI/THIAMINE CONTINUE AGREE WITH PULMONARY TO DECREASE SEDATION TO EVALUATE MENTAL STATUS
--- NOTE | 2018-03-11 12:31 | PN ---
Progress Note, Physician Chief Complaint: Events noted Remains on mechanical ventilation History of Present Illness: Patient was seen and examined in ICU. Remains on vent support. Chart was reviewed AF with RVR - Current Medication List Current Medications: Active Medications Acetaminophen (Tylenol -) 650 mg PO Q6H PRN PRN Reason: PAIN LEVEL 1 - 3 Last Admin: 03/02/18 03:13 Dose: 650 mg Allopurinol (Zyloprim -) 100 mg PO BID [facility] Last Admin: 03/11/18 09:13 Dose: 100 mg Chlorhexidine Gluconate (Peridex -) 15 ml MM BID [facility] Last Admin: 03/11/18 09:15 Dose: 15 ml Cholecalciferol (Vitamin D3 -) 1,000 unit PO DAILY [facility] Last Admin: 03/11/18 09:13 Dose: 1,000 unit Diphenhydramine HCl (Benadryl Injection -) 25 mg IVPB ONCE PRN PRN Reason: DURING PLASMAPHERESIS Metronidazole (Flagyl 500mg Premixed Ivpb -) 500 mg in 100 mls @ 100 mls/hr IVPB BID [facility] Last Admin: 03/11/18 09:13 Dose: 100 mls/hr Levofloxacin (Levaquin 250 Mg Premixed Ivpb -) 250 mg in 50 mls @ 50 mls/hr IVPB DAILY [facility]; Protocol Last Admin: 03/11/18 09:13 Dose: 50 mls/hr Fentanyl 500 mcg/ Dextrose 100 mls @ 5 mls/hr IVPB TITR [facility]; Protocol Last Admin: 03/11/18 08:32 Dose: 50 mcg/hr, 10 mls/hr Lactobacillus Acidophilus (Bacid -) 1 tab PO DAILY [facility] Last Admin: 03/11/18 09:12 Dose: 1 tab Metoprolol Tartrate (Lopressor Injection -) 5 mg IVPUSH Q8H PRN PRN Reason: TACHYCARDIA Last Admin: 03/10/18 01:03 Dose: 5 mg Metoprolol Tartrate (Lopressor -) 25 mg NGT BID [facility] Last Admin: 03/11/18 09:14 Dose: 25 mg Pantoprazole Sodium (Protonix Iv) 40 mg IVPUSH BID [facility] Last Admin: 03/11/18 09:15 Dose: 40 mg Rifaximin (Xifaxan -) 550 mg PO BID [facility] Last Admin: 03/11/18 09:13 Dose: 550 mg Sodium Bicarbonate (Sodium Bicarbonate -) 650 mg NGT DAILY [facility] Last Admin: 03/11/18 09:13 Dose: 650 mg Thiamine HCl (Vitamin B1 -) 100 mg PO DAILY [facility] Last Admin: 03/11/18 09:13 Dose: 100 mg - Objective Vital Signs: Vital Signs Temperature 98.2 F 03/11/18 06:00 Pulse Rate 102 H 03/11/18 09:35 Respiratory Rate 18 03/11/18 11:15 Blood Pressure 115/78 03/11/18 09:35 O2 Sat by Pulse Oximetry (%) 99 03/11/18 09:00 Cardiovascular: Yes: Pulse Irregular, S1, S2 Respiratory: Yes: Diminished, Mechanically Ventilated Gastrointestinal: Yes: Soft. No: Tenderness Edema: No Labs: CBC, BMP 03/10/18 05:30 03/10/18 05:30 INR, PTT INR 1.47 (0.83-1.09) H 03/11/18 05:30 Fibrinogen 117.0 mg/dL (238-498) L D 03/10/18 13:45 Problem List - Problems (1) Anemia Code(s): D64.9 - ANEMIA, UNSPECIFIED (2) Hyperlipidemia Code(s): E78.5 - HYPERLIPIDEMIA, UNSPECIFIED Qualifiers: Hyperlipidemia type: pure hypercholesterolemia Qualified Code(s): E78.00 - Pure hypercholesterolemia, unspecified; E78.0 - Pure hypercholesterolemia (3) Multiple myeloma Code(s): C90.00 - MULTIPLE MYELOMA NOT HAVING ACHIEVED REMISSION Qualifiers: Multiple myeloma remission status: not in remission Qualified Code(s): C90.00 - Multiple myeloma not having achieved remission (4) Respiratory failure Code(s): J96.90 - RESPIRATORY FAILURE, UNSP, UNSP W HYPOXIA OR HYPERCAPNIA (5) Sepsis Code(s): A41.9 - SEPSIS, UNSPECIFIED ORGANISM (6) Toxic metabolic encephalopathy Code(s): G92 - TOXIC ENCEPHALOPATHY (7) Pkxbv-fo-cxntbhn kidney injury Code(s): N17.9 - ACUTE KIDNEY FAILURE, UNSPECIFIED; N18.9 - CHRONIC KIDNEY DISEASE, UNSPECIFIED Qualifiers: Acute renal failure type: unspecified Chronic kidney disease stage: unspecified stage Qualified Code(s): N17.9 - Acute kidney failure, unspecified ; N18.9 - Chronic kidney disease, unspecified (8) Demand ischemia Code(s): I24.8 - OTHER FORMS OF ACUTE ISCHEMIC HEART DISEASE (9) History of ETOH abuse Code(s): Z87.898 - PERSONAL HISTORY OF OTHER SPECIFIED CONDITIONS (10) Nonadherence to medication Code(s): Z91.14 - PATIENT'S OTHER NONCOMPLIANCE WITH MEDICATION REGIMEN (11) Paraproteinemia Code(s): D89.2 - HYPERGAMMAGLOBULINEMIA, UNSPECIFIED (12) Persistent atrial fibrillation Code(s): I48.1 - PERSISTENT ATRIAL FIBRILLATION (13) Chronic thromboembolic disease Code(s): I74.9 - EMBOLISM AND THROMBOSIS OF UNSPECIFIED ARTERY (14) Coronary artery disease Code(s): I25.10 - ATHSCL HEART DISEASE OF [place] CORONARY ARTERY W/O ANG PCTRS Qualifiers: Coronary Disease-Associated Artery/Lesion type: [place] artery [place] vs. transplanted heart: [place] heart Associated angina: without angina Qualified Code(s): I25.10 - Atherosclerotic heart disease of [place] coronary artery without angina pectoris (15) Diastolic dysfunction without heart failure Code(s): I51.9 - HEART DISEASE, UNSPECIFIED (16) HTN (hypertension) Code(s): I10 - ESSENTIAL (PRIMARY) HYPERTENSION Qualifiers: Hypertension type: essential hypertension Qualified Code(s): I10 - Essential (primary) hypertension (17) Hypertrophic cardiomyopathy Code(s): I42.2 - OTHER HYPERTROPHIC CARDIOMYOPATHY Assessment/Plan 1. Acute hypoxic respiratory failure, suspected aspiration pneumonia with sepsis syndrome, remains intubated 2. Toxic metabolic encephelopathy, rule out CVA 3. Acute on CKD 4. Paraproteinemia confirmed multiple myeloma 5. History of bilateral SFA occlusion post thrombectomy, most likely embolic disease related to persistent atrial fibrillation with [id number] score of 6 6. CAD with evidence of demand ischemic injury, non obstructive CAD on [facility] coronary angiogrpahy angina pectoris 7. 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 Persistent atrial fibrillation [id number] score of 6 9. HTN 10. Anemia/thrombocytopenia 11. Acalculous Cholecystitis 12. Ischemic hepatitis 13. Resolved Hypernatremia PLAN: 1. Consider A/C therapy unless it is absolutely contraindicated considering his [id number] score of 6 and stroke risk 2. Lopressor 25 bid as hemodynamics permit 3. Antibiotics coverage 4. Ventilator management as per the ICU team 5. Await tracheostomy (possibly Monday) and PEG as per family Guarded Eliel Sam MD
[2018-03-11] MEDS: ACETAMINOPHEN 325 MG TABLET (FP) PO PRN (12:33)
--- NOTE | 2018-03-11 17:53 | PN ---
Progress Note (short form) - Note Progress Note: Covering dr dejesus Problems MELITA presenting as AMS/Confusion CKD, Afib on A/C, CAD, CKD, Hypertension, Hyperlipidemia, PVD #MELITA ATN vs. 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 tubular injury, US showed no stones or obstruction, UA w/o protein but UPCR ~0.5 indicating non-albumin proteinuria) multiple myloma new Anemia Hypercalcemia of Malignancy Hyperdense lesion on US of the kidney Normal anion gap metabolic acidosis Hyperkalemia resolved Current Medications Acetaminophen (Tylenol -) 650 mg PO Q6H PRN PRN Reason: PAIN LEVEL 1 - 3 Last Admin: 03/11/18 12:33 Dose: 650 mg Allopurinol (Zyloprim -) 100 mg PO BID [facility] Last Admin: 03/11/18 09:13 Dose: 100 mg Chlorhexidine Gluconate (Peridex -) 15 ml MM BID [facility] Last Admin: 03/11/18 09:15 Dose: 15 ml Cholecalciferol (Vitamin D3 -) 1,000 unit PO DAILY [facility] Last Admin: 03/11/18 09:13 Dose: 1,000 unit Diphenhydramine HCl (Benadryl Injection -) 25 mg IVPB ONCE PRN PRN Reason: DURING PLASMAPHERESIS Metronidazole (Flagyl 500mg Premixed Ivpb -) 500 mg in 100 mls @ 100 mls/hr IVPB BID [facility] Last Admin: 03/11/18 09:13 Dose: 100 mls/hr Levofloxacin (Levaquin 250 Mg Premixed Ivpb -) 250 mg in 50 mls @ 50 mls/hr IVPB DAILY [facility]; Protocol Last Admin: 03/11/18 09:13 Dose: 50 mls/hr Fentanyl 500 mcg/ Dextrose 100 mls @ 5 mls/hr IVPB TITR [facility]; Protocol Last Admin: 03/11/18 08:32 Dose: 50 mcg/hr, 10 mls/hr Lactobacillus Acidophilus (Bacid -) 1 tab PO DAILY [facility] Last Admin: 03/11/18 09:12 Dose: 1 tab Metoprolol Tartrate (Lopressor Injection -) 5 mg IVPUSH Q8H PRN PRN Reason: TACHYCARDIA Last Admin: 03/10/18 01:03 Dose: 5 mg Metoprolol Tartrate (Lopressor -) 25 mg NGT BID [facility] Last Admin: 03/11/18 09:14 Dose: 25 mg Pantoprazole Sodium (Protonix Iv) 40 mg IVPUSH BID [facility] Last Admin: 03/11/18 09:15 Dose: 40 mg Phytonadione ([place] Injection -) 5 mg SQ DAILY [facility] Stop: 03/14/18 17:59 Rifaximin (Xifaxan -) 550 mg PO BID [facility] Last Admin: 03/11/18 09:13 Dose: 550 mg Sodium Bicarbonate (Sodium Bicarbonate -) 650 mg NGT DAILY [facility] Last Admin: 03/11/18 09:13 Dose: 650 mg Thiamine HCl (Vitamin B1 -) 100 mg PO DAILY [facility] Last Admin: 03/11/18 09:13 Dose: 100 mg Last Vital Signs Temp Pulse Resp BP Pulse Ox 99.8 F H 91 H 18 91/69 99 03/11/18 12:00 03/11/18 12:00 03/11/18 16:15 03/11/18 12:00 03/11/18 09:00 on vent lungs vented sounds heart reg s1s2 abd soft ext no edema CBC, BMP 03/10/18 05:30 03/10/18 05:30 IMP- resp on vent for trach on monday mild prerenal continue to monitor volume and renal function Renal function stable at this time continue supportive care tube feeds with free water start sodium bicarb daily trend renal function ane electrolytes
[2018-03-11] MEDS: PHYTONADIONE 10 MG/1 ML AMP SQ SCH (18:19)
--- NOTE | 2018-03-11 21:51 | PN ---
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 K May need FFP prior to procedure discussed with house staff
[2018-03-12 06:37] LABS: ALK PHOS 157 U/L (45-117); ANION GAP 6 MMOL/L (8-16); BILIRUBIN,TOTAL 0.5 mg/dL (0.2-1); BLOOD UREA NITROGEN 39 mg/dL (7-18); CHLORIDE 117 mmol/L (98-107); CO2 20 mmol/L (21-32); CREATININE 1.2 mg/dL (0.55-1.3); GLUCOSE,RANDOM 87 mg/dL (74-106); MAGNESIUM 1.6 mg/dL (1.8-2.4); PHOSPHOROUS 3.2 mg/dL (2.5-4.9); POTASSIUM 4.8 mmol/L (3.5-5.1); SGOT/AST 38 U/L (15-37); SGPT/ALT 23 U/L (13-61); SODIUM 142 mmol/L (136-145); TOT PROT 8.6 g/dl (6.4-8.2)
[2018-03-12 06:48] LABS: CALCIUM 6.8 mg/dL (8.5-10.1)
[2018-03-12 06:52] LABS: BASO % 1.3 % (0-2.0); EOS % 2.7 % (0-4.5); HEMATOCRIT 25.3 % (35.4-49); HEMOGLOBIN 8.2 GM/dL (11.7-16.9); LYMPH % 24.5 % (8-40); MCH 29.6 pg (25.7-33.7); MCHC 32.5 g/dl (32.0-35.9); MEAN CELL VOLUME 91.1 fl (80-96); MEAN PLT VOLUME 9.9 fl (7.5-11.1); MONO % 5.1 % (3.8-10.2); NEUT % 66.4 % (42.8-82.8); PLATELET COUNT 146 K/MM3 (134-434); RBC 2.78 M/mm3 (4.00-5.60)
[2018-03-12 06:54] LABS: INR 1.54 (0.83-1.09); PROTHROMBIN TIME (PATIENT) 18.3 SEC (9.7-13.0)
[2018-03-12 06:57] LABS: ACTIVATED PTT 18.9 SECONDS (25.2-36.5)
[2018-03-12] MEDS ORDERED: MAGNESIUM OXIDE 400 MG TABLET (FP) PO ONE (07:20)
[2018-03-12 07:29] LABS: WHITE BLOOD COUNT 4.6 K/mm3 (4.0-10.0)
--- NOTE | 2018-03-12 09:02 | PN ---
Progress Note, Physician - Current Medication List Current Medications: Active Medications Acetaminophen (Tylenol -) 650 mg PO Q6H PRN PRN Reason: PAIN LEVEL 1 - 3 Last Admin: 03/11/18 12:33 Dose: 650 mg Allopurinol (Zyloprim -) 100 mg PO BID [facility] Last Admin: 03/11/18 21:44 Dose: 100 mg Chlorhexidine Gluconate (Peridex -) 15 ml MM BID [facility] Last Admin: 03/11/18 21:44 Dose: 15 ml Cholecalciferol (Vitamin D3 -) 1,000 unit PO DAILY [facility] Last Admin: 03/11/18 09:13 Dose: 1,000 unit Diphenhydramine HCl (Benadryl Injection -) 25 mg IVPB ONCE PRN PRN Reason: DURING PLASMAPHERESIS Levofloxacin (Levaquin 250 Mg Premixed Ivpb -) 250 mg in 50 mls @ 50 mls/hr IVPB DAILY [facility]; Protocol Last Admin: 03/11/18 09:13 Dose: 50 mls/hr Fentanyl 500 mcg/ Dextrose 100 mls @ 5 mls/hr IVPB TITR [facility]; Protocol Last Admin: 03/11/18 21:43 Dose: Not Given Lactobacillus Acidophilus (Bacid -) 1 tab PO DAILY [facility] Last Admin: 03/11/18 09:12 Dose: 1 tab Metoprolol Tartrate (Lopressor Injection -) 5 mg IVPUSH Q8H PRN PRN Reason: TACHYCARDIA Last Admin: 03/10/18 01:03 Dose: 5 mg Metoprolol Tartrate (Lopressor -) 25 mg NGT BID [facility] Last Admin: 03/11/18 21:44 Dose: 25 mg Pantoprazole Sodium (Protonix Iv) 40 mg IVPUSH BID [facility] Last Admin: 03/11/18 21:44 Dose: 40 mg Phytonadione (Aqua Mephyton Injection -) 5 mg SQ DAILY [facility] Stop: 03/14/18 17:59 Last Admin: 03/11/18 18:19 Dose: 5 mg Rifaximin (Xifaxan -) 550 mg PO BID [facility] Last Admin: 03/11/18 21:44 Dose: 550 mg Sodium Bicarbonate (Sodium Bicarbonate -) 650 mg NGT DAILY [facility] Last Admin: 03/11/18 09:13 Dose: 650 mg Thiamine HCl (Vitamin B1 -) 100 mg PO DAILY [facility] Last Admin: 03/11/18 09:13 Dose: 100 mg - Objective Vital Signs: Vital Signs Temperature 99.2 F 03/12/18 06:00 Pulse Rate 108 H 03/12/18 08:00 Respiratory Rate 18 03/12/18 08:00 Blood Pressure 106/74 03/12/18 08:00 O2 Sat by Pulse Oximetry (%) 96 03/12/18 08:37 Cardiovascular: Yes: S2, S3 Respiratory: Yes: Mechanically Ventilated Gastrointestinal: Yes: Normal Bowel Sounds, Soft Labs: CBC, BMP 03/12/18 05:30 03/12/18 05:30 INR, PTT INR 1.54 (0.83-1.09) H 03/12/18 05:30 Fibrinogen 323.0 mg/dL (238-498) D 03/11/18 13:20 Problem List - Problems (1) Toxic metabolic encephalopathy Code(s): G92 - TOXIC ENCEPHALOPATHY (2) Cellulitis Code(s): L03.90 - CELLULITIS, UNSPECIFIED Qualifiers: Site of cellulitis: extremity Site of cellulitis of extremity: lower extremity Laterality: right Qualified Code(s): L03.115 - Cellulitis of right lower limb (3) Sepsis Code(s): A41.9 - SEPSIS, UNSPECIFIED ORGANISM (4) Artery occlusion Code(s): I70.90 - UNSPECIFIED ATHEROSCLEROSIS (5) Hypercalcemia Code(s): E83.52 - HYPERCALCEMIA (6) Paroxysmal atrial fibrillation Code(s): I48.0 - PAROXYSMAL ATRIAL FIBRILLATION (7) MELITA (acute kidney injury) Code(s): N17.9 - ACUTE KIDNEY FAILURE, UNSPECIFIED Assessment/Plan (1) MELITA (acute kidney injury) Assessment/Plan: potassium now normal range- hyperkalemia improved ultrasound hyperdense lesion noted in left renal cortex Code(s): N17.9 - ACUTE KIDNEY FAILURE, UNSPECIFIED (2) Atrial fibrillation with RVR Assessment/Plan: heparin drip --dc due to anemia phototypesetting equipment monitor rate control with metoprolol (3) Respiratory failure Assessment/Plan: intubated--for Trach today propofol/fentanyl family decision for tracheostomy Code(s): J96.90 - RESPIRATORY FAILURE, UNSP, UNSP W HYPOXIA OR HYPERCAPNIA (5) Toxic metabolic encephalopathy Assessment/Plan: Microbiology S/p Rx for PNA Code(s): G92 - TOXIC ENCEPHALOPATHY (6) Anemia Assessment/Plan: -Hold Heparin -Transfuse
[2018-03-12] MEDS: ALLOPURINOL 100 MG TABLET (FP) PO SCH ×2 (09:39→21:13)
[2018-03-12] MEDS: THIAMINE HCL 100 MG TABLET (FP) PO SCH (09:39)
[2018-03-12] MEDS: PHYTONADIONE 10 MG/1 ML AMP SQ SCH (09:39)
[2018-03-12] MEDS: SODIUM BICARBONATE 650 MG TABLET NGT SCH (09:39)
[2018-03-12] MEDS: METOPROLOL TARTRATE 25 MG TABLET (FP) NGT SCH ×2 (09:39→21:14)
[2018-03-12] MEDS: PANTOPRAZOLE SODIUM 40 MG VIAL IVPUSH SCH ×2 (09:39→21:12)
[2018-03-12] MEDS: LACTOBACILLUS ACIDOPHILUS 1 TABLET PO SCH (09:39)
[2018-03-12] MEDS: RIFAXIMIN 550 MG TABLET (UD) PO SCH ×2 (09:40→21:13)
[2018-03-12] MEDS: CHOLECALCIFEROL (VITAMIN D3) 1,000 UNIT TABLET (FP) PO SCH (09:40)
--- NOTE | 2018-03-12 10:00 | PN ---
Progress Note, Physician History of Present Illness: Awaiting tracheostomy Now with fever past 24hr Minimally resposive on ventilatory Blinks when calling name - Current Medication List Current Medications: Active Medications Acetaminophen (Tylenol -) 650 mg PO Q6H PRN PRN Reason: PAIN LEVEL 1 - 3 Last Admin: 03/11/18 12:33 Dose: 650 mg Allopurinol (Zyloprim -) 100 mg PO BID [facility] Last Admin: 03/12/18 09:39 Dose: 100 mg Chlorhexidine Gluconate (Peridex -) 15 ml MM BID [facility] Last Admin: 03/11/18 21:44 Dose: 15 ml Cholecalciferol (Vitamin D3 -) 1,000 unit PO DAILY [facility] Last Admin: 03/12/18 09:40 Dose: 1,000 unit Diphenhydramine HCl (Benadryl Injection -) 25 mg IVPB ONCE PRN PRN Reason: DURING PLASMAPHERESIS Levofloxacin (Levaquin 250 Mg Premixed Ivpb -) 250 mg in 50 mls @ 50 mls/hr IVPB DAILY [facility]; Protocol Last Admin: 03/12/18 09:38 Dose: 50 mls/hr Fentanyl 500 mcg/ Dextrose 100 mls @ 5 mls/hr IVPB TITR [facility]; Protocol Last Admin: 03/11/18 21:43 Dose: Not Given Lactobacillus Acidophilus (Bacid -) 1 tab PO DAILY [facility] Last Admin: 03/12/18 09:39 Dose: 1 tab Metoprolol Tartrate (Lopressor Injection -) 5 mg IVPUSH Q8H PRN PRN Reason: TACHYCARDIA Last Admin: 03/10/18 01:03 Dose: 5 mg Metoprolol Tartrate (Lopressor -) 25 mg NGT BID [facility] Last Admin: 03/12/18 09:39 Dose: 25 mg Pantoprazole Sodium (Protonix Iv) 40 mg IVPUSH BID [facility] Last Admin: 03/12/18 09:39 Dose: 40 mg Phytonadione (Aqua Mephyton Injection -) 5 mg SQ DAILY [facility] Stop: 03/14/18 17:59 Last Admin: 03/12/18 09:39 Dose: 5 mg Rifaximin (Xifaxan -) 550 mg PO BID [facility] Last Admin: 03/12/18 09:40 Dose: 550 mg Sodium Bicarbonate (Sodium Bicarbonate -) 650 mg NGT DAILY [facility] Last Admin: 03/12/18 09:39 Dose: 650 mg Thiamine HCl (Vitamin B1 -) 100 mg PO DAILY [facility] Last Admin: 03/12/18 09:39 Dose: 100 mg - Objective Vital Signs: Vital Signs Temperature 99.2 F 03/12/18 06:00 Pulse Rate 108 H 03/12/18 08:00 Respiratory Rate 19 03/12/18 08:20 Blood Pressure 106/74 03/12/18 08:00 O2 Sat by Pulse Oximetry (%) 96 03/12/18 08:37 Constitutional: Yes: No Distress Eyes: Yes: Conjunctiva Clear Cardiovascular: Yes: Regular Rate and Rhythm, S1, S2 Respiratory: Yes: Mechanically Ventilated Gastrointestinal: Yes: Normal Bowel Sounds, Soft. No: Tenderness Edema: Yes Labs: CBC, BMP 03/12/18 05:30 03/12/18 05:30 INR, PTT INR 1.54 (0.83-1.09) H 03/12/18 05:30 Fibrinogen 233.0 mg/dL (238-498) L D 03/12/18 05:30 Assessment/Plan Respiratory failure RLL pneumonia Acalculus Cholecystitis Toxic metabolic encephalopathy Renal failure Myeloma Hyperviscosity syndrome Diarrhea Continue levaquin / flagyl For tracheostomy Repeat BC Ventilatory support Prognosis poor
--- NOTE | 2018-03-12 10:24 | PN ---
Progress Note, Physician Chief Complaint: Events noted Remains on mechanical ventilation History of Present Illness: Patient was seen and examined in ICU. Remains on vent support. Chart was reviewed AF with RVR - Current Medication List Current Medications: Active Medications Acetaminophen (Tylenol -) 650 mg PO Q6H PRN PRN Reason: PAIN LEVEL 1 - 3 Last Admin: 03/11/18 12:33 Dose: 650 mg Allopurinol (Zyloprim -) 100 mg PO BID [facility] Last Admin: 03/12/18 09:39 Dose: 100 mg Chlorhexidine Gluconate (Peridex -) 15 ml MM BID [facility] Last Admin: 03/11/18 21:44 Dose: 15 ml Cholecalciferol (Vitamin D3 -) 1,000 unit PO DAILY [facility] Last Admin: 03/12/18 09:40 Dose: 1,000 unit Diphenhydramine HCl (Benadryl Injection -) 25 mg IVPB ONCE PRN PRN Reason: DURING PLASMAPHERESIS Levofloxacin (Levaquin 250 Mg Premixed Ivpb -) 250 mg in 50 mls @ 50 mls/hr IVPB DAILY [facility]; Protocol Last Admin: 03/12/18 09:38 Dose: 50 mls/hr Fentanyl 500 mcg/ Dextrose 100 mls @ 5 mls/hr IVPB TITR [facility]; Protocol Last Admin: 03/11/18 21:43 Dose: Not Given Metronidazole (Flagyl 500mg Premixed Ivpb -) 500 mg in 100 mls @ 100 mls/hr IVPB Q8H-IV [facility] Lactobacillus Acidophilus (Bacid -) 1 tab PO DAILY [facility] Last Admin: 03/12/18 09:39 Dose: 1 tab Metoprolol Tartrate (Lopressor Injection -) 5 mg IVPUSH Q8H PRN PRN Reason: TACHYCARDIA Last Admin: 03/10/18 01:03 Dose: 5 mg Metoprolol Tartrate (Lopressor -) 25 mg NGT BID [facility] Last Admin: 03/12/18 09:39 Dose: 25 mg Pantoprazole Sodium (Protonix Iv) 40 mg IVPUSH BID [facility] Last Admin: 03/12/18 09:39 Dose: 40 mg Phytonadione (Aqua Mephyton Injection -) 5 mg SQ DAILY [facility] Stop: 03/14/18 17:59 Last Admin: 03/12/18 09:39 Dose: 5 mg Rifaximin (Xifaxan -) 550 mg PO BID [facility] Last Admin: 03/12/18 09:40 Dose: 550 mg Sodium Bicarbonate (Sodium Bicarbonate -) 650 mg NGT DAILY [facility] Last Admin: 03/12/18 09:39 Dose: 650 mg Thiamine HCl (Vitamin B1 -) 100 mg PO DAILY [facility] Last Admin: 03/12/18 09:39 Dose: 100 mg - Objective Vital Signs: Vital Signs Temperature 99.2 F 03/12/18 06:00 Pulse Rate 108 H 03/12/18 08:00 Respiratory Rate 19 03/12/18 08:20 Blood Pressure 106/74 03/12/18 08:00 O2 Sat by Pulse Oximetry (%) 96 03/12/18 08:37 Neck: Yes: Supple Cardiovascular: Yes: Pulse Irregular, S1, S2 Respiratory: Yes: Mechanically Ventilated Gastrointestinal: Yes: Normal Bowel Sounds, Soft. No: Tenderness Edema: No Labs: CBC, BMP 03/12/18 05:30 03/12/18 05:30 INR, PTT INR 1.54 (0.83-1.09) H 03/12/18 05:30 Fibrinogen 233.0 mg/dL (238-498) L D 03/12/18 05:30 Problem List - Problems (1) Anemia Code(s): D64.9 - ANEMIA, UNSPECIFIED (2) Hyperlipidemia Code(s): E78.5 - HYPERLIPIDEMIA, UNSPECIFIED Qualifiers: Hyperlipidemia type: pure hypercholesterolemia Qualified Code(s): E78.00 - Pure hypercholesterolemia, unspecified; E78.0 - Pure hypercholesterolemia (3) Multiple myeloma Code(s): C90.00 - MULTIPLE MYELOMA NOT HAVING ACHIEVED REMISSION Qualifiers: Multiple myeloma remission status: not in remission Qualified Code(s): C90.00 - Multiple myeloma not having achieved remission (4) Respiratory failure Code(s): J96.90 - RESPIRATORY FAILURE, UNSP, UNSP W HYPOXIA OR HYPERCAPNIA (5) Sepsis Code(s): A41.9 - SEPSIS, UNSPECIFIED ORGANISM (6) Toxic metabolic encephalopathy Code(s): G92 - TOXIC ENCEPHALOPATHY (7) [id number]-[id number] kidney injury Code(s): N17.9 - ACUTE KIDNEY FAILURE, UNSPECIFIED; N18.9 - CHRONIC KIDNEY DISEASE, UNSPECIFIED Qualifiers: Acute renal failure type: unspecified Chronic kidney disease stage: unspecified stage Qualified Code(s): N17.9 - Acute kidney failure, unspecified ; N18.9 - Chronic kidney disease, unspecified (8) Demand ischemia Code(s): I24.8 - OTHER FORMS OF ACUTE ISCHEMIC HEART DISEASE (9) History of ETOH abuse Code(s): Z87.898 - PERSONAL HISTORY OF OTHER SPECIFIED CONDITIONS (10) Nonadherence to medication Code(s): Z91.14 - PATIENT'S OTHER NONCOMPLIANCE WITH MEDICATION REGIMEN (11) Paraproteinemia Code(s): D89.2 - HYPERGAMMAGLOBULINEMIA, UNSPECIFIED (12) Persistent atrial fibrillation Code(s): I48.1 - PERSISTENT ATRIAL FIBRILLATION (13) Chronic thromboembolic disease Code(s): I74.9 - EMBOLISM AND THROMBOSIS OF UNSPECIFIED ARTERY (14) Coronary artery disease Code(s): I25.10 - ATHSCL HEART DISEASE OF [place] CORONARY ARTERY W/O ANG PCTRS Qualifiers: Coronary Disease-Associated Artery/Lesion type: [place] artery [place] vs. transplanted heart: [place] heart Associated angina: without angina Qualified Code(s): I25.10 - Atherosclerotic heart disease of [place] coronary artery without angina pectoris (15) Diastolic dysfunction without heart failure Code(s): I51.9 - HEART DISEASE, UNSPECIFIED (16) HTN (hypertension) Code(s): I10 - ESSENTIAL (PRIMARY) HYPERTENSION Qualifiers: Hypertension type: essential hypertension Qualified Code(s): I10 - Essential (primary) hypertension (17) Hypertrophic cardiomyopathy Code(s): I42.2 - OTHER HYPERTROPHIC CARDIOMYOPATHY Assessment/Plan 1. Acute hypoxic respiratory failure, suspected aspiration pneumonia with sepsis syndrome, remains intubated 2. Toxic metabolic encephalopathy, rule out CVA 3. Acute on CKD 4. Paraproteinemia confirmed multiple myeloma 5. History of bilateral SFA occlusion post thrombectomy, most likely embolic disease related to persistent atrial fibrillation 6. CAD with evidence of demand ischemia, non obstructive CAD 7. 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 Persistent atrial fibrillation [id number] score of 6 9. HTN 10. Anemia/thrombocytopenia 11. Acalculous Cholecystitis 12. Ischemic hepatitis 13. Resolved Hypernatremia PLAN: 1. Consider A/C therapy unless it is absolutely contraindicated considering his [id number] score of 6 and stroke risk 2. Lopressor 25 bid as hemodynamics permit 3. Antibiotics coverage 4. Ventilator management as per the ICU team 5. Await tracheostomy and PEG as per family Guarded Eliel Sam MD
[2018-03-12] MEDS: CHLORHEXIDINE GLUCONATE 0.12% 15ML CUP MM SCH ×2 (10:57→21:12)
--- NOTE | 2018-03-12 11:24 | PN ---
Progress Note (short form) - Note Progress Note: PROGRESS NOTE FOR HEMATOLOGY/ONCOLOGY Patient seen and examined by me at bedside Patient with fevers over the weekend Remains intubated Poorly responsive to painful stimuli Plans to trach/Peg patient but continues to have coagulopathy Vital Signs Temperature 99.2 F 03/12/18 10:00 Pulse Rate 102 H 03/12/18 10:00 Respiratory Rate 18 03/12/18 11:17 Blood Pressure 95/52 L 03/12/18 10:00 O2 Sat by Pulse Oximetry (%) 96 03/12/18 08:37 GENERAL: Intubated, poorly responsive LUNGS: bilateral diffuse rhonchi HEART: Tachycardic rate and irregular rhythm. ABDOMEN: Soft, nondistended, normoactive bowel sounds EXTREMITIES: (+) edema and anasarca NEUROLOGICAL: Cannot assess secondary to clinical condition. TUBES/LINES: (+) Rectal Tube, (+) francois catheter Laboratory Results 03/12/18 05:30 03/12/18 05:30 03/12/18 03/12/18 03/12/18 05:30 05:30 05:30 INR 1.54 H PTT (Actin FS) 18.9 L Fibrinogen 233.0 L D Alkaline Phosphatase 157 H Total Protein 8.6 H Albumin 1.0 L ASSESSMENT AND PLAN: Patient is a 77 year old male who presented to the hospital after being found unresponsive by his neighbors. Patient had AMS, MELITA, hypercalcemia and admitted for further monitoring and management. Problem List: Altered mental status Toxic metabolic encephalopathy Multiple Myeloma Coagulopathy Hypercalcemia likely from malignancy MELITA on CKD History of alcohol abuse HTN HLD CAD Afib Diastolic Dysfunction Troponinemia Hypertrophic cardiomypoathy (apical) sepsis secondary to RLL pneumonia acute hypoxemic respiratory failure Vitamin D deficiency Plan: -Plans to have Trach/Peg today but INR >1.5 -Will need 2 Units of FFP and repeat labs -If platelets <100 give platelets -If Fibrinogen <150, give cryo -If INR <1.4, give 2 FFP's
--- NOTE | 2018-03-12 11:31 | PN ---
Progress Note (short form) - Note Progress Note: Renal follow up for Hypercalcemia/MELITA Vital Signs Temperature 99.2 F 03/12/18 10:00 Pulse Rate 102 H 03/12/18 10:00 Respiratory Rate 18 03/12/18 11:17 Blood Pressure 95/52 L 03/12/18 10:00 O2 Sat by Pulse Oximetry (%) 96 03/12/18 08:37 Intake & Output 03/09/18 03/10/18 03/11/18 03/12/18 23:59 23:59 23:59 23:59 Intake Total 2170 1920 2660 570 Output Total 1000 1000 1650 400 Balance 5355 519 7159 170 Weight 99.5 kg 99.5 kg 100.879 kg 102.693 kg CBC, BMP 03/12/18 05:30 03/12/18 05:30 Current Medications Acetaminophen (Tylenol -) 650 mg PO Q6H PRN PRN Reason: PAIN LEVEL 1 - 3 Last Admin: 03/11/18 12:33 Dose: 650 mg Allopurinol (Zyloprim -) 100 mg PO BID [facility] Last Admin: 03/12/18 09:39 Dose: 100 mg Chlorhexidine Gluconate (Peridex -) 15 ml MM BID [facility] Last Admin: 03/12/18 10:57 Dose: 15 ml Cholecalciferol (Vitamin D3 -) 1,000 unit PO DAILY [facility] Last Admin: 03/12/18 09:40 Dose: 1,000 unit Diphenhydramine HCl (Benadryl Injection -) 25 mg IVPB ONCE PRN PRN Reason: DURING PLASMAPHERESIS Levofloxacin (Levaquin 250 Mg Premixed Ivpb -) 250 mg in 50 mls @ 50 mls/hr IVPB DAILY [facility]; Protocol Last Admin: 03/12/18 09:38 Dose: 50 mls/hr Fentanyl 500 mcg/ Dextrose 100 mls @ 5 mls/hr IVPB TITR [facility]; Protocol Last Admin: 03/11/18 21:43 Dose: Not Given Metronidazole (Flagyl 500mg Premixed Ivpb -) 500 mg in 100 mls @ 100 mls/hr IVPB Q8H-IV [facility] Last Admin: 03/12/18 10:56 Dose: 100 mls/hr Lactobacillus Acidophilus (Bacid -) 1 tab PO DAILY [facility] Last Admin: 03/12/18 09:39 Dose: 1 tab Metoprolol Tartrate (Lopressor Injection -) 5 mg IVPUSH Q8H PRN PRN Reason: TACHYCARDIA Last Admin: 03/10/18 01:03 Dose: 5 mg Metoprolol Tartrate (Lopressor -) 25 mg NGT BID [facility] Last Admin: 03/12/18 09:39 Dose: 25 mg Pantoprazole Sodium (Protonix Iv) 40 mg IVPUSH BID [facility] Last Admin: 03/12/18 09:39 Dose: 40 mg Phytonadione (Aqua Mephyton Injection -) 5 mg SQ DAILY [facility] Stop: 03/14/18 17:59 Last Admin: 03/12/18 09:39 Dose: 5 mg Rifaximin (Xifaxan -) 550 mg PO BID [facility] Last Admin: 03/12/18 09:40 Dose: 550 mg Sodium Bicarbonate (Sodium Bicarbonate -) 650 mg NGT DAILY [facility] Last Admin: 03/12/18 09:39 Dose: 650 mg Thiamine HCl (Vitamin B1 -) 100 mg PO DAILY [facility] Last Admin: 03/12/18 09:39 Dose: 100 mg 77 year old gentleman with hx of CKD, Afib on A/C, CAD, CKD, Hypertension, Hyperlipidemia, PVD who presented with AMS/Confusion and found to have MELITA. #MELITA ATN vs. 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 tubular injury, US showed no stones or obstruction, UA w/o protein but UPCR ~0.5 indicating non- albumin proteinuria) #AMS #Newly diagnosed multiple myloma #Anemia #Hypercalcemia of Malignancy (PTH is low) #Hyperdense lesion on US of the kidney #Normal anion gap metabolic acidosis #Hyperkalemia (now resolved) Mack Miller DO
[2018-03-12 11:41] LABS: CORRECTED WBC 4.07 K/mm3
[2018-03-12] MEDS ORDERED: PROPOFOL 1,000,000 MCG/100 ML VIAL IVPB SCH (11:45)
--- NOTE | 2018-03-12 11:45 | PN ---
Teaching Attending Note Name of Resident: Bola Griffith ATTENDING PHYSICIAN STATEMENT I saw and evaluated the patient. I reviewed the resident's note and discussed the case with the resident. I agree with the resident's findings and plan as documented. SUBJECTIVE: Patient seen and examined in the ICU. Remains intubated, poorly responsive. Family decision to proceed with tracheostomy. OBJECTIVE: Intake & Output 03/09/18 03/10/18 03/11/18 03/12/18 23:59 23:59 23:59 23:59 Intake Total 2170 1920 2660 570 Output Total 1000 1000 1650 400 Balance 3864 886 0005 170 Weight 219 lb 5.759 oz 219 lb 5.759 oz 222 lb 6.4 oz 226 lb 6.4 oz Last Vital Signs Temp Pulse Resp BP Pulse Ox 99.2 F 102 H 18 95/52 L 96 03/12/18 10:00 03/12/18 10:00 03/12/18 11:17 03/12/18 10:00 03/12/18 08:37 Active Medications Acetaminophen (Tylenol -) 650 mg PO Q6H PRN PRN Reason: PAIN LEVEL 1 - 3 Last Admin: 03/11/18 12:33 Dose: 650 mg Allopurinol (Zyloprim -) 100 mg PO BID [facility] Last Admin: 03/12/18 09:39 Dose: 100 mg Chlorhexidine Gluconate (Peridex -) 15 ml MM BID [facility] Last Admin: 03/12/18 10:57 Dose: 15 ml Cholecalciferol (Vitamin D3 -) 1,000 unit PO DAILY [facility] Last Admin: 03/12/18 09:40 Dose: 1,000 unit Diphenhydramine HCl (Benadryl Injection -) 25 mg IVPB ONCE PRN PRN Reason: DURING PLASMAPHERESIS Levofloxacin (Levaquin 250 Mg Premixed Ivpb -) 250 mg in 50 mls @ 50 mls/hr IVPB DAILY [facility]; Protocol Last Admin: 03/12/18 09:38 Dose: 50 mls/hr Fentanyl 500 mcg/ Dextrose 100 mls @ 5 mls/hr IVPB TITR [facility]; Protocol Last Admin: 03/11/18 21:43 Dose: Not Given Metronidazole (Flagyl 500mg Premixed Ivpb -) 500 mg in 100 mls @ 100 mls/hr IVPB Q8H-IV [facility] Last Admin: 03/12/18 10:56 Dose: 100 mls/hr Propofol (Diprivan -) 1,000,000 mcg in 100 mls @ 1.54 mls/hr IVPB TITR [facility]; Protocol Lactobacillus Acidophilus (Bacid -) 1 tab PO DAILY [facility] Last Admin: 03/12/18 09:39 Dose: 1 tab Metoprolol Tartrate (Lopressor Injection -) 5 mg IVPUSH Q8H PRN PRN Reason: TACHYCARDIA Last Admin: 03/10/18 01:03 Dose: 5 mg Metoprolol Tartrate (Lopressor -) 25 mg NGT BID [facility] Last Admin: 03/12/18 09:39 Dose: 25 mg Pantoprazole Sodium (Protonix Iv) 40 mg IVPUSH BID [facility] Last Admin: 03/12/18 09:39 Dose: 40 mg Phytonadione (Aqua Mephyton Injection -) 5 mg SQ DAILY [facility] Stop: 03/14/18 17:59 Last Admin: 03/12/18 09:39 Dose: 5 mg Rifaximin (Xifaxan -) 550 mg PO BID [facility] Last Admin: 03/12/18 09:40 Dose: 550 mg Rocuronium [place] (Zemuron -) 100 mg IV ONCE ONE Stop: 03/12/18 13:01 Sodium Bicarbonate (Sodium Bicarbonate -) 650 mg NGT DAILY [facility] Last Admin: 03/12/18 09:39 Dose: 650 mg Thiamine HCl (Vitamin B1 -) 100 mg PO DAILY [facility] Last Admin: 03/12/18 09:39 Dose: 100 mg Gen: intubated, poorly responsive Heart: RRR Lung: scattered rhonchi Abd: soft, nontender Ext: + edema Laboratory Results - last 24 hr 03/11/18 03/12/18 03/12/18 13:20 05:30 05:30 WBC RBC Hgb Hct MCV MCH MCHC RDW Plt Count MPV Absolute Neuts (auto) Neutrophils % Lymphocytes % Monocytes % Eosinophils % Basophils % PT with INR 18.30 H INR 1.54 H PTT (Actin FS) 18.9 L Fibrinogen 323.0 D 233.0 L D Sodium Potassium Chloride Carbon Dioxide Anion Gap BUN Creatinine Creat Clearance w eGFR Random Glucose Calcium Phosphorus Magnesium Total Bilirubin AST ALT Alkaline Phosphatase Total Protein Albumin Blood Type Antibody Screen 03/12/18 03/12/18 03/12/18 05:30 05:30 05:30 WBC 4.6 RBC 2.78 L Hgb 8.2 L Hct 25.3 L MCV 91.1 MCH 29.6 MCHC 32.5 RDW 16.0 H Plt Count 146 D MPV 9.9 Absolute Neuts (auto) 2.4 Neutrophils % 66.4 Lymphocytes % 24.5 Monocytes % 5.1 Eosinophils % 2.7 D Basophils % 1.3 PT with INR INR PTT (Actin FS) Fibrinogen Sodium 142 Potassium 4.8 Chloride 117 H Carbon Dioxide 20 L Anion Gap 6 L BUN 39 H Creatinine 1.2 Creat Clearance w eGFR 58.40 Random Glucose 87 Calcium 6.8 L* Phosphorus 3.2 Magnesium 1.6 L Total Bilirubin 0.5 AST 38 H ALT 23 Alkaline Phosphatase 157 H Total Protein 8.6 H Albumin 1.0 L Blood Type B POSITIVE Antibody Screen Negative ASSESSMENT AND PLAN: Acute Hypoxic Respiratory Failure Altered Mental Status Metabolic Encephalopathy Pneumonia Acalculous Cholecystitis Multiple Myeloma Acute on Chronic Renal Failure Metabolic Acidosis LV Diastolic Dysfunction Atrial Fibrillation CAD +Troponins likely Demand Ischemia PAD Hyperlipidemia HTN Anemia - Correct coagulopathy with FFP - monitor H/H - monitor urine output, creatinine - rate control - minimize sedation to assess mental status - DVT/GI prophylaxis - continue discussions regarding goals of care - For Trach today - continue ICU monitoring - poor overall prognosis for meaningful recovery: have recommended to family for compassionate extubation but they have deciding on Trach/PEG Dr Walker Critical care time spent in reviewing chart, evaluating patient and formulating plan 35 min
[2018-03-12 11:47] LABS: ROULEAU 2+
[2018-03-12] MEDS ORDERED: ROCURONIUM BROMIDE 50 MG/5 ML VIAL IV ONE (13:00)
[2018-03-12] MEDS ORDERED: fentaNYL CITRATE 250 MCG/5 ML VIAL ONE ×2 (13:04→23:09)
--- NOTE | 2018-03-12 13:31 | PN ---
Physical Exam: SUBJECTIVE: Patient seen and examined in the ICU. Remains intubated, poorly responsive but now on fentanyl gtt. opens eyes to voice. No gross change in overall mental status. Family decision to proceed with tracheostomy. INR elevated, will give 2 U FFP prior to trache today OBJECTIVE: Vital Signs Period Temp Pulse Resp BP Sys/Ariza Pulse Ox Last 24 Hr 99.2 F-100.2 F 81-108 18-19 94-116/52-92 96-99 GENERAL: Remains intubated, poorly responsive off sedation but opens eyes to voice. HEENT: NCAT PERRL sclera anicteric. nares patent, dry mucous membranes NECK: Trachea midline. LUNGS: bilateral diffuse rhonchi HEART: reg rate and irregular rhythm. ABDOMEN: Soft, nondistended NT EXTREMITIES: 2+ pulses, warm, well-perfused, no edema, scattered ulcers. NEUROLOGICAL: difficult to assess secondary to clinical condition. gag reflex does not appear to be present. opens eyes to voice. corneal reflex+, +gag reflex SKIN: Warm, dry, normal turgor, scattered ulcers on the legs Laboratory Results - last 24 hr 03/11/18 03/12/18 03/12/18 13:20 05:30 05:30 WBC Corrected WBC (auto) RBC Hgb Hct MCV MCH MCHC RDW Plt Count MPV Absolute Neuts (auto) Neutrophils % Neutrophils % (Manual) Band Neutrophils % Lymphocytes % Lymphocytes % (Manual) Monocytes % Monocytes % (Manual) Eosinophils % Eosinophils % (Manual) Basophils % Basophils % (Manual) Myelocytes % (Man) Promyelocytes % (Man) Blast Cells % (Manual) Nucleated RBC % Metamyelocytes Rouleaux PT with INR 18.30 H INR 1.54 H PTT (Actin FS) 18.9 L Fibrinogen 323.0 D 233.0 L D Sodium Potassium Chloride Carbon Dioxide Anion Gap BUN Creatinine Creat Clearance w eGFR Random Glucose Calcium Phosphorus Magnesium Total Bilirubin AST ALT Alkaline Phosphatase Total Protein Albumin Blood Type Antibody Screen 03/12/18 03/12/18 03/12/18 05:30 05:30 05:30 WBC 4.6 Corrected WBC (auto) 4.07 RBC 2.78 L Hgb 8.2 L Hct 25.3 L MCV 91.1 MCH 29.6 MCHC 32.5 RDW 16.0 H Plt Count 146 D MPV 9.9 Absolute Neuts (auto) 2.4 Neutrophils % 66.4 Neutrophils % (Manual) 66.3 D Band Neutrophils % 3.2 Lymphocytes % 24.5 Lymphocytes % (Manual) 21.0 D Monocytes % 5.1 Monocytes % (Manual) 2 L Eosinophils % 2.7 D Eosinophils % (Manual) 3.2 D Basophils % 1.3 Basophils % (Manual) 0.0 Myelocytes % (Man) 0 Promyelocytes % (Man) 0 Blast Cells % (Manual) 0 Nucleated RBC % 13 H* Metamyelocytes 2 D Rouleaux 2+ PT with INR INR PTT (Actin FS) Fibrinogen Sodium 142 Potassium 4.8 Chloride 117 H Carbon Dioxide 20 L Anion Gap 6 L BUN 39 H Creatinine 1.2 Creat Clearance w eGFR 58.40 Random Glucose 87 Calcium 6.8 L* Phosphorus 3.2 Magnesium 1.6 L Total Bilirubin 0.5 AST 38 H ALT 23 Alkaline Phosphatase 157 H Total Protein 8.6 H Albumin 1.0 L Blood Type B POSITIVE Antibody Screen Negative Active Medications Generic Name Dose Route Start Last Admin Trade Name Enricoq PRN Reason Stop Dose Admin Acetaminophen 650 mg 02/17/18 14:09 03/11/18 12:33 Tylenol - PO 650 mg Q6H PRN Administration PAIN LEVEL 1 - 3 Allopurinol 100 mg 02/16/18 10:00 03/12/18 09:39 Zyloprim - PO 100 mg BID [facility] Administration Chlorhexidine Gluconate 15 ml 02/17/18 23:45 03/12/18 10:57 Peridex - MM 15 ml BID [facility] Administration Cholecalciferol 1,000 unit 02/25/18 10:00 03/12/18 09:40 Vitamin D3 - PO 1,000 unit DAILY [facility] Administration Diphenhydramine HCl 25 mg 02/16/18 12:00 Benadryl Injection - IVPB ONCE PRN DURING PLASMAPHERESIS Levofloxacin 250 mg in 50 mls @ 50 mls/hr 02/26/18 12:45 03/12/18 09:38 Levaquin 250 Mg Premixed Ivpb - IVPB 50 mls/hr DAILY [facility] Administration Protocol Fentanyl 500 mcg/ Dextrose 100 mls @ 5 mls/hr 03/04/18 19:00 03/11/18 21:43 IVPB Not Given TITR [facility] Protocol 25 MCG/HR Metronidazole 500 mg in 100 mls @ 100 mls/hr 03/12/18 10:15 03/12/18 10:56 Flagyl 500mg Premixed Ivpb - IVPB 100 mls/hr Q8H-IV [facility] Administration Propofol 1,000,000 mcg in 100 mls @ 1.54 mls/hr 03/12/18 11:45 Diprivan - IVPB TITR [facility] Protocol 2.5 MCG/KG/MIN Lactobacillus Acidophilus 1 tab 03/04/18 10:00 03/12/18 09:39 Bacid - PO 1 tab DAILY [facility] Administration Metoprolol Tartrate 5 mg 02/16/18 13:04 03/10/18 01:03 Lopressor Injection - IVPUSH 5 mg Q8H PRN Administration TACHYCARDIA Metoprolol Tartrate 25 mg 03/08/18 11:54 03/12/18 09:39 Lopressor - NGT 25 mg BID [facility] Administration Pantoprazole Sodium 40 mg 03/08/18 22:00 03/12/18 09:39 Protonix Iv IVPUSH 40 mg BID [facility] Administration Phytonadione 5 mg 03/11/18 18:00 03/12/18 09:39 Aqua Mephyton Injection - SQ 03/14/18 17:59 5 mg DAILY [facility] Administration Rifaximin 550 mg 02/22/18 22:00 03/12/18 09:40 Xifaxan - PO 550 mg BID [facility] Administration Sodium Bicarbonate 650 mg 03/10/18 10:00 03/12/18 09:39 Sodium Bicarbonate - NGT 650 mg DAILY [facility] Administration Thiamine HCl 100 mg 02/06/18 22:12 03/12/18 09:39 Vitamin B1 - PO 100 mg DAILY [facility] Administration ASSESSMENT/PLAN: 77 yo m PMH of A-Fib, Acute on chronic kidney injury, CAD w stents, hypercalcemia, medication non-adherence, paraproteinemia, thromboembolic disease , diastolic heart dysfunction without failure, HTN, HLD, hypertrophic cardiomyopathy is here after a rapid response. He was on the floors when it was noticed that he has respiratory insufficiency and was desaturating, requiring ICU monitoring. GOC discussion ongoing. Family decision to proceed with tracheostomy. INR elevated, will give 2 U FFP prior to trache today GI: will need PEG placement when gets trache metabolic encephalopathy -ammonia downtrending w/ rifaximin, s/p lactulose -LFTs elevated but downtrending. transamintitis most likely secondary to ischemic hepatits which is multifactorial including sepsis, episodes of hypotension and hyperviscosity syndrome. acalculous cholecystitis? US shows thickened gallbladder wall, pericholecystic fluid, suspicious for acalculous cholecystitis. There was also mild dilatation of the CBD but that might be normal for age. -Spoke w/ IR, who feel image does not represent acalculous cholecystitis and does not require any IR drainage ID: No fevers recorded. - Rhonchi heard on Lung auscultation -RLL pneumonia bcx 02/26/18 neg off of ceftazidime Vancomycin Redosed 02/26/18 C diff neg 03/04/18 - c/w levaquin/flagyl. - ID on board - c/w rifaximin for elevated ammonia level Cardio: Afib -[id number] score of 6 - Lopressor 75 mg BID PO -IV metoprolol 5 mg PRN - diastolic dysfunction + hypertrophic cardiomyopathy - CAD with multiple stents - Cardio consulted and on board. off Xarelto 15 qd (renal dosing) while on heparin gtt. transfuse to maintain Hgb >8.0 s/p 1 u prbc 02/27/18 and 1 u prbc 03/01/18, Heparin with caution considering the dropping Hg, transfuse to maintain Hg equal or > 8.0, as outlined in prior notes ideally A/C therapy to be continued indefinitely unless it is absolutely contraindicated considering his [id number] score of 6 - Sporadically goes in and out of V-Tach - Can give amio if v-tach is sustained and persistent. -Off heparin gtt, s/p 2 U prbcs w/ appropriate response. FOBT neg Pulm: - Intubated -surgery consult for trache -INR elevated, will give 2 U FFP prior to trache today - Patient has b/l pleural effusions. - No pneumothorax - b/l diffuse rhonchi - infiltrate on CXR: Abx- Substituting levaquin for ceftazidime Vancomycin Redosed 02/26/18 - c/w levaquin/flagyl. Renal: - Acute on Chronic kidney injury MELITA ATN vs. 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 tubular injury, US showed no stones or obstruction, UA w/o protein but UPCR ~0.5 indicating non- albumin proteinuria) - Renal consulted and on board. Hyperkalemia (r/o tumor lysis) serum K is improved, s/p bicarb gtt Neuro: - Patient is not alert or oriented. Remains intubated, poorly responsive but now on fentanyl gtt. opens eyes to voice - Head CT showed no acute pathology - Neuro consulted and on board. (Dr. Kuo + Dr. mejia) -ammonia stable in 60s w/ rifaximin, lactulose dcd Heme/Onc: - monitor H/H - Will transfuse to keep hb > 8 - Patient not receiving plasmapharesis today. - Paraproteinemia - Patient fulfills new criteria for multiple myeloma with free kappa/ free lambda light chain ratio of 432 (>100 is diagnostic of myeloma) - Warm [place]/Lambda ratio > 100 consistent with Multiple myeloma - M spike elevated elevated at 6.8 previously 4.7 -steroids being held at this time transfuse to maintain Hg equal or > 8.0, as outlined in prior notes ideally A/C therapy to be continued indefinitely unless it is absolutely contraindicated considering his [id number] score of 6 -H/H remains stable of heparin gtt. -fibrinogen nl - HIT AB neg -FOBT neg -Seen by Mehdi this AM, and due to increasing INR, we are going to hold on this elective case. -Optimize platelets and coagulation factors prior to trach. Trach on Monday if stable -Vit K -Would like platelets at 100K and PT< 1.2 -monitor and would transfuse platelets and FFP prior to procedure to optimization. Correct coagulopathy with FFP Endo: - Parathyroid hormone WNL - PTH-borderline low appropriate given hypercalcemia, PTHrP low Prophylaxis: -Off heparin gtt, s/p prbcs w/ appropriate response. FOBT neg transfuse to maintain Hg equal or > 8.0, as outlined in prior notes ideally A/C therapy to be continued indefinitely unless it is absolutely contraindicated considering his [id number] score of 6 SCDs - Protonix F/E/N: F: of IVF E: Will replete lytes PRN N: tube feeds (low potassium feeds). with free water. bicarb tabs Code Status: Full Code -GOC discussion ongoing -Family decision to proceed with tracheostomy. See palliative care notes for further explanation. -have recommended to family for compassionate extubation but they have deciding on Trach/PEG Dispo: Patient will continue to receive ICU level care poor overall prognosis for meaningful recovery Family decision to proceed with tracheostomy. INR elevated, will give 2 U FFP prior to trache today Visit type - Emergency Visit Emergency Visit: Yes ED Registration Date: 02/06/18 Care time: The patient presented to the Emergency Department on the above date and was hospitalized for further evaluation of their emergent condition. - New Patient This patient is new to me today: Yes Date on this admission: 03/12/18 - Critical Care Critical Care patient: Yes Total Critical Care Time (in minutes): 38 Critical Care Statement: The care of this patient involved high complexity decision making to prevent further life threatening deterioration of the patient 's condition and/or to evaluate & treat vital organ system(s) failure or risk of failure.
[2018-03-12] MEDS ORDERED: LIDOCAINE 1%/EPI 1:100000 (20 ML MULTI DOSE VIAL) IJ ONE (14:02)
--- NOTE | 2018-03-12 14:43 | PROC ---
Procedure Note Procedure: Under informed consent, a bilateral Fiberoptic Bronchoscopy was performed prior to the placement of a Percutaneous Tracheostomy. The bronchoscope was inserted via the ETT. The ETT and airways were inspected and noted to have thin, but copious secretions. There were no masses or lesions noted. The bronchoscope was withdrawn to the distal tip of the ETT and remained there throughout the placement of the Percutaneous Tracheostomy. The bronchoscope was withdrawn from the ETT and inserted via the Tracheostomy to confirm excellent placement and no evidence of active bleeding. The patient tolerated the procedure well. Vital signs remained stable. STAT CXR ordered post-procedure. No immediate complications noted. Dr Walker
[2018-03-12] MEDS: FENTANYL INJECTION 500 MCG in DEXTROSE 5%-WATER - 90 ML IVPB SCH ×2 (15:58→22:49)
--- NOTE | 2018-03-12 17:55 | PN ---
Teaching Attending Note Name of Resident: Mandy Aldana ATTENDING PHYSICIAN STATEMENT I saw and evaluated the patient. I reviewed the resident's note and discussed the case with the resident. I agree with the resident's findings and plan as documented. ASSESSMENT AND PLAN: 77 y/o patient with newly diagnosed myeloma, 1. Acute hypoxic respiratory failure, suspected aspiration pneumonia with sepsis syndrome, remains intubated---- s/p tracheostomy today 2. Toxic metabolic encephelopathy, no change in status . opens eyes to verbal stimuli 3.CKD, suspected myeloma kidney 4. Paraproteinemia confirmed multiple myeloma 5. History of bilateral SFA occlusion post thrombectomy, most likely embolic disease related to persistent atrial fibrillation with [id number] score of 6 6. CAD with evidence of demand ischemic injury, non obstructive CAD on R&c coronary angiogrpahy angina pectoris 7. 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 Persistent atrial fibrillation [id number] score of 6 9. htn INR 1.5 --coagulopathy -- ? sepsis ? liver disease ? vit. K deficiency from broad spectrum antibiotics trial of vitamin K FFP pre tracheostomy for INR > 1.4 Keep fibrinogen > 150mg/dl platelets>100,000 monitor cbc/CMP
--- NOTE | 2018-03-12 18:02 | PN ---
Progress Note (short form) - Note Progress Note: Renal follow up for Hypercalcemia/MELITA Pt seen and examined in the ICU on vent via ET tune no overnight events Vital Signs Temperature 99.2 F 03/12/18 10:00 Pulse Rate 102 H 03/12/18 10:00 Respiratory Rate 18 03/12/18 11:17 Blood Pressure 95/52 L 03/12/18 10:00 O2 Sat by Pulse Oximetry (%) 96 03/12/18 08:37 Intake & Output 03/09/18 03/10/18 03/11/18 03/12/18 23:59 23:59 23:59 23:59 Intake Total 2170 1920 2660 570 Output Total 1000 1000 1650 400 Balance 2589 164 5195 170 Weight 99.5 kg 99.5 kg 100.879 kg 102.693 kg NAD trace sacral edema CBC, BMP 03/12/18 05:30 03/12/18 05:30 Current Medications Acetaminophen (Tylenol -) 650 mg PO Q6H PRN PRN Reason: PAIN LEVEL 1 - 3 Last Admin: 03/11/18 12:33 Dose: 650 mg Allopurinol (Zyloprim -) 100 mg PO BID CHELLY Last Admin: 03/12/18 09:39 Dose: 100 mg Chlorhexidine Gluconate (Peridex -) 15 ml MM BID [facility] Last Admin: 03/12/18 10:57 Dose: 15 ml Cholecalciferol (Vitamin D3 -) 1,000 unit PO DAILY [facility] Last Admin: 03/12/18 09:40 Dose: 1,000 unit Diphenhydramine HCl (Benadryl Injection -) 25 mg IVPB ONCE PRN PRN Reason: DURING PLASMAPHERESIS Levofloxacin (Levaquin 250 Mg Premixed Ivpb -) 250 mg in 50 mls @ 50 mls/hr IVPB DAILY [facility]; Protocol Last Admin: 03/12/18 09:38 Dose: 50 mls/hr Fentanyl 500 mcg/ Dextrose 100 mls @ 5 mls/hr IVPB TITR [facility]; Protocol Last Admin: 03/11/18 21:43 Dose: Not Given Metronidazole (Flagyl 500mg Premixed Ivpb -) 500 mg in 100 mls @ 100 mls/hr IVPB Q8H-IV [facility] Last Admin: 03/12/18 10:56 Dose: 100 mls/hr Lactobacillus Acidophilus (Bacid -) 1 tab PO DAILY [facility] Last Admin: 03/12/18 09:39 Dose: 1 tab Metoprolol Tartrate (Lopressor Injection -) 5 mg IVPUSH Q8H PRN PRN Reason: TACHYCARDIA Last Admin: 03/10/18 01:03 Dose: 5 mg Metoprolol Tartrate (Lopressor -) 25 mg NGT BID [facility] Last Admin: 03/12/18 09:39 Dose: 25 mg Pantoprazole Sodium (Protonix Iv) 40 mg IVPUSH BID [facility] Last Admin: 03/12/18 09:39 Dose: 40 mg Phytonadione (Aqua Mephyton Injection -) 5 mg SQ DAILY [facility] Stop: 03/14/18 17:59 Last Admin: 03/12/18 09:39 Dose: 5 mg Rifaximin (Xifaxan -) 550 mg PO BID [facility] Last Admin: 03/12/18 09:40 Dose: 550 mg Sodium Bicarbonate (Sodium Bicarbonate -) 650 mg NGT DAILY [facility] Last Admin: 03/12/18 09:39 Dose: 650 mg Thiamine HCl (Vitamin B1 -) 100 mg PO DAILY [facility] Last Admin: 03/12/18 09:39 Dose: 100 mg 77 year old gentleman with hx of CKD, Afib on A/C, CAD, CKD, Hypertension, Hyperlipidemia, PVD who presented with AMS/Confusion and found to have MELITA. #MELITA ATN vs. 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 tubular injury, US showed no stones or obstruction, UA w/o protein but UPCR ~0.5 indicating non- albumin proteinuria) #AMS #Newly diagnosed multiple myloma #Anemia #Hypercalcemia of Malignancy (PTH is low) #Hyperdense lesion on US of the kidney #Normal anion gap metabolic acidosis #Hyperkalemia (now resolved) Renal function stable at this time continue tube feeds and free water pt is non-oliguric continue vent support ICU follow up for trach placement Mack Miller DO
--- NOTE | 2018-03-12 18:24 | OPR ---
Patient Name: Oliver Patterson MR#: [id number] Procedure Date: 03/12/2018 Inpatient procedure Date of Admission: 02/06/2018 Preoperative Diagnosis: 1. Hypoxic respiratory failure; 2. Altered mental status; 3. Pneumonia; 4. Metabolic encephalopathy; 5. Multiple myeloma; 6. Acute on chronic renal failure; 7. Atrial fibrillation; 8. Coronary artery disease; 9. Peripheral artery disease; 10. Anemia. Postoperative Diagnosis: same. Procedure: 1. Flexible Bronchoscopy (performed by Dr. Walker) 2. Percutaneous tracheostomy. Indication: Respiratory failure; Surgeon(s): Hay Hancock MD Cosurgeon: jarrett Global Marketing Manager Surgeon: jarrett Anesthesia: local; Findings: Bronchoscopy: secretions in airway; tracheostomy in place without significant bleeding; Specimens Sent: 1. None. Complications: None. Drains / Tubes / Catheters: #8 Shiley Hardware / Implants: na Blood / Fluid Losses: none. Post-Operative Condition: hemodynamically stable. Indications: This patient is a 77 year-old male referred from the ICU team for tracheostomy because of prolonged respiratory failure. An informed consent was obtained from the family for the procedure. All questions were addressed and answered. Details of Procedure: The procedure was done at the bedside. Dr. Walker performed a bronchoscopy after he was given paralysis and prepared and draped. I then injected lidocaine and made a small incision. Blunt dissection was done down to the airway. Next under vision from bronchoscopy, the needle as inserted between the second and third ring. Using Seldinger technique the wire, dilator, Blue Rhino, and finally the tracheostomy were inserted. It was secured with sutures. A completion bronchoscopy showed good position and hemostasis. He tolerated the procedure well. I will follow the patient in the hospital and as an outpatient. Patient Name: Oliver Patterson MR#: [id number] Procedure Date: 03/12/2018 Inpatient procedure Date of Admission: 02/06/2018 Preoperative Diagnosis: 1. Hypoxic respiratory failure; 2. Altered mental status; 3. Pneumonia; 4. Metabolic encephalopathy; 5. Multiple myeloma; 6. Acute on chronic renal failure; 7. Atrial fibrillation; 8. Coronary artery disease; 9. Peripheral artery disease; 10. Anemia. Postoperative Diagnosis: same. Procedure: 1. Flexible Bronchoscopy (performed by Dr. Walker) 2. Percutaneous tracheostomy. Indication: Respiratory failure; Surgeon(s): Hay Hancock MD Cosurgeon: jarrett Global Marketing Manager Surgeon: jarrett Anesthesia: local; Findings: Bronchoscopy: secretions in airway; tracheostomy in place without significant bleeding; Specimens Sent: 1. None. Complications: None. Drains / Tubes / Catheters: #8 Shiley Hardware / Implants: na Blood / Fluid Losses: none. Post-Operative Condition: hemodynamically stable. Indications: This patient is a 77 year-old male referred from the ICU team for tracheostomy because of prolonged respiratory failure. An informed consent was obtained from the family for the procedure. All questions were addressed and answered. Details of Procedure: The procedure was done at the bedside. Dr. Walker performed a bronchoscopy after he was given paralysis and prepared and draped. I then injected lidocaine and made a small incision. Blunt dissection was done down to the airway. Next under vision from bronchoscopy, the needle as inserted between the second and third ring. Using Seldinger technique the wire, dilator, Blue Rhino, and finally the tracheostomy were inserted. It was secured with sutures. A completion bronchoscopy showed good position and hemostasis. He tolerated the procedure well. I will follow the patient in the hospital and as an outpatient.
[2018-03-12 18:33] LABS: INR 1.54 (0.83-1.09); PROTHROMBIN TIME (PATIENT) 18.3 SEC (9.7-13.0)
[2018-03-12 18:36] LABS: ACTIVATED PTT 26.3 SECONDS (25.2-36.5)
[2018-03-12 20:57] LABS: HEMATOCRIT 20.9 % (35.4-49); HEMOGLOBIN 7.2 GM/dL (11.7-16.9); MCHC 34.7 g/dl (32.0-35.9); MEAN CELL VOLUME 89.3 fl (80-96); MEAN PLT VOLUME 9.4 fl (7.5-11.1); PLATELET COUNT 148 K/MM3 (134-434); RBC 2.34 M/mm3 (4.00-5.60); RDW 15.8 % (11.9-15.9); WHITE BLOOD COUNT 2.4 K/mm3 (4.0-10.0)
[2018-03-13 06:17] LABS: ARTERIAL BLD GAS O2 SATURATION 96.6 % (90-98.9); ARTERIAL BLOOD GAS BASE EXCESS -2.8 meq/l (-2-2); ARTERIAL BLOOD GAS PCO2 31.8 mmHg (35-45); ARTERIAL BLOOD GAS PO2 87.4 mmHg (70-100); ARTERIAL BLOOD GAS pH 7.43 (7.35-7.45)
[2018-03-13 06:20] LABS: BASO % 0.9 % (0-2.0); CORRECTED WBC 2.89 K/mm3; EOS % 1.8 % (0-4.5); HEMATOCRIT 26.4 % (35.4-49); HEMOGLOBIN 8.7 GM/dL (11.7-16.9); LYMPH % 24.4 % (8-40); MCH 29.4 pg (25.7-33.7); MCHC 32.8 g/dl (32.0-35.9); MEAN CELL VOLUME 89.8 fl (80-96); MEAN PLT VOLUME 9.3 fl (7.5-11.1); MONO % 7.3 % (3.8-10.2); NEUT % 65.6 % (42.8-82.8); PLATELET COUNT 148 K/MM3 (134-434); RBC 2.94 M/mm3 (4.00-5.60); RDW 15.3 % (11.9-15.9); WHITE BLOOD COUNT 3.3 K/mm3 (4.0-10.0)
[2018-03-13 06:32] LABS: INR 1.47 (0.83-1.09); PROTHROMBIN TIME (PATIENT) 17.4 SEC (9.7-13.0)
[2018-03-13 06:35] LABS: ACTIVATED PTT 28.9 SECONDS (25.2-36.5)
[2018-03-13 06:52] LABS: ALLENS TEST POSITIVE
[2018-03-13 07:20] LABS: ALBUMIN 1.4 g/dl (3.4-5.0); ALK PHOS 142 U/L (45-117); ANION GAP 5 MMOL/L (8-16); BILIRUBIN,TOTAL 0.8 mg/dL (0.2-1); BLOOD UREA NITROGEN 38 mg/dL (7-18); CALCIUM 7.1 mg/dL (8.5-10.1); CHLORIDE 115 mmol/L (98-107); CO2 23 mmol/L (21-32); CREATININE 1.2 mg/dL (0.55-1.3); GLUCOSE,RANDOM 72 mg/dL (74-106); MAGNESIUM 1.9 mg/dL (1.8-2.4); PHOSPHOROUS 3.8 mg/dL (2.5-4.9); SGOT/AST 36 U/L (15-37); SGPT/ALT 21 U/L (13-61); SODIUM 143 mmol/L (136-145); TOT PROT 8.9 g/dl (6.4-8.2)
--- NOTE | 2018-03-13 10:03 | PN ---
Progress Note, Physician - Current Medication List Current Medications: Active Medications Acetaminophen (Tylenol -) 650 mg PO Q6H PRN PRN Reason: PAIN LEVEL 1 - 3 Last Admin: 03/11/18 12:33 Dose: 650 mg Allopurinol (Zyloprim -) 100 mg PO BID [facility] Last Admin: 03/12/18 21:13 Dose: 100 mg Chlorhexidine Gluconate (Peridex -) 15 ml MM BID [facility] Last Admin: 03/12/18 21:12 Dose: 15 ml Cholecalciferol (Vitamin D3 -) 1,000 unit PO DAILY [facility] Last Admin: 03/12/18 09:40 Dose: 1,000 unit Diphenhydramine HCl (Benadryl Injection -) 25 mg IVPB ONCE PRN PRN Reason: DURING PLASMAPHERESIS Levofloxacin (Levaquin 250 Mg Premixed Ivpb -) 250 mg in 50 mls @ 50 mls/hr IVPB DAILY [facility]; Protocol Last Admin: 03/12/18 09:38 Dose: 50 mls/hr Fentanyl 500 mcg/ Dextrose 100 mls @ 5 mls/hr IVPB TITR [facility]; Protocol Last Admin: 03/12/18 22:49 Dose: Not Given Metronidazole (Flagyl 500mg Premixed Ivpb -) 500 mg in 100 mls @ 100 mls/hr IVPB Q8H-IV [facility] Last Admin: 03/13/18 01:23 Dose: 100 mls/hr Lactobacillus Acidophilus (Bacid -) 1 tab PO DAILY [facility] Last Admin: 03/12/18 09:39 Dose: 1 tab Metoprolol Tartrate (Lopressor Injection -) 5 mg IVPUSH Q8H PRN PRN Reason: TACHYCARDIA Last Admin: 03/10/18 01:03 Dose: 5 mg Metoprolol Tartrate (Lopressor -) 25 mg NGT BID [facility] Last Admin: 03/12/18 21:14 Dose: 25 mg Pantoprazole Sodium (Protonix Iv) 40 mg IVPUSH BID [facility] Last Admin: 03/12/18 21:12 Dose: 40 mg Phytonadione (Aqua Mephyton Injection -) 5 mg SQ DAILY [facility] Stop: 03/14/18 17:59 Last Admin: 03/12/18 09:39 Dose: 5 mg Rifaximin (Xifaxan -) 550 mg PO BID [facility] Last Admin: 03/12/18 21:13 Dose: 550 mg Sodium Bicarbonate (Sodium Bicarbonate -) 650 mg NGT DAILY [facility] Last Admin: 03/12/18 09:39 Dose: 650 mg Thiamine HCl (Vitamin B1 -) 100 mg PO DAILY [facility] Last Admin: 03/12/18 09:39 Dose: 100 mg - Objective Vital Signs: Vital Signs Temperature 99.8 F H 03/13/18 06:00 Pulse Rate 116 H 03/13/18 08:00 Respiratory Rate 18 03/13/18 09:10 Blood Pressure 108/70 03/13/18 08:00 O2 Sat by Pulse Oximetry (%) 100 03/12/18 19:41 Cardiovascular: Yes: S1, S2 Respiratory: Yes: Regular, CTA Bilaterally Gastrointestinal: Yes: Normal Bowel Sounds, Soft Labs: CBC, BMP 03/13/18 05:30 03/13/18 05:30 INR, PTT INR 1.47 (0.83-1.09) H 03/13/18 05:30 Fibrinogen 338.0 mg/dL (238-498) D 03/12/18 20:00 Problem List - Problems (1) Toxic metabolic encephalopathy Code(s): G92 - TOXIC ENCEPHALOPATHY (2) Cellulitis Code(s): L03.90 - CELLULITIS, UNSPECIFIED Qualifiers: Site of cellulitis: extremity Site of cellulitis of extremity: lower extremity Laterality: right Qualified Code(s): L03.115 - Cellulitis of right lower limb (3) Sepsis Code(s): A41.9 - SEPSIS, UNSPECIFIED ORGANISM (4) Artery occlusion Code(s): I70.90 - UNSPECIFIED ATHEROSCLEROSIS (5) Hypercalcemia Code(s): E83.52 - HYPERCALCEMIA (6) Paroxysmal atrial fibrillation Code(s): I48.0 - PAROXYSMAL ATRIAL FIBRILLATION (7) MELITA (acute kidney injury) Code(s): N17.9 - ACUTE KIDNEY FAILURE, UNSPECIFIED Assessment/Plan (1) MELITA (acute kidney injury) Assessment/Plan: potassium now normal range- hyperkalemia improved ultrasound hyperdense lesion noted in left renal cortex Code(s): N17.9 - ACUTE KIDNEY FAILURE, UNSPECIFIED (2) Atrial fibrillation with RVR Assessment/Plan: heparin drip --dc due to anemia cardiac cath lab radiology technologist rate control with metoprolol (3) Respiratory failure Assessment/Plan: S/p Trach Vwnt setting per pulm Code(s): J96.90 - RESPIRATORY FAILURE, UNSP, UNSP W HYPOXIA OR HYPERCAPNIA (4) Toxic metabolic encephalopathy Assessment/Plan: Microbiology S/p Rx for PNA Code(s): G92 - TOXIC ENCEPHALOPATHY (5) Anemia Assessment/Plan: -Hold Heparin -Transfuse (6) Nutrition Assessment/Plan: Will need PEG
[2018-03-13] MEDS: THIAMINE HCL 100 MG TABLET (FP) PO SCH (10:24)
[2018-03-13] MEDS: PANTOPRAZOLE SODIUM 40 MG VIAL IVPUSH SCH ×2 (10:25→21:01)
[2018-03-13] MEDS: ALLOPURINOL 100 MG TABLET (FP) PO SCH ×2 (10:25→21:01)
[2018-03-13] MEDS: CHOLECALCIFEROL (VITAMIN D3) 1,000 UNIT TABLET (FP) PO SCH (10:25)
[2018-03-13] MEDS: RIFAXIMIN 550 MG TABLET (UD) PO SCH ×2 (10:25→21:01)
[2018-03-13] MEDS: METOPROLOL TARTRATE 25 MG TABLET (FP) NGT SCH ×2 (10:25→21:01)
[2018-03-13] MEDS: PHYTONADIONE 10 MG/1 ML AMP SQ SCH (10:25)
[2018-03-13] MEDS: SODIUM BICARBONATE 650 MG TABLET NGT SCH (10:25)
[2018-03-13] MEDS: LACTOBACILLUS ACIDOPHILUS 1 TABLET PO SCH (10:26)
[2018-03-13] MEDS: CHLORHEXIDINE GLUCONATE 0.12% 15ML CUP MM SCH ×2 (10:26→21:01)
[2018-03-13 10:58] LABS: ACANTHOCYTES 0; ANISOCYTOSIS 0; HELMET CELLS 0; HOWELL-JOLLY BODIES 0; MACROCYTOSIS 0; OVALOCYTE 0; PLATELET ESTIMATE DECREASED; ROULEAU 0; SICKELED CELLS 0; TARGET CELLS 0; TEAR DROP CELLS 0; TOXIC GRANULATION 0
[2018-03-13] MEDS ORDERED: morphine SULFATE 4 MG/ML VIAL IVPUSH PRN (11:27)
[2018-03-13] MEDS ORDERED: MIDAZOLAM HCL 2 MG/2 ML SINGLE DOSE VIAL IVPUSH PRN (11:38)
--- NOTE | 2018-03-13 11:57 | PN ---
Physical Exam: SUBJECTIVE: Patient seen and examined in the ICU. s/p trache yesterday w/o complication. poorly responsive but now on fentanyl gtt. opens eyes to voice. No gross change in overall mental status. OBJECTIVE: Vital Signs Period Temp Pulse Resp BP Sys/Ariza Pulse Ox Last 24 Hr 97.7 F-99.8 F 96-133 14-26 83-123/42-83 99-100 GENERAL: +trache, poorly responsive off sedation but opens eyes to voice. HEENT: NCAT PERRL sclera anicteric. nares patent, dry mucous membranes NECK: Trachea midline. +trache in place LUNGS: bilateral diffuse rhonchi HEART: reg rate and irregular rhythm. ABDOMEN: Soft, nondistended NT EXTREMITIES: 2+ pulses, warm, well-perfused, no edema, scattered ulcers. NEUROLOGICAL: difficult to assess secondary to clinical condition. gag reflex does not appear to be present. opens eyes to voice. corneal reflex+ SKIN: Warm, dry, normal turgor, scattered ulcers on the legs Laboratory Results - last 24 hr 03/12/18 03/12/18 03/12/18 05:30 17:00 20:00 WBC 2.4 L Corrected WBC (auto) RBC 2.34 L Hgb 7.2 L Hct 20.9 L D MCV 89.3 MCH 31.0 MCHC 34.7 RDW 15.8 Plt Count 148 MPV 9.4 Absolute Neuts (auto) Neutrophils % Lymphocytes % Monocytes % Eosinophils % Basophils % Nucleated RBC % PT with INR 18.30 H INR 1.54 H PTT (Actin FS) 26.3 Fibrinogen Anticoagulation Therapy Puncture Site ABG pH ABG pCO2 at Pt Temp ABG pO2 at Pt Temp ABG HCO3 ABG O2 Sat (Measured) ABG O2 Content ABG Base Excess Vinny Test O2 Delivery Device Oxygen Flow Rate Vent Mode Vent Rate Mechanical Rate PEEP Pressure Support Vent Sodium Potassium Chloride Carbon Dioxide Anion Gap BUN Creatinine Creat Clearance w eGFR Random Glucose Calcium Phosphorus Magnesium Total Bilirubin AST ALT Alkaline Phosphatase Total Protein Albumin Blood Type B POSITIVE Antibody Screen Negative Crossmatch See Detail 03/12/18 03/13/18 03/13/18 20:00 05:30 05:30 WBC 3.3 L Corrected WBC (auto) 2.89 RBC 2.94 L Hgb 8.7 L Hct 26.4 L D MCV 89.8 MCH 29.4 MCHC 32.8 RDW 15.3 Plt Count 148 MPV 9.3 Absolute Neuts (auto) 2.2 Neutrophils % 65.6 Lymphocytes % 24.4 Monocytes % 7.3 Eosinophils % 1.8 Basophils % 0.9 Nucleated RBC % 14 H* PT with INR 17.40 H INR 1.47 H PTT (Actin FS) 28.9 Fibrinogen 338.0 D Anticoagulation Therapy Puncture Site ABG pH ABG pCO2 at Pt Temp ABG pO2 at Pt Temp ABG HCO3 ABG O2 Sat (Measured) ABG O2 Content ABG Base Excess Vinny Test O2 Delivery Device Oxygen Flow Rate Vent Mode Vent Rate Mechanical Rate PEEP Pressure Support Vent Sodium Potassium Chloride Carbon Dioxide Anion Gap BUN Creatinine Creat Clearance w eGFR Random Glucose Calcium Phosphorus Magnesium Total Bilirubin AST ALT Alkaline Phosphatase Total Protein Albumin Blood Type Antibody Screen Crossmatch 03/13/18 03/13/18 05:30 05:52 WBC Corrected WBC (auto) RBC Hgb Hct MCV MCH MCHC RDW Plt Count MPV Absolute Neuts (auto) Neutrophils % Lymphocytes % Monocytes % Eosinophils % Basophils % Nucleated RBC % PT with INR INR PTT (Actin FS) Fibrinogen Anticoagulation Therapy No Result Required. Puncture Site Right radial ABG pH 7.43 ABG pCO2 at Pt Temp 31.8 L ABG pO2 at Pt Temp 87.4 D ABG HCO3 20.6 L ABG O2 Sat (Measured) 96.6 ABG O2 Content 11.4 L ABG Base Excess -2.8 L Vinny Test Positive O2 Delivery Device Alcpiece Oxygen Flow Rate 40% Vent Mode No Result Required. Vent Rate No Result Required. Mechanical Rate No Result Required. PEEP 5.0 Pressure Support Vent No Result Required. Sodium 143 Potassium 5.0 Chloride 115 H Carbon Dioxide 23 Anion Gap 5 L BUN 38 H Creatinine 1.2 Creat Clearance w eGFR 58.40 Random Glucose 72 L Calcium 7.1 L Phosphorus 3.8 Magnesium 1.9 Total Bilirubin 0.8 AST 36 ALT 21 Alkaline Phosphatase 142 H Total Protein 8.9 H Albumin 1.4 L Blood Type Antibody Screen Crossmatch Active Medications Generic Name Dose Route Start Last Admin Trade Name Freq PRN Reason Stop Dose Admin Acetaminophen 650 mg 02/17/18 14:09 03/11/18 12:33 Tylenol - PO 650 mg Q6H PRN Administration PAIN LEVEL 1 - 3 Allopurinol 100 mg 02/16/18 10:00 03/13/18 10:25 Zyloprim - PO 100 mg BID [facility] Administration Chlorhexidine Gluconate 15 ml 02/17/18 23:45 03/13/18 10:26 Peridex - MM 15 ml BID [facility] Administration Cholecalciferol 1,000 unit 02/25/18 10:00 03/13/18 10:25 Vitamin D3 - PO 1,000 unit DAILY [facility] Administration Diphenhydramine HCl 25 mg 02/16/18 12:00 Benadryl Injection - IVPB ONCE PRN DURING PLASMAPHERESIS Levofloxacin 250 mg in 50 mls @ 50 mls/hr 02/26/18 12:45 03/13/18 10:25 Levaquin 250 Mg Premixed Ivpb - IVPB 50 mls/hr DAILY [facility] Administration Protocol Metronidazole 500 mg in 100 mls @ 100 mls/hr 03/12/18 10:15 03/13/18 10:25 Flagyl 500mg Premixed Ivpb - IVPB 100 mls/hr Q8H-IV [facility] Administration Lactobacillus Acidophilus 1 tab 03/04/18 10:00 03/13/18 10:26 Bacid - PO 1 tab DAILY [facility] Administration Metoprolol Tartrate 5 mg 02/16/18 13:04 03/10/18 01:03 Lopressor Injection - IVPUSH 5 mg Q8H PRN Administration TACHYCARDIA Metoprolol Tartrate 25 mg 03/08/18 11:54 03/13/18 10:25 Lopressor - NGT 25 mg BID [facility] Administration Midazolam HCl 1 mg 03/13/18 11:38 Versed - IVPUSH Q4H PRN AGITATION Pantoprazole Sodium 40 mg 03/08/18 22:00 03/13/18 10:25 Protonix Iv IVPUSH 40 mg BID [facility] Administration Phytonadione 5 mg 03/11/18 18:00 03/13/18 10:25 Aqua Mephyton Injection - SQ 03/14/18 17:59 5 mg DAILY [facility] Administration Rifaximin 550 mg 02/22/18 22:00 03/13/18 10:25 Xifaxan - PO 550 mg BID [facility] Administration Sodium Bicarbonate 650 mg 03/10/18 10:00 03/13/18 10:25 Sodium Bicarbonate - NGT 650 mg DAILY [facility] Administration Thiamine HCl 100 mg 02/06/18 22:12 03/13/18 10:24 Vitamin B1 - PO 100 mg DAILY [facility] Administration ASSESSMENT/PLAN: 77 yo m PMH of A-Fib, Acute on chronic kidney injury, CAD w stents, hypercalcemia, medication non-adherence, paraproteinemia, thromboembolic disease , diastolic heart dysfunction without failure, HTN, HLD, hypertrophic cardiomyopathy is here after a rapid response. He was on the floors when it was noticed that he has respiratory insufficiency and was desaturating, requiring ICU monitoring. GOC discussion ongoing. successful tracheostomy yesterday. GI: will need PEG placement, successful tracheostomy yesterday. metabolic encephalopathy -ammonia downtrending w/ rifaximin, s/p lactulose -LFTs elevated but downtrending. transamintitis most likely secondary to ischemic hepatits which is multifactorial including sepsis, episodes of hypotension and hyperviscosity syndrome. acalculous cholecystitis? US shows thickened gallbladder wall, pericholecystic fluid, suspicious for acalculous cholecystitis. There was also mild dilatation of the CBD but that might be normal for age. -Spoke w/ IR, who feel image does not represent acalculous cholecystitis and does not require any IR drainage ID: No fevers recorded. - Rhonchi heard on Lung auscultation -RLL pneumonia bcx 02/26/18, 03/12/18 neg off of ceftazidime Vancomycin C diff neg 03/04/18 - c/w levaquin/flagyl. - ID on board - c/w rifaximin for elevated ammonia level Cardio: Afib -[id number] score of 6 - Lopressor 25 mg BID PO -IV metoprolol 5 mg PRN - diastolic dysfunction + hypertrophic cardiomyopathy - CAD with multiple stents - Cardio consulted and on board. off Xarelto 15 qd (renal dosing) while on heparin gtt. transfuse to maintain Hgb >8.0 s/p 1 u prbc 02/27/18 and 1 u prbc 03/01/18, Heparin with caution considering the dropping Hg, transfuse to maintain Hg equal or > 8.0, as outlined in prior notes ideally A/C therapy to be continued indefinitely unless it is absolutely contraindicated considering his [id number] score of 6 - Sporadically goes in and out of V-Tach - Can give amio if v-tach is sustained and persistent. -Off heparin gtt, s/p 2 U prbcs w/ appropriate response. FOBT neg Pulm: -successful tracheostomy yesterday. -s/p 2 U FFP prior to trache yesterday - Patient has b/l pleural effusions. - No pneumothorax - b/l diffuse rhonchi - infiltrate on CXR: Abx- Substituting levaquin for ceftazidime Vancomycin Redosed 02/26/18 - c/w levaquin/flagyl. Renal: - Acute on Chronic kidney injury MELITA ATN vs. 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 tubular injury, US showed no stones or obstruction, UA w/o protein but UPCR ~0.5 indicating non- albumin proteinuria) - Renal consulted and on board. Hyperkalemia (r/o tumor lysis) serum K is improved, s/p bicarb gtt dc francois Neuro: - Patient is not alert or oriented. successful tracheostomy yesterday, poorly responsive but now on fentanyl gtt. opens eyes to voice -dc fentanyl -versed prn - Head CT showed no acute pathology - Neuro consulted and on board. (Dr. Kuo + Dr. mejia) -ammonia stable in 60s w/ rifaximin, lactulose dcd Heme/Onc: - monitor H/H - Will transfuse to keep hb > 8 - Patient not receiving plasmapharesis today. - Paraproteinemia - Patient fulfills new criteria for multiple myeloma with free kappa/ free lambda light chain ratio of 432 (>100 is diagnostic of myeloma) - Rosine/Lambda ratio > 100 consistent with Multiple myeloma - M spike elevated elevated at 6.8 previously 4.7 -steroids being held at this time transfuse to maintain Hg equal or > 8.0, as outlined in prior notes ideally A/C therapy to be continued indefinitely unless it is absolutely contraindicated considering his [id number] score of 6 -H/H remains stable of heparin gtt. -fibrinogen nl - HIT AB neg -FOBT neg s/p 2 u FFP prior to procedure yesterday Endo: - Parathyroid hormone WNL - PTH-borderline low appropriate given hypercalcemia, PTHrP low Prophylaxis: -Off heparin gtt, s/p prbcs w/ appropriate response. FOBT neg transfuse to maintain Hg equal or > 8.0, as outlined in prior notes ideally A/C therapy to be continued indefinitely unless it is absolutely contraindicated considering his [id number] score of 6 -SCDs - Protonix F/E/N: F: of IVF E: Will replete lytes PRN N: tube feeds (low potassium feeds). with free water. bicarb tabs Code Status: Full Code -GOC discussion ongoing -have recommended to family for compassionate extubation but they have deciding on Trach/PEG successful tracheostomy yesterday. Dispo: Patient stable for transfer to floors. further care per primary team/PCP poor overall prognosis for meaningful recovery successful tracheostomy yesterday. Visit type - Emergency Visit Emergency Visit: Yes ED Registration Date: 02/06/18 Care time: The patient presented to the Emergency Department on the above date and was hospitalized for further evaluation of their emergent condition. - New Patient This patient is new to me today: Yes Date on this admission: 03/13/18 - Critical Care Critical Care patient: Yes Total Critical Care Time (in minutes): 36 Critical Care Statement: The care of this patient involved high complexity decision making to prevent further life threatening deterioration of the patient 's condition and/or to evaluate & treat vital organ system(s) failure or risk of failure.
--- NOTE | 2018-03-13 12:14 | PN ---
Progress Note, Physician Chief Complaint: Events noted Remains on mechanical ventilation via trache History of Present Illness: Patient was seen and examined in ICU. Remains on vent support. Chart was reviewed AF with RVR Post Tracheostomy - Current Medication List Current Medications: Active Medications Acetaminophen (Tylenol -) 650 mg PO Q6H PRN PRN Reason: PAIN LEVEL 1 - 3 Last Admin: 03/11/18 12:33 Dose: 650 mg Allopurinol (Zyloprim -) 100 mg PO BID [facility] Last Admin: 03/13/18 10:25 Dose: 100 mg Chlorhexidine Gluconate (Peridex -) 15 ml MM BID [facility] Last Admin: 03/13/18 10:26 Dose: 15 ml Cholecalciferol (Vitamin D3 -) 1,000 unit PO DAILY [facility] Last Admin: 03/13/18 10:25 Dose: 1,000 unit Diphenhydramine HCl (Benadryl Injection -) 25 mg IVPB ONCE PRN PRN Reason: DURING PLASMAPHERESIS Levofloxacin (Levaquin 250 Mg Premixed Ivpb -) 250 mg in 50 mls @ 50 mls/hr IVPB DAILY [facility]; Protocol Last Admin: 03/13/18 10:25 Dose: 50 mls/hr Metronidazole (Flagyl 500mg Premixed Ivpb -) 500 mg in 100 mls @ 100 mls/hr IVPB Q8H-IV [facility] Last Admin: 03/13/18 10:25 Dose: 100 mls/hr Lactobacillus Acidophilus (Bacid -) 1 tab PO DAILY [facility] Last Admin: 03/13/18 10:26 Dose: 1 tab Metoprolol Tartrate (Lopressor Injection -) 5 mg IVPUSH Q8H PRN PRN Reason: TACHYCARDIA Last Admin: 03/10/18 01:03 Dose: 5 mg Metoprolol Tartrate (Lopressor -) 25 mg NGT BID [facility] Last Admin: 03/13/18 10:25 Dose: 25 mg Midazolam HCl (Versed -) 1 mg IVPUSH Q4H PRN PRN Reason: AGITATION Pantoprazole Sodium (Protonix Iv) 40 mg IVPUSH BID [facility] Last Admin: 03/13/18 10:25 Dose: 40 mg Phytonadione (Aqua Mephyton Injection -) 5 mg SQ DAILY [facility] Stop: 03/14/18 17:59 Last Admin: 03/13/18 10:25 Dose: 5 mg Rifaximin (Xifaxan -) 550 mg PO BID [facility] Last Admin: 03/13/18 10:25 Dose: 550 mg Sodium Bicarbonate (Sodium Bicarbonate -) 650 mg NGT DAILY [facility] Last Admin: 03/13/18 10:25 Dose: 650 mg Thiamine HCl (Vitamin B1 -) 100 mg PO DAILY [facility] Last Admin: 03/13/18 10:24 Dose: 100 mg - Objective Vital Signs: Vital Signs Temperature 97.7 F 03/13/18 10:00 Pulse Rate 133 H 03/13/18 10:00 Respiratory Rate 21 H 03/13/18 11:26 Blood Pressure 106/78 03/13/18 10:00 O2 Sat by Pulse Oximetry (%) 99 03/13/18 11:20 Cardiovascular: Yes: Pulse Irregular, S1, S2 Respiratory: Yes: Diminished, Mechanically Ventilated Gastrointestinal: Yes: Normal Bowel Sounds, Soft. No: Tenderness Edema: No Labs: CBC, BMP 03/13/18 05:30 03/13/18 05:30 INR, PTT INR 1.47 (0.83-1.09) H 03/13/18 05:30 Fibrinogen 338.0 mg/dL (238-498) D 03/12/18 20:00 - ....Imaging Chest X-ray: Report Reviewed (LLL consolidation) Problem List - Problems (1) Anemia Code(s): D64.9 - ANEMIA, UNSPECIFIED (2) Hyperlipidemia Code(s): E78.5 - HYPERLIPIDEMIA, UNSPECIFIED Qualifiers: Hyperlipidemia type: pure hypercholesterolemia Qualified Code(s): E78.00 - Pure hypercholesterolemia, unspecified; E78.0 - Pure hypercholesterolemia (3) Multiple myeloma Code(s): C90.00 - MULTIPLE MYELOMA NOT HAVING ACHIEVED REMISSION Qualifiers: Multiple myeloma remission status: not in remission Qualified Code(s): C90.00 - Multiple myeloma not having achieved remission (4) Respiratory failure Code(s): J96.90 - RESPIRATORY FAILURE, UNSP, UNSP W HYPOXIA OR HYPERCAPNIA (5) Sepsis Code(s): A41.9 - SEPSIS, UNSPECIFIED ORGANISM (6) Toxic metabolic encephalopathy Code(s): G92 - TOXIC ENCEPHALOPATHY (7) Rltib-ce-jylnhkl kidney injury Code(s): N17.9 - ACUTE KIDNEY FAILURE, UNSPECIFIED; N18.9 - CHRONIC KIDNEY DISEASE, UNSPECIFIED Qualifiers: Acute renal failure type: unspecified Chronic kidney disease stage: unspecified stage Qualified Code(s): N17.9 - Acute kidney failure, unspecified ; N18.9 - Chronic kidney disease, unspecified (8) Demand ischemia Code(s): I24.8 - OTHER FORMS OF ACUTE ISCHEMIC HEART DISEASE (9) History of ETOH abuse Code(s): Z87.898 - PERSONAL HISTORY OF OTHER SPECIFIED CONDITIONS (10) Nonadherence to medication Code(s): Z91.14 - PATIENT'S OTHER NONCOMPLIANCE WITH MEDICATION REGIMEN (11) Paraproteinemia Code(s): D89.2 - HYPERGAMMAGLOBULINEMIA, UNSPECIFIED (12) Persistent atrial fibrillation Code(s): I48.1 - PERSISTENT ATRIAL FIBRILLATION (13) Chronic thromboembolic disease Code(s): I74.9 - EMBOLISM AND THROMBOSIS OF UNSPECIFIED ARTERY (14) Coronary artery disease Code(s): I25.10 - ATHSCL HEART DISEASE OF [place] CORONARY ARTERY W/O ANG PCTRS Qualifiers: Coronary Disease-Associated Artery/Lesion type: [place] artery [place] vs. transplanted heart: [place] heart Associated angina: without angina Qualified Code(s): I25.10 - Atherosclerotic heart disease of [place] coronary artery without angina pectoris (15) Diastolic dysfunction without heart failure Code(s): I51.9 - HEART DISEASE, UNSPECIFIED (16) HTN (hypertension) Code(s): I10 - ESSENTIAL (PRIMARY) HYPERTENSION Qualifiers: Hypertension type: essential hypertension Qualified Code(s): I10 - Essential (primary) hypertension (17) Hypertrophic cardiomyopathy Code(s): I42.2 - OTHER HYPERTROPHIC CARDIOMYOPATHY Assessment/Plan 1. Acute hypoxic respiratory failure, suspected aspiration pneumonia with sepsis syndrome, remains intubated now on trache 2. Toxic metabolic encephalopathy, rule out CVA 3. Acute on CKD 4. Paraproteinemia confirmed multiple myeloma 5. History of bilateral SFA occlusion post thrombectomy, most likely embolic disease related to persistent atrial fibrillation 6. CAD with evidence of demand ischemia, non obstructive CAD 7. 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 Persistent atrial fibrillation [id number] score of 6 9. HTN 10. Anemia/thrombocytopenia 11. Acalculous Cholecystitis 12. Ischemic hepatitis 13. Resolved Hypernatremia PLAN: 1. Consider A/C therapy unless it is absolutely contraindicated considering his [id number] score of 6 and stroke risk, previously was on NOAC. In the interim Heparin gtt if not contraindicated 2. Continue Lopressor and titrate dose. May give Amiodarone for ventricular ectopies 3. Antibiotics coverage 4. Ventilator management as per the ICU team 5. ? PEG 6. ? goal of care and advanced directives need to be readdressed. Guarded Eliel Sam MD
--- NOTE | 2018-03-13 12:20 | PN ---
Progress Note (short form) - Note Progress Note: Renal follow up for Hypercalcemia/MELITA Vital Signs Temperature 97.7 F 03/13/18 10:00 Pulse Rate 133 H 03/13/18 10:00 Respiratory Rate 21 H 03/13/18 11:26 Blood Pressure 106/78 03/13/18 10:00 O2 Sat by Pulse Oximetry (%) 99 03/13/18 11:20 Intake & Output 03/10/18 03/11/18 03/12/18 03/13/18 23:59 23:59 23:59 23:59 Intake Total 1920 2660 1296 570 Output Total 1000 1650 950 800 Balance 920 1010 346 -230 Weight 99.5 kg 100.879 kg 102.693 kg 103.6 kg CBC, BMP 03/13/18 05:30 03/13/18 05:30 Current Medications Acetaminophen (Tylenol -) 650 mg PO Q6H PRN PRN Reason: PAIN LEVEL 1 - 3 Last Admin: 03/11/18 12:33 Dose: 650 mg Allopurinol (Zyloprim -) 100 mg PO BID [facility] Last Admin: 03/13/18 10:25 Dose: 100 mg Chlorhexidine Gluconate (Peridex -) 15 ml MM BID [facility] Last Admin: 03/13/18 10:26 Dose: 15 ml Cholecalciferol (Vitamin D3 -) 1,000 unit PO DAILY [facility] Last Admin: 03/13/18 10:25 Dose: 1,000 unit Diphenhydramine HCl (Benadryl Injection -) 25 mg IVPB ONCE PRN PRN Reason: DURING PLASMAPHERESIS Levofloxacin (Levaquin 250 Mg Premixed Ivpb -) 250 mg in 50 mls @ 50 mls/hr IVPB DAILY [facility]; Protocol Last Admin: 03/13/18 10:25 Dose: 50 mls/hr Metronidazole (Flagyl 500mg Premixed Ivpb -) 500 mg in 100 mls @ 100 mls/hr IVPB Q8H-IV [facility] Last Admin: 03/13/18 10:25 Dose: 100 mls/hr Lactobacillus Acidophilus (Bacid -) 1 tab PO DAILY [facility] Last Admin: 03/13/18 10:26 Dose: 1 tab Metoprolol Tartrate (Lopressor Injection -) 5 mg IVPUSH Q8H PRN PRN Reason: TACHYCARDIA Last Admin: 03/10/18 01:03 Dose: 5 mg Metoprolol Tartrate (Lopressor -) 25 mg NGT BID [facility] Last Admin: 03/13/18 10:25 Dose: 25 mg Midazolam HCl (Versed -) 1 mg IVPUSH Q4H PRN PRN Reason: AGITATION Pantoprazole Sodium (Protonix Iv) 40 mg IVPUSH BID [facility] Last Admin: 03/13/18 10:25 Dose: 40 mg Phytonadione (Aqua Mephyton Injection -) 5 mg SQ DAILY [facility] Stop: 03/14/18 17:59 Last Admin: 03/13/18 10:25 Dose: 5 mg Rifaximin (Xifaxan -) 550 mg PO BID [facility] Last Admin: 03/13/18 10:25 Dose: 550 mg Sodium Bicarbonate (Sodium Bicarbonate -) 650 mg NGT DAILY [facility] Last Admin: 03/13/18 10:25 Dose: 650 mg Thiamine HCl (Vitamin B1 -) 100 mg PO DAILY [facility] Last Admin: 03/13/18 10:24 Dose: 100 mg 77 year old gentleman with hx of CKD, Afib on A/C, CAD, CKD, Hypertension, Hyperlipidemia, PVD who presented with AMS/Confusion and found to have MELITA. #MELITA ATN vs. 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 tubular injury, US showed no stones or obstruction, UA w/o protein but UPCR ~0.5 indicating non- albumin proteinuria) #AMS #Newly diagnosed multiple myloma Mack Paul [facility]
--- NOTE | 2018-03-13 12:37 | PN ---
Teaching Attending Note Name of Resident: Bola Griffith ATTENDING PHYSICIAN STATEMENT I saw and evaluated the patient. I reviewed the resident's note and discussed the case with the resident. I agree with the resident's findings and plan as documented. SUBJECTIVE: Patient seen and examined in the ICU. S/P Trach yesterday without incident. OBJECTIVE: Intake & Output 03/10/18 03/11/18 03/12/18 03/13/18 23:59 23:59 23:59 23:59 Intake Total 1920 2660 1296 570 Output Total 1000 1650 950 800 Balance 920 1010 346 -230 Weight 219 lb 5.759 oz 222 lb 6.4 oz 226 lb 6.4 oz 228 lb 6.4 oz Last Vital Signs Temp Pulse Resp BP Pulse Ox 97.7 F 85 18 83/56 L 99 03/13/18 10:00 03/13/18 12:00 03/13/18 12:00 03/13/18 12:00 03/13/18 11:20 Active Medications Acetaminophen (Tylenol -) 650 mg PO Q6H PRN PRN Reason: PAIN LEVEL 1 - 3 Last Admin: 03/11/18 12:33 Dose: 650 mg Allopurinol (Zyloprim -) 100 mg PO BID [facility] Last Admin: 03/13/18 10:25 Dose: 100 mg Chlorhexidine Gluconate (Peridex -) 15 ml MM BID [facility] Last Admin: 03/13/18 10:26 Dose: 15 ml Cholecalciferol (Vitamin D3 -) 1,000 unit PO DAILY [facility] Last Admin: 03/13/18 10:25 Dose: 1,000 unit Diphenhydramine HCl (Benadryl Injection -) 25 mg IVPB ONCE PRN PRN Reason: DURING PLASMAPHERESIS Levofloxacin (Levaquin 250 Mg Premixed Ivpb -) 250 mg in 50 mls @ 50 mls/hr IVPB DAILY [facility]; Protocol Last Admin: 03/13/18 10:25 Dose: 50 mls/hr Metronidazole (Flagyl 500mg Premixed Ivpb -) 500 mg in 100 mls @ 100 mls/hr IVPB Q8H-IV [facility] Last Admin: 03/13/18 10:25 Dose: 100 mls/hr Lactobacillus Acidophilus (Bacid -) 1 tab PO DAILY [facility] Last Admin: 03/13/18 10:26 Dose: 1 tab Metoprolol Tartrate (Lopressor Injection -) 5 mg IVPUSH Q8H PRN PRN Reason: TACHYCARDIA Last Admin: 03/10/18 01:03 Dose: 5 mg Metoprolol Tartrate (Lopressor -) 25 mg NGT BID [facility] Last Admin: 03/13/18 10:25 Dose: 25 mg Midazolam HCl (Versed -) 1 mg IVPUSH Q4H PRN PRN Reason: AGITATION Pantoprazole Sodium (Protonix Iv) 40 mg IVPUSH BID [facility] Last Admin: 03/13/18 10:25 Dose: 40 mg Phytonadione (Aqua Mephyton Injection -) 5 mg SQ DAILY [facility] Stop: 03/14/18 17:59 Last Admin: 03/13/18 10:25 Dose: 5 mg Rifaximin (Xifaxan -) 550 mg PO BID [facility] Last Admin: 03/13/18 10:25 Dose: 550 mg Sodium Bicarbonate (Sodium Bicarbonate -) 650 mg NGT DAILY [facility] Last Admin: 03/13/18 10:25 Dose: 650 mg Thiamine HCl (Vitamin B1 -) 100 mg PO DAILY [facility] Last Admin: 03/13/18 10:24 Dose: 100 mg Gen: Trached, vented, poorly responsive Heart: RRR Lung: scattered rhonchi Abd: soft, nontender Ext: + edema Laboratory Results - last 24 hr 03/12/18 03/12/18 03/12/18 05:30 17:00 20:00 WBC 2.4 L Corrected WBC (auto) RBC 2.34 L Hgb 7.2 L Hct 20.9 L D MCV 89.3 MCH 31.0 MCHC 34.7 RDW 15.8 Plt Count 148 MPV 9.4 Absolute Neuts (auto) Neutrophils % Lymphocytes % Monocytes % Eosinophils % Basophils % Nucleated RBC % PT with INR 18.30 H INR 1.54 H PTT (Actin FS) 26.3 Fibrinogen Anticoagulation Therapy Puncture Site ABG pH ABG pCO2 at Pt Temp ABG pO2 at Pt Temp ABG HCO3 ABG O2 Sat (Measured) ABG O2 Content ABG Base Excess Vinny Test O2 Delivery Device Oxygen Flow Rate Vent Mode Vent Rate Mechanical Rate PEEP Pressure Support Vent Sodium Potassium Chloride Carbon Dioxide Anion Gap BUN Creatinine Creat Clearance w eGFR Random Glucose Calcium Phosphorus Magnesium Total Bilirubin AST ALT Alkaline Phosphatase Total Protein Albumin Blood Type B POSITIVE Antibody Screen Negative Crossmatch See Detail 03/12/18 03/13/18 03/13/18 20:00 05:30 05:30 WBC 3.3 L Corrected WBC (auto) 2.89 RBC 2.94 L Hgb 8.7 L Hct 26.4 L D MCV 89.8 MCH 29.4 MCHC 32.8 RDW 15.3 Plt Count 148 MPV 9.3 Absolute Neuts (auto) 2.2 Neutrophils % 65.6 Lymphocytes % 24.4 Monocytes % 7.3 Eosinophils % 1.8 Basophils % 0.9 Nucleated RBC % 14 H* PT with INR 17.40 H INR 1.47 H PTT (Actin FS) 28.9 Fibrinogen 338.0 D Anticoagulation Therapy Puncture Site ABG pH ABG pCO2 at Pt Temp ABG pO2 at Pt Temp ABG HCO3 ABG O2 Sat (Measured) ABG O2 Content ABG Base Excess Vinny Test O2 Delivery Device Oxygen Flow Rate Vent Mode Vent Rate Mechanical Rate PEEP Pressure Support Vent Sodium Potassium Chloride Carbon Dioxide Anion Gap BUN Creatinine Creat Clearance w eGFR Random Glucose Calcium Phosphorus Magnesium Total Bilirubin AST ALT Alkaline Phosphatase Total Protein Albumin Blood Type Antibody Screen Crossmatch 03/13/18 03/13/18 05:30 05:52 WBC Corrected WBC (auto) RBC Hgb Hct MCV MCH MCHC RDW Plt Count MPV Absolute Neuts (auto) Neutrophils % Lymphocytes % Monocytes % Eosinophils % Basophils % Nucleated RBC % PT with INR INR PTT (Actin FS) Fibrinogen Anticoagulation Therapy No Result Required. Puncture Site Right radial ABG pH 7.43 ABG pCO2 at Pt Temp 31.8 L ABG pO2 at Pt Temp 87.4 D ABG HCO3 20.6 L ABG O2 Sat (Measured) 96.6 ABG O2 Content 11.4 L ABG Base Excess -2.8 L Vinny Test Positive O2 Delivery Device Alcpiece Oxygen Flow Rate 40% Vent Mode No Result Required. Vent Rate No Result Required. Mechanical Rate No Result Required. PEEP 5.0 Pressure Support Vent No Result Required. Sodium 143 Potassium 5.0 Chloride 115 H Carbon Dioxide 23 Anion Gap 5 L BUN 38 H Creatinine 1.2 Creat Clearance w eGFR 58.40 Random Glucose 72 L Calcium 7.1 L Phosphorus 3.8 Magnesium 1.9 Total Bilirubin 0.8 AST 36 ALT 21 Alkaline Phosphatase 142 H Total Protein 8.9 H Albumin 1.4 L Blood Type Antibody Screen Crossmatch ASSESSMENT AND PLAN: Acute Hypoxic Respiratory Failure: S/P Trach Altered Mental Status Metabolic Encephalopathy Pneumonia Acalculous Cholecystitis Multiple Myeloma Acute on Chronic Renal Failure Metabolic Acidosis LV Diastolic Dysfunction Atrial Fibrillation CAD +Troponins likely Demand Ischemia PAD Hyperlipidemia HTN Anemia - monitor H/H - monitor urine output, creatinine - rate control - DVT/GI prophylaxis - continue discussions regarding goals of care - poor overall prognosis for meaningful recovery: have recommended to family for compassionate extubation but they have deciding on Trach/PEG - 5S monitoring Dr Walker
[2018-03-13] MEDS: METOPROLOL TARTRATE 5 MG/5 ML VIAL IVPUSH PRN (18:30)
--- NOTE | 2018-03-14 07:49 | PN ---
Physical Exam: SUBJECTIVE: Patient seen and examined in the ICU. s/p trache 03/12/18 w/o complication. poorly responsive. opens eyes to voice. No gross change in overall mental status. OBJECTIVE: Vital Signs Period Temp Pulse Resp BP Sys/Ariza Pulse Ox Last 24 Hr 97.7 F-99.7 F 85-136 14-26 83-117/56-98 94-99 GENERAL: +trache, poorly responsive off sedation but opens eyes to voice. HEENT: NCAT PERRL sclera anicteric. nares patent, dry mucous membranes NECK: Trachea midline. +trache in place LUNGS: bilateral diffuse rhonchi HEART: reg rate and irregular rhythm. ABDOMEN: Soft, nondistended NT EXTREMITIES: 2+ pulses, warm, well-perfused, no edema, scattered ulcers. NEUROLOGICAL: difficult to assess secondary to clinical condition. gag reflex does not appear to be present. opens eyes to voice. corneal reflex+ SKIN: Warm, dry, normal turgor, scattered ulcers on the legs Laboratory Results - last 24 hr 03/13/18 05:30 Neutrophils % (Manual) 65.0 Band Neutrophils % 3.1 Lymphocytes % (Manual) 18.6 Monocytes % (Manual) 8 D Eosinophils % (Manual) 0.0 D Basophils % (Manual) 0.0 Myelocytes % (Man) 1 D Promyelocytes % (Man) 0 Blast Cells % (Manual) 0 Metamyelocytes 1 D Hypochromia 0 Toxic Granulation 0 Dohle Bodies 0 Platelet Estimate Decreased Polychromasia 0 Poikilocytosis 0 Basophilic Stippling 0 Anisocytosis 0 Microcytosis 0 Macrocytosis 0 Spherocytes 0 Sickle Cells 0 Target Cells 0 Tear Drop Cells 0 Ovalocytes 0 Stomatocytes 0 Helmet Cells 0 [place] Bodies 0 [place] Rings 0 [place] Cells 0 Acanthocytes (Spur) 0 Rouleaux 0 Fragmented RBCs 0 Schistocytes 0 Active Medications Generic Name Dose Route Start Last Admin Trade Name Freq PRN Reason Stop Dose Admin Acetaminophen 650 mg 02/17/18 14:09 03/11/18 12:33 Tylenol - PO 650 mg Q6H PRN Administration PAIN LEVEL 1 - 3 Allopurinol 100 mg 02/16/18 10:00 03/13/18 21:01 Zyloprim - PO 100 mg BID [facility] Administration Chlorhexidine Gluconate 15 ml 02/17/18 23:45 03/13/18 21:01 Peridex - MM 15 ml BID [facility] Administration Cholecalciferol 1,000 unit 02/25/18 10:00 03/13/18 10:25 Vitamin D3 - PO 1,000 unit DAILY [facility] Administration Diphenhydramine HCl 25 mg 02/16/18 12:00 Benadryl Injection - IVPB ONCE PRN DURING PLASMAPHERESIS Levofloxacin 250 mg in 50 mls @ 50 mls/hr 02/26/18 12:45 03/13/18 10:25 Levaquin 250 Mg Premixed Ivpb - IVPB 50 mls/hr DAILY [facility] Administration Protocol Metronidazole 500 mg in 100 mls @ 100 mls/hr 03/12/18 10:15 03/14/18 02:00 Flagyl 500mg Premixed Ivpb - IVPB 100 mls/hr Q8H-IV [facility] Administration Lactobacillus Acidophilus 1 tab 03/04/18 10:00 03/13/18 10:26 Bacid - PO 1 tab DAILY [facility] Administration Metoprolol Tartrate 5 mg 02/16/18 13:04 03/13/18 18:30 Lopressor Injection - IVPUSH 5 mg Q8H PRN Administration TACHYCARDIA Metoprolol Tartrate 25 mg 03/08/18 11:54 03/13/18 21:01 Lopressor - NGT 25 mg BID [facility] Administration Midazolam HCl 1 mg 03/13/18 11:38 Versed - IVPUSH Q4H PRN AGITATION Pantoprazole Sodium 40 mg 03/08/18 22:00 03/13/18 21:01 Protonix Iv IVPUSH 40 mg BID [facility] Administration Phytonadione 5 mg 03/11/18 18:00 03/13/18 10:25 Aqua Mephyton Injection - SQ 03/14/18 17:59 5 mg DAILY [facility] Administration Rifaximin 550 mg 02/22/18 22:00 03/13/18 21:01 Xifaxan - PO 550 mg BID [facility] Administration Sodium Bicarbonate 650 mg 03/10/18 10:00 03/13/18 10:25 Sodium Bicarbonate - NGT 650 mg DAILY [facility] Administration Thiamine HCl 100 mg 02/06/18 22:12 03/13/18 10:24 Vitamin B1 - PO 100 mg DAILY [facility] Administration ASSESSMENT/PLAN: 77 yo m PMH of A-Fib, Acute on chronic kidney injury, CAD w stents, hypercalcemia, medication non-adherence, paraproteinemia, thromboembolic disease , diastolic heart dysfunction without failure, HTN, HLD, hypertrophic cardiomyopathy is here after a rapid response. He was on the floors when it was noticed that he has respiratory insufficiency and was desaturating, requiring ICU monitoring. GOC discussion ongoing. successful tracheostomy 03/12/18 w/o complication GI: will need PEG placement, successful tracheostomy 03/12/18 w/o complication metabolic encephalopathy -ammonia downtrending w/ rifaximin, s/p lactulose -LFTs elevated but downtrending. transamintitis most likely secondary to ischemic hepatits which is multifactorial including sepsis, episodes of hypotension and hyperviscosity syndrome. acalculous cholecystitis? US shows thickened gallbladder wall, pericholecystic fluid, suspicious for acalculous cholecystitis. There was also mild dilatation of the CBD but that might be normal for age. -Spoke w/ IR, who feel image does not represent acalculous cholecystitis and does not require any IR drainage ID: No fevers recorded. - Rhonchi heard on Lung auscultation -RLL pneumonia bcx 02/26/18, 03/12/18 neg off of ceftazidime Vancomycin C diff neg 03/04/18 - c/w levaquin/flagyl. - ID on board - c/w rifaximin for elevated ammonia level Cardio: Afib -[id number] score of 6 - Lopressor 25 mg BID PO -IV metoprolol 5 mg PRN - diastolic dysfunction + hypertrophic cardiomyopathy - CAD with multiple stents - Cardio consulted and on board. off Xarelto 15 qd (renal dosing) while on heparin gtt. transfuse to maintain Hgb >8.0 s/p 1 u prbc 02/27/18 and 1 u prbc 03/01/18, Heparin with caution considering the dropping Hg, transfuse to maintain Hg equal or > 8.0, as outlined in prior notes ideally A/C therapy to be continued indefinitely unless it is absolutely contraindicated considering his [id number] score of 6 - Sporadically goes in and out of V-Tach - Can give amio if v-tach is sustained and persistent. -Off heparin gtt, s/p 2 U prbcs w/ appropriate response. FOBT neg -will cont to hold heparin given multiple attempts to restart it w/ sudden drop in Hgb, thus requiring transfusions Pulm: -successful tracheostomy 03/12/18 -s/p 2 U FFP prior to trache procedure - Patient has b/l pleural effusions. - No pneumothorax - b/l diffuse rhonchi - infiltrate on CXR: Abx- Substituting levaquin for ceftazidime Vancomycin - c/w levaquin/flagyl. Renal: - Acute on Chronic kidney injury MELITA ATN vs. 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 tubular injury, US showed no stones or obstruction, UA w/o protein but UPCR ~0.5 indicating non- albumin proteinuria) - Renal consulted and on board. Hyperkalemia (r/o tumor lysis) serum K is improved, s/p bicarb gtt francois dcd Neuro: - Patient is not alert or oriented. successful tracheostomy 03/12/18, poorly responsive, off fentanyl gtt. opens eyes to voice -dc fentanyl -versed prn - Head CT showed no acute pathology - Neuro consulted and on board. (Dr. Kuo + Dr. mejia) -ammonia stable in 60s w/ rifaximin, lactulose dcd Heme/Onc: - monitor H/H - Will transfuse to keep hb > 8 - Patient not receiving plasmapharesis today. - Paraproteinemia - Patient fulfills new criteria for multiple myeloma with free kappa/ free lambda light chain ratio of 432 (>100 is diagnostic of myeloma) - [place]/Lambda ratio > 100 consistent with Multiple myeloma - M spike elevated elevated at 6.8 previously 4.7 -steroids being held at this time transfuse to maintain Hg equal or > 8.0, as outlined in prior notes ideally A/C therapy to be continued indefinitely unless it is absolutely contraindicated considering his [id number] score of 6 -H/H remains stable of heparin gtt. -will cont to hold heparin given multiple attempts to restart it w/ sudden drop in Hgb, thus requiring transfusions -fibrinogen nl - HIT AB neg -FOBT neg s/p 2 u FFP prior to procedure Endo: - Parathyroid hormone WNL - PTH-borderline low appropriate given hypercalcemia, PTHrP low Prophylaxis: -Off heparin gtt, s/p prbcs w/ appropriate response. FOBT neg transfuse to maintain Hg equal or > 8.0, as outlined in prior notes ideally A/C therapy to be continued indefinitely unless it is absolutely contraindicated considering his [id number] score of 6 -will cont to hold heparin given multiple attempts to restart it w/ sudden drop in Hgb, thus requiring transfusions -SCDs - Protonix F/E/N: F: of IVF E: Will replete lytes PRN N: tube feeds (low potassium feeds). with free water. bicarb tabs Code Status: Full Code -GOC discussion ongoing -have recommended to family for compassionate extubation but they have decided on Trach/PEG successful tracheostomy 03/12/18 Dispo: Patient stable for transfer to floors. further care per primary team/PCP poor overall prognosis for meaningful recovery successful tracheostomy 03/12/18. Visit type - Emergency Visit Emergency Visit: Yes ED Registration Date: 02/06/18 Care time: The patient presented to the Emergency Department on the above date and was hospitalized for further evaluation of their emergent condition. - New Patient This patient is new to me today: Yes Date on this admission: 03/14/18 - Critical Care Critical Care patient: Yes Total Critical Care Time (in minutes): 38 Critical Care Statement: The care of this patient involved high complexity decision making to prevent further life threatening deterioration of the patient 's condition and/or to evaluate & treat vital organ system(s) failure or risk of failure.
[2018-03-14] MEDS: METOPROLOL TARTRATE 5 MG/5 ML VIAL IVPUSH PRN (08:34)
[2018-03-14 08:45] LABS: BASO % 0.5 % (0-2.0); CORRECTED WBC 3.01 K/mm3; EOS % 1.7 % (0-4.5); HEMATOCRIT 24.8 % (35.4-49); HEMOGLOBIN 8.7 GM/dL (11.7-16.9); LYMPH % 22.2 % (8-40); MCH 31.6 pg (25.7-33.7); MEAN CELL VOLUME 90.1 fl (80-96); MEAN PLT VOLUME 10.1 fl (7.5-11.1); MONO % 8.4 % (3.8-10.2); NEUT % 67.2 % (42.8-82.8); PLATELET COUNT 174 K/MM3 (134-434); RBC 2.75 M/mm3 (4.00-5.60); RDW 15.6 % (11.9-15.9); WHITE BLOOD COUNT 3.4 K/mm3 (4.0-10.0)
[2018-03-14 09:06] LABS: ALBUMIN 1.2 g/dl (3.4-5.0); ANION GAP 4 MMOL/L (8-16); BILIRUBIN,TOTAL 0.7 mg/dL (0.2-1); BLOOD UREA NITROGEN 41 mg/dL (7-18); CHLORIDE 118 mmol/L (98-107); CO2 21 mmol/L (21-32); CREATININE 1.3 mg/dL (0.55-1.3); GLUCOSE,RANDOM 132 mg/dL (74-106); MAGNESIUM 1.8 mg/dL (1.8-2.4); PHOSPHOROUS 3.5 mg/dL (2.5-4.9); POTASSIUM 4.8 mmol/L (3.5-5.1); SGOT/AST 61 U/L (15-37); SGPT/ALT 25 U/L (13-61); SODIUM 143 mmol/L (136-145); TOT PROT 9.1 g/dl (6.4-8.2)
[2018-03-14 09:07] LABS: ALK PHOS 255 U/L (45-117)
[2018-03-14] MEDS: ALLOPURINOL 100 MG TABLET (FP) PO SCH ×2 (09:42→21:25)
[2018-03-14] MEDS: RIFAXIMIN 550 MG TABLET (UD) PO SCH ×2 (09:42→21:25)
[2018-03-14] MEDS: PANTOPRAZOLE SODIUM 40 MG VIAL IVPUSH SCH ×2 (09:42→21:25)
[2018-03-14] MEDS: LACTOBACILLUS ACIDOPHILUS 1 TABLET PO SCH (09:42)
[2018-03-14] MEDS: METOPROLOL TARTRATE 25 MG TABLET (FP) NGT SCH ×2 (09:43→21:25)
[2018-03-14] MEDS: THIAMINE HCL 100 MG TABLET (FP) PO SCH (09:43)
[2018-03-14] MEDS: CHOLECALCIFEROL (VITAMIN D3) 1,000 UNIT TABLET (FP) PO SCH (09:43)
[2018-03-14] MEDS: SODIUM BICARBONATE 650 MG TABLET NGT SCH (09:43)
[2018-03-14] MEDS: PHYTONADIONE 10 MG/1 ML AMP SQ SCH (09:44)
[2018-03-14] MEDS: CHLORHEXIDINE GLUCONATE 0.12% 15ML CUP MM SCH ×2 (09:44→21:25)
--- NOTE | 2018-03-14 10:54 | PN ---
Progress Note, Physician History of Present Illness: Poorly responsive on vent s/p tracheostomy, persistent afib on lopressor off heparin gtt. - Current Medication List Current Medications: Active Medications Acetaminophen (Tylenol -) 650 mg PO Q6H PRN PRN Reason: PAIN LEVEL 1 - 3 Last Admin: 03/11/18 12:33 Dose: 650 mg Allopurinol (Zyloprim -) 100 mg PO BID [facility] Last Admin: 03/14/18 09:42 Dose: 100 mg Chlorhexidine Gluconate (Peridex -) 15 ml MM BID [facility] Last Admin: 03/14/18 09:44 Dose: 15 ml Cholecalciferol (Vitamin D3 -) 1,000 unit PO DAILY [facility] Last Admin: 03/14/18 09:43 Dose: 1,000 unit Diphenhydramine HCl (Benadryl Injection -) 25 mg IVPB ONCE PRN PRN Reason: DURING PLASMAPHERESIS Levofloxacin (Levaquin 250 Mg Premixed Ivpb -) 250 mg in 50 mls @ 50 mls/hr IVPB DAILY [facility]; Protocol Last Admin: 03/14/18 09:43 Dose: 50 mls/hr Metronidazole (Flagyl 500mg Premixed Ivpb -) 500 mg in 100 mls @ 100 mls/hr IVPB Q8H-IV [facility] Last Admin: 03/14/18 09:44 Dose: 100 mls/hr Lactobacillus Acidophilus (Bacid -) 1 tab PO DAILY [facility] Last Admin: 03/14/18 09:42 Dose: 1 tab Metoprolol Tartrate (Lopressor Injection -) 5 mg IVPUSH Q8H PRN PRN Reason: TACHYCARDIA Last Admin: 03/14/18 08:34 Dose: 5 mg Metoprolol Tartrate (Lopressor -) 25 mg NGT BID [facility] Last Admin: 03/14/18 09:43 Dose: 25 mg Midazolam HCl (Versed -) 1 mg IVPUSH Q4H PRN PRN Reason: AGITATION Pantoprazole Sodium (Protonix Iv) 40 mg IVPUSH BID [facility] Last Admin: 03/14/18 09:42 Dose: 40 mg Phytonadione (Aqua Mephyton Injection -) 5 mg SQ DAILY [facility] Stop: 03/14/18 17:59 Last Admin: 03/14/18 09:44 Dose: 5 mg Rifaximin (Xifaxan -) 550 mg PO BID [facility] Last Admin: 03/14/18 09:42 Dose: 550 mg Sodium Bicarbonate (Sodium Bicarbonate -) 650 mg NGT DAILY [facility] Last Admin: 03/14/18 09:43 Dose: 650 mg Thiamine HCl (Vitamin B1 -) 100 mg PO DAILY [facility] Last Admin: 03/14/18 09:43 Dose: 100 mg - Objective Vital Signs: Vital Signs Temperature 100.2 F H 03/14/18 10:00 Pulse Rate 124 H 03/14/18 10:00 Respiratory Rate 23 H 03/14/18 10:00 Blood Pressure 104/74 03/14/18 10:00 O2 Sat by Pulse Oximetry (%) 100 03/14/18 08:19 Constitutional: Yes: No Distress, Calm, Thin Neck: Yes: Supple Cardiovascular: Yes: Tachycardia, Pulse Irregular Respiratory: Yes: Intubated, Mechanically Ventilated Gastrointestinal: Yes: Normal Bowel Sounds, Soft Edema: Yes Edema: LUE: 1+, RUE: 1+ Labs: CBC, BMP 03/14/18 08:05 03/14/18 08:05 INR, PTT INR 1.47 (0.83-1.09) H 03/13/18 05:30 Fibrinogen 338.0 mg/dL (238-498) D 03/12/18 20:00 - ....Imaging Chest X-ray: Report Reviewed (LLL consolidation, bilateral trace effusions) Problem List - Problems (1) Atrial fibrillation with RVR Code(s): I48.91 - UNSPECIFIED ATRIAL FIBRILLATION (2) Vxcem-rs-[id number] kidney injury Code(s): N17.9 - ACUTE KIDNEY FAILURE, UNSPECIFIED; N18.9 - CHRONIC KIDNEY DISEASE, UNSPECIFIED Qualifiers: Acute renal failure type: unspecified Chronic kidney disease stage: unspecified stage Qualified Code(s): N17.9 - Acute kidney failure, unspecified ; N18.9 - Chronic kidney disease, unspecified (3) Demand ischemia Code(s): I24.8 - OTHER FORMS OF ACUTE ISCHEMIC HEART DISEASE (4) Hypercalcemia Code(s): E83.52 - HYPERCALCEMIA (5) Nonadherence to medication Code(s): Z91.14 - PATIENT'S OTHER NONCOMPLIANCE WITH MEDICATION REGIMEN (6) Paraproteinemia Code(s): D89.2 - HYPERGAMMAGLOBULINEMIA, UNSPECIFIED (7) Anticoagulant long-term use Code(s): Z79.01 - [facility] (CURRENT) USE OF ANTICOAGULANTS (8) Chronic thromboembolic disease Code(s): I74.9 - EMBOLISM AND THROMBOSIS OF UNSPECIFIED ARTERY (9) Coronary artery disease Code(s): I25.10 - ATHSCL HEART DISEASE OF [place] CORONARY ARTERY W/O ANG PCTRS Qualifiers: Coronary Disease-Associated Artery/Lesion type: [place] artery [place] vs. transplanted heart: [place] heart Associated angina: without angina Qualified Code(s): I25.10 - Atherosclerotic heart disease of [place] coronary artery without angina pectoris (10) Diastolic dysfunction without heart failure Code(s): I51.9 - HEART DISEASE, UNSPECIFIED (11) HTN (hypertension) Code(s): I10 - ESSENTIAL (PRIMARY) HYPERTENSION Qualifiers: Hypertension type: essential hypertension Qualified Code(s): I10 - Essential (primary) hypertension (12) Hypertrophic cardiomyopathy Code(s): I42.2 - OTHER HYPERTROPHIC CARDIOMYOPATHY (13) Hyperlipidemia Code(s): E78.5 - HYPERLIPIDEMIA, UNSPECIFIED Qualifiers: Hyperlipidemia type: pure hypercholesterolemia Qualified Code(s): E78.00 - Pure hypercholesterolemia, unspecified; E78.0 - Pure hypercholesterolemia (14) Multiple myeloma Code(s): C90.00 - MULTIPLE MYELOMA NOT HAVING ACHIEVED REMISSION Qualifiers: Multiple myeloma remission status: not in remission Qualified Code(s): C90.00 - Multiple myeloma not having achieved remission (15) Acalculous cholecystitis Code(s): K81.9 - CHOLECYSTITIS, UNSPECIFIED Assessment/Plan R&LHc at [facility] 04/20/2016 showing nonobstructive CAD, severe LV apical hypertrophic cardiomyopathy, mildly elevated right sided pressures, Mynx deployed right FREIGHT WEIGHER access site. 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 Echocardiogram: 10/18/2017 Mod cLVH, severe PURVI, mod TR RVSP 50-60 mmHg, mod- severe MR Echocardiogram: 01/23/2018 Normal LV size with hyperdynamic LVEF 75%, mild BSH, normal RV size and fxn, severe LAE, mod-severe MR, mod TR 1. Acute hypoxic respiratory failure, suspected aspiration pneumonia with sepsis syndrome, remains intubated post tracheostomy 2. Toxic metabolic encephalopathy, rule out CVA 3. Acute on CKD 4. Paraproteinemia confirmed multiple myeloma 5. History of bilateral SFA occlusion post thrombectomy, most likely embolic disease related to persistent atrial fibrillation 6. CAD with evidence of demand ischemia, non obstructive CAD 7. 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 Persistent atrial fibrillation [id number] score of 6 9. HTN 10. Anemia/thrombocytopenia 11. Acalculous Cholecystitis 12. Ischemic hepatitis 13. Resolved Hypernatremia PLAN: 1. Consider A/C therapy unless it is absolutely contraindicated considering his [id number] score of 6 and stroke risk, previously was on NOAC. In the interim consider Heparin gtt, albeit repeated Hgb drops on anticoagulation is major caveat. 2. Continue Lopressor 25 bid and titrate dose. 3. Antibiotics coverage 4. Ventilator management as per the ICU team 5. ? PEG 6. ? goal of care and advanced directives need to be readdressed.
--- NOTE | 2018-03-14 12:28 | PN ---
Progress Note, Physician - Current Medication List Current Medications: Active Medications Acetaminophen (Tylenol -) 650 mg PO Q6H PRN PRN Reason: PAIN LEVEL 1 - 3 Last Admin: 03/11/18 12:33 Dose: 650 mg Allopurinol (Zyloprim -) 100 mg PO BID [facility] Last Admin: 03/14/18 09:42 Dose: 100 mg Chlorhexidine Gluconate (Peridex -) 15 ml MM BID [facility] Last Admin: 03/14/18 09:44 Dose: 15 ml Cholecalciferol (Vitamin D3 -) 1,000 unit PO DAILY [facility] Last Admin: 03/14/18 09:43 Dose: 1,000 unit Diphenhydramine HCl (Benadryl Injection -) 25 mg IVPB ONCE PRN PRN Reason: DURING PLASMAPHERESIS Levofloxacin (Levaquin 250 Mg Premixed Ivpb -) 250 mg in 50 mls @ 50 mls/hr IVPB DAILY [facility]; Protocol Last Admin: 03/14/18 09:43 Dose: 50 mls/hr Metronidazole (Flagyl 500mg Premixed Ivpb -) 500 mg in 100 mls @ 100 mls/hr IVPB Q8H-IV [facility] Last Admin: 03/14/18 09:44 Dose: 100 mls/hr Lactobacillus Acidophilus (Bacid -) 1 tab PO DAILY [facility] Last Admin: 03/14/18 09:42 Dose: 1 tab Metoprolol Tartrate (Lopressor Injection -) 5 mg IVPUSH Q8H PRN PRN Reason: TACHYCARDIA Last Admin: 03/14/18 08:34 Dose: 5 mg Metoprolol Tartrate (Lopressor -) 25 mg NGT BID [facility] Last Admin: 03/14/18 09:43 Dose: 25 mg Midazolam HCl (Versed -) 1 mg IVPUSH Q4H PRN PRN Reason: AGITATION Pantoprazole Sodium (Protonix Iv) 40 mg IVPUSH BID [facility] Last Admin: 03/14/18 09:42 Dose: 40 mg Phytonadione (Aqua Mephyton Injection -) 5 mg SQ DAILY [facility] Stop: 03/14/18 17:59 Last Admin: 03/14/18 09:44 Dose: 5 mg Rifaximin (Xifaxan -) 550 mg PO BID [facility] Last Admin: 03/14/18 09:42 Dose: 550 mg Sodium Bicarbonate (Sodium Bicarbonate -) 650 mg NGT DAILY [facility] Last Admin: 03/14/18 09:43 Dose: 650 mg Thiamine HCl (Vitamin B1 -) 100 mg PO DAILY [facility] Last Admin: 03/14/18 09:43 Dose: 100 mg - Objective Vital Signs: Vital Signs Temperature 100.2 F H 03/14/18 10:00 Pulse Rate 124 H 03/14/18 10:00 Respiratory Rate 23 H 03/14/18 11:04 Blood Pressure 104/74 03/14/18 10:00 O2 Sat by Pulse Oximetry (%) 100 03/14/18 09:00 Cardiovascular: Yes: S1, S2 Respiratory: Yes: Mechanically Ventilated Gastrointestinal: Yes: Normal Bowel Sounds, Soft Labs: CBC, BMP 03/14/18 08:05 03/14/18 08:05 INR, PTT INR 1.47 (0.83-1.09) H 03/13/18 05:30 Fibrinogen 338.0 mg/dL (238-498) D 03/12/18 20:00 Problem List - Problems (1) Toxic metabolic encephalopathy Code(s): G92 - TOXIC ENCEPHALOPATHY (2) Cellulitis Code(s): L03.90 - CELLULITIS, UNSPECIFIED Qualifiers: Site of cellulitis: extremity Site of cellulitis of extremity: lower extremity Laterality: right Qualified Code(s): L03.115 - Cellulitis of right lower limb (3) Sepsis Code(s): A41.9 - SEPSIS, UNSPECIFIED ORGANISM (4) Artery occlusion Code(s): I70.90 - UNSPECIFIED ATHEROSCLEROSIS (5) Hypercalcemia Code(s): E83.52 - HYPERCALCEMIA (6) Paroxysmal atrial fibrillation Code(s): I48.0 - PAROXYSMAL ATRIAL FIBRILLATION (7) MELITA (acute kidney injury) Code(s): N17.9 - ACUTE KIDNEY FAILURE, UNSPECIFIED Assessment/Plan (1) MELITA (acute kidney injury) Assessment/Plan: potassium now normal range- hyperkalemia improved ultrasound hyperdense lesion noted in left renal cortex Code(s): N17.9 - ACUTE KIDNEY FAILURE, UNSPECIFIED (2) Atrial fibrillation with RVR Assessment/Plan: heparin drip --dc due to anemia quality assurance monitor chassis rate control with metoprolol (3) Respiratory failure Assessment/Plan: S/p Trach Vwnt setting per pulm Code(s): J96.90 - RESPIRATORY FAILURE, UNSP, UNSP W HYPOXIA OR HYPERCAPNIA (4) Toxic metabolic encephalopathy Assessment/Plan: Microbiology S/p Rx for PNA Code(s): G92 - TOXIC ENCEPHALOPATHY (5) Anemia Assessment/Plan: -Hold Heparin -Transfuse (6) Nutrition Assessment/Plan: d/w dr keron eisenberg in am
--- NOTE | 2018-03-14 12:46 | PN ---
Teaching Attending Note Name of Resident: Bola Griffith ATTENDING PHYSICIAN STATEMENT I saw and evaluated the patient. I reviewed the resident's note and discussed the case with the resident. I agree with the resident's findings and plan as documented. SUBJECTIVE: Pt seen and examined in the ICU. Vented, unresponsive. No pressors. Heart rates variable. OBJECTIVE: Vital Signs Period Temp Pulse Resp BP Sys/Ariza Pulse Ox Last 24 Hr 98.4 F-100.2 F 112-140 18-23 96-117/64-98 98-100 Intake & Output 03/11/18 03/12/18 03/13/18 03/14/18 23:59 23:59 23:59 23:59 Intake Total 2660 1296 1175 940 Output Total 0813 535 4108 Balance 1010 346 -25 940 Weight 100.879 kg 102.693 kg 103.6 kg 104.372 kg Gen: vented, unresponsive Heart: tachycardic, irregular Lung: scattered rhonchi Abd: soft, nontender Ext: + edema CBC, BMP 03/14/18 08:05 03/14/18 08:05 Active Medications Acetaminophen (Tylenol -) 650 mg PO Q6H PRN PRN Reason: PAIN LEVEL 1 - 3 Last Admin: 03/11/18 12:33 Dose: 650 mg Allopurinol (Zyloprim -) 100 mg PO BID [facility] Last Admin: 03/14/18 09:42 Dose: 100 mg Chlorhexidine Gluconate (Peridex -) 15 ml MM BID [facility] Last Admin: 03/14/18 09:44 Dose: 15 ml Cholecalciferol (Vitamin D3 -) 1,000 unit PO DAILY [facility] Last Admin: 03/14/18 09:43 Dose: 1,000 unit Diphenhydramine HCl (Benadryl Injection -) 25 mg IVPB ONCE PRN PRN Reason: DURING PLASMAPHERESIS Levofloxacin (Levaquin 250 Mg Premixed Ivpb -) 250 mg in 50 mls @ 50 mls/hr IVPB DAILY [facility]; Protocol Last Admin: 03/14/18 09:43 Dose: 50 mls/hr Metronidazole (Flagyl 500mg Premixed Ivpb -) 500 mg in 100 mls @ 100 mls/hr IVPB Q8H-IV [facility] Last Admin: 03/14/18 09:44 Dose: 100 mls/hr Lactobacillus Acidophilus (Bacid -) 1 tab PO DAILY [facility] Last Admin: 03/14/18 09:42 Dose: 1 tab Metoprolol Tartrate (Lopressor Injection -) 5 mg IVPUSH Q8H PRN PRN Reason: TACHYCARDIA Last Admin: 03/14/18 08:34 Dose: 5 mg Metoprolol Tartrate (Lopressor -) 25 mg NGT BID [facility] Last Admin: 03/14/18 09:43 Dose: 25 mg Midazolam HCl (Versed -) 1 mg IVPUSH Q4H PRN PRN Reason: AGITATION Pantoprazole Sodium (Protonix Iv) 40 mg IVPUSH BID [facility] Last Admin: 03/14/18 09:42 Dose: 40 mg Phytonadione (Aqua Mephyton Injection -) 5 mg SQ DAILY [facility] Stop: 03/14/18 17:59 Last Admin: 03/14/18 09:44 Dose: 5 mg Rifaximin (Xifaxan -) 550 mg PO BID [facility] Last Admin: 03/14/18 09:42 Dose: 550 mg Sodium Bicarbonate (Sodium Bicarbonate -) 650 mg NGT DAILY [facility] Last Admin: 03/14/18 09:43 Dose: 650 mg Thiamine HCl (Vitamin B1 -) 100 mg PO DAILY [facility] Last Admin: 03/14/18 09:43 Dose: 100 mg ASSESSMENT AND PLAN: Acute Hypoxic Respiratory Failure s/p Tracheostomy Altered Mental Status Metabolic Encephalopathy Pneumonia Acalculous Cholecystitis Multiple Myeloma Acute on Chronic Renal Failure Metabolic Acidosis LV Diastolic Dysfunction Atrial Fibrillation CAD +Troponins likely Demand Ischemia PAD Hyperlipidemia HTN Anemia - monitor H/H - antibiotics per ID, can likely d/c - monitor urine output, creatinine - rate control - holding anticoagulation as he has bled and dropped his H/H this admission - hold sedation to assess mental status - DVT/GI prophylaxis - poor overall prognosis for meaningful recovery - can monitor on vent floor
[2018-03-14 17:49] LABS: INR 1.77 (0.83-1.09)
[2018-03-15 06:11] LABS: BASO % 0.5 % (0-2.0); EOS % 1.7 % (0-4.5); HEMATOCRIT 24.2 % (35.4-49); LYMPH % 22.6 % (8-40); MCH 29.8 pg (25.7-33.7); MCHC 33.2 g/dl (32.0-35.9); MEAN CELL VOLUME 89.6 fl (80-96); MEAN PLT VOLUME 9.2 fl (7.5-11.1); NEUT % 67.2 % (42.8-82.8); PLATELET COUNT 155 K/MM3 (134-434); RDW 15.5 % (11.9-15.9); WHITE BLOOD COUNT 3.7 K/mm3 (4.0-10.0)
[2018-03-15 06:34] LABS: INR 1.69 (0.83-1.09)
[2018-03-15 06:36] LABS: ACTIVATED PTT 25.9 SECONDS (25.2-36.5)
[2018-03-15 06:40] LABS: ALBUMIN 1.4 g/dl (3.4-5.0); ALK PHOS 240 U/L (45-117); ANION GAP 4 MMOL/L (8-16); BILIRUBIN,TOTAL 0.9 mg/dL (0.2-1); BLOOD UREA NITROGEN 42 mg/dL (7-18); CHLORIDE 118 mmol/L (98-107); CO2 22 mmol/L (21-32); CREATININE 1.3 mg/dL (0.55-1.3); GLUCOSE,RANDOM 98 mg/dL (74-106); MAGNESIUM 1.8 mg/dL (1.8-2.4); PHOSPHOROUS 3.6 mg/dL (2.5-4.9); POTASSIUM 4.7 mmol/L (3.5-5.1); SGOT/AST 89 U/L (15-37); SGPT/ALT 35 U/L (13-61); SODIUM 144 mmol/L (136-145); TOT PROT 9.3 g/dl (6.4-8.2)
--- NOTE | 2018-03-15 07:31 | PN ---
Physical Exam: SUBJECTIVE: Patient seen and examined in the ICU. s/p trache 03/12/18 w/o complication. poorly responsive. opens eyes to voice. No gross change in overall mental status. Receiving 2u FFP prior to PEG. OBJECTIVE: Vital Signs Period Temp Pulse Resp BP Sys/Ariza Pulse Ox Last 24 Hr 98.3 F-100.2 F 109-140 18-27 100-114/58-81 100-100 GENERAL: +trache, poorly responsive off sedation but opens eyes to voice. HEENT: NCAT PERRL sclera anicteric. nares patent, dry mucous membranes NECK: Trachea midline. +trache in place LUNGS: bilateral diffuse rhonchi HEART: reg rate and irregular rhythm. ABDOMEN: Soft, nondistended NT EXTREMITIES: 2+ pulses, warm, well-perfused, no edema, scattered ulcers. NEUROLOGICAL: difficult to assess secondary to clinical condition. gag reflex does not appear to be present. opens eyes to voice. corneal reflex+ SKIN: Warm, dry, normal turgor, scattered ulcers on the legs Laboratory Results - last 24 hr 03/14/18 03/14/18 03/14/18 08:05 08:05 16:00 WBC 3.4 L Corrected WBC (auto) 3.01 RBC 2.75 L Hgb 8.7 L Hct 24.8 L MCV 90.1 MCH 31.6 MCHC 35.0 RDW 15.6 Plt Count 174 MPV 10.1 Absolute Neuts (auto) 2.3 Neutrophils % 67.2 Neutrophils % (Manual) 57.8 Band Neutrophils % 5.6 Lymphocytes % 22.2 Lymphocytes % (Manual) 23.3 D Monocytes % 8.4 Monocytes % (Manual) 9 Eosinophils % 1.7 Eosinophils % (Manual) 0.0 Basophils % 0.5 Basophils % (Manual) 0.0 Myelocytes % (Man) 0 D Promyelocytes % (Man) 0 Blast Cells % (Manual) 0 Nucleated RBC % 13 H* Metamyelocytes 3 H D PT with INR 21.00 H INR 1.77 H PTT (Actin FS) Sodium 143 Potassium 4.8 Chloride 118 H Carbon Dioxide 21 Anion Gap 4 L BUN 41 H Creatinine 1.3 Creat Clearance w eGFR 53.25 Random Glucose 132 H Calcium 7.0 L Phosphorus 3.5 Magnesium 1.8 Total Bilirubin 0.7 AST 61 H ALT 25 Alkaline Phosphatase 255 H Total Protein 9.1 H Albumin 1.2 L 03/15/18 03/15/18 03/15/18 05:30 05:30 05:30 WBC 3.7 L Corrected WBC (auto) RBC 2.70 L Hgb 8.0 L Hct 24.2 L MCV 89.6 MCH 29.8 MCHC 33.2 RDW 15.5 Plt Count 155 MPV 9.2 Absolute Neuts (auto) 2.5 Neutrophils % 67.2 Neutrophils % (Manual) Band Neutrophils % Lymphocytes % 22.6 Lymphocytes % (Manual) Monocytes % 8.0 Monocytes % (Manual) Eosinophils % 1.7 Eosinophils % (Manual) Basophils % 0.5 Basophils % (Manual) Myelocytes % (Man) Promyelocytes % (Man) Blast Cells % (Manual) Nucleated RBC % 10 H Metamyelocytes PT with INR 20.00 H INR 1.69 H PTT (Actin FS) 25.9 Sodium 144 Potassium 4.7 Chloride 118 H Carbon Dioxide 22 Anion Gap 4 L BUN 42 H Creatinine 1.3 Creat Clearance w eGFR 53.25 Random Glucose 98 Calcium 7.0 L Phosphorus 3.6 Magnesium 1.8 Total Bilirubin 0.9 AST 89 H ALT 35 Alkaline Phosphatase 240 H Total Protein 9.3 H Albumin 1.4 L Active Medications Generic Name Dose Route Start Last Admin Trade Name Freq PRN Reason Stop Dose Admin Acetaminophen 650 mg 02/17/18 14:09 03/11/18 12:33 Tylenol - PO 650 mg Q6H PRN Administration PAIN LEVEL 1 - 3 Allopurinol 100 mg 02/16/18 10:00 03/14/18 21:25 Zyloprim - PO 100 mg BID [facility] Administration Chlorhexidine Gluconate 15 ml 02/17/18 23:45 03/14/18 21:25 Peridex - MM 15 ml BID [facility] Administration Cholecalciferol 1,000 unit 02/25/18 10:00 03/14/18 09:43 Vitamin D3 - PO 1,000 unit DAILY [facility] Administration Diphenhydramine HCl 25 mg 02/16/18 12:00 Benadryl Injection - IVPB ONCE PRN DURING PLASMAPHERESIS Lactobacillus Acidophilus 1 tab 03/04/18 10:00 03/14/18 09:42 Bacid - PO 1 tab DAILY [facility] Administration Metoprolol Tartrate 5 mg 02/16/18 13:04 03/14/18 08:34 Lopressor Injection - IVPUSH 5 mg Q8H PRN Administration TACHYCARDIA Metoprolol Tartrate 25 mg 03/08/18 11:54 03/14/18 21:25 Lopressor - NGT 25 mg BID [facility] Administration Midazolam HCl 1 mg 03/13/18 11:38 Versed - IVPUSH Q4H PRN AGITATION Pantoprazole Sodium 40 mg 03/08/18 22:00 03/14/18 21:25 Protonix Iv IVPUSH 40 mg BID [facility] Administration Rifaximin 550 mg 02/22/18 22:00 03/14/18 21:25 Xifaxan - PO 550 mg BID [facility] Administration Sodium Bicarbonate 650 mg 03/10/18 10:00 03/14/18 09:43 Sodium Bicarbonate - NGT 650 mg DAILY [facility] Administration Thiamine HCl 100 mg 02/06/18 22:12 03/14/18 09:43 Vitamin B1 - PO 100 mg DAILY [facility] Administration ASSESSMENT/PLAN: 77 yo m PMH of A-Fib, Acute on chronic kidney injury, CAD w stents, hypercalcemia, medication non-adherence, paraproteinemia, thromboembolic disease , diastolic heart dysfunction without failure, HTN, HLD, hypertrophic cardiomyopathy is here after a rapid response. He was on the floors when it was noticed that he has respiratory insufficiency and was desaturating, requiring ICU monitoring. GOC discussion ongoing. successful tracheostomy 03/12/18 w/o complication. Receiving 2u FFP prior to PEG. GI: Receiving 2u FFP prior to PEG today, successful tracheostomy 03/12/18 w/o complication metabolic encephalopathy -ammonia downtrending w/ rifaximin, s/p lactulose -LFTs elevated but downtrending. transamintitis most likely secondary to ischemic hepatits which is multifactorial including sepsis, episodes of hypotension and hyperviscosity syndrome. acalculous cholecystitis? US shows thickened gallbladder wall, pericholecystic fluid, suspicious for acalculous cholecystitis. There was also mild dilatation of the CBD but that might be normal for age. -Spoke w/ IR, who feel image does not represent acalculous cholecystitis and does not require any IR drainage ID: No fevers overnight - Rhonchi heard on Lung auscultation -RLL pneumonia - appears to have resolved bcx 02/26/18, 03/12/18 neg off of ceftazidime dc Vancomycin C diff neg 03/04/18 - dcd levaquin/flagyl. - ID on board - c/w rifaximin for elevated ammonia level Cardio: Afib -[id number] score of 6 - Lopressor 25 mg BID PO -IV metoprolol 5 mg PRN - diastolic dysfunction + hypertrophic cardiomyopathy - CAD with multiple stents - Cardio consulted and on board. off Xarelto 15 qd (renal dosing) while on heparin gtt. transfuse to maintain Hgb >8.0 s/p 1 u prbc 02/27/18 and 1 u prbc 03/01/18, Heparin with caution considering the dropping Hg, transfuse to maintain Hg equal or > 8.0, as outlined in prior notes ideally A/C therapy to be continued indefinitely unless it is absolutely contraindicated considering his [id number] score of 6 - Sporadically goes in and out of V-Tach - Can give amio if v-tach is sustained and persistent. -Off heparin gtt, s/p 2 U prbcs w/ appropriate response. FOBT neg -will cont to hold heparin given multiple attempts to restart it w/ sudden drop in Hgb likely due to a small GIB, thus requiring transfusions Pulm: -successful tracheostomy 03/12/18 - b/l diffuse rhonchi -dcd Vancomycin, levaquin/flagyl. Renal: - Acute on Chronic kidney injury MELITA ATN vs. 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 tubular injury, US showed no stones or obstruction, UA w/o protein but UPCR ~0.5 indicating non- albumin proteinuria) - Renal consulted and on board. Hyperkalemia (r/o tumor lysis) serum K is improved, s/p bicarb gtt francois dcd Neuro: - Patient is not alert or oriented. successful tracheostomy 03/12/18, poorly responsive, off fentanyl gtt. opens eyes to voice -versed prn - Head CT showed no acute pathology - Neuro consulted and on board. (Dr. Kuo + Dr. mejia) -ammonia stable in 60s w/ rifaximin, lactulose dcd Heme/Onc: - monitor H/H - Will transfuse to keep hb > 8 - Patient not receiving plasmapharesis today. - Paraproteinemia - Patient fulfills new criteria for multiple myeloma with free kappa/ free lambda light chain ratio of 432 (>100 is diagnostic of myeloma) - [place]/Lambda ratio > 100 consistent with Multiple myeloma - M spike elevated elevated at 6.8 previously 4.7 -steroids being held at this time transfuse to maintain Hg equal or > 8.0, as outlined in prior notes ideally A/C therapy to be continued indefinitely unless it is absolutely contraindicated considering his [id number] score of 6 -H/H remains stable of heparin gtt. -will cont to hold heparin given multiple attempts to restart it w/ sudden drop in Hgb likely due to a small GIB, thus requiring transfusions -fibrinogen nl - HIT AB neg -FOBT neg Endo: - Parathyroid hormone WNL - PTH-borderline low appropriate given hypercalcemia, PTHrP low Prophylaxis: -Off heparin gtt, s/p prbcs w/ appropriate response. FOBT neg transfuse to maintain Hg equal or > 8.0, as outlined in prior notes ideally A/C therapy to be continued indefinitely unless it is absolutely contraindicated considering his [id number] score of 6 -will cont to hold heparin given multiple attempts to restart it w/ sudden drop in Hgb likely due to a small GIB, thus requiring transfusions -SCDs - Protonix F/E/N: F: of IVF E: Will replete lytes PRN N: tube feeds (low potassium feeds). with free water. bicarb tabs Code Status: Full Code -GOC discussion ongoing -have recommended to family for compassionate extubation but they have decided on Trach/PEG successful tracheostomy 03/12/18 Dispo: Patient stable for transfer to floors. further care per primary team/PCP can start DC planning poor overall prognosis for meaningful recovery successful tracheostomy 03/12/18. Receiving 2u FFP prior to PEG. Visit type - Emergency Visit Emergency Visit: Yes ED Registration Date: 02/06/18 Care time: The patient presented to the Emergency Department on the above date and was hospitalized for further evaluation of their emergent condition. - New Patient This patient is new to me today: Yes Date on this admission: 03/15/18 - Critical Care Critical Care patient: Yes Total Critical Care Time (in minutes): 37 Critical Care Statement: The care of this patient involved high complexity decision making to prevent further life threatening deterioration of the patient 's condition and/or to evaluate & treat vital organ system(s) failure or risk of failure.
[2018-03-15] MEDS: METOPROLOL TARTRATE 25 MG TABLET (FP) NGT SCH (09:44)
[2018-03-15] MEDS: RIFAXIMIN 550 MG TABLET (UD) PO SCH (09:44)
[2018-03-15] MEDS: THIAMINE HCL 100 MG TABLET (FP) PO SCH (09:45)
[2018-03-15] MEDS: LACTOBACILLUS ACIDOPHILUS 1 TABLET PO SCH (09:45)
[2018-03-15] MEDS: CHLORHEXIDINE GLUCONATE 0.12% 15ML CUP MM SCH (09:45)
[2018-03-15] MEDS: PANTOPRAZOLE SODIUM 40 MG VIAL IVPUSH SCH (09:45)
[2018-03-15] MEDS: SODIUM BICARBONATE 650 MG TABLET NGT SCH (09:45)
[2018-03-15] MEDS: ALLOPURINOL 100 MG TABLET (FP) PO SCH (09:45)
[2018-03-15] MEDS: CHOLECALCIFEROL (VITAMIN D3) 1,000 UNIT TABLET (FP) PO SCH (09:45)
--- NOTE | 2018-03-15 10:57 | PN ---
Progress Note, Physician Chief Complaint: patient seen and examined in ICU off pressor off sedation vented ,s/p trach unresponsive feeding via NG tube - Current Medication List Current Medications: Active Medications Acetaminophen (Tylenol -) 650 mg PO Q6H PRN PRN Reason: PAIN LEVEL 1 - 3 Last Admin: 03/11/18 12:33 Dose: 650 mg Allopurinol (Zyloprim -) 100 mg PO BID [facility] Last Admin: 03/15/18 09:45 Dose: 100 mg Chlorhexidine Gluconate (Peridex -) 15 ml MM BID [facility] Last Admin: 03/15/18 09:45 Dose: 15 ml Cholecalciferol (Vitamin D3 -) 1,000 unit PO DAILY [facility] Last Admin: 03/15/18 09:45 Dose: 1,000 unit Diphenhydramine HCl (Benadryl Injection -) 25 mg IVPB ONCE PRN PRN Reason: DURING PLASMAPHERESIS Lactobacillus Acidophilus (Bacid -) 1 tab PO DAILY [facility] Last Admin: 03/15/18 09:45 Dose: 1 tab Metoprolol Tartrate (Lopressor Injection -) 5 mg IVPUSH Q8H PRN PRN Reason: TACHYCARDIA Last Admin: 03/14/18 08:34 Dose: 5 mg Metoprolol Tartrate (Lopressor -) 25 mg NGT BID [facility] Last Admin: 03/15/18 09:44 Dose: 25 mg Midazolam HCl (Versed -) 1 mg IVPUSH Q4H PRN PRN Reason: AGITATION Pantoprazole Sodium (Protonix Iv) 40 mg IVPUSH BID [facility] Last Admin: 03/15/18 09:45 Dose: 40 mg Rifaximin (Xifaxan -) 550 mg PO BID [facility] Last Admin: 03/15/18 09:44 Dose: 550 mg Sodium Bicarbonate (Sodium Bicarbonate -) 650 mg NGT DAILY [facility] Last Admin: 03/15/18 09:45 Dose: 650 mg Thiamine HCl (Vitamin B1 -) 100 mg PO DAILY [facility] Last Admin: 03/15/18 09:45 Dose: 100 mg - Objective Vital Signs: Vital Signs Temperature 98.1 F 03/15/18 10:00 Pulse Rate 127 H 03/15/18 10:00 Respiratory Rate 19 03/15/18 10:00 Blood Pressure 109/76 03/15/18 10:00 O2 Sat by Pulse Oximetry (%) 100 03/15/18 08:45 Constitutional: Yes: Calm Neck: Yes: Other (trach) Cardiovascular: Yes: S1, S2 Respiratory: Yes: CTA Bilaterally Gastrointestinal: Yes: Normal Bowel Sounds, Soft ...Rectal Exam: Yes: Other (rectal tube) Genitourinary: Yes: Brenner Present Edema: Yes Labs: CBC, BMP 03/15/18 05:30 03/15/18 05:30 INR, PTT INR 1.69 (0.83-1.09) H 03/15/18 05:30 Fibrinogen 338.0 mg/dL (238-498) D 03/12/18 20:00 Problem List - Problems (1) Elevated LFTs Assessment/Plan: ultrasound of liver noted suggestive of acalculous cholecystitis, on rifaximin Code(s): R94.5 - ABNORMAL RESULTS OF LIVER FUNCTION STUDIES (2) MELITA (acute kidney injury) Assessment/Plan: MELITA vs ATN- iv calcium- repleted potassium now normal range- hyperkalemia improved on sodium bicarbonate Code(s): N17.9 - ACUTE KIDNEY FAILURE, UNSPECIFIED (3) Atrial fibrillation with RVR Assessment/Plan: off AC because of bleeding h/h dropped rate control with metoprolol (4) Respiratory failure Assessment/Plan: s/p trach off pressors and sedation s/p levaquin and flagyl course Code(s): J96.90 - RESPIRATORY FAILURE, UNSP, UNSP W HYPOXIA OR HYPERCAPNIA (5) Toxic metabolic encephalopathy Assessment/Plan: s/p abx course Code(s): G92 - TOXIC ENCEPHALOPATHY (6) Altered mental status Assessment/Plan: plan for peg insertion today s/p trach s/p dexamethasone - no improvement in mental status s/p plasmapheresis dvt ppx lovenox newly diagnosed Multiple Myeloma- anemia paraproteinemia, Code(s): R41.82 - ALTERED MENTAL STATUS, UNSPECIFIED Assessment/Plan plan for peg insertion today
--- NOTE | 2018-03-15 11:03 | PN ---
Progress Note, Physician History of Present Illness: Poorly responsive on vent s/p tracheostomy, persistent afib on lopressor off heparin gtt due to Hgb decreases. - Current Medication List Current Medications: Active Medications Acetaminophen (Tylenol -) 650 mg PO Q6H PRN PRN Reason: PAIN LEVEL 1 - 3 Last Admin: 03/11/18 12:33 Dose: 650 mg Allopurinol (Zyloprim -) 100 mg PO BID [facility] Last Admin: 03/15/18 09:45 Dose: 100 mg Chlorhexidine Gluconate (Peridex -) 15 ml MM BID [facility] Last Admin: 03/15/18 09:45 Dose: 15 ml Cholecalciferol (Vitamin D3 -) 1,000 unit PO DAILY [facility] Last Admin: 03/15/18 09:45 Dose: 1,000 unit Diphenhydramine HCl (Benadryl Injection -) 25 mg IVPB ONCE PRN PRN Reason: DURING PLASMAPHERESIS Lactobacillus Acidophilus (Bacid -) 1 tab PO DAILY [facility] Last Admin: 03/15/18 09:45 Dose: 1 tab Metoprolol Tartrate (Lopressor Injection -) 5 mg IVPUSH Q8H PRN PRN Reason: TACHYCARDIA Last Admin: 03/14/18 08:34 Dose: 5 mg Metoprolol Tartrate (Lopressor -) 25 mg NGT BID [facility] Last Admin: 03/15/18 09:44 Dose: 25 mg Midazolam HCl (Versed -) 1 mg IVPUSH Q4H PRN PRN Reason: AGITATION Pantoprazole Sodium (Protonix Iv) 40 mg IVPUSH BID [facility] Last Admin: 03/15/18 09:45 Dose: 40 mg Rifaximin (Xifaxan -) 550 mg PO BID [facility] Last Admin: 03/15/18 09:44 Dose: 550 mg Sodium Bicarbonate (Sodium Bicarbonate -) 650 mg NGT DAILY [facility] Last Admin: 03/15/18 09:45 Dose: 650 mg Thiamine HCl (Vitamin B1 -) 100 mg PO DAILY [facility] Last Admin: 03/15/18 09:45 Dose: 100 mg - Objective Vital Signs: Vital Signs Temperature 98.1 F 03/15/18 10:00 Pulse Rate 127 H 03/15/18 10:00 Respiratory Rate 19 03/15/18 10:00 Blood Pressure 109/76 03/15/18 10:00 O2 Sat by Pulse Oximetry (%) 100 03/15/18 08:45 Constitutional: Yes: No Distress, Calm, Thin Neck: Yes: Supple, Other (Tracheostomy) Cardiovascular: Yes: Pulse Irregular Respiratory: Yes: Mechanically Ventilated Gastrointestinal: Yes: Soft, Hypoactive Bowel Sounds Edema: Yes Edema: LUE: 1+, RUE: 1+ Labs: CBC, BMP 03/15/18 05:30 03/15/18 05:30 INR, PTT INR 1.69 (0.83-1.09) H 03/15/18 05:30 Fibrinogen 338.0 mg/dL (238-498) D 03/12/18 20:00 - ....Imaging EKG: Report Reviewed (Tele: Afib) Problem List - Problems (1) Atrial fibrillation with RVR Code(s): I48.91 - UNSPECIFIED ATRIAL FIBRILLATION (2) [id number] kidney injury Code(s): N17.9 - ACUTE KIDNEY FAILURE, UNSPECIFIED; N18.9 - CHRONIC KIDNEY DISEASE, UNSPECIFIED Qualifiers: Acute renal failure type: unspecified Chronic kidney disease stage: unspecified stage Qualified Code(s): N17.9 - Acute kidney failure, unspecified ; N18.9 - Chronic kidney disease, unspecified (3) Demand ischemia Code(s): I24.8 - OTHER FORMS OF ACUTE ISCHEMIC HEART DISEASE (4) Hypercalcemia Code(s): E83.52 - HYPERCALCEMIA (5) Nonadherence to medication Code(s): Z91.14 - PATIENT'S OTHER NONCOMPLIANCE WITH MEDICATION REGIMEN (6) Paraproteinemia Code(s): D89.2 - HYPERGAMMAGLOBULINEMIA, UNSPECIFIED (7) Anticoagulant long-term use Code(s): Z79.01 - CHEMICAL DETECTION EXPERT (CURRENT) USE OF ANTICOAGULANTS (8) Chronic thromboembolic disease Code(s): I74.9 - EMBOLISM AND THROMBOSIS OF UNSPECIFIED ARTERY (9) Coronary artery disease Code(s): I25.10 - ATHSCL HEART DISEASE OF [place] CORONARY ARTERY W/O ANG PCTRS Qualifiers: Coronary Disease-Associated Artery/Lesion type: [place] artery [place] vs. transplanted heart: [place] heart Associated angina: without angina Qualified Code(s): I25.10 - Atherosclerotic heart disease of [place] coronary artery without angina pectoris (10) Diastolic dysfunction without heart failure Code(s): I51.9 - HEART DISEASE, UNSPECIFIED (11) HTN (hypertension) Code(s): I10 - ESSENTIAL (PRIMARY) HYPERTENSION Qualifiers: Hypertension type: essential hypertension Qualified Code(s): I10 - Essential (primary) hypertension (12) Hypertrophic cardiomyopathy Code(s): I42.2 - OTHER HYPERTROPHIC CARDIOMYOPATHY (13) Hyperlipidemia Code(s): E78.5 - HYPERLIPIDEMIA, UNSPECIFIED Qualifiers: Hyperlipidemia type: pure hypercholesterolemia Qualified Code(s): E78.00 - Pure hypercholesterolemia, unspecified; E78.0 - Pure hypercholesterolemia (14) Multiple myeloma Code(s): C90.00 - MULTIPLE MYELOMA NOT HAVING ACHIEVED REMISSION Qualifiers: Multiple myeloma remission status: not in remission Qualified Code(s): C90.00 - Multiple myeloma not having achieved remission (15) Acalculous cholecystitis Code(s): K81.9 - CHOLECYSTITIS, UNSPECIFIED Assessment/Plan R&LHc at [facility] 04/20/2016 showing nonobstructive CAD, severe LV apical hypertrophic cardiomyopathy, mildly elevated right sided pressures, Mynx deployed right [employer] TECH[employer]ICIAN access site. 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 Echocardiogram: 10/18/2017 Mod cLVH, severe PURVI, mod TR RVSP 50-60 mmHg, mod- severe MR Echocardiogram: 01/23/2018 Normal LV size with hyperdynamic LVEF 75%, mild BSH, normal RV size and fxn, severe LAE, mod-severe MR, mod TR 1. Acute hypoxic respiratory failure, suspected aspiration pneumonia with sepsis syndrome, remains intubated post tracheostomy 2. Toxic metabolic encephalopathy, rule out CVA 3. Acute on CKD 4. Paraproteinemia confirmed multiple myeloma 5. History of bilateral SFA occlusion post thrombectomy, most likely embolic disease related to persistent atrial fibrillation 6. CAD with evidence of demand ischemia, non obstructive CAD 7. 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 Persistent atrial fibrillation [id number] score of 6 9. HTN 10. Anemia/thrombocytopenia 11. Acalculous Cholecystitis 12. Ischemic hepatitis 13. Resolved Hypernatremia PLAN: 1. Consider A/C therapy unless it is absolutely contraindicated considering his [id number] score of 6 and stroke risk, previously was on NOAC. In the interim consider Heparin gtt, albeit repeated Hgb drops on anticoagulation is major caveat. 2. Continue Lopressor 25 bid and titrate dose. 3. Antibiotics coverage 4. Ventilator management as per the ICU team 5. ? PEG 6. ? goal of care and advanced directives need to be readdressed.
[2018-03-15 11:10] LABS: ANISOCYTOSIS 2+; MACROCYTOSIS 1+; PLATELET ESTIMATE DECREASED; TARGET CELLS 1+
--- NOTE | 2018-03-15 12:08 | PN ---
Teaching Attending Note Name of Resident: Bola Griffith ATTENDING PHYSICIAN STATEMENT I saw and evaluated the patient. I reviewed the resident's note and discussed the case with the resident. I agree with the resident's findings and plan as documented. SUBJECTIVE: Patient seen and examined in the ICU. No acute events overnight. OBJECTIVE: Intake & Output 03/12/18 03/13/18 03/14/18 03/15/18 23:59 23:59 23:59 23:59 Intake Total 1296 1175 2650 450 Output Total 950 1200 0 Balance 346 -25 2650 450 Weight 226 lb 6.4 oz 228 lb 6.4 oz 230 lb 1.6 oz 232 lb 4.8 oz Last Vital Signs Temp Pulse Resp BP Pulse Ox 98.1 F 127 H 24 H 109/76 100 03/15/18 10:00 03/15/18 10:00 03/15/18 11:15 03/15/18 10:00 03/15/18 09:00 Active Medications Acetaminophen (Tylenol -) 650 mg PO Q6H PRN PRN Reason: PAIN LEVEL 1 - 3 Last Admin: 03/11/18 12:33 Dose: 650 mg Allopurinol (Zyloprim -) 100 mg PO BID [facility] Last Admin: 03/15/18 09:45 Dose: 100 mg Chlorhexidine Gluconate (Peridex -) 15 ml MM BID [facility] Last Admin: 03/15/18 09:45 Dose: 15 ml Cholecalciferol (Vitamin D3 -) 1,000 unit PO DAILY [facility] Last Admin: 03/15/18 09:45 Dose: 1,000 unit Diphenhydramine HCl (Benadryl Injection -) 25 mg IVPB ONCE PRN PRN Reason: DURING PLASMAPHERESIS Lactobacillus Acidophilus (Bacid -) 1 tab PO DAILY [facility] Last Admin: 03/15/18 09:45 Dose: 1 tab Metoprolol Tartrate (Lopressor Injection -) 5 mg IVPUSH Q8H PRN PRN Reason: TACHYCARDIA Last Admin: 03/14/18 08:34 Dose: 5 mg Metoprolol Tartrate (Lopressor -) 25 mg NGT BID [facility] Last Admin: 03/15/18 09:44 Dose: 25 mg Midazolam HCl (Versed -) 1 mg IVPUSH Q4H PRN PRN Reason: AGITATION Pantoprazole Sodium (Protonix Iv) 40 mg IVPUSH BID [facility] Last Admin: 03/15/18 09:45 Dose: 40 mg Rifaximin (Xifaxan -) 550 mg PO BID [facility] Last Admin: 03/15/18 09:44 Dose: 550 mg Sodium Bicarbonate (Sodium Bicarbonate -) 650 mg NGT DAILY [facility] Last Admin: 03/15/18 09:45 Dose: 650 mg Thiamine HCl (Vitamin B1 -) 100 mg PO DAILY [facility] Last Admin: 03/15/18 09:45 Dose: 100 mg Gen: Trached, vented, poorly responsive Heart: RRR Lung: scattered rhonchi Abd: soft, nontender Ext: + edema Laboratory Results - last 24 hr 03/14/18 03/14/18 03/15/18 08:05 16:00 05:30 WBC 3.7 L RBC 2.70 L Hgb 8.0 L Hct 24.2 L MCV 89.6 MCH 29.8 MCHC 33.2 RDW 15.5 Plt Count 155 MPV 9.2 Absolute Neuts (auto) 2.5 Neutrophils % 67.2 Neutrophils % (Manual) 57.8 Band Neutrophils % 5.6 Lymphocytes % 22.6 Lymphocytes % (Manual) 23.3 D Monocytes % 8.0 Monocytes % (Manual) 9 Eosinophils % 1.7 Eosinophils % (Manual) 0.0 Basophils % 0.5 Basophils % (Manual) 0.0 Myelocytes % (Man) 0 D Promyelocytes % (Man) 0 Blast Cells % (Manual) 0 Nucleated RBC % 10 H Metamyelocytes 3 H D PT with INR 21.00 H INR 1.77 H PTT (Actin FS) Sodium Potassium Chloride Carbon Dioxide Anion Gap BUN Creatinine Creat Clearance w eGFR Random Glucose Calcium Phosphorus Magnesium Total Bilirubin AST ALT Alkaline Phosphatase Total Protein Albumin 03/15/18 03/15/18 05:30 05:30 WBC RBC Hgb Hct MCV MCH MCHC RDW Plt Count MPV Absolute Neuts (auto) Neutrophils % Neutrophils % (Manual) Band Neutrophils % Lymphocytes % Lymphocytes % (Manual) Monocytes % Monocytes % (Manual) Eosinophils % Eosinophils % (Manual) Basophils % Basophils % (Manual) Myelocytes % (Man) Promyelocytes % (Man) Blast Cells % (Manual) Nucleated RBC % Metamyelocytes PT with INR 20.00 H INR 1.69 H PTT (Actin FS) 25.9 Sodium 144 Potassium 4.7 Chloride 118 H Carbon Dioxide 22 Anion Gap 4 L BUN 42 H Creatinine 1.3 Creat Clearance w eGFR 53.25 Random Glucose 98 Calcium 7.0 L Phosphorus 3.6 Magnesium 1.8 Total Bilirubin 0.9 AST 89 H ALT 35 Alkaline Phosphatase 240 H Total Protein 9.3 H Albumin 1.4 L ASSESSMENT AND PLAN: Acute Hypoxic Respiratory Failure: S/P Trach Altered Mental Status Metabolic Encephalopathy Pneumonia Acalculous Cholecystitis Multiple Myeloma Acute on Chronic Renal Failure Metabolic Acidosis LV Diastolic Dysfunction Atrial Fibrillation CAD +Troponins likely Demand Ischemia PAD Hyperlipidemia HTN Anemia - rate control - DVT/GI prophylaxis - D/C planning Dr Walker
[2018-03-15] MEDS: ACETAMINOPHEN 325 MG TABLET (FP) PO PRN (14:15)
[2018-03-15] MEDS ORDERED: ACETAMINOPHEN 325 MG TABLET (FP) PO PRN (17:55)
[2018-03-15] MEDS ORDERED: METOPROLOL TARTRATE 5 MG/5 ML VIAL IVPUSH PRN (17:55)
[2018-03-15] MEDS ORDERED: MIDAZOLAM HCL 2 MG/2 ML SINGLE DOSE VIAL IVPUSH PRN (17:55)
[2018-03-15] MEDS: ALLOPURINOL 100 MG TABLET (FP) PEG SCH (22:11)
[2018-03-15] MEDS: RANITIDINE HCL 150 MG/10 ML UNIT-DOSE PEG SCH (22:11)
[2018-03-15] MEDS: METOPROLOL TARTRATE 25 MG TABLET (FP) PEG SCH (22:11)
[2018-03-15] MEDS: RIFAXIMIN 550 MG TABLET (UD) NR SCH (22:11)
[2018-03-16 07:16] LABS: ALBUMIN 1.4 g/dl (3.4-5.0); ALK PHOS 258 U/L (45-117); ANION GAP 5 MMOL/L (8-16); BLOOD UREA NITROGEN 46 mg/dL (7-18); CHLORIDE 118 mmol/L (98-107); CO2 23 mmol/L (21-32); CREATININE 1.4 mg/dL (0.55-1.3); GLUCOSE,RANDOM 111 mg/dL (74-106); POTASSIUM 4.8 mmol/L (3.5-5.1); SGOT/AST 98 U/L (15-37); SGPT/ALT 42 U/L (13-61); SODIUM 146 mmol/L (136-145); TOT PROT 9.4 g/dl (6.4-8.2)
[2018-03-16 07:22] LABS: BASO % 0.7 % (0-2.0); EOS % 0.9 % (0-4.5); HEMATOCRIT 25.7 % (35.4-49); HEMOGLOBIN 8.3 GM/dL (11.7-16.9); LYMPH % 22.6 % (8-40); MCH 29.6 pg (25.7-33.7); MCHC 32.3 g/dl (32.0-35.9); MEAN CELL VOLUME 91.8 fl (80-96); MEAN PLT VOLUME 9.9 fl (7.5-11.1); MONO % 8.3 % (3.8-10.2); NEUT % 67.5 % (42.8-82.8); PLATELET COUNT 157 K/MM3 (134-434); RDW 15.8 % (11.9-15.9)
--- NOTE | 2018-03-16 09:04 | PN ---
Progress Note, Physician - Current Medication List Current Medications: Active Medications Acetaminophen (Tylenol -) 650 mg NR Q6H PRN PRN Reason: PAIN LEVEL 1 - 3 Allopurinol (Zyloprim -) 100 mg PEG BID [facility] Last Admin: 03/15/18 22:11 Dose: 100 mg Cholecalciferol (Vitamin D3 -) 1,000 unit NR DAILY [facility] Diphenhydramine HCl (Benadryl Injection -) 25 mg IVPB ONCE PRN PRN Reason: DURING PLASMAPHERESIS Lactobacillus Acidophilus (Bacid -) 1 tab PEG DAILY [facility] Metoprolol Tartrate (Lopressor -) 25 mg PEG BID [facility] Last Admin: 03/15/18 22:11 Dose: 25 mg Ranitidine HCl (Zantac Oral Solution -) 150 mg PEG BID [facility] Last Admin: 03/15/18 22:11 Dose: 150 mg Rifaximin (Xifaxan -) 550 mg NR BID [facility] Last Admin: 03/15/18 22:11 Dose: 550 mg Sodium Bicarbonate (Sodium Bicarbonate -) 650 mg PEG DAILY [facility] Thiamine HCl (Vitamin B1 -) 100 mg NR DAILY [facility] - Objective Vital Signs: Vital Signs Temperature 99.8 F H 03/16/18 06:00 Pulse Rate 88 03/16/18 06:55 Respiratory Rate 22 H 03/16/18 06:50 Blood Pressure 122/73 03/16/18 06:00 O2 Sat by Pulse Oximetry (%) 99 03/16/18 06:55 Cardiovascular: Yes: S1, S2 Respiratory: Yes: Mechanically Ventilated Gastrointestinal: Yes: Normal Bowel Sounds, Soft Labs: CBC, BMP 03/16/18 06:00 03/16/18 06:00 INR, PTT INR 1.69 (0.83-1.09) H 03/15/18 05:30 Fibrinogen 338.0 mg/dL (238-498) D 03/12/18 20:00 Problem List - Problems (1) Toxic metabolic encephalopathy Code(s): G92 - TOXIC ENCEPHALOPATHY (2) Cellulitis Code(s): L03.90 - CELLULITIS, UNSPECIFIED Qualifiers: Site of cellulitis: extremity Site of cellulitis of extremity: lower extremity Laterality: right Qualified Code(s): L03.115 - Cellulitis of right lower limb (3) Sepsis Code(s): A41.9 - SEPSIS, UNSPECIFIED ORGANISM (4) Artery occlusion Code(s): I70.90 - UNSPECIFIED ATHEROSCLEROSIS (5) Hypercalcemia Code(s): E83.52 - HYPERCALCEMIA (6) Paroxysmal atrial fibrillation Code(s): I48.0 - PAROXYSMAL ATRIAL FIBRILLATION (7) MELITA (acute kidney injury) Code(s): N17.9 - ACUTE KIDNEY FAILURE, UNSPECIFIED Assessment/Plan (1) MELITA (acute kidney injury) Assessment/Plan: potassium now normal range- hyperkalemia improved ultrasound hyperdense lesion noted in left renal cortex Code(s): N17.9 - ACUTE KIDNEY FAILURE, UNSPECIFIED (2) Atrial fibrillation with RVR Assessment/Plan: heparin drip --dc due to anemia manager monitoring rate control with metoprolol (3) Respiratory failure Assessment/Plan: S/p Trach Vwnt setting per pulm Code(s): J96.90 - RESPIRATORY FAILURE, UNSP, UNSP W HYPOXIA OR HYPERCAPNIA (4) Toxic metabolic encephalopathy Assessment/Plan: Microbiology S/p Rx for PNA Code(s): G92 - TOXIC ENCEPHALOPATHY (5) Anemia Assessment/Plan: -Hold Heparin -Transfuse (6) Nutrition Assessment/Plan: peg in place
[2018-03-16] MEDS ORDERED: PANTOPRAZOLE 40 MG TABLET (FP) PO SCH (10:00)
[2018-03-16] MEDS: LACTOBACILLUS ACIDOPHILUS 1 TABLET PEG SCH (11:25)
[2018-03-16] MEDS: RIFAXIMIN 550 MG TABLET (UD) NR SCH ×2 (11:25→22:00)
[2018-03-16] MEDS: CHOLECALCIFEROL (VITAMIN D3) 1,000 UNIT TABLET (FP) NR SCH (11:25)
[2018-03-16] MEDS: METOPROLOL TARTRATE 25 MG TABLET (FP) PEG SCH ×2 (11:26→22:00)
[2018-03-16] MEDS: THIAMINE HCL 100 MG TABLET (FP) NR SCH (11:26)
[2018-03-16] MEDS: ALLOPURINOL 100 MG TABLET (FP) PEG SCH ×2 (11:26→22:00)
[2018-03-16] MEDS: RANITIDINE HCL 150 MG/10 ML UNIT-DOSE PEG SCH ×2 (11:26→22:00)
[2018-03-16] MEDS: SODIUM BICARBONATE 650 MG TABLET PEG SCH (11:27)
[2018-03-16 11:51] LABS: ANISOCYTOSIS 1+; MACROCYTOSIS 0; PLATELET ESTIMATE DECREASED; ROULEAU 1+
--- NOTE | 2018-03-16 11:54 | PN ---
Progress Note, Physician History of Present Illness: Unresponsive on vent s/p tracheostomy, persistent afib on lopressor off heparin gtt due to Hgb decreases. Underwent PEG placement yesterday. - Current Medication List Current Medications: Active Medications Acetaminophen (Tylenol -) 650 mg NR Q6H PRN PRN Reason: PAIN LEVEL 1 - 3 Allopurinol (Zyloprim -) 100 mg PEG BID [facility] Last Admin: 03/16/18 11:26 Dose: 100 mg Cholecalciferol (Vitamin D3 -) 1,000 unit NR DAILY [facility] Last Admin: 03/16/18 11:25 Dose: 1,000 unit Diphenhydramine HCl (Benadryl Injection -) 25 mg IVPB ONCE PRN PRN Reason: DURING PLASMAPHERESIS Lactobacillus Acidophilus (Bacid -) 1 tab PEG DAILY [facility] Last Admin: 03/16/18 11:25 Dose: 1 tab Metoprolol Tartrate (Lopressor -) 25 mg PEG BID [facility] Last Admin: 03/16/18 11:26 Dose: 25 mg Ranitidine HCl (Zantac Oral Solution -) 150 mg PEG BID [facility] Last Admin: 03/16/18 11:26 Dose: 150 mg Rifaximin (Xifaxan -) 550 mg NR BID [facility] Last Admin: 03/16/18 11:25 Dose: 550 mg Sodium Bicarbonate (Sodium Bicarbonate -) 650 mg PEG DAILY [facility] Last Admin: 03/16/18 11:27 Dose: 650 mg Thiamine HCl (Vitamin B1 -) 100 mg NR DAILY [facility] Last Admin: 03/16/18 11:26 Dose: 100 mg - Objective Vital Signs: Vital Signs Temperature 99.8 F H 03/16/18 06:00 Pulse Rate 92 H 03/16/18 10:44 Respiratory Rate 29 H 03/16/18 10:30 Blood Pressure 140/80 03/16/18 10:00 O2 Sat by Pulse Oximetry (%) 98 03/16/18 10:44 Constitutional: Yes: No Distress, Calm, Thin Neck: Yes: Supple Cardiovascular: Yes: Pulse Irregular Respiratory: Yes: Mechanically Ventilated Gastrointestinal: Yes: Normal Bowel Sounds, Soft, Other (PEG in place) Edema: Yes Labs: CBC, BMP 03/16/18 06:00 03/16/18 06:00 INR, PTT INR 1.69 (0.83-1.09) H 03/15/18 05:30 Fibrinogen 338.0 mg/dL (238-498) D 03/12/18 20:00 Problem List - Problems (1) Atrial fibrillation with RVR Code(s): I48.91 - UNSPECIFIED ATRIAL FIBRILLATION (2) [id number] kidney injury Code(s): N17.9 - ACUTE KIDNEY FAILURE, UNSPECIFIED; N18.9 - CHRONIC KIDNEY DISEASE, UNSPECIFIED Qualifiers: Acute renal failure type: unspecified Chronic kidney disease stage: unspecified stage Qualified Code(s): N17.9 - Acute kidney failure, unspecified ; N18.9 - Chronic kidney disease, unspecified (3) Demand ischemia Code(s): I24.8 - OTHER FORMS OF ACUTE ISCHEMIC HEART DISEASE (4) Hypercalcemia Code(s): E83.52 - HYPERCALCEMIA (5) Nonadherence to medication Code(s): Z91.14 - PATIENT'S OTHER NONCOMPLIANCE WITH MEDICATION REGIMEN (6) Paraproteinemia Code(s): D89.2 - HYPERGAMMAGLOBULINEMIA, UNSPECIFIED (7) Anticoagulant long-term use Code(s): Z79.01 - HAY CHOPPER (CURRENT) USE OF ANTICOAGULANTS (8) Chronic thromboembolic disease Code(s): I74.9 - EMBOLISM AND THROMBOSIS OF UNSPECIFIED ART[place] (9) Coronary artery disease Code(s): I25.10 - ATHSCL HEART DISEASE OF [place] CORONARY ARTERY W/O ANG PCTRS Qualifiers: Coronary Disease-Associated Artery/Lesion type: [place] artery [place] vs. transplanted heart: [place] heart Associated angina: without angina Qualified Code(s): I25.10 - Atherosclerotic heart disease of [place] coronary artery without angina pectoris (10) Diastolic dysfunction without heart failure Code(s): I51.9 - HEART DISEASE, UNSPECIFIED (11) HTN (hypertension) Code(s): I10 - ESSENTIAL (PRIMARY) HYPERTENSION Qualifiers: Hypertension type: essential hypertension Qualified Code(s): I10 - Essential (primary) hypertension (12) Hypertrophic cardiomyopathy Code(s): I42.2 - OTHER HYPERTROPHIC CARDIOMYOPATHY (13) Hyperlipidemia Code(s): E78.5 - HYPERLIPIDEMIA, UNSPECIFIED Qualifiers: Hyperlipidemia type: pure hypercholesterolemia Qualified Code(s): E78.00 - Pure hypercholesterolemia, unspecified; E78.0 - Pure hypercholesterolemia (14) Multiple myeloma Code(s): C90.00 - MULTIPLE MYELOMA NOT HAVING ACHIEVED REMISSION Qualifiers: Multiple myeloma remission status: not in remission Qualified Code(s): C90.00 - Multiple myeloma not having achieved remission (15) Acalculous cholecystitis Code(s): K81.9 - CHOLECYSTITIS, UNSPECIFIED Assessment/Plan R&LHc at [facility] 04/20/2016 showing nonobstructive CAD, severe LV apical hypertrophic cardiomyopathy, mildly elevated right sided pressures, Mynx deployed right [employer] access site. 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 Echocardiogram: 10/18/2017 Mod cLVH, severe PURVI, mod TR RVSP 50-60 mmHg, mod- severe MR Echocardiogram: 01/23/2018 Normal LV size with hyperdynamic LVEF 75%, mild BSH, normal RV size and fxn, severe LAE, mod-severe MR, mod TR 1. Acute hypoxic respiratory failure, suspected aspiration pneumonia with sepsis syndrome, remains intubated post tracheostomy 2. Toxic metabolic encephalopathy, rule out CVA 3. Acute on CKD 4. Paraproteinemia confirmed multiple myeloma 5. History of bilateral SFA occlusion post thrombectomy, most likely embolic disease related to persistent atrial fibrillation 6. CAD with evidence of demand ischemia, non obstructive CAD 7. 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 Persistent atrial fibrillation [id number] score of 6 9. HTN 10. Anemia/thrombocytopenia 11. Acalculous Cholecystitis 12. Ischemic hepatitis 13. Resolved Hypernatremia PLAN: 1. Consider A/C therapy unless it is absolutely contraindicated considering his [id number] score of 6 and stroke risk, previously was on NOAC. In the interim consider Heparin gtt, albeit repeated Hgb drops on anticoagulation is major caveat. 2. Continue Lopressor 25 bid and titrate dose. 3. Antibiotics coverage 4. Ventilator management as per the ICU team 5. Enteral feeds per PEG 6. Placement to chronic vent facility
[2018-03-16 11:58] LABS: CORRECTED WBC 4.13 K/mm3
--- NOTE | 2018-03-16 11:58 | PN ---
Progress Note (short form) - Note Progress Note: Renal follow up for Hypercalcemia/MELITA Pt seen and examined at the bedside on vent via trach, not responsive no overnight events on tube feeds rectal tube in place Vital Signs Temperature 99.8 F H 03/16/18 06:00 Pulse Rate 92 H 03/16/18 10:44 Respiratory Rate 29 H 03/16/18 10:30 Blood Pressure 140/80 03/16/18 10:00 O2 Sat by Pulse Oximetry (%) 98 03/16/18 10:44 Intake & Output 03/13/18 03/14/18 03/15/18 03/16/18 23:59 23:59 23:59 23:59 Intake Total 1175 2650 450 Output Total 1200 0 Balance -25 2650 450 Weight 103.6 kg 104.372 kg 105.37 kg CBC, BMP 03/16/18 06:00 03/16/18 06:00 Current Medications Acetaminophen (Tylenol -) 650 mg NR Q6H PRN PRN Reason: PAIN LEVEL 1 - 3 Allopurinol (Zyloprim -) 100 mg PEG BID [facility] Last Admin: 03/16/18 11:26 Dose: 100 mg Cholecalciferol (Vitamin D3 -) 1,000 unit NR DAILY [facility] Last Admin: 03/16/18 11:25 Dose: 1,000 unit Diphenhydramine HCl (Benadryl Injection -) 25 mg IVPB ONCE PRN PRN Reason: DURING PLASMAPHERESIS Lactobacillus Acidophilus (Bacid -) 1 tab PEG DAILY [facility] Last Admin: 03/16/18 11:25 Dose: 1 tab Metoprolol Tartrate (Lopressor -) 25 mg PEG BID [facility] Last Admin: 03/16/18 11:26 Dose: 25 mg Ranitidine HCl (Zantac Oral Solution -) 150 mg PEG BID [facility] Last Admin: 03/16/18 11:26 Dose: 150 mg Rifaximin (Xifaxan -) 550 mg NR BID [facility] Last Admin: 03/16/18 11:25 Dose: 550 mg Sodium Bicarbonate (Sodium Bicarbonate -) 650 mg PEG DAILY [facility] Last Admin: 03/16/18 11:27 Dose: 650 mg Thiamine HCl (Vitamin B1 -) 100 mg NR DAILY [facility] Last Admin: 03/16/18 11:26 Dose: 100 mg 77 year old gentleman with hx of CKD, Afib on A/C, CAD, CKD, Hypertension, Hyperlipidemia, PVD who presented with AMS/Confusion and found to have MELITA. #MELITA ATN vs. 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 tubular injury, US showed no stones or obstruction, UA w/o protein but UPCR ~0.5 indicating non- albumin proteinuria) #AMS #Newly diagnosed multiple myloma #Anemia #Hypercalcemia of Malignancy (PTH is low) #Hyperdense lesion on US of the kidney #Normal anion gap metabolic acidosis #Hyperkalemia (now resolved) Renal function stable at this time continue tube feeds trend electrolytes while in patient continue vent support prognosis is poor Mack Miller DO
[2018-03-16 13:31] VITALS: BMI 31.4
--- NOTE | 2018-03-16 13:55 | PN ---
Progress Note, Physician History of Present Illness: PULMONARY UNRESPONSIVE ON VENT SUPPORT AC MODE,TACHYPNEIC - Current Medication List Current Medications: Active Medications Acetaminophen (Tylenol -) 650 mg NR Q6H PRN PRN Reason: PAIN LEVEL 1 - 3 Allopurinol (Zyloprim -) 100 mg PEG BID [facility] Last Admin: 03/16/18 11:26 Dose: 100 mg Cholecalciferol (Vitamin D3 -) 1,000 unit NR DAILY [facility] Last Admin: 03/16/18 11:25 Dose: 1,000 unit Diphenhydramine HCl (Benadryl Injection -) 25 mg IVPB ONCE PRN PRN Reason: DURING PLASMAPHERESIS Lactobacillus Acidophilus (Bacid -) 1 tab PEG DAILY [facility] Last Admin: 03/16/18 11:25 Dose: 1 tab Metoprolol Tartrate (Lopressor -) 25 mg PEG BID [facility] Last Admin: 03/16/18 11:26 Dose: 25 mg Ranitidine HCl (Zantac Oral Solution -) 150 mg PEG BID [facility] Last Admin: 03/16/18 11:26 Dose: 150 mg Rifaximin (Xifaxan -) 550 mg NR BID [facility] Last Admin: 03/16/18 11:25 Dose: 550 mg Sodium Bicarbonate (Sodium Bicarbonate -) 650 mg PEG DAILY [facility] Last Admin: 03/16/18 11:27 Dose: 650 mg Thiamine HCl (Vitamin B1 -) 100 mg NR DAILY [facility] Last Admin: 03/16/18 11:26 Dose: 100 mg - Objective Vital Signs: Vital Signs Temperature 99.8 F H 03/16/18 06:00 Pulse Rate 92 H 03/16/18 10:44 Respiratory Rate 29 H 03/16/18 10:30 Blood Pressure 140/80 03/16/18 10:00 O2 Sat by Pulse Oximetry (%) 98 03/16/18 10:44 Constitutional: Yes: Well Nourished, Other (UNRESPONSIVE) Eyes: Yes: WNL HENT: Yes: WNL Neck: Yes: Supple (TRACH) Cardiovascular: Yes: Regular Rate and Rhythm, S1, S2 Respiratory: Yes: Rhonchi (FEW SCATTERED LEIDY RHONCHI) Gastrointestinal: Yes: Normal Bowel Sounds, Soft Extremities: Yes: WNL Edema: Yes Labs: CBC, BMP 03/16/18 06:00 03/16/18 06:00 INR, PTT INR 1.69 (0.83-1.09) H 03/15/18 05:30 Fibrinogen 338.0 mg/dL (238-498) D 03/12/18 20:00 Problem List - Problems (1) Acute hypoxemic respiratory failure Code(s): J96.01 - ACUTE RESPIRATORY FAILURE WITH HYPOXIA (2) Acalculous cholecystitis Code(s): K81.9 - CHOLECYSTITIS, UNSPECIFIED (3) Anemia Code(s): D64.9 - ANEMIA, UNSPECIFIED (4) Atrial fibrillation with RVR Code(s): I48.91 - UNSPECIFIED ATRIAL FIBRILLATION (5) Multiple myeloma Code(s): C90.00 - MULTIPLE MYELOMA NOT HAVING ACHIEVED REMISSION Qualifiers: Multiple myeloma remission status: not in remission Qualified Code(s): C90.00 - Multiple myeloma not having achieved remission (6) Respiratory failure Code(s): J96.90 - RESPIRATORY FAILURE, UNSP, UNSP W HYPOXIA OR HYPERCAPNIA (7) Sepsis Code(s): A41.9 - SEPSIS, UNSPECIFIED ORGANISM (8) Toxic metabolic encephalopathy Code(s): G92 - TOXIC ENCEPHALOPATHY (9) [id number] kidney injury Code(s): N17.9 - ACUTE KIDNEY FAILURE, UNSPECIFIED; N18.9 - CHRONIC KIDNEY DISEASE, UNSPECIFIED Qualifiers: Acute renal failure type: unspecified Chronic kidney disease stage: unspecified stage Qualified Code(s): N17.9 - Acute kidney failure, unspecified ; N18.9 - Chronic kidney disease, unspecified (10) Persistent atrial fibrillation Code(s): I48.1 - PERSISTENT ATRIAL FIBRILLATION (11) Coronary artery disease Code(s): I25.10 - ATHSCL HEART DISEASE OF [place] CORONARY ARTERY W/O ANG PCTRS Qualifiers: Coronary Disease-Associated Artery/Lesion type: [place] artery [place] vs. transplanted heart: [place] heart Associated angina: without angina Qualified Code(s): I25.10 - Atherosclerotic heart disease of [place] coronary artery without angina pectoris (12) HTN (hypertension) Code(s): I10 - ESSENTIAL (PRIMARY) HYPERTENSION Qualifiers: Hypertension type: essential hypertension Qualified Code(s): I10 - Essential (primary) hypertension (13) Pneumonia Code(s): J18.9 - PNEUMONIA, UNSPECIFIED ORGANISM Assessment/Plan ASSESSMENT AND PLAN: Acute Hypoxic Respiratory Failure s/p Tracheostomy Altered Mental Status Metabolic Encephalopathy Pneumonia Acalculous Cholecystitis Multiple Myeloma Acute on Chronic Renal Failure Metabolic Acidosis LV Diastolic Dysfunction Atrial Fibrillation CAD +Troponins likely Demand Ischemia PAD Hyperlipidemia HTN Anemia - monitor H/H - antibiotics per ID, can likely d/c - monitor urine output, creatinine - rate control - holding anticoagulation as he has bled and dropped his H/H this admission - hold sedation to assess mental status - DVT/GI prophylaxis - poor overall prognosis for meaningful recovery DR BAUER
[2018-03-17] MEDS: ACETAMINOPHEN 325 MG TABLET (FP) NR PRN (06:12)
[2018-03-17] MEDS ORDERED: PT OWN MED DRAWER 7, Y5N ONE (09:40)
[2018-03-17] MEDS: SODIUM BICARBONATE 650 MG TABLET PEG SCH (09:45)
[2018-03-17] MEDS: CHOLECALCIFEROL (VITAMIN D3) 1,000 UNIT TABLET (FP) NR SCH (09:45)
[2018-03-17] MEDS: THIAMINE HCL 100 MG TABLET (FP) NR SCH (09:45)
[2018-03-17] MEDS: LACTOBACILLUS ACIDOPHILUS 1 TABLET PEG SCH (09:46)
[2018-03-17] MEDS: RANITIDINE HCL 150 MG/10 ML UNIT-DOSE PEG SCH ×2 (09:46→22:12)
[2018-03-17] MEDS: RIFAXIMIN 550 MG TABLET (UD) NR SCH ×2 (09:46→22:16)
[2018-03-17] MEDS: METOPROLOL TARTRATE 25 MG TABLET (FP) PEG SCH ×2 (09:46→22:12)
[2018-03-17] MEDS: ALLOPURINOL 100 MG TABLET (FP) PEG SCH ×2 (09:46→22:16)
--- NOTE | 2018-03-17 11:42 | PN ---
Progress Note (short form) - Note Progress Note: Chief Complaint: Events noted, notes reviewed, on trach with overall no change in neurological status History of Present Illness: Seen and examined. 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 Echocardiography dated 10/18/2017 Mod cLVH, severe PURVI, moderate TR RVSP 50-60 mmHg, moderate-severe MR Echocardiography dated 01/23/2018 Normal LV size with hyperdynamic LVEF 75%, mild BSH, normal RV size and function, severe LAE, moderate-severe MR, mod TR - Current Medication List Current Medications Acetaminophen (Tylenol -) 650 mg NR Q6H PRN PRN Reason: PAIN LEVEL 1 - 3 Last Admin: 03/17/18 06:12 Dose: 650 mg Allopurinol (Zyloprim -) 100 mg PEG BID [facility] Last Admin: 03/17/18 09:46 Dose: 100 mg Cholecalciferol (Vitamin D3 -) 1,000 unit NR DAILY [facility] Last Admin: 03/17/18 09:45 Dose: 1,000 unit Diphenhydramine HCl (Benadryl Injection -) 25 mg IVPB ONCE PRN PRN Reason: DURING PLASMAPHERESIS Lactobacillus Acidophilus (Bacid -) 1 tab PEG DAILY [facility] Last Admin: 03/17/18 09:46 Dose: 1 tab Metoprolol Tartrate (Lopressor -) 25 mg PEG BID [facility] Last Admin: 03/17/18 09:46 Dose: 25 mg Ranitidine HCl (Zantac Oral Solution -) 150 mg PEG BID [facility] Last Admin: 03/17/18 09:46 Dose: 150 mg Rifaximin (Xifaxan -) 550 mg NR BID [facility] Last Admin: 03/17/18 09:46 Dose: 550 mg Sodium Bicarbonate (Sodium Bicarbonate -) 650 mg PEG DAILY [facility] Last Admin: 03/17/18 09:45 Dose: 650 mg Thiamine HCl (Vitamin B1 -) 100 mg NR DAILY [facility] Last Admin: 03/17/18 09:45 Dose: 100 mg - Objective Vital Signs: Last Vital Signs Temp Pulse Resp BP Pulse Ox 100.0 F H 96 H 24 H 126/80 98 03/17/18 10:00 03/17/18 10:00 03/17/18 10:00 03/17/18 10:00 03/17/18 09:00 Intake & Output 03/14/18 03/15/18 03/16/18 03/17/18 23:59 23:59 23:59 23:59 Intake Total 2650 450 600 Output Total 0 Balance 2650 450 600 Weight 230 lb 1.6 oz 232 lb 4.8 oz Neck: Supple Negative JVD No Bruit Cardiovascular: S1 S2 Irregularly Irregular Grade 2/6 Systolic Murmur Apical Chest: Scattered Rhonchi Bilaterally Gastrointestinal: Soft Benign Normal Bowel Sounds Ext: No Edema Labs: CBC, BMP 03/16/18 06:00 03/16/18 06:00 Assessment/Plan ASSESSMENT: 1. Chronic respiratory failure/post trach in a patient with history of acute hypoxic respiratory failure, aspiration pneumonia with resolved sepsis syndrome 2. Toxic metabolic encephelopathy, overall no change in status 3. Acute on CKD, suspected myeloma kidney 4. Paraproteinemia confirmed multiple myeloma 5. History of bilateral SFA occlusion post thrombectomy, most likely embolic disease related to persistent atrial fibrillation with [id number] score of 6 6. CAD with evidence of demand ischemic injury, non obstructive CAD on R&c coronary angiogrpahy angina pectoris 7. 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 Persistent atrial fibrillation [id number] score of 6 currently on no A/C therapy 9. HTN 10. Anemia/thrombocytopenia 11. Acalculous Cholecystitis 12. Ischemic hepatitis 13. Hypernatremia PLAN: 1. Ideally patient should be A/C unless it is absolutely contraindicated considering his [id number] score of 6 2. Monitor Hg and transfuse to maintain Hg equal or > 8.0 3. Continue Lopressor, hemodynamics permitting 4. Antibiotics as per the primary team 5. Ventilator management as per the pulmonary team 6. As outlined in prior notes overall poor prognosis Mabel Rolle MD
--- NOTE | 2018-03-17 11:43 | PN ---
Progress Note (short form) - Note Progress Note: Vented on AC Mode, 40% via Trach. Low grade temp. Poorly responsive. OBJECTIVE: Intake & Output 03/14/18 03/15/18 03/16/18 03/17/18 23:59 23:59 23:59 23:59 Intake Total 2650 450 600 Output Total 0 Balance 2650 450 600 Weight 230 lb 1.6 oz 232 lb 4.8 oz Last Vital Signs Temp Pulse Resp BP Pulse Ox 100.0 F H 96 H 24 H 126/80 98 03/17/18 10:00 03/17/18 10:00 03/17/18 10:00 03/17/18 10:00 03/17/18 09:00 Active Medications Acetaminophen (Tylenol -) 650 mg NR Q6H PRN PRN Reason: PAIN LEVEL 1 - 3 Last Admin: 03/17/18 06:12 Dose: 650 mg Allopurinol (Zyloprim -) 100 mg PEG BID [facility] Last Admin: 03/17/18 09:46 Dose: 100 mg Cholecalciferol (Vitamin D3 -) 1,000 unit NR DAILY [facility] Last Admin: 03/17/18 09:45 Dose: 1,000 unit Diphenhydramine HCl (Benadryl Injection -) 25 mg IVPB ONCE PRN PRN Reason: DURING PLASMAPHERESIS Lactobacillus Acidophilus (Bacid -) 1 tab PEG DAILY [facility] Last Admin: 03/17/18 09:46 Dose: 1 tab Metoprolol Tartrate (Lopressor -) 25 mg PEG BID [facility] Last Admin: 03/17/18 09:46 Dose: 25 mg Ranitidine HCl (Zantac Oral Solution -) 150 mg PEG BID [facility] Last Admin: 03/17/18 09:46 Dose: 150 mg Rifaximin (Xifaxan -) 550 mg NR BID [facility] Last Admin: 03/17/18 09:46 Dose: 550 mg Sodium Bicarbonate (Sodium Bicarbonate -) 650 mg PEG DAILY [facility] Last Admin: 03/17/18 09:45 Dose: 650 mg Thiamine HCl (Vitamin B1 -) 100 mg NR DAILY [facility] Last Admin: 03/17/18 09:45 Dose: 100 mg Gen: Trached, vented, poorly responsive Heart: RRR Lung: scattered rhonchi Abd: soft, nontender Ext: + edema Laboratory Results - last 24 hr 03/16/18 06:00 WBC 5.0 Corrected WBC (auto) 4.13 Neutrophils % (Manual) 66.3 Band Neutrophils % 1.1 Lymphocytes % (Manual) 16.8 Monocytes % (Manual) 6 Eosinophils % (Manual) 2.1 D Basophils % (Manual) 1.0 Myelocytes % (Man) 2 Promyelocytes % (Man) 0 Blast Cells % (Manual) 0 Nucleated RBC % 21 H* Metamyelocytes 1 D Hypochromia 0 Platelet Estimate Decreased Polychromasia 1+ Poikilocytosis 0 Anisocytosis 1+ Microcytosis 0 Macrocytosis 0 Rouleaux 1+ ASSESSMENT AND PLAN: Acute Hypoxic Respiratory Failure: S/P Trach Altered Mental Status Metabolic Encephalopathy Pneumonia Acalculous Cholecystitis Multiple Myeloma Acute on Chronic Renal Failure Metabolic Acidosis LV Diastolic Dysfunction Atrial Fibrillation CAD +Troponins likely Demand Ischemia PAD Hyperlipidemia HTN Anemia - Not a good candidate for wean due to poor mental status - rate control - DVT/GI prophylaxis - D/C planning Dr Walker
--- NOTE | 2018-03-17 12:00 | PN ---
Progress Note, Physician Chief Complaint: The patient examined in his bed. Poorly responsive. Vent supported. Maintains good urine output. Tube feeding in progress. History of Present Illness: This is a 77 year old gentleman with hx of CKD, Afib on A/C, CAD, CKD, Hypertension, Hyperlipidemia, PVD who presented with AMS/Confusion and found to have MELITA. The patient is intubated and supported by mechanical vent. In ICU. Later a Tracheostomy placed, and now on mechanical vent support. - Current Medication List Current Medications: Active Medications Acetaminophen (Tylenol -) 650 mg NR Q6H PRN PRN Reason: PAIN LEVEL 1 - 3 Last Admin: 03/17/18 06:12 Dose: 650 mg Allopurinol (Zyloprim -) 100 mg PEG BID [facility] Last Admin: 03/17/18 09:46 Dose: 100 mg Cholecalciferol (Vitamin D3 -) 1,000 unit NR DAILY [facility] Last Admin: 03/17/18 09:45 Dose: 1,000 unit Diphenhydramine HCl (Benadryl Injection -) 25 mg IVPB ONCE PRN PRN Reason: DURING PLASMAPHERESIS Lactobacillus Acidophilus (Bacid -) 1 tab PEG DAILY [facility] Last Admin: 03/17/18 09:46 Dose: 1 tab Metoprolol Tartrate (Lopressor -) 25 mg PEG BID [facility] Last Admin: 03/17/18 09:46 Dose: 25 mg Ranitidine HCl (Zantac Oral Solution -) 150 mg PEG BID [facility] Last Admin: 03/17/18 09:46 Dose: 150 mg Rifaximin (Xifaxan -) 550 mg NR BID [facility] Last Admin: 03/17/18 09:46 Dose: 550 mg Sodium Bicarbonate (Sodium Bicarbonate -) 650 mg PEG DAILY [facility] Last Admin: 03/17/18 09:45 Dose: 650 mg Thiamine HCl (Vitamin B1 -) 100 mg NR DAILY [facility] Last Admin: 03/17/18 09:45 Dose: 100 mg - Objective Vital Signs: Vital Signs Temperature 100.0 F H 03/17/18 10:00 Pulse Rate 96 H 03/17/18 10:00 Respiratory Rate 24 H 03/17/18 10:00 Blood Pressure 126/80 03/17/18 10:00 O2 Sat by Pulse Oximetry (%) 98 03/17/18 09:00 Neck: Yes: Supple, Trachea Midline Cardiovascular: Yes: Tachycardia, S1, S2 Respiratory: Yes: Diminished, Mechanically Ventilated, Other (tracheostomy) Gastrointestinal: Yes: Soft Genitourinary: No: Bladder Distention Edema: No Labs: CBC, BMP 03/16/18 06:00 03/16/18 06:00 INR, PTT INR 1.69 (0.83-1.09) H 03/15/18 05:30 Fibrinogen 338.0 mg/dL (238-498) D 03/12/18 20:00 Problem List - Problems (1) Multiple myeloma Code(s): C90.00 - MULTIPLE MYELOMA NOT HAVING ACHIEVED REMISSION Qualifiers: Multiple myeloma remission status: not in remission Qualified Code(s): C90.00 - Multiple myeloma not having achieved remission (2) MELITA (acute kidney injury) Code(s): N17.9 - ACUTE KIDNEY FAILURE, UNSPECIFIED (3) Altered mental status Code(s): R41.82 - ALTERED MENTAL STATUS, UNSPECIFIED (4) Anemia Code(s): D64.9 - ANEMIA, UNSPECIFIED (5) Atrial fibrillation with RVR Code(s): I48.91 - UNSPECIFIED ATRIAL FIBRILLATION (6) Cellulitis Code(s): L03.90 - CELLULITIS, UNSPECIFIED Qualifiers: Site of cellulitis: extremity Site of cellulitis of extremity: lower extremity Laterality: right Qualified Code(s): L03.115 - Cellulitis of right lower limb (7) Hyperlipidemia Code(s): E78.5 - HYPERLIPIDEMIA, UNSPECIFIED Qualifiers: Hyperlipidemia type: pure hypercholesterolemia Qualified Code(s): E78.00 - Pure hypercholesterolemia, unspecified; E78.0 - Pure hypercholesterolemia (8) Sepsis Code(s): A41.9 - SEPSIS, UNSPECIFIED ORGANISM (9) Hypercalcemia Code(s): E83.52 - HYPERCALCEMIA Assessment/Plan 77 year old gentleman with hx of CKD, Afib on A/C, CAD, CKD, Hypertension, Hyperlipidemia, PVD who presented with AMS/Confusion and found to have MELITA. MELITA ATN vs. 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 tubular injury, US showed no stones or obstruction. AMS Newly diagnosed multiple myloma Anemia Hypercalcemia of Malignancy Hyperdense lesion on US of the kidney On Sodium Bicarb supplements. Tendency for Hypernatremia. Will D/c the Bicarb. Will increase water through the tube feeding. Juliann New MD
--- NOTE | 2018-03-17 13:14 | PN ---
Progress Note, Physician - Current Medication List Current Medications: Active Medications Acetaminophen (Tylenol -) 650 mg NR Q6H PRN PRN Reason: PAIN LEVEL 1 - 3 Last Admin: 03/17/18 06:12 Dose: 650 mg Allopurinol (Zyloprim -) 100 mg PEG BID [facility] Last Admin: 03/17/18 09:46 Dose: 100 mg Cholecalciferol (Vitamin D3 -) 1,000 unit NR DAILY [facility] Last Admin: 03/17/18 09:45 Dose: 1,000 unit Diphenhydramine HCl (Benadryl Injection -) 25 mg IVPB ONCE PRN PRN Reason: DURING PLASMAPHERESIS Lactobacillus Acidophilus (Bacid -) 1 tab PEG DAILY [facility] Last Admin: 03/17/18 09:46 Dose: 1 tab Metoprolol Tartrate (Lopressor -) 25 mg PEG BID [facility] Last Admin: 03/17/18 09:46 Dose: 25 mg Ranitidine HCl (Zantac Oral Solution -) 150 mg PEG BID [facility] Last Admin: 03/17/18 09:46 Dose: 150 mg Rifaximin (Xifaxan -) 550 mg NR BID [facility] Last Admin: 03/17/18 09:46 Dose: 550 mg Sodium Bicarbonate (Sodium Bicarbonate -) 650 mg PEG DAILY [facility] Last Admin: 03/17/18 09:45 Dose: 650 mg Thiamine HCl (Vitamin B1 -) 100 mg NR DAILY [facility] Last Admin: 03/17/18 09:45 Dose: 100 mg - Objective Vital Signs: Vital Signs Temperature 100.0 F H 03/17/18 10:00 Pulse Rate 96 H 03/17/18 10:00 Respiratory Rate 25 H 03/17/18 12:39 Blood Pressure 126/80 03/17/18 10:00 O2 Sat by Pulse Oximetry (%) 98 03/17/18 09:00 Cardiovascular: Yes: S1, S2 Respiratory: Yes: Mechanically Ventilated Gastrointestinal: Yes: Normal Bowel Sounds, Soft Labs: CBC, BMP 03/16/18 06:00 03/16/18 06:00 INR, PTT INR 1.69 (0.83-1.09) H 03/15/18 05:30 Fibrinogen 338.0 mg/dL (238-498) D 03/12/18 20:00 Problem List - Problems (1) Toxic metabolic encephalopathy Code(s): G92 - TOXIC ENCEPHALOPATHY (2) Cellulitis Code(s): L03.90 - CELLULITIS, UNSPECIFIED Qualifiers: Site of cellulitis: extremity Site of cellulitis of extremity: lower extremity Laterality: right Qualified Code(s): L03.115 - Cellulitis of right lower limb (3) Sepsis Code(s): A41.9 - SEPSIS, UNSPECIFIED ORGANISM (4) Artery occlusion Code(s): I70.90 - UNSPECIFIED ATHEROSCLEROSIS (5) Hypercalcemia Code(s): E83.52 - HYPERCALCEMIA (6) Paroxysmal atrial fibrillation Code(s): I48.0 - PAROXYSMAL ATRIAL FIBRILLATION (7) MELITA (acute kidney injury) Code(s): N17.9 - ACUTE KIDNEY FAILURE, UNSPECIFIED Assessment/Plan (1) MELITA (acute kidney injury) Assessment/Plan: potassium now normal range- hyperkalemia improved ultrasound hyperdense lesion noted in left renal cortex Code(s): N17.9 - ACUTE KIDNEY FAILURE, UNSPECIFIED (2) Atrial fibrillation with RVR Assessment/Plan: heparin drip --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
[2018-03-17 19:27] LABS: BASO % 0.5 % (0-2.0); EOS % 0.6 % (0-4.5); HEMATOCRIT 23.5 % (35.4-49); HEMOGLOBIN 8.1 GM/dL (11.7-16.9); LYMPH % 20.7 % (8-40); MCH 31.3 pg (25.7-33.7); MCHC 34.6 g/dl (32.0-35.9); MEAN CELL VOLUME 90.6 fl (80-96); MEAN PLT VOLUME 10.4 fl (7.5-11.1); MONO % 8.3 % (3.8-10.2); NEUT % 69.9 % (42.8-82.8); PLATELET COUNT 168 K/MM3 (134-434); RBC 2.59 M/mm3 (4.00-5.60)
[2018-03-17 19:48] LABS: URINE APPEARANCE CLOUDY; URINE BILIRUBIN NEGATIVE (<2.0 mg/dL); URINE COLOR AMBER; URINE GLUCOSE (UA) NEGATIVE (NEGATIVE); URINE KETONE NEGATIVE (NEGATIVE); URINE LEUK ESTERASE 3+ (NEGATIVE); URINE NITRITE POSITIVE (NEGATIVE); URINE PROTEIN 2+ (NEGATIVE); URINE UROBILINOGEN NEGATIVE mg/dL (0.2-1.0)
[2018-03-17 19:59] LABS: EPI CELLS RARE /HPF (FEW); URINE BACTERIA MANY /hpf (NONE SEEN); URINE MUCUS RARE
[2018-03-17 20:20] LABS: PLATELET ESTIMATE ADEQUATE
[2018-03-18] MEDS: ACETAMINOPHEN 325 MG TABLET (FP) NR PRN ×2 (02:23→17:22)
[2018-03-18 08:09] LABS: BASO % 0.5 % (0-2.0); EOS % 0.6 % (0-4.5); HEMATOCRIT 24.4 % (35.4-49); HEMOGLOBIN 7.7 GM/dL (11.7-16.9); LYMPH % 22.4 % (8-40); MCH 29.6 pg (25.7-33.7); MCHC 31.8 g/dl (32.0-35.9); MEAN CELL VOLUME 93.1 fl (80-96); MEAN PLT VOLUME 10.6 fl (7.5-11.1); MONO % 7.9 % (3.8-10.2); NEUT % 68.6 % (42.8-82.8); PLATELET COUNT 161 K/MM3 (134-434); RBC 2.62 M/mm3 (4.00-5.60); RDW 16.5 % (11.9-15.9); WHITE BLOOD COUNT 5.4 K/mm3 (4.0-10.0)
[2018-03-18 08:44] LABS: ALBUMIN 1.3 g/dl (3.4-5.0); ALK PHOS 215 U/L (45-117); ANION GAP 6 MMOL/L (8-16); BILIRUBIN,TOTAL 1.2 mg/dL (0.2-1); BLOOD UREA NITROGEN 63 mg/dL (7-18); CHLORIDE 124 mmol/L (98-107); CO2 22 mmol/L (21-32); CREATININE 1.6 mg/dL (0.55-1.3); GLUCOSE,RANDOM 120 mg/dL (74-106); POTASSIUM 5.3 mmol/L (3.5-5.1); SGOT/AST 122 U/L (15-37); SGPT/ALT 50 U/L (13-61); SODIUM 152 mmol/L (136-145); TOT PROT 9.3 g/dl (6.4-8.2)
[2018-03-18 08:56] LABS: CALCIUM 6.7 mg/dL (8.5-10.1)
[2018-03-18] MEDS: SODIUM BICARBONATE 650 MG TABLET PEG SCH (11:01)
--- NOTE | 2018-03-18 11:01 | PN ---
Progress Note (short form) - Note Progress Note: Chief Complaint: Events noted, notes reviewed, remains on trach/ventilator with overall no change in neurological status History of Present Illness: Seen and examined. Events noted, notes reviewed, remains on trach/ventilator with overall no change in neurological status [facility] performed 04/20/2016 revealed non-obstructive CAD, severe LV apical hypertrophic cardiomyopathy, mildly elevated right sided pressures/study is consistent with apical hypertrophy (spade-like) variant of hypertrophic cardiomyopathy Echocardiography dated 10/18/2017 Mod cLVH, severe PURVI, moderate TR RVSP 50-60 mmHg, moderate-severe MR Echocardiography dated 01/23/2018 Normal LV size with hyperdynamic LVEF 75%, mild BSH, normal RV size and function, severe LAE, moderate-severe MR, mod TR - Current Medication List Current Medications Acetaminophen (Tylenol -) 650 mg NR Q6H PRN PRN Reason: PAIN LEVEL 1 - 3 Last Admin: 03/18/18 02:23 Dose: 650 mg Allopurinol (Zyloprim -) 100 mg PEG BID [facility] Last Admin: 03/17/18 22:16 Dose: 100 mg Cholecalciferol (Vitamin D3 -) 1,000 unit NR DAILY [facility] Last Admin: 03/17/18 09:45 Dose: 1,000 unit Diphenhydramine HCl (Benadryl Injection -) 25 mg IVPB ONCE PRN PRN Reason: DURING PLASMAPHERESIS Lactobacillus Acidophilus (Bacid -) 1 tab PEG DAILY [facility] Last Admin: 03/17/18 09:46 Dose: 1 tab Metoprolol Tartrate (Lopressor -) 25 mg PEG BID [facility] Last Admin: 03/17/18 22:12 Dose: 25 mg Ranitidine HCl (Zantac Oral Solution -) 150 mg PEG BID [facility] Last Admin: 03/17/18 22:12 Dose: 150 mg Rifaximin (Xifaxan -) 550 mg NR BID [facility] Last Admin: 03/17/18 22:16 Dose: 550 mg Thiamine HCl (Vitamin B1 -) 100 mg NR DAILY [facility] Last Admin: 03/17/18 09:45 Dose: 100 mg - Objective Vital Signs: Last Vital Signs Temp Pulse Resp BP Pulse Ox 98.5 F 90 25 H 121/75 98 03/18/18 06:01 03/18/18 06:01 03/18/18 09:15 03/18/18 06:01 03/17/18 20:47 Intake & Output 03/15/18 03/16/18 03/17/18 03/18/18 23:59 23:59 23:59 23:59 Intake Total 450 600 600 540 Output Total 0 1100 Balance 450 600 -500 540 Weight 232 lb 4.8 oz Neck: Supple Negative JVD No Bruit Cardiovascular: S1 S2 Irregularly Irregular Grade 2/6 Systolic Murmur Apical Chest: Scattered Rhonchi Bilaterally Gastrointestinal: Soft Benign Normal Bowel Sounds Ext: No Edema Labs: CBC, BMP 03/18/18 07:30 03/18/18 08:50 Assessment/Plan ASSESSMENT: 1. Chronic respiratory failure/post trach in a patient with history of acute hypoxic respiratory failure, aspiration pneumonia with resolved sepsis syndrome 2. Toxic metabolic encephelopathy, overall no change in status 3. Acute on CKD, suspected myeloma kidney 4. Paraproteinemia confirmed multiple myeloma 5. History of bilateral SFA occlusion post thrombectomy, most likely embolic disease related to persistent atrial fibrillation with [id number] score of 6 6. CAD with evidence of demand ischemic injury, non obstructive CAD on R[facility] coronary angiogrpahy angina pectoris 7. 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 Persistent atrial fibrillation [id number] score of 6 currently on no A/C therapy 9. HTN 10. Anemia/thrombocytopenia, dropping H/H 11. Acalculous Cholecystitis 12. Ischemic hepatitis 13. Hypernatremia PLAN: 1. Ideally patient should be A/C unless it is absolutely contraindicated considering his [id number] score of 6 2. Transfuse to maintain Hg equal or > 8.0, as per primary team 3. Continue Lopressor, hemodynamics permitting 4. Correction of Hypernatremia, recommend D5 1/3 NS 5. Ventilator management as per the pulmonary team 6. As outlined in prior notes overall poor prognosis Mabel Rolle MD
[2018-03-18] MEDS: LACTOBACILLUS ACIDOPHILUS 1 TABLET PEG SCH (11:06)
[2018-03-18] MEDS: RANITIDINE HCL 150 MG/10 ML UNIT-DOSE PEG SCH ×2 (11:06→21:43)
[2018-03-18] MEDS: ALLOPURINOL 100 MG TABLET (FP) PEG SCH ×2 (11:06→21:43)
[2018-03-18] MEDS: THIAMINE HCL 100 MG TABLET (FP) NR SCH (11:07)
[2018-03-18] MEDS: METOPROLOL TARTRATE 25 MG TABLET (FP) PEG SCH ×2 (11:07→21:43)
[2018-03-18] MEDS: RIFAXIMIN 550 MG TABLET (UD) NR SCH ×2 (11:07→21:43)
[2018-03-18] MEDS: CHOLECALCIFEROL (VITAMIN D3) 1,000 UNIT TABLET (FP) NR SCH (11:07)
--- NOTE | 2018-03-18 11:07 | PN ---
Progress Note, Physician Chief Complaint: The patient examined in his bed. Poorly responsive. Vent supported. Maintains good urine output. Tube feeding in progress. History of Present Illness: This is a 77 year old gentleman with hx of CKD, Afib on A/C, CAD, CKD, Hypertension, Hyperlipidemia, PVD who presented with AMS/Confusion and found to have MELITA. The patient is intubated and supported by mechanical vent. In ICU. Later a Tracheostomy placed, and now on mechanical vent support. G tube feeding in progress - Current Medication List Current Medications: Active Medications Acetaminophen (Tylenol -) 650 mg NR Q6H PRN PRN Reason: PAIN LEVEL 1 - 3 Last Admin: 03/18/18 02:23 Dose: 650 mg Allopurinol (Zyloprim -) 100 mg PEG BID [facility] Last Admin: 03/17/18 22:16 Dose: 100 mg Cholecalciferol (Vitamin D3 -) 1,000 unit NR DAILY [facility] Last Admin: 03/17/18 09:45 Dose: 1,000 unit Diphenhydramine HCl (Benadryl Injection -) 25 mg IVPB ONCE PRN PRN Reason: DURING PLASMAPHERESIS Dextrose/Sodium Chloride (D5-1/3ns -) 500 mls @ 42 mls/hr IV ASDIR [facility] Lactobacillus Acidophilus (Bacid -) 1 tab PEG DAILY [facility] Last Admin: 03/17/18 09:46 Dose: 1 tab Metoprolol Tartrate (Lopressor -) 25 mg PEG BID [facility] Last Admin: 03/17/18 22:12 Dose: 25 mg Ranitidine HCl (Zantac Oral Solution -) 150 mg PEG BID [facility] Last Admin: 03/17/18 22:12 Dose: 150 mg Rifaximin (Xifaxan -) 550 mg NR BID [facility] Last Admin: 03/17/18 22:16 Dose: 550 mg Thiamine HCl (Vitamin B1 -) 100 mg NR DAILY [facility] Last Admin: 03/17/18 09:45 Dose: 100 mg - Objective Vital Signs: Vital Signs Temperature 98.5 F 03/18/18 06:01 Pulse Rate 90 03/18/18 06:01 Respiratory Rate 25 H 03/18/18 09:15 Blood Pressure 121/75 03/18/18 06:01 O2 Sat by Pulse Oximetry (%) 98 03/17/18 20:47 Constitutional: Yes: No Distress Cardiovascular: Yes: Tachycardia, Pulse Irregular, S1, S2 Respiratory: Yes: CTA Bilaterally, Mechanically Ventilated Gastrointestinal: Yes: Normal Bowel Sounds, Soft Edema: Yes Edema: LUE: Trace, RUE: Trace Labs: CBC, BMP 03/18/18 07:30 03/18/18 08:50 INR, PTT INR 1.69 (0.83-1.09) H 03/15/18 05:30 Fibrinogen 338.0 mg/dL (238-498) D 03/12/18 20:00 Problem List - Problems (1) Multiple myeloma Code(s): C90.00 - MULTIPLE MYELOMA NOT HAVING ACHIEVED REMISSION Qualifiers: Qualified Code(s): C90.00 - Multiple myeloma not having achieved remission (2) MELITA (acute kidney injury) Code(s): N17.9 - ACUTE KIDNEY FAILURE, UNSPECIFIED (3) Altered mental status Code(s): R41.82 - ALTERED MENTAL STATUS, UNSPECIFIED (4) Anemia Code(s): D64.9 - ANEMIA, UNSPECIFIED (5) Atrial fibrillation with RVR Code(s): I48.91 - UNSPECIFIED ATRIAL FIBRILLATION (6) Cellulitis Code(s): L03.90 - CELLULITIS, UNSPECIFIED Qualifiers: Qualified Code(s): L03.115 - Cellulitis of right lower limb (7) Hyperlipidemia Code(s): E78.5 - HYPERLIPIDEMIA, UNSPECIFIED Qualifiers: Qualified Code(s): E78.00 - Pure hypercholesterolemia, unspecified; E78.0 - Pure hypercholesterolemia (8) Sepsis Code(s): A41.9 - SEPSIS, UNSPECIFIED ORGANISM (9) Hypercalcemia Code(s): E83.52 - HYPERCALCEMIA Assessment/Plan 77 year old gentleman with hx of CKD, Afib on A/C, CAD, CKD, Hypertension, Hyperlipidemia, PVD who presented with AMS/Confusion and found to have MELITA. MELITA ...Azotemia stable, except for some Prerenal worsening. Hypernatremia, also related to free water deficit. Will give some cautious IV fluid supplements. Newly diagnosed multiple myloma Anemia Hypocalcemia...but the corrected Calcium is within acceptable range. Will not order Calcium supplements. Hyperdense lesion on US of the kidney SodaBirb discontinued. IV fluid ordered. Juliann New MD
--- NOTE | 2018-03-18 12:03 | PN ---
Progress Note (short form) - Note Progress Note: Vented on AC Mode, 40% via Trach. Poorly responsive. No change in overall condition. OBJECTIVE: Intake & Output 03/15/18 03/16/1818 03/18/18 23:59 23:59 23:59 23:59 Intake Total 450 600 600 540 Output Total 0 1100 Balance 450 600 -500 540 Weight 232 lb 4.8 oz Last Vital Signs Temp Pulse Resp BP Pulse Ox 98.6 F 110 H 26 H 123/75 98 03/18/18 11:00 03/18/18 11:00 03/18/18 11:00 03/18/18 11:00 03/17/18 20:47 Active Medications Acetaminophen (Tylenol -) 650 mg NR Q6H PRN PRN Reason: PAIN LEVEL 1 - 3 Last Admin: 03/18/18 02:23 Dose: 650 mg Allopurinol (Zyloprim -) 100 mg PEG BID [facility] Last Admin: 03/18/18 11:06 Dose: 100 mg Cholecalciferol (Vitamin D3 -) 1,000 unit NR DAILY [facility] Last Admin: 03/18/18 11:07 Dose: 1,000 unit Diphenhydramine HCl (Benadryl Injection -) 25 mg IVPB ONCE PRN PRN Reason: DURING PLASMAPHERESIS Dextrose/Sodium Chloride (D5-1/3ns -) 500 mls @ 42 mls/hr IV ASDIR [facility] Lactobacillus Acidophilus (Bacid -) 1 tab PEG DAILY [facility] Last Admin: 03/18/18 11:06 Dose: 1 tab Metoprolol Tartrate (Lopressor -) 25 mg PEG BID [facility] Last Admin: 03/18/18 11:07 Dose: 25 mg Ranitidine HCl (Zantac Oral Solution -) 150 mg PEG BID [facility] Last Admin: 03/18/18 11:06 Dose: 150 mg Rifaximin (Xifaxan -) 550 mg NR BID [facility] Last Admin: 03/18/18 11:07 Dose: 550 mg Thiamine HCl (Vitamin B1 -) 100 mg NR DAILY [facility] Last Admin: 03/18/18 11:07 Dose: 100 mg Gen: Trached, vented, poorly responsive Heart: RRR Lung: scattered rhonchi Abd: soft, nontender Ext: + edema Laboratory Results - last 24 hr 03/17/18 03/17/18 03/18/18 17:00 18:49 07:30 WBC 6.0 5.4 RBC 2.59 L 2.62 L Hgb 8.1 L 7.7 L Hct 23.5 L 24.4 L MCV 90.6 93.1 MCH 31.3 29.6 MCHC 34.6 31.8 L RDW 16.0 H 16.5 H Plt Count 168 161 MPV 10.4 10.6 Absolute Neuts (auto) 4.2 3.7 Neutrophils % 69.9 68.6 Neutrophils % (Manual) 62.0 Band Neutrophils % 9.0 Lymphocytes % 20.7 22.4 Lymphocytes % (Manual) 23.0 D Monocytes % 8.3 7.9 Monocytes % (Manual) 4 Eosinophils % 0.6 0.6 Eosinophils % (Manual) 0.0 D Basophils % 0.5 0.5 Basophils % (Manual) 0.0 Nucleated RBC % 6 H 3 H Metamyelocytes 2 D Platelet Estimate Adequate Sodium Potassium Chloride Carbon Dioxide Anion Gap BUN Creatinine Creat Clearance w eGFR Random Glucose Calcium Total Bilirubin AST ALT Alkaline Phosphatase Total Protein Albumin Urine Color [place] Urine Appearance Cloudy Urine pH 5.0 Ur Specific [place] 1.018 Urine Protein 2+ H Urine Glucose (UA) Negative Urine Ketones Negative Urine Blood 3+ H Urine Nitrite Positive Urine Bilirubin Negative Urine Urobilinogen Negative Ur Leukocyte Esterase 3+ H Urine WBC (Auto) 420 Urine RBC (Auto) 63 Ur Epithelial Cells Rare Urine Bacteria Many Urine Mucus Rare 03/18/18 08:50 WBC RBC Hgb Hct MCV MCH MCHC RDW Plt Count MPV Absolute Neuts (auto) Neutrophils % Neutrophils % (Manual) Band Neutrophils % Lymphocytes % Lymphocytes % (Manual) Monocytes % Monocytes % (Manual) Eosinophils % Eosinophils % (Manual) Basophils % Basophils % (Manual) Nucleated RBC % Metamyelocytes Platelet Estimate Sodium 152 H Potassium 5.3 H Chloride 124 H Carbon Dioxide 22 Anion Gap 6 L BUN 63 H Creatinine 1.6 H Creat Clearance w eGFR 41.90 Random Glucose 120 H Calcium 6.7 L* Total Bilirubin 1.2 H AST 122 H ALT 50 Alkaline Phosphatase 215 H Total Protein 9.3 H Albumin 1.3 L Urine Color Urine Appearance Urine pH Ur Specific [place] Urine Protein Urine Glucose (UA) Urine Ketones Urine Blood Urine Nitrite Urine Bilirubin Urine Urobilinogen Ur Leukocyte Esterase Urine WBC (Auto) Urine RBC (Auto) Ur Epithelial Cells Urine Bacteria Urine Mucus ASSESSMENT AND PLAN: Acute Hypoxic Respiratory Failure: S/P Trach Altered Mental Status Metabolic Encephalopathy Pneumonia Acalculous Cholecystitis Multiple Myeloma Acute on Chronic Renal Failure Metabolic Acidosis LV Diastolic Dysfunction Atrial Fibrillation CAD +Troponins likely Demand Ischemia PAD Hyperlipidemia HTN Anemia - Not a good candidate for wean due to poor mental status - rate control - DVT/GI prophylaxis - D/C planning Dr Walker
[2018-03-18 12:42] LABS: ANISOCYTOSIS 2+; MACROCYTOSIS 1+; PLATELET ESTIMATE NORMAL; ROULEAU 1+; TEAR DROP CELLS 1+
--- NOTE | 2018-03-18 14:46 | PN ---
Progress Note, Physician - Current Medication List Current Medications: Active Medications Acetaminophen (Tylenol -) 650 mg NR Q6H PRN PRN Reason: PAIN LEVEL 1 - 3 Last Admin: 03/18/18 02:23 Dose: 650 mg Allopurinol (Zyloprim -) 100 mg PEG BID [facility] Last Admin: 03/18/18 11:06 Dose: 100 mg Cholecalciferol (Vitamin D3 -) 1,000 unit NR DAILY [facility] Last Admin: 03/18/18 11:07 Dose: 1,000 unit Diphenhydramine HCl (Benadryl Injection -) 25 mg IVPB ONCE PRN PRN Reason: DURING PLASMAPHERESIS Dextrose/Sodium Chloride (D5-1/3ns -) 500 mls @ 42 mls/hr IV ASDIR [facility] Lactobacillus Acidophilus (Bacid -) 1 tab PEG DAILY [facility] Last Admin: 03/18/18 11:06 Dose: 1 tab Metoprolol Tartrate (Lopressor -) 25 mg PEG BID [facility] Last Admin: 03/18/18 11:07 Dose: 25 mg Ranitidine HCl (Zantac Oral Solution -) 150 mg PEG BID [facility] Last Admin: 03/18/18 11:06 Dose: 150 mg Rifaximin (Xifaxan -) 550 mg NR BID [facility] Last Admin: 03/18/18 11:07 Dose: 550 mg Thiamine HCl (Vitamin B1 -) 100 mg NR DAILY [facility] Last Admin: 03/18/18 11:07 Dose: 100 mg - Objective Vital Signs: Vital Signs Temperature 98.6 F 03/18/18 11:00 Pulse Rate 110 H 03/18/18 11:00 Respiratory Rate 26 H 03/18/18 12:11 Blood Pressure 123/75 03/18/18 11:00 O2 Sat by Pulse Oximetry (%) 98 03/17/18 20:47 Cardiovascular: Yes: S1, S2 Respiratory: Yes: Mechanically Ventilated Gastrointestinal: Yes: Normal Bowel Sounds, Soft Labs: CBC, BMP 03/18/18 07:30 03/18/18 08:50 INR, PTT INR 1.69 (0.83-1.09) H 03/15/18 05:30 Fibrinogen 338.0 mg/dL (238-498) D 03/12/18 20:00 Problem List - Problems (1) Toxic metabolic encephalopathy Code(s): G92 - TOXIC ENCEPHALOPATHY (2) Cellulitis Code(s): L03.90 - CELLULITIS, UNSPECIFIED Qualifiers: Site of cellulitis: extremity Site of cellulitis of extremity: lower extremity Laterality: right Qualified Code(s): L03.115 - Cellulitis of right lower limb (3) Sepsis Code(s): A41.9 - SEPSIS, UNSPECIFIED ORGANISM (4) Artery occlusion Code(s): I70.90 - UNSPECIFIED ATHEROSCLEROSIS (5) Hypercalcemia Code(s): E83.52 - HYPERCALCEMIA (6) Paroxysmal atrial fibrillation Code(s): I48.0 - PAROXYSMAL ATRIAL FIBRILLATION (7) MELITA (acute kidney injury) Code(s): N17.9 - ACUTE KIDNEY FAILURE, UNSPECIFIED Assessment/Plan (1) MELITA (acute kidney injury) Assessment/Plan: potassium now normal range- hyperkalemia improved ultrasound hyperdense lesion noted in left renal cortex ivf per renal Code(s): N17.9 - ACUTE KIDNEY FAILURE, UNSPECIFIED (2) Atrial fibrillation with RVR Assessment/Plan: heparin drip --dc due to anemia radiation monitor rate control with metoprolol (3) Respiratory failure Assessment/Plan: S/p Trach Vwnt setting per pulm Code(s): J96.90 - RESPIRATORY FAILURE, UNSP, UNSP W HYPOXIA OR HYPERCAPNIA (4) Toxic metabolic encephalopathy Assessment/Plan: Microbiology S/p Rx for PNA Code(s): G92 - TOXIC ENCEPHALOPATHY (5) Anemia Assessment/Plan: -PRBC -Hold Heparin -Transfuse (6) Nutrition Assessment/Plan: peg in place feeding started (7) Fever Assessment/Plan: Cultures Microbiology 03/17/18 18:40 Blood Culture - Preliminary Blood - Peripheral Venous Pending Organism 03/12/18 10:27 Blood Culture - Final Blood - Peripheral Venous NO GROWTH AFTER 5 DAYS INCUBATION 03/12/18 10:33 Blood Culture - Final Blood - Peripheral Venous NO GROWTH AFTER 5 DAYS INCUBATION ID follow up [id number]
[2018-03-18] MEDS ORDERED: ACETAMINOPHEN 325 MG TABLET (FP) NR ONE (20:25)
[2018-03-18] MEDS: DEXTROSE 5%-1/3 NS - 500 ML IV SCH (20:27)
[2018-03-19] MEDS: ACETAMINOPHEN 650 MG/20.3 ML ORAL SOLUTION (CUPS) PEG PRN ×4 (00:28→22:16)
[2018-03-19 07:41] LABS: BASO % 0.7 % (0-2.0); EOS % 1.1 % (0-4.5); HEMATOCRIT 21.7 % (35.4-49); LYMPH % 24.7 % (8-40); MCH 29.4 pg (25.7-33.7); MCHC 31.6 g/dl (32.0-35.9); MEAN CELL VOLUME 93.2 fl (80-96); MEAN PLT VOLUME 10.1 fl (7.5-11.1); MONO % 6.6 % (3.8-10.2); NEUT % 66.9 % (42.8-82.8); PLATELET COUNT 132 K/MM3 (134-434); RBC 2.32 M/mm3 (4.00-5.60); RDW 16.3 % (11.9-15.9); WHITE BLOOD COUNT 4.9 K/mm3 (4.0-10.0)
[2018-03-19] MEDS: DEXTROSE 5%-1/3 NS - 500 ML IV SCH ×4 (08:10→23:36)
[2018-03-19 08:11] LABS: HEMOGLOBIN 6.8 GM/dL (11.7-16.9)
[2018-03-19 08:41] LABS: ALBUMIN 1.1 g/dl (3.4-5.0); ALK PHOS 223 U/L (45-117); ANION GAP 5 MMOL/L (8-16); BLOOD UREA NITROGEN 63 mg/dL (7-18); CHLORIDE 125 mmol/L (98-107); CO2 22 mmol/L (21-32); CREATININE 1.6 mg/dL (0.55-1.3); GLUCOSE,RANDOM 143 mg/dL (74-106); POTASSIUM 4.7 mmol/L (3.5-5.1); SGOT/AST 142 U/L (15-37); SGPT/ALT 54 U/L (13-61); SODIUM 152 mmol/L (136-145); TOT PROT 8.4 g/dl (6.4-8.2)
[2018-03-19 08:58] LABS: CALCIUM 6.3 mg/dL (8.5-10.1)
--- NOTE | 2018-03-19 09:28 | PN ---
Progress Note, Physician History of Present Illness: Now with persistant fever + BC grp D strep v. enterococcus Minimally resposive - Current Medication List Current Medications: Active Medications Acetaminophen (Tylenol Oral Solution -) 650 mg PEG Q6H PRN PRN Reason: PAIN LEVEL 1 - 3 Last Admin: 03/19/18 06:26 Dose: 650 mg Allopurinol (Zyloprim -) 100 mg PEG BID [facility] Last Admin: 03/18/18 21:43 Dose: 100 mg Cholecalciferol (Vitamin D3 -) 1,000 unit NR DAILY [facility] Last Admin: 03/18/18 11:07 Dose: 1,000 unit Diphenhydramine HCl (Benadryl Injection -) 25 mg IVPB ONCE PRN PRN Reason: DURING PLASMAPHERESIS Dextrose/Sodium Chloride (D5-1/3ns -) 500 mls @ 42 mls/hr IV ASDIR [facility] Last Admin: 03/19/18 08:15 Dose: 42 mls/hr Vancomycin HCl 1,000 mg/ (Dextrose) 250 mls @ 200 mls/hr IVPB Q24H [facility]; Protocol Lactobacillus Acidophilus (Bacid -) 1 tab PEG DAILY [facility] Last Admin: 03/18/18 11:06 Dose: 1 tab Metoprolol Tartrate (Lopressor -) 25 mg PEG BID [facility] Last Admin: 03/18/18 21:43 Dose: 25 mg Ranitidine HCl (Zantac Oral Solution -) 150 mg PEG BID [facility] Last Admin: 03/18/18 21:43 Dose: 150 mg Rifaximin (Xifaxan -) 550 mg NR BID [facility] Last Admin: 03/18/18 21:43 Dose: 550 mg Thiamine HCl (Vitamin B1 -) 100 mg NR DAILY [facility] Last Admin: 03/18/18 11:07 Dose: 100 mg - Objective Vital Signs: Vital Signs Temperature 102.4 F H 03/19/18 09:13 Pulse Rate 103 H 03/19/18 08:00 Respiratory Rate 19 03/19/18 08:00 Blood Pressure 108/74 03/19/18 08:00 O2 Sat by Pulse Oximetry (%) 98 03/17/18 20:47 Constitutional: Yes: No Distress Cardiovascular: Yes: Regular Rate and Rhythm, S1, S2 Respiratory: Yes: Mechanically Ventilated Gastrointestinal: Yes: Normal Bowel Sounds, Soft. No: Tenderness Edema: Yes Labs: CBC, BMP 03/19/18 06:25 03/19/18 06:25 INR, PTT INR 1.69 (0.83-1.09) H 03/15/18 05:30 Fibrinogen 338.0 mg/dL (238-498) D 03/12/18 20:00 Assessment/Plan Respiratory failure S/P tracheostomy Fever +BC grp D strep v. Enterococcus Toxic metabolic encephalopathy Renal failure Myeloma Hyperviscosity syndrome Diarrhea Await BC result Will re-culture Empiric vancomycin/ cefepime Prognosis poor
[2018-03-19] MEDS: VANCOMYCIN 1 GRAM (PRE-DOCKED) 1,000 MG/250 ML BAG IVPB SCH (10:02)
[2018-03-19] MEDS: CHOLECALCIFEROL (VITAMIN D3) 1,000 UNIT TABLET (FP) NR SCH (10:03)
[2018-03-19] MEDS: THIAMINE HCL 100 MG TABLET (FP) NR SCH (10:03)
[2018-03-19] MEDS: RANITIDINE HCL 150 MG/10 ML UNIT-DOSE PEG SCH ×2 (10:03→22:16)
[2018-03-19] MEDS: ALLOPURINOL 100 MG TABLET (FP) PEG SCH ×2 (10:04→22:17)
[2018-03-19] MEDS: LACTOBACILLUS ACIDOPHILUS 1 TABLET PEG SCH (10:04)
[2018-03-19] MEDS ORDERED: PT OWN MED DRAWER 7, Y5N ONE (10:13)
[2018-03-19] MEDS: RIFAXIMIN 550 MG TABLET (UD) NR SCH ×2 (10:18→22:17)
[2018-03-19] MEDS ORDERED: IBUPROFEN 100 MG/5 ML UNIT DOSE CUPS PEG ONE (10:30)
[2018-03-19] MEDS: METOPROLOL TARTRATE 25 MG TABLET (FP) PEG SCH ×2 (10:50→22:17)
--- NOTE | 2018-03-19 11:20 | PN ---
Progress Note, Physician History of Present Illness: Unresponsive on vent s/p tracheostomy, persistent afib on lopressor off heparin gtt due to Hgb decreases. Post PEG placement, spiking fevers, abx adjusted. - Current Medication List Current Medications: Active Medications Acetaminophen (Tylenol Oral Solution -) 650 mg PEG Q6H PRN PRN Reason: PAIN LEVEL 1 - 3 Last Admin: 03/19/18 06:26 Dose: 650 mg Allopurinol (Zyloprim -) 100 mg PEG BID [facility] Last Admin: 03/19/18 10:04 Dose: 100 mg Cholecalciferol (Vitamin D3 -) 1,000 unit NR DAILY [facility] Last Admin: 03/19/18 10:03 Dose: 1,000 unit Diphenhydramine HCl (Benadryl Injection -) 25 mg IVPB ONCE PRN PRN Reason: DURING PLASMAPHERESIS Dextrose/Sodium Chloride (D5-1/3ns -) 500 mls @ 42 mls/hr IV ASDIR [facility] Last Admin: 03/19/18 08:15 Dose: 42 mls/hr Vancomycin HCl (Vancomycin (Pre-Docked)) 1,000 mg in 250 mls @ 200 mls/hr IVPB DAILY [facility]; Protocol Last Admin: 03/19/18 10:02 Dose: 200 mls/hr Cefepime HCl 2 gm/ Dextrose 100 mls @ 200 mls/hr IVPB BID [facility]; Protocol Lactobacillus Acidophilus (Bacid -) 1 tab PEG DAILY [facility] Last Admin: 03/19/18 10:04 Dose: 1 tab Metoprolol Tartrate (Lopressor -) 25 mg PEG BID [facility] Last Admin: 03/19/18 10:50 Dose: 25 mg Ranitidine HCl (Zantac Oral Solution -) 150 mg PEG BID [facility] Last Admin: 03/19/18 10:03 Dose: 150 mg Rifaximin (Xifaxan -) 550 mg NR BID [facility] Last Admin: 03/19/18 10:18 Dose: 550 mg Thiamine HCl (Vitamin B1 -) 100 mg NR DAILY [facility] Last Admin: 03/19/18 10:03 Dose: 100 mg - Objective Vital Signs: Vital Signs Temperature 102.8 F H 03/19/18 10:21 Pulse Rate 114 H 03/19/18 10:21 Respiratory Rate 22 H 03/19/18 10:21 Blood Pressure 109/68 03/19/18 10:21 O2 Sat by Pulse Oximetry (%) 98 03/19/18 09:54 Constitutional: Yes: No Distress, Calm, Thin Neck: Yes: Other (Chronic tracheostomy) Cardiovascular: Yes: Pulse Irregular Respiratory: Yes: Mechanically Ventilated Gastrointestinal: Yes: Soft, Hypoactive Bowel Sounds Edema: No Labs: CBC, BMP 03/19/18 06:25 03/19/18 06:25 INR, PTT INR 1.69 (0.83-1.09) H 03/15/18 05:30 Fibrinogen 338.0 mg/dL (238-498) D 03/12/18 20:00 Problem List - Problems (1) Atrial fibrillation with RVR Code(s): I48.91 - UNSPECIFIED ATRIAL FIBRILLATION (2) [id number] kidney injury Code(s): N17.9 - ACUTE KIDNEY FAILURE, UNSPECIFIED; N18.9 - CHRONIC KIDNEY DISEASE, UNSPECIFIED Qualifiers: Acute renal failure type: unspecified Chronic kidney disease stage: unspecified stage Qualified Code(s): N17.9 - Acute kidney failure, unspecified ; N18.9 - Chronic kidney disease, unspecified (3) Demand ischemia Code(s): I24.8 - OTHER FORMS OF ACUTE ISCHEMIC HEART DISEASE (4) Hypercalcemia Code(s): E83.52 - HYPERCALCEMIA (5) Nonadherence to medication Code(s): Z91.14 - PATIENT'S OTHER NONCOMPLIANCE WITH MEDICATION REGIMEN (6) Paraproteinemia Code(s): D89.2 - HYPERGAMMAGLOBULINEMIA, UNSPECIFIED (7) Anticoagulant long-term use Code(s): Z79.01 - PENITENTIARY (CURRENT) USE OF ANTICOAGULANTS (8) Chronic thromboembolic disease Code(s): I74.9 - EMBOLISM AND THROMBOSIS OF UNSPECIFIED ARTERY (9) Coronary artery disease Code(s): I25.10 - ATHSCL HEART DISEASE OF [place] CORONARY ARTERY W/O ANG PCTRS Qualifiers: Coronary Disease-Associated Artery/Lesion type: [place] artery [place] vs. transplanted heart: [place] heart Associated angina: without angina Qualified Code(s): I25.10 - Atherosclerotic heart disease of [place] coronary artery without angina pectoris (10) Diastolic dysfunction without heart failure Code(s): I51.9 - HEART DISEASE, UNSPECIFIED (11) HTN (hypertension) Code(s): I10 - ESSENTIAL (PRIMARY) HYPERTENSION Qualifiers: Hypertension type: essential hypertension Qualified Code(s): I10 - Essential (primary) hypertension (12) Hypertrophic cardiomyopathy Code(s): I42.2 - OTHER HYPERTROPHIC CARDIOMYOPATHY (13) Hyperlipidemia Code(s): E78.5 - HYPERLIPIDEMIA, UNSPECIFIED Qualifiers: Hyperlipidemia type: pure hypercholesterolemia Qualified Code(s): E78.00 - Pure hypercholesterolemia, unspecified; E78.0 - Pure hypercholesterolemia (14) Multiple myeloma Code(s): C90.00 - MULTIPLE MYELOMA NOT HAVING ACHIEVED REMISSION Qualifiers: Multiple myeloma remission status: not in remission Qualified Code(s): C90.00 - Multiple myeloma not having achieved remission (15) Acalculous cholecystitis Code(s): K81.9 - CHOLECYSTITIS, UNSPECIFIED Assessment/Plan R&LHc at [facility] 04/20/2016 showing nonobstructive CAD, severe LV apical hypertrophic cardiomyopathy, mildly elevated right sided pressures, Mynx deployed right [employer] access site. 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 Echocardiogram: 10/18/2017 Mod cLVH, severe PURVI, mod TR RVSP 50-60 mmHg, mod- severe MR Echocardiogram: 01/23/2018 Normal LV size with hyperdynamic LVEF 75%, mild BSH, normal RV size and fxn, severe LAE, mod-severe MR, mod TR 1. Chronic respiratory failure/post trach in a patient with history of acute hypoxic respiratory failure, aspiration pneumonia with resolved sepsis syndrome 2. Toxic metabolic encephelopathy, overall no change in status 3. Acute on CKD, suspected myeloma kidney 4. Paraproteinemia confirmed multiple myeloma 5. History of bilateral SFA occlusion post thrombectomy, most likely embolic disease related to persistent atrial fibrillation with [id number] score of 6 6. CAD with evidence of demand ischemic injury, non obstructive CAD on R&LHc coronary angiogrpahy angina pectoris 7. 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 Persistent atrial fibrillation [id number] score of 6 currently on no A/C therapy 9. HTN 10. Anemia/thrombocytopenia, dropping H/H 11. Acalculous Cholecystitis 12. Ischemic hepatitis 13. Hypernatremia 14. Fever, +BC grp D strep v. Enterococcus PLAN: 1. Ideally patient should be A/C unless it is absolutely contraindicated considering his [id number] score of 6 2. Transfuse to maintain Hg equal or > 8.0, as per primary team 3. Continue Lopressor 25 bid, hemodynamics permitting 4. Correction of Hypernatremia with D5 1/3 NS 5. Ventilator management as per the pulmonary team 6. Empiric vancomycin/cefepime per C&S
--- NOTE | 2018-03-19 11:47 | PN ---
Progress Note, Physician History of Present Illness: pulmonary poorly responsive on vent support ac mode,febrile t 102.8 - Current Medication List Current Medications: Active Medications Acetaminophen (Tylenol Oral Solution -) 650 mg PEG Q6H PRN PRN Reason: PAIN LEVEL 1 - 3 Last Admin: 03/19/18 06:26 Dose: 650 mg Allopurinol (Zyloprim -) 100 mg PEG BID [facility] Last Admin: 03/19/18 10:04 Dose: 100 mg Cholecalciferol (Vitamin D3 -) 1,000 unit NR DAILY [facility] Last Admin: 03/19/18 10:03 Dose: 1,000 unit Diphenhydramine HCl (Benadryl Injection -) 25 mg IVPB ONCE PRN PRN Reason: DURING PLASMAPHERESIS Dextrose/Sodium Chloride (D5-1/3ns -) 500 mls @ 42 mls/hr IV ASDIR [facility] Last Admin: 03/19/18 08:15 Dose: 42 mls/hr Vancomycin HCl (Vancomycin (Pre-Docked)) 1,000 mg in 250 mls @ 200 mls/hr IVPB DAILY [facility]; Protocol Last Admin: 03/19/18 10:02 Dose: 200 mls/hr Cefepime HCl 2 gm/ Dextrose 100 mls @ 200 mls/hr IVPB BID [facility]; Protocol Lactobacillus Acidophilus (Bacid -) 1 tab PEG DAILY [facility] Last Admin: 03/19/18 10:04 Dose: 1 tab Metoprolol Tartrate (Lopressor -) 25 mg PEG BID [facility] Last Admin: 03/19/18 10:50 Dose: 25 mg Ranitidine HCl (Zantac Oral Solution -) 150 mg PEG BID [facility] Last Admin: 03/19/18 10:03 Dose: 150 mg Rifaximin (Xifaxan -) 550 mg NR BID [facility] Last Admin: 03/19/18 10:18 Dose: 550 mg Thiamine HCl (Vitamin B1 -) 100 mg NR DAILY [facility] Last Admin: 03/19/18 10:03 Dose: 100 mg - Objective Vital Signs: Vital Signs Temperature 102.8 F H 03/19/18 10:21 Pulse Rate 114 H 03/19/18 10:21 Respiratory Rate 22 H 03/19/18 10:21 Blood Pressure 109/68 03/19/18 10:21 O2 Sat by Pulse Oximetry (%) 98 03/19/18 09:54 Constitutional: Yes: Well Nourished, Other (poorly responsive) Eyes: Yes: WNL HENT: Yes: WNL Neck: Yes: Supple (trach) Cardiovascular: Yes: Pulse Irregular, S1, S2 Respiratory: Yes: Rhonchi (scattered bi rhonchi) Gastrointestinal: Yes: Normal Bowel Sounds, Soft Extremities: Yes: WNL Edema: No Labs: CBC, BMP 03/19/18 06:25 03/19/18 06:25 INR, PTT INR 1.69 (0.83-1.09) H 03/15/18 05:30 Fibrinogen 338.0 mg/dL (238-498) D 03/12/18 20:00 Problem List - Problems (1) Acute hypoxemic respiratory failure Code(s): J96.01 - ACUTE RESPIRATORY FAILURE WITH HYPOXIA (2) Acalculous cholecystitis Code(s): K81.9 - CHOLECYSTITIS, UNSPECIFIED (3) Anemia Code(s): D64.9 - ANEMIA, UNSPECIFIED (4) Atrial fibrillation with RVR Code(s): I48.91 - UNSPECIFIED ATRIAL FIBRILLATION (5) Multiple myeloma Code(s): C90.00 - MULTIPLE MYELOMA NOT HAVING ACHIEVED REMISSION Qualifiers: Multiple myeloma remission status: not in remission Qualified Code(s): C90.00 - Multiple myeloma not having achieved remission (6) Respiratory failure Code(s): J96.90 - RESPIRATORY FAILURE, UNSP, UNSP W HYPOXIA OR HYPERCAPNIA (7) Sepsis Code(s): A41.9 - SEPSIS, UNSPECIFIED ORGANISM (8) Toxic metabolic encephalopathy Code(s): G92 - TOXIC ENCEPHALOPATHY (9) [id number]-lvzpcor kidney injury Code(s): N17.9 - ACUTE KIDNEY FAILURE, UNSPECIFIED; N18.9 - CHRONIC KIDNEY DISEASE, UNSPECIFIED Qualifiers: Acute renal failure type: unspecified Chronic kidney disease stage: unspecified stage Qualified Code(s): N17.9 - Acute kidney failure, unspecified ; N18.9 - Chronic kidney disease, unspecified (10) Persistent atrial fibrillation Code(s): I48.1 - PERSISTENT ATRIAL FIBRILLATION (11) Coronary artery disease Code(s): I25.10 - ATHSCL HEART DISEASE OF [place] CORONARY ARTERY W/O ANG PCTRS Qualifiers: Coronary Disease-Associated Artery/Lesion type: [place] artery [place] vs. transplanted heart: [place] heart Associated angina: without angina Qualified Code(s): I25.10 - Atherosclerotic heart disease of [place] coronary artery without angina pectoris (12) HTN (hypertension) Code(s): I10 - ESSENTIAL (PRIMARY) HYPERTENSION Qualifiers: Hypertension type: essential hypertension Qualified Code(s): I10 - Essential (primary) hypertension (13) Pneumonia Code(s): J18.9 - PNEUMONIA, UNSPECIFIED ORGANISM Assessment/Plan ASSESSMENT AND PLAN: Acute Hypoxic Respiratory Failure s/p Tracheostomy Altered Mental Status Metabolic Encephalopathy Pneumonia Acalculous Cholecystitis Multiple Myeloma Acute on Chronic Renal Failure Metabolic Acidosis LV Diastolic Dysfunction Atrial Fibrillation CAD +Troponins likely Demand Ischemia PAD Hyperlipidemia HTN Anemia - monitor H/H - antibiotics per ID - monitor urine output, creatinine - rate control - holding anticoagulation as he has bled and dropped his H/H this admission - hold sedation to assess mental status - DVT/GI prophylaxis - poor overall prognosis for meaningful recovery - normal transfusion threshold DR BAUER
--- NOTE | 2018-03-19 12:24 | PN ---
Progress Note, Physician Chief Complaint: patient seen and examined temp 102.8 on vent unresponsive h/h dropped didnot get prbc overnight and yesterday bc of persistently elevated temperatures - Current Medication List Current Medications: Active Medications Acetaminophen (Tylenol Oral Solution -) 650 mg PEG Q6H PRN PRN Reason: PAIN LEVEL 1 - 3 Last Admin: 03/19/18 06:26 Dose: 650 mg Allopurinol (Zyloprim -) 100 mg PEG BID [facility] Last Admin: 03/19/18 10:04 Dose: 100 mg Cholecalciferol (Vitamin D3 -) 1,000 unit NR DAILY [facility] Last Admin: 03/19/18 10:03 Dose: 1,000 unit Diphenhydramine HCl (Benadryl Injection -) 25 mg IVPB ONCE PRN PRN Reason: DURING PLASMAPHERESIS Dextrose/Sodium Chloride (D5-1/3ns -) 500 mls @ 42 mls/hr IV ASDIR [facility] Last Admin: 03/19/18 08:15 Dose: 42 mls/hr Vancomycin HCl (Vancomycin (Pre-Docked)) 1,000 mg in 250 mls @ 200 mls/hr IVPB DAILY [facility]; Protocol Last Admin: 03/19/18 10:02 Dose: 200 mls/hr Cefepime HCl 2 gm/ Dextrose 100 mls @ 200 mls/hr IVPB BID [facility]; Protocol Lactobacillus Acidophilus (Bacid -) 1 tab PEG DAILY [facility] Last Admin: 03/19/18 10:04 Dose: 1 tab Metoprolol Tartrate (Lopressor -) 25 mg PEG BID [facility] Last Admin: 03/19/18 10:50 Dose: 25 mg Ranitidine HCl (Zantac Oral Solution -) 150 mg PEG BID [facility] Last Admin: 03/19/18 10:03 Dose: 150 mg Rifaximin (Xifaxan -) 550 mg NR BID [facility] Last Admin: 03/19/18 10:18 Dose: 550 mg Thiamine HCl (Vitamin B1 -) 100 mg NR DAILY [facility] Last Admin: 03/19/18 10:03 Dose: 100 mg - Objective Vital Signs: Vital Signs Temperature 102.8 F H 03/19/18 10:21 Pulse Rate 114 H 03/19/18 10:21 Respiratory Rate 22 H 03/19/18 10:21 Blood Pressure 109/68 03/19/18 10:21 O2 Sat by Pulse Oximetry (%) 98 12/10/18 09:54 Constitutional: Yes: Calm Neck: Yes: Other (trach) Cardiovascular: Yes: S1, S2 Respiratory: Yes: Mechanically Ventilated Gastrointestinal: Yes: Normal Bowel Sounds, Soft, Other ( g tube) Labs: CBC, BMP 03/19/18 06:25 03/19/18 06:25 INR, PTT INR 1.69 (0.83-1.09) H 03/15/18 05:30 Fibrinogen 338.0 mg/dL (238-498) D 03/12/18 20:00 Problem List - Problems (1) Anemia Assessment/Plan: persistent fever despite antipyretic wild get heme eval for anemia multiple myeloma AC stopped bc of drop in h/h Code(s): D64.9 - ANEMIA, UNSPECIFIED (2) Elevated LFTs Assessment/Plan: ultrasound of liver noted suggestive of acalculous cholecystitis, on rifaximin Code(s): R94.5 - ABNORMAL RESULTS OF LIVER FUNCTION STUDIES (3) MELITA (acute kidney injury) Assessment/Plan: MELITA vs ATN- potassium now normal range- hyperkalemia improved on sodium bicarbonate Code(s): N17.9 - ACUTE KIDNEY FAILURE, UNSPECIFIED (4) Atrial fibrillation with RVR Assessment/Plan: off AC because of bleeding h/h dropped rate control with metoprolol (5) Respiratory failure Assessment/Plan: s/p trach off pressors and sedation- now out of icu on med surg floor on cefepime and vanco Code(s): J96.90 - RESPIRATORY FAILURE, UNSP, UNSP W HYPOXIA OR HYPERCAPNIA (6) Toxic metabolic encephalopathy Assessment/Plan: spiking fever positive blood culture Microbiology 03/17/18 18:40 Blood - Peripheral Venous Blood Culture - Preliminary Group D Strep Or Entero Coccus on emperic iv abx Code(s): G92 - TOXIC ENCEPHALOPATHY
[2018-03-19] MEDS: CEFEPIME 2 GM in DEXTROSE 5%-WATER 100 ML IVPB SCH ×2 (12:45→22:18)
[2018-03-19 13:27] LABS: ANISOCYTOSIS 2+; MACROCYTOSIS 2+; PLATELET ESTIMATE DECREASED; ROULEAU 1+
[2018-03-19] MEDS ORDERED: ACETAMINOPHEN 1000 MG/100 ML VIAL (NON FORMULARY) IVPB ONE (15:00)
--- NOTE | 2018-03-19 16:22 | PN ---
Progress Note (short form) - Note Progress Note: PROGRESS NOTE FOR HEMATOLOGY/ONCOLOGY Patient seen and examined by me at bedside Patient trached and pegged Patient continues to have fevers and requires blood transfusions Vital Signs Temperature 101.8 F H 03/19/18 15:00 Pulse Rate 110 H 03/19/18 15:00 Respiratory Rate 18 03/19/18 15:00 Blood Pressure 133/71 03/19/18 15:00 O2 Sat by Pulse Oximetry (%) 98 03/19/18 09:54 GENERAL: Trach and unresponsive LUNGS: Decreased breath sounds throughout HEART: Tachycardic rate and irregular rhythm. ABDOMEN: Soft, nondistended, normoactive bowel sounds EXTREMITIES: (+) edema and anasarca NEUROLOGICAL: Cannot assess secondary to clinical condition. Laboratory Results 03/19/18 06:25 03/19/18 06:25 ASSESSMENT AND PLAN: Patient is a 77 year old male who presented to the hospital after being found unresponsive by his neighbors. Patient had AMS, MELITA, hypercalcemia and admitted for further monitoring and management. Problem List: Altered mental status Toxic metabolic encephalopathy Multiple Myeloma Coagulopathy Hypercalcemia likely from malignancy MELITA on CKD History of alcohol abuse HTN HLD CAD Afib Diastolic Dysfunction Troponinemia Hypertrophic cardiomypoathy (apical) sepsis secondary to RLL pneumonia acute hypoxemic respiratory failure Vitamin D deficiency Plan: -Fevers continue to persist, despite tylenol and motrin. Likely related to central nervous system -Will order Aleve and 50mg IVPB Hydrocortisone -Transfuse 1 unit of PRBC
[2018-03-19 16:27] LABS: BASO % 0.4 % (0-2.0); HEMATOCRIT 20.5 % (35.4-49); HEMOGLOBIN 7.1 GM/dL (11.7-16.9); LYMPH % 22.4 % (8-40); MCH 31.8 pg (25.7-33.7); MCHC 34.5 g/dl (32.0-35.9); MEAN PLT VOLUME 10.2 fl (7.5-11.1); MONO % 5.7 % (3.8-10.2); NEUT % 70.5 % (42.8-82.8); PLATELET COUNT 145 K/MM3 (134-434); RBC 2.22 M/mm3 (4.00-5.60); RDW 16.5 % (11.9-15.9); WHITE BLOOD COUNT 4.7 K/mm3 (4.0-10.0)
[2018-03-19] MEDS ORDERED: HYDROCORTISONE SOD SUCCINATE 100 MG/2 ML VIAL IVPUSH ONE (17:00)
[2018-03-19] MEDS ORDERED: NAPROXEN 250 MG TABLET (FP) PO ONE (17:30)
--- NOTE | 2018-03-19 17:45 | PN ---
Progress Note (short form) - Note Progress Note: Renal follow up for Hypercalcemia/MELITA Pt seen and examined at the bedside on vent via trach, not responsive making urine in diaper as per nurse Vital Signs Temperature 101.8 F H 03/19/18 15:00 Pulse Rate 110 H 03/19/18 15:00 Respiratory Rate 18 03/19/18 15:00 Blood Pressure 133/71 03/19/18 15:00 O2 Sat by Pulse Oximetry (%) 98 03/19/18 09:54 Intake & Output 03/16/18 03/17/18 03/18/18 03/19/18 23:59 23:59 23:59 23:59 Intake Total 600 600 540 990 Output Total 1100 Balance 600 -500 540 990 NAD trace upper extremity and sacral edema CBC, BMP 03/19/18 15:15 03/19/18 06:25 Current Medications Acetaminophen (Tylenol Oral Solution -) 650 mg PEG Q6H PRN PRN Reason: PAIN LEVEL 1 - 3 Last Admin: 03/19/18 13:29 Dose: 650 mg Allopurinol (Zyloprim -) 100 mg PEG BID [facility] Last Admin: 03/19/18 10:04 Dose: 100 mg Cholecalciferol (Vitamin D3 -) 1,000 unit NR DAILY [facility] Last Admin: 03/19/18 10:03 Dose: 1,000 unit Diphenhydramine HCl (Benadryl Injection -) 25 mg IVPB ONCE PRN PRN Reason: DURING PLASMAPHERESIS Dextrose/Sodium Chloride (D5-1/3ns -) 500 mls @ 42 mls/hr IV ASDIR [facility] Last Admin: 03/19/18 13:02 Dose: Not Given Vancomycin HCl (Vancomycin (Pre-Docked)) 1,000 mg in 250 mls @ 200 mls/hr IVPB DAILY [facility]; Protocol Last Admin: 03/19/18 10:02 Dose: 200 mls/hr Cefepime HCl 2 gm/ Dextrose 100 mls @ 200 mls/hr IVPB BID [facility]; Protocol Last Admin: 03/19/18 12:45 Dose: 200 mls/hr Lactobacillus Acidophilus (Bacid -) 1 tab PEG DAILY [facility] Last Admin: 03/19/18 10:04 Dose: 1 tab Metoprolol Tartrate (Lopressor -) 25 mg PEG BID [facility] Last Admin: 03/19/18 10:50 Dose: 25 mg Ranitidine HCl (Zantac Oral Solution -) 150 mg PEG BID [facility] Last Admin: 03/19/18 10:03 Dose: 150 mg Rifaximin (Xifaxan -) 550 mg NR BID [facility] Last Admin: 03/19/18 10:18 Dose: 550 mg Thiamine HCl (Vitamin B1 -) 100 mg NR DAILY [facility] Last Admin: 03/19/18 10:03 Dose: 100 mg 77 year old gentleman with hx of CKD, Afib on A/C, CAD, CKD, Hypertension, Hyperlipidemia, PVD who presented with AMS/Confusion and found to have MELITA. #MELITA ATN vs. 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 tubular injury, US showed no stones or obstruction, UA w/o protein but UPCR ~0.5 indicating non- albumin proteinuria) #AMS #Newly diagnosed multiple myloma #Anemia #Hypercalcemia of Malignancy (PTH is low) #Hyperdense lesion on US of the kidney #Normal anion gap metabolic acidosis #Hyperkalemia (now resolved) Renal function and serum na worsening continue 1/3 NS will increase free water with tube feeds check bladder scan to r/o urinary retention Trend renal function and electrolytes Mack Miller DO
[2018-03-19 18:09] LABS: PLATELET ESTIMATE ADEQUATE
--- NOTE | 2018-03-19 18:17 | PN ---
Teaching Attending Note Name of Resident: Mandy Aldana ATTENDING PHYSICIAN STATEMENT I saw and evaluated the patient. I reviewed the resident's note and discussed the case with the resident. I agree with the resident's findings and plan as documented. ASSESSMENT AND PLAN: 77 y/o with myeloma, altered mental status, renal insufficiency, s/p trach poor neurological status now febrile, anemic trial of aleve/ hydrocortisione ? central fevers PRBC transfusion overaall poor prognisis goals of care discussion with family
[2018-03-20 07:31] LABS: ALBUMIN 1.1 g/dl (3.4-5.0); ALK PHOS 248 U/L (45-117); ANION GAP 3 MMOL/L (8-16); BILIRUBIN,TOTAL 0.8 mg/dL (0.2-1); BLOOD UREA NITROGEN 67 mg/dL (7-18); CHLORIDE 123 mmol/L (98-107); CO2 24 mmol/L (21-32); CREATININE 1.6 mg/dL (0.55-1.3); GLUCOSE,RANDOM 152 mg/dL (74-106); SGOT/AST 140 U/L (15-37); SGPT/ALT 62 U/L (13-61); SODIUM 149 mmol/L (136-145); TOT PROT 8.8 g/dl (6.4-8.2)
[2018-03-20 07:51] LABS: CALCIUM 6.1 mg/dL (8.5-10.1)
[2018-03-20 07:55] LABS: BASO % 0.8 % (0-2.0); EOS % 0.5 % (0-4.5); HEMATOCRIT 24.4 % (35.4-49); HEMOGLOBIN 8.4 GM/dL (11.7-16.9); LYMPH % 14.8 % (8-40); MCH 31.9 pg (25.7-33.7); MCHC 34.6 g/dl (32.0-35.9); MEAN CELL VOLUME 92.3 fl (80-96); MONO % 5.8 % (3.8-10.2); NEUT % 78.1 % (42.8-82.8); PLATELET COUNT 155 K/MM3 (134-434); RBC 2.64 M/mm3 (4.00-5.60); RDW 16.3 % (11.9-15.9); WHITE BLOOD COUNT 6.7 K/mm3 (4.0-10.0)
[2018-03-20] MEDS ORDERED: PT OWN MED DRAWER 7, Y5N ONE (10:42)
[2018-03-20] MEDS: CEFEPIME 2 GM in DEXTROSE 5%-WATER 100 ML IVPB SCH (10:53)
[2018-03-20] MEDS: ALLOPURINOL 100 MG TABLET (FP) PEG SCH ×2 (10:55→21:50)
[2018-03-20] MEDS: THIAMINE HCL 100 MG TABLET (FP) NR SCH (10:55)
[2018-03-20] MEDS: METOPROLOL TARTRATE 25 MG TABLET (FP) PEG SCH ×2 (10:55→21:50)
[2018-03-20] MEDS: RANITIDINE HCL 150 MG/10 ML UNIT-DOSE PEG SCH ×2 (10:55→21:50)
[2018-03-20] MEDS: RIFAXIMIN 550 MG TABLET (UD) NR SCH ×2 (10:55→21:50)
[2018-03-20] MEDS: CHOLECALCIFEROL (VITAMIN D3) 1,000 UNIT TABLET (FP) NR SCH (10:55)
[2018-03-20] MEDS: LACTOBACILLUS ACIDOPHILUS 1 TABLET PEG SCH (10:55)
[2018-03-20] MEDS: VANCOMYCIN 1 GRAM (PRE-DOCKED) 1,000 MG/250 ML BAG IVPB SCH (11:30)
[2018-03-20] MEDS ORDERED: DAPTOMYCIN 600 MG in SODIUM CHLORIDE 50 ML IVPB SCH (11:30)
--- NOTE | 2018-03-20 11:31 | PN ---
Progress Note (short form) - Note Progress Note: Vented on AC Mode, 40% via Trach. Poorly responsive. No change in overall condition. OBJECTIVE: Intake & Output 03/17/18 03/18/18 03/19/18 03/20/18 23:59 23:59 23:59 23:59 Intake Total 386 889 3439 1684 Output Total 1100 Balance -222 945 4637 1684 Last Vital Signs Temp Pulse Resp BP Pulse Ox 99.1 F 114 H 21 H 116/53 L 99 03/20/18 06:00 03/20/18 06:00 03/20/18 06:56 03/20/18 06:00 03/19/18 22:49 Active Medications Acetaminophen (Tylenol Oral Solution -) 650 mg PEG Q6H PRN PRN Reason: PAIN LEVEL 1 - 3 Last Admin: 03/19/18 22:16 Dose: 650 mg Allopurinol (Zyloprim -) 100 mg PEG BID [facility] Last Admin: 03/20/18 10:55 Dose: 100 mg Cholecalciferol (Vitamin D3 -) 1,000 unit NR DAILY [facility] Last Admin: 03/20/18 10:55 Dose: 1,000 unit Diphenhydramine HCl (Benadryl Injection -) 25 mg IVPB ONCE PRN PRN Reason: DURING PLASMAPHERESIS Dextrose/Sodium Chloride (D5-1/3ns -) 500 mls @ 42 mls/hr IV ASDIR [facility] Last Admin: 03/19/18 23:36 Dose: 42 mls/hr Cefepime HCl 2 gm/ Dextrose 100 mls @ 200 mls/hr IVPB BID [facility]; Protocol Last Admin: 03/20/18 10:53 Dose: 200 mls/hr Daptomycin 600 mg/ Sodium (Chloride) 50 mls @ 50 mls/hr IVPB DAILY [facility]; Protocol Lactobacillus Acidophilus (Bacid -) 1 tab PEG DAILY [facility] Last Admin: 03/20/18 10:55 Dose: 1 tab Metoprolol Tartrate (Lopressor -) 25 mg PEG BID [facility] Last Admin: 03/20/18 10:55 Dose: 25 mg Ranitidine HCl (Zantac Oral Solution -) 150 mg PEG BID [facility] Last Admin: 03/20/18 10:55 Dose: 150 mg Rifaximin (Xifaxan -) 550 mg NR BID [facility] Last Admin: 03/20/18 10:55 Dose: 550 mg Thiamine HCl (Vitamin B1 -) 100 mg NR DAILY [facility] Last Admin: 03/20/18 10:55 Dose: 100 mg Gen: Trached, vented, poorly responsive Heart: RRR Lung: scattered rhonchi Abd: soft, nontender Ext: + edema Laboratory Results - last 24 hr 03/18/18 03/19/18 03/19/18 15:47 06:25 15:15 WBC 4.7 RBC 2.22 L Hgb 7.1 L Hct 20.5 L MCV 92.0 MCH 31.8 MCHC 34.5 RDW 16.5 H Plt Count 145 MPV 10.2 Absolute Neuts (auto) 3.3 Neutrophils % 70.5 Neutrophils % (Manual) 61.0 60.0 Band Neutrophils % 10.5 18.0 Lymphocytes % 22.4 Lymphocytes % (Manual) 20.0 14.0 D Monocytes % 5.7 Monocytes % (Manual) 4 D 1 L Eosinophils % 1.0 Eosinophils % (Manual) 1.1 D 4.0 D Basophils % 0.4 Basophils % (Manual) 0.0 0.0 Myelocytes % (Man) 0 D Promyelocytes % (Man) 0 Blast Cells % (Manual) 0 Nucleated RBC % 9 H Metamyelocytes 0 D Hypochromia 0 Platelet Estimate Decreased Adequate Platelet Comment Present Polychromasia 2+ Poikilocytosis 0 Anisocytosis 2+ Microcytosis 1+ Macrocytosis 2+ Rouleaux 1+ Sodium Potassium Chloride Carbon Dioxide Anion Gap BUN Creatinine Creat Clearance w eGFR Random Glucose Calcium Total Bilirubin AST ALT Alkaline Phosphatase Total Protein Albumin Blood Type B POSITIVE Antibody Screen Negative Crossmatch See Detail 03/20/18 03/20/18 06:30 06:30 WBC 6.7 RBC 2.64 L Hgb 8.4 L Hct 24.4 L D MCV 92.3 MCH 31.9 MCHC 34.6 RDW 16.3 H Plt Count 155 MPV 11.0 Absolute Neuts (auto) 5.3 Neutrophils % 78.1 Neutrophils % (Manual) Band Neutrophils % Lymphocytes % 14.8 D Lymphocytes % (Manual) Monocytes % 5.8 Monocytes % (Manual) Eosinophils % 0.5 Eosinophils % (Manual) Basophils % 0.8 Basophils % (Manual) Myelocytes % (Man) Promyelocytes % (Man) Blast Cells % (Manual) Nucleated RBC % 4 H Metamyelocytes Hypochromia Platelet Estimate Platelet Comment Polychromasia Poikilocytosis Anisocytosis Microcytosis Macrocytosis Rouleaux Sodium 149 H Potassium 5.0 Chloride 123 H Carbon Dioxide 24 Anion Gap 3 L BUN 67 H Creatinine 1.6 H Creat Clearance w eGFR 41.90 Random Glucose 152 H Calcium 6.1 L* Total Bilirubin 0.8 AST 140 H ALT 62 H Alkaline Phosphatase 248 H Total Protein 8.8 H Albumin 1.1 L Blood Type Antibody Screen Crossmatch ASSESSMENT AND PLAN: Acute Hypoxic Respiratory Failure: S/P Trach Altered Mental Status Metabolic Encephalopathy Pneumonia Acalculous Cholecystitis Multiple Myeloma Acute on Chronic Renal Failure Metabolic Acidosis LV Diastolic Dysfunction Atrial Fibrillation CAD +Troponins likely Demand Ischemia PAD Hyperlipidemia HTN Anemia - Not a good candidate for wean due to poor mental status - rate control - DVT/GI prophylaxis - Ideally should have compassionate wean due to overall condition Dr Walker
[2018-03-20 11:33] LABS: ANISOCYTOSIS 1+; MACROCYTOSIS 1+; OVALOCYTE 1+
[2018-03-20] MEDS ORDERED: DEXTROSE 5%-WATER - 50 ML IVPB ONE (12:17)
[2018-03-20] MEDS ORDERED: cefTRIAXone SODIUM 1 GM VIAL ONE (12:17)
[2018-03-20] MEDS: CEFTRIAXONE 1 GM in DEXTROSE 5%-WATER - 50 ML IVPB SCH (12:55)
--- NOTE | 2018-03-20 13:18 | PN ---
Progress Note, Physician Chief Complaint: Events noted Moved to floor s/p tracheostomy and PEG History of Present Illness: Patient was seen and examined. Remains on vent support via trache. Chart was reviewed - Current Medication List Current Medications: Active Medications Acetaminophen (Tylenol Oral Solution -) 650 mg PEG Q6H PRN PRN Reason: PAIN LEVEL 1 - 3 Last Admin: 03/19/18 22:16 Dose: 650 mg Allopurinol (Zyloprim -) 100 mg PEG BID [facility] Last Admin: 03/20/18 10:55 Dose: 100 mg Cholecalciferol (Vitamin D3 -) 1,000 unit NR DAILY [facility] Last Admin: 03/20/18 10:55 Dose: 1,000 unit Diphenhydramine HCl (Benadryl Injection -) 25 mg IVPB ONCE PRN PRN Reason: DURING PLASMAPHERESIS Dextrose/Sodium Chloride (D5-1/3ns -) 500 mls @ 42 mls/hr IV ASDIR [facility] Last Admin: 03/19/18 23:36 Dose: 42 mls/hr Daptomycin 600 mg/ Sodium (Chloride) 50 mls @ 50 mls/hr IVPB DAILY [facility]; Protocol Ceftriaxone Sodium 1 gm/ (Dextrose) 50 mls @ 200 mls/hr IVPB DAILY [facility]; Protocol Last Admin: 03/20/18 12:55 Dose: 200 mls/hr Lactobacillus Acidophilus (Bacid -) 1 tab PEG DAILY [facility] Last Admin: 03/20/18 10:55 Dose: 1 tab Metoprolol Tartrate (Lopressor -) 25 mg PEG BID [facility] Last Admin: 03/20/18 10:55 Dose: 25 mg Ranitidine HCl (Zantac Oral Solution -) 150 mg PEG BID [facility] Last Admin: 03/20/18 10:55 Dose: 150 mg Rifaximin (Xifaxan -) 550 mg NR BID [facility] Last Admin: 03/20/18 10:55 Dose: 550 mg Thiamine HCl (Vitamin B1 -) 100 mg NR DAILY [facility] Last Admin: 03/20/18 10:55 Dose: 100 mg - Objective Vital Signs: Vital Signs Temperature 99.1 F 03/20/18 06:00 Pulse Rate 100 H 03/20/18 12:25 Respiratory Rate 21 H 03/20/18 11:10 Blood Pressure 116/53 L 03/20/18 06:00 O2 Sat by Pulse Oximetry (%) 99 03/20/18 12:25 Neck: Yes: Supple Cardiovascular: Yes: Pulse Irregular, S1, S2 Respiratory: Yes: Diminished, Mechanically Ventilated Gastrointestinal: Yes: Normal Bowel Sounds, Soft. No: Tenderness Edema: No Labs: CBC, BMP 03/20/18 06:30 03/20/18 06:30 Problem List - Problems (1) Anemia Code(s): D64.9 - ANEMIA, UNSPECIFIED (2) Hyperlipidemia Code(s): E78.5 - HYPERLIPIDEMIA, UNSPECIFIED Qualifiers: Hyperlipidemia type: pure hypercholesterolemia Qualified Code(s): E78.00 - Pure hypercholesterolemia, unspecified; E78.0 - Pure hypercholesterolemia (3) Multiple myeloma Code(s): C90.00 - MULTIPLE MYELOMA NOT HAVING ACHIEVED REMISSION Qualifiers: Multiple myeloma remission status: not in remission Qualified Code(s): C90.00 - Multiple myeloma not having achieved remission (4) Respiratory failure Code(s): J96.90 - RESPIRATORY FAILURE, UNSP, UNSP W HYPOXIA OR HYPERCAPNIA (5) Sepsis Code(s): A41.9 - SEPSIS, UNSPECIFIED ORGANISM (6) Toxic metabolic encephalopathy Code(s): G92 - TOXIC ENCEPHALOPATHY (7) Dhuan-zc-nmluaum kidney injury Code(s): N17.9 - ACUTE KIDNEY FAILURE, UNSPECIFIED; N18.9 - CHRONIC KIDNEY DISEASE, UNSPECIFIED Qualifiers: Acute renal failure type: unspecified Chronic kidney disease stage: unspecified stage Qualified Code(s): N17.9 - Acute kidney failure, unspecified ; N18.9 - Chronic kidney disease, unspecified (8) Demand ischemia Code(s): I24.8 - OTHER FORMS OF ACUTE ISCHEMIC HEART DISEASE (9) History of ETOH abuse Code(s): Z87.898 - PERSONAL HISTORY OF OTHER SPECIFIED CONDITIONS (10) Nonadherence to medication Code(s): Z91.14 - PATIENT'S OTHER NONCOMPLIANCE WITH MEDICATION REGIMEN (11) Paraproteinemia Code(s): D89.2 - HYPERGAMMAGLOBULINEMIA, UNSPECIFIED (12) Persistent atrial fibrillation Code(s): I48.1 - PERSISTENT ATRIAL FIBRILLATION (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 transplanted heart: [place] heart Associated angina: without angina Qualified Code(s): I25.10 - Atherosclerotic heart disease of [place] coronary artery without angina pectoris (15) Diastolic dysfunction without heart failure Code(s): I51.9 - HEART DISEASE, UNSPECIFIED (16) HTN (hypertension) Code(s): I10 - ESSENTIAL (PRIMARY) HYPERTENSION Qualifiers: Hypertension type: essential hypertension Qualified Code(s): I10 - Essential (primary) hypertension (17) Hypertrophic cardiomyopathy Code(s): I42.2 - OTHER HYPERTROPHIC CARDIOMYOPATHY Assessment/Plan 1. Chronic respiratory failure/post trach in a patient with history of acute hypoxic respiratory failure, aspiration pneumonia with resolved sepsis syndrome 2. Toxic metabolic encephelopathy 3. Acute on CKD, suspected myeloma kidney 4. Paraproteinemia confirmed multiple myeloma 5. History of bilateral SFA occlusion post thrombectomy, most likely embolic disease related to persistent atrial fibrillation with [id number] score of 6 6. CAD with evidence of demand ischemic injury, non obstructive CAD 7. 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 Persistent atrial fibrillation [id number] score of 6 currently on no A/C therapy 9. HTN 10. Anemia/thrombocytopenia 11. Acalculous Cholecystitis 12. Ischemic hepatitis 13. Hypernatremia 14. Sepsis PLAN: 1. Ideally patient should be A/C unless it is absolutely contraindicated considering his [id number] score of 6 2. Transfuse as needed 3. Continue Lopressor 25 mg BID 4. Correct NA 5. Ventilator management via tracheostomy 6. Empiric antibiotic coverage Supportive care Eliel Sam MD
--- NOTE | 2018-03-20 13:20 | PN ---
Progress Note (short form) - Note Progress Note: Renal follow up for Hypercalcemia/MELITA Pt seen and examined at the bedside on vent not responsive no fevers today but was febrile throughout the day yesterday making urine on IVF Vital Signs Temperature 99.1 F 03/20/18 06:00 Pulse Rate 100 H 03/20/18 12:25 Respiratory Rate 21 H 03/20/18 11:10 Blood Pressure 116/53 L 03/20/18 06:00 O2 Sat by Pulse Oximetry (%) 99 03/20/18 12:25 Intake & Output 03/17/18 03/18/18 03/19/18 03/20/18 23:59 23:59 23:59 23:59 Intake Total 047 451 6254 1684 Output Total 1100 Balance -200 625 9679 1684 NAD + upper extremity edema folely in place CBC, BMP 03/20/18 06:30 03/20/18 06:30 Current Medications Acetaminophen (Tylenol Oral Solution -) 650 mg PEG Q6H PRN PRN Reason: PAIN LEVEL 1 - 3 Last Admin: 03/19/18 22:16 Dose: 650 mg Allopurinol (Zyloprim -) 100 mg PEG BID [facility] Last Admin: 03/20/18 10:55 Dose: 100 mg Cholecalciferol (Vitamin D3 -) 1,000 unit NR DAILY [facility] Last Admin: 03/20/18 10:55 Dose: 1,000 unit Diphenhydramine HCl (Benadryl Injection -) 25 mg IVPB ONCE PRN PRN Reason: DURING PLASMAPHERESIS Dextrose/Sodium Chloride (D5-1/3ns -) 500 mls @ 42 mls/hr IV [facility] Last Admin: 03/19/18 23:36 Dose: 42 mls/hr Daptomycin 600 mg/ Sodium (Chloride) 50 mls @ 50 mls/hr IVPB DAILY [facility]; Protocol Ceftriaxone Sodium 1 gm/ (Dextrose) 50 mls @ 200 mls/hr IVPB DAILY [facility]; Protocol Last Admin: 03/20/18 12:55 Dose: 200 mls/hr Lactobacillus Acidophilus (Bacid -) 1 tab PEG DAILY [facility] Last Admin: 03/20/18 10:55 Dose: 1 tab Metoprolol Tartrate (Lopressor -) 25 mg PEG BID [facility] Last Admin: 03/20/18 10:55 Dose: 25 mg Ranitidine HCl (Zantac Oral Solution -) 150 mg PEG BID [facility] Last Admin: 03/20/18 10:55 Dose: 150 mg Rifaximin (Xifaxan -) 550 mg NR BID [facility] Last Admin: 03/20/18 10:55 Dose: 550 mg Thiamine HCl (Vitamin B1 -) 100 mg NR DAILY [facility] Last Admin: 03/20/18 10:55 Dose: 100 mg 77 year old gentleman with hx of CKD, Afib on A/C, CAD, CKD, Hypertension, Hyperlipidemia, PVD who presented with AMS/Confusion and found to have MELITA. #MELITA secondary to ATN now resolved but with secondary injury with peak Cr of 1.6 now #AMS #Newly diagnosed multiple myloma #Anemia #Hypercalcemia of Malignancy (PTH is low) #Hyperdense lesion on US of the kidney #Normal anion gap metabolic acidosis #Hyperkalemia (now resolved) Renal function unchanged in the last 24 hours Bladder scan showed no signs of retention will change IVF to 1/2 NS and increase free water with tube feeds to 50cc per hour Trend renal function and electrolyte heme/onc following continue vent support prognosis is guarded Mack Miller DO
--- NOTE | 2018-03-20 14:28 | PN ---
Progress Note, Physician Chief Complaint: IN BED NOT RESPONDING TO VERBAL STIMULI - Current Medication List Current Medications: Active Medications Acetaminophen (Tylenol Oral Solution -) 650 mg PEG Q6H PRN PRN Reason: PAIN LEVEL 1 - 3 Last Admin: 03/19/18 22:16 Dose: 650 mg Allopurinol (Zyloprim -) 100 mg PEG BID [facility] Last Admin: 03/20/18 10:55 Dose: 100 mg Cholecalciferol (Vitamin D3 -) 1,000 unit NR DAILY [facility] Last Admin: 03/20/18 10:55 Dose: 1,000 unit Diphenhydramine HCl (Benadryl Injection -) 25 mg IVPB ONCE PRN PRN Reason: DURING PLASMAPHERESIS Dextrose/Sodium Chloride (D5-1/3ns -) 500 mls @ 42 mls/hr IV ASDIR [facility] Last Admin: 03/19/18 23:36 Dose: 42 mls/hr Ceftriaxone Sodium 1 gm/ (Dextrose) 50 mls @ 200 mls/hr IVPB DAILY [facility]; Protocol Last Admin: 03/20/18 12:55 Dose: 200 mls/hr Daptomycin 600 mg/ Sodium (Chloride) 50 mls @ 50 mls/hr IVPB DAILY@1400 [facility]; Protocol Lactobacillus Acidophilus (Bacid -) 1 tab PEG DAILY [facility] Last Admin: 03/20/18 10:55 Dose: 1 tab Metoprolol Tartrate (Lopressor -) 25 mg PEG BID [facility] Last Admin: 03/20/18 10:55 Dose: 25 mg Ranitidine HCl (Zantac Oral Solution -) 150 mg PEG BID [facility] Last Admin: 03/20/18 10:55 Dose: 150 mg Rifaximin (Xifaxan -) 550 mg NR BID [facility] Last Admin: 03/20/18 10:55 Dose: 550 mg Thiamine HCl (Vitamin B1 -) 100 mg NR DAILY [facility] Last Admin: 03/20/18 10:55 Dose: 100 mg - Objective Vital Signs: Vital Signs Temperature 99.3 F 03/20/18 13:45 Pulse Rate 102 H 03/20/18 13:45 Respiratory Rate 20 03/20/18 13:45 Blood Pressure 114/83 03/20/18 13:45 O2 Sat by Pulse Oximetry (%) 99 03/20/18 12:25 Constitutional: Yes: Mild Distress Eyes: Yes: Other HENT: Yes: Other Neck: Yes: Other (TRACHEOSTOMY) Cardiovascular: Yes: Pulse Irregular Respiratory: Yes: Mechanically Ventilated Gastrointestinal: Yes: Soft Genitourinary: Yes: Incontinence Musculoskeletal: Yes: Muscle Weakness Extremities: Yes: Other Edema: No Integumentary: Yes: Other Wound/Incision: Yes: Dressing Dry and Intact Neurological: Yes: Confusion, Unresponsive, Weakness ...Motor Strength: LUE, LLE, RUE, RLE Psychiatric: Yes: Other Labs: CBC, BMP 03/20/18 06:30 03/20/18 06:30 INR, PTT INR 1.69 (0.83-1.09) H 03/15/18 05:30 Fibrinogen 338.0 mg/dL (238-498) D 03/12/18 20:00 Problem List - Problems (1) MELITA (acute kidney injury) Code(s): N17.9 - ACUTE KIDNEY FAILURE, UNSPECIFIED (2) Atrial fibrillation with RVR Code(s): I48.91 - UNSPECIFIED ATRIAL FIBRILLATION (3) Hyperlipidemia Code(s): E78.5 - HYPERLIPIDEMIA, UNSPECIFIED Qualifiers: Hyperlipidemia type: pure hypercholesterolemia Qualified Code(s): E78.00 - Pure hypercholesterolemia, unspecified; E78.0 - Pure hypercholesterolemia (4) Hypothermia Code(s): T68.XXXA - HYPOTHERMIA, INITIAL ENCOUNTER Qualifiers: Encounter type: initial encounter Qualified Code(s): T68.XXXA - Hypothermia , initial encounter (5) Eefit-wc-dhyglrs kidney injury Code(s): N17.9 - ACUTE KIDNEY FAILURE, UNSPECIFIED; N18.9 - CHRONIC KIDNEY DISEASE, UNSPECIFIED Qualifiers: Acute renal failure type: unspecified Chronic kidney disease stage: unspecified stage Qualified Code(s): N17.9 - Acute kidney failure, unspecified ; N18.9 - Chronic kidney disease, unspecified (6) Generalized weakness Code(s): R53.1 - WEAKNESS (7) History of ETOH abuse Code(s): Z87.898 - PERSONAL HISTORY OF OTHER SPECIFIED CONDITIONS (8) Hypercalcemia Code(s): E83.52 - HYPERCALCEMIA (9) Hypertrophic cardiomyopathy Code(s): I42.2 - OTHER HYPERTROPHIC CARDIOMYOPATHY (10) Toxic metabolic encephalopathy Code(s): G92 - TOXIC ENCEPHALOPATHY (11) Sepsis Code(s): A41.9 - SEPSIS, UNSPECIFIED ORGANISM (12) Respiratory failure Code(s): J96.90 - RESPIRATORY FAILURE, UNSP, UNSP W HYPOXIA OR HYPERCAPNIA Assessment/Plan NOW VENT DEPENDENT WITH TRACHEOSTOMY EVENTS AND NOTES REVIEWED IV DAPTMYCIN AND CEFTRIAXONE CONTINUE PER ID DVT PROPHYLAXIS WILL NEED SNF WOUND CARE
[2018-03-20 14:53] LABS: PLATELET ESTIMATE ADEQUATE
[2018-03-20] MEDS: DAPTOMYCIN 600 MG in SODIUM CHLORIDE 50 ML IVPB SCH (16:03)
[2018-03-20] MEDS: DEXTROSE 5%-1/3 NS - 500 ML IV SCH (16:06)
[2018-03-21] MEDS: DEXTROSE 5%-1/3 NS - 500 ML IV SCH (04:55)
--- NOTE | 2018-03-21 10:07 | PN ---
Progress Note, Physician Chief Complaint: UNRESPONSIVE IN BED - Current Medication List Current Medications: Active Medications Acetaminophen (Tylenol Oral Solution -) 650 mg PEG Q6H PRN PRN Reason: PAIN LEVEL 1 - 3 Last Admin: 03/19/18 22:16 Dose: 650 mg Allopurinol (Zyloprim -) 100 mg PEG BID [facility] Last Admin: 03/20/18 21:50 Dose: 100 mg Cholecalciferol (Vitamin D3 -) 1,000 unit NR DAILY [facility] Last Admin: 03/20/18 10:55 Dose: 1,000 unit Diphenhydramine HCl (Benadryl Injection -) 25 mg IVPB ONCE PRN PRN Reason: DURING PLASMAPHERESIS Dextrose/Sodium Chloride (D5-1/3ns -) 500 mls @ 42 mls/hr IV ASDIR [facility] Last Admin: 03/21/18 04:55 Dose: 42 mls/hr Ceftriaxone Sodium 1 gm/ (Dextrose) 50 mls @ 200 mls/hr IVPB DAILY [facility]; Protocol Last Admin: 03/20/18 12:55 Dose: 200 mls/hr Daptomycin 600 mg/ Sodium (Chloride) 50 mls @ 50 mls/hr IVPB DAILY@1400 [facility]; Protocol Last Admin: 03/20/18 16:03 Dose: 50 mls/hr Lactobacillus Acidophilus (Bacid -) 1 tab PEG DAILY [facility] Last Admin: 03/20/18 10:55 Dose: 1 tab Metoprolol Tartrate (Lopressor -) 25 mg PEG BID [facility] Last Admin: 03/20/18 21:50 Dose: 25 mg Ranitidine HCl (Zantac Oral Solution -) 150 mg PEG BID [facility] Last Admin: 03/20/18 21:50 Dose: 150 mg Rifaximin (Xifaxan -) 550 mg NR BID [facility] Last Admin: 03/20/18 21:50 Dose: 550 mg Thiamine HCl (Vitamin B1 -) 100 mg NR DAILY [facility] Last Admin: 03/20/18 10:55 Dose: 100 mg - Objective Vital Signs: Vital Signs Temperature 98.7 F 03/21/18 05:00 Pulse Rate 98 H 03/21/18 06:30 Respiratory Rate 26 H 03/21/18 06:35 Blood Pressure 127/73 03/21/18 05:00 O2 Sat by Pulse Oximetry (%) 98 03/21/18 06:30 Constitutional: Yes: Moderate Distress Cardiovascular: Yes: Pulse Irregular Respiratory: Yes: Other (TRACHEOSTOMY) Gastrointestinal: Yes: Soft Musculoskeletal: Yes: Muscle Weakness Labs: CBC, BMP 03/20/18 06:30 03/20/18 06:30 INR, PTT INR 1.69 (0.83-1.09) H 03/15/18 05:30 Fibrinogen 338.0 mg/dL (238-498) D 03/12/18 20:00 Problem List - Problems (1) MELITA (acute kidney injury) Code(s): N17.9 - ACUTE KIDNEY FAILURE, UNSPECIFIED (2) Atrial fibrillation with RVR Code(s): I48.91 - UNSPECIFIED ATRIAL FIBRILLATION (3) Hyperlipidemia Code(s): E78.5 - HYPERLIPIDEMIA, UNSPECIFIED Qualifiers: Hyperlipidemia type: pure hypercholesterolemia Qualified Code(s): E78.00 - Pure hypercholesterolemia, unspecified; E78.0 - Pure hypercholesterolemia (4) Hypothermia Code(s): T68.XXXA - HYPOTHERMIA, INITIAL ENCOUNTER Qualifiers: Encounter type: initial encounter Qualified Code(s): T68.XXXA - Hypothermia , initial encounter (5) Ulpmq-hc-qfdsomb kidney injury Code(s): N17.9 - ACUTE KIDNEY FAILURE, UNSPECIFIED; N18.9 - CHRONIC KIDNEY DISEASE, UNSPECIFIED Qualifiers: Acute renal failure type: unspecified Chronic kidney disease stage: unspecified stage Qualified Code(s): N17.9 - Acute kidney failure, unspecified ; N18.9 - Chronic kidney disease, unspecified (6) Generalized weakness Code(s): R53.1 - WEAKNESS (7) History of ETOH abuse Code(s): Z87.898 - PERSONAL HISTORY OF OTHER SPECIFIED CONDITIONS (8) Hypercalcemia Code(s): E83.52 - HYPERCALCEMIA (9) Hypertrophic cardiomyopathy Code(s): I42.2 - OTHER HYPERTROPHIC CARDIOMYOPATHY (10) Toxic metabolic encephalopathy Code(s): G92 - TOXIC ENCEPHALOPATHY (11) Sepsis Code(s): A41.9 - SEPSIS, UNSPECIFIED ORGANISM (12) Respiratory failure Code(s): J96.90 - RESPIRATORY FAILURE, UNSP, UNSP W HYPOXIA OR HYPERCAPNIA Assessment/Plan NOW VENT DEPENDENT WITH TRACHEOSTOMY EVENTS AND NOTES REVIEWED IV DAPTMYCIN AND CEFTRIAXONE CONTINUE PER ID DVT PROPHYLAXIS WILL NEED SNF/[facility] WOUND CARE
--- NOTE | 2018-03-21 10:54 | PN ---
Progress Note, Physician History of Present Illness: Unresponsive on vent s/p tracheostomy, persistent afib on lopressor off heparin gtt due to Hgb decreases. Afebrile, enteral feeds. - Current Medication List Current Medications: Active Medications Acetaminophen (Tylenol Oral Solution -) 650 mg PEG Q6H PRN PRN Reason: PAIN LEVEL 1 - 3 Last Admin: 03/19/18 22:16 Dose: 650 mg Allopurinol (Zyloprim -) 100 mg PEG BID [facility] Last Admin: 03/20/18 21:50 Dose: 100 mg Cholecalciferol (Vitamin D3 -) 1,000 unit NR DAILY [facility] Last Admin: 03/20/18 10:55 Dose: 1,000 unit Diphenhydramine HCl (Benadryl Injection -) 25 mg IVPB ONCE PRN PRN Reason: DURING PLASMAPHERESIS Dextrose/Sodium Chloride (D5-1/3ns -) 500 mls @ 42 mls/hr IV ASDIR [facility] Last Admin: 03/21/18 04:55 Dose: 42 mls/hr Ceftriaxone Sodium 1 gm/ (Dextrose) 50 mls @ 200 mls/hr IVPB DAILY [facility]; Protocol Last Admin: 03/20/18 12:55 Dose: 200 mls/hr Daptomycin 600 mg/ Sodium (Chloride) 50 mls @ 50 mls/hr IVPB DAILY@1400 [facility]; Protocol Last Admin: 03/20/18 16:03 Dose: 50 mls/hr Lactobacillus Acidophilus (Bacid -) 1 tab PEG DAILY [facility] Last Admin: 03/20/18 10:55 Dose: 1 tab Metoprolol Tartrate (Lopressor -) 25 mg PEG BID [facility] Last Admin: 03/20/18 21:50 Dose: 25 mg Ranitidine HCl (Zantac Oral Solution -) 150 mg PEG BID [facility] Last Admin: 03/20/18 21:50 Dose: 150 mg Rifaximin (Xifaxan -) 550 mg NR BID [facility] Last Admin: 03/20/18 21:50 Dose: 550 mg Thiamine HCl (Vitamin B1 -) 100 mg NR DAILY [facility] Last Admin: 03/20/18 10:55 Dose: 100 mg - Objective Vital Signs: Vital Signs Temperature 98.7 F 03/21/18 05:00 Pulse Rate 98 H 03/21/18 06:30 Respiratory Rate 26 H 03/21/18 06:35 Blood Pressure 127/73 03/21/18 05:00 O2 Sat by Pulse Oximetry (%) 98 03/21/18 06:30 Constitutional: Yes: No Distress, Calm Neck: Yes: Other (Tracheostomy) Cardiovascular: Yes: Pulse Irregular Respiratory: Yes: Mechanically Ventilated, Rhonchi Gastrointestinal: Yes: Normal Bowel Sounds, Soft, Other (PEG) Edema: Yes Labs: CBC, BMP 03/20/18 06:30 03/20/18 06:30 INR, PTT INR 1.69 (0.83-1.09) H 03/15/18 05:30 Fibrinogen 338.0 mg/dL (238-498) D 03/12/18 20:00 Problem List - Problems (1) Atrial fibrillation with RVR Code(s): I48.91 - UNSPECIFIED ATRIAL FIBRILLATION (2) Imnhi-av-aktlavn kidney injury Code(s): N17.9 - ACUTE KIDNEY FAILURE, UNSPECIFIED; N18.9 - CHRONIC KIDNEY DISEASE, UNSPECIFIED Qualifiers: Acute renal failure type: unspecified Chronic kidney disease stage: unspecified stage Qualified Code(s): N17.9 - Acute kidney failure, unspecified ; N18.9 - Chronic kidney disease, unspecified (3) Demand ischemia Code(s): I24.8 - OTHER FORMS OF ACUTE ISCHEMIC HEART DISEASE (4) Hypercalcemia Code(s): E83.52 - HYPERCALCEMIA (5) Nonadherence to medication Code(s): Z91.14 - PATIENT'S OTHER NONCOMPLIANCE WITH MEDICATION REGIMEN (6) Paraproteinemia Code(s): D89.2 - HYPERGAMMAGLOBULINEMIA, UNSPECIFIED (7) Anticoagulant long-term use Code(s): Z79.01 - SENIOR CARE (CURRENT) USE OF ANTICOAGULANTS (8) Chronic thromboembolic disease Code(s): I74.9 - EMBOLISM AND THROMBOSIS OF UNSPECIFIED ARTERY (9) Coronary artery disease Code(s): I25.10 - ATHSCL HEART DISEASE OF [place] CORONARY ARTERY W/O ANG PCTRS Qualifiers: Coronary Disease-Associated Artery/Lesion type: [place] artery [place] vs. transplanted heart: [place] heart Associated angina: without angina Qualified Code(s): I25.10 - Atherosclerotic heart disease of [place] coronary artery without angina pectoris (10) Diastolic dysfunction without heart failure Code(s): I51.9 - HEART DISEASE, UNSPECIFIED (11) HTN (hypertension) Code(s): I10 - ESSENTIAL (PRIMARY) HYPERTENSION Qualifiers: Hypertension type: essential hypertension Qualified Code(s): I10 - Essential (primary) hypertension (12) Hypertrophic cardiomyopathy Code(s): I42.2 - OTHER HYPERTROPHIC CARDIOMYOPATHY (13) Hyperlipidemia Code(s): E78.5 - HYPERLIPIDEMIA, UNSPECIFIED Qualifiers: Hyperlipidemia type: pure hypercholesterolemia Qualified Code(s): E78.00 - Pure hypercholesterolemia, unspecified; E78.0 - Pure hypercholesterolemia (14) Multiple myeloma Code(s): C90.00 - MULTIPLE MYELOMA NOT HAVING ACHIEVED REMISSION Qualifiers: Multiple myeloma remission status: not in remission Qualified Code(s): C90.00 - Multiple myeloma not having achieved remission (15) Acalculous cholecystitis Code(s): K81.9 - CHOLECYSTITIS, UNSPECIFIED Assessment/Plan R&LHc at [facility] 04/20/2016 showing nonobstructive CAD, severe LV apical hypertrophic cardiomyopathy, mildly elevated right sided pressures, Mynx deployed right [employer] access site. 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 Echocardiogram: 10/18/2017 Mod cLVH, severe PURVI, mod TR RVSP 50-60 mmHg, mod- severe MR Echocardiogram: 01/23/2018 Normal LV size with hyperdynamic LVEF 75%, mild BSH, normal RV size and fxn, severe LAE, mod-severe MR, mod TR 1. Chronic respiratory failure/post trach in a patient with history of acute hypoxic respiratory failure, aspiration pneumonia with resolved sepsis syndrome 2. Toxic metabolic encephelopathy 3. Acute on CKD, suspected myeloma kidney 4. Paraproteinemia confirmed multiple myeloma 5. History of bilateral SFA occlusion post thrombectomy, most likely embolic disease related to persistent atrial fibrillation with [id number] score of 6 6. CAD with evidence of demand ischemic injury, non obstructive CAD 7. 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 Persistent atrial fibrillation [id number] score of 6 currently on no A/C therapy 9. HTN 10. Anemia/thrombocytopenia 11. Acalculous Cholecystitis 12. Ischemic hepatitis 13. Hypernatremia improving 14. Group D Strep/Enterococcus bacteremia PLAN: 1. Ideally patient should be A/C unless it is absolutely contraindicated considering his [id number] score of 6, once Hgb stable 2. Transfuse as needed to maintain Hgb>8.0 3. Continue Lopressor 25 mg BID 4. Correct NA 5. Ventilator management via tracheostomy 6. Empiric antibiotic coverage 7. Enteral feeds
[2018-03-21] MEDS ORDERED: cefTRIAXone SODIUM 1 GM VIAL ONE (11:36)
[2018-03-21] MEDS ORDERED: PT OWN MED DRAWER 7, Y5N ONE ×2 (11:36→22:38)
[2018-03-21] MEDS ORDERED: DEXTROSE 5%-WATER - 50 ML IVPB ONE (11:36)
[2018-03-21] MEDS: CEFTRIAXONE 1 GM in DEXTROSE 5%-WATER - 50 ML IVPB SCH (11:38)
[2018-03-21] MEDS: RANITIDINE HCL 150 MG/10 ML UNIT-DOSE PEG SCH ×2 (11:40→22:47)
[2018-03-21] MEDS: ALLOPURINOL 100 MG TABLET (FP) PEG SCH ×2 (11:40→22:46)
[2018-03-21] MEDS: CHOLECALCIFEROL (VITAMIN D3) 1,000 UNIT TABLET (FP) NR SCH (11:40)
[2018-03-21] MEDS: LACTOBACILLUS ACIDOPHILUS 1 TABLET PEG SCH (11:41)
[2018-03-21] MEDS: METOPROLOL TARTRATE 25 MG TABLET (FP) PEG SCH ×2 (11:41→22:45)
[2018-03-21] MEDS: THIAMINE HCL 100 MG TABLET (FP) NR SCH (11:41)
[2018-03-21] MEDS: RIFAXIMIN 550 MG TABLET (UD) NR SCH ×2 (11:41→23:35)
--- NOTE | 2018-03-21 11:59 | PN ---
Progress Note (short form) - Note Progress Note: Renal follow up for Hypercalcemia/MELITA Pt seen and examined at the bedside remains unresponsive making urine into diaper Vital Signs Temperature 98.7 F 03/21/18 05:00 Pulse Rate 94 H 03/21/18 11:44 Respiratory Rate 24 H 03/21/18 10:44 Blood Pressure 127/73 03/21/18 05:00 O2 Sat by Pulse Oximetry (%) 97 03/21/18 11:44 Initial Vital Signs Temp Pulse Resp BP Pulse Ox 96.9 F L 130 H 20 103/82 96 02/06/18 16:36 02/06/18 16:36 02/06/18 16:36 02/06/18 16:36 02/06/18 16:36 NAD not responsive on vent via trach CBC, BMP 03/20/18 06:30 03/20/18 06:30 77 year old gentleman with hx of CKD, Afib on A/C, CAD, CKD, Hypertension, Hyperlipidemia, PVD who presented with AMS/Confusion and found to have MELITA. #MELITA secondary to ATN now resolved but with secondary injury with peak Cr of 1.6 now #AMS #Newly diagnosed multiple myloma #Anemia #Hypercalcemia of Malignancy (PTH is low) #Hyperdense lesion on US of the kidney #Normal anion gap metabolic acidosis #Hyperkalemia (now resolved) Todays labs pending will keep on chivo IVF for now continue free water with tube feeds overall prognosis is guarded Mack Miller DO
--- NOTE | 2018-03-21 12:14 | PN ---
Progress Note, Physician History of Present Illness: Temps down Unresponsive BC VRE - Current Medication List Current Medications: Active Medications Acetaminophen (Tylenol Oral Solution -) 650 mg PEG Q6H PRN PRN Reason: PAIN LEVEL 1 - 3 Last Admin: 03/19/18 22:16 Dose: 650 mg Allopurinol (Zyloprim -) 100 mg PEG BID [facility] Last Admin: 03/21/18 11:40 Dose: 100 mg Cholecalciferol (Vitamin D3 -) 1,000 unit NR DAILY [facility] Last Admin: 03/21/18 11:40 Dose: 1,000 unit Diphenhydramine HCl (Benadryl Injection -) 25 mg IVPB ONCE PRN PRN Reason: DURING PLASMAPHERESIS Dextrose/Sodium Chloride (D5-1/3ns -) 500 mls @ 42 mls/hr IV ASDIR [facility] Last Admin: 03/21/18 04:55 Dose: 42 mls/hr Ceftriaxone Sodium 1 gm/ (Dextrose) 50 mls @ 200 mls/hr IVPB DAILY [facility]; Protocol Last Admin: 03/21/18 11:38 Dose: 200 mls/hr Daptomycin 600 mg/ Sodium (Chloride) 50 mls @ 50 mls/hr IVPB DAILY@1400 [facility]; Protocol Last Admin: 03/20/18 16:03 Dose: 50 mls/hr Lactobacillus Acidophilus (Bacid -) 1 tab PEG DAILY [facility] Last Admin: 03/21/18 11:41 Dose: 1 tab Metoprolol Tartrate (Lopressor -) 25 mg PEG BID [facility] Last Admin: 03/21/18 11:41 Dose: 25 mg Ranitidine HCl (Zantac Oral Solution -) 150 mg PEG BID [facility] Last Admin: 03/21/18 11:40 Dose: 150 mg Rifaximin (Xifaxan -) 550 mg NR BID [facility] Last Admin: 03/21/18 11:41 Dose: 550 mg Thiamine HCl (Vitamin B1 -) 100 mg NR DAILY [facility] Last Admin: 03/21/18 11:41 Dose: 100 mg - Objective Vital Signs: Vital Signs Temperature 98.7 F 03/21/18 05:00 Pulse Rate 94 H 03/21/18 11:44 Respiratory Rate 24 H 03/21/18 10:44 Blood Pressure 127/73 03/21/18 05:00 O2 Sat by Pulse Oximetry (%) 97 03/21/18 11:44 Constitutional: Yes: No Distress Eyes: Yes: Conjunctiva Clear Cardiovascular: Yes: Regular Rate and Rhythm, S1, S2 Respiratory: Yes: Mechanically Ventilated Gastrointestinal: Yes: Normal Bowel Sounds, Soft. No: Tenderness Edema: Yes Labs: CBC, BMP 03/20/18 06:30 03/20/18 06:30 INR, PTT INR 1.69 (0.83-1.09) H 03/15/18 05:30 Fibrinogen 338.0 mg/dL (238-498) D 03/12/18 20:00 Assessment/Plan Respiratory failure S/P tracheostomy Fever +BC VRE Toxic metabolic encephalopathy Renal failure Myeloma Hyperviscosity syndrome Diarrhea Continue daptomycin/ ceftriaxone Repeat BC am Contact precautions
[2018-03-21 13:02] LABS: ANION GAP 6 MMOL/L (8-16); BLOOD UREA NITROGEN 60 mg/dL (7-18); CHLORIDE 124 mmol/L (98-107); CO2 22 mmol/L (21-32); CREATININE 1.3 mg/dL (0.55-1.3); GLUCOSE,RANDOM 132 mg/dL (74-106); POTASSIUM 4.8 mmol/L (3.5-5.1); SODIUM 151 mmol/L (136-145)
--- NOTE | 2018-03-21 13:13 | PN ---
Progress Note, Physician History of Present Illness: pulmonary no change,on vent support ac mode,- resp distress,unresponsive - Current Medication List Current Medications: Active Medications Acetaminophen (Tylenol Oral Solution -) 650 mg PEG Q6H PRN PRN Reason: PAIN LEVEL 1 - 3 Last Admin: 03/19/18 22:16 Dose: 650 mg Allopurinol (Zyloprim -) 100 mg PEG BID [facility] Last Admin: 03/21/18 11:40 Dose: 100 mg Cholecalciferol (Vitamin D3 -) 1,000 unit NR DAILY [facility] Last Admin: 03/21/18 11:40 Dose: 1,000 unit Diphenhydramine HCl (Benadryl Injection -) 25 mg IVPB ONCE PRN PRN Reason: DURING PLASMAPHERESIS Dextrose/Sodium Chloride (D5-1/3ns -) 500 mls @ 42 mls/hr IV ASDIR [facility] Last Admin: 03/21/18 04:55 Dose: 42 mls/hr Ceftriaxone Sodium 1 gm/ (Dextrose) 50 mls @ 200 mls/hr IVPB DAILY [facility]; Protocol Last Admin: 03/21/18 11:38 Dose: 200 mls/hr Daptomycin 600 mg/ Sodium (Chloride) 50 mls @ 50 mls/hr IVPB DAILY@1400 [facility]; Protocol Last Admin: 03/20/18 16:03 Dose: 50 mls/hr Lactobacillus Acidophilus (Bacid -) 1 tab PEG DAILY [facility] Last Admin: 03/21/18 11:41 Dose: 1 tab Metoprolol Tartrate (Lopressor -) 25 mg PEG BID [facility] Last Admin: 03/21/18 11:41 Dose: 25 mg Ranitidine HCl (Zantac Oral Solution -) 150 mg PEG BID [facility] Last Admin: 03/21/18 11:40 Dose: 150 mg Rifaximin (Xifaxan -) 550 mg NR BID [facility] Last Admin: 03/21/18 11:41 Dose: 550 mg Thiamine HCl (Vitamin B1 -) 100 mg NR DAILY [facility] Last Admin: 03/21/18 11:41 Dose: 100 mg - Objective Vital Signs: Vital Signs Temperature 98.7 F 03/21/18 05:00 Pulse Rate 94 H 03/21/18 11:44 Respiratory Rate 24 H 03/21/18 10:44 Blood Pressure 127/73 03/21/18 05:00 O2 Sat by Pulse Oximetry (%) 97 03/21/18 11:44 Constitutional: Yes: Well Nourished, Other ( unresponsive) Eyes: Yes: WNL HENT: Yes: WNL Neck: Yes: Supple (trach) Cardiovascular: Yes: Pulse Irregular, S1, S2 Respiratory: Yes: Rhonchi (scattered rhonchi) Gastrointestinal: Yes: Normal Bowel Sounds, Soft Extremities: Yes: WNL Edema: No Labs: CBC, BMP 03/20/18 06:30 03/21/18 11:55 INR, PTT INR 1.69 (0.83-1.09) H 03/15/18 05:30 Fibrinogen 338.0 mg/dL (238-498) D 03/12/18 20:00 Problem List - Problems (1) Acute hypoxemic respiratory failure Code(s): J96.01 - ACUTE RESPIRATORY FAILURE WITH HYPOXIA (2) Acalculous cholecystitis Code(s): K81.9 - CHOLECYSTITIS, UNSPECIFIED (3) Anemia Code(s): D64.9 - ANEMIA, UNSPECIFIED (4) Atrial fibrillation with RVR Code(s): I48.91 - UNSPECIFIED ATRIAL FIBRILLATION (5) Multiple myeloma Code(s): C90.00 - MULTIPLE MYELOMA NOT HAVING ACHIEVED REMISSION Qualifiers: Multiple myeloma remission status: not in remission Qualified Code(s): C90.00 - Multiple myeloma not having achieved remission (6) Respiratory failure Code(s): J96.90 - RESPIRATORY FAILURE, UNSP, UNSP W HYPOXIA OR HYPERCAPNIA (7) Sepsis Code(s): A41.9 - SEPSIS, UNSPECIFIED ORGANISM (8) Toxic metabolic encephalopathy Code(s): G92 - TOXIC ENCEPHALOPATHY (9) [id number] kidney injury Code(s): N17.9 - ACUTE KIDNEY FAILURE, UNSPECIFIED; N18.9 - CHRONIC KIDNEY DISEASE, UNSPECIFIED Qualifiers: Acute renal failure type: unspecified Chronic kidney disease stage: unspecified stage Qualified Code(s): N17.9 - Acute kidney failure, unspecified ; N18.9 - Chronic kidney disease, unspecified (10) Persistent atrial fibrillation Code(s): I48.1 - PERSISTENT ATRIAL FIBRILLATION (11) Coronary artery disease Code(s): I25.10 - ATHSCL HEART DISEASE OF [place] CORONARY ARTERY W/O ANG PCTRS Qualifiers: Coronary Disease-Associated Artery/Lesion type: [place] artery [place] vs. transplanted heart: [place] heart Associated angina: without angina Qualified Code(s): I25.10 - Atherosclerotic heart disease of [place] coronary artery without angina pectoris (12) HTN (hypertension) Code(s): I10 - ESSENTIAL (PRIMARY) HYPERTENSION Qualifiers: Hypertension type: essential hypertension Qualified Code(s): I10 - Essential (primary) hypertension (13) Pneumonia Code(s): J18.9 - PNEUMONIA, UNSPECIFIED ORGANISM Assessment/Plan ASSESSMENT AND PLAN: Acute Hypoxic Respiratory Failure s/p Tracheostomy Altered Mental Status Metabolic Encephalopathy Pneumonia Acalculous Cholecystitis Multiple Myeloma Acute on Chronic Renal Failure Metabolic Acidosis LV Diastolic Dysfunction Atrial Fibrillation CAD +Troponins likely Demand Ischemia PAD Hyperlipidemia HTN Anemia Bacteremia - monitor H/H - antibiotics per ID - monitor urine output, creatinine - rate control - holding anticoagulation as he has bled and dropped his H/H this admission - DVT/GI prophylaxis - poor overall prognosis for meaningful recovery - normal transfusion threshold DR BAUER
[2018-03-21] MEDS: DAPTOMYCIN 600 MG in SODIUM CHLORIDE 50 ML IVPB SCH (16:02)
[2018-03-21] MEDS: DEXTROSE 5%-WATER - 1,000 ML IV SCH (16:03)
[2018-03-21] MEDS ORDERED: FLU VACCINE QUAD 60 MCG/0.5 ML (MDV 18-19) IM ONE (20:00)
[2018-03-22] MEDS: DEXTROSE 5%-WATER - 1,000 ML IV SCH (06:43)
[2018-03-22 09:55] VITALS: BP 128/79; PULSE 86; TEMP 98.5
[2018-03-22] MEDS ORDERED: cefTRIAXone SODIUM 1 GM VIAL ONE (10:19)
[2018-03-22] MEDS ORDERED: DEXTROSE 5%-WATER - 50 ML IVPB ONE (10:19)
[2018-03-22] MEDS ORDERED: PT OWN MED DRAWER 7, Y5N ONE (10:19)
[2018-03-22] MEDS: RANITIDINE HCL 150 MG/10 ML UNIT-DOSE PEG SCH (10:28)
[2018-03-22] MEDS: ALLOPURINOL 100 MG TABLET (FP) PEG SCH (10:28)
[2018-03-22] MEDS: LACTOBACILLUS ACIDOPHILUS 1 TABLET PEG SCH (10:28)
[2018-03-22] MEDS: RIFAXIMIN 550 MG TABLET (UD) NR SCH (10:28)
[2018-03-22] MEDS: CHOLECALCIFEROL (VITAMIN D3) 1,000 UNIT TABLET (FP) NR SCH (10:29)
[2018-03-22] MEDS: METOPROLOL TARTRATE 25 MG TABLET (FP) PEG SCH (10:29)
[2018-03-22] MEDS: THIAMINE HCL 100 MG TABLET (FP) NR SCH (10:29)
[2018-03-22] MEDS: CEFTRIAXONE 1 GM in DEXTROSE 5%-WATER - 50 ML IVPB SCH (10:29)
--- NOTE | 2018-03-22 10:50 | DS ---
Physical Examination Vital Signs: Vital Signs Temperature 98.5 F 03/22/18 09:54 Pulse Rate 86 03/22/18 09:54 Respiratory Rate 14 03/22/18 09:54 Blood Pressure 128/79 03/22/18 09:54 O2 Sat by Pulse Oximetry (%) 97 03/21/18 19:11 Constitutional: Yes: Mild Distress Cardiovascular: Yes: Pulse Irregular Respiratory: Yes: Mechanically Ventilated (TRACHEOSTOMY) Gastrointestinal: Yes: Soft (GTUBE) Musculoskeletal: Yes: Muscle Weakness Integumentary: Yes: Pressure Ulcer Wound/Incision: Yes: Dressing Dry and Intact Neurological: Yes: Unresponsive Labs: CBC, BMP 03/20/18 06:30 03/21/18 11:55 Discharge Summary Reason For Visit: ACUTE KIDNEY INJURY/CELLULITIS/HYPOTHERMIA Current Active Problems MELITA (acute kidney injury) (Acute) Acalculous cholecystitis (Acute) Acute hypoxemic respiratory failure (Acute) Altered mental status (Acute) Anemia (Acute) Atrial fibrillation with RVR (Acute) Cellulitis (Acute) Elevated LFTs (Acute) Hyperlipidemia (Acute) Hypothermia (Acute) Multiple myeloma (Acute) Pneumonia (Acute) Respiratory failure (Acute) Sepsis (Acute) Toxic metabolic encephalopathy (Acute) Procedures: Principal: CT SCAN Hospital Course: ADMITTED FOR RESP DISTRESS, INTUBATED NEEDING TRACHEOSTOMY AND NOW NEEDING PLACEMENT A FUNCTIONAL QUADRIPLEGIA TREATED ON ANTIBIOTICS, BLOOD PRESSURE SUPPORT, ICU CARE WITH FULL CODE STATUS. Condition: Poor - Instructions Diet, Activity, Other Instructions: GTUBE ABX PER LTAC/ID Disposition: [facility] FACILITY - Home Medications Comprehensive Discharge Medication List: Ambulatory Orders Atorvastatin Ca [Lipitor] 40 mg PO HS #30 tablet 10/19/17 Rivaroxaban [Xarelto -] 20 mg PO DAILY@1800 #30 tablet 10/19/17 Carvedilol [Coreg -] 6.25 mg PO BID #60 tablet 01/24/18 Allopurinol [Zyloprim -] 100 mg PEG BID tablet 03/21/18 Cefepime [Maxipime (Restricted To Id) -] 2 gm IVPB BID vial 03/21/18 Ceftriaxone [Rocephin -] 1 gm IVPB DAILY vial 03/21/18 Cholecalciferol (Vitamin D3) [Vitamin D3 -] 1,000 unit NR DAILY tab 03/21/18 Daptomycin [Cubicin (Restricted To Id) -] 600 mg IVPB DAILY@1400 vial Lactobacillus Acidophilus [Bacid -] 1 tab PEG DAILY tab 03/21/18 Metoprolol Tartrate [Lopressor -] 25 mg PEG BID tablet 03/21/18 Ranitidine Oral Solution [Zantac Oral Solution -] 150 mg PEG BID cup 03/21/18 Rifaximin [Xifaxan -] 550 mg NR BID tablet 03/21/18
[2018-03-22 14:14] LABS: OSMOLALITY,SERUM 344 mosm/kg (278-305)
== END 2018-03-22 13:50 | disposition short-term general hospital (02) | DRG 4 ==
LOC: JER 16:21 → JERBED 20:20 → J4S 23:55 → JICU 02-12 16:56 → J5S 03-15 17:10
PROVIDERS: ADMIT Internal Medicine; ATTEND Family Medicine
PROC: 30233N1 Transfusion of Nonautologous Red Blood Cells into Peripheral Vein, Percutaneous Approach (ICD-10-PCS; 2018-02-09)
PROC: 5A1955Z Respiratory Ventilation, Greater than 96 Consecutive Hours (ICD-10-PCS; 2018-02-12)
PROC: 0BH17EZ Insertion of Endotracheal Airway into Trachea, Via Natural or Artificial Opening (ICD-10-PCS; 2018-02-12)
PROC: 6A551Z3 Pheresis of Plasma, Multiple (ICD-10-PCS; 2018-02-12)
PROC: 3E0G76Z Introduction of Nutritional Substance into Upper GI, Via Natural or Artificial Opening (ICD-10-PCS; 2018-02-13)
PROC: 05HM33Z Insertion of Infusion Device into Right Internal Jugular Vein, Percutaneous Approach (ICD-10-PCS; 2018-02-14)
PROC: B513ZZA Fluoroscopy of Right Jugular Veins, Guidance (ICD-10-PCS; 2018-02-14)
PROC: 30233N1 Transfusion of Nonautologous Red Blood Cells into Peripheral Vein, Percutaneous Approach (ICD-10-PCS; 2018-02-19)
PROC: 0BJ08ZZ Inspection of Tracheobronchial Tree, Via Natural or Artificial Opening Endoscopic (ICD-10-PCS; 2018-03-12)
PROC: 0B113F4 Bypass Trachea to Cutaneous with Tracheostomy Device, Percutaneous Approach (ICD-10-PCS; principal; 2018-03-12 14:00)
PROC: 0DH63UZ Insertion of Feeding Device into Stomach, Percutaneous Approach (ICD-10-PCS; 2018-03-15)
DX: A41.81 Sepsis due to Enterococcus (principal); J96.01 Acute respiratory failure with hypoxia; G92 Toxic encephalopathy; R53.2 Functional quadriplegia; J69.0 Pneumonitis due to inhalation of food and vomit; C90.00 Multiple myeloma not having achieved remission; N17.9 Acute kidney failure, unspecified; I24.8 Other forms of acute ischemic heart disease; I42.2 Other hypertrophic cardiomyopathy; I48.1 Persistent atrial fibrillation; N39.0 Urinary tract infection, site not specified; I48.92 Unspecified atrial flutter; R64 Cachexia; M62.82 Rhabdomyolysis; L03.115 Cellulitis of right lower limb; E87.2 Acidosis; E87.0 Hyperosmolality and hypernatremia; Z99.11 Dependence on respirator [ventilator] status; E72.20 Disorder of urea cycle metabolism, unspecified; D61.818 Other pancytopenia; A41.9 Sepsis, unspecified organism; N18.3 Chronic kidney disease, stage 3 (moderate); I12.9 Hypertensive chronic kidney disease with stage 1 through stage 4 chronic kidney disease, or unspecified chronic kidney disease; E83.52 Hypercalcemia; I73.9 Peripheral vascular disease, unspecified; D89.2 Hypergammaglobulinemia, unspecified; K81.9 Cholecystitis, unspecified; I48.91 Unspecified atrial fibrillation; Z79.01 Long term (current) use of anticoagulants; I48.0 Paroxysmal atrial fibrillation; R73.03 Prediabetes; I25.119 Atherosclerotic heart disease of native coronary artery with unspecified angina pectoris; E78.00 Pure hypercholesterolemia, unspecified; Z87.891 Personal history of nicotine dependence; Z68.31 Body mass index [BMI] 31.0-31.9, adult; E86.0 Dehydration; R68.0 Hypothermia, not associated with low environmental temperature; E88.09 Other disorders of plasma-protein metabolism, not elsewhere classified; I51.9 Heart disease, unspecified; D64.9 Anemia, unspecified; F10.20 Alcohol dependence, uncomplicated; Z91.14 Patient's other noncompliance with medication regimen; Z95.5 Presence of coronary angioplasty implant and graft; I34.0 Nonrheumatic mitral (valve) insufficiency; I36.1 Nonrheumatic tricuspid (valve) insufficiency; R19.7 Diarrhea, unspecified
CPT/HCPCS: 31500; 36415; 36430; 36511; 36600; 70450-TC; 71045-TC-FY; 73610-TC-RT-FY; 73630-TC-RT-FY; 76705-TC; 76775-TC; 76856-TC; 80048; 80053; 80307; 81003; 81015; 82040; 82140; 82272; 82330; 82397; 82550; 82553; 82570; 82607; 82652; 82693; 82728; 82784; 82803; 82977; 83010; 83540; 83550; 83605; 83615; 83735; 83880; 83883; 83930; 83970; 84100; 84134; 84155; 84156; 84157; 84165; 84300; 84443; 84484; 84540; 84550; 85025; 85027; 85384; 85610; 85730; 85810; 86022; 86850; 86900; 86901; 86922; 87040; 87070; 87086; 87186; 87205; 87324; 87449; 87804; 87899; 90688; 93005; 93010; 93926-TC; 93970-TC; 94002; 94640; 99285-25; G0480; J0131; J0878; J1100; J1644; J3489; J7030; P9017; P9038; P9058